=== PATIENT | female | born 1960 | race Caucasian/White ===

== ENCOUNTER 2024-01-18 21:06 | Inpatient (IN) | payer OTHER, SELFPAY ==
[2024-01-18 21:10] VITALS: BP 135/70; O2SAT 98
--- NOTE | 2024-01-18 21:10 | ECG_ITS ---
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
[2024-01-18 21:13] VITALS: BP 135/70; PULSE 75; TEMP 37; O2SAT 96; BMI 32.0
[2024-01-18 21:18] VITALS: PULSE 77
[2024-01-18 22:01] LABS: Bilirubin Urine NEGATIVE (NEGATIVE); Blood Urine MODERATE (NEGATIVE); Clarity Urine CLEAR (CLEAR); Color Urine YELLOW (YELLOW); Glucose Urine UA NEGATIVE (NEGATIVE); Ketones Urine NEGATIVE (NEGATIVE); Leukocyte Esterase Urine NEGATIVE (NEGATIVE); Nitrite Urine NEGATIVE (NEGATIVE); Protein Urine TRACE mg/dL (NEG/TRACE); Specific Gravity Urine 1.025 (1.005-1.025); Urobilinogen Urine 0.2 EU/dL (0.2-1.0); pH Urine 5.5 (5.0-9.0)
[2024-01-18 22:06] LABS: Urine Microscopic Indicated YES
[2024-01-18 22:14] VITALS: BP 116/63; PULSE 74; O2SAT 94
--- NOTE | 2024-01-18 22:15 | CT_ITS ---
[address] [address] Patient Name: AMANDA NORRIS MRN: [id number] date: 1960 Sex: F Assigned Patient Location: ER Current Patient Location: Accession/Order Number: [id number] Exam Date: 01/18/2024 23:09 Report Date: 01/18/2024 23:32 At the request of: MARK AG Procedure: CT abdomen pelvis w con EXAM: CT abdomen pelvis w con REASON FOR EXAM: Female, 63 years, diverticulitis. TECHNIQUE: Computed tomography of the abdomen and pelvis is performed in the axial projection from the lung bases to the pubic symphysis. Sagittal and coronal reconstructed images are performed. Dose reduction techniques were achieved by using automated exposure control and/or adjustment of mA and/or KVP according to patient size and/or use of iterative reconstruction technique. A total of 100 mL Omnipaque 300 IV contrast was given. Study was performed without oral contrast. COMPARISON: None. FINDINGS: Lung bases: The lung bases are clear. There is no pleural effusion. The visualized portions of the heart are unremarkable. Liver: The liver is normal. Gallbladder: The gallbladder is normal. Spleen: The spleen is normal. Pancreas: The pancreas is normal. Adrenal glands: The adrenal glands are normal bilaterally. Right kidney: The kidney is normal in size. Small renal cysts are present. There is no renal calculus or hydronephrosis. Left kidney: The kidney is normal in size. There is no renal calculus or hydronephrosis. Stomach: The stomach is normal. Small bowel: The small bowel is normal. Large bowel: There is extensive diverticulosis. There is focal thickening of the colon wall in the rectosigmoid region, with adjacent inflammatory changes consistent with acute diverticulitis. No abscess or free air. Appendix: The appendix is visualized, and is normal. Aorta: There are mild atherosclerotic calcifications of the abdominal aorta. IVC: The IVC is normal. Retroperitoneum: Normal retroperitoneum. Bladder: The bladder is normal. Pelvic organs: Normal uterus for patient age. Abdominal wall: Normal abdominal wall. Osseous structures: Normal bony structures. CT/CT abdomen pelvis w con IMPRESSION: Acute diverticulitis of the rectosigmoid region. No abscess or free air. No small bowel obstruction or acute renal pathology. Additional nonacute findings, as described above. Electronically authenticated by: EDGARDO ALCALA Date: 01/18/2024 23:32
--- NOTE | 2024-01-18 22:16 | ED.ABDPAIN1 ---
HPI - Abdominal Pain General Chief Complaint: Abdominal Pain Stated Complaint: low bp Time Seen by Provider: 01/18/24 22:04 Source: patient Mode of arrival: Wheelchair Limitations: no limitations History of Present Illness HPI narrative: past history of diverticulitis. Has pain LLQ and flank for 2 days. Seen today by her PCP and states antibiotics were prescribed . 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 Has vomited. States BP at home was low. States fever earlier today while in her doctor's office. no diarrhea Related Data Allergies Allergy/AdvReac Type Severity Reaction Status Date / Time amoxicillin AdvReac Mild Hives Verified 01/18/24 21:12 cefuroxime [From Ceftin] AdvReac Mild Hives Verified 01/18/24 21:12 morphine AdvReac Mild Redness of Verified 01/18/24 21:12 Skin Review of Systems ROS Status of ROS 10 or more systems reviewed and unremarkable except as noted in history and below PFSH PFSH Social History Little interest or pleasure in doing things: not at all Feeling down, depressed, or hopeless: not at all Exam Constitutional Vital Signs, click to edit/add: Last Vital Signs Temp 98.6 F 01/18/24 21:13 Pulse 74 01/18/24 22:14 Resp 18 01/18/24 22:14 BP 116/63 01/18/24 22:14 Pulse Ox 94 L 01/18/24 22:14 O2 Del Method Room Air 01/18/24 22:14 Common normals: no apparent distress, average body habitus, oriented x3, no limitations, healthy appearing, alert and well nourished [facility] Common normals: normocephalic and head/scalp atraumatic Eye Common normals: PERRL, EOMs intact bilaterally and conjunctivae normal Respiratory Common normals: normal respiratory effort, no retractions, no use of accessory muscles and clear to auscultation bilaterally Cardio Common normals: regular rate, regular rhythm, S1 normal heart sound and S2 normal heart sound GI Other: mod LLQ tenderness. no guarding Extremity Common normals: normal to inspection and full ROM Neuro Common normals: oriented x3 and moves all extremities Psych Appearance: grossly normal Course Vital Signs Vital signs: Vital Signs Temperature 98.6 F 01/18/24 21:13 Pulse Rate 75 01/18/24 21:13 Respiratory Rate 18 01/18/24 21:13 Blood Pressure 135/70 01/18/24 21:13 Pulse Oximetry 96 01/18/24 21:13 Oxygen Delivery Method Room Air 01/18/24 21:13 Temperature 98.6 F 01/18/24 21:13 Pulse Rate 74 01/18/24 22:14 Respiratory Rate 18 01/18/24 22:14 Blood Pressure 116/63 01/18/24 22:14 Pulse Oximetry 94 L 01/18/24 22:14 Oxygen Delivery Method Room Air 01/18/24 22:14 MDM - Abdominal Pain MDM Narrative Medical decision making narrative: patient presents with left lower quad pain and tenderness for 2 days. fever earlier today and hypotensive at home. BP normal here. CT with findings of acute diverticulitis. pain controlled with fentanyl. WBC elevated >15,000. Patient still in pain but better. Discussed with the hospitalist and accepted for obs admission Lab Data Labs: Lab Results 01/18/24 01/18/24 Range/Units 21:25 22:25 WBC 15.8 H (4.0-11.0) 10^3/uL RBC 4.15 L (4.20-5.40) 10^6/uL Hgb 12.6 (12.0-16.0) g/dL Hct 37.9 (36.0-48.0) % MCV 91.3 (81.0-99.0) fL MCH 30.4 (26.7-34.0) pg MCHC 33.2 (29.9-35.2) g/dL RDW 12.5 (11.0-15.0) % Plt Count 269 (150-450) 10^3/uL MPV 8.9 L (9.5-13.5) fL Neut % (Auto) 74.6 (43.0-75.0) % Lymph % (Auto) 16.0 L (20.5-60.0) % [place] % (Auto) 7.3 (1.7-12.0) % Eos % (Auto) 0.8 L (0.9-7.0) % Baso % (Auto) 0.6 (0.2-2.0) % Neut # (Auto) 11.8 H (1.4-6.5) 10^3/uL Lymph # (Auto) 2.5 (1.2-3.8) 10^3/uL [place] # (Auto) 1.2 H (0.3-0.8) 10^3/uL Eos # (Auto) 0.1 (0.0-0.7) 10^3/uL Baso # (Auto) 0.1 (0.0-0.1) 10^3/uL Abs Immat Gran (auto) 0.11 H (0.00-0.03) 10^3/uL Imm/Tot Granulo (auto) 0.7 H (0.0-0.5) % Sodium 141 (136-145) mmol/L Potassium 3.0 L (3.5-5.1) mmol/L Chloride 102 (98-107) mmol/L Carbon Dioxide 28.8 (21.0-32.0) mmol/L Anion Gap 13.2 BUN 36.0 H (7.0-18.0) mg/dL Creatinine 1.33 H (0.55-1.02) mg/dL Est GFR ( Amer) 49 L (>=60) Est GFR (Non-Af Amer) 41 L (>=60) BUN/Creatinine Ratio 27.1 Glucose 103 (74-106) mg/dL Lactate 0.5 (0.4-2.0) mmol/L Calcium 9.2 (8.5-10.1) mg/dL Total Bilirubin 0.6 (0.2-1.0) mg/dL AST 9 L (15-37) U/L ALT 20 (14-59) U/L Alkaline Phosphatase 71 (46-116) U/L Troponin I High Sens <4.0 L (4.0-51.3) pg/mL Total Protein 7.3 (6.4-8.2) g/dL Albumin 3.0 L (3.4-5.0) g/dL Globulin 4.3 g/dL Albumin/Globulin Ratio 0.7 Lipase 51.0 (16.0-77.0) U/L Urine Color Yellow (YELLOW) Urine Clarity Clear (CLEAR) Urine pH 5.5 (5.0-9.0) Ur Specific [place] 1.025 (1.005-1.025) Urine Protein Trace (NEG/TRACE) mg/dL Urine Glucose (UA) Negative (NEGATIVE) mg/dL Urine Ketones Negative (NEGATIVE) mg/dL Urine Occult Blood Moderate A (NEGATIVE) Urine Nitrite Negative (NEGATIVE) Urine Bilirubin Negative (NEGATIVE) Urine Urobilinogen 0.2 (0.2-1.0) EU/dL Ur Leukocyte Esterase Negative (NEGATIVE) Urine RBC 0-2 (0-2) #/HPF Urine WBC 0-2 A (NONE SEEN) #/HPF Ur Squamous Epith Cells Few A (NONE/RARE) #/LPF Urine Crystals None seen (None Seen) #/HPF Urine Bacteria Trace A (NONE SEEN) #/HPF Urine Casts Seen A (NONE SEEN) #/LPF Hyaline Casts Few Urine Mucus Trace A (NONE SEEN) Ur Culture Indicated? No Imaging Data Abdominal x-ray: Radiologist's impression: ITS Impressions Abdomen/Pelvis CT 01/18/24 22:15 IMPRESSION: Acute diverticulitis of the rectosigmoid region. No abscess or free air. No small bowel obstruction or acute renal pathology. Additional nonacute findings, as described above. Electronically authenticated by: EDGARDO ALCALA Date: 01/18/2024 23:32 Discharge Plan Discharge Chief Complaint: Abdominal Pain Clinical Impression: Diverticulitis Patient Disposition: Admitted as Observation
[2024-01-18 22:17] LABS: RBC Urine 0-2 #/HPF (0-2); WBC Urine 0-2 #/HPF (NONE SEEN)
[2024-01-18 22:18] LABS: Bacteria Urine TRACE #/HPF (NONE SEEN); Mucus Urine TRACE (NONE SEEN); Squamous Epithelial Cell Urine FEW #/LPF (NONE/RARE)
[2024-01-18 22:19] LABS: Cast Seen? SEEN #/LPF (NONE SEEN); Crystals Seen? None Seen #/HPF (None Seen); Hyaline Casts Urine FEW
[2024-01-18 22:20] LABS: Urine Culture Indicated NO
[2024-01-18 22:36] LABS: Basophils Absolute Auto 0.1 10^3/uL (0.0-0.1); Basophils Percent Auto 0.6 % (0.2-2.0); Eosinophils Absolute Auto 0.1 10^3/uL (0.0-0.7); Eosinophils Percent Auto 0.8 % (0.9-7.0); Hematocrit 37.9 % (36.0-48.0); Hemoglobin 12.6 g/dL (12.0-16.0); Immature Granulocytes Abs Auto 0.11 10^3/uL (0.00-0.03); Immature Granulocytes Pct Auto 0.7 % (0.0-0.5); Lymphocytes Absolute Auto 2.5 10^3/uL (1.2-3.8); Mean Corpuscular HGB Conc 33.2 g/dL (29.9-35.2); Mean Corpuscular Hemoglobin 30.4 pg (26.7-34.0); Mean Corpuscular Volume 91.3 fL (81.0-99.0); Mean Platelet Volume 8.9 fL (9.5-13.5); Monocytes Absolute Auto 1.2 10^3/uL (0.3-0.8); Monocytes Percent Auto 7.3 % (1.7-12.0); Neutrophils Absolute Auto 11.8 10^3/uL (1.4-6.5); Neutrophils Percent Auto 74.6 % (43.0-75.0); Platelet Count 269 10^3/uL (150-450); Red Blood Count 4.15 10^6/uL (4.20-5.40); Red Cell Distribution Width 12.5 % (11.0-15.0); White Blood Count 15.8 10^3/uL (4.0-11.0)
[2024-01-18] MEDS: 0.9 % SODIUM CHLORIDE 1,000 ML 999 ML IV (22:42)
[2024-01-18] MEDS: METRONIDAZOLE/SODIUM CHLORIDE 500 MG/100 ML PREMIX 100 MG IV (22:47)
[2024-01-18 22:51] LABS: Alanine Aminotransferase 20 U/L (14-59); Albumin Globulin Ratio 0.7; Alkaline Phosphatase 71 U/L (46-116); Anion Gap 13.2; Aspartate Amino Transferase 9 U/L (15-37); BUN Creatinine Ratio 27.1; Bilirubin Total 0.6 mg/dL (0.2-1.0); Calcium 9.2 mg/dL (8.5-10.1); Carbon Dioxide 28.8 mmol/L (21.0-32.0); Chloride 102 mmol/L (98-107); Estimated GFR (African America 49 (>=60); Estimated GFR (Non-African Ame 41 (>=60); Globulin 4.3 g/dL; Glucose 103 mg/dL (74-106); Lactate/Lactic Acid 0.5 mmol/L (0.4-2.0); Sodium 141 mmol/L (136-145); Total Protein 7.3 g/dL (6.4-8.2); Troponin I High Sensitivity <4.0 pg/mL (4.0-51.3)
[2024-01-18] MEDS: METOCLOPRAMIDE HCL 10 MG/2 ML VIAL IVP (23:29)
[2024-01-18] MEDS: FENTANYL CITRATE/PF 100 MCG/2 ML VIAL 50 MCG IV (23:30)
[2024-01-19] VITALS (11 sets, daily range): BP systolic 104–132; BP diastolic 55–80; PULSE 69–81; TEMP 36.6–37.1; O2SAT 93–98; BMI 32.6
[2024-01-19] MEDS: CIPROFLOXACIN IN 5 % DEXTROSE 400 MG/200 ML PREMIX 200 MG IV ×3 (00:16→21:37)
[2024-01-19] MEDS: POTASSIUM CHLORIDE IN 0.9%NACL 1,000 ML 125 ML IV (01:33)
[2024-01-19] MEDS: FENTANYL CITRATE/PF 100 MCG/2 ML VIAL 50 MCG IV ×4 (02:58→20:16)
[2024-01-19] MEDS: POTASSIUM CHLORIDE IN WATER 10 MEQ/100 ML PREMIX 100 MEQ IV ×4 (02:59→06:22)
[2024-01-19 05:59] LABS: Basophils Absolute Auto 0.1 10^3/uL (0.0-0.1); Basophils Percent Auto 0.4 % (0.2-2.0); Eosinophils Absolute Auto 0.1 10^3/uL (0.0-0.7); Eosinophils Percent Auto 0.5 % (0.9-7.0); Hematocrit 39.8 % (36.0-48.0); Hemoglobin 12.4 g/dL (12.0-16.0); Immature Granulocytes Abs Auto 0.05 10^3/uL (0.00-0.03); Immature Granulocytes Pct Auto 0.3 % (0.0-0.5); Lymphocytes Absolute Auto 1.8 10^3/uL (1.2-3.8); Lymphocytes Percent Auto 11.5 % (20.5-60.0); Mean Corpuscular HGB Conc 31.2 g/dL (29.9-35.2); Mean Corpuscular Hemoglobin 30.1 pg (26.7-34.0); Mean Corpuscular Volume 96.6 fL (81.0-99.0); Mean Platelet Volume 8.9 fL (9.5-13.5); Monocytes Percent Auto 6.5 % (1.7-12.0); Neutrophils Absolute Auto 12.7 10^3/uL (1.4-6.5); Neutrophils Percent Auto 80.8 % (43.0-75.0); Platelet Count 245 10^3/uL (150-450); Red Blood Count 4.12 10^6/uL (4.20-5.40); Red Cell Distribution Width 12.5 % (11.0-15.0); White Blood Count 15.7 10^3/uL (4.0-11.0)
[2024-01-19] MEDS: OMEPRAZOLE 40 MG CAPSULE.DR PO (05:59)
[2024-01-19 06:12] LABS: Alanine Aminotransferase 18 U/L (14-59); Albumin Globulin Ratio 0.7; Albumin Level 2.8 g/dL (3.4-5.0); Alkaline Phosphatase 67 U/L (46-116); Anion Gap 12.3; Aspartate Amino Transferase 10 U/L (15-37); BUN Creatinine Ratio 33.3; Bilirubin Total 0.6 mg/dL (0.2-1.0); Calcium 8.9 mg/dL (8.5-10.1); Carbon Dioxide 27.5 mmol/L (21.0-32.0); Chloride 106 mmol/L (98-107); Estimated GFR (African America >60 (>=60); Estimated GFR (Non-African Ame >60 (>=60); Glucose 105 mg/dL (74-106); Magnesium 1.6 mg/dL (1.8-2.4); Potassium 3.8 mmol/L (3.5-5.1); Sodium 142 mmol/L (136-145); Total Protein 6.8 g/dL (6.4-8.2)
--- NOTE | 2024-01-19 08:19 | CM.NOTE ---
Rounds made with Dr. Dumont, pt having increased abdominal tenderness and requiring IV pain medications.
--- NOTE | 2024-01-19 09:22 | P.HP_ITS ---
HPI H&P: HPI History of Present Illness Chief complaint: low bp DIVERTICULITIS Narrative: Patient was seen and evaluated in my office yesterday for increasing abdominal pain. She does have a history of diverticulitis. Also had some constipation issues recently. Exam at that time showed no rebound tenderness and no pain in left lower quadrant with palpation of right lower quadrant. Prescriptions were sent to pharmacy. Pain became worse so she presented to the emergency room. CT scan does document the diverticulitis but no rupture. When I saw patient up on the medical surgical floor she had recently been medicated, seems comfortable with her pain after the pain medication was given. Opioid HPI Opioid Management Most Recent Pain and Opioid Data: Last Pain Scale 6 01/19/24 09:43 Last Pain Assessment 01/19/24 09:43 Last ED Pain Assessment 01/19/24 00:07 Last MAR Pain Assessment 01/19/24 08:04 Last ORT Total Score 0 01/19/24 01:44 Last ORT Risk Category Low Risk 01/19/24 01:44 Review of Systems ROS Status of ROS 10 or more systems reviewed and unremark able except as noted in history and below PFSH PFSH Medical History (Updated 01/19/24 @ 01:59 by Debora Robledo RN) HTN (hypertension) ?I10 - Essential (primary) hypertension (ICD-10) Sebaceous cyst ?L72.3 - Sebaceous cyst (ICD-10) Mitral valve prolapse ?I34.1 - Nonrheumatic mitral (valve) prolapse (ICD-10) Migraine ?G43.909 - Migraine, unspecified, not intractable, without status migrainosus (ICD-10) TIA (transient ischemic attack) ?G45.9 - Transient cerebral ischemic attack, unspecified (ICD-10) Surgical History (Updated 01/19/24 @ 01:59 by Debora Robledo RN) Hx of breast reduction, elective ?Z98.890 - Other specified postprocedural states (ICD-10) H/O knee surgery ?Z98.890 - Other specified postprocedural states (ICD-10) Family History (Updated 01/19/24 @ 01:38 by Debora Robledo RN) Brother Family history of CHF (congestive heart failure) Family history of myocardial infarction Mother Family history of COPD (chronic obstructive pulmonary disease) Family history of hypertension Father Family history of cancer Family history of stroke Social History (Updated 01/19/24 @ 01:40 by Debora Robledo RN) Within the past year, how often did you have a drink containing alcohol: monthly or less Within the past year, how many standard drinks containing alcohol did you have on a typical day: 1 or 2 Within the past year, how often did you have six or more drinks on one occasion: less than monthly Total score: 1 Score interpretation: A score less than 3 is consistent with normal alcohol consumption. 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 [employer] Highest level of school completed/degree received: Bachelor's degree Are you now , , , , never or living with a partner: In a typical week, how many times do you talk on the telephone with family, friends, or neighbors: 3 or more times per week How often do you get together with friends or relatives: 3 or more times per week How often do you attend cheondoism or church services: 1-3 times per year Little interest or pleasure in doing things: not at all Feeling down, depressed, or hopeless: not at all Feel stressed/tense/nervous/anxious/difficulty sleeping: to some extent Do you think of yourself as: straight/heterosexual Gender Identity: female Meds Home Medications and Allergies Home Medications ?Medication ?Instructions ?Recorded ?Confirmed ?Type aspirin 81 mg capsule 81 mg PO DAILY 01/19/24 01/19/24 History carvedilol 12.5 mg tablet 12.5 mg PO Q12H 01/19/24 01/19/24 History hydrochlorothiazide 12.5 mg tablet 12.5 mg PO DAILY 01/19/24 01/19/24 History ibuprofen 800 mg tablet 800 mg PO Q8H PRN fever or pain 01/19/24 01/19/24 History lisinopril 40 mg tablet 40 mg PO DAILY 01/19/24 01/19/24 History pantoprazole 40 mg tablet,delayed 40 mg PO DAILY 01/19/24 01/19/24 History release semaglutide 1 mg/dose (4 mg/3 mL) 1 mg subcut .weekly 01/19/24 01/19/24 History subcutaneous pen injector (Ozempic) Allergies Allergy/AdvReac Type Severity Reaction Status Date / Time amoxicillin AdvReac Mild Hives Verified 01/18/24 21:12 cefuroxime [From Ceftin] AdvReac Mild Hives Verified 01/18/24 21:12 morphine AdvReac Mild Redness of Verified 01/18/24 21:12 Skin Exam Constitutional Vital Signs, click to edit/add: Last Vital Signs Temp 98.4 F 01/19/24 08:02 Pulse 74 01/19/24 08:02 Resp 18 01/19/24 08:02 BP 107/61 01/19/24 08:02 Pulse Ox 94 L 01/19/24 08:02 O2 Del Method Room Air 01/19/24 08:02 Documenting provider has reviewed patient's vital signs: yes Common normals: no apparent distress Chest Common normals: inspection of chest normal Respiratory Common normals: normal respiratory effort Cardio Common normals: regular rate and regular rhythm GI Common normals: Normal to inspection, nondistended, normoactive bowel sounds present and soft to palpation; tender Palpation: tender (Pain in left lower quadrant with palpation of right lower quadrant) Details: LLQ Other: Rebound tenderness now present, was not present on exam in office yesterday Neuro Common normals: oriented x3 and CN's II-XII intact bilaterally Results Labs Labs: Short CBC 01/18/24 01/19/24 Range/Units 22:25 05:44 WBC 15.8 H 15.7 H (4.0-11.0) 10^3/uL Hgb 12.6 12.4 (12.0-16.0) g/dL Hct 37.9 39.8 (36.0-48.0) % Plt Count 269 245 (150-450) 10^3/uL BMP 01/18/24 01/19/24 22:25 05:44 Sodium 141 142 Potassium 3.0 L 3.8 Chloride 102 106 Carbon Dioxide 28.8 27.5 BUN 36.0 H 26.0 H Creatinine 1.33 H 0.78 Glucose 103 105 Calcium 9.2 8.9 Liver Function 01/18/24 01/19/24 Range/Units 22:25 05:44 Total Bilirubin 0.6 0.6 (0.2-1.0) mg/dL AST 9 L 10 L (15-37) U/L ALT 20 18 (14-59) U/L Alkaline Phosphatase 71 67 (46-116) U/L Albumin 3.0 L 2.8 L (3.4-5.0) g/dL Urine 01/18/24 Range/Units 21:25 Urine Color Yellow (YELLOW) Urine Clarity Clear (CLEAR) Urine pH 5.5 (5.0-9.0) Ur Specific [place] 1.025 (1.005-1.025) Urine Protein Trace (NEG/TRACE) mg/dL Urine Glucose (UA) Negative (NEGATIVE) mg/dL Assessment and Plan Assessment and Plan (1) Diverticulitis: Plan Admission findings: Mild respiratory distress, leukocytosis, hypokalemia, acute kidney injury with creatinine 170% above baseline secondary to acute diverticulitis with acute abdomen progressed since yesterday's exam in the office with sepsis (respiratory distress, leukocytosis, source of infection diverticulitis) Acute diverticulitis-progressed from yesterday's exam in the office now with acute abdomen which she did not have yesterday. IV antibiotics today. Consider repeat CT scan tomorrow if symptoms become worse. Leukocytosis secondary to the above-monitor daily Hypokalemia-supplemented and improved Acute renal failure with creatinine 170% above baseline-creatinine 0.78 is her baseline, was 1.33 on admission. Hypertension-continue with home medications Morbid obesity-diet management GERD-continue with home medications Admission status: Patient evaluated in office yesterday with abdominal findings consistent with diverticulitis without rupture, she did not have acute abdominal findings yesterday, no rebound tenderness yesterday, no pain in the left lower quadrant with palpation of right lower quadrant, with now present today, acute diverticulitis, she has been n.p.o. overnight, requiring narcotic pain medication for pain control, medically necessary treatment will span 2 midnights. Inpatient status.
[2024-01-19] MEDS: ASPIRIN 81 MG TAB.CHEW PO (09:34)
[2024-01-19] MEDS: LACTATED RINGER'S SOLUTION 1,000 ML 100 ML IV ×2 (09:34→20:16)
[2024-01-19] MEDS: METRONIDAZOLE/SODIUM CHLORIDE 500 MG/100 ML PREMIX 100 MG IV ×2 (09:35→16:09)
[2024-01-19 10:04] LABS: Creatine Kinase 30 U/L (26-192); Creatine Kinase MB <0.50 ng/mL (<=3.60); Troponin I High Sensitivity 5.9 pg/mL (4.0-51.3)
[2024-01-19] MEDS: CARVEDILOL 12.5 MG TABLET PO (20:16)
[2024-01-20] MEDS: METRONIDAZOLE/SODIUM CHLORIDE 500 MG/100 ML PREMIX 100 MG IV ×2 (00:13→08:39)
[2024-01-20 03:42] VITALS: BP 112/68; PULSE 67; TEMP 36.6; O2SAT 96
[2024-01-20] MEDS: OMEPRAZOLE 40 MG CAPSULE.DR PO (06:06)
[2024-01-20 06:29] LABS: Basophils Absolute Auto 0.1 10^3/uL (0.0-0.1); Basophils Percent Auto 1.1 % (0.2-2.0); Eosinophils Absolute Auto 0.1 10^3/uL (0.0-0.7); Eosinophils Percent Auto 1.6 % (0.9-7.0); Hematocrit 36.8 % (36.0-48.0); Hemoglobin 11.9 g/dL (12.0-16.0); Immature Granulocytes Abs Auto 0.04 10^3/uL (0.00-0.03); Immature Granulocytes Pct Auto 0.5 % (0.0-0.5); Lymphocytes Absolute Auto 1.9 10^3/uL (1.2-3.8); Lymphocytes Percent Auto 23.7 % (20.5-60.0); Mean Corpuscular HGB Conc 32.3 g/dL (29.9-35.2); Mean Corpuscular Hemoglobin 29.7 pg (26.7-34.0); Mean Corpuscular Volume 91.8 fL (81.0-99.0); Mean Platelet Volume 8.9 fL (9.5-13.5); Monocytes Absolute Auto 0.6 10^3/uL (0.3-0.8); Monocytes Percent Auto 7.7 % (1.7-12.0); Neutrophils Absolute Auto 5.3 10^3/uL (1.4-6.5); Neutrophils Percent Auto 65.4 % (43.0-75.0); Platelet Count 266 10^3/uL (150-450); Red Blood Count 4.01 10^6/uL (4.20-5.40); Red Cell Distribution Width 12.1 % (11.0-15.0); White Blood Count 8.1 10^3/uL (4.0-11.0)
[2024-01-20 06:38] LABS: Calcium 9.2 mg/dL (8.5-10.1); Carbon Dioxide 26.7 mmol/L (21.0-32.0); Chloride 104 mmol/L (98-107); Estimated GFR (African America >60 (>=60); Estimated GFR (Non-African Ame >60 (>=60); Glucose 101 mg/dL (74-106); Potassium 3.7 mmol/L (3.5-5.1); Sodium 142 mmol/L (136-145)
[2024-01-20 08:00] VITALS: BP 146/89; PULSE 66; TEMP 36.7; O2SAT 94
--- NOTE | 2024-01-20 08:00 | P.DS_ITS ---
DS: Providers Provider Date of admission: 01/19/24 09:57 Primary care physician: Rafael Dumont MD DS: Diagnosis Discharge Diagnosis (1) Diverticulitis: Plan Admission findings: Mild respiratory distress, leukocytosis, hypokalemia, acute kidney injury with creatinine 170% above baseline secondary to acute diverticulitis with acute abdomen progressed since yesterday's exam in the office with sepsis (respiratory distress, leukocytosis, source of infection diverticulitis) Acute diverticulitis-improving but not resolved with time of discharge Leukocytosis secondary to the above-resolved at the time of discharge Hypokalemia-resolved Ears: Acute renal failure with creatinine 170% above baseline-creatinine 0.78 is her baseline, was 1.33 on admission.-Resolved with time of discharge Hypertension-stable at the time of discharge Morbid obesity-diet management GERD-continue with home medications Admission status: Patient evaluated in office yesterday with abdominal findings consistent with diverticulitis without rupture, she did not have acute abdominal findings yesterday, no rebound tenderness yesterday, no pain in the left lower quadrant with palpation of right lower quadrant, with now present today, acute diverticulitis, she has been n.p.o. overnight, requiring narcotic pain medication for pain control, medically necessary treatment will span 2 midnights. Inpatient status. ? DS: Summary Hospital Course Hospital Course: Patient was seen and evaluated in my office the day prior to admission. Placed on Cipro and Flagyl. At that visit she did not have any rebound tenderness and she did not have any pain in the left lower quadrant with palpation of the right lower quadrant. Her pain progressed and presented to the emergency room. In the emergency room found have significant leukocytosis with white blood cell count over 15,000, acute renal failure with creatinine 170% above baseline, significant change in her physical examination with rebound tenderness, pain in left lower quadrant palpation of right lower quadrant. CT scan did not confirm ruptured diverticulitis. With the new findings and deteriorate condition, she was admitted to the hospital for IV antibiotics. Placed inpatient status. Suspected patient would last 3 to 4 days for IV antibiotics. On the day of discharge over she is much improved. She has minimal rebound tenderness, much improved from previous day, and she no longer has pain in the left lower quadrant with palpation of the right lower quadrant. At this point we will give her IV doses in this morning. And discharged to home on oral antibiotics. Medications to this. Follow-up with me in the office in 2 days. Patient made improvement happened more rapidly than expected based on progression of symptoms for 1 day for the next on first day of admission. Status at Discharge Overall status at discharge: patient is not back to baseline Time Spent with Patient Time attestation: Total time spent providing and/or coordinating discharge services: Time spent: greater than 30 minutes Exam Constitutional Vital Signs, click to edit/add: Last Vital Signs Temp 97.8 F 01/20/24 03:42 Pulse 67 01/20/24 03:42 Resp 18 01/20/24 03:42 BP 112/68 01/20/24 03:42 Pulse Ox 96 01/20/24 03:42 O2 Del Method Room Air 01/20/24 03:42 Documenting provider has reviewed patient's vital signs: yes Common normals: no apparent distress Chest Common normals: inspection of chest normal Respiratory Common normals: normal respiratory effort Cardio Common normals: regular rate and regular rhythm GI Common normals: Normal to inspection, nondistended, normoactive bowel sounds present and soft to palpation; tender Palpation: tender (Mini rebound tenderness, no pain in left lower quadrant with palpation of R) Details: LLQ Other: Rebound tenderness now present, was not present on exam in office yesterday Neuro Common normals: oriented x3 and CN's II-XII intact bilaterally DS: Data Data Completed and Pending Labs on day of discharge: Labs from last 24 hours 01/20/24 01/19/24 05:45 05:44 WBC 8.1 RBC 4.01 L Hgb 11.9 L Hct 36.8 MCV 91.8 MCH 29.7 MCHC 32.3 RDW 12.1 Plt Count 266 MPV 8.9 L Neut % (Auto) 65.4 Lymph % (Auto) 23.7 [place] % (Auto) 7.7 Eos % (Auto) 1.6 Baso % (Auto) 1.1 Neut # (Auto) 5.3 Lymph # (Auto) 1.9 [place] # (Auto) 0.6 Eos # (Auto) 0.1 Baso # (Auto) 0.1 Abs Immat Gran (auto) 0.04 H Imm/Tot Granulo (auto) 0.5 Sodium 142 Potassium 3.7 Chloride 104 Carbon Dioxide 26.7 Anion Gap 15.0 BUN 18.0 Creatinine 0.62 Est GFR ( Amer) >60 Est GFR (Non-Af Amer) >60 BUN/Creatinine Ratio 29.0 Glucose 101 Calcium 9.2 Total Creatine Kinase 30 CK-MB (CK-2) <0.50 Troponin I High Sens 5.9 Discharge Plan Discharge Disposition: Home, Self-Care Discharge Medications: New ciprofloxacin HCl [Cipro] 500 mg tablet 500 mg PO Q12H Qty: 20 0RF metronidazole 500 mg tablet 500 mg PO Q8H Qty: 30 0RF Continued carvedilol 12.5 mg tablet 12.5 mg PO Q12H ibuprofen 800 mg tablet 800 mg PO Q8H PRN (Reason: fever or pain) pantoprazole 40 mg tablet,delayed release (DR/EC) 40 mg PO DAILY lisinopril 40 mg tablet 40 mg PO DAILY hydrochlorothiazide 12.5 mg tablet 12.5 mg PO DAILY Ozempic 1 mg/dose (4 mg/3 mL) pen injector 1 mg SUBCUT .weekly aspirin 81 mg capsule 81 mg PO DAILY Print Language: Portuguese Forms: Portal Instructions
[2024-01-20] MEDS: ASPIRIN 81 MG TAB.CHEW PO (08:38)
[2024-01-20] MEDS: CARVEDILOL 12.5 MG TABLET PO (08:38)
[2024-01-20] MEDS: FENTANYL CITRATE/PF 100 MCG/2 ML VIAL 50 MCG IV (08:38)
[2024-01-20] MEDS: LISINOPRIL 20 MG TABLET 40 MG PO (08:38)
[2024-01-20] MEDS: CIPROFLOXACIN IN 5 % DEXTROSE 400 MG/200 ML PREMIX 200 MG IV (10:02)
[2024-01-20 10:43] VITALS: O2SAT 94
--- NOTE | 2024-01-22 13:55 | CM.DCFOLLOWU ---
Person spoke with:patient How are you feeling? well How is your pain?none Did you understand your discharge instructions?yes Do you have any questions about your discharge instructions?no Were you given any prescriptions at discharge?yes Were you able to get your prescriptions filled?yes Do you understand how to take your medications as ordered?yes Do you have any questions about your follow up appointment and do you plan to keep your follow up appointment?no questions, had follow up with Dr. Dumont today Is there anything else that you would like to discuss? no Questions/Comments/Concerns/Other:none
== END 2024-01-20 12:22 | disposition home or self-care (01) | DRG 872 ==
LOC: ER 01-19 00:45 → MS 01-19 01:21
PROVIDERS: Registered Nurse; Admitting Provider Family Medicine; Emergency Provider Internal Medicine; PCP Family Medicine; Visit Provider Family Medicine
DX: A41.9 Sepsis, unspecified organism (principal); K57.32 Diverticulitis of large intestine without perforation or abscess without bleeding; N17.9 Acute kidney failure, unspecified; E87.6 Hypokalemia; I10 Essential (primary) hypertension; E66.01 Morbid (severe) obesity due to excess calories; K21.9 Gastro-esophageal reflux disease without esophagitis; R06.03 Acute respiratory distress; Z68.32 Body mass index [BMI] 32.0-32.9, adult; Z86.73 Personal history of transient ischemic attack (TIA), and cerebral infarction without residual deficits; Z98.890 Other specified postprocedural states; Z79.899 Other long term (current) drug therapy; Z79.82 Long term (current) use of aspirin
CPT/HCPCS: 36415; 74177; 80048; 80053; 81001; 82550; 82553; 83605; 83690; 83735; 84484; 85025; 93005; 94667; 94668; 94761; 96365; 96366; 96367; 96368; 96375; 96376; 99285; J0744; J1836; J2765; J3010; J3480; Q9967

== ENCOUNTER 2024-12-25 07:07 | Outpatient (OUT) | payer OTHER, SELFPAY ==
--- OUTSIDE RECORDS SUMMARY | 2024-12-05 06:13 | XMS_ITS ---
Author Organization [facility] in [place] Address [address] [place] [address] Care Team Providers Care Jewelry Polisher Name Role Phone Les Dumont Primary Care Provider REASON FOR VISIT urine cx Encounters Encounter Location Date Provider Diagnosis [facility] [address] [place] [address] 12/05/2024 Les Dumont UTI (urinary tract infection) N39.0 Assessments Encounter Date Diagnosis (ICD Code) Assessment Notes Treatment Notes Treatment Clinical Notes Section Notes 12/05/2024 UTI (urinary tract infection) (ICD-10 - N39.0) Plan Of Treatment Pending Test Test Name Order Date UA (URINALYSIS, COMPLETE) 12/05/2024 CULTURE URINE 12/05/2024 Progress Notes * JRDidier CAMILOsohail ADOB: 3 (64 yo F)Acc No.[id number]:12/05/2024 Patient: Nancy LYN :1960 A ge:64 Y S ex:Female Address:[address] [place] [address], [phone] Subjective: * Chief Complaints: * U rine cx * Medical History: * Surgical History: * Hospitalization/Major Diagno stic Procedure: * Medications: Objective: * Vitals: * Physical Examination: Assessment: * Assessment: 1. U TI (urinary tract infection) - N39.0 (Primary) Plan: * Treatment: * Procedure Codes: * true * Date: Generated for Printi ng/Renard/Saad on: 0 12/25/2024 07:11 AM EDT
--- OUTSIDE RECORDS SUMMARY | 2024-12-25 07:11 | XMS_ITS | Clinical Summary ---
Author Organization [facility] Address [address] [place] [address] Care Team Providers Care Web Marketing Intern Name Role Phone Rafael Dumont MD Primary Care Provider [phone] Allergies No known active allergies Medications methylPREDNISol one (Medrol Dospak) 4 MG tabletsIndicati ons:DJD (degenerative joint disease), ankle and foot, left Follow schedule on MEDROL PACK package instructions to be used as directed 21 tablet Active Active Problems No known active problems Encounters Date Type Department Care Team Description 11/20/2024 4:10 PM EDT Office Visit [facility] [address] [place] [address] Joseph Cobian, CHRISTO Capsulitis of metatarsophalangeal (MTP) joint of left foot (Primary Dx); Bone spur of left foot; DJD (degenerative joint disease), ankle and foot, left 11/20/2024 Bamboo flowsheet [facility] [address] [place] [address] Joseph Cobian DPM 11/20/2024 Travel 11/13/2024 Abstract [facility] [address] [place] [address] Joseph Cobian DPM 11/06/2024 3:50 PM EDT Office Visit [facility] [address] [place] [phone] Joseph Cobian DPM DJD (degenerative joint disease), ankle and foot, left (Primary Dx); Bone spur of left foot; Capsulitis of metatarsophalangeal (MTP) joint of left foot 11/06/2024 Telephone [facility] [address] [place] [address] Joseph Cobian DPM Casting For Braces Or Orthotics 11/06/2024 Bamboo flowsheet [facility] [address] [place] [address] Joseph Cobian DPM 11/05/2024 Travel from Last 3 Months Family History Relation Name Status Comments Father Mother Alive Social History Tobacco Use Types Packs/Day Years Used Date Smoking Tobacco: Never Smokeless Tobacco: Never Tobacco Cessation:Counseling Given: Yes Alcohol Use Standard Drinks/Week Comments Yes 0 (1 standard drink = 0.6 oz pur e alcohol) Comments Unknown Sex and Gender Information Value Date Recorded Sex Assigned at Not on file Legal Sex Female 7:21 PM EDT Gender Identity Not on file Sexual Orientation Not on file Last Filed Vital Signs Vital Sign [place] Time Taken Comments Blood Pressure 120/74 06/29/2021 12:00 PM EST Pulse - - Temperature - - Respiratory Rate 18 11/20/2024 4:21 PM EDT Oxygen Saturation - - Inhaled Oxygen Concentration - - Weight 97.5 kg (215 lb) 11/20/2024 4:21 PM EDT Height 170.2 cm (5' 7 ) 11/20/2024 4:21 PM EDT Body Mass Index 33.67 11/20/2024 4:21 PM EDT Plan of Treatment Health Maintenance Due Date Last Done Comments CT Colonography 1962 Colonoscopy 1962 Colorectal Cancer Screening 1962 FIT-DNA 1962 FIT 1962 FOBT 1962 Sigmoidoscopy 1962 Pap Smear 1983 Cervical Cancer Screening 1992 HPV/Cotest 1992 Mammogram 12/01/2021 12/01/2020, 11/19/2020 Influenza Vaccine (#1) 2025 02/26/2024, 2022, 01/14/2020 Procedures Procedure Name Priority Date/Time Associated Diagnosis Comments BI MAMMOGRAM DIAGNOSTIC RIGHT Routine 12/01/2020 from Last 3 Months or Most Recently Relevant to Health Maintenance Results * Right diagnostic mammogram (12/01/2020) Anatomical Region Laterality Modality Breast Right Mammography Impressions 12/01/2020 12:00 AM EDT NO MAMMOGRAPHIC EVIDENCE OF MALIGNANCY. ROUTINE FOLLOW-UP IS RECOMMENDED IN ONE YEAR. RESULT CODE: 2 Benign Findings(s) DENSITY CODE: 2 (approximately 25-50% glandular) FOLLOW UP: 1YR The false-negative rate of mammography is approximately 10-percent. Management of a palpable abnormality must be based on clinical grounds. Patient was entered into a reminder system with a target due date for the next mammogram. Impression dictated by: Danette Granger M.D.12/01/2020 7:55 AM Dictation Location: [facility] Transcribed By: [facility] 12/01/20 0755 Dictated By: Danette Granger MD 12/01/20 0749 Signed By: <Electronically signed by MD Danette Granger in [place]> 12/01/20 0755 Narrative 12/01/2020 12:00 AM EDT PERFORMED AT [facility] LOCATION:[address] [place] [address] [place] [address] Mammography Report Signed Patient: Nancy Hooper MR#: [id number] 68 : 1960 Acct:[id number] Age/Sex: 60 / F ADM Date: 12/01/20 Loc: [place] Room: Type: [facility] Attending Dr: Brannon Winter DO Ordering Provider: Brannon Winter DO Date of Service: 12/01/20 MM/MM special view RT w/CAD: ABN EDOUARD Copies to: MD Brannon Zelaya DO CLINICAL DATA: Follow-up nodular asymmetry. Previous breast reduction.. RIGHT DIAGNOSTIC MAMMOGRAMS - FULL FIELD DIGITAL WITH TOMOSYNTHESIS AND CAD Tomosynthesis true lateral and spot compression craniocaudal and mediolateral oblique views of the right breast were obtained using low-dose digital technique. Comparison is made to a prior study from November 19, 2020. This examination was reviewed with the aid of CAD. There are scattered fibroglandular densities. The nodular asymmetry at the superior central breast on the previous exam is not reproduced. Mild postoperative scarring as well as some benign calcifications are present. There are no suspicious masses, typically malignant calcifications or architectural distortion. MM/MM special view RT w/CAD Procedure Note CONVERSION, GENERIC - 11/18/2022 PERFORMED AT [facility] LOCATION:[address] [place] [address] [place] [address] Mammography Report Signed Patient: Nancy Hooper AMR#: [id number] 68 : 1960Acct:[id number] Age/Sex: 60 / FADM Date: 12/01/20 Loc: [place] Room:Type: [facility] Attending Dr: Brannon Winter DO Ordering Provider: Brannon Winter DO Date of Service: 12/01/20 MM/MM special view RT w/CAD: ABN EDOUARD Copies to: MD Brannon Zelaya DO CLINICAL DATA: Follow-up nodular asymmetry. Previous breast reduction.. RIGHT DIAGNOSTIC MAMMOGRAMS - FULL FIELD DIGITAL WITH TOMOSYNTHESIS ANDCAD Tomosynthesis true lateral and spot compression craniocaudal andmediolateral oblique views of the right breast were obtained using low-dose digital technique. Comparisonis made to a prior study from November 19, 2020. This examination was reviewed with the aid of CAD. There are scattered fibroglandular densities. The nodular asymmetry atthe superior central breast on the previous exam is not reproduced. Mild postoperative scarring aswell as some benign calcifications are present. There are no suspicious masses, typicallymalignant calcifications or architectural distortion. MM/MM special view RT w/CAD IMPRESSION: NO MAMMOGRAPHIC EVIDENCE OF MALIGNANCY. ROUTINE FOLLOW-UP IS RECOMMENDED IN ONE YEAR. RESULT CODE: 2 Benign Findings(s) DENSITY CODE: 2 (approximately 25-50% glandular) FOLLOW UP: 1YR The false-negative rate of mammography is approximately 10-percent. Management of a palpable abnormality must be based on clinical grounds. Patient was entered into a reminder system with a target due date for thenext mammogram. Impression dictated by: Danette Granger M.D.12/01/2020 7:55 AM Dictation Location: [facility] Transcribed By: [facility] 12/01/20 0755 Dictated By: Danette Granger MD 12/01/20 0749 Signed By: <Electronically signed by MD Danette Granger in [place]> 12/01/20 0755 Brannon Winter DO IMG BI PROCEDURES Final Resu lt from Last 3 Months or Most Recently Relevant to Health Maintenance Insurance [employer] Care Teams Web Marketing Intern Relationship Specialty Start Date End Date Rafael Dumont MD [address] [place] [address] PCP - General Family Medicine 11/06/24
--- OUTSIDE RECORDS SUMMARY | 2024-12-25 07:11 | XMS_ITS | Encounter Summary ---
Author Organization [facility] Address [address] [place] [address] Phone Care Team Providers Care Glove Wrapper Name Role Phone Rafael Dumont MD Primary Care Provider [phone] Encounter Details Date Type Department Care Team (Late st Contact Info) Description 03/14/2023 Scanned Document [facility] [address] [facility] [address] [place] [phone] Luan Garcia MD [address] [facility] [address] [place] [address] [place] [address] Social History Tobacco Use Types Packs/Day Years Used Date Smoking Tobacco: Never Assessed Comments Unknown Sex and Gender Information Value Date Recorded Sex Assigned at Not on file Legal Sex Female 9:36 AM EST Gender Identity Not on file Sexual Orientation Not on file COVID-19 Exposure Response Date Recorded In the last 10 days, have yo u been in contact with someone who was confirmed or suspected to have Coronavirus/COVID-19? No / Unsure 03/14/2023 11:48 AM EDT documented as of this encounter Plan of Treatment Not on file documented as of this encounter Visit Diagnoses Not on filedocumented in this encounter Care Teams Glove Wrapper Relationship Specialty Start Date End Date Rafael Dumont MD [address] [facility] [place] [address] PCP - General 05/15/99 documented as of this encounter
--- OUTSIDE RECORDS SUMMARY | 2024-12-25 07:11 | XMS_ITS | Clinical Summary ---
Author Organization [facility] Address [address] [place] [address] Care Team Providers Care Warehouse Shipping Associate Name Role Phone Rafael Dumont MD Primary Care Provider [phone] Allergies Active Allergy Reactions Criticality Noted Date Comments Amoxicillin 06/17/2008 Cefuroxime Axetil 06/17/2008 Erythromycin 06/17/2008 Levofloxacin 06/17/2008 Social History Tobacco Use Types Packs/Day Years Used Date Smoking Tobacco: Never Alcohol Use Standard Drinks/Week Comments Not Asked 0 (1 standard drink = 0.6 oz pur e alcohol) Comments No Sex and Gender Information Value Date Recorded Sex Assigned at Not on file Legal Sex Female 8:18 AM EST Gender Identity Not on file Sexual Orientation Not on file Last Filed Vital Signs Vital Sign Reading Time Taken Comments Blood Pressure - - Pulse - - Temperature - - Respiratory Rate - - Oxygen Saturation - - Inhaled Oxygen Concentration - - Weight 99.8 kg (220 lb) 06/17/2008 2:47 PM EST Height 172.7 cm (5' 8 ) 06/17/2008 2:47 PM EST Body Mass Index 33.45 06/17/2008 2:47 PM EST Plan of Treatment Health Maintenance Due Date Last Done Comments Anxiety Screening 1980 Depression Screening 1980 HIV Screening 1980 Hepatitis C Screening 1980 DTaP,Tdap,Td Vaccine (1 - Tdap) 1981 Cervical Cancer Screening [address] Colonography 2007 Cologuard (FIT-DNA) 2007 Colonoscopy 2007 Colorectal Cancer Screening 2007 Diabetes Screening 2007 Fecal Occult Blood 2007 Lipid Screening 2007 Sigmoidoscopy 2007 Pneumococcal Vaccine: 50+ (1 of 1 - PCV) 2012 Shingrix Vaccine (1 of 2) 2012 Influenza Vaccine (#1) 2025 RSV Vaccine (1 - 1-dose 75+ series) 2037 Insurance [facility] PPO Member Subscriber Plan / Payer (Ef fective 2014-Present) Name:Amanda Hooper Relation to Subscriber:Self Name:Amanda Hooper Payer ID:Not on file Type:PPO Address: [place] [phone] Care Teams Warehouse Shipping Associate Relationship Specialty Start Date End Date Rafael Dumont MD PCP - General 06/12/08
--- OUTSIDE RECORDS SUMMARY | 2024-12-25 07:11 | XMS_ITS | Encounter Summary ---
Author Organization [facility] Address [address] [place] [phone] Phone Care Team Providers Care Processing Manager Name Role Phone Rafael Dumont MD Primary Care Provider [phone] Encounter Details Date Type Department Care Team (Late st Contact Info) Description 02/14/2023 Scanned Document [facility] [address] [place] [phone] Scanning, Generic Provider Social History Tobacco Use Types Packs/Day Years [...] suspected to have Coronavirus/COVID-19? No / Unsure 02/14/2023 8:27 AM EDT documented as of this encounter Plan of Treatment Not on file documented as of this encounter Procedures Procedure Name Priority Date/Time Associated Diagnosis Comments OUTSIDE CARDIOLOGY SCAN 02/14/2023 documented in this encounter Results * OUTSIDE CARDIOLOGY SCAN (02/14/2023) Narrative 02/14/2023 Ordered by an unspecified provider. us Generic Provider Scanning OUTSIDE SCAN Final Result documented in this encounter Visit Diagnoses Not on filedocumented in this encounter Care Teams Processing Manager Relationship Specialty Start Date End Date Rafael Dumont MD [address] [place] [address] PCP - General 05/15/99 documented as of this encounter
--- OUTSIDE RECORDS SUMMARY | 2024-12-25 07:12 | XMS_ITS | Patient Health Record ---
Author Organization [facility] [place] Address [address] [place] [address] Care Team Providers Care Pull Over Name Role Phone Les Salamanca Primary Care Provider Allergies Allergen (clinical drug ingredient) Drug/Non Drug Allergy documented on EMR Reaction Allergy Type Onset Date Status sulfamethoxazole / trimethoprim Bactrim rash Drug Allergy Active Ceftin hives Drug Allergy Active topiramate Topamax Multiple Side Effects Drug Allergy Active Vibramycin hives Drug Allergy Active Flu Virus Vaccine hives Drug Allergy Active erythromycin Erythromycin hives Drug Allergy A ctive morphine Morphine swelling Drug Allergy Active Penicillin hives Drug Allergy Active Results Component Value Reference Range Notes CBC AUTO DIFF Reviewed date:01/21/2024 07:52:54 PM Interpretation: Performing Lab: Notes/Report: [facility] , White Blood Count 15.7 4.0-11.0 10 3/uL Red Blood Count 4.12 4.20-5.40 10 6/uL Hemoglobin 12.4 12.0-16.0 g/dL Hematocrit 39.8 36.0-48.0 % Mean Corpuscular Volume 96.6 81.0-99.0 fL Mean Corpuscular Hemoglobin 30.1 26.7-34.0 pg Mean Corpuscular HGB Conc 31.2 29.9-35.2 g/dL Red Cell Distribution Width 12.5 11.0-15.0 % Platelet Count 245 150-450 10 3/uL Mean Platelet Volume 8.9 9.5-13.5 fL Neutrophils Percent Auto 80.8 43.0-75.0 % Lymphocytes Percent Auto 11.5 20.5-60.0 % Monocytes Percent Auto 6.5 1.7-12.0 % Eosinophils Percent Auto 0.5 0.9-7.0 % Basophils Percent Auto 0.4 0.2-2.0 % Immature Granulocytes Pct Auto 0.3 0.0-0.5 % Neutrophils Absolute Auto 12.7 1.4-6.5 10 3/uL Lymphocytes Absolute Auto 1.8 1.2-3.8 10 3/uL Monocytes Absolute Auto 1.0 0.3-0.8 10 3/uL Eosinophils Absolute Auto 0.1 0.0-0.7 10 3/uL Basophils Absolute Auto 0.1 0.0-0.1 10 3/uL Immature Granulocytes Abs Auto 0.05 0.00-0.03 10 3/uL Performing Lab: see note - [facility] CARDIAC ILSA 3-6 Reviewed date:01/21/2024 07:52:54 PM Interpretation: Performing Lab: Notes/Report: [facility] , Creatine Kinase 30 26-192 U/L Creatine Kinase MB <0.50 <=3.60 ng/mL Troponin I High Sensitivity 5.9 4.0-51.3 pg/mL PERCENTILE OF cTnI DISTRIBUTION IN A REFERENCE POPULATION, REFERENCE LIMIT (URL) OF TROPONIN, DEFINED THE 99TH 99TH PERCENTILE = 51.4 PG/ML NOTE: HIGH-SENSITIVITY TROPONIN ASSAY IS NOT INTENDED TO BE CUT-OFF POINTS HAVE BEEN ESTABLISHED BASED ON THE FOURTH UNIVERSAL DEFINITION OF MYOCARDIAL INFARCTION. THE UPPER DIAGNOSIS. WITH OTHER DIAGNOSTIC AND CLINICAL INFORMATION. HAS BEEN CONFIRMED THE DECISION THRESHOLD FOR IA USED IN ISOLATION BUT SHOULD BE INTERPRETED IN CONJUNCTION Performing Lab: see note - [facility] LB CT abdomen pelvis w con Reviewed date:01/21/2024 07:52:55 PM Interpretation: Performing Lab: Notes/Report: Source Facility: [facility] [place] [address] [place] [address] CT Scan Report Signed Patient: NANCY NORRIS MR#: [id number] : 1960 Acct:[id number] Age/Sex: 63 / F ADM Date: 01/18/24 Loc: ER Attending Dr: Ordering Physician: Bryce Ag Date of Service: 01/18/24 Procedure(s): CT abdomen pelvis w con Accession Number(s): [id number] cc: Cecilio Salamanca M.D. [place] [id number] Patient Name: NANCY NORRIS MRN: [id number] date: 1960 Sex: F Assigned Patient Location: ER Current Patient Location: ER Accession/Order Number: [id number] Exam Date: 01/18/2024 23:09 Report Date: 01/18/2024 23:32 At the request of: BRYCE AG Procedure: CT abdomen pelvis w con EXAM: CT abdomen pelvis w con REASON FOR EXAM: Female, 63 years, diverticulitis. TECHNIQUE: Computed tomography of the abdomen and pelvis is performed in the axial projection from the lung bases to the pubic symphysis. Sagittal and coronal reconstructed images are performed. Dose reduction techniques were achieved by using automated exposure control and/or adjustment of mA and/or KVP according to patient size and/or use of iterative reconstruction technique. A total of 100 mL Omnipaque 300 IV contrast was given. Study was performed without oral contrast. COMPARISON: None. FINDINGS: Lung bases: The lung bases are clear. There is no pleural effusion. The visualized portions of the heart are unremarkable. Liver: The liver is normal. Gallbladder: The gallbladder is normal. Spleen: The spleen is normal. Pancreas: The pancreas is normal. Adrenal glands: The adrenal glands are normal bilaterally. Right kidney: The kidney is normal in size. Small renal cysts are present. There is no renal calculus or hydronephrosis. Left kidney: The kidney is normal in size. There is no renal calculus or hydronephrosis. Stomach: The stomach is normal. Small bowel: The small bowel is normal. Large bowel: There is extensive diverticulosis. There is focal thickening of the colon wall in the rectosigmoid region, with adjacent inflammatory changes consistent with acute diverticulitis. No abscess or free air. Appendix: The appendix is visualized, and is normal. Aorta: There are mild atherosclerotic calcifications of the abdominal aorta. IVC: The IVC is normal. Retroperitoneum: Normal retroperitoneum. Bladder: The bladder is normal. Pelvic organs: Normal uterus for patient age. Abdominal wall: Normal abdominal wall. Osseous structures: Normal bony structures. CT/CT abdomen pelvis w con IMPRESSION: Acute diverticulitis of the rectosigmoid region. No abscess or free air. No small bowel obstruction or acute renal pathology. Additional nonacute findings, as described above. Electronically authenticated by: GLENN ALCALA Date: 01/18/2024 23:32 Dictated By: Glenn Alcala M.D. Signed By: 01/18/245 DD/ 31 TD/TT: [employer] President Of Software Development: [place] [address] CT Scan Report Signed Patient: MELISSA NORRIS MR#: [id number] : 1960 Acct:[id number] Age/Sex: 63 / F ADM Date: 01/18/24 Loc: ER Attending Dr: Ordering Physician: Bryce Ag Date of Service: 01/18/24 Procedure(s): CT abd omen pelvis w con Accession Number(s): [id number] cc: Cecilio Salamanca M.D. [place] [id number] Patient Name: NANCY NORRIS MRN: [id number] date: 1960 Sex: F Assigned Patient Loc ation: ER Current Patient Loca tion: ER Accession/Order Numb er: [id number] Exam Date: 01/18/2024 23:09 Report Date: 01/18/2024 23:32 At the request of: BRYCE AG Procedure: CT abdome n pelvis w con EXAM: CT abdomen pel vis w con REASON FOR EXAM: Fem wild, 63 years, diverticulitis. TECHNIQUE: Computed tomography of the abdomen and pelvis is performed in the axial projection fro m the lung bases to the pubic symphysis. Sagittal and coronal reconstructe d images are performed. Dose reduction techniques were achieved by using automated exposure control and/or adjustment of mA and/or KVP according to patient size and/or use of iterative reconstruction technique. A total of 100 mL Omni paque 300 IV contrast was given. Study was performed without oral contrast. COMPARISON: None. FINDINGS: Lung bases: The lung bases are clear. There is no pleural effusion. The visualized portions of the heart are unremarkable. Liver: The liver is normal. Gallbladder: The gallbladder is normal. Spleen: The spleen i s normal. Pancreas: The pancre as is normal. Adrenal glands: The adrenal glands are normal bilaterally. Right kidney: The raysa murguia is normal in size. Small renal cysts are present. There is no renal ca lculus or hydronephrosis. Left kidney: The kati gamez is normal in size. There is no renal calculus or hydronephrosis. Stomach: The stomach is normal. Small bowel: The sma ll bowel is normal. Large bowel: There i s extensive diverticulosis. There is focal thickening of the colon wall in th e rectosigmoid region, with adjacent inflammatory changes consistent with acut e diverticulitis. No abscess or free air. Appendix: The append ix is visualized, and is normal. Aorta: There are mil d atherosclerotic calcifications of the abdominal aorta. IVC: The IVC is normal. Retroperitoneum: Nor mal retroperitoneum. Bladder: The bladder is normal. Pelvic organs: Meme l uterus for patient age. Abdominal wall: Norm al abdominal wall. Osseous structures: Normal bony structures. C T/CT abdomen pelvis w con IMPRESSION: Acute diverticulitis of the rectosigmoid region. No abscess or free air. No small bowel obstr uction or acute renal pathology. Additional nonacute findings, as described above. Electronically authenticated by: GLENN ALCALA Date: 01/18/2024 23:32 Dictated By: Glenn Alcala M.D. Signed By: 01/18/24 2335 DD/ 233 TD/TT: [employer] President Of Software Development: ECG 12 lead Reviewed date:01/21/2024 07:52:55 PM Interpretation: Performing Lab: Notes/Report: Source Facility: [facility]-[address] [place] [address] [place] [address] Electrocardiograph Report Signed Patient: NANCY NORRIS MR#: [id number] : 1960 Acct:[id number] Age/Sex: 63 / F ADM Date: 01/18/24 Loc: [place] 219-[address]: Cecilio Salamanca M.D. 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 Signed By: 01/19/241845 DD/ 17 TD/TT: Vice President Of Software Development: [place] [address] Electrocardiograph Report Signed Patient: MELISSA NORRIS MR#: [id number] : 1960 Acct:[id number] Age/Sex: 63 / F ADM Date: 01/18/24 Loc: [place] 219-[address]: Ladan Salamanca M.D. 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1960 Requ ested By: CECILIO SALAMANCA Order Number: [id number] Reading MD: PIOTR HOPKINS Measurements Intervals Lincoln Rate: 73 P: 40 NC: 182 QRS: 34 QRSD: 84 T: 34 QT: 392 QTc: 417 Interpretive Statements 1100 Sinus rhythm 3314 Cannot rule out anterolateral myocardial infarction, age undetermined 27916 Possible infer ior myocardial infarction with posterior extension, age undetermined 8102 Low QRS voltage in chest leads 9150 abnormal ECG Electronically Alem d On 01-19-2024 18:45:59 EDT by PIOTR HOPKINS Dictated By: Wood Hopkins D.Pedro Signed By: 01/19/241845 DD/ 17 TD/TT: Vice President Of Software Development: LACTATE or LACTIC ACID Reviewed date:01/21/2024 07:52:55 PM Interpretation: Performing Lab: Notes/Report: [facility] , Lactate/Lactic Acid 0.5 0.4-2.0 mmol/L Performing Lab: see note ML - [facility] LB PROF CHEM 8 (BAS METB) Reviewed date:01/21/2024 07:52:54 PM Interpretation: Performing Lab: Notes/Report: [facility] , Sodium 142 136-145 mmol/L Potassium 3.7 3.5-5.1 mmol/L Chloride 104 98-107 mmol/L Carbon Dioxide 26.7 21.0-32.0 mmol/L Anion Gap 15.0 Glucose 101 74-106 mg/dL Blood Urea Nitrogen 18.0 7.0-18.0 mg/dL Creatinine 0.62 0.55-1.02 mg/dL Estimated GFR ( Moon >60 >=60 Estimated GFR (Non- Shantelle >60 >=60 BUN Creatinine Ratio 29.0 Calcium 9.2 8.5-10.1 mg/dL Performing Lab: see note ML - [facility] LB PROF 14(COMP METB) Reviewed date:01/21/2024 07:52:55 PM Interpretation: Performing Lab: Notes/Report: [facility] , Sodium 142 136-145 mmol/L Potassium 3.8 3.5-5.1 mmol/L Chloride 106 98-107 mmol/L Carbon Dioxide 27.5 21.0-32.0 mmol/L Anion Gap 12.3 Glucose 105 74-106 mg/dL Blood Urea Nitrogen 26.0 7.0-18.0 mg/dL Creatinine 0.78 0.55-1.02 mg/dL Estimated GFR ( Moon >60 >=60 Estimated GFR (Non- Shantelle >60 >=60 BUN Creatinine Ratio 33.3 Calcium 8.9 8.5-10.1 mg/dL Bilirubin Total 0.6 0.2-1.0 mg/dL Aspartate Amino Transferase 10 15-37 U/L Alanine Aminotransferase 18 14-59 U/L Alkaline Phosphatase 67 46-116 U/L Total Protein 6.8 6.4-8.2 g/dL Albumin Level 2.8 3.4-5.0 g/dL Globulin 4.0 Albumin Globulin Ratio 0.7 Performing Lab: see note ML - [facility] LB MAGNESIUM Reviewed date:01/21/2024 07:52:55 PM Interpretation: Performing Lab: Notes/Report: [facility] , Magnesium 1.6 1.8-2.4 mg/dL Performing Lab: see note ML - [facility] LB CBC AUTO DIFF Reviewed date:01/21/2024 07:52:54 PM Interpretation: Performing Lab: Notes/Report: [facility] , White Blood Count 8.1 4.0-11.0 10 3/uL Red Blood Count 4.01 4.20-5.40 10 6/uL Hemoglobin 11.9 12.0-16.0 g/dL Hematocrit 36.8 36.0-48.0 % Mean Corpuscular Volume 91.8 81.0-99.0 fL Mean Corpuscular Hemoglobin 29.7 26.7-34.0 pg Mean Corpuscular HGB Conc 32.3 29.9-35.2 g/dL Red Cell Distribution Width 12.1 11.0-15.0 % Platelet Count 266 150-450 10 3/uL Mean Platelet Volume 8.9 9.5-13.5 fL Neutrophils Percent Auto 65.4 43.0-75.0 % Lymphocytes Percent Auto 23.7 20.5-60.0 % Monocytes Percent Auto 7.7 1.7-12.0 % Eosinophils Percent Auto 1.6 0.9-7.0 % Basophils Percent Auto 1.1 0.2-2.0 % Immature Granulocytes Pct Auto 0.5 0.0-0.5 % Neutrophils Absolute Auto 5.3 1.4-6.5 10 3/uL Lymphocytes Absolute Auto 1.9 1.2-3.8 10 3/uL Monocytes Absolute Auto 0.6 0.3-0.8 10 3/uL Eosinophils Absolute Auto 0.1 0.0-0.7 10 3/uL Basophils Absolute Auto 0.1 0.0-0.1 10 3/uL Immature Granulocytes Abs Auto 0.04 0.00-0.03 10 3/uL Performing Lab: see note ML - [facility] LB Troponin I High Sensitivity Reviewed date:01/21/2024 07:52:55 PM Interpretation: Performing Lab: Notes/Report: [facility] , Troponin I High Sensitivity <4.0 4.0-51.3 pg/mL CUT-OFF POINTS HAVE BEEN ESTABLISHED BASED ON THE FOURTH WITH OTHER DIAGNOSTIC AND CLINICAL INFORMATION. NOTE: HIGH-SENSITIVITY TROPONIN ASSAY IS NOT INTENDED TO BE UNIVERSAL DEFINITION OF MYOCARDIAL INFARCTION. THE UPPER PERCENTILE OF cTnI DISTRIBUTION IN A REFERENCE POPULATION, 99TH PERCENTILE = 51.4 PG/ML HAS BEEN CONFIRMED THE DECISION THRESHOLD FOR IA USED IN ISOLATION BUT SHOULD BE INTERPRETED IN CONJUNCTION DIAGNOSIS. REFERENCE LIMIT (URL) OF TROPONIN, DEFINED THE 99TH Performing Lab: see note ML - [facility] LB URINE MICROSCOPIC ONLY Reviewed date:01/21/2024 07:52:55 PM Interpretation: Performing Lab: Notes/Report: [facility] , WBC Urine 0-2 NONE SEEN #/HPF RBC Urine 0-2 0-2 #/HPF Bacteria Urine TRACE NONE SEEN #/HPF Mucus Urine TRACE NONE SEEN Squamous Epithelial Cell Urine FEW NONE/RARE #/LPF Crystals Seen? None Seen None Seen #/HPF Cast Seen? SEEN NONE SEEN #/LPF Hyaline Casts Urine FEW Urine Culture Indicated NO Performing Lab: see note ML - [facility] LB UA (CLEAN or CATCH) BRUSH HAND or M ICRO IF IND. Reviewed date:01/21/2024 07:52:55 PM Interpretation: Performing Lab: Notes/Report: [facility] , Color Urine YELLOW YELLOW Clarity Urine CLEAR CLEAR Specific [place]idan Urine 1.025 1.005-1.025 pH Urine 5.5 5.0-9.0 Protein Urine TRACE NEG/TRACE mg/dL Glucose Urine UA NEGATIVE NEGATIVE mg/dL Bilirubin Urine NEGATIVE NEGATIVE Ketones Urine NEGATIVE NEGATIVE mg/dL Blood Urine MODERATE NEGATIVE Nitrite Urine NEGATIVE NEGATIVE Urobilinogen Urine 0.2 0.2-1.0 EU/dL Leukocyte Esterase Urine NEGATIVE NEGATIVE Urine Microscopic Indicated YES Performing Lab: see note ML - [facility] LB PROF 14(COMP METB) Reviewed date:01/21/2024 07:52:55 PM Interpretation: Performing Lab: Notes/Report: [facility] , Sodium 141 136-145 mmol/L Potassium 3.0 3.5-5.1 mmol/L Chloride 102 98-107 mmol/L Carbon Dioxide 28.8 21.0-32.0 mmol/L Anion Gap 13.2 Glucose 103 74-106 mg/dL Blood Urea Nitrogen 36.0 7.0-18.0 mg/dL Creatinine 1.33 0.55-1.02 mg/dL Estimated GFR ( Moon 49 >=60 Estimated GFR (Non- Shantelle 41 >=60 BUN Creatinine Ratio 27.1 Calcium 9.2 8.5-10.1 mg/dL Bilirubin Total 0.6 0.2-1.0 mg/dL Aspartate Amino Transferase 9 15-37 U/L Alanine Aminotransferase 20 14-59 U/L Alkaline Phosphatase 71 46-116 U/L Total Protein 7.3 6.4-8.2 g/dL Albumin Level 3.0 3.4-5.0 g/dL Globulin 4.3 Albumin Globulin Ratio 0.7 Performing Lab: see note ML - [facility] LB LIPASE Reviewed date:01/21/2024 07:52:55 PM Interpretation: Performing Lab: Notes/Report: [facility] , Lipase 51.0 16.0-77.0 U/L Performing Lab: see note ML - [facility] LB CBC AUTO DIFF Reviewed date:01/21/2024 07:52:55 PM Interpretation: Performing Lab: Notes/Report: [facility] , White Blood Count 15.8 4.0-11.0 10 3/uL Red Blood Count 4.15 4.20-5.40 10 6/uL Hemoglobin 12.6 12.0-16.0 g/dL Hematocrit 37.9 36.0-48.0 % Mean Corpuscular Volume 91.3 81.0-99.0 fL Mean Corpuscular Hemoglobin 30.4 26.7-34.0 pg Mean Corpuscular HGB Conc 33.2 29.9-35.2 g/dL Red Cell Distribution Width 12.5 11.0-15.0 % Platelet Count 269 150-450 10 3/uL Mean Platelet Volume 8.9 9.5-13.5 fL Neutrophils Percent Auto 74.6 43.0-75.0 % Lymphocytes Percent Auto 16.0 20.5-60.0 % Monocytes Percent Auto 7.3 1.7-12.0 % Eosinophils Percent Auto 0.8 0.9-7.0 % Basophils Percent Auto 0.6 0.2-2.0 % Immature Granulocytes Pct Auto 0.7 0.0-0.5 % Neutrophils Absolute Auto 11.8 1.4-6.5 10 3/uL Lymphocytes Absolute Auto 2.5 1.2-3.8 10 3/uL Monocytes Absolute Auto 1.2 0.3-0.8 10 3/uL Eosinophils Absolute Auto 0.1 0.0-0.7 10 3/uL Basophils Absolute Auto 0.1 0.0-0.1 10 3/uL Immature Granulocytes Abs Auto 0.11 0.00-0.03 10 3/uL Performing Lab: see note ML - [facility] LB Reason For Referral Diagnosis 1 Left foot pain (M79. 672) Referral Organization [facility] Referring Provider First Name Les Referring Provider Last Name Julia [facility] Aman Cobian Referred Provider Specialty Orthopedic S urgery Referral Priority Routine Diagnosis 1 Left foot pain (M79. 672) Referral Organization [facility] Referring Provider First Name Les Referring Provider Last Name Julia Referring Provider [facility] madhuri Referred Provider Joseph Cobian Referred Provider Specialty Podiatry Referral Priority Routine Diagnosis 1 Gallstones (K80.20) Referral Organization [facility] Referring Provider First Name Les Referring Provider Last Name Julia Referring Provider [facility] Referred Provider Anthony Breaux Referred Provider Specialty General Surg chelsea Referral Priority Routine Medications Medication SIG (Take, Route, Frequency, Duration) Notes Start Date End Date Status Nurtec 75 MG 1 tablet on the tong ue and allow to dissolve Orally PRN Active Lisinopril 40 MG 1 tablet Orally Once a day for 90 days Active Ondansetron 4 MG 1 tablet on the tong ue and allow to dissolve Orally qid 09/13/2024 Active hydroCHLOROthiazide 12.5 MG 1 tablet in the morning Orally Once a day for 90 days Active Levsin/SL 0.125 MG 1 tablet under the tongue and allow to dissolve as needed Sublingual every 6 hrs 01/20/2023 Active Ibuprofen 800 MG 1 tablet with food o r milk as needed Orally every 8 hrs for 30 days PRN Active levoFLOXacin 500 MG 1 tablet Orally Once a day for 10 day(s) 12/03/2024 Active Pantoprazole Sodium 40 MG 1 tablet Orall y Once a day for 30 days Active Coreg 12.5 MG 1 tablet with food Orally Twice a day for 30 days Active Aspirin 81 81 MG 1 tablet Orally Once a day Active Social History Tobacco Use: Social History Observation Description Date Details (start date - stop date) Never Smoker NA - NA Tobacco Use/Smoking Question Answer Notes Patient is a nonsmoker Alcohol Screen (Audit-C) Question Answer Notes Did you have a drink contain ing alcohol in the past year? Yes How often did you have 6 or more drinks on one occasion in the past year? Never (0 point) How often did you have a dri nk containing alcohol in the past year? Less than monthly (1 point) Points 1 Interpretation Negative AUDIT-C (Standard) Question Answer Notes Did you have a drink containing alcohol in the p ast year? No Points 0 Interpretation Negative Problems Problem Type SNOMED Code ICD Code Onset Dates Problem Status W/U Status Risk Notes Problem Cerebrovascular disease (48187602) Other cerebrovascular disease (I67.89) Active confirmed Problem Cyst of pancreas (34267738) Cyst of pancreas (K86.2) Active confirmed Problem Pilar cyst (623371505) Pilar cyst (L72.11) Active confirmed Problem Sebaceous cyst (534155693) Sebaceous cyst (L72.3) Active confirmed Problem Morbid obesity (278058996) Morbid obesity (E66.01) Active confirmed Problem Hypertension (46772246) Hypertension (I10) Active confirmed Problem Osteoarthritis (347138289) Osteoarthritis (M19.90) Active confirmed Problem Arthritis (3088142) Arthritis (M19.90) Active confirmed Problem Prediabetes (614423218) Prediabetes (R73.09) Active confirmed Problem Migraine (64972509) Migraine (G43.909) Active confirmed Problem Well adult (162752543) Well adult (Z00.00) Active confirmed Problem Leg pain (31779477) Leg pain (M79.606) Active confirmed Problem Tricuspid valve disorder (04456003) Moderate tricuspid regurgitation (I07.1) Active confirmed Problem Diverticulitis (03072784) Diverticulitis (K57.92) Active confirmed Problem Gallstones (824683099) Gallstones (K80.20) Active confirmed Problem Degeneration of cervical intervertebral disc (80791942) Degenerative cervical disc (M50.30) Active confirmed Problem Seasonal allergic rhinitis (834742878) Allergic rhinitis, seasonal (J30.2) Active confirmed Problem Gastro-esophageal reflux (375583367) Gastro-esophageal reflux (K21.9) Active confirmed Problem Hemiplegic migraine (88420331) Hemiplegic migraine (G43.409) Active confirmed Problem Calcaneal spur (58210766) Heel spur, unspecified laterality (M77.30) Active confirmed Problem Leukocytosis (222523820) Elevated WBCs (D72.829) Active confirmed Problem Essential hypertension (27202040) BP (high blood pressure) (I10) Active confirmed Problem Disease caused by Severe acute respiratory syndrome coronavirus 2 (disorder) (703655493) COVID-19 virus infection (U07.1) Active confirmed Vital Signs Temperature 99.7 degrees Fahrenheit 09/13/2024 Blood pressure diastolic 80 mm Hg 11/20/2024 Height 68 in 11/20/2024 Blood pressure systolic 132 mm Hg 11/20/2024 Weight 221.4 lbs 11/20/2024 BMI 33.66 kg/m2 11/20/2024 Encounters Encounter Location Date Provider Diagnosis [place] [address] [place] [address] 12/23/2024 Les Hoy UTI (urinary tract infection) N39.0 [place] [address] [place] [address] 10/21/2024 Les Hoy Left foot pain M79.6 [address] [place] [address] [place] [address] 11/21/2024 Les Hoy [facility] [address] [place] [address] 11/25/2024 Les Hoy Gallstones K80.20 [place] [address] [place] [address] 11/27/2024 Les Hoy [facility] [address] [place] [address] 12/03/2024 Les Hoy UTI (urinary tract infection) N39.0 [facility] [address] [place] [address] 12/05/2024 Les Hoy UTI (urinary tract infection) N39.0 [facility] [address] [facility] [place] [place] [address] 01/04/2024 Les Hoy [facility] [address] [facility] [place] [address] 01/09/2024 Les Hoy [facility] [address] [facility] [place] [address] 01/31/[address] [facility] [address] [facility] [place] [place] [address] 09/27/2024 Les Hoy Left foot pain M79.6 72 [facility] [address] [facility] [place] [address] 10/02/2024 Les Hoy Left foot pain M79.6 72 [facility] [address] [facility] [place] [address] 10/19/2024 Les Hoy Left foot pain M79.6 72 [facility] [address], [place] [address] 09/13/2024 [place] Diverticulitis K57.9 2 [facility] [address] [facility], [place] [address] 11/20/2024 [place] Epigastric abdominal pain R10.13 and Left upper quadrant abdominal pain R10.12 [facility] [address] [facility], [place] [address] 12/28/2023 [place] Sebaceous cyst L72.3 [facility] [address] [facility], [place] [address] 01/18/2024 [place] Diverticulitis K57.9 2 [facility] [address] [facility], [place] [address] 01/22/2024 [place] Gastroenteritis K52. 9 and Diverticulitis K57.92 [facility] [address] [facility], [place] [address] 01/31/2024 [place] Hypertension I10 and Diverticulitis K57.92 Assessments Encounter Date Diagnosis (ICD Code) Assessment Notes Treatment Notes Treatment Clinical Notes Section Notes 12/28/2023 Sebaceous cyst (ICD-10 - L72.3) 01/18/2024 Diverticulitis (ICD-10 - K57.92) 01/31/2024 Hypertension (ICD-10 - I10) 01/31/2024 Diverticulitis (ICD-10 - K57.92) 01/22/2024 Gastroenteritis (ICD-10 - K52.9) Get plenty of rest. Stay hydrated by sucking on ice chips or taking small sips of water. You can also try drinking clear soda, clear broths or noncaffeinated sports drinks. Stop eating solid foods for a few hours to let your stomach settle. East back into eating by eating bland, cuwh-kv-rbwkkx foods like crackers, toast, gelatin, bananas, rice and chicken. Try to avoid foods/substances including dairy products, caffeine, alcohol, nicotine and fatty or highly seasoned foods. Medications such as ibuprofen or tylenol can make your stomach more upset, so use sparingly if at all. Also avoid xfhi-gyf-urowldd anti-diarrheal medications because it can make it harder for your body to eliminate the virus. 01/22/2024 Diverticulitis (ICD-10 - K57.92) 09/13/2024 Diverticulitis (ICD-10 - K57.92) 11/20/2024 Epigastric abdominal pain (ICD-10 - R10.13) 11/20/2024 Left upper quadrant abdominal pain (ICD-10 - R10.12) 09/27/2024 Left foot pain (ICD-10 - M79.672) 10/02/2024 Left foot pain (ICD-10 - M79.672) 10/19/2024 Left foot pain (ICD-10 - M79.672) 10/21/2024 Left foot pain (ICD-10 - M79.672) 11/25/2024 Gallstones (ICD-10 - K80.20) 12/03/2024 UTI (urinary tract infection) (ICD-10 - N39.0) 12/05/2024 UTI (urinary tract infection) (ICD-10 - N39.0) 12/23/2024 UTI (urinary tract infection) (ICD-10 - N39.0) 09/13/2024 Other Get plenty of rest. Stay hydrated by sucking on ice chips or taking small sips of water. You can also try drinking clear soda, clear broths or noncaffeinated sports drinks. Stop eating solid foods for a few hours to let your stomach settle. East back into eating by eating bland, oqpl-gu-lrapvm foods like crackers, toast, gelatin, bananas, rice and chicken. Try to avoid foods/substances including dairy products, caffeine, alcohol, nicotine and fatty or highly seasoned foods. Medications such as ibuprofen or tylenol can make your stomach more upset, so use sparingly if at all. Also avoid pjzv-dfh-cluhxgp anti-diarrheal medications because it can make it harder for your body to eliminate the virus. Plan Of Treatment Pending Test Test Name Order Date UA (URINALYSIS, COMPLETE) 12/03/2024 UA (URINALYSIS, COMPLETE) 12/05/2024 UA (URINALYSIS, COMPLETE) 12/23/2024 Urine Culture 12/03/2024 XR Foot 2 Views Left 09/27/2024 AMYLASE 11/20/2024 CBC AUTO DIFF 11/20/2024 CULTURE URINE 12/23/2024 CULTURE URINE 12/05/2024 LIPASE 11/20/2024 PROF 14(COMP METB) 11/20/2024 URINE MICROSCOPIC ONLY 12/03/2024 URINE MICROSCOPIC ONLY 12/23/2024 US ABD 11/20/2024 CT ANKLE LEFT WO CONTRAST 10/02/2024 CT FOOT LEFT WO CONTRAST 10/02/2024 Insurance Providers Payer Name Payer Address Payer Phone Subscriber Number Group Number Insured Name Patient Relationship to Insured Coverage Start Date Coverage End Date MMO [employer] [address] [place] [address] [id number] Nancy Norris Self - patient is the insured 4 Medications Administered Medication Instructions Date of Administration Dosage Notes Promethazine 25mg 09/13/2024 25 mg Medical (General) History Medical History History ICD Code Drop attack R55 Over weight E66.3 COVID-19 virus infection U07.1 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 of 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 Edema of right lower leg R60.0 Diverticulitis K57.92 Pyelonephritis N12 Well adult Z00.00 Adverse effect of other viral vaccines, initial encounter T50.B95A Leg pain M79.606 Influenza due to unidentified influenza virus with other manifestations J11.89 Hemiplegic migraine G43.409 Acute bronchitis J20.9 Pleuritis R09.1 Gastro-esophageal reflux K21.9 Other cerebrovascular disease I67.89 Osteoarthritis M19.90 Degenerative cervical disc M50.30 Allergic rhinitis, seasonal J30.2 Migraine G43.909 Moderate tricuspid regurgitation I07.1 Hypertension I10 Surgical History Surgery Date(Month/Year) breast reduction Bilat knee surgery 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
--- OUTSIDE RECORDS SUMMARY | 2024-12-25 07:12 | XMS_ITS | CCD ---
Author Organization [facility] Care Team Providers Care Environmental Journalist Name Role Phone Cecilio Dumont Unavailable Unavailable Unavailable Julia Ayon Unavailable MD Cecilio Dumont Primary Care Provider [phone] MD Anneliese Garcia Attending Provider MD Anneliese Garcia Referring Provider DO Renny Walton Attending Provider [phone] Sharla Strange Unavailable MD Cecilio Dumont Primary Care Provider [phone] MARIA T Strange Attending Provider MD Cecilio Dumont Attending Provider CHEIKH ., DR HERNANDES Consulting Unavailable HOY ., DR HERNANDES Attending Unavailable HOY ., DR HERNANDES Admitting Unavailable HOY ., DR HERNANDES Primary Care Unavailable HOY ., DR HERNANDES Primary Care Unavailable HOY ., DR HERNANDES Consulting Unavailable HOY ., DR HERNANDES Attending Unavailable HOY ., DR HERNANDES Admitting Unavailable MD Cecilio Dumont Primary Care Provider [phone] DO Renny Walton Attending Provider Isabel Kent Unavailable Dr. Cecilio Dumont Primary Care Unavail able MD Cecilio Dumont Primary Care Provider [phone] YVROSE Kent Attending Provider MD Erika Escobedo Emergency Provider MD Nabil Baker Admit Provider MD Nabil Baker Attending Provider MD Anneliese Garcia Other Provider [phone] ANNELIESE GARCIA Referring Unavailable CECILIO DUMONT Primary Care Unavailable ANNELIESE GARCIA Referring Unavailable CECILIO DUMONT Primary Care Unavailable Cecilio Dumont MD Primary Care Provider MD Cecilio Dumont Primary Care Provider [facility], DO Renny Finch Attending Provider ANNELIESE GARCIA Attending Unavailable ANNELIESE GARCIA Referring Unavailable CECILIO DUMNOT Primary Care Unavailable Cecilio Dumont MD Primary Care Provider [phone] Cecilio Dumont MD Attending Provider [phone] Unavailable [facility] Dumont MD Primary Care Provider [phone] Cecilio Dumont MD Primary Care Provider [phone] Isabel Kent APRN Attending Provider JOSEPH COBIAN Attending Unavailable HOY, CECILIO M Referring Unavailable JOSEPH COBIAN Attending Unavailable Hoy, Cecilio Primary Care Physician Anthony IVERSON Attending Unavailable [facility] DORenny Attending Provider Hoy Cecilio M Attending Unavailable Hoy, Cecilio M Admitting Unavailable Hoy, Cecilio M Primary Care Unavailable Hoy, Cecilio M Attending Unavailable Hoy, Cecilio M Admitting Unavailable Hoy, Cecilio M Primary Care Unavailable Hoy, Cecilio M Attending Unavailable Hoy, Cecilio M Admitting Unavailable Hoy, Cecilio M [facility] Admitting Unavailable Hoy, Cecilio M Primary Care Unavailable Hoy, Cecilio M Attending Unavailable Hoy, Cecilio M Admitting Unavailable Hoy, Cecilio M Primary Care Unavailable Hoy, Cecilio M Attending Unavailable Hoy, Cecilio M Admitting Unavailable Hoy, Cecilio M Primary Care Unavailable Hoy, Cecilio M Attending Unavailable Cecilio Dumont Admitting Unavailable Cecilio Dumont Primary Care Unavailable Allergies Allergy Classification Reported Allergen(s) Allergy Type Date of Onset Reaction(s) Facility Anti-Epileptic Agents (1 source) topiramate Drug Allergy 09-06-19 Diarrhea, Vomiting [facility] Cephalosporins (antibiotic) (1 source) Cefuroxime Drug Allergy 09-06-19 [facility] Dihydrofolate Reductase Inhibitors (antibiotic) (1 source) Trimethoprim Drug Allergy 09-06-19 [facility] Doxycycline (1 source) Doxycycline Drug Allergy 09-06-19 [facility] Macrolides (antibiotic) (1 source) Azithromycin Drug Allergy 09-06-19 [facility] Opioid Agonists (1 source) Morphine Drug Allergy 09-06-19 [facility] Penicillins (antibiotic) (2 sources) Amoxicillin Drug Allergy 09-06-19 [facility] Quinolones (antibiotic) (1 source) levoFLOXacin Drug Allergy 09-06-19 [facility] Sulfonamides (antibiotic) (1 source) Sulfamethoxazole Drug Allergy 09-06-19 [facility] (15 sources) Cefuroxime; Translations: [Ceftin] Drug Allergy Weal (disorder) [facility] [place] (20 sources) Penicillins; Translations: [Penicillins] Allergy to drug (finding) 06-17-19 09 Rash, Unknown Reaction, [facility] (3 sources) Morphine Derivatives; Translations: [Morphine Derivatives] Allergy to drug (finding) [address] Work Phone: (20 sources) Amoxicillin Drug Allergy 07-15-19 22 Unknown, [facility] (20 sources) Doxycycline; Translations: [doxycycline] Drug Allergy 07-15-19 22 Weal (disorder) [facility] (16 sources) Erythromycin; Translations: [ERYTHROMYCIN] Drug Allergy 06-17-19 09 Unknown, Weal (disorder) [facility] (10 sources) levoFLOXacin Drug Allergy Unknown [facility] Other (20 sources) Morphine; Translations: [MORPHINE] Drug Allergy 07-15-19 22 Hives, Itching, Rash [facility] (11 sources) Sulfamethoxazole / Trimethoprim; Translations: [sulfamethoxazole-t rimethoprim] Drug Allergy Eruption of skin (disorder) [facility] [place] (20 sources) FLU Vacine Propensity to adverse reactions 05-31-19 24 dizzy,[facility] (20 sources) Azithromycin Drug Allergy 07-15-19 22 [facility] (20 sources) Cefuroxime Drug Allergy 07-15-19 22 [facility] (20 sources) Sulfamethoxazole Drug Allergy 07-15-19 [facility] (20 sources) Trimethoprim Drug Allergy 07-15-19 22 [facility] (1 source) Amoxicillin Drug Allergy [facility] (1 source) Cefuroxime Drug Allergy 11-24-19 13 [facility] (2 sources) Codeine; Translations: [codeine] Drug Allergy 04-17-20 13 [facility] (2 sources) Doxycycline; Translations: [Vibramycin] Drug Allergy 11-24-19 13 [facility] (16 sources) Erythromycin Drug Allergy 11-24-19 13 Rash [facility] (1 source) Morphine Drug Allergy 11-24-19 13 [facility] (2 sources) traMADol; Translations: [Ultram] Drug Allergy 04-17-20 13 [facility] (1 source) Morphine Drug Allergy Unknown [facility] Other (20 sources) topiramate; Translations: [TOPIRAMATE] Drug Allergy 03-14-20 Diarrhea, Multiple symptoms (finding) [facility] (4 sources) Cefuroxime; Translations: [CEFUROXIME AXETIL] Drug Allergy 06-17-19 09 Rash [facility] (16 sources) levoFLOXacin; Translations: [LEVOFLOXACIN] Drug Allergy 06-17-19 09 Unknown [facility] Comment on above: Pt indicates she can take this as of 12/20/2023. (4 sources) OTHER; Translations: [OTHER] Propensity to adverse reactions (disorder) 03-13-20 23 Hives, Itching, Fever [facility] (1 source) ALLERGIES NOT ON FILE; Translations: [ALLERGIES NOT ON FILE] Propensity to adverse reactions (disorder) [facility] (2 sources) Penicillins Drug Allergy 06-17-19 09 [facility] Work Phone: (1 source) Codeine; Translations: [codeine] Drug Allergy Vomiting (disorder) [facility] [place] (2 sources) influenza A virus A//[id number] (H1N1) antigen / influenza A virus A//[id number] (H3N2) antigen / influenza B virus B/ antigen / influenza B virus B/ antigen; Translations: [influenza virus vaccine] Drug Allergy Weal (disorder) [facility] (2 sources) Penicillin; Translations: [penicillin] Drug Allergy Weal (disorder) [facility] (1 source) traMADol; Translations: [tramadol] Drug Allergy [facility] (1 source) Sulfamethoxazole / Trimethoprim; Translations: [Bactrim] Drug Allergy [facility] (1 source) topiramate; Translations: [Topamax] Drug Allergy [facility] Medications Current Medications Medication Drug Class(es) Dates Sig (Normalized) Sig (Original) aspirin 81 mg delayed release oral tablet (20 sources) Platelet Aggregation Inhibitor, Nonsteroidal Anti-inflammatory Drug Start: 12-03-2024 take 1 tablet by mouth once daily aspirin 81 mg Oral EC Tab 81 mg = 1 tab(s), Oral, Daily, Refills(s) 0 Start Date: 12/03/24 Status: Ordered Repeat number: 1 Start: 02-14-2017 take 1 tablet by mouth once da jonatan take 1 tablet by mouth once shawna y aspirin 81 mg EC tablet Take 1 tablet (81 mg) by mouth once daily. Active Aspirin 81 mg On ce a day Active carvedilol 12.5 mg oral tablet (20 sources) alpha-Adrenergic Faisal, beta-Adrenergic Faisal Start: 01-03-2023 take 1 tablet by mouth twice daily take 1 tablet by hugo th every twelve hours Carvedilol 25 MG 1 tablet with food Oral ly Twice a day Active doxycycline monohydrate 100 mg oral capsule (2 sources) Tetracycline-class Drug Start: 04-13-2022 End: 03-22-2024 take 1 capsule by mouth twice daily doxycycline (Monodox) 100 mg capsule Take 1 capsule (100 mg) by mouth 2 times a day. 04/13/2022 03/22/2024 Discontinued (Therapy completed) hydroCHLOROthiazide 12.5 mg oral tablet (20 sources) Thiazide Diuretic Start: 09-06-2023 take 1 tablet by mouth once daily Start: 01-03-2023 End: 07-07-2023 take 1 tablet by mouth once daily Hydrochlorothiazide 12.5 mg tablet Discontinued 12.5 MG PO Daily January 03, 2023 12:00am July 07, 2023 2:57pm Start: 10-22-2021 take 1 capsule by mo [facility] once daily hydroCHLOROthiazide 12.5 MG Oral Capsule TAKE 1 CAPSULE ONCE DAILY. Quantity: 90 Refills: 3 Ordered: 22-Oct-2021 Anneliese Garcia MD Start : 22-Oct-2021 Active new start hyoscyamine sulfate 0.125 mg oral tablet (20 sources) Start: 11-27-2024 take 1 tablet by mouth every six hours as needed for pain Levsin 0.125 mg SL Tab 0.125 mg = 1 tab(s), Oral, q6hr, PRN pain, Refills(s) 0 Start Date: 11/27/24 Status: Ordered Repeat number: 1 Start: 07-07-2023 End: 09-06-2023 take 1 tablet by mouth every six hours as needed Hyoscyamine Sulfate 0.125 mg tablet,disintegrating Discontinued 0.125 MG PO Every 6 hours as needed July 07, 2023 1:00am September 06, 2023 7:35am take 1 tablet by hugo every six hours as needed Hyoscyamine Sulfate 0.[address] 1 TABLET UNDER THE TONGUE AND allow TO DISSOLVE EVERY 6 HOURS NEEDED Oral for 7 Days PRN Active ibuprofen 800 mg oral tablet (20 sources) Nonsteroidal Anti-inflammatory Drug Start: 09-12-2022 take 1 tablet by mouth every eight hours as needed Start: 07-06-2021 End: 07-07-2023 Ibuprofen 600 mg tablet Disc ontinued 800 MG PO Q8H as needed for pain July 06, 2021 9:31am July 07, 2023 2:57pm Start: 07-06-2021 End: 07-07-2023 take 800 mg by mouth every eight hours Ibuprofen Discontinued 800 MG PO Q8H July 06, 2021 9:31am July 07, 2023 2:57pm Start: 10-23-2020 End: 07-06-2021 take 1 tablet by mouth every eight hours as needed for pain Ibuprofen 600 mg tablet Discontinued 600 MG PO Q8H as needed for pain October 23, 2020 12:00am July 06, 2021 9:31am Start: 05-09-2018 End: 05-10-2018 Ibuprofen (Motrin Ib) 200 mg Tablet Discontinued 800 MG PO Q8H as needed for Migraine Headache May 09, 2018 1:00am May 10, 2018 1:14pm Start: 05-01-2013 take 1 tablet by hugo th every six hours as needed for pain Motrin 800 mg Tab Oral, q6hr, PRN Pain Start Date: 05/01/13 Status: Ordered Repeat number: 1 Motrin As needed Active methylPREDNISolone (5 sources) Corticosteroid Start: 11-06-2024 methylPREDNISolone (Medrol Dospak) 4 MG tablets Indications: DJD (degenerative joint disease), ankle and foot, left Follow schedule on MEDROL PACK package instructions to be used as directed 21 tablet 11/06/2024 Active ondansetron 4 mg disintegrating oral tablet (20 sources) Serotonin-3 Receptor Antagonist Start: 11-27-2024 take 1 tablet by mouth four times daily ondansetron 4 mg Dis Tab 4 mg = 1 tab(s), Oral, QID, Refills(s) 0 Start Date: 11/27/24 Status: Ordered Repeat number: 1 Start: 02-14-2024 take 1 tablet by hugo th once daily as needed Start: 09-27-2021 End: 01-03-2023 take 1 tablet by mouth every eight hours as needed for nausea and vomiting Ondansetron 4 mg tablet,disintegrating Discontinued 4 MG PO Q8H as needed for nausea and vomiting 10 September 27, 2021 12:00am January 03, 2023 10:55am Start: 04-04-2020 End: 06-04-2020 take 1 tablet by mouth every eight hours as needed for nausea and vomiting Ondansetron 4 mg tablet,disintegrating Discontinued 4 MG PO Q8H as needed for nausea and vomiting 12 4 April 04, 2020 1:00am June 04, 2020 2:29pm Ozempic 1 mg/dose (4 mg/3 mL) pen injector (1 source) Ozempic 1 mg/dos e (4 mg/3 mL) pen injector every 7 days. Active pantoprazole 40 mg delayed release oral tablet (20 sources) Proton Pump Inhibitor Start: 12-15-2022 take 1 tablet by mouth once daily Start: 05-10-2018 End: 12-20-2023 take 1 tablet by mouth twice daily Pantoprazole (Protonix) 40 mg tablet,delayed release (DR/EC) Discontinued 40 MG PO Twice daily July 06, 2021 9:31am December 20, 2023 12:29pm Start: 02-14-2017 End: 05-10-2018 take 1 tablet by mouth once daily in the morning Pantoprazole (Protonix) 40 mg Tablet,Delayed Release (Dr/Ec) Discontinued 40 MG PO Every morning February 14, 2017 12:00am May 10, 2018 1:15pm End: 03-22-2024 take 1 tablet by mouth once daily pantoprazole (ProtoNix) 20 mg EC tablet Take 1 tablet (20 mg) by mouth once daily. 03/22/2024 Discontinued (Therapy completed) phentermine hydrochloride 37.5 mg oral tablet (2 sources) Sympathomimetic Amine Anorectic Start: 10-12-2022 End: 03-22-2024 take 1 tablet by mouth once daily before mealtime phentermine (Adipex-P) 37.5 mg tablet Take 1 tablet (37.5 mg) by mouth once daily in the morning. Take before meals. 10/12/2022 03/22/2024 Discontinued (Therapy completed) 24 hr phentermine 7.5 mg / topiramate 46 mg extended release oral capsule (1 source) Sympathomimetic Amine Anorectic Start: 07-28-2020 take 1 capsule by mouth every twenty-four hours Qsymia 7.5-46 MG 1 capsule Orally Once a day for 30 days Jul, Active rimegepant 75 mg disintegrating oral tablet (20 sources) Start: 11-27-2024 take 1 tablet under the tongue once Nurtec ODT 75 mg oral tablet, disintegrating 75 mg = 1 tab(s), SubLingual, Once, Refills(s) 0 Start Date: 11/27/24 Status: Ordered Repeat number: 1 Start: 07-06-2021 take 1 tablet by mouth once da jonatan as needed for headache Semaglutide (7 sources) Start: 09-13-2024 Start: 09-13-2024 Semaglutide (O zempic) 0.25 mg or 0.5 mg (2 mg/3 mL) pen injector Active 0.5 MG SUBCUT every week September 13, 2024 12:00am 0.25mg once weekly for weeks 1-4 Completed/Discontinued Medications Medication Drug Class(es) Dates Sig (Normalized) Sig (Original) acetaminophen 500 mg oral capsule (20 sources) Start: 07-07-2023 End: 09-06-2023 take 1 capsule by mouth every six hours as needed Acetaminophen 500 mg capsule Discontinued 500 MG PO Every 6 hours as needed July 07, 2023 1:00am September 06, 2023 7:35am take 1 capsule by mouth every si x hours Acetaminophen 500 MG 1 capsule as needed Orally every 6 hrs Active acetaminophen 325 mg / HYDROcodone bitartrate 10 mg oral tablet (20 sources) Opioid Agonist Start: 09-27-2021 End: 01-03-2023 take 1 tablet by mouth three times daily as needed for pain Hydrocodone-Acetaminophen 10-325 mg tablet Discontinued 1 TAB PO Three times daily as needed for pain 02 16September 27, 2021 January 03, 2023 10:55am Start: 07-14-2021 End: 01-03-2023 take 1 tablet by mouth every six hours as needed for pain Hydrocodone-Acetaminophen 5-325 mg table t Discontinued 1 TAB PO Q6H as needed for pain 20 July 14, 2021 January 03, 2023 10:55am acetaminophen 325 mg / oxyCODONE hydrochloride 5 mg oral tablet (20 sources) Opioid Agonist Start: 10-23-2020 End: 07-06-2021 take 1 tablet by mouth every six hours as needed for pain Oxycodone-Acetaminophen (Percocet) 5-325 mg tablet Discontinued 1 - 2 TAB PO Every 6 hours as needed for pain 20 3 October 23 2021 February 22nd, 2022 9:31am amoxicillin 875 mg / clavulanate 125 mg oral tablet (20 sources) Penicillin-class Antibacterial Start: 10-23-2020 End: 07-06-2021 take 1 tablet by mouth twice daily Amoxicillin-Pot Clavulanate (Augmentin) 875-125 mg tablet Discontinued 1 TAB PO Twice daily 03 03October 23, 2020 12:00am July 06, 2021 9:30am Start: 10-28-2017 End: 05-09-2018 take 1 tablet by mouth twice daily Amoxicillin-Pot Clavulanate (Augmentin) 875-125 mg tablet Discontinued 1 TAB PO Twice daily October 28, 2017 12:00am May 09, 2018 2:22pm azithromycin 250 mg oral tablet (20 sources) Macrolide Antimicrobial Start: 02-14-2017 End: 10-25-2017 take 1 tablet by mouth once daily Azithromycin (Zithromax Z-Hesham) 250 mg Tablet Discontinued 250 MG PO Daily February 14, 2017 12:00am October 25, 2017 11:39am ciprofloxacin 500 mg oral tablet (20 sources) Quinolone Antimicrobial Start: 09-27-2021 End: 07-07-2023 take 1 tablet by mouth every two hours Ciprofloxacin Hcl (Cipro) 500 mg tablet Discontinued 500 MG PO Twice daily September 27, 2021 12:00am July 07, 2023 2:57pm administer dose at least 2 hrs before/6 hrs after dairy products, calcium, zinc, and/or iron-containing products Start: 09-25-2020 take 1 tablet by hugo th every twelve hours Cipro 500 MG 1 tablet Orally every 12 hrs for 10 day(s) PRN September, Active cyclobenzaprine hydrochloride 10 mg oral tablet (20 sources) Muscle Relaxant Start: 06-04-2020 End: 09-18-2020 take 1 tablet by mouth three times daily as needed for muscle spasms Cyclobenzaprine 10 mg tablet Discontinued 10 MG PO Three times daily as needed for muscle spasm June 04, 2020 1:00am September 18, 2020 7:08am 24 hr desvenlafaxine succinate 50 mg extended release oral tablet (20 sources) Serotonin and Norepinephrine Reuptake Inhibitor Start: 02-14-2017 End: 10-25-2017 take 1 tablet by mouth once daily, then take 1 tablet by mouth every twenty-four hours Desvenlafaxine Succinate (Pristiq) 50 mg Tablet Extended Release 24 Hr Discontinued 50 MG PO Daily February 14, 2017 12:00am October 25, 2017 11:40am docusate sodium 50 mg / sennosides, shelter 8.6 mg oral tablet (20 sources) Start: 10-23-2020 End: 07-06-2021 take 2 tablets by mouth once daily at bedtime as needed for constipation Sennosides-Docusat e Sodium (Senna Plus) 8.6-50 mg tablet Discontinued 2 TAB PO Daily at bedtime as needed for constipation October 23, 2020 12:00am July 06, 2021 9:31am 12 hr guaiFENesin 600 mg extended release oral tablet (20 sources) Start: 02-15-2017 End: 10-25-2017 take 2 tablets by mouth twice daily, then take 1 tablet by mouth every twelve hours Guaifenesin (Mucinex) 600 mg Tablet Extended Release 12hr Discontinued 1200 MG PO Twice daily February 15, 2017 12:00am October 25, 2017 11:40am levoFLOXacin 500 mg oral tablet (13 sources) Quinolone Antimicrobial Start: 10-27-2023 End: 12-20-2023 take 1 tablet by mouth once daily Levofloxacin 500 mg tablet Discontinued 500 MG PO Daily October 27, 2023 12:00am December 20, 2023 12:28pm 3 ml liraglutide 6 mg/ml pen injector (20 sources) GLP-1 Receptor Agonist Start: 07-12-2023 End: 10-27-2023 Liraglutide (Victoza 3-Hesham) 0.6 mg/0.1 mL (18 mg/3 mL) pen injector Discontinued 3 MG SUBCUT Daily September 06, 2023 8:00am October 27, 2023 11:28am Inject 1.2mg +1.8mg daily to equal 3mg total Start: 07-07-2023 End: 07-12-2023 Liraglutide (Victoza 3-Hesham) 0.6 mg/0.1 mL (18 mg/3 mL) pen injector Discontinued 3 MG SUBCUT Daily July 07, 2023 1:00am July 12, 2023 9:43am Start: 01-18-2023 End: 03-22-2024 Victoza 3-Hesham 0.6 mg/0.1 mL (18 mg/3 mL) injection Inject 0.1 mL (0.6 mg) under the skin. 01/18/2023 03/22/2024 Discontinued (Therapy completed) Start: 01-18-2023 Victoza 18 MG/ 3ML 3mg Subcutaneous Daily for 30 days 2.4mg (1.8 + 0.6mg) once daily for 1 week, then 3mg (1.8 +1.2mg) thereafter Jan, Active Start: 01-18-2023 inject 1.8 mg by sub cutaneous injection once daily Victoza 18 MG/3ML 1.8mg Subcutaneous Daily for 30 days Jan, Active inject 3 mg by subcu taneous injection once daily Victoza 18 MG/3ML 3mg (1.2 + 1.8) Subcutaneous Daily for 30 days BMI 34.8 Prediabetes R73.09 Active lisinopril 20 mg oral tablet (20 sources) Angiotensin Converting Enzyme Inhibitor Start: 10-23-2020 End: 07-07-2023 take 2 tablets by mouth once daily Lisinopril 20 mg tablet Discontinued 40 MG PO Daily October 23, 2020 3:30am July 07, 2023 2:56pm Start: 10-23-2020 End: 07-07-2023 take 40 mg by mouth once daily Lisinopril Discontinued 40 MG PO Daily October 23, 2020 3:30am July 07, 2023 2:56pm Start: 10-28-2017 End: 10-23-2020 take 1 tablet by mouth once daily Lisinopril 20 mg Tablet Discontinued 20 MG PO Daily 0 October 28, 2017 2:34pm October 23, 2020 3:30am Start: 02-14-2017 End: 10-28-2017 take 2 tablets by mouth once daily Lisinopril 20 mg Tablet Discontinued 40 MG PO Daily 0 February 15, 2017 12:00am October 28, 2017 2:34pm Start: 02-14-2017 End: 10-28-2017 take 40 mg by mouth once daily Lisinopril Discontinued 40 MG PO Daily 0 February 15, 2017 12:00am October 28, 2017 2:34pm Start: 05-01-2013 take 1 tablet by hugo th once daily loratadine 10 mg oral tablet (20 sources) Start: 02-15-2017 End: 10-25-2017 take 1 tablet by mouth once daily in the morning Loratadine 10 mg Tablet Discontinued 10 MG PO Every morning February 15, 2017 12:00am October 25, 2017 11:40am metroNIDAZOLE 500 mg oral tablet (20 sources) Nitroimidazole Antimicrobial Start: 09-25-2020 End: 07-07-2023 take 1 tablet by mouth twice daily Metronidazole 500 mg tablet Discontinued 500 MG PO Twice daily September 27, 2021 12:00am July 07, 2023 2:55pm phenazopyridine hydrochloride 200 mg oral tablet (13 sources) Start: 10-27-2023 End: 12-20-2023 take 1 tablet by mouth once daily Phenazopyridine 200 mg tablet Discontinued 200 MG PO Daily October 27, 2023 12:00am December 20, 2023 12:28pm Semaglutide (20 sources) Start: 02-14-2024 End: 06-12-2024 inject 1 mg by subcutaneous injection every week Semaglutide (Ozempic) 1 mg/dose (4 mg/3 mL) pen injector Discontinued 1 MG SUBCUT every week February 14, 2024 8:33am June 12, 2024 10:02am Start: 02-14-2024 inject 1 mg by subcu taneous injection every week Semaglutide (Ozempic) 1 mg/dose (4 mg/3 mL) pen injector Active 1 MG SUBCUT every week February 14, 2024 7:33am Start: 12-20-2023 End: 02-14-2024 inject 1 mg by subcutaneous injection every week Semaglutide (Ozempic) 1 mg/dose (4 mg/3 mL) pen injector Discontinued 1 MG SUBCUT every week December 20, 2023 4:56pm February 14, 2024 8:33am Start: 12-20-2023 End: 02-14-2024 inject 1 mg by subcutaneous injection every week Semaglutide (Ozempic) 1 mg/dose (4 mg/3 mL) pen injector Discontinued 1 MG SUBCUT every week December 20, 2023 3:56pm February 14, 2024 7:33am Start: 12-20-2023 inject 1 mg by subcu taneous injection every week Semaglutide (Ozempic) 1 mg/dose (4 mg/3 mL) pen injector Active 1 MG SUBCUT every week December 20, 2023 4:56pm Start: 10-27-2023 End: 12-20-2023 inject 0.5 mg by subcutaneous injection every week, then inject 1 mg by subcutaneous injection every week Semaglutide (Ozempic) 1 mg/dose (4 mg/3 mL) pen injector Discontinued 1 MG SUBCUT every week October 26, 2023 11:00pm December 20, 2023 3:57pm 0.5mg (36 clicks) weekly for 4 weeks then 1mg weekly thereafter Start: 10-27-2023 End: 12-20-2023 inject 0.5 mg by subcutaneous injection every week, then inject 1 mg by subcutaneous injection every week Semaglutide (Ozempic) 1 mg/dose (4 mg/3 mL) pen injector Discontinued 1 MG SUBCUT every week October 27, 2023 12:00am December 20, 2023 4:57pm 0.5mg (36 clicks) weekly for 4 weeks then 1mg weekly thereafter Start: 10-27-2023 inject 0.5 mg by sub cutaneous injection every week, then inject 1 mg by subcutaneous injection every week Semaglutide (Ozempic) 1 mg/dose (4 mg/3 mL) pen injector Active 1 MG SUBCUT every week October 27, 2023 12:00am 0.5mg (36 clicks) weekly for 4 weeks then 1mg weekly thereafter Semaglutide (12 sources) Start: 09-11-2024 End: 09-13-2024 inject 2 mg by subcutaneous injection every week Semaglutide 2 mg/dose (8 mg/3 mL) pen injector Discontinued 2 MG SUBCUT every week September 11, 2024 9:05am September 13, 2024 8:51am Start: 06-12-2024 End: 09-11-2024 Semaglutide 2 mg/dose (8 mg/ 3 mL) pen injector Discontinued 2 MG SUBCUT every week June 12, 2024 10:00am September 11, 2024 9:05am 1mg (37clicks) for at least 4 weeks, titrate to 2mg as discussed Semaglutide 2 mg/dose (8 mg/3 mL) pen injector (3 sources) Start: 09-11-2024 End: 09-13-2024 inject 2 mg by subcutaneous injection every week Semaglutide 2 mg/dose (8 mg/3 mL) pen injector Discontinued 2 MG SUBCUT every week September 11, 2024 9:05am September 13, 2024 8:51am Start: 06-12-2024 End: 09-11-2024 Semaglutide 2 mg/dose (8 mg/ 3 mL) pen injector Discontinued 2 MG SUBCUT every week June 12, 2024 10:00am September 11, 2024 9:05am 1mg (37clicks) for at least 4 weeks, titrate to 2mg as discussed Start: 06-12-2024 Semaglutide 2 mg/dose (8 mg/3 mL) pen injector Active 2 MG SUBCUT every week June 12, 2024 10:00am 1mg (37clicks) for at least 4 weeks, titrate to 2mg as discussed topiramate 50 mg oral tablet (20 sources) Start: 12-16-2022 End: 03-22-2024 take 1 tablet by mouth once daily Topiramate 50 mg tablet Discontinued 50 MG PO Daily January 03, 2023 12:00am July 07, 2023 2:55pm Start: 12-16-2022 Topiramate 50 MG Half tablet once daily for 7 days then increase to one tablet daily Orally Once a day for 30 days Dec, Not-Taking/PRN Start: 02-14-2017 End: 02-14-2019 take 1 tablet by mouth once daily Topiramate (Topamax) 200 mg Tablet Discontinued 200 MG PO Daily February 14, 2017 12:00am February 14, 2019 11:13am triamcinolone acetonide 40 mg/ml injectable suspension (9 sources) Corticosteroid Start: 08-08-2022 Kenalog-40 Jul, 40 mg Problems Active Problems Problem Classification Problem Date Documented Date Episodic/Chronic Abdominal pain (14 sources) Left sided abdominal pain; Translations: [Unspecified abdominal pain] Onset: Episodic Acute cerebrovascular disease (20 sources) Cerebrovascular accident; Translations: [Cerebral infarction, unspecified] Chronic Administrative/social admission (20 sources) Persons encountering health services in other specified circumstances; Translations: [Follow-up status] Onset: 3 Resolved: 4 Episodic Anxiety disorders (20 sources) Anxiety; Translations: [Anxiety disorder, unspecified] 02-15-2017 Chronic Calculus of urinary tract (20 sources) Kidney stone; Translations: [Calculus of kidney] Episodic Diabetes mellitus without complication (20 sources) Impaired fasting glycemia; Translations: [Impaired fasting glucose] Episodic Diverticulosis and diverticulitis (20 sources) Diverticular disease; Translations: [Diverticulosis of colon (without mention of hemorrhage)] Onset: 3 09-27-2021 Chronic E Codes: Adverse effects of medical drugs (20 sources) Adverse reaction to drug; Translations: [Adverse effect of unspecified drugs, medicaments and biological substances, initial encounter] 02-14-2019 Episodic E Codes: Fall (20 sources) Fall; Translations: [Unspecified fall, initial encounter] 06-04-2020 Episodic Esophageal disorders (20 sources) Gastroesophageal reflux disease; Translations: [Gastro-esophageal reflux disease without esophagitis] Onset: 5 10-25-2017 Chronic Essential hypertension (20 sources) Benign essential hypertension; Translations: [Benign essential hypertension] Onset: 3 02-15-2017 Chronic Gastritis and duodenitis (20 sources) Gastritis; Translations: [Gastritis, unspecified, without bleeding] 09-18-2020 Episodic Headache; including migraine (20 sources) Migraine; Translations: [Migraine, unspecified, not intractable, without status migrainosus] 02-15-2017 Chronic Heart valve disorders (1 source) Tricuspid valve regurgitation 11-27-2024 Chronic Mood disorders (20 sources) Major depression, single episode; Translations: [Major depressive disorder, single episode, unspecified] 09-04-2023 Chronic Nausea and vomiting (2 sources) Nausea; Translations: [Nausea] Onset: 5 Episodic Nonspecific chest pain (20 sources) Chest pain; Translations: [Chest pain, unspecified] Onset: 3 09-30-2021 Episodic Osteoarthritis (20 sources) Osteoarthritis of right knee joint; Translations: [Unilateral primary osteoarthritis, right knee] Chronic Other and ill-defined cerebrovascular disease (1 source) Cerebrovascular disease 11-27-2024 Chronic Other and unspecified benign neoplasm (20 sources) History of polyp of colon; Translations: [Personal history of colonic polyps] 09-18-2020 Episodic Other and unspecified benign neoplasm (1 source) Personal history of colonic polyps; Translations: [History of colon polyps] Episodic Other circulatory disease (1 source) History of transient ischemic attack 11-27-2024 Episodic Other connective tissue disease (4 sources) Bone spur of left foot; Translations: [Other enthesopathy of left foot and ankle] 11-06-2024 Episodic Other connective tissue disease (4 sources) Capsulitis of metatarsophalangeal joint of left foot; Translations: [Other enthesopathy of left foot and ankle] 11-06-2024 Episodic Other gastrointestinal disorders (1 source) Swollen abdomen; Translations: [Abdominal distension (gaseous)] Onset: 5 Episodic Other gastrointestinal disorders (2 sources) Diarrhea; Translations: [Diarrhea, unspecified] Onset: 5 Episodic Other gastrointestinal disorders (1 source) Abdominal bloating 12-03-2024 Episodic Other infections; including parasitic (20 sources) Personal history of other infectious and parasitic diseases; Translations: [History of 2019 novel coronavirus disease (COVID-19)] 04-04-2020 Episodic Other injuries and conditions due to external causes (2 sources) Unspecified injury of right wrist, hand and finger(s), initial encounter Episodic Other injuries and conditions due to external causes (2 sources) Unspecified injury of right lower leg, initial encounter Episodic Other liver diseases (1 source) Steatosis of liver 11-27-2024 Chronic Other nervous system disorders (20 sources) Disturbance in speech; Translations: [Unspecified speech disturbances] 02-14-2017 Episodic Other nervous system disorders (20 sources) Numbness; Translations: [Anesthesia of skin] 02-14-2017 Episodic Other non-traumatic joint disorders (2 sources) Pain in right knee Episodic Other non-traumatic joint disorders (2 sources) Pain in right wrist Episodic Other nutritional; endocrine; and metabolic disorders (20 sources) Obesity; Translations: [Obesity, unspecified] Chronic Other nutritional; endocrine; and metabolic disorders (20 sources) Body mass index 30+ - obesity; Translations: [Body mass index (BMI) 33.0-33.9, adult] Onset: 11-03-24-2023 Chronic Other nutritional; endocrine; and metabolic disorders (9 sources) Lipoprotein deficiency disorder; 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 Other nutritional; endocrine; and metabolic disorders (20 sources) Metabolic syndrome X; Translations: [Metabolic syndrome] 09-04-2023 Chronic Other nutritional; endocrine; and metabolic disorders (16 sources) Obesity, unspecified; Translations: [Obesity, unspecified] Chronic Other nutritional; endocrine; and metabolic disorders (1 source) Lipoprotein deficiency; 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 Other nutritional; endocrine; and metabolic disorders (1 source) Metabolic syndrome; Translations: [Metabolic syndrome] Chronic Other nutritional; endocrine; and metabolic disorders (1 source) Body mass index (BMI) 34.0-34.9, adult Chronic Other nutritional; endocrine; and metabolic disorders (16 sources) High density lipoprotein deficiency ; Translations: [Lipoprotein deficiency] 09-04-2023 Chronic Other nutritional; endocrine; and metabolic disorders (20 sources) Obese class I; Translations: [Obesity, unspecified] 07-07-2023 Chronic Other nutritional; endocrine; and metabolic disorders (2 sources) Body mass index (BMI) 32.0-32.9, adult; Translations: [Body mass index (BMI) 32.0-32.9, adult] Onset: 4 Chronic Other nutritional; endocrine; and metabolic disorders (1 source) Obesity caused by energy imbalance 11-27-2024 Chronic Other screening for suspected conditions (not mental disorders or infectious disease) (2 sources) Imaging of abdomen abnormal; Translations: [Abnormal findings on diagnostic imaging of other abdominal regions, including retroperitoneum] Onset: 5 Episodic Other skin disorders (20 sources) Cyst of scalp; Translations: [Follicular cyst of the skin and subcutaneous tissue, unspecified] 07-14-2021 Episodic Other upper respiratory disease (1 source) Seasonal allergic rhinitis 11-27-2024 Chronic Other upper respiratory infections (10 sources) Sinusitis; Translations: [Chronic sinusitis, unspecified] Chronic Other upper respiratory infections (20 sources) Upper respiratory infection; Translations: [Acute upper respiratory infection, unspecified] 02-15-2017 Episodic Pancreatic disorders (not diabetes) (1 source) Cyst of pancreas 11-27-2024 Episodic Residual codes; unclassified (2 sources) Never smoked tobacco; Translations: [Other specified health status] Onset: 4 03-22-2024 Episodic Residual codes; unclassified (2 sources) Other specified health status; Translations: [Other specified health status] Onset: 4 Episodic Sprains and strains (20 sources) Sprain of knee; Translations: [Sprain of unspecified site of left knee, initial encounter] 06-04-2020 Episodic Syncope (4 sources) Syncope and collapse; Translations: [SYNCOPE AND COLLAPSE] Onset: 3 Episodic Thyroid disorders (17 sources) Thyroid nodule; Translations: [Nontoxic single thyroid nodule] 01-04-2023 Chronic Unclassified (2 sources) CONTACT W/AND (SUSP) EXPOS COVID-19; Translations: [CONTACT W/AND (SUSP) EXPOS COVID-19] Onset: 2 Viral infection (1 source) COVID-19; Translations: [COVID-19] Onset: 2 Past or Other Problems Problem Classification Problem Date Documented Da te Episodic/Chronic Immunizations and screening for infectious disease (1 source) Encounter for immunization Onset: 05-04-2021 Resolved: 05-04-2021 Episodic Unclassified (3 sources) Never smoked tobacco; Translations: [Never a smoker] Unclassified (1 source) CONTACT W/AND (SUSP) EXPOS COVID-19; Translations: [CONTACT W/AND (SUSP) EXPOS COVID-19] Onset: 04-13-2022 Results Test Name Value Interpretation Reference Range Facility Appearance of UrineOrdered B y: Cecilio Dumont on 12-24-2024 Appearance (U) Clear Clear [facility] Bacteria [Presence] in Urine by AutomatedOrdered By: Cecilio Dumont on 12-24-2024 Bacteria Auto Ql (U) None seen [HPF] None Seen [facility] Bilirubin Test strip Ql (U)O rdered By: Cecilio Dumont on 12-24-2024 Bilirubin Ql (U) Negative Negative [facility] Calcium oxalate crystals [Pr esence] in Urine by Computer assisted methodOrdered By: Cecilio Dumont on 12-24-2024 Calcium oxalate crystals Computer assisted Ql (U) 3+ [HPF] [facility] Color Auto (U)Ordered By: Do demetria Dumont on 12-24-2024 Color (U) Light-yellow Yellow [facility] Epithelial cells.squamous [# /area] in Urine sediment by Automated countOrdered By: Cecilio Dumont on 12-24-2024 Epithelial cells.squamous Auto (Urine sed) [#/Area] 1-2 [HPF] 0-2 [facility] Erythrocytes [#/area] in Uri ne sediment by Automated countOrdered By: Cecilio Dumont on 12-24-2024 RBC Auto (Urine sed) [#/Area] 1-2 [HPF] 0-4 [facility] Glucose [Mass/volume] in Uri ne by Test stripOrdered By: Cecilio Dumont on 12-24-2024 Glucose Test strip (U) [Mass/Vol] Normal mg/dL Normal [facility] Hemoglobin Test strip Ql (U) Ordered By: Cecilio Dumont on 12-24-2024 Hemoglobin Ql (U) Trace High Negative [facility] Hyaline casts [#/area] in Ur ine sediment by Automated countOrdered By: Cecilio Dumont on 12-24-2024 Hyaline casts Auto (Urine sed) [#/Area] None [LPF] 0-8 [facility] Ketones Test strip Ql (U)Ord ered By: Cecilio Dumont on 12-24-2024 Ketones Ql (U) Negative Negative [facility] Leukocyte esterase [Presence ] in Urine by Test stripOrdered By: Cecilio Dumont on 12-24-2024 Leukocyte esterase Test strip Ql (U) Negative Negative [facility] Leukocytes [#/area] in Urine sediment by Automated countOrdered By: Cecilio Dumont on 12-24-2024 WBC Auto (Urine sed) [#/Area] 3-4 [HPF] 0-4 [facility] Mucus [Presence] in Urine by AutomatedOrdered By: Cecilio Dumont on 12-24-2024 Mucus Auto Ql (U) Rare [LPF] [facility] Nitrite Test strip Ql (U)Ord ered By: Cecilio Dumont on 12-24-2024 Nitrite Ql (U) Negative Negative [facility] Protein Test strip (U) [Mass /Vol]Ordered By: Cecilio Dumont on 12-24-2024 Protein (U) [Mass/Vol] Negative Negative [facility] Specific gravity Test strip (U) [Rel density]Ordered By: Cecilio Dumont on 12-24-2024 Specific gravity (U) [Rel density] 1.033 High 1.001-1.03 0 [facility] Urobilinogen Test strip (U) [Mass/Vol]Ordered By: Cecilio Dumont on 12-24-2024 Urobilinogen (U) [Mass/Vol] Normal mg/dL Normal [facility] pH Test strip (U)Ordered By: Cecilio Dumont on 12-24-2024 pH (U) 5.5 [pH] 5.0-9.0 [facility] Alanine aminotransferase [En zymatic activity/volume] in Serum or PlasmaOrdered By: Renny Walton on 12-20-2024 ALT [Catalytic activity/Vol] 16 U/L 7-52 [facility] Comment on above: Performed By: #### E BS A1C, PILLAR LIPID, PILLAR CMP, PILLAR CBC #### [facility] [address] [place] [address] [place] Albumin [Mass/volume] in Ser um or Plasma by Bromocresol green (BCG) dye binding methoOrdered By: eRnny Walton on 12-20-2024 Albumin BCG dye [Mass/Vol] 4.2 g/dL 3.5-5.7 [facility] Alkaline phosphatase [Enzyma tic activity/volume] in Serum or PlasmaOrdered By: Renny Walton on 12-20-2024 ALP [Catalytic activity/Vol] 59 U/L 34-104 [facility] Comment on above: Performed By: #### E BS A1C, PILLAR LIPID, PILLAR CMP, PILLAR CBC #### [facility] [address] [place] [id number] [place] Appearance of UrineOrdered B y: Cecilio Dumont on 12-20-2024 Appearance (U) Clear Clear [facility] Comment on above: Order Comment: Name Collection Type:: Clean-Voided Midstream Performed By: #### C UU, ADDONUAPLUS #### [facility] [address] [place] [id number] [place] Aspartate aminotransferase [ Enzymatic activity/volume] in Serum or PlasmaOrdered By: Renny Walton on 12-20-2024 AST [Catalytic activity/Vol] 13 U/L 13-39 [facility] Comment on above: Performed By: #### E BS A1C, PILLAR LIPID, PILLAR CMP, PILLAR CBC #### [facility] [address] Bacteria [Presence] in Urine by AutomatedOrdered By: Cecilio Dumont on 12-20-2024 Bacteria Auto Ql (U) None seen [HPF] None Seen [facility] Basophils [#/volume] in Bloo d by Automated countOrdered By: Renny Walton on 12-20-2024 Basophils (Bld) [#/Vol] 0.1 10*3/uL 0.0-0.2 [facility] Comment on above: Result Comment: PERF ORMED BY: [place] [address] PATHOLOGIST [employer] CONSULTANT BASSAM BRDAFORD M.D. Performed By: #### E BS A1C, PILLAR LIPID, PILLAR CMP, PILLAR CBC #### [facility] [address] [place] [address] Basophils/100 leukocytes in Blood by Automated countOrdered By: Renny Walton on 12-20-2024 Basophils/100 WBC (Bld) 1.1 % . [facility] Comment on above: Performed By: #### E BS A1C, PILLAR LIPID, PILLAR CMP, PILLAR CBC #### [facility] [address] [place] [address] Bilirubin Test strip Ql (U)O rdered By: Cecilio Dumont on 12-20-2024 Bilirubin Ql (U) Negative Negative [facility] Bilirubin.total [Mass/volume ] in Serum or PlasmaOrdered By: Renny Walton on 12-20-2024 Bilirubin [Mass/Vol] 0.5 mg/dL 0.3-1.0 [facility] Comment on above: Performed By: #### E BS A1C, PILLAR LIPID, PILLAR CMP, PILLAR CBC #### [facility] [address] [place] [address] Blood estimated average gluc ose determination by estimation from glycated hemoglobinOrdered By: Renny Walton on 12-20-2024 Average glucose Estimated from glycated hemoglobin (Bld) [Mass/Vol] 117 mg/dL [facility] Calcium [Mass/volume] in Ser um or PlasmaOrdered By: Renny Walton on 12-20-2024 Calcium [Mass/Vol] 9.6 mg/dL 8.6-10.3 [facility] Comment on above: Performed By: #### E BS A1C, PILLAR LIPID, PILLAR CMP, PILLAR CBC #### [facility] [address] Carbon dioxide, total [Moles /volume] in Serum or PlasmaOrdered By: Renny Walton on 12-20-2024 CO2 [Moles/Vol] 28.9 mmol/L 21.0-31.0 [facility] Comment on above: Performed By: #### E BS A1C, PILLAR LIPID, PILLAR CMP, PILLAR CBC #### [facility] [address] [place] [address] [place] Chloride [Moles/volume] in S genaro or PlasmaOrdered By: Renny Walton on 12-20-2024 Chloride [Moles/Vol] 106 mmol/L 98-107 [facility] Comment on above: Performed By: #### E BS A1C, PILLAR LIPID, PILLAR CMP, PILLAR CBC #### [facility] [address] [place] [address] [place] Cholesterol [Mass/volume] in Serum or PlasmaOrdered By: Renny Walton on 12-20-2024 Cholesterol [Mass/Vol] 178 mg/dL 140-200 [facility] Comment on above: Chol less than 200 m g/dl low riskChol 201-239 mg/dl borderline riskChol 240 mg/dl and greater high risk Result Comment: Chol less than 200 mg/dl low risk Chol 201-239 mg/dl borderline risk Chol 240 mg/dl and greater high risk Performed By: #### E BS A1C, PILLAR LIPID, PILLAR CMP, PILLAR CBC #### [facility] [address] [place] [id number] [place] Cholesterol in HDL [Mass/vol ume] in Serum or PlasmaOrdered By: Renny Walton on 12-20-2024 Cholesterol in HDL [Mass/Vol] 52 mg/dL 23-92 [facility] Comment on above: HDL CHOL ATP-III CLA SSIFICATION Cardiovascular RiskHDL > or equal to 60 mg/dL LOWHDL < 40 mg/dL HIGH Result Comment: HDL CHOL ATP-III CLASSIFICATION Cardiovascular Risk HDL > or equal to 60 mg/dL LOW HDL < 40 mg/dL HIGH Performed By: #### E BS A1C, PILLAR LIPID, PILLAR CMP, PILLAR CBC #### [facility] [address] [place] [address] [place] Cholesterol in LDL Calc [Mas s/Vol]Ordered By: Renny Walton on 12-20-2024 Cholesterol in LDL [Mass/Vol] 90 mg/dL 0-100 [facility] Comment on above: LDL ATP III CLASSIFI CATIONLDL less than 100 mg/dL OptimalLDL 100-129 mg/dL Near or above optimalLDL 130-159 mg/dL Borderline highLDL 160-189 mg/dL HighLDL greater than 189 mg/dL Very high Cholesterol in VLDL Calc [Ma ss/Vol]Ordered By: Renny Walton on 12-20-2024 Cholesterol in VLDL [Mass/Vol] 35 mg/dL [facility] Color of Urine by AutoOrdere d By: Cecilio Dumont on 12-20-2024 Color (U) Light-yellow Yellow [facility] Comment on above: Order Comment: Name Collection Type:: Clean-Voided Midstream Performed By: #### C UU, ADDONUAPLUS #### [facility] [address] [place] [address] [place] Creatinine [Mass/volume] in Serum or PlasmaOrdered By: Renny Walton on 12-20-2024 Creatinine [Mass/Vol] 0.61 mg/dL 0.60-1.20 [facility] Comment on above: Performed By: #### E BS A1C, PILLAR LIPID, PILLAR CMP, PILLAR CBC #### [facility] [address] [place] [address] [place] Dipstick and Microscopicon 0 12-20-2024 Bacteria,Urine None Seen Normal None Seen [facility] Comment on above: Order Comment: Name Collection Type:: Clean-Voided Midstream Performed By: #### C UU, ADDONUAPLUS #### [place] [address] [place] Bilirubin,Urine Negative Normal Negative [facility] Comment on above: Order Comment: Name Collection Type:: Clean-Voided Midstream Performed By: #### C UU, ADDONUAPLUS #### [address] Glucose Ql (U) Normal Normal Normal [facility] Comment on above: Order Comment: Name Collection Type:: Clean-Voided Midstream Performed By: #### C UU, ADDONUAPLUS #### [address] Hyaline Casts,Urine None Normal 0-8 [facility] Comment on above: Order Comment: Name Collection Type:: Clean-Voided Midstream Performed By: #### C UU, ADDONUAPLUS #### [place] [address] [place] Mucus,Urine Rare Normal [facility] Comment on above: Order Comment: Name Collection Type:: Clean-Voided Midstream Result Comment: PERF ORMED BY: [place] [address] PATHOLOGIST [employer] CONSULTANT BASSAM BRADFORD M.D. Performed By: #### C UU, ADDONUAPLUS #### [place] [address] [place] Nitrite,Urine Negative Normal Negative [facility] Comment on above: Order Comment: Name Collection Type:: Clean-Voided Midstream Performed By: #### C UU, ADDONUAPLUS #### [place] [address] [place] Occult Blood,Urine 1+ Normal Negative [facility] Comment on above: Order Comment: Name Collection Type:: Clean-Voided Midstream Result Comment: PERF ORMED BY: [place] [address] PATHOLOGIST [employer] CONSULTANT BASSAM BRADFORD M.D. Performed By: #### C UU, ADDONUAPLUS #### [place] [address] [place] Protein,Urine Negative Normal Negative [facility] Comment on above: Order Comment: Name Collection Type:: Clean-Voided Midstream Performed By: #### C UU, ADDONUAPLUS #### [place] [address] [place] RBC,Urine 1-2 Normal 0-4 [facility] Comment on above: Order Comment: Name Collection Type:: Clean-Voided Midstream Performed By: #### C UU, ADDONUAPLUS #### [address] Specificy [place],Urine 1.020 Normal 1.001-1.03 0 [facility] Comment on above: Order Comment: Name Collection Type:: Clean-Voided Midstream Performed By: #### C UU, ADDONUAPLUS #### [address] Squamous Epithelial Cell,Urine 1-2 Normal 0-2 [facility] Comment on above: Order Comment: Name Collection Type:: Clean-Voided Midstream Performed By: #### C UU, ADDONUAPLUS #### [place] [address] [place] Urobilinogen,Urine Normal Normal Normal [facility] Comment on above: Order Comment: Name Collection Type:: Clean-Voided Midstream Performed By: #### C UU, ADDONUAPLUS #### [place] [address] [place] WBC,Urine 1-2 Normal 0-4 [facility] Comment on above: Order Comment: Name Collection Type:: Clean-Voided Midstream Performed By: #### C UU, ADDONUAPLUS #### [address] EBS A1C with Estimated Ave Chano martinez 12-20-2024 Glucose [Mass/Vol] 117 mg/dL Normal [facility] Comment on above: Result Comment: PERF ORMED BY: [place] [address] PATHOLOGIST [employer] CONSULTANT BASSAM BRADFORD M.D. Performed By: #### E BS A1C, PILLAR LIPID, PILLAR CMP, PILLAR CBC #### [address] Employee Comp Metabolic Pane eliezer 12-20-2024 Albumin [Mass/Vol] 4.2 g/dL Normal 3.5-5.7 [facility] Comment on above: Performed By: #### E BS A1C, PILLAR LIPID, PILLAR CMP, PILLAR CBC #### [address] GFR/1.73 sq M.predicted MDRD (S/P/Bld) [Vol rate/Area] mL/min/{1.73_m2} Normal [facility] Comment on above: Performed By: #### E BS A1C, PILLAR LIPID, PILLAR CMP, PILLAR CBC #### [address] Employee Complete Blood Coun ton 12-20-2024 Mean Corpuscular HGB Conc 33.6 g/dL Normal 32.0-35.0 [facility] Comment on above: Performed By: #### E BS A1C, PILLAR LIPID, PILLAR CMP, PILLAR CBC #### [address] NRBC% 0.0 /100{WBC} Normal 0-0.5 [facility] Comment on above: Performed By: #### E BS A1C, PILLAR LIPID, PILLAR CMP, PILLAR CBC #### [address] White Blood Count 7.4 [CFU]/mL Normal 3.8-11.[address] [facility] Comment on above: Performed By: #### E BS A1C, PILLAR LIPID, PILLAR CMP, PILLAR CBC #### [address] Employee Lipid Profileon LDL Cholesterol,Calculated 90 mg/dL Normal 0-100 [facility] Comment on above: Result Comment: LDL ATP III CLASSIFICATION LDL less than 100 mg/dL Optimal LDL 100-129 mg/dL Near or above optimal LDL 130-159 mg/dL Borderline high LDL 160-189 mg/dL High LDL greater than 189 mg/dL Very high Performed By: #### E BS A1C, PILLAR LIPID, PILLAR CMP, PILLAR CBC #### [facility] [address] Triglyceride w/Reflex 178 mg/dL High 0-149 [facility] Comment on above: Result Comment: TRIG ATP III CLASSIFICATION TRIG less than 150 mg/dL Normal TRIG 150-199 mg/dL Borderline high TRIG 200-500 mg/dL High TRIG greater than 500 mg/dL Very high Standard traceable to the Center for Disease Conrtrol and Prevention (CDC) test method. Performed By: #### E BS A1C, PILLAR LIPID, PILLAR CMP, PILLAR CBC #### [facility] [address] [place] [address] VLDL CHOLESTEROL 35 mg/dL Normal [facility] Comment on above: Performed By: #### E BS A1C, PILLAR LIPID, PILLAR CMP, PILLAR CBC #### [facility] [address] [place] [address] Eosinophils [#/volume] in Bl ood by Automated countOrdered By: Renny Walton on 12-20-2024 Eosinophils (Bld) [#/Vol] 0.1 10*3/uL 0.0-0.45 [facility] Comment on above: Performed By: #### E BS A1C, PILLAR LIPID, PILLAR CMP, PILLAR CBC #### [facility] [address] [place] [address] [place] Eosinophils/100 leukocytes i n Blood by Automated countOrdered By: Renny Walton on 12-20-2024 Eosinophils/100 WBC (Bld) 1.6 % . [facility] Comment on above: Performed By: #### E BS A1C, PILLAR LIPID, PILLAR CMP, PILLAR CBC #### [facility] [address] Epithelial cells.squamous [# /area] in Urine sediment by Automated countOrdered By: Cecilio Dumont on 12-20-2024 Epithelial cells.squamous Auto (Urine sed) [#/Area] 1-2 [HPF] 0-2 [facility] Erythrocyte distribution wid th [Ratio] by Automated countOrdered By: Renny Walton on 12-20-2024 Erythrocyte distribution width (RBC) [Ratio] 13.3 % 11.9-15.3 [facility] Comment on above: Performed By: #### E BS A1C, PILLAR LIPID, PILLAR CMP, PILLAR CBC #### [facility] [address] Erythrocytes [#/area] in Uri ne sediment by Automated countOrdered By: Cecilio Dumont on 12-20-2024 RBC Auto (Urine sed) [#/Area] 1-2 [HPF] 0-4 [facility] Erythrocytes [#/volume] in B lood by Automated countOrdered By: Renny Walton on 12-20-2024 RBC (Bld) [#/Vol] 4.84 10*6/uL 3.60-5.00 [facility] Comment on above: Performed By: #### E BS A1C, PILLAR LIPID, PILLAR CMP, PILLAR CBC #### [facility] [address] [place] [address] [place] Glucose [Mass/volume] in Ser um or PlasmaOrdered By: Renny Walton on 12-20-2024 Glucose [Mass/Vol] 111 mg/dL High 70-100 [facility] Comment on above: ADA recommended refe rence range Result Comment: ADA recommended reference range Performed By: #### E BS A1C, PILLAR LIPID, PILLAR CMP, PILLAR CBC #### [facility] [address] [place] [address] [place] Glucose [Mass/volume] in Uri ne by Test stripOrdered By: Cecilio Dumont on 12-20-2024 Glucose Test strip (U) [Mass/Vol] Normal mg/dL Normal [facility] Hematocrit [Volume Fraction] of Blood by Automated countOrdered By: Renny Walton on 12-20-2024 Hematocrit (Bld) [Volume fraction] 43.0 % 34.0-46.4 [facility] Comment on above: Performed By: #### E BS A1C, PILLAR LIPID, PILLAR CMP, PILLAR CBC #### [facility] [address] [place] [address] Hemoglobin A1c measurementOr dered By: Renny Walton on 12-20-2024 HbA1c (Bld) [Mass fraction] 5.7 % High 4.3-5.6 [facility] Comment on above: Increased risk for d iabetes: 5.7 - 6.4diabetes: >6.4glycemic control for adults with diabetes: <7.0 Result Comment: Incr eased risk for diabetes: 5.7 - 6.4 diabetes: >6.4 glycemic control for adults with diabetes: <7.0 Performed By: #### E BS A1C, PILLAR LIPID, PILLAR CMP, PILLAR CBC #### [facility] [address] [place] [address] Hemoglobin Test strip Ql (U) Ordered By: Cecilio Dumont on 12-20-2024 Hemoglobin Ql (U) 1+ High Negative [facility] Hemoglobin [Mass/volume] in BloodOrdered By: Renny Walton on 12-20-2024 Hemoglobin (Bld) [Mass/Vol] 14.5 g/dL 11.8-15.4 [facility] Comment on above: Performed By: #### E BS A1C, PILLAR LIPID, PILLAR CMP, PILLAR CBC #### [facility] [address] [place] [address] Hyaline casts [#/area] in Ur ine sediment by Automated countOrdered By: Cecilio Dumont on 12-20-2024 Hyaline casts Auto (Urine sed) [#/Area] None [LPF] 0-8 [facility] Ketones [Presence] in Urine by Test stripOrdered By: Cecilio Dumont on 12-20-2024 Ketones Ql (U) Negative Negative [facility] Comment on above: Order Comment: Name Collection Type:: Clean-Voided Midstream Performed By: #### C UU, ADDONUAPLUS #### [facility] [address] [place] [address] [place] Leukocyte esterase [Presence ] in Urine by Test stripOrdered By: Cecilio Dumont on 12-20-2024 Leukocyte esterase Test strip Ql (U) Negative Negative [facility] Comment on above: Order Comment: Name Collection Type:: Clean-Voided Midstream Performed By: #### C UU, ADDONUAPLUS #### [facility] [address] [place] [address] [place] Leukocytes [#/area] in Urine sediment by Automated countOrdered By: Cecilio Dumont on 12-20-2024 WBC Auto (Urine sed) [#/Area] 1-2 [HPF] 0-4 [facility] Leukocytes [#/volume] correc rani for nucleated erythrocytes in Blood by Automated counOrdered By: Renny Walton on 12-20-2024 WBC corrected for nucl RBC Auto (Bld) [#/Vol] 7.4 10*3/uL 3.8-11.6 [facility] Leukocytes [#/volume] in Blo od by Automated countOrdered By: Renny Walton on 12-20-2024 WBC (Bld) [#/Vol] 7.4 10*3/uL 3.8-11.6 [facility] Comment on above: Performed By: #### E BS A1C, PILLAR LIPID, PILLAR CMP, PILLAR CBC #### [facility] [address] [place] [address] [place] Lymphocytes [#/volume] in Bl ood by Automated countOrdered By: Renny Walton on 12-20-2024 Lymphocytes (Bld) [#/Vol] 2.4 10*3/uL 1.00-4.8 [facility] Comment on above: Performed By: #### E BS A1C, PILLAR LIPID, PILLAR CMP, PILLAR CBC #### [place] [address] [place] Lymphocytes/100 leukocytes i n Blood by Automated countOrdered By: Renny Walton on 12-20-2024 Lymphocytes/100 WBC (Bld) 32.1 % . [facility] Comment on above: Performed By: #### E BS A1C, PILLAR LIPID, PILLAR CMP, PILLAR CBC #### [facility] [address] MCH [Entitic mass] by Automa rani countOrdered By: Renny Walton on 12-20-2024 MCH (RBC) [Entitic mass] 29.9 pg 24.7-34.3 [facility] Comment on above: Performed By: #### E BS A1C, PILLAR LIPID, PILLAR CMP, PILLAR CBC #### [facility] [address] MCHC Auto (RBC) [Mass/Vol]Or dered By: Renny Walton on 12-20-2024 MCHC (RBC) [Mass/Vol] 33.6 g/dL 32.0-35.0 [facility] MCV [Entitic volume] by Auto mated countOrdered By: Renny Walton on 12-20-2024 MCV (RBC) [Entitic vol] 88.8 fL 80-100 [facility] Comment on above: Performed By: #### E BS A1C, PILLAR LIPID, PILLAR CMP, PILLAR CBC #### [address] Monocytes [#/volume] in Bloo d by Automated countOrdered By: Rneny Walton on 12-20-2024 Monocytes (Bld) [#/Vol] 0.6 10*3/uL 0.0-0.8 [facility] Comment on above: Performed By: #### E BS A1C, PILLAR LIPID, PILLAR CMP, PILLAR CBC #### [facility] [address] Monocytes/100 leukocytes in Blood by Automated countOrdered By: Renny Walton on 12-20-2024 Monocytes/100 WBC (Bld) 8.6 % . [facility] Comment on above: Performed By: #### E BS A1C, PILLAR LIPID, PILLAR CMP, PILLAR CBC #### [address] Mucus [Presence] in Urine by AutomatedOrdered By: Cecilio Dumont on 08-08-2025 Mucus Auto Ql (U) Rare [LPF] [facility] Neutrophils [#/volume] in Bl ood by Automated countOrdered By: Renny Walton on 12-20-2024 Neutrophils (Bld) [#/Vol] 4.2 10*3/uL 1.8-7.7 [facility] Comment on above: Performed By: #### E BS A1C, PILLAR LIPID, PILLAR CMP, PILLAR CBC #### [facility] [address] [place] [address] [place] Neutrophils/100 leukocytes i n Blood by Automated countOrdered By: Renny Walton on 12-20-2024 Neutrophils/100 WBC (Bld) 56.6 % . [facility] Comment on above: Performed By: #### E BS A1C, PILLAR LIPID, PILLAR CMP, PILLAR CBC #### [facility] [address] Nitrite Test strip Ql (U)Ord ered By: Cecilio Dumont on 12-20-2024 Nitrite Ql (U) Negative Negative [facility] No Panel InformationOrdered By: Renny Walton on 12-20-2024 Estimated GFR (CKD-EPI) > 60.0 mL/Min [facility] Creatinine Clearance (Chem N/A [facility] Nucleated erythrocytes [Pres ence] in Blood by Automated countOrdered By: Renny Walton on 12-20-2024 Nucleated RBC Auto Ql (Bld) 0.0 /100{WBC} 0-0.5 [facility] Platelet mean volume [Entiti c volume] in Blood by Automated countOrdered By: Renny Walton on 12-20-2024 Platelet mean volume (Bld) [Entitic vol] 6.7 fL 6.3-10.7 [facility] Comment on above: Performed By: #### E BS A1C, PILLAR LIPID, PILLAR CMP, PILLAR CBC #### [facility] [address] [place] [address] [place] Platelets [#/volume] in Bloo d by Automated countOrdered By: Renny Walton on 12-20-2024 Platelets (Bld) [#/Vol] 332 10*3/uL 150-450 [facility] Comment on above: Performed By: #### E BS A1C, PILLAR LIPID, PILLAR CMP, PILLAR CBC #### [facility] [address] Potassium [Moles/volume] in Serum or PlasmaOrdered By: Renny Walton on 12-20-2024 Potassium [Moles/Vol] 4.0 mmol/L 3.5-5.1 [facility] Comment on above: Performed By: #### E BS A1C, PILLAR LIPID, PILLAR CMP, PILLAR CBC #### [facility] [address] Protein Test strip (U) [Mass /Vol]Ordered By: Cecilio Dumont on 12-20-2024 Protein (U) [Mass/Vol] Negative Negative [facility] Protein [Mass/volume] in Ser um or PlasmaOrdered By: Renny Walton on 12-20-2024 Protein [Mass/Vol] 7.0 g/dL 6.4-8.9 [facility] Comment on above: Performed By: #### E BS A1C, PILLAR LIPID, PILLAR CMP, PILLAR CBC #### [facility] [address] Serum globulin measurement b y calculation (mass/volume)Ordered By: Renny Walton on 12-20-2024 Globulin (S) [Mass/Vol] 2.8 g/dL [facility] Comment on above: Performed By: #### E BS A1C, PILLAR LIPID, PILLAR CMP, PILLAR CBC #### [facility] [address] Serum or plasma albumin/glob ulin mass ratioOrdered By: Renny Walton on 12-20-2024 Albumin/Globulin [Mass ratio] 1.5 {ratio} [facility] Comment on above: Performed By: #### E BS A1C, PILLAR LIPID, PILLAR CMP, PILLAR CBC #### [facility] [address] Serum or plasma anion gap de terminationOrdered By: Renny Walton on 12-20-2024 Anion gap [Moles/Vol] 9.1 mmol/L 6.0-15.0 [facility] Comment on above: Performed By: #### E BS A1C, PILLAR LIPID, PILLAR CMP, PILLAR CBC #### [facility] [address] Serum or plasma total choles terol/high density lipoprotein (HDL) cholesterol mass ratOrdered By: Renny Walton on 12-20-2024 Cholesterol.total/Chol esterol in HDL [Mass ratio] 3.4 {ratio} <5.0 [facility] Comment on above: Result Comment: PERF ORMED BY: [facility] [address] [place] [address] PATHOLOGIST COLOR CONSULTANT BASSAM BRADFORD M.D. Performed By: #### E BS A1C, PILLAR LIPID, PILLAR CMP, PILLAR CBC #### [facility] [address] [place] [address] [place] Sodium [Moles/volume] in Ser um or PlasmaOrdered By: Renny Walton on 12-20-2024 Sodium [Moles/Vol] 140 mmol/L 136-145 [facility] Comment on above: Performed By: #### E BS A1C, PILLAR LIPID, PILLAR CMP, PILLAR CBC #### [facility] [address] Specific gravity Test strip (U) [Rel density]Ordered By: Cecilio Dumont on 12-20-2024 Specific gravity (U) [Rel density] 1.020 1.001-1.03 0 [facility] Triglyceride [Mass/volume] i n Serum or PlasmaOrdered By: Renny Walton on 12-20-2024 Triglyceride [Mass/Vol] 178 mg/dL High 0-149 [facility] Comment on above: TRIG ATP III CLASSIF ICATIONTRIG less than 150 mg/dL NormalTRIG 150-199 mg/dL Borderline highTRIG 200-500 mg/dL High TRIG greater than 500 mg/dL Very highStandard traceable to the Center for Disease Conrtrol and Prevention (CDC) test method. Urea nitrogen [Mass/volume] in Serum or PlasmaOrdered By: Renny Walton on 12-20-2024 Urea nitrogen [Mass/Vol] 20 mg/dL 12-06 [facility] Comment on above: Performed By: #### E BS A1C, PILLAR LIPID, PILLAR CMP, PILLAR CBC #### [facility] [address] [place] [address] Urine Cultureon 12-20-2024 Bacteria identified Cx Nom (U) Urine Culture Results >100,000 col/ml Mixed Bacterial Skin Contaminants 2 Days PERFORMED BY: [place] [address] PATHOLOGIST COLOR CONSULTANT BASSAM Wolff [facility] Comment on above: Performed By: #### C UU, ADDONUAPLUS #### [facility] [address] [place] [address] Urine cultureOrdered By: Yg Dumont on 12-20-2024 Bacteria identified Cx Nom (U) [facility] Urobilinogen Test strip (U) [Mass/Vol]Ordered By: Cecilio Dumont on 12-20-2024 Urobilinogen (U) [Mass/Vol] Normal mg/dL Normal [facility] pH of Urine by Test stripOrd ered By: Cecilio Dumont on 12-20-2024 pH (U) 5.0 [pH] 5.0-9.0 [facility] Comment on above: Order Comment: Name Collection Type:: Clean-Voided Midstream Performed By: #### C UU, ADDONUAPLUS #### [facility] [address] [place] [address] Ambulatory Visit Summaryon 0 12-03-2024 Ambulatory Visit Summary Ambulatory Visit Summary JR NANCY Estrada :1960 Visit Date:12/03/2024 Ambulatory Visit Instructions Your Care Team Attending Physician - ZAYRA PACHECO, Anthony Serna Primary Care Physician - Cheikh PACHECO, Cecilio This Is Your Medications List Contact prescribing physician if questions or concerns aspirin (aspirin 81 mg Oral EC Tab) carvedilol (Coreg 12.5 mg Tab) hydrochlorothiazide (hydrochlorothiazide 12.5 mg Tab) hyoscyamine (Levsin 0.125 mg SL Tab) ibuprofen (Motrin 800 mg Tab) lisinopril (lisinopril 40 mg Tab) ondansetron (ondansetron 4 mg Dis Tab) pantoprazole (Protonix 40 mg Tab-DR) rimegepant (Nurtec ODT 75 mg oral tablet, disintegrating) Procedures Performed left knee arthroscopy (05/20/2013), Arthroscopy of knee, Breast reduction, 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 Discharge Vitals Heart Rate (Peripheral) 71 Respiratory Rate 16 Blood Pressure 129/63 Height 172.72 cm Height 68 in Weight 100.0 kg Weight 220.462 lb BMI 33.52 Medications What How Much When Instructions Unchanged aspirin (aspirin 81 mg Oral EC Tab) 1 Tablets By Mouth Every day Contact prescribing physician if questions or concerns Unchanged carvedilol (Coreg 12.5 mg Tab) 1 Tablets By Mouth 2 times a day Contact prescribing physician if questions or concerns Unchanged hydrochlorothiazide (hydrochlorothiazide 12.5 mg Tab) 1 Tablets By Mouth Every day Contact prescribing physician if questions or concerns Unchanged hyoscyamine (Levsin 0.125 mg SL Tab) 1 Tablets By Mouth Every 6 hours as needed for pain Contact prescribing physician if questions or concerns Unchanged ibuprofen (Motrin 800 mg Tab) By Mouth Every 6 hours as needed for Pain Contact prescribing physician if questions or concerns Unchanged lisinopril (lisinopril 40 mg Tab) 1 Tablets By Mouth Every day Contact prescribing physician if questions or concerns Unchanged ondansetron (ondansetron 4 mg Dis Tab) 1 Tablets By Mouth 4 times a day Contact prescribing physician if questions or concerns Unchanged pantoprazole (Protonix 40 mg Tab-DR) 1 Tablets By Mouth Every day Contact prescribing physician if questions or concerns Unchanged rimegepant (Nurtec ODT 75 mg oral tablet, disintegrating) 1 Tablets Sublingual Once Contact prescribing physician if questions or concerns Allergies Bactrim (Rash) Ceftin (Hives) Influenza Virus Vaccine (Hives) Topamax (Multiple symptoms) Ultram (Hives) Vibramycin (Hives) codeine (Vomiting) erythromycin (Hives) morphine (Hives, Swelling) penicillin (Hives) Problems Ongoing - Any problem that you are currently receiving treatment for. Anxiety Benign essential hypertension BMI 33.0-33.9,adult Cerebrovascular accident Cerebrovascular disease Cyst of pancreas Depressive disorder Diverticular disease Gastroesophageal reflux disease Hepatic steatosis High density lipoprotein deficiency History of nephrolithiasis History of TIA (transient ischemic attack) HTN (hypertension) Metabolic syndrome X Migraine Obesity due to excess calories Seasonal allergic rhinitis Thyroid nodule Tricuspid regurgitation Patient Survey You may receive a survey via text or e-mail asking about your office visit. Please share your experience with us by completing your survey. We appreciate your feedback and thank you for choosing us for your care. Patient Portal You may access all of your results and other medical record information on our secure patient portal. If you are not signed up for this yet, please contact [employer] at [phone] to get signed up today. Language Information Language assistance services are available as needed. Normal [facility] Appearance of UrineOrdered B y: Cecilio Dumont on 12-03-2024 Appearance (U) Clear Clear [facility] Comment on above: Order Comment: Name Collection Type:: Clean-Voided Midstream Performed By: #### A DDONUAPLUS, CUU #### [facility] [address] [place], [place] [id number] [place] Bacteria [Presence] in Urine by AutomatedOrdered By: Cecilio Dumont on 12-03-2024 Bacteria Auto Ql (U) None seen [HPF] None Seen [facility] Bilirubin Test strip Ql (U)O rdered By: Ceciloi Dumont on 12-03-2024 Bilirubin Ql (U) Negative Negative [facility] Color of Urine by AutoOrdere d By: Cecilio Dumont on 12-03-2024 Color (U) Light-yellow Yellow [facility] Comment on above: Order Comment: Name Collection Type:: Clean-Voided Midstream Performed By: #### A DDONUAPLUS, CUU #### [facility] [address] [place] [address] [place] Dipstick and Microscopicon 0 12-03-2024 Bacteria,Urine None Seen Normal None Seen [facility] Comment on above: Order Comment: Name Collection Type:: Clean-Voided Midstream Performed By: #### A DDONUAPLUS, CUU #### [facility] [address] [place] [address] [place] Bilirubin,Urine Negative Normal Negative [facility] Comment on above: Order Comment: Name Collection Type:: Clean-Voided Midstream Performed By: #### A DDONUAPLUS, CUU #### [facility] [address] Glucose Ql (U) Normal Normal Normal [facility] Comment on above: Order Comment: Name Collection Type:: Clean-Voided Midstream Performed By: #### A DDONUAPLUS, CUU #### [place] [address] [place] Hyaline Casts,Urine None Normal 0-8 [facility] Comment on above: Order Comment: Name Collection Type:: Clean-Voided Midstream Result Comment: PERF ORMED BY: [place] [address] PATHOLOGIST COLOR CONSULTANT BASSAM BRADFORD M.D. Performed By: #### A DDONUAPLUS, CUU #### [place] [address] [place] Nitrite,Urine Negative Normal Negative [facility] Comment on above: Order Comment: Name Collection Type:: Clean-Voided Midstream Performed By: #### A DDONUAPLUS, CUU #### [place] [address] [place] Occult Blood,Urine Negative Normal Negative [facility] Comment on above: Order Comment: Name Collection Type:: Clean-Voided Midstream Performed By: #### A DDONUAPLUS, CUU #### [place] [address] [place] Protein,Urine Negative Normal Negative [facility] Comment on above: Order Comment: Name Collection Type:: Clean-Voided Midstream Performed By: #### A DDONUAPLUS, CUU #### [place] [address] [place] RBC,Urine None Seen Normal 0-4 [facility] Comment on above: Order Comment: Name Collection Type:: Clean-Voided Midstream Performed By: #### A DDONUAPLUS, CUU #### [place] [address] [place] Specificy [place],Urine 1.011 Normal 1.001-1.03 0 [facility] Comment on above: Order Comment: Name Collection Type:: Clean-Voided Midstream Performed By: #### A DDONUAPLUS, CUU #### [facility] [address] Squamous Epithelial Cell,Urine 1-2 Normal 0-2 [facility] Comment on above: Order Comment: Name Collection Type:: Clean-Voided Midstream Performed By: #### A DDONUAPLUS, CUU #### [facility] [address] [place] [address] [place] Urobilinogen,Urine Normal Normal Normal [facility] Comment on above: Order Comment: Name Collection Type:: Clean-Voided Midstream Performed By: #### A DDONUAPLUS, CUU #### [facility] [address] [place] [address] WBC,Urine 1-2 Normal 0-4 [facility] Comment on above: Order Comment: Name Collection Type:: Clean-Voided Midstream Performed By: #### A DDONUAPLUS, CUU #### [facility] [address] [place] [address] Epithelial cells.squamous [# /area] in Urine sediment by Automated countOrdered By: Cecilio Dumont on 12-03-2024 Epithelial cells.squamous Auto (Urine sed) [#/Area] 1-2 [HPF] 0-2 [facility] Erythrocytes [#/area] in Uri ne sediment by Automated countOrdered By: Cecilio Dumont on 12-03-2024 RBC Auto (Urine sed) [#/Area] None seen [HPF] 0-4 [facility] Glucose [Mass/volume] in Uri ne by Test stripOrdered By: Cecilio Dumont on 12-03-2024 Glucose Test strip (U) [Mass/Vol] Normal mg/dL Normal [facility] Hemoglobin Test strip Ql (U) Ordered By: Cecilio Dumont on 12-03-2024 Hemoglobin Ql (U) Negative Negative [facility] Hyaline casts [#/area] in Ur ine sediment by Automated countOrdered By: Cecilio Dumont on 12-03-2024 Hyaline casts Auto (Urine sed) [#/Area] None [LPF] 0-8 [facility] [facility] Ketones [Presence] in Urine by Test stripOrdered By: Cecilio Cheikh on 12-03-2024 Ketones Ql (U) Negative Negative [facility] Comment on above: Order Comment: Name Collection Type:: Clean-Voided Midstream Performed By: #### A DDONUAPLUS, CUU #### [facility] [address] Leukocyte esterase [Presence ] in Urine by Test stripOrdered By: Cecilio Cheikh on 12-03-2024 Leukocyte esterase Test strip Ql (U) Negative Negative [facility] Comment on above: Order Comment: Name Collection Type:: Clean-Voided Midstream Performed By: #### A DDONUAPLUS, CUU #### [facility] [address] [place] [address] [place] Leukocytes [#/area] in Urine sediment by Automated countOrdered By: Cecilio Hoy on 12-03-2024 WBC Auto (Urine sed) [#/Area] 1-2 [HPF] 0-4 [facility] Nitrite Test strip Ql (U)Ord ered By: Cecilio Cheikh on 12-03-2024 Nitrite Ql (U) Negative Negative [facility] Protein Test strip (U) [Mass /Vol]Ordered By: Cecilio Dumont on 12-03-2024 Protein (U) [Mass/Vol] Negative Negative [facility] Specific gravity Test strip (U) [Rel density]Ordered By: Cecilio Cheikh on 12-03-2024 Specific gravity (U) [Rel density] 1.011 1.001-1.03 0 [facility] Urine Cultureon 12-03-2024 Bacteria identified Cx Nom (U) >100,000 colonies/ml mixed bacterial skin contaminants 2 Days PERFORMED BY: [place] [address] PATHOLOGIST COLOR CONSULTANT BASSAM BRADFORD M.D. Normal [facility] Comment on above: Performed By: #### A DDONUAPLUS, CUU ####[facility] [id number] [place] [id number] [facility] Urine cultureOrdered By: Yg Dumont on 12-03-2024 Bacteria identified Cx Nom (U) 2 Days [facility] Urobilinogen Test strip (U) [Mass/Vol]Ordered By: Cecilio Dumont on 12-03-2024 Urobilinogen (U) [Mass/Vol] Normal mg/dL Normal [facility] pH of Urine by Test stripOrd ered By: Cecilio Dumont on 12-03-2024 pH (U) 5.5 [pH] 5.0-9.0 [facility] Comment on above: Order Comment: Name Collection Type:: Clean-Voided Midstream Performed By: #### A EAGLE AL #### [facility] [address] [place], [place] [id number] [facility] US abdomen limitedon 025 US abdomen limited [facility] Main [place] [address] [place] [address] Ultrasound Report Signed Patient: Nancy Hooper MR#: [id number] 68 : 1960 Acct:[id number] Age/Sex: 64 / F ADM Date: 11/23/24 Loc: Room: Type: [facility] Attending Dr: Cecilio Dumont MD Ordering Provider: Cecilio Dumont MD Date of Service: 11/23/24 US/US abdomen limited: R10.13,R10.12 Copies to: Cecilio Dumont MD EXAMINATION TYPE: US abdomen limited DATE OF EXAM ORDERED: 11/23/2024 9:27 AM HISTORY: Epigastric pain radiating to back, occasional right upper quadrant pain, fatty liver on prior CT COMPARISON: NONE TECHNIQUE: Realtime imaging limited to the right upper quadrant was performed. FINDINGS: Stones are noted in the gallbladder lumen. The gallbladder wall measures 2 mm in thickness. The common bile duct measures 6 mm in diameter.. No intrahepatic or extrahepatic biliary dilatation is seen. The liver is echogenic in respect to the right renal cortex suggesting hepatic steatosis. Hepatopedal flow is noted in the main portal vein. Partial visualization of the right kidney reveals no gross hydronephrosis. Partial visualization of the pancreas reveals no abnormality. ? US/US abdomen limited IMPRESSION: Findings are consistent with hepatic steatosis. Gallstones are noted in the gallbladder lumen. No sonographic evidence of acute cholecystitis. Impression dictated by: Shai Degroot M.D. 11/23/2024 5:13 PM Dictation Location: [place] [address] Tech: Ramila Su Transcribed By: ADAM 11/23/241712 Dictated By: Shai Degroot II, MD 11/23/241711 Signed By: 11/23/241712 Normal [facility] Alanine aminotransferase [En zymatic activity/volume] in Serum or PlasmaOrdered By: Cecilio Dumont on 11-21-2024 ALT [Catalytic activity/Vol] 15 U/L 7-52 [facility] Comment on above: Performed By: #### A MY, CMP, CBC, LIPASE ####[place] [id number] [place] [id number] [facility] Albumin [Mass/volume] in Ser um or Plasma by Bromocresol green (BCG) dye binding methoOrdered By: Cecilio Dumont on 11-21-2024 Albumin BCG dye [Mass/Vol] 4.1 g/dL 3.5-5.7 [facility] Alkaline phosphatase [Enzyma tic activity/volume] in Serum or PlasmaOrdered By: Cecilio Dumont on 11-21-2024 ALP [Catalytic activity/Vol] 57 U/L 34-104 [facility] Comment on above: Performed By: #### A MY, CMP, CBC, LIPASE ####[place] [id number] [place] [id number] [facility] Amylase [Enzymatic activity/ volume] in Serum or PlasmaOrdered By: Cecilio Dumont on 11-21-2024 Amylase [Catalytic activity/Vol] 34 U/L 29-103 [facility] Comment on above: Performed By: #### A MY, CMP, CBC, LIPASE ####[place] [address] [place] [address] [facility] Aspartate aminotransferase [ Enzymatic activity/volume] in Serum or PlasmaOrdered By: Cecilio Dumont on 11-21-2024 AST [Catalytic activity/Vol] 12 U/L Low 13-39 [facility] Comment on above: Performed By: #### A MY, CMP, CBC, LIPASE ####[address] Basophils [#/volume] in Bloo d by Automated countOrdered By: Cecilio Dumont on 11-21-2024 Basophils (Bld) [#/Vol] 0.1 10*3/uL 0.0-0.2 [facility] Comment on above: Result Comment: PERF ORMED BY: [facility] [address] [place] [address] PATHOLOGIST COLOR CONSULTANT BASSAM BRADFORD M.D. Performed By: #### A MY, CMP, CBC, LIPASE ####[address] Basophils/100 leukocytes in Blood by Automated countOrdered By: Cecilio Dumont on 11-21-2024 Basophils/100 WBC (Bld) 1.0 % . [facility] Comment on above: Performed By: #### A MY, CMP, CBC, LIPASE ####[address] Bilirubin.total [Mass/volume ] in Serum or PlasmaOrdered By: Cecilio Dumont on 11-21-2024 Bilirubin [Mass/Vol] 0.3 mg/dL 0.3-1.0 [facility] Comment on above: Performed By: #### A MY, CMP, CBC, LIPASE ####[address] Calcium [Mass/volume] in Ser um or PlasmaOrdered By: Cecilio Dumont on 11-21-2024 Calcium [Mass/Vol] 9.2 mg/dL 8.6-10.3 [facility] Comment on above: Performed By: #### A MY, CMP, CBC, LIPASE ####[address] Carbon dioxide, total [Moles /volume] in Serum or PlasmaOrdered By: Cecilio Dumont on 11-21-2024 CO2 [Moles/Vol] 29.6 mmol/L 21.0-31.0 [facility] Comment on above: Performed By: #### A MY, CMP, CBC, LIPASE ####[address] Chloride [Moles/volume] in S genaro or PlasmaOrdered By: Cecilio Dumont on 11-21-2024 Chloride [Moles/Vol] 107 mmol/L 98-107 [facility] Comment on above: Performed By: #### A MY, CMP, CBC, LIPASE ####[address] Complete Blood Count Auto Di ffon 11-21-2024 Mean Corpuscular HGB Conc 33.4 g/dL Normal 32.0-35.0 [facility] Comment on above: Performed By: #### A MY, CMP, CBC, LIPASE ####[address] NRBC% 0.1 /100{WBC} Normal 0-0.5 [facility] Comment on above: Performed By: #### A MY, CMP, CBC, LIPASE ####[address] White Blood Count 7.7 [CFU]/mL Normal 3.8-11.[address] [facility] Comment on above: Performed By: #### A MY, CMP, CBC, LIPASE ####[address] Comprehensive Metabolic Pane eliezer 11-21-2024 Albumin [Mass/Vol] 4.1 g/dL Normal 3.5-5.7 [facility] Comment on above: Performed By: #### A MY, CMP, CBC, LIPASE ####[address] GFR/1.73 sq M.predicted MDRD (S/P/Bld) [Vol rate/Area] mL/min/{1.73_m2} Normal [facility] Comment on above: Performed By: #### A MY, CMP, CBC, LIPASE ####[address] Creatinine [Mass/volume] in Serum or PlasmaOrdered By: Cecilio Dumont on 11-21-2024 Creatinine [Mass/Vol] 0.58 mg/dL Low 0.60-1.20 [facility] Comment on above: Performed By: #### A MY, CMP, CBC, LIPASE ####[address] Eosinophils [#/volume] in Bl ood by Automated countOrdered By: Cecilio Dumont on 11-21-2024 Eosinophils (Bld) [#/Vol] 0.1 10*3/uL 0.0-0.45 [facility] Comment on above: Performed By: #### A MY, CMP, CBC, LIPASE ####[address] Eosinophils/100 leukocytes i n Blood by Automated countOrdered By: Cecilio Dumont on 11-21-2024 Eosinophils/100 WBC (Bld) 1.2 % . [facility] Comment on above: Performed By: #### A MY, CMP, CBC, LIPASE ####[address] Erythrocyte distribution wid th [Ratio] by Automated countOrdered By: Cecilio Dumont on 11-21-2024 Erythrocyte distribution width (RBC) [Ratio] 13.5 % 11.9-15.3 [facility] Comment on above: Performed By: #### A MY, CMP, CBC, LIPASE ####[address] Erythrocytes [#/volume] in B lood by Automated countOrdered By: Cecilio Dumont on 11-21-2024 RBC (Bld) [#/Vol] 4.72 10*6/uL 3.60-5.00 [facility] Comment on above: Performed By: #### A MY, CMP, CBC, LIPASE ####[address] Glucose [Mass/volume] in Ser um or PlasmaOrdered By: Cecilio Dumont on 11-21-2024 Glucose [Mass/Vol] 118 mg/dL High 70-100 [facility] Comment on above: ADA recommended refe rence rangeRandom Glucose Reference Range is dependent on time and content of last meal. Glucose of more than 200 mg/dL in a nonstressed, ambulatory subject supports the diagnosis of Diabetes Mellitus. Result Comment: [place] Glucose Reference Range is dependent on time and content of last meal. Glucose of more than 200 mg/dL in a nonstressed, ambulatory subject supports the diagnosis of Diabetes Mellitus. ADA recommended reference range Performed By: #### A MY, CMP, CBC, LIPASE ####[place] [id number] Hematocrit [Volume Fraction] of Blood by Automated countOrdered By: Cecilio Dumont on 11-21-2024 Hematocrit (Bld) [Volume fraction] 42.8 % 34.0-46.4 [facility] Comment on above: Performed By: #### A MY, CMP, CBC, LIPASE ####[place] [id number] Hemoglobin [Mass/volume] in BloodOrdered By: Cecilio Dumont on 11-21-2024 Hemoglobin (Bld) [Mass/Vol] 14.3 g/dL 11.8-15.4 [facility] Comment on above: Performed By: #### A MY, CMP, CBC, LIPASE ####[address] Leukocytes [#/volume] correc rani for nucleated erythrocytes in Blood by Automated counOrdered By: Cecilio Dumont on 11-21-2024 WBC corrected for nucl RBC Auto (Bld) [#/Vol] 7.7 10*3/uL 3.8-11.6 [facility] Leukocytes [#/volume] in Blo od by Automated countOrdered By: Cecilio Dumont on 11-21-2024 WBC (Bld) [#/Vol] 7.7 10*3/uL 3.8-11.6 [facility] Comment on above: Performed By: #### A MY, CMP, CBC, LIPASE ####[facility] [place] [id number] [facility] Lipase [Enzymatic activity/v olume] in Serum or PlasmaOrdered By: Cecilio Dumont on 11-21-2024 Lipase [Catalytic activity/Vol] 43.0 U/L 11.0-82.0 [facility] Comment on above: Result Comment: PERF ORMED BY: [facility] [address] [place] [address] PATHOLOGIST COLOR CONSULTANT BASSAM BRADFORD M.D. Performed By: #### A MY, CMP, CBC, LIPASE ####[address] Lymphocytes [#/volume] in Bl ood by Automated countOrdered By: Cecilio Dumont on 11-21-2024 Lymphocytes (Bld) [#/Vol] 2.1 10*3/uL 1.00-4.8 [facility] Comment on above: Performed By: #### A MY, CMP, CBC, LIPASE ####[address] Lymphocytes/100 leukocytes i n Blood by Automated countOrdered By: Cecilio Dumont on 11-21-2024 Lymphocytes/100 WBC (Bld) 27.0 % . [facility] Comment on above: Performed By: #### A MY, CMP, CBC, LIPASE ####[address] MCH [Entitic mass] by Automa rani countOrdered By: Cecilio Dumont on 11-21-2024 MCH (RBC) [Entitic mass] 30.2 pg 24.7-34.3 [facility] Comment on above: Performed By: #### A MY, CMP, CBC, LIPASE ####[address] MCHC Auto (RBC) [Mass/Vol]Or dered By: Cecilio Dumont on 11-21-2024 MCHC (RBC) [Mass/Vol] 33.4 g/dL 32.0-35.0 [facility] MCV [Entitic volume] by Auto mated countOrdered By: Cecilio Dumont on 11-21-2024 MCV (RBC) [Entitic vol] 90.7 fL 80-100 [facility] Comment on above: Performed By: #### A MY, CMP, CBC, LIPASE ####[address] Monocytes [#/volume] in Bloo d by Automated countOrdered By: Cecilio Dumont on 11-21-2024 Monocytes (Bld) [#/Vol] 0.7 10*3/uL 0.0-0.8 [facility] Comment on above: Performed By: #### A MY, CMP, CBC, LIPASE ####[address] Monocytes/100 leukocytes in Blood by Automated countOrdered By: Cecilio Dumont on 11-21-2024 Monocytes/100 WBC (Bld) 9.0 % . [facility] Comment on above: Performed By: #### A MY, CMP, CBC, LIPASE ####[address] Neutrophils [#/volume] in Bl ood by Automated countOrdered By: Cecilio Dumont on 11-21-2024 Neutrophils (Bld) [#/Vol] 4.8 10*3/uL 1.8-7.7 [facility] Comment on above: Performed By: #### A MY, CMP, CBC, LIPASE ####[address] Neutrophils/100 leukocytes i n Blood by Automated countOrdered By: Cecilio Dumont on 11-21-2024 Neutrophils/100 WBC (Bld) 61.8 % . [facility] Comment on above: Performed By: #### A MY, CMP, CBC, LIPASE ####[address] No Panel InformationOrdered By: Cecilio Dumont on 11-21-2024 Estimated GFR (CKD-EPI) > 60.0 mL/Min [facility] Creatinine Clearance (Chem N/A [facility] Nucleated erythrocytes [Pres ence] in Blood by Automated countOrdered By: Cecilio Dumont on 11-21-2024 Nucleated RBC Auto Ql (Bld) 0.1 /100{WBC} 0-0.5 [facility] Platelet mean volume [Entiti c volume] in Blood by Automated countOrdered By: Cecilio Dumont on 11-21-2024 Platelet mean volume (Bld) [Entitic vol] 7.1 fL 6.3-10.7 [facility] Comment on above: Performed By: #### A MY, CMP, CBC, LIPASE ####[address] Platelets [#/volume] in Bloo d by Automated countOrdered By: Cecilio Dumont on 11-21-2024 Platelets (Bld) [#/Vol] 334 10*3/uL 150-450 [facility] Comment on above: Performed By: #### A MY, CMP, CBC, LIPASE ####[address] Potassium [Moles/volume] in Serum or PlasmaOrdered By: Cecilio Dumont on 11-21-2024 Potassium [Moles/Vol] 4.2 mmol/L 3.5-5.1 [facility] Comment on above: Performed By: #### A MY, CMP, CBC, LIPASE ####[address] Protein [Mass/volume] in Ser um or PlasmaOrdered By: Cecilio Dumont on 11-21-2024 Protein [Mass/Vol] 7.0 g/dL 6.4-8.9 [facility] Comment on above: Performed By: #### A MY, CMP, CBC, LIPASE ####[address] Serum globulin measurement b y calculation (mass/volume)Ordered By: Cecilio Dumont on 11-21-2024 Globulin (S) [Mass/Vol] 2.9 g/dL [facility] Comment on above: Performed By: #### A MY, CMP, CBC, LIPASE ####[address] Serum or plasma albumin/glob ulin mass ratioOrdered By: Cecilio Dumont on 11-21-2024 Albumin/Globulin [Mass ratio] 1.4 {ratio} [facility] Comment on above: Performed By: #### A MY, CMP, CBC, LIPASE ####[place] [id number] Serum or plasma anion gap de terminationOrdered By: Cecilio Dumont on 11-21-2024 Anion gap [Moles/Vol] 10.6 mmol/L 6.0-15.0 [facility] Comment on above: Performed By: #### A MY, CMP, CBC, LIPASE ####[place] [id number] Sodium [Moles/volume] in Ser um or PlasmaOrdered By: Cecilio Dumont on 11-21-2024 Sodium [Moles/Vol] 143 mmol/L 136-145 [facility] Comment on above: Performed By: #### A MY, CMP, CBC, LIPASE ####[place] [id number] Urea nitrogen [Mass/volume] in Serum or PlasmaOrdered By: Cecilio Dumont on 11-21-2024 Urea nitrogen [Mass/Vol] 25 mg/dL 12-06 [facility] Comment on above: Performed By: #### A MY, CMP, CBC, LIPASE ####[address] foot LT wo conon 10-17-19 CT foot LT wo con [facility] Main [place] [address] [place] [address] CT Scan Report Signed Patient: Nancy Hooper MR#: [id number] 68 : 1960 Acct:[id number] Age/Sex: 64 / F ADM Date: 10/16/24 Loc: CT Room: Type: [facility] Attending Dr: Cecilio Dumont MD Copies to: Cecilio Dumont MD Ordering Provider: Cecilio Dumont MD Date of Service: 10/16/24 CT/CT foot LT wo con: M79.672 ([id number]) CT/CT ankle LT wo con: M79.672 CT ankle LT wo con, CT foot LT wo con 10/16/2024 8:10 AM SIGNS AND SYMPTOMS: Injury to left foot and ankle with bruising and swelling TECHNIQUE: Multidetector CT axial slices of the left foot and left ankle without IV contrast. Multiplanar and 3-D reformats were performed and viewed on a separate workstation and reviewed to further define anatomy and possible pathology. CT was performed with one or more of the following dose reduction techniques: Automated exposure control, adjustment of the mA and/or kV according to patient size, or use of iterative reconstruction technique. COMPARISON: 09/27/2024 FINDINGS: Left ankle: The talus, medial malleolus, and lateral malleolus are preserved. The subtalar joints and tibiotalar joints are preserved. There is no acute displaced fracture. No evidence of joint effusion. The soft tissues are within normal limits. Tiny ossific fragments are noted separate from the medial and lateral malleolus suggesting remote well-corticated avulsion type injuries. Left foot: Degenerative changes are noted at the talonavicular joint and throughout the tarsometatarsal junctions. There is an os perineum which is a normal variant. There is mild narrowing of the first metatarsophalangeal joint. There is no evidence of acute displaced fracture. There is plantar and Achilles surface calcaneal spurring. There is nonspecific diffuse soft tissue swelling. CT/CT ankle LT wo con IMPRESSION: Left ankle: No fracture or dislocation. The soft tissues are within normal limits. Left foot: No fracture. Degenerative changes are noted at the talonavicular junction and at the tarsometatarsal junctions. There is plantar and Achilles surface calcaneal spurring. Nonspecific diffuse soft tissue swelling is present. Impression dictated by: Shai Degroot M.D. 10/16/2024 4:27 PM Dictation Location: [place] [address] Transcribed By: ADAM 10/16/24 1997 Dictated By: Shai Degroot II, MD 10/16/24 1601 Signed By: 10/16/24 1622 Normal [facility] XR foot LT 2Von 09-27-2024 XR foot LT 2V [facility] [place] [address] XRay Report Signed Patient: Nancy Hooper MR#: [id number] 68 : 1960 Acct:[id number] Age/Sex: 64 / F ADM Date: 09/27/24 Loc: XD Room: Type: [facility] Attending Dr: Cecilio Dumont MD Copies to: Cecilio Dumont MD Ordering Provider: Cecilio Dumont MD Date of Service: 09/27/24 XR/XR foot LT 2V: M79.672 2 views left foot plain film COMPARISON:None HISTORY: Left foot injury. Lateral pain ACUTE FINDINGS: None DEGENERATIVE CHANGE: Moderate. Posterior and inferior calcaneal spurring SOFT TISSUE FINDINGS: Unremarkable JOINT EFFUSION: None POSTOP CHANGES: None BONE MINERALIZATION: Adequate XR/XR foot LT 2V IMPRESSION: No acute displaced fracture Impression dictated by: Juwan Sanchez M.D. 09/27/2024 4:09 PM Dictation Location: [place] [address] Transcribed By: [facility] 09/27/24 1609 Dictated By: Juwan Sanchez DO 09/27/24 1608 Signed By: 09/27/24 1609 Normal [facility] Basophils Auto (Bld) [#/Vol] Ordered By: Renny Walton on 11-13-2023 Basophils (Bld) [#/Vol] 0.1 10*3/uL 0.0-0.2 [facility] Basophils/100 WBC Auto (Bld) Ordered By: Renny Walton on 11-13-2023 Basophils/100 WBC (Bld) 1.1 % . [facility] Calcium [Mass/volume] in Ser um or PlasmaOrdered By: Renny Walton on 11-13-2023 Calcium [Mass/Vol] 9.1 mg/dL 8.6-10.3 [facility] Carbon dioxide, total [Moles /volume] in Serum or PlasmaOrdered By: Renny Walton on 11-13-2023 CO2 [Moles/Vol] 28.1 mmol/L 21.0-31.0 [facility] Chloride [Moles/volume] in S genaro or PlasmaOrdered By: Renny Walton on 11-13-2023 Chloride [Moles/Vol] 107 mmol/L 98-107 [facility] Cholesterol [Mass/volume] in Serum or PlasmaOrdered By: Renny Walton on 11-13-2023 Cholesterol [Mass/Vol] 174 mg/dL 140-200 [facility] Comment on above: Chol less than 200 m g/dl low riskChol 201-239 mg/dl borderline riskChol 240 mg/dl and greater high risk Cholesterol in LDL Calc [Mas s/Vol]Ordered By: Renny Walton on 11-13-2023 Cholesterol in LDL [Mass/Vol] 98 mg/dL 0-100 [facility] Comment on above: LDL ATP III CLASSIFI CATIONLDL less than 100 mg/dL OptimalLDL 100-129 mg/dL Near or above optimalLDL 130-159 mg/dL Borderline highLDL 160-189 mg/dL HighLDL greater than 189 mg/dL Very high Cholesterol in VLDL Calc [Ma ss/Vol]Ordered By: Renny Walton on 11-13-2023 Cholesterol in VLDL [Mass/Vol] 24 mg/dL [facility] Creatinine [Mass/volume] in Serum or PlasmaOrdered By: Renny Walton on 11-13-2023 Creatinine [Mass/Vol] 0.62 mg/dL 0.60-1.20 [facility] Eosinophils Auto (Bld) [#/Vo l]Ordered By: Renny Walton on 11-13-2023 Eosinophils (Bld) [#/Vol] 0.1 10*3/uL 0.0-0.45 [facility] Eosinophils/100 WBC Auto (Bl d)Ordered By: Renny Walton on 11-13-2023 Eosinophils/100 WBC (Bld) 2.3 % . [facility] Erythrocyte distribution wid th Auto (RBC) [Ratio]Ordered By: Renny Walton on 11-13-2023 Erythrocyte distribution width (RBC) [Ratio] 13.6 % 11.9-15.3 [facility] Glucose [Mass/volume] in Ser um or PlasmaOrdered By: Renny Walton on 11-13-2023 Glucose [Mass/Vol] 103 mg/dL High 70-100 [facility] Comment on above: ADA recommended refe rence range Glucose mean value [Mass/vol ume] in Blood Estimated from glycated hemoglobinOrdered By: Renny Walton on 11-13-2023 Average glucose Estimated from glycated hemoglobin (Bld) [Mass/Vol] 111 mg/dL [facility] Hematocrit Auto (Bld) [Volum e fraction]Ordered By: Renny Walton on 11-13-2023 Hematocrit (Bld) [Volume fraction] 42.1 % 34.0-46.4 [facility] Hemoglobin [Mass/volume] in BloodOrdered By: Renny Walton on 11-13-2023 Hemoglobin (Bld) [Mass/Vol] 13.9 g/dL 11.8-15.4 [facility] Laboratory - Hematology and Cell countsOrdered By: Renny Walton on 11-13-2023 HbA1c (Bld) [Mass fraction] 5.5 % 4.3-5.6 [facility] Comment on above: Increased risk for d iabetes: 5.7 - 6.4diabetes: >6.4glycemic control for adults with diabetes: <7.0 Leukocytes [#/volume] correc rani for nucleated erythrocytes in Blood by Automated counOrdered By: Renny Walton on 11-13-2023 WBC corrected for nucl RBC Auto (Bld) [#/Vol] 5.8 10*3/uL 3.8-11.6 [facility] Lymphocytes Auto (Bld) [#/Vo l]Ordered By: Renny Walton on 11-13-2023 Lymphocytes (Bld) [#/Vol] 2.0 10*3/uL 1.00-4.8 [facility] Lymphocytes/100 WBC Auto (Bl d)Ordered By: Renny Walton on 11-13-2023 Lymphocytes/100 WBC (Bld) 34.5 % . [facility] MCH Auto (RBC) [Entitic mass ]Ordered By: Renny Walton on 11-13-2023 MCH (RBC) [Entitic mass] 29.7 pg 24.7-34.3 [facility] MCHC Auto (RBC) [Mass/Vol]Or dered By: Renny Walton on 11-13-2023 MCHC (RBC) [Mass/Vol] 32.9 g/dL 32.0-35.0 [facility] MCV Auto (RBC) [Entitic vol] Ordered By: Renny Walton on 11-13-2023 MCV (RBC) [Entitic vol] 90.2 fL 80-100 [facility] [facility] Mon[facility] Auto (Bld) [#/Vol] Ordered By: Renny Walton on 11-13-2023 Monocytes (Bld) [#/Vol] 0.5 10*3/uL 0.0-0.8 [facility] Monocytes/100 WBC Auto (Bld) Ordered By: Renny Walton on 11-13-2023 Monocytes/100 WBC (Bld) 8.0 % . [facility] Neutrophils Auto (Bld) [#/Vo l]Ordered By: Renny Walton on 11-13-2023 Neutrophils (Bld) [#/Vol] 3.1 10*3/uL 1.8-7.7 [facility] Neutrophils/100 WBC Auto (Bl d)Ordered By: Renny Walton on 11-13-2023 Neutrophils/100 WBC (Bld) 54.1 % . [facility] No Panel InformationOrdered By: Renny Walton on 11-13-2023 Estimated GFR (CKD-EPI) > 60.0 mL/Min [facility] Creatinine Clearance (Chem N/A [facility] Nucleated erythrocytes [Pres ence] in Blood by Automated countOrdered By: Renny Walton on 11-13-2023 Nucleated RBC Auto Ql (Bld) 0.1 /100{WBC} 0-0.5 [facility] Platelet mean volume Auto (B ld) [Entitic vol]Ordered By: Renny Walton on 11-13-2023 Platelet mean volume (Bld) [Entitic vol] 7.0 fL 6.3-10.7 [facility] Platelets Auto (Bld) [#/Vol] Ordered By: Renny Walton on 11-13-2023 Platelets (Bld) [#/Vol] 276 10*3/uL 150-450 [facility] Potassium [Moles/volume] in Serum or PlasmaOrdered By: Renny Walton on 11-13-2023 Potassium [Moles/Vol] 4.1 mmol/L 3.5-5.1 [facility] RBC Auto (Bld) [#/Vol]Ordere d By: Renny Walton on 11-13-2023 RBC (Bld) [#/Vol] 4.67 10*6/uL 3.60-5.00 [facility] Serum or plasma anion gap de terminationOrdered By: Renny Walton on 11-13-2023 Anion gap [Moles/Vol] 10.0 mmol/L 6.0-15.0 [facility] Serum or plasma high density lipoprotein (HDL) cholesterol measurementOrdered By: Renny Walton on 11-13-2023 Cholesterol in HDL [Mass/Vol] 51 mg/dL 23-92 [facility] Comment on above: HDL CHOL ATP-III CLA SSIFICATION Cardiovascular RiskHDL > or equal to 60 mg/dL LOWHDL < 40 mg/dL HIGH Serum or plasma total choles terol/high density lipoprotein (HDL) cholesterol mass ratOrdered By: Renny Walton on 11-13-2023 Cholesterol.total/Chol esterol in HDL [Mass ratio] 3.4 {ratio} <5.0 [facility] Sodium [Moles/volume] in Ser um or PlasmaOrdered By: Renny Walton on 11-13-2023 Sodium [Moles/Vol] 141 mmol/L 136-145 [facility] Thyrotropin [Units/volume] i n Serum or PlasmaOrdered By: Renny Walton on 11-13-2023 TSH Qn 1.75 m[IU]/L 0.45-5.33 [facility] Triglyceride [Mass/volume] i n Serum or PlasmaOrdered By: Renny Walton on 11-13-2023 Triglyceride [Mass/Vol] 123 mg/dL 0-149 [facility] Comment on above: TRIG ATP III CLASSIF ICATIONTRIG less than 150 mg/dL NormalTRIG 150-199 mg/dL Borderline highTRIG 200-500 mg/dL High TRIG greater than 500 mg/dL Very highStandard traceable to the Center for Disease Conrtrol and Prevention (CDC) test method. Urea nitrogen [Mass/volume] in Serum or PlasmaOrdered By: Renny Walton on 11-13-2023 Urea nitrogen [Mass/Vol] 24 mg/dL 7-25 [facility] WBC Auto (Bld) [#/Vol]Ordere d By: Renny Walton on 11-13-2023 WBC (Bld) [#/Vol] 5.8 10*3/uL 3.8-11.6 [facility] A1C HEMOGLOBINon 05-31-2023 HbA1c (Bld) [Mass fraction] 5.6 % [facility] Other HbA1c (Bld) [Mass fraction]o n 05-31-2023 A1C HEMOGLOBIN [facility] [employer] Other CT ANGIO CORONARY ART WITH H EARTFLOW IF SCORE >30%on 03-14-2023 CT ANGIO CORONARY ART WITH HEARTFLOW IF SCORE >30% Interpreted By: Shai Tolentino, ADDENDUM: NON-CARDIOVASCULAR FINDINGS INCLUDED LUNGS, AIRWAYS AND PLEURA Endotracheal / endobronchial lesion: Negative Nodule: Negative Airspace disease: Negative Pleural effusion: Negative Pneumothorax: Negative Other: No acute or contributory unanticipated findings INCLUDED NON-CARDIOVASCULAR CECILY AND MEDIASTINUM Adenopathy: Negative Included esophagus: Unremarkable Other: No acute or contributory unanticipated findings INCLUDED BONES: No acute skeletal findings, noting less sensitivity and specificity without dedicated sagittal and coronal reformatted series. INCLUDED CHEST WALL No acute or contributory unanticipated findings INCLUDED UPPER ABDOMEN No acute or contributory unanticipated findings ------- NON-CARDIOVASCULAR IMPRESSION NO ACUTE OR CONTRIBUTORY UNEXPECTED FINDINGS OF THE INCLUDED NON-CARDIOVASCULAR STRUCTURES NOTE THIS ADDENDUM IS SOLELY FOR INTERPRETATION OF ANATOMY OUTSIDE THE CARDIOVASCULAR SYSTEM. INTERPRETATION OF AND REPORTING OF THE CARDIOVASCULAR STRUCTURES ARE THE SOLE RESPONSIBILITY OF THE PROFESSOR OF JOURNALISM SUBMITTING THE ORIGINAL REPORT (NOT THIS ADDENDUM) Signed by: Shai Tolentino 03/14/2023 1:47 PM -------- ORIGINAL REPORT -------- Dictation workstation: [id number] Interpreted By: Anthony Yo, STUDY: CT ANGIO CORONARY ART WITH HEARTFLOW IF SCORE >30%; 03/14/2023 12:00 pm INDICATION: Signs/Symptoms:r07.9. COMPARISON: None. ACCESSION NUMBER(S): [id number] ORDERING CLINICIAN: KAJAL MCCAULEY TECHNIQUE: Using multi-detector CT technology, Karishma 64-slice scanner, axial, sequential imaging with retrospective gating was performed of the chest following the intravenous administration of contrast material. A low-osmolar contrast agent was used 75 ml of Omnipaque 350. Using prospective ECG gating, CT scan of the coronary arteries was performed without intravenous contrast. Coronary calcium scoring was performed according to the method of Agatston. The patient was premedicated with atenolol and 0.4 mg sublingual nitroglycerin per protocol for heart rate control and coronary dilation, respectively. For optimization of anatomic evaluation, multiplanar reconstruction, maximum intensity projections, and advanced 3-D off-line postprocessing were performed on a dedicated stand-alone workstation under the direct supervision of the interpreting physician. CT Dose-Length Product (DLP): 768.6 mGy/cm CT Dose Reduction Employed: Yes iterative reconstruction FINDINGS: The left main is normal sized vessel that bifurcates into the LAD and circumflex. There is no significant atherosclerotic change or stenotic disease. LEFT ANTERIOR DESCENDING ARTERY: The LAD is a normal size vessel that wraps around the apex. Proximal/mid/distal noncalcified plaque without significant stenosis. LAD gives rise to 2 acute diagonal branches. D1: Proximal noncalcified plaque without significant stenosis. D2: Proximal noncalcified plaque without significant stenosis. LEFT CIRCUMFLEX ARTERY: The LCfx is a normal size vessel, which is non-dominant. Proximal noncalcified plaque without significant stenosis. Motion artifact present. LCfx gives rise to 2 obtuse marginal branches. OM1 proximal noncalcified plaque without significant stenosis. OM2 proximal noncalcified plaque without significant stenosis. RIGHT CORONARY ARTERY: The RCA is a normal size vessel, which is dominant . It gives rise to a conus branch, marley branch, and 2 acute marginal branches. In its distal segment it bifurcates into the PDA and PV branch. Proximal/mid/distal noncalcified plaque without significant stenosis. Right PDA proximal noncalcified plaque without significant stenosis. Right PLV proximal/mid noncalcified plaque without significant stenosis. Coronary artery calcium score 0. CARDIAC CHAMBERS: The cardiac chambers demonstrate normal atrioventricular and ventriculoarterial concordance, and systemic and pulmonary venous return. LEFT VENTRICLE: Normal size End diastolic volume 93 ml, 41 ml/m2 LEFT VENTRICLE MASS: 100 gm, 44 gm/m2 RIGHT VENTRICLE: Normal size End diastolic volume 112 ml, 50 ml/m2 LEFT ATRIUM: Normal size End systolic volume 81 ml, 36 ml/m2 RIGHT ATRIUM: Normal size End systolic volume 75 ml, 34 ml/m2 INTERATRIAL SEPTUM: Intact. AORTIC VALVE: The aortic valve is trileaflet in morphology. No calcifications. MITRAL VALVE: No thickening/calcification. THORACIC AORTA: The visualized thoracic aorta is normal in course, caliber, and contour. There is no acute aortic pathology, such as dissection, intramural hematoma, or contained rupture. The aortic arch is not included on this examination. PERICARDIUM: There is no pericardial effusion of thickening. IMPRESSION: 1. Mild diffuse coronary artery dise (more content not included)... [facility] Comment on above: Order Comment: Order in aemr prep given pt to obtain lab order CT CARDIAC SCORING WO IV CON TRASTon 02-14-2023 CT CARDIAC SCORING WO IV CONTRAST Interpreted By: Shai Tolentino, ADDENDUM: NON-CARDIOVASCULAR FINDINGS INCLUDED LUNGS, AIRWAYS AND PLEURA Endotracheal / endobronchial lesion: Negative Nodule: Negative Airspace disease: Negative Pleural effusion: Negative Pneumothorax: Negative Other: No acute or contributory unanticipated findings INCLUDED NON-CARDIOVASCULAR CECILY AND MEDIASTINUM Adenopathy: Negative Included esophagus: Unremarkable Other: No acute or contributory unanticipated findings INCLUDED BONES: No acute skeletal findings, noting less sensitivity and specificity without dedicated sagittal and coronal reformatted series. INCLUDED CHEST WALL No acute or contributory unanticipated findings INCLUDED UPPER ABDOMEN No acute or contributory unanticipated findings ------- NON-CARDIOVASCULAR IMPRESSION NO ACUTE OR CONTRIBUTORY UNEXPECTED FINDINGS OF THE INCLUDED NON-CARDIOVASCULAR STRUCTURES NOTE THIS ADDENDUM IS SOLELY FOR INTERPRETATION OF ANATOMY OUTSIDE THE CARDIOVASCULAR SYSTEM. INTERPRETATION OF AND REPORTING OF THE CARDIOVASCULAR STRUCTURES ARE THE SOLE RESPONSIBILITY OF THE PROFESSOR OF JOURNALISM SUBMITTING THE ORIGINAL REPORT (NOT THIS ADDENDUM) Signed by: Shai Tolentino 02/17/2023 2:28 PM -------- ORIGINAL REPORT -------- Dictation workstation: [id number] Interpreted By: Anthony Yo, STUDY: CT CARDIAC SCORING WO IV CONTRAST; 02/14/2023 9:00 am INDICATION: Signs/Symptoms:chest pain. COMPARISON: None. ACCESSION NUMBER(S): [id number] ORDERING CLINICIAN: ANNELIESE GARCIA TECHNIQUE: Using prospective ECG gating, CT scan of the coronary arteries was performed without intravenous contrast. Coronary calcium scoring was performed according to the method of Agatston. CT Dose-Length Product (DLP): 60.7 mGy*cm CT Dose Reduction Employed: Yes, prospective gating, iterative reconstruction. FINDINGS: The score and distribution of calcium in the coronary arteries is as follows: LM 0 LAD 0 LCx 0 RCA 0 Total 0 The visualized mid/lower ascending thoracic aorta measures 3.6 cm in diameter. The heart is normal in size. No pericardial effusion is present. IMPRESSION: 1. Coronary artery calcium score of 0*. *Coronary artery calcium scoring may be helpful in predicting the risk for future coronary heart disease events. According to the [employer] Clinical Expert Consensus Task Force, such testing provides important prognostic information in patients with more than one coronary heart disease risk factor. The coronary artery calcium score correlates with the annual risk of a non-fatal myocardial infarction or coronary heart disease . Coronary artery score Annual Risk 0-99 0.4% 100-399 1.3% >400 2.4% These three breakpoints correspond to lower, intermediate and high risk states for future coronary events. Such information should be used, along with appropriate clinical judgment, to make decisions regarding the intensity of risk factor management strategies to treat blood lipids and to modify other non-lipid coronary risk factors. Reference: [place] P et al. Circulation. 2007; 115:402-426 [employer] Machine Operator: Dr. Anthony Yo, Date: 02/14/2023 10:23 am Signed by: Anthony Yo 02/14/2023 10:23 AM Dictation workstation: [id number] [facility] Calcium [Mass/volume] in Ser um or PlasmaOrdered By: Nabil Baker on 01-04-2023 Calcium [Mass/Vol] 9.1 mg/dL 8.6-10.3 [facility] Carbon dioxide, total [Moles /volume] in Serum or PlasmaOrdered By: Nabil Baker on 01-04-2023 CO2 [Moles/Vol] 25.7 mmol/L 21.0-31.0 [facility] Chloride [Moles/volume] in S genaro or PlasmaOrdered By: Nabil Baker on 01-04-2023 Chloride [Moles/Vol] 108 mmol/L 98-107 [facility] Cholesterol [Mass/volume] in Serum or PlasmaOrdered By: Nabil Baker on 01-04-2023 Cholesterol [Mass/Vol] 122 mg/dL 140-200 [facility] Comment on above: Chol less than 200 m g/dl low riskChol 201-239 mg/dl borderline riskChol 240 mg/dl and greater high risk Cholesterol in LDL Calc [Mas s/Vol]Ordered By: Nabil Baker on 01-04-2023 Cholesterol in LDL [Mass/Vol] 67 mg/dL 0-100 [facility] Comment on above: LDL ATP III CLASSIFI CATIONLDL less than 100 mg/dL OptimalLDL 100-129 mg/dL Near or above optimalLDL 130-159 mg/dL Borderline highLDL 160-189 mg/dL HighLDL greater than 189 mg/dL Very high Cholesterol in VLDL Calc [Ma ss/Vol]Ordered By: Nabil Baker on 01-04-2023 Cholesterol in VLDL [Mass/Vol] 15 mg/dL [facility] Creatinine [Mass/volume] in Serum or PlasmaOrdered By: Nabil Baker on 01-04-2023 Creatinine [Mass/Vol] 0.83 mg/dL 0.60-1.20 [facility] Glucose [Mass/volume] in Ser um or PlasmaOrdered By: Nabil Baker on 01-04-2023 Glucose [Mass/Vol] 101 mg/dL 70-100 [facility] Comment on above: ADA recommended refe rence rangeRandom Glucose Reference Range is dependent on time and content of last meal. Glucose of more than 200 mg/dL in a nonstressed, ambulatory subject supports the diagnosis of Diabetes Mellitus. Magnesium [Mass/volume] in S genaro or PlasmaOrdered By: Nabil Baker on 01-04-2023 Magnesium [Mass/Vol] 2.2 mg/dL 1.9-2.7 [facility] No Panel InformationOrdered By: Nabil Baker on 01-04-2023 Estimated GFR (CKD-EPI) > 60.0 mL/Min [facility] Creatinine Clearance (Chem 87.71 [facility] Potassium [Moles/volume] in Serum or PlasmaOrdered By: Nabil Baker on 01-04-2023 Potassium [Moles/Vol] 3.6 mmol/L 3.5-5.1 [facility] Serum or plasma anion gap de terminationOrdered By: Nabil Baker on 01-04-2023 Anion gap [Moles/Vol] 10.9 mmol/L 6.0-15.0 [facility] Serum or plasma high density lipoprotein (HDL) cholesterol measurementOrdered By: Nabil Baker on 01-04-2023 Cholesterol in HDL [Mass/Vol] 39 mg/dL [facility] Comment on above: HDL CHOL ATP-III CLA SSIFICATION Cardiovascular RiskHDL > or equal to 60 mg/dL LOWHDL < 40 mg/dL HIGH Serum or plasma total choles terol/high density lipoprotein (HDL) cholesterol mass ratOrdered By: Nabil Baker on 01-04-2023 Cholesterol.total/Chol esterol in HDL [Mass ratio] 3.1 {ratio} <5.0 [facility] Sodium [Moles/volume] in Ser um or PlasmaOrdered By: Nabil Baker on 01-04-2023 Sodium [Moles/Vol] 141 mmol/L 136-145 [facility] Triglyceride [Mass/volume] i n Serum or PlasmaOrdered By: Nabil Baker on 01-04-2023 Triglyceride [Mass/Vol] 78 mg/dL 0-149 [facility] Comment on above: TRIG ATP III CLASSIF ICATIONTRIG less than 150 mg/dL NormalTRIG 150-199 mg/dL Borderline highTRIG 200-500 mg/dL High TRIG greater than 500 mg/dL Very highStandard traceable to the Center for Disease Conrtrol and Prevention (CDC) test method. Troponin I.cardiac [Mass/vol ume] in Serum or Plasma by Detection limit <= 0.01 ng/Ordered By: Nabil Baker on 01-04-2023 Troponin I.cardiac DL <= 0.01 ng/mL [Mass/Vol] 8.5 pg/mL 0.0-15.0 [facility] Urea nitrogen [Mass/volume] in Serum or PlasmaOrdered By: Nabil Baker on 01-04-2023 Urea nitrogen [Mass/Vol] 25 mg/dL 12-06 [facility] Activated partial thrombopla stin time (aPTT) in platelet poor plasma by coagulation aOrdered By: Erika Escobedo on 01-03-2023 aPTT Coag (PPP) [Time] 20.6 s 25.1-36.5 [facility] Alanine aminotransferase [En zymatic activity/volume] in Serum or PlasmaOrdered By: Erika Escobedo on 01-03-2023 ALT [Catalytic activity/Vol] 25 U/L 7 [facility] Albumin [Mass/volume] in Ser um or Plasma by Bromocresol green (BCG) dye binding methoOrdered By: Erika Escobedo on 01-03-2023 Albumin BCG dye [Mass/Vol] 4.1 g/dL 3.5-5.7 [facility] Alkaline phosphatase [Enzyma tic activity/volume] in Serum or PlasmaOrdered By: Erika Escobedo on 01-03-2023 ALP [Catalytic activity/Vol] 55 U/L 34-104 [facility] Aspartate aminotransferase [ Enzymatic activity/volume] in Serum or PlasmaOrdered By: Erika Escobedo on 01-03-2023 AST [Catalytic activity/Vol] 20 U/L 13-39 [facility] Basophils Auto (Bld) [#/Vol] Ordered By: Erika Escobedo on 01-03-2023 Basophils (Bld) [#/Vol] 0.1 10*3/uL 0.0-0.2 [facility] Basophils/100 WBC Auto (Bld) Ordered By: Erika Escobedo on 01-03-2023 Basophils/100 WBC (Bld) 1.0 % . [facility] Bilirubin Test strip Ql (U)O rdered By: Erika Escobedo on 01-03-2023 Bilirubin Ql (U) Negative Negative [facility] Bilirubin.total [Mass/volume ] in Serum or PlasmaOrdered By: Erika Escobedo on 01-03-2023 Bilirubin [Mass/Vol] 0.4 mg/dL 0.3-1.0 [facility] Calcium [Mass/volume] in Ser um or PlasmaOrdered By: Erika Escobedo on 01-03-2023 Calcium [Mass/Vol] 9.3 mg/dL 8.6-10.3 [facility] Carbon dioxide, total [Moles /volume] in Serum or PlasmaOrdered By: Erika Escobedo on 01-03-2023 CO2 [Moles/Vol] 24.5 mmol/L 21.0-31.0 [facility] Chloride [Moles/volume] in S genaro or PlasmaOrdered By: Erika Escobedo on 01-03-2023 Chloride [Moles/Vol] 106 mmol/L 98-107 [facility] Color Auto (U)Ordered By: Cari Escobedo on 01-03-2023 Color (U) Yellow Yellow [facility] Creatine kinase [Enzymatic a ctivity/volume] in Serum or PlasmaOrdered By: Erika Escobedo on 01-03-2023 CK [Catalytic activity/Vol] 31 U/L 30-223 [facility] Creatinine [Mass/volume] in Serum or PlasmaOrdered By: Erika Escobedo on 01-03-2023 Creatinine [Mass/Vol] 0.82 mg/dL 0.60-1.20 [facility] Eosinophils Auto (Bld) [#/Vo l]Ordered By: Erika Escobedo on 01-03-2023 Eosinophils (Bld) [#/Vol] 0.1 10*3/uL 0.0-0.45 [facility] Eosinophils/100 WBC Auto (Bl d)Ordered By: Erika Escobedo on 01-03-2023 Eosinophils/100 WBC (Bld) 0.7 % . [facility] Erythrocyte distribution wid th Auto (RBC) [Ratio]Ordered By: Erika Escobedo on 01-03-2023 Erythrocyte distribution width (RBC) [Ratio] 12.8 % 11.9-15.3 [facility] Globulin Calc (S) [Mass/Vol] Ordered By: Erika Escobedo on 01-03-2023 Globulin (S) [Mass/Vol] 3.3 g/dL [facility] Glucose [Mass/volume] in Ser um or PlasmaOrdered By: Erika Escobedo on 01-03-2023 Glucose [Mass/Vol] 107 mg/dL 70-100 [facility] Comment on above: ADA recommended refe rence rangeRandom Glucose Reference Range is dependent on time and content of last meal. Glucose of more than 200 mg/dL in a nonstressed, ambulatory subject supports the diagnosis of Diabetes Mellitus. Hematocrit Auto (Bld) [Volum e fraction]Ordered By: Erika Escobedo on 01-03-2023 Hematocrit (Bld) [Volume fraction] 43.7 % 34.0-46.4 [facility] Hemoglobin [Mass/volume] in BloodOrdered By: Erika Escobedo on 01-03-2023 Hemoglobin (Bld) [Mass/Vol] 14.7 g/dL 11.8-15.4 [facility] INR in Platelet poor plasma by Coagulation assayOrdered By: Erika Escobedo on 01-03-2023 INR Coag (PPP) [Relative time] 1.1 {INR} [facility] Comment on above: INR Therapeutic Rang e A) Pre- and Peroperative OAT started two weeks before surgery. NOT HIP SURGERY: 1.5 - 2.5 HIP SURGERY: 2 - 3B) Primary and secondary prevention of venous THROMBOSIS: 2 - 3C) Active venous thrombosis, pulmonary embolismand prevention of recurrent venous thrombosis: 2 - 3D) Prevention of arterial thromboembolismincluding patients with mechanical heart valves: 3 - 4.5 Ketones Auto test strip (U) [Mass/Vol]Ordered By: Erika Escobedo on 01-03-2023 Ketones (U) [Mass/Vol] Negative Negative [facility] - CoagulationOrde red By: Erika Escobedo on 01-03-2023 PT Coag (PPP) [Time] 12.7 s 9.0-12.9 [facility] Leukocytes [#/volume] correc rani for nucleated erythrocytes in Blood by Automated counOrdered By: Erika Escobedo on 01-03-2023 WBC corrected for nucl RBC Auto (Bld) [#/Vol] 8.2 10*3/uL 3.8-11.6 [facility] Lymphocytes Auto (Bld) [#/Vo l]Ordered By: Erika Escobedo on 01-03-2023 Lymphocytes (Bld) [#/Vol] 1.2 10*3/uL 1.00-4.8 [facility] Lymphocytes/100 WBC Auto (Bl d)Ordered By: Erika Escobedo on 01-03-2023 Lymphocytes/100 WBC (Bld) 15.0 % . [facility] MCH Auto (RBC) [Entitic mass ]Ordered By: Erika Escobedo on 01-03-2023 MCH (RBC) [Entitic mass] 30.3 pg 24.7-34.3 [facility] MCHC Auto (RBC) [Mass/Vol]Or dered By: Erika Escobedo on 01-03-2023 MCHC (RBC) [Mass/Vol] 33.6 g/dL 32.0-35.0 [facility] MCV Auto (RBC) [Entitic vol] Ordered By: Erika Escobedo on 01-03-2023 MCV (RBC) [Entitic vol] 90.2 fL 80-100 [facility] Monocyte distribution width [Entitic volume] in Blood by AutomatedOrdered By: Erika Escobedo on 01-03-2023 Monocyte distribution width Auto (Bld) [Entitic vol] 22.07 % 0.00-20.00 [facility] Comment on above: For adults in ED, MD W > 20.0 may be associated with a higher risk of sepsis during the first 12 hrs of hospital admission Monocytes Auto (Bld) [#/Vol] Ordered By: Erika Escobedo on 01-03-2023 Monocytes (Bld) [#/Vol] 0.7 10*3/uL 0.0-0.8 [facility] Monocytes/100 WBC Auto (Bld) Ordered By: Erika Escobedo on 01-03-2023 Monocytes/100 WBC (Bld) 8.4 % . [facility] Natriuretic peptide B [Mass/ Vol]Ordered By: Erika Escobedo on 01-03-2023 Natriuretic peptide B (Bld) [Mass/Vol] 19.0 pg/mL 5-100 [facility] Neutrophils Auto (Bld) [#/Vo l]Ordered By: Erika Escobedo on 01-03-2023 Neutrophils (Bld) [#/Vol] 6.2 10*3/uL 1.8-7.7 [facility] Neutrophils/100 WBC Auto (Bl d)Ordered By: Erika Escobedo on 01-03-2023 Neutrophils/100 WBC (Bld) 74.9 % . [facility] Nitrite Test strip Ql (U)Ord ered By: Erika Escobedo on 01-03-2023 Nitrite Ql (U) Negative Negative [facility] No Panel InformationOrdered By: Erika Escobedo on 01-03-2023 Estimated GFR (CKD-EPI) > 60.0 mL/Min [facility] Creatinine Clearance (Chem 89.05 [facility] Nucleated erythrocytes [Pres ence] in Blood by Automated countOrdered By: Erika Escobedo on 01-03-2023 Nucleated RBC Auto Ql (Bld) 0.1 /100{WBC} 0-0.5 [facility] Platelet mean volume Auto (B ld) [Entitic vol]Ordered By: Erika Escobedo on 01-03-2023 Platelet mean volume (Bld) [Entitic vol] 7.2 fL 6.3-10.7 [facility] Platelets Auto (Bld) [#/Vol] Ordered By: Erika Escobedo on 01-03-2023 Platelets (Bld) [#/Vol] 270 10*3/uL 150-450 [facility] Potassium [Moles/volume] in Serum or PlasmaOrdered By: Erika Escobedo on 01-03-2023 Potassium [Moles/Vol] 3.5 mmol/L 3.5-5.1 [facility] Protein Auto test strip (U) [Mass/Vol]Ordered By: Erika Escobedo on 01-03-2023 Protein (U) [Mass/Vol] Negative Negative [facility] Protein [Mass/volume] in Ser um or PlasmaOrdered By: Erika Escobedo on 01-03-2023 Protein [Mass/Vol] 7.4 g/dL 6.4-8.9 [facility] RBC Auto (Bld) [#/Vol]Ordere d By: Erika Escobedo on 01-03-2023 RBC (Bld) [#/Vol] 4.84 10*6/uL 3.60-5.00 [facility] Serum or plasma albumin/glob ulin mass ratioOrdered By: Erika Escobedo on 01-03-2023 Albumin/Globulin [Mass ratio] 1.2 {ratio} [facility] Serum or plasma anion gap de terminationOrdered By: Erika Escobedo on 01-03-2023 Anion gap [Moles/Vol] 11.0 mmol/L 6.0-15.0 [facility] Sodium [Moles/volume] in Ser um or PlasmaOrdered By: Erika Escobedo on 01-03-2023 Sodium [Moles/Vol] 138 mmol/L 136-145 [facility] Specific gravity Auto test s trip (U) [Rel density]Ordered By: Erika Escobedo on 01-03-2023 Specific gravity (U) [Rel density] 1.024 1.001-1.03 0 [facility] Troponin I.cardiac [Mass/vol ume] in Serum or Plasma by Detection limit <= 0.01 ng/Ordered By: Erika Escobedo on 01-03-2023 Troponin I.cardiac DL <= 0.01 ng/mL [Mass/Vol] 13.3 pg/mL 0.0-15.0 [facility] Urea nitrogen [Mass/volume] in Serum or PlasmaOrdered By: Erika Escobedo on 01-03-2023 Urea nitrogen [Mass/Vol] 29 mg/dL 7-25 [facility] Urine clarity by refractomet ry automatedOrdered By: Erika Escobedo on 01-03-2023 Clarity Refractometry automated (U) Clear Clear [facility] Urine glucose measurement by automated test strip (mass/volume)Ordered By: Erika Escobedo on 01-03-2023 Glucose Auto test strip (U) [Mass/Vol] Normal mg/dL Normal [facility] Urine hemoglobin detection b y automated test stripOrdered By: Erika Escobedo on 01-03-2023 Hemoglobin Auto test strip Ql (U) Negative Negative [facility] Urine leukocyte esterase det ection by automated test stripOrdered By: Erika Escobedo on 01-03-2023 Leukocyte esterase Auto test strip Ql (U) Negative Negative [facility] Urobilinogen Auto test strip (U) [Mass/Vol]Ordered By: Erika Escobedo on 01-03-2023 Urobilinogen (U) [Mass/Vol] Normal mg/dL Normal [facility] WBC Auto (Bld) [#/Vol]Ordere d By: Erika Escobedo on 01-03-2023 WBC (Bld) [#/Vol] 8.2 10*3/uL 3.8-11.6 [facility] pH Auto test strip (U)Ordere d By: Erika Escobedo on 01-03-2023 pH (U) 6.5 [pH] 5.0-9.0 [facility] Alanine aminotransferase [En zymatic activity/volume] in Serum or PlasmaOrdered By: Renny Walton on 11-08-2022 ALT [Catalytic activity/Vol] 30 U/L 7-52 [facility] Albumin [Mass/volume] in Ser um or Plasma by Bromocresol green (BCG) dye binding methoOrdered By: Renny Walton on 11-08-2022 Albumin BCG dye [Mass/Vol] 4.3 g/dL 3.5-5.7 [facility] Alkaline phosphatase [Enzyma tic activity/volume] in Serum or PlasmaOrdered By: Renny Walton on 11-08-2022 ALP [Catalytic activity/Vol] 53 U/L 34-104 [facility] Aspartate aminotransferase [ Enzymatic activity/volume] in Serum or PlasmaOrdered By: Renny Walton on 11-08-2022 AST [Catalytic activity/Vol] 19 U/L 13-39 [facility] Basophils Auto (Bld) [#/Vol] Ordered By: Renny Walton on 11-08-2022 Basophils (Bld) [#/Vol] 0.1 10*3/uL 0.0-0.2 [facility] Basophils/100 WBC Auto (Bld) Ordered By: Renny Walton on 11-08-2022 Basophils/100 WBC (Bld) 1.0 % . [facility] Bilirubin.total [Mass/volume ] in Serum or PlasmaOrdered By: Renny Walton on 11-08-2022 Bilirubin [Mass/Vol] 0.7 mg/dL 0.3-1.0 [facility] Calcium [Mass/volume] in Ser um or PlasmaOrdered By: Renny Walton on 11-08-2022 Calcium [Mass/Vol] 9.1 mg/dL 8.6-10.3 [facility] Carbon dioxide, total [Moles /volume] in Serum or PlasmaOrdered By: Renny Walton on 11-08-2022 CO2 [Moles/Vol] 28.2 mmol/L 21.0-31.0 [facility] Chloride [Moles/volume] in S genaro or PlasmaOrdered By: Renny Walton on 11-08-2022 Chloride [Moles/Vol] 106 mmol/L 98-107 [facility] Cholesterol [Mass/volume] in Serum or PlasmaOrdered By: Renny Walton on 11-08-2022 Cholesterol [Mass/Vol] 167 mg/dL 140-200 [facility] Comment on above: Chol less than 200 m g/dl low riskChol 201-239 mg/dl borderline riskChol 240 mg/dl and greater high risk Cholesterol in LDL Calc [Mas s/Vol]Ordered By: Renny Walton on 11-08-2022 Cholesterol in LDL [Mass/Vol] 91 mg/dL 0-100 [facility] Comment on above: LDL ATP III CLASSIFI CATIONLDL less than 100 mg/dL OptimalLDL 100-129 mg/dL Near or above optimalLDL 130-159 mg/dL Borderline highLDL 160-189 mg/dL HighLDL greater than 189 mg/dL Very high Cholesterol in VLDL Calc [Ma ss/Vol]Ordered By: Renny Walton on 11-08-2022 Cholesterol in VLDL [Mass/Vol] 20 mg/dL [facility] Creatinine [Mass/volume] in Serum or PlasmaOrdered By: Renny Walton on 11-08-2022 Creatinine [Mass/Vol] 0.63 mg/dL 0.60-1.20 [facility] Eosinophils Auto (Bld) [#/Vo l]Ordered By: Renny Walton on 11-08-2022 Eosinophils (Bld) [#/Vol] 0.1 10*3/uL 0.0-0.45 [facility] Eosinophils/100 WBC Auto (Bl d)Ordered By: Renny Walton on 11-08-2022 Eosinophils/100 WBC (Bld) 1.0 % . [facility] Erythrocyte distribution wid th Auto (RBC) [Ratio]Ordered By: Renny Walton on 11-08-2022 Erythrocyte distribution width (RBC) [Ratio] 13.1 % 11.9-15.3 [facility] Globulin Calc (S) [Mass/Vol] Ordered By: Renny Walton on 11-08-2022 Globulin (S) [Mass/Vol] 2.9 g/dL [facility] Glucose [Mass/volume] in Ser um or PlasmaOrdered By: Renny Walton on 11-08-2022 Glucose [Mass/Vol] 110 mg/dL 70-100 [facility] Comment on above: ADA recommended refe rence range Glucose mean value [Mass/vol ume] in Blood Estimated from glycated hemoglobinOrdered By: Renny Walton on 11-08-2022 Average glucose Estimated from glycated hemoglobin (Bld) [Mass/Vol] 114 mg/dL [facility] Hematocrit Auto (Bld) [Volum e fraction]Ordered By: Renny Walton on 11-08-2022 Hematocrit (Bld) [Volume fraction] 42.2 % 34.0-46.4 [facility] Hemoglobin [Mass/volume] in BloodOrdered By: Renny Walton on 11-08-2022 Hemoglobin (Bld) [Mass/Vol] 14.2 g/dL 11.8-15.4 [facility] Laboratory - Hematology and Cell countsOrdered By: Renny Walton on 11-08-2022 HbA1c (Bld) [Mass fraction] 5.6 % 4.3-5.6 [facility] Comment on above: Increased risk for d iabetes: 5.7 - 6.4diabetes: >6.4glycemic control for adults with diabetes: <7.0 Leukocytes [#/volume] correc rani for nucleated erythrocytes in Blood by Automated counOrdered By: Renny Walton on 11-08-2022 WBC corrected for nucl RBC Auto (Bld) [#/Vol] 7.0 10*3/uL 3.8-11.6 [facility] Lymphocytes Auto (Bld) [#/Vo l]Ordered By: Renny Walton on 11-08-2022 Lymphocytes (Bld) [#/Vol] 1.9 10*3/uL 1.00-4.8 [facility] Lymphocytes/100 WBC Auto (Bl d)Ordered By: Renny Walton on 11-08-2022 Lymphocytes/100 WBC (Bld) 26.9 % . [facility] MCH Auto (RBC) [Entitic mass ]Ordered By: Renny Walton on 11-08-2022 MCH (RBC) [Entitic mass] 30.8 pg 24.7-34.3 [facility] MCHC Auto (RBC) [Mass/Vol]Or dered By: Renny Walton on 11-08-2022 MCHC (RBC) [Mass/Vol] 33.5 g/dL 32.0-35.0 [facility] MCV Auto (RBC) [Entitic vol] Ordered By: Renny Walton on 11-08-2022 MCV (RBC) [Entitic vol] 91.7 fL 80-100 [facility] Monocytes Auto (Bld) [#/Vol] Ordered By: Renny Walton on 11-08-2022 Monocytes (Bld) [#/Vol] 0.5 10*3/uL 0.0-0.8 [facility] Monocytes/100 WBC Auto (Bld) Ordered By: Renny Walton on 11-08-2022 Monocytes/100 WBC (Bld) 7.0 % . [facility] Neutrophils Auto (Bld) [#/Vo l]Ordered By: Renny Walton on 11-08-2022 Neutrophils (Bld) [#/Vol] 4.5 10*3/uL 1.8-7.7 [facility] Neutrophils/100 WBC Auto (Bl d)Ordered By: Renny Walton on 11-08-2022 Neutrophils/100 WBC (Bld) 64.1 % . [facility] No Panel InformationOrdered By: Renny Walton on 11-08-2022 Estimated GFR (CKD-EPI) > 60.0 mL/Min [facility] Nicotine Metabolite Negative Cutoff=25 [facility] Comment on above: Performed at: BN - [address] [id number] Director: Merary Mccartney MD, Phone: [phone] Pharmacy Creatinine Clearance (Chem N/A [facility] Nucleated erythrocytes [Pres ence] in Blood by Automated countOrdered By: Renny Walton on 11-08-2022 Nucleated RBC Auto Ql (Bld) 0.1 /100{WBC} 0-0.5 [facility] Platelet mean volume Auto (B ld) [Entitic vol]Ordered By: Renny Walton on 11-08-2022 Platelet mean volume (Bld) [Entitic vol] 7.0 fL 6.3-10.7 [facility] Platelets Auto (Bld) [#/Vol] Ordered By: Renny Walton on 11-08-2022 Platelets (Bld) [#/Vol] 304 10*3/uL 150-450 [facility] Potassium [Moles/volume] in Serum or PlasmaOrdered By: Renny Walton on 11-08-2022 Potassium [Moles/Vol] 3.9 mmol/L 3.5-5.1 [facility] Protein [Mass/volume] in Ser um or PlasmaOrdered By: Renny Walton on 11-08-2022 Protein [Mass/Vol] 7.2 g/dL 6.4-8.9 [facility] RBC Auto (Bld) [#/Vol]Ordere d By: Renny Walton on 11-08-2022 RBC (Bld) [#/Vol] 4.60 10*6/uL 3.60-5.00 [facility] Serum or plasma albumin/glob ulin mass ratioOrdered By: Renny Walton on 11-08-2022 Albumin/Globulin [Mass ratio] 1.5 {ratio} [facility] Serum or plasma anion gap de terminationOrdered By: Renny Walton on 11-08-2022 Anion gap [Moles/Vol] 11.7 mmol/L 6.0-15.0 [facility] Serum or plasma high density lipoprotein (HDL) cholesterol measurementOrdered By: Renny Walton on 11-08-2022 Cholesterol in HDL [Mass/Vol] 55 mg/dL 23-92 [facility] Comment on above: HDL CHOL ATP-III CLA SSIFICATION Cardiovascular RiskHDL > or equal to 60 mg/dL LOWHDL < 40 mg/dL HIGH Serum or plasma total choles terol/high density lipoprotein (HDL) cholesterol mass ratOrdered By: Renny Walton on 11-08-2022 Cholesterol.total/Chol esterol in HDL [Mass ratio] 3.0 {ratio} <5.0 [facility] Sodium [Moles/volume] in Ser um or PlasmaOrdered By: Renny Walotn on 11-08-2022 Sodium [Moles/Vol] 142 mmol/L 136-145 [facility] Thyrotropin [Units/volume] i n Serum or PlasmaOrdered By: Renny Walton on 11-08-2022 TSH Qn 2.88 m[IU]/L 0.45-5.33 [facility] Triglyceride [Mass/volume] i n Serum or PlasmaOrdered By: Renny Walton on 11-08-2022 Triglyceride [Mass/Vol] 103 mg/dL 0-149 [facility] Comment on above: TRIG ATP III CLASSIF ICATIONTRIG less than 150 mg/dL NormalTRIG 150-199 mg/dL Borderline highTRIG 200-500 mg/dL High TRIG greater than 500 mg/dL Very highStandard traceable to the Center for Disease Conrtrol and Prevention (CDC) test method. Urea nitrogen [Mass/volume] in Serum or PlasmaOrdered By: Renny Walton on 11-08-2022 Urea nitrogen [Mass/Vol] 17 mg/dL 7-25 [facility] WBC Auto (Bld) [#/Vol]Ordere d By: Renny Walton on 11-08-2022 WBC (Bld) [#/Vol] 7.0 10*3/uL 3.8-11.6 [facility] Alanine aminotransferase [En zymatic activity/volume] in Serum or PlasmaOrdered By: Cecilio Dumont on 08-16-2022 ALT [Catalytic activity/Vol] 37 U/L 7-52 [facility] Albumin [Mass/volume] in Ser um or Plasma by Bromocresol green (BCG) dye binding methoOrdered By: Cecilio Dumont on 08-16-2022 Albumin BCG dye [Mass/Vol] 4.3 g/dL 3.5-5.7 [facility] Alkaline phosphatase [Enzyma tic activity/volume] in Serum or PlasmaOrdered By: Cecilio Dumont on 08-16-2022 ALP [Catalytic activity/Vol] 56 U/L 34-104 [facility] Aspartate aminotransferase [ Enzymatic activity/volume] in Serum or PlasmaOrdered By: Cecilio Dumont on 08-16-2022 AST [Catalytic activity/Vol] 22 U/L 13-39 [facility] Basophils Auto (Bld) [#/Vol] Ordered By: Cecilio Dumont on 08-16-2022 Basophils (Bld) [#/Vol] 0.1 10*3/uL 0.0-0.2 [facility] Basophils/100 WBC Auto (Bld) Ordered By: Cecilio Dumont on 08-16-2022 Basophils/100 WBC (Bld) 0.9 % . [facility] Bilirubin.total [Mass/volume ] in Serum or PlasmaOrdered By: Cecilio Dumont on 08-16-2022 Bilirubin [Mass/Vol] 0.6 mg/dL 0.3-1.0 [facility] Calcium [Mass/volume] in Ser um or PlasmaOrdered By: Cecilio Dumont on 08-16-2022 Calcium [Mass/Vol] 9.4 mg/dL 8.6-10.3 [facility] Carbon dioxide, total [Moles /volume] in Serum or PlasmaOrdered By: Cecilio Dumont on 08-16-2022 CO2 [Moles/Vol] 30.5 mmol/L 21.0-31.0 [facility] Chloride [Moles/volume] in S genaro or PlasmaOrdered By: Cecilio Dumont on 08-16-2022 Chloride [Moles/Vol] 104 mmol/L 98-107 [facility] Creatinine [Mass/volume] in Serum or PlasmaOrdered By: Cecilio Dumont on 08-16-2022 Creatinine [Mass/Vol] 0.65 mg/dL 0.60-1.20 [facility] Eosinophils Auto (Bld) [#/Vo l]Ordered By: Cecilio Dumont on 08-16-2022 Eosinophils (Bld) [#/Vol] 0.1 10*3/uL 0.0-0.45 [facility] Eosinophils/100 WBC Auto (Bl d)Ordered By: Cecilio Dumont on 08-16-2022 Eosinophils/100 WBC (Bld) 1.1 % . [facility] Erythrocyte distribution wid th Auto (RBC) [Ratio]Ordered By: Cecilio Dumont on 08-16-2022 Erythrocyte distribution width (RBC) [Ratio] 13.0 % 11.9-15.3 [facility] Free thyroxine indexOrdered By: Cecilio Dumont on 08-16-2022 Free T4 index Calc [Mass/Vol] 2.5 1.2-4.9 [facility] Globulin Calc (S) [Mass/Vol] Ordered By: Cecilio Dumont on 08-16-2022 Globulin (S) [Mass/Vol] 3.0 g/dL [facility] Glucose [Mass/volume] in Ser um or PlasmaOrdered By: Cecilio Dumont on 08-16-2022 Glucose [Mass/Vol] 105 mg/dL 70-100 [facility] Comment on above: ADA recommended refe rence rangeRandom Glucose Reference Range is dependent on time and content of last meal. Glucose of more than 200 mg/dL in a nonstressed, ambulatory subject supports the diagnosis of Diabetes Mellitus. Hematocrit Auto (Bld) [Volum e fraction]Ordered By: Cecilio Dumont on 08-16-2022 Hematocrit (Bld) [Volume fraction] 42.3 % 34.0-46.4 [facility] Hemoglobin [Mass/volume] in BloodOrdered By: Cecilio Dmuont on 08-16-2022 Hemoglobin (Bld) [Mass/Vol] 14.2 g/dL 11.8-15.4 [facility] Iron [Mass/volume] in Serum or PlasmaOrdered By: Cecilio Dumont on 08-16-2022 Iron [Mass/Vol] 87 ug/dL 50-212 [facility] Leukocytes [#/volume] correc rani for nucleated erythrocytes in Blood by Automated counOrdered By: Cecilio Dumont on 08-16-2022 WBC corrected for nucl RBC Auto (Bld) [#/Vol] 7.0 10*3/uL 3.8-11.6 [facility] Lymphocytes Auto (Bld) [#/Vo l]Ordered By: Cecilio Dumont on 08-16-2022 Lymphocytes (Bld) [#/Vol] 1.8 10*3/uL 1.00-4.8 [facility] Lymphocytes/100 WBC Auto (Bl d)Ordered By: Cecilio Dumont on 08-16-2022 Lymphocytes/100 WBC (Bld) 26.0 % . [facility] MCH Auto (RBC) [Entitic mass ]Ordered By: Cecilio Dumont on 08-16-2022 MCH (RBC) [Entitic mass] 30.4 pg 24.7-34.3 [facility] MCHC Auto (RBC) [Mass/Vol]Or dered By: Cecilio Dumont on 08-16-2022 MCHC (RBC) [Mass/Vol] 33.7 g/dL 32.0-35.0 [facility] MCV Auto (RBC) [Entitic vol] Ordered By: Cecilio Dumont on 08-16-2022 MCV (RBC) [Entitic vol] 90.2 fL 80-100 [facility] Magnesium [Mass/volume] in S genaro or PlasmaOrdered By: Cecilio Dumont on 08-16-2022 Magnesium [Mass/Vol] 2.0 mg/dL 1.9-2.7 [facility] Monocytes Auto (Bld) [#/Vol] Ordered By: Cecilio Dumont on 08-16-2022 Monocytes (Bld) [#/Vol] 0.5 10*3/uL 0.0-0.8 [facility] Monocytes/100 WBC Auto (Bld) Ordered By: Cecilio Dumont on 08-16-2022 Monocytes/100 WBC (Bld) 7.1 % . [facility] Neutrophils Auto (Bld) [#/Vo l]Ordered By: Cecilio Dumont on 08-16-2022 Neutrophils (Bld) [#/Vol] 4.5 10*3/uL 1.8-7.7 [facility] Neutrophils/100 WBC Auto (Bl d)Ordered By: Cecilio Dumont on 08-16-2022 Neutrophils/100 WBC (Bld) 64.9 % . [facility] No Panel InformationOrdered By: Cecilio Dumont on 08-16-2022 Estimated GFR (CKD-EPI) > 60.0 mL/Min [facility] Free Thyroxine (T4) Direct 8.8 ug/dL 4.5-12.0 [facility] Pharmacy Creatinine Clearance (Chem N/A [facility] Nucleated erythrocytes [Pres ence] in Blood by Automated countOrdered By: Cecilio Dumont on 08-16-2022 Nucleated RBC Auto Ql (Bld) 0.0 /100{WBC} 0-0.5 [facility] Platelet mean volume Auto (B ld) [Entitic vol]Ordered By: Cecilio Dumont on 08-16-2022 Platelet mean volume (Bld) [Entitic vol] 7.3 fL 6.3-10.7 [facility] Platelets Auto (Bld) [#/Vol] Ordered By: Cecilio Dumont on 08-16-2022 Platelets (Bld) [#/Vol] 280 10*3/uL 150-450 [facility] Potassium [Moles/volume] in Serum or PlasmaOrdered By: Cecilio Dumont on 08-16-2022 Potassium [Moles/Vol] 3.6 mmol/L 3.5-5.1 [facility] Protein [Mass/volume] in Ser um or PlasmaOrdered By: Cecilio Dumont on 08-16-2022 Protein [Mass/Vol] 7.3 g/dL 6.4-8.9 [facility] RBC Auto (Bld) [#/Vol]Ordere d By: Cecilio Dumont on 08-16-2022 RBC (Bld) [#/Vol] 4.69 10*6/uL 3.60-5.00 [facility] Serum or plasma albumin/glob ulin mass ratioOrdered By: Cecilio Dumont on 08-16-2022 Albumin/Globulin [Mass ratio] 1.4 {ratio} [facility] Serum or plasma anion gap de terminationOrdered By: Cecilio Dumont on 08-16-2022 Anion gap [Moles/Vol] 10.1 mmol/L 6.0-15.0 [facility] Sodium [Moles/volume] in Ser um or PlasmaOrdered By: Cecilio Dumont on 08-16-2022 Sodium [Moles/Vol] 141 mmol/L 136-145 [facility] TSH DL <= 0.005 mIU/L QnOrde red By: Cecilio Dumont on 08-16-2022 TSH Qn 1.920 m[IU]/L 0.450-4.50 0 [facility] Triiodothyronine (T3) [Mass/ volume] in Serum or PlasmaOrdered By: Cecilio Dumont on 08-16-2022 T3 [Mass/Vol] 81 ng/dL 71-180 [facility] Comment on above: Performed at: - [address] [id number] Director: Tomas Nick PhD, Phone: [phone] Triiodothyronine (T3) resin uptake testOrdered By: Cecilio Dumont on 08-16-2022 T3RU 28 % 24-39 [facility] Urea nitrogen [Mass/volume] in Serum or PlasmaOrdered By: Cecilio Dumont on 08-16-2022 Urea nitrogen [Mass/Vol] 24 mg/dL 7-25 [facility] WBC Auto (Bld) [#/Vol]Ordere d By: Cecilio Dumont on 08-16-2022 WBC (Bld) [#/Vol] 7.0 10*3/uL 3.8-11.6 [facility] XR knee RT 2Von 08-08-2022 XR knee RT 2V [facility] [place] Other XR knee RT 2V [facility] [place] Other XR knee RT 2V [address] [place] [address] [place] Other XR knee RT 2V [address] [place] Other XR knee RT 2V [facility] Other XR knee RT 2V Signed [facility] [place] Other XR knee RT 2V Patient: Benny Hooper i MR#: [id number] [facility] [place] Other XR knee RT 2V 68 [facility] Other XR knee RT 2V : 1960 Acct:[id number] [facility] Other XR knee RT 2V Age/Sex: 62 / F ADM Date: 08/08/22 [facility] Other XR knee RT 2V Loc: [facility] Room: Type : REG CLI [facility] Other XR knee RT 2V Attending Dr: Dutch Strange [employer] [facility] Other XR knee RT 2V Copies to: CHRISTIANO FrankShree [facility] Other XR knee RT 2V [facility]ing [facility] Other XR knee RT 2V Date of Service: 08/08/22 [facility] Other XR knee RT 2V XR/XR wrist RT 2V: Injury of right wrist, initial encounter [facility] Other XR knee RT 2V ([id number]) XR/XR knee RT 2V: Injury of right knee, initial encounter [facility] Other XR knee RT 2V CLINICAL DATA: Wallace nt tripped and fell landing on right side yesterday. Injury at the right wrist [facility] Other XR knee RT 2V and knee. [facility] Other XR knee RT 2V RIGHT WRIST - 2 views [facility] Other XR knee RT 2V COMPARISON: None [facility] Other XR knee RT 2V AP and lateral views were obtained. No fracture or dislocation is noted. No definite acute fracture [facility] Other XR knee RT 2V or dislocation is identified. There is minimal dorsal soft tissue swelling. [facility] Other XR knee RT 2V X R/XR wrist RT 2V [facility] Other XR knee RT 2V IMPRESSION[facility] Other XR knee RT 2V NO ACUTE BONY INJURY WITHIN LIMITS OF THE AVAILABLE VIEWS. [facility] Other XR knee RT 2V RIGHT KNEE - 2 views N [facility] [place] Other XR knee RT 2V Weightbearing AP and lateral views were obtained. No acute fracture or dislocation is identified. [facility] Other XR knee RT 2V There is moderate narrowing of the medial tibiofemoral joint compartment. There is tricompartment [facility] Other XR knee RT 2V marginal spurring. T here is an enthesophyte at the insertion of the quadriceps tendon. A small knee [facility] Other XR knee RT 2V effusion is seen. Th ere is no focal soft tissue swelling. [facility] Other XR knee RT 2V DEGENERATIVE CHANGES. [facility] Other XR knee RT 2V NO ACUTE BONY INJURY. [facility] Other XR knee RT 2V Impression dictated by: Danette Granger M.D.08/08/2022 8:28 AM [facility] Other XR knee RT 2V Dictation Location: [place] [address] [facility] Other XR knee RT 2V Transcribed By: ADAM 08/08/22 08 [facility] Other XR knee RT 2V Dictated By: Danette Granger MD 08/08/22 18 [facility] Other XR knee RT 2V Signed By: [facility] Other XR knee RT 2V 08/08/22 0889 [place] Other Covid-19 PCR ([facility])on 03-17 SARS-CoV-2 (COVID-19) RNA TIFFANY+probe Ql ([facility]) Detected Critically abnormal NOT DETECTED [facility] Comment on above: Result Comment: This test is not yet approved or cleared by the [place] FDA. When there are no FDA-approved or cleared tests available, and other criteria are met, FDA can make tests available under an emergency access mechanism called an Emergency Use Authorization (EUA). The EUA for this test is supported by the [employer] of Health and Human Service's declaration that circumstances exist to justify the emergency use of in vitro diagnostics for the detection and/or diagnosis of the virus that causes COVID-19. This EUA will remain in effect for the duration of the COVID-19 declaration justifying emergency of IVDs, unless it is terminated or revoked by the FDA (after which the test may no longer be used). Performed By: #### [facility] #### [facility] [address] [place] [address] Dr. Rodney Barakat Albumin [Mass/volume] in Ser um or PlasmaOrdered By: Renny Walton on 12-16-2021 Albumin [Mass/Vol] 4.0 g/dL 3.2-5.5 [facility] Basophils Auto (Bld) [#/Vol] Ordered By: Renny Walton on 12-16-2021 Basophils (Bld) [#/Vol] 0.1 10*3/uL 0.0-0.2 [facility] Basophils/100 WBC Auto (Bld) Ordered By: Renny Walton on 12-16-2021 Basophils/100 WBC (Bld) 1.0 % . [facility] Blood hemoglobin measurement (mass/volume)Ordered By: Renny Walton on 12-16-2021 Hemoglobin (Bld) [Mass/Vol] 14.8 g/dL 11.8-15.4 [facility] Blood leukocytes automated c ount (number/volume)Ordered By: Renny Walton on 12-16-2021 WBC (Bld) [#/Vol] 6.5 10*3/uL 4.5-11.0 [facility] Cholesterol [Mass/volume] in Serum or PlasmaOrdered By: Renny Walton on 12-16-2021 Cholesterol [Mass/Vol] 189 mg/dL 140-200 [facility] Comment on above: Chol less than 200 m g/dl low risk Chol 201-239 mg/dl borderline risk Chol 240 mg/dl and greater high risk Cholesterol in LDL Calc [Mas s/Vol]Ordered By: Renny Walton on 12-16-2021 Cholesterol in LDL [Mass/Vol] 113 mg/dL 0-100 [facility] Comment on above: LDL ATP III CLASSIFI CATION LDL less than 100 mg/dL Optimal LDL 100-129 mg/dL Near or above optimal LDL 130-159 mg/dL Borderline high LDL 160-189 mg/dL High LDL greater than 189 mg/dL Very high Cholesterol in VLDL Calc [Ma ss/Vol]Ordered By: Renny Walton on 12-16-2021 Cholesterol in VLDL [Mass/Vol] 27 mg/dL [facility] Creatinine and Glomerular fi ltration rate.predicted panel (S/P/Bld)Ordered By: Renny Walton on 12-16-2021 Creatinine [Mass/Vol] 0.63 mg/dL 0.44-1.03 [facility] Eosinophils Auto (Bld) [#/Vo l]Ordered By: Renny Walton on 12-16-2021 Eosinophils (Bld) [#/Vol] 0.1 10*3/uL 0.0-0.45 [facility] Eosinophils/100 WBC Auto (Bl d)Ordered By: Renny Walton on 12-16-2021 Eosinophils/100 WBC (Bld) 1.2 % . [facility] Erythrocyte distribution wid th Auto (RBC) [Ratio]Ordered By: Renny Walton on 12-16-2021 Erythrocyte distribution width (RBC) [Ratio] 13.9 % 11.9-15.3 [facility] Estimated glomerular filtrat ion rate (GFR) non- AmericanOrdered By: Renny Walton on 12-16-2021 GFR/1.73 sq M.predicted among non-blacks MDRD (S/P/Bld) [Vol rate/Area] > 60 mL/Min [facility] Globulin Calc (S) [Mass/Vol] Ordered By: Renny Walton on 12-16-2021 Globulin (S) [Mass/Vol] 3.3 g/dL [facility] Glucose mean value [Mass/vol ume] in Blood Estimated from glycated hemoglobinOrdered By: Renny Walton on 12-16-2021 Average glucose Estimated from glycated hemoglobin (Bld) [Mass/Vol] 120 mg/dL [facility] Hematocrit Auto (Bld) [Volum e fraction]Ordered By: Renny Walton on 12-16-2021 Hematocrit (Bld) [Volume fraction] 44.9 % 34.0-46.4 [facility] Laboratory - Chemistry and C hemistry - challengeOrdered By: Renny Walton on 12-16-2021 Glucose [Mass/Vol] 111 mg/dL 70-100 [facility] Comment on above: ADA recommended refe rence range Laboratory - Hematology and Cell countsOrdered By: Renny Walton on 12-16-2021 HbA1c (Bld) [Mass fraction] 5.8 % 4.3-5.6 [facility] Comment on above: Increased risk for d iabetes: 5.7 - 6.4 diabetes: >6.4 glycemic control for adults with diabetes: <7.0 Nucleated RBC/100 WBC (Bld) [Ratio] 0.0 % 0-0.5 [facility] Lymphocytes Auto (Bld) [#/Vo l]Ordered By: Renny Walton on 12-16-2021 Lymphocytes (Bld) [#/Vol] 1.9 10*3/uL 1.00-4.8 [facility] Lymphocytes/100 WBC Auto (Bl d)Ordered By: Renny Walton on 12-16-2021 Lymphocytes/100 WBC (Bld) 29.2 % . [facility] MCH Auto (RBC) [Entitic mass ]Ordered By: Renny Walton on 12-16-2021 MCH (RBC) [Entitic mass] 30.0 pg 24.7-34.3 [facility] MCHC Auto (RBC) [Mass/Vol]Or dered By: Renny Walton on 12-16-2021 MCHC (RBC) [Mass/Vol] 33.0 g/dL 32.0-35.0 [facility] MCV Auto (RBC) [Entitic vol] Ordered By: Renny Walton on 12-16-2021 MCV (RBC) [Entitic vol] 90.8 fL 80-100 [facility] Monocyte %Ordered By: Renny Walton on 12-16-2021 Monocyte % 139 mg/dL 35-149 [facility] Comment on above: TRIG ATP III CLASSIF ICATION TRIG less than 150 mg/dL Normal TRIG 150-199 mg/dL Borderline high TRIG 200-500 mg/dL High TRIG greater than 500 mg/dL Very high Standard traceable to the Center for Disease Conrtrol and Prevention (CDC) test method. Monocytes Auto (Bld) [#/Vol] Ordered By: Renny Walton on 12-16-2021 Monocytes (Bld) [#/Vol] 0.5 10*3/uL 0.0-0.8 [facility] Monocytes/100 WBC Auto (Bld) Ordered By: Renny Walton on 12-16-2021 Monocytes/100 WBC (Bld) 7.4 % . [facility] Neutrophils Auto (Bld) [#/Vo l]Ordered By: Renny Walton on 12-16-2021 Neutrophils (Bld) [#/Vol] 4.0 10*3/uL 1.8-7.7 [facility] Neutrophils/100 WBC Auto (Bl d)Ordered By: Renny Walton on 12-16-2021 Neutrophils/100 WBC (Bld) 61.2 % . [facility] No Panel InformationOrdered By: Renny Walton on 12-16-2021 Estimated GFR () > 60 mL/Min [facility] Comment on above: GFR estimated refere nce range: According to KDOQI guidelines, <60 ml/min/1.73m2 is sufficient to diagnose a patient with chronic kidney disease. Nicotine Metabolite Negative Cutoff=25 [facility] Comment on above: Performed at: [address] [id number] [employer] Technician: Merary Mccartney MD, Phone: [phone] Pharmacy Creatinine Clearance (Chem N/A [facility] Platelet mean volume Auto (B ld) [Entitic vol]Ordered By: Renny Walton on 12-16-2021 Platelet mean volume (Bld) [Entitic vol] 7.3 fL 6.3-10.7 [facility] Platelets Auto (Bld) [#/Vol] Ordered By: Renny Walton on 12-16-2021 Platelets (Bld) [#/Vol] 286 10*3/uL 150-450 [facility] Protein [Mass/volume] in Ser um or PlasmaOrdered By: Renny Walton on 12-16-2021 Protein [Mass/Vol] 7.3 g/dL 6.1-7.9 [facility] RBC Auto (Bld) [#/Vol]Ordere d By: Renny Walton on 12-16-2021 RBC (Bld) [#/Vol] 4.94 10*6/uL 3.60-5.00 [facility] Serum or plasma alanine carter otransferase measurement without P-5'-P (enzymatic activiOrdered By: Renny Walton on 12-16-2021 ALT No additional P-5'-P [Catalytic activity/Vol] 45 U/L 10-60 [facility] Serum or plasma albumin/glob ulin mass ratioOrdered By: Renny Walton on 12-16-2021 Albumin/Globulin [Mass ratio] 1.2 {ratio} [facility] Serum or plasma alkaline dawood sphatase measurement (enzymatic activity/volume)Ordered By: Renny Walton on 12-16-2021 ALP [Catalytic activity/Vol] 64 U/L 32-92 [facility] Serum or plasma aspartate am inotransferase measurement (enzymatic activity/volume)Ordered By: Renny Walton on 12-16-2021 AST [Catalytic activity/Vol] 25 U/L 10-42 [facility] Serum or plasma calcium hernandez urement (mass/volume)Ordered By: Renny Walton on 12-16-2021 Calcium [Mass/Vol] 9.5 mg/dL 8.2-10.2 [facility] Serum or plasma chloride patrick surement (moles/volume)Ordered By: Renny Walton on 12-16-2021 Chloride [Moles/Vol] 101 mmol/L 95-114 [facility] Serum or plasma high density lipoprotein (HDL) cholesterol measurementOrdered By: Renny Walton on 12-16-2021 Cholesterol in HDL [Mass/Vol] 48 mg/dL 35-85 [facility] Comment on above: HDL CHOL ATP-III CLA SSIFICATION Cardiovascular Risk HDL > or equal to 60 mg/dL LOW HDL < 40 mg/dL HIGH Serum or plasma potassium me asurement (moles/volume)Ordered By: Renny Walton on 12-16-2021 Potassium [Moles/Vol] 4.1 mmol/L 3.5-5.1 [facility] Serum or plasma sodium measu rement (moles/volume)Ordered By: Renny Walton on 12-16-2021 Sodium [Moles/Vol] 138 mmol/L 136-146 [facility] Serum or plasma total biliru bin measurement (mass/volume)Ordered By: Renny Walton on 12-16-2021 Bilirubin [Mass/Vol] 0.6 mg/dL 0.3-1.2 [facility] Serum or plasma total carbon dioxide measurement (moles/volume)Ordered By: Renny Walton on 12-16-2021 CO2 [Moles/Vol] 28.3 mmol/L 22.0-30.0 [facility] Serum or plasma total choles terol/high density lipoprotein (HDL) cholesterol mass ratOrdered By: Renny Walton on 12-16-2021 Cholesterol.total/Chol esterol in HDL [Mass ratio] 3.9 {ratio} <5.0 [facility] Serum or plasma urea nitroge n measurement (mass/volume)Ordered By: Renny Walton on 12-16-2021 Urea nitrogen [Mass/Vol] 22 mg/dL 9-23 [facility] TSH DL <= 0.005 mIU/L QnOrde red By: Renny Walton on 12-16-2021 TSH Qn 2.52 m[IU]/L 0.45-5.33 [facility] COVID-19 SOFIAOrdered By: Wilfrido Walton on 12-09-2021 SARS-CoV+SARS-CoV-2 (COVID-19) Ag IA.rapid Ql (Resp) Negative Negative [facility] Comment on above: This is a duplicate [place] SARS Antigen (FERN) result to be used for statistical tracking purpose only. No Panel InformationOrdered By: Renny Walton on 12-09-2021 SARS Antigen (LFIA) [facility] No Panel Informationon 10-28 Normal [facility] [address] [place] Work Phone: No Panel Informationon 10-27 -[facility] [address] [place] Work Phone: Office Visit (Cardiology)on 10-22-2021 Follow-up visit Diagnoses/Problems Assessed Chest pain (786.50) (R07.9) Essential hypertension, benign (401.1) (I10) Class 2 obesity with body mass index (BMI) of 36.0 to 36.9 in adult (278.00,V85.36) (E66.9,Z68.36) Never a smoker Orders Chest pain IO EKG Electrocardiogram- 12 Lead; Status:Complete; Done: 22Oct2021 Chest pain, Essential hypertension, benign NM Cardiac Stress/Rest Nuclear Med Order; Status:Hold For - Scheduling,Retrospective Authorization; Requested for:22Oct2021; Radiologist to Determine Optimal Study : Y What are the patient's signs and symptoms? : chest pain Class 2 obesity with body mass index (BMI) of 36.0 to 36.9 in adult Healthy Weight Tips; Status:Complete - Retrospective Authorization; Done: 22Oct2021 Essential hypertension, benign Start: hydroCHLOROthiazide 12.5 MG Oral Capsule; TAKE 1 CAPSULE ONCE DAILY Continue with our present treatment plan.; Status:Complete - Retrospective Authorization; Done: 22Oct2021 Basic Metabolic Panel; Status:Active - Retrospective Authorization; Requested for:[id number]; SocHx: Never a smoker Tobacco Use Screening; Status:Complete; Done: 22Oct2021 Patient Instructions By signing my name below, Regina Ferreira Lpn, Scribe, attest that this documentation has been prepared under the direction and in the presence of Dr. Anneliese Garcia MD. All medical record entries made by the Scribe were at my direction and personally dictated by me. I have reviewed the chart and agree that the record accurately reflects my personal performance of the history, physical exam, discussion and plan. Please bring all medicines, vitamins, and herbal supplements with you when you come to the office. Prescriptions will not be filled unless you are compliant with your follow up appointments or have a follow up appointment scheduled as per instruction of your physician. Refills should be requested at the time of your visit. Hold Coreg morning of stress Cardiolite Stress HCTZ 12.5 mg daily Blood Pressure Follow Up In 4-6 weeks Follow up in 3 months The provider reviewed the following test(s) and result(s) with the patient: ECG and echocardiogram History of Present Illness Patient is here for cardiovascular evaluation for chest pain. 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 Both evaluation was benign. I was able to retrieve and review her record. Patient reports he has history of hypertension that has been suboptimally controlled. She has been treated for diverticulitis recently. The patient report intermittent episodes of chest pain. She report radiation to the left arm was associated shortness of breath. There is no other precipitating, alleviated or associated symptoms. The episode typically is not exertional. Patient reports functional class I. She denies orthopnea or lower extremity edema. Recent echocardiogram, hospitalization record lab work and EKG all noted and reviewed with her. Assessment 1. Episode of chest pain in patient with moderate risk for ischemic heart disease requiring evaluation in the emergency room x2 2. Hypertension suboptimally controlled 3. Obesity 4. Diverticular disease and diverticulitis recently Plan 1. I educated the patient in regards to anginal symptomatology 2. I advised her to proceed with Cardiolite exercise stress test in view of her risk factor, repeated presentation with chest pain and history of hypertension which likely result in falsely positive ECG response to exercise 3. I counseled the patient at great length and regarding to nonpharmacologic approach for management of hypertension including salt restriction, exercise, increase her fluid intake and DASH diet 4. I advised the patient to add hydrochlorothiazide 12.5 mg once daily to optimize blood pressure control and I advised her to have a blood pressure check and a BMP in 6 weeks 5. Follow-up in 3 to 4 months Active Problems Problems Chest pain (786.50) (R07.9) Diverticulosis (562.10) (K57.90) Essential hypertension, benign (401.1) (I10) Surgical History Problems History of Breast reduction History of Colonoscopy History of Knee surgery History of Tumor excision off collar bone Current Meds Medication NameInstruction Aspirin EC 81 MG Oral Tablet Delayed ReleaseTAKE 1 TABLET DAILY. Carvedilol 12.5 MG Oral TabletTAKE 1 TABLET TWICE DAILY. Lisinopril 40 MG Oral TabletTAKE 1 TABLET DAILY DIRECTED. Pantoprazole Sodium 20 MG Oral Tablet Delayed ReleaseTAKE 1 TABLET DAILY. Allergies Medication Morphine Derivatives Allergy; Hives;; Recorded By: Al Lopez; 10/22/2021 8:35:06 AM Ceftin Allergy; Rash; Recorded By: Al Lopez; 10/22/2021 8:35:06 AM Penicillins Allergy; Rash; Recorded By: Al Lopez; 10/22/2021 8:35:06 AM Family History Brother Family history of myocardial infarction (V17.3) (Z8 (more content not included)... Normal [employer] Tobacco Screening.on 022 Adult depression screening assessment No [facility] [address] [place] Work Phone: Tobacco use status [facility] b) No [facility] [facility] [address] [place] Work Phone: Vital Signs Date Time Vital Sign Value Performing Clinician Facility 11-20-2024 16:21-0400 Body height 170.2 cm Joseph Cobian DPM Work Phone: [facility] 11-20-2024 16:21-0400 Body mass index (BMI) [Ratio] 33.67 kg/m2 Joseph oCbian DPM Work Phone: [facility] 11-20-2024 16:21-0400 Body weight 97.52 kg Joseph Cobian DPM Work Phone: [facility] 11-20-2024 16:21-0400 Respiratory rate 18 /min Joseph Cobian DPM Work Phone: [facility] 09-11-2024 [id number] Body height 170.18 cm [facility] 09-11-2024 08:11-0400 Body mass index (BMI) [Ratio] 33.7 kg/m2 [facility] 09-11-2024 [id number] Body weight 97.9 kg [facility] 09-11-2024 08:11-0400 Diastolic blood pressure 75 mm[Hg] [facility] 09-11-2024 08:11-0400 Heart rate 65 /min [facility] 09-11-2024 08:11-0400 Respiratory rate 18 /min [facility] 09-11-2024 08:11-0400 SaO2% (BldA) [Mass fraction] 97 % [facility] 09-11-2024 08:11-0400 Systolic blood pressure 117 mm[Hg] [facility] 06-12-2024 08:16-0500 Body height 170.18 cm [facility] 06-12-2024 08:16-0500 Body mass index (BMI) [Ratio] 32.5 kg/m2 [facility] 06-12-2024 08:16-0500 Body weight 94.46 kg [facility] 06-12-2024 08:16-0500 Diastolic blood pressure 64 mm[Hg] [facility] 06-12-2024 08:16-0500 Heart rate 76 /min [facility] 06-12-2024 08:16-0500 Respiratory rate 16 /min [facility] 06-12-2024 08:16-0500 SaO2% (BldA) [Mass fraction] 96 % [facility] 06-12-2024 08:16-0500 Systolic blood pressure 106 mm[Hg] [facility] 03-22-2024 08:52-0500 Body height 170.2 cm Anneliese Garcia MD Work Phone: [facility] 03-22-2024 08:52-0500 Body mass index (BMI) [Ratio] 32.26 kg/m2 Anneliese Garcia MD Work Phone: [facility] 03-22-2024 08:52-0500 Body weight 93.44 kg Anneliese Garcia MD Work Phone: [facility] 03-22-2024 08:52-0500 Diastolic blood pressure 84 mm[Hg] Anneliese Garcia MD Work Phone: [facility] 03-22-2024 08:52-0500 Heart rate 68 /min Anneliese Garcia MD Work Phone: [facility] 03-22-2024 08:52-0500 Systolic blood pressure 120 mm[Hg] Anneliese Garcia MD Work Phone: [facility] 02-14-2024 08:01-0400 Body height 170.18 cm [facility] 02-14-2024 08:01-0400 Body mass index (BMI) [Ratio] 32 kg/m2 [facility] 02-14-2024 08:01-0400 Body weight 92.73 kg [facility] 02-14-2024 08:01-0400 Diastolic blood pressure 70 mm[Hg] [facility] 02-14-2024 08:01-0400 Heart rate 78 /min [facility] 02-14-2024 08:01-0400 Respiratory rate 18 /min [facility] 02-14-2024 08:01-0400 SaO2% (BldA) [Mass fraction] 98 % [facility] 02-14-2024 08:01-0400 Systolic blood pressure 129 mm[Hg] [facility] 12-20-2023 12:22-0400 Body height 170.18 cm MD Cecilio Dumont Work Phone: [facility] 12-20-2023 12:22-0400 Body mass index (BMI) [Ratio] 32.3 kg/m2 MD Cecilio Dumont Work Phone: [facility] 12-20-2023 12:22-0400 Body weight 93.55 kg MD Cecilio Dumont Work Phone: [facility] 12-20-2023 12:22-0400 Diastolic blood pressure 79 mm[Hg] MD Cecilio Dumont Work Phone: [facility] 12-20-2023 12:22-0400 Heart rate 69 /min MD Cecilio Dumont Work Phone: [facility] 12-20-2023 12:22-0400 Respiratory rate 16 /min MD Cecilio Dumont Work Phone: [facility] 12-20-2023 12:22-0400 SaO2% (BldA) [Mass fraction] 95 % MD Cecilio Dumont Work Phone: [facility] 12-20-2023 12:22-0400 Systolic blood pressure 131 mm[Hg] MD Cecilio Dumont Work Phone: [facility] 10-27-2023 10:38-0400 Body height 170.18 cm [facility] 10-27-2023 10:38-0400 Body mass index (BMI) [Ratio] 33.5 kg/m2 [facility] 10-27-2023 10:38-0400 Body weight 97.29 kg [facility] 10-27-2023 10:38-0400 Diastolic blood pressure 69 mm[Hg] [facility] 10-27-2023 10:38-0400 Heart rate 76 /min [facility] 10-27-2023 10:38-0400 Respiratory rate 20 /min [facility] 10-27-2023 10:38-0400 SaO2% (BldA) [Mass fraction] 96 % [facility] 10-27-2023 10:38-0400 Systolic blood pressure 108 mm[Hg] [facility] 09-06-2023 07:22-0400 Body height 170.18 cm [facility] 09-06-2023 07:22-0400 Body mass index (BMI) [Ratio] 34.1 kg/m2 [facility] 09-06-2023 07:22-0400 Body weight 98.93 kg [facility] 09-06-2023 07:22-0400 Diastolic blood pressure 74 mm[Hg] [facility] 09-06-2023 07:22-0400 Heart rate 72 /min [facility] 09-06-2023 07:22-0400 Respiratory rate 16 /min [facility] 09-06-2023 07:22-0400 SaO2% (BldA) [Mass fraction] 98 % [facility] 09-06-2023 07:22-0400 Systolic blood pressure 130 mm[Hg] [facility] 07-12-2023 07:41-0500 Body height 170.18 cm [facility] 07-12-2023 07:41-0500 Body mass index (BMI) [Ratio] 33 kg/m2 [facility] 07-12-2023 07:41-0500 Body weight 95.82 kg [facility] 07-12-2023 07:41-0500 Diastolic blood pressure 71 mm[Hg] [facility] 07-12-2023 07:41-0500 Heart rate 76 /min [facility] 07-12-2023 07:41-0500 Respiratory rate 16 /min [facility] 07-12-2023 07:41-0500 SaO2% (BldA) [Mass fraction] 97 % [facility] 07-12-2023 07:41-0500 Systolic blood pressure 107 mm[Hg] [facility] 05-31-2023 07:45-0500 Body height 170.18 cm Isabel Missler Other [facility] [employer] Other 05-31-2023 07:45-0500 Body mass index (BMI) [Ratio] 34.81 kg/m2 Isabel Missler Other [facility] [employer] Other 05-31-2023 07:45-0500 Body weight 100.84 kg Isabel Missler Other [facility] [employer] Other 05-31-2023 07:45-0500 Diastolic blood pressure 82 mm[Hg] Isabel Missler Other [facility] Other 05-31-2023 07:45-0500 Respiratory rate 18 /min Isabel Missler Other [facility] Other 05-31-2023 07:45-0500 SaO2% (BldA) [Mass fraction] 97 % Isabel Missler Other [facility] Other 05-31-2023 07:45-0500 Systolic blood pressure 127 mm[Hg] Isabel Missler Other [facility] Other 04-21-2023 07:15-0500 Body height 170.18 cm Isabel Missler Other [facility] Other 04-21-2023 07:15-0500 Body mass index (BMI) [Ratio] 35.24 kg/m2 Isabel Missler Other [facility] Other 04-21-2023 07:15-0500 Body weight 102.06 kg Isabel Missler Other [facility] Other 04-21-2023 07:15-0500 Diastolic blood pressure 70 mm[Hg] Isabel Missler Other [facility] Other 04-21-2023 07:15-0500 Respiratory rate 18 /min Isabel Missler Other [facility] Other 04-21-2023 07:15-0500 SaO2% (BldA) [Mass fraction] 95 % Isabel Missler Other [facility] Other 04-21-2023 07:15-0500 Systolic blood pressure 110 mm[Hg] Isabel Missler Other [facility] Other 03-24-2023 08:37-0500 Body height 170.2 cm Anneliese Garcia MD Work Phone: [facility] 03-24-2023 08:37-0500 Body mass index (BMI) [Ratio] 34.93 kg/m2 Anneliese Garcia MD Work Phone: [facility] 03-24-2023 08:37-0500 Body weight 101.15 kg Anneliese Garcia MD Work Phone: [facility] 03-24-2023 08:37-0500 Diastolic blood pressure 84 mm[Hg] Anneliese Garcia MD Work Phone: [facility] 03-24-2023 08:37-0500 Heart rate 64 /min Anneliese Garcia MD Work Phone: [facility] 03-24-2023 08:37-0500 Systolic blood pressure 138 mm[Hg] Anneliese Garcia MD Work Phone: [facility] 03-16-2023 08:00-0400 Body height 170.18 cm Julia Fitt Other [facility] Other 03-16-2023 08:00-0400 Body mass index (BMI) [Ratio] 34.83 kg/m2 Julia Fitt Other [facility] Other 03-16-2023 08:00-0400 Body weight 100.88 kg Julia Fitt Other [facility] Other 03-10-2023 07:45-0400 Body height 170.18 cm Isabel Missler Other [facility] Other 03-10-2023 07:45-0400 Body mass index (BMI) [Ratio] 35.13 kg/m2 Isabel Missler Other [facility] Other 03-10-2023 07:45-0400 Body weight 101.74 kg Isabel Missler Other [facility] Other 03-10-2023 07:45-0400 Diastolic blood pressure 72 mm[Hg] Isabel Missler Other [facility] Other 03-10-2023 07:45-0400 Respiratory rate 18 /min Isabel Missler Other [facility] Other 03-10-2023 07:45-0400 SaO2% (BldA) [Mass fraction] 97 % Isabel Missler Other [facility] Other 03-10-2023 07:45-0400 Systolic blood pressure 112 mm[Hg] Isabel Missler Other [facility] Other 01-27-2023 08:15-0400 Body height 170.18 cm Isabel Missler Other [facility] Other 01-27-2023 08:15-0400 Body mass index (BMI) [Ratio] 34.8 kg/m2 Isabel Missler Other [facility] Other 01-27-2023 08:15-0400 Body weight 100.79 kg Isabel Missler Other [facility] Other 01-27-2023 08:15-0400 Diastolic blood pressure 81 mm[Hg] Isabel Missler Other [facility] Other 01-27-2023 08:15-0400 Respiratory rate 18 /min Isabel Missler Other [facility] Other 01-27-2023 08:15-0400 SaO2% (BldA) [Mass fraction] 99 % Isabel Missler Other [facility] Other 01-27-2023 08:15-0400 Systolic blood pressure 119 mm[Hg] Isabel Kent Other [facility] [employer] Other 01-04-2023 16:55-0400 Body temperature 98.3 [degF] MD Cecilio Dumont Work Phone: [facility] 01-04-2023 16:55-0400 Diastolic blood pressure 82 mm[Hg] MD Cecilio Dumont Work Phone: [facility] 01-04-2023 16:55-0400 Heart rate 61 /min MD Cecilio Dumont Work Phone: [facility] 01-04-2023 16:55-0400 Respiratory rate 18 /min MD Cecilio Dumont Work Phone: [facility] 01-04-2023 16:55-0400 SaO2% (BldA) [Mass fraction] 97 % MD Cecilio Dumont Work Phone: [facility] 01-04-2023 16:55-0400 Systolic blood pressure 124 mm[Hg] MD Cecilio Dumont Work Phone: [facility] 01-04-2023 05:53-0400 Body weight 100.3 kg MD Cecilio Dumont Work Phone: [facility] 01-03-2023 17:09-0400 Body height 170.18 cm MD Cecilio Dumont Work Phone: [facility] 01-03-2023 16:05-0400 Body temperature 97.8 [degF] MD Cecilio Dumont Work Phone: [facility] 01-03-2023 16:05-0400 Diastolic blood pressure 64 mm[Hg] MD Cecilio Dumont Work Phone: [facility] 01-03-2023 16:05-0400 Heart rate 76 /min MD Cecilio Dumont Work Phone: [facility] 01-03-2023 16:05-0400 Respiratory rate 20 /min MD Cecilio Dumont Work Phone: [facility] 01-03-2023 16:05-0400 SaO2% (BldA) [Mass fraction] 98 % MD Cecilio Dumont Work Phone: [facility] 01-03-2023 16:05-0400 Systolic blood pressure 125 mm[Hg] MD Cecilio Dumont Work Phone: [facility] 01-03-2023 10:17-0400 Body height 170.18 cm MD Cecilio Dumont Work Phone: [facility] 01-03-2023 10:17-0400 Body weight 100.9 kg MD Cecilio Dumont Work Phone: [facility] 12-16-2022 09:15-0400 Body height 170.18 cm Isabel Missler Other [facility] Other 12-16-2022 09:15-0400 Body mass index (BMI) [Ratio] 36.38 kg/m2 Isabel Missler Other [facility] Other 12-16-2022 09:15-0400 Body weight 105.37 kg Isabel Missler Other [facility] Other 12-16-2022 09:15-0400 Diastolic blood pressure 81 mm[Hg] Isabel Missler Other [facility] Other 12-16-2022 09:15-0400 Respiratory rate 18 /min Isabel Missler Other [facility] Other 12-16-2022 09:15-0400 SaO2% (BldA) [Mass fraction] 98 % Isabel Missler Other [facility] Other 12-16-2022 09:15-0400 Systolic blood pressure 145 mm[Hg] Isabel Kent Other [facility] Other 10-22-2021 08:38-0400 Body height 170.18 cm Cecilio Tonya Hoy Work Phone: [facility] [address] [place] Work Phone: 10-22-2021 08:38-0400 Body mass index (BMI) [Ratio] 36.81 kg/m2 Cecilio M Hoy Work Phone: [facility] [address] [place] Work Phone: 10-22-2021 08:38-0400 Body surface area Derived from formula 2.17 m2 Cecilio Tonya Hoy Work Phone: [facility] [address] [place] Work Phone: 10-22-2021 08:38-0400 Body weight 106.6 kg Cecilio Tonya Hoy Work Phone: [facility] [address] [place] Work Phone: 10-22-2021 08:38-0400 Diastolic blood pressure 92 mm[Hg] Cecilio M Hoy Work Phone: [facility] [address] [place] Work Phone: 10-22-2021 08:38-0400 Diastolic blood pressure 98 mm[Hg] Cecilio M Hoy Work Phone: [facility] [address] [place] Work Phone: 10-22-2021 08:38-0400 Heart rate 63 /min Cecilio M Hoy Work Phone: [facility] [address] [place] Work Phone: 10-22-2021 08:38-0400 Systolic blood pressure 156 mm[Hg] Cecilio M Hoy Work Phone: [facility] [address] [place] Work Phone: 10-22-2021 08:38-0400 Systolic blood pressure 160 mm[Hg] Cecilio Dumont Work Phone: [facility] [address] [place] Work Phone: 10-06-2021 00:00-0400 60 1 Cecilio Dumont Work Phone: [facility] [address] [place] Work Phone: Comment on above: [id number] Encounters Encounter Date Encounter Type Care Provider Facility Start: 12-24-2024 End: 12-24-2024 ambulatory Cecilio Dumont MD Work Phone: [facility] Work Phone: Start: 12-24-2024 End: 12-24-2024 Patient encounter procedure Cecilio Castaneda MD -Lab [facility] Work Phone: Start: 12-20-2024 End: 12-20-2024 Patient encounter procedure Cecilio Castaneda MD -[facility] Work Phone: Start: 12-20-2024 End: 12-20-2024 Departed Referred Renny Finch [facility] Start: 12-20-2024 End: 12-20-2024 ambulatory Cecilio Dumont MD Work Phone: [facility] Work Phone: Start: 12-03-2024 End: 12-03-2024 Patient encounter procedure Cecilio Castaneda MD -Lab [facility] Work Phone: Start: 12-03-2024 End: 12-03-2024 ambulatory Cecilio Dumont MD Work Phone: [facility] Work Phone: Start: 12-03-2024 End: 12-03-2024 ambulatory Anthony IVERSON Facility:[facility] Start: 12-03-2024 End: 12-03-2024 Patient encounter procedure Anthony IVERSON [facility] [place] Start: 11-28-2024 ambulatory Anthony IVERSON Facility:[facility] Start: 11-25-2024 ambulatory Anthony IVERSON Facility:[facility] Start: 11-23-2024 End: 11-23-2024 Patient encounter procedure Cecilio Castaneda MD -Ultrasound [facility] [place] Work Phone: Start: 11-23-2024 End: 11-23-2024 ambulatory Cecilio Dumont MD Work Phone: [facility] Work Phone: Start: 11-21-2024 End: 11-21-2024 Patient encounter procedure Cecilio Castaneda MD -Lab [facility] Start: 11-21-2024 End: 11-21-2024 ambulatory Cecilio Dumont MD Work Phone: [facility] Work Phone: Start: 11-20-2024 End: 11-20-2024 Office outpatient visit 15 minutes Joseph Cboian DPM Work Phone: [facility] Comment on above: Capsulitis of metata rsophalangeal (MTP) joint of left foot (Primary Dx); Bone spur of left foot; DJD (degenerative joint disease), ankle and foot, left Start: 11-20-2024 End: 11-20-2024 ambulatory JOSEPH COBIAN Not Available Start: 11-20-2024 End: 11-20-2024 Bamboo flowsheet Joseph Cobian DPM Work Phone: [facility] Start: 11-20-2024 End: 11-20-2024 Bamboo flowsheet Joseph Cobian DPM Work Phone: [facility] Start: 11-06-2024 End: 11-06-2024 Office outpatient new 30 minutes Joseph Cobian DPM Work Phone: [facility] Comment on above: DJD (degenerative antoni int disease), ankle and foot, left (Primary Dx); Bone spur of left foot; Capsulitis of metatarsophalangeal (MTP) joint of left foot Start: 11-06-2024 End: 11-06-2024 ambulatory JOSEPH COBIAN Not Available Start: 11-06-2024 End: 11-06-2024 Bamboo flowsheet Joseph Cobian DPM Work Phone: [facility] Start: 11-06-2024 End: 11-06-2024 Bamboo flowsheet Joseph Cobian DPM Work Phone: [facility] Start: 10-16-2024 End: 10-16-2024 Patient encounter procedure Cecilio Dumont MD Work Phone: [facility]-CT Scan [facility] [place] Work Phone: Start: 10-16-2024 End: 10-16-2024 ambulatory Cecilio Dumont MD Work Phone: [facility] Work Phone: Start: 09-27-2024 End: 09-27-2024 Patient encounter procedure Cecilio Dumont MD Work Phone: [facility]-XRay [facility] [place] Work Phone: Start: 09-27-2024 End: 09-27-2024 ambulatory Cecilio Dumont Facility:[facility] Start: 09-11-2024 End: 09-11-2024 ambulatory [facility] Work Phone: Start: 09-11-2024 End: 09-11-2024 Patient encounter procedure [facility]3] Work Phone: Start: 06-12-2024 End: 06-12-2024 ambulatory [facility] Work Phone: Start: 06-12-2024 End: 06-12-2024 Patient encounter procedure [facility]3] Work Phone: Start: 03-22-2024 End: 03-22-2024 Office outpatient visit 15 minutes Mourhaf Traboulssi MD Work Phone: [facility] Comment on above: Precordial pain (Elayne celestine Dx); Essential hypertension, benign; Diverticulosis; BMI 32.0-32.9,adult; Never smoked tobacco Start: 03-22-2024 End: 03-22-[address] [facility] Start: 02-14-2024 End: 02-14-2024 ambulatory [facility] Work Phone: Start: 02-14-2024 End: 02-14-2024 Patient encounter procedure [facility]3] Work Phone: Start: 01-19-2024 End: 01-20-2024 Non-patient / Non-visit [facility] Work Phone: Start: 12-20-2023 End: 12-20-2023 ambulatory MD Cecilio Dumont Work Phone: [facility] Work Phone: Start: 12-20-2023 End: 12-20-2023 Patient encounter procedure MD Cecilio Dumont Work Phone: [facility]3] Work Phone: Start: 11-13-2023 End: 11-13-2023 ambulatory MD Cecilio Dumont Work Phone: [facility] Work Phone: Start: 11-13-2023 End: 11-13-2023 Departed Referred MD Cecilio Dumont Work Phone: [facility] Start: 10-27-2023 End: 10-27-2023 ambulatory [facility] Work Phone: Start: 10-27-2023 End: 10-27-2023 Patient encounter procedure [facility]3] Work Phone: Start: 09-06-2023 End: 09-06-2023 ambulatory [facility] Work Phone: Start: 09-06-2023 End: 09-06-2023 Patient encounter procedure [facility]3] Work Phone: Start: 07-12-2023 End: 07-12-2023 Patient encounter procedure [facility]3] Work Phone: Start: 05-31-2023 (wmnempf/u) [employer] Employee F/U [facility] Start: 05-31-2023 End: 05-31-2023 ambulatory [facility] Other [facility] Other Start: 04-21-2023 (wmnempf/u) [employer] Employee F/U [facility] Start: 04-21-2023 End: 04-21-2023 [facility] Other Start: 03-24-2023 End: 03-24-2023 Office outpatient visit 15 minutes Anneliese Garcia MD Work Phone: [facility] Comment on above: Precordial pain (Elayne celestine Dx); Essential hypertension, benign; BMI 34.0-34.9,adult; Encounter to discuss test results Start: 03-16-2023 ([facility]3] [facility]) KIMBERLEY Incherie ial Provider Julia Ayon [facility] Start: 03-16-2023 End: 03-16-2023 ambulatory Julia Ayon Other [facility] Other Start: 03-14-2023 End: 03-15-2023 ambulatory ANNELIESE GARCIA [facility] Start: 03-10-2023 (wmnempf/u) [employer] Employee F/U [facility] Start: 03-10-2023 End: 03-10-2023 ambulatory [facility] Other Romeo Bluespec Other Start: 02-14-2023 End: 02-15-2023 ambulatory [facility] Start: 01-27-2023 (wmnempf/u) [employer] Employee F/U Isabel [facility] Start: 01-27-2023 End: 01-27-2023 ambulatory Isabel Missler Other [facility] Other Start: 01-24-2023 Telephone encounter Cecilio Dumont Work Phone: [facility] [address] [place] Work Phone: Start: 01-09-2023 End: 01-09-2023 ambulatory Isabelher Calller Other [facility] [employer] Other Start: 01-09-2023 Telephone encounter [facility] Start: 01-04-[address] Cecilio Dumont Facility:[id number] Start: 01-03-2023 End: 01-04-2023 Evaluation and management of inpatient MD Cecilio Dumont Work Phone: [facility] [place] [facility] Work Phone: Start: 01-03-2023 End: 01-04-2023 observation encounter MD Cecilio Dumont Work Phone: [facility] Work Phone: Start: 12-16-2022 (WMNEMPNEW) [employer] Employee [facility] Start: 12-16-2022 End: 12-16-2022 ambulatory Isabelher Calller Other [facility] [employer] Other Start: 12-16-2022 Registered Recurring MD Ladan Dumont Work Phone: [facility]-Weight Management Work Phone: Start: 11-08-2022 End: 11-08-2022 ambulatory MD Cecilio Dumont Work Phone: [facility] Work Phone: Start: 11-08-2022 End: 11-08-2022 Departed Referred MD Cecilio Dumont Work Phone: [facility]-Employee Benefit Screening Start: 08-23-2022 End: 08-23-2022 ambulatory Sharla Strange Other [facility] [employer] Other Start: 08-23-2022 Office outpatient vi sit 15 minutes Sharla Strange [facility] Start: 08-16-2022 End: 08-16-2022 ambulatory MD Cecilio Dumont Work Phone: [facility] Work Phone: Start: 08-16-2022 End: 08-16-2022 Patient encounter procedure MD Cecilio Dumont Work Phone: [facility]-Lab [facility] [place] Work Phone: Start: 08-15-2022 End: 08-16-[address] CECILIO DUMONT . Facility:[facility] Start: 08-08-2022 Office outpatient ne w 30 minutes Sharla Strange [facility] Start: 08-08-2022 End: 08-08-2022 ambulatory MD Cecilio Dumont Work Phone: [facility] Work Phone: Start: 08-08-2022 End: 08-08-2022 Patient encounter procedure MD Cecilio Dumont Work Phone: [facility]-XRay [facility] Start: 06-20-2022 Chart Update Cecilio Dumont Work Phone: [facility] [address] DO Work Phone: Start: 04-13-2022 End: 04-13-[address] CECILIO DUMONT . Facility:[facility]1 Start: 12-16-2021 End: 12-16-2021 Departed Referred MD Cecilio Dumont Work Phone: [facility]-Employee Benefit Screening Start: 12-09-2021 End: 12-09-2021 Patient encounter procedure MD Cecilio Dumont Work Phone: [facility]-[place] Swab Start: 10-29-2021 Chart Update Cecilio Dumont Work Phone: -[facility] [address] [place] Work Phone: Start: 10-27-2021 End: 10-27-2021 Patient encounter procedure MD Cecilio Dumont Work Phone: [facility]-Electrodiagnosti cs Start: 05-04-2021 ([facility]3] C Vac) [facility]3] Co vid Vaccine Julia Fitt [facility] Start: 05-04-2021 End: 05-04-2021 ambulatory Julia Maguiret Other [facility] [employer] Other Procedures Date Procedure Procedure Detail Performing Clinician Start: 12-20-2024 Urine culture Cecilio Dumont MD Work Phone: Start: 12-03-2024 Urine culture Cecilio Dumont MD Work Phone: Start: 11-23-2024 Ultrasonography of abdomen Cecilio Teixeira Work Phone: Start: 10-16-2024 CT ankle without contrast Cecilio Dumont MD Work Phone: Start: 10-16-2024 CT of left foot Cecilio Dumont MD Work Phone: Start: 09-27-2024 X-ray of left foot Cecilio Dumont MD Work Phone: Start: 03-14-2023 CT ANGIO CORONARY ART WITH HEARTFLOW IF SCORE >30% ANNELIESE GARCIA Start: 02-14-2023 CT CARDIAC SCORING WO IV CONTRAST MARCELLA GARCIA Start: 01-03-2023 Computed tomography angiography of abdominal and/or pelvic blood vessel MD Cecilio Dumont Work Phone: Start: 01-03-2023 CT of chest MD Cecilio Dumont Work Phone: Start: 08-08-2022 Plain X-ray of right wrist MD Cecilio eaton Work Phone: Start: 08-08-2022 X-ray of right knee MD Cecilio Dumont Work Phone: Start: 10-27-2021 Radionuclide myocardial perfusion stress study MD Cecilio Dumont Work Phone: Start: 12-01-2020 Mammography Anneliese Garcia MD Work Phone: Start: 05-15-2020 Colonoscopy Anthony ZAYRA Start: 05-15-2020 Esophagogastroduodenoscopy Anthony IVERSON Start: 05-20-2013 left knee arthroscopy Anthony IVERSON Arthroscopy of knee Anthony IVERSON Comment on above: right x 2 Colonoscopy Cecilioporfirio Dumont Work Phone: 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; Operative procedure on knee Cecilio Dumont Work Phone: Reduction mammoplasty Ladan s Tonya Dumont Work Phone: Reduction mammoplasty Michae gerry IVERSON SARS Antigen (LFIA) MD Cindy wang Derekangelito Work Phone: 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 Anthony MASTERSGerry Plan of Treatment Date Care Activity Detail Author Start: 2037 RSV High Risk: (Elde rly (60+) or Population) (1 - 1-dose 75+ series) RSV High Risk: (Elderly (60+) or Population) (1 - 1-dose 75+ series) [facility] Start: 01-13-2025 Influenza vaccination Influenz a Vaccine (#1) [facility] Start: 12-24-2024 Urine culture [facility] Start: 12-24-2024 Bacteria identified in Urine by Culture Urine Culture [facility] Start: 12-20-2024 Bacteria identified in Urine by Culture Urine Culture [facility] Start: 12-20-2024 Urine culture [facility] Start: 12-03-2024 Bacteria identified in Urine by Culture Urine Culture [facility] Start: 12-03-2024 Urine culture [facility] Start: 11-20-2024 End: 11-20-2024 Patient encounter procedure [facility] Comment on above: Capsulitis of metata rsophalangeal (MTP) joint of left foot (Primary Dx); Bone spur of left foot; DJD (degenerative joint disease), ankle and foot, left Start: 11-06-2024 End: 11-06-2024 Patient encounter procedure 11/06/2024 3:50 PM EDT Office Visit [facility] [address] [place] [address] Joseph Cobian DPM [address] [address] Arrived [facility] Comment on above: Arrived Start: 01-14-2024 COVID-19 Vaccine ( season) COVID-19 Vaccine ( season) [facility] Start: 03-06-2023 FUV, Provider: Anneliese Garcia, Status: Pen, Time: 1:20 PM FUV, Provider: Anneliese Garcia, Status: Pen, Time: 1:20 PM [place] [address] DO Work Phone: Start: 01-04-2023 [facility] Start: 01-03-2023 Referral to energy advisor [facility] Start: 01-03-2023 Hospital admission [facility] Start: 11-08-2022 [facility] Start: 08-16-2022 [facility] Start: 01-28-2022 FUV, Provider: Anneliese Garcia, Status: Pen, Time: 9:20 AM FUV, Provider: Anneliese Garcia, Status: Pen, Time: 9:20 AM [facility] [address] [place] Work Phone: Start: 12-16-2021 End: 12-16-2021 Departed Referred Departed Referred [facility]-Employee Benefit Screening Start: 12-01-2021 Screening for malign ant neoplasm of breast Mammogram [facility] Start: 11-29-2021 NURSEVST, Provider: KATHIA BEARDEN MAINSPRING FABRICATION SUPERVISOR 1,[id number], Status: Pen, Time: 1:00 PM NURSEVST, Provider: KATHIA BEARDEN MAINSPRING FABRICATION SUPERVISOR 1,[id number], Status: Pen, Time: 1:00 PM [facility] [address] [place] Work Phone: Start: 06-29-2021 COVID-19 Vaccine (4 - Moderna series) COVID-19 Vaccine (4 - Moderna series) [facility] Start: 2012 Zoster Vaccines (1 of 2) Zoste r Vaccines (1 of 2) [facility] Start: 05-20-2009 MMR Vaccines (1 of 1 - Standard series) MMR Vaccines (1 of 1 - Standard series) [facility] Start: 1992 Screening for malign ant neoplasm of cervix [facility] Start: 1984 DTaP/Tdap/Td Vaccine s (1 - Tdap) DTaP/Tdap/Td Vaccines (1 - Tdap) [facility] Start: 1983 Screening for malign ant neoplasm of cervix [facility] Start: 1980 Hepatitis C screening Hepatiti s C Screening [facility] Start: 1962 HIV screening HIV Screening [facility] Start: 1962 Lipid panel Lipid Panel [facility] Start: 1962 Screening for malign ant neoplasm of colon [facility] Start: 1962 Yearly Adult Physical Yearly A dult Physical [facility] Glucose measurement estimated from glycated hemoglobin [facility] Hemoglobin A1c measurement F [facility] Patient referral [facility] Work Phone: Thyrotropin [Units/v olume] in Serum or Plasma [facility] Thyroxine (T4) free index in Serum or Plasma by calculation [facility] Thyroxine measurement [facility] Triiodothyronine (T3 ) [Mass/volume] in Serum or Plasma [facility] Triiodothyronine res in uptake (T3RU) in Serum or Plasma [facility] Immunizations Immunization Date Immunization Notes Care Provider Fa jenna 02-26-2024 influenza virus vaccine, unspecified formulation Joseph GOMEZM Work Phone: [facility] [place] 02-27-2023 influenza, injectabl e, quadrivalent, preservative free Anneliese Garcia MD Work Phone: [facility] Work Phone: 05-04-2021 COVID-19 Moderna Julia Ayon Other [facility] 06-16-2020 Moderna COVID-19 Vaccine 100 MCG/0.5ML Intramuscular Suspension Cecilio Tonya Dumont Work Phone: [facility] 05-19-2020 Moderna COVID-19 Vaccine 100 MCG/0.5ML Intramuscular Suspension Cecilio M Hoy Work Phone: [facility] 01-14-2020 influenza, injectabl e, quadrivalent, preservative free Cecilio M Hoy Work Phone: [facility] [address] [place] Work Phone: 04-22-2009 novel [id number], preservative-free, injectable Cecilio M Hoy Work Phone: [facility] [address] [place] Work Phone: Payers Date Payer Category Payer Private Health Insurance [id number] 2022 Managed Care (Private) [facility] [id number] 2022 Unknown 1962 Unknown [id number] 1962 Unknown [id number] 1962 Unknown [id number] 1962 Unknown [id number] 1962 Unknown [id number] 1962 Unknown [id number] 1962 Unknown [id number] 1962 Unknown [id number] 1959 Unknown [id number] Self-pay Self Pay [id number] Worker's Compensation [facility] C t Ind [id number] Social History Date Type Detail Facility Start: 03-24-2023 End: 11-06-2024 Consumes alcohol occasionally Consumes alcohol occasionally [facility] Other Start: 03-24-2023 End: 11-06-2024 [facility] Start: 09-30-2021 End: 07-12-2023 Tobacco smoking status NHIS Never smoked tobacco (finding) [facility] Start: 1960 Sex Assigned At Female [facility] Start: 03-24-2023 End: 11-06-2024 Tobacco use and exposure Smokeless tobacco non-user [facility] Work Phone: Start: 03-24-2023 End: 03-22-2024 Alcohol intake Lifetime non-drinker (finding) [facility] Work Phone: Start: 1960 Sex Assigned At Not on file [facility] Work Phone: Start: 03-14-2023 End: 03-24-2023 Exposure to SARS-CoV-2 (event) Not sure [facility] Start: 08-26-2009 End: 06-12-2024 Sex Female (finding) [facility] Tobacco smoking stat us NHIS Tobacco smoking consumption unknown [facility] Start: 11-06-2024 End: 11-20-2024 Alcoholic beverage intake Current drinker of alcohol (finding) [facility] Tobacco smoking status Never [facility] General [place] Sexual Orientation [place] [facility] [place] Medical Equipment Procedure Code Equipment Code Equipment Origin al Text Equipment Identifier Dates [id number] Start: 02-24-2020 End: 03-22-2024 Pen Needle, Diab etic (Ulticare Pen Needle) 31 gauge x 3/16 needle Start: 07-07-2023 Pen Needle, Diab etic (Ulticare Pen Needle) 31 gauge x 3/16 needle Start: 07-07-2023 Pen Needle, Diab etic (Ulticare Pen Needle) 31 gauge x 3/16 needle Start: 07-07-2023 Pen Needle, Diab etic (Ulticare Pen Needle) 31 gauge x 3/16 needle Start: 07-07-2023 Pen Needle, Diab etic (Ulticare Pen Needle) 31 gauge x 3/16 needle Start: 07-07-2023 End: 12-20-2023 Pen Needle, Diab etic (Ulticare Pen Needle) 31 gauge x 3/16 needle Start: 07-07-2023 End: 12-20-2023 Pen Needle, Diab etic (Ulticare Pen Needle) 31 gauge x 3/16 needle Start: 07-07-2023 End: 12-20-2023 Pen Needle, Diab etic (Ulticare Pen Needle) 31 gauge x 3/16 needle Start: 07-07-2023 End: 12-20-2023 Pen Needle, Diab etic (Ulticare Pen Needle) 31 gauge x 3/16 needle Start: 07-07-2023 End: 12-20-2023 Pen Needle, Diab etic (Ulticare Pen Needle) 31 gauge x 3/16 needle Start: 07-07-2023 End: 12-20-2023 Pen Needle, Diab etic (Ulticare Pen Needle) 31 gauge x 3/16 needle Start: 07-07-2023 End: 12-20-2023 Pen Needle, Diab etic (Ulticare Pen Needle) 31 gauge x 3/16 needle Start: 07-07-2023 End: 12-20-2023 Pen Needle, Diab etic (Ulticare Pen Needle) 31 gauge x 3/16 needle Start: 07-07-2023 End: 12-20-2023 Pen Needle, Diab etic (Ulticare Pen Needle) 31 gauge x 3/16 needle Start: 07-07-2023 End: 12-20-2023 Pen Needle, Diab etic (Ulticare Pen Needle) 31 gauge x 3/16 needle Start: 07-07-2023 End: 12-20-2023 Goals Date Patient Goal Desired Activity /State Functional Status Date Assessment Result Facility 01-04-2023 Functional status Patient at Baseline [facility] Work Phone: 01-03-2023 Functional status Patient at Baseline [facility] Work Phone: Mental Status Date Assessment Result Facility 01-04-2023 Cognitive function Cognitive Sta tus Patient at Baseline [facility] Work Phone: 01-03-2023 Cognitive function Cognitive Sta tus Patient at Baseline [facility] Work Phone: Clinical Notes 05-04-2021 to 12-03-2024 Joseph Cobian, CHRISTO - 11/20/2024 4:10 PM EDTJoseph Cobian, CHRISTO - 11/06/2024 3:50 PM EDT Note Date & Type Note Facility 12-03-2024 Note General Surgery Offi ce/Clinic Note Chief Complaint consultation for cholelithiasis HPI Staff 64 year old female presents on consultation from Dr. Dumont for cholelithiasis. Patient reports 3 month history of intermittent LUQ abdominal pain, nausea, heartburn and bloating. Reports pain is present more often than not and radiates to back and shoulder. Symptoms are worsened post prandial without any known food triggers. Discontinued use of Ozempic in September which has not changed symptoms. Has been on Protonix for many years. Abdominal US completed 12/06 with cholelithiasis and hepatic steatosis. History of Present Illness 64 yo female with h/o htn, CVA, TIA, metabolic X syndrome, migraines, GERD, anxiety/depression, diverticular disease, hepatic steatosis, nephrolithiasis, referred for abd pain, cholelithiasis; patient reports 1 month h/o left upper quadrant and left flank/back pain; initially intermittent, now constant; improved with lying on left side; worse after eating anything, also loose stools shortly after eating, no blood or mucous; occasional nausea, no emesis; recent RUQ US with hepatic steatosis and small gallstones, no wall thickening or ductal dilation, no distension of gallbladder; did have diffuse abd pain/bloating for months, but discontinued Ozempic in September with some improvement; still with diffuse abd bloating all the time; intermittent GERD despite PPI, no early satiety, no dysphagia; patient reports EGD/colonoscopy done at [facility] [place] ago, reportedly with just diverticulosis; no abd operations; on baby asa daily and ibuprofen prn; no tobacco use; no fmhx of GI malignancy or IBD. Review of Systems PHQ Score Initial Depression Screen Score: 0 SCORE ROS - Provider Constitutional: no fever, no sweats, no weight loss. Eyes: no glasses, no blurred vision, no visual loss. ENMT: no dentures, no hoarseness, no swallowing difficulties, no hearing loss, no ear infection(s), no nose bleeds. Cardiovascular: normal blood pressure, no chest pain, regular heartbeat, no heart murmur. Respiratory: no shortness of breath, no cough, no asthma, no wheezing. Gastrointestinal: no nausea, no vomiting, no diarrhea, no constipation, no blood in stool, no change in bowel habits, no abdominal pain, no hepatitis. Genitourinary: no kidney stones, no urine infection, no dysuria. Musculoskeletal: no pain, no weakness. Skin: no changing moles, no rash, no skin lumps. Neurologic: no seizures, no epilepsy, no headache. Psychiatric: no emotional or psychiatric problem. Heme/Lymph: no bleeding problems, no anemia, no blood clots, no transfusions. Allergy/Immunologic: no swollen lymph nodes/glands, no IV drug abuse. Other: Additional ROS info: Except as noted in the above Review of Systems and in the History of Present Illness, all other systems have been reviewed and are negative or noncontributory. Physical Exam Vitals & Measurements HR: 71(Peripheral) RR: 16 BP: 129/63 HT: 68 in HT: 172.72 cm WT: 100.0 kg WT: 220.462 lb BMI: 33.52 HEENT: normal conjunctiva, sclera clear, no scleral icterus, EOM intact, PERRLA, oral mucosa moist without lesions. Neck: trachea midline, no mass, symmetric, no thyromegaly or nodules, no adenopathy Respiratory: lungs CTA, respirations non labored. Cardiovascular: regular rate and rhythm, no murmur, no pedal edema or varicosities. Gastrointestinal: obese, soft, non distended, mild tenderness, left upper quadrant; left CVA tenderness no masses, no palpable hernias, diastasis recti no, no hepatosplenomegaly; normal bs Musculoskeletal: normal gait, digits and nails without infection, nodes, cyanosis, clubbing. Skin: no rashes, no lesions, no ulcers, no subcutaneous nodules, induration. Psychiatric/Neuro: oriented to time, place, person, judgement normal, affect appropriate for age, insight intact, no focal deficits. Tests: , x-rays reviewed, review of old records completed , Assessment/Plan 1. Left upper quadrant abdominal pain (R10.12: Left upper quadrant pain) symptoms not consistent with biliary colic; will obtain abd/pelvic ct scan for further evaluation; will also obtain previous EGD/colonoscopy reports; may require repeat endoscopy if CT scan negative; recommend low fat diet for now; will call patient with CT scan results; she is to call sooner if problems/qeustions. Ordered: CT Abdomen/Pelvis w/ Contrast E&M of New Patient Moderate 45-59 Min 26893 2. Left flank pain (R10.9: Unspecified abdominal pain) see # 1 Ordered: CT Abdomen/Pelvis w/ Contrast E&M of New Patient Moderate 45-59 Min 23622 3. Nausea (R11.0: Nausea) see # 1 Ordered: CT Abdomen/Pelvis w/ Contrast E&M of New Patient Moderate 45-59 Min 67362 4. Abdominal bloating (R14.0: Abdominal distension (gaseous)) see # 1 Ordered: CT Abdomen/Pelvis w/ Contrast E&M of New Patient Moderate 45-59 Min 24561 5. Frequent loose stools (R19.7: Diarrhea, unspecified) see # 1 Ordered: CT Abdomen/Pelvis w/ Contrast E&M of (more content not included)... [facility] Comment on above: Result Comment: Elec tronically Signed By: ZAYRA PACHECO, Anthony Barrera\Date and Time Signed: 12/03/24 09:16 EDT 11-23-2024 Radiology Diagnostic study note [facility] Main [place] [address] [place] [address] Ultrasound Report Signed Patient: Nancy Hooper MR#: [id number] : 1960 Acct:[id number] Age/Sex: 64 / F ADM Date: 5 Loc: Room: Type: [facility] Attending Dr: Cecilio Dumont MD Ordering Provider: Cecilio Dumont MD Date of Service: 11/23/24 US/US abdomen limited: R10.13,R10.12 Copies to: Cecilio Dumont MD~ EXAMINATION TYPE: US abdomen limited DATE OF EXAM ORDERED: 11/23/2024 9:27 AM HISTORY: Epigastric pain radiating to back, occasional right upper quadrant pain, fatty liver on prior CT COMPARISON: NONE TECHNIQUE: Realtime imaging limited to the right upper quadrant was performed. FINDINGS: Stones are noted in the gallbladder lumen. The gallbladder wall measures 2 mm in thickness. The common bile duct measures 6 mm in diameter.. No intrahepatic or extrahepatic biliary dilatation is seen. The liver is echogenic in respect tothe right renal cortex suggesting hepatic steatosis. Hepatopedal flow is noted in the main portal vein. Partial visualization of the right kidney reveals no gross hydronephrosis. Partial visualization of the pancreas reveals no abnormality. ? US/US abdomen limited IMPRESSION: Findings are consistent with hepatic steatosis. Gallstones are noted in the gallbladder lumen. No sonographic evidence of acute cholecystitis. Impression dictated by: Shai Degroot M.D. 11/23/2024 5:13 PM Dictation Location: [employer] Tech: Ramila Su Transcribed By: ADAM 11/23/241712 Dictated By: Shai Degroot II, MD 11/23/241711 Signed By: 11/23/241712 [facility] Work Phone: 11-20-2024 History of Present illness Narrative Patient: Nancy Hooper : 1960 PCP: Cecilio Dumont MD SUBJECTIVE This is a 64 y.o. female that presents today for a chief complaint of pain to dorsum left foot and area of bony prominence. She states been present for many years and painful with ambulation particularly in shoe gear. She has tried different shoes with some improvement Patient also complaints of pain particularly 1st steps and points to the dorsum of her left foot near the EDL tendon with EDL tendonitis to the 4th and 5th digits rates pain up to 3/10 particularly 1st steps in the morning has taken recent steroid pack with improvement. Recent CT was negative She is currently not covered for orthotics. Allergies: No Known Allergies Past Medical History: Past Medical History: Diagnosis Date Difficulty walking Hypertension Stress fracture Medications: Current Outpatient Medications: methylPREDNISolone (Medrol Dospak) 4 MG tablets, Follow schedule on MEDROL PACK package instructions to be used as directed, Disp: 21 tablet, Rfl: 0 Social History: Social History Socioeconomic History Marital status: Spouse name: Not on file Number of children: Not on file Years of education: Not on file Highest education level: Not on file Occupational History Not on file Tobacco Use Smoking status: Never Smokeless tobacco: Never Substance and Sexual Activity Alcohol use: Yes Drug use: Never Sexual activity: Not Currently Partners: Male control/protection: None Other Topics Concern Not on file Social History Narrative Not on file Social Drivers of Health Financial Resource Strain: Not on file Food Insecurity: Not on file Transportation Needs: Not on file Physical Activity: Not on file Stress: Not on file Social Connections: Not on file Intimate Partner Violence: Not on file Housing Stability: Not on file ROS: Gastrointestinal: denies abdominal pain, ulcers, or changes in appetite or bowel habits Musculoskeletal: Positive generalized arthritis to joints and denies loss of strength. Cardiovascular: denies CP, palpitations, irregular rhythms OBJECTIVE LE EXAM: DERM: Positive hair growth to b/l feet with good skin turgor noted. Negative openings in skin VASC: Palpable pedal pulsed b/l with warm to cool tibia to toes b/l NEURO: Gross sensation intact digits 1-10 and b/l feet ORTHO: +5/5 DF/PF/IN/EV right, +5/5 DF/PF/IN/EV left. 20 degrees inversion and 10 degrees eversion STJ b/l. Ankle ROM less than 10 degrees b/l. Positive pain on palpation to left midfoot bony prominence Positive pain on palpation left EDL tendon near slips of 4th and 5th metatarsal regions CT scan Ordering Provider: Cecilio Dumont MD Date of Service: 10/16/24 CT/CT foot LT wo con: M79.672 ([id number]) CT/CT ankle LT wo con: M79.672 CT ankle LT wo con, CT foot LT wo con 10/16/2024 8:10 AM SIGNS AND SYMPTOMS: Injury to left foot and ankle with bruising and swelling TECHNIQUE: Multidetector CT axial slices of the left foot and left ankle without IV contrast. Multiplanar and 3-D reformats were performed and viewed on a separate workstation and reviewed to further define anatomy and possible pathology. CT was performed with one or more of the following dose reduction techniques: Automated exposure control, adjustment of the mA and/or kV according to patient size, or use of iterative reconstruction technique. COMPARISON: 09/27/2024 FINDINGS: Left ankle: The talus, medial malleolus, and lateral malleolus are preserved. The subtalar joints and tibiotalar joints are preserved. There is no acute displaced fracture. No evidence of joint effusion. The soft tissues are within normal limits. Tiny ossific fragments are noted separate from the medial and lateral malleolus suggesting remote well-corticated avulsion type injuries. Left foot: Degenerative changes are noted at the talonavicular joint and throughout the tarsometatarsal junctions. There is an os perineum which is a normal variant. There is mild narrowing of the first metatarsophalangeal joint. There is no evidence of acute displaced fracture. There is plantar and Achilles surface calcaneal spurring. There is nonspecific diffuse soft tissue swelling. CT/CT ankle LT wo con IMPRESSION: Left ankle: No fracture or dislocation. The soft tissues are within normal limits. Left foot: No fracture. Degenerative changes are noted at the talonavicular junction and at the tarsometatarsal junctions. There is plantar and Achilles surface calcaneal spurring. Nonspecific diffuse soft tissue swelling is present. Impression dictated by: Shai Degroot M.D. 10/16/2024 4:27 PM ASSESSMENT 1. Capsulitis of metatarsophalangeal (MTP) joint of left foot 2. Bone spur of left foot 3. DJD (degenerative joint disease), ankle and foot, left PLAN Patient to continue with oral anti - inflammatories as needed for pain and recommended OTC medications such as tylenol or Ibuprofen Recommended to apply ice to affected areas for 20 minutes, twice daily. Ice should not be applied directly to skin. Discussed possibly left midfoot exostectomy in the future Discussed possible [id number] arch supports and patient may consider and continues ibuprofen and ice p.r.n. and may consider walking boot if not improved in the next few weeks Joseph Cobian DPM documented in this encounter [facility] 11-06-2024 History of Present illness Narrative Patient: Nancy Hooper : 1960 PCP: No primary care provider on file. SUBJECTIVE This is a 64 y.o. female that presents today for a chief complaint of pain to dorsum left foot and area of bony prominence. She states been present for many years and painful with ambulation particularly in shoe gear. She has tried different shoes with some improvement Patient also complaints of pain particularly 1st steps and points to the dorsum of her left foot near the EDL tendon complex to the 4th and 5th digits rates pain up to 5/10 particularly 1st steps in the morning has tried ibuprofen with some improvement Allergies: Not on File Past Medical History: No past medical history on file. Medications: No current outpatient medications on file. Social History: Social History Socioeconomic History Marital status: Spouse name: Not on file Number of children: Not on file Years of education: Not on file Highest education level: Not on file Occupational History Not on file Tobacco Use Smoking status: Not on file Smokeless tobacco: Not on file Substance and Sexual Activity Alcohol use: Not on file Drug use: Not on file Sexual activity: Not on file Other Topics Concern Not on file Social History Narrative Not on file Social Drivers of Health Financial Resource Strain: Not on file Food Insecurity: Not on file Transportation Needs: Not on file Physical Activity: Not on file Stress: Not on file Social Connections: Not on file Intimate Partner Violence: Not on file Housing Stability: Not on file ROS: Gastrointestinal: denies abdominal pain, ulcers, or changes in appetite or bowel habits Musculoskeletal: Positive generalized arthritis to joints and denies loss of strength. Cardiovascular: denies CP, palpitations, irregular rhythms OBJECTIVE LE EXAM: DERM: Positive hair growth to b/l feet with good skin turgor noted. Negative openings in skin VASC: Palpable pedal pulsed b/l with warm to cool tibia to toes b/l NEURO: Gross sensation intact digits 1-10 and b/l feet ORTHO: +5/5 DF/PF/IN/EV right, +5/5 DF/PF/IN/EV left. 20 degrees inversion and 10 degrees eversion STJ b/l. Ankle ROM less than 10 degrees b/l. Positive pain on palpation to left midfoot bony prominence Positive pain on palpation left EDL tendon near slips of 4th and 5th metat[address]al regions CT scan Ordering Provider: Cecilio Dumont MD Date of Service: 10/16/24 CT/CT foot LT wo con: M79.672 ([id number]) CT/CT ankle LT wo con: M79.672 CT ankle LT wo con, CT foot LT wo con 10/16/2024 8:10 AM SIGNS AND SYMPTOMS: Injury to left foot and ankle with bruising and swelling TECHNIQUE: Multidetector CT axial slices of the left foot and left ankle without IV contrast. Multiplanar and 3-D reformats were performed and viewed on a separate workstation and reviewed to further define anatomy and possible pathology. CT was performed with one or more of the following dose reduction techniques: Automated exposure control, adjustment of the mA and/or kV according to patient size, or use of iterative reconstruction technique. COMPARISON: 09/27/2024 FINDINGS: Left ankle: The talus, medial malleolus, and lateral malleolus are preserved. The subtalar joints and tibiotalar joints are preserved. There is no acute displaced fracture. No evidence of joint effusion. The soft tissues are within normal limits. Tiny ossific fragments are noted separate from the medial and lateral malleolus suggesting remote well-corticated avulsion type injuries. Left foot: Degenerative changes are noted at the talonavicular joint and throughout the tarsometatarsal junctions. There is an os perineum which is a normal variant. There is mild narrowing of the first metatarsophalangeal joint. There is no evidence of acute displaced fracture. There is plantar and Achilles surface calcaneal spurring. There is nonspecific diffuse soft tissue swelling. CT/CT ankle LT wo con IMPRESSION: Left ankle: No fracture or dislocation. The soft tissues are within normal limits. Left foot: No fracture. Degenerative changes are noted at the talonavicular junction and at the tarsometatarsal junctions. There is plantar and Achilles surface calcaneal spurring. Nonspecific diffuse soft tissue swelling is present. Impression dictated by: Shai Degroot M.D. 10/16/2024 4:27 PM ASSESSMENT 1. DJD (degenerative joint disease), ankle and foot, left 2. Bone spur of left foot 3. Capsulitis of metatarsophalangeal (MTP) joint of left foot PLAN Prescription today for Medrol Recommended to apply ice to affected areas for 20 minutes, twice daily. Ice should not be applied directly to skin. Results today with patient of CT scan Pre-certify for inserts Discussed conservative and surgical treatment options for patient today including postoperative time frame and surgical procedure in detail. Patient may continue with conservative treatments including [id number] anti-inflammatories and other treatments suggested today. Patient may want to be scheduled for surgical intervention in the near future. Discussed possibly left midfoot exostectomy in the future Joseph Cobian DPM documented in this encounter [facility] 10-16-2024 Radiology Diagnostic study note [facility] Main [place] [address] [place] [address] CT Scan Report Signed Patient: Nancy Hooper MR#: [id number] : 1960 Acct:[id number] Age/Sex: 64 / F ADM Date: 5 Loc: CT Room: Type: [facility] Attending Dr: Cecilio Dumont MD Copies to: Cecilio Dumont MD~ Ordering Provider: Cecilio Dumont MD Date of Service: 10/16/24 CT/CT foot LT wo con: M79.672 ([id number]) CT/CT ankle LT wo con: M79.672 CT ankle LT wo con, CT foot LT wo con 10/16/2024 8:10 AM SIGNS AND SYMPTOMS: Injury to left foot and ankle with bruising and swelling TECHNIQUE: Multidetector CT axial slices of the left foot and left ankle withoutIV contrast. Multiplanar and 3-D reformats were performed and viewed on a separate workstation and reviewed to further define anatomy and possible pathology. CT was performed with one or more of the following dose reduction techniques: Automated exposure control, adjustment of the mA and/or kV accordingto patient size, or use of iterative reconstruction technique. COMPARISON: 09/27/2024 FINDINGS: Left ankle: The talus, medial malleolus, and lateral malleolus are preserved. The subtalar joints and tibiotalar joints are preserved. There is no acute displaced fracture. No evidence of joint effusion. The soft tissues are within normal limits. Tiny ossific fragments are noted separate from the medial and lateral malleolus suggesting remote well-corticated avulsion type injuries. Left foot: Degenerative changes are noted at the talonavicular joint and throughout the tarsometatarsal junctions. There is an os perineum which is a normal variant. There is mild narrowing of the first metatarsophalangeal joint. There is no evidence of acute displaced fracture. There is plantar and Achilles surface calcaneal spurring. There is nonspecific diffuse soft tissue swelling. CT/CT ankle LT wo con IMPRESSION: Left ankle: No fracture or dislocation. The soft tissues are within normal limits. Left foot: No fracture. Degenerative changes are noted at the talonavicular junction and at the tarsometatarsal junctions. There is plantar and Achilles surface calcaneal spurring. Nonspecific diffuse soft tissue swelling is present. Impression dictated by: Shai Degroot M.D. 10/16/2024 4:27 PM Dictation Location: [employer] Transcribed By: ADAM 10/16/24 162 Dictated By: Shai Degroot II, MD 10/16/24 1601 Signed By: 10/16/24 1623 [facility] Work Phone: 09-11-2024 Evaluation note Diagnosis Onset Date Resolution Arthritis acute September 11 8:10am GERD (gastroesophageal reflux disease) acute September 11, 2024 8:10am Obesity, Class I, BMI 30-34.9 acute September 11, 2024 8:10am Prediabetes acute September 11, 025 8:10am Stroke acute September 11 8:10am Encounter for weight management noneactive September 11, 2024 8:10am [facility] Work Phone: [phone]) 818-448111-08-2024 History of Present illness Narrative* Anneliese Garcia MD - 03/22/2024 8:50 AM EST Subjective Nancy Hooper is a 63 y.o. female Chief Complaint Annual Exam HPI Patient is here for follow-up and management for previous evaluation for chest pain. Cardiac workupwas completely negative. She has been doing well. She denies complaint of chest pain, palpitation, lightheadedness, dizziness or syncope. She described functional class I. She has been on Ozempic andlost close to 20 pounds. Assessment 1. Previous evaluation for chest pain. Cardiac work-up was completely benign including stress test and calcium scoring. Patient report improvement of all her symptoms since she stopped Topamax. No recurrence 2. Hypertension controlled 3. Obesity with recent 20 pound weight loss on Ozempic 4. Diverticular disease appears quiescent Plan 1. I educated the patient in regards to anginal symptomatology 2. I reviewed the results of her previous cardiac workup with her 3. I counseled the patient at great length and regarding to nonpharmacologic approach for management of hypertension including salt restriction, exercise, increase her fluid intake and DASH diet 4. I we will see her in the future on as-needed basis. Patient advised to call if she develop any cardiac symptomatology Review of Systems All other systems reviewed and are negative. Vitals: 03/22/24 0852 BP: 120/84 BP Location: Right arm Patient Position: Sitting Pulse: 68 Weight: 93.4 kg (206 lb) Height: 1.702 m (5' 7 ) Objective Physical Exam Constitutional: Appearance: Normal appearance. HENT: Nose: Nose normal. Neck: Vascular: No carotid bruit. Cardiovascular: Rate and Rhythm: Normal rate. Pulses: Normal pulses. Heart sounds: Normal heart sounds. Pulmonary: Effort: Pulmonary effort is normal. Abdominal: General: Bowel sounds are normal. Palpations: Abdomen is soft. Musculoskeletal: General: Normal range of motion. Cervical back: Normal range of motion. Right lower leg: No edema. Left lower leg: No edema. Skin: General: Skin is warm and dry. Neurological: General: No focal deficit present. Mental Status: She is alert. Psychiatric: Mood and Affect: Mood normal. Behavior: Behavior normal. Thought Content: Thought content normal. Judgment: Judgment normal. Allergies Erythromycin, Other, Topamax [topiramate], Cefuroxime axetil, Morphine, and Penicillins Current Medications Current Outpatient Medications: aspirin 81 mg EC tablet, Take 1 tablet (81 mg) by mouth once daily., Disp: , Rfl: carvedilol (Coreg) 12.5 mg tablet, Take 1 tablet (12.5 mg) by mouth 2 times daily (morning and lateafternoon)., Disp: , Rfl: hydroCHLOROthiazide (Microzide) 12.5 mg capsule, Take 1 capsule (12.5 mg) by mouth once daily., Disp: , Rfl: ibuprofen 800 mg tablet, Take 1 tablet (800 mg) by mouth every 8 hours if needed., Disp: , Rfl: lisinopril 40 mg tablet, Take 1 tablet (40 mg) by mouth once daily., Disp: , Rfl: Ozempic 1 mg/dose (4 mg/3 mL) pen injector, every 7 days., Disp: , Rfl: pantoprazole (ProtoNix) 40 mg EC tablet, Take 1 tablet (40 mg) by mouth once daily., Disp: , Rfl: Assessment/Plan 1. Precordial pain Follow Up In Cardiology 2. Essential hypertension, benign Follow Up In Cardiology 3. Diverticulosis 4. BMI 32.0-32.9,adult 5. Never smoked tobacco Scribe Attestation By signing my name below, I, Regina Capone LPN, Scribe attest that this documentation has been prepared under the direction and in the presence of MD Toya. Provider Attestation - Scribe documentation All medical record entries made by the Scribe were at my direction and personally dictated by me. Ihave reviewed the chart and agree that the record accurately reflects my personal performance of the history, physical exam, discussion and plan. documented in this [facility] Work Phone: 1(676) 173-604211-08-2024 Instructions* Patient Instructions* Regina Nieto LPN - 03/22/2024 8:50 AM EST Please bring all medicines, vitamins, and herbal supplements with you when you come to the office. Prescriptions will not be filled unless you are compliant with your follow up appointments or have a follow up appointment scheduled as per instruction of your physician. Refills should be requested at the time of your visit. BMI was above normal measurement. Current weight: 93.4 kg (206 lb) Weight change since last visit (-) denotes wt loss -17 lbs Weight loss needed to achieve BMI 25: 46.7 Lbs Weight loss needed to achieve BMI 30: 14.9 Lbs Provided instructions on dietary changes Provided instructions on exercise. PRN Same medications [facility] Work Phone: [phone]) 445-867901-17-2024 Evaluation note* Encounter Date Diagnosis Assessment Notes Treatment Notes Treatment Clinical Notes May, Obesity (ICD-10 - E66.9) Patient has made additional progress with 2.7 pounds of weight loss since her previous visit, down a total of 10 pounds of 4% body weight since starting with us in December. We did increase her to the 3 mg dose at the end of April which she has responded positively to and noticed a better therapeutic effect especially with not as hungry at night. She has also engaged a little more fully with improving quality of her diet and incorporating small amounts of exercise throughout her work week. Praised her in the small sustainable changes. We discussed how the quality of the food is of utmost importance in how her body uses that fuel to support overall health. Continue Victoza 3 mg, low threshold for transitioning to Ozempic if superior tool as needed Continue weight watchers as a additional tool to help guide better decisions when it comes to food First of the year comprehensive review we did discuss making sure that she is rotating sites between arms legs and abdomen, she was previously only rotating sites in the abdomen. She is reminded of the black box warning for thyroid cancer. Recommended to hold for any scheduled surgery for at least a week. And she is to inform provider of any epigastric pain especially radiating to the right side so we may order additional labs to rule out issues with pancreatitis or gallbladder disease. Continue to work on increasing fiber, fluids and okay with stool softener or MiraLAX couple days a week to keep constipation under control. With goal of bowel movement every other day. Exercise will also assist in this We discussed stress management and deep breathing exercises even if she can do this on the way to work May, Prediabetes (ICD-10 - R73.09) Prediabetes has improved from 5.8 to 5.6% in office today. She is receiving dual benefit from liraglutide for both some weight loss and prediabetes May, Arthritis (ICD-10 - M19.90) May, GERD (gastroesophageal reflux disease) (ICD-10 - K21.9) May, Migraine (ICD-10 - G43.909) May, Kidney stone (ICD-10 - N20.0) May, Stroke (ICD-10 - I63.9) May, Diverticulitis (ICD-10 - K57.92) May, Impaired fasting glucose (ICD-10 - R73.01) May, Encounter for weight management (ICD-10 - Z76.89) [facility] Other 12-08-2023 Evaluation note* Encounter Date Diagnosis Assessment Notes Treatment Notes Treatment Clinical Notes Apr, Obesity (ICD-10 - E66.9) Patient is holding steady/up 0.7 pounds since our previous visit, is still down a total of 7.3 pounds or 3% body weight loss and starting with this first week of December. She continues to tolerate Victoza at 1.8 mg without adverse side effect with exception of some minimal constipation. Not currently using any type of [id number] stool softener or fiber supplement. She continues to feel positive benefit of feeling monet faster and smaller portion sizes but I feel that she is not making good quality dietary choices and does not have any consistent physical activity in her routine. Long discussion had regarding medication as a tool for weight loss and helping her decrease portion sizes and helping her to make better decisions when it comes to food which is why I am open to optimizing medication at this time, she is also open to this after discussion. She still needs to engage with better quality food items incorporating quality protein and a better balanced diet. She mentioned that she enjoys Premier protein shakes as she is willing to try to get in a little more often on the days she does not want to eat breakfast Continue Victoza, increase to the 3 mg dose for our insurance policy We reviewed general goals of 5% weight loss at around 3-month timeframe which we are following short of with a 3% weight loss in 4 months. Patient is also disappointed in weight loss Reinforced all of the other aspects affecting weight including the brain defending the certain body weight, sleep, stress, quality food choices and physical activity which we need to find balance in order to reach goals. Plan for A1c check at follow-up visit due to machine being down today Apr, Prediabetes (ICD-10 - R73.09) Anticipate A1c at follow-up. Most recent A1c revealed an improvement in her prediabetes 5.8-5.6, she is receiving dual benefit from the Victoza Apr, Arthritis (ICD-10 - M19.90) Apr, GERD (gastroesophageal reflux disease) (ICD-10 - K21.9) Apr, Migraine (ICD-10 - G43.909) Apr, Kidney stone (ICD-10 - N20.0) Apr, Stroke (ICD-10 - I63.9) Apr, Diverticulitis (ICD-10 - K57.92) Apr, Impaired fasting glucose (ICD-10 - R73.01) Apr, Encounter for weight management (ICD-10 - Z76.89) [facility] Other 11-10-2023 History of Present illness Narrative* Anneliese Garcia MD - 03/24/2023 8:30 AM EST Subjective Nancy Hooper is a 62 y.o. female Chief Complaint Hospital Follow-up HPI Patient is here for follow-up continue management for previous evaluation for chest pain, hypertension and obesity. Since last time I saw her she feels well. She denies any cardiac complaint of chestpain, palpitation, lightheadedness, dizziness or syncope. She feels that her symptoms were related to using Topamax. She underwent stress test which was negative also calcium scoring showed 0 score consistent with low risk. Assessment 1. Previous evaluation for chest pain. Cardiac work-up was completely benign including stress test and calcium scoring. Patient report improvement of all her symptoms since she stopped Topamax. No recurrence 2. Hypertension controlled 3. Obesity with no significant weight changes 4. Diverticular disease appears quiescent Plan 1. I educated the patient in regards to anginal symptomatology 2. I reviewed the results of her stress test and calcium scoring 3. I counseled the patient at great length and regarding to nonpharmacologic approach for management of hypertension including salt restriction, exercise, increase her fluid intake and DASH diet 4. I we will see her back in the office in 1 year and we will try to retrieve her recent lab work ROS Visit Vitals BP 138/84 (BP Location: Left arm, Patient Position: Sitting) Pulse 64 Ht 1.702 m (5' 7 ) Wt 101 kg (223 lb) BMI 34.93 kg/m Smoking Status Never BSA 2.19 m Objective Physical Exam Constitutional: Appearance: Normal appearance. She is normal weight. HENT: Nose: Nose normal. Neck: Vascular: No carotid bruit. Cardiovascular: Rate and Rhythm: Normal rate. Pulses: Normal pulses. Heart sounds: Normal heart sounds. Pulmonary: Effort: Pulmonary effort is normal. Abdominal: General: Bowel sounds are normal. Palpations: Abdomen is soft. Genitourinary: Rectum: Normal. Musculoskeletal: General: Normal range of motion. Cervical back: Normal range of motion. Right lower leg: No edema. Left lower leg: No edema. Skin: General: Skin is warm and dry. Neurological: General: No focal deficit present. Mental Status: She is alert. Psychiatric: Mood and Affect: Mood normal. Behavior: Behavior normal. Thought Content: Thought content normal. Judgment: Judgment normal. Current Medications Current Outpatient Medications: aspirin 81 mg EC tablet, Take 1 tablet (81 mg) by mouth once daily., Disp: , Rfl: carvedilol (Coreg) 12.5 mg tablet, Take 1 tablet (12.5 mg) by mouth 2 times a day with meals., Disp: , Rfl: hydroCHLOROthiazide (Microzide) 12.5 mg capsule, Take 1 capsule (12.5 mg) by mouth once daily., Disp: , Rfl: ibuprofen 800 mg tablet, Take 1 tablet (800 mg) by mouth every 8 hours if needed., Disp: , Rfl: lisinopril 40 mg tablet, Take 1 tablet (40 mg) by mouth once daily., Disp: , Rfl: pantoprazole (ProtoNix) 40 mg EC tablet, Take 1 tablet (40 mg) by mouth once daily., Disp: , Rfl: UltiCare Pen Needle 31 gauge x 3/16 needle, USE subcutaneously DAILY DIRECTED, Disp: , Rfl: Victoza 3-Hesham 0.6 mg/0.1 mL (18 mg/3 mL) injection, Inject 0.1 mL (0.6 mg) under the skin., Disp: ,Rfl: doxycycline (Monodox) 100 mg capsule, Take 1 capsule (100 mg) by mouth 2 times a day., Disp: , Rfl: pantoprazole (ProtoNix) 20 mg EC tablet, Take 1 tablet (20 mg) by mouth once daily., Disp: , Rfl: phentermine (Adipex-P) 37.5 mg tablet, Take 1 tablet (37.5 mg) by mouth once daily in the morning. Take before meals., Disp: , Rfl: topiramate (Topamax) 50 mg tablet, Take 1 tablet (50 mg) by mouth once daily., Disp: , Rfl: Assessment/Plan 1. Precordial pain Follow Up In Cardiology 2. Essential hypertension, benign Follow Up In Cardiology 3. BMI 34.0-34.9,adult 4. Encounter to discuss test results [facility] Work Phone: [phone]) 623-493811-10-2023 Instructions* Patient Instructions* Ino Torres MA - 03/24/2023 8:30 AM EST Please bring all medicines, vitamins, and herbal supplements with you when you come to the office. Prescriptions will not be filled unless you are compliant with your follow up appointments or have a follow up appointment scheduled as per instruction of your physician. Refills should be requested at the time of your visit. documented in [facility] Work Phone: [phone]) 788-483511-02-2023 Evaluation note* Encounter Date Diagnosis Assessment Notes Treatment Notes Treatment Clinical Notes Mar, Obesity (ICD-10 - E66.9) Mar, BMI 34.0-34.9,adult (ICD-10 - Z68.34) Mar, Other Summary of Visi t: (A) reviewed plate method (B) discussed wayst o increase fiber and benefits for overall health (C) briefly discussed exercise during winter Patient set the following goals: - NEw pt feels it best to start small to build motivation and momentum [facility] Other 10-27-2023 Evaluation note* Encounter Date Diagnosis Assessment Notes Treatment Notes Treatment Clinical Notes Feb, Obesity (ICD-10 - E66.9) Patient is up 2.1 pounds, still down a total of 8 pounds since starting with us first week of December. Equates to a 3% body weight loss in almost 3 months. Her initial weight loss goal be 5% (11.6 pounds). Our second weight loss goal be 10% (23.2 pounds). Strongly encouraged her to connect and engage with the dietitian for guidance on incorporating more protein with her dietary restrictions on milk and nuts. Focus of protein especially with first meal of the day and an afternoon snack to help curb some of the increased hunger in the evenings. Continue Victoza at the 1.8 mg dose. Consider increasing at future visit if needed Change timing of Victoza injection from first thing in the morning to afternoon or evening We will follow any headache work-up and CTA scheduled next week of the heart Increase water intake Focus on protein with first meal of the day and afternoon snack to help curb evening hunger Feb, Prediabetes (ICD-10 - R73.09) She continues to receive dual benefit of Victoza for both weight loss and improvement in her prediabetes. We will continue to monitor with A1c's throughout patient's clinical course. She denies signs or symptoms of hypoglycemia. Headaches seem to be chronic in nature and were occurring prior to the addition of Victoza. Not high suspicion of Victoza causing headaches at this time. Feb, Arthritis (ICD-10 - M19.90) Feb, GERD (gastroesophageal reflux disease) (ICD-10 - K21.9) Feb, Migraine (ICD-10 - G43.909) Feb, Kidney stone (ICD-10 - N20.0) Feb, Stroke (ICD-10 - I63.9) Feb, Diverticulitis (ICD-10 - K57.92) Feb, Impaired fasting glucose (ICD-10 - R73.01) Feb, Encounter for weight management (ICD-10 - Z76.89) [facility] Other 09-15-2023 Evaluation note* Encounter Date Diagnosis Assessment Notes Treatment Notes Treatment Clinical Notes Jan, Obesity (ICD-10 - E66.9) Patient has made very good progress with a total weight loss of 10.1 pounds since her previous visit 6 weeks ago. She is nearing her initial weight loss goal of 5% (11.6 pounds). Her second weight loss goal be 5% (23.2 pounds) from her initial weight. While I am still not thoroughly convinced that Topamax was the sole cause of her ER visit it is appropriate to stop this medication it has been listed as an allergy. She was able to start Victoza and she is tolerating 1.2 mg dose for the last several days. She feels positive benefit of feeling monet faster and denies any adverse side effects. Praised her for strengthening breakfast habits and reinforced that it does not have to be first thing in the morning but preferably 2 to 3 hours after awakening so that she is not over hungry for lunch from hour. Continue Victoza 1.8 mg dose after titrating up for 1 week at the 1.2 mg dose Reinforced that she must have her daughter request records regarding the pathology report for her thyroid cancer she had her surgery performed at [facility]. Reinforced that it is is responsible for both of us to continue medication if there are known contraindications or risks. She needs to make initial dietitian appointment for individualized meal prep and planning guidance Strongly encouraged her to keep her follow-ups with both cardiology and her outpatient cardiac work-up including her CTA angio important to rule out cardiac causes and/or underlying issues is a primary concern. Jan, Prediabetes (ICD-10 - R73.09) Patient will benefit twofold from Victoza for her both weight loss and improved insulin sensitivity which we will continue to monitor throughout patient's clinical course Jan, Arthritis (ICD-10 - M19.90) Jan, GERD (gastroesophageal reflux disease) (ICD-10 - K21.9) Jan, Migraine (ICD-10 - G43.909) Jan, Kidney stone (ICD-10 - N20.0) Jan, Stroke (ICD-10 - I63.9) Jan, Diverticulitis (ICD-10 - K57.92) Jan, Impaired fasting glucose (ICD-10 - R73.01) Jan, Encounter for weight management (ICD-10 - Z76.89) [facility] Other 08-23-2023 History and physical note Author Nabil Baker [facility] January 04, 2023 2:58am Note Date/Time January 03, 2023 6: 25pm [facility] [address] [place] [address] Hospitalist H&P Signed Patient: Nancy Hooper MR#: [id number] : 1960 Acct:[id number] Age/Sex: 62 / F Adm Date: 3 Loc: Room: [address] [place] [address] Type: ADM INOo Attending Dr: Nabil Baker MD Copies to: MD Nabil Zelaya MD~ HPI DATE OF EXAMINATION: 01/03/23 HISTORY OF PRESENT ILLNESS: This is a pleasant 62F with PMH of HTN, GERD, TIA, Migraine (on Topamax)who p/w chest pain This morning, she started having intermittent substernal sharp/burning pain thatradiates to the back and the neck. She reported having nausea and poor appetite since she started treatment for acute diverticulitis one week ago. She was started on ciprofloxacin and metronidazole with two days left in the course. 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 Shedenies any vomiting, diaphoresis, cough, fever or chills. She stated that shehad an abnormal stress test around one year and half but she didn?t require LHC at that time. No history of any cardiac diseases. ROS: Ten Systems reviewed with the patient, all negative except what stated above and mild LLQ pain Assessment And Plan Chest Pain - rule out ACS The patient presents with chest pain. The characteristic of the pain could be related to GI etiology given her GERD history; however, ACS can't be ruled out. Therefore, the patient was admitted for observation First Troponin is not elevated CTA chest shows No acute chest, Mild basilar atelectasis. Small left thyroid nodules. EKG ED (i personally reviewed it) shows NSR@75 bpm no significant acute changes Nitroglycerin prn Telemetry Antiplatelet: Aspirin Carvedilol EKG am Troponin x3 Lipid panel in am Cardiology consult Recent acute diverticulitis Abd CT shows no acute abdominal pelvic findings. Diffuse colonic diverticulosis without diverticulitis. c/w home Abx Chronic diseases:?Unless mentioned Above, Essential home medications have been continued.? DVT Px:?SCD Plan of care Discussed with:?the medical team, the patient [facility] Medical History Benign tumor removed rt neck area COVID-19 03-29-2020 POS COVID-19 vaccine administered Diverticulitis GERD (gastroesophageal reflux disease) Hypertension Migraine Mitral valve prolapse TIA (transient ischemic attack) Surgical History History of bilateral breast reduction surgery History of knee surgery bilateral -torn meniscus History of tonsillectomy Hx of colonoscopy Family History Brother Myocardial infarction Father Hx of blood clots Leukemia Social History Smoking Status: Never smoker Substance Use Type: None Substance Abuse Comment: OCCASION Meds Medications and Allergies Allergies amoxicillin Allergy (Verified 01/03/23 10:12) Hives azithromycin Allergy (Verified 01/03/23 10:12) Hives cefuroxime Allergy (Verified 01/03/23 10:12) Hives doxycycline Allergy (Verified 01/03/23 10:12) Hives morphine Allergy (Verified 01/03/23 10:12) Hives Penicillins Allergy (Verified 01/03/23 10:12) Unknown Reaction sulfamethoxazole [From Bactrim] Allergy (Verified 01/03/23 10:12) Hives trimethoprim [From Bactrim] Allergy (Verified 01/03/23 10:12) Hives Home Medications aspirin 81 mg chewable tablet 81 mg PO DAILY stroke prevention 02/14/17 [History Confirmed 01/03/23] lisinopril 20 mg tablet 40 mg PO DAILY htn 10/23/20 [History Confirmed 01/03/23] ibuprofen 600 mg tablet 800 mg PO Q8H PRN pain 07/06/21 [History Confirmed 07/14/21] pantoprazole 40 mg tablet,delayed release (Protonix) 40 mg PO BID gerd 07/06/21 [History Confirmed 01/03/23] rimegepant 75 mg disintegrating tablet (Nurtec ODT) 75 mg PO DAILY PRN Migraine Headache 07/06/21 [History Confirmed 01/03/23] ciprofloxacin HCl 500 mg tablet (Cipro) 500 mg PO BID #28 tabs 09/27/21 [Rx Confirmed 01/03/23] metronidazole 500 mg tablet 500 mg PO BID 14 days #28 tabs 09/27/21 [Rx Confirmed 01/03/23] carvedilol 12.5 mg tablet 12.5 mg PO BID 01/03/23 [History Confirmed 01/03/23] hydrochlorothiazide 12.5 mg tablet 12.5 mg PO DAILY 01/03/23 [History Confirmed 01/03/23] topiramate 50 mg tablet 50 mg PO DAILY 01/03/23 [History Confirmed 01/03/23] Exam Physical Exam Vital Signs: Temp Pulse Resp BP Pulse Ox O2 Del Method 36.6 C 67 18 125/75 96 Room Air 01/03/23 17:09 01/03/23 17:09 01/03/23 17:09 01/03/23 17:09 01/03/23 17:09 01/03/23 17:09 Narrative: GEN: Pleasant, Cooperative, Not in acute distress. NECK: Supple, ? JVD LUNGS: CTA CHEST: no chest wall tenderness. CV: S1S2 nl, ? M/R/G ABD: Soft, ND, mild LLQ tenderness , + BS, ? rebound/guarding, ?CVA tenderness, ? HSM EXT: No edema in LE bilaterally, no calf muscle tenderness. NEURO: ? FND PSYCH: nl affect, AOx3. Results Lab Results Labs: Laboratory Last Values Corrected WBC 8.2 X10E3/uL (3.8-11.6) 01/03/23 10:20 Uncorrected WBC Count 8.2 x10E3/uL (3.8-11.6) 01/03/23 10:20 RBC 4.84 X10E6/uL (3.60-5.00) 01/03/23 10:20 Hgb 14.7 g/dL (11.8-15.4) 01/03/23 10:20 Hct 43.7 % (34.0-46.4) 01/03/23 10:20 MCV 90.2 fl (80-100) 01/03/23 10:20 MCH 30.3 pg (24.7-34.3) 01/03/23 10:20 MCHC 33.6 g/dL (32.0-35.0) 01/03/23 10:20 RDW 12.8 % (11.9-15.3) 01/03/23 10:20 Plt Count 270 x10E3/uL (150-450) 01/03/23 10:20 MPV 7.2 fl (6.3-10.7) 01/03/23 10:20 Neut % (Auto) 74.9 % (.) 01/03/23 10:20 Lymph % (Auto) 15.0 % (.) 01/03/23 10:20 Kershaw % (Auto) 8.4 % (.) 01/03/23 10:20 Eos % (Auto) 0.7 % (.) 01/03/23 10:20 Baso % (Auto) 1.0 % (.) 01/03/23 10:20 Nucleat RBC Rel Count 0.1 /100 WBC (0-0.5) 01/03/23 10:20 Neut # (Auto) 6.2 x10E3/uL (1.8-7.7) 01/03/23 10:20 Lymph # (Auto) 1.2 x10E3/uL (1.00-4.8) 01/03/23 10:20 Kershaw # (Auto) 0.7 x10E3/uL (0.0-0.8) 01/03/23 10:20 Eos # (Auto) 0.1 x10E3/uL (0.0-0.45) 01/03/23 10:20 Baso # (Auto) 0.1 x10E3/uL (0.0-0.2) 01/03/23 10:20 Monocyte Dist Width 22.07 % (0.00-20.00) H 01/03/23 10:20 PT 12.7 Seconds (9.0-12.9) 01/03/23 10:20 INR 1.1 01/03/23 10:20 APTT 20.6 Seconds (25.1-36.5) L 01/03/23 10:20 PHA Creatinine Clear 89.05 01/03/23 10:52 Sodium 138 mmol/L (136-145) 01/03/23 10:52 Potassium 3.5 mmol/L (3.5-5.1) 01/03/23 10:52 Chloride 106 mmol/L (98-107) 01/03/23 10:52 Carbon Dioxide 24.5 mmol/L (21.0-31.0) 01/03/23 10:52 Anion Gap 11.0 mEq/L (6.0-15.0) 01/03/23 10:52 BUN 29 mg/dL (7-25) H 01/03/23 10:52 Creatinine 0.82 mg/dL (0.60-1.20) 01/03/23 10:52 Est GFR (CKD-EPI) > 60.0 mL/Min 01/03/23 10:52 Glucose 107 mg/dL (70-100) H 01/03/23 10:52 Calcium 9.3 mg/dL (8.6-10.3) 01/03/23 10:52 Total Bilirubin 0.4 mg/dl (0.3-1.0) 01/03/23 10:52 AST 20 U/L (13-39) 01/03/23 10:52 ALT 25 U/L (7-52) 01/03/23 10:52 Alkaline Phosphatase 55 U/L (34-104) 01/03/23 10:52 Total Creatine Kinase 31 U/L (30-223) 01/03/23 10:52 Troponin I High Sens 13.3 pg/mL (0.0-15.0) 01/03/23 15:09 B-Natriuretic Peptide 19.0 pg/mL (5-100) 01/03/23 10:20 Total Protein 7.4 gm/dL (6.4-8.9) 01/03/23 10:52 Albumin 4.1 gm/dL (3.5-5.7) 01/03/23 10:52 Globulin 3.3 gm/dL 01/03/23 10:52 Albumin/Globulin Ratio 1.2 01/03/23 10:52 Urine Color Yellow (Yellow) 01/03/23 15:03 Urine Appearance Clear (Clear) 01/03/23 15:03 Urine pH 6.5 (5.0-9.0) 01/03/23 15:03 Ur Specific [place] 1.024 (1.001-1.030) 01/03/23 15:03 Urine Protein Negative mg/dL (Negative) 01/03/23 15:03 Urine Glucose (UA) Normal mg/dL (Normal) 01/03/23 15:03 Urine Ketones Negative (Negative) 01/03/23 15:03 Urine Occult Blood Negative (Negative) 01/03/23 15:03 Urine Nitrite Negative (Negative) 01/03/23 15:03 Urine Bilirubin Negative (Negative) 01/03/23 15:03 Urine Urobilinogen Normal mg/dL (Normal) 01/03/23 15:03 Ur Leukocyte Esterase Negative (Negative) 01/03/23 15:03 Assessment & Plan IP vs OBS Justification Based on differential dx, clinical care plan, and risk of adverse events, if untreated, in my clinical judgement this patient requires an acute care setting as: OBSERVATION because of an expectation of an under 2 midnight stay. Estimated length of stay (# of days): 1 Documented By: Nabil Baker MD 01/03/23 2681 Signed By: <Electronically signed by Nabil Baker MD> 01/04/23 0258 [facility] Work Phone: [phone]) 500-655508-04-2023 Evaluation note* Encounter Date Diagnosis Assessment Notes Treatment Notes Treatment Clinical Notes Dec, Obesity (ICD-10 - E66.9) Findings consistent with obesity. Patient understands that this increases risk of multiple comorbidities associated with weight gain especially if there is a genetic predisposition. Discussed the complexity behind obesity and its multifactorial causes including genetics, the biological changes that occur with processed foods as well as lack of physical activity. We will assess for underlying causes of abnormal weight gain including thyroid dysfunction, poor sleep, medications, diet, etc. Discussed importance of adopting a healthier lifestyle in order to decrease or eliminate risk of impending diseases associated with excessive weight. Initial goal of modest weight loss approximately 3 to 5% can help to improve risk factors and some comorbidities. Our second goal of 10 to 15% weight loss can result in even more potentially disease modifying, remission, or improved mortality benefits. Initial goals include consistent mealtimes throughout the day with a goal of protein forward meal or snack within 2 to 3 hours upon awakening and every 3-4 hours throughout the day. Prioritize meal prep and planning especially for lunches connect and engage with dietitian Encouraged to get back on her hydrochlorothiazide soon as possible she has been out for 3 weeks and her blood pressure reflects this. Work on small goals of exercise 1 to 2 days a week for 15 to 20 minutes and build upon that Be aware of empty calorie intake with alcoholic beverages 3-4 beers per week is no less than 400 to 500 david additional per week We discussed medication options including a GLP-1 agonist. She had been on and tolerated Saxenda in the past. She does have a family history of thyroid cancer in her daughter, she had to have a nodule removed she states it was positive for cancer but did not have to undergo any radiation or chemotherapy. He is unsure if it is medullary or papillary in nature but she will investigate this After patient provider discussion we are both comfortable starting a medication such as topiramate that she has done well with in the past and may give her the additional edge for her evening snacking and decreased appetite. Could consider Ozempic or Victoza after thorough investigation of history of thyroid cancer in the family Could also consider Wellbutrin naltrexone or metformin especially with prediabetes diagnosis. Would avoid phentermine containing products at this time due to uncontrolled hypertension. Dec, Prediabetes (ICD-10 - R73.09) Patient meets criteria for prediabetes with A1c of 5.6 and elevated fasting glucose. First-line treatment with long-term healthy lifestyle change, decrease simple sweets and refined starches, increased exercise and activity and continue with long-term weight loss goals. Will need close long-term follow-up for this condition to prevent diabetes. Consider metformin or GLP-1 agonist. Dec, Arthritis (ICD-10 - M19.90) Patient admits to pain which is likely exacerbated/second leidy to increased weight. Treat with exercise incorporating low impact exercises or modifications as needed. Advised that there are multiple different exercise programs available, many of which can be done within the home that required little to no impact. Encouraged swimming as feasible. Slowly increase activity over time to reach goal of 30 minutes most days of the week. Strongly encouraged to take advantage of our teamcenter consultant available at [facility] that can help work around limitations. Each pound of weight loss is exponentially beneficial for weight bearing joints. Dec, GERD (gastroesophageal reflux disease) (ICD-10 - K21.9) Patient does suffer from GERD likely related to/ exacerbated by increased weight. Her GERD seems to be triggered most by acidic foods. Treat with weight loss and dietary changes. With moderate weight loss patient could achieve complete relief from GERD symptoms due to increased intraabdominal pressure. Could consider goal of being weaned off of medication after consideration to any other underlying etiologies/treatme nt. Patient to work closely with dietitian to help make healthy dietary choices and avoid reflux- inducing foods. Briefly discussed these including avoiding citrus, high fat dairy, high fat meats and carbonated beverages, alcohol and coffee. Dec, Migraine (ICD-10 - G43.909) Patient does have a history of migraines not currently on any daily treatment has Nurtec as needed for flareups. She has had migraines to the point that they have caused paralysis mimicking a stroke. She has previously been on topiramate and tolerated at higher doses without any adverse effect. She has had benefit of weight loss with this as well. Dec, Kidney stone (ICD-10 - N20.0) Dec, Stroke (ICD-10 - I63.9) Formal diagnosis of stroke is questionable as she states it may have been either a TIA versus migraine as all of her symptoms had resolved. This is all subjective information from the patient. Dec, Diverticulitis (ICD-10 - K57.92) Dec, Impaired fasting glucose (ICD-10 - R73.01) [facility] Other 04-11-2023 Evaluation note* Encounter Date Diagnosis Assessment Notes Treatment Notes Treatment Clinical Notes Aug, Injury of right wrist, initial encounter (ICD-10 - S69.91XA) Aug, Injury of right knee , initial encounter (ICD-10 - S89.91XA) Patient is progressing well from this injury. Progress activity as tolerated. Call with any concerns or questions Aug, Sprain of right wrist, initial encounter (ICD-10 - S63.501A) Aug, Primary osteoarthritis of right knee (ICD-10 - M17.11) Aug, Acute pain of right knee (ICD-10 - M25.561) Aug, Right wrist pain (ICD-10 - M25.531) [facility] Other 03-27-2023 Evaluation note* Encounter Date Diagnosis Assessment Notes Treatment Notes Treatment Clinical Notes Jul, Injury of right wrist, initial encounter (ICD-10 - S69.91XA) Jul, Injury of right knee , initial encounter (ICD-10 - S89.91XA) Jul, Sprain of right wrist, initial encounter (ICD-10 - S63.501A) Extensive discussion about current condition and treatment options available. The patient appears to have suffered a wrist sprain. We will allow progressive gentle wrist motion as pain allows. We discussed the importance of icing and elevation of the arm above the heart to prevent swelling. We discussed that this injury will most likely cause pain for many weeks. Instructed on appropriate use of splinting during healing period. Patient placed in cock up wrist splint Off work note given for three days Jul, Primary osteoarthritis of right knee (ICD-10 - M17.11) Extensive discussion about current condition and treatment options available. The patient is suffering from degenerative arthritis involving the knee. We discussed the conservative treatment options which can be beneficial in relieving pain, including gentle non-impact motion exercise and non-steroidal anti-inflammatory medication. We discussed the use of occasional cortisone injections that can provide pain relief as well as hyaluronan lubricant injection. We performed a 2/1cc marcaine / kenalog cortisone injection into the knee joint under sterile technique. Patient tolerated the injection well without adverse reaction. Jul, Acute pain of right knee (ICD-10 - M25.561) Jul, Right wrist pain (ICD-10 - M25.531) [facility] Other 12-21-2021 Evaluation note* Encounter Date Diagnosis Assessment Notes Treatment Notes Treatment Clinical Notes Apr, Encounter for immunization (ICD-10 - Z23) Patient presents for COVID-19 vaccination BOOSTER. Pre-screening form answers evaluated with patient. Patient denies current illness or allergic reaction to component of COVID-19 vaccine. Patient provided with current copy of EUA. [facility] Other Consult note Author Kajal Mccauley [facility] January 04, 2023 4:27pm Note Date/Time January 04, 2023 4: 24pm [facility] [address] [place] [address] Cardiology Consult Note Signed Patient: Nancy Hooper MR#: [id number] : 1960 Acct:[id number] Age/Sex: 62 / F Adm Date: 3 Loc: Room: [address] [place] [address] Type: ADM INOo Attending Dr: Nabil Baker MD Copies to: MD Kajal Zelaya MD, [facility] Nabil Baker MD~ Cardiology HPI History of Present Illness Consult Date: 01/04/23 Reason for Consult: Chest pain HPI: Ms. Hooper is a 62 year old female who works in [employer] [facility] [employer] and who is being seen at the request of the hospitalist for evaluation of chest pain. Patient was evaluated last year for similar presentation with nuclear stress test and echocardiogram which came back normal. She has recently been experiencing symptoms of diverticulitis but presented with symptoms of chest pain. The pain is atypical in nature and not necessarily exertional in nature, there is no associated diaphoresis nausea or vomiting no palpitations and no lightheadedness or jaw pain. In the ER her EKG was unremarkable and her enzymes were normal. Chest x-ray was unremarkable. Vital signs were stable her biochemistry was unremarkable as well. She was admitted for further evaluation with no recurrence of symptoms. At the present time she is back to her baseline feeling normal. I did discuss with the patient the findings of her noninvasive vesication last year and since she has family history of CAD with her brother had to have bypass surgery at young age she was advised to pursue further more definitive answers as far as coronary artery disease and I suggested doing outpatient coronary CT angiography with coronary calcium score. Her present medical therapy will be left unchanged and the patient can be discharged home safely and she can return to work with no restrictions Review of Systems Review of Systems Review of systems: All other review of system essentially unremarkable [facility] Medical History Benign tumor removed rt neck area COVID-19 03-29-2020 POS COVID-19 vaccine administered Diverticulitis GERD (gastroesophageal reflux disease) Hypertension Migraine Mitral valve prolapse TIA (transient ischemic attack) Surgical History History of bilateral breast reduction surgery History of knee surgery bilateral -torn meniscus History of tonsillectomy Hx of colonoscopy Family History Brother Myocardial infarction Father Hx of blood clots Leukemia Social History Smoking Status: Never smoker Substance Use Type: None Substance Abuse Comment: OCCASION Meds Medications and Allergies Allergies amoxicillin Allergy (Verified 01/03/23 10:12) Hives azithromycin Allergy (Verified 01/03/23 10:12) Hives cefuroxime Allergy (Verified 01/03/23 10:12) Hives doxycycline Allergy (Verified 01/03/23 10:12) Hives morphine Allergy (Verified 01/03/23 10:12) Hives Penicillins Allergy (Verified 01/03/23 10:12) Unknown Reaction sulfamethoxazole [From Bactrim] Allergy (Verified 01/03/23 10:12) Hives trimethoprim [From Bactrim] Allergy (Verified 01/03/23 10:12) Hives Home Medications aspirin 81 mg chewable tablet 81 mg PO DAILY stroke prevention 02/14/17 [History Confirmed 01/03/23] lisinopril 20 mg tablet 40 mg PO DAILY htn 10/23/20 [History Confirmed 01/03/23] ibuprofen 600 mg tablet 800 mg PO Q8H PRN pain 07/06/21 [History Confirmed 07/14/21] pantoprazole 40 mg tablet,delayed release (Protonix) 40 mg PO BID gerd 07/06/21 [History Confirmed 01/03/23] rimegepant 75 mg disintegrating tablet (Nurtec ODT) 75 mg PO DAILY PRN Migraine Headache 07/06/21 [History Confirmed 01/03/23] ciprofloxacin HCl 500 mg tablet (Cipro) 500 mg PO BID #28 tabs 09/27/21 [Rx Confirmed 01/03/23] metronidazole 500 mg tablet 500 mg PO BID 14 days #28 tabs 09/27/21 [Rx Confirmed 01/03/23] carvedilol 12.5 mg tablet 12.5 mg PO BID 01/03/23 [History Confirmed 01/03/23] hydrochlorothiazide 12.5 mg tablet 12.5 mg PO DAILY 01/03/23 [History Confirmed 01/03/23] topiramate 50 mg tablet 50 mg PO DAILY 01/03/23 [History Confirmed 01/03/23] Exam Physical Exam Vital Signs: Temp Pulse Resp BP Pulse Ox O2 Del Method 98.3 F 61 18 124/82 97 Room Air 01/04/23 15:52 01/04/23 15:52 01/04/23 15:52 01/04/23 15:52 01/04/23 15:52 01/04/23 15:52 Const General: cooperative, comfortable and no acute distress Nutritional Appearance: obese Orientation: alert, awake and oriented x3 HEENT Head: normal to inspection, normocephalic and atraumatic Ears: hearing grossly normal bilaterally Nose: external nose normal Face and sinus: normal facial exam Eyes Conjunctivae: conjunctivae normal Pupils: PERRL Neck Neck: normal visual inspection, no lymphadenopathy, trachea midline and supple Neck mass: No Thyroid: thyroid normal Carotids: normal carotid upstroke Resp Effort & Inspection: normal respiratory effort Auscultation: clear to auscultation bilaterally Cardio Jugular venous pressure: no JVD Palpation: normal PMI Rate: regular rate Rhythm: regular rhythm Heart Sounds: S1 normal and S2 normal GI Inspection: normal to inspection Palpation: soft and no hepatosplenomegaly Auscultation: normal bowel sounds Extrem General: no clubbing, cyanosis or edema Results Labs 01/03/23 10:20 01/04/23 06:29 Lab results: Lipids 01/04/23 Range/Units 06:29 Triglycerides 78 (0-149) mg/dL Cholesterol 122 L (140-200) mg/dL HDL Cholesterol 39 (23-92) mg/dL Cholesterol/HDL Ratio 3.1 (<5.0) Comprehensive Metabolic Panel 01/04/23 Range/Units 06:29 Sodium 141 (136-145) mmol/L Potassium 3.6 (3.5-5.1) mmol/L Chloride 108 H (98-107) mmol/L Carbon Dioxide 25.7 (21.0-31.0) mmol/L BUN 25 (7-25) mg/dL Creatinine 0.83 (0.60-1.20) mg/dL Glucose 101 H (70-100) mg/dL Calcium 9.1 (8.6-10.3) mg/dL Intake and Output 01/04/23 01/04/23 01/04/23 07:59 15:59 23:59 Intake Total 200 / 500 300 / 500 Balance 200 / 500 300 / 500 Intake: Oral 200 / 500 300 / 500 Other: # Unmeasured Voids 2 2 Weight 100.3 kg Date of Last Bowel Movement 01/03/23 Patient Weight 01/04/23 23:59 Weight 100.3 kg Lab 01/03/23 10:20 PT 12.7 INR 1.1 APTT 20.6 L A&P - Cardiology (1) Chest pain: Assessment/Problem Details: Atypical in nature with normal stress test last year. She does have risk factorfor CAD including family history of premature CAD. Plan: Continue home medication including aspirin and obtain outpatient coronary CT angiography with coronary calcium score, if no significant abnormalities there should be no further cardiac work-up, my office will arrange for the test Code(s): R07.9 - Chest pain, unspecified (2) Hypertension: Assessment/Problem Details: Currently controlled on medical therapy Plan: Continue home medications Qualifiers: Hypertension type: essential hypertension Qualified Code(s): I10 - Essential (primary) hypertension Code(s): I10 - Essential (primary) hypertension Documented By: Kajal Mccauley MD, [facility] [id number] Signed By: <Electronically signed by MD PETTY Mccauley> 01/04/231626 [facility] Work Phone: Discharge summary Author Nabil Baker [facility] January 05, 2023 1:20am Note Date/Time January 04, 2023 3: 34pm [facility] [address] [place] [address] Discharge Summary Signed Patient: Nancy Hooper MR#: [id number] : 1960 Acct:[id number] Age/Sex: 62 / F Adm Date: 3 Loc: Room: [address] [place] [address]: Nabil Baker MD Copies to: MD Nabil Zelaya MD~ Providers Date of Discharge: 01/04/23 Discharging Provider: Nabil Baker Primary Care Provider: Cecilio Dumont Consults: * Kajal Mccauley MD; Cardiology Discharge Diagnosis (1) Chest pain: (2) Acute diverticulitis: (3) GERD (gastroesophageal reflux disease): (4) Left thyroid nodule: Final Diagnosis Final Discharge Diagnosis: As Above Summary Hospital Course Hospital course: Mrs. Hooper is a pleasant 62F with PMH of HTN, GERD, TIA, Migraine (on Topamax)who p/w chest pain Chest Pain - ACS ruled out The patient presents with chest pain. ACS can't be ruled out. Therefore, the patient was admitted for observation * Troponin x3 is not elevated * CTA chest shows No acute chest, Mild basilar atelectasis. Small left thyroid nodules. * EKG shows NSR no significant acute changes * Lipid panel(LDL 67, HDL 39) She was evaluated by Cardiology and cleared for discharge and outpatient follow up. She is to continue Aspirin and Carvedilol . Cardiology office to arrange foroutpatient CT Coronary Artery Calcium Score appointment Recent acute diverticulitis Abd CT shows no acute abdominal pelvic findings. Diffuse colonic diverticulosis without diverticulitis. The patient was advised to continue with her home antibiotic regimen and to complete the prescribed course as directed. * All other chronic conditions were stable during the patient's stay unless mentioned above. I have seen and examined the patient on the date of this note. The patient is stable and improved. Therefore, the patient will be discharged tocontinue treatment as an outpatient. verbal and written discharge instructions will be provided. Time Spent with Patient Time spent providing/coordinating discharge services (# min): 25 Diagnostic Studies Completed and Pending Studies Labs on day of discharge: 01/04/23 06:29: Troponin I High Sens 8.5 01/04/23 06:29: PHA Creatinine Clear 87.71, Sodium 141, Potassium 3.6, Chloride 108 H, Carbon Dioxide 25.7, Anion Gap 10.9, BUN 25, Creatinine 0.83, Est GFR (CKD- EPI) > 60.0, Glucose 101 H, Calcium 9.1, Magnesium 2.2, Triglycerides 78, Cholesterol 122 L, LDL Cholesterol, Calc 67, VLDL Cholesterol 15, HDL Cholesterol 39, Cholesterol/HDL Ratio 3.1 01/03/23 15:09: Troponin I High Sens 13.3 01/03/23 15:03: Urine Color Yellow, Urine Appearance Clear, Urine pH 6.5, Ur Specific [place] 1.024, Urine Protein Negative, Urine Glucose (UA) Normal, UrineKetones Negative, Urine Occult Blood Negative, Urine Nitrite Negative, Urine Bilirubin Negative, Urine Urobilinogen Normal, Ur Leukocyte Esterase Negative Exam Physical Exam Narrative: BP: 103/69; Pulse: 68; Temp: 36.6C; RR: 20; SpO2: 97% [On RA] GEN: Pleasant, Cooperative, Not in acute distress. Chest CTA CV: S1S2 nl, ? M/R/G EXT: No edema in LE bilaterally. Discharge Plan Discharge Plan Patient Disposition: Home Activity: No Activity Restriction Diet: Low-Sodium Stand Alone Forms: Work/School Release Form Prescriptions: Continued aspirin 81 mg Tablet,Chewable 81 mg PO DAILY lisinopril 20 mg tablet 40 mg PO DAILY pantoprazole [Protonix] 40 mg tablet,delayed release (DR/EC) 40 mg PO BID ibuprofen 600 mg tablet 800 mg PO Q8H PRN (Reason: pain) Nurtec ODT 75 mg tablet,disintegrating 75 mg PO DAILY PRN (Reason: Migraine Headache) Patient Comments: 1 tablet by mouth once a day ciprofloxacin HCl [Cipro] 500 mg tablet 500 mg PO BID Qty: 28 0RF Rx Instructions: administer dose at least 2 hrs before/6 hrs after dairy products, calcium, zinc, and/or iron-containing products metronidazole 500 mg tablet 500 mg PO BID 14 Days Qty: 28 0RF carvedilol 12.5 mg tablet 12.5 mg PO BID Patient Comments: TAKE 1 TABLET BY MOUTH TWICE DAILY WITH FOOD topiramate 50 mg tablet 50 mg PO DAILY Patient Comments: take TABLET BY MOUTH ONCE DAILY FOR 7 DAYS THEN increase TO 1 TABLET DAILY hydrochlorothiazide 12.5 mg tablet 12.5 mg PO DAILY Patient Comments: TAKE 1 TABLET BY MOUTH EVERY MORNING Follow Up: Anneliese Garcia MD [Active Staff] - (we will call you with follow up and outpatient CT Angiogram and calcium scoring appointment. ) Cecilio Dumont MD [Primary Care Provider] - 01/11/23 10:45 am (You have been scheduled for a follow up appointment for the following date and time, please call to reschedule if needed.) Documented By: Nabil Baker MD 01/04/23 1530 Signed By: <Electronically signed by Nabil Baker MD> 01/05/23 0120 [facility] Work Phone: Evaluation + Plan note No data available for this section [facility] [place] Evaluation noteNo assessment information available [facility] Work Phone: Evaluation note* Diagnosis Onset Date Resolution Status Chest pain acute Hypertension chronic [facility] Work Phone: Evaluation noteNo [facility] [place] Other Evaluation note* Diagnosis Precordial pain- Primary Essential hypertension, benign BMI 34.0-34.9,adult Encounter to discuss test results Other specified counseling documented in this encounter [facility] Work Phone: Evaluation note* Diagnosis Onset Date Resolution Status Arthritis acute GERD (gastroesophageal reflux disease) acute Obesity, Class I, BMI 30-34.9 acute Prediabetes acute Stroke acute Encounter for weight management noneactive Arthritis acute GERD (gastroesophageal reflux disease) acute Obesity, Class I, BMI 30-34.9 acute Prediabetes acute Stroke acute Encounter for weight management noneactive [facility] Work Phone: Evaluation note* Diagnosis Onset Date Resolution Status Arthritis acute GERD (gastroesophageal reflux disease) acute Obesity, Class I, BMI 30-34.9 acute Prediabetes acute Stroke acute Encounter for weight management noneactive [facility] Work Phone: Evaluation note* Diagnosis Precordial pain- Primary Essential hypertension, benign Diverticulosis Diverticulosis of colon (without mention of hemorrhage) BMI 32.0-32.9,adult Never smoked tobacco documented in this encounter [facility] Work Phone: Evaluation note* Diagnosis Onset Date Resolution Status Admit Date Arthritis acute June 12, 2024 8:06am GERD (gastroesophageal reflux disease) acute June 12 8:06am Obesity, Class I, BMI 30-34.9 acute June 12 8:06am Prediabetes acute June 12, 2024 8:06am Stroke acute June 12, 2024 8:06am Encounter for weight management noneactive June 12 8:06am [facility] Work Phone: Evaluation note* Diagnosis Onset Date Resolution Status Admit Date Arthritis acute September 11 8:10am GERD (gastroesophageal reflu x disease) acute September 11, 2024 8:10am Obesity, Class I, BMI 30-34.9 acute September 11, 2024 8:10am Prediabetes acute September 11, 025 8:10am Stroke acute September 11 8:10am Encounter for weight management noneactive September 11, 2024 8:10am [facility] Work Phone: Evaluation note* Diagnosis DJD (degenerative joint disease), ankle and foot, left- Primary Bone spur of left foot Capsulitis of metatarsophalangeal (MTP) joint of left foot [facility] Diagnosis Capsulitis of metatarsophalangeal (MTP) joint of left foot- Primary Bone spur of left foot DJD (degenerative joint disease), ankle and foot, left [facility] Author Nabil Baker [facility] January 04, 2023 2:58am Note Date/Time January 03, 2023 6: 25pm [facility] [address] [place] [address] Hospitalist H&P Signed Patient: Nancy Hooper MR#: [id number] : 1960 Acct:[id number] Age/Sex: 62 / F Adm Date: 3 Loc: 3T Room: [address] [place] [address] Type: ADM INOo Attending Dr: Nabil Baker MD Copies to: MD Nabil Zelaya MD~ HPI DATE OF EXAMINATION: 01/03/23 HISTORY OF PRESENT ILLNESS: This is a pleasant 62F with PMH of HTN, GERD, TIA, Migraine (on Topamax)who p/w chest pain This morning, she started having intermittent substernal sharp/burning pain thatradiates to the back and the neck. She reported having nausea and poor appetite since she started treatment for acute diverticulitis one week ago. She was started on ciprofloxacin and metronidazole with two days left in the course. 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 Shedenies any vomiting, diaphoresis, cough, fever or chills. She stated that shehad an abnormal stress test around one year and half but she didn?t require LHC at that time. No history of any cardiac diseases. ROS: Ten Systems reviewed with the patient, all negative except what stated above and mild LLQ pain Assessment And Plan Chest Pain - rule out ACS The patient presents with chest pain. The characteristic of the pain could be related to GI etiology given her GERD history; however, ACS can't be ruled out. Therefore, the patient was admitted for observation First Troponin is not elevated CTA chest shows No acute chest, Mild basilar atelectasis. Small left thyroid nodules. EKG ED (i personally reviewed it) shows NSR@75 bpm no significant acute changes Nitroglycerin prn Telemetry Antiplatelet: Aspirin Carvedilol EKG am Troponin x3 Lipid panel in am Cardiology consult Recent acute diverticulitis Abd CT shows no acute abdominal pelvic findings. Diffuse colonic diverticulosis without diverticulitis. c/w home Abx Chronic diseases:?Unless mentioned Above, Essential home medications have been continued.? DVT Px:?SCD Plan of care Discussed with:?the medical team, the patient [facility] Medical History Benign tumor removed rt neck area COVID-19 03-29-2020 POS COVID-19 vaccine administered Diverticulitis GERD (gastroesophageal reflux disease) Hypertension Migraine Mitral valve prolapse TIA (transient ischemic attack) Surgical History History of bilateral breast reduction surgery History of knee surgery bilateral -torn meniscus History of tonsillectomy Hx of colonoscopy Family History Brother Myocardial infarction Father Hx of blood clots Leukemia Social History Smoking Status: Never smoker Substance Use Type: None Substance Abuse Comment: OCCASION Meds Medications and Allergies Allergies amoxicillin Allergy (Verified 01/03/23 10:12) Hives azithromycin Allergy (Verified 01/03/23 10:12) Hives cefuroxime Allergy (Verified 01/03/23 10:12) Hives doxycycline Allergy (Verified 01/03/23 10:12) Hives morphine Allergy (Verified 01/03/23 10:12) Hives Penicillins Allergy (Verified 01/03/23 10:12) Unknown Reaction sulfamethoxazole [From Bactrim] Allergy (Verified 01/03/23 10:12) Hives trimethoprim [From Bactrim] Allergy (Verified 01/03/23 10:12) Hives Home Medications aspirin 81 mg chewable tablet 81 mg PO DAILY stroke prevention 02/14/17 [History Confirmed 01/03/23] lisinopril 20 mg tablet 40 mg PO DAILY htn 10/23/20 [History Confirmed 01/03/23] ibuprofen 600 mg tablet 800 mg PO Q8H PRN pain 07/06/21 [History Confirmed 07/14/21] pantoprazole 40 mg tablet,delayed release (Protonix) 40 mg PO BID gerd 07/06/21 [History Confirmed 01/03/23] rimegepant 75 mg disintegrating tablet (Nurtec ODT) 75 mg PO DAILY PRN Migraine Headache 07/06/21 [History Confirmed 01/03/23] ciprofloxacin HCl 500 mg tablet (Cipro) 500 mg PO BID #28 tabs 09/27/21 [Rx Confirmed 01/03/23] metronidazole 500 mg tablet 500 mg PO BID 14 days #28 tabs 09/27/21 [Rx Confirmed 01/03/23] carvedilol 12.5 mg tablet 12.5 mg PO BID 01/03/23 [History Confirmed 01/03/23] hydrochlorothiazide 12.5 mg tablet 12.5 mg PO DAILY 01/03/23 [History Confirmed 01/03/23] topiramate 50 mg tablet 50 mg PO DAILY 01/03/23 [History Confirmed 01/03/23] Exam Physical Exam Vital Signs: Temp Pulse Resp BP Pulse Ox O2 Del Method 36.6 C 67 18 125/75 96 Room Air 01/03/23 17:09 01/03/23 17:09 01/03/23 17:09 01/03/23 17:09 01/03/23 17:09 01/03/23 17:09 Narrative: GEN: Pleasant, Cooperative, Not in acute distress. NECK: Supple, ? JVD LUNGS: CTA CHEST: no chest wall tenderness. CV: S1S2 nl, ? M/R/G ABD: Soft, ND, mild LLQ tenderness , + BS, ? rebound/guarding, ?CVA tenderness, ? HSM EXT: No edema in LE bilaterally, no calf muscle tenderness. NEURO: ? FND PSYCH: nl affect, AOx3. Results Lab Results Labs: Laboratory Last Values Corrected WBC 8.2 X10E3/uL (3.8-11.6) 01/03/23 10:20 Uncorrected WBC Count 8.2 x10E3/uL (3.8-11.6) 01/03/23 10:20 RBC 4.84 X10E6/uL (3.60-5.00) 01/03/23 10:20 Hgb 14.7 g/dL (11.8-15.4) 01/03/23 10:20 Hct 43.7 % (34.0-46.4) 01/03/23 10:20 MCV 90.2 fl (80-100) 01/03/23 10:20 MCH 30.3 pg (24.7-34.3) 01/03/23 10:20 MCHC 33.6 g/dL (32.0-35.0) 01/03/23 10:20 RDW 12.8 % (11.9-15.3) 01/03/23 10:20 Plt Count 270 x10E3/uL (150-450) 01/03/23 10:20 MPV 7.2 fl (6.3-10.7) 01/03/23 10:20 Neut % (Auto) 74.9 % (.) 01/03/23 10:20 Lymph % (Auto) 15.0 % (.) 01/03/23 10:20 [place] % (Auto) 8.4 % (.) 01/03/23 10:20 Eos % (Auto) 0.7 % (.) 01/03/23 10:20 Baso % (Auto) 1.0 % (.) 01/03/23 10:20 Nucleat RBC Rel Count 0.1 /100 WBC (0-0.5) 01/03/23 10:20 Neut # (Auto) 6.2 x10E3/uL (1.8-7.7) 01/03/23 10:20 Lymph # (Auto) 1.2 x10E3/uL (1.00-4.8) 01/03/23 10:20 [place] # (Auto) 0.7 x10E3/uL (0.0-0.8) 01/03/23 10:20 Eos # (Auto) 0.1 x10E3/uL (0.0-0.45) 01/03/23 10:20 Baso # (Auto) 0.1 x10E3/uL (0.0-0.2) 01/03/23 10:20 Monocyte Dist Width 22.07 % (0.00-20.00) H 01/03/23 10:20 PT 12.7 Seconds (9.0-12.9) 01/03/23 10:20 INR 1.1 01/03/23 10:20 APTT 20.6 Seconds (25.1-36.5) L 01/03/23 10:20 PHA Creatinine Clear 89.05 01/03/23 10:52 Sodium 138 mmol/L (136-145) 01/03/23 10:52 Potassium 3.5 mmol/L (3.5-5.1) 01/03/23 10:52 Chloride 106 mmol/L (98-107) 01/03/23 10:52 Carbon Dioxide 24.5 mmol/L (21.0-31.0) 01/03/23 10:52 Anion Gap 11.0 mEq/L (6.0-15.0) 01/03/23 10:52 BUN 29 mg/dL (7-25) H 01/03/23 10:52 Creatinine 0.82 mg/dL (0.60-1.20) 01/03/23 10:52 Est GFR (CKD-EPI) > 60.0 mL/Min 01/03/23 10:52 Glucose 107 mg/dL (70-100) H 01/03/23 10:52 Calcium 9.3 mg/dL (8.6-10.3) 01/03/23 10:52 Total Bilirubin 0.4 mg/dl (0.3-1.0) 01/03/23 10:52 AST 20 U/L (13-39) 01/03/23 10:52 ALT 25 U/L (7-52) 01/03/23 10:52 Alkaline Phosphatase 55 U/L (34-104) 01/03/23 10:52 Total Creatine Kinase 31 U/L (30-223) 01/03/23 10:52 Troponin I High Sens 13.3 pg/mL (0.0-15.0) 01/03/23 15:09 B-Natriuretic Peptide 19.0 pg/mL (5-100) 01/03/23 10:20 Total Protein 7.4 gm/dL (6.4-8.9) 01/03/23 10:52 Albumin 4.1 gm/dL (3.5-5.7) 01/03/23 10:52 Globulin 3.3 gm/dL 01/03/23 10:52 Albumin/Globulin Ratio 1.2 01/03/23 10:52 Urine Color Yellow (Yellow) 01/03/23 15:03 Urine Appearance Clear (Clear) 01/03/23 15:03 Urine pH 6.5 (5.0-9.0) 01/03/23 15:03 Ur Specific [place] 1.024 (1.001-1.030) 01/03/23 15:03 Urine Protein Negative mg/dL (Negative) 01/03/23 15:03 Urine Glucose (UA) Normal mg/dL (Normal) 01/03/23 15:03 Urine Ketones Negative (Negative) 01/03/23 15:03 Urine Occult Blood Negative (Negative) 01/03/23 15:03 Urine Nitrite Negative (Negative) 01/03/23 15:03 Urine Bilirubin Negative (Negative) 01/03/23 15:03 Urine Urobilinogen Normal mg/dL (Normal) 01/03/23 15:03 Ur Leukocyte Esterase Negative (Negative) 01/03/23 15:03 Assessment & Plan IP vs OBS Justification Based on differential dx, clinical care plan, and risk of adverse events, if untreated, in my clinical judgement this patient requires an acute care setting as: OBSERVATION because of an expectation of an under 2 midnight stay. Estimated length of stay (# of days): 1 Documented By: Nabil Baker MD 01/03/23 1824 Signed By: <Electronically signed by Nabil Baker MD> 01/04/23 0258 [facility] Work Phone: Histseo general Narrative - Reported* Type Description Date Medical History HTN Medical History diverticulitis Medical History Anxiety Surgical History Collarbone tumor removed Surgical History Knee surgery X2 Surgical History Breast Reduction Hospitalization History See Above Hospitalization History Pneumonia Hospitalization History Diverticulitis Hospitalization History Paralegic Migraines [facility] Other Hisvsvv general Narrative - Reported* Type Description Date Medical History HTN Medical History diverticulitis Medical History Anxiety Medical History GERD Medical History Kidney stones Medical History Migraine headache Medical History Stroke 2010 Surgical History Collarbone tumor removed Surgical History Knee surgery X2 Surgical History Breast Reduction Hospitalization History See Above Hospitalization History Pneumonia Hospitalization History Diverticulitis Hospitalization History Paralegic Migraines [facility] [employer] Other History general Narrative - Reported* Type Description Date Medical History HTN Medical History diverticulitis Medical History Anxiety Medical History GERD Medical History Kidney stones Medical History Migraine headache Medical History Stroke 2009 Surgical History Collarbone tumor removed Surgical History Knee surgery X2 Surgical History Breast Reduction Hospitalization History See Above Hospitalization History Pneumonia Hospitalization History Diverticulitis Hospitalization History Paralegic Migraines Hospitalization History [facility] Chest pain 3 [facility] Other Hospital Discharge instructions No data available for this section [facility] [place] Progress note No data available for this section [facility] [place] Reason for referral (narrative)* Consultation (Routine) - Authorized Specialty Diagnoses / Procedures Referred By Frederick murillo Referred To Contact Cardiology Diagnoses Precordial pain Essential hypertension, benign Procedures Follow Up In Cardiology Anneliese Garcia MD [address] [place] [address], [address] [address] Anneliese Garcia MD [address] [place] [address], [address] [address] Referral ID Status Reason Start Date Expiration Date V isits Requested Visits Authorized [id number] Authorized 03/24/2023 03/23/2024 1 1 [facility] Work Phone: Reason for referral (narrative)No reason for referral [facility]: Reason for visit Narrative* Consultation (Routine) - Closed Specialty Diagnoses / Procedures Referred By Frederick murillo Referred To Contact Podiatry Diagnoses Pain in left foot Procedures [place] OFFICE/OUTPATIENT NEW LOW MDM 30 MINUTES Cecilio Dumont MD [address] [place] [address] Phone: tel: fax: Joseph Cobian DPM [address] [address] Phone: tel: fax: Referral ID Status Reason Start Date Expiration Date Visits Re quested Visits Authorized [id number] Closed 10/22/2024 01/20/2025 1 1 [facility] Summary Purpose Family History Unknown Family Member Name Dates Details Family history of myocardial infarction: Brother(V17.3, Z82.49) Status:Active Relationship Condition Age at Onset Recorded Date/T nazanin brother Myocardial infarction Unknown father History of blood clots Unknown Leukemia Unknown Unknown Family Member Name Dates Details Family history of myocardial infarction: Brother(V17.3, Z82.49) Status:Active Unknown Family Member Name Dates Details Family history of myocardial infarction: Brother(V17.3, Z82.49) Status:Active Advance Directives Advance Directive Response Recorded Date/ Time Advance Directives No February 14, 2017 2:16pm Advance Directive Response Recorded Date/ Time Advance Directives No February 14, 2017 1:16pm Chief Complaint and Reason for Visit Chief Complaint Admit Date 3 month September 11, 2024 8:1 0am [id number] September 27, 2024 2:47p m M79.672 October 16, 2024 8:05a m Reason for Visit Admit Date Arthritis September 11, 2024 8:1 0am GERD (gastroesophageal reflux disease) A pril 2024 8:10am Obesity, Class I, BMI 30-34.9 August 8:10am Prediabetes September 11, 2024 8:1 0am Stroke September 11, 2024 8:1 0am Encounter for weight management September 112024 8:10am Chief Complaint Chest Pain eposure antigen Pillars Chief Complaint [id number] r55 Chief Complaint r55 Pillars Chief Complaint Pillars obesity chest pain Chief Complaint Pillars obesity chest pain Reason for Visit Chest pain Hypertension Chief Complaint [employer] follow up Reason for Visit Arthritis GERD (gastroesophageal reflux disease) Obesity, Class I, BMI 30-34.9 Prediabetes Stroke Encounter for weight management Arthritis GERD (gastroesophageal reflux disease) Obesity, Class I, BMI 30-34.9 Prediabetes Stroke Encounter for weight management Reason for Visit Arthritis GERD (gastroesophageal reflux disease) Obesity, Class I, BMI 30-34.9 Prediabetes Stroke Encounter for weight management Reason for Visit Arthritis GERD (gastroesophageal reflux disease) Obesity, Class I, BMI 30-34.9 Prediabetes Stroke Encounter for weight management Arthritis GERD (gastroesophageal reflux disease) Obesity, Class I, BMI 30-34.9 Prediabetes Stroke Encounter for weight management Chief Complaint pillars Reason for Visit Arthritis GERD (gastroesophageal reflux disease) Obesity, Class I, BMI 30-34.9 Prediabetes Stroke Encounter for weight management Arthritis GERD (gastroesophageal reflux disease) Obesity, Class I, BMI 30-34.9 Prediabetes Stroke Encounter for weight management Reason for Visit Admit Date Arthritis June 12, 2024 8 :06am GERD (gastroesophageal reflux disease) J anuary 2024 8:06am Obesity, Class I, BMI 30-34.9 June 122024 8:06am Prediabetes June 12, 2024 8 :06am Stroke June 12, 2024 8 :06am Encounter for weight management June 12, 2024 8:06am Chief Complaint Admit Date 3 month September 11, 2024 8:1 0am Chief Complaint Admit Date 3 month September 11, 2024 8:1 0am M79.672 September 27, 2024 2:47p m M79.672 October 16, 2024 8:05a m R10.13 November 21, 2024 7:44 am Chief Complaint Admit Date 3 month September 11, 2024 8:1 0am M79.672 September 27, 2024 2:47p m M79.672 October 16, 2024 8:05a m R10.13 November 21, 2024 7:44 am R10.13 R10.12 November 23, 2024 8:50 am Chief Complaint Admit Date 3 month September 11, 2024 8:1 0am M79.672 September 27, 2024 2:47p m M79.672 October 16, 2024 8:05a m R10.13 November 21, 2024 7:44 am R10.13 R10.12 November 23, 2024 8:50 am N39.0 December 03, 2024 12:0 6pm Chief Complaint Admit Date M79.672 September 27, 2024 2:47p m M79.672 October 16, 2024 8:05a m R10.13 November 21, 2024 7:44 am R10.13 R10.12 November 23, 2024 8:50 am N39.0 December 03, 2024 12:0 6pm pillars December 20, 2024 7:0 6am N39.0 December 20, 2024 7:0 7am Chief Complaint Admit Date M79.67September 27, 2024 2:47p m M79.672 October 16, 2024 8:05a m R10.13 November 21, 2024 7:44 am R10.13 R10.12 November 23, 2024 8:50 am N39.0 December 03, 2024 12:0 6pm pillars December 20, 2024 7:0 6am N39.0 December 20, 2024 7:0 7am N39.0 December 24, 2024 2: 38pm Additional Source Comments INFORMATION SOURCE (unrecogn ized section and content) DATE CREATED AUTHOR 10/23/2021 [employer] DATE CREATED AUTHOR AUTHOR'S ORGANIZ ATION 08/20/2022 [facility] DATE CREATED AUTHOR AUTHOR'S ORGANIZ ATION 01/07/2023 [facility] DATE CREATED AUTHOR AUTHOR'S ORGANIZ ATION 03/19/[address] [facility] DATE CREATED AUTHOR AUTHOR'S ORGANIZ ATION 03/24/2024 [facility] DATE CREATED AUTHOR AUTHOR'S ORGANIZ ATION 11/24/2024 [facility] EPIC DATE CREATED AUTHOR AUTHOR'S ORGANIZ ATION 12/05/2024 [facility] Center DATE CREATED AUTHOR AUTHOR'S ORGANIZ ATION 12/22/2024 [facility] REASON FOR VISIT (unrecogniz ed section and content) Reason Comments Hospital Follow-up Reason Comments Annual Exam Specialty Diagnoses / Procedures Referred By Contac t Referred To Contact Cardiology Diagnoses Precordial pain Essential hypertension, benign Procedures Follow Up In Cardiology Anneliese Garcia MD [address] [facility] [address], [address] [address] Phone: tel: fax: Anneliese Garcia MD [facility] [facility], [address] [address] Phone: tel: fax: Referral ID Status Reason Start Date Expiration Date V isits Requested Visits Authorized [id number] Authorized 03/24/2023 03/23/2024 1 1 Reason Comments Follow-up LT EDL Care Teams (unrecognized sec tion and content) Team Status: Active Member Role Status Sy Dumont MD Primary Care Provider Active Team Status: Inactive Member Role Status Sy Dumont MD Primary Care Provider Active Erika Escobedo MD Emergency Provider Active Jacki Harper MD RES Active Nabil Baker MD Admit Provider, Attending Provider Active Anneliese Garcia MD Other Provider Active Team Status: Inactive Member Role Status Sy Dumont MD Primary Care Provider Active Renny Walton DO [facility] Attending Provider Active Team Status: Active Member Role Status Sy Dumont MD Primary Care Provider Active Isabel Kent APRN Attending Provider Active Team Status: Active Member Role Status Sy Dumont MD Primary Care Provider Active Erika Escobedo MD Emergency Provider Active Jacki Harper MD RES Active Nabil Baker MD Admit Provider, Attending Provider Active Team Status: Inactive Member Role Status Sy Dumont MD Primary Care Provider Active Anneliese Garcia MD Attending Provider, Referring Provider Active Team Status: Inactive Member Role Status Sy Dumont MD Primary Care Provider Active MARIA T Frank Attending Provider Active Team Status: Inactive Member Role Status Sy Dumont MD Primary Care Provider, Attending Pr ovider Active Environmental Journalist Relationship Specialty Start Date End Date Cecilio Dumont MD [address] [facility] [place] [address] PCP - General 05/15/99 Team Status: Inactive Member Role Status Sy Dumont MD Primary Care Provider Active Start: July 12, 2023 End: July 12, 2023 Isabel Kent APRN Attending Provider Active Start: July 12, 2023 End: July 12, 2023 Team Status: Inactive Member Role Status Dates Cecilio Dumont MD Primary Care Provider Active Start: September 06, 2023 End: September 06, 2023 Isabel Kent APRN Attending Provider Active Start: September 06, 2023 End: September 06, 2023 Team Status: Inactive Member Role Status Dates Cecilio Dumont MD Primary Care Provider Active Start: October 27, 2023 End: October 27, 2023 Isabel Kent APRN Attending Provider Active Start: October 27, 2023 End: October 27, 2023 Team Status: Inactive Member Role Status Dates Cecilio Dumont MD Primary Care Provider Active Start: November 13, 2023 End: November 13, 2023 Renny ALVARADO DO [facility] Attending Provider Active Start: November 13, 2023 End: November 13, 2023 Team Status: Inactive Member Role Status Dates Cecilio Dumont MD Primary Care Provider Active Start: December 20, 2023 End: December 20, 2023 Isabel Kent APRN Attending Provider Active Start: December 20, 2023 End: December 20, 2023 Team Status: Active Member Role Status Dates Cecilio Dumont MD Primary Care Provider Active Start: January 19, 2024 End: January 20, 2024 Piotr Emanuel DO Attending Provider Active Sta rt: January 19, 2024 End: January 20, 2024 Team Status: Inactive Member Role Status Dates Cecilio Dumont MD Primary Care Provider Active Start: February 14, 2024 End: February 14, 2024 Isabel Kent APRN Attending Provider Active Start: February 14, 2024 End: February 14, 2024 Environmental Journalist Relationship Specialty Start Date End Date Cecilio Dumont MD [address] [facility] [place] [address] PCP - General 05/15/99 Team Status: Inactive Member Role Status Sy Dumont MD Primary Care Provider Active Start: June 12, 2024 End: June 12, 2024 Isabel Kent APRN Attending Provider Active Start: June 12, 2024 End: June 12, 2024 Team Status: Inactive Member Role Status Dates Cecilio Dumont MD Primary Care Provider Active Start: September 11, 2024 End: September 11, 2024 Isabel Kent APRN Attending Provider Active Start: September 11, 2024 End: September 11, 2024 Team Status: Inactive Member Role Status Dates Cecilio Dumont MD Primary Care Provide r, Attending Provider Active Start: September 27, 2024 End: September 27, 2024 Team Status: Inactive Member Role Status Dates Cecilio Dumont MD Primary Care Provide r, Attending Provider Active Start: October 16, 2024 End: October 16, 2024 Environmental Journalist Relationship Specialty Start Date End Date Cecilio Dumont MD [address] [place] [address] PCP - General Family Medicine 11/06/24 Environmental Journalist Relationship Specialty Start Date End Date Cecilio Dumont MD [address] [place] [address] PCP - General Family Medicine 11/06/24 Environmental Journalist Relationship Specialty Start Date End Date Cecilio Dumont MD [address] [place] [address] PCP - General Family Medicine 11/06/24 Team Status: Inactive Member Role Status Sy Dumont MD Primary Care Provider Active Start: September 27, 2024 End: September 27, 2024 Cecilio Dumont MD Attending Provider Active Sta rt: September 27, 2024 End: September 27, 2024 Team Status: Inactive Member Role Status Sy Dumont MD Primary Care Provider Active Start: October 16, 2024 End: October 16, 2024 Cecilio Dumont MD Attending Provider Active Sta rt: October 16, 2024 End: October 16, 2024 Team Status: Inactive Member Role Status Sy Dumont MD Primary Care Provider Active Start: November 21, 2024 End: November 21, 2024 Cecilio Dumont MD Attending Provider Active Sta rt: November 21, 2024 End: November 21, 2024 Team Status: Inactive Member Role Status Sy Dumont MD Primary Care Provider Active Start: November 23, 2024 End: November 23, 2024 Cecilio Dumont MD Attending Provider Active Sta rt: November 23, 2024 End: November 23, 2024 Team Status: Inactive Member Role Status Sy Dumont MD Primary Care Provider Active Start: December 03, 2024 End: December 03, 2024 Cecilio Dumont MD Attending Provider Active Sta rt: December 03, 2024 End: December 03, 2024 Team Status: Inactive Member Role Status Sy Dumont MD Primary Care Provider Active Start: December 20, 2024 End: December 20, 2024 Renny Cuello [facility] DO [facility] Attending Provider Active Start: December 20, 2024 End: December 20, 2024 Team Status: Inactive Member Role Status Sy Dumont MD Primary Care Provider Active Start: December 20, 2024 End: December 20, 2024 Cecilio Dumont MD Attending Provider Active Sta rt: December 20, 2024 End: December 20, 2024 Team Status: Inactive Member Role Status Sy Dumont MD Primary Care Provider Active Start: December 24, 2024 End: December 24, 2024 Cecilio Dumont MD Attending Provider Active Sta rt: December 24, 2024 End: December 24, 2024 Goals (unrecognized section and content) Goals may be documented in a n alternate section FOR RECORDS PERTAINING TO PATIENTS WHO ARE OR HAVE BEEN ENROLLED IN A CHEMICAL DEPENDENCY/SUBSTANCEABUSE PROGRAM, SOME INFORMATION MAY BE OMITTED. This clinical summary was aggregated from multiple sources. Caution should be exercised in using it in the provision of clinical care. This summary normalizes information from multiple sources, and as a consequence, information in this document may materially change the coding, format and clinical context of patient data. In addition, data may be omitted in some cases. CLINICAL DECISIONS SHOULD BE BASED ON THE PRIMARY CLINICAL RECORDS. [facility] [employer] [facility]. provides no warranty or guarantee of the accuracy or completeness of information in this document.
--- NOTE | 2024-12-25 07:17 | CT_ITS ---
The [address] [address] Patient Name: AMANDA NORRIS MRN: [id number] date: 1960 Sex: F Assigned Patient Location: CT Current Patient Location: CT Accession/Order Number: [id number] Exam Date: 12/25/2024 12:39 Report Date: 12/25/2024 12:42 At the request of: ANNA IVERSON MD Procedure: CT abdomen pelvis w con CT ABDOMEN AND PELVIS WITH INTRAVENOUS CONTRAST: CLINICAL HISTORY: Left Upper Quadrant Pain, Nausea, Abdominal Distention COMPARISON: CT abdomen and pelvis 01/18/2024 TECHNIQUE: Spiral images were obtained through the abdomen and pelvis following the administration of intravenous contrast. This CT exam was performed using one or more following dose reduction techniques: Automated exposure control, adjustment of the mA and/or kV according to patient size, or use of iterative reconstruction technique. FINDINGS: Lung Bases: [No acute findings.] Organs:Liver gallbladder portal vein pancreas spleen and adrenal glands all appear unremarkable. Small cyst right kidney. Left kidney appears unremarkable. Aorta appears normal in caliber.[ GI: Tiny hiatal hernia. Distal stomach is grossly unremarkable. Small bowel appears nondilated. Colonic diverticulosis. Appendix is normal.[ Pelvis:[Urinary bladder and uterus appear unremarkable. No adnexal mass.] Peritoneum/Retroperitoneum:No free air or free fluid or lymphadenopathy.[ Abd wall/Bones:Abdominal wall demonstrate no acute findings. Osseous structures demonstrate degenerative change.[ CT/CT abdomen pelvis w con IMPRESSION: No acute findings. Tiny hiatal hernia. Colonic diverticulosis. Impression dictated by: Will Voss Jr., D.O. 12/25/2024 12:42 PM Dictation Location: [employer] Electronically authenticated by: [id number] Y Date: 12/25/2024 12:42
== END 2024-12-25 07:08 | disposition home or self-care (01) ==
LOC: CT 07:09
PROVIDERS: PCP Family Medicine; Visit Provider Surgery
DX: R10.12 Left upper quadrant pain (principal); R10.9 Unspecified abdominal pain; R11.0 Nausea; R14.0 Abdominal distension (gaseous); R19.7 Diarrhea, unspecified; R93.5 Abnormal findings on diagnostic imaging of other abdominal regions, including retroperitoneum; K57.90 Diverticulosis of intestine, part unspecified, without perforation or abscess without bleeding
CPT/HCPCS: 74177; Q9967

== ENCOUNTER 2024-12-29 20:54 | Inpatient (IN) | payer OTHER, SELFPAY ==
--- OUTSIDE RECORDS SUMMARY | 2024-12-05 06:13 | XMS_ITS ---
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 Name Role Phone Les Dumont Primary Care Provider REASON FOR VISIT urine cx Encounters Encounter Location Date Provider Diagnosis [facility] [address] [place] [address] 12/05/2024 Les Dumont UTI (urinary tract infection) N39.0 Assessments Encounter Date Diagnosis (ICD Code) Assessment Notes Treatment Notes Treatment Clinical Notes Section Notes 12/05/2024 UTI (urinary tract infection) (ICD-10 - N39.0) Plan Of Treatment Pending Test Test Name Order Date UA (URINALYSIS, COMPLETE) 12/05/2024 CULTURE URINE 12/05/2024 Progress Notes * JRDidier CAMILOsohail ADOB: 3 (64 yo F)Acc No.[id number]:12/05/2024 Patient: Nancy LYN :1960 A ge:64 Y S ex:Female Address:[address] [place] [address], [id number] Subjective: * Chief Complaints: * U rine cx * Medical History: * Surgical History: * Hospitalization/Major Diagno stic Procedure: * Medications: Objective: * Vitals: * Physical Examination: Assessment: * Assessment: 1. U TI (urinary tract infection) - N39.0 (Primary) Plan: * Treatment: * Procedure Codes: * true * Date: Generated for Printi ng/Renard/Saad on: 0 12/29/2024 08:59 PM EDT
--- OUTSIDE RECORDS SUMMARY | 2024-12-23 16:15 | XMS_ITS ---
Author Organization [facility] in [place] Address [address] [place] [address] Care Team Providers Care Electrophysiology Scientist Name Role Phone Les Dumont Primary Care Provider [phone] REASON FOR VISIT urine results- Encounters Encounter Location Date Provider Diagnosis [facility] [address] [place] [address] 12/23/2024 Les Dumont UTI (urinary tract infection) N39.0 Assessments Encounter Date Diagnosis (ICD Code) Assessment Notes Treatment Notes Treatment Clinical Notes Section Notes 12/23/2024 UTI (urinary tract infection) (ICD-10 - N39.0) Plan Of Treatment Pending Test Test Name Order Date UA (URINALYSIS, COMPLETE) 12/23/2024 CULTURE URINE 12/23/2024 URINE MICROSCOPIC ONLY 12/23/2024 Progress Notes * Nancy NORRIS ADOB: 3 (64 yo F)Acc No.[id number]:12/23/2024 Patient: Nancy LYN :1960 A ge:64 Y S ex:Female Address:[address] [place] [address], [phone] Subjective: * Chief Complaints: * U rine results- * Medical History: * Surgical History: * Hospitalization/Major Diagno stic Procedure: * Medications: Objective: * Vitals: * Physical Examination: Assessment: * Assessment: 1. U TI (urinary tract infection) - N39.0 (Primary) Plan: * Treatment: * Procedure Codes: * true * Date: Generated for Antionette gutierrez/Renard/Saad on: 0 12/29/2024 08:59 PM EDT
--- OUTSIDE RECORDS SUMMARY | 2024-12-27 07:23 | XMS_ITS ---
Author Organization [facility] in [place] Address [address] [place] [address] Care Team Providers Care Organ Teacher Name Role Phone Les Dumont Primary Care Provider [phone] REASON FOR VISIT Urine- Medications Medication SIG (Take, Route, Frequency, Duration) Notes Start Date End Date Status Pantoprazole Sodium 40 MG 1 tablet Orall y Once a day for 30 days Active Encounters Encounter Location Date Provider Diagnosis [facility] [address] [place] [address] 12/27/2024 Les Dumont Hypertension I10 and Dysuria R30.0 Assessments Encounter Date Diagnosis (ICD Code) Assessment Notes Treatment Notes Treatment Clinical Notes Section Notes 12/27/2024 Hypertension (ICD-10 - I10) 12/27/2024 Dysuria (ICD-10 - R30.0) Plan Of Treatment Medication Medication Name Sig Start Date Stop Date Notes Pantoprazole Sodium 40 MG 1 tablet Orall y Once a day for 30 days Pending Test Test Name Order Date UA (URINALYSIS, COMPLETE) 12/27/2024 UA (URINALYSIS, MICRO ONLY) 12/27/2024 CULTURE URINE 12/27/2024 US KIDNEYS BLADDER 12/27/2024 Progress Notes * Nancy NORRIS ADOB: 3 (64 yo F)Acc No.[id number]:12/27/2024 Patient: Bob LYNvelma Natalie :1960 A ge:64 Y S ex:Female Address:[address] [place] [address], [place] [address] * Refills Refill Pantoprazole Sodium Tablet Delayed Release, 40 MG, Orally, 30 Tablet, 1 tablet, Once a day, 30 days, Refills=11 Subjective: * Chief Complaints: * U rine- * Medical History: * Surgical History: * Hospitalization/Major Diagno stic Procedure: * Medications: Objective: * Vitals: * Physical Examination: Assessment: * Assessment: 1. H ypertension - I10 2 . D ysuria - R30.0 Plan: * Treatment: 2. D ysuria L AB: UA (URINALYSIS, COMPLETE) L AB: UA (URINALYSIS, MICRO ONLY) L AB: CULTURE URINE I maging: US KIDNEYS BLADDER * Procedure Codes: * true * Date: Generated for Antionette gutierrez/Renard/Sarahitting on: 0 12/29/2024 08:59 PM EDT
[2024-12-29] VITALS (20 sets, daily range): BP systolic 139–173; BP diastolic 54–85; PULSE 67–85; TEMP 37.4; O2SAT 92–98; BMI 33.7
--- OUTSIDE RECORDS SUMMARY | 2024-12-29 20:59 | XMS_ITS | Encounter Summary ---
Author Organization [facility] Address [address] [place] [address] Phone Care Team Providers Care Livestock Handler Name Role Phone Rafael Dumont MD Primary Care Provider [phone] Encounter Details Date Type Department Care Team (Late st Contact Info) Description 12/16/2021 Orders Only [email or web address] LEGACY [address] [place] [address] Conversion, Onbase Social History Tobacco Use Types Packs/Day Years Used Date Smoking Tobacco: Never Assessed Comments Unknown Sex and Gender Information Value Date Recorded Sex Assigned at Not on file Legal Sex Female 9:36 AM EST Gender Identity Not on file Sexual Orientation Not on file documented as of this encounter Plan of Treatment Scheduled Orders Name Type Priority Associated Diagnoses Orde r Schedule OUTSIDE LAB SCAN Lab Ordered: 12/16/2021 documented as of this encounter Visit Diagnoses Not on filedocumented in this encounter Care Teams Livestock Handler Relationship Specialty Start Date End Date Rafael Dumont MD [address] [place] [id number] PCP - General 05/15/99 documented as of this encounter
--- OUTSIDE RECORDS SUMMARY | 2024-12-29 20:59 | XMS_ITS | Encounter Summary ---
Author Organization [facility] Address [address] [place] [phone] Phone Care Team Providers Care Conditioner Tumbler Operator Name Role Phone Rafael Dumont MD Primary Care Provider [phone] Encounter Details Date Type Department Care Team (Late st Contact Info) Description 01/03/2023 Scanned Document [facility] [address] [place] [id number] Scanning, Generic Provider Social History Tobacco Use [...] on filedocumented in this encounter Care Teams Conditioner Tumbler Operator Relationship Specialty Start Date End Date Rafael Dumont MD [address] [place] [phone] PCP - General 05/15/99 documented as of this encounter
--- OUTSIDE RECORDS SUMMARY | 2024-12-29 20:59 | XMS_ITS | Encounter Summary ---
Author Organization [facility] Address [address] [place] [address] Phone Care Team Providers Care Fur Cutter Name Role Phone Rafael Dumont MD Primary Care Provider [phone] Encounter Details Date Type Department Care Team (Late st Contact Info) Description 09/27/2021 Orders Only [facility] LEGACY [address] [place] [address] Conversion, Onbase Social History Tobacco Use Types [...] r Schedule OUTSIDE LAB SCAN Lab Ordered: 09/27/2021 documented as of this encounter Visit Diagnoses Not on filedocumented in this encounter Care Teams Fur Cutter Relationship Specialty Start Date End Date Rafael Dumont MD [address] [place] [phone] PCP - General 05/15/99 documented as of this encounter
--- OUTSIDE RECORDS SUMMARY | 2024-12-29 20:59 | XMS_ITS | Encounter Summary ---
Author Organization [facility] Address [address] [place] [phone] Phone Care Team Providers Care Paint Spray Tender Name Role Phone Rafael Dumont MD Primary Care Provider [phone] Encounter Details Date Type Department Care Team (Late st Contact Info) Description 02/13/2023 Scanned Document [facility] [address] [place] [phone] Scanning, Generic Provider Social History Tobacco Use [...] Date/Time Associated Diagnosis Comments OUTSIDE CARDIOLOGY SCAN 02/13/2023 documented in this encounter Results * OUTSIDE CARDIOLOGY SCAN (02/13/2023) Narrative 02/13/2023 Ordered by an unspecified provider. us Generic Provider Scanning OUTSIDE SCAN Final Result documented in this encounter Visit Diagnoses Not on filedocumented in this encounter Care Teams Paint Spray Tender Relationship Specialty Start Date End Date Rafael Dumont MD [address] [place] [address] PCP - General 05/15/99 documented as of this encounter
--- OUTSIDE RECORDS SUMMARY | 2024-12-29 20:59 | XMS_ITS | Encounter Summary ---
Author Organization [facility] Address [address] [place] [address] Phone Care Team Providers Care Fuel Tank Sealer And Tester Name Role Phone Rafael Dumont MD Primary Care Provider [phone] Encounter Details Date Type Department Care Team (Late st Contact Info) Description 09/30/2021 Orders Only [facility] LEGACY [address] [place] [address] Conversion, Onbase Social History Tobacco Use Types [...] r Schedule OUTSIDE LAB SCAN Lab Ordered: 09/30/2021 OUTSIDE LAB SCAN Lab Ordered: 09/30/2021 OUTSIDE LAB SCAN Lab Ordered: 09/30/2021 documented as of this encounter Visit Diagnoses Not on filedocumented in this encounter Care Teams Fuel Tank Sealer And Tester Relationship Specialty Start Date End Date Rafael Dumont MD [address] [facility] [address] [place] [phone] PCP - General 05/15/99 documented as of this encounter
--- OUTSIDE RECORDS SUMMARY | 2024-12-29 20:59 | XMS_ITS | Encounter Summary ---
Author Organization [facility] Address [address] [place] [phone] Phone Care Team Providers Care Machine Hose Cutter Name Role Phone Rafael Dumont MD Primary Care Provider + [phone] Encounter Details Date Type Department Care Team (Late st Contact Info) Description 01/04/2023 Scanned Document [facility] [address] [place] [phone] Scanning, Generic Provider Social History Tobacco Use [...] on filedocumented in this encounter Care Teams Machine Hose Cutter Relationship Specialty Start Date End Date Rafael Dumont MD [address] [place] [id number] PCP - General 05/15/99 documented as of this encounter
--- OUTSIDE RECORDS SUMMARY | 2024-12-29 20:59 | XMS_ITS | Clinical Summary ---
Author Organization [facility] Address [address] [place] [address] Phone Care Team Providers Care Silk Screen Etcher Name Role Phone Rafael Dumont MD Primary Care Provider [phone] Allergies Active Allergy Reactions Criticality Noted Date Comments Cefuroxime Axetil Rash Low 06/17/2008 Erythromycin Unknown 06/17/2008 Morphine Hives,Itching,Rash Low 03/13/2023 Other Hives,Itching,Fever 03/13/2023 Penicillins Rash Low 06/17/2008 Topiramate Diarrhea 03/14/2023 Medications aspirin 81 mg EC tablet Take 1 tablet (81 mg) by mouth once daily. Active carvedilol (Coreg) 12.5 mg tablet Take 1 tablet (12.5 mg) by mouth 2 times daily (morning and late afternoon). Active hydroCHLOROthia zide (Microzide) 12.5 mg capsule Take 1 capsule (12.5 mg) by mouth once daily. Active ibuprofen 800 mg tablet Take 1 tablet (800 mg) by mouth every 8 hours if needed. 09/12/2022 Active lisinopril 40 mg tablet Take 1 tablet (40 mg) by mouth once daily. Active pantoprazole (ProtoNix) 40 mg EC tablet Take 1 tablet (40 mg) by mouth once daily. 12/15/2022 Active Ozempic 1 mg/dose (4 mg/3 mL) pen injector every 7 days. Active Active Problems Problem Noted Date Diagnosed Date Never smoked tobacco 03/22/2024 Precordial pain 03/24/2023 BMI 32.0-32.9,adult 03/24/2023 Diverticulosis 03/13/2023 Essential hypertension, benign 03/13/2023 Resolved Problems Problem Noted Date Diagnosed Date Resolved Date Encounter to discuss test results 03/24/2023 03/22/2024 Immunizations Immunization Administration Dates Next Due Flu vaccine (IIV4), preservative free *Check age /dose* 02/27/2023,01/14/2020 Novel [id number], preservative-free 04/22 Family History Medical History Relation Name Comments Heart attack Brother Relation Name Status Comments Brother Social History Tobacco Use Types Packs/Day Years Used Date Smoking Tobacco: Never Smokeless Tobacco: Never Alcohol Use Standard Drinks/Week Comments Never 0 (1 standard drink = 0.6 oz pur e alcohol) Comments Unknown Sex and Gender Information Value Date Recorded Sex Assigned at Not on file Legal Sex Female 9:36 AM EST Gender Identity Not on file Sexual Orientation Not on file Last Filed Vital Signs Vital Sign Reading Time Taken Comments Blood Pressure 120/84 03/22/2024 8:52 AM EST Pulse 68 03/22/2024 8:52 AM EST Temperature - - Respiratory Rate 16 03/14/2023 12:10 PM EDT Oxygen Saturation 98% 03/14/2023 12:10 PM EDT Inhaled Oxygen Concentration - - Weight 93.4 kg (206 lb) 03/22/2024 8:52 AM EST Height 170.2 cm (5' 7 ) 03/22/2024 8:52 AM EST Body Mass Index 32.26 03/22/2024 8:52 AM EST Plan of Treatment Health Maintenance Due Date Last Done Comments CT Colonography 1960 Colonoscopy 1960 Colorectal Cancer Screening 1960 FIT-DNA (Cologuard) 1960 FIT 1960 HIV Screening 1960 Lipid Panel 1960 Sigmoidoscopy 1960 Yearly Adult Physical 1960 Diabetes Screening 1980 Hepatitis C Screening 1980 Cervical Cancer Screening 1983 HPV/Cotest 1983 Pap Smear 1983 DTaP/Tdap/Td Vaccines (1 - Tdap) 1984 MMR Vaccines (1 of 1 - Standard series) 05/20/2009 Pneumococcal Vaccine (1 of 1 - PCV) 2012 Zoster Vaccines (1 of 2) 2012 Mammogram 12/01/2021 12/01/2020, 11/13, 11/19/2020 RSV High Risk: (Elderly (60+) or Population) (1 - Risk 60-74 years 1-dose series) 2022 COVID-19 Vaccine ( season) 2024 05/04/2021, 06/16/2020, 05/19/2020 Influenza Vaccine (#1) 2025 , 02/27/2023, 01/14/2020, Additional history exists HIB Vaccines Aged Out No longer eligi ble based on patient's age to complete this topic HPV Vaccines Aged Out No longer eligi ble based on patient's age to complete this topic Hepatitis A Vaccines Aged Out No long er eligible based on patient's age to complete this topic Hepatitis B Vaccines Aged Out No long er eligible based on patient's age to complete this topic IPV Vaccines Aged Out No longer eligi ble based on patient's age to complete this topic Meningococcal Vaccine Aged Out No eliezer kathrine eligible based on patient's age to complete this topic Rotavirus Vaccines Aged Out No longer eligible based on patient's age to complete this topic Insurance MED Care Teams Silk Screen Etcher Relationship Specialty Start Date End Date Rafael Dumont MD [address] [place] [facility] [place] [address] PCP - General 05/15/99
--- OUTSIDE RECORDS SUMMARY | 2024-12-29 20:59 | XMS_ITS | Encounter Summary ---
Author Organization [facility] Address [address] [place] [address] Phone Care Team Providers Care Composer Teaching Artist Name Role Phone Rafael Dumont MD Primary Care Provider [phone] Encounter Details Date Type Department Care Team (Late st Contact Info) Description 01/09/2023 Scanned Document [facility] LEGACY [address] [place] [address] Conversion, Onbase Social History Tobacco Use Types [...] Name Priority Date/Time Associated Diagnosis Comments OUTSIDE GENERIC TESTING 01/09/2023 documented in this encounter Results * OUTSIDE GENERIC TESTING (01/09/2023) Anatomical Region Laterality Modality Other Narrative 01/09/2023 Ordered by an unspecified provider. us Onbase Conversion OUTSIDE SCAN Final Result documented in this encounter Visit Diagnoses Not on filedocumented in this encounter Care Teams Composer Teaching Artist Relationship Specialty Start Date End Date Rafael Dumont MD [address] [facility] [place] [phone] PCP - General 05/15/99 documented as of this encounter
--- OUTSIDE RECORDS SUMMARY | 2024-12-29 20:59 | XMS_ITS | Encounter Summary ---
Author Organization [facility] Address [address] [place] [phone] Phone Care Team Providers Care Transportation Job Titles Name Role Phone Rafael Dumont MD Primary Care Provider [phone] Encounter Details Date Type Department Care Team (Late st Contact Info) Description 11/13/2023 Scanned Document [facility] [address] [place] [phone] Scanning, Generic Provider Social History Tobacco Use [...] on filedocumented in this encounter Care Teams Transportation Job Titles Relationship Specialty Start Date End Date Rafael Dumont MD [address] [place] [phone] PCP - General 05/15/99 documented as of this encounter
--- OUTSIDE RECORDS SUMMARY | 2024-12-29 21:00 | XMS_ITS | Encounter Summary ---
Author Organization [facility] Address [address] [place] [address] Phone Care Team Providers Care Glaze Carrier Name Role Phone Rafael Dumont MD Primary Care Provider [phone] Encounter Details Date Type Department Care Team (Late st Contact Info) Description 03/14/2023 Scanned Document [facility] [address] [facility] [address] [place] [phone] Luan Garcia MD [address] [facility] [address] [place] [address] Social History Tobacco Use Types [...] on filedocumented in this encounter Care Teams Glaze Carrier Relationship Specialty Start Date End Date Rafael Dumont MD [address] [facility] [place] [address] PCP - General 05/15/99 documented as of this encounter
--- OUTSIDE RECORDS SUMMARY | 2024-12-29 21:00 | XMS_ITS | Clinical Summary ---
Author Organization [facility] Address [address] [place] [address] Care Team Providers Care Image Scientist Name Role Phone Rafael Dumont MD Primary Care Provider [phone] Active Allergy Reactions Criticality Noted Date [...] (1 - 1-dose 75+ series) 2037 Insurance [facility] PPO Member Subscriber Plan / Payer (Ef fective 2014-Present) Name:Amanda Hooper Relation to Subscriber:Self Name:Amanda Hooper Payer ID:Not on file Type:PPO Address: [place] [phone] Care Teams Image Scientist Relationship Specialty Start Date End Date Rafael Dumont MD PCP - General 06/12/08
--- OUTSIDE RECORDS SUMMARY | 2024-12-29 21:00 | XMS_ITS | Patient Health Record ---
Author Organization [facility] in [place] Address [address] [place] [address] Care Team Providers Care Outside Sales Consultant Name Role Phone Les Salamanca Primary Care [...] Range Notes CBC AUTO DIFF Reviewed date:01/21/2024 07:52:55 PM Interpretation: Performing Lab: Notes/Report: [facility] , White Blood Count 15.8 4.0-11.0 [...] 3/uL Performing Lab: see note ML - [facility] LB LACTATE or LACTIC ACID Reviewed date:01/21/2024 07:52:55 PM Interpretation: Performing Lab: Notes/Report: [facility] , Lactate/Lactic Acid 0.5 0.4-2.0 mmol/L Performing Lab: see note ML - [facility] LB LIPASE Reviewed date:01/21/2024 07:52:55 PM Interpretation: Performing Lab: Notes/Report: [facility] , Lipase 51.0 16.0-77.0 U/L Performing Lab: see note - [facility] LB PROF 14(COMP METB) Reviewed date:01/21/2024 07:52:55 PM Interpretation: Performing Lab: Notes/Report: [facility] , Sodium 141 136-145 mmol/L Potassium [...] 0.7 Performing Lab: see note ML - [facility] LB UA (CLEAN or CATCH) TENNIS DESK TEAM MEMBER or M ICRO IF IND. Reviewed date:01/21/2024 07:52:55 PM Interpretation: Performing Lab: Notes/Report: [facility] , Color Urine YELLOW YELLOW Clarity Urine CLEAR CLEAR Specific Johnston Urine 1.025 1.005-1.025 pH Urine 5.5 5.0-9.0 Protein Urine TRACE NEG/TRACE mg/dL Glucose Urine UA NEGATIVE NEGATIVE mg/dL Bilirubin Urine NEGATIVE NEGATIVE Ketones Urine NEGATIVE NEGATIVE mg/dL Blood Urine MODERATE NEGATIVE Nitrite Urine NEGATIVE NEGATIVE Urobilinogen Urine 0.2 0.2-1.0 EU/dL Leukocyte Esterase Urine NEGATIVE NEGATIVE Urine Microscopic Indicated YES Performing Lab: see note ML - [facility] LB URINE MICROSCOPIC ONLY Reviewed date:01/21/2024 07:52:55 PM Interpretation: Performing Lab: Notes/Report: [facility] , WBC Urine 0-2 NONE SEEN #/HPF RBC Urine 0-2 0-2 #/HPF Bacteria Urine TRACE NONE SEEN #/HPF Mucus Urine TRACE NONE SEEN Squamous Epithelial Cell Urine FEW NONE/RARE #/LPF Crystals Seen? None Seen None Seen #/HPF Cast Seen? SEEN NONE SEEN #/LPF Hyaline Casts Urine FEW Urine Culture Indicated NO Performing Lab: see note ML - [facility] LB Troponin I High Sensitivity Reviewed date:01/21/2024 07:52:55 PM Interpretation: Performing Lab: Notes/Report: [facility] , Troponin I High Sensitivity <4.0 4.0-51.3 pg/mL CUT-OFF POINTS HAVE BEEN ESTABLISHED BASED ON THE FOURTH WITH OTHER DIAGNOSTIC AND CLINICAL INFORMATION. NOTE: HIGH-SENSITIVITY TROPONIN ASSAY IS NOT INTENDED TO BE UNIVERSAL DEFINITION OF MYOCARDIAL INFARCTION. THE UPPER PERCENTILE OF cTnI DISTRIBUTION IN A REFERENCE POPULATION, 99TH PERCENTILE = 51.4 PG/ML HAS BEEN CONFIRMED THE DECISION THRESHOLD FOR DE USED IN ISOLATION BUT SHOULD BE INTERPRETED IN CONJUNCTION DIAGNOSIS. REFERENCE LIMIT (URL) OF TROPONIN, DEFINED THE 99TH Performing Lab: see note ML - [facility] LB ECG 12 lead Reviewed date:01/21/2024 07:52:55 PM Interpretation: Performing Lab: Notes/Report: Source Facility: [place] [address] [place] [address] Electrocardiograph Report Signed Patient: NANCY NORRIS MR#: [id number] : 1960 Acct:[id number] Age/Sex: 63 / F ADM Date: 01/18/24 Loc: [place] 219-[address]: Cecilio Salamanca M.D. Ordering Physician: Bryce Ag Date of Service: 01/18/24 Procedure(s): ECG 12 lead Accession Number(s): [id number] cc: [facility] Test Date: 2024-01-18 Pat Name: NANCY NORRIS Department: Room: - Gender: Female Interpretive Naturalist: : 1960 Requested By: CECILIO SALAMANCA Order Number: [id number] Reading MD: PIOTR HOPKINS Measurements Intervals [place] Rate: 73 P: 40 ME: 182 QRS: 34 QRSD: 84 T: 34 QT: 392 QTc: 417 Interpretive Statements 1100 Sinus rhythm 3314 Cannot rule out anterolateral myocardial infarction, age undetermined 38342 Possible inferior myocardial infarction with posterior extension, age undetermined 8102 Low QRS voltage in chest leads 9150 abnormal ECG Electronically Signed On 01-19-2024 18:45:59 EDT by PIOTR HOPKINS Dictated By: Piotr Hopkins D.O. Signed By: 01/19/24 1846 DD/ 17 TD/TT: Lace Machine Operator: [place] [address] Electrocardiograph Report Signed Patient: MELISSA NORRIS MR#: [id number] : 1960 Acct:[id number] Age/Sex: 63 / F ADM Date: 01/18/24 Loc: MS 219-[address]: Ladan Salamanca M.D. Ordering Physician: Bryce Ag Date of Service: 01/18/24 Procedure(s): ECG 12 lead Accession Number(s): [id number] cc: [facility] Test Date: 2024-01-18 Pat Name: NANCY CAMILO Department: 19 Room: - Gender: Female Interpretive Naturalist: : 1960 Requ ested By: CECILIO SALAMANCA Order Number: [id number] Reading MD: PIOTR HOPKINS Measurements Intervals [place] Rate: 73 P: 40 ME: 182 QRS: 34 QRSD: 84 T: 34 QT: 392 QTc: 417 Interpretive Statements 1100 Sinus rhythm 3314 Cannot rule out anterolateral myocardial infarction, age undetermined 69185 Possible infer ior myocardial infarction with posterior extension, age undetermined 8102 Low QRS voltage in chest leads 9150 abnormal ECG Electronically Alem d On 01-19-2024 18:45:59 EDT by PIOTR HOPKINS Dictated By: Wood Hopkins D.OBelem Signed By: 01/19/241845 DD/ 17 TD/TT: Lace Machine Operator: CT abdomen pelvis w con Reviewed date:01/21/2024 07:52:55 PM Interpretation: Performing Lab: Notes/Report: Source Facility: [place] [address] CT Scan Report Signed Patient: NANCY NORRIS MR#: [id number] : 1960 Acct:[id number] Age/Sex: 63 / F ADM Date: 01/18/24 Loc: ER Attending Dr: Ordering Physician: Bryce Ag Date of Service: 01/18/24 Procedure(s): CT abdomen pelvis w con Accession Number(s): [id number] cc: Cecilio Salamanca M.D. [place] [address] Patient Name: NANCY NORRIS MRN: [id number] date: 1960 Sex: F Assigned Patient Location: ER Current Patient Location: ER Accession/Order Number: [id number] Exam Date: 01/18/2024 23:09 Report Date: 01/18/2024 [...] Alcala M.D. Signed By: 01/18/24 2335 DD/ 2332 TD/TT: Lace Machine Operator: [place] [address] CT Scan Report Signed Patient: MELISSA NORRIS MR#: [id number] : 1960 Acct:[id number] Age/Sex: 63 / F ADM Date: 01/18/24 Loc: ER Attending Dr: Ordering Physician: Bryce Ag Date of Service: 01/18/24 Procedure(s): CT abd omen pelvis w con Accession Number(s): [id number] cc: Cecilio Salamanca M.D. [address] [address] Patient Name: NANCY NORRIS MRN: [facility]:[id number] date: 1960 Sex: F Assigned Patient Loc ation: ER Current Patient Loca tion: ER Accession/Order Numb er: [id number] Exam Date: 01/18/2024 23:09 Report Date: 01/18/2024 [...] glands are normal bilaterally. Right kidney: The ki dney is normal in size. Small renal cysts are present. There is no renal ca lculus or hydronephrosis. Left kidney: The kid vera is normal in size. There is no [...] Dictated By: Glenn Alcala M.D. Signed By: 01/18/242334 DD/ 31 TD/TT: Lace Machine Operator: CBC AUTO DIFF Reviewed date:01/21/2024 07:52:54 PM Interpretation: Performing Lab: Notes/Report: [facility] , White Blood Count 8.1 4.0-11.0 [...] 10 3/uL Performing Lab: see note - [facility] PROF CHEM 8 (BAS METB) Reviewed date:01/21/2024 07:52:54 PM Interpretation: Performing Lab: Notes/Report: [facility] , Sodium 142 136-145 mmol/L Potassium 3.7 3.5-5.1 mmol/L Chloride 104 98-107 mmol/L Carbon Dioxide 26.7 21.0-32.0 mmol/L Anion Gap 15.0 Glucose 101 74-106 mg/dL Blood Urea Nitrogen 18.0 7.0-18.0 mg/dL Creatinine 0.62 0.55-1.02 mg/dL Estimated GFR ( Moon >60 >=60 Estimated GFR (Non- Shantelle >60 >=60 BUN Creatinine Ratio 29.0 Calcium 9.2 8.5-10.1 mg/dL Performing Lab: see note ML - [facility] CT abdomen pelvis w con Reviewed date:12/25/2024 12:49:47 PM Interpretation: Performing Lab: Notes/Report: Source Facility: [place] [address] CT Scan Report Signed Patient: NANCY NORRIS MR#: [id number] : 1960 Acct:[id number] Age/Sex: 64 / F ADM Date: 12/25/24 Loc: CT Attending Dr: Anna Breaux M.D. Ordering Physician: Anna Breaux M.D. Date of Service: 12/25/24 Procedure(s): CT abdomen pelvis w con Accession Number(s): [id number] cc: Cecilio Salamanca M.D. [place] [address] Patient Name: NANCY NORRIS MRN: [id number] date: 1960 Sex: F Assigned Patient Location: CT Current Patient Location: CT Accession/Order Number: [id number] Exam Date: 12/25/2024 12:39 Report Date: 12/25/2024 12:42 At the request of: ANNA BREAUX MD Procedure: CT abdomen pelvis w con CT ABDOMEN AND PELVIS WITH INTRAVENOUS CONTRAST: CLINICAL HISTORY: Left Upper Quadrant Pain, Nausea, Abdominal Distention COMPARISON: CT abdomen and pelvis 01/18/2024 TECHNIQUE: Spiral images were obtained through the abdomen and pelvis following the administration of intravenous contrast. This CT exam was performed using one or more following dose reduction techniques: Automated exposure control, adjustment of the mA and/or kV according to patient size, or use of iterative reconstruction technique. FINDINGS: Lung Bases: [No acute findings.] Organs:Liver gallbladder portal vein pancreas spleen and adrenal glands all appear unremarkable. Small cyst right kidney. Left kidney appears unremarkable. Aorta appears normal in caliber.[ GI: Tiny hiatal hernia. Distal stomach is grossly unremarkable. Small bowel appears nondilated. Colonic diverticulosis. Appendix is normal.[ Pelvis:[Urinary bladder and uterus appear unremarkable. No adnexal mass.] Peritoneum/Retroperitoneum:No free air or free fluid or lymphadenopathy.[ Abd wall/Bones:Abdominal wall demonstrate no acute findings. Osseous structures demonstrate degenerative change.[ CT/CT abdomen pelvis w con IMPRESSION: No acute findings. Tiny hiatal hernia. Colonic diverticulosis. Impression dictated by: Will Voss Jr., RaymondOBelem 12/25/2024 12:42 PM Dictation Location: [place] [address] Electronically authenticated by: [id number] Y Date: 12/25/2024 12:42 Dictated By: Will Voss M.D. Signed By: 12/25/24 1244 DD/ 1242 TD/TT: Lace Machine Operator: [place] [address] CT Scan Report Signed Patient: MELISSA NRORIS MR#: [id number] : 1960 Acct:[id number] Age/Sex: 64 / F ADM Date: 12/25/24 Loc: CT Attending Dr: Rubi Breaux M.D. Ordering Physician: Anna Breaux M.D. Date of Service: 12/25/24 Procedure(s): CT abd omen pelvis w con Accession Number(s): [id number] cc: Cecilio Salamanca M.D. [place] [address] Patient Name: NANCY NORRIS MRN: [facility]:[id number] date: 1960 Sex: F Assigned Patient Loc ation: CT Current Patient Loca tion: CT Accession/Order Numb er: [id number] Exam Date: 12/25/2024 12:39 Report Date: 12/25/2024 12:42 At the request of: ANNA BREAUX MD Procedure: CT abdome n pelvis w con CT ABDOMEN AND PELVI S WITH INTRAVENOUS CONTRAST: CLINICAL HISTORY: Le ft Upper Quadrant Pain, Nausea, Abdominal Distention COMPARISON: CT abdom en and pelvis 01/18/2024 TECHNIQUE: Spiral im ages were obtained through the abdomen and pelvis following the administration of intravenous contrast. This CT exam was performed using one or more following dose reduction techniques: Automated exposure control, adjustment of the mA and/or kV according to patient size, or use of iterative reconstruction technique. FINDINGS: Lung Bases: [No acut e findings.] Organs:Liver gallbla dder portal vein pancreas spleen and adrenal glands all appear unremarkable. Small cyst right kidney. Left kidney appears unremarkable. Aorta appears normal in caliber.[ GI: Tiny hiatal diony ia. Distal stomach is grossly unremarkable. Small bowel appears nondilated. Colonic diverticulosis. Appendix is normal.[ Pelvis:[Urinary blad molly and uterus appear unremarkable. No adnexal mass.] Peritoneum/Retroperi toneum :No free air or free fluid or lymphadenopathy.[ Abd wall/Bones:Abdom inal wall demonstrate no acute findings. Osseous structures demonstra te degenerative change.[ C T/CT abdomen pelvis w con IMPRESSION: No acute findings. Tiny hiatal hernia. Colonic diverticulosis. Impression dictated by: Will Voss Jr., D.OBelem 12/25/2024 12:42 PM Dictation Location: [facility] Electronically authenticated by: [id number] Y Date: 12/25/2024 12:42 Dictated By: Will Voss M.D. Signed By: 12/25/24 1244 DD/ 1242 TD/TT: Lace Machine Operator: PROF 14(COMP METB) Reviewed date:01/21/2024 07:52:55 PM Interpretation: Performing Lab: Notes/Report: [facility] , Sodium 142 136-145 mmol/L Potassium [...] 0.7 Performing Lab: see note ML - [facility] LB MAGNESIUM Reviewed date:01/21/2024 07:52:55 PM Interpretation: Performing Lab: Notes/Report: [facility] , Magnesium 1.6 1.8-2.4 mg/dL Performing Lab: see note ML - [facility] LB CBC AUTO DIFF Reviewed date:01/21/2024 07:52:54 PM Interpretation: Performing Lab: Notes/Report: [facility] , White Blood Count 15.7 4.0-11.0 [...] 3/uL Performing Lab: see note ML - [facility] CARDIAC ILSA 3-6 Reviewed date:01/21/2024 07:52:54 PM Interpretation: Performing Lab: Notes/Report: [facility] , Creatine Kinase 30 26-192 U/L [...] HAS BEEN CONFIRMED THE DECISION THRESHOLD FOR DE USED IN ISOLATION BUT SHOULD BE INTERPRETED IN CONJUNCTION Performing Lab: see note ML - [facility] Reason For Referral Diagnosis 1 Left foot pain (M79. 672) Referral Organization [facility] [place] Referring Provider First Name Les Referring Provider Last Name angelito [facility] Provider Aman Cobian Referred Provider Specialty Orthopedic S urgery Referral Priority Routine Diagnosis 1 Left foot pain (M79. 672) Referral Organization [facility] [place] Referring Provider First Name Les Referring Provider Last Name Julia Referring Provider [facility] madhuri Referred Provider Joseph Cobian Referred Provider Specialty Podiatry Referral Priority Routine Diagnosis 1 Gallstones (K80.20) Referral Organization [facility] Referring Provider First Name Les Referring Provider Last Name Julia Referring Provider Speciality Family Med madhuri Referred Provider Anna Breaux Referred Provider Specialty General Surg chelsea [...] allow to dissolve Orally qid 09/13/2024 Active Pantoprazole Sodium 40 MG 1 tablet Orall y Once a day for 30 days Active hydroCHLOROthiazide 12.5 MG 1 tablet in [...] a day for 10 day(s) 12/03/2024 Active Coreg 12.5 MG 1 tablet with [...] W/U Status Risk Notes Problem Cerebrovascular disease (58716199) Other cerebrovascular disease (I67.89) Active confirmed Problem Cyst of pancreas (36033617) Cyst of pancreas (K86.2) Active confirmed Problem Pilar cyst (196131107) Pilar cyst (L72.11) Active confirmed Problem Sebaceous cyst (874475213) Sebaceous cyst (L72.3) Active confirmed Problem Morbid obesity (086602021) Morbid obesity (E66.01) Active confirmed Problem Hypertension (03837756) Hypertension (I10) Active confirmed Problem Osteoarthritis (419541110) Osteoarthritis (M19.90) Active confirmed Problem Arthritis (8161835) Arthritis (M19.90) Active confirmed Problem Prediabetes (775771716) Prediabetes (R73.09) Active confirmed Problem Migraine (53429244) Migraine (G43.909) Active confirmed Problem Well adult (756033451) Well adult (Z00.00) Active confirmed Problem Leg pain (85967154) Leg pain (M79.606) Active confirmed Problem Tricuspid valve disorder (49401294) Moderate tricuspid regurgitation (I07.1) Active confirmed Problem Diverticulitis (60571672) Diverticulitis (K57.92) Active confirmed Problem Gallstones (183720872) Gallstones (K80.20) Active confirmed Problem Degeneration of cervical intervertebral disc (87207646) Degenerative cervical disc (M50.30) Active confirmed Problem Seasonal allergic rhinitis (850753750) Allergic rhinitis, seasonal (J30.2) Active confirmed Problem Gastro-esophageal reflux (571506583) Gastro-esophageal reflux (K21.9) Active confirmed Problem Hemiplegic migraine (60735506) Hemiplegic migraine (G43.409) Active confirmed Problem Calcaneal spur (28403550) Heel spur, unspecified laterality (M77.30) Active confirmed Problem Leukocytosis (065976694) Elevated WBCs (D72.829) Active confirmed Problem Essential hypertension (88877838) BP (high blood pressure) (I10) Active confirmed Problem Disease caused by Severe acute respiratory syndrome coronavirus 2 (disorder) (471429895) COVID-19 virus infection (U07.1) Active confirmed Vital Signs Temperature 99.7 degrees Fahrenheit 09/13/2024 Blood pressure diastolic 80 mm Hg 11/20/2024 Height 68 in 11/20/2024 Blood pressure systolic 132 mm Hg 11/20/2024 Weight 221.4 lbs 11/20/2024 BMI 33.66 kg/m2 11/20/2024 Encounters Encounter Location Date Provider Diagnosis [facility] [address] [place] [id number] 01/18/2024 Les Hoy Diverticulitis K57.9 2 [facility] [address] [facility] [place] [address] 01/31/2024 Les Hoy Hypertension I10 and Diverticulitis K57.92 [facility] [address] [facility] [place] [address] 01/22/2024 Les Hoy Gastroenteritis K52. 9 and Diverticulitis K57.92 [facility] [address] [facility] [place] [address] 09/13/2024 Les Hoy Diverticulitis K57.9 2 [facility] [address] [facility] [place] [address] 11/20/2024 Les Hoy Epigastric abdominal pain R10.13 and Left upper quadrant abdominal pain R10.12 [facility] [address] [facility] [place] [address] 01/04/2024 Les Hoy [facility] [address] [facility] [place] [address] 01/09/2024 Les Hoy [facility] [address] [facility] [place] [address] 01/31/[address] [facility] [address] [facility] [place] [address] 09/27/2024 Les Hoy Left foot pain M79.6 72 [facility] [address] [facility] [place] [address] 10/02/2024 Les Hoy Left foot pain M79.6 72 [facility] [address] [facility] [place] [address] 10/19/2024 Les Hoy Left foot pain M79.6 72 [facility] [address] [facility] [place] [address] 10/21/2024 Les Hoy Left foot pain M79.6 72 [facility] [address] [facility] [place] [address] 11/21/2024 Les Hoy [facility] [address] [facility] [place] [address] 11/25/2024 Les Hoy Gallstones K80.20 [facility] [address] [place] [address] 11/27/2024 Les Hoy [facility] [address] [facility] [place] [address] 12/03/2024 Les Hoy UTI (urinary tract infection) N39.0 [facility] [address] [facility] [place] [address] 12/05/2024 Les Hoy UTI (urinary tract infection) N39.0 [facility] [address] [facility] [place] [address] 12/23/2024 Les Hoy UTI (urinary tract infection) N39.0 [facility] [address] [place] [address] 12/27/2024 Les Hoy Hypertension I10 and Dysuria R30.0 Assessments Encounter Date Diagnosis (ICD Code) Assessment Notes Treatment Notes Treatment Clinical Notes Section Notes 01/18/2024 Diverticulitis (ICD-10 - K57.92) 01/31/2024 Hypertension [...] East back into eating by eating bland, ygnp-zt-tlrodo foods like crackers, toast, gelatin, bananas, rice and chicken. Try to avoid foods/substances including dairy products, caffeine, alcohol, nicotine and fatty or highly seasoned foods. Medications such as ibuprofen or tylenol can make your stomach more upset, so use sparingly if at all. Also avoid dbzm-hhv-tbzboqc anti-diarrheal medications because it can make it [...] UTI (urinary tract infection) (ICD-10 - N39.0) 12/27/2024 Hypertension (ICD-10 - I10) 12/27/2024 Dysuria (ICD-10 - R30.0) 09/13/2024 Other Get plenty of rest. Stay hydrated by sucking on ice chips or taking small sips of water. You can also try drinking clear soda, clear broths or noncaffeinated sports drinks. Stop eating solid foods for a few hours to let your stomach settle. East back into eating by eating bland, peia-uh-ybqbpz foods like crackers, toast, gelatin, bananas, rice and chicken. Try to avoid foods/substances including dairy products, caffeine, alcohol, nicotine and fatty or highly seasoned foods. Medications such as ibuprofen or tylenol can make your stomach more upset, so use sparingly if at all. Also avoid vjnn-ipo-dfchwks anti-diarrheal medications because it can make it harder for your body to eliminate the virus. Plan Of Treatment Pending Test Test Name Order Date UA (URINALYSIS, COMPLETE) 12/03/2024 UA (URINALYSIS, COMPLETE) 12/05/2024 UA (URINALYSIS, COMPLETE) 12/23/2024 UA (URINALYSIS, COMPLETE) 12/27/2024 UA (URINALYSIS, MICRO ONLY) 12/27/2024 Urine Culture 12/03/2024 XR Foot 2 Views Left 09/27/2024 AMYLASE 11/20/2024 CBC AUTO DIFF 11/20/2024 CULTURE URINE 12/23/2024 CULTURE URINE 12/05/2024 CULTURE URINE 12/27/2024 LIPASE 11/20/2024 PROF 14(COMP METB) 11/20/2024 URINE MICROSCOPIC ONLY 12/03/2024 URINE MICROSCOPIC ONLY 12/23/2024 US ABD 11/20/2024 US KIDNEYS BLADDER 12/27/2024 CT ANKLE LEFT WO CONTRAST 10/02/2024 CT FOOT LEFT WO CONTRAST 10/02/2024 Insurance Providers Payer Name Payer Address Payer Phone Subscriber Number Group Number Insured Name Patient Relationship to Insured Coverage Start Date Coverage End Date MMO [employer] [address] [place] [phone] [id number] Nancy Norris Self - patient is the [...] I07.1 Hypertension I10 Surgical History Surgery Date(Month/Year) 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
--- OUTSIDE RECORDS SUMMARY | 2024-12-29 21:00 | XMS_ITS | CCD ---
Author Organization [facility] Care Team Providers Care Public Health Physician Name Role Phone Cecilio Dumont Unavailable Unavailable Unavailable Julia Ayon Unavailable MD Cecilio Dumont Primary Care Provider [phone] MD Anneliese Garcia Attending Provider MD Anneliese Garcia Referring Provider DO Renny Walton Attending Provider Sharla Strange Unavailable MD Cecilio Dumont Primary Care Provider [phone] MARIA T Strange Attending Provider [phone] MD Cecilio Dumont Attending Provider [phone] CHE[address] ., DR HERNANDES Consulting Unavailable HOY ., DR HERNANDES Attending Unavailable HOY ., DR HERNANDES Admitting Unavailable HOY ., DR HERNANDES Primary Care Unavailable HOY ., DR HERNANDES Primary Care Unavailable HOY ., DR HERNANDES Consulting Unavailable HOY ., DR HERNANDES Attending Unavailable HOY ., DR HERNANDES Admitting Unavailable MD Cecilio Dumont Primary Care Provider [phone] DO Renny Walton Attending Provider Isabel Kent Unavailable Dr. Cecilio Dumont Primary Care Unavail able MD Cecilio Dumont Primary Care Provider [phone] YVROSE Kent Attending Provider [phone] MD Erika Escobedo Emergency Provider [phone] MD Nabil Baker Admit Provider MD Nabil Baker Attending Provider MD Anneliese Garcia Other Provider ANNELIESE GARCIA Referring Unavailable CECILIO DUMONT Primary Care Unavailable ANNELIESE GARCIA Referring Unavailable CECILIO DUMONT Primary Care Unavailable Cecilio Dumont MD Primary Care Provider [phone] MD Cecilio Dumont Primary Care Provider [facility], DO Renny Finch Attending Provider ANNELIESE GARCIA Attending Unavailable ANNELIESE GARCIA Referring Unavailable CECILIO DUMONT Primary Care Unavailable Cecilio Dumnot MD Primary Care Provider [phone] Cecilio Dumont MD Attending Provider [phone] Unavailable Primary Care Provider UnavailCecilio Mcarthur MD Primary Care Provider [phone] Cecilio Dumotn MD Primary Care Provider [phone] Isabel Kent APRN Attending Provider [phone] JOSEPH COBIAN Attending Unavailable CECILIO DUMONT Referring Unavailable JOSEPH COBIAN Attending Unavailable Cecilio Dumont Primary Care Physician Anthony IVERSON Attending Unavailable [facility] Renny JOHNSON Attending Provider John Benson MD Attending Provider [phone] Cecilio Dumont MD Primary Care Provider [phone] Cecilio Dumont MD Attending Provider Cecilio Dumont Admitting Unavailable Cecilio Dumont Primary Care Unavailable Cecilio Dumont Attending Unavailable Cecilio Dumont Admitting Unavailable Cecilio Dumont Primary Care Unavailable Cecilio Dumont [facility] Attending Unavailable Cecilio Dumont Primary Care Unavailable John Benson II Admitting Unavailjacob e John Benson II Attending Unavailabl e Hoy, Cecilio M Primary Care Unavailable Hoy, Cecilio M Attending Unavailable Hoy, Cecilio M Primary Care Unavailable Hoy, Cecilio M Admitting Unavailable Hoy, Cecilio M Attending Unavailable Hoy, Cecilio M Admitting Unavailable Hoy, Cecilio M Primary Care Unavailable Hoy, Cecilio M Admitting Unavailable Hoy, Cecilio M Primary Care Unavailable Hoy, Cecilio M Attending Unavailable Hoy, Cecilio M Admitting Unavailable Hoy, Cecilio M Primary Care Unavailable Hoy, Cecilio M Attending Unavailable Hoy, Cecilio M Admitting Unavailable Hoy, Cecilio M Primary Care Unavailable Hoy, Cecilio M Attending Unavailable Allergies Allergy Classification Reported Allergen(s) Allergy Type Date of Onset Reaction(s) Facility Anti-Epileptic Agents (1 source) topiramate Drug Allergy 09-06-19 Diarrhea, Vomiting [facility] Cephalosporins (antibiotic) (1 source) Cefuroxime Drug Allergy 09-06-19 [facility] Dihydrofolate Reductase Inhibitors (antibiotic) (1 source) Trimethoprim Drug Allergy 09-06-19 [facility] Doxycycline (1 source) Doxycycline Drug Allergy 09-06-19 [facility] Macrolides (antibiotic) (1 source) Azithromycin Drug Allergy 09-06-19 [facility] Opioid Agonists (1 source) Morphine Drug Allergy 09-06-19 [facility] Penicillins (antibiotic) (2 sources) Amoxicillin Drug Allergy 09-06-19 [facility] Quinolones (antibiotic) (1 source) levoFLOXacin Drug Allergy 09-06-19 [facility] Sulfonamides (antibiotic) (1 source) Sulfamethoxazole Drug Allergy 09-06-19 [facility] (15 sources) Cefuroxime; Translations: [Ceftin] Drug Allergy Weal (disorder) [facility] [place] (20 sources) Penicillins; Translations: [Penicillins] Allergy to drug (finding) 06-17-19 09 Rash, Unknown Reaction, [facility] (3 sources) Morphine Derivatives; Translations: [Morphine Derivatives] Allergy to drug (finding) [address] Work Phone: (20 sources) Amoxicillin Drug Allergy 07-15-19 22 Unknown, [facility] (20 sources) Doxycycline; Translations: [doxycycline] Drug Allergy 07-15-19 22 Weal (disorder) [facility] (16 sources) Erythromycin; Translations: [ERYTHROMYCIN] Drug Allergy 06-17-19 09 Unknown, Weal (disorder) [facility] (10 sources) levoFLOXacin Drug Allergy Unknown [facility]. [facility] [place] Other (20 sources) Morphine; Translations: [MORPHINE] Drug Allergy 07-15-19 22 Hives, Itching, Rash [facility] (11 sources) Sulfamethoxazole / Trimethoprim; Translations: [sulfamethoxazole-t rimethoprim] Drug Allergy Eruption of skin (disorder) [facility] [place] (20 sources) FLU Vacine Propensity to adverse reactions 05-31-19 24 dizzy,[facility] (20 sources) Azithromycin Drug Allergy 07-15-19 22 [facility] (20 sources) Cefuroxime Drug Allergy 07-15-19 22 [facility] (20 sources) Sulfamethoxazole Drug Allergy 07-15-19 22 [facility] (20 sources) Trimethoprim Drug Allergy 07-15-19 22 [facility] (1 source) Amoxicillin Drug Allergy [facility] (1 source) Cefuroxime Drug Allergy 11-24-19 13 [facility] Rep[facility] (2 sources) Codeine; Translations: [codeine] Drug Allergy 04-17-20 13 [facility] (2 sources) Doxycycline; Translations: [Vibramycin] Drug Allergy 11-24-19 13 [facility] (18 sources) Erythromycin Drug Allergy 11-24-19 13 Rash [facility] (1 source) Morphine Drug Allergy 11-24-19 13 [facility] (2 sources) traMADol; Translations: [Ultram] Drug Allergy 04-17-20 13 [facility] (1 source) Morphine Drug Allergy Unknown [facility] [place] Other (20 sources) topiramate; Translations: [TOPIRAMATE] Drug Allergy 03-14-20 23 Diarrhea, Multiple symptoms (finding) [facility] Rep[facility] (4 sources) Cefuroxime; Translations: [CEFUROXIME AXETIL] Drug Allergy 06-17-19 09 Rash [facility] (18 sources) levoFLOXacin; Translations: [LEVOFLOXACIN] Drug Allergy 06-17-19 09 Unknown [facility] Comment on above: Pt indicates she can take this as of 12/20/2023. (4 sources) OTHER; Translations: [OTHER] Propensity to adverse reactions (disorder) 03-13-20 23 Hives, Itching, Fever [facility] Rep[facility] (1 source) ALLERGIES NOT ON FILE; Translations: [ALLERGIES NOT ON FILE] Propensity to adverse reactions (disorder) [facility] (2 sources) Penicillins Drug Allergy 06-17-19 09 [facility] Work Phone: (1 source) Codeine; Translations: [codeine] Drug Allergy Vomiting (disorder) [facility] [place] (2 sources) influenza A virus [id number] (H1N1) antigen / influenza A virus A//2014 (H3N2) antigen / influenza B virus B/Duvall antigen / influenza B virus B/ antigen; Translations: [influenza virus vaccine] Drug Allergy Weal (disorder) [facility] (2 sources) Penicillin; Translations: [penicillin] Drug Allergy Weal (disorder) [facility] (1 source) traMADol; Translations: [tramadol] Drug Allergy Hives [facility] (1 source) Sulfamethoxazole / Trimethoprim; Translations: [Bactrim] Drug Allergy [facility] Repository (1 source) topiramate; Translations: [Topamax] Drug Allergy [facility] Repository Medications Current Medications Medication Drug Class(es) [...] twice daily take 1 tablet by hugo every twelve hours Carvedilol 25 MG 1 [...] Start: 10-22-2021 take 1 capsule by mo [facility] once daily hydroCHLOROthiazide 12.5 MG Oral Capsule [...] 2023 7:35am take 1 tablet by hugo th every six hours as needed Hyoscyamine Sulfate [...] as needed for nausea and vomiting 12 April 04, 2020 1:00am June 04, 2020 [...] da jonatan as needed for headache Semaglutide (9 sources) Start: 09-13-2024 Start: 09-13-2024 Semaglutide (O zempic) 0.25 mg or 0.5 mg (2 mg/3 mL) pen injector Active 0.5 MG SUBCUT every week 3 September 13, 2024 12:00am 0.25mg once weekly [...] Three times daily as needed for pain 10 5 September 27, 2021 January 03, 2023 10:55am Start: 07-14-2021 End: 01-03-2023 take 1 tablet by mouth every six hours as needed for pain Hydrocodone-Acetaminophen 5-325 mg table t Discontinued 1 TAB PO Q6H as needed for pain 01 12July 14, 2021 January 03, 2023 10:55am acetaminophen 325 mg / oxyCODONE hydrochloride 5 mg oral tablet (20 sources) Opioid Agonist Start: 10-23-2020 End: 07-06-2021 take 1 tablet by mouth every six hours as needed for pain Oxycodone-Acetaminophen (Percocet) 5-325 mg tablet Discontinued 1 - 2 TAB PO Every 6 hours as needed for pain 01 08October 23, 2020 July 06, 2021 9:31am amoxicillin 875 mg / clavulanate 125 [...] 11:40am docusate sodium 50 mg / sennosides, senior care 8.6 mg oral tablet (20 sources) Start: [...] 2017 11:40am levoFLOXacin 500 mg oral tablet (15 sources) Quinolone Antimicrobial Start: 10-27-2023 End: 12-20-2023 [...] Tablet Discontinued 10 MG PO Every morning 0 February 15, 2017 12:00am October 25, 2017 11:40am metroNIDAZOLE 500 mg oral tablet (20 sources) Nitroimidazole Antimicrobial Start: 09-25-2020 End: 07-07-2023 take 1 tablet by mouth twice daily Metronidazole 500 mg tablet Discontinued 500 MG PO Twice daily September 27, 2021 12:00am July 07, 2023 2:55pm phenazopyridine hydrochloride 200 mg oral tablet (15 sources) Start: 10-27-2023 End: 12-20-2023 take 1 [...] 4 weeks then 1mg weekly thereafter Semaglutide (16 sources) Start: 09-11-2024 End: 09-13-2024 inject 2 [...] abdominal pain; Translations: [Unspecified abdominal pain] Onset: 5 Episodic Acute cerebrovascular disease (20 sources) Cerebrovascular [...] Swollen abdomen; Translations: [Abdominal distension (gaseous)] Onset: Episodic Other gastrointestinal disorders (2 sources) Diarrhea; [...] skin] 02-14-2017 Episodic Other non-traumatic joint disorders (3 sources) Pain in right knee; Translations: [Pain in right knee] Onset: 5 Episodic Other non-traumatic joint disorders (2 sources) Pain in right wrist Episodic Other nutritional; endocrine; and metabolic disorders (20 sources) Obesity; Translations: [Obesity, unspecified] Chronic Other nutritional; endocrine; and metabolic disorders (20 sources) Body mass index 30+ - obesity; Translations: [Body mass index (BMI) 33.0-33.9, adult] Onset: 3 03-24-2023 Chronic Other nutritional; endocrine; and metabolic disorders [...] Chronic Other nutritional; endocrine; and metabolic disorders (18 sources) High density lipoprotein deficiency ; Translations: [...] AND COLLAPSE] Onset: 3 Episodic Thyroid disorders (19 sources) Thyroid nodule; Translations: [Nontoxic single thyroid [...] Test Name Value Interpretation Reference Range Facility X-ray reportOrdered By: Evaristo Sanchez on 12-26-2024 Study report [facility] [address] [place] [address] XRay Report Signed Patient: Nancy Hooper MR#: [id number] : 1960 Acct:[id number] Age/Sex: 64 / F ADM Date: 5 Loc: [facility] Room: Type: [facility] Attending Dr: John Benson II, MD Copies to: John Benson MD~ Ordering Provider: John Benson MD Date of Service: 12/26/24 XR/XR knee RT 4V*: M25.561 - Pain in right knee 4 views right knee plain film COMPARISON: 08/08/2022 HISTORY: Right knee pain for months ACUTE FINDINGS: No acute findings DEGENERATIVE CHANGE: Progress of the medial degeneration with [id number] contact patellofemoral and lateral degeneration superior patellar enthesophyte SOFT TISSUE FINDINGS: Unremarkable JOINT EFFUSION: Small POSTOP CHANGES: None BONE MINERALIZATION: Adequate XR/XR knee RT 4V* IMPRESSION: Progression of extensive medial degeneration Impression dictated by: Juwan Sanchez M.D. 12/26/2024 11:45 AM Dictation Location: [place] [address] Transcribed By: [facility] 12/26/24 1145 Dictated By: Juwan Sanchez DO 12/26/24 1144 Signed By: 12/26/24 1145 [facility] Study report [facility] [address] [place] [address] XRay Report Signed Patient: Nancy Hooper MR#: [id number] : 1960 Acct:[id number] Age/Sex: 64 / F ADM Date: 5 [place] [facility] [place] Room: Type: [facility] Attending Dr: John Benson II, MD Copies to: John Benson MD~ Ordering Provider: John Benson MD Date of Service: 12/26/24 XR/XR pelvis 1-2V: M25.561 - Pain in right knee Single view of the pelvis plain film HISTORY: Right knee pain for months COMPARISON: None ACUTE FINDINGS: None BONY ALIGNMENT: Adequate SOFT TISSUES: Unremarkable DEGENERATIVE CHANGE:Adequate hip joint spaces. No bony articular collapse. No AVN. Greater trochanter spurring. Calcific changes of the soft tissues of the left hip. Benign finding INTRAPELVIC STRUCTURES: Unremarkable POSTSURGICAL CHANGES:None suspected colonic diverticulosis with suspected contrast XR/XR pelvis 1-2V IMPRESSION:Bilateral greater trochanter spurring. Adequate hip joints. Impression dictated by: Juwan Sanchez M.D. 12/26/2024 11:44 AM Dictation Location: [facility] Transcribed By: ADAM 12/26/24 1144 Dictated By: Juwan Sanchez DO 12/26/24 1142 Signed By: 12/26/24 1144 [facility] XR knee RT 4V*on 12-26-2024 XR knee RT 4V* [facility] [address] [place] [address] XRay Report Signed Patient: Nancy Hooper MR#: [id number] 68 : 1960 Acct:[id number] Age/Sex: 64 / F ADM Date: 12/26/24 Loc: [facility] [place] Room: Type: [facility] Attending Dr: John Benson II, MD Copies to: John Benson MD Ordering Provider: John Benson MD Date of Service: 12/26/24 XR/XR knee RT 4V*: M25.561 - Pain in right knee 4 views right knee plain film COMPARISON: 08/08/2022 HISTORY: Right knee pain for months ACUTE FINDINGS: No acute findings DEGENERATIVE CHANGE: Progress of the medial degeneration with [id number] contact patellofemoral and lateral degeneration superior patellar enthesophyte SOFT TISSUE FINDINGS: Unremarkable JOINT EFFUSION: Small POSTOP CHANGES: None BONE MINERALIZATION: Adequate XR/XR knee RT 4V* IMPRESSION: Progression of extensive medial degeneration Impression dictated by: Juwan Sanchez M.D. 12/26/2024 11:45 AM Dictation Location: [facility] Transcribed By: ADAM 12/26/24 1145 Dictated By: Juwan Sanchez DO 12/26/24 1144 Signed By: 12/26/24 1145 Normal [facility] XR pelvis 1-2Von 12-26-2024 XR pelvis 1-2V [facility] [address] [place] [address] XRay Report Signed Patient: Nancy Hooper MR#: [id number] 68 : 1960 Acct:[id number] Age/Sex: 64 / F ADM Date: 12/26/24 Loc: [facility] [place] Room: Type: [facility] Attending Dr: John Benson II, MD Copies to: John Benson MD Ordering Provider: John Benson MD Date of Service: 12/26/24 XR/XR pelvis 1-2V: M25.561 - Pain in right knee Single view of the pelvis plain film HISTORY: Right knee pain for months COMPARISON: None ACUTE FINDINGS: None BONY ALIGNMENT: Adequate SOFT TISSUES: Unremarkable DEGENERATIVE CHANGE:Adequate hip joint spaces. No bony articular collapse. No AVN. Greater trochanter spurring. Calcific changes of the soft tissues of the left hip. Benign finding INTRAPELVIC STRUCTURES: Unremarkable POSTSURGICAL CHANGES:None suspected colonic diverticulosis with suspected contrast XR/XR pelvis 1-2V IMPRESSION:Bilateral greater trochanter spurring. Adequate hip joints. Impression dictated by: Juwan Sanchez M.D. 12/26/2024 11:44 AM Dictation Location: [place] [address] Transcribed By: [facility] 12/26/24 1144 Dictated By: Juwan Sanchez DO 12/26/24 1142 Signed By: 12/26/24 1144 Normal [facility] Appearance of UrineOrdered B y: Cecilio Dumont on 12-24-2024 Appearance (U) Clear Normal Clear [facility] Comment on above: Order Comment: Name Collection Type:: Clean-Voided Midstream Performed By: #### C UU, ADDONUAPLUS ####[facility] [address] [place] [address] [facility] Bacteria [Presence] in Urine by AutomatedOrdered By: Cecilio Dumont on 12-24-2024 Bacteria Auto Ql (U) None seen [HPF] None Seen [facility] Bilirubin Test strip Ql (U)O rdered By: Cecilio Dumont on 12-24-2024 Bilirubin Ql (U) Negative Negative [facility] Calcium oxalate crystals [Pr esence] in Urine by Computer assisted methodOrdered By: Cecilio Dumont on 12-24-2024 Calcium oxalate crystals Computer assisted Ql (U) 3+ [HPF] [facility] Color of Urine by AutoOrdere d By: Cecilio Derekangelito on 12-24-2024 Color (U) Light-yellow Normal Yellow [facility] Comment on above: Order Comment: Name Collection Type:: Clean-Voided Midstream Performed By: #### C UU, ADDONUAPLUS ####[address] [address] [facility] Dipstick and Microscopicon 0 12-24-2024 Bacteria,Urine None Seen Normal None Seen [facility] Comment on above: Order Comment: Name Collection Type:: Clean-Voided Midstream Performed By: #### C UU, ADDONUAPLUS ####[address] [address] [facility] Bilirubin,Urine Negative Normal Negative [facility] Comment on above: Order Comment: Name Collection Type:: Clean-Voided Midstream Performed By: #### C UU, ADDONUAPLUS ####[address] [address] [facility] Calcium Oxalate Crystals,Urine 3+ [HPF] Normal [facility] Comment on above: Order Comment: Name Collection Type:: Clean-Voided Midstream Performed By: #### C UU, ADDONUAPLUS ####[address] [address] [facility] Glucose Ql (U) Normal Normal Normal [facility] Comment on above: Order Comment: Name Collection Type:: Clean-Voided Midstream Performed By: #### C UU, ADDONUAPLUS ####[address] [address] [facility] Hyaline Casts,Urine None Normal 0-8 [facility] Comment on above: Order Comment: Name Collection Type:: Clean-Voided Midstream Performed By: #### C UU, ADDONUAPLUS ####[address] [place] [address] [facility] Mucus,Urine Rare Normal [facility] Comment on above: Order Comment: Name Collection Type:: Clean-Voided Midstream Result Comment: PERF ORMED BY: [facility] [address] [place] [address] PATHOLOGIST CONTROL CLERK SUBASSEMBLY BASSAM BRADFORD M.D. Performed By: #### C UU, ADDONUAPLUS ####[place] [id number] [facility] Nitrite,Urine Negative Normal Negative [facility] Comment on above: Order Comment: Name Collection Type:: Clean-Voided Midstream Performed By: #### C UU, ADDONUAPLUS ####[address] Occult Blood,Urine Trace Normal Negative [facility] Comment on above: Order Comment: Name Collection Type:: Clean-Voided Midstream Performed By: #### C UU, ADDONUAPLUS ####[address] Protein,Urine Negative Normal Negative [facility] Comment on above: Order Comment: Name Collection Type:: Clean-Voided Midstream Performed By: #### C UU, ADDONUAPLUS ####[place] [id number] [facility] RBC,Urine 1-2 Normal 0-4 [facility] Comment on above: Order Comment: Name Collection Type:: Clean-Voided Midstream Performed By: #### C UU, ADDONUAPLUS ####[place] [id number] [facility] Specificy Pryor,Urine 1.033 High 1.001-1.03 0 [facility] Comment on above: Order Comment: Name Collection Type:: Clean-Voided Midstream Performed By: #### C UU, ADDONUAPLUS ####[place] [id number] [facility] Squamous Epithelial Cell,Urine 1-2 Normal 0-2 [facility] Comment on above: Order Comment: Name Collection Type:: Clean-Voided Midstream Performed By: #### C UU, ADDONUAPLUS ####[place] [id number] [address] Urobilinogen,Urine Normal Normal Normal [facility] Comment on above: Order Comment: Name Collection Type:: Clean-Voided Midstream Performed By: #### C UU, ADDONUAPLUS ####[address] WBC,Urine 3-4 Normal 0-4 [facility] Comment on above: Order Comment: Name Collection Type:: Clean-Voided Midstream Performed By: #### C UU, ADDONUAPLUS ####[address] Epithelial cells.squamous [# /area] in Urine sediment by Automated countOrdered By: Cecilio Dumont on 12-24-2024 Epithelial cells.squamous Auto (Urine sed) [#/Area] 1-2 [HPF] 0-2 [facility] Erythrocytes [#/area] in Uri ne sediment by Automated countOrdered By: Cecilio Dumont on 12-24-2024 RBC Auto (Urine sed) [#/Area] 1-2 [HPF] 0-4 [facility] Glucose [Mass/volume] in Uri ne by Test stripOrdered By: Cecilio Dumont on 12-24-2024 Glucose Test strip (U) [Mass/Vol] Normal mg/dL Normal [facility] Hemoglobin Test strip Ql (U) Ordered By: Cecilio Dumont on 12-24-2024 Hemoglobin Ql (U) Trace High Negative [facility] Hyaline casts [#/area] in Ur ine sediment by Automated countOrdered By: Cecilio Dumont on 12-24-2024 Hyaline casts Auto (Urine sed) [#/Area] None [LPF] 0-8 [facility] Ketones [Presence] in Urine by Test stripOrdered By: Cecilio Dumont on 12-24-2024 Ketones Ql (U) Negative Normal Negative [facility] Comment on above: Order Comment: Name Collection Type:: Clean-Voided Midstream Performed By: #### C UU, ADDONUAPLUS ####[place] [id number] [place] [id number] [facility] Leukocyte esterase [Presence ] in Urine by Test stripOrdered By: Cecilio Dumont on 12-24-2024 Leukocyte esterase Test strip Ql (U) Negative Normal Negative [facility] Comment on above: Order Comment: Name Collection Type:: Clean-Voided Midstream Performed By: #### C UU, ADDONUAPLUS ####[place] [id number] [place] [id number] [facility] Leukocytes [#/area] in Urine sediment by Automated countOrdered By: Cecilio Dumont on 12-24-2024 WBC Auto (Urine sed) [#/Area] 3-4 [HPF] 0-4 [facility] Mucus [Presence] in Urine by AutomatedOrdered By: Cecilio Dumont on 12-24-2024 Mucus Auto Ql (U) Rare [LPF] [facility] Nitrite Test strip Ql (U)Ord ered By: Cecilio Dumont on 12-24-2024 Nitrite Ql (U) Negative Negative [facility] Protein Test strip (U) [Mass /Vol]Ordered By: Cecilio Dumont on 12-24-2024 Protein (U) [Mass/Vol] Negative Negative [facility] Specific gravity Test strip (U) [Rel density]Ordered By: Cecilio Dumont on 12-24-2024 Specific gravity (U) [Rel density] 1.033 High 1.001-1.03 0 [facility] Urine Cultureon 12-24-2024 Bacteria identified Cx Nom (U) <9,000 colonies/ml mixed bacterial skin contaminants 2 Days PERFORMED BY: [facility] [address] [place] [id number] PATHOLOGIST CONTROL CLERK SUBASSEMBLY BASSAM BRADFORD M.D. Normal [facility] Comment on above: Performed By: #### C UU, ADDONUAPLUS ####[place] [id number] [place] [id number] [facility] Urine cultureOrdered By: Yg Dumont on 12-24-2024 Bacteria identified Cx Nom (U) 2 Days [facility] Urobilinogen Test strip (U) [Mass/Vol]Ordered By: Cecilio Dumont on 12-24-2024 Urobilinogen (U) [Mass/Vol] Normal mg/dL Normal [facility] pH of Urine by Test stripOrd ered By: Cecilio Dumont on 12-24-2024 pH (U) 5.5 [pH] Normal 5.0-9.0 [facility] Comment on above: Order Comment: Name Collection Type:: Clean-Voided Midstream Performed By: #### C UU, ADDONUAPLUS ####[facility] [address] [place] [address] [place] Alanine aminotransferase [En zymatic activity/volume] in Serum or PlasmaOrdered By: Renny Walton on 12-20-2024 ALT [Catalytic activity/Vol] 16 U/L Normal 7-52 [facility] Comment on above: Performed By: #### P ILLAR CBC, EBS A1C, PILLAR LIPID, PILLAR CMP #### [facility] [address] [place] [address] [place] Albumin [Mass/volume] in Ser um or Plasma by Bromocresol green (BCG) dye binding methoOrdered By: Renny Walton on 12-20-2024 Albumin BCG dye [Mass/Vol] 4.2 g/dL 3.5-5.7 [facility] Alkaline phosphatase [Enzyma tic activity/volume] in Serum or PlasmaOrdered By: Renny Walton on 12-20-2024 ALP [Catalytic activity/Vol] 59 U/L Normal 34-104 [facility] Comment on above: Performed By: #### P ILLAR CBC, EBS A1C, PILLAR LIPID, PILLAR CMP #### [facility] [address] [place] [address] [place] Appearance of UrineOrdered B y: Cecilio Dumont on 12-20-2024 Appearance (U) Clear Normal Clear [facility] Comment on above: Order Comment: Name Collection Type:: Clean-Voided Midstream Performed By: #### C UU, ADDONUAPLUS #### [facility] [address] [place] [address] [place] Aspartate aminotransferase [ Enzymatic activity/volume] in Serum or PlasmaOrdered By: Renny Walton on 12-20-2024 AST [Catalytic activity/Vol] 13 U/L Normal 13-39 [facility] Comment on above: Performed By: #### P ILLAR CBC, EBS A1C, PILLAR LIPID, PILLAR CMP #### [facility] [address] Bacteria [Presence] in Urine by AutomatedOrdered By: Cecilio Dumont on 12-20-2024 Bacteria Auto Ql (U) None seen [HPF] None Seen [facility] Basophils [#/volume] in Bloo d by Automated countOrdered By: Renny Walton on 12-20-2024 Basophils (Bld) [#/Vol] 0.1 10*3/uL Normal 0.0-0.2 [facility] Comment on above: Result Comment: PERF ORMED BY: [address] [place] [address] PATHOLOGIST CONTROL CLERK SUBASSEMBLY BASSAM BRADFORD M.D. Performed By: #### P ILLAR CBC, EBS A1C, PILLAR LIPID, PILLAR CMP #### [facility] [address] [place] [address] Basophils/100 leukocytes in Blood by Automated countOrdered By: Renny Walton on 12-20-2024 Basophils/100 WBC (Bld) 1.1 % Normal . [facility] Comment on above: Performed By: #### P ILLAR CBC, EBS A1C, PILLAR LIPID, PILLAR CMP #### [facility] [address] [place] [address] Bilirubin Test strip Ql (U)O rdered By: Cecilio Dumont on 12-20-2024 Bilirubin Ql (U) Negative Negative [facility] Bilirubin.total [Mass/volume ] in Serum or PlasmaOrdered By: Renny Walton on 12-20-2024 Bilirubin [Mass/Vol] 0.5 mg/dL Normal 0.3-1.0 [facility] Comment on above: Performed By: #### P ILLAR CBC, EBS A1C, PILLAR LIPID, PILLAR CMP #### [facility] [address] [place] [address] Blood estimated average gluc ose determination by estimation from glycated hemoglobinOrdered By: Renny Walton on 12-20-2024 Average glucose Estimated from glycated hemoglobin (Bld) [Mass/Vol] 117 mg/dL [facility] Calcium [Mass/volume] in Ser um or PlasmaOrdered By: Renny Walton on 12-20-2024 Calcium [Mass/Vol] 9.6 mg/dL Normal 8.6-10.3 [facility] Comment on above: Performed By: #### P ILLAR CBC, EBS A1C, PILLAR LIPID, PILLAR CMP #### [facility] [address] [place] [address] [place] Carbon dioxide, total [Moles /volume] in Serum or PlasmaOrdered By: Renny Walton on 12-20-2024 CO2 [Moles/Vol] 28.9 mmol/L Normal 21.0-31.0 [facility] Comment on above: Performed By: #### P ILLAR CBC, EBS A1C, PILLAR LIPID, PILLAR CMP #### [facility] [address] [place] [address] [place] Chloride [Moles/volume] in S genaro or PlasmaOrdered By: Renny Walton on 12-20-2024 Chloride [Moles/Vol] 106 mmol/L Normal 98-107 [facility] Comment on above: Performed By: #### P ILLAR CBC, EBS A1C, PILLAR LIPID, PILLAR CMP #### [facility] [address] [place] [address] [place] Cholesterol [Mass/volume] in Serum or PlasmaOrdered By: Renny Walton on 12-20-2024 Cholesterol [Mass/Vol] 178 mg/dL Normal 140-200 [facility] Comment on above: Chol less than 200 m g/dl low riskChol 201-239 mg/dl borderline riskChol 240 mg/dl and greater high risk Result Comment: Chol less than 200 mg/dl low risk Chol 201-239 mg/dl borderline risk Chol 240 mg/dl and greater high risk Performed By: #### P ILLAR CBC, EBS A1C, PILLAR LIPID, PILLAR CMP #### [facility] [address] [place] [id number] [place] Cholesterol in HDL [Mass/vol ume] in Serum or PlasmaOrdered By: Renny Walton on 12-20-2024 Cholesterol in HDL [Mass/Vol] 52 mg/dL Normal 23-92 [facility] Comment on above: HDL CHOL ATP-III CLA SSIFICATION Cardiovascular RiskHDL > or equal to 60 mg/dL LOWHDL < 40 mg/dL HIGH Result Comment: HDL CHOL ATP-III CLASSIFICATION Cardiovascular Risk HDL > or equal to 60 mg/dL LOW HDL < 40 mg/dL HIGH Performed By: #### P ILLAR CBC, EBS A1C, PILLAR LIPID, PILLAR CMP #### [facility] [address] [place] [address] [place] Cholesterol in LDL Calc [Mas s/Vol]Ordered By: Renny Walton on 12-20-2024 Cholesterol in LDL [Mass/Vol] 90 mg/dL 0-100 [facility] Comment on above: LDL ATP III CLASSIFI CATIONLDL less than 100 mg/dL OptimalLDL 100-129 mg/dL Near or above optimalLDL 130-159 mg/dL Borderline highLDL 160-189 mg/dL HighLDL greater than 189 mg/dL Very high Cholesterol in VLDL Calc [Ma ss/Vol]Ordered By: Renny Walton on 12-20-2024 Cholesterol in VLDL [Mass/Vol] 35 mg/dL [facility] Color of Urine by AutoOrdere d By: Cecilio Dumont on 12-20-2024 Color (U) Light-yellow Normal Yellow [facility] Comment on above: Order Comment: Name Collection Type:: Clean-Voided Midstream Performed By: #### C UU, ADDONUAPLUS #### [facility] [address] [place] [address] [place] Creatinine [Mass/volume] in Serum or PlasmaOrdered By: Renny Walton on 12-20-2024 Creatinine [Mass/Vol] 0.61 mg/dL Normal 0.60-1.20 [facility] Comment on above: Performed By: #### P ILLAR CBC, EBS A1C, PILLAR LIPID, PILLAR CMP #### [facility] [address] [place] [id number] [place] Dipstick and Microscopicon 0 12-20-2024 Bacteria,Urine None Seen Normal None Seen [facility] Comment on above: Order Comment: Name Collection Type:: Clean-Voided Midstream Performed By: #### C UU, ADDONUAPLUS #### [place] [id number] [place] Bilirubin,Urine Negative Normal Negative [facility] Comment on above: Order Comment: Name Collection Type:: Clean-Voided Midstream Performed By: #### C UU, ADDONUAPLUS #### [address] Glucose Ql (U) Normal Normal Normal [facility] Comment on above: Order Comment: Name Collection Type:: Clean-Voided Midstream Performed By: #### C UU, ADDONUAPLUS #### [place] [address] [place] Hyaline Casts,Urine None Normal 0-8 [facility] Comment on above: Order Comment: Name Collection Type:: Clean-Voided Midstream Performed By: #### C UU, ADDONUAPLUS #### [place] [address] [place] Mucus,Urine Rare Normal [facility] Comment on above: Order Comment: Name Collection Type:: Clean-Voided Midstream Result Comment: PERF ORMED BY: [place] [address] PATHOLOGIST CONTROL CLERK SUBASSEMBLY BASSAM BRADFORD M.D. Performed By: #### C UU, ADDONUAPLUS #### [place] [id number] [place] Nitrite,Urine Negative Normal Negative [facility] Comment on above: Order Comment: Name Collection Type:: Clean-Voided Midstream Performed By: #### C UU, ADDONUAPLUS #### [place] [id number] [place] Occult Blood,Urine 1+ Normal Negative [facility] Comment on above: Order Comment: Name Collection Type:: Clean-Voided Midstream Result Comment: PERF ORMED BY: [place] [address] PATHOLOGIST CONTROL CLERK SUBASSEMBLY BASSAM BRADFORD M.D. Performed By: #### C UU, ADDONUAPLUS #### [address] Protein,Urine Negative Normal Negative [facility] Comment on above: Order Comment: Name Collection Type:: Clean-Voided Midstream Performed By: #### C UU, ADDONUAPLUS #### [address] RBC,Urine 1-2 Normal 0-4 [facility] Comment on above: Order Comment: Name Collection Type:: Clean-Voided Midstream Performed By: #### C UU, ADDONUAPLUS #### [address] Specificy [place],Urine 1.020 Normal 1.001-1.03 0 [facility] Comment on above: Order Comment: Name Collection Type:: Clean-Voided Midstream Performed By: #### C UU, ADDONUAPLUS #### [address] Squamous Epithelial Cell,Urine 1-2 Normal 0-2 [facility] Comment on above: Order Comment: Name Collection Type:: Clean-Voided Midstream Performed By: #### C UU, ADDONUAPLUS #### [address] Urobilinogen,Urine Normal Normal Normal [facility] Comment on above: Order Comment: Name Collection Type:: Clean-Voided Midstream Performed By: #### C UU, ADDONUAPLUS #### [place] [address] [place] WBC,Urine 1-2 Normal 0-4 [facility] Comment on above: Order Comment: Name Collection Type:: Clean-Voided Midstream Performed By: #### C UU, ADDONUAPLUS #### [address] EBS A1C with Estimated [address] [place] martinez 12-20-2024 Glucose [Mass/Vol] 117 mg/dL Normal [facility] Comment on above: Result Comment: PERF ORMED BY: [place] [address] PATHOLOGIST CONTROL CLERK SUBASSEMBLY BASSAM BRADFORD M.D. Performed By: #### P ILLAR CBC, EBS A1C, PILLAR LIPID, PILLAR CMP #### [address] Employee Comp Metabolic Pane eliezer 12-20-2024 Albumin [Mass/Vol] 4.2 g/dL Normal 3.5-5.7 [facility] Comment on above: Performed By: #### P ILLAR CBC, EBS A1C, PILLAR LIPID, PILLAR CMP #### [address] GFR/1.73 sq M.predicted MDRD (S/P/Bld) [Vol rate/Area] mL/min/{1.73_m2} Normal [facility] Comment on above: Performed By: #### P ILLAR CBC, EBS A1C, PILLAR LIPID, PILLAR CMP #### [address] Employee Complete Blood Coun ton 12-20-2024 Mean Corpuscular HGB Conc 33.6 g/dL Normal 32.0-35.0 [facility] Comment on above: Performed By: #### P ILLAR CBC, EBS A1C, PILLAR LIPID, PILLAR CMP #### [address] NRBC% 0.0 /100{WBC} Normal 0-0.5 [facility] Comment on above: Performed By: #### P ILLAR CBC, EBS A1C, PILLAR LIPID, PILLAR CMP #### [address] White Blood Count 7.4 [CFU]/mL Normal 3.8-11.6 [facility] Comment on above: Performed By: #### P ILLAR CBC, EBS A1C, PILLAR LIPID, PILLAR CMP #### [address] Employee Lipid Profileon LDL Cholesterol,Calculated 90 mg/dL Normal 0-100 [facility] Comment on above: Result Comment: LDL ATP III CLASSIFICATION LDL less than 100 mg/dL Optimal LDL 100-129 mg/dL Near or above optimal LDL 130-159 mg/dL Borderline high LDL 160-189 mg/dL High LDL greater than 189 mg/dL Very high Performed By: #### P ILLAR CBC, EBS A1C, PILLAR LIPID, PILLAR CMP #### [facility] [address] Triglyceride w/Reflex 178 mg/dL High 0-149 [facility] Comment on above: Result Comment: TRIG ATP III CLASSIFICATION TRIG less than 150 mg/dL Normal TRIG 150-199 mg/dL Borderline high TRIG 200-500 mg/dL High TRIG greater than 500 mg/dL Very high Standard traceable to the Center for Disease Conrtrol and Prevention (CDC) test method. Performed By: #### P ILLAR CBC, EBS A1C, PILLAR LIPID, PILLAR CMP #### [facility] [address] [place] [address] VLDL CHOLESTEROL 35 mg/dL Normal [facility] Comment on above: Performed By: #### P ILLAR CBC, EBS A1C, PILLAR LIPID, PILLAR CMP #### [facility] [address] [place] [address] Eosinophils [#/volume] in Bl ood by Automated countOrdered By: Renny Walton on 12-20-2024 Eosinophils (Bld) [#/Vol] 0.1 10*3/uL Normal 0.0-0.45 [facility] Comment on above: Performed By: #### P ILLAR CBC, EBS A1C, PILLAR LIPID, PILLAR CMP #### [facility] [address] [place] [address] [place] Eosinophils/100 leukocytes i n Blood by Automated countOrdered By: Renny Walton on 12-20-2024 Eosinophils/100 WBC (Bld) 1.6 % Normal . [facility] Comment on above: Performed By: #### P ILLAR CBC, EBS A1C, PILLAR LIPID, PILLAR CMP #### [facility] [address] [place] [address] Epithelial cells.squamous [# /area] in Urine sediment by Automated countOrdered By: Ceiclio Dumont on 12-20-2024 Epithelial cells.squamous Auto (Urine sed) [#/Area] 1-2 [HPF] 0-2 [facility] Erythrocyte distribution wid th [Ratio] by Automated countOrdered By: Renny Walton on 12-20-2024 Erythrocyte distribution width (RBC) [Ratio] 13.3 % Normal 11.9-15.3 [facility] Comment on above: Performed By: #### P ILLAR CBC, EBS A1C, PILLAR LIPID, PILLAR CMP #### [facility] [address] [place] [address] Erythrocytes [#/area] in Uri ne sediment by Automated countOrdered By: Cecilio Dumont on 12-20-2024 RBC Auto (Urine sed) [#/Area] 1-2 [HPF] 0-4 [facility] Erythrocytes [#/volume] in B lood by Automated countOrdered By: Renny Walton on 12-20-2024 RBC (Bld) [#/Vol] 4.84 10*6/uL Normal 3.60-5.00 [facility] Comment on above: Performed By: #### P ILLAR CBC, EBS A1C, PILLAR LIPID, PILLAR CMP #### [facility] [address] [place] [address] Glucose [Mass/volume] in Ser um or PlasmaOrdered By: Renny Walton on 12-20-2024 Glucose [Mass/Vol] 111 mg/dL High 70-100 [facility] Comment on above: ADA recommended refe rence range Result Comment: ADA recommended reference range Performed By: #### P ILLAR CBC, EBS A1C, PILLAR LIPID, PILLAR CMP #### [facility] [address] [place] [address] [place] Glucose [Mass/volume] in Uri ne by Test stripOrdered By: Cecilio Dumont on 12-20-2024 Glucose Test strip (U) [Mass/Vol] Normal mg/dL Normal [facility] Hematocrit [Volume Fraction] of Blood by Automated countOrdered By: Renny Walton on 12-20-2024 Hematocrit (Bld) [Volume fraction] 43.0 % Normal 34.0-46.4 [facility] Comment on above: Performed By: #### P ILLAR CBC, EBS A1C, PILLAR LIPID, PILLAR CMP #### [facility] [address] [place] [address] Hemoglobin A1c measurementOr dered By: Renny Walton on 12-20-2024 HbA1c (Bld) [Mass fraction] 5.7 % High 4.3-5.6 [facility] Comment on above: Increased risk for d iabetes: 5.7 - 6.4diabetes: >6.4glycemic control for adults with diabetes: <7.0 Result Comment: Incr eased risk for diabetes: 5.7 - 6.4 diabetes: >6.4 glycemic control for adults with diabetes: <7.0 Performed By: #### P ILLAR CBC, EBS A1C, PILLAR LIPID, PILLAR CMP #### [facility] [address] [place] [address] Hemoglobin Test strip Ql (U) Ordered By: Cecilio Dumont on 12-20-2024 Hemoglobin Ql (U) 1+ High Negative [facility] Hemoglobin [Mass/volume] in BloodOrdered By: Renny Walton on 12-20-2024 Hemoglobin (Bld) [Mass/Vol] 14.5 g/dL Normal 11.8-15.4 [facility] Comment on above: Performed By: #### P ILLAR CBC, EBS A1C, PILLAR LIPID, PILLAR CMP #### [facility] [address] [place] [address] Hyaline casts [#/area] in Ur ine sediment by Automated countOrdered By: Cecilio Dumont on 12-20-2024 Hyaline casts Auto (Urine sed) [#/Area] None [LPF] 0-8 [facility] Ketones [Presence] in Urine by Test stripOrdered By: Cecilio Dumont on 12-20-2024 Ketones Ql (U) Negative Normal Negative [facility] Comment on above: Order Comment: Name Collection Type:: Clean-Voided Midstream Performed By: #### C UU, ADDMARIA FERNANDAUAPLUS #### [facility] [address] [place] [address] [place] Leukocyte esterase [Presence ] in Urine by Test stripOrdered By: Cecilio Dumont on 12-20-2024 Leukocyte esterase Test strip Ql (U) Negative Normal Negative [facility] Comment on above: Order Comment: Name Collection Type:: Clean-Voided Midstream Performed By: #### C UU, ADDONUAPLUS #### [facility] [address] [place] [address] [place] Leukocytes [#/area] in Urine sediment by Automated countOrdered By: Cecilio Dumont on 12-20-2024 WBC Auto (Urine sed) [#/Area] 1-2 [HPF] 0-4 [facility] Leukocytes [#/volume] correc rani for nucleated erythrocytes in Blood by Automated counOrdered By: Renny Walton on 12-20-2024 WBC corrected for nucl RBC Auto (Bld) [#/Vol] 7.4 10*3/uL 3.8-11.6 [facility] Leukocytes [#/volume] in Blo od by Automated countOrdered By: Renny Walton on 12-20-2024 WBC (Bld) [#/Vol] 7.4 10*3/uL Normal 3.8-11.6 [facility] Comment on above: Performed By: #### P ILLAR CBC, EBS A1C, PILLAR LIPID, PILLAR CMP #### [facility] [address] [place] [address] [place] Lymphocytes [#/volume] in Bl ood by Automated countOrdered By: Renny Walton on 12-20-2024 Lymphocytes (Bld) [#/Vol] 2.4 10*3/uL Normal 1.00-4.8 [facility] Comment on above: Performed By: #### P ILLAR CBC, EBS A1C, PILLAR LIPID, PILLAR CMP #### [facility] [address] [place] [address] [place] Lymphocytes/100 leukocytes i n Blood by Automated countOrdered By: Renny Walton on 12-20-2024 Lymphocytes/100 WBC (Bld) 32.1 % Normal . [facility] Comment on above: Performed By: #### P ILLAR CBC, EBS A1C, PILLAR LIPID, PILLAR CMP #### [facility] [address] [place] [address] [place] MCH [Entitic mass] by Automa rani countOrdered By: Renny Walton on 12-20-2024 MCH (RBC) [Entitic mass] 29.9 pg Normal 24.7-34.3 [facility] Comment on above: Performed By: #### P ILLAR CBC, EBS A1C, PILLAR LIPID, PILLAR CMP #### [facility] [address] MCHC Auto (RBC) [Mass/Vol]Or dered By: Renny Walton on 12-20-2024 MCHC (RBC) [Mass/Vol] 33.6 g/dL 32.0-35.0 [facility] MCV [Entitic volume] by Auto mated countOrdered By: Renny Walton on 12-20-2024 MCV (RBC) [Entitic vol] 88.8 fL Normal 80-100 [facility] Comment on above: Performed By: #### P ILLAR CBC, EBS A1C, PILLAR LIPID, PILLAR CMP #### [facility] [address] [place] [address] [place] Monocytes [#/volume] in Bloo d by Automated countOrdered By: Renny Walton on 12-20-2024 Monocytes (Bld) [#/Vol] 0.6 10*3/uL Normal 0.0-0.8 [facility] Comment on above: Performed By: #### P ILLAR CBC, EBS A1C, PILLAR LIPID, PILLAR CMP #### [facility] [address] [place] [address] [place] Monocytes/100 leukocytes in Blood by Automated countOrdered By: Renny Walton on 12-20-2024 Monocytes/100 WBC (Bld) 8.6 % Normal . [facility] Comment on above: Performed By: #### P ILLAR CBC, EBS A1C, PILLAR LIPID, PILLAR CMP #### [facility] [address] [place] [address] [place] Mucus [Presence] in Urine by AutomatedOrdered By: Cecilio Dumont on 12-20-2024 Mucus Auto Ql (U) Rare [LPF] [facility] Neutrophils [#/volume] in Bl ood by Automated countOrdered By: Renny Walton on 12-20-2024 Neutrophils (Bld) [#/Vol] 4.2 10*3/uL Normal 1.8-7.7 [facility] Comment on above: Performed By: #### P ILLAR CBC, EBS A1C, PILLAR LIPID, PILLAR CMP #### [facility] [address] [place] [address] [place] Neutrophils/100 leukocytes i n Blood by Automated countOrdered By: Renny Walton on 12-20-2024 Neutrophils/100 WBC (Bld) 56.6 % Normal . [facility] Comment on above: Performed By: #### P ILLAR CBC, EBS A1C, PILLAR LIPID, PILLAR CMP #### [facility] [address] Nitrite Test strip Ql (U)Ord ered By: Cecilio Dumont on 12-20-2024 Nitrite Ql (U) Negative Negative [facility] No Panel InformationOrdered By: Renny Walton on 12-20-2024 Estimated GFR (CKD-EPI) > 60.0 mL/Min [facility] Creatinine Clearance (Chem N/A [facility] Nucleated erythrocytes [Pres ence] in Blood by Automated countOrdered By: Renny Walton on 12-20-2024 Nucleated RBC Auto Ql (Bld) 0.0 /100{WBC} 0-0.5 [facility] Platelet mean volume [Entiti c volume] in Blood by Automated countOrdered By: Rneny Walton on 12-20-2024 Platelet mean volume (Bld) [Entitic vol] 6.7 fL Normal 6.3-10.7 [facility] Comment on above: Performed By: #### P ILLAR CBC, EBS A1C, PILLAR LIPID, PILLAR CMP #### [facility] [address] [place] [address] [place] Platelets [#/volume] in Bloo d by Automated countOrdered By: Renny Walton on 12-20-2024 Platelets (Bld) [#/Vol] 332 10*3/uL Normal 150-450 [facility] Comment on above: Performed By: #### P ILLAR CBC, EBS A1C, PILLAR LIPID, PILLAR CMP #### [facility] [address] Potassium [Moles/volume] in Serum or PlasmaOrdered By: Renny Walton on 12-20-2024 Potassium [Moles/Vol] 4.0 mmol/L Normal 3.5-5.1 [facility] Comment on above: Performed By: #### P ILLAR CBC, EBS A1C, PILLAR LIPID, PILLAR CMP #### [facility] [address] Protein Test strip (U) [Mass /Vol]Ordered By: Cecilio Dumont on 12-20-2024 Protein (U) [Mass/Vol] Negative Negative [facility] Protein [Mass/volume] in Ser um or PlasmaOrdered By: Renny Walton on 12-20-2024 Protein [Mass/Vol] 7.0 g/dL Normal 6.4-8.9 [facility] Comment on above: Performed By: #### P ILLAR CBC, EBS A1C, PILLAR LIPID, PILLAR CMP #### [facility] [address] Serum globulin measurement b y calculation (mass/volume)Ordered By: Renny Walton on 12-20-2024 Globulin (S) [Mass/Vol] 2.8 g/dL [facility] Comment on above: Performed By: #### P ILLAR CBC, EBS A1C, PILLAR LIPID, PILLAR CMP #### [facility] [address] Serum or plasma albumin/glob ulin mass ratioOrdered By: Renny Walton on 12-20-2024 Albumin/Globulin [Mass ratio] 1.5 {ratio} [facility] Comment on above: Performed By: #### P ILLAR CBC, EBS A1C, PILLAR LIPID, PILLAR CMP #### [facility] [address] Serum or plasma anion gap de terminationOrdered By: Renny Walton on 12-20-2024 Anion gap [Moles/Vol] 9.1 mmol/L Normal 6.0-15.0 [facility] Comment on above: Performed By: #### P ILLAR CBC, EBS A1C, PILLAR LIPID, PILLAR CMP #### [facility] [address] Serum or plasma total choles terol/high density lipoprotein (HDL) cholesterol mass ratOrdered By: Renny Walton on 12-20-2024 Cholesterol.total/Chol esterol in HDL [Mass ratio] 3.4 {ratio} Normal <5.0 [facility] Comment on above: Result Comment: PERF ORMED BY: [place] [address] PATHOLOGIST CONTROL CLERK SUBASSEMBLY BASSAM BRADFORD M.D. Performed By: #### P ILLAR CBC, EBS A1C, PILLAR LIPID, PILLAR CMP #### [facility] [address] Sodium [Moles/volume] in Ser um or PlasmaOrdered By: Renny Walton on 12-20-2024 Sodium [Moles/Vol] 140 mmol/L Normal 136-145 [facility] Comment on above: Performed By: #### P ILLAR CBC, EBS A1C, PILLAR LIPID, PILLAR CMP #### [facility] [address] Specific gravity Test strip (U) [Rel density]Ordered By: Cecilio Dumont on 12-20-2024 Specific gravity (U) [Rel density] 1.020 1.001-1.03 0 [facility] Triglyceride [Mass/volume] i n Serum or PlasmaOrdered By: Renny Walton on 12-20-2024 Triglyceride [Mass/Vol] 178 mg/dL High 0-149 [facility] Comment on above: TRIG ATP III CLASSIF ICATIONTRIG less than 150 mg/dL NormalTRIG 150-199 mg/dL Borderline highTRIG 200-500 mg/dL High TRIG greater than 500 mg/dL Very highStandard traceable to the Center for Disease Conrtrol and Prevention (CDC) test method. Urea nitrogen [Mass/volume] in Serum or PlasmaOrdered By: Renny Walton on 12-20-2024 Urea nitrogen [Mass/Vol] 20 mg/dL Normal 7-25 [facility] Comment on above: Performed By: #### P ILLAR CBC, EBS A1C, PILLAR LIPID, PILLAR CMP #### [facility] [address] Urine Cultureon 12-20-2024 Bacteria identified Cx Nom (U) Urine Culture Results >100,000 col/ml Mixed Bacterial Skin Contaminants 2 Days PERFORMED BY: [place] [address] PATHOLOGIST CONTROL CLERK SUBASSEMBLY BASSAM BRADFORD M.D. Normal [facility] Comment on above: Performed By: #### C UU, ADDONUAPLUS ####[facility] [id number] Urine cultureOrdered By: Yg Dumont on 12-20-2024 Bacteria identified Cx Nom (U) [facility] Urobilinogen Test strip (U) [Mass/Vol]Ordered By: Cecilio Dumont on 12-20-2024 Urobilinogen (U) [Mass/Vol] Normal mg/dL Normal [facility] pH of Urine by Test stripOrd ered By: Cecilio Dumont on 12-20-2024 pH (U) 5.0 [pH] Normal 5.0-9.0 [facility] Comment on above: Order Comment: Name Collection Type:: Clean-Voided Midstream Performed By: #### C UU, ADDONUAPLUS #### [facility] [address] Ambulatory Visit Summaryon 0 12-03-2024 Ambulatory Visit Summary Ambulatory Visit Summary RUFUS NANCY Estrada :1960 Visit Date:12/03/2024 Ambulatory Visit [...] signed up for this yet, please contact neo[employer]ae[employer] at [phone] to get signed up today. Language Information Language assistance services are available as needed. Normal [facility] Appearance of UrineOrdered B y: Cecilio Dumont on 12-03-2024 Appearance (U) Clear Normal Clear [facility] Comment on above: Order Comment: Name Collection Type:: Clean-Voided Midstream Performed By: #### A DDONUAPLUS, CUU #### [place] [address] [place] Bacteria [Presence] in Urine by AutomatedOrdered By: Cecilio Dumont on 12-03-2024 Bacteria Auto Ql (U) None seen [HPF] None Seen [facility] Bilirubin Test strip Ql (U)O rdered By: Cecilio Dumont on 12-03-2024 Bilirubin Ql (U) Negative Negative [facility] Color of Urine by AutoOrdere d By: Cecilio Dumont on 12-03-2024 Color (U) Light-yellow Normal Yellow [facility] Comment on above: Order Comment: Name Collection Type:: Clean-Voided Midstream Performed By: #### A DDONUAPLUS, CUU #### [facility] [address] [place], [place] [id number] [place] Dipstick and Microscopicon 0 12-03-2024 Bacteria,Urine None Seen Normal None Seen [facility] Comment on above: Order Comment: Name Collection Type:: Clean-Voided Midstream Performed By: #### A DDONUAPLUS, CUU #### [facility] 1[address] [place] [address] [place] Bilirubin,Urine Negative Normal Negative [facility] Comment on above: Order Comment: Name Collection Type:: Clean-Voided Midstream Performed By: #### A DDONUAPLUS, CUU #### [facility] [address] [place] [id number] [place] Glucose Ql (U) Normal Normal Normal [facility] Comment on above: Order Comment: Name Collection Type:: Clean-Voided Midstream Performed By: #### A DDONUAPLUS, CUU #### [facility] [address] [place] [id number] [place] Hyaline Casts,Urine None Normal 0-8 [facility] Comment on above: Order Comment: Name Collection Type:: Clean-Voided Midstream Result Comment: PERF ORMED BY: [place] [address] PATHOLOGIST CONTROL CLERK SUBASSEMBLY BASSAM BRADFORD M.D. Performed By: #### A DDONUAPLUS, CUU #### [place] [id number] [place] Nitrite,Urine Negative Normal Negative [facility] Comment on above: Order Comment: Name Collection Type:: Clean-Voided Midstream Performed By: #### A DDONUAPLUS, CUU #### [place] [id number] [place] Occult Blood,Urine Negative Normal Negative [facility] Comment on above: Order Comment: Name Collection Type:: Clean-Voided Midstream Performed By: #### A DDONUAPLUS, CUU #### [place] [address] [place] Protein,Urine Negative Normal Negative [facility] Comment on above: Order Comment: Name Collection Type:: Clean-Voided Midstream Performed By: #### A DDONUAPLUS, CUU #### [facility] [address] [place] [id number] [place] RBC,Urine None Seen Normal 0-4 [facility] Comment on above: Order Comment: Name Collection Type:: Clean-Voided Midstream Performed By: #### A DDONUAPLUS, CUU #### [facility] [address] Specificy [place]ry[place],Urine 1.011 Normal 1.001-1.03 0 [facility] Comment on above: Order Comment: Name Collection Type:: Clean-Voided Midstream Performed By: #### A DDONUAPLUS, CUU #### [address] Squamous Epithelial Cell,Urine 1-2 Normal 0-2 [facility] Comment on above: Order Comment: Name Collection Type:: Clean-Voided Midstream Performed By: #### A DDONUAPLUS, CUU #### [address] Urobilinogen,Urine Normal Normal Normal [facility] Comment on above: Order Comment: Name Collection Type:: Clean-Voided Midstream Performed By: #### A DDONUAPLUS, CUU #### [address] WBC,Urine 1-2 Normal 0-4 [facility] Comment on above: Order Comment: Name Collection Type:: Clean-Voided Midstream Performed By: #### A DDONUAPLUS, CUU #### [address] Epithelial cells.squamous [# /area] in Urine sediment by Automated countOrdered By: Cecilio Dumont on 12-03-2024 Epithelial cells.squamous Auto (Urine sed) [#/Area] 1-2 [HPF] 0-2 [facility] Erythrocytes [#/area] in Uri ne sediment by Automated countOrdered By: Cecilio Dumont on 12-03-2024 RBC Auto (Urine sed) [#/Area] None seen [HPF] 0-4 [facility] Glucose [Mass/volume] in Uri ne by Test stripOrdered By: Cecilio Dumont on 12-03-2024 Glucose Test strip (U) [Mass/Vol] Normal mg/dL Normal [facility] Hemoglobin Test strip Ql (U) Ordered By: Cecilio Dumont on 12-03-2024 Hemoglobin Ql (U) Negative Negative [facility] Hyaline casts [#/area] in Ur ine sediment by Automated countOrdered By: Cecilio Dumont on 12-03-2024 Hyaline casts Auto (Urine sed) [#/Area] None [LPF] 0-8 [facility] Ketones [Presence] in Urine by Test stripOrdered By: Cecilio Dumont on 12-03-2024 Ketones Ql (U) Negative Normal Negative [facility] Comment on above: Order Comment: Name Collection Type:: Clean-Voided Midstream Performed By: #### A DDONUAPLUS, CUU #### [place] [address] [place] Leukocyte esterase [Presence ] in Urine by Test stripOrdered By: Cecilio Dumont on 12-03-2024 Leukocyte esterase Test strip Ql (U) Negative Normal Negative [facility] Comment on above: Order Comment: Name Collection Type:: Clean-Voided Midstream Performed By: #### A DDONUAPLUS, CUU #### [facility] [address] [place] [address] [place] Leukocytes [#/area] in Urine sediment by Automated countOrdered By: Cecilio Dumont on 12-03-2024 WBC Auto (Urine sed) [#/Area] 1-2 [HPF] 0-4 [facility] Nitrite Test strip Ql (U)Ord ered By: Cecilio Dumont on 12-03-2024 Nitrite Ql (U) Negative Negative [facility] Protein Test strip (U) [Mass /Vol]Ordered By: Cecilio Dumont on 12-03-2024 Protein (U) [Mass/Vol] Negative Negative [facility] Specific gravity Test strip (U) [Rel density]Ordered By: Cecilio Dumont on 12-03-2024 Specific gravity (U) [Rel density] 1.011 1.001-1.03 0 [facility] Urine Cultureon 12-03-2024 Bacteria identified Cx Nom (U) >100,000 colonies/ml mixed bacterial skin contaminants 2 Days PERFORMED BY: [place] [address] PATHOLOGIST CONTROL CLERK SUBASSEMBLY BASSAM BRADFORD M.D. Normal [facility] Comment on above: Performed By: #### A DDONUAPLUS, CUU #### [facility] [address] [place] [address] Urine cultureOrdered By: Yg Dumont on 12-03-2024 Bacteria identified Cx Nom (U) 2 Days [facility] Urobilinogen Test strip (U) [Mass/Vol]Ordered By: Cecilio Dumont on 12-03-2024 Urobilinogen (U) [Mass/Vol] Normal mg/dL Normal [facility] pH of Urine by Test stripOrd ered By: Cecilio Dumont on 12-03-2024 pH (U) 5.5 [pH] Normal 5.0-9.0 [facility] Comment on above: Order Comment: Name Collection Type:: Clean-Voided Midstream Performed By: #### A DDONUAPLUS, CUU #### [facility] [address] [place] [address] US abdomen limitedon 025 US abdomen limited [facility] [place] [address] [place] [address] Ultrasound Report Signed Patient: Nancy Hooper MR#: [id number] 68 : 1960 Acct:[id number] Age/Sex: 64 / F ADM Date: 11/23/24 Loc: Room: Type: [facility] Attending Dr: Cecilio Dumont MD Ordering [...] Degroot M.D. 11/23/2024 5:13 PM Dictation Location: [place] [address] Tech: Ramila Su Transcribed By: ADAM 11/23/241712 Dictated By: Shai Degroot II, MD 11/23/241711 Signed By: 11/23/241712 Normal [facility] Alanine aminotransferase [En zymatic activity/volume] in Serum or PlasmaOrdered By: Cecilio Dumont on 11-21-2024 ALT [Catalytic activity/Vol] 15 U/L Normal 7-52 [facility] Comment on above: Performed By: #### A MY, CMP, CBC, LIPASE ####[facility] [address] [place] [address] [place] Albumin [Mass/volume] in Ser um or Plasma by Bromocresol green (BCG) dye binding methoOrdered By: Cecilio Dumont on 11-21-2024 Albumin BCG dye [Mass/Vol] 4.1 g/dL 3.5-5.7 [facility] Alkaline phosphatase [Enzyma tic activity/volume] in Serum or PlasmaOrdered By: Cecilio Dumont on 11-21-2024 ALP [Catalytic activity/Vol] 57 U/L Normal 34-104 [facility] Comment on above: Performed By: #### A MY, CMP, CBC, LIPASE ####[facility] [place] [address] [place] Amylase [Enzymatic activity/ volume] in Serum or PlasmaOrdered By: Cecilio Dumont on 11-21-2024 Amylase [Catalytic activity/Vol] 34 U/L Normal 29-103 [facility] Comment on above: Performed By: #### A MY, CMP, CBC, LIPASE ####[facility] [address] [place] [address] [place] Aspartate aminotransferase [ Enzymatic activity/volume] in Serum or PlasmaOrdered By: Cecilio Dumont on 11-21-2024 AST [Catalytic activity/Vol] 12 U/L Low 13-39 [facility] Comment on above: Performed By: #### A MY, CMP, CBC, LIPASE ####[address] Basophils [#/volume] in Bloo d by Automated countOrdered By: Cecilio Dumont on 11-21-2024 Basophils (Bld) [#/Vol] 0.1 10*3/uL Normal 0.0-0.2 [facility] Comment on above: Result Comment: PERF ORMED BY: [facility] [address] [place] [id number] PATHOLOGIST CONTROL CLERK SUBASSEMBLY BASSAM BRADFORD M.D. Performed By: #### A MY, CMP, CBC, LIPASE ####[address] Basophils/100 leukocytes in Blood by Automated countOrdered By: Cecilio Dumont on 11-21-2024 Basophils/100 WBC (Bld) 1.0 % Normal . [facility] Comment on above: Performed By: #### A MY, CMP, CBC, LIPASE ####[address] Bilirubin.total [Mass/volume ] in Serum or PlasmaOrdered By: Cecilio Dumont on 11-21-2024 Bilirubin [Mass/Vol] 0.3 mg/dL Normal 0.3-1.0 [facility] Comment on above: Performed By: #### A MY, CMP, CBC, LIPASE ####[place] [id number] [facility] Calcium [Mass/volume] in Ser um or PlasmaOrdered By: Cecilio Dumont on 11-21-2024 Calcium [Mass/Vol] 9.2 mg/dL Normal 8.6-10.3 [facility] Comment on above: Performed By: #### A MY, CMP, CBC, LIPASE ####[address] Carbon dioxide, total [Moles /volume] in Serum or PlasmaOrdered By: Cecilio Cheikh on 11-21-2024 CO2 [Moles/Vol] 29.6 mmol/L Normal 21.0-31.0 [facility] Comment on above: Performed By: #### A MY, CMP, CBC, LIPASE ####[address] Chloride [Moles/volume] in S genaro or PlasmaOrdered By: Cecilio Dumont on 11-21-2024 Chloride [Moles/Vol] 107 mmol/L Normal 98-107 [facility] Comment on above: Performed By: #### A MY, CMP, CBC, LIPASE ####[address] Complete Blood Count Auto Di ffon 11-21-2024 Mean Corpuscular HGB Conc 33.4 g/dL Normal 32.0-35.0 [facility] Comment on above: Performed By: #### A MY, CMP, CBC, LIPASE ####[address] NRBC% 0.1 /100{WBC} Normal 0-0.5 [facility] Comment on above: Performed By: #### A MY, CMP, CBC, LIPASE ####[address] White Blood Count 7.7 [CFU]/mL Normal 3.8-11.6 [facility] Comment on above: Performed By: #### A MY, CMP, CBC, LIPASE ####[place] [id number] [facility] Comprehensive Metabolic Pane eliezer 11-21-2024 Albumin [Mass/Vol] 4.1 g/dL Normal 3.5-5.7 [facility] Comment on above: Performed By: #### A MY, CMP, CBC, LIPASE ####[place] [id number] [facility] GFR/1.73 sq M.predicted MDRD (S/P/Bld) [Vol rate/Area] mL/min/{1.73_m2} Normal [facility] Comment on above: Performed By: #### A MY, CMP, CBC, LIPASE ####[address] Creatinine [Mass/volume] in Serum or PlasmaOrdered By: Cecilio Dumont on 11-21-2024 Creatinine [Mass/Vol] 0.58 mg/dL Low 0.60-1.20 [facility] Comment on above: Performed By: #### A MY, CMP, CBC, LIPASE ####[address] Eosinophils [#/volume] in Bl ood by Automated countOrdered By: Cecilio Dumont on 11-21-2024 Eosinophils (Bld) [#/Vol] 0.1 10*3/uL Normal 0.0-0.45 [facility] Comment on above: Performed By: #### A MY, CMP, CBC, LIPASE ####[address] Eosinophils/100 leukocytes i n Blood by Automated countOrdered By: Cecilio Dumont on 11-21-2024 Eosinophils/100 WBC (Bld) 1.2 % Normal . [facility] Comment on above: Performed By: #### A MY, CMP, CBC, LIPASE ####[address] Erythrocyte distribution wid th [Ratio] by Automated countOrdered By: Cecilio Dumont on 11-21-2024 Erythrocyte distribution width (RBC) [Ratio] 13.5 % Normal 11.9-15.3 [facility] Comment on above: Performed By: #### A MY, CMP, CBC, LIPASE ####[address] Erythrocytes [#/volume] in B lood by Automated countOrdered By: Cecilio Dumont on 11-21-2024 RBC (Bld) [#/Vol] 4.72 10*6/uL Normal 3.60-5.00 [facility] Comment on above: Performed By: #### A MY, CMP, CBC, LIPASE ####[place] [id number] [facility] Glucose [Mass/volume] in Ser um or PlasmaOrdered By: Cecilio Dumont on 11-21-2024 Glucose [Mass/Vol] 118 mg/dL High 70-100 [facility] Comment on above: ADA recommended refe rence rangeRandom Glucose Reference Range is dependent on time and content of last meal. Glucose of more than 200 mg/dL in a nonstressed, ambulatory subject supports the diagnosis of Diabetes Mellitus. Result Comment: Anthony om Glucose Reference Range is dependent on time and content of last meal. Glucose of more than 200 mg/dL in a nonstressed, ambulatory subject supports the diagnosis of Diabetes Mellitus. ADA recommended reference range Performed By: #### A MY, CMP, CBC, LIPASE ####[address] Hematocrit [Volume Fraction] of Blood by Automated countOrdered By: Cecilio Dumont on 11-21-2024 Hematocrit (Bld) [Volume fraction] 42.8 % Normal 34.0-46.4 [facility] Comment on above: Performed By: #### A MY, CMP, CBC, LIPASE ####[address] Hemoglobin [Mass/volume] in BloodOrdered By: Cecilio Dumont on 11-21-2024 Hemoglobin (Bld) [Mass/Vol] 14.3 g/dL Normal 11.8-15.4 [facility] Comment on above: Performed By: #### A MY, CMP, CBC, LIPASE ####[place] [id number] [facility] Leukocytes [#/volume] correc rani for nucleated erythrocytes in Blood by Automated counOrdered By: Cecilio Dumont on 11-21-2024 WBC corrected for nucl RBC Auto (Bld) [#/Vol] 7.7 10*3/uL 3.8-11.6 [facility] Leukocytes [#/volume] in Blo od by Automated countOrdered By: Cecilio Dumont on 11-21-2024 WBC (Bld) [#/Vol] 7.7 10*3/uL Normal 3.8-11.6 [facility] Comment on above: Performed By: #### A MY, CMP, CBC, LIPASE ####[address] Lipase [Enzymatic activity/v olume] in Serum or PlasmaOrdered By: Cecilio Dumont on 11-21-2024 Lipase [Catalytic activity/Vol] 43.0 U/L Normal 11.0-82.0 [facility] Comment on above: Result Comment: PERF ORMED BY: [facility] [address] [place] [address] PATHOLOGIST CONTROL CLERK SUBASSEMBLY BASSAM BRADFORD M.D. Performed By: #### A MY, CMP, CBC, LIPASE ####[address] Lymphocytes [#/volume] in Bl ood by Automated countOrdered By: Cecilio Dumont on 11-21-2024 Lymphocytes (Bld) [#/Vol] 2.1 10*3/uL Normal 1.00-4.8 [facility] Comment on above: Performed By: #### A MY, CMP, CBC, LIPASE ####[address] Lymphocytes/100 leukocytes i n Blood by Automated countOrdered By: Cecilio Dumont on 11-21-2024 Lymphocytes/100 WBC (Bld) 27.0 % Normal . [facility] Comment on above: Performed By: #### A MY, CMP, CBC, LIPASE ####[address] MCH [Entitic mass] by Automa rani countOrdered By: Cecilio Dumont on 11-21-2024 MCH (RBC) [Entitic mass] 30.2 pg Normal 24.7-34.3 [facility] Comment on above: Performed By: #### A MY, CMP, CBC, LIPASE ####[address] MCHC Auto (RBC) [Mass/Vol]Or dered By: Cecilio Dumont on 11-21-2024 MCHC (RBC) [Mass/Vol] 33.4 g/dL 32.0-35.0 [facility] MCV [Entitic volume] by Auto mated countOrdered By: Cecilio Reedangelito on 11-21-2024 MCV (RBC) [Entitic vol] 90.7 fL Normal 80-100 [facility] Comment on above: Performed By: #### A MY, CMP, CBC, LIPASE ####[address] Monocytes [#/volume] in Bloo d by Automated countOrdered By: Cecilio Dumont on 11-21-2024 Monocytes (Bld) [#/Vol] 0.7 10*3/uL Normal 0.0-0.8 [facility] Comment on above: Performed By: #### A MY, CMP, CBC, LIPASE ####[address] Monocytes/100 leukocytes in Blood by Automated countOrdered By: Cecilio Dumont on 11-21-2024 Monocytes/100 WBC (Bld) 9.0 % Normal . [facility] Comment on above: Performed By: #### A MY, CMP, CBC, LIPASE ####[address] Neutrophils [#/volume] in Bl ood by Automated countOrdered By: Cecilio Dumont on 11-21-2024 Neutrophils (Bld) [#/Vol] 4.8 10*3/uL Normal 1.8-7.7 [facility] Comment on above: Performed By: #### A MY, CMP, CBC, LIPASE ####[address] Neutrophils/100 leukocytes i n Blood by Automated countOrdered By: Cecilio Dumont on 11-21-2024 Neutrophils/100 WBC (Bld) 61.8 % Normal . [facility] Comment on above: Performed By: #### A MY, CMP, CBC, LIPASE ####[address] No Panel InformationOrdered By: Cecilio Dumont on 11-21-2024 Estimated GFR (CKD-EPI) > 60.0 mL/Min [facility] Creatinine Clearance (Chem N/A [facility] Nucleated erythrocytes [Pres ence] in Blood by Automated countOrdered By: Cecilio Dumont on 11-21-2024 Nucleated RBC Auto Ql (Bld) 0.1 /100{WBC} 0-0.5 [facility] Platelet mean volume [Entiti c volume] in Blood by Automated countOrdered By: Cecilio Dumont on 11-21-2024 Platelet mean volume (Bld) [Entitic vol] 7.1 fL Normal 6.3-10.7 [facility] Comment on above: Performed By: #### A MY, CMP, CBC, LIPASE ####[place] [id number] [address] Platelets [#/volume] in Bloo d by Automated countOrdered By: Cecilio Dumont on 11-21-2024 Platelets (Bld) [#/Vol] 334 10*3/uL Normal 150-450 [facility] Comment on above: Performed By: #### A MY, CMP, CBC, LIPASE ####[address] Potassium [Moles/volume] in Serum or PlasmaOrdered By: Cecilio Dumont on 11-21-2024 Potassium [Moles/Vol] 4.2 mmol/L Normal 3.5-5.1 [facility] Comment on above: Performed By: #### A MY, CMP, CBC, LIPASE ####[address] Protein [Mass/volume] in Ser um or PlasmaOrdered By: Cecilio Dumont on 11-21-2024 Protein [Mass/Vol] 7.0 g/dL Normal 6.4-8.9 [facility] Comment on above: Performed By: #### A MY, CMP, CBC, LIPASE ####[place] [id number] [facility] Serum globulin measurement b y calculation (mass/volume)Ordered By: Cecilio Dumont on 11-21-2024 Globulin (S) [Mass/Vol] 2.9 g/dL [facility] Comment on above: Performed By: #### A MY, CMP, CBC, LIPASE ####[address] Serum or plasma albumin/glob ulin mass ratioOrdered By: Cecilio Dumont on 11-21-2024 Albumin/Globulin [Mass ratio] 1.4 {ratio} [facility] Comment on above: Performed By: #### A MY, CMP, CBC, LIPASE ####[address] Serum or plasma anion gap de terminationOrdered By: Cecilio Dumont on 11-21-2024 Anion gap [Moles/Vol] 10.6 mmol/L Normal 6.0-15.0 [facility] Comment on above: Performed By: #### A MY, CMP, CBC, LIPASE ####[address] Sodium [Moles/volume] in Ser um or PlasmaOrdered By: Cecilio Dumont on 11-21-2024 Sodium [Moles/Vol] 143 mmol/L Normal 136-145 [facility] Comment on above: Performed By: #### A MY, CMP, CBC, LIPASE ####[address] Urea nitrogen [Mass/volume] in Serum or PlasmaOrdered By: Cecilio Dumont on 11-21-2024 Urea nitrogen [Mass/Vol] 25 mg/dL Normal 7-25 [facility] Comment on above: Performed By: #### A MY, CMP, CBC, LIPASE ####[address] foot LT wo conon 10-17-19 CT foot LT wo con [facility] [address] [place] [address] [place] [address] CT Scan Report Signed Patient: Nancy Hooper MR#: [id number] 68 : 1960 Acct:[id number] Age/Sex: 64 / F ADM Date: 10/16/24 Loc: CT Room: Type: [facility] Attending Dr: Cecilio Dumont MD Copies to: Cecilio Dumont MD Ordering Provider: Cecilio Dumont MD Date of Service: 10/16/24 CT/CT foot LT wo con: M79.672 ([id number]) CT/CT ankle LT wo con: M79.672 CT [...] Degroot M.D. 10/16/2024 4:27 PM Dictation Location: [place] [address] Transcribed By: ADAM 10/16/24 1627 Dictated By: Shai Degroot II, MD 10/16/24 1601 Signed By: 10/16/24 1627 Normal [facility] XR foot LT 2Von 09-27-2024 XR foot LT 2V [facility] Main [place] [id number] XRay Report Signed Patient: Nancy Hooper MR#: [id number] 68 : 1960 Acct:[id number] Age/Sex: 64 / F ADM Date: 09/27/24 Loc: XD Room: Type: [facility] Attending Dr: Cecilio Dumont MD Copies [...] Sanchez M.D. 09/27/2024 4:09 PM Dictation Location: [place] [address] Transcribed By: [facility] 09/27/24 1609 Dictated By: Juwan Sanchez DO 09/27/24 1608 Signed By: 09/27/24 1609 Normal [facility] Basophils Auto (Bld) [#/Vol] Ordered By: Renny Walton on 11-13-2023 Basophils (Bld) [#/Vol] 0.1 10*3/uL 0.0-0.2 [facility] Basophils/100 WBC Auto (Bld) Ordered By: Renny Walton on 11-13-2023 Basophils/100 WBC (Bld) 1.1 % . [facility] Calcium [Mass/volume] in Ser um or PlasmaOrdered By: Renny Walton on 11-13-2023 Calcium [Mass/Vol] 9.1 mg/dL 8.6-10.3 [facility] Carbon dioxide, total [Moles /volume] in Serum or PlasmaOrdered By: Renny Walton on 11-13-2023 CO2 [Moles/Vol] 28.1 mmol/L 21.0-31.0 [facility] Chloride [Moles/volume] in S genaro or PlasmaOrdered By: Renny Walton on 11-13-2023 Chloride [Moles/Vol] 107 mmol/L 98-107 [facility] Cholesterol [Mass/volume] in Serum or PlasmaOrdered By: Renny Walton on 11-13-2023 Cholesterol [Mass/Vol] 174 mg/dL 140-200 [facility] Comment on above: Chol less than 200 m g/dl low riskChol 201-239 mg/dl borderline riskChol 240 mg/dl and greater high risk Cholesterol in LDL Calc [Mas s/Vol]Ordered By: Renny Walton on 11-13-2023 Cholesterol in LDL [Mass/Vol] 98 mg/dL 0-100 [facility] Comment on above: LDL ATP III CLASSIFI CATIONLDL less than 100 mg/dL OptimalLDL 100-129 mg/dL Near or above optimalLDL 130-159 mg/dL Borderline highLDL 160-189 mg/dL HighLDL greater than 189 mg/dL Very high Cholesterol in VLDL Calc [Ma ss/Vol]Ordered By: Renny Walton on 11-13-2023 Cholesterol in VLDL [Mass/Vol] 24 mg/dL [facility] Creatinine [Mass/volume] in Serum or PlasmaOrdered By: Renny Walton on 11-13-2023 Creatinine [Mass/Vol] 0.62 mg/dL 0.60-1.20 [facility] Eosinophils Auto (Bld) [#/Vo l]Ordered By: Renny Walton on 11-13-2023 Eosinophils (Bld) [#/Vol] 0.1 10*3/uL 0.0-0.45 [facility] Eosinophils/100 WBC Auto (Bl d)Ordered By: Renny Walton on 11-13-2023 Eosinophils/100 WBC (Bld) 2.3 % . [facility] Erythrocyte distribution wid th Auto (RBC) [Ratio]Ordered By: Renny Walton on 11-13-2023 Erythrocyte distribution width (RBC) [Ratio] 13.6 % 11.9-15.3 [facility] Glucose [Mass/volume] in Ser um or PlasmaOrdered By: Renny Walton on 11-13-2023 Glucose [Mass/Vol] 103 mg/dL High 70-100 [facility] Comment on above: ADA recommended refe rence range Glucose mean value [Mass/vol ume] in Blood Estimated from glycated hemoglobinOrdered By: Renny Walton on 11-13-2023 Average glucose Estimated from glycated hemoglobin (Bld) [Mass/Vol] 111 mg/dL [facility] Hematocrit Auto (Bld) [Volum e fraction]Ordered By: Renny Walton on 11-13-2023 Hematocrit (Bld) [Volume fraction] 42.1 % 34.0-46.4 [facility] Hemoglobin [Mass/volume] in BloodOrdered By: Renny Walton on 11-13-2023 Hemoglobin (Bld) [Mass/Vol] 13.9 g/dL 11.8-15.4 [facility] Laboratory - Hematology and Cell countsOrdered By: Renny Wlaton on 11-13-2023 HbA1c (Bld) [Mass fraction] 5.5 % 4.3-5.6 [facility] Comment on above: Increased risk for d iabetes: 5.7 - 6.4diabetes: >6.4glycemic control for adults with diabetes: <7.0 Leukocytes [#/volume] correc rani for nucleated erythrocytes in Blood by Automated counOrdered By: Renny Walton on 11-13-2023 WBC corrected for nucl RBC Auto (Bld) [#/Vol] 5.8 10*3/uL 3.8-11.6 [facility] Lymphocytes Auto (Bld) [#/Vo l]Ordered By: Renny Walton on 11-13-2023 Lymphocytes (Bld) [#/Vol] 2.0 10*3/uL 1.00-4.8 [facility] Lymphocytes/100 WBC Auto (Bl d)Ordered By: Renny Walton on 11-13-2023 Lymphocytes/100 WBC (Bld) 34.5 % . [facility] MCH Auto (RBC) [Entitic mass ]Ordered By: Renny Walton on 11-13-2023 MCH (RBC) [Entitic mass] 29.7 pg 24.7-34.3 [facility] MCHC Auto (RBC) [Mass/Vol]Or dered By: Renny Walton on 11-13-2023 MCHC (RBC) [Mass/Vol] 32.9 g/dL 32.0-35.0 [facility] MCV Auto (RBC) [Entitic vol] Ordered By: Renny Walton on 11-13-2023 MCV (RBC) [Entitic vol] 90.2 fL 80-100 [facility] Monocytes Auto (Bld) [#/Vol] Ordered By: Renny Walton on 11-13-2023 Monocytes (Bld) [#/Vol] 0.5 10*3/uL 0.0-0.8 [facility] Monocytes/100 WBC Auto (Bld) Ordered By: Renny Walton on 11-13-2023 Monocytes/100 WBC (Bld) 8.0 % . [facility] Neutrophils Auto (Bld) [#/Vo l]Ordered By: Renny Walton on 11-13-2023 Neutrophils (Bld) [#/Vol] 3.1 10*3/uL 1.8-7.7 [facility] Neutrophils/100 WBC Auto (Bl d)Ordered By: Renny Walton on 11-13-2023 Neutrophils/100 WBC (Bld) 54.1 % . [facility] No Panel InformationOrdered By: Renny Walton on 11-13-2023 Estimated GFR (CKD-EPI) > 60.0 mL/Min [facility] Creatinine Clearance (Chem N/A [facility] Nucleated erythrocytes [Pres ence] in Blood by Automated countOrdered By: Renny Walton on 11-13-2023 Nucleated RBC Auto Ql (Bld) 0.1 /100{WBC} 0-0.5 [facility] Platelet mean volume Auto (B ld) [Entitic vol]Ordered By: Renny Walton on 11-13-2023 Platelet mean volume (Bld) [Entitic vol] 7.0 fL 6.3-10.7 [facility] Platelets Auto (Bld) [#/Vol] Ordered By: Renny Walton on 11-13-2023 Platelets (Bld) [#/Vol] 276 10*3/uL 150-450 [facility] Potassium [Moles/volume] in Serum or PlasmaOrdered By: Renny Walton on 11-13-2023 Potassium [Moles/Vol] 4.1 mmol/L 3.5-5.1 [facility] RBC Auto (Bld) [#/Vol]Ordere d By: Renny Walton on 11-13-2023 RBC (Bld) [#/Vol] 4.67 10*6/uL 3.60-5.00 [facility] Serum or plasma anion gap de terminationOrdered By: Renny Walton on 11-13-2023 Anion gap [Moles/Vol] 10.0 mmol/L 6.0-15.0 [facility] Serum or plasma high density lipoprotein (HDL) cholesterol measurementOrdered By: Renny Walton on 11-13-2023 Cholesterol in HDL [Mass/Vol] 51 mg/dL 23-92 [facility] Comment on above: HDL CHOL ATP-III CLA SSIFICATION Cardiovascular RiskHDL > or equal to 60 mg/dL LOWHDL < 40 mg/dL HIGH Serum or plasma total choles terol/high density lipoprotein (HDL) cholesterol mass ratOrdered By: Renny Walton on 11-13-2023 Cholesterol.total/Chol esterol in HDL [Mass ratio] 3.4 {ratio} <5.0 [facility] Sodium [Moles/volume] in Ser um or PlasmaOrdered By: Renny Walton on 11-13-2023 Sodium [Moles/Vol] 141 mmol/L 136-145 [facility] Thyrotropin [Units/volume] i n Serum or PlasmaOrdered By: Renny Walton on 11-13-2023 TSH Qn 1.75 m[IU]/L 0.45-5.33 [facility] Triglyceride [Mass/volume] i n Serum or PlasmaOrdered By: Renny Walton on 11-13-2023 Triglyceride [Mass/Vol] 123 mg/dL 0-149 [facility] Comment on above: TRIG ATP III CLASSIF ICATIONTRIG less than 150 mg/dL NormalTRIG 150-199 mg/dL Borderline highTRIG 200-500 mg/dL High TRIG greater than 500 mg/dL Very highStandard traceable to the Center for Disease Conrtrol and Prevention (CDC) test method. Urea nitrogen [Mass/volume] in Serum or PlasmaOrdered By: Renny Walton on 11-13-2023 Urea nitrogen [Mass/Vol] 24 mg/dL 12-06 [facility] WBC Auto (Bld) [#/Vol]Ordere d By: Renny Walton on 11-13-2023 WBC (Bld) [#/Vol] 5.8 10*3/uL 3.8-11.6 [facility] A1C HEMOGLOBINon 05-31-2023 HbA1c (Bld) [Mass fraction] 5.6 % [employer] Other HbA1c (Bld) [Mass fraction]o n 05-31-20[address] A1C H[address]OGLOB[address] [employer] Other CT ANGIO CORONARY ART WITH H [...] STRUCTURES ARE THE SOLE RESPONSIBILITY OF THE PAINTING WORKER SUBMITTING THE ORIGINAL REPORT (NOT THIS ADDENDUM) Signed by: Shai Tolentino 03/14/2023 1:47 PM -------- ORIGINAL REPORT -------- Dictation workstation: [id number] Interpreted By: Anthony Yo, STUDY: CT ANGIO CORONARY ART WITH HEARTFLOW IF SCORE >30%; 03/14/2023 12:00 pm INDICATION: Signs/Symptoms:r07.9. COMPARISON: None. ACCESSION NUMBER(S): [id number] ORDERING CLINICIAN: KAJAL MCCAULEY TECHNIQUE: Using multi-detector [...] coronary artery dise (more content not included)... Normal [facility] Comment on above: Order Comment: Order in [...] STRUCTURES ARE THE SOLE RESPONSIBILITY OF THE PAINTING WORKER SUBMITTING THE ORIGINAL REPORT (NOT THIS ADDENDUM) Signed by: Shai Tolentino 02/17/2023 2:28 PM -------- ORIGINAL REPORT -------- Dictation workstation: [id number] Interpreted By: Anthony Yo, STUDY: CT CARDIAC SCORING WO IV CONTRAST; 02/14/2023 9:00 am INDICATION: Signs/Symptoms:chest pain. COMPARISON: None. ACCESSION NUMBER(S): [id number] ORDERING CLINICIAN: ANNELIESE GARCIA TECHNIQUE: Using prospective [...] coronary heart disease events. According to the [place] [employer] Clinical Expert Consensus [...] modify other non-lipid coronary risk factors. Reference: [place] P et al. Circulation. 2007; 115:402-426 [employer] Operator: Dr. Anthony Yo, Date: 02/14/2023 10:23 am Signed by: Anthony Yo 02/14/2023 10:23 AM Dictation workstation: [id number] [facility] Calcium [Mass/volume] in Ser um or PlasmaOrdered By: Nabil Baker on 01-04-2023 Calcium [Mass/Vol] 9.1 mg/dL 8.6-10.3 [facility] Carbon dioxide, total [Moles /volume] in Serum or PlasmaOrdered By: Nabil Baker on 01-04-2023 CO2 [Moles/Vol] 25.7 mmol/L 21.0-31.0 [facility] Chloride [Moles/volume] in S genaro or PlasmaOrdered By: Nabil Baker on 01-04-2023 Chloride [Moles/Vol] 108 mmol/L 98-107 [facility] Cholesterol [Mass/volume] in Serum or PlasmaOrdered By: Nabil Baker on 01-04-2023 Cholesterol [Mass/Vol] 122 mg/dL 140-200 [facility] Comment on above: Chol less than 200 m g/dl low riskChol 201-239 mg/dl borderline riskChol 240 mg/dl and greater high risk Cholesterol in LDL Calc [Mas s/Vol]Ordered By: Nabil Bakre on 01-04-2023 Cholesterol in LDL [Mass/Vol] 67 mg/dL 0-100 [facility] Comment on above: LDL ATP III CLASSIFI CATIONLDL less than 100 mg/dL OptimalLDL 100-129 mg/dL Near or above optimalLDL 130-159 mg/dL Borderline highLDL 160-189 mg/dL HighLDL greater than 189 mg/dL Very high Cholesterol in VLDL Calc [Ma ss/Vol]Ordered By: Nabil Baker on 01-04-2023 Cholesterol in VLDL [Mass/Vol] 15 mg/dL [facility] Creatinine [Mass/volume] in Serum or PlasmaOrdered By: Nabil Baker on 01-04-2023 Creatinine [Mass/Vol] 0.83 mg/dL 0.60-1.20 [facility] Glucose [Mass/volume] in Ser um or PlasmaOrdered By: Nabil Baker on 01-04-2023 Glucose [Mass/Vol] 101 mg/dL 70-100 [facility] Comment on above: ADA recommended refe rence rangeRandom Glucose Reference Range is dependent on time and content of last meal. Glucose of more than 200 mg/dL in a nonstressed, ambulatory subject supports the diagnosis of Diabetes Mellitus. Magnesium [Mass/volume] in S genaro or PlasmaOrdered By: Nabil Baker on 01-04-2023 Magnesium [Mass/Vol] 2.2 mg/dL 1.9-2.7 [facility] No Panel InformationOrdered By: Nabil Baker on 01-04-2023 Estimated GFR (CKD-EPI) > 60.0 mL/Min [facility] Creatinine Clearance (Chem 87.71 [facility] Potassium [Moles/volume] in Serum or PlasmaOrdered By: Nabil Baker on 01-04-2023 Potassium [Moles/Vol] 3.6 mmol/L 3.5-5.1 [facility] Serum or plasma anion gap de terminationOrdered By: Nabil Baker on 01-04-2023 Anion gap [Moles/Vol] 10.9 mmol/L 6.0-15.0 [facility] Serum or plasma high density lipoprotein (HDL) cholesterol measurementOrdered By: Nabil Baker on 01-04-2023 Cholesterol in HDL [Mass/Vol] 39 mg/dL [facility] Comment on above: HDL CHOL ATP-III CLA SSIFICATION Cardiovascular RiskHDL > or equal to 60 mg/dL LOWHDL < 40 mg/dL HIGH Serum or plasma total choles terol/high density lipoprotein (HDL) cholesterol mass ratOrdered By: Nabil Baker on 01-04-2023 Cholesterol.total/Chol esterol in HDL [Mass ratio] 3.1 {ratio} <5.0 [facility] Sodium [Moles/volume] in Ser um or PlasmaOrdered By: Nabil Baker on 01-04-2023 Sodium [Moles/Vol] 141 mmol/L 136-145 [facility] Triglyceride [Mass/volume] i n Serum or PlasmaOrdered By: Nabil Baker on 01-04-2023 Triglyceride [Mass/Vol] 78 mg/dL 0-149 [facility] Comment on above: TRIG ATP III CLASSIF [...] <= 0.01 ng/mL [Mass/Vol] 8.5 pg/mL 0.0-15.0 [facility] Urea nitrogen [Mass/volume] in Serum or PlasmaOrdered By: Nabil Baker on 01-04-2023 Urea nitrogen [Mass/Vol] 25 mg/dL 12-06 [facility] Activated partial thrombopla stin time (aPTT) in platelet poor plasma by coagulation aOrdered By: Erika Escobedo on 01-03-2023 aPTT Coag (PPP) [Time] 20.6 s 25.1-36.5 [facility] Alanine aminotransferase [En zymatic activity/volume] in Serum or PlasmaOrdered By: Erika Escobedo on 01-03-2023 ALT [Catalytic activity/Vol] 25 U/L [facility] Albumin [Mass/volume] in Ser um or Plasma by Bromocresol green (BCG) dye binding methoOrdered By: Erika Escobedo on 01-03-2023 Albumin BCG dye [Mass/Vol] 4.1 g/dL 3.5-5.7 [facility] Alkaline phosphatase [Enzyma tic activity/volume] in Serum or PlasmaOrdered By: Erika Escobedo on 01-03-2023 ALP [Catalytic activity/Vol] 55 U/L 34-104 [facility] Aspartate aminotransferase [ Enzymatic activity/volume] in Serum or PlasmaOrdered By: Erika Escobedo on 01-03-2023 AST [Catalytic activity/Vol] 20 U/L 13-39 [facility] Basophils Auto (Bld) [#/Vol] Ordered By: Erika Escobedo on 01-03-2023 Basophils (Bld) [#/Vol] 0.1 10*3/uL 0.0-0.2 [facility] Basophils/100 WBC Auto (Bld) Ordered By: Erika Escobedo on 01-03-2023 Basophils/100 WBC (Bld) 1.0 % . [facility] Bilirubin Test strip Ql (U)O rdered By: Erika Escobedo on 01-03-2023 Bilirubin Ql (U) Negative Negative [facility] Bilirubin.total [Mass/volume ] in Serum or PlasmaOrdered By: Erika Escobedo on 01-03-2023 Bilirubin [Mass/Vol] 0.4 mg/dL 0.3-1.0 [facility] Calcium [Mass/volume] in Ser um or PlasmaOrdered By: Erika Escobedo on 01-03-2023 Calcium [Mass/Vol] 9.3 mg/dL 8.6-10.3 [facility] Carbon dioxide, total [Moles /volume] in Serum or PlasmaOrdered By: Erika Escobedo on 01-03-2023 CO2 [Moles/Vol] 24.5 mmol/L 21.0-31.0 [facility] Chloride [Moles/volume] in S genaro or PlasmaOrdered By: Erika Escobedo on 01-03-2023 Chloride [Moles/Vol] 106 mmol/L 98-107 [facility] Color Auto (U)Ordered By: Cari Escobedo on 01-03-2023 Color (U) Yellow Yellow [facility] Creatine kinase [Enzymatic a ctivity/volume] in Serum or PlasmaOrdered By: Erika Escobedo on 01-03-2023 CK [Catalytic activity/Vol] 31 U/L 30-223 [facility] Creatinine [Mass/volume] in Serum or PlasmaOrdered By: Erika Escobedo on 01-03-2023 Creatinine [Mass/Vol] 0.82 mg/dL 0.60-1.20 [facility] Eosinophils Auto (Bld) [#/Vo l]Ordered By: Erika Escobedo on 01-03-2023 Eosinophils (Bld) [#/Vol] 0.1 10*3/uL 0.0-0.45 [facility] Eosinophils/100 WBC Auto (Bl d)Ordered By: Erika Escobedo on 01-03-2023 Eosinophils/100 WBC (Bld) 0.7 % . [facility] Erythrocyte distribution wid th Auto (RBC) [Ratio]Ordered By: Erika Escobedo on 01-03-2023 Erythrocyte distribution width (RBC) [Ratio] 12.8 % 11.9-15.3 [facility] Globulin Calc (S) [Mass/Vol] Ordered By: Erika Escobedo on 01-03-2023 Globulin (S) [Mass/Vol] 3.3 g/dL [facility] Glucose [Mass/volume] in Ser um or PlasmaOrdered By: Erika Escobedo on 01-03-2023 Glucose [Mass/Vol] 107 mg/dL 70-100 [facility] Comment on above: ADA recommended refe rence rangeRandom Glucose Reference Range is dependent on time and content of last meal. Glucose of more than 200 mg/dL in a nonstressed, ambulatory subject supports the diagnosis of Diabetes Mellitus. Hematocrit Auto (Bld) [Volum e fraction]Ordered By: Erika Escobedo on 01-03-2023 Hematocrit (Bld) [Volume fraction] 43.7 % 34.0-46.4 [facility] Hemoglobin [Mass/volume] in BloodOrdered By: Erika Escobedo on 01-03-2023 Hemoglobin (Bld) [Mass/Vol] 14.7 g/dL 11.8-15.4 [facility] INR in Platelet poor plasma by Coagulation assayOrdered By: Erika Escobedo on 01-03-2023 INR Coag (PPP) [Relative time] 1.1 {INR} [facility] Comment on above: INR Therapeutic Rang e [...] Auto test strip (U) [Mass/Vol]Ordered By: Erika Esocbedo on 01-03-2023 Ketones (U) [Mass/Vol] Negative Negative [facility] - CoagulationOrde red By: Erika Escobedo on 01-03-2023 PT Coag (PPP) [Time] 12.7 s 9.0-12.9 [facility] Leukocytes [#/volume] correc rani for nucleated erythrocytes in Blood by Automated counOrdered By: Erika Escobedo on 01-03-2023 WBC corrected for nucl RBC Auto (Bld) [#/Vol] 8.2 10*3/uL 3.8-11.6 [facility] Lymphocytes Auto (Bld) [#/Vo l]Ordered By: Erika Escobedo on 01-03-2023 Lymphocytes (Bld) [#/Vol] 1.2 10*3/uL 1.00-4.8 [facility] Lymphocytes/100 WBC Auto (Bl d)Ordered By: Erika Escobedo on 01-03-2023 Lymphocytes/100 WBC (Bld) 15.0 % . [facility] MCH Auto (RBC) [Entitic mass ]Ordered By: Erika Escobedo on 01-03-2023 MCH (RBC) [Entitic mass] 30.3 pg 24.7-34.3 [facility] MCHC Auto (RBC) [Mass/Vol]Or dered By: Erika Escobedo on 01-03-2023 MCHC (RBC) [Mass/Vol] 33.6 g/dL 32.0-35.0 [facility] MCV Auto (RBC) [Entitic vol] Ordered By: Erika Escobedo on 01-03-2023 MCV (RBC) [Entitic vol] 90.2 fL 80-100 [facility] Monocyte distribution width [Entitic volume] in Blood by AutomatedOrdered By: Erika Escobedo on 01-03-2023 Monocyte distribution width Auto (Bld) [Entitic vol] 22.07 % 0.00-20.00 [facility] Comment on above: For adults in ED, MD W > 20.0 may be associated with a higher risk of sepsis during the first 12 hrs of hospital admission Monocytes Auto (Bld) [#/Vol] Ordered By: Erika Escobedo on 01-03-2023 Monocytes (Bld) [#/Vol] 0.7 10*3/uL 0.0-0.8 [facility] Monocytes/100 WBC Auto (Bld) Ordered By: Erika Escobedo on 01-03-2023 Monocytes/100 WBC (Bld) 8.4 % . [facility] Natriuretic peptide B [Mass/ Vol]Ordered By: Erika Escobedo on 01-03-2023 Natriuretic peptide B (Bld) [Mass/Vol] 19.0 pg/mL 5-100 [facility] Neutrophils Auto (Bld) [#/Vo l]Ordered By: Erika Escobedo on 01-03-2023 Neutrophils (Bld) [#/Vol] 6.2 10*3/uL 1.8-7.7 [facility] Neutrophils/100 WBC Auto (Bl d)Ordered By: Erika Escobedo on 01-03-2023 Neutrophils/100 WBC (Bld) 74.9 % . [facility] Nitrite Test strip Ql (U)Ord ered By: Erika Escobedo on 01-03-2023 Nitrite Ql (U) Negative Negative [facility] No Panel InformationOrdered By: Erika Escobedo on 01-03-2023 Estimated GFR (CKD-EPI) > 60.0 mL/Min [facility] Creatinine Clearance (Chem 89.05 [facility] Nucleated erythrocytes [Pres ence] in Blood by Automated countOrdered By: Erika Escobedo on 01-03-2023 Nucleated RBC Auto Ql (Bld) 0.1 /100{WBC} 0-0.5 [facility] Platelet mean volume Auto (B ld) [Entitic vol]Ordered By: Erika Escobedo on 01-03-2023 Platelet mean volume (Bld) [Entitic vol] 7.2 fL 6.3-10.7 [facility] Platelets Auto (Bld) [#/Vol] Ordered By: Erika Escobedo on 01-03-2023 Platelets (Bld) [#/Vol] 270 10*3/uL 150-450 [facility] Potassium [Moles/volume] in Serum or PlasmaOrdered By: Erika Escobedo on 01-03-2023 Potassium [Moles/Vol] 3.5 mmol/L 3.5-5.1 [facility] Protein Auto test strip (U) [Mass/Vol]Ordered By: Erika Escobedo on 01-03-2023 Protein (U) [Mass/Vol] Negative Negative [facility] Protein [Mass/volume] in Ser um or PlasmaOrdered By: Erika Escobedo on 01-03-2023 Protein [Mass/Vol] 7.4 g/dL 6.4-8.9 [facility] RBC Auto (Bld) [#/Vol]Ordere d By: Erika Escobedo on 01-03-2023 RBC (Bld) [#/Vol] 4.84 10*6/uL 3.60-5.00 [facility] Serum or plasma albumin/glob ulin mass ratioOrdered By: Erika Escobedo on 01-03-2023 Albumin/Globulin [Mass ratio] 1.2 {ratio} [facility] Serum or plasma anion gap de terminationOrdered By: Erika Escobedo on 01-03-2023 Anion gap [Moles/Vol] 11.0 mmol/L 6.0-15.0 [facility] Sodium [Moles/volume] in Ser um or PlasmaOrdered By: Erika Escobedo on 01-03-2023 Sodium [Moles/Vol] 138 mmol/L 136-145 [facility] Specific gravity Auto test s trip (U) [Rel density]Ordered By: Erika Escobedo on 01-03-2023 Specific gravity (U) [Rel density] 1.024 1.001-1.03 0 [facility] Troponin I.cardiac [Mass/vol ume] in Serum or Plasma by Detection limit <= 0.01 ng/Ordered By: Erika Escobedo on 01-03-2023 Troponin I.cardiac DL <= 0.01 ng/mL [Mass/Vol] 13.3 pg/mL 0.0-15.0 [facility] Urea nitrogen [Mass/volume] in Serum or PlasmaOrdered By: Erika Escobedo on 01-03-2023 Urea nitrogen [Mass/Vol] 29 mg/dL 7-25 [facility] Urine clarity by refractomet ry automatedOrdered By: Erika Escobedo on 01-03-2023 Clarity Refractometry automated (U) Clear Clear [facility] Urine glucose measurement by automated test strip (mass/volume)Ordered By: Erika Escobedo on 01-03-2023 Glucose Auto test strip (U) [Mass/Vol] Normal mg/dL Normal [facility] Urine hemoglobin detection b y automated test stripOrdered By: Erika Escobedo on 01-03-2023 Hemoglobin Auto test strip Ql (U) Negative Negative [facility] Urine leukocyte esterase det ection by automated test stripOrdered By: Erika Escobedo on 01-03-2023 Leukocyte esterase Auto test strip Ql (U) Negative Negative [facility] Urobilinogen Auto test strip (U) [Mass/Vol]Ordered By: Erika Escobedo on 01-03-2023 Urobilinogen (U) [Mass/Vol] Normal mg/dL Normal [facility] WBC Auto (Bld) [#/Vol]Ordere d By: Erika Escobedo on 01-03-2023 WBC (Bld) [#/Vol] 8.2 10*3/uL 3.8-11.6 [facility] pH Auto test strip (U)Ordere d By: Erika Escobedo on 01-03-2023 pH (U) 6.5 [pH] 5.0-9.0 [facility] Alanine aminotransferase [En zymatic activity/volume] in Serum or PlasmaOrdered By: Renny Walton on 11-08-2022 ALT [Catalytic activity/Vol] 30 U/L 7-52 [facility] Albumin [Mass/volume] in Ser um or Plasma by Bromocresol green (BCG) dye binding methoOrdered By: Renny Walton on 11-08-2022 Albumin BCG dye [Mass/Vol] 4.3 g/dL 3.5-5.7 [facility] Alkaline phosphatase [Enzyma tic activity/volume] in Serum or PlasmaOrdered By: Renny Walton on 11-08-2022 ALP [Catalytic activity/Vol] 53 U/L 34-104 [facility] Aspartate aminotransferase [ Enzymatic activity/volume] in Serum or PlasmaOrdered By: Renny Walton on 11-08-2022 AST [Catalytic activity/Vol] 19 U/L 13-39 [facility] Basophils Auto (Bld) [#/Vol] Ordered By: Renny Walton on 11-08-2022 Basophils (Bld) [#/Vol] 0.1 10*3/uL 0.0-0.2 [facility] Basophils/100 WBC Auto (Bld) Ordered By: Renny Walton on 11-08-2022 Basophils/100 WBC (Bld) 1.0 % . [facility] Bilirubin.total [Mass/volume ] in Serum or PlasmaOrdered By: Renny Walton on 11-08-2022 Bilirubin [Mass/Vol] 0.7 mg/dL 0.3-1.0 [facility] Calcium [Mass/volume] in Ser um or PlasmaOrdered By: Renny Walton on 11-08-2022 Calcium [Mass/Vol] 9.1 mg/dL 8.6-10.3 [facility] Carbon dioxide, total [Moles /volume] in Serum or PlasmaOrdered By: Renny Walton on 11-08-2022 CO2 [Moles/Vol] 28.2 mmol/L 21.0-31.0 [facility] Chloride [Moles/volume] in S genaro or PlasmaOrdered By: Renny Walton on 11-08-2022 Chloride [Moles/Vol] 106 mmol/L 98-107 [facility] Cholesterol [Mass/volume] in Serum or PlasmaOrdered By: Renny Walton on 11-08-2022 Cholesterol [Mass/Vol] 167 mg/dL 140-200 [facility] Comment on above: Chol less than 200 m g/dl low riskChol 201-239 mg/dl borderline riskChol 240 mg/dl and greater high risk Cholesterol in LDL Calc [Mas s/Vol]Ordered By: Renny Walton on 11-08-2022 Cholesterol in LDL [Mass/Vol] 91 mg/dL 0-100 [facility] Comment on above: LDL ATP III CLASSIFI CATIONLDL less than 100 mg/dL OptimalLDL 100-129 mg/dL Near or above optimalLDL 130-159 mg/dL Borderline highLDL 160-189 mg/dL HighLDL greater than 189 mg/dL Very high Cholesterol in VLDL Calc [Ma ss/Vol]Ordered By: Renny Walton on 11-08-2022 Cholesterol in VLDL [Mass/Vol] 20 mg/dL [facility] Creatinine [Mass/volume] in Serum or PlasmaOrdered By: Renny Walton on 11-08-2022 Creatinine [Mass/Vol] 0.63 mg/dL 0.60-1.20 [facility] Eosinophils Auto (Bld) [#/Vo l]Ordered By: Renny Walton on 11-08-2022 Eosinophils (Bld) [#/Vol] 0.1 10*3/uL 0.0-0.45 [facility] Eosinophils/100 WBC Auto (Bl d)Ordered By: Renny Walton on 11-08-2022 Eosinophils/100 WBC (Bld) 1.0 % . [facility] Erythrocyte distribution wid th Auto (RBC) [Ratio]Ordered By: Renny Walton on 11-08-2022 Erythrocyte distribution width (RBC) [Ratio] 13.1 % 11.9-15.3 [facility] Globulin Calc (S) [Mass/Vol] Ordered By: Renny Walton on 11-08-2022 Globulin (S) [Mass/Vol] 2.9 g/dL [facility] Glucose [Mass/volume] in Ser um or PlasmaOrdered By: Renny Walton on 11-08-2022 Glucose [Mass/Vol] 110 mg/dL 70-100 [facility] Comment on above: ADA recommended refe rence range Glucose mean value [Mass/vol ume] in Blood Estimated from glycated hemoglobinOrdered By: Renny Walton on 11-08-2022 Average glucose Estimated from glycated hemoglobin (Bld) [Mass/Vol] 114 mg/dL [facility] Hematocrit Auto (Bld) [Volum e fraction]Ordered By: Renny Walton on 11-08-2022 Hematocrit (Bld) [Volume fraction] 42.2 % 34.0-46.4 [facility] Hemoglobin [Mass/volume] in BloodOrdered By: Renny Walton on 11-08-2022 Hemoglobin (Bld) [Mass/Vol] 14.2 g/dL 11.8-15.4 [facility] Laboratory - Hematology and Cell countsOrdered By: Renny Walton on 11-08-2022 HbA1c (Bld) [Mass fraction] 5.6 % 4.3-5.6 [facility] Comment on above: Increased risk for d iabetes: 5.7 - 6.4diabetes: >6.4glycemic control for adults with diabetes: <7.0 Leukocytes [#/volume] correc rani for nucleated erythrocytes in Blood by Automated counOrdered By: Renny Walton on 11-08-2022 WBC corrected for nucl RBC Auto (Bld) [#/Vol] 7.0 10*3/uL 3.8-11.6 [facility] Lymphocytes Auto (Bld) [#/Vo l]Ordered By: Renny Walton on 11-08-2022 Lymphocytes (Bld) [#/Vol] 1.9 10*3/uL 1.00-4.8 [facility] Lymphocytes/100 WBC Auto (Bl d)Ordered By: Renny Walton on 11-08-2022 Lymphocytes/100 WBC (Bld) 26.9 % . [facility] MCH Auto (RBC) [Entitic mass ]Ordered By: Renny Walton on 11-08-2022 MCH (RBC) [Entitic mass] 30.8 pg 24.7-34.3 [facility] MCHC Auto (RBC) [Mass/Vol]Or dered By: Renny Walton on 11-08-2022 MCHC (RBC) [Mass/Vol] 33.5 g/dL 32.0-35.0 [facility] MCV Auto (RBC) [Entitic vol] Ordered By: Renny Walton on 11-08-2022 MCV (RBC) [Entitic vol] 91.7 fL 80-100 [facility] Monocytes Auto (Bld) [#/Vol] Ordered By: Renny Walton on 11-08-2022 Monocytes (Bld) [#/Vol] 0.5 10*3/uL 0.0-0.8 [facility] Monocytes/100 WBC Auto (Bld) Ordered By: Renny Walton on 11-08-2022 Monocytes/100 WBC (Bld) 7.0 % . [facility] Neutrophils Auto (Bld) [#/Vo l]Ordered By: Renny Walton on 11-08-2022 Neutrophils (Bld) [#/Vol] 4.5 10*3/uL 1.8-7.7 [facility] Neutrophils/100 WBC Auto (Bl d)Ordered By: Renny Walton on 11-08-2022 Neutrophils/100 WBC (Bld) 64.1 % . [facility] No Panel InformationOrdered By: Renny Walton on 11-08-2022 Estimated GFR (CKD-EPI) > 60.0 mL/Min [facility] Nicotine Metabolite Negative Cutoff=25 [facility] Comment on above: Performed at: - [address] [id number] Director: Merary Mccartney MD, Phone: [phone] Pharmacy Creatinine Clearance (Chem N/A [facility] Nucleated erythrocytes [Pres ence] in Blood by Automated countOrdered By: Renny Walton on 11-08-2022 Nucleated RBC Auto Ql (Bld) 0.1 /100{WBC} 0-0.5 [facility] Platelet mean volume Auto (B ld) [Entitic vol]Ordered By: Renny Walton on 11-08-2022 Platelet mean volume (Bld) [Entitic vol] 7.0 fL 6.3-10.7 [facility] Platelets Auto (Bld) [#/Vol] Ordered By: Renny Walton on 11-08-2022 Platelets (Bld) [#/Vol] 304 10*3/uL 150-450 [facility] Potassium [Moles/volume] in Serum or PlasmaOrdered By: Renny Walton on 11-08-2022 Potassium [Moles/Vol] 3.9 mmol/L 3.5-5.1 [facility] Protein [Mass/volume] in Ser um or PlasmaOrdered By: Renny Walton on 11-08-2022 Protein [Mass/Vol] 7.2 g/dL 6.4-8.9 [facility] RBC Auto (Bld) [#/Vol]Ordere d By: Renny Walton on 11-08-2022 RBC (Bld) [#/Vol] 4.60 10*6/uL 3.60-5.00 [facility] Serum or plasma albumin/glob ulin mass ratioOrdered By: Renny Walton on 11-08-2022 Albumin/Globulin [Mass ratio] 1.5 {ratio} [facility] Serum or plasma anion gap de terminationOrdered By: Renny Walton on 11-08-2022 Anion gap [Moles/Vol] 11.7 mmol/L 6.0-15.0 [facility] Serum or plasma high density lipoprotein (HDL) cholesterol measurementOrdered By: Renny Walton on 11-08-2022 Cholesterol in HDL [Mass/Vol] 55 mg/dL 23-92 [facility] Comment on above: HDL CHOL ATP-III CLA SSIFICATION Cardiovascular RiskHDL > or equal to 60 mg/dL LOWHDL < 40 mg/dL HIGH Serum or plasma total choles terol/high density lipoprotein (HDL) cholesterol mass ratOrdered By: Renny Walton on 11-08-2022 Cholesterol.total/Chol esterol in HDL [Mass ratio] 3.0 {ratio} <5.0 [facility] Sodium [Moles/volume] in Ser um or PlasmaOrdered By: Renny Walton on 11-08-2022 Sodium [Moles/Vol] 142 mmol/L 136-145 [facility] Thyrotropin [Units/volume] i n Serum or PlasmaOrdered By: Renny Walton on 11-08-2022 TSH Qn 2.88 m[IU]/L 0.45-5.33 [facility] Triglyceride [Mass/volume] i n Serum or PlasmaOrdered By: Renny Walton on 11-08-2022 Triglyceride [Mass/Vol] 103 mg/dL 0-149 [facility] Comment on above: TRIG ATP III CLASSIF ICATIONTRIG less than 150 mg/dL NormalTRIG 150-199 mg/dL Borderline highTRIG 200-500 mg/dL High TRIG greater than 500 mg/dL Very highStandard traceable to the Center for Disease Conrtrol and Prevention (CDC) test method. Urea nitrogen [Mass/volume] in Serum or PlasmaOrdered By: Renny Walton on 11-08-2022 Urea nitrogen [Mass/Vol] 17 mg/dL 7- [facility] WBC Auto (Bld) [#/Vol]Ordere d By: Renny Walton on 11-08-2022 WBC (Bld) [#/Vol] 7.0 10*3/uL 3.8-11.6 [facility] Alanine aminotransferase [En zymatic activity/volume] in Serum or PlasmaOrdered By: Cecilio Dumont on 08-16-2022 ALT [Catalytic activity/Vol] 37 U/L 7-52 [facility] Albumin [Mass/volume] in Ser um or Plasma by Bromocresol green (BCG) dye binding methoOrdered By: Cecilio Dumont on 08-16-2022 Albumin BCG dye [Mass/Vol] 4.3 g/dL 3.5-5.7 [facility] Alkaline phosphatase [Enzyma tic activity/volume] in Serum or PlasmaOrdered By: Cecilio Dumont on 08-16-2022 ALP [Catalytic activity/Vol] 56 U/L 34-104 [facility] Aspartate aminotransferase [ Enzymatic activity/volume] in Serum or PlasmaOrdered By: Cecilio Dumont on 08-16-2022 AST [Catalytic activity/Vol] 22 U/L 13-39 [facility] Basophils Auto (Bld) [#/Vol] Ordered By: Cecilio Dumont on 08-16-2022 Basophils (Bld) [#/Vol] 0.1 10*3/uL 0.0-0.2 [facility] Basophils/100 WBC Auto (Bld) Ordered By: Cecilio Dumont on 08-16-2022 Basophils/100 WBC (Bld) 0.9 % . [facility] Bilirubin.total [Mass/volume ] in Serum or PlasmaOrdered By: Cecilio Dumont on 08-16-2022 Bilirubin [Mass/Vol] 0.6 mg/dL 0.3-1.0 [facility] Calcium [Mass/volume] in Ser um or PlasmaOrdered By: Cecilio Dumont 08-16-2022 Calcium [Mass/Vol] 9.4 mg/dL 8.6-10.3 [facility] Carbon dioxide, total [Moles /volume] in Serum or PlasmaOrdered By: Cecilio Dumont 08-16-2022 CO2 [Moles/Vol] 30.5 mmol/L 21.0-31.0 [facility] Chloride [Moles/volume] in S genaro or PlasmaOrdered By: Cecilio Dumont 08-16-2022 Chloride [Moles/Vol] 104 mmol/L 98-107 [facility] Creatinine [Mass/volume] in Serum or PlasmaOrdered By: Cecilio Dumont on 08-16-2022 Creatinine [Mass/Vol] 0.65 mg/dL 0.60-1.20 [facility] Eosinophils Auto (Bld) [#/Vo l]Ordered By: Cecilio Dumont on 08-16-2022 Eosinophils (Bld) [#/Vol] 0.1 10*3/uL 0.0-0.45 [facility] Eosinophils/100 WBC Auto (Bl d)Ordered By: Cecilio Dumont on 08-16-2022 Eosinophils/100 WBC (Bld) 1.1 % . [facility] Erythrocyte distribution wid th Auto (RBC) [Ratio]Ordered By: Cecilio Dumont on 08-16-2022 Erythrocyte distribution width (RBC) [Ratio] 13.0 % 11.9-15.3 [facility] Free thyroxine indexOrdered By: Cecilio Dumont on 08-16-2022 Free T4 index Calc [Mass/Vol] 2.5 1.2-4.9 [facility] Globulin Calc (S) [Mass/Vol] Ordered By: Cecilio Dumont on 08-16-2022 Globulin (S) [Mass/Vol] 3.0 g/dL [facility] Glucose [Mass/volume] in Ser um or PlasmaOrdered By: Cecilio Dumont on 08-16-2022 Glucose [Mass/Vol] 105 mg/dL 70-100 [facility] Comment on above: ADA recommended refe rence rangeRandom Glucose Reference Range is dependent on time and content of last meal. Glucose of more than 200 mg/dL in a nonstressed, ambulatory subject supports the diagnosis of Diabetes Mellitus. Hematocrit Auto (Bld) [Volum e fraction]Ordered By: Cecilio Dumont on 08-16-2022 Hematocrit (Bld) [Volume fraction] 42.3 % 34.0-46.4 [facility] Hemoglobin [Mass/volume] in BloodOrdered By: Cecilio Dumont 08-16-2022 Hemoglobin (Bld) [Mass/Vol] 14.2 g/dL 11.8-15.4 [facility] Iron [Mass/volume] in Serum or PlasmaOrdered By: Cecilio Dumont 08-16-2022 Iron [Mass/Vol] 87 ug/dL 50-212 [facility] Leukocytes [#/volume] correc rani for nucleated erythrocytes in Blood by Automated counOrdered By: Cecilio Dumont on 08-16-2022 WBC corrected for nucl RBC Auto (Bld) [#/Vol] 7.0 10*3/uL 3.8-11.6 [facility] Lymphocytes Auto (Bld) [#/Vo l]Ordered By: Cecilio Dumont 08-16-2022 Lymphocytes (Bld) [#/Vol] 1.8 10*3/uL 1.00-4.8 [facility] Lymphocytes/100 WBC Auto (Bl d)Ordered By: Cecilio Dumont on 08-16-2022 Lymphocytes/100 WBC (Bld) 26.0 % . [facility] MCH Auto (RBC) [Entitic mass ]Ordered By: Cecilio Dumont on 08-16-2022 MCH (RBC) [Entitic mass] 30.4 pg 24.7-34.3 [facility] MCHC Auto (RBC) [Mass/Vol]Or dered By: Cecilio Dumont on 08-16-2022 MCHC (RBC) [Mass/Vol] 33.7 g/dL 32.0-35.0 [facility] MCV Auto (RBC) [Entitic vol] Ordered By: Cecilio Duomnt on 08-16-2022 MCV (RBC) [Entitic vol] 90.2 fL 80-100 [facility] Magnesium [Mass/volume] in S genaro or PlasmaOrdered By: Cecilio Dumont on 08-16-2022 Magnesium [Mass/Vol] 2.0 mg/dL 1.9-2.7 [facility] Monocytes Auto (Bld) [#/Vol] Ordered By: Cecilio Dumont on 08-16-2022 Monocytes (Bld) [#/Vol] 0.5 10*3/uL 0.0-0.8 [facility] Monocytes/100 WBC Auto (Bld) Ordered By: Cecilio Dumont on 08-16-2022 Monocytes/100 WBC (Bld) 7.1 % . [facility] Neutrophils Auto (Bld) [#/Vo l]Ordered By: Cecilio Dumont on 08-16-2022 Neutrophils (Bld) [#/Vol] 4.5 10*3/uL 1.8-7.7 [facility] Neutrophils/100 WBC Auto (Bl d)Ordered By: Cecilio Dumont on 08-16-2022 Neutrophils/100 WBC (Bld) 64.9 % . [facility] No Panel InformationOrdered By: Cecilio Dumont on 08-16-2022 Estimated GFR (CKD-EPI) > 60.0 mL/Min [facility] Free Thyroxine (T4) Direct 8.8 ug/dL 4.5-12.0 [facility] Pharmacy Creatinine Clearance (Chem N/A [facility] Nucleated erythrocytes [Pres ence] in Blood by Automated countOrdered By: Cecilio Dumont on 08-16-2022 Nucleated RBC Auto Ql (Bld) 0.0 /100{WBC} 0-0.5 [facility] Platelet mean volume Auto (B ld) [Entitic vol]Ordered By: Cecilio Dumont on 08-16-2022 Platelet mean volume (Bld) [Entitic vol] 7.3 fL 6.3-10.7 [facility] Platelets Auto (Bld) [#/Vol] Ordered By: Cecilio Dumont on 08-16-2022 Platelets (Bld) [#/Vol] 280 10*3/uL 150-450 [facility] Potassium [Moles/volume] in Serum or PlasmaOrdered By: Cecilio Dumont on 08-16-2022 Potassium [Moles/Vol] 3.6 mmol/L 3.5-5.1 [facility] Protein [Mass/volume] in Ser um or PlasmaOrdered By: Cecilio Dumont on 08-16-2022 Protein [Mass/Vol] 7.3 g/dL 6.4-8.9 [facility] RBC Auto (Bld) [#/Vol]Ordere d By: Cecilio Dumont on 08-16-2022 RBC (Bld) [#/Vol] 4.69 10*6/uL 3.60-5.00 [facility] Serum or plasma albumin/glob ulin mass ratioOrdered By: Cecilio Dumont on 08-16-2022 Albumin/Globulin [Mass ratio] 1.4 {ratio} [facility] Serum or plasma anion gap de terminationOrdered By: Cecilio Dumont on 08-16-2022 Anion gap [Moles/Vol] 10.1 mmol/L 6.0-15.0 [facility] Sodium [Moles/volume] in Ser um or PlasmaOrdered By: Cecilio Dumont on 08-16-2022 Sodium [Moles/Vol] 141 mmol/L 136-145 [facility] TSH DL <= 0.005 mIU/L QnOrde red By: Cecilio Dumont on 08-16-2022 TSH Qn 1.920 m[IU]/L 0.450-4.50 0 [facility] Triiodothyronine (T3) [Mass/ volume] in Serum or PlasmaOrdered By: Cecilio Dumont on 08-16-2022 T3 [Mass/Vol] 81 ng/dL 71-180 [facility] Comment on above: Performed at: [place] [id number] Director: Tomas Nick PhD, Phone: [phone] Triiodothyronine (T3) resin uptake testOrdered By: Cecilio Dumont on 08-16-2022 T3RU 28 % 24-39 [facility] Urea nitrogen [Mass/volume] in Serum or PlasmaOrdered By: Cecilio Dumont on 08-16-2022 Urea nitrogen [Mass/Vol] 24 mg/dL 7-25 [facility] WBC Auto (Bld) [#/Vol]Ordere d By: Cecilio Dumont on 08-16-2022 WBC (Bld) [#/Vol] 7.0 10*3/uL 3.8-11.6 [facility] XR knee RT 2Von 08-08-2022 XR knee RT 2V [facility] [employer] Other XR knee RT 2V [facility] [employer] Other XR knee RT 2V [address] [place] [address] [employer] Other XR knee RT 2V [address] [employer] Other XR knee RT 2V XRay Report [place] [employer] Other XR knee RT 2V Signed [place] [employer] Other XR knee RT 2V Patient: Benny Hooper i MR#: [id number] [facility] [employer] Other XR knee RT 2V [facility] [employer] Other XR knee RT 2V : 1960 Acct:[id number] [employer] Other XR knee RT 2V Age/Sex: 62 / F ADM Date: 08/08/22 [employer] Other XR knee RT 2V Loc[place] [facility] [place]: Type : [facility] [employer] Other XR knee RT 2V Attending Dr: Dutch Strange CYTOGENETIC TECHNOLOGISTKhushbooC [employer] Other XR knee RT 2V Copies to: Sharla Strange [facility] [employer] Other XR knee RT 2V Ordering Provider: Sharla Strange PERSONNEL TRAINING OFFICERShree [employer] Other XR knee RT 2V Date of Service: 08/08/22 [employer] Other XR knee RT 2V XR/XR wrist RT 2V: Injury of right wrist, initial encounter [employer] Other XR knee RT 2V ([id number]) XR/XR knee RT 2V: Injury of right knee, initial encounter [employer] Other XR knee RT 2V CLINICAL DATA: Wallace nt tripped and fell landing on right side yesterday. Injury at the right wrist [employer] Other XR knee RT 2V and knee. [employer] Other XR knee RT 2V RIGHT WRIST - 2 views [employer] Other XR knee RT 2V COMPARISON: None [employer] Other XR knee RT 2V AP and lateral views were obtained. No fracture or dislocation is noted. No definite acute fracture [employer] Other XR knee RT 2V or dislocation is identified. There is minimal dorsal soft tissue swelling. [employer] Other XR knee RT 2V X R/XR wrist RT 2V [employer] Other XR knee RT 2V IMPRESSION: [employer] Other XR knee RT 2V NO ACUTE BONY INJURY WITHIN LIMITS OF THE AVAILABLE VIEWS. [employer] Other XR knee RT 2V RIGHT KNEE - 2 views [place] [employer] Other XR knee RT 2V Weightbearing AP and lateral views were obtained. No acute fracture or dislocation is identified. [employer] Other XR knee RT 2V There is moderate narrowing of the medial tibiofemoral joint compartment. There is tricompartment [employer] Other XR knee RT 2V marginal spurring. T here is an enthesophyte at the insertion of the quadriceps tendon. A small knee [employer] Other XR knee RT 2V effusion is seen. Th ere is no focal soft tissue swelling. [employer] Other XR knee RT 2V DEGENERATIVE CHANGES. [employer] Other XR knee RT 2V NO ACUTE BONY INJURY. [employer] Other XR knee RT 2V Impression dictated by: Danette Granger M.D.08/08/2022 8:28 AM [employer] Other XR knee RT 2V Dictation Location: [place] [address] [employer] Other XR knee RT 2V Transcribed By: ADAM 08/08/22 08 [employer] Other XR knee RT 2V Dictated By: Danette Granger MD 08/08/22 08 [employer] Other XR knee RT 2V Signed By: [employer] Other XR knee RT 2V 08/08/22 1544 [employer] Other Covid-19 PCR (CVDTB)on 03-17 SARS-CoV-2 (COVID-19) RNA TIFFANY+probe Ql (Unsp spec) Detected Critically abnormal NOT DETECTED [facility] Comment on above: Result Comment: This test is not yet approved or cleared by the [place] FDA. When there are no FDA-approved or cleared tests available, and other criteria are met, FDA can make tests available under an emergency access mechanism called an Emergency Use Authorization (EUA). The EUA for this test is supported by the [place] of Health and Human Service's declaration that [...] longer be used). Performed By: #### [facility] #### [facility] [address] [place] [address] Dr. Rodney Barakat Albumin [Mass/volume] in Ser um or PlasmaOrdered By: Renny Walton on 12-16-2021 Albumin [Mass/Vol] 4.0 g/dL 3.2-5.5 [facility] Basophils Auto (Bld) [#/Vol] Ordered By: Renny Walton on 12-16-2021 Basophils (Bld) [#/Vol] 0.1 10*3/uL 0.0-0.2 [facility] Basophils/100 WBC Auto (Bld) Ordered By: Renny Walton on 12-16-2021 Basophils/100 WBC (Bld) 1.0 % . [facility] Blood hemoglobin measurement (mass/volume)Ordered By: Renny Walton on 12-16-2021 Hemoglobin (Bld) [Mass/Vol] 14.8 g/dL 11.8-15.4 [facility] Blood leukocytes automated c ount (number/volume)Ordered By: Renny Walton on 12-16-2021 WBC (Bld) [#/Vol] 6.5 10*3/uL 4.5-11.0 [facility] Cholesterol [Mass/volume] in Serum or PlasmaOrdered By: Renny Walton on 12-16-2021 Cholesterol [Mass/Vol] 189 mg/dL 140-200 [facility] Comment on above: Chol less than 200 m g/dl low risk Chol 201-239 mg/dl borderline risk Chol 240 mg/dl and greater high risk Cholesterol in LDL Calc [Mas s/Vol]Ordered By: Renny Walton on 12-16-2021 Cholesterol in LDL [Mass/Vol] 113 mg/dL 0-100 [facility] Comment on above: LDL ATP III CLASSIFI CATION LDL less than 100 mg/dL Optimal LDL 100-129 mg/dL Near or above optimal LDL 130-159 mg/dL Borderline high LDL 160-189 mg/dL High LDL greater than 189 mg/dL Very high Cholesterol in VLDL Calc [Ma ss/Vol]Ordered By: Renny Walton on 12-16-2021 Cholesterol in VLDL [Mass/Vol] 27 mg/dL [facility] Creatinine and Glomerular fi ltration rate.predicted panel (S/P/Bld)Ordered By: Renny Walton on 12-16-2021 Creatinine [Mass/Vol] 0.63 mg/dL 0.44-1.03 [facility] Eosinophils Auto (Bld) [#/Vo l]Ordered By: Renny Walton on 12-16-2021 Eosinophils (Bld) [#/Vol] 0.1 10*3/uL 0.0-0.45 [facility] Eosinophils/100 WBC Auto (Bl d)Ordered By: Renny Walton on 12-16-2021 Eosinophils/100 WBC (Bld) 1.2 % . [facility] Erythrocyte distribution wid th Auto (RBC) [Ratio]Ordered By: Renny Walton on 12-16-2021 Erythrocyte distribution width (RBC) [Ratio] 13.9 % 11.9-15.3 [facility] Estimated glomerular filtrat ion rate (GFR) non- AmericanOrdered By: Renny Walton on 12-16-2021 GFR/1.73 sq M.predicted among non-blacks MDRD (S/P/Bld) [Vol rate/Area] > 60 mL/Min [facility] Globulin Calc (S) [Mass/Vol] Ordered By: Renny Walton on 12-16-2021 Globulin (S) [Mass/Vol] 3.3 g/dL [facility] Glucose mean value [Mass/vol ume] in Blood Estimated from glycated hemoglobinOrdered By: Renny Walton on 12-16-2021 Average glucose Estimated from glycated hemoglobin (Bld) [Mass/Vol] 120 mg/dL [facility] Hematocrit Auto (Bld) [Volum e fraction]Ordered By: Renny Walton on 12-16-2021 Hematocrit (Bld) [Volume fraction] 44.9 % 34.0-46.4 [facility] Laboratory - Chemistry and C hemistry - challengeOrdered By: Renny Walton on 12-16-2021 Glucose [Mass/Vol] 111 mg/dL 70-100 [facility] Comment on above: ADA recommended refe rence range Laboratory - Hematology and Cell countsOrdered By: Renny Walton on 12-16-2021 HbA1c (Bld) [Mass fraction] 5.8 % 4.3-5.6 [facility] Comment on above: Increased risk for d iabetes: 5.7 - 6.4 diabetes: >6.4 glycemic control for adults with diabetes: <7.0 Nucleated RBC/100 WBC (Bld) [Ratio] 0.0 % 0-0.5 [facility] Lymphocytes Auto (Bld) [#/Vo l]Ordered By: Renny Walton on 12-16-2021 Lymphocytes (Bld) [#/Vol] 1.9 10*3/uL 1.00-4.8 [facility] Lymphocytes/100 WBC Auto (Bl d)Ordered By: Renny Walton on 12-16-2021 Lymphocytes/100 WBC (Bld) 29.2 % . [facility] MCH Auto (RBC) [Entitic mass ]Ordered By: Renny Walton on 12-16-2021 MCH (RBC) [Entitic mass] 30.0 pg 24.7-34.3 [facility] MCHC Auto (RBC) [Mass/Vol]Or dered By: Renny Walton on 12-16-2021 MCHC (RBC) [Mass/Vol] 33.0 g/dL 32.0-35.0 [facility] MCV Auto (RBC) [Entitic vol] Ordered By: Renny Walton on 12-16-2021 MCV (RBC) [Entitic vol] 90.8 fL 80-100 [facility] Monocyte %Ordered By: Renny Walton on 12-16-2021 Monocyte % 139 mg/dL 35-149 [facility] Comment on above: TRIG ATP III CLASSIF ICATION TRIG less than 150 mg/dL Normal TRIG 150-199 mg/dL Borderline high TRIG 200-500 mg/dL High TRIG greater than 500 mg/dL Very high Standard traceable to the Center for Disease Conrtrol and Prevention (CDC) test method. Monocytes Auto (Bld) [#/Vol] Ordered By: Renny Walton on 12-16-2021 Monocytes (Bld) [#/Vol] 0.5 10*3/uL 0.0-0.8 [facility] Monocytes/100 WBC Auto (Bld) Ordered By: Renny Walton on 12-16-2021 Monocytes/100 WBC (Bld) 7.4 % . [facility] Neutrophils Auto (Bld) [#/Vo l]Ordered By: Renny Walton on 12-16-2021 Neutrophils (Bld) [#/Vol] 4.0 10*3/uL 1.8-7.7 [facility] Neutrophils/100 WBC Auto (Bl d)Ordered By: Renny Walton on 12-16-2021 Neutrophils/100 WBC (Bld) 61.2 % . [facility] No Panel InformationOrdered By: Renny Walton on 12-16-2021 Estimated GFR () > 60 mL/Min [facility] Comment on above: GFR estimated refere nce range: According to KDOQI guidelines, <60 ml/min/1.73m2 is sufficient to diagnose a patient with chronic kidney disease. Nicotine Metabolite Negative Cutoff=25 [facility] Comment on above: Performed at: [address] [id number] Compound Filler: Merary Mccartney MD, Phone: [phone] Pharmacy Creatinine Clearance (Chem N/A [facility] Platelet mean volume Auto (B ld) [Entitic vol]Ordered By: Renny Walton on 12-16-2021 Platelet mean volume (Bld) [Entitic vol] 7.3 fL 6.3-10.7 [facility] Platelets Auto (Bld) [#/Vol] Ordered By: Renny Walton on 12-16-2021 Platelets (Bld) [#/Vol] 286 10*3/uL 150-450 [facility] Protein [Mass/volume] in Ser um or PlasmaOrdered By: Renny Walton on 12-16-2021 Protein [Mass/Vol] 7.3 g/dL 6.1-7.9 [facility] RBC Auto (Bld) [#/Vol]Ordere d By: Renny Walton on 12-16-2021 RBC (Bld) [#/Vol] 4.94 10*6/uL 3.60-5.00 [facility] Serum or plasma alanine carter otransferase measurement without P-5'-P (enzymatic activiOrdered By: Renny Walton on 12-16-2021 ALT No additional P-5'-P [Catalytic activity/Vol] 45 U/L 10-60 [facility] Serum or plasma albumin/glob ulin mass ratioOrdered By: Renny Walton on 12-16-2021 Albumin/Globulin [Mass ratio] 1.2 {ratio} [facility] Serum or plasma alkaline dawood sphatase measurement (enzymatic activity/volume)Ordered By: Renny Walton on 12-16-2021 ALP [Catalytic activity/Vol] 64 U/L 32-92 [facility] Serum or plasma aspartate am inotransferase measurement (enzymatic activity/volume)Ordered By: Renny Walton on 12-16-2021 AST [Catalytic activity/Vol] 25 U/L 10-42 [facility] Serum or plasma calcium hernandez urement (mass/volume)Ordered By: Renny Walton on 12-16-2021 Calcium [Mass/Vol] 9.5 mg/dL 8.2-10.2 [facility] Serum or plasma chloride patrick surement (moles/volume)Ordered By: Renny Walton on 12-16-2021 Chloride [Moles/Vol] 101 mmol/L 95-114 [facility] Serum or plasma high density lipoprotein (HDL) cholesterol measurementOrdered By: Renny Walton on 12-16-2021 Cholesterol in HDL [Mass/Vol] 48 mg/dL 35-85 [facility] Comment on above: HDL CHOL ATP-III CLA SSIFICATION Cardiovascular Risk HDL > or equal to 60 mg/dL LOW HDL < 40 mg/dL HIGH Serum or plasma potassium me asurement (moles/volume)Ordered By: Renny Walton on 12-16-2021 Potassium [Moles/Vol] 4.1 mmol/L 3.5-5.1 [facility] Serum or plasma sodium measu rement (moles/volume)Ordered By: Renny Walton on 12-16-2021 Sodium [Moles/Vol] 138 mmol/L 136-146 [facility] Serum or plasma total biliru bin measurement (mass/volume)Ordered By: Renny Walton on 12-16-2021 Bilirubin [Mass/Vol] 0.6 mg/dL 0.3-1.2 [facility] Serum or plasma total carbon dioxide measurement (moles/volume)Ordered By: Renny Walton on 12-16-2021 CO2 [Moles/Vol] 28.3 mmol/L 22.0-30.0 [facility] Serum or plasma total choles terol/high density lipoprotein (HDL) cholesterol mass ratOrdered By: Renny Walton on 12-16-2021 Cholesterol.total/Chol esterol in HDL [Mass ratio] 3.9 {ratio} <5.0 [facility] Serum or plasma urea nitroge n measurement (mass/volume)Ordered By: Renny Walton on 12-16-2021 Urea nitrogen [Mass/Vol] 22 mg/dL 9-23 [facility] TSH DL <= 0.005 mIU/L QnOrde red By: Renny Walton on 12-16-2021 TSH Qn 2.52 m[IU]/L 0.45-5.33 [facility] COVID-19 SOFIAOrdered By: Wilfrido Walton on 12-09-2021 SARS-CoV+SARS-CoV-2 (COVID-19) Ag IA.rapid Ql (Resp) Negative Negative [facility] Comment on above: This is a duplicate [place] SARS Antigen (FERN) result to be used for statistical tracking purpose only. No Panel InformationOrdered By: Renny Walton on 12-09-2021 SARS Antigen (LFIA) [facility] No Panel Informationon 10-28 Normal -[facility] [address] [place] Work Phone: No Panel Informationon 10-27 -[facility] [facility] [address] [place] Work Phone: Office Visit (Cardiology)on [...] Metabolic Panel; Status:Active - Retrospective Authorization; Requested for:[id number]; SocHx: Never a smoker Tobacco Use Screening; [...] chest pain. 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 Normal [facility] Tobacco Screening.on 022 Adult depression screening assessment No [facility] [address] [place] Work Phone: Tobacco use status [facility] b) No [facility] [address] [place] Work Phone: Vital Signs Date Time Vital Sign Value Performing Clinician Facility 12-26-2024 08:16-0400 Body height 170.18 cm Cecilio Dumont MD Work Phone: [facility] 12-26-2024 08:16-0400 Body mass index (BMI) [Ratio] 33.6 kg/m2 Cecilio Dumont MD Work Phone: [facility] 12-26-2024 08:16-0400 Body weight 97.52 kg Cecilio Dumont MD Work Phone: [facility] 11-20-2024 16:21-0400 Body height 170.2 cm Joseph Cobian DPM Work Phone[facility] 11-20-2024 16:21-0400 Body mass index (BMI) [Ratio] 33.67 kg/m2 Joseph Cobian DPM Work Phone: [facility] 11-20-2024 16:21-0400 Body weight 97.52 kg Joseph Cobian DPM Work Phone: [facility] 11-20-2024 16:21-0400 Respiratory rate 18 /min Joseph Cobian DPM Work Phone: [facility] 09-11-2024 08:11-0400 Body height 170.18 cm [facility] 09-11-2024 08:11-0400 Body mass index (BMI) [Ratio] 33.7 kg/m2 [facility] 09-11-2024 08:11-0400 Body weight 97.9 kg [facility] 09-11-2024 08:11-0400 Diastolic blood pressure 75 mm[Hg] [facility] 09-11-2024 08:11-0400 Heart rate 65 /min [facility] 09-11-2024 08:11-0400 Respiratory rate 18 /min [facility] 09-11-2024 08:11-0400 SaO2% (BldA) [Mass fraction] 97 % [facility] 09-11-2024 08:11-0400 Systolic blood pressure 117 mm[Hg] [facility] 06-12-2024 08:16-0500 Body height 170.18 cm [facility] 06-12-2024 08:16-0500 Body mass index (BMI) [Ratio] 32.5 kg/m2 [facility] 06-12-2024 08:16-0500 Body weight 94.46 kg [facility] 06-12-2024 08:16-0500 Diastolic blood pressure 64 mm[Hg] [facility] 06-12-2024 08:16-0500 Heart rate 76 /min [facility] 06-12-2024 08:16-0500 Respiratory rate 16 /min [facility] 06-12-2024 08:16-0500 SaO2% (BldA) [Mass fraction] 96 % [facility] 06-12-2024 08:16-0500 Systolic blood pressure 106 mm[Hg] [facility] 03-22-2024 08:52-0500 Body height 170.2 cm Anneliese Garcia MD Work Phone: [facility] 03-22-2024 08:52-0500 Body mass index (BMI) [Ratio] 32.26 kg/m2 Anneliese Garcia MD Work Phone: [facility] 03-22-2024 08:52-0500 Body weight 93.44 kg Anneliese Garcia MD Work Phone: [facility] 03-22-2024 08:52-0500 Diastolic blood pressure 84 mm[Hg] Anneliese Garcia MD Work Phone: [facility] 03-22-2024 08:52-0500 Heart rate 68 /min Anneliese Garcia MD Work Phone: [facility] 03-22-2024 08:52-0500 Systolic blood pressure 120 mm[Hg] Anneliese Garcia MD Work Phone: [facility] 02-14-2024 08:01-0400 Body height 170.18 cm [facility] 02-14-2024 08:01-0400 Body mass index (BMI) [Ratio] 32 kg/m2 [facility] 02-14-2024 08:01-0400 Body weight 92.73 kg [facility] 02-14-2024 08:01-0400 Diastolic blood pressure 70 mm[Hg] [facility] 02-14-2024 08:01-0400 Heart rate 78 /min [facility] 02-14-2024 08:01-0400 Respiratory rate 18 /min [facility] 02-14-2024 08:01-0400 SaO2% (BldA) [Mass fraction] 98 % [facility] 02-14-2024 08:01-0400 Systolic blood pressure 129 mm[Hg] [facility] 12-20-2023 12:22-0400 Body height 170.18 cm MD Cecilio Dumont Work Phone: [facility] 12-20-2023 12:22-0400 Body mass index (BMI) [Ratio] 32.3 kg/m2 MD Cecilio Dumont Work Phone: [facility] 12-20-2023 12:22-0400 Body weight 93.55 kg MD Cecilio Dumont Work Phone: [facility] 12-20-2023 12:22-0400 Diastolic blood pressure 79 mm[Hg] MD Cecilio Dumont Work Phone: [facility] 12-20-2023 12:22-0400 Heart rate 69 /min MD Cecilio Dumont Work Phone: [facility] 12-20-2023 12:22-0400 Respiratory rate 16 /min MD Cecilio Dumont Work Phone: [facility] 12-20-2023 12:22-0400 SaO2% (BldA) [Mass fraction] 95 % MD Cecilio Dumont Work Phone: [facility] 12-20-2023 12:22-0400 Systolic blood pressure 131 mm[Hg] MD Cecilio Dumont Work Phone: [facility] 10-27-2023 10:38-0400 Body height 170.18 cm [facility] 10-27-2023 10:38-0400 Body mass index (BMI) [Ratio] 33.5 kg/m2 [facility] 10-27-2023 10:38-0400 Body weight 97.29 kg [facility] 10-27-2023 10:38-0400 Diastolic blood pressure 69 mm[Hg] [facility] 10-27-2023 10:38-0400 Heart rate 76 /min [facility] 10-27-2023 10:38-0400 Respiratory rate 20 /min [facility] 10-27-2023 10:38-0400 SaO2% (BldA) [Mass fraction] 96 % [facility] 10-27-2023 10:38-0400 Systolic blood pressure 108 mm[Hg] [facility] 09-06-2023 07:22-0400 Body height 170.18 cm [facility] 09-06-2023 07:22-0400 Body mass index (BMI) [Ratio] 34.1 kg/m2 [facility] 09-06-2023 07:22-0400 Body weight 98.93 kg [facility] 09-06-2023 07:22-0400 Diastolic blood pressure 74 mm[Hg] [facility] 09-06-2023 07:22-0400 Heart rate 72 /min [facility] 09-06-2023 07:22-0400 Respiratory rate 16 /min [facility] 09-06-2023 07:22-0400 SaO2% (BldA) [Mass fraction] 98 % [facility] 09-06-2023 07:22-0400 Systolic blood pressure 130 mm[Hg] [facility] 07-12-2023 07:41-0500 Body height 170.18 cm [facility] 07-12-2023 07:41-0500 Body mass index (BMI) [Ratio] 33 kg/m2 [facility] 07-12-2023 07:41-0500 Body weight 95.82 kg [facility] 07-12-2023 07:41-0500 Diastolic blood pressure 71 mm[Hg] [facility] 07-12-2023 07:41-0500 Heart rate 76 /min [facility] 07-12-2023 07:41-0500 Respiratory rate 16 /min [facility] 07-12-2023 07:41-0500 SaO2% (BldA) [Mass fraction] 97 % [facility] 07-12-2023 07:41-0500 Systolic blood pressure 107 mm[Hg] [facility] 05-31-2023 07:45-0500 Body height 170.18 cm Isabel Kent Other [employer] Other 05-31-2023 07:45-0500 Body mass index (BMI) [Ratio] 34.81 kg/m2 Isabelher Calller Other [employer] Other 05-31-2023 07:45-0500 Body weight 100.84 kg Isabel Missler Other [employer] Other 05-31-2023 07:45-0500 Diastolic blood pressure 82 mm[Hg] Isabel Missler Other [employer] Other 05-31-2023 07:45-0500 Respiratory rate 18 /min Isabel Missler Other [employer] Other 05-31-2023 07:45-0500 SaO2% (BldA) [Mass fraction] 97 % Isabel Missler Other [employer] Other 05-31-2023 07:45-0500 Systolic blood pressure 127 mm[Hg] Isabel Missler Other [employer] Other 04-21-2023 07:15-0500 Body height 170.18 cm Isabel Missler Other [employer] Other 04-21-2023 07:15-0500 Body mass index (BMI) [Ratio] 35.24 kg/m2 Isabel Missler Other [employer] Other 04-21-2023 07:15-0500 Body weight 102.06 kg Isabel Missler Other [employer] Other 04-21-2023 07:15-0500 Diastolic blood pressure 70 mm[Hg] Isabel Missler Other [employer] Other 04-21-2023 07:15-0500 Respiratory rate 18 /min Isabel Missler Other [employer] Other 04-21-2023 07:15-0500 SaO2% (BldA) [Mass fraction] 95 % Isabel Kent Other [employer] Other 04-21-2023 07:15-0500 Systolic blood pressure 110 mm[Hg] Isabel Kent Other [employer] Other 03-24-2023 08:37-0500 Body height 170.2 cm Anneliese Garcia MD Work Phone: [facility] 03-24-2023 08:37-0500 Body mass index (BMI) [Ratio] 34.93 kg/m2 Anneliese Garcia MD Work Phone: [facility] 03-24-2023 08:37-0500 Body weight 101.15 kg Anneliese Garcia MD Work Phone: [facility] 03-24-2023 08:37-0500 Diastolic blood pressure 84 mm[Hg] Anneliese Garcia MD Work Phone: [facility] 03-24-2023 08:37-0500 Heart rate 64 /min Anneliese Garcia MD Work Phone: [facility] 03-24-2023 08:37-0500 Systolic blood pressure 138 mm[Hg] Anneliese Garcia MD Work Phone: [facility] 03-16-2023 08:00-0400 Body height 170.18 cm Julia Ayon Other [employer] Other 03-16-2023 08:00-0400 Body mass index (BMI) [Ratio] 34.83 kg/m2 Julia Fitt Other [employer] Other 03-16-2023 08:00-0400 Body weight 100.88 kg Julia Ayon Other [employer] Other 03-10-2023 07:45-0400 Body height 170.18 cm Isabel Missler Other [employer] Other 03-10-2023 07:45-0400 Body mass index (BMI) [Ratio] 35.13 kg/m2 Isabel Missler Other [employer] Other 03-10-2023 07:45-0400 Body weight 101.74 kg Isabel Missler Other [employer] Other 03-10-2023 07:45-0400 Diastolic blood pressure 72 mm[Hg] Isabel Missler Other [employer] Other 03-10-2023 07:45-0400 Respiratory rate 18 /min Isabel Missler Other [employer] Other 03-10-2023 07:45-0400 SaO2% (BldA) [Mass fraction] 97 % Isabel Missler Other [employer] Other 03-10-2023 07:45-0400 Systolic blood pressure 112 mm[Hg] Isabel Missler Other [employer] Other 01-27-2023 08:15-0400 Body height 170.18 cm Isabel Missler Other [employer] Other 01-27-2023 08:15-0400 Body mass index (BMI) [Ratio] 34.8 kg/m2 Isabel Missler Other [employer] Other 01-27-2023 08:15-0400 Body weight 100.79 kg Isabel Missler Other [employer] Other 01-27-2023 08:15-0400 Diastolic blood pressure 81 mm[Hg] Isabel Missler Other [employer] Other 01-27-2023 08:15-0400 Respiratory rate 18 /min Isabel Missler Other [employer] Other 01-27-2023 08:15-0400 SaO2% (BldA) [Mass fraction] 99 % Isabel Missler Other [employer] Other 01-27-2023 08:15-0400 Systolic blood pressure 119 mm[Hg] Isabel Missler Other [employer] Other 01-04-2023 16:55-0400 Body temperature 98.3 [degF] MD Cecilio Dumont Work Phone: [facility] 01-04-2023 16:55-0400 Diastolic blood pressure 82 mm[Hg] MD Cecilio Dumont Work Phone: [facility] 01-04-2023 16:55-0400 Heart rate 61 /min MD Cecilio Dumont Work Phone: [facility] 01-04-2023 16:55-0400 Respiratory rate 18 /min MD Cecilio Dumont Work Phone: [facility] 01-04-2023 16:55-0400 SaO2% (BldA) [Mass fraction] 97 % MD Cecilio Dumont Work Phone: [facility] 01-04-2023 16:55-0400 Systolic blood pressure 124 mm[Hg] MD Cecilio Dumont Work Phone: [facility] 01-04-2023 05:53-0400 Body weight 100.3 kg MD Cecilio Dumont Work Phone: [facility] 01-03-2023 17:09-0400 Body height 170.18 cm MD Cecilio Dumont Work Phone: [facility] 01-03-2023 16:05-0400 Body temperature 97.8 [degF] MD Cecilio Dumont Work Phone: [facility] 01-03-2023 16:05-0400 Diastolic blood pressure 64 mm[Hg] MD Cecilio Dumont Work Phone: [facility] 01-03-2023 16:05-0400 Heart rate 76 /min MD Cecilio Dumont Work Phone: [facility] 01-03-2023 16:05-0400 Respiratory rate 20 /min MD Cecilio Dumont Work Phone: [facility] 01-03-2023 16:05-0400 SaO2% (BldA) [Mass fraction] 98 % MD Cecilio Dumont Work Phone: [facility] 01-03-2023 16:05-0400 Systolic blood pressure 125 mm[Hg] MD Cecilio Dumont Work Phone: [facility] 01-03-2023 10:17-0400 Body height 170.18 cm MD Cecilio Dumont Work Phone: [facility] 01-03-2023 10:17-0400 Body weight 100.9 kg MD Cecilio Dumont Work Phone: [facility] 12-16-2022 09:15-0400 Body height 170.18 cm Isabel Kent Other [facility] Other 12-16-2022 09:15-0400 Body mass index (BMI) [Ratio] 36.38 kg/m2 Isabel Calller Other [facility] Other 12-16-2022 09:15-0400 Body weight 105.37 kg Isabel Missler Other [employer] Other 12-16-2022 09:15-0400 Diastolic blood pressure 81 mm[Hg] Isabel Missler Other [employer] Other 12-16-2022 09:15-0400 Respiratory rate 18 /min Isabel Missler Other [employer] Other 12-16-2022 09:15-0400 SaO2% (BldA) [Mass fraction] 98 % Isabel Missler Other [employer] Other 12-16-2022 09:15-0400 Systolic blood pressure 145 mm[Hg] Isabel Missler Other [facility] Other 10-22-2021 08:38-0400 Body height 170.18 cm Cecilio [facility] Work Phone: [facility] [address] [place] Work Phone: 10-22-2021 08:38-0400 Body mass index (BMI) [Ratio] 36.81 kg/m2 Cecilio M Hoy Work Phone: [facility] [address] [place] Work Phone: 10-22-2021 08:38-0400 Body surface area Derived from formula 2.17 m2 Cecilio M Hoy Work Phone: [facility] [address] [place] Work Phone: 10-22-2021 08:38-0400 Body weight 106.6 kg Cecilio M Hoy Work Phone: [facility] [address] [place] Work Phone: 10-22-2021 08:38-0400 Diastolic blood pressure 92 mm[Hg] Cecilio M Hoy Work Phone: [facility] [address] [place] Work Phone: 10-22-2021 08:38-0400 Diastolic blood pressure 98 mm[Hg] Cecilio Castaneda [place] Work Phone: [facility] [address] [place] Work Phone: 10-22-2021 08:38-0400 Heart rate 63 /min Cecilio Reedy Work Phone: [facility] [address] [place] Work Phone: 10-22-2021 08:38-0400 Systolic blood pressure 156 mm[Hg] Cecilio Reedy Work Phone: [facility] [address] [place] Work Phone: 10-22-2021 08:38-0400 Systolic blood pressure 160 mm[Hg] Cecilio Castaneda [place] Work Phone: [facility] [address] [place] Work Phone: 10-06-2021 00:00-0400 60 1 Cecilio Reedangelito Work Phone: [facility] [address] [place] Work Phone: Comment on above: [id number] Encounters Encounter Date Encounter Type Care Provider Facility Start: 12-26-2024 End: 12-26-2024 ambulatory Cecilio Dumont MD Work Phone: [facility] Work Phone: Start: 12-26-2024 End: 12-26-2024 Patient encounter procedure John Castaneda MD -[facility] Work Phone: Start: 12-24-2024 End: 12-24-2024 Patient encounter procedure Cecilio Castaneda MD -[facility] Work Phone: Start: 12-24-2024 End: 12-24-2024 ambulatory Cecilio Dumont MD Work Phone: [facility] Work Phone: Start: 12-20-2024 End: 12-20-2024 Patient encounter procedure Cecilio Castaneda MD -[facility] Work Phone: Start: 12-20-2024 End: 12-20-2024 Departed Referred Renny Finch DO [facility] Start: 12-20-2024 End: 12-20-2024 ambulatory Cecilio Dumont MD Work Phone: [facility] Work Phone: Start: 12-03-2024 End: 12-03-2024 Patient encounter procedure Cecilio Castaneda MD -[facility] Work Phone: Start: 12-03-2024 End: 12-03-2024 ambulatory Cecilio Dumont MD Work Phone: [facility] Work Phone: Start: 12-03-2024 End: 12-03-2024 ambulatory Anthony R NILL Facility:[facility] Start: 12-03-2024 End: 12-03-2024 Patient encounter procedure Anthony R NILL [facility] Start: 11-28-2024 ambulatory Anthony NILL Facility:[facility] Start: 11-25-2024 ambulatory Anthony NILL Facility:[facility] Start: 11-23-2024 End: 11-23-2024 Patient encounter procedure Cecilio Castaneda MD -Ultrasound [facility] Work Phone: Start: 11-23-2024 End: 11-23-2024 ambulatory Cecilio Dumont MD Work Phone: [facility] Work Phone: Start: 11-21-2024 End: 11-21-2024 Patient encounter procedure Cecilio Castaneda MD -Lab [facility] Start: 11-21-2024 End: 11-21-2024 ambulatory Cecilio Dumont MD Work Phone: [facility] Work Phone: Start: 11-20-2024 End: 11-20-2024 Office outpatient visit 15 minutes Joseph Cobian DPM Work Phone: [facility] Comment on above: Capsulitis of metata rsophalangeal (MTP) joint of left foot (Primary Dx); Bone spur of left foot; DJD (degenerative joint disease), ankle and foot, left Start: 11-20-2024 End: 11-20-2024 ambulatory JOSEPH Natalie COBIAN Not Available Start: 11-20-2024 End: 11-20-2024 Bamboo flowsheet Joseph A Brown DPM Work Phone: [facility] Start: 11-20-2024 End: 11-20-2024 Bamboo flowsheet Joseph A Brown DPM Work Phone: [facility] Start: 11-06-2024 End: 11-06-2024 Office outpatient new 30 minutes Joseph Natalie Cobian DPM Work Phone: [facility] Comment on above: DJD (degenerative antoni int disease), ankle and foot, left (Primary Dx); Bone spur of left foot; Capsulitis of metatarsophalangeal (MTP) joint of left foot Start: 11-06-2024 End: 11-06-2024 ambulatory JOSEPH Natalie COBIAN Not Available Start: 11-06-2024 End: 11-06-2024 Bamboo flowsheet Joseph A Brown DPM Work Phone: [facility] Start: 11-06-2024 End: 11-06-2024 Bamboo flowsheet Joseph A Brown DPM Work Phone: [facility] Start: 10-16-2024 End: 10-16-2024 Patient encounter procedure Cecilio Dumont MD Work Phone: [facility]-CT Scan [facility] [place] Work Phone: Start: 10-16-2024 End: 10-16-2024 ambulatory Cecilio Dumont MD Work Phone: [facility] Work Phone: Start: 09-27-2024 End: 09-27-2024 Patient encounter procedure Cecilio Dumont MD Work Phone: [facility]-XRay [facility] [place] Work Phone: Start: 09-27-2024 End: 09-27-2024 ambulatory Cecilio Dumont Facility:[facility] Start: 09-11-2024 End: 09-11-2024 ambulatory [facility] Work Phone: Start: 09-11-2024 End: 09-11-2024 Patient encounter procedure [facility] Work Phone: Start: 06-12-2024 End: 06-12-2024 ambulatory [facility] Work Phone: Start: 06-12-2024 End: 06-12-2024 Patient encounter procedure [facility] ysician [facility] Work Phone: Start: 03-22-2024 End: 03-22-2024 Office outpatient visit 15 minutes Anneliese Garcia MD Work Phone: [facility] Comment on above: Precordial pain (Elayne celestine Dx); Essential hypertension, benign; Diverticulosis; BMI 32.0-32.9,adult; Never smoked tobacco Start: 03-22-2024 End: 03-22-2024 ambulatory [facility] Start: 02-14-2024 End: 02-14-2024 ambulatory [facility] Work Phone: Start: 02-14-2024 End: 02-14-2024 Patient encounter procedure [facility] ysician [facility] Work Phone: Start: 01-19-2024 End: 01-20-2024 Non-patient [facility] Work Phone: Start: 12-20-2023 End: 12-20-2023 ambulatory MD Cecilio Dumont Work Phone: [facility] Work Phone: Start: 12-20-2023 End: 12-20-2023 Patient encounter procedure MD Cecilio Dumont Work Phone: [facility] Work Phone: Start: 11-13-2023 End: 11-13-2023 ambulatory MD Cecilio Dumont Work Phone: [facility] Work Phone: Start: 11-13-2023 End: 11-13-2023 Departed Referred MD [facility]ilio Dumont [facility] Start: 10-27-2023 End: 10-27-2023 ambulatory [facility] Work Phone: Start: 10-27-2023 End: 10-27-2023 Patient encounter procedure [facility] Work Phone: Start: 09-06-2023 End: 09-06-2023 ambulatory [facility] Work Phone: Start: 09-06-2023 End: 09-06-2023 Patient encounter procedure [facility] Work Phone: Start: 07-12-2023 End: 07-12-2023 Patient encounter procedure [facility] Work Phone: Start: 05-31-2023 (wmnempf/u) [employer] F/U [facility] Start: 05-31-2023 End: 05-31-2023 ambulatory [facility] Other [employer] Other Start: 04-21-2023 (wmnempf/u) [employer] Employee F/U [facility] Start: 04-21-2023 End: 04-21-2023 ambulatory Isabel Missler Other [employer] Other Start: 03-24-2023 End: 03-24-2023 Office outpatient visit 15 minutes Anneliese Garcia MD Work Phone: [facility] Comment on above: Precordial pain (Elayne celestine Dx); Essential hypertension, benign; BMI 34.0-34.9,adult; Encounter to discuss test results Start: 03-16-2023 ([facility]) [employer] Init ial Provider Julia Ayon [facility] Start: 03-16-2023 End: 03-16-2023 ambulatory Julia Ayon Other [facility] Other Start: 03-14-2023 End: 03-15-2023 ambulatory [facility] Start: 03-10-2023 (wmnempf/u) [employer] Employee F/U [facility] Start: 03-10-2023 End: 03-10-2023 ambulatory Isabel Missler Other [facility] Other Start: 02-14-2023 End: 02-15-2023 ambulatory [facility] Start: 01-27-2023 (wmnempf/u) [employer] F/U [facility] Start: 01-27-2023 End: 01-27-2023 ambulatory Isabel Missler Other [place] [employer] Other Start: 01-24-2023 Telephone encounter Cecilio Dumont Work Phone: [facility] [address] Work Phone: Start: 01-09-2023 End: 01-09-2023 ambulatory Isabel Missler Other [place] [employer] Other Start: 01-09-2023 Telephone encounter [facility] Start: 01-04-[address] Cecilio Dumont Facility:[id number] Start: 01-03-2023 End: 01-04-2023 Evaluation and management of inpatient MD Cecilio Dumont Work Phone: [facility] [place] [facility] Work Phone: Start: 01-03-2023 End: 01-04-2023 observation encounter MD Cecilio Dumont Work Phone: [facility] Work Phone: Start: 12-16-2022 (WMNEMPNEW) [employer] Employee [facility] Start: 12-16-2022 End: 12-16-2022 ambulatory [facility] Other [employer] Other Start: 12-16-2022 Registered Recurring MD Ladan Dumont Work Phone: [facility]-Weight Management Work Phone: Start: 11-08-2022 End: 11-08-2022 ambulatory MD Cecilio Dumont Work Phone: [facility] Work Phone: Start: 11-08-2022 End: 11-08-2022 Departed Referred MD Cecilio Dumont Work Phone: [facility]-Employee Benefit Screening Start: 08-23-2022 End: 08-23-2022 ambulatory Sharla Strange Other [employer] Other Start: 08-23-2022 Office outpatient vi sit 15 minutes Sharla Strange [facility] Start: 08-16-2022 End: 08-16-2022 ambulatory MD Cecilio Dumont Work Phone: [facility] Work Phone: Start: 08-16-2022 End: 08-16-2022 Patient encounter procedure MD Cecilio Dumont Work Phone: [facility] [place] Work Phone: Start: 08-15-2022 End: 08-16-[address] CECILIO DUMONT . Facility:[facility]1 Start: 08-08-2022 Office outpatient ne w 30 minutes Sharla Strange [facility] Start: 08-08-2022 End: 08-08-2022 ambulatory MD Cecilio Dumont Work Phone: [facility] Work Phone: Start: 08-08-2022 End: 08-08-2022 Patient encounter procedure MD Cecilio Dumont Work Phone: [facility] Start: 06-20-2022 Chart Update Cecilio Dumont Work Phone: [facility] DO Work Phone: Start: 04-13-2022 End: 04-13-[address] CECILIO DUMONT . Facility: Start: 12-16-2021 End: 12-16-2021 Departed Referred MD Cecilio Dumont Work Phone: [facility]-Employee Benefit Screening Start: 12-09-2021 End: 12-09-2021 Patient encounter procedure MD Cecilio Dumont Work Phone: [facility]-[place] Swab Start: 10-29-2021 Chart Update Cecilio Dumont Work Phone: [facility] [address] [place] Work Phone: Start: 10-27-2021 End: 10-27-2021 Patient encounter procedure MD Cecilio Dumont Work Phone: [facility]-Electrodiagnosti cs Start: 05-04-2021 ([facility] C Vac) [facility] Co vid Vaccine Julia Ayon [facility] Start: 05-04-2021 End: 05-04-2021 ambulatory Julia Ayon Other [facility] Other Procedures Date Procedure Procedure Detail Performing Clinician Start: 12-26-2024 Plain radiography of pelvis Cecilio Dumont MD Work Phone: Start: 12-26-2024 X-ray of right knee, four views Cecilio Dumont MD Work Phone: Start: 12-24-2024 Urine culture Cecilio Dumont MD Work Phone: Start: 12-20-2024 Urine culture Cecilio Dumont MD [...] MD Work Phone: Start: 05-15-2020 Colonoscopy Anthony IVERSON Start: 05-15-2020 Esophagogastroduodenoscopy Anthony MASTERSLeila Start: 05-20-2013 left knee arthroscopy Anthony IVERSON Arthroscopy of knee Anthony IVERSON Comment on above: right x 2 Colonoscopy Cecilio Dumont Work Phone: 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; Operative procedure on knee Cecilio Dumont Work Phone: Reduction mammoplasty Ladan s Tonya Dumont Work Phone: Reduction mammoplasty Rubi IVERSON SARS Antigen (LFIA) MD Cindy wang [employer] Work Phone: 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 Anthony IVERSON Plan of Treatment Date Care Activity Detail Author Start: 2037 RSV High Risk: (Elde rly (60+) or Population) (1 - 1-dose 75+ series) RSV High Risk: (Elderly (60+) or Population) (1 - 1-dose 75+ series) [facility] Start: 01-13-2025 Influenza vaccination Influenz a Vaccine (#1) [facility] Start: 12-26-2024 Plain radiography of pelvis XR pelvi s 1-2V [facility] Start: 12-26-2024 X-ray of right knee, four views XR knee RT 4V* [facility] Start: 12-26-2024 XR Knee - right 4 Views [facility] Start: 12-26-2024 XR Pelvis 1 or 2 Views [facility] Start: 12-24-2024 End: 12-24-2024 Urine culture [facility] Start: 12-24-2024 Bacteria identified in Urine by Culture Urine Culture [facility] Start: 12-20-2024 Bacteria identified in Urine by Culture Urine Culture [facility] Start: 12-20-2024 Urine culture [facility] Start: 12-03-2024 Bacteria identified in Urine by Culture Urine Culture [facility] Start: 12-03-2024 Urine culture [facility] Start: 11-20-2024 End: 11-20-2024 Patient encounter procedure [facility] Comment on above: Capsulitis of metata rsophalangeal (MTP) joint of left foot (Primary Dx); Bone spur of left foot; DJD (degenerative joint disease), ankle and foot, left Start: 11-06-2024 End: 11-06-2024 Patient encounter procedure 11/06/2024 3:50 PM EDT Office Visit [facility] [address] [place] [address] Joseph Cobian DPM [address] [address] Arrived [facility] Comment on above: Arrived Start: 01-14-2024 COVID-19 Vaccine ( season) COVID-19 Vaccine ( season) [facility] Start: 03-06-2023 FUV, Provider: Anneliese Garcia, Status: Pen, Time: 1:20 PM FUV, Provider: Anneliese Garcia, Status: Pen, Time: 1:20 PM [facility] 250 DO Work Phone: Start: 01-04-2023 [facility] Start: 01-03-2023 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 Start: 11-08-2022 [facility] Start: 08-16-2022 [facility] Start: 01-28-2022 FUV, Provider: Anneliese Garcia, Status: Pen, Time: 9:20 AM FUV, Provider: Anneliese Garcia, Status: Pen, Time: 9:20 AM [facility] [address] [place] Work Phone: Start: 12-16-2021 End: 12-16-2021 Departed Referred Departed Referred [facility]-Employee Benefit Screening Start: 12-01-2021 Screening for malign ant neoplasm of breast Mammogram [facility] Start: 11-29-2021 NURSEVST, Provider: KATHIA BEARDEN ACCOUNTS ADMINISTRATOR 1,[id number], Status: Pen, Time: 1:00 PM NURSEVST, Provider: KATHIA BEARDEN ACCOUNTS ADMINISTRATOR 1,[id number], Status: Pen, Time: 1:00 PM -[facility] [address] [place] Work Phone: Start: 06-29-2021 COVID-19 Vaccine (4 - Moderna series) COVID-19 Vaccine (4 - Moderna series) [facility] Start: 2012 Zoster Vaccines (1 of 2) Zoste r Vaccines (1 of 2) [facility] Start: 05-20-2009 MMR Vaccines (1 of 1 - Standard series) MMR Vaccines (1 of 1 - Standard series) [facility] Start: 1992 Screening for malign ant neoplasm of cervix [facility] Start: 1984 DTaP/Tdap/Td Vaccine s (1 - Tdap) DTaP/Tdap/Td Vaccines (1 - Tdap) [facility] Start: 1983 Screening for malign ant neoplasm of cervix [facility] Start: 1980 Hepatitis C screening Hepatiti s C Screening [facility] Start: 1962 HIV screening HIV Screening [facility] Start: 1962 Lipid panel Lipid Panel [facility] Start: 1962 Screening for malign ant neoplasm of colon [facility] Start: 1962 Yearly Adult Physical Yearly A dult Physical [facility] Glucose measurement estimated from glycated hemoglobin [facility] Hemoglobin A1c measurement [facility] Patient referral [facility] Work Phone: Thyrotropin [Units/v olume] in Serum or Plasma [facility] Thyroxine (T4) free index in Serum or Plasma by calculation [facility] Thyroxine measurement [facility] Triiodothyronine (T3 ) [Mass/volume] in Serum or Plasma [facility] Triiodothyronine res in uptake (T3RU) in Serum or Plasma [facility] Immunizations Immunization Date Immunization Notes Care Provider Subhash west 02-26-2024 influenza virus vaccine, unspecified formulation Joseph Cobian DPM Work Phone: [facility] [place] 02-27-2023 influenza, injectabl e, quadrivalent, preservative free Anneliese Garcia MD Work Phone: [facility] Work Phone: 05-04-2021 COVID-19 Moderna Julia Ayon Other [facility] 06-16-2020 Moderna COVID-19 Vaccine 100 MCG/0.5ML Intramuscular Suspension Cecilio M Hoy Work Phone: [facility] 05-19-2020 Moderna COVID-19 Vaccine 100 MCG/0.5ML Intramuscular Suspension Cecilio M Hoy Work Phone: [facility] 01-14-2020 influenza, injectabl e, quadrivalent, preservative free Cecilio M Hoy Work Phone: [facility] [address] [place] Work Phone: 04-22-2009 novel [id number], preservative-free, injectable Cecilio M Hoy Work Phone: [facility] [address] [place] Work Phone: Payers Date Payer Category Payer Private Health Insurance [id number] 2022 Managed Care (Private) [facility] [id number] 2022 Unknown 1960 Unknown [id number] 1960 Unknown [id number] 1960 Unknown [id number] 1960 Unknown [id number] 1962 Unknown [id number] 1960 Unknown [id number] 1960 Unknown [id number] 1960 Unknown [id number] 1959 Unknown [id number] Self-pay Self Pay [id number] Worker's Compensation [facility] [id number] Social History Date Type Detail Facility Start: 03-24-2023 End: 11-06-2024 Consumes alcohol occasionally Consumes alcohol occasionally [employer] Other Start: 03-24-2023 End: 11-06-2024 Sex Assigned At [facility] Start: 09-30-2021 End: 07-12-2023 Tobacco smoking status NHIS Never smoked tobacco (finding) [facility] Start: 1960 Sex Assigned At Female [facility] Start: 03-24-2023 End: 11-06-2024 Tobacco use and exposure Smokeless tobacco non-user [facility] Work Phone: Start: 03-24-2023 End: 03-22-2024 Alcohol intake Lifetime non-drinker (finding) [facility] Work Phone: Start: 1960 Sex Assigned At Not on file [facility] Work Phone: Start: 03-14-2023 End: 03-24-2023 Exposure to SARS-CoV-2 (event) Not sure [facility] Start: 08-26-2009 End: 06-12-2024 Sex Female (finding) [facility] Tobacco smoking stat us NHIS Tobacco smoking consumption unknown [facility] Start: 11-06-2024 End: 11-20-2024 Alcoholic beverage intake Current drinker of alcohol (finding) [facility] Tobacco smoking status Never [facility] [place] Sexual Orientation [facility] [place] Medical Equipment Procedure Code Equipment Code Equipment Origin al Text Equipment Identifier Dates [id number] Start: 02-24-2020 End: 03-22-2024 Pen Needle, Diab [...] Baseline [facility] Work Phone: 01-03-2023 Functional status Patient at Baseline [facility] Work Phone: Mental Status Date Assessment Result Facility 01-04-2023 Cognitive function Cognitive Sta tus Patient at Baseline [facility] Work Phone: 01-03-2023 Cognitive function Cognitive Sta tus Patient at Baseline [facility] Work Phone: Clinical Notes 05-04-2021 to 12-26-2024 Note Date & Type Note Facility 12-26-2024 Evaluation note Diagnosis Onset Date Resolution Primary osteoarthritis of right knee acute December 26 7:28am [facility] Work Phone: 1(454) 664-487607-22-2025 NoteGeneral Surgery Office/Clinic Note Chief Complaint consultation for cholelithiasis HPI Staff 64 year old female presents on consultation from Dr. Dumont for cholelithiasis. Patient reports 3 month history of intermittent LUQ abdominal pain, nausea, heartburn and bloating. Reports pain is present more often than not and radiates to back and shoulder. Symptoms are worsened post prandial withoutany known food triggers. Discontinued use of Ozempic [...] after eating anything, also loose stools shortly aftereating, no blood or mucous; occasional nausea, no emesis; recent RUQ US with hepatic steatosis and small gallstones, no wall thickening or ductal dilation, no distension of gallbladder; did have diffuse abd pain/bloating for months, but discontinued Ozempic in September with some improvement; still with d iffuse abd bloating all the time; intermittent GERD despite PPI, no early satiety, no dysphagia; patient reports EGD/colonoscopy done at [facility] 5 years ago, reportedly with just diverticulosis; [...] swallowing difficulties, no hearing loss, no ear infection(s),no nose bleeds. Cardiovascular: normal blood pressure, no [...] may require repeat endoscopy if CT scan negative;recommend low fat diet for now; will call patient with CT scan results; she is to call sooner if pro blems/qeustions. Ordered: CT Abdomen/Pelvis w/ Contrast E&M of New Patient Moderate 45-59 Min 09349 2. Left flank pain (R10.9: Unspecified abdominal pain) see # 1 Ordered: CT Abdomen/Pelvis w/ Contrast E&M of New Patient Moderate 45-59 Min 15776 3. Nausea (R11.0: Nausea) see # 1 Ordered: CT Abdomen/Pelvis w/ Contrast E&M of New Patient Moderate 45-59 Min 80246 4. Abdominal bloating (R14.0: Abdominal distension (gaseous)) see # 1 Ordered: CT Abdomen/Pelvis w/ Contrast E&M of New Patient Moderate 45-59 Min 71502 5. Frequent loose stools (R19.7: Diarrhea, unspecified) see # 1 Ordered: CT Abdomen/Pelvis w/ Contrast E&M of (more content not included)...[facility]:Result Comment: Electronically Signed By: ZAYRA PACHECO, Anthony Barrera\Date and Time Signed: 12/03/24 09:16 [id number] Radiology Diagnostic study note [facility] [place] [address] [place] [address] Ultrasound Report Signed Patient: Nancy Hooper MR#: [id number] : 1960 Acct:[id number] Age/Sex: 64 / F ADM Date: 5 Loc: Room: Type: [facility] Attending Dr: Cecilio Dumont MD Ordering [...] Degroot M.D. 11/23/2024 5:13 PM Dictation Location: [place] [address] Tech: Ramila Su Transcribed By: ADAM 11/23/241712 Dictated By: Shai Degroot II, MD 11/23/241711 Signed By: 11/23/241712 [facility] Work Phone: 1(532) 288-346507-09-2025 History of Present illness Narrative* Joseph Cobian DPM - 11/20/2024 4:10 PM EDT Patient: Nancy Estrada Rufus : 1960 PCP: Cecilio Dumont MD SUBJECTIVE [...] 10/16/24 CT/CT foot LT wo con: M79.672 ([id number]) CT/CT ankle LT wo con: M79.672 CT ankle LT wo con, CT foot LT wo con 10/16/2024 8:10 AM SIGNS AND SYMPTOMS: Injury to left foot and ankle with bruising and swelling TECHNIQUE: Multidetector CT axial slices of the left foot and left ankle without IV contrast. Multiplanar and 3-D reformats were performed and viewed on a separate workstation and reviewed to furtherdefine anatomy and possible pathology. CT was performed [...] midfoot exostectomy in the future Discussed possible dhgc-omi-scozpby arch supports and patient may consider and continues ibuprofen and ice p.r.n. and may consider walking boot if not improved in the next few weeks Joseph Cobian DPM documented in this encounterUniversity [id number] History of Present illness Narrative* Joseph Cobian, DPM - 11/06/2024 3:50 PM EDT Patient: Nancy Hooper : 1960 PCP: No [...] 10/16/24 CT/CT foot LT wo con: M79.672 ([id number]) CT/CT ankle LT wo con: M79.672 CT ankle LT wo con, CT foot LT wo con 10/16/2024 8:10 AM SIGNS AND SYMPTOMS: Injury to left foot and ankle with bruising and swelling TECHNIQUE: Multidetector CT axial slices of the left foot and left ankle without IV contrast. Multiplanar and 3-D reformats were performed and viewed on a separate workstation and reviewed to furtherdefine anatomy and possible pathology. CT was performed [...] Patient may continue with conservative treatments including wsim-uwm-mhtpdaz anti- inflammatories and other treatments suggested today. Patient may want to be s cheduled for surgical intervention in the near future. Discussed possibly left midfoot exostectomy in the future Joseph Cobian DPM documented in this encounterUniversity HospitalKpinpvpyve23-08-1667 Radiology Diagnostic study [place] [address] CT Scan Report Signed Patient: Nancy Hooper MR#: [id number] : 1960 Acct:[id number] Age/Sex: 64 / F ADM Date: 5 Loc: CT Room: Type: [facility] Attending Dr: Cecilio Dumont MD Copies to: Cecilio Dumont MD~ Ordering Provider: Cecilio Dumont MD Date of Service: 10/16/24 CT/CT foot LT wo con: M79.672 ([id number]) CT/CT ankle LT wo con: M79.672 CT [...] 4:27 PM Dictation Location: [id number] Transcribed By: [facility] 10/16/24 1627 Dictated By: Shai Degroot II, MD 10/16/24 1601 Signed By: 10/16/24 1627 [facility] Work Phone: 1(295) 435-943604-30-2025 Evaluation note* Diagnosis Onset Date Resolution Status Admit Date Arthritis acute September 11 8:10am GERD (gastroesophageal reflu x disease) acute September 11, 2024 8:10am Obesity, Class I, BMI 30-34.9 acute September 11, 2024 8:10am Prediabetes acute September 11, 025 8:10am Stroke acute September 11 8:10am Encounter for weight management noneactive September 11, 2024 8:10am [facility] Work Phone: 1(259) 631-718511-08-2024 History of Present illness Narrative* Anneliese Garcia [...] Scribe Attestation By signing my name below, IRegina LPN, Scribe attest that this documentation has [...] exam, discussion and plan. documented in this [facility] Work Phone: 1(197) 731-320611-08-2024 Instructions* Patient Instructions* Regina Nieto LPN - [...] exercise. PRN Same medications [facility] Work Phone: 1(684) 632-339601-17-2024 Evaluation note* Encounter Date Diagnosis Assessment Notes [...] Encounter for weight management (ICD-10 - Z76.89) [employer] Other 12-08-2023 Evaluation note* Encounter Date Diagnosis [...] constipation. Not currently using any type of xnkg-yrx-lgnluxv stool softener or fiber supplement. She continues [...] Encounter for weight management (ICD-10 - Z76.89) [employer] Other 11-10-2023 History of Present illness Narrative* [...] to discuss test results [facility] Work Phone: 1(502) 447-523011-10-2023 Instructions* Patient Instructions* Ino Torres MA - [...] time of your visit. documented [facility] Work Phone: 1(810) 445-484111-02-2023 Evaluation note* Encounter Date Diagnosis Assessment Notes [...] start small to build motivation and momentum [employer] Other 10-27-2023 Evaluation note* Encounter Date Diagnosis [...] Encounter for weight management (ICD-10 - Z76.89) [employer] Other 09-15-2023 Evaluation note* Encounter Date Diagnosis [...] cancer she had her surgery performed at [facility]. Reinforced that it is is responsible for [...] Encounter for weight management (ICD-10 - Z76.89) [employer] Other 08-23-2023 History and physical note Author Nabil Baker [facility] January 04, 2023 2:58am Note Date/Time January 03, 2023 6: 25pm [facility] [address] [place] [address] Hospitalist H&P Signed Patient: Nancy Hooper MR#: [id number] : 1960 Acct:[id number] Age/Sex: 62 / F Adm Date: 3 Loc: Room: [address] [place] [address] Type: ADM INOo Attending Dr: Nabil Bkaer MD Copies to: MD Nabil Zelaya MD~ [...] care Discussed with:?the medical team, the patient [facility] Medical History Benign tumor removed rt neck [...] % (Auto) 15.0 % (.) 01/03/23 10:20 [place] % (Auto) 8.4 % (.) 01/03/23 10:20 Eos % (Auto) 0.7 % (.) 01/03/23 10:20 Baso % (Auto) 1.0 % (.) 01/03/23 10:20 Nucleat RBC Rel Count 0.1 /100 WBC (0-0.5) 01/03/23 10:20 Neut # (Auto) 6.2 x10E3/uL (1.8-7.7) 01/03/23 10:20 Lymph # (Auto) 1.2 x10E3/uL (1.00-4.8) 01/03/23 10:20 [place] # (Auto) 0.7 x10E3/uL (0.0-0.8) 01/03/23 10:20 [...] pH 6.5 (5.0-9.0) 01/03/23 15:03 Ur Specific Pryor 1.024 (1.001-1.030) 01/03/23 15:03 Urine Protein Negative [...] signed by Nabil Baker MD> 01/04/23 0258 [facility] Work Phone: 1(375) 148-178008-04-2023 Evaluation note* Encounter Date Diagnosis Assessment Notes [...] Strongly encouraged to take advantage of our engine room helper available at [facility] that can help work around limitations. Each [...] Dec, Impaired fasting glucose (ICD-10 - R73.01) [facility] Other 04-11-2023 Evaluation note* Encounter Date Diagnosis [...] Aug, Right wrist pain (ICD-10 - M25.531) [facility] Other 03-27-2023 Evaluation note* Encounter Date Diagnosis [...] Jul, Right wrist pain (ICD-10 - M25.531) [facility] Other 12-21-2021 Evaluation note* Encounter Date Diagnosis Assessment Notes Treatment Notes Treatment Clinical Notes Apr, Encounter for immunization (ICD-10 - Z23) Patient presents for COVID-19 vaccination BOOSTER. Pre-screening form answers evaluated with patient. Patient denies current illness or allergic reaction to component of COVID-19 vaccine. Patient provided with current copy of EUA. [facility] Other Consult note Author Kajal Mccauley [facility] January 04, 2023 4:27pm Note Date/Time January 04, 2023 4: 24pm [facility] [address] [place] [address] Cardiology Consult Note Signed Patient: Nancy Hooper MR#: [id number] : 1960 Acct:[id number] Age/Sex: 62 / F Adm Date: 3 Loc: Room: [address] [place] [address] Type: ADM INOo Attending Dr: Nabil Baker MD Copies to: MD Kajal Zelaya MD, [facility] Nabil Baker MD~ Cardiology HPI History of Present Illness Consult Date: 01/04/23 Reason for Consult: Chest pain HPI: Ms. Hooper is a 62 year old female who works in central [employer] at [employer] and who is being seen at the [...] All other review of system essentially unremarkable [facility] Medical History Benign tumor removed rt neck [...] (primary) hypertension Documented By: Kajal Mccauley MD, [facility] 3 1620 Signed By: <Electronically signed by MD PETTY Mccauley> 01/04/23 1627 [facility] Work Phone: Discharge summary Author Nabil Baker [facility] January 05, 2023 1:20am Note Date/Time January 04, 2023 3: 34pm [facility] [address] [place] [address] Discharge Summary Signed Patient: Nancy Hooper MR#: [id number] : 1960 Acct:[id number] Age/Sex: 62 / F Adm Date: 3 Loc: Room: [address] [place] [address]: Nabil Baker MD Copies to: [...] Appearance Clear, Urine pH 6.5, Ur Specific Pry[place] 1.024, Urine Protein Negative, Urine Glucose (UA) [...] signed by Nabil Baker MD> 01/05/23 0120 [facility] Work Phone: Evaluation + Plan note No data available for this section [facility] [place] Evaluation noteNo assessment information available [facility] Work Phone: Evaluation note* Diagnosis Onset Date Resolution Status Chest pain acute Hypertension chronic [facility] Work Phone: Evaluation noteNo InformationNort DocVue Other Evaluation note* Diagnosis Precordial pain- Primary Essential hypertension, benign BMI 34.0-34.9,adult Encounter to discuss test results Other specified counseling documented in this encounter [facility] Work Phone: Evaluation note* Diagnosis Onset Date Resolution Status Arthritis acute GERD (gastroesophageal reflux disease) acute Obesity, Class I, BMI 30-34.9 acute Prediabetes acute Stroke acute Encounter for weight management noneactive Arthritis acute GERD (gastroesophageal reflux disease) acute Obesity, Class I, BMI 30-34.9 acute Prediabetes acute Stroke acute Encounter for weight management noneactive [facility] Work Phone: Evaluation note* Diagnosis Onset Date Resolution Status Arthritis acute GERD (gastroesophageal reflux disease) acute Obesity, Class I, BMI 30-34.9 acute Prediabetes acute Stroke acute Encounter for weight management noneactive [facility] Work Phone: Evaluation note* Diagnosis Precordial pain- Primary Essential hypertension, benign Diverticulosis Diverticulosis of colon (without mention of hemorrhage) BMI 32.0-32.9,adult Never smoked tobacco documented in this encounter [facility] Work Phone: Evaluation note* Diagnosis Onset Date Resolution Status Admit Date Arthritis acute June 12, 2024 8:06am GERD (gastroesophageal reflux disease) acute June 12 8:06am Obesity, Class I, BMI 30-34.9 acute June 12 8:06am Prediabetes acute June 12, 2024 8:06am Stroke acute June 12, 2024 8:06am Encounter for weight management noneactive June 12 8:06am [facility] Work Phone: Evaluation note* Diagnosis Onset Date Resolution Status Admit Date Arthritis acute September 11 8:10am GERD (gastroesophageal reflu x disease) acute September 11, 2024 8:10am Obesity, Class I, BMI 30-34.9 acute September 11, 2024 8:10am Prediabetes acute September 11, 025 8:10am Stroke acute September 11 8:10am Encounter for weight management noneactive September 11, 2024 8:10am [facility] Work Phone: Evaluation note* Diagnosis DJD (degenerative joint disease), ankle and foot, left- Primary Bone spur of left foot Capsulitis of metatarsophalangeal (MTP) joint of left foot documented in this encounter [facility] HealthcareEvaluation note* Diagnosis Capsulitis of metatarsophalangeal (MTP) joint of left foot- Primary Bone spur of left foot DJD (degenerative joint disease), ankle and foot, left [facility] Diagnosis Onset Date Resolution Status Admit Date Primary osteoarthritis of ri ght knee acute December 26 7:28am [facility] Work Phone: History and physical note Author Nabil Baker [facility] January 04, 2023 2:58am Note Date/Time January 03, 2023 6: 25pm [facility] [address] [place] [address] Hospitalist H&P Signed Patient: Nancy Hooper MR#: [id number] : 1960 Acct:[id number] Age/Sex: 62 / F Adm Date: 3 Loc: Room: [address] [place] [address] Type: ADM INOo Attending Dr: Nabil Baker [...] care Discussed with:?the medical team, the patient [facility] Medical History Benign tumor removed rt neck [...] % (Auto) 15.0 % (.) 01/03/23 10:20 [place] % (Auto) 8.4 % (.) 01/03/23 10:20 Eos % (Auto) 0.7 % (.) 01/03/23 10:20 Baso % (Auto) 1.0 % (.) 01/03/23 10:20 Nucleat RBC Rel Count 0.1 /100 WBC (0-0.5) 01/03/23 10:20 Neut # (Auto) 6.2 x10E3/uL (1.8-7.7) 01/03/23 10:20 Lymph # (Auto) 1.2 x10E3/uL (1.00-4.8) 01/03/23 10:20 [place] # (Auto) 0.7 x10E3/uL (0.0-0.8) 01/03/23 10:20 [...] pH 6.5 (5.0-9.0) 01/03/23 15:03 Ur Specific [place] 1.024 (1.001-1.030) 01/03/23 15:03 Urine Protein Negative [...] 1 Documented By: Nabil Baker MD 01/03/23 2960 Signed By: <Electronically signed by Nabil Baker MD> 01/04/23 3546 [facility] Work Phone: Hiscvsv general Narrative - Reported* Type Description Date Medical History HTN Medical History diverticulitis Medical History Anxiety Surgical History Collarbone tumor removed Surgical History Knee surgery X2 Surgical History Breast Reduction Hospitalization History See Above Hospitalization History Pneumonia Hospitalization History Diverticulitis Hospitalization History Paralegic Migraines besomebody. [facility] Other [facility] general Narrative - Reported* Type Description Date Medical History HTN Medical History diverticulitis Medical History Anxiety Medical History GERD Medical History Kidney stones Medical History Migraine headache Medical History Stroke 2009 Surgical History Collarbone tumor removed Surgical History Knee surgery X2 Surgical History Breast Reduction Hospitalization History See Above Hospitalization History Pneumonia Hospitalization History Diverticulitis Hospitalization History Paralegic Migraines besomebody. [facility] Other Hisumhg general Narrative - Reported* Type Description Date Medical History HTN Medical History diverticulitis Medical History Anxiety Medical History GERD Medical History Kidney stones Medical History Migraine headache Medical History Stroke 2009 Surgical History Collarbone tumor removed Surgical History Knee surgery X2 Surgical History Breast Reduction Hospitalization History See Above Hospitalization History Pneumonia Hospitalization History Diverticulitis Hospitalization History Paralegic Migraines Hospitalization History [facility] Chest pain [facility] Other Hospital Discharge instructions No data available for this section [facility] [place] Progress note No data available for this section [facility] [place] Reason for referral (narrative)* Consultation (Routine) - Authorized Specialty Diagnoses / Procedures Referred By Frederick murillo Referred To Contact Cardiology Diagnoses Precordial pain Essential hypertension, benign Procedures Follow Up In Cardiology Anneliese Garcia MD [address] [facility] [address], [address] [address] Anneliese Garcia MD 703 [facility] 2, [address] [address] Referral ID Status Reason Start Date Expiration Date V isits Requested Visits Authorized [id number] Authorized 03/24/2023 03/23/2024 1 1 [facility] Work Phone: Reason for referral (narrative)No reason for referral [facility] Work Phone: Reason for visit Narrative* Consultation (Routine) - Closed Specialty Diagnoses / Procedures Referred By Contac t Referred To Contact Podiatry Diagnoses Pain in left foot Procedures CA OFFICE/OUTPATIENT NEW LOW MDM 30 MINUTES Cecilio Dumont MD [address] [place] [address] Phone: tel: fax: Joseph Cobian DPM [address] [address] Phone: tel: fax: Referral ID Status Reason Start Date Expiration Date Visits Re quested Visits Authorized [id number] Closed 10/22/2024 01/20/2025 1 1 [facility] Healthcare Summary Purpose Family History No Family History Records FoundUnknown Family Member Name Dates Details Family history of myocardial infarction: Brother(V17.3, Z82.49) Status:Active Relationship Condition Age at Onset Recorded Date/T nazanin brother Myocardial infarction Unknown father History of blood clots Unknown Leukemia Unknown Unknown Family Member Name Dates Details Family history of myocardial infarction: Brother(V17.3, Z82.49) Status:Active Unknown Family Member Name Dates Details Family history of myocardial infarction: Brother(V17.3, Z82.49) Status:Active Advance Directives No Advanced Directives Records Found Advance Directive Response Recorded Date/ Time Advance [...] Visit Chest pain Hypertension Chief Complaint [employer]IST follow up Reason for Visit Arthritis GERD [...] R10.13 November 21, 2024 7:44 am R10.13 R10.November 23, 2024 8:50 am N39.0 December 03, 2024 12:0 6pm pillars December 20, 2024 7:0 6am N39.0 December 20, 2024 7:0 7am Chief Complaint Admit Date M79.672 September 27, 2024 2:47p m M79.672 October 16, 2024 8:05a m R10.13 November 21, 2024 7:44 am R10.13 R10.12 November 23, 2024 8:50 am N39.0 December 03, 2024 12:0 6pm pillars December 20, 2024 7:0 6am N39.0 December 20, 2024 7:0 7am N39.0 December 24, 2024 2: 38pm Chief Complaint Admit Date M79.672 September 27, 2024 2:47p m M79.672 October 16, 2024 8:05a m R10.13 November 21, 2024 7:44 am R10.13 R10.12 November 23, 2024 8:50 am N39.0 December 03, 2024 12:0 6pm pillars December 20, 2024 7:0 6am N39.0 December 20, 2024 7:0 7am N39.0 December 24, 2024 2: 38pm NEW RT KNEE PAIN/SWELLING NX December 7:28am M25.561 - Pain in right knee December 8:05am Reason for Visit Admit Date Primary osteoarthritis of right knee Aug ust 2024 7:28am Chief Complaint Admit Date M79.672 October 16, 2024 8:05a m R10.13 November 21, 2024 7:44 am R10.13 R10.12 November 23, 2024 8:50 am N39.0 December 03, 2024 12:0 6pm pillars December 20, 2024 7:0 6am N39.0 December 20, 2024 7:0 7am N39.0 December 24, 2024 2: 38pm NEW RT KNEE PAIN/SWELLING NX December 7:28am M25.561 - Pain in right knee December 8:05am Additional Source Comments INFORMATION SOURCE (unrecogn ized section and content) DATE CREATED AUTHOR 10/23/2021 [employer] DATE CREATED AUTHOR AUTHOR'S ORGANIZ ATION 08/20/2022 [facility] DATE CREATED AUTHOR AUTHOR'S ORGANIZ ATION 01/07/2023 [facility] DATE CREATED AUTHOR AUTHOR'S ORGANIZ ATION 03/19/2023 [facility] DATE CREATED AUTHOR AUTHOR'S ORGANIZ ATION 03/24/2024 [facility] DATE CREATED AUTHOR AUTHOR'S ORGANIZ ATION 11/24/2024 [facility] EPIC DATE CREATED AUTHOR AUTHOR'S ORGANIZ ATION 12/05/2024 [facility] DATE CREATED AUTHOR AUTHOR'S ORGANIZ ATION 12/28/2024 [facility] REASON FOR VISIT (unrecogniz ed section and content) Reason Comments Hospital Follow-up Reason Comments Annual Exam Specialty Diagnoses / Procedures Referred By Frederick murillo Referred To Contact Cardiology Diagnoses Precordial pain Essential hypertension, benign Procedures Follow Up In Cardiology Anneliese Garcia MD [address] [place] [address], [address] [address] Phone: tel: fax: Anneliese Garcia MD 703 [facility] 2, [address] [place] [address] Phone: tel: fax: Referral ID Status Reason Start Date Expiration Date V isits Requested Visits Authorized [id number] Authorized 03/24/2023 03/23/2024 1 1 Reason Comments [...] Primary Care Provider Active Renny Walton DO [facility] Attending Provider Active Team Status: Active [...] Sy Dumont MD Primary Care Provider Active Sharla Strange NP-C Attending Provider Active Team Status: Inactive Member Role Status Sy Dumont MD Primary Care Provider, Attending Pr ovider Active Public Health Physician Relationship Specialty Start Date End Date Cecilio Dumont MD [address] [facility] [place] [address] PCP - General 05/15/99 Team Status: Inactive [...] End: November 13, 2023 Renny ALVARADO DO [facility] Attending Provider Active Start: November 13, [...] February 14, 2024 End: February 14, 2024 Public Health Physician Relationship Specialty Start Date End Date Cecilio Dumont MD [address] [place] [address] PCP - General 05/15/99 Team Status: Inactive [...] Role Status Sy Dumont MD Primary Care Provide r, Attending Provider Active Start: September 27, 2024 End: September 27, 2024 Team Status: Inactive Member Role Status Dates Cecilio Dumont MD Primary Care Provide r, Attending Provider Active Start: October 16, 2024 End: October 16, 2024 Public Health Physician Relationship Specialty Start Date End Date Cecilio Dumont MD [address] [place] [address] PCP - General Family Medicine 11/06/24 Public Health Physician Relationship Specialty Start Date End Date Cecilio Dumont MD [address] [place] [address] PCP - General Family Medicine 11/06/24 Public Health Physician Relationship Specialty Start Date End Date Cecilio Dumont MD [address] [place] [address] PCP - General Family Medicine 11/06/24 Team [...] 2024 Team Status: Inactive Member Role Status yS Dumont MD Primary Care Provider Active Start: [...] 20, 2024 End: December 20, 2024 Renny ALVARADO DO [facility] Attending Provider Active Start: December 20, [...] December 24, 2024 End: December 24, 2024 Team Status: Inactive Member Role Status Sy Dumont MD Primary Care Provider Active Start: December 26, 2024 End: December 26, 2024 John Benson II, MD Attending Provider Active Start: December 26, 2024 End: December 26, 2024 Team Status: Active Member Role Status Sy Dumont MD Primary Care Provider Active Start: December 26, 2024 John Benson II, MD Attending Provider Active Start: December 26, 2024 Goals (unrecognized section and content) Goals [...] BE BASED ON THE PRIMARY CLINICAL RECORDS. [facility]. provides no warranty or guarantee of the accuracy or completeness of information in this document.
--- OUTSIDE RECORDS SUMMARY | 2024-12-29 21:00 | XMS_ITS | Clinical Summary ---
Author Organization [facility] Address [address] [place] [address] Care Team Providers Care Jewelry Technician Name Role Phone Rafael Dumont MD Primary Care Provider [phone] Allergies No known active allergies Medications methylPREDNISol one (Medrol Dospak) 4 MG tabletsIndicati ons:DJD (degenerative joint disease), ankle and foot, left Follow schedule on MEDROL PACK package instructions to be used as directed 21 tablet Active Active Problems No known active problems Encounters Date Type Department Care Team Description 11/20/2024 4:10 PM EDT Office Visit [facility] [address] [place] [address] Joseph Cobian, CHRISTO Capsulitis of metatarsophalangeal (MTP) joint of left foot (Primary Dx); Bone spur of left foot; DJD (degenerative joint disease), ankle and foot, left 11/20/2024 Bamboo flowsheet [facility] [address] [place] [address] Joseph Cobian DPM 11/20/2024 Travel 11/13/2024 Abstract [facility] [address] [place] [address] Joseph Cobian DPM 11/06/2024 3:50 PM EDT Office Visit [facility] [address] [place] [address] Joseph Cobian DPM DJD (degenerative joint disease), ankle and foot, left (Primary Dx); Bone spur of left foot; Capsulitis of metatarsophalangeal (MTP) joint of left foot 11/06/2024 Telephone [facility] [address] [place] [address] Joseph Cobian DPM Casting For Braces Or Orthotics 11/06/2024 Bamboo flowsheet [facility] [address] [place] [address] Joseph Cobian DPM 11/05/2024 Travel [...] Danette Granger M.D.12/01/2020 7:55 AM Dictation Location: [facility] Transcribed By: [facility] 12/01/20 0755 Dictated By: Danette Granger MD 12/01/20 0749 Signed By: <Electronically signed by MD Danette Granger in OV> 12/01/20 0755 Narrative 12/01/2020 12:00 AM EDT PERFORMED AT [facility] LOCATION:[address] [place] [address] [place] [address] Mammography Report Signed Patient: Nancy Hooper MR#: [id number] : 1960 Acct:[id number] Age/Sex: 60 / F ADM Date: 12/01/20 Loc: [place] Room: Type: [facility] Attending Dr: Brannon Winter DO Ordering Provider: [...] Note CONVERSION, GENERIC - 11/18/2022 PERFORMED AT [facility] LOCATION:[address] [place] [address] [place] [address] Mammography Report Signed Patient: Nancy Hooper AMR#: [id number] : 1960Acct:[id number] Age/Sex: 60 / FADM Date: 12/01/20 Loc: [place] Room:Type: [facility] Attending Dr: Brannon Winter DO Ordering Provider: [...] Danette Granger M.D.12/01/2020 7:55 AM Dictation Location: [facility] Transcribed By: [facility] 12/01/20 0755 Dictated By: Danette Granger MD 12/01/20 0749 Signed By: <Electronically signed by MD Danette Granger in OV> 12/01/20 0755 Brannon Winter DO IMG BI PROCEDURES Final Resu lt from Last 3 Months or Most Recently Relevant to Health Maintenance Insurance [employer] Care Teams Jewelry Technician Relationship Specialty Start Date End Date Rafael Dumont MD [address] [place] [phone] PCP - General Family Medicine 11/06/24
--- OUTSIDE RECORDS SUMMARY | 2024-12-29 21:00 | XMS_ITS | Encounter Summary ---
Author Organization [facility] Address [address] [place] [id number] Phone Care Team Providers Care Technical Aide Name Role Phone Rafael Dumont MD Primary Care Provider [phone] Encounter Details Date Type Department Care Team (Late st Contact Info) Description 02/14/2023 Scanned Document [facility] [address] [place] [id number] Scanning, Generic Provider Social History Tobacco Use [...] on filedocumented in this encounter Care Teams Technical Aide Relationship Specialty Start Date End Date Rafael Dumont MD [address] [place] [address] PCP - General 05/15/99 documented as of this encounter
--- OUTSIDE RECORDS SUMMARY | 2024-12-29 21:00 | XMS_ITS | Encounter Summary ---
Author Organization [facility] Address [address] [place] [address] Care Team Providers Care Underwriting Operations Manager Name Role Phone Rafael Dumont MD Primary Care Provider [phone] Encounter Details Date Type Department Care Team (Late st Contact Info) Description 11/13/2024 Abstract [facility] [address] [place] [address] Joseph Cobian, DPM [address] [address] Social History Tobacco Use Types Packs/Day Years Used Date Smoking Tobacco: Never Smokeless Tobacco: Never Alcohol Use Standard Drinks/Week Comments Yes 0 [...] on filedocumented in this encounter Care Teams Underwriting Operations Manager Relationship Specialty Start Date End Date Rafael Dumont MD [address] [place] [address] PCP - General Family Medicine 11/06/24 documented as of this encounter
--- NOTE | 2024-12-29 21:20 | ECG_ITS ---
[facility] Test Date: 2024-12-29 Pat Name: AMANDA NORRIS Department: Room: - Gender: Female Operations Coordinator: : 1960 Requested By: [id number] Order Number: [id number] Reading MD: BRANT PATEL M.D. Measurements Intervals [place] Rate: 80 P: 33 DE: 160 QRS: 51 QRSD: 84 T: 46 QT: 364 QTc: 401 Interpretive Statements 1100 Sinus rhythm 19371 Cannot rule out inferior myocardial infarction with posterior extension, age undetermined 9150 abnormal ECG Compared to ECG 01/18/2024 21:18:55 No significant changes Electronically Signed On 12-30-2024 17:46:47 EDT by BRANT PATEL M.D.
--- NOTE | 2024-12-29 21:20 | ED.GENADUL1 ---
HPI HPI - General Adult General Chief complaint: Abdominal Pain Stated complaint: BACK PAIN, CHEST TIGHTNESS Time Seen by Provider: 12/29/24 21:02 Source: patient Mode of arrival: walk-in Limitations: no limitations History of Present Illness HPI narrative: This 64-year-old female with a history of hematuria, gallstones and diverticulitis presents for evaluation of multiple complaints. She states she has been having pain in her left flank and left lower quadrant of her abdomen as well as pain in her upper abdomen that radiates into her chest. She is nauseated but has not vomited. She has a bloody taste in her mouth. She states the symptoms started several days ago but have been worsening and she can no longer tolerate the pain. She states she had a CT scan on December [address] scan was basically normal with a small cyst in the right kidney with a normal-appearing left kidney. She states she is scheduled to have ultrasounds of her kidneys and bladder in the near future. She denies any dysuria or hematuria. She states she has tightness in her chest. She has not been coughing. She states her temperature has been around 99.8 at home. She took ibuprofen earlier in the day. She states she was told that she has small stones in her gallbladder but Dr. Breaux told her that they should not cause her any problems. Related Data Home Medications ?Medication ?Instructions ?Recorded ?Confirmed aspirin 81 mg capsule 81 mg PO DAILY 01/19/24 12/29/24 carvedilol 12.5 mg tablet 12.5 mg PO Q12H 01/19/24 12/29/24 hydrochlorothiazide 12.5 mg tablet 12.5 mg PO DAILY 01/19/24 12/29/24 ibuprofen 800 mg tablet 800 mg PO Q8H PRN fever or pain 01/19/24 12/29/24 lisinopril 40 mg tablet 40 mg PO DAILY 01/19/24 12/29/24 pantoprazole 40 mg tablet,delayed 40 mg PO DAILY 01/19/24 12/29/24 release Allergies Allergy/AdvReac Type Severity Reaction Status Date / Time topiramate (From Topamax) Allergy Severe Vomiting Verified 12/29/24 21:11 Penicillins Allergy Mild Hives Verified 12/29/24 21:11 sulfamethoxazole (From Allergy Mild Hives Verified 12/29/24 21:11 Bactrim) trimethoprim (From Bactrim) Allergy Mild Hives Verified 12/29/24 21:11 azithromycin Allergy Unknown Unknown Verified 12/29/24 21:11 doxycycline Allergy Unknown Unknown Verified 12/29/24 21:11 erythromycin base Allergy Unknown Unknown Verified 12/29/24 21:11 amoxicillin AdvReac Mild Hives Verified 12/29/24 21:11 cefuroxime (From Ceftin) AdvReac Mild Hives Verified 12/29/24 21:11 morphine AdvReac Mild Redness of Verified 12/29/24 21:11 Skin Opioid HPI Opioid Management Most Recent Opioid Data: Last Pain Scale 8 12/29/24, 23:45 Last ORT Total Score 0 01/19/24, 01:44 Last ORT Risk Category Low Risk 01/19/24, 01:44 Review of Systems ROS Status of ROS 10 or more systems reviewed and unremarkable except as noted in history and below [facility] Medical History (Updated 12/30/24 @ 00:33 by Louann Amor MD) Diverticulitis ?K57.92 - Diverticulitis of intestine, part unspecified, without perforation or abscess without bleeding (ICD-10) HTN (hypertension) ?I10 - Essential (primary) hypertension (ICD-10) Sebaceous cyst ?L72.3 - Sebaceous cyst (ICD-10) Mitral valve prolapse ?I34.1 - Nonrheumatic mitral (valve) prolapse (ICD-10) Migraine ?G43.909 - Migraine, unspecified, not intractable, without status migrainosus (ICD-10) TIA (transient ischemic attack) ?G45.9 - Transient cerebral ischemic attack, unspecified (ICD-10) Surgical History Hx of breast reduction, elective ?Z98.890 - Other specified postprocedural states (ICD-10) H/O knee surgery ?Z98.890 - Other specified postprocedural states (ICD-10) Family History Brother Family history of CHF (congestive heart failure) Family history of myocardial infarction Mother Family history of COPD (chronic obstructive pulmonary disease) Family history of hypertension Father Family history of cancer Family history of stroke Social History Within the past year, how often did you have a drink containing alcohol: monthly or less Within the past year, how many standard drinks containing alcohol did you have on a typical day: 1 or 2 Within the past year, how often did you have six or more drinks on one occasion: less than monthly Total score: 1 Score interpretation: A score less than 3 is consistent with normal alcohol consumption. 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 [employer] Highest level of school completed/degree received: Bachelor's degree Are you now , , , , never or living with a partner: In a typical week, how many times do you talk on the telephone with family, friends, or neighbors: 3 or more times per week How often do you get together with friends or relatives: 3 or more times per week How often do you attend taoism or protestant services: 1-3 times per year Little interest or pleasure in doing things: not at all Feeling down, depressed, or hopeless: not at all Feel stressed/tense/nervous/anxious/difficulty sleeping: to some extent Do you think of yourself as: straight/heterosexual Gender Identity: female Exam Narrative Exam Narrative: Vital signs and Nursing Notes reviewed: Patient temperature is minimally elevated at 99.3. She has normal pulse, blood pressure is elevated at 173/85, she is not hypoxic with pulse ox of 96% on room air General: Awake, alert, oriented, no acute distress, lying comfortably on the stretcher-no respiratory distress, no active vomiting HEENT: Normocephalic atraumatic, mucous membranes are moist and pink, eyes are clear, normal conjunctiva, vision is grossly intact, posterior pharynx is normal in appearance. Neck: Supple, no meningeal signs, no anterior or posterior cervical lymphadenopathy Chest: Lungs are clear to auscultation with good air entry, there is no wheezing rhonchi or rales appreciated no accessory muscle use, patient is speaking in complete sentences-no chest wall tenderness to palpation CVS: Regular rate and rhythm S1-S2, no murmurs rubs or gallops, pulses are brisk and equal bilaterally ABD: Soft, generalized tenderness localizes to the left lower quadrant and suprapubic region nondistended, nontender, no rebound guarding or rigidity, bowel sounds are normal, no pulsatile masses appreciated Extremities: Moving all extremities, no lower extremity tenderness or swelling noted, negative Homans' sign, pulses are brisk and equal bilaterally Skin: Normal in appearance without rash,pallor, petechiae or purpura Neuro: No focal deficits Constitutional Vital Signs, click to edit/add: Last Vital Signs Temp 99.3 F 12/29/24 20:58 Pulse 67 12/29/24 22:50 Resp 13 12/29/24 22:50 BP 141/54 12/29/24 23:48 Pulse Ox 92 L 12/29/24 23:50 O2 Del Method Room Air 12/29/24 20:58 Course Vital Signs Vital signs: Vital Signs Temperature 99.3 F 12/29/24 20:58 Pulse Rate 85 12/29/24 20:58 Respiratory Rate 18 12/29/24 20:58 Blood Pressure 173/85 H 12/29/24 20:58 Pulse Oximetry 96 12/29/24 20:58 Oxygen Delivery Method Room Air 12/29/24 20:58 Temperature 99.3 F 12/29/24 20:58 Pulse Rate 67 12/29/24 22:50 Respiratory Rate 13 12/29/24 22:50 Blood Pressure 141/54 12/29/24 23:48 Pulse Oximetry 92 L 12/29/24 23:50 Oxygen Delivery Method Room Air 12/29/24 20:58 Medical Decision Making MDM Narrative Medical decision making narrative: This 64-year-old female with a history of diverticulitis who was admitted here several months ago presents for evaluation of several days of low-grade fever with nausea, left lower quadrant abdominal pain and left flank pain. The patient states this pain radiates into her right upper quadrant and into her chest. She denies any shortness of breath dizziness or syncope. She has not been vomiting or having any diarrhea. Due to her complaint of chest pain an EKG was performed at triage which was a sinus rhythm at 80 bpm with a Q wave in lead III but otherwise normal EKG. An IV was placed and routine labs including lactic acid and 2 sets of blood cultures were ordered due to her complaints of recent fever with a low-grade temperature upon arrival at 99.3. She was medicated with IV fluids, Zofran and Toradol. On reevaluation she is still having some pain and was given a dose of Dilaudid. Cardiac workup was ordered. She has a normal troponin. Her white count is elevated at 19.1. She has a stable hemoglobin at 14.5. She has not have any GI bleeding. D-dimer was elevated at 0.85. Troponin is normal. Comprehensive metabolic profile was normal with a mildly elevated glucose at 149. Lactic acid was normal. 2 sets of blood cultures are pending at this time. Due to the elevated D-dimer with complaint of chest pain and abdominal pain a CT angio of the chest and CT of the abdomen pelvis with IV contrast was ordered. CT scan of the chest is normal with some pulmonary parenchymal scarring or atelectasis of the left lung base in the right lung base. There was no PE, no thoracic aortic aneurysm or dissection. CT scan of the abdomen pelvis shows acute diverticulitis at the splenic flexure and proximal descending colon segments with no bowel or renal obstruction, no pyelonephritis, no pneumatosis, no free air or abscess. She was given IV Flagyl and IV Cipro for the acute diverticulitis. In light of her fever, ongoing pain with elevated white count and acute diverticulitis she will be admitted for IV antibiotics and further management. The case was discussed with the hospitalist and she is excepted for admission to [facility]. Lab Data Lab results reviewed: Yes I reviewed the patient's lab results Labs: Lab Results 12/29/24 12/29/24 Range/Units 21:08 21:29 WBC 19.1 H (4.0-11.0) 10^3/uL RBC 4.82 (4.20-5.40) 10^6/uL Hgb 14.5 (12.0-16.0) g/dL Hct 43.2 (36.0-48.0) % MCV 89.6 (81.0-99.0) fL MCH 30.1 (26.7-34.0) pg MCHC 33.6 (29.9-35.2) g/dL RDW 13.0 (11.0-15.0) % Plt Count 310 (150-450) 10^3/uL MPV 9.0 L (9.5-13.5) fL Seg Neuts % (Manual) 72.0 (43.0-75.0) Lymphocytes % (Manual) 9.0 L (20.5-60.0) % Atypical Lymphs % (Man) 14.0 % Monocytes % (Manual) 4.0 (1.7-12.0) % Eosinophils % (Manual) 0.0 L (0.9-7.0) % Basophils % (Manual) 1.0 (0.2-2.0) % Promyelocytes % 1.0 Neutrophils # (Manual) 13.75 H (1.4-6.5) 10^3/uL Lymphocytes # (Manual) 1.71 (1.20-3.80) 10^3/uL Abs Atypical Lymphs Man 2.67 Monocytes # (Manual) 0.76 (0.30-0.80) 10^3/uL Eosinophils # (Manual) 0.00 (0.00-0.70) 10^3/uL Basophils # (Manual) 0.19 H (0.00-0.10) 10^3/uL Promyelocytes # 0.19 D-Dimer 0.85 H* (<=0.59) mg/L FEU Sodium 138 (136-145) mmol/L Potassium 3.5 (3.5-5.1) mmol/L Chloride 107 (98-107) mmol/L Carbon Dioxide 25.7 (21.0-32.0) mmol/L Anion Gap 8.8 BUN 26.0 H (7.0-18.0) mg/dL Creatinine 0.79 (0.55-1.02) mg/dL Est GFR ( Amer) >60 (>=60 mL/min/1.73m^2) Est GFR (Non-Af Amer) >60 (>=60 mL/min/1.73m^2) BUN/Creatinine Ratio 32.9 Glucose 149 H (74-106) mg/dL Lactate 1.3 (0.4-2.0) mmol/L Calcium 9.3 (8.5-10.1) mg/dL Total Bilirubin 0.3 (0.2-1.0) mg/dL AST 9 L (15-37) U/L ALT 20 (14-59) U/L Alkaline Phosphatase 79 (46-116) U/L Troponin I High Sens 4.8 (4.0-51.3) pg/mL Total Protein 7.7 (6.4-8.2) g/dL Albumin 3.5 (3.4-5.0) g/dL Globulin 4.2 g/dL Albumin/Globulin Ratio 0.8 Urine Color Lt. yellow (YELLOW) Urine Clarity Clear (CLEAR) Urine pH 5.5 (5.0-9.0) Ur Specific [place] 1.025 (1.005-1.025) Urine Protein Negative (NEG/TRACE) mg/dL Urine Glucose (UA) Negative (NEGATIVE) mg/dL Urine Ketones Negative (NEGATIVE) mg/dL Urine Occult Blood Small A (NEGATIVE) Urine Nitrite Negative (NEGATIVE) Urine Bilirubin Negative (NEGATIVE) Urine Urobilinogen 0.2 (0.2-1.0) EU/dL Ur Leukocyte Esterase Negative (NEGATIVE) Urine RBC 0-2 (0-2) #/HPF Urine WBC 0-2 A (NONE SEEN) #/HPF Ur Squamous Epith Cells Rare (NONE/RARE) #/LPF Urine Crystals Seen A (None Seen) #/HPF Amorphous Sediment Rare Urine Bacteria None seen (NONE SEEN) #/HPF Urine Casts None seen (NONE SEEN) #/LPF Urine Mucus None seen (NONE SEEN) Ur Culture Indicated? No ECG Data Attestation: I personally reviewed and interpreted this ECG as follows: (Sinus rhythm 80 bpm, normal axis, normal intervals, Q-wave noted in lead III, no acute ST segment elevation or T wave inversion) Discharge Plan Discharge Chief Complaint: Abdominal Pain Clinical Impression: Acute diverticulitis of intestine Patient Disposition: Admitted As Inpatient Time of Disposition Decision: 00:33 Condition: Good
[2024-12-29 21:27] LABS: Hematocrit 43.2 % (36.0-48.0); Hemoglobin 14.5 g/dL (12.0-16.0); Mean Corpuscular HGB Conc 33.6 g/dL (29.9-35.2); Mean Corpuscular Hemoglobin 30.1 pg (26.7-34.0); Mean Corpuscular Volume 89.6 fL (81.0-99.0); Platelet Count 310 10^3/uL (150-450); Red Blood Count 4.82 10^6/uL (4.20-5.40); White Blood Count 19.1 10^3/uL (4.0-11.0)
[2024-12-29] MEDS: 0.9 % SODIUM CHLORIDE 1,000 ML 1000 ML IV (21:35)
[2024-12-29] MEDS: KETOROLAC TROMETHAMINE 30 MG/ML VIAL IVP (21:35)
[2024-12-29 21:37] LABS: Glucose Urine UA NEGATIVE (NEGATIVE)
[2024-12-29 21:39] LABS: Lactate/Lactic Acid 1.3 mmol/L (0.4-2.0)
[2024-12-29 21:43] LABS: Atypical Lymphocytes % Manual 14.0 %; Atypical Lymphocytes Abs Man 2.67; Basophils Abs Manual 0.19 10^3/uL (0.00-0.10); Basophils Percent Manual 1.0 % (0.2-2.0); Eosinophils Absolute Manual 0.00 10^3/uL (0.00-0.70); Eosinophils Percent Manual 0.0 % (0.9-7.0); Lymphocytes Absolute Manual 1.71 10^3/uL (1.20-3.80); Lymphocytes Percent Manual 9.0 % (20.5-60.0); Monocytes Absolute Manual 0.76 10^3/uL (0.30-0.80); Monocytes Percent Manual 4.0 % (1.7-12.0); Promyelocytes % Manual 1.0; Promyelocytes Absolute Manual 0.19; Segmented Neut Absolute Manual 13.75 10^3/uL (1.4-6.5); Segmented Neutrophils % Manual 72.0 (43.0-75.0)
[2024-12-29 21:47] LABS: Alanine Aminotransferase 20 U/L (14-59); Albumin Globulin Ratio 0.8; Albumin Level 3.5 g/dL (3.4-5.0); Alkaline Phosphatase 79 U/L (46-116); Anion Gap 8.8; Aspartate Amino Transferase 9 U/L (15-37); Blood Urea Nitrogen 26.0 mg/dL (7.0-18.0); Calcium 9.3 mg/dL (8.5-10.1); Carbon Dioxide 25.7 mmol/L (21.0-32.0); Chloride 107 mmol/L (98-107); Estimated GFR (African America >60 (>=60 mL/min/1.73m^2); Estimated GFR (Non-African Ame >60 (>=60 mL/min/1.73m^2); Globulin 4.2 g/dL; Glucose 149 mg/dL (74-106); Potassium 3.5 mmol/L (3.5-5.1); Sodium 138 mmol/L (136-145); Total Protein 7.7 g/dL (6.4-8.2)
[2024-12-29 21:47] LABS: Cast Seen? NONE SEEN #/LPF (NONE SEEN); Crystals Seen? Seen #/HPF (None Seen); Urine Culture Indicated NO
[2024-12-29] MEDS: HYDROMORPHONE HCL 1 MG/ML CARTRIDGE IV (23:45)
[2024-12-30] VITALS (11 sets, daily range): BP systolic 112–144; BP diastolic 39–75; PULSE 60–77; TEMP 36.7–36.9; O2SAT 91–98; BMI 33.7
[2024-12-30] MEDS: 0.9 % SODIUM CHLORIDE 1,000 ML 125 ML IV (00:30)
[2024-12-30] MEDS: CIPROFLOXACIN IN 5 % DEXTROSE 400 MG/200 ML PREMIX 200 MG IV ×3 (00:30→23:25)
[2024-12-30] MEDS: METRONIDAZOLE/SODIUM CHLORIDE 500 MG/100 ML PREMIX 100 MG IV ×3 (01:36→15:34)
--- OUTSIDE RECORDS SUMMARY | 2024-12-30 02:41 | XMS_ITS | CCD ---
Author Organization [facility] [employer] Care Team Providers Care Marketing Assistant Manager Name Role Phone Cecilio Dumont Unavailable Unavailable Unavailable Julia Ayon Unavailable MD Cecilio Dumont Primary Care Provider [phone] MD Anneliese Garcia Attending Provider MD Anneliese Garcia Referring Provider DO Renny Walton Attending Provider Sharla Strange Unavailable MD Cecilio Dumont Primary Care Provider [phone] MARIA T Strange Attending Provider [phone] MD Cecilio Dumont Attending Provider CHEIKH ., DR HERNANDES Consulting Unavailable HOY ., DR HERNANDES Attending Unavailable HOY ., DR HERNANDES Admitting Unavailable HOY ., DR HERNANDES Primary Care Unavailable HOY ., DR HERNANDES Primary Care Unavailable HOY ., DR HERNANDES Consulting Unavailable HOY ., DR HERNANDES Attending Unavailable HOY ., DR HERNANDES Admitting Unavailable MD Cecilio Dumont Primary Care Provider [phone] DO Renny Walton Attending Provider Isabel Kent Unavailable Dr. Cecilio Dumont Primary Care Unavail able MD Cecilio Dumont Primary Care Provider [phone] YVROSE Kent Attending Provider MD Erika Escobedo Emergency Provider MD Nabil Baker Admit Provider [phone] MD Nabil Baker Attending Provider MD Anneliese Garcia Other Provider ANNELIESE GARCIA Referring Unavailable CECILIO DUMONT Primary Care Unavailable ANNELIESE GARCIA Referring Unavailable CECILIO DUMONT Primary Care Unavailable Cecilio Dumont MD Primary Care Provider [phone] MD Cecilio Dumont Primary Care Provider [facility], DO Renny Finch Attending Provider ANNELIESE GARCIA Attending Unavailable ANNELIESE GARCIA Referring Unavailable CECILIO DUMONT Primary Care Unavailable Cecilio Dumont MD Primary Care Provider [phone] Cecilio Dumont MD Attending Provider Unavailable Primary Care Provider UnavailCecilio Mcarthur MD Primary Care Provider [phone] Cecilio Dumont MD Primary Care Provider [phone] Isabel Kent APRN Attending Provider [phone] JOSEPH COBIAN Attending Unavailable CECILIO DUMONT Referring Unavailable JOSEPH COBIAN Attending Unavailable Cecilio Dumont Primary Care Physician Anthony IVERSON Attending Unavailable [facility] Renny JOHNSON Attending Provider John Benson MD Attending Provider [phone] Cecilio Dumont MD Primary Care Provider [phone] Cecilio Dumont MD Attending Provider [phone] Cecilio Dumont Admitting Unavailable Cecilio Dumont Primary Care Unavailable Cecilio Dumont Attending Unavailable Cecilio Dumont Admitting Unavailable Cecilio Dumont Primary Care Unavailable Cecilio Dumont [facility] Attending Unavailable Cecilio Dumont Primary Care [...] source) topiramate Drug Allergy 09-06-19 Diarrhea, Vomiting [facility] Cephalosporins (antibiotic) (1 source) Cefuroxime Drug Allergy 09-06-19 [facility] Dihydrofolate Reductase Inhibitors (antibiotic) (1 source) Trimethoprim Drug Allergy 09-06-19 [facility] Doxycycline (1 source) Doxycycline Drug Allergy 09-06-19 [facility] Macrolides (antibiotic) (1 source) Azithromycin Drug Allergy 09-06-19 [facility] Opioid Agonists (1 source) Morphine Drug Allergy 09-06-19 [facility] Penicillins (antibiotic) (2 sources) Amoxicillin Drug Allergy 09-06-19 [facility] Quinolones (antibiotic) (1 source) levoFLOXacin Drug Allergy 09-06-19 [facility] Sulfonamides (antibiotic) (1 source) Sulfamethoxazole Drug Allergy 09-06-19 [facility] (15 sources) Cefuroxime; Translations: [Ceftin] Drug Allergy Weal (disorder) [facility] [place] (20 sources) Penicillins; Translations: [Penicillins] Allergy to drug (finding) 06-17-19 09 Rash, Unknown Reaction, [facility] (3 sources) Morphine Derivatives; Translations: [Morphine Derivatives] Allergy to drug (finding) [address] Work Phone: (20 sources) Amoxicillin Drug Allergy 07-15-19 22 Unknown, [facility] (20 sources) Doxycycline; Translations: [doxycycline] Drug Allergy 07-15-19 22 Weal (disorder) [facility] (16 sources) Erythromycin; Translations: [ERYTHROMYCIN] Drug Allergy 06-17-19 09 Unknown, Weal (disorder) [facility] [place] Rep[facility] (10 sources) levoFLOXacin Drug Allergy Unknown [facility] [place] Other (20 sources) Morphine; Translations: [MORPHINE] Drug Allergy 07-15-19 22 Hives, Itching, Rash [facility] (11 sources) Sulfamethoxazole / Trimethoprim; Translations: [sulfamethoxazole-t rimethoprim] Drug Allergy Eruption of skin (disorder) [facility] [place] (20 sources) FLU Vacine Propensity to adverse reactions 05-31-19 24 dizzy[facility] (20 sources) Azithromycin Drug Allergy 07-15-19 22 [facility] (20 sources) Cefuroxime Drug Allergy 07-15-19 22 [facility] (20 sources) Sulfamethoxazole Drug Allergy 07-15-19 22 [facility] (20 sources) Trimethoprim Drug Allergy 07-15-19 22 [facility] (1 source) Amoxicillin Drug Allergy [facility] (1 source) Cefuroxime Drug Allergy 11-24-19 13 [facility] (2 sources) Codeine; Translations: [codeine] Drug Allergy 04-17-20 13 [facility] (2 sources) Doxycycline; Translations: [Vibramycin] Drug Allergy 11-24-19 13 [facility] (18 sources) Erythromycin Drug Allergy 11-24-19 13 Rash [facility] (1 source) Morphine Drug Allergy 11-24-19 13 [facility] (2 sources) traMADol; Translations: [Ultram] Drug Allergy 04-17-20 13 [facility] (1 source) Morphine Drug Allergy Unknown [facility] [place] Other (20 sources) topiramate; Translations: [TOPIRAMATE] Drug Allergy 03-14-20 23 Diarrhea, Multiple symptoms (finding) [facility] Repository (4 sources) Cefuroxime; Translations: [CEFUROXIME AXETIL] Drug Allergy 06-17-19 09 Rash [facility] Rep[facility] (18 sources) levoFLOXacin; Translations: [LEVOFLOXACIN] Drug Allergy 06-17-19 09 Unknown [facility] Comment on above: Pt indicates she can take this as of 12/20/2023. (4 sources) OTHER; Translations: [OTHER] Propensity to adverse reactions (disorder) 03-13-20 23 Hives, Itching, Fever [facility] Rep[facility] (1 source) ALLERGIES NOT ON FILE; Translations: [ALLERGIES NOT ON FILE] Propensity to adverse reactions (disorder) [facility] (2 sources) Penicillins Drug Allergy 06-17-19 09 [facility] Work Phone: (1 source) Codeine; Translations: [codeine] Drug Allergy Vomiting (disorder) [facility] [place] (2 sources) influenza A virus A//[id number] (H1N1) antigen / influenza A virus A//2014 (H3N2) antigen / influenza B virus B/Duvall antigen / influenza B virus B/ antigen; Translations: [influenza virus vaccine] Drug Allergy Weal (disorder) [facility] (2 sources) Penicillin; Translations: [penicillin] Drug Allergy Weal (disorder) [facility] (1 source) traMADol; Translations: [tramadol] Drug Allergy Hives [facility] (1 source) Sulfamethoxazole / Trimethoprim; Translations: [Bactrim] Drug Allergy [facility] Repository (1 source) topiramate; Translations: [Topamax] Drug Allergy [facility] Repository Medications Current Medications Medication Drug Class(es) [...] Start: 10-22-2021 take 1 capsule by mo [facility] once daily hydroCHLOROthiazide 12.5 MG Oral Capsule [...] 11:40am docusate sodium 50 mg / sennosides, mcfp 8.6 mg oral tablet (20 sources) Start: [...] By: Evaristo Sanchez on 12-26-2024 Study report [facility] [address] [place] [address] XRay Report Signed Patient: Nancy Hooper MR#: [id number] : 1960 Acct:[id number] Age/Sex: 64 / F ADM Date: 5 Loc: [facility] [place] Room: Type: [facility] Attending Dr: John Benson II, MD Copies to: John Benson MD~ Ordering Provider: John Benson MD Date of Service: 12/26/24 XR/XR knee RT 4V*: M25.561 - Pain in right knee 4 views right knee plain film COMPARISON: 08/08/2022 HISTORY: Right knee pain for months ACUTE FINDINGS: No acute findings DEGENERATIVE CHANGE: Progress of the medial degeneration with [id number] contact patellofemoral and lateral degeneration superior patellar enthesophyte SOFT TISSUE FINDINGS: Unremarkable JOINT EFFUSION: Small POSTOP CHANGES: None BONE MINERALIZATION: Adequate XR/XR knee RT 4V* IMPRESSION: Progression of extensive medial degeneration Impression dictated by: Juwan Sanchez M.D. 12/26/2024 11:45 AM Dictation Location: [place] [address] Transcribed By: [facility] 12/26/24 1145 Dictated By: Juwan Sanchez DO 12/26/24 1144 Signed By: 12/26/24 1145 [facility] Study report [facility] [address] [place] [address] XRay Report Signed Patient: Nancy Hooper MR#: [id number] : 1960 Acct:[id number] Age/Sex: 64 / F ADM Date: 5 Loc: [facility] [place] Room: Type: [facility] Attending Dr: John Benson II, MD [...] DO 12/26/24 1142 Signed By: 12/26/24 1144 [facility] XR knee RT 4V*on 12-26-2024 XR knee RT 4V* [facility] [address] [place] [address] XRay Report Signed Patient: Nancy Hooper MR#: [id number] 68 : 1960 Acct:[id number] Age/Sex: 64 / F ADM Date: 12/26/24 Loc: [facility] [place] Room: Type: [facility] Attending Dr: John Benson II, MD Copies to: John Benson MD Ordering Provider: John Benson MD Date of Service: 12/26/24 XR/XR knee RT 4V*: M25.561 - Pain in right knee 4 views right knee plain film COMPARISON: 08/08/2022 HISTORY: Right knee pain for months ACUTE FINDINGS: No acute findings DEGENERATIVE CHANGE: Progress of the medial degeneration with [id number] contact patellofemoral and lateral degeneration superior patellar enthesophyte SOFT TISSUE FINDINGS: Unremarkable JOINT EFFUSION: Small POSTOP CHANGES: None BONE MINERALIZATION: Adequate XR/XR knee RT 4V* IMPRESSION: Progression of extensive medial degeneration Impression dictated by: Juwan Sanchez M.D. 12/26/2024 11:45 AM Dictation Location: [facility]-20 Transcribed By: ADAM 12/26/24 1145 Dictated By: Juwan Sanchez DO 12/26/24 1144 Signed By: 12/26/24 1145 Normal [facility] XR pelvis 1-2Von 12-26-2024 XR pelvis 1-2V [facility] [address] [place] [address] XRay Report Signed Patient: Nancy Hooper MR#: [id number] 68 : 1960 Acct:[id number] Age/Sex: 64 / F ADM Date: 12/26/24 Loc: [facility] [place] Room: Type: [facility] Attending Dr: John Benson II, MD [...] Sanchez M.D. 12/26/2024 11:44 AM Dictation Location: [place] [address] Transcribed By: [facility] 12/26/24 1144 Dictated By: Juwan Sanchez DO 12/26/24 1142 Signed By: 12/26/24 1144 Normal [facility] Appearance of UrineOrdered B y: Cecilio Dumont on 12-24-2024 Appearance (U) Clear Normal Clear [facility] Comment on above: Order Comment: Name Collection Type:: Clean-Voided Midstream Performed By: #### C UU, ADDONUAPLUS ####[facility] [address] [place] [address] [facility] Bacteria [Presence] in Urine by AutomatedOrdered By: Cecilio Dumont on 12-24-2024 Bacteria Auto Ql (U) None seen [HPF] None Seen [facility] Bilirubin Test strip Ql (U)O rdered By: Cecilio Dumont on 12-24-2024 Bilirubin Ql (U) Negative Negative [facility] Calcium oxalate crystals [Pr esence] in Urine by Computer assisted methodOrdered By: Cecilio Dumont on 12-24-2024 Calcium oxalate crystals Computer assisted Ql (U) 3+ [HPF] [facility] Color of Urine by AutoOrdere d By: Cecilio Derekangelito on 12-24-2024 Color (U) Light-yellow Normal Yellow [facility] Comment on above: Order Comment: Name Collection Type:: Clean-Voided Midstream Performed By: #### C UU, ADDONUAPLUS ####[address] [address] [facility] Dipstick and Microscopicon 0 12-24-2024 Bacteria,Urine None Seen Normal None Seen [facility] Comment on above: Order Comment: Name Collection Type:: Clean-Voided Midstream Performed By: #### C UU, ADDONUAPLUS ####[address] [address] [facility] Bilirubin,Urine Negative Normal Negative [facility] Comment on above: Order Comment: Name Collection Type:: Clean-Voided Midstream Performed By: #### C UU, ADDONUAPLUS ####[address] [address] [facility] Calcium Oxalate Crystals,Urine 3+ [HPF] Normal [facility] Comment on above: Order Comment: Name Collection Type:: Clean-Voided Midstream Performed By: #### C UU, ADDONUAPLUS ####[address] [address] [facility] Glucose Ql (U) Normal Normal Normal [facility] Comment on above: Order Comment: Name Collection Type:: Clean-Voided Midstream Performed By: #### C UU, ADDONUAPLUS ####[address] [address] [facility] Hyaline Casts,Urine None Normal 0-8 [facility] Comment on above: Order Comment: Name Collection Type:: Clean-Voided Midstream Performed By: #### C UU, ADDONUAPLUS ####[address] [place] [address] [facility] Mucus,Urine Rare Normal [facility] Comment on above: Order Comment: Name Collection Type:: Clean-Voided Midstream Result Comment: PERF ORMED BY: [facility] [address] [place] [address] PATHOLOGIST ALODIZE MACHINE HELPER BASSAM BRADFORD M.D. Performed By: #### C UU, ADDONUAPLUS ####[place] [id number] [facility] Nitrite,Urine Negative Normal Negative [facility] Comment on above: Order Comment: Name Collection Type:: Clean-Voided Midstream Performed By: #### C UU, ADDONUAPLUS ####[address] Occult Blood,Urine Trace Normal Negative [facility] Comment on above: Order Comment: Name Collection Type:: Clean-Voided Midstream Performed By: #### C UU, ADDONUAPLUS ####[address] Protein,Urine Negative Normal Negative [facility] Comment on above: Order Comment: Name Collection Type:: Clean-Voided Midstream Performed By: #### C UU, ADDONUAPLUS ####[place] [id number] [facility] RBC,Urine 1-2 Normal 0-4 [facility] Comment on above: Order Comment: Name Collection Type:: Clean-Voided Midstream Performed By: #### C UU, ADDONUAPLUS ####[place] [id number] [facility] Specificy [place]ta,Urine 1.033 High 1.001-1.03 0 [facility] Comment on above: Order Comment: Name Collection Type:: Clean-Voided Midstream Performed By: #### C UU, ADDONUAPLUS ####[place] [id number] [facility] Squamous Epithelial Cell,Urine 1-2 Normal 0-2 [facility] Comment on above: Order Comment: Name Collection Type:: Clean-Voided Midstream Performed By: #### C UU, ADDONUAPLUS ####[place] [id number] [address] Urobilinogen,Urine Normal Normal Normal [facility] Comment on above: Order Comment: Name Collection Type:: Clean-Voided Midstream Performed By: #### C UU, ADDONUAPLUS ####[address] WBC,Urine 3-4 Normal 0-4 [facility] Comment on above: Order Comment: Name Collection Type:: Clean-Voided Midstream Performed By: #### C UU, ADDONUAPLUS ####[address] Epithelial cells.squamous [# /area] in Urine sediment by Automated countOrdered By: Cecilio Dumont on 12-24-2024 Epithelial cells.squamous Auto (Urine sed) [#/Area] 1-2 [HPF] 0-2 [facility] Erythrocytes [#/area] in Uri ne sediment by Automated countOrdered By: Cecilio Dumont on 12-24-2024 RBC Auto (Urine sed) [#/Area] 1-2 [HPF] 0-4 [facility] Glucose [Mass/volume] in Uri ne by Test stripOrdered By: Cecilio Dumont on 12-24-2024 Glucose Test strip (U) [Mass/Vol] Normal mg/dL Normal [facility] Hemoglobin Test strip Ql (U) Ordered By: Cecilio Dumont on 12-24-2024 Hemoglobin Ql (U) Trace High Negative [facility] Hyaline casts [#/area] in Ur ine sediment by Automated countOrdered By: Cecilio Dumont on 12-24-2024 Hyaline casts Auto (Urine sed) [#/Area] None [LPF] 0-8 [facility] Ketones [Presence] in Urine by Test stripOrdered By: Cecilio Dumont on 12-24-2024 Ketones Ql (U) Negative Normal Negative [facility] Comment on above: Order Comment: Name Collection Type:: Clean-Voided Midstream Performed By: #### C UU, ADDONUAPLUS ####[place] [address] [place] [id number] [facility] Leukocyte esterase [Presence ] in Urine by Test stripOrdered By: Cecilio Dumont on 12-24-2024 Leukocyte esterase Test strip Ql (U) Negative Normal Negative [facility] Comment on above: Order Comment: Name Collection Type:: Clean-Voided Midstream Performed By: #### C UU, ADDONUAPLUS ####[place] [address] [place] [id number] [facility] Leukocytes [#/area] in Urine sediment by Automated countOrdered By: Cecilio Dumont on 12-24-2024 WBC Auto (Urine sed) [#/Area] 3-4 [HPF] 0-4 [facility] Mucus [Presence] in Urine by AutomatedOrdered By: Cecilio Dumont on 12-24-2024 Mucus Auto Ql (U) Rare [LPF] [facility] Nitrite Test strip Ql (U)Ord ered By: Cecilio Dumont on 12-24-2024 Nitrite Ql (U) Negative Negative [facility] Protein Test strip (U) [Mass /Vol]Ordered By: Cecilio Dumont on 12-24-2024 Protein (U) [Mass/Vol] Negative Negative [facility] Specific gravity Test strip (U) [Rel density]Ordered By: Cecilio Dumont on 12-24-2024 Specific gravity (U) [Rel density] 1.033 High 1.001-1.03 0 [facility] Urine Cultureon 12-24-2024 Bacteria identified Cx Nom (U) <9,000 colonies/ml mixed bacterial skin contaminants 2 Days PERFORMED BY: [facility] [address] [place] [id number] PATHOLOGIST ALODIZE MACHINE HELPER BASSAM BRADFORD M.D. Normal [facility] Comment on above: Performed By: #### C UU, ADDONUAPLUS ####[place] [address] [place] [id number] [facility] Urine cultureOrdered By: Yg Dumont on 12-24-2024 Bacteria identified Cx Nom (U) 2 Days [facility] Urobilinogen Test strip (U) [Mass/Vol]Ordered By: Cecilio Dumont on 12-24-2024 Urobilinogen (U) [Mass/Vol] Normal mg/dL Normal [facility] pH of Urine by Test stripOrd ered By: Cecilio Dumont on 12-24-2024 pH (U) 5.5 [pH] Normal 5.0-9.0 [facility] Comment on above: Order Comment: Name Collection Type:: Clean-Voided Midstream Performed By: #### C UU, ADDONUAPLUS ####[facility] [id number] [place] [address] [place] Alanine aminotransferase [En zymatic activity/volume] in Serum or PlasmaOrdered By: Renny Walton on 12-20-2024 ALT [Catalytic activity/Vol] 16 U/L Normal 7-52 [facility] Comment on above: Performed By: #### P ILLAR CBC, EBS A1C, PILLAR LIPID, PILLAR CMP #### [facility] [address] [place] [address] [place] Albumin [Mass/volume] in Ser um or Plasma by Bromocresol green (BCG) dye binding methoOrdered By: Renny Walton on 12-20-2024 Albumin BCG dye [Mass/Vol] 4.2 g/dL 3.5-5.7 [facility] Alkaline phosphatase [Enzyma tic activity/volume] in Serum or PlasmaOrdered By: Renny Walton on 12-20-2024 ALP [Catalytic activity/Vol] 59 U/L Normal 34-104 [facility] Comment on above: Performed By: #### P ILLAR CBC, EBS A1C, PILLAR LIPID, PILLAR CMP #### [facility] [address] [place] [address] [place] Appearance of UrineOrdered B y: Cecilio Dumont on 12-20-2024 Appearance (U) Clear Normal Clear [facility] Comment on above: Order Comment: Name Collection Type:: Clean-Voided Midstream Performed By: #### C UU, ADDONUAPLUS #### [facility] [address] [place] [address] [place] Aspartate aminotransferase [ Enzymatic activity/volume] in Serum or PlasmaOrdered By: Renny Walton on 12-20-2024 AST [Catalytic activity/Vol] 13 U/L Normal 13-39 [facility] Comment on above: Performed By: #### P ILLAR CBC, EBS A1C, PILLAR LIPID, PILLAR CMP #### [facility] [address] Bacteria [Presence] in Urine by AutomatedOrdered By: Cecilio Dumont on 12-20-2024 Bacteria Auto Ql (U) None seen [HPF] None Seen [facility] Basophils [#/volume] in Bloo d by Automated countOrdered By: Renny Walton on 12-20-2024 Basophils (Bld) [#/Vol] 0.1 10*3/uL Normal 0.0-0.2 [facility] Comment on above: Result Comment: PERF ORMED BY: [address] [place] [address] PATHOLOGIST ALODIZE MACHINE HELPER BASSAM BRADFORD M.D. Performed By: #### P ILLAR CBC, EBS A1C, PILLAR LIPID, PILLAR CMP #### [facility] [address] [place] [address] Basophils/100 leukocytes in Blood by Automated countOrdered By: Renny Walton on 12-20-2024 Basophils/100 WBC (Bld) 1.1 % Normal . [facility] Comment on above: Performed By: #### P ILLAR CBC, EBS A1C, PILLAR LIPID, PILLAR CMP #### [facility] [address] [place] [address] Bilirubin Test strip Ql (U)O rdered By: Cecilio Dumont on 12-20-2024 Bilirubin Ql (U) Negative Negative [facility] Bilirubin.total [Mass/volume ] in Serum or PlasmaOrdered By: Renny Walton on 12-20-2024 Bilirubin [Mass/Vol] 0.5 mg/dL Normal 0.3-1.0 [facility] Comment on above: Performed By: #### P ILLAR CBC, EBS A1C, PILLAR LIPID, PILLAR CMP #### [facility] [address] [place] [address] Blood estimated average gluc ose determination by estimation from glycated hemoglobinOrdered By: Renny Walton on 12-20-2024 Average glucose Estimated from glycated hemoglobin (Bld) [Mass/Vol] 117 mg/dL [facility] Calcium [Mass/volume] in Ser um or PlasmaOrdered By: Renny Walton on 12-20-2024 Calcium [Mass/Vol] 9.6 mg/dL Normal 8.6-10.3 [facility] Comment on above: Performed By: #### P ILLAR CBC, EBS A1C, PILLAR LIPID, PILLAR CMP #### [facility] [address] [place] [address] [place] Carbon dioxide, total [Moles /volume] in Serum or PlasmaOrdered By: Renny Walton on 12-20-2024 CO2 [Moles/Vol] 28.9 mmol/L Normal 21.0-31.0 [facility] Comment on above: Performed By: #### P ILLAR CBC, EBS A1C, PILLAR LIPID, PILLAR CMP #### [facility] [address] [place] [address] [place] Chloride [Moles/volume] in S genaro or PlasmaOrdered By: Renny Walton on 12-20-2024 Chloride [Moles/Vol] 106 mmol/L Normal 98-107 [facility] Comment on above: Performed By: #### P ILLAR CBC, EBS A1C, PILLAR LIPID, PILLAR CMP #### [facility] [address] [place] [address] [place] Cholesterol [Mass/volume] in Serum or PlasmaOrdered By: Renny Walton on 12-20-2024 Cholesterol [Mass/Vol] 178 mg/dL Normal 140-200 [facility] Comment on above: Chol less than 200 m g/dl low riskChol 201-239 mg/dl borderline riskChol 240 mg/dl and greater high risk Result Comment: Chol less than 200 mg/dl low risk Chol 201-239 mg/dl borderline risk Chol 240 mg/dl and greater high risk Performed By: #### P ILLAR CBC, EBS A1C, PILLAR LIPID, PILLAR CMP #### [facility] [address] [place] [id number] [place] Cholesterol in HDL [Mass/vol ume] in Serum or PlasmaOrdered By: Renny Walton on 12-20-2024 Cholesterol in HDL [Mass/Vol] 52 mg/dL Normal 23-92 [facility] Comment on above: HDL CHOL ATP-III CLA SSIFICATION Cardiovascular RiskHDL > or equal to 60 mg/dL LOWHDL < 40 mg/dL HIGH Result Comment: HDL CHOL ATP-III CLASSIFICATION Cardiovascular Risk HDL > or equal to 60 mg/dL LOW HDL < 40 mg/dL HIGH Performed By: #### P ILLAR CBC, EBS A1C, PILLAR LIPID, PILLAR CMP #### [facility] [address] [place] [address] [place] Cholesterol in LDL Calc [Mas s/Vol]Ordered By: Renny Walton on 12-20-2024 Cholesterol in LDL [Mass/Vol] 90 mg/dL 0-100 [facility] Comment on above: LDL ATP III CLASSIFI CATIONLDL less than 100 mg/dL OptimalLDL 100-129 mg/dL Near or above optimalLDL 130-159 mg/dL Borderline highLDL 160-189 mg/dL HighLDL greater than 189 mg/dL Very high Cholesterol in VLDL Calc [Ma ss/Vol]Ordered By: Renny Walton on 12-20-2024 Cholesterol in VLDL [Mass/Vol] 35 mg/dL [facility] Color of Urine by AutoOrdere d By: Cecilio Dumont on 12-20-2024 Color (U) Light-yellow Normal Yellow [facility] Comment on above: Order Comment: Name Collection Type:: Clean-Voided Midstream Performed By: #### C UU, ADDONUAPLUS #### [facility] [address] [place] [address] [place] Creatinine [Mass/volume] in Serum or PlasmaOrdered By: Renny Walton on 12-20-2024 Creatinine [Mass/Vol] 0.61 mg/dL Normal 0.60-1.20 [facility] Comment on above: Performed By: #### P ILLAR CBC, EBS A1C, PILLAR LIPID, PILLAR CMP #### [facility] [address] [place] [id number] [place] Dipstick and Microscopicon 0 12-20-2024 Bacteria,Urine None Seen Normal None Seen [facility] Comment on above: Order Comment: Name Collection Type:: Clean-Voided Midstream Performed By: #### C UU, ADDONUAPLUS #### [place] [id number] [place] Bilirubin,Urine Negative Normal Negative [facility] Comment on above: Order Comment: Name Collection Type:: Clean-Voided Midstream Performed By: #### C UU, ADDONUAPLUS #### [address] Glucose Ql (U) Normal Normal Normal [facility] Comment on above: Order Comment: Name Collection Type:: Clean-Voided Midstream Performed By: #### C UU, ADDONUAPLUS #### [place] [address] [place] Hyaline Casts,Urine None Normal 0-8 [facility] Comment on above: Order Comment: Name Collection Type:: Clean-Voided Midstream Performed By: #### C UU, ADDONUAPLUS #### [place] [address] [place] Mucus,Urine Rare Normal [facility] Comment on above: Order Comment: Name Collection Type:: Clean-Voided Midstream Result Comment: PERF ORMED BY: [place] [address] PATHOLOGIST [employer] MACHINE HELPER BASSAM BRADFORD M.D. Performed By: #### C UU, ADDONUAPLUS #### [place] [id number] [place] Nitrite,Urine Negative Normal Negative [facility] Comment on above: Order Comment: Name Collection Type:: Clean-Voided Midstream Performed By: #### C UU, ADDONUAPLUS #### [place] [id number] [place] Occult Blood,Urine 1+ Normal Negative [facility] Comment on above: Order Comment: Name Collection Type:: Clean-Voided Midstream Result Comment: PERF ORMED BY: [place] [address] PATHOLOGIST [employer] MACHINE HELPER BASSAM BRADFORD M.D. Performed By: #### C UU, ADDONUAPLUS #### [address] Protein,Urine Negative Normal Negative [facility] Comment on above: Order Comment: Name Collection Type:: Clean-Voided Midstream Performed By: #### C UU, ADDONUAPLUS #### [address] RBC,Urine 1-2 Normal 0-4 [facility] Comment on above: Order Comment: Name Collection Type:: Clean-Voided Midstream Performed By: #### C UU, ADDONUAPLUS #### [address] Specificy [place],Urine 1.020 Normal 1.001-1.03 0 [facility] Comment on above: Order Comment: Name Collection Type:: Clean-Voided Midstream Performed By: #### C UU, ADDONUAPLUS #### [address] Squamous Epithelial Cell,Urine 1-2 Normal 0-2 [facility] Comment on above: Order Comment: Name Collection Type:: Clean-Voided Midstream Performed By: #### C UU, ADDONUAPLUS #### [address] Urobilinogen,Urine Normal Normal Normal [facility] Comment on above: Order Comment: Name Collection Type:: Clean-Voided Midstream Performed By: #### C UU, ADDONUAPLUS #### [place] [address] [place] WBC,Urine 1-2 Normal 0-4 [facility] Comment on above: Order Comment: Name Collection Type:: Clean-Voided Midstream Performed By: #### C UU, ADDONUAPLUS #### [address] EBS A1C with Estimated Ave Chano martinez 12-20-2024 Glucose [Mass/Vol] 117 mg/dL Normal [facility] Comment on above: Result Comment: PERF ORMED BY: [place] [address] PATHOLOGIST [employer] MACHINE HELPER BASSAM BRADFORD M.D. Performed By: #### P ILLAR CBC, EBS A1C, PILLAR LIPID, PILLAR CMP #### [address] Employee Comp Metabolic Pane eliezer 12-20-2024 Albumin [Mass/Vol] 4.2 g/dL Normal 3.5-5.7 [facility] Comment on above: Performed By: #### P ILLAR CBC, EBS A1C, PILLAR LIPID, PILLAR CMP #### [address] GFR/1.73 sq M.predicted MDRD (S/P/Bld) [Vol rate/Area] mL/min/{1.73_m2} Normal [facility] Comment on above: Performed By: #### P ILLAR CBC, EBS A1C, PILLAR LIPID, PILLAR CMP #### [address] Employee Complete Blood Coun ton 12-20-2024 Mean Corpuscular HGB Conc 33.6 g/dL Normal 32.0-35.0 [facility] Comment on above: Performed By: #### P ILLAR CBC, EBS A1C, PILLAR LIPID, PILLAR CMP #### [address] NRBC% 0.0 /100{WBC} Normal 0-0.5 [facility] Comment on above: Performed By: #### P ILLAR CBC, EBS A1C, PILLAR LIPID, PILLAR CMP #### [address] White Blood Count 7.4 [CFU]/mL Normal 3.8-11.6 [facility] Comment on above: Performed By: #### P ILLAR CBC, EBS A1C, PILLAR LIPID, PILLAR CMP #### [address] Employee Lipid Profileon LDL Cholesterol,Calculated 90 mg/dL Normal 0-100 [facility] Comment on above: Result Comment: LDL ATP III CLASSIFICATION LDL less than 100 mg/dL Optimal LDL 100-129 mg/dL Near or above optimal LDL 130-159 mg/dL Borderline high LDL 160-189 mg/dL High LDL greater than 189 mg/dL Very high Performed By: #### P ILLAR CBC, EBS A1C, PILLAR LIPID, PILLAR CMP #### [facility] [address] Triglyceride w/Reflex 178 mg/dL High 0-149 [facility] Comment on above: Result Comment: TRIG ATP III CLASSIFICATION TRIG less than 150 mg/dL Normal TRIG 150-199 mg/dL Borderline high TRIG 200-500 mg/dL High TRIG greater than 500 mg/dL Very high Standard traceable to the Center for Disease Conrtrol and Prevention (CDC) test method. Performed By: #### P ILLAR CBC, EBS A1C, PILLAR LIPID, PILLAR CMP #### [facility] [address] [place] [address] VLDL CHOLESTEROL 35 mg/dL Normal [facility] Comment on above: Performed By: #### P ILLAR CBC, EBS A1C, PILLAR LIPID, PILLAR CMP #### [facility] [address] [place] [address] Eosinophils [#/volume] in Bl ood by Automated countOrdered By: Renny Walton on 12-20-2024 Eosinophils (Bld) [#/Vol] 0.1 10*3/uL Normal 0.0-0.45 [facility] Comment on above: Performed By: #### P ILLAR CBC, EBS A1C, PILLAR LIPID, PILLAR CMP #### [facility] [address] [place] [address] [place] Eosinophils/100 leukocytes i n Blood by Automated countOrdered By: Renny Walton on 12-20-2024 Eosinophils/100 WBC (Bld) 1.6 % Normal . [facility] Comment on above: Performed By: #### P ILLAR CBC, EBS A1C, PILLAR LIPID, PILLAR CMP #### [facility] [address] [place] [address] Epithelial cells.squamous [# /area] in Urine sediment by Automated countOrdered By: Cecilio Dumont on 12-20-2024 Epithelial cells.squamous Auto (Urine sed) [#/Area] 1-2 [HPF] 0-2 [facility] Erythrocyte distribution wid th [Ratio] by Automated countOrdered By: Renny Walton on 12-20-2024 Erythrocyte distribution width (RBC) [Ratio] 13.3 % Normal 11.9-15.3 [facility] Comment on above: Performed By: #### P ILLAR CBC, EBS A1C, PILLAR LIPID, PILLAR CMP #### [facility] [address] [place] [address] Erythrocytes [#/area] in Uri ne sediment by Automated countOrdered By: Cecilio Dumont on 12-20-2024 RBC Auto (Urine sed) [#/Area] 1-2 [HPF] 0-4 [facility] Erythrocytes [#/volume] in B lood by Automated countOrdered By: Renny Walton on 12-20-2024 RBC (Bld) [#/Vol] 4.84 10*6/uL Normal 3.60-5.00 [facility] Comment on above: Performed By: #### P ILLAR CBC, EBS A1C, PILLAR LIPID, PILLAR CMP #### [facility] [address] [place] [address] Glucose [Mass/volume] in Ser um or PlasmaOrdered By: Renny Walton on 12-20-2024 Glucose [Mass/Vol] 111 mg/dL High 70-100 [facility] Comment on above: ADA recommended refe rence range Result Comment: ADA recommended reference range Performed By: #### P ILLAR CBC, EBS A1C, PILLAR LIPID, PILLAR CMP #### [facility] [address] [place] [address] [place] Glucose [Mass/volume] in Uri ne by Test stripOrdered By: Cecilio Dumont on 12-20-2024 Glucose Test strip (U) [Mass/Vol] Normal mg/dL Normal [facility] Hematocrit [Volume Fraction] of Blood by Automated countOrdered By: Renny Walton on 12-20-2024 Hematocrit (Bld) [Volume fraction] 43.0 % Normal 34.0-46.4 [facility] Comment on above: Performed By: #### P ILLAR CBC, EBS A1C, PILLAR LIPID, PILLAR CMP #### [facility] [address] [place] [address] Hemoglobin A1c measurementOr dered By: Renny Walton on 12-20-2024 HbA1c (Bld) [Mass fraction] 5.7 % High 4.3-5.6 [facility] Comment on above: Increased risk for d iabetes: 5.7 - 6.4diabetes: >6.4glycemic control for adults with diabetes: <7.0 Result Comment: Incr eased risk for diabetes: 5.7 - 6.4 diabetes: >6.4 glycemic control for adults with diabetes: <7.0 Performed By: #### P ILLAR CBC, EBS A1C, PILLAR LIPID, PILLAR CMP #### [facility] [address] [place] [address] Hemoglobin Test strip Ql (U) Ordered By: Cecilio Dumont on 12-20-2024 Hemoglobin Ql (U) 1+ High Negative [facility] Hemoglobin [Mass/volume] in BloodOrdered By: Renny Walton on 12-20-2024 Hemoglobin (Bld) [Mass/Vol] 14.5 g/dL Normal 11.8-15.4 [facility] Comment on above: Performed By: #### P ILLAR CBC, EBS A1C, PILLAR LIPID, PILLAR CMP #### [facility] [address] [place] [address] Hyaline casts [#/area] in Ur ine sediment by Automated countOrdered By: Cecilio Dumont on 12-20-2024 Hyaline casts Auto (Urine sed) [#/Area] None [LPF] 0-8 [facility] Ketones [Presence] in Urine by Test stripOrdered By: Cecilio Dumont on 12-20-2024 Ketones Ql (U) Negative Normal Negative [facility] Comment on above: Order Comment: Name Collection Type:: Clean-Voided Midstream Performed By: #### C UU, ADDMARIA FERNANDAUAPLUS #### [facility] [address] [place] [address] [place] Leukocyte esterase [Presence ] in Urine by Test stripOrdered By: Cecilio Dumont on 12-20-2024 Leukocyte esterase Test strip Ql (U) Negative Normal Negative [facility] Comment on above: Order Comment: Name Collection Type:: Clean-Voided Midstream Performed By: #### C UU, ADDONUAPLUS #### [facility] [address] [place] [address] [place] Leukocytes [#/area] in Urine sediment by Automated countOrdered By: Cecilio Dumont on 12-20-2024 WBC Auto (Urine sed) [#/Area] 1-2 [HPF] 0-4 [facility] Leukocytes [#/volume] correc arni for nucleated erythrocytes in Blood by Automated counOrdered By: Renny Walton on 12-20-2024 WBC corrected for nucl RBC Auto (Bld) [#/Vol] 7.4 10*3/uL 3.8-11.6 [facility] Leukocytes [#/volume] in Blo od by Automated countOrdered By: Renny Walton on 12-20-2024 WBC (Bld) [#/Vol] 7.4 10*3/uL Normal 3.8-11.6 [facility] Comment on above: Performed By: #### P ILLAR CBC, EBS A1C, PILLAR LIPID, PILLAR CMP #### [facility] [address] [place] [address] [place] Lymphocytes [#/volume] in Bl ood by Automated countOrdered By: Renny Walton on 12-20-2024 Lymphocytes (Bld) [#/Vol] 2.4 10*3/uL Normal 1.00-4.8 [facility] Comment on above: Performed By: #### P ILLAR CBC, EBS A1C, PILLAR LIPID, PILLAR CMP #### [facility] [address] [place] [address] [place] Lymphocytes/100 leukocytes i n Blood by Automated countOrdered By: Renny Walton on 12-20-2024 Lymphocytes/100 WBC (Bld) 32.1 % Normal . [facility] Comment on above: Performed By: #### P ILLAR CBC, EBS A1C, PILLAR LIPID, PILLAR CMP #### [facility] [address] [place] [address] [place] MCH [Entitic mass] by Automa rani countOrdered By: Renny Walton on 12-20-2024 MCH (RBC) [Entitic mass] 29.9 pg Normal 24.7-34.3 [facility] Comment on above: Performed By: #### P ILLAR CBC, EBS A1C, PILLAR LIPID, PILLAR CMP #### [facility] [address] MCHC Auto (RBC) [Mass/Vol]Or dered By: Renny Walton on 12-20-2024 MCHC (RBC) [Mass/Vol] 33.6 g/dL 32.0-35.0 [facility] MCV [Entitic volume] by Auto mated countOrdered By: Renny Walton on 12-20-2024 MCV (RBC) [Entitic vol] 88.8 fL Normal 80-100 [facility] Comment on above: Performed By: #### P ILLAR CBC, EBS A1C, PILLAR LIPID, PILLAR CMP #### [facility] [address] [place] [address] [place] Monocytes [#/volume] in Bloo d by Automated countOrdered By: Renny Walton on 12-20-2024 Monocytes (Bld) [#/Vol] 0.6 10*3/uL Normal 0.0-0.8 [facility] Comment on above: Performed By: #### P ILLAR CBC, EBS A1C, PILLAR LIPID, PILLAR CMP #### [facility] [address] [place] [address] [place] Monocytes/100 leukocytes in Blood by Automated countOrdered By: Renny Walton on 12-20-2024 Monocytes/100 WBC (Bld) 8.6 % Normal . [facility] Comment on above: Performed By: #### P ILLAR CBC, EBS A1C, PILLAR LIPID, PILLAR CMP #### [facility] [address] [place] [address] [place] Mucus [Presence] in Urine by AutomatedOrdered By: Cecilio Dumont on 12-20-2024 Mucus Auto Ql (U) Rare [LPF] [facility] Neutrophils [#/volume] in Bl ood by Automated countOrdered By: Renny Walton on 12-20-2024 Neutrophils (Bld) [#/Vol] 4.2 10*3/uL Normal 1.8-7.7 [facility] Comment on above: Performed By: #### P ILLAR CBC, EBS A1C, PILLAR LIPID, PILLAR CMP #### [facility] [address] [place] [address] [place] Neutrophils/100 leukocytes i n Blood by Automated countOrdered By: Renny Walton on 12-20-2024 Neutrophils/100 WBC (Bld) 56.6 % Normal . [facility] Comment on above: Performed By: #### P ILLAR CBC, EBS A1C, PILLAR LIPID, PILLAR CMP #### [facility] [address] Nitrite Test strip Ql (U)Ord ered By: Cecilio Dumont on 12-20-2024 Nitrite Ql (U) Negative Negative [facility] No Panel InformationOrdered By: Renny Walton on 12-20-2024 Estimated GFR (CKD-EPI) > 60.0 mL/Min [facility] Creatinine Clearance (Chem N/A [facility] Nucleated erythrocytes [Pres ence] in Blood by Automated countOrdered By: Renny Walton on 12-20-2024 Nucleated RBC Auto Ql (Bld) 0.0 /100{WBC} 0-0.5 [facility] Platelet mean volume [Entiti c volume] in Blood by Automated countOrdered By: Renny Walton on 12-20-2024 Platelet mean volume (Bld) [Entitic vol] 6.7 fL Normal 6.3-10.7 [facility] Comment on above: Performed By: #### P ILLAR CBC, EBS A1C, PILLAR LIPID, PILLAR CMP #### [facility] [address] [place] [address] [place] Platelets [#/volume] in Bloo d by Automated countOrdered By: Renny Walton on 12-20-2024 Platelets (Bld) [#/Vol] 332 10*3/uL Normal 150-450 [facility] Comment on above: Performed By: #### P ILLAR CBC, EBS A1C, PILLAR LIPID, PILLAR CMP #### [facility] [address] Potassium [Moles/volume] in Serum or PlasmaOrdered By: Renny Walton on 12-20-2024 Potassium [Moles/Vol] 4.0 mmol/L Normal 3.5-5.1 [facility] Comment on above: Performed By: #### P ILLAR CBC, EBS A1C, PILLAR LIPID, PILLAR CMP #### [facility] [address] Protein Test strip (U) [Mass /Vol]Ordered By: Cecilio Dumont on 12-20-2024 Protein (U) [Mass/Vol] Negative Negative [facility] Protein [Mass/volume] in Ser um or PlasmaOrdered By: Renny Walton on 12-20-2024 Protein [Mass/Vol] 7.0 g/dL Normal 6.4-8.9 [facility] Comment on above: Performed By: #### P ILLAR CBC, EBS A1C, PILLAR LIPID, PILLAR CMP #### [facility] [address] Serum globulin measurement b y calculation (mass/volume)Ordered By: Renny Walton on 12-20-2024 Globulin (S) [Mass/Vol] 2.8 g/dL [facility] Comment on above: Performed By: #### P ILLAR CBC, EBS A1C, PILLAR LIPID, PILLAR CMP #### [facility] [address] Serum or plasma albumin/glob ulin mass ratioOrdered By: Renny Walton on 12-20-2024 Albumin/Globulin [Mass ratio] 1.5 {ratio} [facility] Comment on above: Performed By: #### P ILLAR CBC, EBS A1C, PILLAR LIPID, PILLAR CMP #### [facility] [address] Serum or plasma anion gap de terminationOrdered By: Renny Walton on 12-20-2024 Anion gap [Moles/Vol] 9.1 mmol/L Normal 6.0-15.0 [facility] Comment on above: Performed By: #### P ILLAR CBC, EBS A1C, PILLAR LIPID, PILLAR CMP #### [facility] [address] Serum or plasma total choles terol/high density lipoprotein (HDL) cholesterol mass ratOrdered By: Renny Walton on 12-20-2024 Cholesterol.total/Chol esterol in HDL [Mass ratio] 3.4 {ratio} Normal <5.0 [facility] Comment on above: Result Comment: PERF ORMED BY: [place] [address] PATHOLOGIST [employer] MACHINE HELPER BASSAM BRADFORD M.D. Performed By: #### P ILLAR CBC, EBS A1C, PILLAR LIPID, PILLAR CMP #### [facility] [address] Sodium [Moles/volume] in Ser um or PlasmaOrdered By: Renny Walton on 12-20-2024 Sodium [Moles/Vol] 140 mmol/L Normal 136-145 [facility] Comment on above: Performed By: #### P ILLAR CBC, EBS A1C, PILLAR LIPID, PILLAR CMP #### [facility] [address] Specific gravity Test strip (U) [Rel density]Ordered By: Cecilio Dumont on 12-20-2024 Specific gravity (U) [Rel density] 1.020 1.001-1.03 0 [facility] Triglyceride [Mass/volume] i n Serum or PlasmaOrdered By: Renny Walton on 12-20-2024 Triglyceride [Mass/Vol] 178 mg/dL High 0-149 [facility] Comment on above: TRIG ATP III CLASSIF ICATIONTRIG less than 150 mg/dL NormalTRIG 150-199 mg/dL Borderline highTRIG 200-500 mg/dL High TRIG greater than 500 mg/dL Very highStandard traceable to the Center for Disease Conrtrol and Prevention (CDC) test method. Urea nitrogen [Mass/volume] in Serum or PlasmaOrdered By: Renny Walton on 12-20-2024 Urea nitrogen [Mass/Vol] 20 mg/dL Normal 7-25 [facility] Comment on above: Performed By: #### P ILLAR CBC, EBS A1C, PILLAR LIPID, PILLAR CMP #### [facility] [address] Urine Cultureon 12-20-2024 Bacteria identified Cx Nom (U) Urine Culture Results >100,000 col/ml Mixed Bacterial Skin Contaminants 2 Days PERFORMED BY: [place] [address] PATHOLOGIST [employer] MACHINE HELPER BASSAM BRADFORD M.D. Normal [facility] Comment on above: Performed By: #### C UU, ADDONUAPLUS ####[facility] [id number] Urine cultureOrdered By: Yg Dumont on 12-20-2024 Bacteria identified Cx Nom (U) [facility] Urobilinogen Test strip (U) [Mass/Vol]Ordered By: Cecilio Dumont on 12-20-2024 Urobilinogen (U) [Mass/Vol] Normal mg/dL Normal [facility] pH of Urine by Test stripOrd ered By: Cecilio Dumont on 12-20-2024 pH (U) 5.0 [pH] Normal 5.0-9.0 [facility] Comment on above: Order Comment: Name Collection Type:: Clean-Voided Midstream Performed By: #### C UU, ADDONUAPLUS #### [facility] [address] Ambulatory Visit Summaryon 0 12-03-2024 Ambulatory [...] signed up for this yet, please contact [employer] at [phone] to get signed up today. Language Information Language assistance services are available as needed. Normal [facility] Appearance of UrineOrdered B y: Cecilio Dumont on 12-03-2024 Appearance (U) Clear Normal Clear [facility] Comment on above: Order Comment: Name Collection Type:: Clean-Voided Midstream Performed By: #### A DDONUAPLUS, CUU #### [place] [address] [place] Bacteria [Presence] in Urine by AutomatedOrdered By: Cecilio Dumont on 12-03-2024 Bacteria Auto Ql (U) None seen [HPF] None Seen [facility] Bilirubin Test strip Ql (U)O rdered By: Cecilio Dumont on 12-03-2024 Bilirubin Ql (U) Negative Negative [facility] Color of Urine by AutoOrdere d By: Cecilio Dumont on 12-03-2024 Color (U) Light-yellow Normal Yellow [facility] Comment on above: Order Comment: Name Collection Type:: Clean-Voided Midstream Performed By: #### A DDONUAPLUS, CUU #### [facility] [address] [place], [place] [id number] [place] Dipstick and Microscopicon 0 12-03-2024 Bacteria,Urine None Seen Normal None Seen [facility] Comment on above: Order Comment: Name Collection Type:: Clean-Voided Midstream Performed By: #### A DDONUAPLUS, CUU #### [facility] [address] [place] [address] [place] Bilirubin,Urine Negative Normal Negative [facility] Comment on above: Order Comment: Name Collection Type:: Clean-Voided Midstream Performed By: #### A DDONUAPLUS, CUU #### [facility] [address] [place] [id number] [place] Glucose Ql (U) Normal Normal Normal [facility] Comment on above: Order Comment: Name Collection Type:: Clean-Voided Midstream Performed By: #### A DDONUAPLUS, CUU #### [facility] [address] [place] [id number] [place] Hyaline Casts,Urine None Normal 0-8 [facility] Comment on above: Order Comment: Name Collection Type:: Clean-Voided Midstream Result Comment: PERF ORMED BY: [place] [address] PATHOLOGIST [employer] MACHINE HELPER BASSAM BRADFORD M.D. Performed By: #### A DDONUAPLUS, CUU #### [place] [id number] [place] Nitrite,Urine Negative Normal Negative [facility] Comment on above: Order Comment: Name Collection Type:: Clean-Voided Midstream Performed By: #### A DDONUAPLUS, CUU #### [place] [id number] [place] Occult Blood,Urine Negative Normal Negative [facility] Comment on above: Order Comment: Name Collection Type:: Clean-Voided Midstream Performed By: #### A DDONUAPLUS, CUU #### [place] [address] [place] Protein,Urine Negative Normal Negative [facility] Comment on above: Order Comment: Name Collection Type:: Clean-Voided Midstream Performed By: #### A DDONUAPLUS, CUU #### [facility] [address] [place] [id number] [place] RBC,Urine None Seen Normal 0-4 [facility] Comment on above: Order Comment: Name Collection Type:: Clean-Voided Midstream Performed By: #### A DDONUAPLUS, CUU #### [facility] [address] [address] Specificy [place],Urine 1.011 Normal 1.001-1.03 0 [facility] Comment on above: Order Comment: Name Collection Type:: Clean-Voided Midstream Performed By: #### A DDONUAPLUS, CUU #### [address] Squamous Epithelial Cell,Urine 1-2 Normal 0-2 [facility] Comment on above: Order Comment: Name Collection Type:: Clean-Voided Midstream Performed By: #### A DDONUAPLUS, CUU #### [address] Urobilinogen,Urine Normal Normal Normal [facility] Comment on above: Order Comment: Name Collection Type:: Clean-Voided Midstream Performed By: #### A DDONUAPLUS, CUU #### [address] WBC,Urine 1-2 Normal 0-4 [facility] Comment on above: Order Comment: Name Collection Type:: Clean-Voided Midstream Performed By: #### A DDONUAPLUS, CUU #### [address] Epithelial cells.squamous [# /area] in Urine sediment by Automated countOrdered By: Cecilio Dumont on 12-03-2024 Epithelial cells.squamous Auto (Urine sed) [#/Area] 1-2 [HPF] 0-2 [facility] Erythrocytes [#/area] in Uri ne sediment by Automated countOrdered By: Cecilio Dumont on 12-03-2024 RBC Auto (Urine sed) [#/Area] None seen [HPF] 0-4 [facility] Glucose [Mass/volume] in Uri ne by Test stripOrdered By: Cecilio Dumont on 12-03-2024 Glucose Test strip (U) [Mass/Vol] Normal mg/dL Normal [facility] Hemoglobin Test strip Ql (U) Ordered By: Cecilio Dumont on 12-03-2024 Hemoglobin Ql (U) Negative Negative [facility] Hyaline casts [#/area] in Ur ine sediment by Automated countOrdered By: Cecilio Dumont on 12-03-2024 Hyaline casts Auto (Urine sed) [#/Area] None [LPF] 0-8 [facility] Ketones [Presence] in Urine by Test stripOrdered By: Cecilio Dumont on 12-03-2024 Ketones Ql (U) Negative Normal Negative [facility] Comment on above: Order Comment: Name Collection Type:: Clean-Voided Midstream Performed By: #### A DDONUAPLUS, CUU #### [place] [address] [place] Leukocyte esterase [Presence ] in Urine by Test stripOrdered By: Cecilio Dumont on 12-03-2024 Leukocyte esterase Test strip Ql (U) Negative Normal Negative [facility] Comment on above: Order Comment: Name Collection Type:: Clean-Voided Midstream Performed By: #### A DDONUAPLUS, CUU #### [facility] [address] [place] [address] [place] Leukocytes [#/area] in Urine sediment by Automated countOrdered By: Cecilio Dumont on 12-03-2024 WBC Auto (Urine sed) [#/Area] 1-2 [HPF] 0-4 [facility] Nitrite Test strip Ql (U)Ord ered By: Cecilio Dumont on 12-03-2024 Nitrite Ql (U) Negative Negative [facility] Protein Test strip (U) [Mass /Vol]Ordered By: Cecilio Dumont on 12-03-2024 Protein (U) [Mass/Vol] Negative Negative [facility] Specific gravity Test strip (U) [Rel density]Ordered By: Cecilio Dumont on 12-03-2024 Specific gravity (U) [Rel density] 1.011 1.001-1.03 0 [facility] Urine Cultureon 12-03-2024 Bacteria identified Cx Nom (U) >100,000 colonies/ml mixed bacterial skin contaminants 2 Days PERFORMED BY: [place] [address] PATHOLOGIST [employer]OD[employer] MACHINE HELPER BASSAM BRADFORD M.D. Normal [facility] Comment on above: Performed By: #### A DDONUAPLUS, CUU #### [facility] [address] [place] [address] Urine cultureOrdered By: Yg Dumont on 12-03-2024 Bacteria identified Cx Nom (U) 2 Days [facility] Urobilinogen Test strip (U) [Mass/Vol]Ordered By: Cecilio Dumont on 12-03-2024 Urobilinogen (U) [Mass/Vol] Normal mg/dL Normal [facility] pH of Urine by Test stripOrd ered By: Cecilio Dumont on 12-03-2024 pH (U) 5.5 [pH] Normal 5.0-9.0 [facility] Comment on above: Order Comment: Name Collection Type:: Clean-Voided Midstream Performed By: #### A DDONUAPLUS, CUU #### [facility] [address] [place] [address] US abdomen limitedon 025 US abdomen limited [facility] [address] [place] [address] Ultrasound Report Signed Patient: Nancy Hooper MR#: [id number] 68 : 1960 Acct:[id number] Age/Sex: 64 / F ADM Date: 11/23/24 Loc: Room: Type: [facility] Attending Dr: Cecilio Dumont MD Ordering [...] Degroot M.D. 11/23/2024 5:13 PM Dictation Location: [place] [address] Tech: Ramila Su Transcribed By: ADAM 11/23/241712 Dictated By: Shai Degroot II, MD 11/23/241711 Signed By: 11/23/241712 Normal [facility] Alanine aminotransferase [En zymatic activity/volume] in Serum or PlasmaOrdered By: Cecilio Dumont on 11-21-2024 ALT [Catalytic activity/Vol] 15 U/L Normal 7-52 [facility] Comment on above: Performed By: #### A MY, CMP, CBC, LIPASE ####[facility] [address] [place] [address] [place] Albumin [Mass/volume] in Ser um or Plasma by Bromocresol green (BCG) dye binding methoOrdered By: Cecilio Dumont on 11-21-2024 Albumin BCG dye [Mass/Vol] 4.1 g/dL 3.5-5.7 [facility] Alkaline phosphatase [Enzyma tic activity/volume] in Serum or PlasmaOrdered By: Cecilio Dumont on 11-21-2024 ALP [Catalytic activity/Vol] 57 U/L Normal 34-104 [facility] Comment on above: Performed By: #### A MY, CMP, CBC, LIPASE ####[facility] [place] [address] [place] Amylase [Enzymatic activity/ volume] in Serum or PlasmaOrdered By: Cecilio Dumont on 11-21-2024 Amylase [Catalytic activity/Vol] 34 U/L Normal 29-103 [facility] Comment on above: Performed By: #### A MY, CMP, CBC, LIPASE ####[facility] [address] [place] [address] [place] Aspartate aminotransferase [ Enzymatic activity/volume] in Serum or PlasmaOrdered By: Cecilio Dumont on 11-21-2024 AST [Catalytic activity/Vol] 12 U/L Low 13-39 [facility] Comment on above: Performed By: #### A MY, CMP, CBC, LIPASE ####[address] Basophils [#/volume] in Bloo d by Automated countOrdered By: Cecilio Dumont on 11-21-2024 Basophils (Bld) [#/Vol] 0.1 10*3/uL Normal 0.0-0.2 [facility] Comment on above: Result Comment: PERF ORMED BY: [facility] [address] [place] [id number] PATHOLOGIST [employer]OD[employer] MACHINE HELPER BASSAM BRADFORD M.D. Performed By: #### A MY, CMP, CBC, LIPASE ####[address] Basophils/100 leukocytes in Blood by Automated countOrdered By: Cecilio Dumont on 11-21-2024 Basophils/100 WBC (Bld) 1.0 % Normal . [facility] Comment on above: Performed By: #### A MY, CMP, CBC, LIPASE ####[address] Bilirubin.total [Mass/volume ] in Serum or PlasmaOrdered By: Cecilio Dumont on 11-21-2024 Bilirubin [Mass/Vol] 0.3 mg/dL Normal 0.3-1.0 [facility] Comment on above: Performed By: #### A MY, CMP, CBC, LIPASE ####[place] [id number] [facility] Calcium [Mass/volume] in Ser um or PlasmaOrdered By: Cecilio Dumont on 11-21-2024 Calcium [Mass/Vol] 9.2 mg/dL Normal 8.6-10.3 [facility] Comment on above: Performed By: #### A MY, CMP, CBC, LIPASE ####[address] Carbon dioxide, total [Moles /volume] in Serum or PlasmaOrdered By: Cecilio Cheikh on 11-21-2024 CO2 [Moles/Vol] 29.6 mmol/L Normal 21.0-31.0 [facility] Comment on above: Performed By: #### A MY, CMP, CBC, LIPASE ####[address] Chloride [Moles/volume] in S genaro or PlasmaOrdered By: Cecilio Dumont on 11-21-2024 Chloride [Moles/Vol] 107 mmol/L Normal 98-107 [facility] Comment on above: Performed By: #### A MY, CMP, CBC, LIPASE ####[address] Complete Blood Count Auto Di ffon 11-21-2024 Mean Corpuscular HGB Conc 33.4 g/dL Normal 32.0-35.0 [facility] Comment on above: Performed By: #### A MY, CMP, CBC, LIPASE ####[address] NRBC% 0.1 /100{WBC} Normal 0-0.5 [facility] Comment on above: Performed By: #### A MY, CMP, CBC, LIPASE ####[address] White Blood Count 7.7 [CFU]/mL Normal 3.8-11.6 [facility] Comment on above: Performed By: #### A MY, CMP, CBC, LIPASE ####[place] [id number] [facility] Comprehensive Metabolic Pane eliezer 11-21-2024 Albumin [Mass/Vol] 4.1 g/dL Normal 3.5-5.7 [facility] Comment on above: Performed By: #### A MY, CMP, CBC, LIPASE ####[place] [id number] [facility] GFR/1.73 sq M.predicted MDRD (S/P/Bld) [Vol rate/Area] mL/min/{1.73_m2} Normal [facility] Comment on above: Performed By: #### A MY, CMP, CBC, LIPASE ####[address] Creatinine [Mass/volume] in Serum or PlasmaOrdered By: Cecilio Dumont on 11-21-2024 Creatinine [Mass/Vol] 0.58 mg/dL Low 0.60-1.20 [facility] Comment on above: Performed By: #### A MY, CMP, CBC, LIPASE ####[address] Eosinophils [#/volume] in Bl ood by Automated countOrdered By: Cecilio Dumont on 11-21-2024 Eosinophils (Bld) [#/Vol] 0.1 10*3/uL Normal 0.0-0.45 [facility] Comment on above: Performed By: #### A MY, CMP, CBC, LIPASE ####[address] Eosinophils/100 leukocytes i n Blood by Automated countOrdered By: Cecilio Dumont on 11-21-2024 Eosinophils/100 WBC (Bld) 1.2 % Normal . [facility] Comment on above: Performed By: #### A MY, CMP, CBC, LIPASE ####[address] Erythrocyte distribution wid th [Ratio] by Automated countOrdered By: eCcilio Dumont on 11-21-2024 Erythrocyte distribution width (RBC) [Ratio] 13.5 % Normal 11.9-15.3 [facility] Comment on above: Performed By: #### A MY, CMP, CBC, LIPASE ####[address] Erythrocytes [#/volume] in B lood by Automated countOrdered By: Cecilio Dumont on 11-21-2024 RBC (Bld) [#/Vol] 4.72 10*6/uL Normal 3.60-5.00 [facility] Comment on above: Performed By: #### A MY, CMP, CBC, LIPASE ####[place] [id number] [facility] Glucose [Mass/volume] in Ser um or PlasmaOrdered By: Cecilio Dumont on 11-21-2024 Glucose [Mass/Vol] 118 mg/dL High 70-100 [facility] Comment on above: ADA recommended refe rence rangeRandom Glucose Reference Range is dependent on time and content of last meal. Glucose of more than 200 mg/dL in a nonstressed, ambulatory subject supports the diagnosis of Diabetes Mellitus. Result Comment: [place] Glucose Reference Range is dependent on time and content of last meal. Glucose of more than 200 mg/dL in a nonstressed, ambulatory subject supports the diagnosis of Diabetes Mellitus. ADA recommended reference range Performed By: #### A MY, CMP, CBC, LIPASE ####[address] Hematocrit [Volume Fraction] of Blood by Automated countOrdered By: Cecilio Dumont on 11-21-2024 Hematocrit (Bld) [Volume fraction] 42.8 % Normal 34.0-46.4 [facility] Comment on above: Performed By: #### A MY, CMP, CBC, LIPASE ####[address] Hemoglobin [Mass/volume] in BloodOrdered By: Cecilio Dumont on 11-21-2024 Hemoglobin (Bld) [Mass/Vol] 14.3 g/dL Normal 11.8-15.4 [facility] Comment on above: Performed By: #### A MY, CMP, CBC, LIPASE ####[place] [id number] [facility] Leukocytes [#/volume] correc rani for nucleated erythrocytes in Blood by Automated counOrdered By: Cecilio Dumont on 11-21-2024 WBC corrected for nucl RBC Auto (Bld) [#/Vol] 7.7 10*3/uL 3.8-11.6 [facility] Leukocytes [#/volume] in Blo od by Automated countOrdered By: Ceciloi Dumont on 11-21-2024 WBC (Bld) [#/Vol] 7.7 10*3/uL Normal 3.8-11.6 [facility] Comment on above: Performed By: #### A MY, CMP, CBC, LIPASE ####[address] Lipase [Enzymatic activity/v olume] in Serum or PlasmaOrdered By: Cecilio Dumont on 11-21-2024 Lipase [Catalytic activity/Vol] 43.0 U/L Normal 11.0-82.0 [facility] Comment on above: Result Comment: PERF ORMED BY: [facility] [address] [place] [address] PATHOLOGIST [employer]OD[employer] MACHINE HELPER BASSAM BRADFORD M.D. Performed By: #### A MY, CMP, CBC, LIPASE ####[address] Lymphocytes [#/volume] in Bl ood by Automated countOrdered By: Cecilio Dumont on 11-21-2024 Lymphocytes (Bld) [#/Vol] 2.1 10*3/uL Normal 1.00-4.8 [facility] Comment on above: Performed By: #### A MY, CMP, CBC, LIPASE ####[address] Lymphocytes/100 leukocytes i n Blood by Automated countOrdered By: Cecilio Dumont on 11-21-2024 Lymphocytes/100 WBC (Bld) 27.0 % Normal . [facility] Comment on above: Performed By: #### A MY, CMP, CBC, LIPASE ####[address] MCH [Entitic mass] by Automa rani countOrdered By: Cecilio Dumont on 11-21-2024 MCH (RBC) [Entitic mass] 30.2 pg Normal 24.7-34.3 [facility] Comment on above: Performed By: #### A MY, CMP, CBC, LIPASE ####[address] MCHC Auto (RBC) [Mass/Vol]Or dered By: Cecilio Dumont on 11-21-2024 MCHC (RBC) [Mass/Vol] 33.4 g/dL 32.0-35.0 [facility] MCV [Entitic volume] by Auto mated countOrdered By: Cecilio Reedangelito on 11-21-2024 MCV (RBC) [Entitic vol] 90.7 fL Normal 80-100 [facility] Comment on above: Performed By: #### A MY, CMP, CBC, LIPASE ####[address] Monocytes [#/volume] in Bloo d by Automated countOrdered By: Cecilio Dumont on 11-21-2024 Monocytes (Bld) [#/Vol] 0.7 10*3/uL Normal 0.0-0.8 [facility] Comment on above: Performed By: #### A MY, CMP, CBC, LIPASE ####[address] Monocytes/100 leukocytes in Blood by Automated countOrdered By: Cecilio Dumont on 11-21-2024 Monocytes/100 WBC (Bld) 9.0 % Normal . [facility] Comment on above: Performed By: #### A MY, CMP, CBC, LIPASE ####[address] Neutrophils [#/volume] in Bl ood by Automated countOrdered By: Cecilio Dumont on 11-21-2024 Neutrophils (Bld) [#/Vol] 4.8 10*3/uL Normal 1.8-7.7 [facility] Comment on above: Performed By: #### A MY, CMP, CBC, LIPASE ####[address] Neutrophils/100 leukocytes i n Blood by Automated countOrdered By: Cecilio Dumont on 11-21-2024 Neutrophils/100 WBC (Bld) 61.8 % Normal . [facility] Comment on above: Performed By: #### A MY, CMP, CBC, LIPASE ####[address] No Panel InformationOrdered By: Cecilio Dumont on 11-21-2024 Estimated GFR (CKD-EPI) > 60.0 mL/Min [facility] Creatinine Clearance (Chem N/A [facility] Nucleated erythrocytes [Pres ence] in Blood by Automated countOrdered By: Cecilio Dumont on 11-21-2024 Nucleated RBC Auto Ql (Bld) 0.1 /100{WBC} 0-0.5 [facility] Platelet mean volume [Entiti c volume] in Blood by Automated countOrdered By: Cecilio Dumont on 11-21-2024 Platelet mean volume (Bld) [Entitic vol] 7.1 fL Normal 6.3-10.7 [facility] Comment on above: Performed By: #### A MY, CMP, CBC, LIPASE ####[place] [id number] [address] Platelets [#/volume] in Bloo d by Automated countOrdered By: Cecilio Dumont on 11-21-2024 Platelets (Bld) [#/Vol] 334 10*3/uL Normal 150-450 [facility] Comment on above: Performed By: #### A MY, CMP, CBC, LIPASE ####[address] Potassium [Moles/volume] in Serum or PlasmaOrdered By: Cecilio Dumont on 11-21-2024 Potassium [Moles/Vol] 4.2 mmol/L Normal 3.5-5.1 [facility] Comment on above: Performed By: #### A MY, CMP, CBC, LIPASE ####[address] Protein [Mass/volume] in Ser um or PlasmaOrdered By: Cecilio Dumont on 11-21-2024 Protein [Mass/Vol] 7.0 g/dL Normal 6.4-8.9 [facility] Comment on above: Performed By: #### A MY, CMP, CBC, LIPASE ####[place] [id number] [facility] Serum globulin measurement b y calculation (mass/volume)Ordered By: Cecilio Dumont on 11-21-2024 Globulin (S) [Mass/Vol] 2.9 g/dL [facility] Comment on above: Performed By: #### A MY, CMP, CBC, LIPASE ####[address] Serum or plasma albumin/glob ulin mass ratioOrdered By: Cecilio Dumont on 11-21-2024 Albumin/Globulin [Mass ratio] 1.4 {ratio} [facility] Comment on above: Performed By: #### A MY, CMP, CBC, LIPASE ####[address] Serum or plasma anion gap de terminationOrdered By: Cecilio Dumont on 11-21-2024 Anion gap [Moles/Vol] 10.6 mmol/L Normal 6.0-15.0 [facility] Comment on above: Performed By: #### A MY, CMP, CBC, LIPASE ####[address] Sodium [Moles/volume] in Ser um or PlasmaOrdered By: Cecilio Dumont on 11-21-2024 Sodium [Moles/Vol] 143 mmol/L Normal 136-145 [facility] Comment on above: Performed By: #### A MY, CMP, CBC, LIPASE ####[address] Urea nitrogen [Mass/volume] in Serum or PlasmaOrdered By: Cecilio Dumont on 11-21-2024 Urea nitrogen [Mass/Vol] 25 mg/dL Normal 7-25 [facility] Comment on above: Performed By: #### A MY, CMP, CBC, LIPASE ####[address] foot LT wo conon 10-17-19 CT foot LT wo con [facility] [address] [place] [address] CT Scan Report Signed Patient: Nancy Hooper MR#: [id number] 68 : 1960 Acct:[id number] Age/Sex: 64 / F ADM Date: 10/16/24 Loc: CT Room: Type: [facility] Attending Dr: Cecilio Dumont MD Copies to: Cecilio Dumont MD Ordering Provider: Cecilio Dumont MD Date of Service: 10/16/24 CT/CT foot LT wo con: M79.672 ([id number]) CT/CT ankle LT wo con: M79.672 CT [...] Degroot M.D. 10/16/2024 4:27 PM Dictation Location: [place] [address] Transcribed By: ADAM 10/16/24 1627 Dictated By: Shai Degroot II, MD 10/16/24 1601 Signed By: 10/16/24 1627 Normal [facility] XR foot LT 2Von 09-27-2024 XR foot LT 2V [facility] [place] [id number] XRay Report Signed Patient: Nancy Hooper MR#: [id number] 68 : 1960 Acct:[id number] Age/Sex: 64 / F ADM Date: 09/27/24 Loc: XD Room: Type: [facility] Attending Dr: Cecilio Dumont MD Copies [...] Sanchez M.D. 09/27/2024 4:09 PM Dictation Location: [place] [address] Transcribed By: [facility] 09/27/24 1609 Dictated By: Juwan Sanchez DO 09/27/24 1608 Signed By: 09/27/24 1609 Normal [facility] Basophils Auto (Bld) [#/Vol] Ordered By: Renny Walton on 11-13-2023 Basophils (Bld) [#/Vol] 0.1 10*3/uL 0.0-0.2 [facility] Basophils/100 WBC Auto (Bld) Ordered By: Renny Walton on 11-13-2023 Basophils/100 WBC (Bld) 1.1 % . [facility] Calcium [Mass/volume] in Ser um or PlasmaOrdered By: Renny Walton on 11-13-2023 Calcium [Mass/Vol] 9.1 mg/dL 8.6-10.3 [facility] Carbon dioxide, total [Moles /volume] in Serum or PlasmaOrdered By: Renny Walton on 11-13-2023 CO2 [Moles/Vol] 28.1 mmol/L 21.0-31.0 [facility] Chloride [Moles/volume] in S genaro or PlasmaOrdered By: Renny Walton on 11-13-2023 Chloride [Moles/Vol] 107 mmol/L 98-107 [facility] Cholesterol [Mass/volume] in Serum or PlasmaOrdered By: Renny Walton on 11-13-2023 Cholesterol [Mass/Vol] 174 mg/dL 140-200 [facility] Comment on above: Chol less than 200 m g/dl low riskChol 201-239 mg/dl borderline riskChol 240 mg/dl and greater high risk Cholesterol in LDL Calc [Mas s/Vol]Ordered By: Renny Walton on 11-13-2023 Cholesterol in LDL [Mass/Vol] 98 mg/dL 0-100 [facility] Comment on above: LDL ATP III CLASSIFI CATIONLDL less than 100 mg/dL OptimalLDL 100-129 mg/dL Near or above optimalLDL 130-159 mg/dL Borderline highLDL 160-189 mg/dL HighLDL greater than 189 mg/dL Very high Cholesterol in VLDL Calc [Ma ss/Vol]Ordered By: Renny Walton on 11-13-2023 Cholesterol in VLDL [Mass/Vol] 24 mg/dL [facility] Creatinine [Mass/volume] in Serum or PlasmaOrdered By: Renny Walton on 11-13-2023 Creatinine [Mass/Vol] 0.62 mg/dL 0.60-1.20 [facility] Eosinophils Auto (Bld) [#/Vo l]Ordered By: Renny Walton on 11-13-2023 Eosinophils (Bld) [#/Vol] 0.1 10*3/uL 0.0-0.45 [facility] Eosinophils/100 WBC Auto (Bl d)Ordered By: Renny Walton on 11-13-2023 Eosinophils/100 WBC (Bld) 2.3 % . [facility] Erythrocyte distribution wid th Auto (RBC) [Ratio]Ordered By: Renny Walton on 11-13-2023 Erythrocyte distribution width (RBC) [Ratio] 13.6 % 11.9-15.3 [facility] Glucose [Mass/volume] in Ser um or PlasmaOrdered By: Renny Walton on 11-13-2023 Glucose [Mass/Vol] 103 mg/dL High 70-100 [facility] Comment on above: ADA recommended refe rence range Glucose mean value [Mass/vol ume] in Blood Estimated from glycated hemoglobinOrdered By: Renny Walton on 11-13-2023 Average glucose Estimated from glycated hemoglobin (Bld) [Mass/Vol] 111 mg/dL [facility] Hematocrit Auto (Bld) [Volum e fraction]Ordered By: Renny Walton on 11-13-2023 Hematocrit (Bld) [Volume fraction] 42.1 % 34.0-46.4 [facility] Hemoglobin [Mass/volume] in BloodOrdered By: Renny Walton on 11-13-2023 Hemoglobin (Bld) [Mass/Vol] 13.9 g/dL 11.8-15.4 [facility] - Hematology and Cell countsOrdered By: Renny Walton on 11-13-2023 HbA1c (Bld) [Mass fraction] 5.5 % 4.3-5.6 [facility] Comment on above: Increased risk for d iabetes: 5.7 - 6.4diabetes: >6.4glycemic control for adults with diabetes: <7.0 Leukocytes [#/volume] correc rani for nucleated erythrocytes in Blood by Automated counOrdered By: Renny Walton on 11-13-2023 WBC corrected for nucl RBC Auto (Bld) [#/Vol] 5.8 10*3/uL 3.8-11.6 [facility] Lymphocytes Auto (Bld) [#/Vo l]Ordered By: Renny Walton on 11-13-2023 Lymphocytes (Bld) [#/Vol] 2.0 10*3/uL 1.00-4.8 [facility] Lymphocytes/100 WBC Auto (Bl d)Ordered By: Renny Walton on 11-13-2023 Lymphocytes/100 WBC (Bld) 34.5 % . [facility] MCH Auto (RBC) [Entitic mass ]Ordered By: Renny Wlaton on 11-13-2023 MCH (RBC) [Entitic mass] 29.7 pg 24.7-34.3 [facility] MCHC Auto (RBC) [Mass/Vol]Or dered By: Renny Walton on 11-13-2023 MCHC (RBC) [Mass/Vol] 32.9 g/dL 32.0-35.0 [facility] MCV Auto (RBC) [Entitic vol] Ordered By: Renny Walton on 11-13-2023 MCV (RBC) [Entitic vol] 90.2 fL 80-100 [facility] Monocytes Auto (Bld) [#/Vol] Ordered By: Renny Walton on 11-13-2023 Monocytes (Bld) [#/Vol] 0.5 10*3/uL 0.0-0.8 [facility] Monocytes/100 WBC Auto (Bld) Ordered By: Renny Walton on 11-13-2023 Monocytes/100 WBC (Bld) 8.0 % . [facility] Neutrophils Auto (Bld) [#/Vo l]Ordered By: Renny Walton on 11-13-2023 Neutrophils (Bld) [#/Vol] 3.1 10*3/uL 1.8-7.7 [facility] Neutrophils/100 WBC Auto (Bl d)Ordered By: Renny Walton on 11-13-2023 Neutrophils/100 WBC (Bld) 54.1 % . [facility] No Panel InformationOrdered By: Renny Walton on 11-13-2023 Estimated GFR (CKD-EPI) > 60.0 mL/Min [facility] Creatinine Clearance (Chem N/A [facility] Nucleated erythrocytes [Pres ence] in Blood by Automated countOrdered By: Renny Walton on 11-13-2023 Nucleated RBC Auto Ql (Bld) 0.1 /100{WBC} 0-0.5 [facility] Platelet mean volume Auto (B ld) [Entitic vol]Ordered By: Renny Walton on 11-13-2023 Platelet mean volume (Bld) [Entitic vol] 7.0 fL 6.3-10.7 [facility] Platelets Auto (Bld) [#/Vol] Ordered By: Renny Walton on 11-13-2023 Platelets (Bld) [#/Vol] 276 10*3/uL 150-450 [facility] Potassium [Moles/volume] in Serum or PlasmaOrdered By: Renny Walton on 11-13-2023 Potassium [Moles/Vol] 4.1 mmol/L 3.5-5.1 [facility] RBC Auto (Bld) [#/Vol]Ordere d By: Renny Walton on 11-13-2023 RBC (Bld) [#/Vol] 4.67 10*6/uL 3.60-5.00 [facility] Serum or plasma anion gap de terminationOrdered By: Renny Walton on 11-13-2023 Anion gap [Moles/Vol] 10.0 mmol/L 6.0-15.0 [facility] Serum or plasma high density lipoprotein (HDL) cholesterol measurementOrdered By: Renny Walton on 11-13-2023 Cholesterol in HDL [Mass/Vol] 51 mg/dL 23-92 [facility] Comment on above: HDL CHOL ATP-III CLA SSIFICATION Cardiovascular RiskHDL > or equal to 60 mg/dL LOWHDL < 40 mg/dL HIGH Serum or plasma total choles terol/high density lipoprotein (HDL) cholesterol mass ratOrdered By: Renny Walton on 11-13-2023 Cholesterol.total/Chol esterol in HDL [Mass ratio] 3.4 {ratio} <5.0 [facility] Sodium [Moles/volume] in Ser um or PlasmaOrdered By: Renny Walton on 11-13-2023 Sodium [Moles/Vol] 141 mmol/L 136-145 [facility] Thyrotropin [Units/volume] i n Serum or PlasmaOrdered By: Renny Walton on 11-13-2023 TSH Qn 1.75 m[IU]/L 0.45-5.33 [facility] Triglyceride [Mass/volume] i n Serum or PlasmaOrdered By: Renny Walton on 11-13-2023 Triglyceride [Mass/Vol] 123 mg/dL 0-149 [facility] Comment on above: TRIG ATP III CLASSIF ICATIONTRIG less than 150 mg/dL NormalTRIG 150-199 mg/dL Borderline highTRIG 200-500 mg/dL High TRIG greater than 500 mg/dL Very highStandard traceable to the Center for Disease Conrtrol and Prevention (CDC) test method. Urea nitrogen [Mass/volume] in Serum or PlasmaOrdered By: Renny Walton on 11-13-2023 Urea nitrogen [Mass/Vol] 24 mg/dL 12-06 [facility] WBC Auto (Bld) [#/Vol]Ordere d By: Renny Walton on 11-13-2023 WBC (Bld) [#/Vol] 5.8 10*3/uL 3.8-11.6 [facility] A1C HEMOGLOBINon 05-31-2023 HbA1c (Bld) [Mass fraction] 5.6 % [employer] Other HbA1c (Bld) [Mass fraction]o n 05-31-[address] [employer] Other CT ANGIO CORONARY ART WITH H [...] STRUCTURES ARE THE SOLE RESPONSIBILITY OF THE SPECIALIST FIELD ENGINEER SUBMITTING THE ORIGINAL REPORT (NOT THIS ADDENDUM) Signed by: Shai Tolentino 03/14/2023 1:47 PM -------- ORIGINAL REPORT -------- Dictation workstation: [id number] Interpreted By: Anthony Yo, STUDY: CT ANGIO CORONARY ART WITH HEARTFLOW IF SCORE >30%; 03/14/2023 12:00 pm INDICATION: Signs/Symptoms:r07.9. COMPARISON: None. ACCESSION NUMBER(S): [id number] ORDERING CLINICIAN: KAJAL MCCAULEY TECHNIQUE: Using multi-detector [...] artery dise (more content not included)... Normal [facility] Comment on above: Order Comment: Order [...] STRUCTURES ARE THE SOLE RESPONSIBILITY OF THE SPECIALIST FIELD ENGINEER SUBMITTING THE ORIGINAL REPORT (NOT THIS ADDENDUM) Signed by: Shai Tolentino 02/17/2023 2:28 PM -------- ORIGINAL REPORT -------- Dictation workstation: [id number] Interpreted By: Anthony Yo, STUDY: CT CARDIAC SCORING WO IV CONTRAST; 02/14/2023 9:00 am INDICATION: Signs/Symptoms:chest pain. COMPARISON: None. ACCESSION NUMBER(S): [id number] ORDERING CLINICIAN: ANNELIESE GARCIA TECHNIQUE: Using prospective [...] coronary heart disease events. According to the [place] [employer] Clinical Expert Consensus [...] modify other non-lipid coronary risk factors. Reference: Willard P et al. Circulation. 2007; 115:402-426 [employer] Helper: Dr. Anthony Yo, Date: 02/14/2023 10:23 am Signed by: Anthony Yo 02/14/2023 10:23 AM Dictation workstation: [id number] [facility] Calcium [Mass/volume] in Ser um or PlasmaOrdered By: Nabil Baker on 01-04-2023 Calcium [Mass/Vol] 9.1 mg/dL 8.6-10.3 [facility] Carbon dioxide, total [Moles /volume] in Serum or PlasmaOrdered By: Nabil Baker on 01-04-2023 CO2 [Moles/Vol] 25.7 mmol/L 21.0-31.0 [facility] Chloride [Moles/volume] in S genaro or PlasmaOrdered By: Nabil Baker on 01-04-2023 Chloride [Moles/Vol] 108 mmol/L 98-107 [facility] Cholesterol [Mass/volume] in Serum or PlasmaOrdered By: Nabil Baker on 01-04-2023 Cholesterol [Mass/Vol] 122 mg/dL 140-200 [facility] Comment on above: Chol less than 200 m g/dl low riskChol 201-239 mg/dl borderline riskChol 240 mg/dl and greater high risk Cholesterol in LDL Calc [Mas s/Vol]Ordered By: Nabil Baker on 01-04-2023 Cholesterol in LDL [Mass/Vol] 67 mg/dL 0-100 [facility] Comment on above: LDL ATP III CLASSIFI CATIONLDL less than 100 mg/dL OptimalLDL 100-129 mg/dL Near or above optimalLDL 130-159 mg/dL Borderline highLDL 160-189 mg/dL HighLDL greater than 189 mg/dL Very high Cholesterol in VLDL Calc [Ma ss/Vol]Ordered By: Nabil Baker on 01-04-2023 Cholesterol in VLDL [Mass/Vol] 15 mg/dL [facility] Creatinine [Mass/volume] in Serum or PlasmaOrdered By: Nabil Baker on 01-04-2023 Creatinine [Mass/Vol] 0.83 mg/dL 0.60-1.20 [facility] Glucose [Mass/volume] in Ser um or PlasmaOrdered By: Nabil Baker on 01-04-2023 Glucose [Mass/Vol] 101 mg/dL 70-100 [facility] Comment on above: ADA recommended refe rence rangeRandom Glucose Reference Range is dependent on time and content of last meal. Glucose of more than 200 mg/dL in a nonstressed, ambulatory subject supports the diagnosis of Diabetes Mellitus. Magnesium [Mass/volume] in S genaro or PlasmaOrdered By: Nabil Baker on 01-04-2023 Magnesium [Mass/Vol] 2.2 mg/dL 1.9-2.7 [facility] No Panel InformationOrdered By: Nabil Baker on 01-04-2023 Estimated GFR (CKD-EPI) > 60.0 mL/Min [facility] Creatinine Clearance (Chem 87.71 [facility] Potassium [Moles/volume] in Serum or PlasmaOrdered By: Nabil Baker on 01-04-2023 Potassium [Moles/Vol] 3.6 mmol/L 3.5-5.1 [facility] Serum or plasma anion gap de terminationOrdered By: Nabil Baker on 01-04-2023 Anion gap [Moles/Vol] 10.9 mmol/L 6.0-15.0 [facility] Serum or plasma high density lipoprotein (HDL) cholesterol measurementOrdered By: Nabil Baker on 01-04-2023 Cholesterol in HDL [Mass/Vol] 39 mg/dL [facility] Comment on above: HDL CHOL ATP-III CLA SSIFICATION Cardiovascular RiskHDL > or equal to 60 mg/dL LOWHDL < 40 mg/dL HIGH Serum or plasma total choles terol/high density lipoprotein (HDL) cholesterol mass ratOrdered By: Nabil Baker on 01-04-2023 Cholesterol.total/Chol esterol in HDL [Mass ratio] 3.1 {ratio} <5.0 [facility] Sodium [Moles/volume] in Ser um or PlasmaOrdered By: Nabil Baker on 01-04-2023 Sodium [Moles/Vol] 141 mmol/L 136-145 [facility] Triglyceride [Mass/volume] i n Serum or PlasmaOrdered By: Nabil Baker on 01-04-2023 Triglyceride [Mass/Vol] 78 mg/dL 0-149 [facility] Comment on above: TRIG ATP III CLASSIF [...] <= 0.01 ng/mL [Mass/Vol] 8.5 pg/mL 0.0-15.0 [facility] Urea nitrogen [Mass/volume] in Serum or PlasmaOrdered By: Nabil Baker on 01-04-2023 Urea nitrogen [Mass/Vol] 25 mg/dL 12-06 [facility] Activated partial thrombopla stin time (aPTT) in platelet poor plasma by coagulation aOrdered By: Erika Escobedo on 01-03-2023 aPTT Coag (PPP) [Time] 20.6 s 25.1-36.5 [facility] Alanine aminotransferase [En zymatic activity/volume] in Serum or PlasmaOrdered By: Erika Escobedo on 01-03-2023 ALT [Catalytic activity/Vol] 25 U/L [facility] Albumin [Mass/volume] in Ser um or Plasma by Bromocresol green (BCG) dye binding methoOrdered By: Erika Escobedo on 01-03-2023 Albumin BCG dye [Mass/Vol] 4.1 g/dL 3.5-5.7 [facility] Alkaline phosphatase [Enzyma tic activity/volume] in Serum or PlasmaOrdered By: Erika Escobedo on 01-03-2023 ALP [Catalytic activity/Vol] 55 U/L 34-104 [facility] Aspartate aminotransferase [ Enzymatic activity/volume] in Serum or PlasmaOrdered By: Erika Escobedo on 01-03-2023 AST [Catalytic activity/Vol] 20 U/L 13-39 [facility] Basophils Auto (Bld) [#/Vol] Ordered By: Erika Escobedo on 01-03-2023 Basophils (Bld) [#/Vol] 0.1 10*3/uL 0.0-0.2 [facility] Basophils/100 WBC Auto (Bld) Ordered By: Erika Escobedo on 01-03-2023 Basophils/100 WBC (Bld) 1.0 % . [facility] Bilirubin Test strip Ql (U)O rdered By: Erika Escobedo on 01-03-2023 Bilirubin Ql (U) Negative Negative [facility] Bilirubin.total [Mass/volume ] in Serum or PlasmaOrdered By: Erika Escobedo on 01-03-2023 Bilirubin [Mass/Vol] 0.4 mg/dL 0.3-1.0 [facility] Calcium [Mass/volume] in Ser um or PlasmaOrdered By: Erika Escobedo on 01-03-2023 Calcium [Mass/Vol] 9.3 mg/dL 8.6-10.3 [facility] Carbon dioxide, total [Moles /volume] in Serum or PlasmaOrdered By: Erika Escobedo on 01-03-2023 CO2 [Moles/Vol] 24.5 mmol/L 21.0-31.0 [facility] Chloride [Moles/volume] in S genaro or PlasmaOrdered By: Erika Escobedo on 01-03-2023 Chloride [Moles/Vol] 106 mmol/L 98-107 [facility] Color Auto (U)Ordered By: Cari Escobedo on 01-03-2023 Color (U) Yellow Yellow [facility] Creatine kinase [Enzymatic a ctivity/volume] in Serum or PlasmaOrdered By: Erika Escobedo on 01-03-2023 CK [Catalytic activity/Vol] 31 U/L 30-223 [facility] Creatinine [Mass/volume] in Serum or PlasmaOrdered By: Erika Escobedo on 01-03-2023 Creatinine [Mass/Vol] 0.82 mg/dL 0.60-1.20 [facility] Eosinophils Auto (Bld) [#/Vo l]Ordered By: Erika Escobedo on 01-03-2023 Eosinophils (Bld) [#/Vol] 0.1 10*3/uL 0.0-0.45 [facility] Eosinophils/100 WBC Auto (Bl d)Ordered By: Erika Escobedo on 01-03-2023 Eosinophils/100 WBC (Bld) 0.7 % . [facility] Erythrocyte distribution wid th Auto (RBC) [Ratio]Ordered By: Erika Escobedo on 01-03-2023 Erythrocyte distribution width (RBC) [Ratio] 12.8 % 11.9-15.3 [facility] Globulin Calc (S) [Mass/Vol] Ordered By: Erika Escobedo on 01-03-2023 Globulin (S) [Mass/Vol] 3.3 g/dL [facility] Glucose [Mass/volume] in Ser um or PlasmaOrdered By: Erika Escobedo on 01-03-2023 Glucose [Mass/Vol] 107 mg/dL 70-100 [facility] Comment on above: ADA recommended refe rence rangeRandom Glucose Reference Range is dependent on time and content of last meal. Glucose of more than 200 mg/dL in a nonstressed, ambulatory subject supports the diagnosis of Diabetes Mellitus. Hematocrit Auto (Bld) [Volum e fraction]Ordered By: Erika Escobedo on 01-03-2023 Hematocrit (Bld) [Volume fraction] 43.7 % 34.0-46.4 [facility] Hemoglobin [Mass/volume] in BloodOrdered By: Erika Escobedo on 01-03-2023 Hemoglobin (Bld) [Mass/Vol] 14.7 g/dL 11.8-15.4 [facility] INR in Platelet poor plasma by Coagulation assayOrdered By: Erika Escobedo on 01-03-2023 INR Coag (PPP) [Relative time] 1.1 {INR} [facility] Comment on above: INR Therapeutic Rang e [...] on 01-03-2023 Ketones (U) [Mass/Vol] Negative Negative [facility] Laboratory - CoagulationOrde red By: Erika Escobedo on 01-03-2023 PT Coag (PPP) [Time] 12.7 s 9.0-12.9 [facility] Leukocytes [#/volume] correc rani for nucleated erythrocytes in Blood by Automated counOrdered By: Erika Escobedo on 01-03-2023 WBC corrected for nucl RBC Auto (Bld) [#/Vol] 8.2 10*3/uL 3.8-11.6 [facility] Lymphocytes Auto (Bld) [#/Vo l]Ordered By: Erika Escobedo on 01-03-2023 Lymphocytes (Bld) [#/Vol] 1.2 10*3/uL 1.00-4.8 [facility] Lymphocytes/100 WBC Auto (Bl d)Ordered By: Erika Escobedo on 01-03-2023 Lymphocytes/100 WBC (Bld) 15.0 % . [facility] MCH Auto (RBC) [Entitic mass ]Ordered By: Erika Escobedo on 01-03-2023 MCH (RBC) [Entitic mass] 30.3 pg 24.7-34.3 [facility] MCHC Auto (RBC) [Mass/Vol]Or dered By: Erika Escobedo on 01-03-2023 MCHC (RBC) [Mass/Vol] 33.6 g/dL 32.0-35.0 [facility] MCV Auto (RBC) [Entitic vol] Ordered By: Erika Escobedo on 01-03-2023 MCV (RBC) [Entitic vol] 90.2 fL 80-100 [facility] Monocyte distribution width [Entitic volume] in Blood by AutomatedOrdered By: Erika Escobedo on 01-03-2023 Monocyte distribution width Auto (Bld) [Entitic vol] 22.07 % 0.00-20.00 [facility] Comment on above: For adults in ED, MD W > 20.0 may be associated with a higher risk of sepsis during the first 12 hrs of hospital admission Monocytes Auto (Bld) [#/Vol] Ordered By: Erika Escobedo on 01-03-2023 Monocytes (Bld) [#/Vol] 0.7 10*3/uL 0.0-0.8 [facility] Monocytes/100 WBC Auto (Bld) Ordered By: Erika Escobedo on 01-03-2023 Monocytes/100 WBC (Bld) 8.4 % . [facility] Natriuretic peptide B [Mass/ Vol]Ordered By: Erika Escobedo on 01-03-2023 Natriuretic peptide B (Bld) [Mass/Vol] 19.0 pg/mL 5-100 [facility] Neutrophils Auto (Bld) [#/Vo l]Ordered By: Erika Escobedo on 01-03-2023 Neutrophils (Bld) [#/Vol] 6.2 10*3/uL 1.8-7.7 [facility] Neutrophils/100 WBC Auto (Bl d)Ordered By: Erika Escobdeo on 01-03-2023 Neutrophils/100 WBC (Bld) 74.9 % . [facility] Nitrite Test strip Ql (U)Ord ered By: Erika Escobedo on 01-03-2023 Nitrite Ql (U) Negative Negative [facility] No Panel InformationOrdered By: Erika Escobedo on 01-03-2023 Estimated GFR (CKD-EPI) > 60.0 mL/Min [facility] Creatinine Clearance (Chem 89.05 [facility] Nucleated erythrocytes [Pres ence] in Blood by Automated countOrdered By: Erika Escobedo on 01-03-2023 Nucleated RBC Auto Ql (Bld) 0.1 /100{WBC} 0-0.5 [facility] Platelet mean volume Auto (B ld) [Entitic vol]Ordered By: Erika Escobedo on 01-03-2023 Platelet mean volume (Bld) [Entitic vol] 7.2 fL 6.3-10.7 [facility] Platelets Auto (Bld) [#/Vol] Ordered By: Erika Escobedo on 01-03-2023 Platelets (Bld) [#/Vol] 270 10*3/uL 150-450 [facility] Potassium [Moles/volume] in Serum or PlasmaOrdered By: Erika Escobedo on 01-03-2023 Potassium [Moles/Vol] 3.5 mmol/L 3.5-5.1 [facility] Protein Auto test strip (U) [Mass/Vol]Ordered By: Erika Escobedo on 01-03-2023 Protein (U) [Mass/Vol] Negative Negative [facility] Protein [Mass/volume] in Ser um or PlasmaOrdered By: Erika Escobedo on 01-03-2023 Protein [Mass/Vol] 7.4 g/dL 6.4-8.9 [facility] RBC Auto (Bld) [#/Vol]Ordere d By: Erika Escobedo on 01-03-2023 RBC (Bld) [#/Vol] 4.84 10*6/uL 3.60-5.00 [facility] Serum or plasma albumin/glob ulin mass ratioOrdered By: Erika Escobedo on 01-03-2023 Albumin/Globulin [Mass ratio] 1.2 {ratio} [facility] Serum or plasma anion gap de terminationOrdered By: Erika Escobedo on 01-03-2023 Anion gap [Moles/Vol] 11.0 mmol/L 6.0-15.0 [facility] Sodium [Moles/volume] in Ser um or PlasmaOrdered By: Erika Escobedo on 01-03-2023 Sodium [Moles/Vol] 138 mmol/L 136-145 [facility] Specific gravity Auto test s trip (U) [Rel density]Ordered By: Erika Escobedo on 01-03-2023 Specific gravity (U) [Rel density] 1.024 1.001-1.03 0 [facility] Troponin I.cardiac [Mass/vol ume] in Serum or Plasma by Detection limit <= 0.01 ng/Ordered By: Erika Escobedo on 01-03-2023 Troponin I.cardiac DL <= 0.01 ng/mL [Mass/Vol] 13.3 pg/mL 0.0-15.0 [facility] Urea nitrogen [Mass/volume] in Serum or PlasmaOrdered By: Erika Escobedo on 01-03-2023 Urea nitrogen [Mass/Vol] 29 mg/dL 7-25 [facility] Urine clarity by refractomet ry automatedOrdered By: Erika Escobedo on 01-03-2023 Clarity Refractometry automated (U) Clear Clear [facility] Urine glucose measurement by automated test strip (mass/volume)Ordered By: Erika Escobedo on 01-03-2023 Glucose Auto test strip (U) [Mass/Vol] Normal mg/dL Normal [facility] Urine hemoglobin detection b y automated test stripOrdered By: Erika Escobedo on 01-03-2023 Hemoglobin Auto test strip Ql (U) Negative Negative [facility] Urine leukocyte esterase det ection by automated test stripOrdered By: Erika Escobedo on 01-03-2023 Leukocyte esterase Auto test strip Ql (U) Negative Negative [facility] Urobilinogen Auto test strip (U) [Mass/Vol]Ordered By: Erika Escobedo on 01-03-2023 Urobilinogen (U) [Mass/Vol] Normal mg/dL Normal [facility] WBC Auto (Bld) [#/Vol]Ordere d By: Erika Escobedo on 01-03-2023 WBC (Bld) [#/Vol] 8.2 10*3/uL 3.8-11.6 [facility] pH Auto test strip (U)Ordere d By: Erika Escobedo on 01-03-2023 pH (U) 6.5 [pH] 5.0-9.0 [facility] Alanine aminotransferase [En zymatic activity/volume] in Serum or PlasmaOrdered By: Renny Walton on 11-08-2022 ALT [Catalytic activity/Vol] 30 U/L 7-52 [facility] Albumin [Mass/volume] in Ser um or Plasma by Bromocresol green (BCG) dye binding methoOrdered By: Renny Walton on 11-08-2022 Albumin BCG dye [Mass/Vol] 4.3 g/dL 3.5-5.7 [facility] Alkaline phosphatase [Enzyma tic activity/volume] in Serum or PlasmaOrdered By: Renny Walton on 11-08-2022 ALP [Catalytic activity/Vol] 53 U/L 34-104 [facility] Aspartate aminotransferase [ Enzymatic activity/volume] in Serum or PlasmaOrdered By: Renny Walton on 11-08-2022 AST [Catalytic activity/Vol] 19 U/L 13-39 [facility] Basophils Auto (Bld) [#/Vol] Ordered By: Renny Walton on 11-08-2022 Basophils (Bld) [#/Vol] 0.1 10*3/uL 0.0-0.2 [facility] Basophils/100 WBC Auto (Bld) Ordered By: Renny Walton on 11-08-2022 Basophils/100 WBC (Bld) 1.0 % . [facility] Bilirubin.total [Mass/volume ] in Serum or PlasmaOrdered By: Renny Walton on 11-08-2022 Bilirubin [Mass/Vol] 0.7 mg/dL 0.3-1.0 [facility] Calcium [Mass/volume] in Ser um or PlasmaOrdered By: Renny Walton on 11-08-2022 Calcium [Mass/Vol] 9.1 mg/dL 8.6-10.3 [facility] Carbon dioxide, total [Moles /volume] in Serum or PlasmaOrdered By: Renny Walton on 11-08-2022 CO2 [Moles/Vol] 28.2 mmol/L 21.0-31.0 [facility] Chloride [Moles/volume] in S genaro or PlasmaOrdered By: Renny Walton on 11-08-2022 Chloride [Moles/Vol] 106 mmol/L 98-107 [facility] Cholesterol [Mass/volume] in Serum or PlasmaOrdered By: Renny Walton on 11-08-2022 Cholesterol [Mass/Vol] 167 mg/dL 140-200 [facility] Comment on above: Chol less than 200 m g/dl low riskChol 201-239 mg/dl borderline riskChol 240 mg/dl and greater high risk Cholesterol in LDL Calc [Mas s/Vol]Ordered By: Renny Walton on 11-08-2022 Cholesterol in LDL [Mass/Vol] 91 mg/dL 0-100 [facility] Comment on above: LDL ATP III CLASSIFI CATIONLDL less than 100 mg/dL OptimalLDL 100-129 mg/dL Near or above optimalLDL 130-159 mg/dL Borderline highLDL 160-189 mg/dL HighLDL greater than 189 mg/dL Very high Cholesterol in VLDL Calc [Ma ss/Vol]Ordered By: Renny Walton on 11-08-2022 Cholesterol in VLDL [Mass/Vol] 20 mg/dL [facility] Creatinine [Mass/volume] in Serum or PlasmaOrdered By: Renny Walton on 11-08-2022 Creatinine [Mass/Vol] 0.63 mg/dL 0.60-1.20 [facility] Eosinophils Auto (Bld) [#/Vo l]Ordered By: Renny Walton on 11-08-2022 Eosinophils (Bld) [#/Vol] 0.1 10*3/uL 0.0-0.45 [facility] Eosinophils/100 WBC Auto (Bl d)Ordered By: Renny Walton on 11-08-2022 Eosinophils/100 WBC (Bld) 1.0 % . [facility] Erythrocyte distribution wid th Auto (RBC) [Ratio]Ordered By: Renny Walton on 11-08-2022 Erythrocyte distribution width (RBC) [Ratio] 13.1 % 11.9-15.3 [facility] Globulin Calc (S) [Mass/Vol] Ordered By: Renny Walton on 11-08-2022 Globulin (S) [Mass/Vol] 2.9 g/dL [facility] Glucose [Mass/volume] in Ser um or PlasmaOrdered By: Renny Walton on 11-08-2022 Glucose [Mass/Vol] 110 mg/dL 70-100 [facility] Comment on above: ADA recommended refe rence range Glucose mean value [Mass/vol ume] in Blood Estimated from glycated hemoglobinOrdered By: Renny Walton on 11-08-2022 Average glucose Estimated from glycated hemoglobin (Bld) [Mass/Vol] 114 mg/dL [facility] Hematocrit Auto (Bld) [Volum e fraction]Ordered By: Renny Walton on 11-08-2022 Hematocrit (Bld) [Volume fraction] 42.2 % 34.0-46.4 [facility] Hemoglobin [Mass/volume] in BloodOrdered By: Renny Walton on 11-08-2022 Hemoglobin (Bld) [Mass/Vol] 14.2 g/dL 11.8-15.4 [facility] - Hematology and Cell countsOrdered By: Renny Walton on 11-08-2022 HbA1c (Bld) [Mass fraction] 5.6 % 4.3-5.6 [facility] Comment on above: Increased risk for d iabetes: 5.7 - 6.4diabetes: >6.4glycemic control for adults with diabetes: <7.0 Leukocytes [#/volume] correc rani for nucleated erythrocytes in Blood by Automated counOrdered By: Renny Walton on 11-08-2022 WBC corrected for nucl RBC Auto (Bld) [#/Vol] 7.0 10*3/uL 3.8-11.6 [facility] Lymphocytes Auto (Bld) [#/Vo l]Ordered By: Renny Walton on 11-08-2022 Lymphocytes (Bld) [#/Vol] 1.9 10*3/uL 1.00-4.8 [facility] Lymphocytes/100 WBC Auto (Bl d)Ordered By: Renny Walton on 11-08-2022 Lymphocytes/100 WBC (Bld) 26.9 % . [facility] MCH Auto (RBC) [Entitic mass ]Ordered By: Renny Walton on 11-08-2022 MCH (RBC) [Entitic mass] 30.8 pg 24.7-34.3 [facility] MCHC Auto (RBC) [Mass/Vol]Or dered By: Renny Walton on 11-08-2022 MCHC (RBC) [Mass/Vol] 33.5 g/dL 32.0-35.0 [facility] MCV Auto (RBC) [Entitic vol] Ordered By: Renny Walton on 11-08-2022 MCV (RBC) [Entitic vol] 91.7 fL 80-100 [facility] Monocytes Auto (Bld) [#/Vol] Ordered By: Renny Walton on 11-08-2022 Monocytes (Bld) [#/Vol] 0.5 10*3/uL 0.0-0.8 [facility] Monocytes/100 WBC Auto (Bld) Ordered By: Renny Walton on 11-08-2022 Monocytes/100 WBC (Bld) 7.0 % . [facility] Neutrophils Auto (Bld) [#/Vo l]Ordered By: Renny Walton on 11-08-2022 Neutrophils (Bld) [#/Vol] 4.5 10*3/uL 1.8-7.7 [facility] Neutrophils/100 WBC Auto (Bl d)Ordered By: Renny Walton on 11-08-2022 Neutrophils/100 WBC (Bld) 64.1 % . [facility] No Panel InformationOrdered By: Renny Walton on 11-08-2022 Estimated GFR (CKD-EPI) > 60.0 mL/Min [facility] Nicotine Metabolite Negative Cutoff=25 [facility] Comment on above: Performed at: - [address] [id number] Director: Merary Mccartney MD, Phone: [phone] Pharmacy Creatinine Clearance (Chem N/A [facility] Nucleated erythrocytes [Pres ence] in Blood by Automated countOrdered By: Renny Walton on 11-08-2022 Nucleated RBC Auto Ql (Bld) 0.1 /100{WBC} 0-0.5 [facility] Platelet mean volume Auto (B ld) [Entitic vol]Ordered By: Renny Walton on 11-08-2022 Platelet mean volume (Bld) [Entitic vol] 7.0 fL 6.3-10.7 [facility] Platelets Auto (Bld) [#/Vol] Ordered By: Renny Walton on 11-08-2022 Platelets (Bld) [#/Vol] 304 10*3/uL 150-450 [facility] Potassium [Moles/volume] in Serum or PlasmaOrdered By: Renny Walton on 11-08-2022 Potassium [Moles/Vol] 3.9 mmol/L 3.5-5.1 [facility] Protein [Mass/volume] in Ser um or PlasmaOrdered By: Renny Walton on 11-08-2022 Protein [Mass/Vol] 7.2 g/dL 6.4-8.9 [facility] RBC Auto (Bld) [#/Vol]Ordere d By: Renny Walton on 11-08-2022 RBC (Bld) [#/Vol] 4.60 10*6/uL 3.60-5.00 [facility] Serum or plasma albumin/glob ulin mass ratioOrdered By: Renny Walton on 11-08-2022 Albumin/Globulin [Mass ratio] 1.5 {ratio} [facility] Serum or plasma anion gap de terminationOrdered By: Renny Walton on 11-08-2022 Anion gap [Moles/Vol] 11.7 mmol/L 6.0-15.0 [facility] Serum or plasma high density lipoprotein (HDL) cholesterol measurementOrdered By: Renny Walton on 11-08-2022 Cholesterol in HDL [Mass/Vol] 55 mg/dL 23-92 [facility] Comment on above: HDL CHOL ATP-III CLA SSIFICATION Cardiovascular RiskHDL > or equal to 60 mg/dL LOWHDL < 40 mg/dL HIGH Serum or plasma total choles terol/high density lipoprotein (HDL) cholesterol mass ratOrdered By: Renny Walton on 11-08-2022 Cholesterol.total/Chol esterol in HDL [Mass ratio] 3.0 {ratio} <5.0 [facility] Sodium [Moles/volume] in Ser um or PlasmaOrdered By: Renny Walton on 11-08-2022 Sodium [Moles/Vol] 142 mmol/L 136-145 [facility] Thyrotropin [Units/volume] i n Serum or PlasmaOrdered By: Renny Walton on 11-08-2022 TSH Qn 2.88 m[IU]/L 0.45-5.33 [facility] Triglyceride [Mass/volume] i n Serum or PlasmaOrdered By: Renny Walton on 11-08-2022 Triglyceride [Mass/Vol] 103 mg/dL 0-149 [facility] Comment on above: TRIG ATP III CLASSIF ICATIONTRIG less than 150 mg/dL NormalTRIG 150-199 mg/dL Borderline highTRIG 200-500 mg/dL High TRIG greater than 500 mg/dL Very highStandard traceable to the Center for Disease Conrtrol and Prevention (CDC) test method. Urea nitrogen [Mass/volume] in Serum or PlasmaOrdered By: Renny Walton on 11-08-2022 Urea nitrogen [Mass/Vol] 17 mg/dL 7- [facility] WBC Auto (Bld) [#/Vol]Ordere d By: Renny Walton on 11-08-2022 WBC (Bld) [#/Vol] 7.0 10*3/uL 3.8-11.6 [facility] Alanine aminotransferase [En zymatic activity/volume] in Serum or PlasmaOrdered By: Cecilio Dumont on 08-16-2022 ALT [Catalytic activity/Vol] 37 U/L 7-52 [facility] Albumin [Mass/volume] in Ser um or Plasma by Bromocresol green (BCG) dye binding methoOrdered By: Cecilio Dumont on 08-16-2022 Albumin BCG dye [Mass/Vol] 4.3 g/dL 3.5-5.7 [facility] Alkaline phosphatase [Enzyma tic activity/volume] in Serum or PlasmaOrdered By: Cecilio Dumont on 08-16-2022 ALP [Catalytic activity/Vol] 56 U/L 34-104 [facility] Aspartate aminotransferase [ Enzymatic activity/volume] in Serum or PlasmaOrdered By: Cecilio Dumont on 08-16-2022 AST [Catalytic activity/Vol] 22 U/L 13-39 [facility] Basophils Auto (Bld) [#/Vol] Ordered By: Cecilio Dumont on 08-16-2022 Basophils (Bld) [#/Vol] 0.1 10*3/uL 0.0-0.2 [facility] Basophils/100 WBC Auto (Bld) Ordered By: Cecilio Dumont on 08-16-2022 Basophils/100 WBC (Bld) 0.9 % . [facility] Bilirubin.total [Mass/volume ] in Serum or PlasmaOrdered By: Cecilio Dumont on 08-16-2022 Bilirubin [Mass/Vol] 0.6 mg/dL 0.3-1.0 [facility] Calcium [Mass/volume] in Ser um or PlasmaOrdered By: Cecilio Dumont 08-16-2022 Calcium [Mass/Vol] 9.4 mg/dL 8.6-10.3 [facility] Carbon dioxide, total [Moles /volume] in Serum or PlasmaOrdered By: Cecilio Dumont 08-16-2022 CO2 [Moles/Vol] 30.5 mmol/L 21.0-31.0 [facility] Chloride [Moles/volume] in S genaro or PlasmaOrdered By: Cecilio Dumont 08-16-2022 Chloride [Moles/Vol] 104 mmol/L 98-107 [facility] Creatinine [Mass/volume] in Serum or PlasmaOrdered By: Cecilio Dumont on 08-16-2022 Creatinine [Mass/Vol] 0.65 mg/dL 0.60-1.20 [facility] Eosinophils Auto (Bld) [#/Vo l]Ordered By: Cecilio Dumont on 08-16-2022 Eosinophils (Bld) [#/Vol] 0.1 10*3/uL 0.0-0.45 [facility] Eosinophils/100 WBC Auto (Bl d)Ordered By: Cecilio Dumont on 08-16-2022 Eosinophils/100 WBC (Bld) 1.1 % . [facility] Erythrocyte distribution wid th Auto (RBC) [Ratio]Ordered By: Cecilio Dumont on 08-16-2022 Erythrocyte distribution width (RBC) [Ratio] 13.0 % 11.9-15.3 [facility] Free thyroxine indexOrdered By: Cecilio Dumont on 08-16-2022 Free T4 index Calc [Mass/Vol] 2.5 1.2-4.9 [facility] Globulin Calc (S) [Mass/Vol] Ordered By: Cecilio Dumont on 08-16-2022 Globulin (S) [Mass/Vol] 3.0 g/dL [facility] Glucose [Mass/volume] in Ser um or PlasmaOrdered By: Cecilio Dumont on 08-16-2022 Glucose [Mass/Vol] 105 mg/dL 70-100 [facility] Comment on above: ADA recommended refe rence rangeRandom Glucose Reference Range is dependent on time and content of last meal. Glucose of more than 200 mg/dL in a nonstressed, ambulatory subject supports the diagnosis of Diabetes Mellitus. Hematocrit Auto (Bld) [Volum e fraction]Ordered By: Cecilio Dumont on 08-16-2022 Hematocrit (Bld) [Volume fraction] 42.3 % 34.0-46.4 [facility] Hemoglobin [Mass/volume] in BloodOrdered By: Cecilio Dumont 08-16-2022 Hemoglobin (Bld) [Mass/Vol] 14.2 g/dL 11.8-15.4 [facility] Iron [Mass/volume] in Serum or PlasmaOrdered By: Cecilio Dumont 08-16-2022 Iron [Mass/Vol] 87 ug/dL 50-212 [facility] Leukocytes [#/volume] correc rani for nucleated erythrocytes in Blood by Automated counOrdered By: Cecilio Dumont on 08-16-2022 WBC corrected for nucl RBC Auto (Bld) [#/Vol] 7.0 10*3/uL 3.8-11.6 [facility] Lymphocytes Auto (Bld) [#/Vo l]Ordered By: Cecilio Dumont 08-16-2022 Lymphocytes (Bld) [#/Vol] 1.8 10*3/uL 1.00-4.8 [facility] Lymphocytes/100 WBC Auto (Bl d)Ordered By: Cecilio Dumont on 08-16-2022 Lymphocytes/100 WBC (Bld) 26.0 % . [facility] MCH Auto (RBC) [Entitic mass ]Ordered By: Cecilio Dumont on 08-16-2022 MCH (RBC) [Entitic mass] 30.4 pg 24.7-34.3 [facility] MCHC Auto (RBC) [Mass/Vol]Or dered By: Cecilio Dumont on 08-16-2022 MCHC (RBC) [Mass/Vol] 33.7 g/dL 32.0-35.0 [facility] MCV Auto (RBC) [Entitic vol] Ordered By: Cecilio Dumont on 08-16-2022 MCV (RBC) [Entitic vol] 90.2 fL 80-100 [facility] Magnesium [Mass/volume] in S genaro or PlasmaOrdered By: Cecilio Dumont on 08-16-2022 Magnesium [Mass/Vol] 2.0 mg/dL 1.9-2.7 [facility] Monocytes Auto (Bld) [#/Vol] Ordered By: Cecilio Dumont on 08-16-2022 Monocytes (Bld) [#/Vol] 0.5 10*3/uL 0.0-0.8 [facility] Monocytes/100 WBC Auto (Bld) Ordered By: Cecilio Dumont on 08-16-2022 Monocytes/100 WBC (Bld) 7.1 % . [facility] Neutrophils Auto (Bld) [#/Vo l]Ordered By: Cecilio Dumont on 08-16-2022 Neutrophils (Bld) [#/Vol] 4.5 10*3/uL 1.8-7.7 [facility] Neutrophils/100 WBC Auto (Bl d)Ordered By: Cecilio Dumont on 08-16-2022 Neutrophils/100 WBC (Bld) 64.9 % . [facility] No Panel InformationOrdered By: Cecilio Dumont on 08-16-2022 Estimated GFR (CKD-EPI) > 60.0 mL/Min [facility] Free Thyroxine (T4) Direct 8.8 ug/dL 4.5-12.0 [facility] Creatinine Clearance (Chem N/A [facility] Nucleated erythrocytes [Pres ence] in Blood by Automated countOrdered By: Cecilio Dumont on 08-16-2022 Nucleated RBC Auto Ql (Bld) 0.0 /100{WBC} 0-0.5 [facility] Platelet mean volume Auto (B ld) [Entitic vol]Ordered By: Cecilio Dumont on 08-16-2022 Platelet mean volume (Bld) [Entitic vol] 7.3 fL 6.3-10.7 [facility] Platelets Auto (Bld) [#/Vol] Ordered By: Cecilio Dumont on 08-16-2022 Platelets (Bld) [#/Vol] 280 10*3/uL 150-450 [facility] Potassium [Moles/volume] in Serum or PlasmaOrdered By: Cecilio Dumont on 08-16-2022 Potassium [Moles/Vol] 3.6 mmol/L 3.5-5.1 [facility] Protein [Mass/volume] in Ser um or PlasmaOrdered By: Cecilio Dumont on 08-16-2022 Protein [Mass/Vol] 7.3 g/dL 6.4-8.9 [facility] RBC Auto (Bld) [#/Vol]Ordere d By: Cecilio Dumont on 08-16-2022 RBC (Bld) [#/Vol] 4.69 10*6/uL 3.60-5.00 [facility] Serum or plasma albumin/glob ulin mass ratioOrdered By: Cecilio Dumont on 08-16-2022 Albumin/Globulin [Mass ratio] 1.4 {ratio} [facility] Serum or plasma anion gap de terminationOrdered By: Cecilio Dumont on 08-16-2022 Anion gap [Moles/Vol] 10.1 mmol/L 6.0-15.0 [facility] Sodium [Moles/volume] in Ser um or PlasmaOrdered By: Cecilio Dumont on 08-16-2022 Sodium [Moles/Vol] 141 mmol/L 136-145 [facility] TSH DL <= 0.005 mIU/L QnOrde red By: Cecilio Dumont on 08-16-2022 TSH Qn 1.920 m[IU]/L 0.450-4.50 0 [facility] Triiodothyronine (T3) [Mass/ volume] in Serum or PlasmaOrdered By: Ceciloi Dumont on 08-16-2022 T3 [Mass/Vol] 81 ng/dL 71-180 [facility] Comment on above: Performed at: [place] [id number] Director: Tomas Nick PhD, Phone: [phone] Triiodothyronine (T3) resin uptake testOrdered By: Cecilio Dumont on 08-16-2022 T3RU 28 % 24-39 [facility] Urea nitrogen [Mass/volume] in Serum or PlasmaOrdered By: Cecilio Dumont on 08-16-2022 Urea nitrogen [Mass/Vol] 24 mg/dL 7-25 [facility] WBC Auto (Bld) [#/Vol]Ordere d By: Cecilio Dumont on 08-16-2022 WBC (Bld) [#/Vol] 7.0 10*3/uL 3.8-11.6 [facility] XR knee RT 2Von 08-08-2022 XR knee RT 2V [facility] [employer] Other XR knee RT 2V [facility] [employer] Other XR knee RT 2V [address] [place] [address] [facility] Other XR knee RT 2V [address] [facility] Other XR knee RT 2V XRay Report [place] [employer] Other XR knee RT 2V Signed [place] [facility] Other XR knee RT 2V Patient: Benny Hooper i MR#: [id number] [facility] [employer] Other XR knee RT 2V [facility] [employer] Other XR knee RT 2V : 1960 Acct:[id number] [employer] Other XR knee RT 2V Age/Sex: 62 / F ADM Date: 08/08/22 [employer] Other XR knee RT 2V Loc: [facility] [place]: Type : [facility] [employer] Other XR knee RT 2V Attending Dr: Dutch Strange [employer]ush[employer] Other XR knee RT 2V Copies to: Sharla Strange [facility] [employer] Other XR knee RT 2V Ordering Provider: Sharla Strange MANAGER [employer] Other XR knee RT 2V Date of Service: 08/08/22 [employer] Other XR knee RT 2V XR/XR wrist RT 2V: Injury of right wrist, initial encounter [employer] Other XR knee RT 2V ([id number]) XR/XR knee RT 2V: Injury of right knee, initial encounter [employer] Other XR knee RT 2V CLINICAL DATA: Wallace nt tripped and fell landing on right side yesterday. Injury at the right wrist [employer] Other XR knee RT 2V and knee. [employer] Other XR knee RT 2V RIGHT WRIST - 2 views [employer] Other XR knee RT 2V COMPARISON: None [employer] Other XR knee RT 2V AP and lateral views were obtained. No fracture or dislocation is noted. No definite acute fracture [employer] Other XR knee RT 2V or dislocation is identified. There is minimal dorsal soft tissue swelling. [employer] Other XR knee RT 2V X R/XR wrist RT 2V [employer] Other XR knee RT 2V IMPRESSION: [employer] Other XR knee RT 2V NO ACUTE BONY INJURY WITHIN LIMITS OF THE AVAILABLE VIEWS. [employer] Other XR knee RT 2V RIGHT KNEE - 2 views N [facility] Other XR knee RT 2V Weightbearing AP and lateral views were obtained. No acute fracture or dislocation is identified. [employer] Other XR knee RT 2V There is moderate narrowing of the medial tibiofemoral joint compartment. There is tricompartment [employer] Other XR knee RT 2V marginal spurring. T here is an enthesophyte at the insertion of the quadriceps tendon. A small knee [employer] Other XR knee RT 2V effusion is seen. Th ere is no focal soft tissue swelling. [employer] Other XR knee RT 2V DEGENERATIVE CHANGES. [employer] Other XR knee RT 2V NO ACUTE BONY INJURY. [employer] Other XR knee RT 2V Impression dictated by: Danette Granger M.D.08/08/2022 8:28 AM [employer] Other XR knee RT 2V Dictation Location: [place] [address] [employer] Other XR knee RT 2V Transcribed By: ADAM 08/08/22 08 [employer] Other XR knee RT 2V Dictated By: Danette Granger MD 08/08/22 08 [employer] Other XR knee RT 2V Signed By: [employer] Other XR knee RT 2V 08/08/22 [id number] [employer] Other Covid-19 PCR (CVDTB)on 03-17 SARS-CoV-2 (COVID-19) RNA TIFFANY+probe Ql (Unsp spec) Detected Critically abnormal NOT DETECTED [facility] Comment on above: Result Comment: This test is not yet approved or cleared by the [place] FDA. When there are no FDA-approved or cleared tests available, and other criteria are met, FDA can make tests available under an emergency access mechanism called an Emergency Use Authorization (EUA). The EUA for this test is supported by the [place] of Health and Human Service's declaration that [...] longer be used). Performed By: #### [facility] #### [facility] [address] [place] [address] Dr. Rodney Barakat Albumin [Mass/volume] in Ser um or PlasmaOrdered By: Renny Walton on 12-16-2021 Albumin [Mass/Vol] 4.0 g/dL 3.2-5.5 [facility] Basophils Auto (Bld) [#/Vol] Ordered By: Renny Walton on 12-16-2021 Basophils (Bld) [#/Vol] 0.1 10*3/uL 0.0-0.2 [facility] Basophils/100 WBC Auto (Bld) Ordered By: Renny Walton on 12-16-2021 Basophils/100 WBC (Bld) 1.0 % . [facility] Blood hemoglobin measurement (mass/volume)Ordered By: Renny Walton on 12-16-2021 Hemoglobin (Bld) [Mass/Vol] 14.8 g/dL 11.8-15.4 [facility] Blood leukocytes automated c ount (number/volume)Ordered By: Renny Walton on 12-16-2021 WBC (Bld) [#/Vol] 6.5 10*3/uL 4.5-11.0 [facility] Cholesterol [Mass/volume] in Serum or PlasmaOrdered By: Renny Walton on 12-16-2021 Cholesterol [Mass/Vol] 189 mg/dL 140-200 [facility] Comment on above: Chol less than 200 m g/dl low risk Chol 201-239 mg/dl borderline risk Chol 240 mg/dl and greater high risk Cholesterol in LDL Calc [Mas s/Vol]Ordered By: Renny Walton on 12-16-2021 Cholesterol in LDL [Mass/Vol] 113 mg/dL 0-100 [facility] Comment on above: LDL ATP III CLASSIFI CATION LDL less than 100 mg/dL Optimal LDL 100-129 mg/dL Near or above optimal LDL 130-159 mg/dL Borderline high LDL 160-189 mg/dL High LDL greater than 189 mg/dL Very high Cholesterol in VLDL Calc [Ma ss/Vol]Ordered By: Renny Walton on 12-16-2021 Cholesterol in VLDL [Mass/Vol] 27 mg/dL [facility] Creatinine and Glomerular fi ltration rate.predicted panel (S/P/Bld)Ordered By: Renny Walton on 12-16-2021 Creatinine [Mass/Vol] 0.63 mg/dL 0.44-1.03 [facility] Eosinophils Auto (Bld) [#/Vo l]Ordered By: Renny Walton on 12-16-2021 Eosinophils (Bld) [#/Vol] 0.1 10*3/uL 0.0-0.45 [facility] Eosinophils/100 WBC Auto (Bl d)Ordered By: Renny Walton on 12-16-2021 Eosinophils/100 WBC (Bld) 1.2 % . [facility] Erythrocyte distribution wid th Auto (RBC) [Ratio]Ordered By: Renny Walton on 12-16-2021 Erythrocyte distribution width (RBC) [Ratio] 13.9 % 11.9-15.3 [facility] Estimated glomerular filtrat ion rate (GFR) non- AmericanOrdered By: Renny Walton on 12-16-2021 GFR/1.73 sq M.predicted among non-blacks MDRD (S/P/Bld) [Vol rate/Area] > 60 mL/Min [facility] Globulin Calc (S) [Mass/Vol] Ordered By: Renny Walton on 12-16-2021 Globulin (S) [Mass/Vol] 3.3 g/dL [facility] Glucose mean value [Mass/vol ume] in Blood Estimated from glycated hemoglobinOrdered By: Renny Walton on 12-16-2021 Average glucose Estimated from glycated hemoglobin (Bld) [Mass/Vol] 120 mg/dL [facility] Hematocrit Auto (Bld) [Volum e fraction]Ordered By: Renny Walton on 12-16-2021 Hematocrit (Bld) [Volume fraction] 44.9 % 34.0-46.4 [facility] - Chemistry and C hemistry - challengeOrdered By: Renny Walton on 12-16-2021 Glucose [Mass/Vol] 111 mg/dL 70-100 [facility] Comment on above: ADA recommended refe rence range Laboratory - Hematology and Cell countsOrdered By: Renny Walton on 12-16-2021 HbA1c (Bld) [Mass fraction] 5.8 % 4.3-5.6 [facility] Comment on above: Increased risk for d iabetes: 5.7 - 6.4 diabetes: >6.4 glycemic control for adults with diabetes: <7.0 Nucleated RBC/100 WBC (Bld) [Ratio] 0.0 % 0-0.5 [facility] Lymphocytes Auto (Bld) [#/Vo l]Ordered By: Renny Walton on 12-16-2021 Lymphocytes (Bld) [#/Vol] 1.9 10*3/uL 1.00-4.8 [facility] Lymphocytes/100 WBC Auto (Bl d)Ordered By: Renny Walton on 12-16-2021 Lymphocytes/100 WBC (Bld) 29.2 % . [facility] MCH Auto (RBC) [Entitic mass ]Ordered By: Renny Walton on 12-16-2021 MCH (RBC) [Entitic mass] 30.0 pg 24.7-34.3 [facility] MCHC Auto (RBC) [Mass/Vol]Or dered By: Renny Walton on 12-16-2021 MCHC (RBC) [Mass/Vol] 33.0 g/dL 32.0-35.0 [facility] MCV Auto (RBC) [Entitic vol] Ordered By: Renny Walton on 12-16-2021 MCV (RBC) [Entitic vol] 90.8 fL 80-100 [facility] Monocyte %Ordered By: Renny Walton on 12-16-2021 Monocyte % 139 mg/dL 35-149 [facility] Comment on above: TRIG ATP III CLASSIF ICATION TRIG less than 150 mg/dL Normal TRIG 150-199 mg/dL Borderline high TRIG 200-500 mg/dL High TRIG greater than 500 mg/dL Very high Standard traceable to the Center for Disease Conrtrol and Prevention (CDC) test method. Monocytes Auto (Bld) [#/Vol] Ordered By: Renny Walton on 12-16-2021 Monocytes (Bld) [#/Vol] 0.5 10*3/uL 0.0-0.8 [facility] Monocytes/100 WBC Auto (Bld) Ordered By: Renny Walton on 12-16-2021 Monocytes/100 WBC (Bld) 7.4 % . [facility] Neutrophils Auto (Bld) [#/Vo l]Ordered By: Renny Walton on 12-16-2021 Neutrophils (Bld) [#/Vol] 4.0 10*3/uL 1.8-7.7 [facility] Neutrophils/100 WBC Auto (Bl d)Ordered By: Renny Walton on 12-16-2021 Neutrophils/100 WBC (Bld) 61.2 % . [facility] No Panel InformationOrdered By: Renny Walton on 12-16-2021 Estimated GFR () > 60 mL/Min [facility] Comment on above: GFR estimated refere nce range: According to KDOQI guidelines, <60 ml/min/1.73m2 is sufficient to diagnose a patient with chronic kidney disease. Nicotine Metabolite Negative Cutoff=25 [facility] Comment on above: Performed at: [address] [id number] Manager Agriculture: Merary Mccartney MD, Phone: [phone] Pharmacy Creatinine Clearance (Chem N/A [facility] Platelet mean volume Auto (B ld) [Entitic vol]Ordered By: Renny Walton on 12-16-2021 Platelet mean volume (Bld) [Entitic vol] 7.3 fL 6.3-10.7 [facility] Platelets Auto (Bld) [#/Vol] Ordered By: Renny Walton on 12-16-2021 Platelets (Bld) [#/Vol] 286 10*3/uL 150-450 [facility] Protein [Mass/volume] in Ser um or PlasmaOrdered By: Renny Walton on 12-16-2021 Protein [Mass/Vol] 7.3 g/dL 6.1-7.9 [facility] RBC Auto (Bld) [#/Vol]Ordere d By: Renny Walton on 12-16-2021 RBC (Bld) [#/Vol] 4.94 10*6/uL 3.60-5.00 [facility] Serum or plasma alanine carter otransferase measurement without P-5'-P (enzymatic activiOrdered By: Renny Walton on 12-16-2021 ALT No additional P-5'-P [Catalytic activity/Vol] 45 U/L 10-60 [facility] Serum or plasma albumin/glob ulin mass ratioOrdered By: Renny Walton on 12-16-2021 Albumin/Globulin [Mass ratio] 1.2 {ratio} [facility] Serum or plasma alkaline dawood sphatase measurement (enzymatic activity/volume)Ordered By: Renny Walton on 12-16-2021 ALP [Catalytic activity/Vol] 64 U/L 32-92 [facility] Serum or plasma aspartate am inotransferase measurement (enzymatic activity/volume)Ordered By: Renny Walton on 12-16-2021 AST [Catalytic activity/Vol] 25 U/L 10-42 [facility] Serum or plasma calcium hernandez urement (mass/volume)Ordered By: Renny Walton on 12-16-2021 Calcium [Mass/Vol] 9.5 mg/dL 8.2-10.2 [facility] Serum or plasma chloride patrick surement (moles/volume)Ordered By: Renny Walton on 12-16-2021 Chloride [Moles/Vol] 101 mmol/L 95-114 [facility] Serum or plasma high density lipoprotein (HDL) cholesterol measurementOrdered By: Renny Walton on 12-16-2021 Cholesterol in HDL [Mass/Vol] 48 mg/dL 35-85 [facility] Comment on above: HDL CHOL ATP-III CLA SSIFICATION Cardiovascular Risk HDL > or equal to 60 mg/dL LOW HDL < 40 mg/dL HIGH Serum or plasma potassium me asurement (moles/volume)Ordered By: Renny Walton on 12-16-2021 Potassium [Moles/Vol] 4.1 mmol/L 3.5-5.1 [facility] Serum or plasma sodium measu rement (moles/volume)Ordered By: Renny Walton on 12-16-2021 Sodium [Moles/Vol] 138 mmol/L 136-146 [facility] Serum or plasma total biliru bin measurement (mass/volume)Ordered By: Renny Walton on 12-16-2021 Bilirubin [Mass/Vol] 0.6 mg/dL 0.3-1.2 [facility] Serum or plasma total carbon dioxide measurement (moles/volume)Ordered By: Renny Walton on 12-16-2021 CO2 [Moles/Vol] 28.3 mmol/L 22.0-30.0 [facility] Serum or plasma total choles terol/high density lipoprotein (HDL) cholesterol mass ratOrdered By: Renny Walton on 12-16-2021 Cholesterol.total/Chol esterol in HDL [Mass ratio] 3.9 {ratio} <5.0 [facility] Serum or plasma urea nitroge n measurement (mass/volume)Ordered By: Renny Walton on 12-16-2021 Urea nitrogen [Mass/Vol] 22 mg/dL 9-23 [facility] TSH DL <= 0.005 mIU/L QnOrde red By: Renny Walton on 12-16-2021 TSH Qn 2.52 m[IU]/L 0.45-5.33 [facility] COVID-19 SOFIAOrdered By: Wilfrido Walton on 12-09-2021 SARS-CoV+SARS-CoV-2 (COVID-19) Ag IA.rapid Ql (Resp) Negative Negative [facility] Comment on above: This is a duplicate [place] SARS Antigen (FERN) result to be used for statistical tracking purpose only. No Panel InformationOrdered By: Renny Walton on 12-09-2021 SARS Antigen (LFIA) [facility] No Panel Informationon 10-28 Normal -[facility] [address] [place] Work Phone: No Panel Informationon 10-27 -[facility] [facility] [address] [place] Work Phone: Office Visit [...] Metabolic Panel; Status:Active - Retrospective Authorization; Requested for:[id number]; SocHx: Never a smoker Tobacco Use Screening; [...] chest pain. 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 [facility] Tobacco Screening.on 022 Adult depression screening assessment No [facility] [address] [place] Work Phone: Tobacco use status [facility] b) No [facility] [address] [place] Work Phone: Vital Signs Date Time Vital Sign Value Performing Clinician Facility 12-26-2024 08:16-0400 Body height 170.18 cm Cecilio Dumont MD Work Phone: [facility] 12-26-2024 08:16-0400 Body mass index (BMI) [Ratio] 33.6 kg/m2 Cecilio Dumont MD Work Phone: [facility] 12-26-2024 08:16-0400 Body weight 97.52 kg Cecilio Dumont MD Work Phone: [facility] 11-20-2024 16:21-0400 Body height 170.2 cm Joseph Cobian DPM Work Phone: [facility] 11-20-2024 16:21-0400 Body mass index (BMI) [Ratio] 33.67 kg/m2 Joseph Cobian DPM Work Phone: [facility] 11-20-2024 16:21-0400 Body weight 97.52 kg Joseph Cobian DPM Work Phone: [facility] 11-20-2024 16:21-0400 Respiratory rate 18 /min Joseph Cobian DPM Work Phone: [facility] 09-11-2024 08:11-0400 Body height 170.18 cm [facility] 09-11-2024 08:11-0400 Body mass index (BMI) [Ratio] 33.7 kg/m2 [facility] 09-11-2024 08:11-0400 Body weight 97.9 kg [facility] 09-11-2024 08:11-0400 Diastolic blood pressure 75 mm[Hg] [facility] 09-11-2024 08:11-0400 Heart rate 65 /min [facility] 09-11-2024 08:11-0400 Respiratory rate 18 /min [facility] 09-11-2024 08:11-0400 SaO2% (BldA) [Mass fraction] 97 % [facility] 09-11-2024 08:11-0400 Systolic blood pressure 117 mm[Hg] [facility] 06-12-2024 08:16-0500 Body height 170.18 cm [facility] 06-12-2024 08:16-0500 Body mass index (BMI) [Ratio] 32.5 kg/m2 [facility] 06-12-2024 08:16-0500 Body weight 94.46 kg [facility] 06-12-2024 08:16-0500 Diastolic blood pressure 64 mm[Hg] [facility] 06-12-2024 08:16-0500 Heart rate 76 /min [facility] 06-12-2024 08:16-0500 Respiratory rate 16 /min [facility] 06-12-2024 08:16-0500 SaO2% (BldA) [Mass fraction] 96 % [facility] 06-12-2024 08:16-0500 Systolic blood pressure 106 mm[Hg] [facility] 03-22-2024 08:52-0500 Body height 170.2 cm Anneliese Garcia MD Work Phone: [facility] 03-22-2024 08:52-0500 Body mass index (BMI) [Ratio] 32.26 kg/m2 Anneliese Garcia MD Work Phone: [facility] 03-22-2024 08:52-0500 Body weight 93.44 kg Anneliese Garcia MD Work Phone: [facility] 03-22-2024 08:52-0500 Diastolic blood pressure 84 mm[Hg] Anneliese Garcia MD Work Phone: [facility] 03-22-2024 08:52-0500 Heart rate 68 /min Anneliese Garcia MD Work Phone: [facility] 03-22-2024 08:52-0500 Systolic blood pressure 120 mm[Hg] Anneliese Garcia MD Work Phone: [facility] 02-14-2024 08:01-0400 Body height 170.18 cm [facility] 02-14-2024 08:01-0400 Body mass index (BMI) [Ratio] 32 kg/m2 [facility] 02-14-2024 08:01-0400 Body weight 92.73 kg [facility] 02-14-2024 08:01-0400 Diastolic blood pressure 70 mm[Hg] [facility] 02-14-2024 08:01-0400 Heart rate 78 /min [facility] 02-14-2024 08:01-0400 Respiratory rate 18 /min [facility] 02-14-2024 08:01-0400 SaO2% (BldA) [Mass fraction] 98 % [facility] 02-14-2024 08:01-0400 Systolic blood pressure 129 mm[Hg] [facility] 12-20-2023 12:22-0400 Body height 170.18 cm MD Cecilio Dumont Work Phone: [facility] 12-20-2023 12:22-0400 Body mass index (BMI) [Ratio] 32.3 kg/m2 MD Cecilio Dumont Work Phone: [facility] 12-20-2023 12:22-0400 Body weight 93.55 kg MD Ceciilo Dumont Work Phone: [facility] 12-20-2023 12:22-0400 Diastolic blood pressure 79 mm[Hg] MD Cecilio Dumont Work Phone: [facility] 12-20-2023 12:22-0400 Heart rate 69 /min MD Cecilio Dumont Work Phone: [facility] 12-20-2023 12:22-0400 Respiratory rate 16 /min MD Cecilio Dumont Work Phone: [facility] 12-20-2023 12:22-0400 SaO2% (BldA) [Mass fraction] 95 % MD Cecilio Dumont Work Phone: [facility] 12-20-2023 12:22-0400 Systolic blood pressure 131 mm[Hg] MD Cecilio Dumont Work Phone: [facility] 10-27-2023 10:38-0400 Body height 170.18 cm [facility] 10-27-2023 10:38-0400 Body mass index (BMI) [Ratio] 33.5 kg/m2 [facility] 10-27-2023 10:38-0400 Body weight 97.29 kg [facility] 10-27-2023 10:38-0400 Diastolic blood pressure 69 mm[Hg] [facility] 10-27-2023 10:38-0400 Heart rate 76 /min [facility] 10-27-2023 10:38-0400 Respiratory rate 20 /min [facility] 10-27-2023 10:38-0400 SaO2% (BldA) [Mass fraction] 96 % [facility] 10-27-2023 10:38-0400 Systolic blood pressure 108 mm[Hg] [facility] 09-06-2023 07:22-0400 Body height 170.18 cm [facility] 09-06-2023 07:22-0400 Body mass index (BMI) [Ratio] 34.1 kg/m2 [facility] 09-06-2023 07:22-0400 Body weight 98.93 kg [facility] 09-06-2023 07:22-0400 Diastolic blood pressure 74 mm[Hg] [facility] 09-06-2023 07:22-0400 Heart rate 72 /min [facility] 09-06-2023 07:22-0400 Respiratory rate 16 /min [facility] 09-06-2023 07:22-0400 SaO2% (BldA) [Mass fraction] 98 % [facility] 09-06-2023 07:22-0400 Systolic blood pressure 130 mm[Hg] [facility] 07-12-2023 07:41-0500 Body height 170.18 cm [facility] 07-12-2023 07:41-0500 Body mass index (BMI) [Ratio] 33 kg/m2 [facility] 07-12-2023 07:41-0500 Body weight 95.82 kg [facility] 07-12-2023 07:41-0500 Diastolic blood pressure 71 mm[Hg] [facility] 07-12-2023 07:41-0500 Heart rate 76 /min [facility] 07-12-2023 07:41-0500 Respiratory rate 16 /min [facility] 07-12-2023 07:41-0500 SaO2% (BldA) [Mass fraction] 97 % [facility] 07-12-2023 07:41-0500 Systolic blood pressure 107 mm[Hg] [facility] 05-31-2023 07:45-0500 Body height 170.18 cm Isabel Kent Other [employer] Other 05-31-2023 07:45-0500 Body mass index (BMI) [Ratio] 34.81 kg/m2 Isabelher Calller Other [employer] Other 05-31-2023 07:45-0500 Body weight 100.84 kg Isabel Missler Other [employer] Other 05-31-2023 07:45-0500 Diastolic blood pressure 82 mm[Hg] Isabel Missler Other [employer] Other 05-31-2023 07:45-0500 Respiratory rate 18 /min Isabel Missler Other [employer] Other 05-31-2023 07:45-0500 SaO2% (BldA) [Mass fraction] 97 % Isabel Missler Other [employer] Other 05-31-2023 07:45-0500 Systolic blood pressure 127 mm[Hg] Isabel Missler Other [employer] Other 04-21-2023 07:15-0500 Body height 170.18 cm Isabel Missler Other [employer] Other 04-21-2023 07:15-0500 Body mass index (BMI) [Ratio] 35.24 kg/m2 Isabel Missler Other [employer] Other 04-21-2023 07:15-0500 Body weight 102.06 kg Isabel Missler Other [employer] Other 04-21-2023 07:15-0500 Diastolic blood pressure 70 mm[Hg] Isabel Missler Other [employer] Other 04-21-2023 07:15-0500 Respiratory rate 18 /min Isabel Missler Other [employer] Other 04-21-2023 07:15-0500 SaO2% (BldA) [Mass fraction] 95 % Isabel Kent Other [employer] Other 04-21-2023 07:15-0500 Systolic blood pressure 110 mm[Hg] Isabel Kent Other [employer] Other 03-24-2023 08:37-0500 Body height 170.2 cm Anneliese Garcia MD Work Phone: [facility] 03-24-2023 08:37-0500 Body mass index (BMI) [Ratio] 34.93 kg/m2 Anneliese Garcia MD Work Phone: [facility] 03-24-2023 08:37-0500 Body weight 101.15 kg Anneliese Garcia MD Work Phone: [facility] 03-24-2023 08:37-0500 Diastolic blood pressure 84 mm[Hg] Anneliese Garcia MD Work Phone: [facility] 03-24-2023 08:37-0500 Heart rate 64 /min Anneliese Garcia MD Work Phone: [facility] 03-24-2023 08:37-0500 Systolic blood pressure 138 mm[Hg] Anneliese Garcia MD Work Phone: [facility] 03-16-2023 08:00-0400 Body height 170.18 cm Julia Ayon Other [employer] Other 03-16-2023 08:00-0400 Body mass index (BMI) [Ratio] 34.83 kg/m2 Julia Fitt Other [employer] Other 03-16-2023 08:00-0400 Body weight 100.88 kg Julia Ayon Other [employer] Other 03-10-2023 07:45-0400 Body height 170.18 cm Isabel Missler Other [employer] Other 03-10-2023 07:45-0400 Body mass index (BMI) [Ratio] 35.13 kg/m2 Isabel Missler Other [employer] Other 03-10-2023 07:45-0400 Body weight 101.74 kg Isabel Missler Other [employer] Other 03-10-2023 07:45-0400 Diastolic blood pressure 72 mm[Hg] Isabel Missler Other [employer] Other 03-10-2023 07:45-0400 Respiratory rate 18 /min Isabel Missler Other [employer] Other 03-10-2023 07:45-0400 SaO2% (BldA) [Mass fraction] 97 % Isabel Missler Other [employer] Other 03-10-2023 07:45-0400 Systolic blood pressure 112 mm[Hg] Isabel Missler Other [employer] Other 01-27-2023 08:15-0400 Body height 170.18 cm Isabel Missler Other [employer] Other 01-27-2023 08:15-0400 Body mass index (BMI) [Ratio] 34.8 kg/m2 Isabel Missler Other [employer] Other 01-27-2023 08:15-0400 Body weight 100.79 kg Isabel Missler Other [employer] Other 01-27-2023 08:15-0400 Diastolic blood pressure 81 mm[Hg] Isabel Missler Other [employer] Other 01-27-2023 08:15-0400 Respiratory rate 18 /min Isabel Missler Other [employer] Other 01-27-2023 08:15-0400 SaO2% (BldA) [Mass fraction] 99 % Isabel Missler Other [employer] Other 01-27-2023 08:15-0400 Systolic blood pressure 119 mm[Hg] Isabel Missler Other [employer] Other 01-04-2023 16:55-0400 Body temperature 98.3 [degF] MD Cecilio Dumont Work Phone: [facility] 01-04-2023 16:55-0400 Diastolic blood pressure 82 mm[Hg] MD Cecilio Dumont Work Phone: [facility] 01-04-2023 16:55-0400 Heart rate 61 /min MD Cecilio Dumont Work Phone: [facility] 01-04-2023 16:55-0400 Respiratory rate 18 /min MD Cecilio Dumont Work Phone: [facility] 01-04-2023 16:55-0400 SaO2% (BldA) [Mass fraction] 97 % MD Cecilio Dumont Work Phone: [facility] 01-04-2023 16:55-0400 Systolic blood pressure 124 mm[Hg] MD Cecilio Dumont Work Phone: [facility] 01-04-2023 05:53-0400 Body weight 100.3 kg MD Cecilio Dumont Work Phone: [facility] 01-03-2023 17:09-0400 Body height 170.18 cm MD Cecilio Dumont Work Phone: [facility] 01-03-2023 16:05-0400 Body temperature 97.8 [degF] MD Cecilio Dumont Work Phone: [facility] 01-03-2023 16:05-0400 Diastolic blood pressure 64 mm[Hg] MD Cecilio Dumont Work Phone: [facility] 01-03-2023 16:05-0400 Heart rate 76 /min MD Cecilio Dumont Work Phone: [facility] 01-03-2023 16:05-0400 Respiratory rate 20 /min MD Cecilio Dumont Work Phone: [facility] 01-03-2023 16:05-0400 SaO2% (BldA) [Mass fraction] 98 % MD Cecilio Dumont Work Phone: [facility] 01-03-2023 16:05-0400 Systolic blood pressure 125 mm[Hg] MD Cecilio Dumont Work Phone: [facility] 01-03-2023 10:17-0400 Body height 170.18 cm MD Cecilio Dumont Work Phone: [facility] 01-03-2023 10:17-0400 Body weight 100.9 kg MD Cecilio Dumont Work Phone: [facility] 12-16-2022 09:15-0400 Body height 170.18 cm Isabel Kent Other [employer] Other 12-16-2022 09:15-0400 Body mass index (BMI) [Ratio] 36.38 kg/m2 Isabel Calller Other [employer] Other 12-16-2022 09:15-0400 Body weight 105.37 kg Isabel Missler Other [employer] Other 12-16-2022 09:15-0400 Diastolic blood pressure 81 mm[Hg] Isabel Missler Other [employer] Other 12-16-2022 09:15-0400 Respiratory rate 18 /min Isabel Missler Other [employer] Other 12-16-2022 09:15-0400 SaO2% (BldA) [Mass fraction] 98 % Isabel Missler Other [employer] Other 12-16-2022 09:15-0400 Systolic blood pressure 145 mm[Hg] Isabel Missler Other [employer] Other 10-22-2021 08:38-0400 Body height 170.18 cm Cecilio [employer] Hoy Work Phone: [facility] [address] [place] Work Phone: 10-22-2021 08:38-0400 Body mass index (BMI) [Ratio] 36.81 kg/m2 Cecilio M Hoy Work Phone: [facility] [address] [place] Work Phone: 10-22-2021 08:38-0400 Body surface area Derived from formula 2.17 m2 Cecilio M Hoy Work Phone: [facility] [address] [place] Work Phone: 10-22-2021 08:38-0400 Body weight 106.6 kg Cecilio M Hoy Work Phone: [facility] [address] [place] Work Phone: 10-22-2021 08:38-0400 Diastolic blood pressure 92 mm[Hg] Cecilio M Hoy Work Phone: [facility] [address] [place] Work Phone: 10-22-2021 08:38-0400 Diastolic blood pressure 98 mm[Hg] Cecilio Castaneda Hoy Work Phone: [facility] [address] [place] Work Phone: 10-22-2021 08:38-0400 Heart rate 63 /min Cecilio Reedy Work Phone: [facility] [address] [place] Work Phone: 10-22-2021 08:38-0400 Systolic blood pressure 156 mm[Hg] Cecilio Reedy Work Phone: [facility] [address] [place] Work Phone: 10-22-2021 08:38-0400 Systolic blood pressure 160 mm[Hg] Cecilio Castaneda Hoy Work Phone: [facility] [address] [place] Work Phone: 10-06-2021 00:00-0400 60 1 Cecilio Reedangelito Work Phone: [facility] [address] [place] Work Phone: Comment on above: [id number] Encounters Encounter Date Encounter Type Care Provider Facility Start: 12-26-2024 End: 12-26-2024 ambulatory Cecilio Dumont MD Work Phone: [facility] Work Phone: Start: 12-26-2024 End: 12-26-2024 Patient encounter procedure John Castaneda MD -[facility] Work Phone: Start: 12-24-2024 End: 12-24-2024 Patient encounter procedure Cecilio Castaneda MD -[facility] Work Phone: Start: 12-24-2024 End: 12-24-2024 ambulatory Cecilio Dumont MD Work Phone: [facility] Work Phone: Start: 12-20-2024 End: 12-20-2024 Patient encounter procedure Cecilio Castaneda MD -Lab [facility] Work Phone: Start: 12-20-2024 End: 12-20-2024 Departed Referred Renny Finch DO [facility] Start: 12-20-2024 End: 12-20-2024 ambulatory Cecilio Dumont MD Work Phone: [facility] Work Phone: Start: 12-03-2024 End: 12-03-2024 Patient encounter procedure Cecilio Castaneda MD -Lab [facility] Work Phone: Start: 12-03-2024 End: 12-03-2024 ambulatory Cecilio Dumont MD Work Phone: [facility] Work Phone: Start: 12-03-2024 End: 12-03-2024 ambulatory Anthony R NILL Facility:[facility] Start: 12-03-2024 End: 12-03-2024 Patient encounter procedure Anthony R NILL [facility] Start: 11-28-2024 ambulatory Anthony NILL Facility:[facility] Start: 11-25-2024 ambulatory Anthony NILL Facility:[facility] Start: 11-23-2024 End: 11-23-2024 Patient encounter procedure Cecilio Castaneda MD -Ultrasound [facility] Work Phone: Start: 11-23-2024 End: 11-23-2024 ambulatory Cecilio Dumont MD Work Phone: [facility] Work Phone: Start: 11-21-2024 End: 11-21-2024 Patient encounter procedure Cecilio Castaneda MD -Lab [facility] Start: 11-21-2024 End: 11-21-2024 ambulatory Cecilio Dumont MD Work Phone: [facility] Work Phone: Start: 11-20-2024 End: 11-20-2024 [...] encounter procedure Cecilio Dumont MD Work Phone: [facility]-CT Scan [facility] [place] Work Phone: Start: 10-16-2024 End: 10-16-2024 ambulatory Cecilio Dumont MD Work Phone: [facility] Work Phone: Start: 09-27-2024 End: 09-27-2024 Patient encounter procedure Cecilio Dumont MD Work Phone: [facility]-XRay [facility] [place] Work Phone: Start: 09-27-2024 End: 09-27-2024 ambulatory Cecilio Dumont Facility:[facility] Start: 09-11-2024 End: 09-11-2024 ambulatory [facility] Work Phone: Start: 09-11-2024 End: 09-11-2024 Patient encounter procedure [facility] Work Phone: Start: 06-12-2024 End: 06-12-2024 ambulatory [facility] Work Phone: Start: 06-12-2024 End: 06-12-2024 Patient encounter procedure [facility] Work Phone: Start: 03-22-2024 End: 03-22-2024 Office outpatient visit 15 minutes Anneliese Garcia MD Work Phone: [facility] Comment on above: Precordial pain (Elayne celestine Dx); Essential hypertension, benign; Diverticulosis; BMI 32.0-32.9,adult; Never smoked tobacco Start: 03-22-2024 End: 03-22-2024 ambulatory [facility] Start: 02-14-2024 End: 02-14-2024 ambulatory [facility] Work Phone: Start: 02-14-2024 End: 02-14-2024 Patient encounter procedure [facility] Work Phone: Start: 01-19-2024 End: 01-20-2024 Non-patient / Non-visit [facility] Work Phone: Start: 12-20-2023 End: 12-20-2023 ambulatory MD Cecilio Dumont Work Phone: [facility] Work Phone: Start: 12-20-2023 End: 12-20-2023 Patient encounter procedure MD Cecilio Dumont Work Phone: [facility] Work Phone: Start: 11-13-2023 End: 11-13-2023 ambulatory MD Cecilio Dumont Work Phone: [facility] Work Phone: Start: 11-13-2023 End: 11-13-2023 Departed Referred MD Cecilio Dumont [facility] Start: 10-27-2023 End: 10-27-2023 ambulatory [facility] Work Phone: Start: 10-27-2023 End: 10-27-2023 Patient encounter procedure [facility] Work Phone: Start: 09-06-2023 End: 09-06-2023 ambulatory [facility] Work Phone: Start: 09-06-2023 End: 09-06-2023 Patient encounter procedure [facility] Work Phone: Start: 07-12-2023 End: 07-12-2023 Patient encounter procedure [facility] Work Phone: Start: 05-31-2023 (wmnempf/u) [employer] Employee F/U [facility] Start: 05-31-2023 End: 05-31-2023 ambulatory [facility] Other [employer] Other Start: 04-21-2023 (wmnempf/u) [employer] Employee F/U [facility] Start: 04-21-2023 End: 04-21-2023 ambulatory Isabel Missler Other [employer] Other Start: 03-24-2023 End: 03-24-2023 Office outpatient visit 15 minutes Anneliese Garcia MD Work Phone: [facility] Comment on above: Precordial pain (Elayne celestine Dx); Essential hypertension, benign; BMI 34.0-34.9,adult; Encounter to discuss test results Start: 03-16-2023 ([facility]) [employer] Init ial Provider Julia Ayon [facility] Start: 03-16-2023 End: 03-16-2023 ambulatory Julia Ayon Other [facility] Other Start: 03-14-2023 End: 03-15-2023 ambulatory [facility] Start: 03-10-2023 (wmnempf/u) [employer] Employee F/U [facility] Start: 03-10-2023 End: 03-10-2023 ambulatory Isabel Missler Other [facility] Other Start: 02-14-2023 End: 02-15-2023 ambulatory [facility] Start: 01-27-2023 (wmnempf/u) [employer] Employee F/U [facility] Start: 01-27-2023 End: 01-27-2023 ambulatory Isabel Missler Other [facility] Other Start: 01-24-2023 Telephone encounter Cecilio Dumont Work Phone: [facility] [address] [place] Work Phone: Start: 01-09-2023 End: 01-09-2023 ambulatory Isabel Missler Other [facility] Other Start: 01-09-2023 Telephone encounter [facility] Start: 01-04-[address] Cecilio Dumont Facility:[id number] Start: 01-03-2023 End: 01-04-2023 Evaluation and management of inpatient MD Cecilio Dumont Work Phone: [facility] Work Phone: Start: 01-03-2023 End: 01-04-2023 observation encounter MD Cecilio Dumont Work Phone: [facility] Work Phone: Start: 12-16-2022 (WMNEMPNEW) [employer] Employee [facility] Start: 12-16-2022 End: 12-16-2022 ambulatory [facility] Other [employer] Other Start: 12-16-2022 Registered Recurring MD Ladan Dumont Work Phone: [facility]-Weight Management Work Phone: Start: 11-08-2022 End: 11-08-2022 ambulatory MD Cecilio Dumont Work Phone: [facility] Work Phone: Start: 11-08-2022 End: 11-08-2022 Departed Referred MD Cecilio Dumont Work Phone: [facility]-Employee Benefit Screening Start: 08-23-2022 End: 08-23-2022 ambulatory Sharla Strange Other [employer] Other Start: 08-23-2022 Office outpatient vi sit 15 minutes Sharla Strange [facility] Start: 08-16-2022 End: 08-16-2022 ambulatory MD Cecilio Dumont Work Phone: [facility] Work Phone: Start: 08-16-2022 End: 08-16-2022 Patient encounter procedure MD Cecilio Dumont Work Phone: [facility]-Lab [facility] [place] Work Phone: Start: 08-15-2022 End: 08-16-[address] CECILIO DUMONT . Facility:[facility]1 Start: 08-08-2022 Office outpatient ne w 30 minutes Sharla Strange [facility] Start: 08-08-2022 End: 08-08-2022 ambulatory MD Cecliio Dumont Work Phone: [facility] Work Phone: Start: 08-08-2022 End: 08-08-2022 Patient encounter procedure MD Cecilio Dumont Work Phone: [facility] Start: 06-20-2022 Chart Update Cecilio Dumont Work Phone: [facility] [address] DO Work Phone: Start: 04-13-2022 End: 04-13-[address] CECILIO DUMONT . Facility: Start: 12-16-2021 End: 12-16-2021 Departed Referred MD Cecilio Dumont Work Phone: [facility]-Employee Benefit Screening Start: 12-09-2021 End: 12-09-2021 Patient encounter procedure MD Cecilio Dumont Work Phone: [facility] [facility] Start: 10-29-2021 Chart Update Cecilio Dumont Work Phone: [facility] [address] [place] Work Phone: Start: 10-27-2021 End: 10-27-2021 Patient encounter procedure MD Ceciilo Dumont Work Phone: [facility]-Electrodiagnosti cs Start: 05-04-2021 ([facility] C Vac) [facility] Co vid Vaccine Julia Ayon [facility] Start: 05-04-2021 End: 05-04-2021 ambulatory Julia Ayon Other [facility] Other Procedures Date Procedure Procedure Detail Performing [...] IVERSON SARS Antigen (LFIA) MD Cindy wang [employer] Work Phone: 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 Anthony IVERSON Plan of Treatment Date Care Activity Detail Author Start: 2037 RSV High Risk: (Elde rly (60+) or Population) (1 - 1-dose 75+ series) RSV High Risk: (Elderly (60+) or Population) (1 - 1-dose 75+ series) [facility] Start: 01-13-2025 Influenza vaccination Influenz a Vaccine (#1) [facility] Start: 12-26-2024 Plain radiography of pelvis XR pelvi s 1-2V [facility] Start: 12-26-2024 X-ray of right knee, four views XR knee RT 4V* [facility] Start: 12-26-2024 XR Knee - right 4 Views [facility] Start: 12-26-2024 XR Pelvis 1 or 2 Views [facility] Start: 12-24-2024 End: 12-24-2024 Urine culture [facility] Start: 12-24-2024 Bacteria identified in Urine by Culture Urine Culture [facility] Start: 12-20-2024 Bacteria identified in Urine by Culture Urine Culture [facility] Start: 12-20-2024 Urine culture [facility] Start: 12-03-2024 Bacteria identified in Urine by Culture Urine Culture [facility] Start: 12-03-2024 Urine culture [facility] Start: 11-20-2024 End: 11-20-2024 Patient encounter procedure [facility] Comment on above: Capsulitis of metata rsophalangeal (MTP) joint of left foot (Primary Dx); Bone spur of left foot; DJD (degenerative joint disease), ankle and foot, left Start: 11-06-2024 End: 11-06-2024 Patient encounter procedure 11/06/2024 3:50 PM EDT Office Visit [facility] [address] [place] [address] Joseph Cobian DPM [address] [address] Arrived [facility] Comment on above: Arrived Start: 01-14-2024 COVID-19 Vaccine ( season) COVID-19 Vaccine ( season) [facility] Start: 03-06-2023 FUV, Provider: Anneliese Garcia, Status: Pen, Time: 1:20 PM FUV, Provider: Anneliese Garcia, Status: Pen, Time: 1:[address] 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 [address] [place] Work Phone: Start: 12-16-2021 End: 12-16-2021 Departed Referred Departed Referred [facility]-Employee Benefit Screening Start: 12-01-2021 Screening for malign ant neoplasm of breast Mammogram [facility] Start: 11-29-2021 NURSEVST, Provider: KATHIA BEARDEN MECHANIC INSULATOR 1,[id number], Status: Pen, Time: 1:00 PM NURSEVST, Provider: KATHIA BEARDEN MECHANIC INSULATOR 1,[id number], Status: Pen, Time: 1:00 PM -[facility] [address] [place] Work Phone: Start: 06-29-2021 COVID-19 Vaccine (4 - Moderna series) COVID-19 Vaccine (4 - Moderna series) [facility] Start: 2012 Zoster Vaccines (1 of 2) Zoste r Vaccines (1 of 2) [facility] Start: 05-20-2009 MMR Vaccines (1 of 1 - Standard series) MMR Vaccines (1 of 1 - Standard series) [facility] Start: 1992 Screening for malign ant neoplasm of cervix [facility] Start: 1984 DTaP/Tdap/Td Vaccine s (1 - Tdap) DTaP/Tdap/Td Vaccines (1 - Tdap) [facility] Start: 1983 Screening for malign ant neoplasm of cervix [facility] Start: 1980 Hepatitis C screening Hepatiti s C Screening [facility] Start: 1962 HIV screening HIV Screening [facility] Start: 1962 Lipid panel Lipid Panel [facility] Start: 1962 Screening for malign ant neoplasm of colon [facility] Start: 1962 Yearly Adult Physical Yearly A dult Physical [facility] Glucose measurement estimated from glycated hemoglobin [facility] Hemoglobin A1c measurement [facility] Patient referral [facility] Work Phone: Thyrotropin [Units/v olume] in Serum or Plasma [facility] Thyroxine (T4) free index in Serum or Plasma by calculation [facility] Thyroxine measurement [facility] Triiodothyronine (T3 ) [Mass/volume] in Serum or Plasma [facility] Triiodothyronine res in uptake (T3RU) in Serum or Plasma [facility] Immunizations Immunization Date Immunization Notes Care Provider Subhash west 02-26-2024 influenza virus vaccine, unspecified formulation Joseph Cobian DPM Work Phone: [facility] [place] 02-27-2023 influenza, injectabl e, quadrivalent, preservative free Anneliese Garcia MD Work Phone: [facility] Work Phone: 05-04-2021 COVID-19 Moderna Julia Ayon Other [facility] 06-16-2020 Moderna COVID-19 Vaccine 100 MCG/0.5ML Intramuscular Suspension Cecilio M Hoy Work Phone: [facility] 05-19-2020 Moderna COVID-19 Vaccine 100 MCG/0.5ML Intramuscular Suspension Cecilio M Hoy Work Phone: [facility] 01-14-2020 influenza, injectabl e, quadrivalent, preservative free [facility] [place] Work Phone: 04-22-2009 novel [id number], preservative-free, injectable Cecilio M [place] Work Phone: [facility] [address] [place] Work Phone: Payers Date Payer Category Payer Private Health Insurance [id number] 2022 Managed Care (Private) [facility] [id number] 2022 Unknown 1960 Unknown [id number] [id number] .593 1960 Unknown [id number] [id number] .593 1960 Unknown [id number] 2.16.840.1.311652.3.579.2 .356 1960 Unknown [id number] [id number] .1246 1960 Unknown [id number] 2.16.840.1.474586.3.579.2 .1244 1960 Unknown [id number] 2.16.840.1.607456.3.579.2 .1259 1960 Unknown [id number] 2.16.840.1.037474.3.579.2 .1259 1960 Unknown [id number] [id number] .727 1959 Unknown [id number] Self-pay Self Pay [id number] Worker's Compensation [facility] [id number] Social History Date Type Detail Facility Start: 03-24-2023 End: 11-06-2024 Consumes alcohol occasionally Consumes alcohol occasionally [facility] Other Start: 03-24-2023 End: 11-06-2024 Sex Assigned At [facility] Start: 09-30-2021 End: 07-12-2023 Tobacco smoking status NHIS Never smoked tobacco (finding) [facility] Start: 1960 Sex Assigned At Female [facility] Start: 03-24-2023 End: 11-06-2024 Tobacco use and exposure Smokeless tobacco non-user [facility] Work Phone: Start: 03-24-2023 End: 03-22-2024 Alcohol intake Lifetime non-drinker (finding) [facility] Work Phone: Start: 1960 Sex Assigned At Not on file [facility] Work Phone: Start: 03-14-2023 End: 03-24-2023 Exposure to SARS-CoV-2 (event) Not sure [facility] Start: 08-26-2009 End: 06-12-2024 Sex Female (finding) [facility] Tobacco smoking stat us NHIS Tobacco smoking consumption unknown [facility] Start: 11-06-2024 End: 11-20-2024 Alcoholic beverage intake Current drinker of alcohol (finding) [facility] Tobacco smoking status Never [facility] Sexual Orientation [facility] Medical Equipment Procedure Code Equipment Code Equipment Origin al Text Equipment Identifier Dates [id number] Start: 02-24-2020 End: 03-22-2024 Pen Needle, Diab [...] Facility 01-04-2023 Functional status Patient at Baseline [facility] Work Phone: 01-03-2023 Functional status Patient at Baseline [facility] Work Phone: Mental Status Date Assessment Result Facility 01-04-2023 Cognitive function Cognitive Sta tus Patient at Baseline [facility] Work Phone: 01-03-2023 Cognitive function Cognitive Sta tus Patient at Baseline [facility] Work Phone: Clinical Notes 05-04-2021 to 12-26-2024 Note Date & Type Note Facility 12-26-2024 Evaluation note Diagnosis Onset Date Resolution Primary osteoarthritis of right knee acute December 26 7:28am [facility] Work Phone: 1(788) 147-819407-22-2025 NoteGeneral Surgery Office/Clinic Note Chief Complaint consultation [...] E&M of New Patient Moderate 45-59 Min 26535 2. Left flank pain (R10.9: Unspecified abdominal pain) see # 1 Ordered: CT Abdomen/Pelvis w/ Contrast E&M of New Patient Moderate 45-59 Min 46351 3. Nausea (R11.0: Nausea) see # 1 Ordered: CT Abdomen/Pelvis w/ Contrast E&M of New Patient Moderate 45-59 Min 54566 4. Abdominal bloating (R14.0: Abdominal distension (gaseous)) see # 1 Ordered: CT Abdomen/Pelvis w/ Contrast E&M of New Patient Moderate 45-59 Min 73394 5. Frequent loose stools (R19.7: Diarrhea, unspecified) see # 1 Ordered: CT Abdomen/Pelvis w/ Contrast E&M of (more content not included)...[facility]:Result Comment: Electronically Signed By: ZAYRA PACHECO, Anthony Barrera\Date and Time Signed: 12/03/24 09:16 [id number] Radiology Diagnostic study note [facility] [place] [address] [place] [address] Ultrasound Report Signed Patient: Nancy Hooper MR#: [id number] : 1960 Acct:[id number] Age/Sex: 64 / F ADM Date: 5 Loc: Room: Type: [facility] Attending Dr: Cecilio Dumont MD Ordering [...] Degroot M.D. 11/23/2024 5:13 PM Dictation Location: [place] [address] Tech: Ramila Su Transcribed By: ADAM 11/23/241712 Dictated By: Shai Degroot II, MD 11/23/241711 Signed By: 11/23/241712 [facility] Work Phone: 1(410) 610-360307-09-2025 History of Present illness Narrative* Joseph Cobian [...] 10/16/24 CT/CT foot LT wo con: M79.672 ([id number]) CT/CT ankle LT wo con: M79.672 CT [...] midfoot exostectomy in the future Discussed possible viap-tfk-bbhjsyz arch supports and patient may consider and continues ibuprofen and ice p.r.n. and may consider walking boot if not improved in the next few weeks Joseph Cobian DPM documented in this encounterMineral Area [facility] Medical [id number] History of Present illness Narrative* Joseph Cobian, [...] 10/16/24 CT/CT foot LT wo con: M79.672 ([id number]) CT/CT ankle LT wo con: M79.672 CT [...] Patient may continue with conservative treatments including wqpk-jhv-dhlxwge anti- inflammatories and other treatments suggested today. Patient may want to be s cheduled for surgical intervention in the near future. Discussed possibly left midfoot exostectomy in the future Joseph Cobian DPM documented in this encounterMineral Area Regional Medical [id number] Radiology Diagnostic study [facility] [place] [address] CT Scan Report Signed Patient: Nancy Hooper MR#: [id number] : 1960 Acct:[id number] Age/Sex: 64 / F ADM Date: 5 Loc: CT Room: Type: [facility] Attending Dr: Cecilio Dumont MD Copies to: Cecilio Dumont MD~ Ordering Provider: Cecilio Dumont MD Date of Service: 10/16/24 CT/CT foot LT wo con: M79.672 ([id number]) CT/CT ankle LT wo con: M79.672 CT [...] 4:27 PM Dictation Location: [id number] Transcribed By: [facility] 10/16/24 1627 Dictated By: Shai Degroot II, MD 10/16/24 1601 Signed By: 10/16/24 1627 [facility] Work Phone: 1(992) 379-564304-30-2025 Evaluation note* Diagnosis Onset Date Resolution Status Admit Date Arthritis acute September 11 8:10am GERD (gastroesophageal reflu x disease) acute September 11, 2024 8:10am Obesity, Class I, BMI 30-34.9 acute September 11, 2024 8:10am Prediabetes acute September 11, 025 8:10am Stroke acute September 11 8:10am Encounter for weight management noneactive September 11, 2024 8:10am [facility] Work Phone: 1([phone]) 585-438411-08-2024 History of Present illness Narrative* Anneliese Garcia [...] exam, discussion and plan. documented in this [facility] Work Phone: 1(278) 803-965311-08-2024 Instructions* Patient Instructions* Regina Nieto LPN - [...] exercise. PRN Same medications [facility]: 1(317) 785-230801-17-2024 Evaluation note* Encounter Date Diagnosis Assessment Notes [...] Encounter for weight management (ICD-10 - Z76.89) [facility] Other 12-08-2023 Evaluation note* Encounter Date Diagnosis [...] constipation. Not currently using any type of fmsu-dcv-nwsswcj stool softener or fiber supplement. She continues [...] Encounter for weight management (ICD-10 - Z76.89) [facility] Other 11-10-2023 History of Present illness Narrative* [...] to discuss test results [facility] Work Phone: 1(267) 324-495311-10-2023 Instructions* Patient Instructions* Ino Torres MA - [...] time of your visit. [facility] Work Phone: 1(413) 238-461711-02-2023 Evaluation note* Encounter Date Diagnosis Assessment Notes [...] start small to build motivation and momentum [facility] Other 10-27-2023 Evaluation note* Encounter Date Diagnosis [...] Encounter for weight management (ICD-10 - Z76.89) [facility] Other 09-15-2023 Evaluation note* Encounter Date Diagnosis [...] cancer she had her surgery performed at [facility]. Reinforced that it is is responsible for [...] Encounter for weight management (ICD-10 - Z76.89) [facility] Other 08-23-2023 History and physical note Author Nabil Baker [facility] January 04, 2023 2:58am Note Date/Time January 03, 2023 6: 25pm [facility] [address] [place] [address] Hospitalist H&P Signed Patient: Nancy Hooper MR#: [id number] : 1960 Acct:[id number] Age/Sex: 62 / F Adm Date: 3 Loc: Room: [address] [place] [address] Type: ADM INOo Attending Dr: Nabil Baker [...] care Discussed with:?the medical team, the patient [facility] Medical History Benign tumor removed rt neck [...] % (Auto) 15.0 % (.) 01/03/23 10:20 Vilas % (Auto) 8.4 % (.) 01/03/23 10:20 Eos % (Auto) 0.7 % (.) 01/03/23 10:20 Baso % (Auto) 1.0 % (.) 01/03/23 10:20 Nucleat RBC Rel Count 0.1 /100 WBC (0-0.5) 01/03/23 10:20 Neut # (Auto) 6.2 x10E3/uL (1.8-7.7) 01/03/23 10:20 Lymph # (Auto) 1.2 x10E3/uL (1.00-4.8) 01/03/23 10:20 Vilas # (Auto) 0.7 x10E3/uL (0.0-0.8) 01/03/23 10:20 [...] pH 6.5 (5.0-9.0) 01/03/23 15:03 Ur Specific Alta 1.024 (1.001-1.030) 01/03/23 15:03 Urine Protein Negative [...] signed by Nabil Baker MD> 01/04/23 0258 [facility] Work Phone: 1([phone]) 356-103208-04-2023 Evaluation note* Encounter Date Diagnosis Assessment Notes [...] Strongly encouraged to take advantage of our mobile disc jockey available at [facility] that can help work around limitations. Each [...] Dec, Impaired fasting glucose (ICD-10 - R73.01) [facility] Other 04-11-2023 Evaluation note* Encounter Date Diagnosis [...] Aug, Right wrist pain (ICD-10 - M25.531) [facility] Other 03-27-2023 Evaluation note* Encounter Date Diagnosis [...] Jul, Right wrist pain (ICD-10 - M25.531) [facility] Other 12-21-2021 Evaluation note* Encounter Date Diagnosis Assessment Notes Treatment Notes Treatment Clinical Notes Apr, Encounter for immunization (ICD-10 - Z23) Patient presents for COVID-19 vaccination BOOSTER. Pre-screening form answers evaluated with patient. Patient denies current illness or allergic reaction to component of COVID-19 vaccine. Patient provided with current copy of EUA. [facility] Other Consult note Author Kajal Mccauley [facility] January 04, 2023 4:27pm Note Date/Time January 04, 2023 4: 24pm [facility] [address] [place] [address] Cardiology Consult Note Signed Patient: Nancy Hooper MR#: [id number] : 1960 Acct:[id number] Age/Sex: 62 / F Adm Date: 3 Loc: Room: [address] [place] [address] Type: ADM INOo Attending Dr: Nabil Baker MD Copies to: MD Kajal Zelaya MD, [facility] Nabil Baker MD~ Cardiology HPI History of Present Illness Consult Date: 01/04/23 Reason for Consult: Chest pain HPI: Ms. Hooper is a 62 year old female who works in central [employer] at [employer] and who is being seen at the [...] All other review of system essentially unremarkable [facility] Medical History Benign tumor removed rt neck [...] (primary) hypertension Documented By: Kajal Mccauley MD, [facility] 3 1620 Signed By: <Electronically signed by MD PETTY Mccauley> 01/04/23 1627 [facility] Work Phone: Discharge summary Author Nabil Baker [facility] January 05, 2023 1:20am Note Date/Time January 04, 2023 3: 34pm [facility] [address] [place] [address] Discharge Summary Signed Patient: Nancy Hooper MR#: [id number] : 1960 Acct:[id number] Age/Sex: 62 / F Adm Date: 3 Loc: Room: [address] [place] [address]: Nabil Baker MD Copies to: [...] Appearance Clear, Urine pH 6.5, Ur Specific Alta 1.024, Urine Protein Negative, Urine Glucose (UA) [...] signed by Nabil Baker MD> 01/05/23 0120 [facility] Work Phone: Evaluation + Plan note No data available for this section [facility] Evaluation noteNo assessment information available [facility] Work Phone: Evaluation note* Diagnosis Onset Date Resolution Status Chest pain acute Hypertension chronic [facility] Work Phone: Evaluation noteNo InformationNort [facility] Other Evaluation note* Diagnosis Precordial pain- Primary Essential hypertension, benign BMI 34.0-34.9,adult Encounter to discuss test results Other specified counseling documented in this encounter [facility] Work Phone: Evaluation note* Diagnosis Onset Date Resolution Status Arthritis acute GERD (gastroesophageal reflux disease) acute Obesity, Class I, BMI 30-34.9 acute Prediabetes acute Stroke acute Encounter for weight management noneactive Arthritis acute GERD (gastroesophageal reflux disease) acute Obesity, Class I, BMI 30-34.9 acute Prediabetes acute Stroke acute Encounter for weight management noneactive [facility] Work Phone: Evaluation note* Diagnosis Onset Date Resolution Status Arthritis acute GERD (gastroesophageal reflux disease) acute Obesity, Class I, BMI 30-34.9 acute Prediabetes acute Stroke acute Encounter for weight management noneactive [facility] Work Phone: Evaluation note* Diagnosis Precordial pain- Primary Essential hypertension, benign Diverticulosis Diverticulosis of colon (without mention of hemorrhage) BMI 32.0-32.9,adult Never smoked tobacco documented in this encounter [facility] Work Phone: Evaluation note* Diagnosis Onset Date Resolution Status Admit Date Arthritis acute June 12, 2024 8:06am GERD (gastroesophageal reflux disease) acute June 12 8:06am Obesity, Class I, BMI 30-34.9 acute June 12 8:06am Prediabetes acute June 12, 2024 8:06am Stroke acute June 12, 2024 8:06am Encounter for weight management noneactive June 12 8:06am [facility] Work Phone: Evaluation note* Diagnosis Onset Date Resolution Status Admit Date Arthritis acute September 11 8:10am GERD (gastroesophageal reflu x disease) acute September 11, 2024 8:10am Obesity, Class I, BMI 30-34.9 acute September 11, 2024 8:10am Prediabetes acute September 11, 025 8:10am Stroke acute September 11 8:10am Encounter for weight management noneactive September 11, 2024 8:10am [facility] Work Phone: Evaluation note* Diagnosis DJD (degenerative joint disease), ankle and foot, left- Primary Bone spur of left foot Capsulitis of metatarsophalangeal (MTP) joint of left foot documented in this encounter [facility] HealthcareEvaluation note* Diagnosis Capsulitis of metatarsophalangeal (MTP) joint of left foot- Primary Bone spur of left foot DJD (degenerative joint disease), ankle and foot, left [facility] Diagnosis Onset Date Resolution Status Admit Date Primary osteoarthritis of ri ght knee acute December 26 7:28am [facility] Work Phone: History and physical note Author Nabil Baker [facility] January 04, 2023 2:58am Note Date/Time January 03, 2023 6: 25pm [facility] [address] [place] [address] Hospitalist H&P Signed Patient: Nancy Hooper MR#: [id number] : 1960 Acct:[id number] Age/Sex: 62 / F Adm Date: 3 Loc: Room: [address] [place] [address] Type: ADM INOo Attending Dr: Nabil Baker [...] care Discussed with:?the medical team, the patient [facility] Medical History Benign tumor removed rt neck [...] % (Auto) 15.0 % (.) 01/03/23 10:20 Vilas % (Auto) 8.4 % (.) 01/03/23 10:20 Eos % (Auto) 0.7 % (.) 01/03/23 10:20 Baso % (Auto) 1.0 % (.) 01/03/23 10:20 Nucleat RBC Rel Count 0.1 /100 WBC (0-0.5) 01/03/23 10:20 Neut # (Auto) 6.2 x10E3/uL (1.8-7.7) 01/03/23 10:20 Lymph # (Auto) 1.2 x10E3/uL (1.00-4.8) 01/03/23 10:20 Vilas # (Auto) 0.7 x10E3/uL (0.0-0.8) 01/03/23 10:20 [...] pH 6.5 (5.0-9.0) 01/03/23 15:03 Ur Specific Alta 1.024 (1.001-1.030) 01/03/23 15:03 Urine Protein Negative [...] 1 Documented By: Nabil Baker MD 01/03/23 4860 Signed By: <Electronically signed by Nabil Baker MD> 01/04/23 4085 [facility] Work Phone: Hisdjzq general Narrative - Reported* Type Description Date Medical History HTN Medical History diverticulitis Medical History Anxiety Surgical History Collarbone tumor removed Surgical History Knee surgery X2 Surgical History Breast Reduction Hospitalization History See Above Hospitalization History Pneumonia Hospitalization History Diverticulitis Hospitalization History Paralegic Migraines [facility] Other [facility] general Narrative - Reported* Type Description Date Medical History HTN Medical History diverticulitis Medical History Anxiety Medical History GERD Medical History Kidney stones Medical History Migraine headache Medical History Stroke 2009 Surgical History Collarbone tumor removed Surgical History Knee surgery X2 Surgical History Breast Reduction Hospitalization History See Above Hospitalization History Pneumonia Hospitalization History Diverticulitis Hospitalization History Paralegic Migraines [employer] [facility] Other [facility] general Narrative - Reported* Type Description Date [...] [facility] Chest pain [facility] Other Hospital Discharge instructions No data available for this section [facility] Progress note No data available for this section [facility] Reason for referral (narrative)* Consultation (Routine) - Authorized Specialty Diagnoses / Procedures Referred By Frederick murillo Referred To Contact Cardiology Diagnoses Precordial pain Essential hypertension, benign Procedures Follow Up In Cardiology Anneliese Garcia MD [address] [facility] [address], [address] [address] Anneliese Garcia MD [address] [facility] 2, [address] [address] Referral ID Status Reason Start Date Expiration Date V isits Requested Visits Authorized [id number] Authorized 03/24/2023 03/23/2024 1 1 [facility] Work Phone: Reason for referral (narrative)No reason for referral information [facility] Work Phone: Reason for visit Narrative* Consultation (Routine) - Closed Specialty Diagnoses / Procedures Referred By Contac t Referred To Contact Podiatry Diagnoses Pain in left foot Procedures [place] OFFICE/OUTPATIENT NEW LOW MDM 30 MINUTES Cecilio Dumont MD [address] [place] [address] Phone: tel: fax: Joseph Cobian DPM [address] [address] Phone: tel: fax: Referral ID Status Reason Start Date Expiration Date Visits Re quested Visits Authorized [id number] Closed 10/22/2024 01/20/2025 1 1 [facility] Healthcare Summary Purpose Family History No Family [...] Visit Chest pain Hypertension Chief Complaint [employer] follow up Reason for Visit Arthritis GERD [...] DATE CREATED AUTHOR AUTHOR'S ORGANIZ ATION 01/07/2023 [facility] DATE CREATED AUTHOR AUTHOR'S ORGANIZ ATION 03/19/2023 [facility] DATE CREATED AUTHOR AUTHOR'S ORGANIZ ATION 03/24/2024 [facility] DATE CREATED AUTHOR AUTHOR'S ORGANIZ ATION 11/24/2024 [facility] EPIC DATE CREATED AUTHOR AUTHOR'S ORGANIZ ATION 12/05/2024 [facility] DATE CREATED AUTHOR AUTHOR'S ORGANIZ ATION 12/28/2024 [facility] REASON FOR VISIT (unrecogniz ed section and content) Reason Comments Hospital Follow-up Reason Comments Annual Exam Specialty Diagnoses / Procedures Referred By Frederick murillo Referred To Contact Cardiology Diagnoses Precordial pain Essential hypertension, benign Procedures Follow Up In Cardiology Anneliese Garcia MD [address] [place] [address], [address] [address] Phone: tel: fax: Anneliese Garcia MD [address] [facility] 2[address] [place] [address] Phone: tel: fax: Referral ID Status Reason Start Date Expiration Date V isits Requested Visits Authorized [id number] Authorized 03/24/2023 03/23/2024 1 1 Reason Comments [...] Primary Care Provider Active Renny Walton DO [facility] Attending Provider Active Team Status: Active Member [...] Primary Care Provider, Attending Pr ovider Active Marketing Assistant Manager Relationship Specialty Start Date End Date Cecilio Dumont MD [address] [facility] [place] [address] PCP - General 05/15/99 Team Status: Inactive [...] End: November 13, 2023 Renny ALVARADO DO [facility] Attending Provider Active Start: November 13, 2023 [...] February 14, 2024 End: February 14, 2024 Marketing Assistant Manager Relationship Specialty Start Date End Date Cecilio Dumont MD [address] [place] [address] PCP - General 05/15/99 Team Status: Inactive [...] October 16, 2024 End: October 16, 2024 Marketing Assistant Manager Relationship Specialty Start Date End Date Cecilio Dumont MD [address] [place] [address] PCP - General Family Medicine 11/06/24 Marketing Assistant Manager Relationship Specialty Start Date End Date Cecilio Dumont MD [address] [place] [address] PCP - General Family Medicine 11/06/24 Marketing Assistant Manager Relationship Specialty Start Date End Date Cecilio Dumont MD [address] [place] [address] PCP - General Family Medicine 11/06/24 Team [...] End: December 20, 2024 Renny ALVARADO DO [facility] Attending Provider Active Start: December 20, 2024 [...] BE BASED ON THE PRIMARY CLINICAL RECORDS. [facility] [employer] [facility]. provides no warranty or guarantee of the accuracy or completeness of information in this document.
[2024-12-30] MEDS: KETOROLAC TROMETHAMINE 30 MG/ML VIAL 15 MG IVP (02:56)
[2024-12-30 05:25] LABS: Hematocrit 38.1 % (36.0-48.0); Hemoglobin 12.6 g/dL (12.0-16.0); Immature Granulocytes Abs Auto 0.16 10^3/uL (0.00-0.03); Immature Granulocytes Pct Auto 1.0 % (0.0-0.5); Lymphocytes Absolute Auto 2.7 10^3/uL (1.2-3.8); Mean Corpuscular HGB Conc 33.1 g/dL (29.9-35.2); Mean Corpuscular Hemoglobin 30.1 pg (26.7-34.0); Mean Corpuscular Volume 91.1 fL (81.0-99.0); Platelet Count 241 10^3/uL (150-450); Red Blood Count 4.18 10^6/uL (4.20-5.40); White Blood Count 16.5 10^3/uL (4.0-11.0)
[2024-12-30 05:45] LABS: Alanine Aminotransferase 17 U/L (14-59); Albumin Globulin Ratio 0.8; Albumin Level 2.7 g/dL (3.4-5.0); Alkaline Phosphatase 61 U/L (46-116); Anion Gap 8.0; Aspartate Amino Transferase 6 U/L (15-37); Blood Urea Nitrogen 25.0 mg/dL (7.0-18.0); Calcium 8.1 mg/dL (8.5-10.1); Carbon Dioxide 24.9 mmol/L (21.0-32.0); Chloride 111 mmol/L (98-107); Estimated GFR (African America >60 (>=60 mL/min/1.73m^2); Estimated GFR (Non-African Ame >60 (>=60 mL/min/1.73m^2); Globulin 3.4 g/dL; Glucose 104 mg/dL (74-106); Magnesium 1.8 mg/dL (1.8-2.4); Potassium 3.9 mmol/L (3.5-5.1); Sodium 140 mmol/L (136-145); Total Protein 6.1 g/dL (6.4-8.2)
[2024-12-30] MEDS: HYDROMORPHONE HCL 0.5 MG/0.5 ML SYRINGE IVP ×3 (07:19→18:27)
--- OUTSIDE RECORDS SUMMARY | 2024-12-30 08:49 | XMS_ITS | Encounter Summary ---
Author Organization [facility] Address [address] [place] [address] Phone Care Team Providers Care Cooperative Extension Agent Name Role Phone Rafael Dumont MD Primary Care Provider [phone] Encounter Details Date Type Department Care Team (Late st Contact Info) Description 12/16/2021 Orders Only [facility] [address] [place] [address] Conversion, Onbase Social History Tobacco Use Types [...] on filedocumented in this encounter Care Teams Cooperative Extension Agent Relationship Specialty Start Date End Date Rafael Dumont MD [address] [place] [id number] PCP - General 05/15/99 documented as of this encounter
--- OUTSIDE RECORDS SUMMARY | 2024-12-30 08:49 | XMS_ITS | Clinical Summary ---
Author Organization [facility] Address [address] [place] [address] Care Team Providers Care Electronic Gluing Machine Operator Name Role Phone Rafael Dumont MD Primary Care Provider [phone] Allergies Active Allergy Reactions Criticality Noted Date [...] (1 - 1-dose 75+ series) 2037 Insurance [facility] PPO Member Subscriber Plan / Payer (Ef fective 2014-Present) Name:Amanda Hooper Relation to Subscriber:Self Name:Amanda Hooper Payer ID:Not on file Type:PPO Address: [place] [id number] Care Teams Electronic Gluing Machine Operator Relationship Specialty Start Date End Date Rafael Dumont MD PCP - General 06/12/08
--- OUTSIDE RECORDS SUMMARY | 2024-12-30 08:49 | XMS_ITS | Clinical Summary ---
Author Organization [facility] Address [address] [place] [address] Phone Care Team Providers Care Wardrobe Technician Name Role Phone Rafael Dumont MD Primary Care Provider [phone] Allergies Active Allergy Reactions Criticality Noted Date [...] preservative free *Check age /dose* 02/27/2023,01/14/2020 Novel [id number], preservative-free 04/22 Family History Medical History Relation [...] complete this topic Insurance MED Care Teams Wardrobe Technician Relationship Specialty Start Date End Date Rafael Dumont MD [address] [facility] [place] [address] PCP - General 05/15/99
--- OUTSIDE RECORDS SUMMARY | 2024-12-30 08:49 | XMS_ITS | Encounter Summary ---
Author Organization [facility] Address [address] [place] [phone] Phone Care Team Providers Care Button Cutter Name Role Phone Rafael Dumont MD Primary Care Provider + [phone] Encounter Details Date Type Department Care Team (Late st Contact Info) Description 01/04/2023 Scanned Document [facility] [address] [place] [phone] Scanning, Generic Provider Social History Tobacco Use [...] on filedocumented in this encounter Care Teams Button Cutter Relationship Specialty Start Date End Date Rafael Dumont MD [address] [place] [id number] PCP - General 05/15/99 documented as of this encounter
--- OUTSIDE RECORDS SUMMARY | 2024-12-30 08:49 | XMS_ITS | Encounter Summary ---
Author Organization [facility] Address [address] [place] [address] Phone Care Team Providers Care Sports Medicine Physician Name Role Phone Rafael Dumont MD Primary Care Provider [phone] Encounter Details Date Type Department Care Team (Late st Contact Info) Description 03/14/2023 Scanned Document [facility] [address] [facility] [address] [place] [address] Luan Garcia MD [address] [facility] [address] [place] [address] Social History Tobacco Use Types [...] on filedocumented in this encounter Care Teams Sports Medicine Physician Relationship Specialty Start Date End Date Rafael Dumont MD [address] [facility] [place] [address] PCP - General 05/15/99 documented as of this encounter
--- OUTSIDE RECORDS SUMMARY | 2024-12-30 08:49 | XMS_ITS | Encounter Summary ---
Author Organization [facility] Address [address] [place] [phone] Phone Care Team Providers Care Wind Turbine Sheet Metal Worker Name Role Phone Rafael Dumont MD Primary Care Provider [phone] Encounter Details Date Type Department Care Team (Late st Contact Info) Description 11/13/2023 Scanned Document [facility] [address] [place] [phone] Scanning, Generic Provider Social History Tobacco Use [...] on filedocumented in this encounter Care Teams Wind Turbine Sheet Metal Worker Relationship Specialty Start Date End Date Rafael Dumont MD [address] [place] [phone] PCP - General 05/15/99 documented as of this encounter
--- OUTSIDE RECORDS SUMMARY | 2024-12-30 08:49 | XMS_ITS | Encounter Summary ---
Author Organization [facility] Address [address] [place] [address] Phone Care Team Providers Care Automotive Buyer Name Role Phone Rafael Dumont MD Primary Care Provider [phone] Encounter Details Date Type Department Care Team (Late st Contact Info) Description 01/09/2023 Scanned Document [facility] [address] [place] [address] Conversion, Onbase Social History Tobacco Use Types [...] on filedocumented in this encounter Care Teams Automotive Buyer Relationship Specialty Start Date End Date Rafael Dumont MD [address] [facility] [place] [phone] PCP - General 05/15/99 documented as of this encounter
--- OUTSIDE RECORDS SUMMARY | 2024-12-30 08:49 | XMS_ITS | Encounter Summary ---
Author Organization [facility] Address [address] [place] [phone] Phone Care Team Providers Care Healthcare Market Consultant Name Role Phone Rafael Dumont MD Primary Care Provider + [phone] Encounter Details Date Type Department Care Team (Late st Contact Info) Description 01/03/2023 Scanned Document [facility] [address] [place] [phone] Scanning, Generic Provider Social History Tobacco Use [...] on filedocumented in this encounter Care Teams Healthcare Market Consultant Relationship Specialty Start Date End Date Rafael Dumont MD [address] [place] [phone] PCP - General 05/15/99 documented as of this encounter
--- OUTSIDE RECORDS SUMMARY | 2024-12-30 08:49 | XMS_ITS | Encounter Summary ---
Author Organization [facility] Address [address] [place] [address] Phone Care Team Providers Care Entry Writer Name Role Phone Rafael Dumont MD Primary Care Provider [phone] Encounter Details Date Type Department Care Team (Late st Contact Info) Description 09/30/2021 Orders Only [facility] [address] [place] [address] Conversion, Onbase Social History Tobacco Use Types [...] on filedocumented in this encounter Care Teams Entry Writer Relationship Specialty Start Date End Date Rafael Dumont MD [address] [facility] [address] [place] [phone] PCP - General 05/15/99 documented as of this encounter
--- OUTSIDE RECORDS SUMMARY | 2024-12-30 08:49 | XMS_ITS | Encounter Summary ---
Author Organization [facility] Address [address] [place] [phone] Phone Care Team Providers Care Payer Specialist Name Role Phone Rafael Dumont MD Primary Care Provider [phone] Encounter Details Date Type Department Care Team (Late st Contact Info) Description 02/13/2023 Scanned Document [facility] [address] [place] [phone] Scanning, Generic Provider Social History Tobacco Use [...] on filedocumented in this encounter Care Teams Payer Specialist Relationship Specialty Start Date End Date Rafael Dumont MD [address] [place] [address] PCP - General 05/15/99 documented as of this encounter
--- OUTSIDE RECORDS SUMMARY | 2024-12-30 08:49 | XMS_ITS | Encounter Summary ---
Author Organization [facility] Address [address] [place] [address] Care Team Providers Care Inspector Rough Castings Name Role Phone Rafael Dumont MD Primary Care Provider [phone] Encounter Details Date Type Department Care Team (Late st Contact Info) Description 11/13/2024 Abstract [facility] [address] [place] [address] Joseph Cobian, DPM [address] [address] Social History Tobacco Use Types Packs/Day Years [...] on filedocumented in this encounter Care Teams Inspector Rough Castings Relationship Specialty Start Date End Date Rafael Dumont MD [address] [place] [address] PCP - General Family Medicine 11/06/24 documented as of this encounter
--- OUTSIDE RECORDS SUMMARY | 2024-12-30 08:49 | XMS_ITS | Encounter Summary ---
Author Organization [facility] Address [address] [place] [phone] Phone Care Team Providers Care Bucket Operator Name Role Phone Rafael Dumont MD Primary Care Provider [phone] Encounter Details Date Type Department Care Team (Late st Contact Info) Description 02/14/2023 Scanned Document [facility] [address] [place] [phone] Scanning, Generic Provider Social History Tobacco Use [...] on filedocumented in this encounter Care Teams Bucket Operator Relationship Specialty Start Date End Date Rafael Dumont MD [address] [place] [address] PCP - General 05/15/99 documented as of this encounter
--- OUTSIDE RECORDS SUMMARY | 2024-12-30 08:49 | XMS_ITS | Encounter Summary ---
Author Organization [facility] Address [address] [place] [address] Phone Care Team Providers Care Respiratory Care Program Director Name Role Phone Rafael Dumont MD Primary Care Provider [phone] Encounter Details Date Type Department Care Team (Late st Contact Info) Description 09/27/2021 Orders Only [facility] [address] [place] [address] Conversion, Onbase Social History Tobacco Use Types [...] on filedocumented in this encounter Care Teams Respiratory Care Program Director Relationship Specialty Start Date End Date Rafael Dumont MD [address] [place] [phone] PCP - General 05/15/99 documented as of this encounter
--- OUTSIDE RECORDS SUMMARY | 2024-12-30 08:49 | XMS_ITS | Clinical Summary ---
Author Organization [facility] Address [address] [place] [address] Care Team Providers Care Contract Administration Coordinator Name Role Phone Rafael Dumont MD Primary Care Provider [phone] No known active allergies Medications methylPREDNISol one (Medrol Dospak) 4 MG tabletsIndicati ons:DJD (degenerative joint disease), ankle and foot, left Follow schedule on MEDROL PACK package instructions to be used as directed 21 tablet Active Active Problems No known active problems Encounters Date Type Department Care Team Description 11/20/2024 4:10 PM EDT Office Visit [facility] [address] [place] [address] Joseph Cobian, CHRISTO Capsulitis of metatarsophalangeal (MTP) joint of left foot (Primary Dx); Bone spur of left foot; DJD (degenerative joint disease), ankle and foot, left 11/20/2024 Bamboo flowsheet [facility] [address] [place] [address] Joseph Cobian DPM 11/20/2024 Travel 11/13/2024 Abstract [facility] [address] [place] [address] Joseph Cobian DPM 11/06/2024 3:50 PM EDT Office Visit [facility] [address] [place] [address] Joseph Cobian DPM DJD (degenerative joint disease), ankle and foot, left (Primary Dx); Bone spur of left foot; Capsulitis of metatarsophalangeal (MTP) joint of left foot 11/06/2024 Telephone [facility] [address] [place] [address] Joseph Cobian DPM Casting For Braces Or Orthotics 11/06/2024 Bamboo flowsheet [facility] [address] [place] [address] Joseph Cobian DPM 11/05/2024 Travel [...] Danette Granger M.D.12/01/2020 7:55 AM Dictation Location: [facility] Transcribed By: [facility] 12/01/20 0755 Dictated By: Danette Granger MD 12/01/20 0749 Signed By: <Electronically signed by MD Danette Granger in [place]> 12/01/20 0755 Narrative 12/01/2020 12:00 AM EDT PERFORMED AT [facility] LOCATION:[address] [place] [address] [place] [address] Mammography Report Signed Patient: Nancy Hooper MR#: [id number] 68 : 1960 Acct:[id number] Age/Sex: 60 / F ADM Date: 12/01/20 Loc: [place] Room: Type: [facility] Attending Dr: Brannon Winter DO Ordering [...] Note CONVERSION, GENERIC - 11/18/2022 PERFORMED AT [facility] LOCATION:[address] [place] [address] [place] [address] Mammography Report Signed Patient: Nancy Hooper AMR#: [id number] 68 : 1960Acct:[id number] Age/Sex: 60 / FADM Date: 12/01/20 Loc: [place] Room:Type: [facility] Attending Dr: Brannon Winter DO Ordering Provider: Brannon Winter DO Date of Service: 12/01/20 MM/MM special view RT w/CAD: ABN EDOUARD Copies to: MD Barnnon Zelaya DO CLINICAL DATA: Follow-up nodular asymmetry. [...] Danette Granger M.D.12/01/2020 7:55 AM Dictation Location: [facility] Transcribed By: [facility] 12/01/20 0755 Dictated By: Danette Granger MD 12/01/20 0749 Signed By: <Electronically signed by MD Danette Granger in [place]> 12/01/20 0755 Brannon Winter DO IMG BI PROCEDURES Final Resu lt from Last 3 Months or Most Recently Relevant to Health Maintenance Insurance [employer] Care Teams Contract Administration Coordinator Relationship Specialty Start Date End Date Rafael Dumont MD [address] [place] [phone] PCP - General Family Medicine 11/06/24
[2024-12-30] MEDS: CARVEDILOL 12.5 MG TABLET PO ×2 (08:51→21:28)
[2024-12-30] MEDS: LISINOPRIL 20 MG TABLET 40 MG PO (08:51)
[2024-12-30] MEDS: ASPIRIN 81 MG TAB.CHEW PO (08:51)
[2024-12-30] MEDS: PANTOPRAZOLE SODIUM 40 MG TABLET.DR PO (08:51)
--- OUTSIDE RECORDS SUMMARY | 2024-12-30 08:55 | XMS_ITS | CCD ---
Author Organization [facility] Care Team Providers Care Boatswain Mate Name Role Phone Cecilio Dumont Unavailable Unavailable Unavailable Julia Ayon Unavailable MD Cecilio Dumont Primary Care Provider [phone] MD Anneliese Garcia Attending Provider MD Anneliese Garcia Referring Provider DO Renny Walton Attending Provider [phone] Sharla Strange Unavailable MD Cecilio Dumont Primary Care Provider [phone] MARIA T Strange Attending Provider MD [...] Unavailable MD Cecilio Dumont Primary Care Provider [phone] DO Renny Walton Attending Provider [phone] Cecilio Dumont Primary Care Unavail able MD Cecilio Dumont Primary Care Provider [phone] YVROSE Kent Attending Provider MD Erika Escobedo Emergency Provider [phone] MD Nabil Baker Admit Provider MD Nabil Baker Attending Provider [phone] MD Anneliese Garcia Other Provider ANNELIESE GARCIA Referring Unavailable CECILIO DUMONT Primary Care Unavailable ANNELIESE GARCIA Referring Unavailable CECILIO DUMONT Primary Care Unavailable Cecilio Dumont MD Primary Care Provider MD Cecilio Dumont Primary Care Provider [facility], DO Renny Finch Attending Provider ANNELIESE GARCIA Attending Unavailable ANNELIESE GARCIA Referring Unavailable CECILIO DUMONT Primary Care Unavailable Cecilio Dumont MD Primary Care Provider [phone] Cecilio Dumont MD Attending Provider Unavailable Primary Care Provider UnavailCecilio Mcarthur MD Primary Care Provider [phone] Cecilio Dumont MD Primary Care Provider [phone] Isabel Kent APRN Attending Provider [phone] JOSEPH COBIAN Attending Unavailable CECILIO DUMONT Referring Unavailable JOSEPH COBIAN Attending Unavailable Cecilio Dumont Primary Care Physician Anthony IVERSON Attending Unavailable [facility] Renny JOHNSON Attending Provider John Benson MD Attending Provider Cecilio Dumont MD Primary Care Provider [phone] Cecilio Dumont MD Attending Provider Cecilio Dumont Admitting Unavailable Cecilio Dumont Primary Care Unavailable Cecilio Dumont Attending Unavailable Cecilio Dumont Admitting Unavailable Cecilio Dumont Primary Care Unavailable Cecilio Dumont [facility] Attending Unavailable Cecilio Dumont Primary Care Unavailable [...] source) topiramate Drug Allergy 09-06-19 Diarrhea, Vomiting [facility] Cephalosporins (antibiotic) (1 source) Cefuroxime Drug Allergy 09-06-19 [facility] Dihydrofolate Reductase Inhibitors (antibiotic) (1 source) Trimethoprim Drug Allergy 09-06-19 [facility] Doxycycline (1 source) Doxycycline Drug Allergy 09-06-19 [facility] Macrolides (antibiotic) (1 source) Azithromycin Drug Allergy 09-06-19 [facility] Opioid Agonists (1 source) Morphine Drug Allergy 09-06-19 [facility] Penicillins (antibiotic) (2 sources) Amoxicillin Drug Allergy 09-06-19 [facility] Quinolones (antibiotic) (1 source) levoFLOXacin Drug Allergy 09-06-19 [facility] Sulfonamides (antibiotic) (1 source) Sulfamethoxazole Drug Allergy 09-06-19 [facility] (15 sources) Cefuroxime; Translations: [Ceftin] Drug Allergy Weal (disorder) [facility] [place] (20 sources) Penicillins; Translations: [Penicillins] Allergy to drug (finding) 06-17-19 09 Rash, Unknown Reaction, [facility] (3 sources) Morphine Derivatives; Translations: [Morphine Derivatives] Allergy to drug (finding) [address] Work Phone: (20 sources) Amoxicillin Drug Allergy 07-15-19 22 Unknown, [facility] (20 sources) Doxycycline; Translations: [doxycycline] Drug Allergy 07-15-19 22 Weal (disorder) [facility] (16 sources) Erythromycin; Translations: [ERYTHROMYCIN] Drug Allergy 06-17-19 09 Unknown, Weal (disorder) [facility] Rep[facility] (10 sources) levoFLOXacin Drug Allergy Unknown [facility] Other (20 sources) Morphine; Translations: [MORPHINE] Drug Allergy 07-15-19 22 Hives, Itching, Rash [facility] (11 sources) Sulfamethoxazole / Trimethoprim; Translations: [sulfamethoxazole-t rimethoprim] Drug Allergy Eruption of skin (disorder) [facility] [place] (20 sources) FLU Vacine Propensity to adverse reactions 05-31-19 24 dizzy,[facility] (20 sources) Azithromycin Drug Allergy 07-15-19 22 [facility] (20 sources) Cefuroxime Drug Allergy 07-15-19 22 [facility] (20 sources) Sulfamethoxazole Drug Allergy 07-15-19 22 [facility] (20 sources) Trimethoprim Drug Allergy 07-15-19 22 [facility] (1 source) Amoxicillin Drug Allergy [facility] Repository (1 source) Cefuroxime Drug Allergy 11-24-19 13 [facility] Repository (2 sources) Codeine; Translations: [codeine] Drug Allergy 04-17-20 13 [facility] Repository (2 sources) Doxycycline; Translations: [Vibramycin] Drug Allergy 11-24-19 13 [facility] Repository (18 sources) Erythromycin Drug Allergy 11-24-19 13 Rash [facility] Repository (1 source) Morphine Drug Allergy 11-24-19 13 [facility] Repository (2 sources) traMADol; Translations: [Ultram] Drug Allergy 04-17-20 13 [facility] Repository (1 source) Morphine Drug Allergy Unknown [facility] Other (20 sources) topiramate; Translations: [TOPIRAMATE] Drug Allergy 03-14-20 23 Diarrhea, Multiple symptoms (finding) [facility] Repository (4 sources) Cefuroxime; Translations: [CEFUROXIME AXETIL] Drug Allergy 06-17-19 09 Rash [facility] Repository (18 sources) levoFLOXacin; Translations: [LEVOFLOXACIN] Drug Allergy 06-17-19 09 Unknown [facility] Comment on above: Pt indicates she can take this as of 12/20/2023. (4 sources) OTHER; Translations: [OTHER] Propensity to adverse reactions (disorder) 03-13-20 23 Hives, Itching, Fever [facility] Repository (1 source) ALLERGIES NOT ON FILE; Translations: [ALLERGIES NOT ON FILE] Propensity to adverse reactions (disorder) [facility] Repository (2 sources) Penicillins Drug Allergy 06-17-19 09 [facility] Work Phone: (1 source) Codeine; Translations: [codeine] Drug Allergy Vomiting (disorder) [facility] [place] (2 sources) influenza A virus A//[id number] (H1N1) antigen / influenza A virus A//2014 (H3N2) antigen / influenza B virus B/Duvall antigen / influenza B virus B/ antigen; Translations: [influenza virus vaccine] Drug Allergy Weal (disorder) [facility] (2 sources) Penicillin; Translations: [penicillin] Drug Allergy Weal (disorder) [facility] (1 source) traMADol; Translations: [tramadol] Drug Allergy Hives [facility] (1 source) Sulfamethoxazole / Trimethoprim; Translations: [Bactrim] Drug Allergy [facility] Repository (1 source) topiramate; Translations: [Topamax] Drug Allergy [facility] Repository Medications Current Medications Medication [...] Start: 10-22-2021 take 1 capsule by mo [facility] once daily hydroCHLOROthiazide 12.5 MG Oral [...] 11:40am docusate sodium 50 mg / sennosides, prison 8.6 mg oral tablet (20 sources) Start: [...] By: Evaristo Sanchez on 12-26-2024 Study report [facility] [address] [place] [address] XRay Report Signed Patient: Nancy Hooper MR#: [id number] : 1960 Acct:[id number] Age/Sex: 64 / F ADM Date: 5 Loc: [facility] Room: Type: [facility] Attending Dr: John Benson II, MD Copies to: John Benson MD~ Ordering Provider: John Benson MD Date of Service: 12/26/24 XR/XR knee RT 4V*: M25.561 - Pain in right knee 4 views right knee plain film COMPARISON: 08/08/2022 HISTORY: Right knee pain for months ACUTE FINDINGS: No acute findings DEGENERATIVE CHANGE: Progress of the medial degeneration with uxqw-po-[id number] contact patellofemoral and lateral degeneration superior patellar enthesophyte SOFT TISSUE FINDINGS: Unremarkable JOINT EFFUSION: Small POSTOP CHANGES: None BONE MINERALIZATION: Adequate XR/XR knee RT 4V* IMPRESSION: Progression of extensive medial degeneration Impression dictated by: Juwan Sanchez M.D. 12/26/2024 11:45 AM Dictation Location: [place] [address] Transcribed By: [facility] 12/26/24 1145 Dictated By: Juwan Sanchez DO 12/26/24 1144 Signed By: 12/26/24 1145 [facility] Study report [facility] [place] [address] [place] [address] XRay Report Signed Patient: Nancy Hooper MR#: [id number] : 1960 Acct:[id number] Age/Sex: 64 / F ADM Date: 5 Loc: [facility] Room: Type: [facility] Attending Dr: John Benson II, MD Copies [...] DO 12/26/24 1142 Signed By: 12/26/24 1144 [facility] XR knee RT 4V*on 12-26-2024 XR knee RT 4V* [facility] [address] [place] [address] XRay Report Signed Patient: Nancy Hooper MR#: [id number] 68 : 1960 Acct:[id number] Age/Sex: 64 / F ADM Date: 12/26/24 Loc: [facility] Room: Type: [facility] Attending Dr: John Benson II, MD Copies to: John Benson MD Ordering Provider: John Benson MD Date of Service: 12/26/24 XR/XR knee RT 4V*: M25.561 - Pain in right knee 4 views right knee plain film COMPARISON: 08/08/2022 HISTORY: Right knee pain for months ACUTE FINDINGS: No acute findings DEGENERATIVE CHANGE: Progress of the medial degeneration with igrb-wp-[id number] contact patellofemoral and lateral degeneration superior patellar enthesophyte SOFT TISSUE FINDINGS: Unremarkable JOINT EFFUSION: Small POSTOP CHANGES: None BONE MINERALIZATION: Adequate XR/XR knee RT 4V* IMPRESSION: Progression of extensive medial degeneration Impression dictated by: Juwan Sanchez M.D. 12/26/2024 11:45 AM Dictation Location: [facility]20 Transcribed By: ADAM 12/26/24 1145 Dictated By: Juwan Sanchez DO 12/26/24 1144 Signed By: 12/26/24 1145 Normal [facility] XR pelvis 1-2Von 12-26-2024 XR pelvis 1-2V [facility] [place] [facility] [address] [place] [address] XRay Report Signed Patient: Nancy Hooper MR#: [id number] 68 : 1960 Acct:[id number] Age/Sex: 64 / F ADM Date: 12/26/24 Loc: [facility] Room: Type: [facility] Attending Dr: John Benson II, MD Copies [...] Sanchez M.D. 12/26/2024 11:44 AM Dictation Location: [place] [address] Transcribed By: [facility] 12/26/24 1144 Dictated By: Juwan Sanchez DO 12/26/24 1142 Signed By: 12/26/24 1144 Normal [facility] Appearance of UrineOrdered B y: Cecilio Dumont on 12-24-2024 Appearance (U) Clear Normal Clear [facility] Comment on above: Order Comment: Name Collection Type:: Clean-Voided Midstream Performed By: #### C UU, ADDONUAPLUS ####[facility] [id number] [place] [address] [facility] Bacteria [Presence] in Urine by AutomatedOrdered By: Cecilio Dumont on 12-24-2024 Bacteria Auto Ql (U) None seen [HPF] None Seen [facility] Bilirubin Test strip Ql (U)O rdered By: Cecilio Dumont on 12-24-2024 Bilirubin Ql (U) Negative Negative [facility] Calcium oxalate crystals [Pr esence] in Urine by Computer assisted methodOrdered By: Cecilio Dumont on 12-24-2024 Calcium oxalate crystals Computer assisted Ql (U) 3+ [HPF] [facility] Color of Urine by AutoOrdere d By: Cecilio Derekangelito on 12-24-2024 Color (U) Light-yellow Normal Yellow [facility] Comment on above: Order Comment: Name Collection Type:: Clean-Voided Midstream Performed By: #### C UU, ADDONUAPLUS ####[address] [address] [facility] Dipstick and Microscopicon 0 12-24-2024 Bacteria,Urine None Seen Normal None Seen [facility] Comment on above: Order Comment: Name Collection Type:: Clean-Voided Midstream Performed By: #### C UU, ADDONUAPLUS ####[address] [address] [facility] Bilirubin,Urine Negative Normal Negative [facility] Comment on above: Order Comment: Name Collection Type:: Clean-Voided Midstream Performed By: #### C UU, ADDONUAPLUS ####[address] [address] [facility] Calcium Oxalate Crystals,Urine 3+ [HPF] Normal [facility] Comment on above: Order Comment: Name Collection Type:: Clean-Voided Midstream Performed By: #### C UU, ADDONUAPLUS ####[address] [address] [facility] Glucose Ql (U) Normal Normal Normal [facility] Comment on above: Order Comment: Name Collection Type:: Clean-Voided Midstream Performed By: #### C UU, ADDONUAPLUS ####[address] [address] [facility] Hyaline Casts,Urine None Normal 0-8 [facility] Comment on above: Order Comment: Name Collection Type:: Clean-Voided Midstream Performed By: #### C UU, ADDONUAPLUS ####[address] [place] [address] [facility] Mucus,Urine Rare Normal [facility] Comment on above: Order Comment: Name Collection Type:: Clean-Voided Midstream Result Comment: PERF ORMED BY: [facility] [address] [place] [address] PATHOLOGIST DIRECTOR OF KIDS BASSAM BRADFORD M.D. Performed By: #### C UU, ADDONUAPLUS ####[place] [id number] [facility] Nitrite,Urine Negative Normal Negative [facility] Comment on above: Order Comment: Name Collection Type:: Clean-Voided Midstream Performed By: #### C UU, ADDONUAPLUS ####[address] Occult Blood,Urine Trace Normal Negative [facility] Comment on above: Order Comment: Name Collection Type:: Clean-Voided Midstream Performed By: #### C UU, ADDONUAPLUS ####[address] Protein,Urine Negative Normal Negative [facility] Comment on above: Order Comment: Name Collection Type:: Clean-Voided Midstream Performed By: #### C UU, ADDONUAPLUS ####[place] [id number] [facility] RBC,Urine 1-2 Normal 0-4 [facility] Comment on above: Order Comment: Name Collection Type:: Clean-Voided Midstream Performed By: #### C UU, ADDONUAPLUS ####[place] [id number] [facility] Specificy Billings,Urine 1.033 High 1.001-1.03 0 [facility] Comment on above: Order Comment: Name Collection Type:: Clean-Voided Midstream Performed By: #### C UU, ADDONUAPLUS ####[place] [id number] [facility] Squamous Epithelial Cell,Urine 1-2 Normal 0-2 [facility] Comment on above: Order Comment: Name Collection Type:: Clean-Voided Midstream Performed By: #### C UU, ADDONUAPLUS ####[place] [id number] [address] Urobilinogen,Urine Normal Normal Normal [facility] Comment on above: Order Comment: Name Collection Type:: Clean-Voided Midstream Performed By: #### C UU, ADDONUAPLUS ####[address] WBC,Urine 3-4 Normal 0-4 [facility] Comment on above: Order Comment: Name Collection Type:: Clean-Voided Midstream Performed By: #### C UU, ADDONUAPLUS ####[address] Epithelial cells.squamous [# /area] in Urine sediment by Automated countOrdered By: Cecilio Dumont on 12-24-2024 Epithelial cells.squamous Auto (Urine sed) [#/Area] 1-2 [HPF] 0-2 [facility] Erythrocytes [#/area] in Uri ne sediment by Automated countOrdered By: Cecilio Dumont on 12-24-2024 RBC Auto (Urine sed) [#/Area] 1-2 [HPF] 0-4 [facility] Glucose [Mass/volume] in Uri ne by Test stripOrdered By: Cecilio Dumont on 12-24-2024 Glucose Test strip (U) [Mass/Vol] Normal mg/dL Normal [facility] Hemoglobin Test strip Ql (U) Ordered By: Cecilio Dumont on 12-24-2024 Hemoglobin Ql (U) Trace High Negative [facility] Hyaline casts [#/area] in Ur ine sediment by Automated countOrdered By: Cecilio Dumont on 12-24-2024 Hyaline casts Auto (Urine sed) [#/Area] None [LPF] 0-8 [facility] Ketones [Presence] in Urine by Test stripOrdered By: Cecilio Dumont on 12-24-2024 Ketones Ql (U) Negative Normal Negative [facility] Comment on above: Order Comment: Name Collection Type:: Clean-Voided Midstream Performed By: #### C UU, ADDONUAPLUS ####[place] [id number] [place] [id number] [facility] Leukocyte esterase [Presence ] in Urine by Test stripOrdered By: Cecilio Dumont on 12-24-2024 Leukocyte esterase Test strip Ql (U) Negative Normal Negative [facility] Comment on above: Order Comment: Name Collection Type:: Clean-Voided Midstream Performed By: #### C UU, ADDONUAPLUS ####[place] [id number] [place] [id number] [facility] Leukocytes [#/area] in Urine sediment by Automated countOrdered By: Cecilio Dumont on 12-24-2024 WBC Auto (Urine sed) [#/Area] 3-4 [HPF] 0-4 [facility] Mucus [Presence] in Urine by AutomatedOrdered By: Cecilio Dumont on 12-24-2024 Mucus Auto Ql (U) Rare [LPF] [facility] Nitrite Test strip Ql (U)Ord ered By: Cecilio Dumont on 12-24-2024 Nitrite Ql (U) Negative Negative [facility] Protein Test strip (U) [Mass /Vol]Ordered By: Cecilio Dumont on 12-24-2024 Protein (U) [Mass/Vol] Negative Negative [facility] Specific gravity Test strip (U) [Rel density]Ordered By: Cecilio Dumont on 12-24-2024 Specific gravity (U) [Rel density] 1.033 High 1.001-1.03 0 [facility] Urine Cultureon 12-24-2024 Bacteria identified Cx Nom (U) <9,000 colonies/ml mixed bacterial skin contaminants 2 Days PERFORMED BY: [facility] [address] [place] [id number] PATHOLOGIST DIRECTOR OF KIDS BASSAM BRADFORD M.D. Normal [facility] Comment on above: Performed By: #### C UU, ADDONUAPLUS ####[place] [id number] [place] [id number] [facility] Urine cultureOrdered By: Yg Dumont on 12-24-2024 Bacteria identified Cx Nom (U) 2 Days [facility] Urobilinogen Test strip (U) [Mass/Vol]Ordered By: Cecilio Dumont on 12-24-2024 Urobilinogen (U) [Mass/Vol] Normal mg/dL Normal [facility] pH of Urine by Test stripOrd ered By: Cecilio Dumont on 12-24-2024 pH (U) 5.5 [pH] Normal 5.0-9.0 [facility] Comment on above: Order Comment: Name Collection Type:: Clean-Voided Midstream Performed By: #### C UU, ADDONUAPLUS ####[facility] [id number] [place] [address] [place] Alanine aminotransferase [En zymatic activity/volume] in Serum or PlasmaOrdered By: Renny Walton on 12-20-2024 ALT [Catalytic activity/Vol] 16 U/L Normal 7-52 [facility] Comment on above: Performed By: #### P ILLAR CBC, EBS A1C, PILLAR LIPID, PILLAR CMP #### [facility] [address] [place] [address] [place] Albumin [Mass/volume] in Ser um or Plasma by Bromocresol green (BCG) dye binding methoOrdered By: Renny Walton on 12-20-2024 Albumin BCG dye [Mass/Vol] 4.2 g/dL 3.5-5.7 [facility] Alkaline phosphatase [Enzyma tic activity/volume] in Serum or PlasmaOrdered By: Renny Walton on 12-20-2024 ALP [Catalytic activity/Vol] 59 U/L Normal 34-104 [facility] Comment on above: Performed By: #### P ILLAR CBC, EBS A1C, PILLAR LIPID, PILLAR CMP #### [facility] [address] [place] [address] [place] Appearance of UrineOrdered B y: Cecilio Dumont on 12-20-2024 Appearance (U) Clear Normal Clear [facility] Comment on above: Order Comment: Name Collection Type:: Clean-Voided Midstream Performed By: #### C UU, ADDONUAPLUS #### [facility] [address] [place] [address] [place] Aspartate aminotransferase [ Enzymatic activity/volume] in Serum or PlasmaOrdered By: Renny Walton on 12-20-2024 AST [Catalytic activity/Vol] 13 U/L Normal 13-39 [facility] Comment on above: Performed By: #### P ILLAR CBC, EBS A1C, PILLAR LIPID, PILLAR CMP #### [facility] [address] Bacteria [Presence] in Urine by AutomatedOrdered By: Cecilio Dumont on 12-20-2024 Bacteria Auto Ql (U) None seen [HPF] None Seen [facility] Basophils [#/volume] in Bloo d by Automated countOrdered By: Renny Walton on 12-20-2024 Basophils (Bld) [#/Vol] 0.1 10*3/uL Normal 0.0-0.2 [facility] Comment on above: Result Comment: PERF ORMED BY: [address] [place] [address] PATHOLOGIST DIRECTOR OF KIDS BASSAM BRADFORD M.D. Performed By: #### P ILLAR CBC, EBS A1C, PILLAR LIPID, PILLAR CMP #### [facility] [address] [place] [address] Basophils/100 leukocytes in Blood by Automated countOrdered By: Renny Walton on 12-20-2024 Basophils/100 WBC (Bld) 1.1 % Normal . [facility] Comment on above: Performed By: #### P ILLAR CBC, EBS A1C, PILLAR LIPID, PILLAR CMP #### [facility] [address] [place] [address] Bilirubin Test strip Ql (U)O rdered By: Cecilio Dumont on 12-20-2024 Bilirubin Ql (U) Negative Negative [facility] Bilirubin.total [Mass/volume ] in Serum or PlasmaOrdered By: Renny Walton on 12-20-2024 Bilirubin [Mass/Vol] 0.5 mg/dL Normal 0.3-1.0 [facility] Comment on above: Performed By: #### P ILLAR CBC, EBS A1C, PILLAR LIPID, PILLAR CMP #### [facility] [address] [place] [address] Blood estimated average gluc ose determination by estimation from glycated hemoglobinOrdered By: Renny Walton on 12-20-2024 Average glucose Estimated from glycated hemoglobin (Bld) [Mass/Vol] 117 mg/dL [facility] Calcium [Mass/volume] in Ser um or PlasmaOrdered By: Renny Walton on 12-20-2024 Calcium [Mass/Vol] 9.6 mg/dL Normal 8.6-10.3 [facility] Comment on above: Performed By: #### P ILLAR CBC, EBS A1C, PILLAR LIPID, PILLAR CMP #### [facility] [address] [place] [address] [place] Carbon dioxide, total [Moles /volume] in Serum or PlasmaOrdered By: Renny Walton on 12-20-2024 CO2 [Moles/Vol] 28.9 mmol/L Normal 21.0-31.0 [facility] Comment on above: Performed By: #### P ILLAR CBC, EBS A1C, PILLAR LIPID, PILLAR CMP #### [facility] [address] [place] [address] [place] Chloride [Moles/volume] in S genaro or PlasmaOrdered By: Renny Walton on 12-20-2024 Chloride [Moles/Vol] 106 mmol/L Normal 98-107 [facility] Comment on above: Performed By: #### P ILLAR CBC, EBS A1C, PILLAR LIPID, PILLAR CMP #### [facility] [address] [place] [address] [place] Cholesterol [Mass/volume] in Serum or PlasmaOrdered By: Renny Walton on 12-20-2024 Cholesterol [Mass/Vol] 178 mg/dL Normal 140-200 [facility] Comment on above: Chol less than 200 m g/dl low riskChol 201-239 mg/dl borderline riskChol 240 mg/dl and greater high risk Result Comment: Chol less than 200 mg/dl low risk Chol 201-239 mg/dl borderline risk Chol 240 mg/dl and greater high risk Performed By: #### P ILLAR CBC, EBS A1C, PILLAR LIPID, PILLAR CMP #### [facility] [address] [place] [id number] [place] Cholesterol in HDL [Mass/vol ume] in Serum or PlasmaOrdered By: Renny Walton on 12-20-2024 Cholesterol in HDL [Mass/Vol] 52 mg/dL Normal 23-92 [facility] Comment on above: HDL CHOL ATP-III CLA SSIFICATION Cardiovascular RiskHDL > or equal to 60 mg/dL LOWHDL < 40 mg/dL HIGH Result Comment: HDL CHOL ATP-III CLASSIFICATION Cardiovascular Risk HDL > or equal to 60 mg/dL LOW HDL < 40 mg/dL HIGH Performed By: #### P ILLAR CBC, EBS A1C, PILLAR LIPID, PILLAR CMP #### [facility] [address] [place] [address] [place] Cholesterol in LDL Calc [Mas s/Vol]Ordered By: Renny Walton on 12-20-2024 Cholesterol in LDL [Mass/Vol] 90 mg/dL 0-100 [facility] Comment on above: LDL ATP III CLASSIFI CATIONLDL less than 100 mg/dL OptimalLDL 100-129 mg/dL Near or above optimalLDL 130-159 mg/dL Borderline highLDL 160-189 mg/dL HighLDL greater than 189 mg/dL Very high Cholesterol in VLDL Calc [Ma ss/Vol]Ordered By: Renny Walton on 12-20-2024 Cholesterol in VLDL [Mass/Vol] 35 mg/dL [facility] Color of Urine by AutoOrdere d By: Cecilio Dumont on 12-20-2024 Color (U) Light-yellow Normal Yellow [facility] Comment on above: Order Comment: Name Collection Type:: Clean-Voided Midstream Performed By: #### C UU, ADDONUAPLUS #### [facility] [address] [place] [address] [place] Creatinine [Mass/volume] in Serum or PlasmaOrdered By: Renny Walton on 12-20-2024 Creatinine [Mass/Vol] 0.61 mg/dL Normal 0.60-1.20 [facility] Comment on above: Performed By: #### P ILLAR CBC, EBS A1C, PILLAR LIPID, PILLAR CMP #### [facility] [address] [place] [id number] [place] Dipstick and Microscopicon 0 12-20-2024 Bacteria,Urine None Seen Normal None Seen [facility] Comment on above: Order Comment: Name Collection Type:: Clean-Voided Midstream Performed By: #### C UU, ADDONUAPLUS #### [place] [id number] [place] Bilirubin,Urine Negative Normal Negative [facility] Comment on above: Order Comment: Name Collection Type:: Clean-Voided Midstream Performed By: #### C UU, ADDONUAPLUS #### [address] Glucose Ql (U) Normal Normal Normal [facility] Comment on above: Order Comment: Name Collection Type:: Clean-Voided Midstream Performed By: #### C UU, ADDONUAPLUS #### [place] [address] [place] Hyaline Casts,Urine None Normal 0-8 [facility] Comment on above: Order Comment: Name Collection Type:: Clean-Voided Midstream Performed By: #### C UU, ADDONUAPLUS #### [place] [address] [place] Mucus,Urine Rare Normal [facility] Comment on above: Order Comment: Name Collection Type:: Clean-Voided Midstream Result Comment: PERF ORMED BY: [place] [address] PATHOLOGIST DIRECTOR OF KIDS BASSAM BRADFORD M.D. Performed By: #### C UU, ADDONUAPLUS #### [place] [id number] [place] Nitrite,Urine Negative Normal Negative [facility] Comment on above: Order Comment: Name Collection Type:: Clean-Voided Midstream Performed By: #### C UU, ADDONUAPLUS #### [place] [id number] [place] Occult Blood,Urine 1+ Normal Negative [facility] Comment on above: Order Comment: Name Collection Type:: Clean-Voided Midstream Result Comment: PERF ORMED BY: [place] [address] PATHOLOGIST DIRECTOR OF KIDS BASSAM BRADFORD M.D. Performed By: #### C UU, ADDONUAPLUS #### [address] Protein,Urine Negative Normal Negative [facility] Comment on above: Order Comment: Name Collection Type:: Clean-Voided Midstream Performed By: #### C UU, ADDONUAPLUS #### [address] RBC,Urine 1-2 Normal 0-4 [facility] Comment on above: Order Comment: Name Collection Type:: Clean-Voided Midstream Performed By: #### C UU, ADDONUAPLUS #### [address] Specificy [place],Urine 1.020 Normal 1.001-1.03 0 [facility] Comment on above: Order Comment: Name Collection Type:: Clean-Voided Midstream Performed By: #### C UU, ADDONUAPLUS #### [address] Squamous Epithelial Cell,Urine 1-2 Normal 0-2 [facility] Comment on above: Order Comment: Name Collection Type:: Clean-Voided Midstream Performed By: #### C UU, ADDONUAPLUS #### [address] Urobilinogen,Urine Normal Normal Normal [facility] Comment on above: Order Comment: Name Collection Type:: Clean-Voided Midstream Performed By: #### C UU, ADDONUAPLUS #### [place] [address] [place] WBC,Urine 1-2 Normal 0-4 [facility] Comment on above: Order Comment: Name Collection Type:: Clean-Voided Midstream Performed By: #### C UU, ADDONUAPLUS #### [address] EBS A1C with Estimated Ave Chano martinez 12-20-2024 Glucose [Mass/Vol] 117 mg/dL Normal [facility] Comment on above: Result Comment: PERF ORMED BY: [place] [address] PATHOLOGIST DIRECTOR OF KIDS BASSAM BRADFORD M.D. Performed By: #### P ILLAR CBC, EBS A1C, PILLAR LIPID, PILLAR CMP #### [address] Employee Comp Metabolic Pane eliezer 12-20-2024 Albumin [Mass/Vol] 4.2 g/dL Normal 3.5-5.7 [facility] Comment on above: Performed By: #### P ILLAR CBC, EBS A1C, PILLAR LIPID, PILLAR CMP #### [address] GFR/1.73 sq M.predicted MDRD (S/P/Bld) [Vol rate/Area] mL/min/{1.73_m2} Normal [facility] Comment on above: Performed By: #### P ILLAR CBC, EBS A1C, PILLAR LIPID, PILLAR CMP #### [address] Employee Complete Blood Coun ton 12-20-2024 Mean Corpuscular HGB Conc 33.6 g/dL Normal 32.0-35.0 [facility] Comment on above: Performed By: #### P ILLAR CBC, EBS A1C, PILLAR LIPID, PILLAR CMP #### [address] NRBC% 0.0 /100{WBC} Normal 0-0.5 [facility] Comment on above: Performed By: #### P ILLAR CBC, EBS A1C, PILLAR LIPID, PILLAR CMP #### [address] White Blood Count 7.4 [CFU]/mL Normal 3.8-11.6 [facility] Comment on above: Performed By: #### P ILLAR CBC, EBS A1C, PILLAR LIPID, PILLAR CMP #### [address] Employee Lipid Profileon LDL Cholesterol,Calculated 90 mg/dL Normal 0-100 [facility] Comment on above: Result Comment: LDL ATP III CLASSIFICATION LDL less than 100 mg/dL Optimal LDL 100-129 mg/dL Near or above optimal LDL 130-159 mg/dL Borderline high LDL 160-189 mg/dL High LDL greater than 189 mg/dL Very high Performed By: #### P ILLAR CBC, EBS A1C, PILLAR LIPID, PILLAR CMP #### [facility] [address] Triglyceride w/Reflex 178 mg/dL High 0-149 [facility] Comment on above: Result Comment: TRIG ATP III CLASSIFICATION TRIG less than 150 mg/dL Normal TRIG 150-199 mg/dL Borderline high TRIG 200-500 mg/dL High TRIG greater than 500 mg/dL Very high Standard traceable to the Center for Disease Conrtrol and Prevention (CDC) test method. Performed By: #### P ILLAR CBC, EBS A1C, PILLAR LIPID, PILLAR CMP #### [facility] [address] [place] [address] VLDL CHOLESTEROL 35 mg/dL Normal [facility] Comment on above: Performed By: #### P ILLAR CBC, EBS A1C, PILLAR LIPID, PILLAR CMP #### [facility] [address] [place] [address] Eosinophils [#/volume] in Bl ood by Automated countOrdered By: Renny Walton on 12-20-2024 Eosinophils (Bld) [#/Vol] 0.1 10*3/uL Normal 0.0-0.45 [facility] Comment on above: Performed By: #### P ILLAR CBC, EBS A1C, PILLAR LIPID, PILLAR CMP #### [facility] [address] [place] [address] [place] Eosinophils/100 leukocytes i n Blood by Automated countOrdered By: Renny Walton on 12-20-2024 Eosinophils/100 WBC (Bld) 1.6 % Normal . [facility] Comment on above: Performed By: #### P ILLAR CBC, EBS A1C, PILLAR LIPID, PILLAR CMP #### [facility] [address] [place] [address] Epithelial cells.squamous [# /area] in Urine sediment by Automated countOrdered By: Cecilio Dumont on 12-20-2024 Epithelial cells.squamous Auto (Urine sed) [#/Area] 1-2 [HPF] 0-2 [facility] Erythrocyte distribution wid th [Ratio] by Automated countOrdered By: Renny Walton on 12-20-2024 Erythrocyte distribution width (RBC) [Ratio] 13.3 % Normal 11.9-15.3 [facility] Comment on above: Performed By: #### P ILLAR CBC, EBS A1C, PILLAR LIPID, PILLAR CMP #### [facility] [address] [place] [address] Erythrocytes [#/area] in Uri ne sediment by Automated countOrdered By: Cecilio Dumont on 12-20-2024 RBC Auto (Urine sed) [#/Area] 1-2 [HPF] 0-4 [facility] Erythrocytes [#/volume] in B lood by Automated countOrdered By: Renny Walton on 12-20-2024 RBC (Bld) [#/Vol] 4.84 10*6/uL Normal 3.60-5.00 [facility] Comment on above: Performed By: #### P ILLAR CBC, EBS A1C, PILLAR LIPID, PILLAR CMP #### [facility] [address] [place] [address] Glucose [Mass/volume] in Ser um or PlasmaOrdered By: Renny Walton on 12-20-2024 Glucose [Mass/Vol] 111 mg/dL High 70-100 [facility] Comment on above: ADA recommended refe rence range Result Comment: ADA recommended reference range Performed By: #### P ILLAR CBC, EBS A1C, PILLAR LIPID, PILLAR CMP #### [facility] [address] [place] [address] [place] Glucose [Mass/volume] in Uri ne by Test stripOrdered By: Cecilio Dumont on 12-20-2024 Glucose Test strip (U) [Mass/Vol] Normal mg/dL Normal [facility] Hematocrit [Volume Fraction] of Blood by Automated countOrdered By: Renny Walton on 12-20-2024 Hematocrit (Bld) [Volume fraction] 43.0 % Normal 34.0-46.4 [facility] Comment on above: Performed By: #### P ILLAR CBC, EBS A1C, PILLAR LIPID, PILLAR CMP #### [facility] [address] [place] [address] Hemoglobin A1c measurementOr dered By: Renny Walton on 12-20-2024 HbA1c (Bld) [Mass fraction] 5.7 % High 4.3-5.6 [facility] Comment on above: Increased risk for d iabetes: 5.7 - 6.4diabetes: >6.4glycemic control for adults with diabetes: <7.0 Result Comment: Incr eased risk for diabetes: 5.7 - 6.4 diabetes: >6.4 glycemic control for adults with diabetes: <7.0 Performed By: #### P ILLAR CBC, EBS A1C, PILLAR LIPID, PILLAR CMP #### [facility] [address] [place] [address] Hemoglobin Test strip Ql (U) Ordered By: Cecilio Dumont on 12-20-2024 Hemoglobin Ql (U) 1+ High Negative [facility] Hemoglobin [Mass/volume] in BloodOrdered By: Renny Walton on 12-20-2024 Hemoglobin (Bld) [Mass/Vol] 14.5 g/dL Normal 11.8-15.4 [facility] Comment on above: Performed By: #### P ILLAR CBC, EBS A1C, PILLAR LIPID, PILLAR CMP #### [facility] [address] [place] [address] Hyaline casts [#/area] in Ur ine sediment by Automated countOrdered By: Cecilio Dumont on 12-20-2024 Hyaline casts Auto (Urine sed) [#/Area] None [LPF] 0-8 [facility] Ketones [Presence] in Urine by Test stripOrdered By: Cecilio Dumont on 12-20-2024 Ketones Ql (U) Negative Normal Negative [facility] Comment on above: Order Comment: Name Collection Type:: Clean-Voided Midstream Performed By: #### C UU, ADDMARIA FERNANDAUAPLUS #### [facility] [address] [place] [address] [place] Leukocyte esterase [Presence ] in Urine by Test stripOrdered By: Cecilio Dumont on 12-20-2024 Leukocyte esterase Test strip Ql (U) Negative Normal Negative [facility] Comment on above: Order Comment: Name Collection Type:: Clean-Voided Midstream Performed By: #### C UU, ADDONUAPLUS #### [facility] [address] [place] [address] [place] Leukocytes [#/area] in Urine sediment by Automated countOrdered By: Cecilio Dumont on 12-20-2024 WBC Auto (Urine sed) [#/Area] 1-2 [HPF] 0-4 [facility] Leukocytes [#/volume] correc rani for nucleated erythrocytes in Blood by Automated counOrdered By: Renny Walton on 12-20-2024 WBC corrected for nucl RBC Auto (Bld) [#/Vol] 7.4 10*3/uL 3.8-11.6 [facility] Leukocytes [#/volume] in Blo od by Automated countOrdered By: Renny Walton on 12-20-2024 WBC (Bld) [#/Vol] 7.4 10*3/uL Normal 3.8-11.6 [facility] Comment on above: Performed By: #### P ILLAR CBC, EBS A1C, PILLAR LIPID, PILLAR CMP #### [facility] [address] [place] [address] [place] Lymphocytes [#/volume] in Bl ood by Automated countOrdered By: Renny Walton on 12-20-2024 Lymphocytes (Bld) [#/Vol] 2.4 10*3/uL Normal 1.00-4.8 [facility] Comment on above: Performed By: #### P ILLAR CBC, EBS A1C, PILLAR LIPID, PILLAR CMP #### [facility] [address] [place] [address] [place] Lymphocytes/100 leukocytes i n Blood by Automated countOrdered By: Renny Walton on 12-20-2024 Lymphocytes/100 WBC (Bld) 32.1 % Normal . [facility] Comment on above: Performed By: #### P ILLAR CBC, EBS A1C, PILLAR LIPID, PILLAR CMP #### [facility] [address] [place] [address] [place] MCH [Entitic mass] by Automa rani countOrdered By: Renny Walton on 12-20-2024 MCH (RBC) [Entitic mass] 29.9 pg Normal 24.7-34.3 [facility] Comment on above: Performed By: #### P ILLAR CBC, EBS A1C, PILLAR LIPID, PILLAR CMP #### [facility] [address] MCHC Auto (RBC) [Mass/Vol]Or dered By: Renny Walton on 12-20-2024 MCHC (RBC) [Mass/Vol] 33.6 g/dL 32.0-35.0 [facility] MCV [Entitic volume] by Auto mated countOrdered By: Renny Walton on 12-20-2024 MCV (RBC) [Entitic vol] 88.8 fL Normal 80-100 [facility] Comment on above: Performed By: #### P ILLAR CBC, EBS A1C, PILLAR LIPID, PILLAR CMP #### [facility] [address] [place] [address] [place] Monocytes [#/volume] in Bloo d by Automated countOrdered By: Renny Walton on 12-20-2024 Monocytes (Bld) [#/Vol] 0.6 10*3/uL Normal 0.0-0.8 [facility] Comment on above: Performed By: #### P ILLAR CBC, EBS A1C, PILLAR LIPID, PILLAR CMP #### [facility] [address] [place] [address] [place] Monocytes/100 leukocytes in Blood by Automated countOrdered By: Renny Walton on 12-20-2024 Monocytes/100 WBC (Bld) 8.6 % Normal . [facility] Comment on above: Performed By: #### P ILLAR CBC, EBS A1C, PILLAR LIPID, PILLAR CMP #### [facility] [address] [place] [address] [place] Mucus [Presence] in Urine by AutomatedOrdered By: Cecilio Dumont on 12-20-2024 Mucus Auto Ql (U) Rare [LPF] [facility] Neutrophils [#/volume] in Bl ood by Automated countOrdered By: Renny Walton on 12-20-2024 Neutrophils (Bld) [#/Vol] 4.2 10*3/uL Normal 1.8-7.7 [facility] Comment on above: Performed By: #### P ILLAR CBC, EBS A1C, PILLAR LIPID, PILLAR CMP #### [facility] [address] [place] [address] [place] Neutrophils/100 leukocytes i n Blood by Automated countOrdered By: Renny Walton on 12-20-2024 Neutrophils/100 WBC (Bld) 56.6 % Normal . [facility] Comment on above: Performed By: #### P ILLAR CBC, EBS A1C, PILLAR LIPID, PILLAR CMP #### [facility] [address] Nitrite Test strip Ql (U)Ord ered By: Cecilio Dumont on 12-20-2024 Nitrite Ql (U) Negative Negative [facility] No Panel InformationOrdered By: Renny Walton on 12-20-2024 Estimated GFR (CKD-EPI) > 60.0 mL/Min [facility] Creatinine Clearance (Chem N/A [facility] Nucleated erythrocytes [Pres ence] in Blood by Automated countOrdered By: Renny Walton on 12-20-2024 Nucleated RBC Auto Ql (Bld) 0.0 /100{WBC} 0-0.5 [facility] Platelet mean volume [Entiti c volume] in Blood by Automated countOrdered By: Renny Walton on 12-20-2024 Platelet mean volume (Bld) [Entitic vol] 6.7 fL Normal 6.3-10.7 [facility] Comment on above: Performed By: #### P ILLAR CBC, EBS A1C, PILLAR LIPID, PILLAR CMP #### [facility] [address] [place] [address] [place] Platelets [#/volume] in Bloo d by Automated countOrdered By: Renny Walton on 12-20-2024 Platelets (Bld) [#/Vol] 332 10*3/uL Normal 150-450 [facility] Comment on above: Performed By: #### P ILLAR CBC, EBS A1C, PILLAR LIPID, PILLAR CMP #### [facility] [address] Potassium [Moles/volume] in Serum or PlasmaOrdered By: Renny Walton on 12-20-2024 Potassium [Moles/Vol] 4.0 mmol/L Normal 3.5-5.1 [facility] Comment on above: Performed By: #### P ILLAR CBC, EBS A1C, PILLAR LIPID, PILLAR CMP #### [facility] [address] Protein Test strip (U) [Mass /Vol]Ordered By: Cecilio Dumont on 12-20-2024 Protein (U) [Mass/Vol] Negative Negative [facility] Protein [Mass/volume] in Ser um or PlasmaOrdered By: Renny Walton on 12-20-2024 Protein [Mass/Vol] 7.0 g/dL Normal 6.4-8.9 [facility] Comment on above: Performed By: #### P ILLAR CBC, EBS A1C, PILLAR LIPID, PILLAR CMP #### [facility] [address] Serum globulin measurement b y calculation (mass/volume)Ordered By: Renny Walton on 12-20-2024 Globulin (S) [Mass/Vol] 2.8 g/dL [facility] Comment on above: Performed By: #### P ILLAR CBC, EBS A1C, PILLAR LIPID, PILLAR CMP #### [facility] [address] Serum or plasma albumin/glob ulin mass ratioOrdered By: Renny Walton on 12-20-2024 Albumin/Globulin [Mass ratio] 1.5 {ratio} [facility] Comment on above: Performed By: #### P ILLAR CBC, EBS A1C, PILLAR LIPID, PILLAR CMP #### [facility] [address] Serum or plasma anion gap de terminationOrdered By: Renny Walton on 12-20-2024 Anion gap [Moles/Vol] 9.1 mmol/L Normal 6.0-15.0 [facility] Comment on above: Performed By: #### P ILLAR CBC, EBS A1C, PILLAR LIPID, PILLAR CMP #### [facility] [address] Serum or plasma total choles terol/high density lipoprotein (HDL) cholesterol mass ratOrdered By: Renny Walton on 12-20-2024 Cholesterol.total/Chol esterol in HDL [Mass ratio] 3.4 {ratio} Normal <5.0 [facility] Comment on above: Result Comment: PERF ORMED BY: [place] [address] PATHOLOGIST DIRECTOR OF KIDS BASSAM BRADFORD M.D. Performed By: #### P ILLAR CBC, EBS A1C, PILLAR LIPID, PILLAR CMP #### [facility] [address] Sodium [Moles/volume] in Ser um or PlasmaOrdered By: Renny Walton on 12-20-2024 Sodium [Moles/Vol] 140 mmol/L Normal 136-145 [facility] Comment on above: Performed By: #### P ILLAR CBC, EBS A1C, PILLAR LIPID, PILLAR CMP #### [facility] [address] Specific gravity Test strip (U) [Rel density]Ordered By: Cecilio Dumont on 12-20-2024 Specific gravity (U) [Rel density] 1.020 1.001-1.03 0 [facility] Triglyceride [Mass/volume] i n Serum or PlasmaOrdered By: Renny Walton on 12-20-2024 Triglyceride [Mass/Vol] 178 mg/dL High 0-149 [facility] Comment on above: TRIG ATP III CLASSIF ICATIONTRIG less than 150 mg/dL NormalTRIG 150-199 mg/dL Borderline highTRIG 200-500 mg/dL High TRIG greater than 500 mg/dL Very highStandard traceable to the Center for Disease Conrtrol and Prevention (CDC) test method. Urea nitrogen [Mass/volume] in Serum or PlasmaOrdered By: Renny Walton on 12-20-2024 Urea nitrogen [Mass/Vol] 20 mg/dL Normal 7-25 [facility] Comment on above: Performed By: #### P ILLAR CBC, EBS A1C, PILLAR LIPID, PILLAR CMP #### [facility] [address] Urine Cultureon 12-20-2024 Bacteria identified Cx Nom (U) Urine Culture Results >100,000 col/ml Mixed Bacterial Skin Contaminants 2 Days PERFORMED BY: [place] [address] PATHOLOGIST DIRECTOR OF KIDS BASSAM BRADFORD M.D. Normal [facility] Comment on above: Performed By: #### C UU, ADDONUAPLUS ####[facility] [id number] Urine cultureOrdered By: Yg Dumont on 12-20-2024 Bacteria identified Cx Nom (U) [facility] Urobilinogen Test strip (U) [Mass/Vol]Ordered By: Cecilio Dumont on 12-20-2024 Urobilinogen (U) [Mass/Vol] Normal mg/dL Normal [facility] pH of Urine by Test stripOrd ered By: Cecilio Dumont on 12-20-2024 pH (U) 5.0 [pH] Normal 5.0-9.0 [facility] Comment on above: Order Comment: Name Collection Type:: Clean-Voided Midstream Performed By: #### C UU, ADDONUAPLUS #### [facility] [address] Ambulatory Visit Summaryon 0 12-03-2024 Ambulatory [...] signed up for this yet, please contact [employer] at [phone] to get signed up today. Language Information Language assistance services are available as needed. Normal [facility] Appearance of UrineOrdered B y: Cecilio Dumont on 12-03-2024 Appearance (U) Clear Normal Clear [facility] Comment on above: Order Comment: Name Collection Type:: Clean-Voided Midstream Performed By: #### A DDONUAPLUS, CUU #### [place] [address] [place] Bacteria [Presence] in Urine by AutomatedOrdered By: Cecilio Dumont on 12-03-2024 Bacteria Auto Ql (U) None seen [HPF] None Seen [facility] Bilirubin Test strip Ql (U)O rdered By: Cecilio Dumont on 12-03-2024 Bilirubin Ql (U) Negative Negative [facility] Color of Urine by AutoOrdere d By: Cecilio Dumont on 12-03-2024 Color (U) Light-yellow Normal Yellow [facility] Comment on above: Order Comment: Name Collection Type:: Clean-Voided Midstream Performed By: #### A DDONUAPLUS, CUU #### [facility] [address] [place], [place] [id number] [place] Dipstick and Microscopicon 0 12-03-2024 Bacteria,Urine None Seen Normal None Seen [facility] Comment on above: Order Comment: Name Collection Type:: Clean-Voided Midstream Performed By: #### A DDONUAPLUS, CUU #### [facility] [address] [place] [address] [place] Bilirubin,Urine Negative Normal Negative [facility] Comment on above: Order Comment: Name Collection Type:: Clean-Voided Midstream Performed By: #### A DDONUAPLUS, CUU #### [facility] [address] [place] [id number] [place] Glucose Ql (U) Normal Normal Normal [facility] Comment on above: Order Comment: Name Collection Type:: Clean-Voided Midstream Performed By: #### A DDONUAPLUS, CUU #### [facility] [address] [place] [id number] [place] Hyaline Casts,Urine None Normal 0-8 [facility] Comment on above: Order Comment: Name Collection Type:: Clean-Voided Midstream Result Comment: PERF ORMED BY: [place] [address] PATHOLOGIST DIRECTOR OF KIDS BASSAM BRADFORD M.D. Performed By: #### A DDONUAPLUS, CUU #### [place] [id number] [place] Nitrite,Urine Negative Normal Negative [facility] Comment on above: Order Comment: Name Collection Type:: Clean-Voided Midstream Performed By: #### A DDONUAPLUS, CUU #### [place] [id number] [place] Occult Blood,Urine Negative Normal Negative [facility] Comment on above: Order Comment: Name Collection Type:: Clean-Voided Midstream Performed By: #### A DDONUAPLUS, CUU #### [place] [address] [place] Protein,Urine Negative Normal Negative [facility] Comment on above: Order Comment: Name Collection Type:: Clean-Voided Midstream Performed By: #### A DDONUAPLUS, CUU #### [facility] [address] [place] [id number] [place] RBC,Urine None Seen Normal 0-4 [facility] Comment on above: Order Comment: Name Collection Type:: Clean-Voided Midstream Performed By: #### A DDONUAPLUS, CUU #### [facility] [address] Specificy [place],Urine 1.011 Normal 1.001-1.03 0 [facility] Comment on above: Order Comment: Name Collection Type:: Clean-Voided Midstream Performed By: #### A DDONUAPLUS, CUU #### [address] Squamous Epithelial Cell,Urine 1-2 Normal 0-2 [facility] Comment on above: Order Comment: Name Collection Type:: Clean-Voided Midstream Performed By: #### A DDONUAPLUS, CUU #### [address] Urobilinogen,Urine Normal Normal Normal [facility] Comment on above: Order Comment: Name Collection Type:: Clean-Voided Midstream Performed By: #### A DDONUAPLUS, CUU #### [address] WBC,Urine 1-2 Normal 0-4 [facility] Comment on above: Order Comment: Name Collection Type:: Clean-Voided Midstream Performed By: #### A DDONUAPLUS, CUU #### [address] Epithelial cells.squamous [# /area] in Urine sediment by Automated countOrdered By: Cecilio Dumont on 12-03-2024 Epithelial cells.squamous Auto (Urine sed) [#/Area] 1-2 [HPF] 0-2 [facility] Erythrocytes [#/area] in Uri ne sediment by Automated countOrdered By: Cecilio Dumont on 12-03-2024 RBC Auto (Urine sed) [#/Area] None seen [HPF] 0-4 [facility] Glucose [Mass/volume] in Uri ne by Test stripOrdered By: Cecilio Dumont on 12-03-2024 Glucose Test strip (U) [Mass/Vol] Normal mg/dL Normal [facility] Hemoglobin Test strip Ql (U) Ordered By: Cecilio Dumont on 12-03-2024 Hemoglobin Ql (U) Negative Negative [facility] Hyaline casts [#/area] in Ur ine sediment by Automated countOrdered By: Cecilio Dumont on 12-03-2024 Hyaline casts Auto (Urine sed) [#/Area] None [LPF] 0-8 [facility] Ketones [Presence] in Urine by Test stripOrdered By: Cecilio Dumont on 12-03-2024 Ketones Ql (U) Negative Normal Negative [facility] Comment on above: Order Comment: Name Collection Type:: Clean-Voided Midstream Performed By: #### A DDONUAPLUS, CUU #### [place] [address] [place] Leukocyte esterase [Presence ] in Urine by Test stripOrdered By: Cecilio Dumont on 12-03-2024 Leukocyte esterase Test strip Ql (U) Negative Normal Negative [facility] Comment on above: Order Comment: Name Collection Type:: Clean-Voided Midstream Performed By: #### A DDONUAPLUS, CUU #### [facility] [address] [place] [address] [place] Leukocytes [#/area] in Urine sediment by Automated countOrdered By: Cecilio Dumont on 12-03-2024 WBC Auto (Urine sed) [#/Area] 1-2 [HPF] 0-4 [facility] Nitrite Test strip Ql (U)Ord ered By: Cecilio Dumont on 12-03-2024 Nitrite Ql (U) Negative Negative [facility] Protein Test strip (U) [Mass /Vol]Ordered By: Cecilio Dumont on 12-03-2024 Protein (U) [Mass/Vol] Negative Negative [facility] Specific gravity Test strip (U) [Rel density]Ordered By: Cecilio Dumont on 12-03-2024 Specific gravity (U) [Rel density] 1.011 1.001-1.03 0 [facility] Urine Cultureon 12-03-2024 Bacteria identified Cx Nom (U) >100,000 colonies/ml mixed bacterial skin contaminants 2 Days PERFORMED BY: [place] [address] PATHOLOGIST DIRECTOR OF KIDS BASSAM BRADFORD M.D. Normal [facility] Comment on above: Performed By: #### A DDONUAPLUS, CUU #### [facility] [address] [place] [address] Urine cultureOrdered By: Yg Dumont on 12-03-2024 Bacteria identified Cx Nom (U) 2 Days [facility] Urobilinogen Test strip (U) [Mass/Vol]Ordered By: Cecilio Dumont on 12-03-2024 Urobilinogen (U) [Mass/Vol] Normal mg/dL Normal [facility] pH of Urine by Test stripOrd ered By: Cecilio Dumont on 12-03-2024 pH (U) 5.5 [pH] Normal 5.0-9.0 [facility] Comment on above: Order Comment: Name Collection Type:: Clean-Voided Midstream Performed By: #### A DDONUAPLUS, CUU #### [facility] [address] [place] [address] US abdomen limitedon 025 US abdomen limited [facility] [address] [place] [address] [place] [address] Ultrasound Report Signed Patient: Nancy Hooper MR#: [id number] 68 : 1960 Acct:[id number] Age/Sex: 64 / F ADM Date: 11/23/24 Loc: Room: Type: [facility] Attending Dr: Cecilio Dumont MD Ordering Provider: [...] Degroot M.D. 11/23/2024 5:13 PM Dictation Location: [place] [address] Tech: Ramila Su Transcribed By: ADAM 11/23/241712 Dictated By: Shai Degroot II, MD 11/23/241711 Signed By: 11/23/241712 Normal [facility] Alanine aminotransferase [En zymatic activity/volume] in Serum or PlasmaOrdered By: Cecilio Dumont on 11-21-2024 ALT [Catalytic activity/Vol] 15 U/L Normal 7-52 [facility] Comment on above: Performed By: #### A MY, CMP, CBC, LIPASE ####[facility] [id number] [place] [address] [place] Albumin [Mass/volume] in Ser um or Plasma by Bromocresol green (BCG) dye binding methoOrdered By: Cecilio Dumont on 11-21-2024 Albumin BCG dye [Mass/Vol] 4.1 g/dL 3.5-5.7 [facility] Alkaline phosphatase [Enzyma tic activity/volume] in Serum or PlasmaOrdered By: Cecilio Dumont on 11-21-2024 ALP [Catalytic activity/Vol] 57 U/L Normal 34-104 [facility] Comment on above: Performed By: #### A MY, CMP, CBC, LIPASE ####[facility] [place] [address] [place] Amylase [Enzymatic activity/ volume] in Serum or PlasmaOrdered By: Cecilio Dumont on 11-21-2024 Amylase [Catalytic activity/Vol] 34 U/L Normal 29-103 [facility] Comment on above: Performed By: #### A MY, CMP, CBC, LIPASE ####[facility] [address] [place] [address] [place] Aspartate aminotransferase [ Enzymatic activity/volume] in Serum or PlasmaOrdered By: Cecilio Dumont on 11-21-2024 AST [Catalytic activity/Vol] 12 U/L Low 13-39 [facility] Comment on above: Performed By: #### A MY, CMP, CBC, LIPASE ####[address] Basophils [#/volume] in Bloo d by Automated countOrdered By: Cecilio Dumont on 11-21-2024 Basophils (Bld) [#/Vol] 0.1 10*3/uL Normal 0.0-0.2 [facility] Comment on above: Result Comment: PERF ORMED BY: [facility] [address] [place] [id number] PATHOLOGIST DIRECTOR OF KIDS BASSAM BRADFORD M.D. Performed By: #### A MY, CMP, CBC, LIPASE ####[address] Basophils/100 leukocytes in Blood by Automated countOrdered By: Cecilio Dumont on 11-21-2024 Basophils/100 WBC (Bld) 1.0 % Normal . [facility] Comment on above: Performed By: #### A MY, CMP, CBC, LIPASE ####[address] Bilirubin.total [Mass/volume ] in Serum or PlasmaOrdered By: Cecilio Dumont on 11-21-2024 Bilirubin [Mass/Vol] 0.3 mg/dL Normal 0.3-1.0 [facility] Comment on above: Performed By: #### A MY, CMP, CBC, LIPASE ####[place] [id number] [facility] Calcium [Mass/volume] in Ser um or PlasmaOrdered By: Cecilio Dumont on 11-21-2024 Calcium [Mass/Vol] 9.2 mg/dL Normal 8.6-10.3 [facility] Comment on above: Performed By: #### A MY, CMP, CBC, LIPASE ####[address] Carbon dioxide, total [Moles /volume] in Serum or PlasmaOrdered By: Cecilio Cheikh on 11-21-2024 CO2 [Moles/Vol] 29.6 mmol/L Normal 21.0-31.0 [facility] Comment on above: Performed By: #### A MY, CMP, CBC, LIPASE ####[address] Chloride [Moles/volume] in S genaro or PlasmaOrdered By: Cecilio Dumont on 11-21-2024 Chloride [Moles/Vol] 107 mmol/L Normal 98-107 [facility] Comment on above: Performed By: #### A MY, CMP, CBC, LIPASE ####[address] Complete Blood Count Auto Di ffon 11-21-2024 Mean Corpuscular HGB Conc 33.4 g/dL Normal 32.0-35.0 [facility] Comment on above: Performed By: #### A MY, CMP, CBC, LIPASE ####[address] NRBC% 0.1 /100{WBC} Normal 0-0.5 [facility] Comment on above: Performed By: #### A MY, CMP, CBC, LIPASE ####[address] White Blood Count 7.7 [CFU]/mL Normal 3.8-11.6 [facility] Comment on above: Performed By: #### A MY, CMP, CBC, LIPASE ####[place] [id number] [facility] Comprehensive Metabolic Pane eliezer 11-21-2024 Albumin [Mass/Vol] 4.1 g/dL Normal 3.5-5.7 [facility] Comment on above: Performed By: #### A MY, CMP, CBC, LIPASE ####[place] [id number] [facility] GFR/1.73 sq M.predicted MDRD (S/P/Bld) [Vol rate/Area] mL/min/{1.73_m2} Normal [facility] Comment on above: Performed By: #### A MY, CMP, CBC, LIPASE ####[address] Creatinine [Mass/volume] in Serum or PlasmaOrdered By: Cecilio Dumont on 11-21-2024 Creatinine [Mass/Vol] 0.58 mg/dL Low 0.60-1.20 [facility] Comment on above: Performed By: #### A MY, CMP, CBC, LIPASE ####[address] Eosinophils [#/volume] in Bl ood by Automated countOrdered By: Cecilio Dumont on 11-21-2024 Eosinophils (Bld) [#/Vol] 0.1 10*3/uL Normal 0.0-0.45 [facility] Comment on above: Performed By: #### A MY, CMP, CBC, LIPASE ####[address] Eosinophils/100 leukocytes i n Blood by Automated countOrdered By: Cecilio Dumont on 11-21-2024 Eosinophils/100 WBC (Bld) 1.2 % Normal . [facility] Comment on above: Performed By: #### A MY, CMP, CBC, LIPASE ####[address] Erythrocyte distribution wid th [Ratio] by Automated countOrdered By: Cecilio Dumont on 11-21-2024 Erythrocyte distribution width (RBC) [Ratio] 13.5 % Normal 11.9-15.3 [facility] Comment on above: Performed By: #### A MY, CMP, CBC, LIPASE ####[address] Erythrocytes [#/volume] in B lood by Automated countOrdered By: Cecilio Dumont on 11-21-2024 RBC (Bld) [#/Vol] 4.72 10*6/uL Normal 3.60-5.00 [facility] Comment on above: Performed By: #### A MY, CMP, CBC, LIPASE ####[place] [id number] [facility] Glucose [Mass/volume] in Ser um or PlasmaOrdered By: Cecilio Dumont on 11-21-2024 Glucose [Mass/Vol] 118 mg/dL High 70-100 [facility] Comment on above: ADA recommended refe rence rangeRandom Glucose Reference Range is dependent on time and content of last meal. Glucose of more than 200 mg/dL in a nonstressed, ambulatory subject supports the diagnosis of Diabetes Mellitus. Result Comment: [place] om Glucose Reference Range is dependent on time and content of last meal. Glucose of more than 200 mg/dL in a nonstressed, ambulatory subject supports the diagnosis of Diabetes Mellitus. ADA recommended reference range Performed By: #### A MY, CMP, CBC, LIPASE ####[address] Hematocrit [Volume Fraction] of Blood by Automated countOrdered By: Cecilio Dumont on 11-21-2024 Hematocrit (Bld) [Volume fraction] 42.8 % Normal 34.0-46.4 [facility] Comment on above: Performed By: #### A MY, CMP, CBC, LIPASE ####[address] Hemoglobin [Mass/volume] in BloodOrdered By: Cecilio Dumont on 11-21-2024 Hemoglobin (Bld) [Mass/Vol] 14.3 g/dL Normal 11.8-15.4 [facility] Comment on above: Performed By: #### A MY, CMP, CBC, LIPASE ####[place] [id number] [facility] Leukocytes [#/volume] correc rani for nucleated erythrocytes in Blood by Automated counOrdered By: Cecilio Dumont on 11-21-2024 WBC corrected for nucl RBC Auto (Bld) [#/Vol] 7.7 10*3/uL 3.8-11.6 [facility] Leukocytes [#/volume] in Blo od by Automated countOrdered By: Cecilio Dumont on 11-21-2024 WBC (Bld) [#/Vol] 7.7 10*3/uL Normal 3.8-11.6 [facility] Comment on above: Performed By: #### A MY, CMP, CBC, LIPASE ####[address] Lipase [Enzymatic activity/v olume] in Serum or PlasmaOrdered By: Cecilio Dumont on 11-21-2024 Lipase [Catalytic activity/Vol] 43.0 U/L Normal 11.0-82.0 [facility] Comment on above: Result Comment: PERF ORMED BY: [facility] [address] [place] [address] PATHOLOGIST DIRECTOR OF KIDS BASSAM BRADFORD M.D. Performed By: #### A MY, CMP, CBC, LIPASE ####[address] Lymphocytes [#/volume] in Bl ood by Automated countOrdered By: Cecilio Dumont on 11-21-2024 Lymphocytes (Bld) [#/Vol] 2.1 10*3/uL Normal 1.00-4.8 [facility] Comment on above: Performed By: #### A MY, CMP, CBC, LIPASE ####[address] Lymphocytes/100 leukocytes i n Blood by Automated countOrdered By: Cecilio Dumont on 11-21-2024 Lymphocytes/100 WBC (Bld) 27.0 % Normal . [facility] Comment on above: Performed By: #### A MY, CMP, CBC, LIPASE ####[address] MCH [Entitic mass] by Automa rani countOrdered By: Cecilio Dumont on 11-21-2024 MCH (RBC) [Entitic mass] 30.2 pg Normal 24.7-34.3 [facility] Comment on above: Performed By: #### A MY, CMP, CBC, LIPASE ####[address] MCHC Auto (RBC) [Mass/Vol]Or dered By: Cecilio Dumont on 11-21-2024 MCHC (RBC) [Mass/Vol] 33.4 g/dL 32.0-35.0 [facility] MCV [Entitic volume] by Auto mated countOrdered By: Cecilio Reedangelito on 11-21-2024 MCV (RBC) [Entitic vol] 90.7 fL Normal 80-100 [facility] Comment on above: Performed By: #### A MY, CMP, CBC, LIPASE ####[address] Monocytes [#/volume] in Bloo d by Automated countOrdered By: Cecilio Dumont on 11-21-2024 Monocytes (Bld) [#/Vol] 0.7 10*3/uL Normal 0.0-0.8 [facility] Comment on above: Performed By: #### A MY, CMP, CBC, LIPASE ####[address] Monocytes/100 leukocytes in Blood by Automated countOrdered By: Cecilio Dumont on 11-21-2024 Monocytes/100 WBC (Bld) 9.0 % Normal . [facility] Comment on above: Performed By: #### A MY, CMP, CBC, LIPASE ####[address] Neutrophils [#/volume] in Bl ood by Automated countOrdered By: Cecilio Dumont on 11-21-2024 Neutrophils (Bld) [#/Vol] 4.8 10*3/uL Normal 1.8-7.7 [facility] Comment on above: Performed By: #### A MY, CMP, CBC, LIPASE ####[address] Neutrophils/100 leukocytes i n Blood by Automated countOrdered By: Cecilio Dumont on 11-21-2024 Neutrophils/100 WBC (Bld) 61.8 % Normal . [facility] Comment on above: Performed By: #### A MY, CMP, CBC, LIPASE ####[address] No Panel InformationOrdered By: Cecilio Dumont on 11-21-2024 Estimated GFR (CKD-EPI) > 60.0 mL/Min [facility] Creatinine Clearance (Chem N/A [facility] Nucleated erythrocytes [Pres ence] in Blood by Automated countOrdered By: Cecilio Dumont on 11-21-2024 Nucleated RBC Auto Ql (Bld) 0.1 /100{WBC} 0-0.5 [facility] Platelet mean volume [Entiti c volume] in Blood by Automated countOrdered By: Cecilio Dumont on 11-21-2024 Platelet mean volume (Bld) [Entitic vol] 7.1 fL Normal 6.3-10.7 [facility] Comment on above: Performed By: #### A MY, CMP, CBC, LIPASE ####[place] [id number] [address] Platelets [#/volume] in Bloo d by Automated countOrdered By: Cecilio Dumont on 11-21-2024 Platelets (Bld) [#/Vol] 334 10*3/uL Normal 150-450 [facility] Comment on above: Performed By: #### A MY, CMP, CBC, LIPASE ####[address] Potassium [Moles/volume] in Serum or PlasmaOrdered By: Cecilio Dumont on 11-21-2024 Potassium [Moles/Vol] 4.2 mmol/L Normal 3.5-5.1 [facility] Comment on above: Performed By: #### A MY, CMP, CBC, LIPASE ####[address] Protein [Mass/volume] in Ser um or PlasmaOrdered By: Cecilio Dumont on 11-21-2024 Protein [Mass/Vol] 7.0 g/dL Normal 6.4-8.9 [facility] Comment on above: Performed By: #### A MY, CMP, CBC, LIPASE ####[place] [id number] [facility] Serum globulin measurement b y calculation (mass/volume)Ordered By: Cecilio Dumont on 11-21-2024 Globulin (S) [Mass/Vol] 2.9 g/dL [facility] Comment on above: Performed By: #### A MY, CMP, CBC, LIPASE ####[address] Serum or plasma albumin/glob ulin mass ratioOrdered By: Cecilio Dumont on 11-21-2024 Albumin/Globulin [Mass ratio] 1.4 {ratio} [facility] Comment on above: Performed By: #### A MY, CMP, CBC, LIPASE ####[address] Serum or plasma anion gap de terminationOrdered By: Cecilio Dumont on 11-21-2024 Anion gap [Moles/Vol] 10.6 mmol/L Normal 6.0-15.0 [facility] Comment on above: Performed By: #### A MY, CMP, CBC, LIPASE ####[address] Sodium [Moles/volume] in Ser um or PlasmaOrdered By: Cecilio Dumont on 11-21-2024 Sodium [Moles/Vol] 143 mmol/L Normal 136-145 [facility] Comment on above: Performed By: #### A MY, CMP, CBC, LIPASE ####[address] Urea nitrogen [Mass/volume] in Serum or PlasmaOrdered By: Cecilio Dumont on 11-21-2024 Urea nitrogen [Mass/Vol] 25 mg/dL Normal 7-25 [facility] Comment on above: Performed By: #### A MY, CMP, CBC, LIPASE ####[address] foot LT wo conon 10-17-19 CT foot LT wo con [facility] [address] [place] [address] CT Scan Report Signed Patient: Nancy Hooper MR#: [id number] 68 : 1960 Acct:[id number] Age/Sex: 64 / F ADM Date: 10/16/24 Loc: CT Room: Type: [facility] Attending Dr: Cecilio Dumont MD Copies to: Cecilio Dumont MD Ordering Provider: Cecilio Dumont MD Date of Service: 10/16/24 CT/CT foot LT wo con: M79.672 ([id number]) CT/CT ankle LT wo con: M79.672 CT [...] Degroot M.D. 10/16/2024 4:27 PM Dictation Location: [place] [address] Transcribed By: ADAM 10/16/24 1627 Dictated By: Shai Degroot II, MD 10/16/24 1601 Signed By: 10/16/24 1627 Normal [facility] XR foot LT 2Von 09-27-2024 XR foot LT 2V [facility] Main [place] [id number] XRay Report Signed Patient: Nancy Hooper MR#: [id number] 68 : 1960 Acct:[id number] Age/Sex: 64 / F ADM Date: 09/27/24 Loc: XD Room: Type: [facility] Attending Dr: Cecilio Dumont MD Copies to: [...] 09/27/2024 4:09 PM Dictation Location: [place] [address] Transcribed By: [facility] 09/27/24 1609 Dictated By: Juwan Sanchez DO 09/27/24 1608 Signed By: 09/27/24 1609 Normal [facility] Basophils Auto (Bld) [#/Vol] Ordered By: Renny [place] on 11-13-2023 Basophils (Bld) [#/Vol] 0.1 10*3/uL 0.0-0.2 [facility] Basophils/100 WBC Auto (Bld) Ordered By: Renny [place] on 11-13-2023 Basophils/100 WBC (Bld) 1.1 % . [facility] Calcium [Mass/volume] in Ser um or PlasmaOrdered By: Renny [place] on 11-13-2023 Calcium [Mass/Vol] 9.1 mg/dL 8.6-10.3 [facility] Carbon dioxide, total [Moles /volume] in Serum or PlasmaOrdered By: Renny [place] on 11-13-2023 CO2 [Moles/Vol] 28.1 mmol/L 21.0-31.0 [facility] Chloride [Moles/volume] in S genaro or PlasmaOrdered By: Renny [place] on 11-13-2023 Chloride [Moles/Vol] 107 mmol/L 98-107 [facility] Cholesterol [Mass/volume] in Serum or PlasmaOrdered By: Renny Walton on 11-13-2023 Cholesterol [Mass/Vol] 174 mg/dL 140-200 [facility] Comment on above: Chol less than 200 m g/dl low riskChol 201-239 mg/dl borderline riskChol 240 mg/dl and greater high risk Cholesterol in LDL Calc [Mas s/Vol]Ordered By: Renny Walton on 11-13-2023 Cholesterol in LDL [Mass/Vol] 98 mg/dL 0-100 [facility] Comment on above: LDL ATP III CLASSIFI CATIONLDL less than 100 mg/dL OptimalLDL 100-129 mg/dL Near or above optimalLDL 130-159 mg/dL Borderline highLDL 160-189 mg/dL HighLDL greater than 189 mg/dL Very high Cholesterol in VLDL Calc [Ma ss/Vol]Ordered By: Renny Walton on 11-13-2023 Cholesterol in VLDL [Mass/Vol] 24 mg/dL [facility] Creatinine [Mass/volume] in Serum or PlasmaOrdered By: Renny Walton on 11-13-2023 Creatinine [Mass/Vol] 0.62 mg/dL 0.60-1.20 [facility] Eosinophils Auto (Bld) [#/Vo l]Ordered By: Renny Walton on 11-13-2023 Eosinophils (Bld) [#/Vol] 0.1 10*3/uL 0.0-0.45 [facility] Eosinophils/100 WBC Auto (Bl d)Ordered By: Renny Walton on 11-13-2023 Eosinophils/100 WBC (Bld) 2.3 % . [facility] Erythrocyte distribution wid th Auto (RBC) [Ratio]Ordered By: Renny Walton on 11-13-2023 Erythrocyte distribution width (RBC) [Ratio] 13.6 % 11.9-15.3 [facility] Glucose [Mass/volume] in Ser um or PlasmaOrdered By: Renny Walton on 11-13-2023 Glucose [Mass/Vol] 103 mg/dL High 70-100 [facility] Comment on above: ADA recommended refe rence range Glucose mean value [Mass/vol ume] in Blood Estimated from glycated hemoglobinOrdered By: Renny Walton on 11-13-2023 Average glucose Estimated from glycated hemoglobin (Bld) [Mass/Vol] 111 mg/dL [facility] Hematocrit Auto (Bld) [Volum e fraction]Ordered By: Renny Walton on 11-13-2023 Hematocrit (Bld) [Volume fraction] 42.1 % 34.0-46.4 [facility] Hemoglobin [Mass/volume] in BloodOrdered By: Renny Walton on 11-13-2023 Hemoglobin (Bld) [Mass/Vol] 13.9 g/dL 11.8-15.4 [facility] Laboratory - Hematology and Cell countsOrdered By: Renny Walton on 11-13-2023 HbA1c (Bld) [Mass fraction] 5.5 % 4.3-5.6 [facility] Comment on above: Increased risk for d iabetes: 5.7 - 6.4diabetes: >6.4glycemic control for adults with diabetes: <7.0 Leukocytes [#/volume] correc rani for nucleated erythrocytes in Blood by Automated counOrdered By: Renny Walton on 11-13-2023 WBC corrected for nucl RBC Auto (Bld) [#/Vol] 5.8 10*3/uL 3.8-11.6 [facility] Lymphocytes Auto (Bld) [#/Vo l]Ordered By: Renny Walton on 11-13-2023 Lymphocytes (Bld) [#/Vol] 2.0 10*3/uL 1.00-4.8 [facility] Lymphocytes/100 WBC Auto (Bl d)Ordered By: Renny Walton on 11-13-2023 Lymphocytes/100 WBC (Bld) 34.5 % . [facility] MCH Auto (RBC) [Entitic mass ]Ordered By: Renny Walton on 11-13-2023 MCH (RBC) [Entitic mass] 29.7 pg 24.7-34.3 [facility] MCHC Auto (RBC) [Mass/Vol]Or dered By: Renny Walton on 11-13-2023 MCHC (RBC) [Mass/Vol] 32.9 g/dL 32.0-35.0 [facility] MCV Auto (RBC) [Entitic vol] Ordered By: Renny Walton on 11-13-2023 MCV (RBC) [Entitic vol] 90.2 fL 80-100 [facility] Monocytes Auto (Bld) [#/Vol] Ordered By: Renny Walton on 11-13-2023 Monocytes (Bld) [#/Vol] 0.5 10*3/uL 0.0-0.8 [facility] Monocytes/100 WBC Auto (Bld) Ordered By: Renny Walton on 11-13-2023 Monocytes/100 WBC (Bld) 8.0 % . [facility] Neutrophils Auto (Bld) [#/Vo l]Ordered By: Renny Walton on 11-13-2023 Neutrophils (Bld) [#/Vol] 3.1 10*3/uL 1.8-7.7 [facility] [facility] Neutrophils/100 WBC Auto (Bl d)Ordered By: Renny Walton on 11-13-2023 Neutrophils/100 WBC (Bld) 54.1 % . [facility] No Panel InformationOrdered By: Renny Walton on 11-13-2023 Estimated GFR (CKD-EPI) > 60.0 mL/Min [facility] Creatinine Clearance (Chem N/A [facility] Nucleated erythrocytes [Pres ence] in Blood by Automated countOrdered By: Renny Walton on 11-13-2023 Nucleated RBC Auto Ql (Bld) 0.1 /100{WBC} 0-0.5 [facility] Platelet mean volume Auto (B ld) [Entitic vol]Ordered By: Renny Walton on 11-13-2023 Platelet mean volume (Bld) [Entitic vol] 7.0 fL 6.3-10.7 [facility] Platelets Auto (Bld) [#/Vol] Ordered By: Renny Walton on 11-13-2023 Platelets (Bld) [#/Vol] 276 10*3/uL 150-450 [facility] Potassium [Moles/volume] in Serum or PlasmaOrdered By: Renny Walton on 11-13-2023 Potassium [Moles/Vol] 4.1 mmol/L 3.5-5.1 [facility] RBC Auto (Bld) [#/Vol]Ordere d By: Renny Walton on 11-13-2023 RBC (Bld) [#/Vol] 4.67 10*6/uL 3.60-5.00 [facility] Serum or plasma anion gap de terminationOrdered By: Renny Walton on 11-13-2023 Anion gap [Moles/Vol] 10.0 mmol/L 6.0-15.0 [facility] Serum or plasma high density lipoprotein (HDL) cholesterol measurementOrdered By: Renny Walton on 11-13-2023 Cholesterol in HDL [Mass/Vol] 51 mg/dL 23-92 [facility] Comment on above: HDL CHOL ATP-III CLA SSIFICATION Cardiovascular RiskHDL > or equal to 60 mg/dL LOWHDL < 40 mg/dL HIGH Serum or plasma total choles terol/high density lipoprotein (HDL) cholesterol mass ratOrdered By: Renny Walton on 11-13-2023 Cholesterol.total/Chol esterol in HDL [Mass ratio] 3.4 {ratio} <5.0 [facility] Sodium [Moles/volume] in Ser um or PlasmaOrdered By: Renny Walton on 11-13-2023 Sodium [Moles/Vol] 141 mmol/L 136-145 [facility] Thyrotropin [Units/volume] i n Serum or PlasmaOrdered By: Renny Walton on 11-13-2023 TSH Qn 1.75 m[IU]/L 0.45-5.33 [facility] Triglyceride [Mass/volume] i n Serum or PlasmaOrdered By: Renny Walton on 11-13-2023 Triglyceride [Mass/Vol] 123 mg/dL 0-149 [facility] Comment on above: TRIG ATP III CLASSIF ICATIONTRIG less than 150 mg/dL NormalTRIG 150-199 mg/dL Borderline highTRIG 200-500 mg/dL High TRIG greater than 500 mg/dL Very highStandard traceable to the Center for Disease Conrtrol and Prevention (CDC) test method. Urea nitrogen [Mass/volume] in Serum or PlasmaOrdered By: Renny Walton on 11-13-2023 Urea nitrogen [Mass/Vol] 24 mg/dL 12-06 [facility] WBC Auto (Bld) [#/Vol]Ordere d By: Renny Walton on 11-13-2023 WBC (Bld) [#/Vol] 5.8 10*3/uL 3.8-11.6 [facility] A1C HEMOGLOBINon 05-31-2023 HbA1c (Bld) [Mass fraction] 5.6 % [employer] Other HbA1c (Bld) [Mass fraction]o n 05-31-2023 A1C HEMOGLOBIN [employer] Other CT ANGIO CORONARY ART WITH H [...] STRUCTURES ARE THE SOLE RESPONSIBILITY OF THE WHITE METAL CASTER SUBMITTING THE ORIGINAL REPORT (NOT THIS ADDENDUM) Signed by: Shai Tolentino 03/14/2023 1:47 PM -------- ORIGINAL REPORT -------- Dictation workstation: [id number] Interpreted By: Anthony Yo, STUDY: CT ANGIO CORONARY ART WITH HEARTFLOW IF SCORE >30%; 03/14/2023 12:00 pm INDICATION: Signs/Symptoms:r07.9. COMPARISON: None. ACCESSION NUMBER(S): [id number] ORDERING CLINICIAN: KAJAL MCCAULEY TECHNIQUE: Using multi-detector [...] (more content not included)... Normal [facility] Comment on above: Order Comment: Order in [...] STRUCTURES ARE THE SOLE RESPONSIBILITY OF THE WHITE METAL CASTER SUBMITTING THE ORIGINAL REPORT (NOT THIS ADDENDUM) Signed by: Shai Tolentino 02/17/2023 2:28 PM -------- ORIGINAL REPORT -------- Dictation workstation: [id number] Interpreted By: Anthony Yo, STUDY: CT CARDIAC SCORING WO IV CONTRAST; 02/14/2023 9:00 am INDICATION: Signs/Symptoms:chest pain. COMPARISON: None. ACCESSION NUMBER(S): [id number] ORDERING CLINICIAN: ANNELIESE GARCIA TECHNIQUE: Using prospective [...] coronary heart disease events. According to the [employer] Clinical Expert Consensus [...] modify other non-lipid coronary risk factors. Reference: [place] P et al. Circulation. 2007; 115:402-426 Reading Manager Latin: Dr. Anthony Yo, Date: 02/14/2023 10:23 am Signed by: Anthony Yo 02/14/2023 10:23 AM Dictation workstation: [id number] [facility] Calcium [Mass/volume] in Ser um or PlasmaOrdered By: Nabil Baker on 01-04-2023 Calcium [Mass/Vol] 9.1 mg/dL 8.6-10.3 [facility] Carbon dioxide, total [Moles /volume] in Serum or PlasmaOrdered By: Nabil Baker on 01-04-2023 CO2 [Moles/Vol] 25.7 mmol/L 21.0-31.0 [facility] Chloride [Moles/volume] in S genaro or PlasmaOrdered By: Nabil Baker on 01-04-2023 Chloride [Moles/Vol] 108 mmol/L 98-107 [facility] Cholesterol [Mass/volume] in Serum or PlasmaOrdered By: Nabil Baker on 01-04-2023 Cholesterol [Mass/Vol] 122 mg/dL 140-200 [facility] Comment on above: Chol less than 200 m g/dl low riskChol 201-239 mg/dl borderline riskChol 240 mg/dl and greater high risk Cholesterol in LDL Calc [Mas s/Vol]Ordered By: Nabil Baker on 01-04-2023 Cholesterol in LDL [Mass/Vol] 67 mg/dL 0-100 [facility] Comment on above: LDL ATP III CLASSIFI CATIONLDL less than 100 mg/dL OptimalLDL 100-129 mg/dL Near or above optimalLDL 130-159 mg/dL Borderline highLDL 160-189 mg/dL HighLDL greater than 189 mg/dL Very high Cholesterol in VLDL Calc [Ma ss/Vol]Ordered By: Nabil Baker on 01-04-2023 Cholesterol in VLDL [Mass/Vol] 15 mg/dL [facility] Creatinine [Mass/volume] in Serum or PlasmaOrdered By: Nabil Baker on 01-04-2023 Creatinine [Mass/Vol] 0.83 mg/dL 0.60-1.20 [facility] Glucose [Mass/volume] in Ser um or PlasmaOrdered By: Nabil Baker on 01-04-2023 Glucose [Mass/Vol] 101 mg/dL 70-100 [facility] Comment on above: ADA recommended refe rence rangeRandom Glucose Reference Range is dependent on time and content of last meal. Glucose of more than 200 mg/dL in a nonstressed, ambulatory subject supports the diagnosis of Diabetes Mellitus. Magnesium [Mass/volume] in S genaro or PlasmaOrdered By: Nabil Baker on 01-04-2023 Magnesium [Mass/Vol] 2.2 mg/dL 1.9-2.7 [facility] No Panel InformationOrdered By: Nabil Baker on 01-04-2023 Estimated GFR (CKD-EPI) > 60.0 mL/Min [facility] Creatinine Clearance (Chem 87.71 [facility] Potassium [Moles/volume] in Serum or PlasmaOrdered By: Nabil Baker on 01-04-2023 Potassium [Moles/Vol] 3.6 mmol/L 3.5-5.1 [facility] Serum or plasma anion gap de terminationOrdered By: Nabil Baker on 01-04-2023 Anion gap [Moles/Vol] 10.9 mmol/L 6.0-15.0 [facility] Serum or plasma high density lipoprotein (HDL) cholesterol measurementOrdered By: Nabil Baker on 01-04-2023 Cholesterol in HDL [Mass/Vol] 39 mg/dL [facility] Comment on above: HDL CHOL ATP-III CLA SSIFICATION Cardiovascular RiskHDL > or equal to 60 mg/dL LOWHDL < 40 mg/dL HIGH Serum or plasma total choles terol/high density lipoprotein (HDL) cholesterol mass ratOrdered By: Nabil Baker on 01-04-2023 Cholesterol.total/Chol esterol in HDL [Mass ratio] 3.1 {ratio} <5.0 [facility] Sodium [Moles/volume] in Ser um or PlasmaOrdered By: Nabil Baker on 01-04-2023 Sodium [Moles/Vol] 141 mmol/L 136-145 [facility] Triglyceride [Mass/volume] i n Serum or PlasmaOrdered By: Nabil Baker on 01-04-2023 Triglyceride [Mass/Vol] 78 mg/dL 0-149 [facility] Comment on above: TRIG ATP III CLASSIF [...] <= 0.01 ng/mL [Mass/Vol] 8.5 pg/mL 0.0-15.0 [facility] Urea nitrogen [Mass/volume] in Serum or PlasmaOrdered By: Nabil Baker on 01-04-2023 Urea nitrogen [Mass/Vol] 25 mg/dL 12-06 [facility] Activated partial thrombopla stin time (aPTT) in platelet poor plasma by coagulation aOrdered By: Erika Escobedo on 01-03-2023 aPTT Coag (PPP) [Time] 20.6 s 25.1-36.5 [facility] Alanine aminotransferase [En zymatic activity/volume] in Serum or PlasmaOrdered By: Erika Escobedo on 01-03-2023 ALT [Catalytic activity/Vol] 25 U/L [facility] Albumin [Mass/volume] in Ser um or Plasma by Bromocresol green (BCG) dye binding methoOrdered By: Erika Escobedo on 01-03-2023 Albumin BCG dye [Mass/Vol] 4.1 g/dL 3.5-5.7 [facility] Alkaline phosphatase [Enzyma tic activity/volume] in Serum or PlasmaOrdered By: Erika Escobedo on 01-03-2023 ALP [Catalytic activity/Vol] 55 U/L 34-104 [facility] Aspartate aminotransferase [ Enzymatic activity/volume] in Serum or PlasmaOrdered By: Erika Escobedo on 01-03-2023 AST [Catalytic activity/Vol] 20 U/L 13-39 [facility] Basophils Auto (Bld) [#/Vol] Ordered By: Erika Escobedo on 01-03-2023 Basophils (Bld) [#/Vol] 0.1 10*3/uL 0.0-0.2 [facility] Basophils/100 WBC Auto (Bld) Ordered By: Erika Escobedo on 01-03-2023 Basophils/100 WBC (Bld) 1.0 % . [facility] Bilirubin Test strip Ql (U)O rdered By: Erika Escobedo on 01-03-2023 Bilirubin Ql (U) Negative Negative [facility] Bilirubin.total [Mass/volume ] in Serum or PlasmaOrdered By: Erika Escobedo on 01-03-2023 Bilirubin [Mass/Vol] 0.4 mg/dL 0.3-1.0 [facility] Calcium [Mass/volume] in Ser um or PlasmaOrdered By: Erika Escobedo on 01-03-2023 Calcium [Mass/Vol] 9.3 mg/dL 8.6-10.3 [facility] Carbon dioxide, total [Moles /volume] in Serum or PlasmaOrdered By: Erika Escobedo on 01-03-2023 CO2 [Moles/Vol] 24.5 mmol/L 21.0-31.0 [facility] Chloride [Moles/volume] in S genaro or PlasmaOrdered By: Erika Escobedo on 01-03-2023 Chloride [Moles/Vol] 106 mmol/L 98-107 [facility] Color Auto (U)Ordered By: Cari Escoebdo on 01-03-2023 Color (U) Yellow Yellow [facility] Creatine kinase [Enzymatic a ctivity/volume] in Serum or PlasmaOrdered By: Erika Escobedo on 01-03-2023 CK [Catalytic activity/Vol] 31 U/L 30-223 [facility] Creatinine [Mass/volume] in Serum or PlasmaOrdered By: Erika Escobedo on 01-03-2023 Creatinine [Mass/Vol] 0.82 mg/dL 0.60-1.20 [facility] Eosinophils Auto (Bld) [#/Vo l]Ordered By: Erika Escobedo on 01-03-2023 Eosinophils (Bld) [#/Vol] 0.1 10*3/uL 0.0-0.45 [facility] Eosinophils/100 WBC Auto (Bl d)Ordered By: Erika Escobedo on 01-03-2023 Eosinophils/100 WBC (Bld) 0.7 % . [facility] Erythrocyte distribution wid th Auto (RBC) [Ratio]Ordered By: Erika Escobedo on 01-03-2023 Erythrocyte distribution width (RBC) [Ratio] 12.8 % 11.9-15.3 [facility] Globulin Calc (S) [Mass/Vol] Ordered By: Erika Escobedo on 01-03-2023 Globulin (S) [Mass/Vol] 3.3 g/dL [facility] Glucose [Mass/volume] in Ser um or PlasmaOrdered By: Erika Escobedo on 01-03-2023 Glucose [Mass/Vol] 107 mg/dL 70-100 [facility] Comment on above: ADA recommended refe rence rangeRandom Glucose Reference Range is dependent on time and content of last meal. Glucose of more than 200 mg/dL in a nonstressed, ambulatory subject supports the diagnosis of Diabetes Mellitus. Hematocrit Auto (Bld) [Volum e fraction]Ordered By: Erika Escobedo on 01-03-2023 Hematocrit (Bld) [Volume fraction] 43.7 % 34.0-46.4 [facility] Hemoglobin [Mass/volume] in BloodOrdered By: Erika Escobedo on 01-03-2023 Hemoglobin (Bld) [Mass/Vol] 14.7 g/dL 11.8-15.4 [facility] INR in Platelet poor plasma by Coagulation assayOrdered By: Erika Escobedo on 01-03-2023 INR Coag (PPP) [Relative time] 1.1 {INR} [facility] Comment on above: INR Therapeutic Rang e [...] on 01-03-2023 Ketones (U) [Mass/Vol] Negative Negative [facility] - CoagulationOrde red By: Erika Escobedo on 01-03-2023 PT Coag (PPP) [Time] 12.7 s 9.0-12.9 [facility] Leukocytes [#/volume] correc rani for nucleated erythrocytes in Blood by Automated counOrdered By: Erika Escobedo on 01-03-2023 WBC corrected for nucl RBC Auto (Bld) [#/Vol] 8.2 10*3/uL 3.8-11.6 [facility] Lymphocytes Auto (Bld) [#/Vo l]Ordered By: Erika Escobedo on 01-03-2023 Lymphocytes (Bld) [#/Vol] 1.2 10*3/uL 1.00-4.8 [facility] Lymphocytes/100 WBC Auto (Bl d)Ordered By: Erika Escobedo on 01-03-2023 Lymphocytes/100 WBC (Bld) 15.0 % . [facility] MCH Auto (RBC) [Entitic mass ]Ordered By: Erika Escobedo on 01-03-2023 MCH (RBC) [Entitic mass] 30.3 pg 24.7-34.3 [facility] MCHC Auto (RBC) [Mass/Vol]Or dered By: Erika Escobedo on 01-03-2023 MCHC (RBC) [Mass/Vol] 33.6 g/dL 32.0-35.0 [facility] MCV Auto (RBC) [Entitic vol] Ordered By: Erkia Escobedo on 01-03-2023 MCV (RBC) [Entitic vol] 90.2 fL 80-100 [facility] Monocyte distribution width [Entitic volume] in Blood by AutomatedOrdered By: Erika Escobedo on 01-03-2023 Monocyte distribution width Auto (Bld) [Entitic vol] 22.07 % 0.00-20.00 [facility] Comment on above: For adults in ED, MD W > 20.0 may be associated with a higher risk of sepsis during the first 12 hrs of hospital admission Monocytes Auto (Bld) [#/Vol] Ordered By: Erika Escobedo on 01-03-2023 Monocytes (Bld) [#/Vol] 0.7 10*3/uL 0.0-0.8 [facility] Monocytes/100 WBC Auto (Bld) Ordered By: Erika Escobedo on 01-03-2023 Monocytes/100 WBC (Bld) 8.4 % . [facility] Natriuretic peptide B [Mass/ Vol]Ordered By: Erika Escobedo on 01-03-2023 Natriuretic peptide B (Bld) [Mass/Vol] 19.0 pg/mL 5-100 [facility] Neutrophils Auto (Bld) [#/Vo l]Ordered By: Erika Escobedo on 01-03-2023 Neutrophils (Bld) [#/Vol] 6.2 10*3/uL 1.8-7.7 [facility] Neutrophils/100 WBC Auto (Bl d)Ordered By: Erika Escobedo on 01-03-2023 Neutrophils/100 WBC (Bld) 74.9 % . [facility] Nitrite Test strip Ql (U)Ord ered By: Erika Escobedo on 01-03-2023 Nitrite Ql (U) Negative Negative [facility] No Panel InformationOrdered By: Erika Escobedo on 01-03-2023 Estimated GFR (CKD-EPI) > 60.0 mL/Min [facility] Creatinine Clearance (Chem 89.05 [facility] Nucleated erythrocytes [Pres ence] in Blood by Automated countOrdered By: Erika Escobedo on 01-03-2023 Nucleated RBC Auto Ql (Bld) 0.1 /100{WBC} 0-0.5 [facility] Platelet mean volume Auto (B ld) [Entitic vol]Ordered By: Erika Escobedo on 01-03-2023 Platelet mean volume (Bld) [Entitic vol] 7.2 fL 6.3-10.7 [facility] Platelets Auto (Bld) [#/Vol] Ordered By: Erika Escobedo on 01-03-2023 Platelets (Bld) [#/Vol] 270 10*3/uL 150-450 [facility] Potassium [Moles/volume] in Serum or PlasmaOrdered By: Erika Escobedo on 01-03-2023 Potassium [Moles/Vol] 3.5 mmol/L 3.5-5.1 [facility] Protein Auto test strip (U) [Mass/Vol]Ordered By: Erika Escobedo on 01-03-2023 Protein (U) [Mass/Vol] Negative Negative [facility] Protein [Mass/volume] in Ser um or PlasmaOrdered By: Erika Escobedo on 01-03-2023 Protein [Mass/Vol] 7.4 g/dL 6.4-8.9 [facility] RBC Auto (Bld) [#/Vol]Ordere d By: Erika Escobedo on 01-03-2023 RBC (Bld) [#/Vol] 4.84 10*6/uL 3.60-5.00 [facility] Serum or plasma albumin/glob ulin mass ratioOrdered By: Erika Escobedo on 01-03-2023 Albumin/Globulin [Mass ratio] 1.2 {ratio} [facility] Serum or plasma anion gap de terminationOrdered By: Erika Escobedo on 01-03-2023 Anion gap [Moles/Vol] 11.0 mmol/L 6.0-15.0 [facility] Sodium [Moles/volume] in Ser um or PlasmaOrdered By: Erika Escobedo on 01-03-2023 Sodium [Moles/Vol] 138 mmol/L 136-145 [facility] Specific gravity Auto test s trip (U) [Rel density]Ordered By: Erika Escobedo on 01-03-2023 Specific gravity (U) [Rel density] 1.024 1.001-1.03 0 [facility] Troponin I.cardiac [Mass/vol ume] in Serum or Plasma by Detection limit <= 0.01 ng/Ordered By: Erika Escobedo on 01-03-2023 Troponin I.cardiac DL <= 0.01 ng/mL [Mass/Vol] 13.3 pg/mL 0.0-15.0 [facility] Urea nitrogen [Mass/volume] in Serum or PlasmaOrdered By: Erika Escobedo on 01-03-2023 Urea nitrogen [Mass/Vol] 29 mg/dL 7-25 [facility] Urine clarity by refractomet ry automatedOrdered By: Erika Escobedo on 01-03-2023 Clarity Refractometry automated (U) Clear Clear [facility] Urine glucose measurement by automated test strip (mass/volume)Ordered By: Erika Escobedo on 01-03-2023 Glucose Auto test strip (U) [Mass/Vol] Normal mg/dL Normal [facility] Urine hemoglobin detection b y automated test stripOrdered By: Erika Escobedo on 01-03-2023 Hemoglobin Auto test strip Ql (U) Negative Negative [facility] Urine leukocyte esterase det ection by automated test stripOrdered By: Erika Escobedo on 01-03-2023 Leukocyte esterase Auto test strip Ql (U) Negative Negative [facility] Urobilinogen Auto test strip (U) [Mass/Vol]Ordered By: Erika Escobedo on 01-03-2023 Urobilinogen (U) [Mass/Vol] Normal mg/dL Normal [facility] WBC Auto (Bld) [#/Vol]Ordere d By: Erika Escobedo on 01-03-2023 WBC (Bld) [#/Vol] 8.2 10*3/uL 3.8-11.6 [facility] pH Auto test strip (U)Ordere d By: Erika Escobedo on 01-03-2023 pH (U) 6.5 [pH] 5.0-9.0 [facility] Alanine aminotransferase [En zymatic activity/volume] in Serum or PlasmaOrdered By: Renny Walton on 11-08-2022 ALT [Catalytic activity/Vol] 30 U/L 7-52 [facility] Albumin [Mass/volume] in Ser um or Plasma by Bromocresol green (BCG) dye binding methoOrdered By: Renny Walton on 11-08-2022 Albumin BCG dye [Mass/Vol] 4.3 g/dL 3.5-5.7 [facility] Alkaline phosphatase [Enzyma tic activity/volume] in Serum or PlasmaOrdered By: Renny Walton on 11-08-2022 ALP [Catalytic activity/Vol] 53 U/L 34-104 [facility] Aspartate aminotransferase [ Enzymatic activity/volume] in Serum or PlasmaOrdered By: Renny Walton on 11-08-2022 AST [Catalytic activity/Vol] 19 U/L 13-39 [facility] Basophils Auto (Bld) [#/Vol] Ordered By: Renny Walton on 11-08-2022 Basophils (Bld) [#/Vol] 0.1 10*3/uL 0.0-0.2 [facility] Basophils/100 WBC Auto (Bld) Ordered By: Renny Walton on 11-08-2022 Basophils/100 WBC (Bld) 1.0 % . [facility] Bilirubin.total [Mass/volume ] in Serum or PlasmaOrdered By: Renny Walton on 11-08-2022 Bilirubin [Mass/Vol] 0.7 mg/dL 0.3-1.0 [facility] Calcium [Mass/volume] in Ser um or PlasmaOrdered By: Renny Walton on 11-08-2022 Calcium [Mass/Vol] 9.1 mg/dL 8.6-10.3 [facility] Carbon dioxide, total [Moles /volume] in Serum or PlasmaOrdered By: Renny Walton on 11-08-2022 CO2 [Moles/Vol] 28.2 mmol/L 21.0-31.0 [facility] Chloride [Moles/volume] in S genaro or PlasmaOrdered By: Renny Walton on 11-08-2022 Chloride [Moles/Vol] 106 mmol/L 98-107 [facility] Cholesterol [Mass/volume] in Serum or PlasmaOrdered By: Renny Walton on 11-08-2022 Cholesterol [Mass/Vol] 167 mg/dL 140-200 [facility] Comment on above: Chol less than 200 m g/dl low riskChol 201-239 mg/dl borderline riskChol 240 mg/dl and greater high risk Cholesterol in LDL Calc [Mas s/Vol]Ordered By: Renny Walton on 11-08-2022 Cholesterol in LDL [Mass/Vol] 91 mg/dL 0-100 [facility] Comment on above: LDL ATP III CLASSIFI CATIONLDL less than 100 mg/dL OptimalLDL 100-129 mg/dL Near or above optimalLDL 130-159 mg/dL Borderline highLDL 160-189 mg/dL HighLDL greater than 189 mg/dL Very high Cholesterol in VLDL Calc [Ma ss/Vol]Ordered By: Renny Walton on 11-08-2022 Cholesterol in VLDL [Mass/Vol] 20 mg/dL [facility] Creatinine [Mass/volume] in Serum or PlasmaOrdered By: Renny Walton on 11-08-2022 Creatinine [Mass/Vol] 0.63 mg/dL 0.60-1.20 [facility] Eosinophils Auto (Bld) [#/Vo l]Ordered By: Renny Walton on 11-08-2022 Eosinophils (Bld) [#/Vol] 0.1 10*3/uL 0.0-0.45 [facility] Eosinophils/100 WBC Auto (Bl d)Ordered By: Renny Walton on 11-08-2022 Eosinophils/100 WBC (Bld) 1.0 % . [facility] Erythrocyte distribution wid th Auto (RBC) [Ratio]Ordered By: Renny Walton on 11-08-2022 Erythrocyte distribution width (RBC) [Ratio] 13.1 % 11.9-15.3 [facility] Globulin Calc (S) [Mass/Vol] Ordered By: Renny Walton on 11-08-2022 Globulin (S) [Mass/Vol] 2.9 g/dL [facility] Glucose [Mass/volume] in Ser um or PlasmaOrdered By: Renny Walton on 11-08-2022 Glucose [Mass/Vol] 110 mg/dL 70-100 [facility] Comment on above: ADA recommended refe rence range Glucose mean value [Mass/vol ume] in Blood Estimated from glycated hemoglobinOrdered By: Renny Walton on 11-08-2022 Average glucose Estimated from glycated hemoglobin (Bld) [Mass/Vol] 114 mg/dL [facility] Hematocrit Auto (Bld) [Volum e fraction]Ordered By: Renny Walton on 11-08-2022 Hematocrit (Bld) [Volume fraction] 42.2 % 34.0-46.4 [facility] Hemoglobin [Mass/volume] in BloodOrdered By: Renny Walton on 11-08-2022 Hemoglobin (Bld) [Mass/Vol] 14.2 g/dL 11.8-15.4 [facility] Laboratory - Hematology and Cell countsOrdered By: Renny Walton on 11-08-2022 HbA1c (Bld) [Mass fraction] 5.6 % 4.3-5.6 [facility] Comment on above: Increased risk for d iabetes: 5.7 - 6.4diabetes: >6.4glycemic control for adults with diabetes: <7.0 Leukocytes [#/volume] correc rani for nucleated erythrocytes in Blood by Automated counOrdered By: Renny Walton on 11-08-2022 WBC corrected for nucl RBC Auto (Bld) [#/Vol] 7.0 10*3/uL 3.8-11.6 [facility] Lymphocytes Auto (Bld) [#/Vo l]Ordered By: Renny Walton on 11-08-2022 Lymphocytes (Bld) [#/Vol] 1.9 10*3/uL 1.00-4.8 [facility] Lymphocytes/100 WBC Auto (Bl d)Ordered By: Renny Walton on 11-08-2022 Lymphocytes/100 WBC (Bld) 26.9 % . [facility] MCH Auto (RBC) [Entitic mass ]Ordered By: Renny Walton on 11-08-2022 MCH (RBC) [Entitic mass] 30.8 pg 24.7-34.3 [facility] MCHC Auto (RBC) [Mass/Vol]Or dered By: Renny Walton on 11-08-2022 MCHC (RBC) [Mass/Vol] 33.5 g/dL 32.0-35.0 [facility] MCV Auto (RBC) [Entitic vol] Ordered By: Renny Walton on 11-08-2022 MCV (RBC) [Entitic vol] 91.7 fL 80-100 [facility] Monocytes Auto (Bld) [#/Vol] Ordered By: Renny Walton on 11-08-2022 Monocytes (Bld) [#/Vol] 0.5 10*3/uL 0.0-0.8 [facility] Monocytes/100 WBC Auto (Bld) Ordered By: Renny Walton on 11-08-2022 Monocytes/100 WBC (Bld) 7.0 % . [facility] Neutrophils Auto (Bld) [#/Vo l]Ordered By: Renny Walton on 11-08-2022 Neutrophils (Bld) [#/Vol] 4.5 10*3/uL 1.8-7.7 [facility] Neutrophils/100 WBC Auto (Bl d)Ordered By: Renny Walton on 11-08-2022 Neutrophils/100 WBC (Bld) 64.1 % . [facility] No Panel InformationOrdered By: Renny Walton on 11-08-2022 Estimated GFR (CKD-EPI) > 60.0 mL/Min [facility] Nicotine Metabolite Negative Cutoff=25 [facility] Comment on above: Performed at: - [address] [id number] Director: Merary Mccartney MD, Phone: [phone] Pharmacy Creatinine Clearance (Chem N/A [facility] Nucleated erythrocytes [Pres ence] in Blood by Automated countOrdered By: Renny Walton on 11-08-2022 Nucleated RBC Auto Ql (Bld) 0.1 /100{WBC} 0-0.5 [facility] Platelet mean volume Auto (B ld) [Entitic vol]Ordered By: Renny Walton on 11-08-2022 Platelet mean volume (Bld) [Entitic vol] 7.0 fL 6.3-10.7 [facility] Platelets Auto (Bld) [#/Vol] Ordered By: Renny Walton on 11-08-2022 Platelets (Bld) [#/Vol] 304 10*3/uL 150-450 [facility] Potassium [Moles/volume] in Serum or PlasmaOrdered By: Renny Walton on 11-08-2022 Potassium [Moles/Vol] 3.9 mmol/L 3.5-5.1 [facility] Protein [Mass/volume] in Ser um or PlasmaOrdered By: Renny Walton on 11-08-2022 Protein [Mass/Vol] 7.2 g/dL 6.4-8.9 [facility] RBC Auto (Bld) [#/Vol]Ordere d By: Renny Walton on 11-08-2022 RBC (Bld) [#/Vol] 4.60 10*6/uL 3.60-5.00 [facility] Serum or plasma albumin/glob ulin mass ratioOrdered By: Renny Walton on 11-08-2022 Albumin/Globulin [Mass ratio] 1.5 {ratio} [facility] Serum or plasma anion gap de terminationOrdered By: Renny Walton on 11-08-2022 Anion gap [Moles/Vol] 11.7 mmol/L 6.0-15.0 [facility] Serum or plasma high density lipoprotein (HDL) cholesterol measurementOrdered By: Renny Walton on 11-08-2022 Cholesterol in HDL [Mass/Vol] 55 mg/dL 23-92 [facility] Comment on above: HDL CHOL ATP-III CLA SSIFICATION Cardiovascular RiskHDL > or equal to 60 mg/dL LOWHDL < 40 mg/dL HIGH Serum or plasma total choles terol/high density lipoprotein (HDL) cholesterol mass ratOrdered By: Renny Walton on 11-08-2022 Cholesterol.total/Chol esterol in HDL [Mass ratio] 3.0 {ratio} <5.0 [facility] Sodium [Moles/volume] in Ser um or PlasmaOrdered By: Renny Walton on 11-08-2022 Sodium [Moles/Vol] 142 mmol/L 136-145 [facility] Thyrotropin [Units/volume] i n Serum or PlasmaOrdered By: Renny Walton on 11-08-2022 TSH Qn 2.88 m[IU]/L 0.45-5.33 [facility] Triglyceride [Mass/volume] i n Serum or PlasmaOrdered By: Renny Walton on 11-08-2022 Triglyceride [Mass/Vol] 103 mg/dL 0-149 [facility] Comment on above: TRIG ATP III CLASSIF ICATIONTRIG less than 150 mg/dL NormalTRIG 150-199 mg/dL Borderline highTRIG 200-500 mg/dL High TRIG greater than 500 mg/dL Very highStandard traceable to the Center for Disease Conrtrol and Prevention (CDC) test method. Urea nitrogen [Mass/volume] in Serum or PlasmaOrdered By: Renny Walton on 11-08-2022 Urea nitrogen [Mass/Vol] 17 mg/dL 7- [facility] WBC Auto (Bld) [#/Vol]Ordere d By: Renny Walton on 11-08-2022 WBC (Bld) [#/Vol] 7.0 10*3/uL 3.8-11.6 [facility] Alanine aminotransferase [En zymatic activity/volume] in Serum or PlasmaOrdered By: Cecilio Dumont on 08-16-2022 ALT [Catalytic activity/Vol] 37 U/L 7-52 [facility] Albumin [Mass/volume] in Ser um or Plasma by Bromocresol green (BCG) dye binding methoOrdered By: Cecilio Dumont on 08-16-2022 Albumin BCG dye [Mass/Vol] 4.3 g/dL 3.5-5.7 [facility] Alkaline phosphatase [Enzyma tic activity/volume] in Serum or PlasmaOrdered By: Cecilio Dumont on 08-16-2022 ALP [Catalytic activity/Vol] 56 U/L 34-104 [facility] Aspartate aminotransferase [ Enzymatic activity/volume] in Serum or PlasmaOrdered By: Cecilio Dumont on 08-16-2022 AST [Catalytic activity/Vol] 22 U/L 13-39 [facility] Basophils Auto (Bld) [#/Vol] Ordered By: Cecilio Dumont on 08-16-2022 Basophils (Bld) [#/Vol] 0.1 10*3/uL 0.0-0.2 [facility] Basophils/100 WBC Auto (Bld) Ordered By: Cecilio Dumont on 08-16-2022 Basophils/100 WBC (Bld) 0.9 % . [facility] Bilirubin.total [Mass/volume ] in Serum or PlasmaOrdered By: Cecilio Dumont on 08-16-2022 Bilirubin [Mass/Vol] 0.6 mg/dL 0.3-1.0 [facility] Calcium [Mass/volume] in Ser um or PlasmaOrdered By: Cecilio Dumont 08-16-2022 Calcium [Mass/Vol] 9.4 mg/dL 8.6-10.3 [facility] Carbon dioxide, total [Moles /volume] in Serum or PlasmaOrdered By: Cecilio Dumont 08-16-2022 CO2 [Moles/Vol] 30.5 mmol/L 21.0-31.0 [facility] Chloride [Moles/volume] in S genaro or PlasmaOrdered By: Cecilio Dumont 08-16-2022 Chloride [Moles/Vol] 104 mmol/L 98-107 [facility] Creatinine [Mass/volume] in Serum or PlasmaOrdered By: Cecilio Dumont on 08-16-2022 Creatinine [Mass/Vol] 0.65 mg/dL 0.60-1.20 [facility] Eosinophils Auto (Bld) [#/Vo l]Ordered By: Cecilio Dumont on 08-16-2022 Eosinophils (Bld) [#/Vol] 0.1 10*3/uL 0.0-0.45 [facility] Eosinophils/100 WBC Auto (Bl d)Ordered By: Cecilio Dumont on 08-16-2022 Eosinophils/100 WBC (Bld) 1.1 % . [facility] Erythrocyte distribution wid th Auto (RBC) [Ratio]Ordered By: Cecilio Dumont on 08-16-2022 Erythrocyte distribution width (RBC) [Ratio] 13.0 % 11.9-15.3 [facility] Free thyroxine indexOrdered By: Cecilio Dumont on 08-16-2022 Free T4 index Calc [Mass/Vol] 2.5 1.2-4.9 [facility] Globulin Calc (S) [Mass/Vol] Ordered By: Cecilio Dumont on 08-16-2022 Globulin (S) [Mass/Vol] 3.0 g/dL [facility] Glucose [Mass/volume] in Ser um or PlasmaOrdered By: Cecilio Dumont on 08-16-2022 Glucose [Mass/Vol] 105 mg/dL 70-100 [facility] Comment on above: ADA recommended refe rence rangeRandom Glucose Reference Range is dependent on time and content of last meal. Glucose of more than 200 mg/dL in a nonstressed, ambulatory subject supports the diagnosis of Diabetes Mellitus. Hematocrit Auto (Bld) [Volum e fraction]Ordered By: Cecilio Dumont on 08-16-2022 Hematocrit (Bld) [Volume fraction] 42.3 % 34.0-46.4 [facility] Hemoglobin [Mass/volume] in BloodOrdered By: Cecilio Dumont 08-16-2022 Hemoglobin (Bld) [Mass/Vol] 14.2 g/dL 11.8-15.4 [facility] Iron [Mass/volume] in Serum or PlasmaOrdered By: Cecilio Dumont 08-16-2022 Iron [Mass/Vol] 87 ug/dL 50-212 [facility] Leukocytes [#/volume] correc rani for nucleated erythrocytes in Blood by Automated counOrdered By: Cecilio Dumont on 08-16-2022 WBC corrected for nucl RBC Auto (Bld) [#/Vol] 7.0 10*3/uL 3.8-11.6 [facility] Lymphocytes Auto (Bld) [#/Vo l]Ordered By: Cecilio Dumont 08-16-2022 Lymphocytes (Bld) [#/Vol] 1.8 10*3/uL 1.00-4.8 [facility] Lymphocytes/100 WBC Auto (Bl d)Ordered By: Cecilio Dumont on 08-16-2022 Lymphocytes/100 WBC (Bld) 26.0 % . [facility] MCH Auto (RBC) [Entitic mass ]Ordered By: Cecilio Dumont on 08-16-2022 MCH (RBC) [Entitic mass] 30.4 pg 24.7-34.3 [facility] MCHC Auto (RBC) [Mass/Vol]Or dered By: Cecilio Dumont on 08-16-2022 MCHC (RBC) [Mass/Vol] 33.7 g/dL 32.0-35.0 [facility] MCV Auto (RBC) [Entitic vol] Ordered By: Cecilio Dumont on 08-16-2022 MCV (RBC) [Entitic vol] 90.2 fL 80-100 [facility] Magnesium [Mass/volume] in S genaro or PlasmaOrdered By: Cecilio Dumont on 08-16-2022 Magnesium [Mass/Vol] 2.0 mg/dL 1.9-2.7 [facility] Monocytes Auto (Bld) [#/Vol] Ordered By: Cecilio Dumont on 08-16-2022 Monocytes (Bld) [#/Vol] 0.5 10*3/uL 0.0-0.8 [facility] Monocytes/100 WBC Auto (Bld) Ordered By: Cecilio Dumont on 08-16-2022 Monocytes/100 WBC (Bld) 7.1 % . [facility] Neutrophils Auto (Bld) [#/Vo l]Ordered By: Cecilio Dumont on 08-16-2022 Neutrophils (Bld) [#/Vol] 4.5 10*3/uL 1.8-7.7 [facility] Neutrophils/100 WBC Auto (Bl d)Ordered By: Cecilio Dumont on 08-16-2022 Neutrophils/100 WBC (Bld) 64.9 % . [facility] No Panel InformationOrdered By: Cecilio Dumont on 08-16-2022 Estimated GFR (CKD-EPI) > 60.0 mL/Min [facility] Free Thyroxine (T4) Direct 8.8 ug/dL 4.5-12.0 [facility] Pharmacy Creatinine Clearance (Chem N/A [facility] Nucleated erythrocytes [Pres ence] in Blood by Automated countOrdered By: Cecilio Dumont on 08-16-2022 Nucleated RBC Auto Ql (Bld) 0.0 /100{WBC} 0-0.5 [facility] Platelet mean volume Auto (B ld) [Entitic vol]Ordered By: Cecilio Dumont on 08-16-2022 Platelet mean volume (Bld) [Entitic vol] 7.3 fL 6.3-10.7 [facility] Platelets Auto (Bld) [#/Vol] Ordered By: Cecilio Dumont on 08-16-2022 Platelets (Bld) [#/Vol] 280 10*3/uL 150-450 [facility] Potassium [Moles/volume] in Serum or PlasmaOrdered By: Ceiclio Dumont on 08-16-2022 Potassium [Moles/Vol] 3.6 mmol/L 3.5-5.1 [facility] Protein [Mass/volume] in Ser um or PlasmaOrdered By: Ceciilo Dumont on 08-16-2022 Protein [Mass/Vol] 7.3 g/dL 6.4-8.9 [facility] RBC Auto (Bld) [#/Vol]Ordere d By: Cecilio Dumont on 08-16-2022 RBC (Bld) [#/Vol] 4.69 10*6/uL 3.60-5.00 [facility] Serum or plasma albumin/glob ulin mass ratioOrdered By: Cecilio Dumont on 08-16-2022 Albumin/Globulin [Mass ratio] 1.4 {ratio} [facility] Serum or plasma anion gap de terminationOrdered By: Cecilio Dumont on 08-16-2022 Anion gap [Moles/Vol] 10.1 mmol/L 6.0-15.0 [facility] Sodium [Moles/volume] in Ser um or PlasmaOrdered By: Cecilio Dumont on 08-16-2022 Sodium [Moles/Vol] 141 mmol/L 136-145 [facility] TSH DL <= 0.005 mIU/L QnOrde red By: Cecilio Dumont on 08-16-2022 TSH Qn 1.920 m[IU]/L 0.450-4.50 0 [facility] Triiodothyronine (T3) [Mass/ volume] in Serum or PlasmaOrdered By: Cecilio Dumont on 08-16-2022 T3 [Mass/Vol] 81 ng/dL 71-180 [facility] Comment on above: Performed at: [place] [id number] Director: Tomas Nick PhD, Phone: [phone] Triiodothyronine (T3) resin uptake testOrdered By: Cecilio Dumont on 08-16-2022 T3RU 28 % 24-39 [facility] Urea nitrogen [Mass/volume] in Serum or PlasmaOrdered By: Cecilio Dumont on 08-16-2022 Urea nitrogen [Mass/Vol] 24 mg/dL 7-25 [facility] WBC Auto (Bld) [#/Vol]Ordere d By: Cecilio Dumont on 08-16-2022 WBC (Bld) [#/Vol] 7.0 10*3/uL 3.8-11.6 [facility] XR knee RT 2Von 08-08-2022 XR knee RT 2V [facility] [employer] Other XR knee RT 2V [facility] [employer] Other XR knee RT 2V [address] [place] [address] [employer] Other XR knee RT 2V [address] [employer] Other XR knee RT 2V XRay Report [place] [employer] Other XR knee RT 2V Signed [place] [employer] Other XR knee RT 2V Patient: Benny Hooper i MR#: [id number] [facility] [employer] Other XR knee RT 2V 66 [facility] [employer] Other XR knee RT 2V : 1960 Acct:[id number] [employer] Other XR knee RT 2V Age/Sex: 62 / F ADM Date: 08/08/22 [employer] Other XR knee RT 2V Loc: [facility] Room: Type : [facility] [employer] Other XR knee RT 2V Attending Dr: Dutch Strange [employer] Other XR knee RT 2V Copies to: Sharla Strange [facility] [employer] Other XR knee RT 2V Ordering Provider: Sharla Strange LEATHERSMITHShree [employer] Other XR knee RT 2V Date of Service: 08/08/22 [employer] Other XR knee RT 2V XR/XR wrist RT 2V: Injury of right wrist, initial encounter [employer] Other XR knee RT 2V ([id number]) XR/XR knee RT 2V: Injury of right knee, initial encounter [employer] Other XR knee RT 2V CLINICAL DATA: Wallace nt tripped and fell landing on right side yesterday. Injury at the right wrist [employer] Other XR knee RT 2V and knee. [employer] Other XR knee RT 2V RIGHT WRIST - 2 views [employer] Other XR knee RT 2V COMPARISON: None [employer] Other XR knee RT 2V AP and lateral views were obtained. No fracture or dislocation is noted. No definite acute fracture [employer] Other XR knee RT 2V or dislocation is identified. There is minimal dorsal soft tissue swelling. [employer] Other XR knee RT 2V X R/XR wrist RT 2V [employer] Other XR knee RT 2V IMPRESSION: [employer] Other XR knee RT 2V NO ACUTE BONY INJURY WITHIN LIMITS OF THE AVAILABLE VIEWS. [employer] Other XR knee RT 2V RIGHT KNEE - 2 views N [facility] [employer] Other XR knee RT 2V Weightbearing AP and lateral views were obtained. No acute fracture or dislocation is identified. [employer] Other XR knee RT 2V There is moderate narrowing of the medial tibiofemoral joint compartment. There is tricompartment [employer] Other XR knee RT 2V marginal spurring. T here is an enthesophyte at the insertion of the quadriceps tendon. A small knee [employer] Other XR knee RT 2V effusion is seen. Th ere is no focal soft tissue swelling. [employer] Other XR knee RT 2V DEGENERATIVE CHANGES. [employer] Other XR knee RT 2V NO ACUTE BONY INJURY. [employer] Other XR knee RT 2V Impression dictated by: Danette Granger M.D.08/08/2022 8:28 AM [employer] Other XR knee RT 2V Dictation Location: [place] [address] [employer] Other XR knee RT 2V Transcribed By: ADAM 08/08/22 08 [employer] Other XR knee RT 2V Dictated By: Danette Granger MD 08/08/22 08 [employer] Other XR knee RT 2V Signed By: [employer] Other XR knee RT 2V 08/08/22 [id number] [employer] Other Covid-19 PCR (CVDTB)on 03-17 SARS-CoV-2 (COVID-19) RNA TIFFANY+probe Ql (Unsp spec) Detected Critically abnormal NOT DETECTED [facility] Comment on above: Result Comment: This test is not yet approved or cleared by the [place] FDA. When there are no FDA-approved or cleared tests available, and other criteria are met, FDA can make tests available under an emergency access mechanism called an Emergency Use Authorization (EUA). The EUA for this test is supported by the [place] of Health and Human Service's declaration that [...] longer be used). Performed By: #### [facility] #### [facility] [address] [place] [address] Dr. Rodney Barakat Albumin [Mass/volume] in Ser um or PlasmaOrdered By: Renny Walton on 12-16-2021 Albumin [Mass/Vol] 4.0 g/dL 3.2-5.5 [facility] Basophils Auto (Bld) [#/Vol] Ordered By: Renny Walton on 12-16-2021 Basophils (Bld) [#/Vol] 0.1 10*3/uL 0.0-0.2 [facility] Basophils/100 WBC Auto (Bld) Ordered By: Renny Walton on 12-16-2021 Basophils/100 WBC (Bld) 1.0 % . [facility] Blood hemoglobin measurement (mass/volume)Ordered By: Renny Walton on 12-16-2021 Hemoglobin (Bld) [Mass/Vol] 14.8 g/dL 11.8-15.4 [facility] Blood leukocytes automated c ount (number/volume)Ordered By: Renny Walton on 12-16-2021 WBC (Bld) [#/Vol] 6.5 10*3/uL 4.5-11.0 [facility] Cholesterol [Mass/volume] in Serum or PlasmaOrdered By: Renny Walton on 12-16-2021 Cholesterol [Mass/Vol] 189 mg/dL 140-200 [facility] Comment on above: Chol less than 200 m g/dl low risk Chol 201-239 mg/dl borderline risk Chol 240 mg/dl and greater high risk Cholesterol in LDL Calc [Mas s/Vol]Ordered By: Renny Walton on 12-16-2021 Cholesterol in LDL [Mass/Vol] 113 mg/dL 0-100 [facility] Comment on above: LDL ATP III CLASSIFI CATION LDL less than 100 mg/dL Optimal LDL 100-129 mg/dL Near or above optimal LDL 130-159 mg/dL Borderline high LDL 160-189 mg/dL High LDL greater than 189 mg/dL Very high Cholesterol in VLDL Calc [Ma ss/Vol]Ordered By: Renny Walton on 12-16-2021 Cholesterol in VLDL [Mass/Vol] 27 mg/dL [facility] Creatinine and Glomerular fi ltration rate.predicted panel (S/P/Bld)Ordered By: Renny Walton on 12-16-2021 Creatinine [Mass/Vol] 0.63 mg/dL 0.44-1.03 [facility] Eosinophils Auto (Bld) [#/Vo l]Ordered By: Renny Walton on 12-16-2021 Eosinophils (Bld) [#/Vol] 0.1 10*3/uL 0.0-0.45 [facility] Eosinophils/100 WBC Auto (Bl d)Ordered By: Renny Walton on 12-16-2021 Eosinophils/100 WBC (Bld) 1.2 % . [facility] Erythrocyte distribution wid th Auto (RBC) [Ratio]Ordered By: Renny Walton on 12-16-2021 Erythrocyte distribution width (RBC) [Ratio] 13.9 % 11.9-15.3 [facility] Estimated glomerular filtrat ion rate (GFR) non- AmericanOrdered By: Renny Walton on 12-16-2021 GFR/1.73 sq M.predicted among non-blacks MDRD (S/P/Bld) [Vol rate/Area] > 60 mL/Min [facility] Globulin Calc (S) [Mass/Vol] Ordered By: Renny Walton on 12-16-2021 Globulin (S) [Mass/Vol] 3.3 g/dL [facility] Glucose mean value [Mass/vol ume] in Blood Estimated from glycated hemoglobinOrdered By: Renny Walton on 12-16-2021 Average glucose Estimated from glycated hemoglobin (Bld) [Mass/Vol] 120 mg/dL [facility] Hematocrit Auto (Bld) [Volum e fraction]Ordered By: Renny Walton on 12-16-2021 Hematocrit (Bld) [Volume fraction] 44.9 % 34.0-46.4 [facility] Laboratory - Chemistry and C hemistry - challengeOrdered By: Renny Walton on 12-16-2021 Glucose [Mass/Vol] 111 mg/dL 70-100 [facility] Comment on above: ADA recommended refe rence range Laboratory - Hematology and Cell countsOrdered By: Renny Walton on 12-16-2021 HbA1c (Bld) [Mass fraction] 5.8 % 4.3-5.6 [facility] Comment on above: Increased risk for d iabetes: 5.7 - 6.4 diabetes: >6.4 glycemic control for adults with diabetes: <7.0 Nucleated RBC/100 WBC (Bld) [Ratio] 0.0 % 0-0.5 [facility] Lymphocytes Auto (Bld) [#/Vo l]Ordered By: Renny Walton on 12-16-2021 Lymphocytes (Bld) [#/Vol] 1.9 10*3/uL 1.00-4.8 [facility] Lymphocytes/100 WBC Auto (Bl d)Ordered By: Renny Walton on 12-16-2021 Lymphocytes/100 WBC (Bld) 29.2 % . [facility] MCH Auto (RBC) [Entitic mass ]Ordered By: Renny Walton on 12-16-2021 MCH (RBC) [Entitic mass] 30.0 pg 24.7-34.3 [facility] MCHC Auto (RBC) [Mass/Vol]Or dered By: Renny Walton on 12-16-2021 MCHC (RBC) [Mass/Vol] 33.0 g/dL 32.0-35.0 [facility] MCV Auto (RBC) [Entitic vol] Ordered By: Renny Walton on 12-16-2021 MCV (RBC) [Entitic vol] 90.8 fL 80-100 [facility] Monocyte %Ordered By: Renny Walton on 12-16-2021 Monocyte % 139 mg/dL 35-149 [facility] Comment on above: TRIG ATP III CLASSIF ICATION TRIG less than 150 mg/dL Normal TRIG 150-199 mg/dL Borderline high TRIG 200-500 mg/dL High TRIG greater than 500 mg/dL Very high Standard traceable to the Center for Disease Conrtrol and Prevention (CDC) test method. Monocytes Auto (Bld) [#/Vol] Ordered By: Renny Walton on 12-16-2021 Monocytes (Bld) [#/Vol] 0.5 10*3/uL 0.0-0.8 [facility] Monocytes/100 WBC Auto (Bld) Ordered By: Renny Walton on 12-16-2021 Monocytes/100 WBC (Bld) 7.4 % . [facility] Neutrophils Auto (Bld) [#/Vo l]Ordered By: Renny Walton on 12-16-2021 Neutrophils (Bld) [#/Vol] 4.0 10*3/uL 1.8-7.7 [facility] Neutrophils/100 WBC Auto (Bl d)Ordered By: Renny Walton on 12-16-2021 Neutrophils/100 WBC (Bld) 61.2 % . [facility] No Panel InformationOrdered By: Renny Walton on 12-16-2021 Estimated GFR () > 60 mL/Min [facility] Comment on above: GFR estimated refere nce range: According to KDOQI guidelines, <60 ml/min/1.73m2 is sufficient to diagnose a patient with chronic kidney disease. Nicotine Metabolite Negative Cutoff=25 [facility] Comment on above: Performed at: [address] [id number] [employer] Estimator: Merary Mccartney MD, Phone: [phone] Pharmacy Creatinine Clearance (Chem N/A [facility] Platelet mean volume Auto (B ld) [Entitic vol]Ordered By: Renny Walton on 12-16-2021 Platelet mean volume (Bld) [Entitic vol] 7.3 fL 6.3-10.7 [facility] Platelets Auto (Bld) [#/Vol] Ordered By: Renny Walton on 12-16-2021 Platelets (Bld) [#/Vol] 286 10*3/uL 150-450 [facility] Protein [Mass/volume] in Ser um or PlasmaOrdered By: Renny Walton on 12-16-2021 Protein [Mass/Vol] 7.3 g/dL 6.1-7.9 [facility] RBC Auto (Bld) [#/Vol]Ordere d By: Renny Walton on 12-16-2021 RBC (Bld) [#/Vol] 4.94 10*6/uL 3.60-5.00 [facility] Serum or plasma alanine carter otransferase measurement without P-5'-P (enzymatic activiOrdered By: Renny Walton on 12-16-2021 ALT No additional P-5'-P [Catalytic activity/Vol] 45 U/L 10-60 [facility] Serum or plasma albumin/glob ulin mass ratioOrdered By: Renny Walton on 12-16-2021 Albumin/Globulin [Mass ratio] 1.2 {ratio} [facility] Serum or plasma alkaline dawood sphatase measurement (enzymatic activity/volume)Ordered By: Renny Walton on 12-16-2021 ALP [Catalytic activity/Vol] 64 U/L 32-92 [facility] Serum or plasma aspartate am inotransferase measurement (enzymatic activity/volume)Ordered By: Renny Walton on 12-16-2021 AST [Catalytic activity/Vol] 25 U/L 10-42 [facility] Serum or plasma calcium hernandez urement (mass/volume)Ordered By: Renny Walton on 12-16-2021 Calcium [Mass/Vol] 9.5 mg/dL 8.2-10.2 [facility] Serum or plasma chloride patrick surement (moles/volume)Ordered By: Renny Walton on 12-16-2021 Chloride [Moles/Vol] 101 mmol/L 95-114 [facility] Serum or plasma high density lipoprotein (HDL) cholesterol measurementOrdered By: Renny Walton on 12-16-2021 Cholesterol in HDL [Mass/Vol] 48 mg/dL 35-85 [facility] Comment on above: HDL CHOL ATP-III CLA SSIFICATION Cardiovascular Risk HDL > or equal to 60 mg/dL LOW HDL < 40 mg/dL HIGH Serum or plasma potassium me asurement (moles/volume)Ordered By: Renny Walton on 12-16-2021 Potassium [Moles/Vol] 4.1 mmol/L 3.5-5.1 [facility] Serum or plasma sodium measu rement (moles/volume)Ordered By: Renny Walton on 12-16-2021 Sodium [Moles/Vol] 138 mmol/L 136-146 [facility] Serum or plasma total biliru bin measurement (mass/volume)Ordered By: Renny Walton on 12-16-2021 Bilirubin [Mass/Vol] 0.6 mg/dL 0.3-1.2 [facility] Serum or plasma total carbon dioxide measurement (moles/volume)Ordered By: Renny Walton on 12-16-2021 CO2 [Moles/Vol] 28.3 mmol/L 22.0-30.0 [facility] Serum or plasma total choles terol/high density lipoprotein (HDL) cholesterol mass ratOrdered By: Renny Walton on 12-16-2021 Cholesterol.total/Chol esterol in HDL [Mass ratio] 3.9 {ratio} <5.0 [facility] Serum or plasma urea nitroge n measurement (mass/volume)Ordered By: Renny Walton on 12-16-2021 Urea nitrogen [Mass/Vol] 22 mg/dL 9-23 [facility] TSH DL <= 0.005 mIU/L QnOrde red By: Renny Walton on 12-16-2021 TSH Qn 2.52 m[IU]/L 0.45-5.33 [facility] COVID-19 SOFIAOrdered By: Wilfrido Walton on 12-09-2021 SARS-CoV+SARS-CoV-2 (COVID-19) Ag IA.rapid Ql (Resp) Negative Negative [facility] Comment on above: This is a duplicate [place] SARS Antigen (FERN) result to be used for statistical tracking purpose only. No Panel InformationOrdered By: Renny Walton on 12-09-2021 SARS Antigen (LFIA) [facility] No Panel Informationon 10-28 Normal -[facility] [facility] [address] [place] Work Phone: No Panel Informationon 10-27 -[facility] [address] [place] Work Phone: Office Visit [...] Metabolic Panel; Status:Active - Retrospective Authorization; Requested for:[id number]; SocHx: Never a smoker Tobacco Use Screening; [...] chest pain. 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 [facility] Tobacco Screening.on 022 Adult depression screening assessment No [facility] [facility] [address] [place] Work Phone: Tobacco use status [facility] b) No [facility] [facility] [address] [place] Work Phone: Vital Signs Date Time Vital Sign Value Performing Clinician Facility 12-26-2024 08:16-0400 Body height 170.18 cm Cecilio Dumont MD Work Phone: [facility] 12-26-2024 08:16-0400 Body mass index (BMI) [Ratio] 33.6 kg/m2 Cecilio Dumont MD Work Phone: [facility] 12-26-2024 08:16-0400 Body weight 97.52 kg Cecilio Dumont MD Work Phone: [facility] 11-20-2024 16:21-0400 Body height 170.2 cm Joseph Cobian DPM Work Phone: [facility] 11-20-2024 16:21-0400 Body mass index (BMI) [Ratio] 33.67 kg/m2 Joseph Cobian DPM Work Phone: [facility] 11-20-2024 16:21-0400 Body weight 97.52 kg Joseph Cobian DPM Work Phone: [facility] 11-20-2024 16:21-0400 Respiratory rate 18 /min Joseph Cobian DPM Work Phone: [facility] 09-11-2024 08:11-0400 Body height 170.18 cm [facility] 09-11-2024 08:11-0400 Body mass index (BMI) [Ratio] 33.7 kg/m2 [facility] 09-11-2024 08:11-0400 Body weight 97.9 kg [facility] 09-11-2024 08:11-0400 Diastolic blood pressure 75 mm[Hg] [facility] 09-11-2024 08:11-0400 Heart rate 65 /min [facility] 09-11-2024 08:11-0400 Respiratory rate 18 /min [facility] 09-11-2024 08:11-0400 SaO2% (BldA) [Mass fraction] 97 % [facility] 09-11-2024 08:11-0400 Systolic blood pressure 117 mm[Hg] [facility] 06-12-2024 08:16-0500 Body height 170.18 cm [facility] 06-12-2024 08:16-0500 Body mass index (BMI) [Ratio] 32.5 kg/m2 [facility] 06-12-2024 08:16-0500 Body weight 94.46 kg [facility] 06-12-2024 08:16-0500 Diastolic blood pressure 64 mm[Hg] [facility] 06-12-2024 08:16-0500 Heart rate 76 /min [facility] 06-12-2024 08:16-0500 Respiratory rate 16 /min [facility] 06-12-2024 08:16-0500 SaO2% (BldA) [Mass fraction] 96 % [facility] 06-12-2024 08:16-0500 Systolic blood pressure 106 mm[Hg] [facility] 03-22-2024 08:52-0500 Body height 170.2 cm Anneliese Garcia MD Work Phone: [facility] 03-22-2024 08:52-0500 Body mass index (BMI) [Ratio] 32.26 kg/m2 Anneliese Garica MD Work Phone: [facility] 03-22-2024 08:52-0500 Body weight 93.44 kg Anneliese Garcia MD Work Phone: [facility] 03-22-2024 08:52-0500 Diastolic blood pressure 84 mm[Hg] Anneliese Garcia MD Work Phone: [facility] 03-22-2024 08:52-0500 Heart rate 68 /min Anneliese Garcia MD Work Phone: [facility] 03-22-2024 08:52-0500 Systolic blood pressure 120 mm[Hg] Anneliese Garcia MD Work Phone: [facility] 02-14-2024 08:01-0400 Body height 170.18 cm [facility] 02-14-2024 08:01-0400 Body mass index (BMI) [Ratio] 32 kg/m2 [facility] 02-14-2024 08:01-0400 Body weight 92.73 kg [facility] 02-14-2024 08:01-0400 Diastolic blood pressure 70 mm[Hg] [facility] 02-14-2024 08:01-0400 Heart rate 78 /min [facility] 02-14-2024 08:01-0400 Respiratory rate 18 /min [facility] 02-14-2024 08:01-0400 SaO2% (BldA) [Mass fraction] 98 % [facility] 02-14-2024 08:01-0400 Systolic blood pressure 129 mm[Hg] [facility] 12-20-2023 12:22-0400 Body height 170.18 cm MD Cecilio Dumont Work Phone: [facility] 12-20-2023 12:22-0400 Body mass index (BMI) [Ratio] 32.3 kg/m2 MD Cecilio Dumont Work Phone: [facility] 12-20-2023 12:22-0400 Body weight 93.55 kg MD Cecilio Dumont Work Phone: [facility] 12-20-2023 12:22-0400 Diastolic blood pressure 79 mm[Hg] MD Cecilio Dumont Work Phone: [facility] 12-20-2023 12:22-0400 Heart rate 69 /min MD Cecilio Dumont Work Phone: [facility] 12-20-2023 12:22-0400 Respiratory rate 16 /min MD Cecilio Dumont Work Phone: [facility] 12-20-2023 12:22-0400 SaO2% (BldA) [Mass fraction] 95 % MD Cecilio Dumont Work Phone: [facility] 12-20-2023 12:22-0400 Systolic blood pressure 131 mm[Hg] MD Cecilio Dumont Work Phone: [facility] 10-27-2023 10:38-0400 Body height 170.18 cm [facility] 10-27-2023 10:38-0400 Body mass index (BMI) [Ratio] 33.5 kg/m2 [facility] 10-27-2023 10:38-0400 Body weight 97.29 kg [facility] 10-27-2023 10:38-0400 Diastolic blood pressure 69 mm[Hg] [facility] 10-27-2023 10:38-0400 Heart rate 76 /min [facility] 10-27-2023 10:38-0400 Respiratory rate 20 /min [facility] 10-27-2023 10:38-0400 SaO2% (BldA) [Mass fraction] 96 % [facility] 10-27-2023 10:38-0400 Systolic blood pressure 108 mm[Hg] [facility] 09-06-2023 07:22-0400 Body height 170.18 cm [facility] 09-06-2023 07:22-0400 Body mass index (BMI) [Ratio] 34.1 kg/m2 [facility] 09-06-2023 07:22-0400 Body weight 98.93 kg [facility] 09-06-2023 07:22-0400 Diastolic blood pressure 74 mm[Hg] [facility] 09-06-2023 07:22-0400 Heart rate 72 /min [facility] 09-06-2023 07:22-0400 Respiratory rate 16 /min [facility] 09-06-2023 07:22-0400 SaO2% (BldA) [Mass fraction] 98 % [facility] 09-06-2023 07:22-0400 Systolic blood pressure 130 mm[Hg] [facility] 07-12-2023 07:41-0500 Body height 170.18 cm [facility] 07-12-2023 07:41-0500 Body mass index (BMI) [Ratio] 33 kg/m2 [facility] 07-12-2023 07:41-0500 Body weight 95.82 kg [facility] 07-12-2023 07:41-0500 Diastolic blood pressure 71 mm[Hg] [facility] 07-12-2023 07:41-0500 Heart rate 76 /min [facility] 07-12-2023 07:41-0500 Respiratory rate 16 /min [facility] 07-12-2023 07:41-0500 SaO2% (BldA) [Mass fraction] 97 % [facility] 07-12-2023 07:41-0500 Systolic blood pressure 107 mm[Hg] [facility] 05-31-2023 07:45-0500 Body height 170.18 cm Isabel Kent Other [employer] Other 05-31-2023 07:45-0500 Body mass index (BMI) [Ratio] 34.81 kg/m2 Isabelher Calller Other [employer] Other 05-31-2023 07:45-0500 Body weight 100.84 kg Isabel Missler Other [employer] Other 05-31-2023 07:45-0500 Diastolic blood pressure 82 mm[Hg] Isabel Missler Other [employer] Other 05-31-2023 07:45-0500 Respiratory rate 18 /min Isabel Missler Other [employer] Other 05-31-2023 07:45-0500 SaO2% (BldA) [Mass fraction] 97 % Isabel Missler Other [employer] Other 05-31-2023 07:45-0500 Systolic blood pressure 127 mm[Hg] Isabel Missler Other [employer] Other 04-21-2023 07:15-0500 Body height 170.18 cm Isabel Missler Other [employer] Other 04-21-2023 07:15-0500 Body mass index (BMI) [Ratio] 35.24 kg/m2 Isabel Missler Other [employer] Other 04-21-2023 07:15-0500 Body weight 102.06 kg Isabel Missler Other [employer] Other 04-21-2023 07:15-0500 Diastolic blood pressure 70 mm[Hg] Isabel Missler Other [employer] Other 04-21-2023 07:15-0500 Respiratory rate 18 /min Isabel Missler Other [employer] Other 04-21-2023 07:15-0500 SaO2% (BldA) [Mass fraction] 95 % Isabel Kent Other [employer] Other 04-21-2023 07:15-0500 Systolic blood pressure 110 mm[Hg] Isabel Kent Other [employer] Other 03-24-2023 08:37-0500 Body height 170.2 cm Anneliese Garcia MD Work Phone: [facility] 03-24-2023 08:37-0500 Body mass index (BMI) [Ratio] 34.93 kg/m2 Anneliese Garcia MD Work Phone: [facility] 03-24-2023 08:37-0500 Body weight 101.15 kg Anneliese Garcia MD Work Phone: [facility] 03-24-2023 08:37-0500 Diastolic blood pressure 84 mm[Hg] Anneliese Garcia MD Work Phone: [facility] 03-24-2023 08:37-0500 Heart rate 64 /min Anneliese Garcia MD Work Phone: [facility] 03-24-2023 08:37-0500 Systolic blood pressure 138 mm[Hg] Anneleise Garcia MD Work Phone: [facility] 03-16-2023 08:00-0400 Body height 170.18 cm Julia Ayon Other [employer] Other 03-16-2023 08:00-0400 Body mass index (BMI) [Ratio] 34.83 kg/m2 Julia Fitt Other [employer] Other 03-16-2023 08:00-0400 Body weight 100.88 kg Julia Ayon Other [employer] Other 03-10-2023 07:45-0400 Body height 170.18 cm Isabel Missler Other [employer] Other 03-10-2023 07:45-0400 Body mass index (BMI) [Ratio] 35.13 kg/m2 Isabel Missler Other [employer] Other 03-10-2023 07:45-0400 Body weight 101.74 kg Isabel Missler Other [employer] Other 03-10-2023 07:45-0400 Diastolic blood pressure 72 mm[Hg] Isabel Missler Other [employer] Other 03-10-2023 07:45-0400 Respiratory rate 18 /min Isabel Missler Other [employer] Other 03-10-2023 07:45-0400 SaO2% (BldA) [Mass fraction] 97 % Isabel Missler Other [employer] Other 03-10-2023 07:45-0400 Systolic blood pressure 112 mm[Hg] Isabel Missler Other [employer] Other 01-27-2023 08:15-0400 Body height 170.18 cm Isabel Missler Other [employer] Other 01-27-2023 08:15-0400 Body mass index (BMI) [Ratio] 34.8 kg/m2 Isabel Missler Other [employer] Other 01-27-2023 08:15-0400 Body weight 100.79 kg Isabel Missler Other [employer] Other 01-27-2023 08:15-0400 Diastolic blood pressure 81 mm[Hg] Isabel Missler Other [employer] Other 01-27-2023 08:15-0400 Respiratory rate 18 /min Isabel Missler Other [employer] Other 01-27-2023 08:15-0400 SaO2% (BldA) [Mass fraction] 99 % Isabel Missler Other [employer] Other 01-27-2023 08:15-0400 Systolic blood pressure 119 mm[Hg] Isabel Missler Other [employer] Other 01-04-2023 16:55-0400 Body temperature 98.3 [degF] MD Cecilio Dumont Work Phone: [facility] 01-04-2023 16:55-0400 Diastolic blood pressure 82 mm[Hg] MD Cecilio Dumont Work Phone: [facility] 01-04-2023 16:55-0400 Heart rate 61 /min MD Cecilio Dumont Work Phone: [facility] 01-04-2023 16:55-0400 Respiratory rate 18 /min MD Cecilio Dumont Work Phone: [facility] 01-04-2023 16:55-0400 SaO2% (BldA) [Mass fraction] 97 % MD Cecilio Dumont Work Phone: [facility] 01-04-2023 16:55-0400 Systolic blood pressure 124 mm[Hg] MD Cecilio Dumont Work Phone: [facility] 01-04-2023 05:53-0400 Body weight 100.3 kg MD Cecilio Dumont Work Phone: [facility] 01-03-2023 17:09-0400 Body height 170.18 cm MD Cecilio Dumont Work Phone: [facility] 01-03-2023 16:05-0400 Body temperature 97.8 [degF] MD Cecilio Dumont Work Phone: [facility] 01-03-2023 16:05-0400 Diastolic blood pressure 64 mm[Hg] MD Cecilio Dumont Work Phone: [facility] 01-03-2023 16:05-0400 Heart rate 76 /min MD Cecilio Dumont Work Phone: [facility] 01-03-2023 16:05-0400 Respiratory rate 20 /min MD Cecilio Dumont Work Phone: [facility] 01-03-2023 16:05-0400 SaO2% (BldA) [Mass fraction] 98 % MD Cecilio Dumont Work Phone: [facility] 01-03-2023 16:05-0400 Systolic blood pressure 125 mm[Hg] MD Cecilio Dumont Work Phone: [facility] 01-03-2023 10:17-0400 Body height 170.18 cm MD Cecilio Dumont Work Phone: [facility] 01-03-2023 10:17-0400 Body weight 100.9 kg MD Cecilio Dumont Work Phone: [facility] 12-16-2022 09:15-0400 Body height 170.18 cm Isabel Kent Other [employer] Other 12-16-2022 09:15-0400 Body mass index (BMI) [Ratio] 36.38 kg/m2 Isabel Calller Other [employer] Other 12-16-2022 09:15-0400 Body weight 105.37 kg Isabel Missler Other [employer] Other 12-16-2022 09:15-0400 Diastolic blood pressure 81 mm[Hg] Isabel Missler Other [employer] Other 12-16-2022 09:15-0400 Respiratory rate 18 /min Isabel Missler Other [employer] Other 12-16-2022 09:15-0400 SaO2% (BldA) [Mass fraction] 98 % Isabel Missler Other [employer] Other 12-16-2022 09:15-0400 Systolic blood pressure 145 mm[Hg] Isabel Missler Other [employer] Other 10-22-2021 08:38-0400 Body height 170.18 cm Cecilio [employer] Hoy Work Phone: [facility] [address] [place] Work Phone: 10-22-2021 08:38-0400 Body mass index (BMI) [Ratio] 36.81 kg/m2 Cecilio M Hoy Work Phone: [facility] [address] [place] Work Phone: 10-22-2021 08:38-0400 Body surface area Derived from formula 2.17 m2 Cecilio M Hoy Work Phone: [facility] [address] [place] Work Phone: 10-22-2021 08:38-0400 Body weight 106.6 kg Cecliio M Hoy Work Phone: [facility] [address] [place] Work Phone: 10-22-2021 08:38-0400 Diastolic blood pressure 92 mm[Hg] Cecilio M Hoy Work Phone: [facility] [address] [place] Work Phone: 10-22-2021 08:38-0400 Diastolic blood pressure 98 mm[Hg] Cecilio Castaneda Hoy Work Phone: [facility] [address] [place] Work Phone: 10-22-2021 08:38-0400 Heart rate 63 /min Cecilio Reedy Work Phone: [facility] [address] [place] Work Phone: 10-22-2021 08:38-0400 Systolic blood pressure 156 mm[Hg] Cecilio Reedy Work Phone: [facility] [address] [place] Work Phone: 10-22-2021 08:38-0400 Systolic blood pressure 160 mm[Hg] Cecilio Castaneda Hoy Work Phone: [facility] [address] [place] Work Phone: 10-06-2021 00:00-0400 60 1 Cecilio Reedangelito Work Phone: [facility] [address] [place] Work Phone: Comment on above: [id number] Encounters Encounter Date Encounter Type Care Provider Facility Start: 12-26-2024 End: 12-26-2024 ambulatory Cecilio Dumont MD Work Phone: [facility] Work Phone: Start: 12-26-2024 End: 12-26-2024 Patient encounter procedure John Castaneda MD -[facility] Work Phone: Start: 12-24-2024 End: 12-24-2024 Patient encounter procedure Cecilio Castaneda MD -[facility] Work Phone: Start: 12-24-2024 End: 12-24-2024 ambulatory Cecilio Dumont MD Work Phone: [facility] Work Phone: Start: 12-20-2024 End: 12-20-2024 Patient encounter procedure Cecilio Castaneda MD -[facility] Work Phone: Start: 12-20-2024 End: 12-20-2024 Departed Referred Renny Finch DO [facility] Start: 12-20-2024 End: 12-20-2024 ambulatory Cecilio Dumont MD Work Phone: [facility] Work Phone: Start: 12-03-2024 End: 12-03-2024 Patient encounter procedure Cecilio Castaneda MD -[facility] Work Phone: Start: 12-03-2024 End: 12-03-2024 ambulatory Cecilio Dumont MD Work Phone: [facility] Work Phone: Start: 12-03-2024 End: 12-03-2024 ambulatory Anthony R NILL Facility:[facility] Start: 12-03-2024 End: 12-03-2024 Patient encounter procedure Anthony R NILL [facility] [place] Start: 11-28-2024 ambulatory Anthony NILL Facility:[facility] Start: 11-25-2024 ambulatory Anthony NILL Facility:[facility] Start: 11-23-2024 End: 11-23-2024 Patient encounter procedure Cecilio Castaneda MD -Ultrasound [facility] Work Phone: Start: 11-23-2024 End: 11-23-2024 ambulatory Cecilio Dumont MD Work Phone: [facility] Work Phone: Start: 11-21-2024 End: 11-21-2024 Patient encounter procedure Cecilio Castaneda MD -Lab [facility] Start: 11-21-2024 End: 11-21-2024 ambulatory Cecilio Dumont MD Work Phone: [facility] Work Phone: Start: 11-20-2024 End: [...] encounter procedure Cecilio Dumont MD Work Phone: [facility]-CT Scan [facility] [place] Work Phone: Start: 10-16-2024 End: 10-16-2024 ambulatory Cecilio Dumont MD Work Phone: [facility] Work Phone: Start: 09-27-2024 End: 09-27-2024 Patient encounter procedure Cecilio Dumont MD Work Phone: [facility]-XRay [facility] [place] Work Phone: Start: 09-27-2024 End: 09-27-2024 ambulatory Cecilio Dumont Facility:[facility] Start: 09-11-2024 End: 09-11-2024 ambulatory [facility] Work Phone: Start: 09-11-2024 End: 09-11-2024 Patient encounter procedure [facility] Work Phone: Start: 06-12-2024 End: 06-12-2024 ambulatory [facility] Work Phone: Start: 06-12-2024 End: 06-12-2024 Patient encounter procedure [facility] Work Phone: Start: 03-22-2024 End: 03-22-2024 Office outpatient visit 15 minutes Anneliese Garcia MD Work Phone: [facility] Comment on above: Precordial pain (Elayne celestine Dx); Essential hypertension, benign; Diverticulosis; BMI 32.0-32.9,adult; Never smoked tobacco Start: 03-22-2024 End: 03-22-2024 ambulatory [facility] Start: 02-14-2024 End: 02-14-2024 ambulatory [facility] Work Phone: Start: 02-14-2024 End: 02-14-2024 Patient encounter procedure [facility] Work Phone: Start: 01-19-2024 End: 01-20-2024 Non-patient / Non-visit [facility] Work Phone: Start: 12-20-2023 End: 12-20-2023 ambulatory MD Cecilio Dumont Work Phone: [facility] Work Phone: Start: 12-20-2023 End: 12-20-2023 Patient encounter procedure MD Cecilio Dumont Work Phone: [facility] Work Phone: Start: 11-13-2023 End: 11-13-2023 ambulatory MD Cecilio Dumont Work Phone: [facility] Work Phone: Start: 11-13-2023 End: 11-13-2023 Departed Referred MD [facility] Dum[facility] Start: 10-27-2023 End: 10-27-2023 ambulatory [facility] Work Phone: Start: 10-27-2023 End: 10-27-2023 Patient encounter procedure [facility] Work Phone: Start: 09-06-2023 End: 09-06-2023 ambulatory [facility] Work Phone: Start: 09-06-2023 End: 09-06-2023 Patient encounter procedure [facility] Work Phone: Start: 07-12-2023 End: 07-12-2023 Patient encounter procedure [facility] Work Phone: Start: 05-31-2023 (wmnempf/u) [employer] F/U [facility] Start: 05-31-2023 End: 05-31-2023 ambulatory [facility] Other [employer] Other Start: 04-21-2023 (wmnempf/u) [employer] F/U [facility] Start: 04-21-2023 End: 04-21-2023 ambulatory Isabel Missler Other [employer] Other Start: 03-24-2023 End: 03-24-2023 Office outpatient visit 15 minutes Anneliese Garcia MD Work Phone: [facility] Comment on above: Precordial pain (Elayne celestine Dx); Essential hypertension, benign; BMI 34.0-34.9,adult; Encounter to discuss test results Start: 03-16-2023 ([facility]) [employer] Init ial Provider Julia Ayon [facility] Start: 03-16-2023 End: 03-16-2023 ambulatory Julia Ayon Other [facility] [employer] Other Start: 03-14-2023 End: 03-15-2023 ambulatory [facility] Start: 03-10-2023 (wmnempf/u) [employer] [facility] F[facility]U [facility] Start: 03-10-2023 End: 03-10-2023 ambulatory Isabel Missler Other [facility] [employer] Other Start: 02-14-2023 End: 02-15-2023 ambulatory [facility] Start: 01-27-2023 (wmnempf/u) [employer] [facility] F[facility] Start: 01-27-2023 End: 01-27-2023 ambulatory Isabel Missler Other [place] [employer] Other Start: 01-24-2023 Telephone encounter Cecilio Dumont Work Phone: [facility] [address] [place] Work Phone: Start: 01-09-2023 End: 01-09-2023 ambulatory Isabel Missler Other [place] [employer] Other Start: 01-09-2023 Telephone encounter [facility] Start: 01-04-[address] Cecilio Dumont Facility:[id number] Start: 01-03-2023 End: 01-04-2023 Evaluation and management of inpatient MD Cecilio Dumont Work Phone: [facility] [place] [facility] Work Phone: Start: 01-03-2023 End: 01-04-2023 observation encounter MD Cecilio Dumont Work Phone: [facility] Work Phone: Start: 12-16-2022 (WMNEMPNEW) [employer] [facility] Start: 12-16-2022 End: 12-16-2022 ambulatory [facility] Other [employer] Other Start: 12-16-2022 Registered Recurring MD Ladan Dumont Work Phone: [facility] Work Phone: Start: 11-08-2022 End: 11-08-2022 ambulatory MD Cecilio Dumont Work Phone: [facility] Work Phone: Start: 11-08-2022 End: 11-08-2022 Departed Referred MD Cecilio Dumont Work Phone: [facility]-Employee Benefit Screening Start: 08-23-2022 End: 08-23-2022 ambulatory Sharla Strange Other [employer] Other Start: 08-23-2022 Office outpatient vi sit 15 minutes Sharla Strange [facility] Start: 08-16-2022 End: 08-16-2022 ambulatory MD Cecilio Dumont Work Phone: [facility] Work Phone: Start: 08-16-2022 End: 08-16-2022 Patient encounter procedure MD Cecilio Dumont Work Phone: [facility] [place] Work Phone: Start: 08-15-2022 End: 08-16-[address] CECILIO DUMONT . Facility:[facility] Start: 08-08-2022 Office outpatient ne w 30 minutes Sharla Strange [facility] Start: 08-08-2022 End: 08-08-2022 ambulatory MD Cecilio Dumont Work Phone: [facility] Work Phone: Start: 08-08-2022 End: 08-08-2022 Patient encounter procedure MD Cecilio Dumont Work Phone: [facility] Start: 06-20-2022 Chart Update Cecilio Dumont Work Phone: [facility] 250 DO Work Phone: Start: 04-13-2022 End: 04-13-[address] CECILIO DUMONT . Facility: Start: 12-16-2021 End: 12-16-2021 Departed Referred MD Cecilio Dumont Work Phone: [facility]-Employee Benefit Screening Start: 12-09-2021 End: 12-09-2021 Patient encounter procedure MD Cecilio Dumont Work Phone: [facility] Sw[facility] Start: 10-29-2021 Chart Update Cecilio Dumont Work Phone: [facility] [address] [place] Work Phone: Start: 10-27-2021 End: 10-27-2021 Patient encounter procedure MD Cecilio Dumont Work Phone: [facility]-Electrodiagnosti cs Start: 05-04-2021 ([facility] C Vac) [facility] Co vid Vaccine Julia Ayon [facility] Start: 05-04-2021 End: 05-04-2021 amb[address] Other 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 Start: 01-13-2025 Influenza vaccination Influenz a Vaccine (#1) [facility] Start: 12-26-2024 Plain radiography of pelvis XR pelvi s 1-2V [facility] Start: 12-26-2024 X-ray of right knee, four views XR knee RT 4V* [facility] Start: 12-26-2024 XR Knee - right 4 Views [facility] Start: 12-26-2024 XR Pelvis 1 or 2 Views [facility] Start: 12-24-2024 End: 12-24-2024 Urine culture [facility] Start: 12-24-2024 Bacteria identified in Urine by Culture Urine Culture [facility] Start: 12-20-2024 Bacteria identified in Urine by Culture Urine Culture [facility] Start: 12-20-2024 Urine culture [facility] Start: 12-03-2024 Bacteria identified in Urine by Culture Urine Culture [facility] Start: 12-03-2024 Urine culture [facility] Start: 11-20-2024 End: 11-20-2024 Patient encounter procedure [facility] Comment on above: Capsulitis of metata rsophalangeal (MTP) joint of left foot (Primary Dx); Bone spur of left foot; DJD (degenerative joint disease), ankle and foot, left Start: 11-06-2024 End: 11-06-2024 Patient encounter procedure 11/06/2024 3:50 PM EDT Office Visit [facility] [address] [place] [address] Joseph Cobian DPM [address] [address] Arrived [facility] Comment on above: Arrived Start: 01-14-2024 COVID-19 Vaccine ( season) COVID-19 Vaccine ( season) [facility] Start: 03-06-2023 FUV, Provider: Anneliese Garcia, Status: Pen, Time: 1:20 PM FUV, Provider: Anneliese Garcia, Status: Pen, Time: 1:20 PM [facility] 250 DO Work Phone: Start: 01-04-2023 [facility] Start: 01-03-2023 Referral to yarder puncher [facility] Start: 01-03-2023 Hospital admission [facility] Start: 11-08-2022 [facility] Start: 08-16-2022 [facility] Start: 01-28-2022 FUV, Provider: Anneliese Garcia, Status: Pen, Time: 9:20 AM FUV, Provider: Anneliese Garcia, Status: Pen, Time: 9:20 AM [facility] [address] [place] Work Phone: Start: 12-16-2021 End: 12-16-2021 Departed Referred Departed Referred [facility]-Employee Benefit Screening Start: 12-01-2021 Screening for malign ant neoplasm of breast Mammogram [facility] Start: 11-29-2021 NURSEVST, Provider: KATHIA BEARDEN NETTING INSPECTOR 1,[id number], Status: Pen, Time: 1:00 PM NURSEVST, Provider: KATHIA BEARDEN NETTING INSPECTOR 1,[id number], Status: Pen, Time: 1:00 PM -[facility] [address] [place] Work Phone: Start: 06-29-2021 COVID-19 Vaccine (4 - Moderna series) COVID-19 Vaccine (4 - Moderna series) [facility] Start: 2012 Zoster Vaccines (1 of 2) Zoste r Vaccines (1 of 2) [facility] Start: 05-20-2009 MMR Vaccines (1 of 1 - Standard series) MMR Vaccines (1 of 1 - Standard series) [facility] Start: 1992 Screening for malign ant neoplasm of cervix [facility] Start: 1984 DTaP/Tdap/Td Vaccine s (1 - Tdap) DTaP/Tdap/Td Vaccines (1 - Tdap) [facility] Start: 1983 Screening for malign ant neoplasm of cervix [facility] Start: 1980 Hepatitis C screening Hepatiti s C Screening [facility] Start: 1962 HIV screening HIV Screening [facility] Start: 1962 Lipid panel Lipid Panel [facility] Start: 1962 Screening for malign ant neoplasm of colon [facility] Start: 1962 Yearly Adult Physical Yearly A dult Physical [facility] Glucose measurement estimated from glycated hemoglobin [facility] Hemoglobin A1c measurement [facility] Patient referral [facility] Work Phone: Thyrotropin [Units/v olume] in Serum or Plasma [facility] Thyroxine (T4) free index in Serum or Plasma by calculation [facility] Thyroxine measurement [facility] Triiodothyronine (T3 ) [Mass/volume] in Serum or Plasma [facility] Triiodothyronine res in uptake (T3RU) in Serum or Plasma [facility] Immunizations Immunization Date Immunization Notes Care Provider Subhash west 02-26-2024 influenza virus vaccine, unspecified formulation Joseph Cobian DPM Work Phone: [facility] [place] 02-27-2023 influenza, injectabl e, quadrivalent, preservative free Anneliese Garcia MD Work Phone: [facility] Work Phone: 05-04-2021 COVID-19 Moderna Julia Ayon Other [facility] 06-16-2020 Moderna COVID-19 Vaccine 100 MCG/0.5ML Intramuscular Suspension Cecilio M Hoy Work Phone: [facility] 05-19-2020 Moderna COVID-19 Vaccine 100 MCG/0.5ML Intramuscular Suspension Cecilio M Hoy Work Phone: [facility] 01-14-2020 influenza, injectabl e, quadrivalent, preservative free [facility] [place] Work Phone: 04-22-2009 novel [id number], preservative-free, injectable Cecilio M Hoy Work Phone: [facility] [address] [place] Work Phone: Payers Date Payer Category Payer Private Health Insurance [id number] 2022 Managed Care (Private) [facility] [id number] 2022 Unknown 1960 Unknown [id number] 1960 Unknown [id number] 1962 Unknown [id number] 1962 Unknown [id number] 1962 Unknown [id number] 1962 Unknown [id number] .1259 1960 Unknown [id number] [id number] .1259 1960 Unknown [id number] [id number] 1959 Unknown [id number] Self-pay Self Pay [id number] Worker's Compensation [facility] [place] [id number] Social History Date Type Detail Facility Start: 03-24-2023 End: 11-06-2024 Consumes alcohol occasionally Consumes alcohol occasionally [employer] Other Start: 03-24-2023 End: 11-06-2024 Sex Assigned At [facility] Start: 09-30-2021 End: 07-12-2023 Tobacco smoking status NHIS Never smoked tobacco (finding) [facility] Start: 1960 Sex Assigned At Female [facility] Start: 03-24-2023 End: 11-06-2024 Tobacco use and exposure Smokeless tobacco non-user [facility] Work Phone: Start: 03-24-2023 End: 03-22-2024 Alcohol intake Lifetime non-drinker (finding) [facility] Work Phone: Start: 1960 Sex Assigned At Not on file [facility] Work Phone: Start: 03-14-2023 End: 03-24-2023 Exposure to SARS-CoV-2 (event) Not sure [facility] Start: 08-26-2009 End: 06-12-2024 Sex Female (finding) [facility] Tobacco smoking stat us NHIS Tobacco smoking consumption unknown [facility] Start: 11-06-2024 End: 11-20-2024 Alcoholic beverage intake Current drinker of alcohol (finding) [facility] Tobacco smoking status Never [facility] [place] Sexual Orientation [facility] [place] Medical Equipment Procedure Code Equipment Code Equipment Origin al Text Equipment Identifier Dates [id number] Start: 02-24-2020 End: 03-22-2024 Pen Needle, Diab [...] Facility 01-04-2023 Functional status [facility] at [facility] Work Phone: 01-03-2023 Functional status Patient at [facility] Work Phone: Mental Status Date Assessment Result Facility 01-04-2023 Cognitive function Cognitive Sta tus Patient at [facility] Work Phone: 01-03-2023 Cognitive function Cognitive Sta tus Patient at [facility] Work Phone: Clinical Notes 05-04-2021 to 12-26-2024 Note Date & Type Note Facility 12-26-2024 Evaluation note Diagnosis Onset Date Resolution Primary osteoarthritis of right knee acute December 26 7:28am [facility] Work Phone: 1(601) 700-887707-22-2025 NoteGeneral Surgery Office/Clinic Note Chief Complaint consultation [...] no dysphagia; patient reports EGD/colonoscopy done at [facility] 5 years ago, reportedly with just diverticulosis; [...] E&M of New Patient Moderate 45-59 Min 84792 2. Left flank pain (R10.9: Unspecified abdominal pain) see # 1 Ordered: CT Abdomen/Pelvis w/ Contrast E&M of New Patient Moderate 45-59 Min 13740 3. Nausea (R11.0: Nausea) see # 1 Ordered: CT Abdomen/Pelvis w/ Contrast E&M of New Patient Moderate 45-59 Min 63259 4. Abdominal bloating (R14.0: Abdominal distension (gaseous)) see # 1 Ordered: CT Abdomen/Pelvis w/ Contrast E&M of New Patient Moderate 45-59 Min 37149 5. Frequent loose stools (R19.7: Diarrhea, unspecified) see # 1 Ordered: CT Abdomen/Pelvis w/ Contrast E&M of (more content not included)...[facility]:Result Comment: Electronically Signed By: ZAYRA PACHECO, Anthony Barrera\Date and Time Signed: 12/03/24 09:16 [id number] Radiology Diagnostic study note [facility] Main [place] [address] [place] [address] Ultrasound Report Signed Patient: Nancy Hooper MR#: [id number] : 1960 Acct:[id number] Age/Sex: 64 / F ADM Date: 5 Loc: Room: Type: [facility] Attending Dr: Cecilio Dumont MD Ordering Provider: [...] Degroot M.D. 11/23/2024 5:13 PM Dictation Location: [place] [address] Tech: Ramila Su Transcribed By: ADAM 11/23/241712 Dictated By: Shai Degroot II, MD 11/23/241711 Signed By: 11/23/241712 [facility] Work Phone: 1(672) 292-347807-09-2025 History of Present illness Narrative* Joseph Cobian [...] 10/16/24 CT/CT foot LT wo con: M79.672 ([id number]) CT/CT ankle LT wo con: M79.672 CT [...] midfoot exostectomy in the future Discussed possible ihrl-nqb-prkmybg arch supports and patient may consider and continues ibuprofen and ice p.r.n. and may consider walking boot if not improved in the next few weeks Joseph Cobian DPM documented in this encounter[facility] [id number] History of Present illness Narrative* Joseph Cobian, [...] 10/16/24 CT/CT foot LT wo con: M79.672 ([id number]) CT/CT ankle LT wo con: M79.672 CT [...] Patient may continue with conservative treatments including zuep-cll-ilpbrvd anti- inflammatories and other treatments suggested today. Patient may want to be s cheduled for surgical intervention in the near future. Discussed possibly left midfoot exostectomy in the future Joseph Cobian DPM documented in this encounterFitzgibbon [id number] Radiology Diagnostic study [facility] [place] [address] CT Scan Report Signed Patient: Nancy Hooper MR#: [id number] : 1960 Acct:[id number] Age/Sex: 64 / F ADM Date: 5 Loc: CT Room: Type: [facility] Attending Dr: Cecilio Dumont MD Copies to: Cecilio Dumont MD~ Ordering Provider: Cecilio Dumont MD Date of Service: 10/16/24 CT/CT foot LT wo con: M79.672 ([id number]) CT/CT ankle LT wo con: M79.672 CT [...] 4:27 PM Dictation Location: [id number] Transcribed By: [facility] 10/16/24 1627 Dictated By: Shai Degroot II, MD 10/16/24 1601 Signed By: 10/16/24 1627 [facility] Work Phone: 1(939) 265-568904-30-2025 Evaluation note* Diagnosis Onset Date Resolution Status Admit Date Arthritis acute September 11 8:10am GERD (gastroesophageal reflu x disease) acute September 11, 2024 8:10am Obesity, Class I, BMI 30-34.9 acute September 11, 2024 8:10am Prediabetes acute September 11, 025 8:10am Stroke acute September 11 8:10am Encounter for weight management noneactive September 11, 2024 8:10am [facility] Work Phone: 1(211) 421-269811-08-2024 History of Present illness Narrative* Anneliese Garcia [...] exam, discussion and plan. documented in this [facility] Work Phone: 1(815) 181-388611-08-2024 Instructions* Patient Instructions* Regina Nieto LPN - [...] exercise. PRN Same medications [facility]: 1(448) 361-939701-17-2024 Evaluation note* Encounter Date Diagnosis Assessment Notes [...] Encounter for weight management (ICD-10 - Z76.89) [employer] Other 12-08-2023 Evaluation note* Encounter Date Diagnosis [...] constipation. Not currently using any type of xhgf-gnz-sctnqrg stool softener or fiber supplement. She continues [...] Encounter for weight management (ICD-10 - Z76.89) [employer] Other 11-10-2023 History of Present illness Narrative* [...] to discuss test results [facility] Work Phone: 1(493) 141-331511-10-2023 Instructions* Patient Instructions* Ino Torres MA - [...] time of your visit. [facility] Work Phone: 1([phone]) 480-201011-02-2023 Evaluation note* Encounter Date Diagnosis Assessment Notes [...] start small to build motivation and momentum [employer] Other 10-27-2023 Evaluation note* Encounter Date Diagnosis [...] Encounter for weight management (ICD-10 - Z76.89) [employer] Other 09-15-2023 Evaluation note* Encounter Date Diagnosis [...] cancer she had her surgery performed at [facility]. Reinforced that it is is responsible for [...] Encounter for weight management (ICD-10 - Z76.89) [employer] Other 08-23-2023 History and physical note Author Nabil Baker [facility] January 04, 2023 2:58am Note Date/Time January 03, 2023 6: 25pm [facility] [address] [place] [address] Hospitalist H&P Signed Patient: Nancy Hooper MR#: [id number] : 1960 Acct:[id number] Age/Sex: 62 / F Adm Date: 3 Loc: Room: [address] [place] [address] Type: ADM INOo Attending Dr: Nabil Baker [...] care Discussed with:?the medical team, the patient [facility] Medical History Benign tumor removed rt neck [...] % (Auto) 15.0 % (.) 01/03/23 10:20 [place] % (Auto) 8.4 % (.) 01/03/23 10:20 Eos % (Auto) 0.7 % (.) 01/03/23 10:20 Baso % (Auto) 1.0 % (.) 01/03/23 10:20 Nucleat RBC Rel Count 0.1 /100 WBC (0-0.5) 01/03/23 10:20 Neut # (Auto) 6.2 x10E3/uL (1.8-7.7) 01/03/23 10:20 Lymph # (Auto) 1.2 x10E3/uL (1.00-4.8) 01/03/23 10:20 [place] # (Auto) 0.7 x10E3/uL (0.0-0.8) 01/03/23 10:20 [...] pH 6.5 (5.0-9.0) 01/03/23 15:03 Ur Specific [place] 1.024 (1.001-1.030) 01/03/23 15:03 Urine Protein Negative [...] signed by Nabil Baker MD> 01/04/[address] [facility] Work Phone: 1([phone]) 676-640308-04-2023 Evaluation note* Encounter Date Diagnosis Assessment Notes [...] Strongly encouraged to take advantage of our teaching specialists available at [facility] that can help work around limitations. Each [...] Dec, Impaired fasting glucose (ICD-10 - R73.01) [employer] Other 04-11-2023 Evaluation note* Encounter Date Diagnosis [...] Aug, Right wrist pain (ICD-10 - M25.531) [employer] Other 03-27-2023 Evaluation note* Encounter Date Diagnosis [...] Jul, Right wrist pain (ICD-10 - M25.531) [employer] Other 12-21-2021 Evaluation note* Encounter Date Diagnosis Assessment Notes Treatment Notes Treatment Clinical Notes Apr, Encounter for immunization (ICD-10 - Z23) Patient presents for COVID-19 vaccination BOOSTER. Pre-screening form answers evaluated with patient. Patient denies current illness or allergic reaction to component of COVID-19 vaccine. Patient provided with current copy of EUA. [employer] Other Consult note Author Kajal Mccauley [facility] January 04, 2023 4:27pm Note Date/Time January 04, 2023 4: 24pm [facility] [address] [place] [address] Cardiology Consult Note Signed Patient: Nancy Hooper MR#: [id number] : 1960 Acct:[id number] Age/Sex: 62 / F Adm Date: 3 Loc: Room: [address] [place] [address] Type: ADM INOo Attending Dr: Nabil Baker MD Copies to: MD Kajal Zelaya MD, [facility] Nabil Baker MD~ Cardiology HPI History of Present Illness Consult Date: 01/04/23 Reason for Consult: Chest pain HPI: Ms. Hooper is a 62 year old female who works in [place] at [employer] and who is being seen at the [...] All other review of system essentially unremarkable [facility] Medical History Benign tumor removed rt neck [...] (primary) hypertension Documented By: Kajal Mccauley MD, [facility] 3 1620 Signed By: <Electronically signed by MD PETTY Mccauley> 01/04/[address] [facility] Work Phone: Discharge summary Author Nabil Baker [facility] January 05, 2023 1:20am Note Date/Time January 04, 2023 3: 34pm [facility] [address] [place] [address] Discharge Summary Signed Patient: Nancy Hooper MR#: [id number] : 1960 Acct:[id number] Age/Sex: 62 / F Adm Date: 3 Loc: Room: [address] [place] [address]: Nabil Baker MD Copies to: [...] Appearance Clear, Urine pH 6.5, Ur Specific [place] 1.024, Urine Protein Negative, Urine Glucose (UA) [...] signed by Nabil Baker MD> 01/05/23 0120 [facility] Work Phone: Evaluation + Plan note No data available for this section [facility] [place] Evaluation noteNo assessment information available [facility] Work Phone: Evaluation note* Diagnosis Onset Date Resolution Status Chest pain acute Hypertension chronic [facility] Work Phone: Evaluation noteNo InformationNort Sk[employer] Other Evaluation note* Diagnosis Precordial pain- Primary Essential hypertension, benign BMI 34.0-34.9,adult Encounter to discuss test results Other specified counseling documented in this encounter [facility] Work Phone: Evaluation note* Diagnosis Onset Date Resolution Status Arthritis acute GERD (gastroesophageal reflux disease) acute Obesity, Class I, BMI 30-34.9 acute Prediabetes acute Stroke acute Encounter for weight management noneactive Arthritis acute GERD (gastroesophageal reflux disease) acute Obesity, Class I, BMI 30-34.9 acute Prediabetes acute Stroke acute Encounter for weight management noneactive [facility] Work Phone: Evaluation note* Diagnosis Onset Date Resolution Status Arthritis acute GERD (gastroesophageal reflux disease) acute Obesity, Class I, BMI 30-34.9 acute Prediabetes acute Stroke acute Encounter for weight management noneactive [facility] Work Phone: Evaluation note* Diagnosis Precordial pain- Primary Essential hypertension, benign Diverticulosis Diverticulosis of colon (without mention of hemorrhage) BMI 32.0-32.9,adult Never smoked tobacco documented in this encounter [facility] Work Phone: Evaluation note* Diagnosis Onset Date Resolution Status Admit Date Arthritis acute June 12, 2024 8:06am GERD (gastroesophageal reflux disease) acute June 12 8:06am Obesity, Class I, BMI 30-34.9 acute June 12 8:06am Prediabetes acute June 12, 2024 8:06am Stroke acute June 12, 2024 8:06am Encounter for weight management noneactive June 12 8:06am [facility] Work Phone: Evaluation note* Diagnosis Onset Date Resolution Status Admit Date Arthritis acute September 11 8:10am GERD (gastroesophageal reflu x disease) acute September 11, 2024 8:10am Obesity, Class I, BMI 30-34.9 acute September 11, 2024 8:10am Prediabetes acute September 11, 025 8:10am Stroke acute September 11 8:10am Encounter for weight management noneactive September 11, 2024 8:10am [facility] Work Phone: Evaluation note* Diagnosis DJD (degenerative joint disease), ankle and foot, left- Primary Bone spur of left foot Capsulitis of metatarsophalangeal (MTP) joint of left foot documented in this encounter [facility] Healthcare[facility] note* Diagnosis Capsulitis of metatarsophalangeal (MTP) joint of left foot- Primary Bone spur of left foot DJD (degenerative joint disease), ankle and foot, left [facility] Diagnosis Onset Date Resolution Status Admit Date Primary osteoarthritis of ri ght knee acute December 26 7:28am [facility] Work Phone: History and physical note Author Nabil Baker [facility] January 04, 2023 2:58am Note Date/Time January 03, 2023 6: 25pm [facility] [address] [place] [address] Hospitalist H&P Signed Patient: Nancy Hooper MR#: [id number] : 1960 Acct:[id number] Age/Sex: 62 / F Adm Date: 3 Loc: Room: [address] [place] [address] Type: ADM INOo Attending Dr: Nabil Baker [...] care Discussed with:?the medical team, the patient [facility] Medical History Benign tumor removed rt neck [...] % (Auto) 15.0 % (.) 01/03/23 10:20 [place] % (Auto) 8.4 % (.) 01/03/23 10:20 Eos % (Auto) 0.7 % (.) 01/03/23 10:20 Baso % (Auto) 1.0 % (.) 01/03/23 10:20 Nucleat RBC Rel Count 0.1 /100 WBC (0-0.5) 01/03/23 10:20 Neut # (Auto) 6.2 x10E3/uL (1.8-7.7) 01/03/23 10:20 Lymph # (Auto) 1.2 x10E3/uL (1.00-4.8) 01/03/23 10:20 [place] # (Auto) 0.7 x10E3/uL (0.0-0.8) 01/03/23 10:20 [...] pH 6.5 (5.0-9.0) 01/03/23 15:03 Ur Specific Bill[place] 1.024 (1.001-1.030) 01/03/23 15:03 Urine Protein Negative [...] 1 Documented By: Nabil Baker MD 01/03/23 3741 Signed By: <Electronically signed by Nabil Baker MD> 01/04/[address] [facility] Work Phone: Hisqngj general Narrative - Reported* Type Description Date Medical History HTN Medical History diverticulitis Medical History Anxiety Surgical History Collarbone tumor removed Surgical History Knee surgery X2 Surgical History Breast Reduction Hospitalization History See Above Hospitalization History Pneumonia Hospitalization History Diverticulitis Hospitalization History Paralegic Migraines [facility] [employer] Other Histrzj general Narrative - Reported* Type Description Date Medical History HTN Medical History diverticulitis Medical History Anxiety Medical History GERD Medical History Kidney stones Medical History Migraine headache Medical History Stroke 2009 Surgical History Collarbone tumor removed Surgical History Knee surgery X2 Surgical History Breast Reduction Hospitalization History See Above Hospitalization History Pneumonia Hospitalization History Diverticulitis Hospitalization History Paralegic Migraines [facility] Other Hisjgld general Narrative - Reported* Type Description Date Medical History HTN Medical History diverticulitis Medical History Anxiety Medical History GERD Medical History Kidney stones Medical History Migraine headache Medical History Stroke 2009 Surgical History Collarbone tumor removed Surgical History Knee surgery X2 Surgical History Breast Reduction Hospitalization History See Above Hospitalization History Pneumonia Hospitalization History Diverticulitis Hospitalization History Paralegic Migraines Hospitalization History [facility] Chest pain [facility] Other Hospital Discharge instructions No data available for this section [facility] [place] Progress note No data available for this section [facility] [place] Reason for referral (narrative)* Consultation (Routine) - Authorized Specialty Diagnoses / Procedures Referred By Frederick murillo Referred To Contact Cardiology Diagnoses Precordial pain Essential hypertension, benign Procedures Follow Up In Cardiology Anneliese Garcia MD [address] [facility] 2, [address] [address] Anneliese Garcia MD 703 [facility] 2, [address] [address] Referral ID Status Reason Start Date Expiration Date V isits Requested Visits Authorized [id number] Authorized 03/24/2023 03/23/[address] [facility] Work Phone: Reason for referral (narrative)No [facility] for [facility] Reason for visit Narrative* Consultation (Routine) - Closed Specialty Diagnoses / Procedures Referred By Contac t Referred To Contact Podiatry Diagnoses Pain in left foot Procedures [place] OFFICE/OUTPATIENT NEW LOW MDM 30 MINUTES Cecilio Dumont MD [address] [place] [address] Phone: tel: fax: Joseph Cobian DPM [address] [address] Phone: tel: fax: Referral ID Status Reason Start Date Expiration Date Visits Re quested Visits Authorized [id number] Closed 10/22/2024 01/20/2025 1 1 [facility] Healthcare Summary Purpose Family History No [...] Visit Chest pain Hypertension Chief Complaint [employer] follow up Reason for Visit Arthritis GERD [...] DATE CREATED AUTHOR AUTHOR'S ORGANIZ ATION 01/07/2023 [facility] DATE CREATED AUTHOR AUTHOR'S ORGANIZ ATION 03/19/2023 [facility] DATE CREATED AUTHOR AUTHOR'S ORGANIZ ATION 03/24/2024 [facility] DATE CREATED AUTHOR AUTHOR'S ORGANIZ ATION 11/24/2024 [facility] EPIC DATE CREATED AUTHOR AUTHOR'S ORGANIZ ATION 12/05/2024 [facility] DATE CREATED AUTHOR AUTHOR'S ORGANIZ ATION 12/28/2024 [facility] REASON FOR VISIT (unrecogniz ed section and content) Reason Comments Hospital Follow-up Reason Comments Annual Exam Specialty Diagnoses / Procedures Referred By Frederick murillo Referred To Contact Cardiology Diagnoses Precordial pain Essential hypertension, benign Procedures Follow Up In Cardiology Anneliese Garcia MD [address] [address], [address] [address] Phone: tel: fax: Anneliese Garcia MD 703 [facility] 2, [address] [place] [address] Phone: tel: fax: Referral ID Status Reason Start Date Expiration Date V isits Requested Visits Authorized [id number] Authorized 03/24/2023 03/23/2024 1 1 Reason Comments [...] Primary Care Provider Active Renny Walton DO [facility] Attending Provider Active Team Status: [...] Primary Care Provider, Attending Pr ovider Active Boatswain Mate Relationship Specialty Start Date End Date Cecilio Dumont MD [address] [facility] [place] [address] PCP - General 05/15/99 Team Status: Inactive [...] End: November 13, 2023 Renny ALVARADO DO [facility] Attending Provider Active Start: November [...] February 14, 2024 End: February 14, 2024 Boatswain Mate Relationship Specialty Start Date End Date Cecilio Dumont MD [address] [place] [address] PCP - General 05/15/99 Team Status: Inactive [...] October 16, 2024 End: October 16, 2024 Boatswain Mate Relationship Specialty Start Date End Date Cecilio Dumont MD [address] [place] [address] PCP - General Family Medicine 11/06/24 Boatswain Mate Relationship Specialty Start Date End Date Cecilio Dumont MD [address] [place] [address] PCP - General Family Medicine 11/06/24 Boatswain Mate Relationship Specialty Start Date End Date Cecilio Dumont MD [address] [place] [address] PCP - General Family Medicine 11/06/24 Team [...] End: December 20, 2024 Renny ALVARADO DO [facility] Attending Provider Active Start: December [...] Provider Active Start: December 26, 2024 John Bensno II, MD Attending Provider Active Start: December [...] BE BASED ON THE PRIMARY CLINICAL RECORDS. [facility] [employer] [facility]. provides no warranty or guarantee of the accuracy or completeness of information in this document.
--- NOTE | 2024-12-30 09:00 | CM.NOTE ---
Rounds made with Dr. Ross, pt status clarified (inpatient status). Pt continues with abdominal pain. Pt will continue with Full liquid diet as tolerated. No discharge today. Dr. Ross also discussed with pt need for outpatient colonoscopy Feb/Mar. Pt does see Dr. Breaux for General surgery.
--- NOTE | 2024-12-30 09:28 | PM.HP ---
HPI H&P: HPI History of Present Illness Chief complaint: ACUTE DIVERTICULITIS Narrative: Mrs. Hooper is a 64-year-old female who came in with 3 days history of worsening pain and discomfort in the left mid and lower abdomen associated with nausea, no vomiting, low-grade fever. No hematemesis or melena. No prior recent colonoscopy. CAT scan showed evidence of acute descending colitis. White count was elevated. Patient also reported having chest pain, chest discomfort, no shortness of breath, no cough Opioid HPI Opioid Management Most Recent Pain and Opioid Data: Last Pain Scale 6 Today, 08:40 Last Pain Assessment Today, 04:00 Last ORT Total Score 0 Today, 03:08 Last ORT Risk Category Low Risk Today, 03:08 PFSH PFS Medical History (Updated 12/30/24 @ 09:29 by Magdaleno Ross MD) Diverticulitis ?K57.92 - Diverticulitis of intestine, part unspecified, without perforation or abscess without bleeding (ICD-10) Sebaceous cyst ?L72.3 - Sebaceous cyst (ICD-10) Mitral valve prolapse ?I34.1 - Nonrheumatic mitral (valve) prolapse (ICD-10) Migraine ?G43.909 - Migraine, unspecified, not intractable, without status migrainosus (ICD-10) TIA (transient ischemic attack) ?G45.9 - Transient cerebral ischemic attack, unspecified (ICD-10) Surgical History Hx of breast reduction, elective ?Z98.890 - Other specified postprocedural states (ICD-10) H/O knee surgery ?Z98.890 - Other specified postprocedural states (ICD-10) Family History Brother Family history of CHF (congestive heart failure) Family history of myocardial infarction Mother Family history of COPD (chronic obstructive pulmonary disease) Family history of hypertension Father Family history of cancer Family history of stroke Social History Within the past year, how often did you have a drink containing alcohol: monthly or less Within the past year, how many standard drinks containing alcohol did you have on a typical day: 1 or 2 Within the past year, how often did you have six or more drinks on one occasion: less than monthly Total score: 1 Score interpretation: A score less than 3 is consistent with normal alcohol consumption. 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[facility] Highest level of school completed/degree received: Bachelor's degree Are you now , , , , never or living with a partner: In a typical week, how many times do you talk on the telephone with family, friends, or neighbors: 3 or more times per week How often do you get together with friends or relatives: 3 or more times per week How often do you attend congregational or jew services: 1-3 times per year Little interest or pleasure in doing things: not at all Feeling down, depressed, or hopeless: not at all Feel stressed/tense/nervous/anxious/difficulty sleeping: to some extent Do you think of yourself as: straight/heterosexual Gender Identity: female Meds Home Medications and Allergies Home Medications ?Medication ?Instructions ?Recorded ?Confirmed ?Type aspirin 81 mg capsule 81 mg PO DAILY 01/19/24 12/29/24 History carvedilol 12.5 mg tablet 12.5 mg PO Q12H 01/19/24 01/19/24 History hydrochlorothiazide 12.5 mg tablet 12.5 mg PO DAILY 01/19/24 12/29/24 History ibuprofen 800 mg tablet 800 mg PO Q8H PRN fever or pain 01/19/24 12/29/24 History lisinopril 40 mg tablet 40 mg PO DAILY 01/19/24 12/29/24 History pantoprazole 40 mg tablet,delayed 40 mg PO DAILY 01/19/24 01/19/24 History release Allergies Allergy/AdvReac Type Severity Reaction Status Date / Time topiramate (From Topamax) Allergy Severe Vomiting Verified 12/29/24 21:11 Penicillins Allergy Mild Hives Verified 12/29/24 21:11 sulfamethoxazole (From Allergy Mild Hives Verified 12/29/24 21:11 Bactrim) trimethoprim (From Bactrim) Allergy Mild Hives Verified 12/29/24 21:11 azithromycin Allergy Unknown Unknown Verified 12/29/24 21:11 doxycycline Allergy Unknown Unknown Verified 12/29/24 21:11 erythromycin base Allergy Unknown Unknown Verified 12/29/24 21:11 amoxicillin AdvReac Mild Hives Verified 12/29/24 21:11 cefuroxime (From Ceftin) AdvReac Mild Hives Verified 12/29/24 21:11 morphine AdvReac Mild Redness of Verified 12/29/24 21:11 Skin Exam Narrative Exam Narrative: [pt is awake and alert. oriented to place, time and person, central obesity HEENT: [place] conjunctiva and NL buccal mucosa Neck: Supple, no tenderness Endocrine: No Thyromegaly. Vascular: No JVD or carotid bruit. Lymphatic: No cervical lymphadenopathy. Chest: CTA no DTP. Heart RRR, no extra sound or murmur. Abd: Soft, moderate tenderness in the left mid and lower abdomen. No guarding, no rebound. LE: No cyanosis or clubbing, no varices or edema. Neuro: A A O. Nl speech, comprehension and attention. Nl and symetrical motor and tone examination through out. []] Constitutional Vital Signs, click to edit/add: Last Vital Signs Temp 98.2 F 12/30/24 07:22 Pulse 68 12/30/24 07:22 Resp 18 12/30/24 07:27 BP 138/75 12/30/24 07:22 Pulse Ox 96 12/30/24 07:22 O2 Del Method Room Air 12/30/24 07:22 Results Labs Labs: Short CBC 12/29/24 12/30/24 Range/Units 21:08 05:09 WBC 19.1 H 16.5 H (4.0-11.0) 10^3/uL Hgb 14.5 12.6 (12.0-16.0) g/dL Hct 43.2 38.1 (36.0-48.0) % Plt Count 310 241 (150-450) 10^3/uL BMP 12/29/24 12/30/24 21:08 05:09 Sodium 138 140 Potassium 3.5 3.9 Chloride 107 111 H Carbon Dioxide 25.7 24.9 BUN 26.0 H 25.0 H Creatinine 0.79 0.54 L Glucose 149 H 104 Calcium 9.3 8.1 L Liver Function 12/29/24 12/30/24 Range/Units 21:08 05:09 Total Bilirubin 0.3 0.7 (0.2-1.0) mg/dL AST 9 L 6 L (15-37) U/L ALT 20 17 (14-59) U/L Alkaline Phosphatase 79 61 (46-116) U/L Albumin 3.5 2.7 L (3.4-5.0) g/dL Urine 12/29/24 Range/Units 21:29 Urine Color Lt. yellow (YELLOW) Urine Clarity Clear (CLEAR) Urine pH 5.5 (5.0-9.0) Ur Specific [place] 1.025 (1.005-1.025) Urine Protein Negative (NEG/TRACE) mg/dL Urine Glucose (UA) Negative (NEGATIVE) mg/dL Assessment and Plan Assessment and Plan (1) Sepsis: Plan Sepsis present on admission. Acute diverticulitis. I had accepted to admit patient to the medical floor. Sepsis protocol was followed including blood work, blood culture, lactic acid, IV fluid infusion and initiation of antibiotic. Monitor white count. Monitor abdominal pain and tenderness Recommend colonoscopy in 6 weeks Chest pain and discomfort EKG is nondiagnostic. CT of the chest is negative for any acute intrathoracic abnormalities Could be related to sepsis Elevated D-dimer CTA is negative for PE. Likely secondary to sepsis and active infection No clinical evidence to suggest DVT in lower extremities. Hypertension Resume preadmission home medication DVT prophylax Lovenox SQ Chronic medical conditions not listed above, incidental findings seen on labs and imaging. These would need to be addressed. Could be addressed when time and condition are appropriate. Could be addressed in the outpatient setting by PCP collaboration with other needed outpatient providers.
[2024-12-30] MEDS: ENOXAPARIN SODIUM 40 MG/0.4 ML SYRINGE SUBQ (10:19)
[2024-12-30] MEDS: ACETAMINOPHEN 325 MG TABLET 650 MG PO (11:14)
[2024-12-31] MEDS: HYDROMORPHONE HCL 0.5 MG/0.5 ML SYRINGE IVP (00:36)
[2024-12-31] MEDS: METRONIDAZOLE/SODIUM CHLORIDE 500 MG/100 ML PREMIX 100 MG IV ×3 (00:36→16:19)
[2024-12-31 03:33] VITALS: BP 108/67; PULSE 65; TEMP 36.8; O2SAT 94
[2024-12-31] MEDS: ASPIRIN 81 MG TAB.CHEW PO (08:38)
[2024-12-31] MEDS: CARVEDILOL 12.5 MG TABLET PO ×2 (08:38→21:14)
[2024-12-31] MEDS: KETOROLAC TROMETHAMINE 30 MG/ML VIAL 15 MG IVP ×3 (08:38→23:16)
[2024-12-31] MEDS: PANTOPRAZOLE SODIUM 40 MG TABLET.DR PO (08:38)
[2024-12-31] MEDS: LISINOPRIL 10 MG TABLET PO ×2 (08:38→21:14)
[2024-12-31] MEDS: ENOXAPARIN SODIUM 40 MG/0.4 ML SYRINGE SUBQ (08:39)
[2024-12-31] MEDS: 0.9 % SODIUM CHLORIDE 250 ML 10 ML IV (08:39)
--- NOTE | 2024-12-31 08:40 | CM.NOTE ---
Rounds made with Dr. Love, pt continues to have abdominal pain. Pt does state it is better now around 5 on scale 1-10. Dr. Ross will advance pt to regular diet. No discharge today.
[2024-12-31 08:49] VITALS: BP 129/67; PULSE 73; TEMP 36.9; O2SAT 92
--- NOTE | 2024-12-31 10:49 | PM.PN ---
Progress Note: Subjective Subjective Interval history: Patient is feeling better. Less pain and discomfort in the left mid to lower abdomen. No bowel movement. No diarrhea. No hematemesis or melena Exam Narrative Exam Narrative: [pt is awake and alert. oriented to place, time and person, central obesity HEENT: [place] conjunctiva and NL buccal mucosa Neck: Supple, no tenderness Endocrine: No Thyromegaly. Vascular: No JVD or carotid bruit. Lymphatic: No cervical lymphadenopathy. Chest: CTA no DTP. Heart RRR, no extra sound or murmur. Abd: Soft, mild tenderness in the left mid and lower abdomen. No guarding, no rebound. LE: No cyanosis or clubbing, no varices or edema. Neuro: A A O. Nl speech, comprehension and attention. Nl and symetrical motor and tone examination through out. []] Constitutional Vital Signs, click to edit/add: Last Vital Signs Temp 98.4 F 12/31/24 08:49 Pulse 73 12/31/24 08:49 Resp 18 12/31/24 08:49 BP 129/67 12/31/24 08:49 Pulse Ox 92 L 12/31/24 08:49 O2 Del Method Room Air 12/31/24 08:49 Progress Note: A&P Assessment and Plan (1) Sepsis: (2) Acute diverticulitis of intestine: (3) HTN (hypertension): Plan Sepsis present on admission. Acute diverticulitis. I had accepted to admit patient to the medical floor. Sepsis protocol was followed including blood work, blood culture, lactic acid, IV fluid infusion and initiation of antibiotic. Patient is currently on a combination of Cipro and metronidazole Monitor white count. Monitor abdominal pain and tenderness Recommend colonoscopy in 6 weeks Chest pain and discomfort EKG is nondiagnostic. CT of the chest is negative for any acute intrathoracic abnormalities Could be related to sepsis Elevated D-dimer CTA is negative for PE. Likely secondary to sepsis and active infection No clinical evidence to suggest DVT in lower extremities. Hypertension Resume preadmission home medication DVT prophylax Lovenox SQ Chronic medical conditions not listed above, incidental findings seen on labs and imaging. These would need to be addressed. Could be addressed when time and condition are appropriate. Could be addressed in the outpatient setting by PCP collaboration with other needed outpatient providers.
[2024-12-31] MEDS: CIPROFLOXACIN IN 5 % DEXTROSE 400 MG/200 ML PREMIX 200 MG IV ×2 (11:28→23:14)
[2024-12-31 16:18] VITALS: BP 143/80; PULSE 65; TEMP 36.8; O2SAT 96
[2024-12-31 20:00] VITALS: BP 132/67; PULSE 69; TEMP 36.7; O2SAT 96
[2025-01-01] VITALS (7 sets, daily range): BP systolic 104–165; BP diastolic 64–78; PULSE 60–69; TEMP 36.6–36.9; O2SAT 92–97
[2025-01-01] MEDS: METRONIDAZOLE/SODIUM CHLORIDE 500 MG/100 ML PREMIX 100 MG IV ×4 (00:25→23:48)
[2025-01-01 05:36] LABS: Hematocrit 38.1 % (36.0-48.0); Hemoglobin 12.8 g/dL (12.0-16.0); Mean Corpuscular HGB Conc 33.6 g/dL (29.9-35.2); Mean Corpuscular Hemoglobin 30.2 pg (26.7-34.0); Mean Corpuscular Volume 89.9 fL (81.0-99.0); Platelet Count 236 10^3/uL (150-450); Red Blood Count 4.24 10^6/uL (4.20-5.40); White Blood Count 13.6 10^3/uL (4.0-11.0)
[2025-01-01 05:52] LABS: Alanine Aminotransferase 15 U/L (14-59); Albumin Globulin Ratio 0.6; Albumin Level 2.6 g/dL (3.4-5.0); Alkaline Phosphatase 65 U/L (46-116); Anion Gap 11.1; Aspartate Amino Transferase 7 U/L (15-37); Blood Urea Nitrogen 17.0 mg/dL (7.0-18.0); Calcium 8.7 mg/dL (8.5-10.1); Carbon Dioxide 27.7 mmol/L (21.0-32.0); Chloride 106 mmol/L (98-107); Estimated GFR (African America >60 (>=60 mL/min/1.73m^2); Estimated GFR (Non-African Ame >60 (>=60 mL/min/1.73m^2); Globulin 4.2 g/dL; Glucose 110 mg/dL (74-106); Potassium 3.8 mmol/L (3.5-5.1); Sodium 141 mmol/L (136-145); Total Protein 6.8 g/dL (6.4-8.2)
--- NOTE | 2025-01-01 08:05 | CM.NOTE ---
Rounds made with Dr. Ross, discussed with pt plan of care. One more day of IV antibiotics with possible discharge to home tomorrow. Pt's pain is better today and has increased appetite.
[2025-01-01] MEDS: PANTOPRAZOLE SODIUM 40 MG TABLET.DR PO (08:09)
[2025-01-01] MEDS: ASPIRIN 81 MG TAB.CHEW PO (08:09)
[2025-01-01] MEDS: CARVEDILOL 12.5 MG TABLET PO ×2 (08:10→20:55)
[2025-01-01] MEDS: LISINOPRIL 10 MG TABLET PO ×2 (08:10→20:55)
[2025-01-01] MEDS: ENOXAPARIN SODIUM 40 MG/0.4 ML SYRINGE SUBQ (08:10)
--- NOTE | 2025-01-01 09:31 | PM.PN ---
Progress Note: Subjective Subjective Interval history: Patient is feeling better. Less pain and discomfort in the left mid to lower abdomen. No bowel movement. No diarrhea. No hematemesis or melena When she came in, patient rated her pain as 9-10 on a scale of 10. Today she is rating her pain as 4 on a scale of 10. Exam Narrative Exam Narrative: [pt is awake and alert. oriented to place, time and person, central obesity HEENT: [place] conjunctiva and NL buccal mucosa Neck: Supple, no tenderness Endocrine: No Thyromegaly. Vascular: No JVD or carotid bruit. Lymphatic: No cervical lymphadenopathy. Chest: CTA no DTP. Heart RRR, no extra sound or murmur. Abd: Soft, mild tenderness in the left mid and lower abdomen. No guarding, no rebound. LE: No cyanosis or clubbing, no varices or edema. Neuro: A A O. Nl speech, comprehension and attention. Nl and symetrical motor and tone examination through out. []] Constitutional Vital Signs, click to edit/add: Last Vital Signs Temp 98.1 F 01/01/25 07:05 Pulse 68 01/01/25 07:05 Resp 18 01/01/25 07:05 BP 165/78 H 01/01/25 07:05 Pulse Ox 95 01/01/25 07:05 O2 Del Method Room Air 01/01/25 07:05 Progress Note: Objective Labs Labs: Short CBC 01/01/25 Range/Units 05:13 WBC 13.6 H (4.0-11.0) 10^3/uL Hgb 12.8 (12.0-16.0) g/dL Hct 38.1 (36.0-48.0) % Plt Count 236 (150-450) 10^3/uL BMP 01/01/25 05:13 Sodium 141 Potassium 3.8 Chloride 106 Carbon Dioxide 27.7 BUN 17.0 Creatinine 0.60 Glucose 110 H Calcium 8.7 Liver Function 01/01/25 Range/Units 05:13 Total Bilirubin 0.8 (0.2-1.0) mg/dL AST 7 L (15-37) U/L ALT 15 (14-59) U/L Alkaline Phosphatase 65 (46-116) U/L Albumin 2.6 L (3.4-5.0) g/dL Progress Note: A&P Assessment and Plan (1) Sepsis: (2) Acute diverticulitis of intestine: (3) HTN (hypertension): Plan Sepsis present on admission. Acute diverticulitis. White count is coming down. Her pain intensity has significantly improved. Sepsis protocol was followed including blood work, blood culture, lactic acid, IV fluid infusion and initiation of antibiotic. Patient is currently on a combination of Cipro and metronidazole Monitor white count. Monitor abdominal pain and tenderness Recommend colonoscopy in 6 weeks Continue IV antibiotic and switch to oral antibiotic tomorrow and discharge home hopefully Chest pain and discomfort EKG is nondiagnostic. CT of the chest is negative for any acute intrathoracic abnormalities Could be related to sepsis Elevated D-dimer CTA is negative for PE. Likely secondary to sepsis and active infection No clinical evidence to suggest DVT in lower extremities. Hypertension Resume preadmission home medication DVT prophylax Lovenox SQ Chronic medical conditions not listed above, incidental findings seen on labs and imaging. These would need to be addressed. Could be addressed when time and condition are appropriate. Could be addressed in the outpatient setting by PCP collaboration with other needed outpatient providers.
[2025-01-01] MEDS: KETOROLAC TROMETHAMINE 30 MG/ML VIAL 15 MG IVP ×2 (09:43→20:57)
[2025-01-01] MEDS: CALCIUM CARBONATE 500 MG (200MG ELEMENTAL) TAB CHEW PO ×2 (10:31→17:46)
[2025-01-01] MEDS: CIPROFLOXACIN IN 5 % DEXTROSE 400 MG/200 ML PREMIX 200 MG IV (11:17)
[2025-01-01] MEDS: METOCLOPRAMIDE HCL 10 MG/2 ML VIAL 5 MG IVP (20:58)
[2025-01-02] MEDS: CIPROFLOXACIN IN 5 % DEXTROSE 400 MG/200 ML PREMIX 200 MG IV (00:51)
[2025-01-02 03:45] VITALS: BP 147/79; PULSE 64; TEMP 36.8; O2SAT 95
[2025-01-02 07:25] VITALS: BP 146/78; PULSE 67; TEMP 37.2; O2SAT 94
--- NOTE | 2025-01-02 08:15 | CM.NOTE ---
Rounds made with Dr. Ross, pt will discharge to home today. No discharge needs identified at this time. Pt will f/u with PCP and Stella Palmer, Dr. Ross recommends colonoscopy in 6-8 weeks.
[2025-01-02] MEDS: LISINOPRIL 10 MG TABLET PO (09:11)
[2025-01-02] MEDS: PANTOPRAZOLE SODIUM 40 MG TABLET.DR PO (09:11)
[2025-01-02] MEDS: CARVEDILOL 12.5 MG TABLET PO (09:11)
[2025-01-02] MEDS: ASPIRIN 81 MG TAB.CHEW PO (09:11)
--- NOTE | 2025-01-02 09:26 | PM.DS1 ---
DS: Providers Provider Date of admission: 12/30/24 08:17 Primary care physician: Rafael Dumont MD DS: Diagnosis Discharge Diagnosis (1) Sepsis: (2) Acute diverticulitis of intestine: (3) HTN (hypertension): Plan As listed above and others that are not listed DS: Summary Hospital Course Hospital Course: Mrs. Cruz is a 64-year-old female who came in with left mid and lower abdomen pain. She was diagnosed having acute diverticulitis associated with sepsis Sepsis present on admission. Acute diverticulitis. White count is coming down. Her pain intensity has significantly improved. Today, patient rates her pain as 2 on a scale of 10. On admission her pain was 9 on a scale of 10. Sepsis protocol was followed including blood work, blood culture, lactic acid, IV fluid infusion and initiation of antibiotic. Patient is currently on a combination of Cipro and metronidazole Monitor white count. Monitor abdominal pain and tenderness Recommend colonoscopy in 6 weeks. This will be arranged to be done in the outpatient setting Patient will be discharged home on oral antibiotic. Chest pain and discomfort EKG is nondiagnostic. CT of the chest is negative for any acute intrathoracic abnormalities Could be related to sepsis Elevated D-dimer CTA is negative for PE. Likely secondary to sepsis and active infection No clinical evidence to suggest DVT in lower extremities. Hypertension Blood pressure is on the soft side therefore her lisinopril dose had been reduced down to 20 mg daily. Dose might need to increase back to 40 mg daily which is the original home dose if her systolic blood pressure started to climb up over the next days and weeks DVT prophylax Lovenox SQ Chronic medical conditions not listed above, incidental findings seen on labs and imaging. These would need to be addressed. Could be addressed when time and condition are appropriate. Could be addressed in the outpatient setting by PCP collaboration with other needed outpatient providers. Patient has multiple complex medical issues as listed above and others that are not listed. All appear to be stable. Patient is feeling much better compared to admission state. At this time, I do not have any clear or strong clinical justification to extend inpatient hospitalization. Patient however will require close and frequent monitoring as well as additional work-up, investigation and therapeutic intervention that could take place from this point on post discharge. That is to prevent relapse, decompensation, rehospitalization and other medical implications. I instructed patient to ask her primary care doctor to obtain [facility] record entirely to address abnormalities seen on labs and imaging that I have and have not addressed during this hospitalization, follow-up on pending blood work, imaging and pathology is if available and to follow-up on needed medical care in the outpatient setting. Time Spent with Patient Time attestation: Total time spent providing and/or coordinating discharge services: Time spent: greater than 30 minutes Exam Narrative Exam Narrative: [pt is awake and alert. oriented to place, time and person, central obesity HEENT: [place] conjunctiva and NL buccal mucosa Neck: Supple, no tenderness Endocrine: No Thyromegaly. Vascular: No JVD or carotid bruit. Lymphatic: No cervical lymphadenopathy. Chest: CTA no DTP. Heart RRR, no extra sound or murmur. Abd: Soft, resolution of the tenderness in the left mid and lower abdomen. No guarding, no rebound. LE: No cyanosis or clubbing, no varices or edema. Neuro: A A O. Nl speech, comprehension and attention. Nl and symetrical motor and tone examination through out. []] Constitutional Vital Signs, click to edit/add: Last Vital Signs Temp 99 F 01/02/25 07:25 Pulse 67 01/02/25 07:25 Resp 18 01/02/25 07:25 BP 146/78 H 01/02/25 07:25 Pulse Ox 94 L 01/02/25 07:25 O2 Del Method Room Air 01/02/25 07:25 DS: Data Data Completed and Pending Labs on day of discharge: Preliminary micro results at discharge 12/29/24 22:35 Blood Culture Result 2 - Preliminary Blood - Right Hand NO GROWTH AT 36-48 HOURS. FINAL TO FOLLOW. 12/29/24 22:30 Blood Culture Result 1 - Preliminary Blood - Left Antecubital NO GROWTH AT 36-48 HOURS. FINAL TO FOLLOW. Discharge Plan Discharge Disposition: Home, Self-Care Condition: Good Discharge Medications: New ciprofloxacin HCl [Cipro] 500 mg tablet 500 mg PO BID Qty: 20 0RF metronidazole 500 mg tablet 500 mg PO TID Qty: 30 0RF tramadol 100 mg tablet 100 mg PO Q8H PRN (Reason: pain) Qty: 30 0RF Continued carvedilol 12.5 mg tablet 12.5 mg PO Q12H pantoprazole 40 mg tablet,delayed release (DR/EC) 40 mg PO DAILY hydrochlorothiazide 12.5 mg tablet 12.5 mg PO DAILY aspirin 81 mg capsule 81 mg PO DAILY Changed ibuprofen 800 mg tablet 400 mg PO Q8H PRN (Reason: fever or pain) Qty: 0 0RF lisinopril 40 mg tablet 20 mg PO DAILY Qty: 0 0RF Print Language: Azeri Patient Instructions: Diverticulosis (DC) Activity Restrictions/Additional Instructions: I may not have addressed or treated all of your medical illnesses or the abnormal blood work or imaging studies during this hospitalization. Please ask your primary care provider to obtain [facility] records entirely to follow up on all of the abnormal physical, laboratory, and imaging findings that I have not addressed. Your blood pressure is on the low side. Please take half of the lisinopril 40 mg daily ( 20 mg ) Over the next days and weeks, your blood pressure might start climb up. Resume taking 40 mg 1 tablet daily if systolic blood pressure goes above 155. I would recommend that you have colonoscopy in 6 to 8 weeks to make sure that there is nothing inside your colon causing you to have infection Please return back to the emergency room or seek medical attention if your symptoms worsen or return. Discharging you from [facility] does not mean that your medical care ends here and now. You may still need additional monitoring, work up, investigation, and treatment plan to be handled from this point on by out patient providers including your primary care provider and specialists. For any medication question, please contact your retail pharmacist or your primary care provider. Thank you. Forms: Portal Instructions
== END 2025-01-02 11:03 | disposition home or self-care (01) | DRG 872 ==
LOC: ER 12-30 00:33 → MS 12-30 08:47
PROVIDERS: Admitting Provider Internal Medicine; Emergency Provider Emergency Medicine; PCP Family Medicine; Visit Provider Internal Medicine
DX: A41.9 Sepsis, unspecified organism (principal); K57.32 Diverticulitis of large intestine without perforation or abscess without bleeding; K80.20 Calculus of gallbladder without cholecystitis without obstruction; I10 Essential (primary) hypertension; R73.9 Hyperglycemia, unspecified; Z79.82 Long term (current) use of aspirin; Z88.0 Allergy status to penicillin; Z88.1 Allergy status to other antibiotic agents; Z88.2 Allergy status to sulfonamides; Z86.73 Personal history of transient ischemic attack (TIA), and cerebral infarction without residual deficits; Z82.3 Family history of stroke; Z82.49 Family history of ischemic heart disease and other diseases of the circulatory system
CPT/HCPCS: 36415; 71275; 74177; 80053; 81001; 83605; 83735; 84484; 85007; 85025; 85027; 85378; 87040; 93005; 96365; 96367; 96375; 99285; J0744; J1171; J1650; J1836; J1885; J2405; J2765; Q9967

== ENCOUNTER 2025-03-29 22:52 | Observation (INO) | payer BC, SELFPAY ==
[2025-03-29] VITALS (12 sets, daily range): BP systolic 85–147; BP diastolic 61–93; PULSE 120–156; TEMP 37.1; O2SAT 93–97; BMI 28.2
--- NOTE | 2025-03-29 23:11 | ECG_ITS ---
[facility] Test Date: 2025-03-29 Pat Name: AMANDA NORRIS Department: Room: - Gender: Female Dive Superintendent: : 1960 Requested By: 1030 Order Number: [id number] Reading MD: BRANT PATEL M.D. Measurements Intervals [place] Rate: 154 P: -[id number] MA: QRS: 70 QRSD: 118 T: -9 QT: 368 QTc: 455 Interpretive Statements ATRIAL FLUTTER WITH 2:1 AV BLOCK 2450 Right bundle branch block 55190 Twave abnormality, possible anterolateral ischemia or digitalis effect 28850 Twave abnormality, possible inferior ischemia or digitalis effect 8102 Low QRS voltage in chest leads 9150 abnormal ECG Compared to ECG 12/29/2024 21:04:40 Atrial flutter has replaced sinus rhythm Right bundle-branch block now present Possible ischemia now present Low QRS voltage now present Electronically Signed On 03-30-2025 6:45:34 EST by BRANT PATEL M.D.
--- NOTE | 2025-03-29 23:11 | ED.GENADUL1 ---
HPI HPI - General Adult General Chief complaint: Chest Pain Stated complaint: CHEST PAIN Time Seen by Provider: 03/29/25 22:56 History of Present Illness HPI narrative: 64-year-old female presented to the emergency department for chest pain. This started at 6 PM, about 5 hours ago. She was at a birthday [employer]. There was no trauma or fever. She feels a little bit short of breath and she feels like her heart is racing. She has never had this before and has never had atrial fibrillation. Related Data Home Medications ?Medication ?Instructions ?Recorded ?Confirmed aspirin 81 mg capsule 81 mg PO DAILY 01/19/24 03/30/25 carvedilol 12.5 mg tablet 12.5 mg PO Q12H 01/19/24 03/30/25 hydrochlorothiazide 12.5 mg tablet 12.5 mg PO DAILY 01/19/24 03/30/25 pantoprazole 40 mg tablet,delayed 40 mg PO DAILY 01/19/24 03/30/25 release Previous Rx's ?Medication ?Instructions ?Recorded lisinopril 40 mg tablet 20 mg (1/2 x 40 mg) PO DAILY #0 01/02/25 tabs Allergies Allergy/AdvReac Type Severity Reaction Status Date / Time topiramate (From Topamax) Allergy Severe Vomiting Verified 03/30/25 00:55 Penicillins Allergy Mild Hives Verified 03/30/25 00:55 sulfamethoxazole (From Allergy Mild Hives Verified 03/30/25 00:55 Bactrim) trimethoprim (From Bactrim) Allergy Mild Hives Verified 03/30/25 00:55 azithromycin Allergy Unknown Unknown Verified 03/30/25 00:55 doxycycline Allergy Unknown Unknown Verified 03/30/25 00:55 erythromycin base Allergy Unknown Unknown Verified 03/30/25 00:55 amoxicillin AdvReac Mild Hives Verified 03/30/25 00:55 cefuroxime (From Ceftin) AdvReac Mild Hives Verified 03/30/25 00:55 morphine AdvReac Mild Redness of Verified 03/30/25 00:55 Skin Opioid HPI Opioid Management Most Recent Opioid Data: Last Pain Scale 2 01/02/25, 07:26 Last ORT Total Score 0 12/30/24, 03:08 Last ORT Risk Category Low Risk 12/30/24, 03:08 Review of Systems ROS Narrative A ten point review of systems is negative except as noted above. [facility] Medical History (Updated 03/30/25 @ 00:53 by Jean-Pierre Edward MD) Diverticulitis ?K57.92 - Diverticulitis of intestine, part unspecified, without perforation or abscess without bleeding (ICD-10) Sebaceous cyst ?L72.3 - Sebaceous cyst (ICD-10) Mitral valve prolapse ?I34.1 - Nonrheumatic mitral (valve) prolapse (ICD-10) Migraine ?G43.909 - Migraine, unspecified, not intractable, without status migrainosus (ICD-10) TIA (transient ischemic attack) ?G45.9 - Transient cerebral ischemic attack, unspecified (ICD-10) Surgical History Hx of breast reduction, elective ?Z98.890 - Other specified postprocedural states (ICD-10) H/O knee surgery ?Z98.890 - Other specified postprocedural states (ICD-10) Family History Brother Family history of CHF (congestive heart failure) Family history of myocardial infarction Mother Family history of COPD (chronic obstructive pulmonary disease) Family history of hypertension Father Family history of cancer Family history of stroke Social History Within the past year, how often did you have a drink containing alcohol: monthly or less Within the past year, how many standard drinks containing alcohol did you have on a typical day: 1 or 2 Within the past year, how often did you have six or more drinks on one occasion: less than monthly Total score: 1 Score interpretation: A score less than 3 is consistent with normal alcohol consumption. 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 [employer] Highest level of school completed/degree received: Bachelor's degree Are you now , , , , never or living with a partner: In a typical week, how many times do you talk on the telephone with family, friends, or neighbors: 3 or more times per week How often do you get together with friends or relatives: 3 or more times per week How often do you attend adventist or sikhism services: 1-3 times per year Little interest or pleasure in doing things: not at all Feeling down, depressed, or hopeless: not at all Feel stressed/tense/nervous/anxious/difficulty sleeping: to some extent Do you think of yourself as: straight/heterosexual Gender Identity: female Exam Narrative Exam Narrative: Nurses note and vital signs reviewed General:The patient appears in no apparent distress.Patient is resting comfortably on cart. Skin:Warm, dry, no pallor noted.There is no rash noted. Head:Normocephalic, atraumatic Eye: Normal conjunctiva, no drainage Ears, Nose, Mouth, and Throat: oral mucosa is moist. Nares patent. Cardiovascular: Irregularly irregular and tachycardic Respiratory:Patient is in no distress, no accessory muscle use, lungs are clear to auscultation, no wheezing, rales or rhonchi Back:non-tender GI: Soft and nontender Musculoskeletal: The patient has no evidence of calf tenderness, no pitting edema, symmetrical pulses noted bilaterally Neurological:A&O, normal speech Psychiatric:Cooperative Constitutional Vital Signs, click to edit/add: Last Vital Signs Pulse 137 H 03/30/25 00:20 Resp 27 H 03/30/25 00:20 BP 98/65 03/30/25 00:11 Pulse Ox 96 03/30/25 00:20 O2 Del Method Room Air 03/29/25 23:20 Course Vital Signs Vital signs: Vital Signs Blood Pressure 147/93 H 03/29/25 22:58 Pulse Oximetry 96 03/29/25 22:58 Pulse Rate 137 H 03/30/25 00:20 Respiratory Rate 27 H 03/30/25 00:20 Blood Pressure 98/65 03/30/25 00:11 Pulse Oximetry 96 03/30/25 00:20 Oxygen Delivery Method Room Air 03/29/25 23:20 Medical Decision Making MDM Narrative Medical decision making narrative: The patient presented with new onset atrial fibrillation with RVR. She was given IV Cardizem bolus and placed on a drip. Heart rate has come down to the 120s and she is on a Cardizem drip. I have been cautious about titrating too quickly because her systolic blood pressure has been in the 90s. She does not seem to be symptomatic with that blood pressure. Initial troponin was 60 with a repeat of 55. The rest of her blood work is essentially normal. She is being admitted. Treatment diagnosis and disposition were discussed with the patient. Differential Diagnosis Differential Diagnosis: Atrial fibrillation, MS Lab Data Lab results reviewed: Yes I reviewed the patient's lab results Labs: Lab Results 03/29/25 03/30/25 Range/Units 23:15 00:13 WBC 10.1 (4.0-11.0) 10^3/uL RBC 5.11 (4.20-5.40) 10^6/uL Hgb 15.5 (12.0-16.0) g/dL Hct 45.8 (36.0-48.0) % MCV 89.6 (81.0-99.0) fL MCH 30.3 (26.7-34.0) pg MCHC 33.8 (29.9-35.2) g/dL RDW 12.8 (11.0-15.0) % Plt Count 290 (150-450) 10^3/uL MPV 9.1 L (9.5-13.5) fL Neut % (Auto) 55.6 (43.0-75.0) % Lymph % (Auto) 33.6 (20.5-60.0) % [place] % (Auto) 8.4 (1.7-12.0) % Eos % (Auto) 1.2 (0.9-7.0) % Baso % (Auto) 0.9 (0.2-2.0) % Neut # (Auto) 5.6 (1.4-6.5) 10^3/uL Lymph # (Auto) 3.4 (1.2-3.8) 10^3/uL [place] # (Auto) 0.9 H (0.3-0.8) 10^3/uL Eos # (Auto) 0.1 (0.0-0.7) 10^3/uL Baso # (Auto) 0.1 (0.0-0.1) 10^3/uL Abs Immat Gran (auto) 0.03 (0.00-0.03) 10^3/uL Imm/Tot Granulo (auto) 0.3 (0.0-0.5) % Sodium 146 H (136-145) mmol/L Potassium 3.6 (3.5-5.1) mmol/L Chloride 110 H (98-107) mmol/L Carbon Dioxide 24.9 (21.0-32.0) mmol/L Anion Gap 14.7 BUN 30.0 H (7.0-18.0) mg/dL Creatinine 0.92 (0.55-1.02) mg/dL Est GFR ( Amer) >60 (>=60 mL/min/1.73m^2) Est GFR (Non-Af Amer) >60 (>=60 mL/min/1.73m^2) BUN/Creatinine Ratio 32.6 Glucose 122 H (74-106) mg/dL Calcium 9.4 (8.5-10.1) mg/dL Magnesium 2.0 (1.8-2.4) mg/dL Troponin I High Sens 60.6 H* 55.3 H* (4.0-51.3) pg/mL Imaging Data Chest x-ray: My impression: No acute findings ECG Data Attestation: I personally reviewed and interpreted this ECG as follows: (Initial EKG on my interpretation shows atrial fibrillation with a rate of 154.) Critical Care Time Critical Care Time Critical Care Time: Yes Total Critical Care Time: 35 Attestation: Due to the high probability of sudden and clinically significant deterioration in the patient's condition he/she required the highest level of my preparedness to intervene urgently I provided critical care time including documentation time, medication orders and management, reevaluation, vital sign assessment, ordering and reviewing of lab tests, ordering and reviewing of x-ray studies, and admission orders. Aggregate critical care time is 35 minutes including only time during which I was engaged in work directly related to his/her care and did not include time spent treating other patients simultaneously. Discharge Plan Discharge Chief Complaint: Chest Pain Clinical Impression: Atrial fibrillation with rapid ventricular response Patient Disposition: Admitted as Observation Time of Disposition Decision: 00:53 Condition: Fair
[2025-03-29 23:24] LABS: Hematocrit 45.8 % (36.0-48.0); Hemoglobin 15.5 g/dL (12.0-16.0); Immature Granulocytes Abs Auto 0.03 10^3/uL (0.00-0.03); Immature Granulocytes Pct Auto 0.3 % (0.0-0.5); Lymphocytes Absolute Auto 3.4 10^3/uL (1.2-3.8); Mean Corpuscular HGB Conc 33.8 g/dL (29.9-35.2); Mean Corpuscular Hemoglobin 30.3 pg (26.7-34.0); Mean Corpuscular Volume 89.6 fL (81.0-99.0); Platelet Count 290 10^3/uL (150-450); Red Blood Count 5.11 10^6/uL (4.20-5.40); White Blood Count 10.1 10^3/uL (4.0-11.0)
[2025-03-29] MEDS: DILTIAZEM HCL 25 MG/5 ML VIAL 20 MG IV (23:29)
[2025-03-29 23:40] LABS: Anion Gap 14.7; Blood Urea Nitrogen 30.0 mg/dL (7.0-18.0); Calcium 9.4 mg/dL (8.5-10.1); Carbon Dioxide 24.9 mmol/L (21.0-32.0); Chloride 110 mmol/L (98-107); Estimated GFR (African America >60 (>=60 mL/min/1.73m^2); Estimated GFR (Non-African Ame >60 (>=60 mL/min/1.73m^2); Glucose 122 mg/dL (74-106); Magnesium 2.0 mg/dL (1.8-2.4); Potassium 3.6 mmol/L (3.5-5.1); Sodium 146 mmol/L (136-145)
--- OUTSIDE RECORDS SUMMARY | 2025-03-29 23:46 | XMS_ITS | Clinical Summary ---
Author Organization [facility] Address [address] [place] [address] Care Team Providers Care Office Clerk Routine Name Role Phone Rafael Dumont MD Primary Care Provider [phone] Allergies No known active allergies Medications MedicationSigDispense QuantityRefillsLast FilledStart DateEnd DateStatus methylPREDNISolone (Medrol Dospak) 4 MG tablets Indications:DJD (degenerative joint disease), ankle and foot, leftFollow schedule on MEDROL PACK package instructions to be used as directed 21 tablet 5Active Active Problems No known active problems Family History RelationNameStatusCommentsFatherDeceasedMotherAlive Social History Tobacco UseTypesPacks/DayYears UsedDateSmoking Tobacco: NeverSmokeless Tobacco: Never Tobacco Cessation:Counseling Given: Yes Alcohol UseStandard Drinks/WeekCommentsYes0 (1 standard drink = 0.6 oz pure alcohol)CommentsUnknownSex and Gender InformationValueDate RecordedSex Assigned at BirthNot on fileLegal LmrRuidke28/15/2023 7:21 PM EDTGender Identity Not on fileSexual OrientationNot on file Last Filed Vital Signs Vital SignReadingTime TakenCommentsBlood Hjmtzjge670/7402 12:00 PM EST Pulse--Temperature--Respiratory Sfyk894911/20/2024 4:21 PM EDTOxygen Saturation-- Inhaled Oxygen Concentration--Fgxysw37.5 kg (215 lb)11/20/2024 4:21 PM EDTHeight 170.2 cm (5' 7 )11/20/2024 4:21 PM EDTBody Mass Index33.67011/20/2024 4:21 PM EDT Plan of Treatment Health MaintenanceDue DateLast DoneCommentsCT Qejhyjflqimm40/19/1963Colonoscopy 1960Colorectal Cancer Qidzxhenx56/19/1963FIT-DNA1962FIT1960 FOBT1960 3826Yuvnvmvhnpqfq92/19/1963Pap Smear1983Cervical Cancer Vxokgtzoo04/19/1993HPV/Dlvbre8606/02/19924933Qszyistsy24/20/202207/, 11/19/2020 COVID-19 Vaccine ( season), 06/16/2020, 05/19/2020Influenza Vaccine (#1), 02/27/2023, 01/14/2020 Pneumococcal Vaccine: Pediatrics (0 to 5 Years) and At-Risk Patients (6 to 64 Years)Aged OutNo longer eligible based on patient's age to complete this topic Procedures Procedure NamePriorityDate/TimeAssociated DiagnosisCommentsBI MAMMOGRAM DIAGNOSTIC CHROTUcnwjoc03/20/2021 from Last 3 Months or Most Recently Relevant to Health Maintenance Results * Right diagnostic mammogram (12/01/2020)Anatomical RegionLateralityModality BreastRightMammographySpecimen (Source)Anatomical Location / Laterality Collection Method / VolumeCollection TimeReceived Time Impressions 12/01/2020 12:00 AM EDT NO MAMMOGRAPHIC EVIDENCE OF MALIGNANCY. ROUTINE FOLLOW-UP IS RECOMMENDED IN ONE YEAR. RESULT CODE: 2 ?? Benign Findings(s) DENSITY CODE: 2 (approximately 25-50% glandular) FOLLOW UP: 1YR The false-negative rate of mammography is approximately 10-percent. Management of a palpable abnormality must be based on clinical grounds. Patient was entered into a reminder system with a target due date for the next mammogram. Impression dictated by: Danette Granger M.D.12/01/2020 7:55 AM Dictation Location: [facility] Transcribed By: ? PWS ?07/20/21 0755 Dictated By: ?Danette Granger MD ?12/01/20 0749 Signed By: <Electronically signed by MD Danette Granger in [place]> ? 12/01/20 0755 Narrative 12/01/2020 12:00 AM EDT PERFORMED AT [facility] LOCATION:[place] [address] ?[facility] ?[facility] [address] [place] ?[address] ? [place] [address] ? Mammography Report ? Signed Patient: Rufus,Gurli A ?MR#: [id number] 68 : 1960 ?Acct:[id number] Age/Sex: 60 / F ?ADM Date: 12/01/20 Loc: [place] ?Room: ?Type: REG CLI Attending Dr: Brannon Winter DO Ordering Provider: Brannon Winter DO Date of Service: 12/01/20 MM/MM special view RT w/CAD: ABN [facility] Copies to: MD Brannon Zelaya,DO CLINICAL DATA: Follow-up nodular asymmetry. ??Previous breast reduction.. RIGHT DIAGNOSTIC MAMMOGRAMS - FULL FIELD DIGITAL WITH TOMOSYNTHESIS AND CAD Tomosynthesis true lateral and spot compression craniocaudal and mediolateral oblique views of the right breast were obtained using low-dose digital technique. ??Comparison is made to a prior study from November 19, 2020. ??This examination was reviewed with the aid of CAD. There are scattered fibroglandular densities. ??The nodular asymmetry at the superior central breast on the previous exam is not reproduced. ??Mild postoperative scarring as well as some benign calcifications are present. ??There are no suspicious masses, typically malignant calcifications or architectural distortion. MM/MM special view RT w/CAD Procedure Note CONVERSION, GENERIC - 11/18/2022 PERFORMED AT [facility] LOCATION:[address] [place] [address] Mammography Report Signed Patient: Nancy Hooper AMR#: [id number] 68 : 1960Acct:[id number] Age/Sex: 60 / FADM Date: 12/01/20 Loc: [place] Room:Type: [facility] Attending Dr: Brannon Winter DO Ordering [...] Danette Granger M.D.12/01/2020 7:55 AM Dictation Location: [facility] Transcribed By: [facility] 12/01/20 0755 Dictated By: Danette Granger MD 12/01/20 0749 Signed By: <Electronically signed by MD Danette Granger in [place]> 12/01/20 0755 Authorizing ProviderResult TypeResult StatusWilliam Lluvia Winter DOIMG BI PROCEDURES Final Result from Last 3 Months or Most Recently Relevant to Health Maintenance Insurance Care Teams Team MemberRelationshipSpecialtyStart Date Rafael Dumont MD [address] [place] [address] PCP - GeneralFamily Medicine11/06/24
--- OUTSIDE RECORDS SUMMARY | 2025-03-29 23:46 | XMS_ITS | Clinical Summary ---
Author Organization [facility] Address [address] [place] [address] Phone Care Team Providers Care Communications Technologist Name Role Phone Rafael Dumont MD Primary Care Provider [phone] Allergies Active AllergyReactionsCriticalityNoted DateCommentsCefuroxime AxetilRashLow 06/17/20083108MctllstqgillEoqlngu80/03/2009MorphineHives,Itching,KjzhStp7103/13/2023 OtherHives,Itching,Fever03/13/20237942PpbvplcqkjuYhqbEmb79/03/2009TopiramateDiarrhea 03/14/2023 Medications MedicationSigDispense QuantityRefillsLast FilledStart DateEnd DateStatus aspirin 81 mg EC tablet Take 1 tablet (81 mg) by mouth once daily.Active carvedilol (Coreg) 12.5 mg tablet Take 1 tablet (12.5 mg) by mouth 2 times daily (morning and late afternoon). Active hydroCHLOROthiazide (Microzide) 12.5 mg capsule Take 1 capsule (12.5 mg) by mouth once daily.Active ibuprofen 800 mg tablet Take 1 tablet (800 mg) by mouth every 8 hours if needed.09/12/2022ctive lisinopril 40 mg tablet Take 1 tablet (40 mg) by mouth once daily.Active pantoprazole (ProtoNix) 40 mg EC tablet Take 1 tablet (40 mg) by mouth once daily.12/15/2022ctive Ozempic 1 mg/dose (4 mg/3 mL) pen injector every 7 days.Active Active Problems ProblemNoted DateDiagnosed DateNever smoked qdamdpb37/08/2024Precordial pain 3BMI 32.0-32.9,adult03/24/20233327Yeldrclopsequw72/30/2023Essential hypertension, ovxzmm7303/13/2023 Resolved Problems ProblemNoted DateDiagnosed DateResolved DateEncounter to discuss test results Immunizations ImmunizationAdministration DatesNext DueFlu vaccine (IIV4), preservative free *Check age/dose*02/27/2023,01/14/2020Novel lpbfjoosi-F4E9-50, preservative-free 04/22/2009 Family History Medical HistoryRelationNameCommentsHeart attackBrotherRelationNameStatusComments Brother Social History Tobacco UseTypesPacks/DayYears UsedDateSmoking Tobacco: NeverSmokeless Tobacco: NeverAlcohol UseStandard Drinks/WeekCommentsNever0 (1 standard drink = 0.6 oz pure alcohol)CommentsUnknownSex and Gender InformationValueDate Recorded Sex Assigned at BirthNot on fileLegal OxzSvwmcy63/25/2022 9:36 AM ESTGender IdentityNot on fileSexual OrientationNot on file Last Filed Vital Signs Vital SignReadingTime TakenCommentsBlood Wigusvcs924/8403/22/2024 8:52 AM EST Hvlzz520003/22/2024 8:52 AM ESTTemperature--Respiratory Tnsj3893 12:10 PM EDTOxygen Lzlzkazrdv27%03/14/2023 12:10 PM EDTInhaled Oxygen Concentration-- Gcwsos24.4 kg (206 lb)03/22/2024 8:52 AM KZDAjhjwp022.2 cm (5' 7 )03/22/2024 8:52 AM ESTBody Mass Index32.26105/22/2023 8:52 AM EST Plan of Treatment Health MaintenanceDue DateLast DoneCommentsCT Axhmrmkzingm12/19/1963Colonoscopy 1962Colorectal Cancer Afoohyxvs24/19/1963FIT-DNA (Cologuard)1962FIT 1962HIV Iqlkwzyzh79/19/1963Lipid Panel1962 6725Nlsrhiexbgxtw42/19/1963 Yearly Adult Jrzdxkpw48/19/1963Diabetes Dsunjzsod49/19/1981Hepatitis C Screening 1980Cervical Cancer Spsfatarf45/19/1984HPV/Ksmbzx7506/02/1983Pap Smear 1983DTaP/Tdap/Td Vaccines (1 - Tdap)1984MMR Vaccines (1 of 1 - Standard series)05/20/2009Pneumococcal Vaccine (1 of 1 - PCV)2012RSV High Risk: (Elderly (60+) or Population) (1 - Risk 50-74 years 1-dose series)2012Zoster Vaccines (1 of 2)06/02/20128831Ozeeyrvlf87/20/2022 12/01/2020, 12/01/2020, 11/19/2020Influenza Vaccine (#1)/, 02/27/2023, 01/14/2020, Additional history existsCOVID-19 Vaccine ( season), 06/16/2020, 05/19/2020HIB VaccinesAged OutNo longer eligible based on patient's age to complete this topicHPV VaccinesAged OutNo longer eligible based on patient's age to complete this topicHepatitis A VaccinesAged OutNo longer eligible based on patient's age to complete this topic Hepatitis B VaccinesAged OutNo longer eligible based on patient's age to complete this topicIPV VaccinesAged OutNo longer eligible based on patient's age to complete this topicMeningococcal VaccineAged OutNo longer eligible based on patient's age to complete this topicRotavirus VaccinesAged OutNo longer eligible based on patient's age to complete this topic Insurance Care Teams Team MemberRelationshipSpecialtyStart DateEnd Rafael Dumont MD [address] [place] [address] [facility] - General05/15/99
--- OUTSIDE RECORDS SUMMARY | 2025-03-29 23:47 | XMS_ITS | Clinical Summary ---
Author Organization [facility] Address [address] [place] [address] Care Team Providers Care Quality Control Lab Tech Name Role Phone Rafael Dumont MD Primary Care Provider [phone] Allergies Active AllergyReactionsCriticalityNoted YlzfYegfsghzZfehaqpdmfi19/03/2009 Cefuroxime Ckhiix5606/17/20088605Lxfvnayjicon99/03/3518Yfgwydnsbftv44/03/2009 Social History Tobacco UseTypesPacks/DayYears UsedDateSmoking Tobacco: NeverAlcohol UseStandard Drinks/WeekCommentsNot Asked0 (1 standard drink = 0.6 oz pure alcohol) CommentsNoSex and Gender InformationValueDate RecordedSex Assigned at BirthNot on fileLegal EwlKlecqy39/02/2012 8:18 AM ESTGender IdentityNot on fileSexual OrientationNot on file Last Filed Vital Signs Vital SignReadingTime TakenCommentsBlood Pressure--Pulse--Temperature-- Respiratory Rate--Oxygen Saturation--Inhaled Oxygen Concentration--Rzpjcb80.8 kg (220 lb)06/17/2008 2:47 PM OLDGdzvgu454.7 cm (5' 8 )06/17/2008 2:47 PM ESTBody Mass Index33.45006/17/2008 2:47 PM EST Plan of Treatment Health MaintenanceDue DateLast DoneCommentsAnxiety Zahcejsno17/19/1981Depression Dmpkwwlvb28/19/1981HIV Vejhkgxjk87/19/1981Hepatitis C Kyvrrmrzv05/19/1981 DTaP,Tdap,Td Vaccine (1 - Tdap)1981Cervical Cancer Kawjeafwd89/19/1984 Mammogram Komjbkqfz65/19/2003CT Ddnfvftusvty22/19/2008Cologuard (FIT-DNA) 06/02/20078090Rhhpbzgmcdp05/19/2008Colorectal Cancer Vrszdskdh49/19/2008Diabetes Crqwhavrb03/19/2008Fecal Occult Blood2007Lipid Ypbwzjeog33/19/2008 Luaoxehhvvuiu28/19/2008Pneumococcal Vaccine: 50+ (1 of 1 - PCV)2012 Shingrix Vaccine (1 of 2)2012Covid-19 Vaccine (1 - 2024- season) 2025Influenza Vaccine (#1)2025RSV Vaccine (1 - 1-dose 75+ series) 2037 Insurance Care Teams Team MemberRelationshipSpecialtyStart DateEnd Rafael Dumont MD PCP - General06/12/08
[2025-03-29] MEDS: DILTIAZEM HCL 25 MG/5 ML VIAL 10 MG IV (23:57)
[2025-03-30] VITALS (44 sets, daily range): BP systolic 69–147; BP diastolic 46–81; PULSE 61–145; TEMP 36.4–36.6; O2SAT 94–98; BMI 36.0
[2025-03-30] MEDS: 0.9 % SODIUM CHLORIDE 1,000 ML 1000 ML IV (00:50)
--- OUTSIDE RECORDS SUMMARY | 2025-03-30 02:06 | XMS_ITS | CCD ---
Author Organization [facility] Care Team Providers Care Regional Business Manager Name Role Phone Rafael Salamanca Unavailable Unavailable Unavailable Julia Ayon Unavailable MD Rafael Salamanca Primary Care Provider [phone] MD Anneliese Hoyt Attending Provider MD Anneliese Hoyt Referring Provider DO Renny Walton Attending Provider [phone] Sharla Strange Unavailable MD Rafale Salamanca Primary Care Provider [phone] MARIA T Strange Attending Provider MD Rafael Salamanca Attending Provider [phone] CHEIKH ., DR HALL Consulting Unavailable HOY ., DR HALL Attending Unavailable HOY ., DR HALL Admitting Unavailable HOY ., DR HALL Primary Care Unavailable HOY ., DR HALL Primary Care Unavailable HOY ., DR HALL Consulting Unavailable HOY ., DR HALL Attending Unavailable CHEIKH ., DR HALL Admitting Unavailable MD Rafael Salamanca Primary Care Provider [phone] DO Renny Walton Attending Provider [phone] Rafael Salamanca Primary Care Unavail able MD Rafael Salamanca Primary Care Provider [phone] YVROSE Kent Attending Provider [phone] MD Erika Escobedo Emergency Provider MD Nabil Baker Admit Provider [phone] MD Nabil Baker Attending Provider MD Anneliese Hoyt Other Provider ANNELIESE HOYT Referring Unavailable RAFAEL SALAMANCA Primary Care Unavailable ANNELIESE HOYT Referring Unavailable RAFAEL SALAMANCA Primary Care Unavailable Rafael Salamanca MD Primary Care Provider MD Rafael Salamanca Primary Care Provider [facility], DO Renny Finch Attending Provider ANNELIESE HOYT Attending Unavailable ANNELIESE HOYT Referring Unavailable RAFAEL SALAMANCA Primary Care Unavailable Rafael Salamanca MD Primary Care Provider Rafael Salamanca MD Attending Provider Unavailable [facility] Salamanca MD Primary Care Provider Rafael Salamanca MD Primary Care Provider Isabel Kent APRN Attending Provider JOSEPH MONTAGUE Attending Unavailable RAFAEL SALAMANCA Referring Unavailable JOSEPH MONTAGUE Attending Unavailable Rafael Salamanca Primary Care Physician Anthony IVERSON Attending Unavailable [facility] Renny JOHNSON Attending Provider John Benson MD Attending Provider Rafael Salamanca MD Primary Care Provider Rafael Salamanca MD Attending Provider Stella Palmer DO Attending Provider Rafael Salamanca MD Primary Care Provider Rafael Salamanca MD Attending Provider [phone] Joseph [facility] Attending Provider Stella Laguna DO Other Provider [phone] John Benson II Attending Unavailabl e John Benson II Admitting Unavailabl e Hoy, Rafael M Primary Care Unavailable Hoy, Rafael M Attending Unavailable Hoy, Rafael M Admitting Unavailable Hoy, Rafael M Primary Care Unavailable Hoy, Rafael M Attending Unavailable Hoy, Rafeal M Admitting Unavailable Hoy, Rafael M Primary Care Unavailable Hoy, Rafael M Attending Unavailable Hoy, Rafael M Admitting Unavailable Hoy, Rafael M Primary Care Unavailable Hoy, Rafael M Attending Unavailable Hoy, Rafael M Admitting Unavailable Hoy, Rafael M Primary Care Unavailable Hoy, Rafael M Attending Unavailable Hoy, Rafael M Admitting Unavailable Hoy, Rafael M Primary Care Unavailable Hoy, Rafael M Attending Unavailable Hoy, Rafael M Admitting Unavailable Hoy, Rafael M Primary Care Unavailable Hoy, Rafael M Attending Unavailable Hoy, Rafael M Admitting Unavailable Hoy, Rafael M Primary Care Unavailable Ly, Stella L Admitting Unavailable Ly, Stella L Attending Unavailable Hoy, Rafael M Primary Care Unavailable Kun [facility], Renny P Attending [facility] Admitting Unavailable Hoy, Rafael M Primary Care Unavailable Allergies Allergy ClassificationReported Allergen(s)Allergy TypeDate of OnsetReaction(s) FacilityAnti-Epileptic Agents (1 source)topiramateDrug Igbkqfw52-75-3409FkhrfnooSelect Medical TriHealth Rehabilitation HospitalCephalosporins (antibiotic) (1 source)CefuroximeDrug Kgjgfza64-91-8205HbpdsEkhfxojqoMansfield Hospital Dihydrofolate Reductase Inhibitors (antibiotic) (1 source)TrimethoprimDrug Dcgzmas02-67-0036RqoyfXcuiqhgnpMansfield HospitalDoxycycline (1 source)DoxycyclineDrug Mciscxp04-27-5025CaxvgWnkptjtlsMansfield HospitalMacrolides (antibiotic) (1 source)AzithromycinDrug Yhknhvy28-79-3511WnovpHyqhkgmkkMansfield HospitalOpioid Agonists (1 source)MorphineDrug Huognoi12-73-2094ChwhsIbwgedlhmMansfield Hospital Penicillins (antibiotic) (2 sources)AmoxicillinDrug Gnwzgkm50-03-1379OaywaWnufqliuwMansfield HospitalQuinolones (antibiotic) (1 source)levoFLOXacinDrug Kngnwlg65-05-7527MugopQawocydvgCincinnati Children's Hospital Medical Centerulfonamides (antibiotic) (1 source)SulfamethoxazoleDrug Xqbhlpb73-65-6111ZgchfIjsfpoadsMansfield Hospital (15 sources)Cefuroxime; Translations: [Ceftin]Drug AllergyWeal (disorder)[facility] [place] (20 sources)Penicillins; Translations: [Penicillins]Allergy to drug (finding) 79-20-8080Dmst, Unknown Reaction, [facility] (3 sources)Morphine Derivatives; Translations: [Morphine Derivatives]Allergy to drug (finding)[place] [address] Work Phone: (20 sources)AmoxicillinDrug Npsydbz52-73-7108PwixwdfParkview Health [facility] (20 sources)Doxycycline; Translations: [doxycycline]Drug Psbvuam04-21-4631Kcnh (disorder)[facility] (16 sources)Erythromycin; Translations: [ERYTHROMYCIN]Drug Gkczqde13-73-9712 Unknown, Weal (disorder)[facility] (10 sources)levoFLOXacinDrug AllergyUnknowHannibal Regional Hospital [facility] Other (20 sources)Morphine; Translations: [MORPHINE]Drug Acaznze06-33-2032Pddsh, Itching, RashGalion Hospital (11 sources)Sulfamethoxazole / Trimethoprim; Translations: [sulfamethoxazole-trimethoprim]Drug AllergyEruption of skin (disorder)[facility] [place] (20 sources)FLU VacinePropensity to adverse xvmwzvgna37-87-6451evufjMorrow County Hospital (20 sources)AzithromycinDrug Rlugifa79-98-0682CljchXnlerbatkMansfield Hospital (20 sources)CefuroximeDrug Fkvlviq21-29-8275LifguBmfnennvmMansfield Hospital (20 sources)SulfamethoxazoleDrug Gxkagip73-74-7140MoxyuTplavnizwMansfield Hospital (20 sources)TrimethoprimDrug Jbikoky68-92-3517EaenmImhiljpiqMansfield Hospital (1 source)AmoxicillinDrug AllergyThe [facility] (1 source)CefuroximeDrug Aoypvcp17-82-3661Xea [facility] (2 sources)Codeine; Translations: [codeine]Drug Nclcmqh41-69-9929VyqAdena [facility] (2 sources)Doxycycline; Translations: [Vibramycin]Drug Xkekxfu87-68-4469XdqAdena Regional Medical Center [facility] (20 sources)ErythromycinDrug Ffossxd48-68-9446ZlqoCmw [facility] (1 source)MorphineDrug Rnctitq18-22-5156LcoAdena Regional Medical Center Rep[facility] (2 sources)traMADol; Translations: [Ultram]Drug Yswcbna16-74-6012GlmAdena Regional Medical Center [facility] (1 source)MorphineDrug AllergyUnknowHannibal Regional Hospital [facility] Other (20 sources)topiramate; Translations: [TOPIRAMATE]Drug Pchqimt23-86-7006 Diarrhea, Multiple symptoms (finding)[facility] (4 sources)Cefuroxime; Translations: [CEFUROXIME AXETIL]Drug Eawgtcv80-12-3627 [facility] (19 sources)levoFLOXacin; Translations: [LEVOFLOXACIN]Drug Ezykrby94-79-9351 [facility] RepositoryComment on above:Pt indicates she can take this as of 12/20/2023. (4 sources)OTHER; Translations: [OTHER]Propensity to adverse reactions (disorder)11-39-6147Uboaa, Itching, FeverMadison Health [facility] (1 source)ALLERGIES NOT ON FILE; Translations: [ALLERGIES NOT ON FILE]Propensity to adverse reactions (disorder)[facility] (2 sources)PenicillinsDrug Egbxhcf81-91-3824BytpEexqqzhtpwOhioHealth [facility] Work Phone: (1 source)Codeine; Translations: [codeine]Drug AllergyVomiting (disorder)[facility] (2 sources)influenza A virus A/[place]/AZ7769/2015 (H1N1) antigen / influenza A virus A/[place]/OH0856 (H3N2) antigen / influenza B virus B/[place] [employer] antigen / influenza B virus B/ antigen; Translations: [influenza virus vaccine]Drug AllergyWeal (disorder)[facility] (2 sources)Penicillin; Translations: [penicillin]Drug AllergyWeal (disorder) [facility] Ifeanyi (1 source)traMADol; Translations: [tramadol]Drug AllergyHivesLancaster Municipal Hospital (1 source)Sulfamethoxazole / Trimethoprim; Translations: [Bactrim]Drug Allergy [facility] (1 source)topiramate; Translations: [Topamax]Drug AllergyOhiohealth Grady Memorial Hospital Repository Medications Current Medications MedicationDrug Class(es)DatesSig (Normalized)Sig (Original)aspirin 81 mg delayed release oral tablet (20 sources)Platelet Aggregation Inhibitor, Nonsteroidal Anti-inflammatory Drug Start: 28-04-3093suxe 1 tablet by mouth once dailyaspirin 81 mg Oral EC Tab 81 mg = 1 tab(s), Oral, Daily, Refills(s) 0 Start Date: 12/03/24 Status: Ordered Repeat number: 1Start: 13-41-3288inwc 1 tablet by mouth once dailyAspirin 81 mg Tablet,Chewable Active 81 MG PO Daily February 14, 2017 12:00am Complies with drug therapytake 1 tablet by mouth once dailyaspirin 81 mg EC tablet Take 1 tablet (81 mg) by mouth once daily. ActiveAspirin 81 mg Once a day Active carvedilol 12.5 mg oral tablet (20 sources)alpha-Adrenergic Faisal, beta-Adrenergic BlockerStart: 01-03-2023 take 1 tablet by mouth twice dailyCarvedilol 12.5 mg tablet Active 12.5 MG PO Twice daily January 03, 2023 12:00am Complies with drug therapytake 1 tablet by mouth every twelve hoursCarvedilol 25 MG 1 tablet with food Orally Twice a day Activedoxycycline monohydrate 100 mg oral capsule (2 sources)Tetracycline-class DrugStart: 04-13-2022 End: 56-69-2096nnov 1 capsule by mouth twice dailydoxycycline (Monodox) 100 mg capsule Take 1 capsule (100 mg) by mouth 2 times a day. 04/13/2022 03/22/2024 Discontinued (Therapy completed)hydroCHLOROthiazide 12.5 mg oral tablet (20 sources)Thiazide DiureticStart: 69-01-6109rjvh 1 tablet by mouth once daily Hydrochlorothiazide 12.5 mg tablet Active 12.5 MG PO Daily September 06, 2023 12:00am Complies with drug therapyStart: 01-03-2023 End: 52-54-8027xnjb 1 tablet by mouth once dailyHydrochlorothiazide 12.5 mg tablet Discontinued 12.5 MG PO Daily January 03, 2023 12:00am 2023 2:57pmStart: 89-63-1975xrmc 1 capsule by mouth once daily hydroCHLOROthiazide 12.5 MG Oral Capsule TAKE 1 CAPSULE ONCE DAILY. Quantity: 90 Refills: 3 Ordered: 22-Oct-2021 Anneliese Hoyt MD Start : 22-Oct-2021 Active new starthyoscyamine sulfate 0.125 mg oral tablet (20 sources)Start: 53-10-1780otcp 1 tablet by mouth every six hours as needed for painLevsin 0.125 mg SL Tab 0.125 mg = 1 tab(s), Oral, q6hr, PRN pain, Refills(s) 0 Start Date: 11/27/24 Status: Ordered Repeat number: 1Start: 07-07-2023 End: 08-62-0473dnaq 1 tablet by mouth every six hours as neededHyoscyamine Sulfate 0.125 mg tablet,disintegrating Discontinued 0.125 MG PO Every 6 hours as neededFebruary 2023 1:00am September 06, 2023 7:35amtake 1 tablet by mouth every six hours as neededHyoscyamine Sulfate 0.[address] 1 TABLET UNDER THE TONGUE AND allow TO DISSOLVE EVERY 6 HOURS ASNEEDED Oral for 7 Days PRN Active ibuprofen 800 mg oral tablet (20 sources)Nonsteroidal Anti-inflammatory DrugStart: 26-53-1163hnjf 1 tablet by mouth every eight hours as needed for painIbuprofen 800 mg tablet Active 800 MG PO Every 8 hours as needed for fever or pain July 07, 2023 1:00am Complies with drug therapyStart: 07-06-2021 End: 61-06-8678Zekrbfptu 600 mg tablet Discontinued 800 MG PO Q8H as needed for pain July 06, 2021 9:31am July 07, 2023 2:57pmStart: 07-06-2021 End: 63-44-7028xjdb 800 mg by mouth every eight hoursIbuprofen Discontinued 800 MG PO Q8H July 06, 2021 9:31am July 07, 2023 2:57pmStart: 10-23-2020 End: 75-33-2217iyme 1 tablet by mouth every eight hours as needed for pain Ibuprofen 600 mg tablet Discontinued 600 MG PO Q8H as needed for pain October 23, 2020 12:00am July 06, 2021 9:31amStart: 05-09-2018 End: 70-20-5152Utavjexue (Motrin Ib) 200 mg Tablet Discontinued 800 MG PO Q8H as needed for Migraine Headache May 09, 2018 1:00am May 10, 2018 1:14pmStart: 58-20-0304ylxi 1 tablet by mouth every six hours as needed for pain Motrin 800 mg Tab Oral, q6hr, PRN Pain Start Date: 05/01/13 Status: Ordered Repeat number: 1Motrin As needed ActivemethylPREDNISolone (5 sources)CorticosteroidStart: 41-73-8568ibucthJOTHYEAxhcjk (Medrol Dospak) 4 MG tablets Indications: DJD (degenerative joint disease), ankle and foot, left Follow schedule on MEDROL PACK package instructions to be used as directed 21 tablet 11/06/2024 Activeondansetron 4 mg disintegrating oral tablet (20 sources)Serotonin-3 Receptor AntagonistStart: 89-26-4884dtxg 1 tablet by mouth four times dailyondansetron 4 mg Dis Tab 4 mg = 1 tab(s), Oral, QID, Refills(s) 0 Start Date: 11/27/24 Status: Ordered Repeat number: 1Start: 80-44-3688ipei 1 tablet by mouth once daily as needed for nausea and vomiting Ondansetron 4 mg tablet,disintegrating Active 4 MG PO Daily as needed for nausea and vomiting February 14, 2024 12:00am Complies with drug therapyStart: 09-27-2021 End: 61-47-6110qzfj 1 tablet by mouth every eight hours as needed for nausea and vomitingOndansetron 4 mg tablet,disintegrating Discontinued 4 MG PO Q8H as needed for nausea and vomiting 02 13September 27, 2021 12:00am January 03, 2023 10:55amStart: 04-04-2020 End: 27-47-3935gblo 1 tablet by mouth every eight hours as needed for nausea and vomitingOndansetron 4 mg tablet,disintegrating Discontinued 4 MG PO Q8H as needed for nausea and vomiting 12 4 April 04, 2020 1:00am June 04, 2020 2:29pmOzempic 1 mg/dose (4 mg/3 mL) pen injector (1 source)Ozempic 1 mg/dose (4 mg/3 mL) pen injector every 7 days. Active pantoprazole 40 mg delayed release oral tablet (20 sources)Proton Pump InhibitorStart: 81-12-4083ynrh 1 tablet by mouth once dailyPantoprazole (Protonix) 40 mg tablet,delayed release (DR/EC) Active 40 MG PO Daily December 192:27pm Complies with drug therapyStart: 05-10-2018 End: 71-86-2346vlqe 1 tablet by mouth twice dailyPantoprazole (Protonix) 40 mg tablet,delayed release (DR/EC) Discontinued 40 MG PO Twice daily July 06, 2021 9:31am December 20, 2023 12:29pmStart: 02-14-2017 End: 45-24-9410wtuc 1 tablet by mouth once daily in the morningPantoprazole (Protonix) 40 mg Tablet,Delayed Release (Dr/Ec) Discontinued 40 MG PO Every morning February 14, 2017 12:00am May 10, 2018 1:15pm End: 22-60-8956mkip 1 tablet by mouth once dailypantoprazole (ProtoNix) 20 mg EC tablet Take 1 tablet (20 mg) by mouth once daily. 03/22/2024 Discontinued (Therapy completed)phentermine hydrochloride 37.5 mg oral tablet (2 sources)Sympathomimetic Amine AnorecticStart: 10-12-2022 End: 73-58-3327dzgb 1 tablet by mouth once daily before mealtimephentermine (Adipex-P) 37.5 mg tablet Take 1 tablet (37.5 mg) by mouth once daily in the morning. Take before meals. 10/12/2022 03/22/2024 Discontinued (Therapy completed)24 hr phentermine 7.5 mg / topiramate 46 mg extended release oral capsule (1 source)Sympathomimetic Amine AnorecticStart: 32-02-2403bboz 1 capsule by mouth every twenty-four hoursQsymia 7.5-46 MG 1 capsule Orally Once a day for 30 days Jul, Activerimegepant 75 mg disintegrating oral tablet (20 sources)Start: 24-63-7906igod 1 tablet under the tongue onceNurtec ODT 75 mg oral tablet, disintegrating 75 mg = 1 tab(s), SubLingual, Once, Refills(s) 0 StartDate: 11/27/24 Status: Ordered Repeat number: 1Start: 58-05-3675hqij 1 tablet by mouth once daily as needed for headacheRimegepant (Nurtec Odt) 75 mg tablet,disintegrating Active 75 MG PO Daily as needed for Migraine Headache July 06, 2021 1:00am Complies with drug therapy Completed/Discontinued Medications MedicationDrug Class(es)DatesSig (Normalized)Sig (Original)acetaminophen 500 mg oral capsule (20 sources)Start: 07-07-2023 End: 06-62-5976xmnr 1 capsule by mouth every six hours as neededAcetaminophen 500 mg capsule Discontinued 500 MG PO Every 6 hours as needed July 07, 2023 1:00am September 06, 2023 7:35amtake 1 capsule by mouth every six hours Acetaminophen 500 MG 1 capsule as needed Orally every 6 hrs Activeacetaminophen 325 mg / HYDROcodone bitartrate 10 mg oral tablet (20 sources)Opioid AgonistStart: 09-27-2021 End: 67-06-9617gngi 1 tablet by mouth three times daily as needed for pain Hydrocodone-Acetaminophen 10-325 mg tablet Discontinued 1 TAB PO Three times daily as needed for pain 10 5 September 27, 2021 January 03, 2023 10:55amStart: 07-14-2021 End: 74-24-6969mvws 1 tablet by mouth every six hours as needed for pain Hydrocodone-Acetaminophen 5-325 mg tablet Discontinued 1 TAB PO Q6H as needed for pain 20 July 14, 2021 January 03, 2023 10:55amacetaminophen 325 mg / oxyCODONE hydrochloride 5 mg oral tablet (20 sources)Opioid AgonistStart: 10-23-2020 End: 81-44-6720lkwx 1 tablet by mouth every six hours as needed for pain Oxycodone-Acetaminophen (Percocet) 5-325 mg tablet Discontinued 1 - 2 TAB PO Every 6 hours as needed for pain 20 3 October 23, 2020 July 06, 2021 9:31am amoxicillin 875 mg / clavulanate 125 mg oral tablet (20 sources)Penicillin-class AntibacterialStart: 10-23-2020 End: 73-74-6200tnol 1 tablet by mouth twice dailyAmoxicillin-Pot Clavulanate (Augmentin) 875-125 mg tablet Discontinued 1 TAB PO Twice daily 03 03October 23, 2020 12:00am July 06, 2021 9:30amStart: 10-28-2017 End: 68-83-1588uine 1 tablet by mouth twice dailyAmoxicillin-Pot Clavulanate (Augmentin) 875-125 mg tablet Discontinued 1 TAB PO Twice daily 2017 12:00am May 09, 2018 2:22pmazithromycin 250 mg oral tablet (20 sources)Macrolide AntimicrobialStart: 02-14-2017 End: 62-78-1297lufg 1 tablet by mouth once dailyAzithromycin (Zithromax Z-Hesham) 250 mg Tablet Discontinued 250 MG PO Daily February 14, 2017 12:00amOctober 25, 2017 11:39amciprofloxacin 500 mg oral tablet (20 sources)Quinolone AntimicrobialStart: 01-06-2025 End: 65-48-1497ivgp 1 tablet by mouth once dailyCiprofloxacin Hcl 500 mg tablet Discontinued 500 MG PO Daily January 06, 2025 12:00am January 15, 2025 9:08amStart: 09-27-2021 End: 94-58-9317wznz 1 tablet by mouth every two hoursCiprofloxacin Hcl (Cipro) 500 mg tablet Discontinued 500 MG PO Twice daily September 27, 2021 12:00am July 07, 2023 2:57pm administer dose at least 2 hrs before/6 hrs after dairy products, calcium, zinc, and/or iron-containing productsStart: 09-25-2020 take 1 tablet by mouth every twelve hoursCipro 500 MG 1 tablet Orally every 12 hrs for 10 day(s) PRN September, Activecyclobenzaprine hydrochloride 10 mg oral tablet (20 sources)Muscle RelaxantStart: 06-04-2020 End: 65-53-5301saum 1 tablet by mouth three times daily as needed for muscle spasmsCyclobenzaprine 10 mg tablet Discontinued 10 MG PO Three times daily as needed for muscle spasm June 04, 2020 1:00am September 18, 2020 7:08am24 hr desvenlafaxine succinate 50 mg extended release oral tablet (20 sources)Serotonin and Norepinephrine Reuptake InhibitorStart: 02-14-2017 End: 04-50-7787smdz 1 tablet by mouth once daily, then take 1 tablet by mouth every twenty-four hoursDesvenlafaxine Succinate (Pristiq) 50 mg Tablet Extended Release 24 Hr Discontinued 50 MG PO Daily February 14, 2017 12:00am October 25, 2017 11:40amdocusate sodium 50 mg / sennosides, intermediate 8.6 mg oral tablet (20 sources)Start: 10-23-2020 End: 67-94-9436rgff 2 tablets by mouth once daily at bedtime as needed for constipationSennosides-Docusate Sodium (Senna Plus) 8.6-50 mg tablet Discontinued 2 TAB PO Daily at bedtime as needed for constipation October 23, 2020 12:00am July 06, 2021 9:31am12 hr guaiFENesin 600 mg extended release oral tablet (20 sources)Start: 02-15-2017 End: 09-51-1029ijru 2 tablets by mouth twice daily, then take 1 tablet by mouth every twelve hoursGuaifenesin (Mucinex) 600 mg Tablet Extended Release 12hr Discontinued 1200 MG PO Twice daily February 15, 2017 12:00am October 25, 2017 11:40amlevoFLOXacin 500 mg oral tablet (18 sources)Quinolone AntimicrobialStart: 10-27-2023 End: 93-60-6739rcoe 1 tablet by mouth once dailyLevofloxacin 500 mg tablet Discontinued 500 MG PO Daily October 27, 2023 12:00am December 20, 2023 12:28pm3 ml liraglutide 6 mg/ml pen injector (20 sources)GLP-1 Receptor AgonistStart: 07-12-2023 End: 98-04-4067Kwwhnsdajvl (Victoza 3-Hesham) 0.6 mg/0.1 mL (18 mg/3 mL) pen injector Discontinued 3 MG SUBCUT Daily September 06, 2023 8:00am October 27, 2023 11:28am Inject 1.2mg +1.8mg daily to equal 3mg totalStart: 07-07-2023 End: 48-21-3818Ftcboykkkgv (Victoza 3-Hesham) 0.6 mg/0.1 mL (18 mg/3 mL) pen injector Discontinued 3 MG SUBCUT Daily July 07, 2023 1:00am July 12, 2023 9:43amStart: 01-18-2023 End: 10-74-0456Fdtdkqk 3-Hesham 0.6 mg/0.1 mL (18 mg/3 mL) injection Inject 0.1 mL (0.6 mg) under the skin. 01/18/2023 03/22/2024 Discontinued (Therapy completed) Start: 27-24-3582Mdcpkss 18 MG/3ML 3mg Subcutaneous Daily for 30 days 2.4mg (1.8 + 0.6mg) once daily for 1 week, then 3mg (1.8 +1.2mg) thereafter Jan, ActiveStart: 46-23-0717lbzgxr 1.8 mg by subcutaneous injection once dailyVictoza 18 MG/3ML 1.8mg Subcutaneous Daily for 30 days Jan, Activeinject 3 mg by subcutaneous injection once dailyVictoza 18 MG/3ML 3mg (1.2 + 1.8) Subcutaneous Daily for 30 days BMI 34.8 Prediabetes R73.09 Activelisinopril 20 mg oral tablet (20 sources)Angiotensin Converting Enzyme InhibitorStart: 10-23-2020 End: 25-19-8644ofaj 2 tablets by mouth once dailyLisinopril 20 mg tablet Discontinued 40 MG PO Daily October 23, 2020 3:30am July 07, 2023 2:56pm Start: 10-23-2020 End: 85-13-7187qwop 40 mg by mouth once dailyLisinopril Discontinued 40 MG PO Daily October 23, 2020 3:30am July 07, 2023 2:56pmStart: 10-28-2017 End: 24-27-1217sjkf 1 tablet by mouth once dailyLisinopril 20 mg Tablet Discontinued 20 MG PO Daily 0 October 28, 2017 2:34pm October 23, 2020 3:30am Start: 02-14-2017 End: 64-39-4817ekez 2 tablets by mouth once dailyLisinopril 20 mg Tablet Discontinued 40 MG PO Daily 0 February 15, 2017 12:00am October 28, 2017 2:34pm Start: 02-14-2017 End: 71-20-1119qxvj 40 mg by mouth once dailyLisinopril Discontinued 40 MG PO Daily 0 February 15, 2017 12:00am October 28, 2017 2:34pmStart: 18-79-2810avti 1 tablet by mouth once dailyLisinopril 40 mg tablet Active 40 MG PO Daily July 07, 2023 1:00am Complies with drug therapyloratadine 10 mg oral tablet (20 sources)Start: 02-15-2017 End: 54-18-2812hrxg 1 tablet by mouth once daily in the morningLoratadine 10 mg Tablet Discontinued 10 MG PO Every morning 0 February 15, 2017 12:00am October 25, 2017 11:40ammetroNIDAZOLE 500 mg oral tablet (20 sources)Nitroimidazole AntimicrobialStart: 01-06-2025 End: 21-22-7119jtqk 1 tablet by mouth three times dailyMetronidazole 500 mg tablet Discontinued 500 MG PO Three times daily January 06, 2025 12:00am Zeenat [facility] 2024 9:08amStart: 09-25-2020 End: 70-66-6275mtbi 1 tablet by mouth twice dailyMetronidazole 500 mg tablet Discontinued 500 MG PO Twice daily September 27, 2021 12:00am July 07, 2023 2:55pmphenazopyridine hydrochloride 200 mg oral tablet (18 sources)Start: 10-27-2023 End: 20-59-9975txtr 1 tablet by mouth once dailyPhenazopyridine 200 mg tablet Discontinued 200 MG PO Daily October 27, 2023 12:00am December 192:28pm Semaglutide (20 sources)Start: 02-14-2024 End: 99-49-4752nguuph 1 mg by subcutaneous injection every weekSemaglutide (Ozempic) 1 mg/dose (4 mg/3 mL) pen injector Discontinued 1 MG SUBCUT every week February 14, 2024 8:33am June 12, 2024 10:02amStart: 58-75-2095dizcqj 1 mg by subcutaneous injection every weekSemaglutide (Ozempic) 1 mg/dose (4 mg/3 mL) pen injector Active 1 MG SUBCUT every week February 14, 2024 7:33amStart: 12-20-2023 End: 81-46-6685uhrpnf 1 mg by subcutaneous injection every weekSemaglutide (Ozempic) 1 mg/dose (4 mg/3 mL) pen injector Discontinued 1 MG SUBCUT every week December 20, 2023 4:56pm February 14, 2024 8:33amStart: 12-20-2023 End: 20-91-6278jnfcfi 1 mg by subcutaneous injection every weekSemaglutide (Ozempic) 1 mg/dose (4 mg/3 mL) pen injector Discontinued 1 MG SUBCUT every week December 20, 2023 3:56pm February 14, 2024 7:33amStart: 25-82-8550lzefgv 1 mg by subcutaneous injection every weekSemaglutide (Ozempic) 1 mg/dose (4 mg/3 mL) pen injector Active 1 MG SUBCUT every week December 20, 2023 4:56pmStart: 10-27-2023 End: 67-34-0346bmxumc 0.5 mg by subcutaneous injection every week, then inject 1 mg by subcutaneous injection every weekSemaglutide (Ozempic) 1 mg/dose (4 mg/3 mL) pen injector Discontinued 1 MG SUBCUT every week 2023 11:00pm December 20, 2023 3:57pm 0.5mg (36 clicks) weekly for 4 weeks then 1mg weekly thereafterStart: 10-27-2023 End: 18-40-1573zrcgun 0.5 mg by subcutaneous injection every week, then inject 1 mg by subcutaneous injection every weekSemaglutide (Ozempic) 1 mg/dose (4 mg/3 mL) pen injector Discontinued 1 MG SUBCUT every week 2023 12:00am December 20, 2023 4:57pm 0.5mg (36 clicks) weekly for 4 weeks then 1mg weekly thereafterStart: 00-19-9607rhiznp 0.5 mg by subcutaneous injection every week, then inject 1 mg by subcutaneous injection every weekSemaglutide (Ozempic) 1 mg/dose (4 mg/3 mL) pen injector Active 1 MG SUBCUT every week 9 October 12:00am 0.5mg (36 clicks) weekly for 4 weeks then 1mg weekly thereafter Semaglutide (12 sources)Start: 09-13-2024 End: 76-54-9508Qbmovahfgun (Ozempic) 0.25 mg or 0.5 mg (2 mg/3 mL) pen injector Discontinued 0.5 MG SUBCUT every week 3 September 13, 2024 12:00am January 06, 2025 2:11pm 0.25mg once weekly for weeks 1-4Start: 52-27-5604Lqcvd: 09-13-2024 Semaglutide (Ozempic) 0.25 mg or 0.5 mg (2 mg/3 mL) pen injector Active 0.5 MG SUBCUT every week 3 September 13, 2024 12:00am 0.25mg once weekly for weeks 1-4 Semaglutide (20 sources)Start: 09-11-2024 End: 12-29-2717fhfupw 2 mg by subcutaneous injection every weekSemaglutide 2 mg/dose (8 mg/3 mL) pen injector Discontinued 2 MG SUBCUT every week 9 September 11, 2024 9:05am September 13, 2024 8:51amStart: 06-12-2024 End: 82-55-7864Oxxbeldutdz 2 mg/dose (8 mg/3 mL) pen injector Discontinued 2 MG SUBCUT every week 9 June 12, 2024 10:00am September 11, 2024 9:05am 1mg (37clicks) for at least 4 weeks, titrate to 2mg as discussedSemaglutide 2 mg/dose (8 mg/3 mL) pen injector (3 sources)Start: 09-11-2024 End: 43-46-4099kbdmgr 2 mg by subcutaneous injection every weekSemaglutide 2 mg/dose (8 mg/3 mL) pen injector Discontinued 2 MG SUBCUT every week September 11, 2024 9:05am September 13, 2024 8:51amStart: 06-12-2024 End: 50-92-3232Xzussvnkcnc 2 mg/dose (8 mg/3 mL) pen injector Discontinued 2 MG SUBCUT every week June 12, 2024 10:00am September 11, 2024 9:05am 1mg (37clicks) for at least 4 weeks, titrate to 2mg as discussedStart: 06-12-2024 Semaglutide 2 mg/dose (8 mg/3 mL) pen injector Active 2 MG SUBCUT every week June 12, 2024 10:00am 1mg (37clicks) for at least 4 weeks, titrate to 2mg as discussedtopiramate 50 mg oral tablet (20 sources)Start: 12-16-2022 End: 46-46-5296tvoy 1 tablet by mouth once dailyTopiramate 50 mg tablet Discontinued 50 MG PO Daily January 03, 2023 12:00am July 07, 2023 2:55pm Start: 46-58-8089Fzcnyafkly 50 MG Half tablet once daily for 7 days then increase to one tablet daily Orally Once a day for 30 days Dec, Not-Taking/PRNStart: 02-14-2017 End: 71-63-3611jmek 1 tablet by mouth once dailyTopiramate (Topamax) 200 mg Tablet Discontinued 200 MG PO Daily February 14, 2017 12:00am February 14, 2019 11:13amtraMADol hydrochloride 100 mg oral tablet (3 sources)Opioid AgonistStart: 01-06-2025 End: 99-91-3966Byrmoljf 100 mg tablet Discontinued 100 MG PO January 06, 2025 12:00am January 15, 2025 9:08amtriamcinolone acetonide 40 mg/ml injectable suspension (9 sources)CorticosteroidStart: 21-38-0891Yyfblun-40 Jul, 40 mg Problems Active Problems Problem ClassificationProblemDateDocumented DateEpisodic/ChronicAbdominal pain (14 sources)Left sided abdominal pain; Translations: [Unspecified abdominal pain]Onset: 30-38-0995ZbkvqruuNxzby cerebrovascular disease (20 sources)Cerebrovascular accident; Translations: [Cerebral infarction, unspecified]ChronicAdministrative/social admission (20 sources)Persons encountering health services in other specified circumstances; Translations: [Follow-up status]Onset: 03-24-2023 Resolved: 30-17-4233DudcplpfSdrymyl disorders (20 sources)Anxiety; Translations: [Anxiety disorder, unspecified]02-15-2017 ChronicCalculus of urinary tract (20 sources)Kidney stone; Translations: [Calculus of kidney]EpisodicDiabetes mellitus without complication (20 sources)Impaired fasting glycemia; Translations: [Impaired fasting glucose] EpisodicDiverticulosis and diverticulitis (20 sources)Diverticular disease; Translations: [Diverticulosis of colon (without mention of hemorrhage)]Onset: 967169-26-2830MpnjwjdP Codes: Adverse effects of medical drugs (20 sources)Adverse reaction to drug; Translations: [Adverse effect of unspecified drugs, medicaments and biological substances, initial encounter] 62-90-9943VrnhgdsjH Codes: Fall (20 sources)Fall; Translations: [Unspecified fall, initial encounter]06-04-2020 EpisodicEsophageal disorders (20 sources)Gastroesophageal reflux disease; Translations: [Gastro-esophageal reflux disease without esophagitis]Onset: 905238-02-4887GayqzocZoqxuwjyl hypertension (20 sources)Benign essential hypertension; Translations: [Benign essential hypertension]Onset: 736482-98-8070TwxhzvyZqpehbtgq and duodenitis (20 sources)Gastritis; Translations: [Gastritis, unspecified, without bleeding] 18-43-8678UudxegvoVinkmvfx; including migraine (20 sources)Migraine; Translations: [Migraine, unspecified, not intractable, without status migrainosus]72-44-3145MszbbpkKbilw valve disorders (1 source)Tricuspid valve oiqxdgifgnuza22-53-7817LknriesYwsnzjwfukgiy and screening for infectious disease (5 sources)Encounter for immunization; Translations: [Patient encounter status] Onset: 05-04-2021 Resolved: 94-76-9432FdozwfnyUswu disorders (20 sources)Major depression, single episode; Translations: [Major depressive disorder, single episode, unspecified]59-57-7407OejnaknUuhmio and vomiting (2 sources)Nausea; Translations: [Nausea]Onset: 76-86-4494EavpwskxHpskjyuvrry chest pain (20 sources)Chest pain; Translations: [Chest pain, unspecified]Onset: 03-14-2023 41-30-1733TcoibgjvFmgztzzpjppcbo (20 sources)Osteoarthritis of right knee joint; Translations: [Unilateral primary osteoarthritis, right knee]ChronicOther and ill-defined cerebrovascular disease (1 source)Cerebrovascular pqviuux32-17-6636TydvvjkPtszp and unspecified benign neoplasm (20 sources)History of polyp of colon; Translations: [Personal history of colonic polyps]82-57-2757LisqzytiVesad and unspecified benign neoplasm (1 source)Personal history of colonic polyps; Translations: [History of colon polyps]EpisodicOther circulatory disease (1 source)History of transient ischemic -15-0393MjfzicxyAsmvs connective tissue disease (4 sources)Bone spur of left foot; Translations: [Other enthesopathy of left foot and ankle]99-91-6853ZcmguxuqPexif connective tissue disease (4 sources)Capsulitis of metatarsophalangeal joint of left foot; Translations: [Other enthesopathy of left foot and ankle]04-72-8297CuuahbklSlekk gastrointestinal disorders (1 source)Swollen abdomen; Translations: [Abdominal distension (gaseous)]Onset: 33-39-2597OvasyupeRsqqp gastrointestinal disorders (2 sources)Diarrhea; Translations: [Diarrhea, unspecified]Onset: 12-03-2024 EpisodicOther gastrointestinal disorders (1 source)Abdominal rhvpytck07-74-3314YvznsyqzKmuku infections; including parasitic (20 sources)Personal history of other infectious and parasitic diseases; Translations: [History of 2019 novel coronavirus disease (COVID-19)]04-04-2020 EpisodicOther injuries and conditions due to external causes (2 sources)Unspecified injury of right wrist, hand and finger(s), initial encounterEpisodicOther injuries and conditions due to external causes (2 sources)Unspecified injury of right lower leg, initial encounterEpisodicOther liver diseases (1 source)Steatosis of xkjma36-31-4418PqyzuzoTtrgb nervous system disorders (20 sources)Disturbance in speech; Translations: [Unspecified speech disturbances]72-07-7778MxrmvggbSsakk nervous system disorders (20 sources)Numbness; Translations: [Anesthesia of skin]41-29-6301LyzvzvkmShnkj non-traumatic joint disorders (3 sources)Pain in right knee; Translations: [Pain in right knee]Onset: 98-10-4455WtfxvzfvAgyof non-traumatic joint disorders (2 sources)Pain in right wristEpisodicOther nutritional; endocrine; and metabolic disorders (20 sources)Obesity; Translations: [Obesity, unspecified]ChronicOther nutritional; endocrine; and metabolic disorders (20 sources)Body mass index 30+ - obesity; Translations: [Body mass index (BMI) 33.0-33.9, adult]Onset: 012671-70-6708KhsxozeLgyse nutritional; endocrine; and metabolic disorders (9 sources)Lipoprotein deficiency disorder; Translations: [Lipoprotein deficiency]ChronicOther nutritional; endocrine; and metabolic disorders (20 sources)Metabolic syndrome X; Translations: [Metabolic syndrome]09-04-2023 ChronicOther nutritional; endocrine; and metabolic disorders (16 sources)Obesity, unspecified; Translations: [Obesity, unspecified]Chronic Other nutritional; endocrine; and metabolic disorders (1 source)Lipoprotein deficiency; 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]ChronicOther nutritional; endocrine; and metabolic disorders (1 source)Metabolic syndrome; Translations: [Metabolic syndrome]ChronicOther nutritional; endocrine; and metabolic disorders (1 source)Body mass index (BMI) 34.0-34.9, adultChronicOther nutritional; endocrine; and metabolic disorders (20 sources)High density lipoprotein deficiency ; Translations: [Lipoprotein deficiency]80-14-4113PvuhfvtUgosb nutritional; endocrine; and metabolic disorders (20 sources)Obese class I; Translations: [Obesity, unspecified]55-86-2661Hblgfkl Other nutritional; endocrine; and metabolic disorders (2 sources)Body mass index (BMI) 32.0-32.9, adult; Translations: [Body mass index (BMI) 32.0-32.9, adult]Onset: 55-85-5427TeshgoeEcipa nutritional; endocrine; and metabolic disorders (1 source)Obesity caused by energy nejmorpgq07-40-1942MimvpmnKyznf screening for suspected conditions (not mental disorders or infectious disease) (2 sources)Imaging of abdomen abnormal; Translations: [Abnormal findings on diagnostic imaging of other abdominal regions, including retroperitoneum]Onset: 63-99-2830QmrayjlbKvluk skin disorders (20 sources)Cyst of scalp; Translations: [Follicular cyst of the skin and subcutaneous tissue, unspecified]75-64-0365HboxlqeoHyute upper respiratory disease (1 source)Seasonal allergic htualcme90-13-8269DmchdskNukyf upper respiratory infections (10 sources)Sinusitis; Translations: [Chronic sinusitis, unspecified]Chronic Other upper respiratory infections (20 sources)Upper respiratory infection; Translations: [Acute upper respiratory infection, unspecified]73-48-3558DonnrvbtNwouvnbtts disorders (not diabetes) (1 source)Cyst of shwrazcz20-93-2991MmldazwtUzcrguut codes; unclassified (2 sources)Never smoked tobacco; Translations: [Other specified health status] Onset: 984122-51-1717TzywuubxHtqejiny codes; unclassified (2 sources)Other specified health status; Translations: [Other specified health status]Onset: 43-68-0846NgtizpdhFoxhxdb and strains (20 sources)Sprain of knee; Translations: [Sprain of unspecified site of left knee, initial encounter]24-85-5971OkwnjgqvMokaand (4 sources)Syncope and collapse; Translations: [SYNCOPE AND COLLAPSE]Onset: 22-64-8510BkwqzektWvzozly disorders (20 sources)Thyroid nodule; Translations: [Nontoxic single thyroid nodule] 40-72-2070TciewuqMxpjfzblqbhm (2 sources)CONTACT W/AND (SUSP) EXPOS COVID-19; Translations: [CONTACT W/AND (SUSP) EXPOS COVID-19]Onset: 85-55-4495Wbqzm infection (1 source)COVID-19; Translations: [COVID-19]Onset: 04-16-2022 Past or Other Problems Problem ClassificationProblemDateDocumented DateEpisodic/ChronicUnclassified (3 sources)Never smoked tobacco; Translations: [Never a smoker]Unclassified (1 source)CONTACT W/AND (SUSP) EXPOS COVID-19; Translations: [CONTACT W/AND (SUSP) EXPOS COVID-19]Onset: 04-13-2022 Results Test NameValueInterpretationReference RangeFaciljesseLon 02-11-2025L Specimen: [id number] Received: 02/11/25 Status: MARYURI Winstonzach Num: [id number] Spec Type: Surgical Subm Dr: Stella Palmer DO Tissues: A Colon Biopsy (SM BOWEL BX) B Gastric Biopsy (GASTRIC BX) C Gastric Biopsy (GASTRIC POLYP) Procedures: HE/9, Gross/Micro L4/3, H PYLORI, IHC First AB Age/ Patient Sex Location Account Attending Physician Nancy Hooper 64/F [id number] Stella Palmer DO SPEC NUM: [id number] RECD: 02/11/25 STATUS: MARYURI ANGELICA NUM: [id number] SERG: 02/11/[address] [facility] [address]: Stella Palmer DO ENTERED: 02/11/25 CAM KHAN: SPEC TYPE: Surgical DEPT: S ENTERED BY: [id number] RECV BY: [id number] ORDERED: HE/9, Gross/Micro L4/3, H PYLORI, IHC First AB ORDERED: HE/9, Gross/Micro L4/3, H PYLORI, IHC First AB Pathological Diagnosis A. Small bowel, biopsy: Duodenal mucosa without significant histologic alteration B. Stomach, biopsy: Oxyntic mucosa with intestinal metaplasia No evidence of dysplasia or invasive malignancy An immunostain for H. pylori is negative C. Stomach, polypectomy: Fundic gland polyp No evidence of dysplasia or malignancy Multiple levels examined Clinical Information History of diverticulosis, GERD, Part A rule out celiac, Part B rule out H. pylori Gross Description Part A is received in formalin labeled with the patients date of , and Rufus, small bowel BX are 2 wisdom-gudino, focally erythematous, friable, 0.3 and 0.4 cm in greatest dimension tissue bits. The specimen is entirely submitted in a single cassette. (1, ns, F28-9919 A) ALPHONSO Specimen: [id number] Received: 02/11/25 Status: MARYURI Ludwig Num: [id number] Spec Type: Surgical Subm Dr: Stella Palmer DO Tissues: A Colon Biopsy (SM BOWEL BX) B Gastric Biopsy (GASTRIC BX) C Gastric Biopsy (GASTRIC POLYP) Procedures: HE/9, Gross/Micro L4/3, H PYLORI, IHC First AB Patient: Nancy Hooper [id number] (Continued) Specimen: [id number] Received: 02/11/25 (Continued) Gross Description (Continued) Signed (signature on file) Michelle Hendrix DO 02/12/25 1501 Specimen: [id number] Received: 02/11/25 Status: MARYURI Ludwig Num: [id number] Spec Type: Surgical Subm Dr: Stella Palmer DO Tissues: A Colon Biopsy (SM BOWEL BX) B Gastric Biopsy (GASTRIC BX) C Gastric Biopsy (GASTRIC POLYP) Procedures: HE/9, Gross/Micro L4/3, H PYLORI, IHC First AB Patient: Nancy Hooper [id number] (Continued) Specimen: [id number] Received: 02/11/25 (Continued) Gross Description (Continued) Part B is received in formalin labeled with the patients date of , and Rufus, gastric BX is a wisdom-gudino, focally erythematous, friable, 0.3 cm in greatest dimension tissue bit. The specimen is entirely submitted in a single cassette. (1, ns, C56-2831 B) Part C is received in formalin labeled with the patients date of , and Rufus, gastric polyp is a wisdom-gudino, focally erythematous, friable, 0.2 cm in greatest dimension tissue bit. The specimen is entirely submitted in a single cassette. (1, ns, C10-2082 C) Microscopic Description A-C: Microscopic examination performed CPT Codes 22985 x 3, 51321 Specimen: [id number] Received: 02/11/25 Status: MARYURI Ludwig Num: [id number] Spec Type: Surgical Subm Dr: Stella Palmer DO Tissues: A Colon Biopsy (SM BOWEL BX) B Gastric Biopsy (GASTRIC BX) C Gastric Biopsy (GASTRIC POLYP) Procedures: HE/9, Gross/Micro L4/3, H PYLORI, IHC First AB Patient: Nancy Hooper [id number] (Continued) Signed (signature on file) Michelle Almanza (more content not included)...[facility] Physician GroupX-ray reportOrdered By: Juwan Sanchez on 40-33-5256Iyskw reportKETTERING HEALTH [facility] [address] [place] [address] XRay Report Signed Patient: Nancy Hooper MR#: [id number] : 1960 Acct:[id number] Age/Sex: 64 / F ADM Date: 5 [place] [facility] [place]: Type[facility] Attending Dr: John Benson II, MD Copies to: John Benson MD~ Ordering Provider: John Benson MD Date of Service: 12/26/24 XR/XR knee RT 4V*: M25.561 - Pain in right knee 4 views right knee plain film COMPARISON: 08/08/2022 HISTORY: Right knee pain for months ACUTE FINDINGS: No acute findings DEGENERATIVE CHANGE: Progress of the medial degeneration with ftjg-qp-mvgp contact patellofemoral and lateral degeneration superior patellar enthesophyte SOFT TISSUE FINDINGS: Unremarkable JOINT EFFUSION: Small POSTOP CHANGES: None BONE MINERALIZATION: Adequate XR/XR knee RT 4V* IMPRESSION: Progression of extensive medial degeneration Impression dictated by: Juwan Sanchez M.D. 12/26/2024 11:45 AM Dictation Location: [place] [address] Transcribed By: [facility] 12/26/24 1144 Dictated By: Juwan Sanchez DO 12/26/24 1144 Signed By: 12/26/24 1145 [facility] Centertudy reportKETTERING [facility] [address] [place] [address] XRay Report Signed Patient: Nancy Hooper MR#: [id number] : 1960 Acct:[id number] Age/Sex: 64 / F ADM Date: 5 Loc: [facility] Room: Type: REG CLI Attending Dr: John Benson II, MD Copies [...] Sanchez M.D. 12/26/2024 11:44 AM Dictation Location: [place] [address] Transcribed By: [facility] 12/26/24 1144 Dictated By: Juwan Sanchez DO 12/26/24 1142 Signed By: 12/26/24 1144 [facility] HospitalXR [facility] RT 4V*on 96-46-7202AN knee RT 4V* [facility] [place] [address] XRay Report Signed Patient: Nancy Hooper MR#: [id number] 68 : 1960 Acct:[id number] Age/Sex: 64 / F ADM Date: 12/26/24 Loc: [facility] Room: Type: REG CLI Attending Dr: John Benson II, MD Copies to: John Benson MD Ordering Provider: John Benson MD Date of Service: 12/26/24 XR/XR knee RT 4V*: M25.561 - Pain in right knee 4 views right knee plain film COMPARISON: 08/08/2022 HISTORY: Right knee pain for months ACUTE FINDINGS: No acute findings DEGENERATIVE CHANGE: Progress of the medial degeneration with rudf-jf-xlcv contact patellofemoral and lateral degeneration superior patellar enthesophyte SOFT TISSUE FINDINGS: Unremarkable JOINT EFFUSION: Small POSTOP CHANGES: None BONE MINERALIZATION: Adequate XR/XR knee RT 4V* IMPRESSION: Progression of extensive medial degeneration Impression dictated by: Juwan Sanchez M.D. 12/26/2024 11:45 AM Dictation Location: [place] [address] Transcribed By: [facility] 12/26/24 1145 Dictated By: Juwan Sanchez DO 12/26/24 1144 Signed By: 12/26/24 1145[facility] Physician GroupXR pelvis 1-2Von 47-98-6127US pelvis 1-2VKETTERING HEALTH WASHINGTON [facility] [address] [place] [address] XRay Report Signed Patient: Nancy Hooper MR#: [id number] 68 : 1960 Acct:[id number] Age/Sex: 64 / F ADM Date: 12/26/24 [place] [facility] [place]: Type: [facility] Attending Dr: John Benson II, MD Copies [...] Sanchez M.D. 12/26/2024 11:44 AM Dictation Location: [place] [address] Transcribed By: [facility] 12/26/24 1144 Dictated By: Juwan Sanchez DO 12/26/24 1142 Signed By: 12/26/24 1144[facility] Physician GroupAppearance of UrineOrdered By: Rafael Salamanca on 79-23-6304Qjjbmhzhqo (U)ClearNormalClearGalion HospitalComment on above:Order Comment: Name Collection Type:: Clean- Voided MidstreamPerformed By: #### CUU, ADDONUAPLUS ####[facility] [id number] USABacteria [Presence] in Urine by AutomatedOrdered By: Rafael Salamanca on 60-02-8455Vcihzryh Auto Ql (U)None seen [HPF]None SeenGalion HospitalBilirubin Test strip Ql (U) Ordered By: Rafael Salamanca on 01-63-9488Gjilxayet Ql (U)NegativeNegativeGalion HospitalCalcium oxalate crystals [Presence] in Urine by Computer assisted methodOrdered By: Rafael Salamanca on 60-88-2696Qmysyiy oxalate crystals Computer assisted Ql (U)3+ [HPF]Galion HospitalColor of Urine by AutoOrdered By: Rafael Salamanca on 40-95-4761Lajwv (U)Light-yellowNormalYellow Galion HospitalComment on above:Order Comment: Name Collection Type:: Clean-Voided MidstreamPerformed By: #### CUU, ADDONUAPLUS ####[facility] [address] [id number] USADipstick and Microscopicon 63-18-8019Vvtczsvm,UrineNone SeenNormalNone SeenThe [facility] Physician GroupComment on above:Order Comment: Name Collection Type:: Clean- Voided MidstreamPerformed By: #### CUU, ADDONUAPLUS ####[facility] [address] [id number] USABilirubin,UrineNegativeNormal NegativeThe [facility] Physician GroupComment on above:Order Comment: Name Collection Type:: Clean-Voided MidstreamPerformed By: #### CUU, ADDONUAPLUS ####[address] USACalcium Oxalate Crystals,Urine3+ [HPF]NormalHealthmark Regional Medical Center Physician GroupComment on above:Order Comment: Name Collection Type:: Clean-Voided MidstreamPerformed By: #### CUU, ADDONUAPLUS ####[address] USAGlucose Ql (U)NormalNormalNormalThSt. Luke[facility] Physician GroupComment on above:Order Comment: Name Collection Type:: Clean- Voided MidstreamPerformed By: #### CUU, ADDONUAPLUS ####[address] USAHyaline Casts,UrineNoneNormal 0-8The [facility] Physician GroupComment on above:Order Comment: Name Collection Type:: Clean-Voided MidstreamPerformed By: #### CUU, ADDONUAPLUS ####[address] USAMucus,UrineRareNormal The [facility] Physician GroupComment on above:Order Comment: Name Collection Type:: Clean-Voided MidstreamResult Comment: PERFORMED BY: [facility] [address] [place] [address] PATHOLOGIST PLODDER OPERATOR BASSAM BRADFORD M.D.Performed By: #### CUU, ADDONUAPLUS ####[address] [id number] USANitrite,UrineNegativeNormal NegativeHealthmark Regional Medical Center Physician GroupComment on above:Order Comment: Name Collection Type:: Clean-Voided MidstreamPerformed By: #### CUU, ADDONUAPLUS ####[address] [id number] USAOccult Blood,UrineTraceNormalNegativeThe [facility] Physician GroupComment on above: Order Comment: Name Collection Type:: Clean-Voided MidstreamPerformed By: #### CUU, ADDONUAPLUS ####[address] [address] USAProtein,UrineNegativeNormalNegativeThe [facility] Physician GroupComment on above:Order Comment: Name Collection Type:: Clean-Voided MidstreamPerformed By: #### CUU, ADDONUAPLUS ####[address] USARBC,Usgyh9-4Xmdlcd1-5Vsi [facility]ician Group Comment on above:Order Comment: Name Collection Type:: Clean-Voided Midstream Performed By: #### CUU, ADDONUAPLUS ####[address] USASpecificy [place],Urine1.273Aowk1.001-1.030The [facility] Physician GroupComment on above:Order Comment: Name Collection Type:: Clean-Voided MidstreamPerformed By: #### CUU, ADDONUAPLUS ####[address] USASquamous Epithelial Cell,Urine 4-1Rehysp3-4Glt [facility] Physician GroupComment on above:Order Comment: Name Collection Type:: Clean-Voided MidstreamPerformed By: #### CUU, ADDONUAPLUS ####[address] [place] Urobilinogen,UrineNormalNormalNormalThe [facility] Physician GroupComment on above:Order Comment: Name Collection Type:: Clean-Voided MidstreamPerformed By: #### CUU, ADDONUAPLUS ####[address] USAWBC,Zbaeu6-1Vkussx8-0Muy [facility]ician Group Comment on above:Order Comment: Name Collection Type:: Clean-Voided Midstream Performed By: #### CUU, ADDONUAPLUS ####[address] USAEpithelial cells.squamous [#/area] in Urine sediment by Automated countOrdered By: Rafael Salamanca on 45-15-4222Wsybylpsxa cells.squamous Auto (Urine sed) [#/Area]1-2 [HPF]0-2FWexner Medical CenterErythrocytes [#/area] in Urine sediment by Automated countOrdered By: Rafael Salamanca on 92-74-2390PXC Auto (Urine sed) [#/Area]1-2 [HPF]0-4FWexner Medical CenterGlucose [Mass/volume] in Urine by Test stripOrdered By: Rafael Salamanca on 92-08-7770Zqzlvrb Test strip (U) [Mass/Vol]Normal mg/dLNormal [facility] HospitalHemoglobin Test strip Ql (U)Ordered By: Rafael Salamanca on 61-30-8002Zuuburahgz Ql (U)TraceHighNegMercy Health St. Joseph Warren HospitalHyaline casts [#/area] in Urine sediment by Automated countOrdered By: Rafael Salamanca on 74-10-0699Oortcwc casts Auto (Urine sed) [#/Area]None [LPF]0-8 [facility] HospitalKetones [Presence] in Urine by Test strip Ordered By: Rafael Salamanca on 02-08-5350Sjtkkio Ql (U)NegativeNormalNegative [facility] HospitalComment on above:Order Comment: Name Collection Type:: Clean-Voided MidstreamPerformed By: #### CUU, ADDONUAPLUS ####[facility] [address] [facility], [place] USALeukocyte esterase [Presence] in Urine by Test stripOrdered By: Rafael Salamanca on 33-73-9205Qyslikoqy esterase Test strip Ql (U)NegativeNormalNegMercy Health St. Joseph Warren HospitalComment on above:Order Comment: Name Collection Type:: Clean-Voided MidstreamPerformed By: #### CUU, ADDONUAPLUS ####[facility] [address] [facility], [place] USALeukocytes [#/area] in Urine sediment by Automated countOrdered By: Rafael Salamanca on 49-53-9095WUJ Auto (Urine sed) [#/Area]3-4 [HPF]0-4FWexner Medical CenterMucus [Presence] in Urine by AutomatedOrdered By: Rafael Salamanca on 23-55-3430Evdco Auto Ql (U)Rare [LPF] [facility] HospitalNitrite Test strip Ql (U)Ordered By: Rafael Salamanca on 95-83-6150Qucelpd Ql (U)NegativeNegativeGalion Hospital Protein Test strip (U) [Mass/Vol]Ordered By: Rafael Salamanca on 45-32-2038Emqmgyh (U) [Mass/Vol]NegativeNegativeSumma Health Wadsworth - Rittman Medical Centerpecific gravity Test strip (U) [Rel density]Ordered By: Rafael Salamanca on 59-43-6886Bwiakxej gravity (U) [Rel density]1.951Mspy1.001-1.030[facility] Urine Cultureon 30-16-8544Cvjcjzio identified Cx Nom (U)<9,000 colonies/ml mixed bacterial skin contaminants 2 Days PERFORMED BY: [facility] [address] [place] [address] PATHOLOGIST PLODDER OPERATOR BASSAM BRADFORD M.D.NormalHealthmark Regional Medical Center Physician GroupComment on above: Performed By: #### CUU, ADDONUAPLUS ####[address] [place], [place] USAUrine cultureOrdered By: Rafael Salamanca on 12-24-2024 Bacteria identified Cx Nom (U)2 DaysGalion Hospital Urobilinogen Test strip (U) [Mass/Vol]Ordered By: Rafael Salamanca on 12-24-2024 Urobilinogen (U) [Mass/Vol]Normal mg/dLNormalGalion HospitalpH of Urine by Test stripOrdered By: Rafael Salamanca on 70-95-3350jI (U)5.5 [pH]Normal 5.0-9.0[facility] HospitalComment on above:Order Comment: Name Collection Type:: Clean-Voided MidstreamPerformed By: #### CUU, ADDONUAPLUS ####[address] [place], [place] USAAlanine aminotransferase [Enzymatic activity/volume] in Serum or PlasmaOrdered By: Renny Walton on 33-63-0441JTO [Catalytic activity/Vol]16 U/LNormal7-52[facility] HospitalComment on above:Performed By: #### KARLOSAR CBC, EBS A1C, PILLAR LIPID, PILLAR CMP #### [facility] [id number] USAAlbumin [Mass/volume] in Serum or Plasma by Bromocresol green (BCG) dye binding methoOrdered By: Renny Walton on 29-68-6479Ddsotjf BCG dye [Mass/Vol]4.2 g/dL3.5-5.7FWexner Medical CenterAlkaline phosphatase [Enzymatic activity/volume] in Serum or PlasmaOrdered By: Renny Walton on 00-86-6696NEM [Catalytic activity/Vol]59 U/BVqjzrh20-112PpqizixjbGalion HospitalComment on above:Performed By: #### MARYANN CBC, EBS A1C, PILLAR LIPID, PILLAR CMP #### [facility] [address] USAAppearance of UrineOrdered By: Rafael Salamanca on 12-20-2024 Appearance (U)ClearNormalClearGalion HospitalComment on above: Order Comment: Name Collection Type:: Clean-Voided MidstreamPerformed By: #### CUU, ADDONUAPLUS #### [facility] [id number] USAAspartate aminotransferase [Enzymatic activity/volume] in Serum or PlasmaOrdered By: Renny Walton on 13-51-2602OKX [Catalytic activity/Vol] 13 U/VPknzfc49-29FlltkthrkGalion HospitalComment on above:Performed By: #### PILLAR CBC, EBS A1C, PILLAR LIPID, PILLAR CMP #### [facility] [id number] USABacteria [Presence] in Urine by AutomatedOrdered By: Rafael Salamanca on 94-75-1607Iedkwtmk Auto Ql (U)None seen [HPF]None SeenGalion HospitalBasophils [#/volume] in Blood by Automated countOrdered By: Renny Walton on 39-74-8730Cmqjaofsw (Bld) [#/Vol]0.1 10*3/uLNormal0.0-0.2 [facility] HospitalComment on above:Result Comment: PERFORMED BY: [place] [address] PATHOLOGIST PLODDER OPERATOR BASSAM BRADFORD M.D.Performed By: #### PILLAR CBC, EBS A1C, PILLAR LIPID, PILLAR CMP #### [place] [address] USABasophils/100 leukocytes in Blood by Automated count Ordered By: Renny Walton on 20-04-1993Boyknrdrb/100 WBC (Bld)1.1 %Normal.[facility] HospitalComment on above:Performed By: #### PILLAR CBC, EBS A1C, PILLAR LIPID, PILLAR CMP #### [place] [address] USABilirubin Test strip Ql (U)Ordered By: Rafael Salamanca on 25-85-4678Odlirzaxl Ql (U)NegativeNegativeGalion Hospital Bilirubin.total [Mass/volume] in Serum or PlasmaOrdered By: Renny Walton on 62-51-2541Nypqilxzi [Mass/Vol]0.5 mg/dLNormal0.3-1.0[facility] HospitalComment on above:Performed By: #### PILLAR CBC, EBS A1C, PILLAR LIPID, PILLAR CMP #### [place] [address] USABlood estimated average glucose determination by estimation from glycated hemoglobinOrdered By: Renny Walton on 02-12-9627Kffjsif glucose Estimated from glycated hemoglobin (Bld) [Mass/Vol]117 mg/dLGalion HospitalCalcium [Mass/volume] in Serum or PlasmaOrdered By: Renny Walton on 83-10-0552Sfzycyy [Mass/Vol]9.6 mg/dLNormal8.6-10.3FWexner Medical CenterComment on above:Performed By: #### PILLAR CBC, EBS A1C, PILLAR LIPID, PILLAR CMP #### [address] [place] [address] USACarbon dioxide, total [Moles/volume] in Serum or Plasma Ordered By: Renny Walton on 07-96-8715LZ2 [Moles/Vol]28.9 mmol/NBkivde55.0-31.0 [facility] HospitalComment on above:Performed By: #### PILLAR CBC, EBS A1C, PILLAR LIPID, PILLAR CMP #### [facility] [id number] USAChloride [Moles/volume] in Serum or PlasmaOrdered By: Renny Walton on 68-44-4529Qftcgyts [Moles/Vol]106 mmol/KTypedd76-451HrzeebdayGalion HospitalComment on above:Performed By: #### PILLAR CBC, EBS A1C, PILLAR LIPID, PILLAR CMP #### [facility] [id number] USACholesterol [Mass/volume] in Serum or PlasmaOrdered By: Renny Walton on 82-17-3153Xseezzmjmdv [Mass/Vol]178 mg/oIAfzzzi293-539YqpiinagcGalion HospitalComment on above:Chol less than 200 mg/dl low riskChol 201-239 mg/dl borderline riskChol 240 mg/dl and greater high riskResult Comment: Chol less than 200 mg/dl low risk Chol 201-239 mg/dl borderline risk Chol 240 mg/dl and greater high riskPerformed By: #### PILLAR CBC, EBS A1C, PILLAR LIPID, PILLAR CMP #### [facility] [id number] USACholesterol in HDL [Mass/volume] in Serum or PlasmaOrdered By: Renny Walton on 94-97-8977Vhwnwegfosr in HDL [Mass/Vol]52 mg/rUGyxido92-03 [facility] HospitalComment on above:HDL CHOL ATP-III CLASSIFICATION Cardiovascular RiskHDL > or equal to 60 mg/dL LOWHDL < 40 mg/dL HIGHResult Comment: HDL CHOL ATP-III CLASSIFICATION Cardiovascular Risk HDL > or equal to 60 mg/dL LOW HDL < 40 mg/dL HIGHPerformed By: #### PILLAR CBC, EBS A1C, PILLAR LIPID, PILLAR CMP #### [facility] [address] [place] [address] USACholesterol in LDL Calc [Mass/Vol]Ordered By: Renny Walton on 46-28-1460Arclgcklfaz in LDL [Mass/Vol]90 mg/dL0-100[facility] HospitalComment on above:LDL ATP III CLASSIFICATIONLDL less than 100 mg/dL OptimalLDL 100-129 mg/dL Near or above qdqvnblYRC492-360 mg/dL Borderline highLDL 160-189 mg/dL HighLDL greater than 189 mg/dL Very highCholesterol in VLDL Calc [Mass/Vol]Ordered By: Renny Walton on 59-50-3601Yrfxgxpxlqy in VLDL [Mass/Vol]35 mg/dLGalion HospitalColor of Urine by AutoOrdered By: Rafael Salamanca on 10-75-7337Cwhhv (U)Light-yellowNormalYellowGalion HospitalComment on above:Order Comment: Name Collection Type:: Clean-Voided MidstreamPerformed By: #### CUU, ADDONUAPLUS #### [facility] [address] [place] [address] USACreatinine [Mass/volume] in Serum or PlasmaOrdered By: Renny Walton on 75-45-1097Drgkuqjjzx [Mass/Vol]0.61 mg/dLNormal0.60-1.20[facility] HospitalComment on above:Performed By: #### PILLAR CBC, EBS A1C, PILLAR LIPID, PILLAR CMP #### [facility] [address] [place] [address] USADipstick and Microscopicon 28-54-4516Tdsqfepm,UrineNone SeenNormalNone SeenThe [facility] Physician GroupComment on above:Order Comment: Name Collection Type:: Clean-Voided MidstreamPerformed By: #### CUU, ADDONUAPLUS #### [facility] [address] [place] [address] USABilirubin,UrineNegativeNormalNegativeThe [facility] Physician GroupComment on above:Order Comment: Name Collection Type:: Clean- Voided MidstreamPerformed By: #### CUU, ADDONUAPLUS #### [place] [address] USAGlucose Ql (U)NormalNormalNormalThe [facility] Physician GroupComment on above:Order Comment: Name Collection Type:: Clean-Voided MidstreamPerformed By: #### CUU, ADDONUAPLUS #### [place] [address] USAHyaline Casts,UrineNoneNormal0-8The [facility] Physician GroupComment on above:Order Comment: Name Collection Type:: Clean-Voided MidstreamPerformed By: #### CUU, ADDONUAPLUS #### [place] [address] USAMucus,UrineRareNormalThe [facility] Physician GroupComment on above:Order Comment: Name Collection Type:: Clean-Voided MidstreamResult Comment: PERFORMED BY: [place] [address] PATHOLOGIST PLODDER OPERATOR BASSAM BRADFORD M.D.Performed By: #### CUU, ADDONUAPLUS #### [place] [address] USANitrite,UrineNegativeNormalNegativeHealthmark Regional Medical Center Physician GroupComment on above:Order Comment: Name Collection Type:: Clean-Voided MidstreamPerformed By: #### CUU, ADDONUAPLUS #### [place] [address] USAOccult Blood,Urine1+NormalNegativeThe [facility] Physician GroupComment on above:Order Comment: Name Collection Type:: Clean-Voided MidstreamResult Comment: PERFORMED BY: [place] [address] PATHOLOGIST PLODDER OPERATOR BASSAM BRADFORD M.D.Performed By: #### CUU, ADDONUAPLUS #### [place] [address] USAProtein,UrineNegativeNormalNegativeThe [facility] Physician GroupComment on above:Order Comment: Name Collection Type:: Clean-Voided MidstreamPerformed By: #### CUU, ADDONUAPLUS #### [place] [address] USARBC,Zfsre8-5Nriaxi7-1Eii [facility] Physician GroupComment on above:Order Comment: Name Collection Type:: Clean-Voided MidstreamPerformed By: #### CUU, ADDONUAPLUS #### [place] [address] USASpecificy Chacon,Urine1.912Equkcm2.001-1.030The [facility] Physician GroupComment on above:Order Comment: Name Collection Type:: Clean- Voided MidstreamPerformed By: #### CUU, ADDONUAPLUS #### [place] [address] USASquamous Epithelial Cell,Yjwld6-9Aeoaur9-1[facility] Physician GroupComment on above:Order Comment: Name Collection Type:: Clean- Voided MidstreamPerformed By: #### CUU, ADDONUAPLUS #### [place] [address] USAUrobilinogen,UrineNormalNormalNormHCA Florida [facility] Physician GroupComment on above:Order Comment: Name Collection Type:: Clean- Voided MidstreamPerformed By: #### CUU, ADDONUAPLUS #### [place] [address] USAWBC,Kngny4-4Cafhaw4-9Wey [facility] Physician GroupComment on above:Order Comment: Name Collection Type:: Clean-Voided MidstreamPerformed By: #### CUU, ADDONUAPLUS #### [place] [address] USAEBS [address]C with [address]imated [address] Gluon 09-09-5069Gridxvl [Mass/Vol]117 mg/dLNoCape Fear Valley Medical Center Physician GroupComment on above:Result Comment: PERFORMED BY: [place] [address] PATHOLOGIST PLODDER OPERATOR BASSAM BRADFORD M.D.Performed By: #### PILLAR CBC, EBS A1C, PILLAR LIPID, PILLAR CMP ####[facility] [address] [place] [address] USAEmployee Comp Metabolic Panelon 39-55-9625Odbugeq [Mass/Vol]4.2 g/dLNormal 3.5-5.7The [facility] Physician GroupComment on above:Performed By: #### PILLAR CBC, EBS A1C, PILLAR LIPID, PILLAR CMP #### [facility] [address] [place] [address] USAGFR/1.73 sq M.predicted MDRD (S/P/Bld) [Vol rate/Area] mL/min/{1.73_m2}NormalThe [facility] Physician GroupComment on above:Performed By: #### PILLAR CBC, EBS A1C, PILLAR LIPID, PILLAR CMP #### [facility] [address] [place] [address] USAEmployee Complete Blood Counton 53-16-5910Aefl Corpuscular HGB Conc33.6 g/fGXgrrjc34.0-35.0The [facility] Physician GroupComment on above: Performed By: #### PILLAR CBC, EBS A1C, PILLAR LIPID, PILLAR CMP #### [facility] [address] [place] [address] USANRBC%0.0 /100{WBC}Normal0-0.5The [facility] Physician Group Comment on above:Performed By: #### PILLAR CBC, EBS A1C, PILLAR LIPID, PILLAR CMP #### [facility] [address] [place] [address] USAWhite Blood Count7.4 [CFU]/mLNormal3.8-11.6The [facility] Physician GroupComment on above:Performed By: #### PILLAR CBC, EBS A1C, PILLAR LIPID, PILLAR CMP #### [facility] [address] [place] [address] USAEmployee Lipid Profileon 72-26-2333MAC Cholesterol,Bkuiqqqtdb69 mg/dLNormal0-100The [facility] Physician GroupComment on above:Result Comment: LDL ATP III CLASSIFICATION LDL less than 100 mg/dL Optimal LDL 100-129 mg/dL Near or above optimal LDL 130-159 mg/dL Borderline high LDL 160-189 mg/dL High LDL greater than 189 mg/dL Very highPerformed By: #### PILLAR CBC, EBS A1C, PILLAR LIPID, PILLAR CMP #### [facility] [id number] USATriglyceride w/Qjxxxs267 mg/dLHigh0-149The [facility] Physician GroupComment on above:Result Comment: TRIG ATP III CLASSIFICATION TRIG less than 150 mg/dL Normal TRIG 150-199 mg/dL Borderline high TRIG 200-500 mg/dL High TRIG greater than 500 mg/dL Very high Standard traceable to the Center for Disease Conrtrol and Prevention (CDC) test method.Performed By: #### PILLAR CBC, EBS A1C, PILLAR LIPID, PILLAR CMP #### [facility] [address] [place] [address] USAVLDL MBEUTANTNVA12 mg/dLNormalThe [facility] Physician GroupComment on above:Performed By: #### PILLAR CBC, EBS A1C, PILLAR LIPID, PILLAR CMP #### [facility] [address] [place] [address] USAEosinophils [#/volume] in Blood by Automated countOrdered By: Renny Walton on 73-32-8244Dkdyzasbkom (Bld) [#/Vol]0.1 10*3/uLNormal0.0-0.45 [facility] HospitalComment on above:Performed By: #### PILLAR CBC, EBS A1C, PILLAR LIPID, PILLAR CMP #### [facility] [id number] USAEosinophils/100 leukocytes in Blood by Automated count Ordered By: Renny Walton on 09-87-4346Ygpjdkucpwu/100 WBC (Bld)1.6 %Normal. [facility] HospitalComment on above:Performed By: #### PILLAR CBC, EBS A1C, PILLAR LIPID, PILLAR CMP #### [facility] [address] [place] [address] USAEpithelial cells.squamous [#/area] in Urine sediment by Automated countOrdered By: Rafael Salamanca on 29-87-3997Toratsicii cells.squamous Auto (Urine sed) [#/Area]1-2 [HPF]0-2FWexner Medical Center Erythrocyte distribution width [Ratio] by Automated countOrdered By: Renny Walton on 54-95-7645Yjwfoiolwqt distribution width (RBC) [Ratio]13.3 %Jxhaad43.9-15.3 [facility] HospitalComment on above:Performed By: #### KARLOSAR CBC, EBS A1C, PILLAR LIPID, PILLAR CMP #### [facility] [id number] USAErythrocytes [#/area] in Urine sediment by Automated count Ordered By: Rafael Salamanca on 78-38-1070JFF Auto (Urine sed) [#/Area]1-2 [HPF]0-4 [facility] HospitalErythrocytes [#/volume] in Blood by Automated countOrdered By: Renny Walton on 64-47-7535YLU (Bld) [#/Vol]4.84 10*6/uLNormal 3.60-5.00[facility] HospitalComment on above:Performed By: #### PILLAR CBC, EBS A1C, PILLAR LIPID, PILLAR CMP #### [facility] [id number] USAGlucose [Mass/volume] in Serum or PlasmaOrdered By: Renny Walton on 57-84-8575Xjunfef [Mass/Vol]111 mg/aMJxxb12-501WqqufpdxbGalion HospitalComment on above:ADA recommended reference rangeResult Comment: ADA recommended reference rangePerformed By: #### PILLAR CBC, EBS A1C, PILLAR LIPID, PILLAR CMP #### [facility] [id number] USAGlucose [Mass/volume] in Urine by Test stripOrdered By: Rafael Salamanca on 40-74-9836Bzgijrr Test strip (U) [Mass/Vol]Normal mg/dLNormal [facility] HospitalHematocrit [Volume Fraction] of Blood by Automated countOrdered By: Renny Walton on 01-90-3927Etguqvigse (Bld) [Volume fraction]43.0 %Uksnib33.0-46.4FWexner Medical CenterComment on above: Performed By: #### PILLAR CBC, EBS A1C, PILLAR LIPID, PILLAR CMP #### [facility] [address] [place] [address] USAHemoglobin A1c measurementOrdered By: Renny Walton on 92-35-7858JeX8l (Bld) [Mass fraction]5.7 %High4.3-5.6FWexner Medical CenterComment on above:Increased risk for diabetes: 5.7 - 6.4diabetes: >6.4glycemic control for adults with diabetes: <7.0Result Comment: Increased risk for diabetes: 5.7 - 6.4 diabetes: >6.4 glycemic control for adults with diabetes: <7.0Performed By: #### PILLAR CBC, EBS A1C, PILLAR LIPID, PILLAR CMP ####[facility] [address] [place] [address] USAHemoglobin Test strip Ql (U)Ordered By: Rafael Salamanca on 80-74-0988Ohwtbeqgeb Ql (U)1+HighNegMercy Health St. [facility] Hospital Hemoglobin [Mass/volume] in BloodOrdered By: Renny Walton on 50-30-2281Gyyeixfvip (Bld) [Mass/Vol]14.5 g/oSEjchqj78.8-15.4FWexner Medical CenterComment on above:Performed By: #### PILLAR CBC, EBS A1C, PILLAR LIPID, PILLAR CMP #### [facility] [address] [place] [address] USAHyaline casts [#/area] in Urine sediment by Automated countOrdered By: Rafael Salamanca on 76-22-0700Nzfwzbg casts Auto (Urine sed) [#/Area]None [LPF]0-8[facility] HospitalKetones [Presence] in Urine by Test stripOrdered By: Rafael Salamanca on 06-33-9257Lqsmavr Ql (U)Negative NormalNegMercy Health St. Joseph Warren HospitalComment on above:Order Comment: Name Collection Type:: Clean-Voided MidstreamPerformed By: #### CUU, ADDONUAPLUS #### [facility] [id number] USALeukocyte esterase [Presence] in Urine by Test strip Ordered By: Rafael Cheikh on 24-00-9932Ebfprwwuc esterase Test strip Ql (U) NegativeNormalNegativeGalion HospitalComment on above:Order Comment: Name Collection Type:: Clean-Voided MidstreamPerformed By: #### CUU, ADDONUAPLUS #### [facility] [address] [place] [address] USALeukocytes [#/area] in Urine sediment by Automated count Ordered By: Rafael Salamanca on 61-97-5725FMX Auto (Urine sed) [#/Area]1-2 [HPF]0-4 [facility] HospitalLeukocytes [#/volume] corrected for nucleated erythrocytes in Blood by Automated counOrdered By: Renny Walton on 10-52-3573VGE corrected for nucl RBC Auto (Bld) [#/Vol]7.4 10*3/uL3.8-11.6FWexner Medical CenterLeukocytes [#/volume] in Blood by Automated countOrdered By: Renny Walton on 14-18-4921QZI (Bld) [#/Vol]7.4 10*3/uLNormal3.8-11.6FWexner Medical CenterComment on above:Performed By: #### PILLAR CBC, EBS A1C, PILLAR LIPID, PILLAR CMP #### [facility] [address] [place], [place] [address] USALymphocytes [#/volume] in Blood by Automated countOrdered By: Renny Walton on 20-89-5253Cyfsmfrdbwr (Bld) [#/Vol]2.4 10*3/uLNormal1.00-4.8 [facility] HospitalComment on above:Performed By: #### PILLAR CBC, EBS A1C, PILLAR LIPID, PILLAR CMP #### [facility] [address] [place] [id number] USALymphocytes/100 leukocytes in Blood by Automated count Ordered By: Renny Walton on 07-42-6212Ibvgrrauqnz/100 WBC (Bld)32.1 %Normal. [facility] HospitalComment on above:Performed By: #### PILLAR CBC, EBS A1C, PILLAR LIPID, PILLAR CMP #### [facility] [address] [Entitic mass] by Automated countOrdered By: Renny Walton on 75-06-9178CMW (RBC) [Entitic mass]29.9 irHbhzyb88.7-34.3FWexner Medical CenterComment on above:Performed By: #### PILLAR CBC, EBS A1C, PILLAR LIPID, PILLAR CMP #### [facility] [address] Auto (RBC) [Mass/Vol]Ordered By: Renny Walton on 29-71-7978DZRO (RBC) [Mass/Vol]33.6 g/dL32.0-35.0[facility]V [Entitic volume] by Automated countOrdered By: Renny Walton on 68-14-9197OOX (RBC) [Entitic vol]88.8 jOJgharp57-647XppufbdrhGalion HospitalComment on above:Performed By: #### PILLAR CBC, EBS A1C, PILLAR LIPID, PILLAR CMP #### [facility] [address] [place] [address] USAMonocytes [#/volume] in Blood by Automated countOrdered By: Renny Walton on 07-83-4230Psmmfimcj (Bld) [#/Vol]0.6 10*3/uLNormal0.0-0.8 [facility] HospitalComment on above:Performed By: #### PILLAR CBC, EBS A1C, PILLAR LIPID, PILLAR CMP #### [facility] [address] [place] [id number] USAMonocytes/100 leukocytes in Blood by Automated count Ordered By: Renny Walton on 58-22-6493Vemohqxnr/100 WBC (Bld)8.6 %Normal.[facility] HospitalComment on above:Performed By: #### PILLAR CBC, EBS A1C, PILLAR LIPID, PILLAR CMP #### [facility] [address] [place] [address] USAMucus [Presence] in Urine by AutomatedOrdered By: Rafael Salamanca on 88-60-2806Umoxu Auto Ql (U)Rare [LPF][facility] Neutrophils [#/volume] in Blood by Automated countOrdered By: Renny Walton on 23-62-3509Clsvfdkvnba (Bld) [#/Vol]4.2 10*3/uLNormal1.8-7.7FWexner Medical CenterComment on above:Performed By: #### PILLAR CBC, EBS A1C, PILLAR LIPID, PILLAR CMP #### [facility] [address] [place] [address] USANeutrophils/100 leukocytes in Blood by Automated count Ordered By: Renny Walton on 66-37-8987Fqoegyawluz/100 WBC (Bld)56.6 %Normal. [facility] HospitalComment on above:Performed By: #### PILLAR CBC, EBS A1C, PILLAR LIPID, PILLAR CMP #### [facility] [address] [place], [place] [address] USANitrite Test strip Ql (U)Ordered By: Rafael Salamanca on 53-80-7209Lrrdahq Ql (U)NegativeNegativeGalion HospitalNo Panel InformationOrdered By: Renny Walton on 10-74-9116Fdzpnypzc GFR (CKD-EPI)> 60.0 mL/MinGalion HospitalPharmacy Creatinine Clearance (Chem N/AFWexner Medical CenterNucleated erythrocytes [Presence] in Blood by Automated countOrdered By: Renny Walton on 41-53-9175Drikjmdrt RBC Auto Ql (Bld)0.0 /100{WBC}0-0.5FWexner Medical CenterPlatelet mean volume [Entitic volume] in Blood by Automated countOrdered By: Renny Walton on 12-20-2024 Platelet mean volume (Bld) [Entitic vol]6.7 fLNormal6.3-10.7FWexner Medical CenterComment on above:Performed By: #### PILLAR CBC, EBS A1C, PILLAR LIPID, PILLAR CMP #### [facility] [address] [place], [place] [address] USAPlatelets [#/volume] in Blood by Automated countOrdered By: Renny Walton on 30-61-3998Seecqelqt (Bld) [#/Vol]332 10*3/aADldubd129-516 [facility] HospitalComment on above:Performed By: #### PILLAR CBC, EBS A1C, PILLAR LIPID, PILLAR CMP #### [facility] [address] [place] [address] USAPotassium [Moles/volume] in Serum or PlasmaOrdered By: Renny Walton on 10-66-7616Mnehemtpv [Moles/Vol]4.0 mmol/LNormal3.5-5.1FWexner Medical CenterComment on above:Performed By: #### PILLAR CBC, EBS A1C, PILLAR LIPID, PILLAR CMP #### [facility] [address] [place] [address] USAProtein Test strip (U) [Mass/Vol]Ordered By: Rafael Salamanca on 36-07-9674Orpkmwp (U) [Mass/Vol]NegativeNegativeGalion HospitalProtein [Mass/volume] in Serum or PlasmaOrdered By: Renny Walton on 98-67-2109Yhgbsut [Mass/Vol]7.0 g/dLNormal6.4-8.9Galion HospitalComment on above:Performed By: #### PILLAR CBC, EBS A1C, PILLAR LIPID, PILLAR CMP #### [facility] [address] [place] [address] USASerum globulin measurement by calculation (mass/volume) Ordered By: Renny Walton on 75-81-1049Zjkneuzv (S) [Mass/Vol]2.8 g/dLNormal Galion HospitalComment on above:Performed By: #### PILLAR CBC, EBS A1C, PILLAR LIPID, PILLAR CMP #### [facility] [address] [place] [address] USASerum or plasma albumin/globulin mass ratioOrdered By: Renny Walton on 58-43-5179Gdyjdgh/Globulin [Mass ratio]1.5 {ratio}NormalGalion HospitalComment on above:Performed By: #### PILLAR CBC, EBS A1C, PILLAR LIPID, PILLAR CMP #### [facility] [address] [place] [id number] USASerum or plasma anion gap determinationOrdered By: Renny Walton on 12-80-9941Lqqnk gap [Moles/Vol]9.1 mmol/LNormal6.0-15.0Galion HospitalComment on above:Performed By: #### PILLAR CBC, EBS A1C, PILLAR LIPID, PILLAR CMP #### [facility] [address] [place] [address] USASerum or plasma total cholesterol/high density lipoprotein (HDL) cholesterol mass ratOrdered By: Renny Walton on 12-20-2024 Cholesterol.total/Cholesterol in HDL [Mass ratio]3.4 {ratio}Normal<5.0Galion HospitalComment on above:Result Comment: PERFORMED BY: [place] [address] PATHOLOGIST PLODDER OPERATOR BASSAM BRADFORD M.D.Performed By: #### PILLAR CBC, EBS A1C, PILLAR LIPID, PILLAR CMP #### [facility] [address] [place] [id number] USASodium [Moles/volume] in Serum or PlasmaOrdered By: Renny Walton on 44-11-9768Xrhnzu [Moles/Vol]140 mmol/AZidhan366-881EhfevnljoGalion HospitalComment on above:Performed By: #### PILLAR CBC, EBS A1C, PILLAR LIPID, PILLAR CMP #### [facility] [address] [place] [id number] USASpecific gravity Test strip (U) [Rel density]Ordered By: Rafael Salamanca on 13-55-1855Tvascfct gravity (U) [Rel density]1.0201.001-1.030 Galion HospitalTriglyceride [Mass/volume] in Serum or Plasma Ordered By: Renny Walton on 85-31-9320Qepqhgqxlkpd [Mass/Vol]178 mg/dLHigh0-149 Galion HospitalComment on above:TRIG ATP III CLASSIFICATIONTRIG less than 150 mg/dL NormalTRIG 150-199 mg/dL Borderline highTRIG 200-500 mg/dL High TRIG greater than 500 mg/dL Very highStandard traceable to the Center for Disease Conrtrol and Prevention (CDC) test method. Urea nitrogen [Mass/volume] in Serum or PlasmaOrdered By: Renny Walton on 58-69-6836Bbhl nitrogen [Mass/Vol]20 mg/dLNormal7-25Galion HospitalComment on above:Performed By: #### PILLAR CBC, EBS A1C, PILLAR LIPID, PILLAR CMP #### [facility] [address] [place] [id number] USAUrine Cultureon 61-98-8817Jinxjjrt identified Cx Nom (U) Urine Culture Results >100,000 col/ml Mixed Bacterial Skin Contaminants 2 Days PERFORMED BY: [place] [address] PATHOLOGIST PLODDER OPERATOR BASSAM BRADFORD M.D.NormalThe [facility] Physician GroupComment on above: Performed By: #### CUJonn, FEIONUAPLUS #### [place] [address] USAUrine cultureOrdered By: Rafael Salamanca on 94-24-5626Dxrsngob identified Cx Nom (U)Galion HospitalUrobilinogen Test strip (U) [Mass/Vol]Ordered By: Rafael Salamanca on 29-23-6053Ljididqjswdo (U) [Mass/Vol] Normal mg/dLNormalGalion HospitalpH of Urine by Test strip Ordered By: Rafael Salamanca on 76-55-8118eR (U)5.0 [pH]Normal5.0-9.0Galion HospitalComment on above:Order Comment: Name Collection Type:: Clean-Voided MidstreamPerformed By: #### CUU, ADDONUAPLUS #### [facility] [address] [place] [id number] USAAmbulatory Visit Summaryon 49-11-6119Xzkvwfqeyy Visit SummaryAmbulatory Visit Summary NANCY HOOPER :1960 Visit Date:12/03/2024 Ambulatory Visit Instructions Your Care Team Attending Physician - ZAYRA PACHECO, Anthony R Primary Care Physician - Rafael Salamanca MD This Is Your Medications List Contact prescribing [...] of knee, Breast reduction, 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 Discharge Vitals Heart Rate (Peripheral) 71 [...] signed up for this yet, please contact amcure at [phone] to get signed up today. Language Information Language assistance services are available as needed. [facility] OhioAppearance of UrineOrdered By: Rafael Salamanca on 92-95-7561Spqwdjztjs (U)ClearNormalClearGalion HospitalComment on above:Order Comment: Name Collection Type:: Clean- Voided MidstreamPerformed By: #### ADDONUAPLUS, CUU #### [facility] [address] [place] [address] USABacteria [Presence] in Urine by AutomatedOrdered By: Rafael Salamanca on 53-81-0815Roupweor Auto Ql (U)None seen [HPF]None [facility] Medical CenterBilirubin Test strip Ql (U)Ordered By: Rafael Salamanca on 60-74-6823Lypwdnwqc Ql (U)NegativeNegativeGalion HospitalColor of Urine by AutoOrdered By: Rafael Salamanca on 77-55-5621Xxnnj (U)Light-yellow NormalYellowGalion HospitalComment on above:Order Comment: Name Collection Type:: Clean-Voided MidstreamPerformed By: #### ADDONUAPLUS, CUU #### [facility] [address] [place] [address] USADipstick and Microscopicon 38-42-9303Chalzsew,UrineNone SeenNormalNone SeenThe [facility] Physician GroupComment on above:Order Comment: Name Collection Type:: Clean-Voided MidstreamPerformed By: #### ADDONUAPLUS, CUU #### [place] [address] USABilirubin,UrineNegativeNormalNegativeThe [facility] Physician GroupComment on above:Order Comment: Name Collection Type:: Clean- Voided MidstreamPerformed By: #### ADDONUAPLUS, CUU #### [place] [id number] USAGlucose Ql (U)NormalNormalNormalThe [facility] Physician GroupComment on above:Order Comment: Name Collection Type:: Clean-Voided MidstreamPerformed By: #### ADDONUAPLUS, CUU #### [place] [address] USAHyaline Casts,UrineNoneNormal0-8The [facility] Physician GroupComment on above:Order Comment: Name Collection Type:: Clean-Voided MidstreamResult Comment: PERFORMED BY: [place] [address] PATHOLOGIST PLODDER OPERATOR BASSAM BRADFORD M.D.Performed By: #### ADDONUAPLUS, CUU #### [place] [address] USANitrite,UrineNegativeNormalNegativeThe [facility] Physician GroupComment on above:Order Comment: Name Collection Type:: Clean-Voided MidstreamPerformed By: #### ADDONUAPLUS, CUU #### [address] [address] USAOccult Blood,UrineNegativeNormalNegativeThe [facility] Physician GroupComment on above:Order Comment: Name Collection Type:: Clean- Voided MidstreamPerformed By: #### ADDONUAPLUS, CUU #### [place] [address] USAProtein,UrineNegativeNormalNegativeThe [facility] Physician GroupComment on above:Order Comment: Name Collection Type:: Clean-Voided MidstreamPerformed By: #### ADDONUAPLUS, CUU #### [place] [address] USARBC,UrineNone SeenNormal0-4The [facility] Physician Group Comment on above:Order Comment: Name Collection Type:: Clean-Voided Midstream Performed By: #### ADDONUAPLUS, CUU #### [place] [address] USASpecificy Chacon,Urine1.233Eevttn0.001-1.030The [facility] Physician GroupComment on above:Order Comment: Name Collection Type:: Clean- Voided MidstreamPerformed By: #### ADDONUAPLUS, CUU #### [place] [address] USASquamous Epithelial Cell,Stetp5-8Kobyee0-6Qay [facility] Physician GroupComment on above:Order Comment: Name Collection Type:: Clean- Voided MidstreamPerformed By: #### ADDONUAPLUS, CUU #### [place] [address] USAUrobilinogen,UrineNormalNormalNormalThe [facility] Physician GroupComment on above:Order Comment: Name Collection Type:: Clean- Voided MidstreamPerformed By: #### ADDONUAPLUS, CUU #### [place] [address] USAWBC,Fstwy8-8Eqetqy7-6Unx [facility] Physician GroupComment on above:Order Comment: Name Collection Type:: Clean-Voided MidstreamPerformed By: #### ADDONUAPLUS, CUU #### [place] [address] USAEpithelial cells.squamous [#/area] in Urine sediment by Automated countOrdered By: Rafael Salamanca on 36-72-2178Rswvefysgt cells.squamous Auto (Urine sed) [#/Area]1-2 [HPF]0-2FWexner Medical Center Erythrocytes [#/area] in Urine sediment by Automated countOrdered By: Rafael Salamanca on 17-94-5687TKM Auto (Urine sed) [#/Area]None seen [HPF]0-4FWexner Medical CenterGlucose [Mass/volume] in Urine by Test stripOrdered By: Rafael Salamanca on 45-67-8692Kxmpvea Test strip (U) [Mass/Vol]Normal mg/dLNormal Galion HospitalHemoglobin Test strip Ql (U)Ordered By: Rafael Salamanca on 71-77-7525Nnsxbmkggq Ql (U)NegativeNegMercy Health St. Joseph Warren HospitalHyaline casts [#/area] in Urine sediment by Automated countOrdered By: Rafael Salamanca on 47-11-6900Laxsvms casts Auto (Urine sed) [#/Area]None [LPF]0-8 Galion HospitalKetones [Presence] in Urine by Test strip Ordered By: Rafael Salamanca on 98-19-7003Jyafwfe Ql (U)NegativeNormalNegative Galion HospitalComment on above:Order Comment: Name Collection Type:: Clean-Voided MidstreamPerformed By: #### ADDONUAPLUS, CUU #### [facility] [address] [place] [id number] USALeukocyte esterase [Presence] in Urine by Test strip Ordered By: Rafael Salamanca on 04-72-4893Zeyzyjuiq esterase Test strip Ql (U) NegativeNormalNegMercy Health St. Joseph Warren HospitalComment on above:Order Comment: Name Collection Type:: Clean-Voided MidstreamPerformed By: #### ADDONUAPLUS, CUU #### [facility] [address] [place] [id number] USALeukocytes [#/area] in Urine sediment by Automated count Ordered By: Rafael Salamanca on 38-08-1886DUB Auto (Urine sed) [#/Area]1-2 [HPF]0-4 Galion HospitalNitrite Test strip Ql (U)Ordered By: Rafael Salamanca on 25-17-4994Rrcebko Ql (U)NegativeNegMercy Health St. Joseph Warren Hospital Protein Test strip (U) [Mass/Vol]Ordered By: Rafael Salamanca on 66-33-2259Frcopcq (U) [Mass/Vol]NegativeNegMercy Health Urbana Hospitalpecific gravity Test strip (U) [Rel density]Ordered By: Rafael Salamanca on 88-22-2244Bgifhpjo gravity (U) [Rel density]1.0111.001-1.030Galion HospitalUrine Cultureon 46-22-4660Taporiib identified Cx Nom (U)>100,000 colonies/ml mixed bacterial skin contaminants 2 Days PERFORMED BY: [place] [address] PATHOLOGIST PLODDER OPERATOR BASSAM BRADFORD M.D.NormalThe [facility] Physician GroupComment on above: Performed By: #### JOSE, CUU #### [facility] [address] [place], [place] [address] USAUrine cultureOrdered By: Rafael Salamanca on 84-19-7227Sbjtttqm identified Cx Nom (U)2 DaysGalion HospitalUrobilinogen Test strip (U) [Mass/Vol]Ordered By: Rafael Salamanca on 94-58-4675Vqwsoeaxrrhb (U) [Mass/Vol]Normal mg/dLNormalGalion HospitalpH of Urine by Test stripOrdered By: Rafael Salamanca on 64-02-3649iY (U)5.5 [pH]Normal5.0-9.0Galion HospitalComment on above:Order Comment: Name Collection Type:: Clean-Voided MidstreamPerformed By: #### JOSE, CUU #### [facility] [address] [place], [place] [address] USAUS abdomen limitedon 49-32-0511PZ abdomen limitedKETTERING [facility] [address] [place] [id number] Ultrasound Report Signed Patient: Nancy Hooper MR#: [id number] 68 : 1960 Acct:[id number] Age/Sex: 64 / F ADM Date: 11/23/24 Loc: UL Room: Type: [facility] Attending Dr: Rafael Salamanca MD Ordering Provider: Rafael Salamanca MD Date of Service: 11/23/24 US/US abdomen limited: R10.13,R10.12 Copies to: Rafael Salamanca MD EXAMINATION TYPE: US abdomen limited DATE [...] Degroot M.D. 11/23/2024 5:13 PM Dictation Location: [place] [address] Tech: Ramila Su Transcribed By: ADAM 11/23/241712 Dictated By: Shai Degroot II, MD 11/23/241711 Signed By: 11/23/241712[facility] Physician GroupAlanine aminotransferase [Enzymatic activity/volume] in Serum or PlasmaOrdered By: Rafael Salamanca on 38-36-4820ALO [Catalytic activity/Vol]15 U/LNormal7-52Galion HospitalComment on above:Performed By: #### HOMER, CMP, CBC, LIPASE ####[facility] [address] [place] [address] USAAlbumin [Mass/volume] in Serum or Plasma by Bromocresol green (BCG) dye binding methoOrdered By: Rafael Salamanca on 24-43-3733Qvdgeac BCG dye [Mass/Vol]4.1 g/dL3.5-5.7FWexner Medical CenterAlkaline phosphatase [Enzymatic activity/volume] in Serum or PlasmaOrdered By: Rafael Salamanca on 26-46-3523ZRI [Catalytic activity/Vol]57 U/L Rxbsrm09-587QedmkfhymGalion HospitalComment on above:Performed By: #### HOMER, CMP, CBC, LIPASE ####[address] [address] USAAmylase [Enzymatic activity/volume] in Serum or PlasmaOrdered By: Rafael Salamanca on 07-53-9336Zsjpmgh [Catalytic activity/Vol]34 U/YOfcttf85-227OxavsbvhfGalion HospitalComment on above:Performed By: #### HOMER, CMP, CBC, LIPASE ####[place] [id number] USAAspartate aminotransferase [Enzymatic activity/volume] in Serum or PlasmaOrdered By: Rafael Salamanca on 34-43-4208KSQ [Catalytic activity/Vol]12 U/VXmk80-26NaegrijeoGalion HospitalComment on above:Performed By: #### HOMER, CMP, CBC, LIPASE ####[place] [address] USABasophils [#/volume] in Blood by Automated countOrdered By: Rafael Salamanca on 36-38-7589Ihjcmvajm (Bld) [#/Vol]0.1 10*3/uLNormal0.0-0.2FWexner Medical CenterComment on above:Result Comment: PERFORMED BY: [facility] [address] [place] [address] PATHOLOGIST PLODDER OPERATOR BASSAM BRADFORD M.D.Performed By: #### HOMER, CMP, CBC, LIPASE ####[place] [address] USABasophils/100 leukocytes in Blood by Automated countOrdered By: Rafael Salamanca on 11-21-2024 Basophils/100 WBC (Bld)1.0 %Normal.Galion HospitalComment on above:Performed By: #### HOMER, CMP, CBC, LIPASE ####[place] [id number] USABilirubin.total [Mass/volume] in Serum or PlasmaOrdered By: Rafael Salamanca on 42-45-4386Fkmkgfeyr [Mass/Vol]0.3 mg/dL Normal0.3-1.0Galion HospitalComment on above:Performed By: #### HOMER, CMP, CBC, LIPASE ####[place] [address] USACalcium [Mass/volume] in Serum or PlasmaOrdered By: Rafael Salamanca on 24-40-0054Socyocr [Mass/Vol]9.2 mg/dLNormal8.6-10.3FWexner Medical CenterComment on above:Performed By: #### HOMER, CMP, CBC, LIPASE ####[place] [address] USACarbon dioxide, total [Moles/volume] in Serum or PlasmaOrdered By: Rafael Reedangelito on 98-96-7147SO6 [Moles/Vol]29.6 mmol/YNlwtwx67.0-31.0Galion HospitalComment on above:Performed By: #### HOMER, CMP, CBC, LIPASE ####[place] [address] USAChloride [Moles/volume] in Serum or PlasmaOrdered By: Rafael Reedangelito on 84-65-8141Phryhpvm [Moles/Vol]107 mmol/LSgruak99-145PhhjtdunwGalion HospitalComment on above:Performed By: #### HOMER, CMP, CBC, LIPASE ####[place] [address] USAComplete Blood Count Auto Diffon 28-03-6863Qfuf Corpuscular HGB Conc33.4 g/zUGqcbxl04.0-35.0The [facility] Physician GroupComment on above:Performed By: #### HOMER, CMP, CBC, LIPASE ####[place] [address] USANRBC% 0.1 /100{WBC}Normal0-0.5The [facility] Physician GroupComment on above:Performed By: #### HOMER, CMP, CBC, LIPASE ####[place] [address] USAWhite Blood Count7.7 [CFU]/mLNormal3.8-11.6The [facility] Physician GroupComment on above:Performed By: #### HOMER, CMP, CBC, LIPASE ####[place] [address] [facility] Comprehensive Metabolic Panelon 84-41-8572Yvpedns [Mass/Vol]4.1 g/dLNormal 3.5-5.7The [facility] Physician GroupComment on above:Performed By: #### HOMER, CMP, CBC, LIPASE ####[place] [address] USAGFR/1.73 sq M.predicted MDRD (S/P/Bld) [Vol rate/Area]mL/min/{1.73_m2} NormalThe [facility] Physician [facility] HospitalComment on above:Performed By: #### HOMER, CMP, CBC, LIPASE ####[place] [address] USACreatinine [Mass/volume] in Serum or PlasmaOrdered By: Rafael Salamanca on 98-46-1946Mjqstohlrg [Mass/Vol]0.58 mg/dLLow0.60-1.20Galion HospitalComment on above:Performed By: #### HOMER, CMP, CBC, LIPASE ####[place] [id number] USAEosinophils [#/volume] in Blood by Automated countOrdered By: Rafael Salamanca on 11-21-2024 Eosinophils (Bld) [#/Vol]0.1 10*3/uLNormal0.0-0.45Galion HospitalComment on above:Performed By: #### HOMER, CMP, CBC, LIPASE ####[place] [address] USAEosinophils/100 leukocytes in Blood by Automated countOrdered By: Rafael Salamanca on 11-21-2024 Eosinophils/100 WBC (Bld)1.2 %Normal.Galion HospitalComment on above:Performed By: #### HOMER, CMP, CBC, LIPASE ####[place] [address] USAErythrocyte distribution width [Ratio] by Automated countOrdered By: Rafael Salamanca on 77-56-2488Pplgoitzcfy distribution width (RBC) [Ratio]13.5 %Xfhhhp40.9-15.3FWexner Medical Center Comment on above:Performed By: #### HOMER, CMP, CBC, LIPASE ####[place] [address] USAErythrocytes [#/volume] in Blood by Automated countOrdered By: Rafael Salamanca on 44-76-5486PJR (Bld) [#/Vol] 4.72 10*6/uLNormal3.60-5.00Galion HospitalComment on above: Performed By: #### HOMER, CMP, CBC, LIPASE ####[place] [address] USAGlucose [Mass/volume] in Serum or Plasma Ordered By: Rafael Salamanca on 14-97-6802Ihvjghy [Mass/Vol]118 mg/xYUdbi32-550 Galion HospitalComment on above:ADA recommended reference rangeRandom Glucose Reference Range is dependent on time and content of last meal. Glucose of more than 200 mg/dL in a nonstressed, ambulatory subject supports the diagnosisof Diabetes Mellitus.Result Comment: Random Glucose Reference Range is dependent on time and content of last meal. Glucose of more than 200 mg/dL in a nonstressed, ambulatory subject supports the diagnosis of Diabetes Mellitus. ADA recommended reference rangePerformed By: #### HOMER, CMP, CBC, LIPASE ####[place] [address] [facility] Hematocrit [Volume Fraction] of Blood by Automated countOrdered By: Rafael Salamanca on 42-98-9001Dqqqlogpjk (Bld) [Volume fraction]42.8 %Bfabbk27.0-46.4FWexner Medical CenterComment on above:Performed By: #### HOMER, CMP, CBC, LIPASE ####[place] [address] [facility] Hemoglobin [Mass/volume] in BloodOrdered By: Rafael Salamanca on 24-99-3458Lyqtizcjgl (Bld) [Mass/Vol]14.3 g/wSFvmrqq32.8-15.4FWexner Medical Center Comment on above:Performed By: #### HOMER, CMP, CBC, LIPASE ####[address] [address] USALeukocytes [#/volume] corrected for nucleated erythrocytes in Blood by Automated counOrdered By: Rafael Salamanca on 66-75-5704QVK corrected for nucl RBC Auto (Bld) [#/Vol]7.7 10*3/uL3.8-11.6FWexner Medical CenterLeukocytes [#/volume] in Blood by Automated countOrdered By: Rafael Salamanca on 00-64-0598ZNF (Bld) [#/Vol]7.7 10*3/uLNormal3.8-11.6FWexner Medical CenterComment on above:Performed By: #### HOMER, CMP, CBC, LIPASE ####[address] [address] USALipase [Enzymatic activity/volume] in Serum or PlasmaOrdered By: Rafael Salamanca on 58-81-8543Yvzfnc [Catalytic activity/Vol]43.0 U/OBvlksm70.0-82.0Galion HospitalComment on above:Result Comment: PERFORMED BY: [facility] [address] [place] [address] PATHOLOGIST PLODDER OPERATOR BASSAM BRADFORD M.D.Performed By: #### HOMER, CMP, CBC, LIPASE ####[address] [address] USALymphocytes [#/volume] in Blood by Automated countOrdered By: Rafael Salamanca on 11-21-2024 Lymphocytes (Bld) [#/Vol]2.1 10*3/uLNormal1.00-4.8Galion HospitalComment on above:Performed By: #### HOMER, CMP, CBC, LIPASE ####[address] [address] USALymphocytes/100 leukocytes in Blood by Automated countOrdered By: Rafael Salamanca on 11-21-2024 Lymphocytes/100 WBC (Bld)27.0 %Normal.Galion HospitalComment on above:Performed By: #### HOMER, CMP, CBC, LIPASE ####[address] [address] [facility] [Entitic mass] by Automated count Ordered By: Rafael Salamanca on 18-88-9349JEV (RBC) [Entitic mass]30.2 pgNormal 24.7-34.3FWexner Medical CenterComment on above:Performed By: #### HOMER, CMP, CBC, LIPASE ####[place] [address] [facility] Auto (RBC) [Mass/Vol]Ordered By: Rafael Salamanca on 26-70-2765NDCZ (RBC) [Mass/Vol]33.4 g/dL32.0-35.0[facility] HospitalV [Entitic volume] by Automated countOrdered By: Rafael Salamanca on 65-75-9507IWX (RBC) [Entitic vol]90.7 rBDorkll76-243HaasdonsmGalion HospitalComment on above:Performed By: #### HOMER, CMP, CBC, LIPASE ####[place] [address] USAMonocytes [#/volume] in Blood by Automated countOrdered By: Rafael Salamanca on 62-86-1708Mbiolhsxh (Bld) [#/Vol]0.7 10*3/uLNormal0.0-0.8Galion HospitalComment on above:Performed By: #### HOMER, CMP, CBC, LIPASE ####[place] [id number] USAMonocytes/100 leukocytes in Blood by Automated countOrdered By: Rafael Salamanca on 74-38-5572Suznylbkz/100 WBC (Bld)9.0 % Normal.Galion HospitalComment on above:Performed By: #### HOMER, CMP, CBC, LIPASE ####[place] [address] USANeutrophils [#/volume] in Blood by Automated countOrdered By: Rafael Salamanca on 80-54-6197Yjtfkoysunf (Bld) [#/Vol]4.8 10*3/uLNormal1.8-7.7 Gal[facility] HospitalComment on above:Performed By: #### HOMER, CMP, CBC, LIPASE ####[place] [address] [place] [address] USANeutrophils/100 leukocytes in Blood by Automated countOrdered By: Rafael Salamanca on 59-82-5883Rolhxjyqzdr/100 WBC (Bld)61.8 %Normal.Galion HospitalComment on above:Performed By: #### HOMER, CMP, CBC, LIPASE ####[place] [address] [place] [id number] USANo Panel InformationOrdered By: Rafael Salamanca on 24-91-2953Qphpttjbh GFR (CKD-EPI)> 60.0 mL/MinGalion HospitalPharmacy Creatinine Clearance (Chem N/AFWexner Medical CenterNucleated erythrocytes [Presence] in Blood by Automated countOrdered By: Rafael Salamanca on 54-09-2393Tralmoxmb RBC Auto Ql (Bld)0.1 /100{WBC}0-0.5FWexner Medical CenterPlatelet mean volume [Entitic volume] in Blood by Automated countOrdered By: Rafael Salamanca on 88-85-5017Wqzvpdnw mean volume (Bld) [Entitic vol]7.1 fLNormal6.3-10.7FWexner Medical CenterComment on above:Performed By: #### HOMER, CMP, CBC, LIPASE ####[place] [address] [place] [address] [place] Platelets [#/volume] in Blood by Automated countOrdered By: Rafael Salamanca on 03-02-1122Qjqeqobnv (Bld) [#/Vol]334 10*3/rLKcwunn781-018UlgmnxaleGalion HospitalComment on above:Performed By: #### HOMER, CMP, CBC, LIPASE ####[address] [address] [place] Potassium [Moles/volume] in Serum or PlasmaOrdered By: Rafael Salamanca on 11-21-2024 Potassium [Moles/Vol]4.2 mmol/LNormal3.5-5.1FWexner Medical Center Comment on above:Performed By: #### HOMER, CMP, CBC, LIPASE ####[place] [address] USAProtein [Mass/volume] in Serum or PlasmaOrdered By: Rafael Salamanca on 60-13-7817Pnufaml [Mass/Vol]7.0 g/dL Normal6.4-8.9Galion HospitalComment on above:Performed By: #### HOMER, CMP, CBC, LIPASE ####[place] [address] USASerum globulin measurement by calculation (mass/volume)Ordered By: Rafael Salamanca on 45-96-0449Fovkbend (S) [Mass/Vol]2.9 g/dLNormalGalion HospitalComment on above:Performed By: #### HOMER, CMP, CBC, LIPASE ####[place] [address] USASerum or plasma albumin/globulin mass ratioOrdered By: Rafael Salamanca on 37-26-0677Pwnrgfm/Globulin [Mass ratio]1.4 {ratio}Normal Galion HospitalComment on above:Performed By: #### HOMER, CMP, CBC, LIPASE ####[place] [address] USASerum or plasma anion gap determinationOrdered By: Rafael Salamanca on 76-58-6684Xwlbn gap [Moles/Vol]10.6 mmol/LNormal6.0-15.0Galion HospitalComment on above:Performed By: #### HOMER, CMP, CBC, LIPASE ####[place] [address] USASodium [Moles/volume] in Serum or PlasmaOrdered By: Rafael Salamanca on 12-63-5264Iauwxf [Moles/Vol]143 mmol/EVkyqkz432-733QvebvxpzkGalion HospitalComment on above:Performed By: #### HOMER, CMP, CBC, LIPASE ####[facility] [address] [place] [address] USAUrea nitrogen [Mass/volume] in Serum or PlasmaOrdered By: Rafael Salamanca on 16-90-4053Thex nitrogen [Mass/Vol]25 mg/dL Normal-Galion HospitalComment on above:Performed By: #### HOMER, CMP, CBC, LIPASE ####[facility] [id number] [place] [address] USACT foot LT wo conon 91-44-6541YN foot LT wo con [facility] [address] [place] [address] [place] [address] CT Scan Report Signed Patient: Nancy Hooper MR#: [id number] 68 : 1960 Acct:[id number] Age/Sex: 64 / F ADM Date: 10/16/24 Loc: CT Room: Type: [facility] Attending Dr: Rafael Salamanca MD Copies to: Rafael Salamanca MD Ordering Provider: Rafael Salamanca MD Date of Service: 10/16/24 CT/CT foot LT wo con: M79.672 ([id number]) CT/CT ankle LT wo con: M79.672 CT [...] Degroot M.D. 10/16/2024 4:27 PM Dictation Location: [place] [address] Transcribed By: ADAM 10/16/24 1627 Dictated By: Shai Degroot II, MD 10/16/24 1601 Signed By: 10/16/24 1627[facility] Physician GroupXR foot LT 2Von 78-92-9525JE foot LT [facility] [place] [place] [address] XRay Report Signed Patient: Nancy Hooper MR#: [id number] 68 : 1960 Acct:[id number] Age/Sex: 64 / F ADM Date: 09/27/24 Loc: XD Room: Type: [facility] Attending Dr: Rafael Salamanca MD Copies to: Rafael Salamanca MD Ordering Provider: Rafael Salamanca MD Date of Service: 09/27/24 XR/XR foot [...] Sanchez M.D. 09/27/2024 4:09 PM Dictation Location: RADIO-PC-20 Transcribed By: ADAM 09/27/24 1609 Dictated By: Juwan Sanchez DO 09/27/24 1608 Signed By: 09/27/24 160[facility] Physician GroupBasophils Auto (Bld) [#/Vol] Ordered By: Renny Walton on 74-35-9337Ulcqeicfc (Bld) [#/Vol]0.1 10*3/uL0.0-0.2 [facility] HospitalBasophils/100 WBC Auto (Bld)Ordered By: Renny Walton on 99-74-1794Vbhpugaou/100 WBC (Bld)1.1 %.[facility] Calcium [Mass/volume] in Serum or PlasmaOrdered By: Renny Walton on 11-13-2023 Calcium [Mass/Vol]9.1 mg/dL8.6-10.3FWexner Medical CenterCarbon dioxide, total [Moles/volume] in Serum or PlasmaOrdered By: Renny Walton on 25-44-0865JZ6 [Moles/Vol]28.1 mmol/L21.0-31.0[facility] Chloride [Moles/volume] in Serum or PlasmaOrdered By: Renny Walton on 11-13-2023 Chloride [Moles/Vol]107 mmol/K23-493GhomjpqowGalion HospitalCholesterol [Mass/volume] in Serum or PlasmaOrdered By: Renny Walton on 42-66-4359Saozfsgrauo [Mass/Vol]174 mg/sD951-738DgnnnsosfGalion HospitalComment on above: Chol less than 200 mg/dl low riskChol 201-239 mg/dl borderline riskChol 240 mg/dl and greater high riskCholesterol in LDL Calc [Mass/Vol]Ordered By: Renny Walton on 73-33-5208Dvntzvhrvgd in LDL [Mass/Vol]98 mg/dL0-100[facility] HospitalComment on above:LDL ATP III CLASSIFICATIONLDL less than 100 mg/dL OptimalLDL 100-129 mg/dL Near or above scotnrnOKO735-116 mg/dL Borderline highLDL 160-189 mg/dL HighLDL greater than 189 mg/dL Very highCholesterol in VLDL Calc [Mass/Vol]Ordered By: Renny Walton on 05-06-2947Cllyblfdqab in VLDL [Mass/Vol]24 mg/dLGalion HospitalCreatinine [Mass/volume] in Serum or PlasmaOrdered By: Renny Walton on 52-31-8817Behzakvejg [Mass/Vol]0.62 mg/dL0.60-1.20[facility] HospitalEosinophils Auto (Bld) [#/Vol] Ordered By: Renny Walton on 19-90-2473Qmqdccnqvbq (Bld) [#/Vol]0.1 10*3/uL0.0-0.45 [facility] HospitalEosinophils/100 WBC Auto (Bld)Ordered By: Renny Walton on 27-50-8628Ihxyqapgcjl/100 WBC (Bld)2.3 %.[facility] HospitalErythrocyte distribution width Auto (RBC) [Ratio]Ordered By: Renny Walton on 19-94-0540Srsluozejax distribution width (RBC) [Ratio]13.6 %11.9-15.3FWexner Medical CenterGlucose [Mass/volume] in Serum or PlasmaOrdered By: Renny Walton on 38-28-2575Amjwyai [Mass/Vol]103 mg/zPRjre74-454RnydxekhbGalion HospitalComment on above:ADA recommended reference rangeGlucose mean value [Mass/volume] in Blood Estimated from glycated hemoglobinOrdered By: Renny Walton on 79-63-6936Udumxvh glucose Estimated from glycated hemoglobin (Bld) [Mass/Vol]111 mg/dLGalion HospitalHematocrit Auto (Bld) [Volume fraction]Ordered By: Renny Walton on 38-27-3127Zcnarobkzr (Bld) [Volume fraction]42.1 %34.0-46.4FWexner Medical CenterHemoglobin [Mass/volume] in BloodOrdered By: Renny Walton on 11-08-3152Frlycbaetl (Bld) [Mass/Vol]13.9 g/dL11.8-15.4FWexner Medical CenterLaboratory - Hematology and Cell countsOrdered By: Renny Walton on 79-27-2732BbA9r (Bld) [Mass fraction]5.5 %4.3-5.6FWexner Medical CenterComment on above:Increased risk for diabetes: 5.7 - 6.4diabetes: >6.4glycemic control for adults with diabetes: <7.0Leukocytes [#/volume] corrected for nucleated erythrocytes in Blood by Automated counOrdered By: Renny Walton on 46-41-8522CKU corrected for nucl RBC Auto (Bld) [#/Vol]5.8 10*3/uL3.8-11.6FWexner Medical Center Lymphocytes Auto (Bld) [#/Vol]Ordered By: Renny Walton on 26-45-6429Qooljijimxe (Bld) [#/Vol]2.0 10*3/uL1.00-4.8[facility] HospitalLymphocytes/100 WBC Auto (Bld)Ordered By: Renny Walton on 38-31-8782Uqzgiuwxetx/100 WBC (Bld)34.5 %.[facility] HospitalMCH Auto (RBC) [Entitic mass]Ordered By: Renny Walton on 97-45-2776NNG (RBC) [Entitic mass]29.7 pg24.7-34.3FWexner Medical CenterMCHC Auto (RBC) [Mass/Vol]Ordered By: Renny Walton on 07-50-4992OYPQ (RBC) [Mass/Vol]32.9 g/dL32.0-35.0[facility] HospitalMCV Auto (RBC) [Entitic vol]Ordered By: Renny Walton on 69-97-6813ONV (RBC) [Entitic vol]90.2 oJ43-588CyufvkhilGalion HospitalMonocytes Auto (Bld) [#/Vol]Ordered By: Renny Walton on 01-67-0841Cdxlwkria (Bld) [#/Vol]0.5 10*3/uL 0.0-0.8[facility] HospitalMonocytes/100 WBC Auto (Bld)Ordered By: Renny Walton on 27-86-0761Fquqziuux/100 WBC (Bld)8.0 %.[facility] HospitalNeutrophils Auto (Bld) [#/Vol]Ordered By: Renny Walton on 11-13-2023 Neutrophils (Bld) [#/Vol]3.1 10*3/uL1.8-7.7FWexner Medical Center Neutrophils/100 WBC Auto (Bld)Ordered By: Renny Walton on 11-13-2023 Neutrophils/100 WBC (Bld)54.1 %.[facility] HospitalNo Panel InformationOrdered By: Renny Walton on 86-04-1728Mryehmglm GFR (CKD-EPI)> 60.0 mL/MinGalion HospitalPharmacy Creatinine Clearance (ChemN/A [facility] HospitalNucleated erythrocytes [Presence] in Blood by Automated countOrdered By: Renny Walton on 90-54-6871Dtuupcdxh RBC Auto Ql (Bld) 0.1 /100{WBC}0-0.5FWexner Medical CenterPlatelet mean volume Auto (Bld) [Entitic vol]Ordered By: Renny Walton on 62-17-2827Kvzxohrp mean volume (Bld) [Entitic vol]7.0 fL6.3-10.7FWexner Medical CenterPlatelets Auto (Bld) [#/Vol]Ordered By: Renny Walton on 50-72-8115Bydintudw (Bld) [#/Vol]276 10*3/zD858-320JwqwhbmgxGalion HospitalPotassium [Moles/volume] in Serum or PlasmaOrdered By: Renny Walton on 24-05-8907Xugwseetu [Moles/Vol]4.1 mmol/L 3.5-5.1FWexner Medical CenterRBC Auto (Bld) [#/Vol]Ordered By: Renny Walton on 19-51-4006AZI (Bld) [#/Vol]4.67 10*6/uL3.60-5.00[facility] Medical Centererum or plasma anion gap determinationOrdered By: Renny Walton on 90-15-6963Wasxw gap [Moles/Vol]10.0 mmol/L6.0-15.0[facility]itt[facility] Medical Centererum or plasma high density lipoprotein (HDL) cholesterol measurement Ordered By: Renny Walton on 89-30-5634Uwlsbvvikjx in HDL [Mass/Vol]51 mg/dL23-92 [facility] HospitalComment on above:HDL CHOL ATP-III CLASSIFICATION Cardiovascular RiskHDL > or equal to 60 mg/dL LOWHDL < 40 mg/dL HIGHSerum or plasma total cholesterol/high density lipoprotein (HDL) cholesterol mass ratOrdered By: Renny Walton on 66-49-0007Ejtravosvsu.total/Cholesterol in HDL [Mass ratio]3.4 {ratio}<5.0[facility]itt[facility] Medical Centerodium [Moles/volume] in Serum or PlasmaOrdered By: Renny Walton on 35-19-6139Wjkhtc [Moles/Vol]141 mmol/C775-370ZpqooflboGalion HospitalThyrotropin [Units/volume] in Serum or PlasmaOrdered By: Renny Walton on 64-29-6681AQM Qn1.75 m[IU]/L0.45-5.33[facility] HospitalTriglyceride [Mass/volume] in Serum or PlasmaOrdered By: Renny Walton on 21-98-6201Jtlrbjmkespy [Mass/Vol]123 mg/dL0-149[facility] HospitalComment on above:TRIG ATP III CLASSIFICATIONTRIG less than 150 mg/dL NormalTRIG 150-199 mg/dL Borderline highTRIG 200-500 mg/dL High TRIG greater than 500 mg/dL Very highStandard traceable to the Center for Disease Conrtrol and Prevention (CDC) test method. Urea nitrogen [Mass/volume] in Serum or PlasmaOrdered By: Renny Walton on 39-25-2966Uqlt nitrogen [Mass/Vol]24 mg/dL7-25[facility] WBC Auto (Bld) [#/Vol]Ordered By: Renny Walton on 65-38-9953PVG (Bld) [#/Vol]5.8 10*3/uL3.8-11.6FWexner Medical CenterA1C HEMOGLOBINon 67-81-8687XkN3j (Bld) [Mass fraction]5.6 %[employer] Other HbA1c (Bld) [Mass fraction]on 30-55-5464N0S HEMOGLOBIN [employer] Other CT ANGIO CORONARY ART WITH HEARTFLOW IF SCORE >30%on 78-61-9227IL ANGIO CORONARY ART WITH HEARTFLOW IF SCORE >30%Interpreted By: Shai Tolentino, ADDENDUM: NON-CARDIOVASCULAR FINDINGS INCLUDED [...] STRUCTURES ARE THE SOLE RESPONSIBILITY OF THE BALANCE AND HAIRSPRING ASSEMBLER SUBMITTING THE ORIGINAL REPORT (NOT THIS ADDENDUM) Signed by: Shai Tolentino 03/14/2023 1:47 PM -------- ORIGINAL REPORT -------- Dictation workstation: [id number] Interpreted By: Anthony Yo, STUDY: CT ANGIO CORONARY ART WITH HEARTFLOW IF SCORE >30%; 03/14/2023 12:00 pm INDICATION: Signs/Symptoms:r07.9. COMPARISON: None. ACCESSION NUMBER(S): [id number] ORDERING CLINICIAN: KAJAL LOERA TECHNIQUE: Using multi-detector CT technology, Karishma 64-slice [...] diffuse coronary artery dise (more content not included)...Normal [facility] HospitalComment on above:Order Comment: Order in aemr prep given pt to obtain lab orderCT CARDIAC SCORING WO IV CONTRASTon 66-96-1463LY CARDIAC SCORING WO IV CONTRASTInterpreted By: Shai Tolentino, ADDENDUM: NON-CARDIOVASCULAR FINDINGS INCLUDED [...] STRUCTURES ARE THE SOLE RESPONSIBILITY OF THE BALANCE AND HAIRSPRING ASSEMBLER SUBMITTING THE ORIGINAL REPORT (NOT THIS ADDENDUM) Signed by: Shai Tolentino 02/17/2023 2:28 PM -------- ORIGINAL REPORT -------- Dictation workstation: [id number] Interpreted By: Anthony Yo, STUDY: CT CARDIAC SCORING WO IV CONTRAST; 02/14/2023 9:00 am INDICATION: Signs/Symptoms:chest pain. COMPARISON: None. ACCESSION NUMBER(S): [id number] ORDERING CLINICIAN: ANNELIESE HOYT TECHNIQUE: Using prospective ECG gating, CT scan [...] coronary heart disease events. According to the [employer] Clinical Expert Consensus [...] modify other non-lipid coronary risk factors. Reference: Michael P et al. Circulation. 2007; 115:402-426 Reading Coil Placer: Dr. Anthony Yo, Date: 02/14/2023 10:23 am Signed by: Anthony Yo 02/14/2023 10:23 AM Dictation workstation: [id number]ng Arms HospitalCalcium [Mass/volume] in Serum or PlasmaOrdered By: Nabil Saxenasojohn on 84-39-5123Rwmogrr [Mass/Vol]9.1 mg/dL8.6-10.3FWexner Medical Center Carbon dioxide, total [Moles/volume] in Serum or PlasmaOrdered By: Nabil Wassojohn on 00-28-2063VN5 [Moles/Vol]25.7 mmol/L21.0-31.0[facility] HospitalChloride [Moles/volume] in Serum or PlasmaOrdered By: Nabil Wassouf on 42-05-3830Pfigmsxn [Moles/Vol]108 mmol/W77-349TxgbadiubGalion HospitalCholesterol [Mass/volume] in Serum or PlasmaOrdered By: Nabil Wassouf on 72-06-3974Nyyqtatnbox [Mass/Vol]122 mg/mW870-564XcniwoiitGalion HospitalComment on above:Chol less than 200 mg/dl low riskChol 201-239 mg/dl borderline riskChol 240 mg/dl and greater high riskCholesterol in LDL Calc [Mass/Vol]Ordered By: Nabil Wassouf on 77-37-6029Woqvwgopagp in LDL [Mass/Vol] 67 mg/dL0-100[facility] HospitalComment on above:LDL ATP III CLASSIFICATIONLDL less than 100 mg/dL OptimalLDL 100-129 mg/dL Near or above rnwghmiNCS900-130 mg/dL Borderline highLDL 160-189 mg/dL HighLDL greater than 189 mg/dL Very highCholesterol in VLDL Calc [Mass/Vol]Ordered By: Nabil Baker on 21-72-0725Qwigygowmqr in VLDL [Mass/Vol]15 mg/dLGalion HospitalCreatinine [Mass/volume] in Serum or PlasmaOrdered By: Nabil Baker on 78-43-7175Bycvdsmcld [Mass/Vol]0.83 mg/dL0.60-1.20[facility] HospitalGlucose [Mass/volume] in Serum or PlasmaOrdered By: Nabil Baker on 82-12-5359Zbfdmmi [Mass/Vol]101 mg/hJ15-757VpwbdusljGalion Hospital Comment on above:ADA recommended reference rangeRandom Glucose Reference Range is dependent on time and content of last meal. Glucose of more than 200 mg/dL in a nonstressed, ambulatory subject supports the diagnosisof Diabetes Mellitus. Magnesium [Mass/volume] in Serum or PlasmaOrdered By: Nabil Baker on 28-93-2916Jqvbtilgr [Mass/Vol]2.2 mg/dL1.9-2.7FWexner Medical Center No Panel InformationOrdered By: Nabil Baker on 91-53-9386Bpasfpakl GFR (CKD-EPI)> 60.0 mL/MinGalion HospitalPharmacy Creatinine Clearance (Chem87.71[facility] HospitalPotassium [Moles/volume] in Serum or PlasmaOrdered By: Nabil Baker on 01-11-5089Hiumvlstv [Moles/Vol]3.6 mmol/L3.5-5.1FProMedica Defiance Regional Hospitalerum or plasma anion gap determinationOrdered By: Nabil Baker on 36-57-8300Caacb gap [Moles/Vol]10.9 mmol/L6.0-15.0[facility] Medical Centererum or plasma high density lipoprotein (HDL) cholesterol measurementOrdered By: Nabil Baker on 27-94-2535Uoqyeoxnouc in HDL [Mass/Vol]39 mg/vO69-36IzbthjrazGalion HospitalComment on above:HDL CHOL ATP-III CLASSIFICATION Cardiovascular RiskHDL > or equal to 60 mg/dL LOWHDL < 40 mg/dL HIGHSerum or plasma total cholesterol/high density lipoprotein (HDL) cholesterol mass ratOrdered By: Nabil Baker on 65-47-6006Mpdcylddlud.total/Cholesterol in HDL [Mass ratio]3.1 {ratio}<5.0[facility] Medical Centerodium [Moles/volume] in Serum or PlasmaOrdered By: Nabil Baker on 10-26-3575Kzsknl [Moles/Vol]141 mmol/L 136-145[facility] HospitalTriglyceride [Mass/volume] in Serum or PlasmaOrdered By: Nabil Baker on 44-73-1668Strvfzjlppca [Mass/Vol]78 mg/dL 0-149[facility] HospitalComment on above:TRIG ATP III CLASSIFICATIONTRIG less than 150 mg/dL NormalTRIG 150-199 mg/dL Borderline highTRIG 200-500 mg/dL High TRIG greater than 500 mg/dL Very highStandard traceable to the Center for Disease Conrtrol and Prevention (CDC) test method. Troponin I.cardiac [Mass/volume] in Serum or Plasma by Detection limit <= 0.01 ng/Ordered By: Nabil Baker on 77-06-4113Zjpaivnv I.cardiac DL <= 0.01 ng/mL [Mass/Vol]8.5 pg/mL0.0-15.0[facility] HospitalUrea nitrogen [Mass/volume] in Serum or PlasmaOrdered By: Nabil Baker on 31-88-0551Tjnr nitrogen [Mass/Vol]25 mg/dL7-[facility] HospitalActivated partial thromboplastin time (aPTT) in platelet poor plasma by coagulation a Ordered By: Erika Escobedo on 08-48-1153uPBX Coag (PPP) [Time]20.6 s25.1-36.5 [facility] HospitalAlanine aminotransferase [Enzymatic activity/volume] in Serum or PlasmaOrdered By: Erika Escobedo on 96-02-7800TCD [Catalytic activity/Vol]25 U/L7-52Gal[facility] HospitalAlbumin [Mass/volume] in Serum or Plasma by Bromocresol green (BCG) dye binding metho Ordered By: Erika Escobedo on 42-78-1170Nladlow BCG dye [Mass/Vol]4.1 g/dL 3.5-5.7FWexner Medical CenterAlkaline phosphatase [Enzymatic activity/volume] in Serum or PlasmaOrdered By: Erika Escobedo on 85-41-7442YFW [Catalytic activity/Vol]55 U/L73-244WmdtaemrvGalion HospitalAspartate aminotransferase [Enzymatic activity/volume] in Serum or PlasmaOrdered By: Erika Escobedo on 99-17-6039MGU [Catalytic activity/Vol]20 U/Z33-90ZothehzidGalion HospitalBasophils Auto (Bld) [#/Vol]Ordered By: Erika Escobedo on 97-48-2884Ghlhbhhzm (Bld) [#/Vol]0.1 10*3/uL0.0-0.2FWexner Medical CenterBasophils/100 WBC Auto (Bld)Ordered By: Erika Escobedo on 01-03-2023 Basophils/100 WBC (Bld)1.0 %.[facility]ion HospitalBilirubin Test strip Ql (U)Ordered By: Erika Escobeod on 06-22-6200Taeyykbiy Ql (U)Negative NegativeGalion HospitalBilirubin.total [Mass/volume] in Serum or PlasmaOrdered By: Erika Escobedo on 72-74-2487Yvtfpsrne [Mass/Vol]0.4 mg/dL 0.3-1.0[facility] HospitalCalcium [Mass/volume] in Serum or Plasma Ordered By: Erika Escobedo on 62-75-5314Nrutaos [Mass/Vol]9.3 mg/dL8.6-10.3 [facility] HospitalCarbon dioxide, total [Moles/volume] in Serum or PlasmaOrdered By: Erika Escobedo on 08-45-9899ZD2 [Moles/Vol]24.5 mmol/L 21.0-31.0[facility] HospitalChloride [Moles/volume] in Serum or PlasmaOrdered By: Erika Escobedo on 17-36-5338Qqdvtrsn [Moles/Vol]106 mmol/L 98-107Galion HospitalColor Auto (U)Ordered By: Erika Escobedo on 68-57-5814Mjyzx (U)YellowYellowGalion HospitalCreatine kinase [Enzymatic activity/volume] in Serum or PlasmaOrdered By: Erika Escobedo on 98-73-5329WD [Catalytic activity/Vol]31 U/J49-952FlmcnrorbGalion HospitalCreatinine [Mass/volume] in Serum or PlasmaOrdered By: Erika Escobedo on 51-12-5840Rapretvkgg [Mass/Vol]0.82 mg/dL0.60-1.20[facility] HospitalEosinophils Auto (Bld) [#/Vol]Ordered By: Erika Escobedo on 01-03-2023 Eosinophils (Bld) [#/Vol]0.1 10*3/uL0.0-0.45[facility] Eosinophils/100 WBC Auto (Bld)Ordered By: Erika Escobedo on 01-03-2023 Eosinophils/100 WBC (Bld)0.7 %.[facility] HospitalErythrocyte distribution width Auto (RBC) [Ratio]Ordered By: Erika Escobedo on 01-03-2023 Erythrocyte distribution width (RBC) [Ratio]12.8 %11.9-15.3FWexner Medical CenterGlobulin Calc (S) [Mass/Vol]Ordered By: Erika Escobedo on 11-11-6024Ouqeekiu (S) [Mass/Vol]3.3 g/dLGalion Hospital Glucose [Mass/volume] in Serum or PlasmaOrdered By: Erika Escobedo on 01-03-2023 Glucose [Mass/Vol]107 mg/dD25-716EnxxvqorrGalion HospitalComment on above:ADA recommended reference rangeRandom Glucose Reference Range is dependent on time and content of last meal. Glucose of more than 200 mg/dL in a nonstressed, ambulatory subject supports the diagnosisof Diabetes Mellitus. Hematocrit Auto (Bld) [Volume fraction]Ordered By: Erika Escobedo on 01-03-2023 Hematocrit (Bld) [Volume fraction]43.7 %34.0-46.4FWexner Medical CenterHemoglobin [Mass/volume] in BloodOrdered By: Erika Escobedo on 01-03-2023 Hemoglobin (Bld) [Mass/Vol]14.7 g/dL11.8-15.4FWexner Medical Center INR in Platelet poor plasma by Coagulation assayOrdered By: Erika Escobedo on 69-56-9409RJA Coag (PPP) [Relative time]1.1 {INR}[facility] HospitalComment on above:INR Therapeutic Range A) Pre- and Peroperative OAT started two weeks before surgery. NOT HIP SURGERY: 1.5 - 2.5 HIP SURGERY: 2 - 3B) Primary and secondary prevention of venous THROMBOSIS: 2 - 3C) Active venous thrombosis, pulmonary embolismand prevention of recurrent venous thrombosis: 2 - 3D) Prevention of arterial thromboembolismincluding patients with mechanical heart valves: 3 - 4.5Ketones Auto test strip (U) [Mass/Vol]Ordered By: Erika Escobedo on 43-92-8473Xmtoqtw (U) [Mass/Vol]NegativeNegativeGalion HospitalLaboratory - CoagulationOrdered By: Eriak Escobedo on 39-15-1627IV Coag (PPP) [Time]12.7 s9.0-12.9Gal[facility] HospitalLeukocytes [#/volume] corrected for nucleated erythrocytes in Blood by Automated coun Ordered By: Erika Escobedo on 60-98-0124IVN corrected for nucl RBC Auto (Bld) [#/Vol]8.2 10*3/uL3.8-11.6FWexner Medical CenterLymphocytes Auto (Bld) [#/Vol]Ordered By: Erika Escobedo on 90-13-8706Oizoswfhwah (Bld) [#/Vol] 1.2 10*3/uL1.00-4.8[facility] HospitalLymphocytes/100 WBC Auto (Bld)Ordered By: Erika Escobedo on 55-09-6971Edukkecctcd/100 WBC (Bld)15.0 %. [facility] Auto (RBC) [Entitic mass]Ordered By: Erika Escobedo on 16-41-8746JPJ (RBC) [Entitic mass]30.3 pg24.7-34.3FWexner Medical CenterMCHC Auto (RBC) [Mass/Vol]Ordered By: Erika Escobedo on 01-03-2023 MCHC (RBC) [Mass/Vol]33.6 g/dL32.0-35.0[facility] HospitalMCV Auto (RBC) [Entitic vol]Ordered By: Erika Escobedo on 04-01-0549RJX (RBC) [Entitic vol]90.2 yU65-184EluwlrxttGalion HospitalMonocyte distribution width [Entitic volume] in Blood by AutomatedOrdered By: Erika Escobedo on 01-03-2023 Monocyte distribution width Auto (Bld) [Entitic vol]22.07 %0.00-20.00Gal[facility] HospitalComment on above:For adults in ED, MDW > 20.0 may be associated with a higher risk of sepsis during the first 12 hrs of hospital admissionMonocytes Auto (Bld) [#/Vol]Ordered By: Erika Escobedo on 01-03-2023 Monocytes (Bld) [#/Vol]0.7 10*3/uL0.0-0.8[facility] Monocytes/100 WBC Auto (Bld)Ordered By: Erika Escobedo on 01-03-2023 Monocytes/100 WBC (Bld)8.4 %.[facility] HospitalNatriuretic peptide B [Mass/Vol]Ordered By: Erika Escobedo on 28-30-3399Juitfjjqyqf peptide B (Bld) [Mass/Vol]19.0 pg/mL5-100Gal[facility] HospitalNeutrophils Auto (Bld) [#/Vol]Ordered By: Erika Escobedo on 63-26-7269Yjobaykwvcw (Bld) [#/Vol]6.2 10*3/uL1.8-7.7FWexner Medical CenterNeutrophils/100 WBC Auto (Bld)Ordered By: Erika Escobedo on 80-39-0462Gxfumtzvrob/100 WBC (Bld)74.9 %.[facility] HospitalNitrite Test strip Ql (U)Ordered By: Erika Escobedo on 85-17-9655Ctrkvas Ql (U)NegativeNegativeGalion HospitalNo Panel InformationOrdered By: Erika Escobedo on 84-75-7829Ogegqrxyd GFR (CKD-EPI)> 60.0 mL/MinGalion HospitalPharmacy Creatinine Clearance (Chem89.05Gal[facility] HospitalNucleated erythrocytes [Presence] in Blood by Automated countOrdered By: Erika Escobedo on 01-03-2023 Nucleated RBC Auto Ql (Bld)0.1 /100{WBC}0-0.5FWexner Medical Center Platelet mean volume Auto (Bld) [Entitic vol]Ordered By: Erika Escobedo on 90-79-7477Uybrcsss mean volume (Bld) [Entitic vol]7.2 fL6.3-10.7FWexner Medical CenterPlatelets Auto (Bld) [#/Vol]Ordered By: Erika Escobedo on 25-41-1698Ynclhkewz (Bld) [#/Vol]270 10*3/tM856-579OmpxylhilGalion HospitalPotassium [Moles/volume] in Serum or PlasmaOrdered By: Erika Escobedo on 20-15-2574Oykshpwuq [Moles/Vol]3.5 mmol/L3.5-5.1FWexner Medical CenterProtein Auto test strip (U) [Mass/Vol]Ordered By: Erika Escobedo on 65-66-4724Eabhnzp (U) [Mass/Vol]NegativeNegativeGalion HospitalProtein [Mass/volume] in Serum or PlasmaOrdered By: Erika Escobedo on 19-68-9775Afmoduv [Mass/Vol]7.4 g/dL6.4-8.9Gal[facility] HospitalRBC Auto (Bld) [#/Vol]Ordered By: Erika Escobedo on 62-42-4925JBR (Bld) [#/Vol]4.84 10*6/uL3.60-5.00[facility] Medical Centererum or plasma albumin/globulin mass ratioOrdered By: Erika Escobedo on 01-03-2023 Albumin/Globulin [Mass ratio]1.2 {ratio}[facility] Medical Centererum or plasma anion gap determinationOrdered By: Erika Escobedo on 15-54-3244Mwysh gap [Moles/Vol]11.0 mmol/L6.0-15.0[facility] Medical Centerodium [Moles/volume] in Serum or PlasmaOrdered By: Erika Escobedo on 31-00-8815Mhxzum [Moles/Vol]138 mmol/G276-581BsyydukreSumma Health Wadsworth - Rittman Medical Centerpecific gravity Auto test strip (U) [Rel density]Ordered By: Erika Escobedo on 01-03-2023 Specific gravity (U) [Rel density]1.0241.001-1.030Gal[facility] HospitalTroponin I.cardiac [Mass/volume] in Serum or Plasma by Detection limit <= 0.01 ng/Ordered By: Erika Escobedo on 73-82-2885Bbezkoyq I.cardiac DL <= 0.01 ng/mL [Mass/Vol]13.3 pg/mL0.0-15.0[facility] HospitalUrea nitrogen [Mass/volume] in Serum or PlasmaOrdered By: Erika Escobedo on 09-15-5331Uzjf nitrogen [Mass/Vol]29 mg/dL7-25Gal[facility] HospitalUrine clarity by refractometry automatedOrdered By: Erika Escobedo on 65-29-0149Fqyyrph Refractometry automated (U)ClearCleThe Bellevue HospitalUrine glucose measurement by automated test strip (mass/volume)Ordered By: Erika Escobedo on 50-06-8668Whutdqi Auto test strip (U) [Mass/Vol]Normal mg/dLNoCleveland Clinic Union HospitalUrine hemoglobin detection by automated test stripOrdered By: Erika Escobedo on 02-27-6045Gfmnwdcvky Auto test strip Ql (U) NegativeNegMercy Health St. Joseph Warren HospitalUrine leukocyte esterase detection by automated test stripOrdered By: Erika Escobedo on 01-03-2023 Leukocyte esterase Auto test strip Ql (U)NegativeNegMercy Health St. Joseph Warren HospitalUrobilinogen Auto test strip (U) [Mass/Vol]Ordered By: Erika Escobedo on 25-83-6993Ernzlfhdofkm (U) [Mass/Vol]Normal mg/dLNormGalion Community HospitalWBC Auto (Bld) [#/Vol]Ordered By: Erika Escobedo on 17-93-2933IOV (Bld) [#/Vol]8.2 10*3/uL3.8-11.6FWexner [facility] Center pH Auto test strip (U)Ordered By: Erika Escobedo on 57-01-5783dR (U)6.5 [pH] 5.0-9.0[facility] HospitalAlanine aminotransferase [Enzymatic activity/volume] in Serum or PlasmaOrdered By: Renny Walton on 33-17-0522OPN [Catalytic activity/Vol]30 U/L7-52[facility] HospitalAlbumin [Mass/volume] in Serum or Plasma by Bromocresol green (BCG) dye binding metho Ordered By: Renny Walton on 17-70-0259Kwwhjsd BCG dye [Mass/Vol]4.3 g/dL3.5-5.7 [facility] HospitalAlkaline phosphatase [Enzymatic activity/volume] in Serum or PlasmaOrdered By: Renny Walton on 59-79-6202BVR [Catalytic activity/Vol]53 U/T57-870WchpzwkjbGalion HospitalAspartate aminotransferase [Enzymatic activity/volume] in Serum or PlasmaOrdered By: Renny Walton on 86-95-5002KYI [Catalytic activity/Vol]19 U/X78-23CpdbuserkGalion HospitalBasophils Auto (Bld) [#/Vol]Ordered By: Renny Walton on 11-08-2022 Basophils (Bld) [#/Vol]0.1 10*3/uL0.0-0.2FWexner [facility] Center Basophils/100 WBC Auto (Bld)Ordered By: Renny Walton on 11-17-6473Wltxrvjta/100 WBC (Bld)1.0 %.[facility] HospitalBilirubin.total [Mass/volume] in Serum or PlasmaOrdered By: Renny Walton on 11-44-5276Cqshbswow [Mass/Vol]0.7 mg/dL0.3-1.0[facility] HospitalCalcium [Mass/volume] in Serum or PlasmaOrdered By: Renny Walton on 44-49-6686Bsikorg [Mass/Vol]9.1 mg/dL8.6-10.3 [facility] HospitalCarbon dioxide, total [Moles/volume] in Serum or PlasmaOrdered By: Renny Walton on 22-34-8904PY1 [Moles/Vol]28.2 mmol/L21.0-31.0 [facility] HospitalChloride [Moles/volume] in Serum or Plasma Ordered By: Renny Walton on 43-02-5655Qqykrgpn [Moles/Vol]106 mmol/L98-107 [facility] HospitalCholesterol [Mass/volume] in Serum or Plasma Ordered By: Renny Walton on 80-26-5289Mhvhspdfrfh [Mass/Vol]167 mg/uD314-355 [facility] HospitalComment on above:Chol less than 200 mg/dl low riskChol 201-239 mg/dl borderline riskChol 240 mg/dl and greater high risk Cholesterol in LDL Calc [Mass/Vol]Ordered By: Renny Walton on 11-08-2022 Cholesterol in LDL [Mass/Vol]91 mg/dL0-100[facility] Comment on above:LDL ATP III CLASSIFICATIONLDL less than 100 mg/dL OptimalLDL 100-129 mg/dL Near or above zsmgtbfKOJ110-507 mg/dL Borderline highLDL 160-189 mg/dL HighLDL greater than 189 mg/dL Very highCholesterol in VLDL Calc [Mass/Vol]Ordered By: Renny Walton on 73-26-4674Zvzxytmoeqf in VLDL [Mass/Vol]20 mg/dLGalion HospitalCreatinine [Mass/volume] in Serum or PlasmaOrdered By: Renny Walton on 97-02-0892Jwnmkawnbo [Mass/Vol]0.63 mg/dL 0.60-1.20[facility] HospitalEosinophils Auto (Bld) [#/Vol]Ordered By: Renny Walton on 10-12-8319Vtbmspzzedv (Bld) [#/Vol]0.1 10*3/uL0.0-0.45 [facility] HospitalEosinophils/100 WBC Auto (Bld)Ordered By: Renny Walton on 18-99-0995Hxhdcpxwffx/100 WBC (Bld)1.0 %.[facility] HospitalErythrocyte distribution width Auto (RBC) [Ratio]Ordered By: Renny Walton on 44-42-3393Brdfmrmdjdy distribution width (RBC) [Ratio]13.1 %11.9-15.3FWexner Medical CenterGlobulin Calc (S) [Mass/Vol]Ordered By: Renny Walton on 00-78-3871Exzdmsib (S) [Mass/Vol]2.9 g/dLGalion Hospital Glucose [Mass/volume] in Serum or PlasmaOrdered By: Renny Walton on 11-08-2022 Glucose [Mass/Vol]110 mg/fG25-574RqeadbjrlGalion HospitalComment on above:ADA recommended reference rangeGlucose mean value [Mass/volume] in Blood Estimated from glycated hemoglobinOrdered By: Renny Walton on 69-67-5214Pjpjjgh glucose Estimated from glycated hemoglobin (Bld) [Mass/Vol]114 mg/dLGalion HospitalHematocrit Auto (Bld) [Volume fraction]Ordered By: Renny Walton on 57-11-9550Cxjgetqwbx (Bld) [Volume fraction]42.2 %34.0-46.4FWexner Medical CenterHemoglobin [Mass/volume] in BloodOrdered By: Renny Walton on 37-20-5151Iukalznfad (Bld) [Mass/Vol]14.2 g/dL11.8-15.4FWexner Medical CenterLaboratory - Hematology and Cell countsOrdered By: Renny Walton on 54-15-6658MsN9r (Bld) [Mass fraction]5.6 %4.3-5.6FWexner Medical CenterComment on above:Increased risk for diabetes: 5.7 - 6.4diabetes: >6.4glycemic control for adults with diabetes: <7.0Leukocytes [#/volume] corrected for nucleated erythrocytes in Blood by Automated counOrdered By: Renny Walton on 24-50-4246VMN corrected for nucl RBC Auto (Bld) [#/Vol]7.0 10*3/uL 3.8-11.6FWexner Medical CenterLymphocytes Auto (Bld) [#/Vol]Ordered By: Renny Walton on 53-70-6670Ktjspbvqfvf (Bld) [#/Vol]1.9 10*3/uL1.00-4.8 [facility] HospitalLymphocytes/100 WBC Auto (Bld)Ordered By: Renny Walton on 76-63-9833Ypwvqbhgpkh/100 WBC (Bld)26.9 %.[facility] Auto (RBC) [Entitic mass]Ordered By: Renny Walton on 22-31-1744EGL (RBC) [Entitic mass]30.8 pg24.7-34.3FWexner Medical CenterMCHC Auto (RBC) [Mass/Vol]Ordered By: Renny Walton on 75-17-0650FKYC (RBC) [Mass/Vol]33.5 g/dL 32.0-35.0[facility] HospitalMCV Auto (RBC) [Entitic vol]Ordered By: Renny Walton on 78-89-9072MZT (RBC) [Entitic vol]91.7 kL68-894HkssxluxmGalion HospitalMonocytes Auto (Bld) [#/Vol]Ordered By: Renny Walton on 46-06-8290Muqgodnfp (Bld) [#/Vol]0.5 10*3/uL0.0-0.8[facility] HospitalMonocytes/100 WBC Auto (Bld)Ordered By: Renny Walton on 11-08-2022 Monocytes/100 WBC (Bld)7.0 %.[facility] HospitalNeutrophils Auto (Bld) [#/Vol]Ordered By: Renny Walton on 80-11-9672Bonqhamyepa (Bld) [#/Vol]4.5 10*3/uL1.8-7.7FWexner Medical CenterNeutrophils/100 WBC Auto (Bld) Ordered By: Renny Walton on 52-84-5080Iryxvdheozx/100 WBC (Bld)64.1 %.[facility] HospitalNo Panel InformationOrdered By: Renny Walton on 11-08-2022 Estimated GFR (CKD-EPI)> 60.0 mL/MinGalion HospitalNicotine MetaboliteNegativeCutoff=25Gal[facility] HospitalComment on above: Performed at: BN - [facility] [address] [id number] Director: Merary Mccartney MD, Phone: [phone] Creatinine Clearance (ChemN/Premier HealthNucleated erythrocytes [Presence] in Blood by Automated countOrdered By: Renny Walton on 11-08-2022 Nucleated RBC Auto Ql (Bld)0.1 /100{WBC}0-0.5FW[facility] Center Platelet mean volume Auto (Bld) [Entitic vol]Ordered By: Renny Walton on 70-87-7613Qjszaznk mean volume (Bld) [Entitic vol]7.0 fL6.3-10.7FWexner Medical CenterPlatelets Auto (Bld) [#/Vol]Ordered By: Renny Walton on 75-76-0174Myndxywpt (Bld) [#/Vol]304 10*3/mQ016-247TpiqcrgweGalion HospitalPotassium [Moles/volume] in Serum or PlasmaOrdered By: Renny Walton on 78-33-2488Pfyazsyzo [Moles/Vol]3.9 mmol/L3.5-5.1FWexner Medical CenterProtein [Mass/volume] in Serum or PlasmaOrdered By: Renny Walton on 79-01-8703Jykqyee [Mass/Vol]7.2 g/dL6.4-8.9[facility] HospitalRBC Auto (Bld) [#/Vol]Ordered By: Renny Walton on 44-78-0542BKK (Bld) [#/Vol]4.60 10*6/uL3.60-5.00[facility] Medical Centererum or plasma albumin/globulin mass ratioOrdered By: Renny Walton on 75-67-1483Ngyysdb/Globulin [Mass ratio]1.5 {ratio}[facility] Medical Centererum or plasma anion gap determinationOrdered By: Renny Walton on 58-24-6335Rirpj gap [Moles/Vol]11.7 mmol/L6.0-15.0[facility] Medical Centererum or plasma high density lipoprotein (HDL) cholesterol measurementOrdered By: Renny Walton on 11-08-2022 Cholesterol in HDL [Mass/Vol]55 mg/cZ94-26PzszzwgncGalion Hospital Comment on above:HDL CHOL ATP-III CLASSIFICATION Cardiovascular RiskHDL > or equal to 60 mg/dL LOWHDL < 40 mg/dL HIGHSerum or plasma total cholesterol/high density lipoprotein (HDL) cholesterol mass ratOrdered By: Renny Walton on 84-67-8128Wuinefnnkye.total/Cholesterol in HDL [Mass ratio]3.0 {ratio}<5.0 [facility] Medical Centerodium [Moles/volume] in Serum or PlasmaOrdered By: Renny Walton on 59-57-0956Ecuqks [Moles/Vol]142 mmol/X562-823XylfhlefdGalion HospitalThyrotropin [Units/volume] in Serum or PlasmaOrdered By: Renny Walton on 80-40-9283DPZ Qn2.88 m[IU]/L0.45-5.33[facility] HospitalTriglyceride [Mass/volume] in Serum or PlasmaOrdered By: Renny Walton on 46-71-2432Ppnrwcmnpuef [Mass/Vol]103 mg/dL0-149[facility] Comment on above:TRIG ATP III CLASSIFICATIONTRIG less than 150 mg/dL NormalTRIG 150-199 mg/dL Borderline highTRIG 200-500 mg/dL High TRIG greater than 500 mg/dL Very highStandard traceable to the Center for Disease Conrtrol and Prevention (CDC) test method.Urea nitrogen [Mass/volume] in Serum or PlasmaOrdered By: Renny Walton on 44-63-6080Omov nitrogen [Mass/Vol]17 mg/dL7-25[facility] HospitalWBC Auto (Bld) [#/Vol]Ordered By: Renny Walton on 39-35-2185FOG (Bld) [#/Vol]7.0 10*3/uL3.8-11.6FWexner Medical CenterAlanine aminotransferase [Enzymatic activity/volume] in Serum or PlasmaOrdered By: Rafael Salamanca on 80-65-2251ACC [Catalytic activity/Vol]37 U/L7-52[facility] HospitalAlbumin [Mass/volume] in Serum or Plasma by Bromocresol green (BCG) dye binding methoOrdered By: Rafael Salamanca on 51-43-5182Xgznlds BCG dye [Mass/Vol]4.3 g/dL3.5-5.7FWexner Medical CenterAlkaline phosphatase [Enzymatic activity/volume] in Serum or PlasmaOrdered By: Rafael Salamanca on 63-99-4193KAD [Catalytic activity/Vol]56 U/A79-518NzujmlubnGalion HospitalAspartate aminotransferase [Enzymatic activity/volume] in Serum or PlasmaOrdered By: Rafael Salamanca on 48-55-1718KEU [Catalytic activity/Vol]22 U/L 13-39[facility] HospitalBasophils Auto (Bld) [#/Vol]Ordered By: Rafael Salamanca on 87-53-5844Nxmhsnsvh (Bld) [#/Vol]0.1 10*3/uL0.0-0.2FWexner Medical CenterBasophils/100 WBC Auto (Bld)Ordered By: Rafael Reedangelito on 67-73-6728Hgpaxgwrq/100 WBC (Bld)0.9 %.[facility] Bilirubin.total [Mass/volume] in Serum or PlasmaOrdered By: Rafael Reedangelito on 14-13-4531Fpbsjwrey [Mass/Vol]0.6 mg/dL0.3-1.0[facility] Calcium [Mass/volume] in Serum or PlasmaOrdered By: Rafael Reedangelito on 08-16-2022 Calcium [Mass/Vol]9.4 mg/dL8.6-10.3FWexner Medical CenterCarbon dioxide, total [Moles/volume] in Serum or PlasmaOrdered By: Rafael Reedangelito on 08-80-4399PY2 [Moles/Vol]30.5 mmol/L21.0-31.0[facility] Chloride [Moles/volume] in Serum or PlasmaOrdered By: Rafael Reedangelito on 08-16-2022 Chloride [Moles/Vol]104 mmol/U93-749FzrmsussyGalion HospitalCreatinine [Mass/volume] in Serum or PlasmaOrdered By: Rafael Reedangelito on 40-64-5403Kgfeljsakk [Mass/Vol]0.65 mg/dL0.60-1.20[facility] HospitalEosinophils Auto (Bld) [#/Vol]Ordered By: Rafael Reedangelito on 71-92-4683Eqgkwbbemwk (Bld) [#/Vol]0.1 10*3/uL0.0-0.45[facility] HospitalEosinophils/100 WBC Auto (Bld) Ordered By: Rafael Cheikh on 49-08-2758Wgcjrwmeyvy/100 WBC (Bld)1.1 %.[facility] HospitalErythrocyte distribution width Auto (RBC) [Ratio]Ordered By: Rafael Salamanca on 07-30-2267Xsvvegzoxpk distribution width (RBC) [Ratio]13.0 % 11.9-15.3FWexner Medical CenterFree thyroxine indexOrdered By: Rafael Salamanca on 14-91-9521Yhao T4 index Calc [Mass/Vol]2.51.2-4.9[facility] HospitalGlobulin Calc (S) [Mass/Vol]Ordered By: Rafael Salamanca 90-15-1594Tajsyuqq (S) [Mass/Vol]3.0 g/dLGalion Hospital Glucose [Mass/volume] in Serum or PlasmaOrdered By: Rafael Salamanca on 08-16-2022 Glucose [Mass/Vol]105 mg/zE27-391LugqwwdfwGalion HospitalComment on above:ADA recommended reference rangeRandom Glucose Reference Range is dependent on time and content of last meal. Glucose of more than 200 mg/dL in a nonstressed, ambulatory subject supports the diagnosisof Diabetes Mellitus. Hematocrit Auto (Bld) [Volume fraction]Ordered By: Rafael Salamanca on 08-16-2022 Hematocrit (Bld) [Volume fraction]42.3 %34.0-46.4FWexner Medical CenterHemoglobin [Mass/volume] in BloodOrdered By: Rafael Salamanca 08-16-2022 Hemoglobin (Bld) [Mass/Vol]14.2 g/dL11.8-15.4FW[facility] Center Iron [Mass/volume] in Serum or PlasmaOrdered By: Rafael Salamanca 19-98-5664Mzkt [Mass/Vol]87 ug/kM08-119LgvneimpkGalion HospitalLeukocytes [#/volume] corrected for nucleated erythrocytes in Blood by Automated counOrdered By: Rafael Salamanca 32-83-7623HVV corrected for nucl RBC Auto (Bld) [#/Vol]7.0 10*3/uL3.8-11.6FWexner Medical CenterLymphocytes Auto (Bld) [#/Vol] Ordered By: Rafael Salamanca 94-84-4337Jtablqzleuz (Bld) [#/Vol]1.8 10*3/uL 1.00-4.8[facility] HospitalLymphocytes/100 WBC Auto (Bld)Ordered By: Rafael Salamanca on 73-45-6807Qdggejampyt/100 WBC (Bld)26.0 %.[facility] HospitalH Auto (RBC) [Entitic mass]Ordered By: Rafael Salamanca on 08-16-2022 MCH (RBC) [Entitic mass]30.4 pg24.7-34.3FSouthwest General Health CenterHC Auto (RBC) [Mass/Vol]Ordered By: Rafael Salamanca on 39-34-4261JWFV (RBC) [Mass/Vol] 33.7 g/dL32.0-35.0[facility] HospitalV Auto (RBC) [Entitic vol] Ordered By: Rafael Salamanca on 63-67-7315XXT (RBC) [Entitic vol]90.2 yE37-569 [facility] HospitalMagnesium [Mass/volume] in Serum or Plasma Ordered By: Rafael Salamanca on 86-89-9354Nqlqfwclt [Mass/Vol]2.0 mg/dL1.9-2.7 [facility] HospitalMonocytes Auto (Bld) [#/Vol]Ordered By: Rafael Salamanca on 82-99-5537Dlhbtrwhn (Bld) [#/Vol]0.5 10*3/uL0.0-0.8[facility] HospitalMonocytes/100 WBC Auto (Bld)Ordered By: Rafael Salamanca on 08-16-2022 Monocytes/100 WBC (Bld)7.1 %.[facility] HospitalNeutrophils Auto (Bld) [#/Vol]Ordered By: Rafael Salamanca on 74-73-3664Ryxalztmqzx (Bld) [#/Vol]4.5 10*3/uL1.8-7.7FWexner Medical CenterNeutrophils/100 WBC Auto (Bld) Ordered By: Rafael Salamanca on 71-29-6569Divcmesqvxl/100 WBC (Bld)64.9 %.[facility] HospitalNo Panel InformationOrdered By: Rafael Salamanca on 08-16-2022 Estimated GFR (CKD-EPI)> 60.0 mL/MinGalion HospitalFree Thyroxine (T4) Direct8.8 ug/dL4.5-12.0[facility] HospitalPharmacy Creatinine Clearance (ChemN/AFWexner Medical CenterNucleated erythrocytes [Presence] in Blood by Automated countOrdered By: Rafael Salamanca on 75-87-7105Ugidtbzol RBC Auto Ql (Bld)0.0 /100{WBC}0-0.5FWexner Medical CenterPlatelet mean volume Auto (Bld) [Entitic vol]Ordered By: Rafael Salamanca on 30-38-1746Pxbkqfzw mean volume (Bld) [Entitic vol]7.3 fL6.3-10.7FWexner Medical CenterPlatelets Auto (Bld) [#/Vol]Ordered By: Raafel Salamanca on 31-49-8918Vxbitmiab (Bld) [#/Vol]280 10*3/jN213-855YwfrlhmbgGalion HospitalPotassium [Moles/volume] in Serum or PlasmaOrdered By: Rafael Salamanca on 72-36-6312Gsrbtrnlf [Moles/Vol]3.6 mmol/L3.5-5.1FWexner Medical CenterProtein [Mass/volume] in Serum or PlasmaOrdered By: Rafael Salamanca on 07-79-2494Eghgsbz [Mass/Vol]7.3 g/dL6.4-8.9[facility] HospitalRBC Auto (Bld) [#/Vol]Ordered By: Rafael Salamanca on 87-71-3406XYK (Bld) [#/Vol]4.69 10*6/uL3.60-5.00[facility] Medical Centererum or plasma albumin/globulin mass ratioOrdered By: Rafael Salamanca on 70-23-6613Idxukot/Globulin [Mass ratio]1.4 {ratio}[facility] Medical Centererum or plasma anion gap determinationOrdered By: Rafael Salamanca on 43-05-6063Fgesd gap [Moles/Vol]10.1 mmol/L6.0-15.0[facility] Medical Centerodium [Moles/volume] in Serum or PlasmaOrdered By: Rafael Salamanca on 40-44-5298Gszcbd [Moles/Vol]141 mmol/N242-484 [facility] HospitalTSH DL <= 0.005 mIU/L QnOrdered By: Rafael Hoy on 57-47-9173JOS Qn1.920 m[IU]/L0.450-4.500[facility] Triiodothyronine (T3) [Mass/volume] in Serum or PlasmaOrdered By: Rafael Salamanca on 79-45-3155X1 [Mass/Vol]81 ng/jT87-858SkhnidhkmGalion HospitalComment on above:Performed at: - [facility] [id number] Director: Tomas Nick PhD, Phone: [phone] (T3) resin uptake testOrdered By: Rafael Salamanca on 49-66-9976U3WB77 %24-39 [facility] HospitalUrea nitrogen [Mass/volume] in Serum or Plasma Ordered By: Rafael Salamanca on 42-16-4817Fjox nitrogen [Mass/Vol]24 mg/dL7-25 [facility] HospitalWBC Auto (Bld) [#/Vol]Ordered By: Rafael Salamanca on 96-21-2381PNQ (Bld) [#/Vol]7.0 10*3/uL3.8-11.6FWexner Medical CenterXR knee RT 2Von 23-87-8724IP [facility] 2V[facility] Other [facility] 2[facility] Other XR knee RT [id number] [place] [address] DDN Other XR knee RT 2VSJeffrey V[place] [id number] [facility] Other [facility] 2[facility] Other [facility] Other XR knee RT 2VPatient: Nancy Hooper MR#: [id number] [facility] DDN Other XR knee RT 1T89Bsoih [facility] Other XR knee RT 2VDOB: 1960 Acct:[id number] [facility] Other XR knee RT 2VAge/Sex: 62 / F ADM Date: 08/08/22[facility] Other XR knee RT 2VLoc: SOXD Room: Type: [facility] Other XR knee RT 2VAttending Dr: Sharla Strange [employer] Other XR knee RT 2VCopies to: Sharla Strange, [facility]PITALInternet [employer], [employer] Other XR knee RT 2VOrdering Provider: Sharla Strange [facility]PITALCatchFree Other XR knee RT 2VDate of Service: 08/08/22[facility] Other XR knee RT 2VAccession #: ([id number]) XR/XR wrist RT 2V: Injury of right wrist, initial encounterRico [facility] Other XR knee RT 2V([id number]) XR/XR knee RT 2V: Injury of right knee, initial encounterRico [facility] Other XR knee RT 2VCLINICAL DATA: Patient tripped and fell landing on right side yesterday. Injury at the right wristRico [facility] Other XR knee RT 2Vand knee.[employer] Other XR knee RT 2VRIGHT WRIST - 2 viewsRico [facility] Other XR knee RT 2VCOMPARISON: NoneRico [facility] Other XR knee RT 2VAP and lateral views were obtained. No fracture or dislocation is noted. No definite acute fractureNorth [facility] Other xr knee RT 2Vor dislocation is identified. There is minimal dorsal soft tissue swelling.[employer] Other xr knee RT 2VORDER #: [id number] XR/XR wrist RT 2VNort [facility] Other xr knee RT 2VIMPRESSION:[employer] Other XR knee RT 2VNO ACUTE BONY INJURY WITHIN LIMITS OF THE AVAILABLE VIEWS.[employer] Other XR knee RT 2VRIGHT KNEE - 2 viewsNosaint john's hospital [facility] Other xr knee RT 2VWeightbearing AP and lateral views were obtained. No acute fracture or dislocation is identified.[employer] Other XR knee RT 2VThere is moderate narrowing of the medial tibiofemoral joint compartment. There is tricompartmentNort [facility] Other xr knee RT 2Vmarginal spurring. There is an enthesophyte at the insertion of the quadriceps tendon. A small kneeNort [facility] Other xr knee RT 2Veffusion is seen. There is no focal soft tissue swelling.[employer] Other xr knee RT 2VDEGENERATIVE CHANGES.[employer] Other xr knee RT 2VNO ACUTE BONY INJURY.[employer] Other xr knee RT 2VImpression dictated by: Danette Granger M.D.08/08/2022 8:28 [facility] Other xr knee RT 2VDictation Location: [id number] [facility] Other xr knee RT 2VTranscribed By: ADAM 08/08/22 0828[facility] Other xr knee RT 2VDictated By: Danette Granger MD 08/08/22 0823[facility] Other xr knee RT 2VSigned By:[facility] Other xr knee RT 2V08/08/22 0828[facility] Other [id number]-16 PCR ([facility])on 71-01-2812LOUC-CoV-2 (COVID- 19) RNA TIFFANY+probe Ql (Unsp spec)DetectedCritically abnormalNOT DETECTEDThe Regency Hospital ToledoComment on above:Result Comment: This test is not yet approved or cleared by the [place] FDA. When there are no FDA-approved or cleared tests available, and other criteria are met, FDA can make tests available under an emergency access mechanism called an Emergency Use Authorization (EUA). The EUA for this test is supported by the [place] of Health and Human Service's declaration that circumstances exist to justify the emergency use of in vitro diagnostics for the detection and/or diagnosis of the virusthat causes COVID-19. This EUA will remain in effect for the duration of the COVID-19 declaration ju stifying emergency of IVDs, unless it is terminated or revoked by the FDA (after which the test mayno longer be used).Performed By: #### CVDTBH #### [facility] [address] [place] [address] Dr. Rodney BarakatAlbumin [Mass/volume] in Serum or PlasmaOrdered By: Renny Walton on 56-22-6077Tyocelf [Mass/Vol]4.0 g/dL3.2-5.5FWexner Medical Center Basophils Auto (Bld) [#/Vol]Ordered By: Renny Walton on 40-69-2551Vfyrvhxmt (Bld) [#/Vol]0.1 10*3/uL0.0-0.2FWexner Medical CenterBasophils/100 WBC Auto (Bld)Ordered By: Renny Walton on 97-17-2069Diqhrquom/100 WBC (Bld)1.0 %.[facility] HospitalBlood hemoglobin measurement (mass/volume)Ordered By: Renny Walton on 97-80-0413Uxtpiblkmp (Bld) [Mass/Vol]14.8 g/dL11.8-15.4FWexner Medical CenterBlood leukocytes automated count (number/volume)Ordered By: Renny Walton on 81-10-4408LMO (Bld) [#/Vol]6.5 10*3/uL4.5-11.0[facility] HospitalCholesterol [Mass/volume] in Serum or PlasmaOrdered By: Renny Walton on 17-01-5302Migywfielfd [Mass/Vol]189 mg/kB555-310JsmwmsnxqGalion HospitalComment on above:Chol less than 200 mg/dl low risk Chol 201-239 mg/dl borderline risk Chol 240 mg/dl and greater high riskCholesterol in LDL Calc [Mass/Vol]Ordered By: Renny Walton on 47-32-1299Mhzlxhojxsl in LDL [Mass/Vol]113 mg/dL0-100Gal[facility] HospitalComment on above:LDL ATP III CLASSIFICATION LDL less than 100 mg/dL Optimal LDL 100-129 mg/dL Near or above optimal LDL 130-159 mg/dL Borderline high LDL 160-189 mg/dL High LDL greater than 189 mg/dL Very highCholesterol in VLDL Calc [Mass/Vol]Ordered By: Renny Walton on 31-81-5982Ijmoymkgbtc in VLDL [Mass/Vol]27 mg/dLGalion HospitalCreatinine and Glomerular filtration rate.predicted panel (S/P/Bld)Ordered By: Renny Walton on 74-10-8323Jxlosmmpzu [Mass/Vol]0.63 mg/dL 0.44-1.03Gal[facility] HospitalEosinophils Auto (Bld) [#/Vol]Ordered By: Renny Walton on 84-99-9221Xnohlxknuws (Bld) [#/Vol]0.1 10*3/uL0.0-0.45 [facility] HospitalEosinophils/100 WBC Auto (Bld)Ordered By: Renny Walton on 48-68-8535Capdbeuxdde/100 WBC (Bld)1.2 %.[facility] HospitalErythrocyte distribution width Auto (RBC) [Ratio]Ordered By: Renny Walton on 24-75-1387Fnrvffdmgxm distribution width (RBC) [Ratio]13.9 %11.9-15.3FWexner Medical CenterEstimated glomerular filtration rate (GFR) non- AmericanOrdered By: Renny Walton on 29-68-5638KAL/1.73 sq M.predicted among non- blacks MDRD (S/P/Bld) [Vol rate/Area]> 60 mL/MinGalion HospitalGlobulin Calc (S) [Mass/Vol]Ordered By: Renny Walton on 93-86-4903Fmghknxx (S) [Mass/Vol]3.3 g/dLGalion HospitalGlucose mean value [Mass/volume] in Blood Estimated from glycated hemoglobinOrdered By: Renny Walton on 58-77-9061Kcemhcs glucose Estimated from glycated hemoglobin (Bld) [Mass/Vol] 120 mg/dLGalion HospitalHematocrit Auto (Bld) [Volume fraction]Ordered By: Renny Walton on 88-07-8392Nzmzwuggrs (Bld) [Volume fraction] 44.9 %34.0-46.4FWexner Medical CenterLaboratory - Chemistry and Chemistry - challengeOrdered By: Renny Walton on 74-79-0869Gccroai [Mass/Vol]111 mg/tC85-767MnvsnqzicGalion HospitalComment on above:ADA recommended reference rangeLaboratory - Hematology and Cell countsOrdered By: Renny Walton on 03-81-1332VgA1h (Bld) [Mass fraction]5.8 %4.3-5.6FWexner Medical CenterComment on above:Increased risk for diabetes: 5.7 - 6.4 diabetes: >6.4 glycemic control for adults with diabetes: <7.0Nucleated RBC/100 WBC (Bld) [Ratio]0.0 %0-0.5FWexner Medical CenterLymphocytes Auto (Bld) [#/Vol] Ordered By: Renny Walton on 20-44-7171Fozwkhjgbsl (Bld) [#/Vol]1.9 10*3/uL1.00-4.8 [facility] HospitalLymphocytes/100 WBC Auto (Bld)Ordered By: Renny Walton on 55-66-9142Abgtedloqnp/100 WBC (Bld)29.2 %.[facility] HospitalH Auto (RBC) [Entitic mass]Ordered By: Renny Walton on 13-97-1893BMW (RBC) [Entitic mass]30.0 pg24.7-34.3FWexner Medical CenterMCHC Auto (RBC) [Mass/Vol]Ordered By: Renny Walton on 60-13-1715ATCP (RBC) [Mass/Vol]33.0 g/dL 32.0-35.0Gal[facility] HospitalMCV Auto (RBC) [Entitic vol]Ordered By: Renny Walton on 84-12-4240XDT (RBC) [Entitic vol]90.8 jE31-343QrjnndrjdGalion HospitalMonocyte %Ordered By: Renny Walton on 84-92-3512Unlwxkbc % 139 mg/wO87-024TkawlzambGalion HospitalComment on above:TRIG ATP III CLASSIFICATION TRIG less than 150 mg/dL Normal TRIG 150-199 mg/dL Borderline high TRIG 200-500 mg/dL High TRIG greater than 500 mg/dL Very high Standard traceable to the Center for Disease Conrtrol and Prevention (CDC) test method.Monocytes Auto (Bld) [#/Vol]Ordered By: Renny Walton on 69-77-5923Lmzizgiea (Bld) [#/Vol]0.5 10*3/uL0.0-0.8Galion HospitalMonocytes/100 WBC Auto (Bld)Ordered By: Renny Walton on 75-16-3358Gtzbtxtlv/100 WBC (Bld)7.4 %. [facility] HospitalNeutrophils Auto (Bld) [#/Vol]Ordered By: Renny Walton on 54-92-0723Wqpofnnsflb (Bld) [#/Vol]4.0 10*3/uL1.8-7.7FWexner Medical CenterNeutrophils/100 WBC Auto (Bld)Ordered By: Renny Walton on 22-13-1425Nggkeorythv/100 WBC (Bld)61.2 %.Gal[facility] HospitalNo Panel InformationOrdered By: Renny Walton on 28-52-5739Dasfcpmdj GFR ()> 60 mL/MinGalion HospitalComment on above:GFR estimated reference range: According to KDOQI guidelines, <60 ml/min/1.73m2 is sufficient todiagnose a patient with chronic kidney disease.Nicotine Metabolite NegativeCutoff=25Galion HospitalComment on above:Performed at: - [facility] [id number] Housekeeping Assistant: Merary Mccartney MD, Phone: [phone] Creatinine Clearance (ChemN/AFWexner Medical CenterPlatelet mean volume Auto (Bld) [Entitic vol]Ordered By: Renny Walton on 89-59-6465Cyobrdbo mean volume (Bld) [Entitic vol]7.3 fL6.3-10.7FWexner Medical CenterPlatelets Auto (Bld) [#/Vol]Ordered By: Renny Walton on 81-72-0257Onvvgyswk (Bld) [#/Vol]286 10*3/uL 150-450Galion HospitalProtein [Mass/volume] in Serum or Plasma Ordered By: Renny Walton on 21-12-3217[place]em[place]us [Mass/Vol]7.3 g/dL6.1-7.9Galion HospitalRBC Auto (Bld) [#/Vol]Ordered By: Renny Walton on 33-63-4234SBW (Bld) [#/Vol]4.94 10*6/uL3.60-5.00[facility] Medical Centererum or plasma alanine aminotransferase measurement without P-5'-P (enzymatic activiOrdered By: Renny Walton on 02-92-8618ORF No additional P-5'-P [Catalytic activity/Vol]45 U/B15-66SykfqnqkjSumma Health Wadsworth - Rittman Medical Centererum or plasma albumin/globulin mass ratioOrdered By: Renny Walton on 12-16-2021 Albumin/Globulin [Mass ratio]1.2 {ratio}[facility] Medical Centererum or plasma alkaline phosphatase measurement (enzymatic activity/volume)Ordered By: Renny Walton on 55-93-1966ZQW [Catalytic activity/Vol]64 U/O20-71YotwiimxfSumma Health Wadsworth - Rittman Medical Centererum or plasma aspartate aminotransferase measurement (enzymatic activity/volume)Ordered By: Renny Walton on 49-34-3637DQH [Catalytic activity/Vol]25 U/H83-55WsyglcxcfSumma Health Wadsworth - Rittman Medical Centererum or plasma calcium measurement (mass/volume)Ordered By: Renny Walton on 81-88-2907Utslcxr [Mass/Vol] 9.5 mg/dL8.2-10.2FProMedica Defiance Regional Hospitalerum or plasma chloride measurement (moles/volume)Ordered By: Renny Walton on 31-25-9061Vvkoxjub [Moles/Vol]101 mmol/O00-602AwsszuynjSumma Health Wadsworth - Rittman Medical Centererum or plasma high density lipoprotein (HDL) cholesterol measurementOrdered By: Renny Walton on 80-45-0637Ohiiwqfqrwz in HDL [Mass/Vol]48 mg/tX89-78PgobjqlpsGalion HospitalComment on above:HDL CHOL ATP-III CLASSIFICATION Cardiovascular Risk HDL > or equal to 60 mg/dL LOW HDL < 40 mg/dL HIGHSerum or plasma potassium measurement (moles/volume)Ordered By: Renny Walton on 93-85-1631Zzyclcitl [Moles/Vol]4.1 mmol/L3.5-5.1FProMedica Defiance Regional Hospitalerum or plasma sodium measurement (moles/volume)Ordered By: Renny Walton on 33-89-2090Wlejkc [Moles/Vol]138 mmol/J940-660PfxsctvubSumma Health Wadsworth - Rittman Medical Centererum or plasma total bilirubin measurement (mass/volume) Ordered By: Renny Walton on 24-13-0142Lysimmwmv [Mass/Vol]0.6 mg/dL0.3-1.2 [facility] Centererum or plasma total carbon dioxide measurement (moles/volume)Ordered By: Renny Walton on 29-67-5490EF8 [Moles/Vol] 28.3 mmol/L22.0-30.0[facility] Medical Centererum or plasma total cholesterol/high density lipoprotein (HDL) cholesterol mass ratOrdered By: Renny Walton on 49-23-4310Egzjetsqlyt.total/Cholesterol in HDL [Mass ratio]3.9 {ratio} <5.0[facility] Medical Centererum or plasma urea nitrogen measurement (mass/volume)Ordered By: Renny Walton on 42-15-0146Idbz nitrogen [Mass/Vol]22 mg/dL9-23Galion HospitalTS DL <= 0.005 mIU/L QnOrdered By: Renny Walton on 41-53-5878XJN Qn2.52 m[IU]/L0.45-5.33Galion HospitalCOVID-19 SOFIAOrdered By: Renny Walton on 40-97-8302OZKJ-CoV+SARS-CoV-2 (COVID-19) Ag IA.rapid Ql (Resp)NegativeNegativeGalion HospitalComment on above:This is a duplicate Candelaria SARS Antigen (FERN) result to be used for statistical tracking purpose only.No Panel InformationOrdered By: Renny Walton on 17-06-0292JHKN Antigen (LFIA)Galion HospitalNo Panel Informationon 62-23-8304LudwcuCR-[place] [address] Work Phone: No Panel Informationon 82-94-9883RAVicki [place] [address] Work Phone: Office Visit (Cardiology)on 61-87-2787Wxvacl-up visit Diagnoses/Problems Assessed Chest pain (786.50) (R07.9) [...] Metabolic Panel; Status:Active - Retrospective Authorization; Requested for:[id number]; SocHx: Never a smoker Tobacco Use Screening; Status:Complete; Done: 22Oct2021 Patient Instructions By signing my name below, Jhon Regina Cary [employer], attest that this documentation has been prepared under the direction and in the presence of Dr. Anneliese Hoyt MD. All medical record entries made by the Merlinibe were at my direction and personally dictated by me. Vianca reviewed the chart and agree that the [...] chest pain. 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 Both evaluation was benign. I was able to retrieve and review her record. Patient reports he has history of hypertension that has been suboptimally controlled. She has been treated for diverticulitis recently. The patient report intermittent episodes of chest pain. She report radiation to the left arm was associated shortness of breath. Thereis no other precipitating, alleviated or associated symptoms. [...] myocardial infarction (V17.3) (Z8 (more content not included)...NormalUH TouchworksTobacco Screening.on 09-66-9669Kfdhn depression screening assessmentNo-[facility] [address] [place] Work Phone: Tobacco use status CPHSb) NoM-[facility] [place] [address] [place] Work Phone: Vital Signs Date TimeVital SignValuePerforming NoxzdlyyoIorwellc13-40-0383 10:36-0400 Diastolic blood aufglwnu36 mm[Hg]Rafael Salamanca MD Work Phone: [facility]09-30-2025 10:36-0400 Heart rate59 /Avery Salamanca MD Work Phone: 1(419)[address] [place], [place] 2090409-30-2025 10:36-0400 Respiratory rate16 /Avery Salamanca MD Work Phone: 1(419)[address] [place], [place] 2090409-30-2025 10:36-0400 SaO2% (BldA) [Mass fraction]99 %Rafael Salamanca MD Work Phone: 1(419)[address] [place], [place] 2090409-30-2025 10:36-0400 Systolic blood mm[Hg]Rafael Salamanca MD Work Phone: 1(419)[address] [place], [place] 2090409-30-2025 08:28-0400 Body njpjqa717.18 cmRafael Salamanca MD Work Phone: 1(419)[address] [place], [place] 2090409-30-2025 08:28-0400 Body rlowfh31.4 kgRafael Salamanca MD Work Phone: 1(419)[address] [place], [place] 2090408-25-2025 14:10-0400 Body ybcnjv168.18 cmRafael Salamanca MD Work Phone: 1(419)[address] [place], [place] 2090408-25-2025 14:10-0400 Body mass index (BMI) [Ratio]33.6 kg/h2YtddncmRafael Salamanca MD Work Phone: 1(419)[address] [place], [place] 2090408-25-2025 14:10-0400 Body bejuor25.52 kgRafael Salamanca MD Work Phone: 1(419)[address] [place], [place] 2090408-25-2025 14:10-0400 Diastolic blood aasdkrew64 mm[Hg]Rafael Salamanca MD Work Phone: 1(419)[address] [place], [place] 2090408-25-2025 14:10-0400 Heart rate78 /Avery Salamanca MD Work Phone: 1(419)[address] [place], [place] 2090408-25-2025 14:10-0400 Systolic blood ufyeqcaj648 mm[Hg]Rafael Salamanca MD Work Phone: 1(419)[address] [place], [place] 2090408-14-2025 08:16-0400 Body dikjiq261.18 cmRafael Salamanca MD Work Phone: [facility]08-14-2025 08:16-0400 Body mass index (BMI) [Ratio]33.6 kg/e8TafbmrvRafael Salamanca MD Work Phone: [facility]08-14-2025 08:16-0400 Body qwfcwe72.52 kgRafael Salamanca MD Work Phone: [facility]07-09-2025 16:21-0400 Body vmcpsi925.2 cmJoseph Montague DPM Work Phone: [facility] CenterWelzdoexnf21-84-4611 16:21-0400Body mass index (BMI) [Ratio]33.67 kg/e9VulsuzpbJoseph Montague DPM Work Phone: [facility] CenterSjqrymwhmq09-43-5047 16:21-0400Body obwdpy31.52 kgJoseph Montague DPM Work Phone: [facility] CenterPdftqbqzyh10-45-3812 16:21-0400Respiratory rate18 /Salomon Montague DPM Work Phone: [facility] CenterVndrhoafwy71-71-3862 08:11-0400Body vnjcsy700.18 cmGalion Hospital04-30-2025 08:11-0400Body mass index (BMI) [Ratio]33.7 kg/s5AxwnkhmfzGalion Hospital04-30-2025 08:11-0400Body .9 kgGalion Hospital04-30-2025 08:11-0400Diastolic blood ffcolupp12 mm[Hg][facility]04-30-2025 08:11-0400 Heart rate65 /[facility]04-30-2025 08:11-0400 Respiratory rate18 /[facility]04-30-2025 08:11-0400 SaO2% (BldA) [Mass fraction]97 %[facility]04-30-2025 08:11-0400Systolic blood laiqchje002 mm[Hg][facility] 06-12-2024 08:16-0500Body dqiwlw022.18 cmGal[facility] Hospital 06-12-2024 08:16-0500Body mass index (BMI) [Ratio]32.5 kg/r0CgmrrqspvGalion Hospital01-29-2025 08:16-0500Body gpusha17.46 kgGalion Hospital01-29-2025 08:16-0500Diastolic blood wyobkcvv59 mm[Hg][facility]01-29-2025 08:16-0500Heart rate76 /[facility]01-29-2025 08:16-0500Respiratory rate16 /[facility]01-29-2025 08:16-6712LuS4% (BldA) [Mass fraction]96 %[facility]01-29-2025 08:16-0500Systolic blood gtumrhat020 mm[Hg][facility]11-08-2024 08:52-0500Body sfafgr420.2 cmAnneliese Hoyt MD Work Phone: 5([phone])681-[address] [place], [place] 4885011-08-2024 08:52-0500 Body mass index (BMI) [Ratio]32.26 kg/m8HspkufeAnneliese Hoyt MD Work Phone: 9(054)[address]11-08-2024 08:52-0500 Body igzipc14.44 kgAnneliese Hoyt MD Work Phone: 8(300)[address]11-08-2024 08:52-0500 Diastolic blood izocjspk19 mm[Hg]Anneliese Hoyt MD Work Phone: 1(713)[address]11-08-2024 08:52-0500 Heart rate68 /Kunal Hoyt MD Work Phone: 8(205)[address]11-08-2024 08:52-0500 Systolic blood ctlhiake371 mm[Hg]Anneliese Hoyt MD Work Phone: 3(380)[address]10-02-2024 08:01-0400 Body tnpaiz874.18 [facility]10-02-2024 08:01-0400Body mass index (BMI) [Ratio]32 kg/m1LjskssymqGalion Hospital10-02-2024 08:01-0400Body cqjzvi16.73 kgGalion Hospital10-02-2024 08:01-0400Diastolic blood ojwvgnsr86 mm[Hg][facility] 02-14-2024 08:01-0400Heart rate78 /[facility] 02-14-2024 08:01-0400Respiratory rate18 /[facility] 02-14-2024 08:01-3024LwU1% (BldA) [Mass fraction]98 %[facility]10-02-2024 08:01-0400Systolic blood laxckcfn777 mm[Hg][facility]08-07-2024 12:22-0400Body cfkugz690.18 cmMD Rafael Hoy Work Phone: 1(452)[address] [place], [place] 2090408-07-2024 12:22-0400 Body mass index (BMI) [Ratio]32.3 kg/m2MD Rafael Hoy Work Phone: 1(409)[address] [place], [place] 2090408-07-2024 12:22-0400 Body uprllz26.55 kgMD Rafael Hoy Work Phone: 1(866)[address] [place], [place] 2090408-07-2024 12:22-0400 Diastolic blood wwcxebwn63 mm[Hg]MD Rafael Salamanca Work Phone: 1(019)[address] [place], [place] 2090408-07-2024 12:22-0400 Heart rate69 /minMD Rafael Hoy Work Phone: 1(059)[address] [place], [place] 2090408-07-2024 12:22-0400 Respiratory rate16 /minMD Rafael Hoy Work Phone: 1(074)[address] [place], [place] 2090408-07-2024 12:22-0400 SaO2% (BldA) [Mass fraction]95 %MD Rafael Salamanca Work Phone: 1(225)[address] [place], [place] 2090408-07-2024 12:22-0400 Systolic blood hidhbxtr810 mm[Hg]MD Rafael Salamanca Work Phone: [facility]06-14-2024 10:38-0400 Body pyqnru706.18 cmGalion Hospital06-14-2024 10:38-0400Body mass index (BMI) [Ratio]33.5 kg/x3LdqaaqhfcGalion Hospital06-14-2024 10:38-0400Body szaanx48.29 kgGalion Hospital06-14-2024 10:38-0400Diastolic blood txpqogtn26 mm[Hg][facility] 10-27-2023 10:38-0400Heart rate76 /[facility] 10-27-2023 10:38-0400Respiratory rate20 /[facility] 10-27-2023 10:38-1320OzT5% (BldA) [Mass fraction]96 %[facility]06-14-2024 10:38-0400Systolic blood bjwmysip321 mm[Hg][facility]04-24-2024 07:22-0400Body .18 cmGal[facility] Hospital04-24-2024 07:22-0400Body mass index (BMI) [Ratio]34.1 kg/m2 [facility]04-24-2024 07:22-0400Body ocjwzc05.93 kg [facility]04-24-2024 07:22-0400Diastolic blood mm[Hg][facility]04-24-2024 07:22-0400Heart rate72 /min [facility]04-24-2024 07:22-0400Respiratory rate16 /min [facility]04-24-2024 07:22-5272YlZ2% (BldA) [Mass fraction]98 %[facility]04-24-2024 07:22-0400Systolic blood ehvxlnhh744 mm[Hg][facility]02-28-2024 07:41-0500 Body fmvnha426.18 [facility]02-28-2024 07:41-0500Body mass index (BMI) [Ratio]33 kg/y1KdqiwtgffGalion Hospital02-28-2024 07:41-0500Body zgqmzy75.82 kgGalion Hospital02-28-2024 07:41-0500Diastolic blood zzwjbief27 mm[Hg][facility] 07-12-2023 07:41-0500Heart rate76 /minGalion Hospital 07-12-2023 07:41-0500Respiratory rate16 /[facility] 07-12-2023 07:41-3810AfU6% (BldA) [Mass fraction]97 %[facility]02-28-2024 07:41-0500Systolic blood eicmqfge403 mm[Hg][facility]01-17-2024 07:45-0500Body yifqyg610.18 cmHeather Missler Other [employer] Other 01-17-2024 07:45-0500Body mass index (BMI) [Ratio] 34.81 kg/t1Hrhdzxa Missler Other [employer] Other 01-17-2024 07:45-0500Body jobsqi976.84 kgHeather Missler Other [employer] Other 01-17-2024 07:45-0500Diastolic blood omvmsqwn52 mm[Hg] Isabel Missler Other [employer] Other 01-17-2024 07:45-0500Respiratory rate18 /minHeather Missler Other [employer] Other 01-17-2024 07:45-4008QzN3% (BldA) [Mass fraction]97 % Isabel Missler Other [employer] Other 01-17-2024 07:45-0500Systolic blood mm[Hg] Isabel Missler Other [employer] Other 12-08-2023 07:15-0500Body yzycbd521.18 cmHeather Missler Other [employer] Other 12-08-2023 07:15-0500Body mass index (BMI) [Ratio] 35.24 kg/g4Bjehbek Missler Other [employer] Other 12-08-2023 07:15-0500Body abgwho695.06 kgHeather Missler Other [employer] Other 12-08-2023 07:15-0500Diastolic blood gmrlslux89 mm[Hg] Isabel Missler Other [employer] Other 12-08-2023 07:15-0500Respiratory rate18 /minHeather Missler Other [employer] Other 12-08-2023 07:15-4118ZmD1% (BldA) [Mass fraction]95 % Isabel Missler Other [employer] Other 12-08-2023 07:15-0500Systolic blood pilepotj388 mm[Hg] Isabel Missler Other [employer] Other 11-10-2023 08:37-0500Body .2 cmAnneliese Hoyt MD Work Phone: [facility]11-10-2023 08:37-0500 Body mass index (BMI) [Ratio]34.93 kg/u7VidxgryAnneliese Hoyt MD Work Phone: [facility]11-10-2023 08:37-0500 Body .15 kgAnneliese Hoyt MD Work Phone: [facility]11-10-2023 08:37-0500 Diastolic blood kfkauyno65 mm[Hg]Anneliese Hoyt MD Work Phone: [facility]11-10-2023 08:37-0500 Heart rate64 /minAnneliese Hoyt MD Work Phone: [facility]11-10-2023 08:37-0500 Systolic blood rppcxhva773 mm[Hg]Anneliese Hoyt MD Work Phone: [facility]11-02-2023 08:00-0400 Body hphuko448.18 cmDawn Fitt Other [employer] Other 11-02-2023 08:00-0400Body mass index (BMI) [Ratio] 34.83 kg/m2Dawn Fitt Other [employer] Other 11-02-2023 08:00-0400Body nnygcs194.88 kgDawn Fitt Other [employer] Other 10-27-2023 07:45-0400Body fitabr684.18 cmHeather ler Other [employer] Other 10-27-2023 07:45-0400Body mass index (BMI) [Ratio] 35.13 kg/v5Qxbjctr Missler Other [employer] Other 10-27-2023 07:45-0400Body tfuqts830.74 kgHeather Missler Other [employer] Other 10-27-2023 07:45-0400Diastolic blood mm[Hg] Isabel Missler Other [employer] Other 10-27-2023 07:45-0400Respiratory rate18 /minHeather Missler Other [employer] Other 10-27-2023 07:45-1928YaC0% (BldA) [Mass fraction]97 % Isabel Missler Other [employer] Other 10-27-2023 07:45-0400Systolic blood owqoypiq375 mm[Hg] Isabel Missler Other [employer] Other 09-15-2023 08:15-0400Body .18 cmHeather Missler Other [employer] Other 09-15-2023 08:15-0400Body mass index (BMI) [Ratio]34.8 kg/j2Jlioaml Missler Other [employer] Other 09-15-2023 08:15-0400Body dxdevm251.79 kgHeather Missler Other [employer] Other 09-15-2023 08:15-0400Diastolic blood gkassphy23 mm[Hg] Isabel Missler Other [employer] Other 09-15-2023 08:15-0400Respiratory rate18 /minHeather Missler Other [employer] Other 09-15-2023 08:15-0862BsG4% (BldA) [Mass fraction]99 % Isabel Missler Other [employer] [facility] Other 09-15-2023 08:15-0400Systolic blood zgkabxhp415 mm[Hg] Isabelher Calller Other [employer] [facility] Other 08-23-2023 16:55-0400Body texyldcfecf16.3 [degF]MD Rafael Salamanca Work Phone: 1(691)[address]08-23-2023 16:55-0400 Diastolic blood rdpdvwre20 mm[Hg]MD Rafael Salamanca Work Phone: 1(818)[address] [place], [place] 2090408-23-2023 16:55-0400 Heart rate61 /minMD Rafael Salamanca Work Phone: 1(344)[address] [place], [place] 2090408-23-2023 16:55-0400 Respiratory rate18 /minMD Rafael Salamanca Work Phone: 1(231)[address] [place], [place] 2090408-23-2023 16:55-0400 SaO2% (BldA) [Mass fraction]97 %MD Rafael Salamanca Work Phone: 1(653)[address] [place], [place] 2090408-23-2023 16:55-0400 Systolic blood tahmjxaq558 mm[Hg]MD Rafael Salamanca Work Phone: 1(227)[address] [place], [place] 2090408-23-2023 05:53-0400 Body pculkq076.3 kgMD Rafael Salamanca Work Phone: 1(458)[address] [place], [place] 2090408-22-2023 17:09-0400 Body gsgotv885.18 cmMD Rafael Salamanca Work Phone: 1(464)[address] [place], [place] 2090408-22-2023 16:05-0400 Body glkqhjmloew46.8 [degF]MD Rafael Salamanca Work Phone: 1(202)[address] [place], [place] 2090408-22-2023 16:05-0400 Diastolic blood ublmbocr01 mm[Hg]MD Rafael Salamanca Work Phone: 1(511)[address] [place], [place] 2090408-22-2023 16:05-0400 Heart rate76 /minMD Rafael Salamanca Work Phone: 1(868)242-[address] [place], [place] 6055208-22-2023 16:05-0400 Respiratory rate20 /minMD Rafael Salamanca Work Phone: 1(669)765-[address] [place], [place] 6055208-22-2023 16:05-0400 SaO2% (BldA) [Mass fraction]98 %MD Rafael Salamanca Work Phone: 1(280)659-[address] [place], [place] 6055208-22-2023 16:05-0400 Systolic blood mm[Hg]MD Rafael Salamanca Work Phone: 1(959)[address]08-22-2023 10:17-0400 Body qphjau645.18 cmMD Rafael Salamanca Work Phone: 1(433)[address]08-22-2023 10:17-0400 Body .9 kgMD Rafael Salamanca Work Phone: 1(559)905-[address] [place], [place] 6055208-04-2023 09:15-0400 Body hyvjot591.18 cmHeather ler Other [employer] Other 08-04-2023 09:15-0400Body mass index (BMI) [Ratio] 36.38 kg/j9Qpgroip Missler Other [employer] Other 08-04-2023 09:15-0400Body .37 kgHeather Missler Other [employer] Other 08-04-2023 09:15-0400Diastolic blood wxgyxfsj02 mm[Hg] Isabelher Kent Other [employer] Other 08-04-2023 09:15-0400Respiratory rate18 /minHeather Missler Other [employer] Other 08-04-2023 09:15-9603TeW4% (BldA) [Mass fraction]98 % Isabel Kent Other [facility] Other 08-04-2023 09:15-0400Systolic blood uvmihuvo699 mm[Hg] Isabel Kent Other [facility] Other 06-10-2022 08:38-0400Body .18 cmDouglas Tonya Hoy Work Phone: 1(522)[phone]-Alyoj [facility] [address] [place] Work Phone: 1(447) 565-969806-10-2022 08:38-0400Body mass index (BMI) [Ratio] 36.81 kg/d6Mplfcyt Tonya Hoy Work Phone: 1(096)[phone]-Yvncz [facility] [address] [place] Work Phone: 1(155)[phone] 08:38-0400Body surface area Derived from formula2.17 k3Exlywrr Tonya Hoy Work Phone: 1(021)[phone]-Cqujq [facility] [address] [place] Work Phone: 1(908)462-288-264487-52 08:38-0400Body oqfqnt896.6 kgDouglas M Hoy Work Phone: 1(422)[phone]-Bbbdn [facility] [address] [place] Work Phone: 1(247)[phone] 08:38-0400Diastolic blood htadyiip81 mm[Hg] Rafael M Hoy Work Phone: 1(502)[phone]-Orlnz [facility] [address] [place] Work Phone: 1(953)872-394-627047-26636600-76-0196 08:38-0400Diastolic blood lduhesgw07 mm[Hg] Rafael M Hoy Work Phone: 1(427)[phone]-Ndxzi [facility] [address] [place] Work Phone: 1(234)[phone] 08:38-0400Heart rate63 /minDouglas M Hoy Work Phone: 1(973)[phone]-Xcvnu [facility] [address] [place] Work Phone: 1(868) 595-267906-10-2022 08:38-0400Systolic blood nhhnxocw300 mm[Hg] Rafael Salamanca Work Phone: 1(674)[phone]-Kuwzi [facility] [address] [place] Work Phone: 1(378) 655-491506-10-2022 08:38-0400Systolic blood uuabosqp713 mm[Hg] Rafael Salamanca Work Phone: 1(225)[phone]-Tmrwp [facility] [address] [place] Work Phone: 1(981) 411-352105-25-2022 00:00-545279 1Douglkathleen Salamanca Work Phone: 1(546)[phone]-Iwfgg [facility] [address] [place] Work Phone: Comment on above:[id number] Encounters Encounter DateEncounter TypeCare ProviderFacilityStart: 02-11-2025 End: 42-98-1600vishhglptpGkcqsauzs L LyFacility:[facility]art: 71-56-8562Rqo-patient / Non-visitCatherine L Ly DO-[facility] Work Phone: Start: 02-10-2025 End: 03-28-7296mxxswideqtIuhjzvm M Hoy MD Work Phone: [facility] Work Phone: Start: 02-10-2025 End: 73-35-6307Qrrrzyp encounter procedureJacquedaniel Ruiz [facility] Work Phone: Start: 01-06-2025 End: 26-42-6111lccryftqhwEsvzczy M Hoy MD Work Phone: [facility] Work Phone: Start: 01-06-2025 End: 14-07-0985Josqldn encounter procedureCatherine L Ly DO-[facility] Work Phone: Start: 12-26-2024 End: 31-15-5844feenvpzsdvZqlkjbo M Hoy MD Work Phone: [facility] Work Phone: Start: 12-26-2024 End: 74-52-1329Elwsltv encounter procedureRobert Marcelino Castaneda MD-[facility] Work Phone: Start: 12-24-2024 End: 50-83-7053Cqsbvnp encounter procedureRafael Castaneda MD-Lab [facility] Work Phone: Start: 12-24-2024 End: 31-92-1449qoxkgpcezwLudmcij M Hoy MD Work Phone: [facility] Work Phone: Start: 12-20-2024 End: 69-63-0892Spizdaj encounter procedureRafael Castaneda MD-Lab [facility] Work Phone: Start: 12-20-2024 End: 45-96-2478Lbugrcrg ReferredRenny Finch [facility]Start[facility] 12-20-2024 End: 55-31-8841fmmqyshilgUudgrvx M Hoy MD Work Phone: [facility] Work Phone: Start: 12-03-2024 End: 77-01-7005Unyksii encounter procedureRafael Castaneda MD-Lab [facility] Work Phone: Start: 12-03-2024 End: 47-73-4888cxyswfbqtyZsxuduz M Hoy MD Work Phone: [facility] Work Phone: Start: 12-03-2024 End: 63-98-3128nnhjnzktecJtjedwl R NILLFacility:[facility] Hospitaltart: 12-03-2024 End: 22-27-5090Vpvpsfw encounter procedureMichael R NILL [phone]-[facility]qcuzMart[facility] [place] Start: 00-79-9078cdmabiwexjJikcqaz NILLFacility: NorwalkStart: 24-19-0201wwvlstbwjtGqixwqf NILLFacility: [place]vueStart: 11-23-2024 End: 79-23-4855Fjcvbdz encounter procedureRafael Castaneda MD-[facility] [place] Work Phone: Start: 11-23-2024 End: 22-14-6118abkzbvmmeuSjtjegd M Hoy MD Work Phone: [facility] Work Phone: Start: 11-21-2024 End: 09-55-5337Mnoqkct encounter procedureRafael Castaneda MD-[facility]: 11-21-2024 End: 12-26-6262eaxypqqwqyTzwuqpv M Hoy MD Work Phone: [facility] Work Phone: Start: 11-20-2024 End: 02-19-3895Eyyegz outpatient visit 15 minutesNickey Montague DPM Work Phone: [facility] [place] PODComment on above:Capsulitis of metatarsophalangeal (MTP) joint of left foot (Primary Dx); Bone spur of left foot; DJD (degenerative joint disease), ankle and foot, leftStart: 11-20-2024 End: 77-97-1605huaayyscmlZQEEXUTH A BROWNNot AvailableStart: 11-20-2024 End: 54-01-7139Wpkhlr flowsheetNickey Estrada Brown DPM Work Phone: [facility] [place] PODStart: 11-20-2024 End: 01-40-1828Hwqxmt flowsheetNickey Estrada Brown DPM Work Phone: [facility] [place] PODStart: 11-06-2024 End: 31-64-4051Mdktxf outpatient new 30 minutesJoseph Montague DPM Work Phone: [facility] [place] PODComment on above:DJD (degenerative joint disease), ankle and foot, left (Primary Dx); Bone spur of left foot; Capsulitis of metatarsophalangeal (MTP) joint of left footStart: 11-06-2024 End: 66-03-9178isqhnekpkhCUKNMGNZ A BROWNNot AvailableStart: 11-06-2024 End: 98-50-3292Wmqltb flowsheetJoseph Montague DPM Work Phone: [facility] [place] PODStart: 11-06-2024 End: 04-51-3235Vtobce Frannie Montague DPM Work Phone: [facility] [place] PODStart: 10-16-2024 End: 06-94-2361Xqkwacx encounter procedureRafael Salamanca MD Work Phone: [facility] [place] Work Phone: Start: 10-16-2024 End: 92-56-7550tbmirbvtzlRmdhhnd M Hoy MD Work Phone: [facility] Work Phone: Start: 09-27-2024 End: 66-96-9990Vuxcedc encounter procedureRafael Salamanca MD Work Phone: [facility] Main [place] Work Phone: Start: 09-27-2024 End: 92-76-6639zkqgpvlnxxXuixcfj M HoyFacility:[facility] Start: 09-11-2024 End: 38-41-1656hycrmxrzosWesvbrlsxTriHealth [facility]ar[facility] Work Phone: Start: 09-11-2024 End: 25-06-6860Afmvgsl encounter procedureNovant Health Pres[facility] Physician GroupJ[facility] Work Phone: Start: 06-12-2024 End: 60-45-7727qtohpymwvzLfbhvtimsTriHealth Good Samaritan Hospital Work Phone: Start: 06-12-2024 End: 29-64-1793Igycvhq encounter procedureNovant Health Presbyterian Medical Center Physician Group-[facility] Work Phone: Start: 03-22-2024 End: 28-79-2179Cnilac outpatient visit 15 minutesAnneliese Hoyt MD Work Phone: uh [facility] on above:Precordial pain (Primary Dx); Essential hypertension, benign; Diverticulosis; BMI 32.0-32.9,adult; Never smoked tobaccoStart: 03-22-2024 End: 82-42-7164lvthmtacxwPGCOMQXClinch Memorial HospitalStart: 02-14-2024 End: 47-70-7443kodqpoqfzkUrzemtggiTriHealth Good Samaritan Hospital Work Phone: Start: 02-14-2024 End: 59-98-0640Ergrqgw encounter procedureNov[facility] Physician [facility] Work Phone: Start: 01-19-2024 End: 45-17-0013Jll-patient / Non-visitNovant Health Presbyterian Medical Center Physician [facility] Work Phone: Start: 12-20-2023 End: 42-97-5222dvdekxlozxWC Rafael M Hoy Work Phone: [facility] Work Phone: Start: 12-20-2023 End: 87-00-6432Gopasex encounter procedureMD Rafael Hoy Work Phone: [facility] Physician [facility] Work Phone: Start: 11-13-2023 End: 29-91-4212byznnoyqpdWD Rafael M Hoy Work Phone: [facility] Work Phone: Start: 11-13-2023 End: 63-25-7611Kxdhdtqd ReferredMD Rafael Hoy Work Phone: [facility] CtrHorsham ClinicStart: 10-27-2023 End: 05-78-9028klmdinhhsjPrlkfytkfToledo Hospital Work Phone: Start: 10-27-2023 End: 16-48-2164Sjeqyoj encounter procedureNovant Health Presbyterian Medical Center Physician GroupJFK [facility] Work Phone: Start: 09-06-2023 End: 39-93-3649kvkuwbdkiqLqljeiguzTriHealth Good Samaritan Hospital Work Phone: Start: 09-06-2023 End: 85-97-0928Qxcqoeg encounter procedureNovant Health Presbyterian [facility] Center Physician GroupJFK [facility] Work Phone: Start: 07-12-2023 End: 33-31-3563Bsgvcrz encounter procedureNovant Health Presbyterian Medical Center Physician GroupJFK [facility] Work Phone: Start: 05-31-2023(wmnempf/u) [employer] Employee F/Scooter KentEcu Health Ro[facility]-Chow[facility] Hospitalemmett Coordinated Care ClinicStart: 05-31-2023 End: 63-57-3111iqlhlwjbyqYohqjnx Donte Other [employer] Other Start: 04-21-2023(wmnempf/u) [employer] Employee F/Scooter KentEcu [facility]Chow[facility] Hospitalemmett Coordinated Care ClinicStart: 04-21-2023 End: 62-86-2428svlqdmkzciVnjttkm Donte Other [employer] Other Start: 03-24-2023 End: 23-86-8746Wsilay outpatient visit 15 minutesAnneliese Hoyt MD Work Phone: [facility]Com[facility] on above:Precordial pain (Primary Dx); Essential hypertension, benign; BMI 34.0-34.9,adult; Encounter to discuss test resultsStart: 03-16-2023([facility] [employer]) KIMBERLEY Initial ProviderDawgonzalez Quiroz Coordinated Care ClinicStart: 03-16-2023 End: 30-21-0090tginynjyghEuwo Fitt Other [employer] Other Start: 03-14-2023 End: 86-06-4888brexmqihxdTAYMTJQCincinnati Shriners Hospitaltart: 03-10-2023(wmnempf/u) [employer] Employee F/Scooter Sifuentes Coordinated Care ClinicStart: 03-10-2023 End: 36-17-7181vswvikecayNqjzkya Missler Other [employer] Other Start: 02-14-2023 End: 78-04-8327pmcgsrpsdzBAYOAUVCincinnati Shriners Hospitaltart: 01-27-2023(wmnempf/u) [employer] Employee F/Scooter [facility] Coordinated Care ClinicStart: 01-27-2023 End: 74-75-3770vueemmabyyCdhjubk Missler Other [facility] Other Start: 92-74-2554Waovmbiaa encounterDodemetria Salamanca Work Phone: [phone]-Vosoo[address] [place] [address] Heart[facility] [address] DO Work Phone: Start: 01-09-2023 End: 17-31-4412kxtscnaltxOzsyzwj Missler Other [facility] Labsaint [facility]ohn[facility] Other Start: 02-67-2389Kqzaxoutr encounterHeanenita CallPortneuf Medical Center Coordinated Care ClinicStart: 09-47-2650eevvqdnwtzZsBelem SalamancaFacility:9090Start: 01-03-2023 End: 50-54-9025Jhsstpxthe and management of inpatientMD Rafael Reedangelito Work Phone: [facility] Work Phone: Start: 01-03-2023 End: 84-72-7691ckyjdnznsmc encounterMD Rafael Salamanca Work Phone: [facility] Work Phone: Start: 12-16-2022(WMNEMPNEW) [employer] Mew EmployeeHeaKaiser Permanente Medical Center Coordinated Care ClinicStart: 12-16-2022 End: 27-49-9412hpsajkdcwnYcoijpi Donte Other [facility]aint [facility] Other Start: 05-74-1908Ozvohrihfx RecurringMD Rafael Hoy Work Phone: [facility]-Weight Management Work Phone: Start: 11-08-2022 End: 05-60-9534jtogljayihCC Rafael M Hoy Work Phone: [facility] Work Phone: Start: 11-08-2022 End: 76-45-8941Kvfitfnc ReferredMD Rafael Hoy Work Phone: [facility]-Employee Benefit ScreeningStart: 08-23-2022 End: 39-32-9132vfqnbtnrfvNphpzgwy [place] Other [place] [facility] Other Start: 23-44-7524Pprork outpatient visit 15 minutes Sharla Tillman OrthopedicsStart: 08-16-2022 End: 25-17-4072vmjxsrzxafGL Rafael M Hoy Work Phone: [facility] Work Phone: Start: 08-16-2022 End: 34-74-7466Laamgbd encounter procedureMD Rafael Hoy Work Phone: [facility]-Lab Main [place] Work Phone: Start: 08-15-2022 End: 43-65-6048uyuzcpeaaaXE RAFAEL HOY .Facility:L4Wnowm: 42-76-9267Foigpi outpatient new 30 minutesSharla Tillman OrthopedicsStart: 08-08-2022 End: 54-49-0720aablvhxjpsYM Rafael M Hoy Work Phone: [facility] Work Phone: Start: 08-08-2022 End: 57-80-7220Lbaocry encounter procedureMD Rafael Hoangelito Work Phone: [facility] Start: 21-88-0769Neixs Gato Castaneda Cheikh Work Phone: [phone]-Akpjw [place] [facility] [address] DO Work Phone: Start: 04-13-2022 End: 41-13-7012twkrjjwmaoIR RAFAEL SALAMANCA .Facility:O2Nvgrj: 12-16-2021 End: 51-88-0230Ouezgqoc ReferredMD Rafael Salamanca Work Phone: [facility]-Employee Benefit ScreeningStart: 12-09-2021 End: 95-64-7702Moqrltk encounter procedureMD Rafael Hoangelito Work Phone: [facility]-[place] SwabStart: 42-50-1069Odvjv Gato Castaneda Cheikh Work Phone: [phone]-Dxjzf [place] [facility] [address] [place] Work Phone: Start: 10-27-2021 End: 93-64-9776Jgumdue encounter procedureMD Rafael Salamanca Work Phone: [facility]-Electrodiagnostics Start: 05-04-2021([facility] C Vac) [facility] Covid VaccineGreil [facility] Coordinated Care ClinicStart: 05-04-2021 End: 28-70-6447nwmzarsgheNfno Fitt Other [facility] Other Procedures DateProcedureProcedure DetailPerforming ClinicianStart: 40-65-7314Avdcr radiography of pelvisDodemetria Salamanca MD Work Phone: Start: 61-82-2724N-ray of right knee, four views Rafael Salamanca MD Work Phone: Start: 63-11-3855Kixgy Sho Salamanca MD Work Phone: Start: 10-97-6339Haqfg Sho Salamanca MD Work Phone: [phone]: 50-10-4217Iymim Sho Salamanca MD Work Phone: Start: 81-12-8320Zsgiqcguuynknvk of abdomenRafael Salamanca MD Work Phone: Start: 79-10-3786OW ankle without contrastRafael Salamanca MD Work Phone: [phone]: 99-38-7217NN of left footRafael Salamanca MD Work Phone: [phone]: 20-66-6430G-ray of left footRafael Salamanca MD Work Phone: Start: 49-72-3092EG ANGIO CORONARY ART WITH HEARTFLOW IF SCORE >30%MOAMAUIR INMANIStart: 59-79-8002XP CARDIAC SCORING WO IV CONTRASTMOURCHIP INMANIStart: 83-30-0772Mszfcsrl tomography angiography of abdominal and/or pelvic blood vesselMD Rafael Hoy Work Phone: Start: 60-22-5878YX of chestMD Rafael Hoy Work Phone: [phone]-: 41-21-2014Lwxeb X-ray of right wristMD Rafael Hoy Work Phone: Start: 62-72-5025T-ray of right kneeMD Rafael Hoy Work Phone: [phone]-: 21-94-9898Lccizziydgtv myocardial perfusion stress studyMD Rafael Hoy Work Phone: Start: 24-18-4442EhwtvweypgfPphqhfc Traboulssi MD Work Phone: Start: 97-22-1543NeybvoryauoOhfdysl NILL Start: 76-10-0023HgormjsalhqlfhsgwrlnrwzoldYyxdkga NILL Start: 93-37-1603pdxm knee arthroscopyMichael NILL Arthroscopy of kneeMichael NILL Comment on above:rightx 2ColonoscopyDouglas M Hoy Work Phone: Excision of neoplasmDougporfirio Castaneda Hoangelito Work Phone: Comment on above:off collar bone;Operative procedure on kneeDouglas M Hoy Work Phone: Reduction mammoplastyDouglas M Hoy Work Phone: Reduction mammoplastyMichael NILL SARS Antigen (LFIA)MD Hall Cheikh Work Phone: 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 collar boneMichael NILL Plan of Treatment DateCare ActivityDetailAuthorStart: 29-20-1604DSV High Risk: (Elderly (60+) or Population) (1 - 1-dose 75+ series)RSV High Risk: (Elderly (60+) or Population) (1 - 1-dose 75+ series)[facility] Start: 65-51-4444GawbrbrlqSumma Health Wadsworth - Rittman Medical Centertart: 78-35-1507Lfwqwvgcf vaccinationInfluenza Vaccine (#1)[facility] HealthcareStart: 98-77-1792Dbggl radiography of pelvisXR pelvis 1-2VSumma Health Wadsworth - Rittman Medical Centertart: 54-28-8263E-ray of right knee, four viewsXR knee RT 4V*[facility] Medical Centertart: 08-11-7816OF Knee - right 4 ViewsSumma Health Wadsworth - Rittman Medical Centertart: 50-52-9768UL Pelvis 1 or 2 ViewsGalion Hospital Start: 12-24-2024 End: 93-52-7001Xftrz cultureSumma Health Wadsworth - Rittman Medical Centertart: 12-24-2024 Bacteria identified in Urine by CultureUrine CultureSumma Health Wadsworth - Rittman Medical Centertart: 54-81-7180Btoddvyb identified in Urine by CultureUrine Culture [facility] Medical Centertart: 14-86-6519Zxqtu cultureSumma Health Wadsworth - Rittman Medical Centertart: 79-96-2991Qylgjenh identified in Urine by Culture Urine CultureSumma Health Wadsworth - Rittman Medical Centertart: 10-61-5418Uexpn culture [facility] Medical Centertart: 11-20-2024 End: 01-01-1949Tsdcslw encounter procedureNOMS [place] PODComment on above:Capsulitis of metatarsophalangeal (MTP) joint of left foot (Primary Dx); Bone spur of left foot; DJD (degenerative joint disease), ankle and foot, leftStart: 11-06-2024 End: 00-56-5662Ikcktgj encounter gafiqctvh18/25/2025 3:50 PM EDT Office Visit [facility] [address] [place] [address] Joseph Montague DPM [address] [address] ArrivedNOMS [place] PODComment on above:ArrivedStart: 01-14-2024 COVID-19 Vaccine ( season)COVID-19 Vaccine ( season) [facility] HospitalStart: 20-74-7111LJU, Provider: Anneliese Hoyt, Status: Pen, Time: 1:20 PMFUV, Provider: Anneliese Hoyt, Status: Pen, Time: 1:20 PMPark [facility] [address] DO Work Phone: Start: 99-82-3977KmnxxfqgqGalion Hospital Start: 74-31-8807Vobolzjo to cardiologistSumma Health Wadsworth - Rittman Medical Centertart: 25-43-7532Gaezoryn admissionSumma Health Wadsworth - Rittman Medical Centertart: 11-08-2022 [facility] Centertart: 88-89-0981OtpcmraeaSumma Health Wadsworth - Rittman Medical Centertart: 62-92-9121DIG, Provider: Anneliese Hoyt, Status: Pen, Time: 9:20 AMFUV, Provider: Anneliese Hoyt, Status: Pen, Time: 9:20 AMMP-[facility] [address] [place] Work Phone: Start: 12-16-2021 End: 26-66-6004Tkipaejp ReferredDeparted ReferredCleveland Clinic [facility]- Employee Benefit ScreeningStart: 31-32-2497Deczwjsdq for malignant neoplasm of breastMammogramUnMercy Health Kings Mills Hospital: 09-15-3382GZXEDTHB, Provider: KATHIA BEARDEN TWILL CUTTER 1,[id number], Status: Pen, Time: 1:00 PM NURSEVST, Provider: KATHIA BEARDEN TWILL CUTTER 1,[id number], Status: Pen, Time: 1:00 PM-[facility] [address] [place] Work Phone: Start: 61-98-7568FOHEC-19 Vaccine (4 - Moderna series) COVID-19 Vaccine (4 - Moderna series)[facility]: 34-45-1795Uazvff Vaccines (1 of 2)Zoster Vaccines (1 of 2)[facility]: 62-49-5326SOE Vaccines (1 of 1 - Standard series)MMR Vaccines (1 of 1 - Standard series)[facility]: 1990 Screening for malignant neoplasm of cervixNOMS HealthcareStart: 1984 DTaP/Tdap/Td Vaccines (1 - Tdap)DTaP/Tdap/Td Vaccines (1 - Tdap)[facility]: 94-22-1718Npvktwimo for malignant neoplasm of cervixUnMercy Health [facility] Mills Hospital: 93-06-5219Tepxpqriw C screening Hepatitis C ScreeningOhioHealth Mansfield Hospital: 98-63-9733GGJ screeningHIV ScreeningOhioHealth Mansfield Hospital: 04-00-9113Xdphj panelLipid PanelUnMercy Health Kings Mills Hospital: 16-07-6604Cqebhqqzl for malignant neoplasm of colonUnMercy Health Kings [facility] Hospital: 1960 Yearly Adult PhysicalYearly Adult PhysicalUnOhioHealth Riverside Methodist Hospital Glucose measurement estimated from glycated hemoglobinGalion HospitalHemoglobin A1c measurementGalion HospitalPatient EducationStomach polyps High-fiber diet Gastritis - Discharge instructions Hiatal hernia - Discharge instructions [facility] Diverticulosis Discharge Instructions [facility] Hemorrhoids Discharge Instructions Know your Meds [facility] Work Phone: Patient referralCleveland Clinic Medina [facility] Work Phone: Thyrotropin [Units/volume] in Serum or PlasmaGalion HospitalThyroxine (T4) free index in Serum or Plasma by calculationGalion HospitalThyroxine measurementGalion HospitalTriiodothyronine (T3) [Mass/volume] in Serum or Plasma [facility] HospitalTriiodothyronine resin uptake (T3RU) in Serum or PlasmaGalion Hospital Immunizations Immunization DateImmunizationNotesCare DuxscifzDsdvdggm64-59-7933sueblhzkr, seasonal, injectable, preservative Farhad Salamanca MD Work Phone: [facility]10-14-2024influenza virus vaccine, unspecified formulationJoseph Montague DPM Work Phone: [phone]-XcppbMartins Ferry Hospital General Surgery [place] 84-25-9540hiefwuval, injectable, quadrivalent, preservative freeAnneliese Hoyt MD Work Phone: [facility] Work Phone: [phone]-31 Tomás Ayon Other [facility]02-02-2021Moderna COVID-19 Vaccine 100 MCG/0.5ML Intramuscular SuspensionRafael Salamanca Work Phone: [facility]01-05-2021Moderna COVID-19 Vaccine 100 MCG/0.5ML Intramuscular Suspensionuglas Tonya Salamanca Work Phone: [facility]09-01-2020influenza, injectable, quadrivalent, preservative Farhad Salamanca Work Phone: [phone]-EyjzwGlacial Ridge [facility]-[place] [address] [place] Work Phone: [phone] lcqvqkqzh-R7V2-97, preservative-free, injectableRafael Salamanca Work Phone: [phone]-Tmqlu [place] [facility] [address] [place] Work Phone: Payers DatePayer CategoryPayerPolicy [id number] Health Insurance [id number] Care (Private) [facility] [id number] [id number] [id number] 2.840.1.582248.3.57[id number] 2.16.840.1.241606.3.57[id number] 2.16.840.1.072271.3.57[id number] 2.16.840.1.744920.3.57[id number] 2.16.840.1.950874.3.57[id number] 2.16.840.1.134721.3.57[id number] 2.16.840.1.229503.3.57[id number] 2.16.840.1.343580.19 Self-paySelf [id number]'s Compensation [facility] [id number] Social History DateTypeDetailFacilityStart: 03-24-2023 End: 28-75-9032Evyntnlp alcohol occasionallyConsumes alcohol occasionallyNorth [facility] Other Start: 03-24-2023 End: 47-39-9335Xjm [facility]igned At [facility]: 09-30-2021 End: 29-84-8640Ehzwzmp smoking status NHISNever smoked tobacco (finding) [facility] Medical Centertart: 90-96-5450Woy Assigned At [facility]tart: 03-24-2023 End: 95-90-4931Xjwhcjp use and exposureSmokeless tobacco non-userUnOhioHealth Riverside Methodist Hospital Work Phone: Start: 03-24-2023 End: 19-39-2562Qbakavi intakeLifetime non-drinker (finding)[facility] Work Phone: Start: 32-86-9812Utf Assigned At BirthNot on file [facility] Work Phone: Start: 03-14-2023 End: 22-56-4661Khdmlbdu to SARS-CoV-2 (event)Not sureUnOhioHealth Riverside Methodist HospitalStart: 08-26-2009 End: 20-44-1500QmdKvkazp (finding)[facility] HospitalTobacco smoking status NHISTobacco smoking consumption unknownNOMS HealthcareStart: 11-06-2024 End: 15-19-9452Wcldzjpgt beverage intakeCurrent drinker of alcohol (finding)[facility] HealthcareTobacco smoking statusNeAshtabula County Medical Center General [facility] [place] [facility] Procedure CodeEquipment CodeEquipment Original TextEquipment IdentifierDates [id number]: 02-24-2020 End: 58-37-0882Qef Needle, Diabetic (Ulticare Pen Needle) 31 gauge x 3/16 needleStart: 52-77-3456Jfo Needle, Diabetic (Ulticare Pen Needle) 31 gauge x 3/16 needleStart: 93-36-1207Dfx Needle, Diabetic (Ulticare Pen Needle) 31 gauge x 3/16 needleStart: 91-35-8457Kif Needle, Diabetic (Ulticare Pen Needle) 31 gauge x 3/16 needleStart: 86-36-8465Ygu Needle, Diabetic (Ulticare Pen Needle) 31 gauge x 3/16 needleStart: 07-07-2023 End: 72-82-3425Hdp Needle, Diabetic (Ulticare Pen Needle) 31 gauge x 3/16 needleStart: 07-07-2023 End: 75-63-5906Sst Needle, Diabetic (Ulticare Pen Needle) 31 gauge x 3/16 needleStart: 07-07-2023 End: 16-51-8608Kvg Needle, Diabetic (Ulticare Pen Needle) 31 gauge x 3/16 needleStart: 07-07-2023 End: 93-81-8922Fog Needle, Diabetic (Ulticare Pen Needle) 31 gauge x 3/16 needleStart: 07-07-2023 End: 51-44-9275Edt Needle, Diabetic (Ulticare Pen Needle) 31 gauge x 3/16 needleStart: 07-07-2023 End: 09-45-5780Djo Needle, Diabetic (Ulticare Pen Needle) 31 gauge x 3/16 needleStart: 07-07-2023 End: 40-28-4086Kzh Needle, Diabetic (Ulticare Pen Needle) 31 gauge x 3/16 needleStart: 07-07-2023 End: 13-79-8501Osh Needle, Diabetic (Ulticare Pen Needle) 31 gauge x 3/16 needleStart: 07-07-2023 End: 55-52-5736Vvh Needle, Diabetic (Ulticare Pen Needle) 31 gauge x 3/16 needleStart: 07-07-2023 End: 49-37-4255Qvz Needle, Diabetic (Ulticare Pen Needle) 31 gauge x 3/16 needleStart: 07-07-2023 End: 98-90-2589Rsi Needle, Diabetic (Ulticare Pen Needle) 31 gauge x 3/16 needleStart: 07-07-2023 End: 11-39-1358Oyh Needle, Diabetic (Ulticare Pen Needle) 31 gauge x 3/16 needleStart: 07-07-2023 End: 06-79-2205Ljy Needle, Diabetic (Ulticare Pen Needle) 31 gauge x 3/16 needleStart: 07-07-2023 End: 66-80-2793Gsu Needle, Diabetic (Ulticare Pen Needle) 31 gauge x 3/16 needleStart: 07-07-2023 End: 77-23-1093Gks Needle, Diabetic (Ulticare Pen Needle) 31 gauge x 3/16 needleStart: 07-07-2023 End: 12-20-2023 Goals DatePatient GoalDesired Activity/State Functional Status SxjiBzrclhldiyWinpstNqmqbemj82-95-4858Wvcnsovwil statusPatient at Baseline [facility] Work Phone: [phone] statusPatient at Baseline [facility] Work Phone: Mental Status MsmvNcffmnaxhpHqxmvfEblhdgvk43-54-1441Ocnmqiccw functionCognitive Status [facility] Work Phone: [phone]na functionCognitive Status [facility] Work Phone: Clinical Notes 05-04-2021 to 12-26-2024 Note Date & ItjfBwzxRmaxkhqj25-03-7386 Evaluation note* Diagnosis Onset Date Resolution Status Admit Date Primary osteoarthritis of right knee acuteAugust 2024 7:28am [facility] Work Phone: [phone] 492-393908-14-2025 Evaluation note* Diagnosis Onset Date Resolution Status Admit Date Primary osteoarthritis of right knee acuteAugust 2024 7:28amDiverticulitisacuteAugust 2024 2:05pmGERD (gastroesophageal reflux disease)acuteAugust 2024 2:05pmEncounter for immunizationacuteSeptember 2024 10:45am [facility] Work Phone: [phone] NoteGeneral Surgery Office/Clinic Note Chief Complaint consultation for cholelithiasis HPI Staff 64 year old female presents on consultation from Dr. Salamanca for cholelithiasis. Patient reports 3 month history [...] no dysphagia; patient reports EGD/colonoscopy done at [facility] years ago, reportedly with just diverticulosis; [...] E&M of New Patient Moderate 45-59 Min 89452 2. Left flank pain (R10.9: Unspecified abdominal pain) see # 1 Ordered: CT Abdomen/Pelvis w/ Contrast E&M of New Patient Moderate 45-59 Min 95940 3. Nausea (R11.0: Nausea) see # 1 Ordered: CT Abdomen/Pelvis w/ Contrast E&M of New Patient Moderate 45-59 Min 02666 4. Abdominal bloating (R14.0: Abdominal distension (gaseous)) see # 1 Ordered: CT Abdomen/Pelvis w/ Contrast E&M of New Patient Moderate 45-59 Min 71822 5. Frequent loose stools (R19.7: Diarrhea, unspecified) see # 1 Ordered: CT Abdomen/Pelvis w/ Contrast E&M of (more content not included)...[facility] HospitalComment on above:Result Comment: Electronically Signed By: ZAYRA PACHECO, Anthony Barrera\Date and Time Signed: 12/03/24 09:16 [id number] Radiology Diagnostic study note [facility] [place] [address] Ultrasound Report Signed Patient: Nancy Hooper MR#: [id number] : 1960 Acct:[id number] Age/Sex: 64 / F ADM Date: 5 Loc: Room: Type: [facility] Attending Dr: Rafael Salamanca MD Ordering Provider: Rafael Salamanca MD Date of Service: 11/23/24 US/US abdomen limited: R10.13,R10.12 Copies to: Rafael Salamanca MD~ EXAMINATION TYPE: US abdomen limited DATE [...] Degroot M.D. 11/23/2024 5:13 PM Dictation Location: [employer]-17 Tech: Ramila Su Transcribed By: ADAM 11/23/241712 Dictated By: Shai Degroot II, MD 11/23/241711 Signed By: 11/23/241712 [facility] Work Phone: 1(342) 444-959607-09-2025 History of Present illness Narrative* Joseph Montague DPM - 11/20/2024 4:10 PM EDT Patient: Nancy Hooper : 1960 PCP: Rafael Salamanca MD SUBJECTIVE This is a 64 y.o. [...] [address]th metat[address] CT scan Ordering Provider: Rafael Salamanca MD Date of Service: 10/16/24 CT/CT foot LT wo con: M79.672 ([id number]) CT/CT ankle LT wo con: M79.672 CT [...] midfoot exostectomy in the future Discussed possible rktw-qbl-ofqebkt arch supports and patient may consider and continues ibuprofen and ice p.r.n. and may consider walking boot if not improved in the next few weeks Joseph Montague DPM documented in this encounterCapital Region Medical CenterHvybocofex05-69-3284 History of Present illness Narrative* Joseph Montague DPM - 11/06/2024 3:50 PM EDT Patient: Nancy Martinezco : 1960 PCP: No primary care provider [...] [address]th [address] scan Ordering Provider: Rafael Salamanca MD Date of Service: 10/16/24 CT/CT foot LT wo con: M79.672 ([id number]) CT/CT ankle LT wo con: M79.672 CT [...] Patient may continue with conservative treatments including knvz-lse-snznziz anti- inflammatories and other treatments suggested today. Patient may want to be s cheduled for surgical intervention in the near future. Discussed possibly left midfoot exostectomy in the future Joseph Montague DPM documented in this encounterCapital Region Medical CenterKnbjfynivd95-69-3108 Radiology Diagnostic [facility] [place] [address] [place] [address] CT Scan Report Signed Patient: Nancy Hooper MR#: [id number] : 1960 Acct:[id number] Age/Sex: 64 / F ADM Date: 5 Loc: CT Room: Type: [facility] Attending Dr: Rafael Salamanca MD Copies to: Rafael Salamanca MD~ Ordering Provider: Rafael Salamanca MD Date of Service: 10/16/24 CT/CT foot LT wo con: M79.672 ([id number]) CT/CT ankle LT wo con: M79.672 CT [...] Degroot M.D. 10/16/2024 4:27 PM Dictation Location: [place] [address] Transcribed By: [facility] 10/16/24 1627 Dictated By: Shai Degroot II, MD 10/16/24 1601 Signed By: 10/16/24 1627 [facility] Work Phone: 1(906) 703-764704-30-2025 Evaluation note* Diagnosis Onset Date Resolution Status Admit Date Arthritis acuteApril 2024 8:10amGERD (gastroesophageal reflux disease)acuteApril 2024 8:10amObesity, Class I, BMI 30-34.9acuteApril 2024 8:10am PrediabetesacuteApril 2024 8:10amStrokeacuteApril 2024 8:10am Encounter for weight managementnoneactiveApril 2024 8:10am [facility] Work Phone: 1(144) 403-992711-08-2024 History of Present illness Narrative* Anneliese Hoyt MD - 03/22/2024 8:50 AM EST Subjective [...] exam, discussion and plan. documented in this [facility] Work Phone: 1(414) 334-221111-08-2024 Instructions* Patient Instructions* Regina Nieto LPN - [...] PRN [facility] medications [facility] Phone: 1(255) 574-313701-17-2024 Evaluation note* Encounter Date Diagnosis Assessment Notes [...] do this on the way to work May,rediabetes (ICD-10 - R73.09)Prediabetes has improved from 5.8 to 5.6% in office today. She is receiving dual benefit from liraglutide for both some weight loss and prediabetes May,rthritis (ICD-10 - M19.90) May,GERD (gastroesophageal reflux disease) (ICD-10 - K21.9) May,Migraine (ICD-10 - G43.909) May,Kidney stone (ICD-10 - N20.0) May,Stroke (ICD-10 - I63.9) May,iverticulitis (ICD-10 - K57.92) May,Impaired fasting glucose (ICD-10 - R73.01) May,Encounter for weight management (ICD-10 - Z76.89) [facility] Other 12-08-2023 Evaluation note* Encounter Date Diagnosis [...] constipation. Not currently using any type of [id number]-[id number] stool softener or fiber supplement. She continues [...] and a better balanced diet. She mentioned thatshe enjoys Premier protein shakes as she is [...] weight including the brain defending the certain bodyweight, sleep, stress, quality food choices and physical activity which we need to find balance in order to reach goals. Plan for A1c check at follow-up visit due to machine being down today Apr,rediabetes (ICD-10 - R73.09)Anticipate A1c at follow-up. Most recent A1c revealed an improvement in her prediabetes 5.8-5.6, she is receiving dual benefit from the Victoza Apr,rthritis (ICD-10 - M19.90) Apr,ERD (gastroesophageal reflux disease) (ICD-10 - K21.9) Apr,Migraine (ICD-10 - G43.909) Apr,idney stone (ICD-10 - N20.0) Apr,Stroke (ICD-10 - I63.9) Apr,iverticulitis (ICD-10 - K57.92) Apr,Impaired fasting glucose (ICD-10 - R73.01) Apr,Encounter for weight management (ICD-10 - Z76.89) [facility] Other 11-10-2023 History of Present illness Narrative* Anneliese Hyot MD - 03/24/2023 8:30 AM EST Subjective [...] discuss test results [facility] Work Phone: 1(156) 257-287911-10-2023 Instructions* Patient Instructions* Ino Torres MA - [...] of your visit. [facility] Work Phone: 1(216) 731-924611-02-2023 Evaluation note* Encounter Date Diagnosis Assessment Notes Treatment Notes Treatment Clinical Notes Mar, Obesity (ICD-10 - E66.9) Mar,MI 34.0-34.9,adult (ICD-10 - Z68.34) Mar,OtherSummary of Visit: (A) reviewed plate method (B) discussed wayst o increase fiber and benefits for overall health (C) briefly discussed exercise during winter Patient set the following goals: - NEw pt feels it best to start small to build motivation and momentum [facility] Other 10-27-2023 Evaluation note* Encounter Date Diagnosis [...] afternoon snack to help curb evening hunger Feb,rediabetes (ICD-10 - R73.09)She continues to receive dual benefit of Victoza for both weight loss and improvement in her prediabetes. We will continue to monitor with A1c's throughout patient's clinical course. She denies signsor symptoms of hypoglycemia. Headaches seem to be chronic in nature and were occurring prior to theaddition of Victoza. Not high suspicion of Victoza causing headaches at this time. Feb,rthritis (ICD-10 - M19.90) Feb,ERD (gastroesophageal reflux disease) (ICD-10 - K21.9) Feb,Migraine (ICD-10 - G43.909) Feb,idney stone (ICD-10 - N20.0) Feb,Stroke (ICD-10 - I63.9) Feb,iverticulitis (ICD-10 - K57.92) Feb,Impaired fasting glucose (ICD-10 - R73.01) Feb,Encounter for weight management (ICD-10 - Z76.89) [facility] Other 09-15-2023 Evaluation note* Encounter Date Diagnosis [...] it does not have to be first thingin the morning but preferably 2 to 3 hours after awakening so that she is not over hungry for lunchfrom hour. Continue Victoza 1.8 mg dose after titrating up for 1 week at the 1.2 mg dose Reinforced that she must have her daughter request records regarding the pathology report for her thyroid cancer she had her surgery performed at [facility]. Reinforced that itis is responsible for both of us to continue medication if there are known contraindications or risks. She needs to make initial dietitian appointment for individualized meal prep and planning guidance Strongly encouraged her to keep her follow-ups with both cardiology and her outpatient cardiac work-up including her CTA angio important to rule out cardiac causes and/or underlying issues is a primary concern. Jan,rediabetes (ICD-10 - R73.09)Patient will benefit twofold from Victoza for her both weight loss and improved insulin sensitivitywhich we will continue to monitor throughout patient's clinical course Jan,rthritis (ICD-10 - M19.90) Jan,ERD (gastroesophageal reflux disease) (ICD-10 - K21.9) Jan,Migraine (ICD-10 - G43.909) Jan,idney stone (ICD-10 - N20.0) Jan,Stroke (ICD-10 - I63.9) Jan,iverticulitis (ICD-10 - K57.92) Jan,Impaired fasting glucose (ICD-10 - R73.01) Jan,Encounter for weight management (ICD-10 - Z76.89) [facility] Other 08-23-2023 History and physical note Author Nabil Baker [facility] January 04, 2023 2:58amNote Date/TimeAugust 2022 6:25pm[place]ph[place] [address] Hospitalist H&P Signed Patient: Nancy Hooper MR#: [id number] : 1960 Acct:[id number] Age/Sex: 62 / F Adm Date: 3 Loc: Room: [address] [place] [address] Type: ADM INOo Attending Dr: Nabil Baker [...] ciprofloxacin and metronidazole with two days left inthe course. 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 [...] care Discussed with:?the medical team, the patient [facility] Medical History Benign tumor removed rt [...] % (Auto) 15.0 % (.) 01/03/23 10:20 Tillman % (Auto) 8.4 % (.) 01/03/23 10:20 Eos % (Auto) 0.7 % (.) 01/03/23 10:20 Baso % (Auto) 1.0 % (.) 01/03/23 10:20 Nucleat RBC Rel Count 0.1 /100 WBC (0-0.5) 01/03/23 10:20 Neut # (Auto) 6.2 x10E3/uL (1.8-7.7) 01/03/23 10:20 Lymph # (Auto) 1.2 x10E3/uL (1.00-4.8) 01/03/23 10:20 Tillman # (Auto) 0.7 x10E3/uL (0.0-0.8) 01/03/23 10:20 [...] pH 6.5 (5.0-9.0) 01/03/23 15:03 Ur Specific Chacon 1.024 (1.001-1.030) 01/03/23 15:03 Urine Protein Negative [...] signed by Nabil Baker MD> 01/04/23 0258 [facility] Work Phone: 1(316) 584-235908-04-2023 Evaluation note* Encounter Date Diagnosis Assessment Notes Treatment Notes Treatment Clinical Notes Dec, Obesity (ICD-10 - E66.9) Findings consistent with obesity. Patient understands that this increases risk of multiple comorbidities associated with weight gain especially if there is a genetic predisposition. Discussed the complexity behind obesity and its multifactorial causes including genetics, the biological changes thatoccur with processed foods as well as lack of physical activity. We will assess for underlying causes of abnormal weight gain including thyroid dysfunction, poor sleep, medications, diet, etc. Discussed importance of adopting a healthier lifestyle in order to decrease or eliminate risk of impendingdiseases associated with excessive weight. Initial goal of [...] she has been out for 3 weeks andher blood pressure reflects this. Work on small goals of exercise 1 to 2 days a week for 15 to 20 minutes and build upon that Be aware of empty calorie intake with alcoholic beverages 3-4 beers per week is no less than 400 to500 david additional per week We discussed medication options including a GLP-1 agonist. She had been on and tolerated Saxenda inthe past. She does have a family history [...] naltrexone or metformin especially with prediabetes diagnosis. Wouldavoid phentermine containing products at this time due to uncontrolled hypertension. Dec,rediabetes (ICD-10 - R73.09)Patient meets criteria for prediabetes with A1c of 5.6 and elevated fasting glucose. First-line treatment with long- term healthy lifestyle change, decrease simple sweets and refined starches, increased exercise and activity and continue with long-term weight loss goals. Will need close long-term follow-up for this condition to prevent diabetes. Consider metformin or GLP-1 agonist. Dec,rthritis (ICD-10 - M19.90)Patient admits to pain which is likely exacerbated/secondary to increased weight. Treat with exercise incorporating low impact exercises or modifications as needed. Advised that there are multiple dif ferent exercise programs available, many of which can be done within the home that required little to no impact. Encouraged swimming as feasible. Slowly increase activity over time to reach goal of 30 minutes most days of the week. Strongly encouraged to take advantage of our painting technician available at [facility] that can help work around limitations. Each pound of weight loss is exponentially beneficial for weight bearing joints. Dec,ERD (gastroesophageal reflux disease) (ICD-10 - K21.9)Patient does suffer from GERD likely related to/ exacerbated by increased weight. Her GERD seems kj triggered most by acidic foods. Treat with weight loss and dietary changes. With moderate weightloss patient could achieve complete relief from GERD symptoms due to increased intraabdominal pressure. Could consider goal of being weaned off of medication after consideration to any other underlying etiologies/treatment. Patient to work closely with dietitian to help make healthy dietary choicesand avoid reflux- inducing foods. Briefly discussed these including avoiding citrus, high fat dairy, high fat meats and carbonated beverages, alcohol and coffee. Dec,Migraine (ICD-10 - G43.909)Patient does have a history of migraines not currently on any daily treatment has Nurtec as needed for flareups. She has had migraines to the point that they have caused paralysis mimicking a stroke. She has previously been on topiramate and tolerated at higher doses without any adverse effect. Shehas had benefit of weight loss with this as well. 04 Aug, 2023Kidney stone (ICD-10 - N20.0) Dec,Stroke (ICD-10 - I63.9)Formal diagnosis of stroke is questionable as she states it may have been either a TIA versus migraine as all of her symptoms had resolved. This is all subjective information from the patient. Dec,iverticulitis (ICD-10 - K57.92) Dec,Impaired fasting glucose (ICD-10 - R73.01) [facility] Other 04-11-2023 Evaluation note* Encounter Date Diagnosis Assessment Notes Treatment Notes Treatment Clinical Notes Aug, Injury of right wrist, initial e ncounter (ICD-10 - S69.91XA) Aug,Injury of right knee, initial encounter (ICD-10 - S89.91XA)Patient is progressing well from this injury. Progress activity as tolerated. Call with any concerns or questions Aug,Sprain of right wrist, initial encounter (ICD-10 - S63.501A) Aug,rimary osteoarthritis of right knee (ICD-10 - M17.11) Aug,cute pain of right knee (ICD-10 - M25.561) Aug,Right wrist pain (ICD-10 - M25.531) [facility] Other 03-27-2023 Evaluation note* Encounter Date Diagnosis Assessment Notes Treatment Notes Treatment Clinical Notes Jul, Injury of right wrist, initial e ncounter (ICD-10 - S69.91XA) Jul,Injury of right knee, initial encounter (ICD-10 - S89.91XA) Jul,Sprain of right wrist, initial encounter (ICD-10 - [...] work note given for three days Jul, rimary osteoarthritis of right knee (ICD-10 - M17.11)Extensive discussion about current condition and treatment options available. The patient is suffering from degenerative arthritis involving the knee. We discussed the conservative treatment options which can be beneficial in relieving pain, including gentle non-impact motion exercise and non-steroidal anti-inflammatory medication. We discussed the use of occasional cortisone injections that can p rovide pain relief as well as hyaluronan lubricant injection. We performed a 2/1cc marcaine / kenalog cortisone injection into the knee joint under sterile technique. Patient tolerated the injection well without adverse reaction. Jul,cute pain of right knee (ICD-10 - M25.561) Jul,Right wrist pain (ICD-10 - M25.531) [facility] Other 12-21-2021 Evaluation note* Encounter Date Diagnosis Assessment Notes Treatment Notes Treatment Clinical Notes Apr, Encounter for immunization (ICD- 10 - Z23) Patient presents for COVID-19 vaccination BOOSTER. Pre-screening form answers evaluated with patient. Patient denies current illness or allergic reaction to component of COVID-19 vaccine. Patient provided with current copy of EUA. [facility] Other Consult note Author Kajal Loera [facility] January 04, 2023 4:27pmNote Date/TimeAugust 2022 4:24pm[place]ph[place] [address] Cardiology Consult Note Signed Patient: Nancy Hooper MR#: [id number] : 1960 Acct:[id number] Age/Sex: 62 / F Adm Date: 3 Loc: Room: [address] [place] [address] Type: ADM INOo Attending Dr: Nabil Baker MD Copies to: MD Kajal Zelaya MD, [facility] Nabil Baker MD~ Cardiology HPI History of Present Illness Consult Date: 01/04/23 Reason for Consult: Chest pain HPI: Ms. Hooper is a 62 year old female who works in [employer] at [employer] and who is being seen at [...] as well. She was admitted for further evaluationwith no recurrence of symptoms. At the present [...] All other review of system essentially unremarkable [facility] Medical History Benign tumor removed rt [...] - Essential (primary) hypertension Documented By: Kajal Loera MD, [facility] 3 1620 Signed By: <Electronically signed by MD PETTY Loera> 01/04/23 1625 [facility] Work Phone: Discharge summary Author Nabil Baker [facility] January 05, 2023 1:20amNote Date/TimeAugust 2022 3:34pm[place]ph[place] [address] Discharge Summary Signed Patient: Nancy Hooper MR#: [id number] : 1960 Acct:[id number] Age/Sex: 62 / F Adm Date: 3 Loc: Room: [address] [place] [address]: Nabil Baker MD Copies to: MD Nabil Zelaya MD~ Providers Date of Discharge: 01/04/23 Discharging Provider: Nabil Baker Primary Care Provider: Rafael Salamanca Consults: * Kajal Loera MD; Cardiology Discharge Diagnosis (1) Chest pain: [...] home antibiotic regimen and to complete the prescribedcourse as directed. * All other chronic conditions were stable during the patient's stay unless mentioned above. I haveseen and examined the patient on the date [...] 10.9, BUN 25, Creatinine 0.83, Est GFR (CKD-EPI) > 60.0, Glucose 101 H, Calcium 9.1, Magnesium 2.2, Triglycerides 78, Cholesterol 122 L, LDL Cholesterol, Calc 67, VLDL Cholesterol 15, HDL Cholesterol 39, Cholesterol/HDL Ratio 3.1 01/03/23 15:09: Troponin I High Sens 13.3 01/03/23 15:03: Urine Color Yellow, Urine Appearance Clear, Urine pH 6.5, Ur Specific Chacon 1.024, Urine Protein Negative, Urine Glucose (UA) [...] BY MOUTH EVERY MORNING Follow Up: Anneliese Hoyt MD [Active Staff] - (we will call you with follow up and outpatient CT Angiogram and calcium scoring appointment. ) Rafael Salamanca MD [Primary Care Provider] - 01/11/23 10:45 am (You have been scheduled for a followup appointment for the following date and time, please call to reschedule if needed.) Documented By: Nabil Baker MD 01/04/23 1530 Signed By: <Electronically signed by Nabil Baker MD> 01/05/23 0120 [facility] Work Phone: Evaluation + Plan note No data available for this section [facility] [place] Evaluation noteNo assessment information available [facility] Work Phone: Evaluation note* Diagnosis Onset Date Resolution Status Chest pain acuteHypertensionchronic [facility] Work Phone: Evaluation noteNo InformationNorth Hygia Health Services Other Evaluation note* Diagnosis Precordial pain- Primary Essential hypertension, benign BMI 34.0-34.9,adult Encounter to discuss test results Other specified counseling [facility] Work Phone: Evaluation note* Diagnosis Onset Date Resolution Status Arthritis acuteGERD (gastroesophageal reflux disease)acuteObesity, Class I, BMI 30-34.9 acutePrediabetesacuteStrokeacuteEncounter for weight managementnoneactive ArthritisacuteGERD (gastroesophageal reflux disease)acuteObesity, Class I, BMI 30-34.9acutePrediabetesacuteStrokeacuteEncounter for weight managementnon[facility] Work Phone: Evaluation note* Diagnosis Onset Date Resolution Status Arthritis acuteGERD (gastroesophageal reflux disease)acuteObesity, Class I, BMI 30-34.9 acutePrediabetesacuteStrokeacuteEncounter for weight [facility]non[facility] Work Phone: Evaluation note* Diagnosis Precordial pain- Primary Essential hypertension, benign Diverticulosis Diverticulosis of colon (without mention of hemorrhage) BMI 32.0-32.9,adult Never smoked tobacco documented in this encounter [facility] Work Phone: Evaluation note* Diagnosis Onset Date Resolution Status Admit Date Arthritis acuteJanuary 2024 8:06amGERD (gastroesophageal reflux disease)acuteJanuary 2024 8:06amObesity, Class I, BMI 30-34.9acuteJanuary 2024 8:06am PrediabetesacuteJanuary 2024 8:06amStrokeacuteJanuary 2024 8:06am Encounter for weight managementnoneactiveJanuary 2024 8:06am [facility] Work Phone: Evaluation note* Diagnosis Onset Date Resolution Status Admit Date Arthritis acuteApril 2024 8:10amGERD (gastroesophageal reflux disease)acuteApril 2024 8:10amObesity, Class I, BMI 30-34.9acuteApril 2024 8:10am PrediabetesacuteApril 2024 8:10amStrokeacuteApril 2024 8:10am Encounter for weight managementnoneactiveApril 2024 8:10am [facility] Work Phone: Evaluation note* Diagnosis DJD (degenerative joint disease), ankle and foot, left- Primary Bone spur of left foot Capsulitis of metatarsophalangeal (MTP) joint of left foot [facility] Diagnosis Capsulitis of metatarsophalangeal (MTP) joint of left foot- Primary Bone spur of left foot DJD (degenerative joint disease), ankle and foot, left documented in this encounter [facility]* Diagnosis Onset Date Resolution Status Admit Date Primary osteoarthritis of right knee acuteAugust 2024 7:28am [facility] Work Phone: History and physical note Author Nabil Baker [facility] January 04, 2023 2:58amNote Date/TimeAugust 2022 6:25pm[place]ph[place] [address] Hospitalist H&P Signed Patient: Nancy Hooper MR#: [id number] : 1960 Acct:[id number] Age/Sex: 62 / F Adm Date: 3 Loc: Room: [address] [place] [address] Type: ADM INOo Attending Dr: Nabil Baker [...] ciprofloxacin and metronidazole with two days left inthe course. 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 [...] care Discussed with:?the medical team, the patient [facility] Medical History Benign tumor removed rt [...] % (Auto) 15.0 % (.) 01/03/23 10:20 Tillman % (Auto) 8.4 % (.) 01/03/23 10:20 Eos % (Auto) 0.7 % (.) 01/03/23 10:20 Baso % (Auto) 1.0 % (.) 01/03/23 10:20 Nucleat RBC Rel Count 0.1 /100 WBC (0-0.5) 01/03/23 10:20 Neut # (Auto) 6.2 x10E3/uL (1.8-7.7) 01/03/23 10:20 Lymph # (Auto) 1.2 x10E3/uL (1.00-4.8) 01/03/23 10:20 Tillman # (Auto) 0.7 x10E3/uL (0.0-0.8) 01/03/23 10:20 [...] pH 6.5 (5.0-9.0) 01/03/23 15:03 Ur Specific Chacon 1.024 (1.001-1.030) 01/03/23 15:03 Urine Protein Negative [...] signed by Nabil Baker MD> 01/04/23 0258 [facility] Work Phone: History general Narrative - Reported* Type Description Date Medical History HTN Medical HistorydiverticulitisMedical HistoryAnxietySurgical HistoryCollarbone tumor removedSurgical HistoryKnee surgery [id number] HistoryBreast Reduction Hospitalization HistorySee AboveHospitalization HistoryPneumoniaHospitalization HistoryDiverticulitisHospitalization HistoryParalegic Migraines [facility] Other Hismtge general Narrative - Reported* Type Description Date Medical History HTN Medical HistorydiverticulitisMedical HistoryAnxietyMedical HistoryGERDMedical HistoryKidney stonesMedical HistoryMigraine headacheMedical HistoryStroke 2009 Surgical HistoryCollarbone tumor removedSurgical HistoryKnee surgery [id number] HistoryBreast ReductionHospitalization HistorySee AboveHospitalization History PneumoniaHospitalization HistoryDiverticulitisHospitalization HistoryParalegic Migraines [facility] Other Hisnymj general Narrative - Reported* Type Description Date Medical History HTN Medical HistorydiverticulitisMedical HistoryAnxietyMedical HistoryGERDMedical HistoryKidney stonesMedical HistoryMigraine headacheMedical HistoryStroke 2009 Surgical HistoryCollarbone tumor removedSurgical HistoryKnee surgery [id number] HistoryBreast ReductionHospitalization HistorySee AboveHospitalization History PneumoniaHospitalization HistoryDiverticulitisHospitalization HistoryParalegic MigrainesHospitalization HistoryFR ER Chest pain12/2022 [facility] Other Hospital Discharge instructions No data available for this section [facility] Discharge instructions Additional Instructions DISCHARGE INSTRUCTIONS FOR UPPER ENDOSCOPY WHAT TO EXPECT: - You may feel full, gassy or cramping after your procedure. In some cases, this may be from a few hours to a day. Walking may help relieve the discomfort. - Your throat may feel sore today from the scope that the doctor passed through your throat to visualize your stomach. Take a throat lozenge or suck on ice to ease the discomfort. - You may notice some streaks of blood in your sputum if the doctor has taken a biopsy. - You should begin to recover from anesthesia within 1 hour of the procedure, however may feel groggy for the next 24 hours. DO's AND DON'Ts: - Call your doctor right away if you have a hard abdomen, severe pain, vomiting or if you cough up large amounts of blood. - Call your doctor if you develop any rashes, hives or difficulty breathing. - If you take 81 mg aspirin for your heart it is safe to resume this medication. - If you take other blood thinner medications your doctor will instruct you when these can safely be resumed. - Do NOT drive for 24 hours. - Do NOT operate machinery such as power tools, [employer], [employer], [employer] machines, etc. for 24 hours. - Avoid alcoholic beverages and drugs for allergies, nerves, or sleep. - Do NOT stay alone. Do NOT leave your child unattended. - Do NOT make important personal or business decisions or sign any legal documents. - Eat solid foods and drink liquids in smaller amounts than usual until normal appetite returns. If you should experience an upset stomach, liquids high in sugar content (soda, Micheal-Aid, non-acid juices) are recommended. - Do NOT smoke. - Do take it easy today. You need not stay in bed, but avoid strenuous activities such as jogging or working out. DISCHARGE INSTRUCTIONS FOR COLONOSCOPY WHAT TO EXPECT: - You may feel full, gassy or cramping after your procedure. In some cases, this may be from a few hours to a day. Walking may help relieve the discomfort. - If you have polyp(s) removed you may note some minor bloody discharge after your first bowel movements. - You should begin to recover from anesthesia within 1 hour of the procedure, however may feel groggy for the next 24 hours. DO's AND DON'Ts: - Call your doctor right away if you have a hard abdomen, sever pain, are passing lots of bright red blood or clots. - Call your doctor if you develop any rashes, hives or difficulty breathing. - Let your doctor know if you have not had a bowel movement by 3 days after your procedure. - If you take 81 mg aspirin for your heart it is safe to resume this medication. - If you take other blood thinner medications your doctor will instruct you when these can safely be resumed. - Do NOT drive for 24 hours. - Do NOT operate machinery such as power tools, [employer] mowers, snow blowers, sewing machines, etc. for 24 hours. - Avoid alcoholic beverages and drugs for allergies, nerves, or sleep. - Do NOT stay alone. Do NOT leave your child unattended. - Do NOT make important personal or business decisions or sign any legal documents. - Eat solid foods and drink liquids in smaller amounts than usual until normal appetite returns. If you should experience an upset stomach, liquids high in sugar content (soda, Micheal-Aid, non-acid juices) are recommended. - You can resume normal activities tomorrow. FOLLOW UP & RECOMMENDATIONS: -Please call the office and make a follow up appointment to see me in 3-4 months if you do not have an appointment scheduled. -Notify the doctor if you have any problems. -Repeat colonoscopy in 3 yrs with a 2 day bowel preparation -Follow up with PCP. - Office number [phone]. [facility] Work Phone: Progress note No data available for this section [facility] General [facility] [place] Reason for referral (narrative)* Consultation (Routine) - AuthorizedSpecialtyDiagnoses / ProceduresReferred By ContactReferred To ContactCardiology Diagnoses Precordial pain Essential hypertension, benign Procedures Follow Up In Cardiology Anneliese Hoyt MD [address] [place] [address] 2, [address] [address] Anneliese Hoyt MD [address] [place] [address] 2, [address] [place] [address] Referral IDStatusReasonStart DateExpiration DateVisits RequestedVisits [id number]/10/202311/ [facility] Work Phone: Reason for referral (narrative)No reason for referral information availableBluffton Hospital Work Phone: Reason for visit Narrative* Consultation (Routine) - ClosedSpecialtyDiagnoses / ProceduresReferred By ContactReferred To Contact Podiatry Diagnoses Pain in left foot Procedures MD OFFICE/OUTPATIENT NEW LOW MDM 30 MINUTES Rafael Salamanca MD [address] [place] [address] Phone: tel:[phone] fax: Joseph Montague DPM [address] [address] Phone: tel: fax: Referral IDStatusReasonStart DateExpiration DateVisits RequestedVisits [id number]/10/20259/ [facility] Healthcare Summary Purpose Family History No Family History Records FoundUnknown Family Member Name Dates Details Family history of myocardial infarction: Brother(V17.3, Z82.49) Status:Active Relationship Condition Age at Onset Recorded Date/T nazanin brother Myocardial infarction Unknown fatherHistory of blood clotsUnknownLeukemiaUnknownUnknown Family Member Name Dates Details Family history [...] chest pain Chief Complaint Pillars obesity chest painReason for VisitChest pain Hypertension 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 Reason for Visit Arthritis GERD [...] - Pain in right knee December 8:05am Chief Complaint Admit Date M79.672 October 16, 2024 8:05a m R10.13 November 21, 2024 7:44 am R10.13 R10.November 23, 2024 8:50 am N39.0 December 03, 2024 12:0 6pm pillars December 20, 2024 7:0 6am N39.0 December 20, 2024 7:0 7am N39.0 December 24, 2024 2: 38pm NEW RT KNEE PAIN/SWELLING NX December 7:28am M25.561 - Pain in right knee December 8:05am acute diverticulitis January 06, 2025 2 :05pm Chief Complaint Admit Date R10.13 November 21, 2024 7:44 am R10.13 R10.12 November 23, 2024 8:50 am N39.0 December 03, 2024 12:0 6pm pillars December 20, 2024 7:0 6am N39.0 December 20, 2024 7:0 7am N39.0 December 24, 2024 2: 38pm NEW RT KNEE PAIN/SWELLING NX December 7:28am M25.561 - Pain in right knee December 8:05am acute diverticulitis January 06, 2025 2 :05pm Flu February 10, 2025 10:45am Reason for Visit Admit Date Primary osteoarthritis of right knee Aug ust 2024 7:28am Diverticulitis January 06, 2025 2: 05pm GERD (gastroesophageal reflux disease) A ugust 2024 2:05pm Encounter for immunization January 10:45am Chief Complaint Admit Date R10.13 November 21, 2024 7:44 am R10.13 R10.12 November 23, 2024 8:50 am N39.0 December 03, 2024 12:0 6pm pillars December 20, 2024 7:0 6am N39.0 December 20, 2024 7:0 7am N39.0 December 24, 2024 2: 38pm NEW RT KNEE PAIN/SWELLING NX December 7:28am M25.561 - Pain in right knee December 8:05am acute diverticulitis January 06, 2025 2 :05pm Flu February 10, 2025 10:45am hx of diverticulitis, gerd January 8:15am Additional Source Comments INFORMATION SOURCE (unrecogn ized section and content) DATE CREATED AUTHOR 10/23/2021 [facility] DATE CREATED AUTHOR AUTHOR'S ORGANIZ ATION 08/20/2022 [facility] DATE CREATED AUTHOR AUTHOR'S ORGANIZ ATION 01/07/2023 [facility] DATE CREATED AUTHOR AUTHOR'S ORGANIZ ATION 03/19/2023 [facility] DATE CREATED AUTHOR AUTHOR'S ORGANIZ ATION 03/24/2024 [facility] DATE CREATED AUTHOR AUTHOR'S ORGANIZ ATION 11/24/2024 [facility] EPIC DATE CREATED AUTHOR AUTHOR'S ORGANIZ ATION 12/05/2024 [facility] DATE CREATED AUTHOR AUTHOR'S ORGANIZ ATION 02/16/2025 [facility] REASON FOR VISIT (unrecogniz ed section and content) ReasonCommentsHospital Follow-upReasonCommentsAnnual ExamSpecialtyDiagnoses / ProceduresReferred By ContactReferred To ContactCardiology Diagnoses Precordial pain Essential hypertension, benign Procedures Follow Up In Cardiology Anneliese Hoyt MD [address] [place] [address] 2, [place] [address] Phone: tel: fax: Anneliese Hoyt MD [facility] 2, [facility] [address] [id number] Phone: tel: fax:[phone] Referral IDStatusReasonStart DateExpiration DateVisits RequestedVisits [id number]/10/202311/[id number] [facility] Care Teams (unrecognized sec tion and content) Team Status: Active Member Role Status Sy Salamanca MD Primary Care Provider Active Team Status: Inactive Member Role Status Sy Salamanca MD Primary Care Provider Active Karina Kumar ProviderMD Kourtney Monge MDAdmit Provider, Attending ProviderActiveMoamauri Hoyt MDOther ProviderActive Team Status: Inactive Member Role Status Sy Salamanca MD Primary Care Provider Active DO JENNY MunguiaAttbryan ProviderActive Team Status: Active Member Role Status Sy Salamanca MD Primary Care Provider Active Gus Altamirano ProviderActive Team Status: Active Member Role Status Sy Salamanca MD Primary Care Provider Active Karina Kumar ProviderMD Kourtney Monge MDAdmit Provider, Attending ProviderActive Team Status: Inactive Member Role Status Sy Salamanca MD Primary Care Provider Active Debbie Teague Provider, Referring ProviderActive Team Status: Inactive Member Role Status Sy Salamanca MD Primary Care Provider Active Sharla Strange NP-CAttending ProviderActive Team Status: Inactive Member Role Status Sy Salamanca MD Primary Care Provider, Attending Pr ovider Active Team MemberRelationshipSpecialtyStart DateEnd Date Rafael Salamanca MD [address] [facility] [place] [address] PCP - General05/15/99 Team Status: Inactive Member Role Status Dates Rafael Salamanca MD Primary Care Provider Active Start: July 12, 2023 End: July 12, 2023Gus Altamirano ProviderActiveStart: July 12, 2023 End: July 12, 2023 Team Status: Inactive Member Role Status Dates Rafael Salamanca MD Primary Care Provider Active Start: September 06, 2023 End: September 06, 2023HeaGus Benz ProviderActiveStart: September 06, 2023 End: September 06, 2023 Team Status: Inactive Member Role Status Dates Rafael Salamanca MD Primary Care Provider Active Start: October 27, 2023 End: October 27, 2023HeaGus Benz ProviderActiveStart: October 27, 2023 End: October 27, 2023 Team Status: Inactive Member Role Status Sy Salamanca MD Primary Care Provider Active Start: November 13, 2023 End: November 12melissa ALVARADO DO CHCAttending ProviderActiveStart: November 13, 2023 End: November 13, 2023 Team Status: Inactive Member Role Status Sy Salamanca MD Primary Care Provider Active Start: December 20, 2023 End: December 20, 2023Gus Altamirano ProviderActiveStart: December 20, 2023 End: December 20, 2023 Team Status: Active Member Role Status Sy Salamanca MD Primary Care Provider Active Start: January 19, 2024 End: January 19mesfin Emanuel DOAttending ProviderActiveStart: January 19, 2024 End: January 20, 2024 Team Status: Inactive Member Role Status Sy Salamanca MD Primary Care Provider Active Start: February 14, 2024 End: February 14, 2024Gus Altamirano ProviderActiveStart: February 14, 2024 End: February 14, 2024Team MemberRelationshipSpecialtyStart DateEnd Date Rafael Salamanca MD [address] [place] [address] PCP - [facility]05/15/99 Team Status: Inactive Member Role Status Dates Rafael Salamanca MD Primary Care Provider Active Start: June 12, 2024 End: June 12, 2024HeaGus Benz ProviderActiveStart: June 12, 2024 End: June 12, 2024 Team Status: Inactive Member Role Status Dates Rafael Salamanca MD Primary Care Provider Active Start: September 11, 2024 End: September 11, 2024HeaGus Benz ProviderActiveStart: September 11, 2024 End: September 11, 2024 Team Status: Inactive Member Role Status Dates Rafael Salamanca MD Primary Care Provide r, Attending Provider Active Start: September 27, 2024 End: September 27, 2024 Team Status: Inactive Member Role Status Dates Rafael Salamanca MD Primary Care Provide r, Attending Provider Active Start: October 16, 2024 End: October 16, 2024Team MemberRelationshipSpecialtyStart DateEnd Date Rafael Salamanca MD [address] [place] [address] [facility]24Team MemberRelationshipSpecialtyStart DateEnd Date Rafael Salamanca MD [address] [place] [address] PCP - Generalmily Medicine11/06/24Team MemberRelationshipSpecialtyStart DateEnd Date Rafael Salamanca MD [address] [place] [address] [facility]11/06/24 Team Status: Inactive Member Role Status Sy Salamanca MD Primary Care Provider Active Start: September 27, 2024 End: September 27, 2024Debbie Zelaya ProviderActiveStart: September 27, 2024 End: September 27, 2024 Team Status: Inactive Member Role Status Sy Salamanca MD Primary Care Provider Active Start: October 16, 2024 End: October 16, 2024Debbie Zelaya ProviderActiveStart: October 16, 2024 End: October 16, 2024 Team Status: Inactive Member Role Status Sy Salamanca MD Primary Care Provider Active Start: November 21, 2024 End: November 21, 2024Debbie Zelaya ProviderActiveStart: November 21, 2024 End: November 21, 2024 Team Status: Inactive Member Role Status Sy Salamanca MD Primary Care Provider Active Start: November 23, 2024 End: November 23, 2024Debbie Zelaya ProviderActiveStart: November 23, 2024 End: November 23, 2024 Team Status: Inactive Member Role Status Sy Salamanca MD Primary Care Provider Active Start: December 03, 2024 End: December 03, 2024Debbie Zelaya ProviderActiveStart: December 03, 2024 End: December 03, 2024 Team Status: Inactive Member Role Status Sy Salamanca MD Primary Care Provider Active Start: December 20, 2024 End: December 20melissa ALVARADO DO CHCAttending ProviderActiveStart: December 20, 2024 End: December 20, 2024 Team Status: Inactive Member Role Status Sy Salamanca MD Primary Care Provider Active Start: December 20, 2024 End: December 20, 2024Debbie Zelaya ProviderActiveStart: December 20, 2024 End: December 20, 2024 Team Status: Inactive Member Role Status Sy Salamanca MD Primary Care Provider Active Start: December 24, 2024 End: December 24, 2024Debbie Zelaya ProviderActiveStart: December 24, 2024 End: December 24, 2024 Team Status: Inactive Member Role Status Sy Salamanca MD Primary Care Provider Active Start: December 26, 2024 End: December 26, 2024John Benson II, MDAttending ProviderActiveStart: December 26, 2024 End: December 26, 2024 Team Status: Active Member Role Status Sy Salamanca MD Primary Care Provider Active Start: December 26, 2024 John Castorenale II, MDAttending ProviderActiveStart: December 26, 2024 Team Status: Inactive Member Role Status Sy Salamanca MD Primary Care Provider Active Start: January 06, 2025 End: January 06atherine L Ly , DOAttending ProviderActiveStart: January 06, 2025 End: January 06, 2025 Team Status: Inactive Member Role Status Sy Salamanca MD Primary Care Provider Active Start: February 10, 2025 End: February 10, 2025Jacqueline Groveland , RPHAttending ProviderActiveStart: February 10, 2025 End: February 10, 2025 Team Status: Active Member Role Status Sy Salamanca MD Primary Care Provider Active Start: February 11, 2025 Stella L Ly , DOAttending ProviderActiveStart: February 11, 2025 Stella L Ly , DOOther ProviderActiveStart: February 11, 2025 Goals (unrecognized section and content) Goals may [...] BE BASED ON THE PRIMARY CLINICAL RECORDS. [facility]. provides no warranty or guarantee of the accuracy or completeness of information in this document.
[2025-03-30] MEDS: DIGOXIN 500 MCG/2 ML AMPUL 250 MCG IV (02:43)
[2025-03-30] MEDS: ACETAMINOPHEN 325 MG TABLET 650 MG PO (02:43)
[2025-03-30 06:39] LABS: Hematocrit 41.2 % (36.0-48.0); Hemoglobin 13.7 g/dL (12.0-16.0); Immature Granulocytes Abs Auto 0.03 10^3/uL (0.00-0.03); Immature Granulocytes Pct Auto 0.3 % (0.0-0.5); Lymphocytes Absolute Auto 3.0 10^3/uL (1.2-3.8); Mean Corpuscular HGB Conc 33.3 g/dL (29.9-35.2); Mean Corpuscular Hemoglobin 30.0 pg (26.7-34.0); Mean Corpuscular Volume 90.4 fL (81.0-99.0); Platelet Count 262 10^3/uL (150-450); Red Blood Count 4.56 10^6/uL (4.20-5.40); White Blood Count 10.0 10^3/uL (4.0-11.0)
--- NOTE | 2025-03-30 07:00 | ECG_ITS ---
[facility] Test Date: 2025-03-30 Pat Name: AMANDA NORRIS Department: Room: [facility] Gender: Female Cap Maker: : [id number] Requested By: [id number] Order Number: [id number] Reading MD: BRANT PATEL M.D. Measurements Intervals [place] Rate: 70 P: 37 [place]: 182 QRS: 70 QRSD: 78 T: 73 QT: 408 QTc: 429 Interpretive Statements 1100 Sinus rhythm 8102 Low QRS voltage in chest leads 9120 atypical ECG Compared to ECG 03/29/2025 23:00:44 Atrial flutter no longer present 2:1 AV block no longer present Right bundle-branch block no longer present Possible ischemia no longer present Electronically Signed On 03-30-2025 6:54:55 EST by BRANT PATEL M.D.
[2025-03-30 07:06] LABS: Alanine Aminotransferase 22 U/L (14-59); Albumin Globulin Ratio 0.9; Albumin Level 3.2 g/dL (3.4-5.0); Alkaline Phosphatase 62 U/L (46-116); Anion Gap 13.9; Aspartate Amino Transferase 13 U/L (15-37); Blood Urea Nitrogen 28.0 mg/dL (7.0-18.0); Calcium 8.7 mg/dL (8.5-10.1); Carbon Dioxide 22.3 mmol/L (21.0-32.0); Chloride 112 mmol/L (98-107); Cholesterol 136 mg/dL (<=200); Estimated GFR (African America >60 (>=60 mL/min/1.73m^2); Estimated GFR (Non-African Ame >60 (>=60 mL/min/1.73m^2); Globulin 3.5 g/dL; Glucose 105 mg/dL (74-106); HDL Cholesterol 41 mg/dL (40-60); Magnesium 1.9 mg/dL (1.8-2.4); Potassium 4.2 mmol/L (3.5-5.1); Sodium 144 mmol/L (136-145); Total Protein 6.7 g/dL (6.4-8.2); Triglycerides 83 mg/dL (<=150); VLDL CHOLESTEROL 16.6 mg/dL
[2025-03-30] MEDS: METOPROLOL TARTRATE 25 MG TABLET PO (08:38)
[2025-03-30] MEDS: ASPIRIN 81 MG TABLET.DR PO (08:38)
[2025-03-30] MEDS: PANTOPRAZOLE SODIUM 40 MG TABLET.DR PO (08:38)
[2025-03-30] MEDS: ENOXAPARIN SODIUM 80 MG/0.8 ML SYRINGE SUBQ (13:41)
--- NOTE | 2025-03-30 13:45 | PM.HP ---
HPI H&P: HPI History of Present Illness Chief complaint: CHEST PAIN Narrative: This is a 64-year-old woman who came to the [facility] emergency room with complaints of chest pain. This had started about 5 hours before she arrived to the emergency room. She was at a birthday republic[employer]. She felt some dyspnea. She can feel her heart racing. She has never had this sensation before. When she was evaluated in the emergency room she was found to have atrial fibrillation with rapid ventricular response. She was given IV boluses of Cardizem. She was given Cardizem infusion. The emergency room was limited in how much IV Cardizem they could give her because her blood pressure began to get on the lower side. She was admitted to the hospital in the overnight hours. She was given a one-time dose of IV digoxin. By the next morning the patient had converted back to a normal sinus rhythm. The patient says that while she was having the rapid heart rate she was very symptomatic of the rapid heart rate. The could acutely feel the tachycardia. She could feel that her heart was irregular. She did have discomfort in her left neck and jaw and going down her left arm and some discomfort shooting down her back. Once the atrial fibrillation was converted back to normal sinus rhythm all of those anginal symptoms went away. She has a past medical history primarily of diverticulitis and then also hypertension. There is a diagnosis of mitral valve prolapse here in the [place] [facility]. The patient does not know many details about that. But she did see cardiology in [place] with Dr. Shahid in the office in the past. She describes getting echocardiograms and stress tests done there. There also is a possible history of transient ischemic attack. She does sometimes get migraines. Sometimes these can look like strokes. For her transient ischemic attack a few years ago she was like flighted out of [place] to [facility] and she stared there for about 3 days. So I think that is why she was labeled with a transient ischemic attack. Her past surgical history includes some knee arthroscopies. She never smoked. She occasionally drinks alcohol. 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 The patient's first troponin was elevated at 60. The next troponin was 55. By the morning time her troponin was 22. The patient admits that she was taking her Coreg only once a day. She also ran out of hydrochlorothiazide for the last few weeks, because with her new employer she needs to convert over to mail away to get her medications. She noticed that she was having more leg edema and some loading in her fingers and that her ring was not fitting well. During the daytime the patient received 25 mg of metoprolol tartrate. She ambulated in the hallways. Her heart rate was very steady at about 65 bpm. Her blood pressures were acceptable at about 130 systolic. She had a mild amount of dyspnea. The patient says that she prefers to continue her cardiology care in [place]. She will call their office on Monday to try and get an appointment. I did discuss that the patient has appropriate indicators for her to be on anticoagulation. She gets at least 2 on the CHADS2 DS VASc score for hypertension and female status and likely gets 1 for an apparent history of TIA. She admits that she has prediabetes which would not give her a point... but if she ever gets into diabetes and once her age becomes higher than 65 that she definitely qualifies for anticoagulation. So I recommended that she start anticoagulation and stop aspirin. Her daughter works as a nurse in case management at [employer] and is working on getting her first month free card for [employer]. Opioid HPI Opioid Management Most Recent Pain and Opioid Data: Last Pain Scale 3 Today, 12:00 Last Pain Assessment Today, 13:00 Last MAR Pain Assessment Today, 04:00 Last ORT Total Score 0 Today, 03:11 Last ORT Risk Category Low Risk Today, 03:11 Review of Systems ROS Narrative 10 point review of systems is negative except as mention above in the history present illness. [facility] Medical History Diverticulitis ?K57.92 - Diverticulitis of intestine, part unspecified, without perforation or abscess without bleeding (ICD-10) Sebaceous cyst ?L72.3 - Sebaceous cyst (ICD-10) Mitral valve prolapse ?I34.1 - Nonrheumatic mitral (valve) prolapse (ICD-10) Migraine ?G43.909 - Migraine, unspecified, not intractable, without status migrainosus (ICD-10) TIA (transient ischemic attack) ?G45.9 - Transient cerebral ischemic attack, unspecified (ICD-10) Surgical History Hx of breast reduction, elective ?Z98.890 - Other specified postprocedural states (ICD-10) H/O knee surgery ?Z98.890 - Other specified postprocedural states (ICD-10) Family History Brother Family history of CHF (congestive heart failure) Family history of myocardial infarction Mother Family history of COPD (chronic obstructive pulmonary disease) Family history of hypertension Father Family history of cancer Family history of stroke Social History Within the past year, how often did you have a drink containing alcohol: monthly or less Within the past year, how many standard drinks containing alcohol did you have on a typical day: 1 or 2 Within the past year, how often did you have six or more drinks on one occasion: less than monthly Total score: 1 Score interpretation: A score less than 3 is consistent with normal alcohol consumption. 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 [employer] Known occupational exposures/hazards: No Highest level of school completed/degree received: Master's degree Are you now , , , , never or living with a partner: In a typical week, how many times do you talk on the telephone with family, friends, or neighbors: 3 or more times per week How often do you get together with friends or relatives: 3 or more times per week How often do you attend congregation or methodist services: 1-3 times per year Little interest or pleasure in doing things: not at all Feeling down, depressed, or hopeless: not at all Feel stressed/tense/nervous/anxious/difficulty sleeping: to some extent Do you think of yourself as: straight/heterosexual Gender Identity: female Meds Home Medications and Allergies Home Medications ?Medication ?Instructions ?Recorded ?Confirmed ?Type pantoprazole 40 mg tablet,delayed 40 mg PO DAILY 01/19/24 03/30/25 History release apixaban 5 mg tablet (Eliquis) 5 mg PO BID 30 days #60 tabs 03/30/25 Rx furosemide 20 mg tablet (Lasix) 20 mg PO DAILY 5 days #5 tabs 03/30/25 Rx hydrochlorothiazide 12.5 mg tablet 12.5 mg PO DAILY 30 days #30 tabs 03/30/25 03/30/25 Rx metoprolol tartrate 25 mg tablet 25 mg PO BID 30 days #60 tabs 03/30/25 Rx potassium chloride 10 mEq 10 meq PO DAILY 5 days #5 caps 03/30/25 Rx capsule,extended release Allergies Allergy/AdvReac Type Severity Reaction Status Date / Time topiramate (From Topamax) Allergy Severe Vomiting Verified 03/30/25 00:55 Penicillins Allergy Mild Hives Verified 03/30/25 00:55 sulfamethoxazole (From Allergy Mild Hives Verified 03/30/25 00:55 Bactrim) trimethoprim (From Bactrim) Allergy Mild Hives Verified 03/30/25 00:55 azithromycin Allergy Unknown Unknown Verified 03/30/25 00:55 doxycycline Allergy Unknown Unknown Verified 03/30/25 00:55 erythromycin base Allergy Unknown Unknown Verified 03/30/25 00:55 amoxicillin AdvReac Mild Hives Verified 03/30/25 00:55 cefuroxime (From Ceftin) AdvReac Mild Hives Verified 03/30/25 00:55 morphine AdvReac Mild Redness of Verified 03/30/25 00:55 Skin Exam Narrative Exam Narrative: General: Awake. Alert. Oriented x 3. Psychiatric mood affect are normal. Skin: Warm and dry well-perfused. Eyes: EOMI. PERRLA. Mouth: Oropharynx is clear. Mallampati grade 3. Neck: No lymphadenopathy. No thyromegaly. Pulmonary: Clear to auscultation throughout. No wheezing. No rhonchi. No crackles Cardiac: Regular rate and rhythm. No murmurs to auscultation. On the awake overnight monitor she has a heart rate about 65 bpm at rest. GI: Abdomen soft, normal bowel sounds to auscultation throughout. Lower extremities: Mild pitting edema in her lower extremities. Constitutional Vital Signs, click to edit/add: Last Vital Signs Temp 97.8 F 03/30/25 12:00 Pulse 62 03/30/25 12:00 Resp 18 03/30/25 12:00 BP 137/74 03/30/25 12:00 Pulse Ox 98 03/30/25 12:00 O2 Del Method Room Air 03/30/25 12:00 Results Labs Labs: Short CBC 03/29/25 03/30/25 Range/Units 23:15 06:16 WBC 10.1 10.0 (4.0-11.0) 10^3/uL Hgb 15.5 13.7 (12.0-16.0) g/dL Hct 45.8 41.2 (36.0-48.0) % Plt Count 290 262 (150-450) 10^3/uL BMP 03/29/25 03/30/25 23:15 06:16 Sodium 146 H 144 Potassium 3.6 4.2 Chloride 110 H 112 H Carbon Dioxide 24.9 22.3 BUN 30.0 H 28.0 H Creatinine 0.92 0.62 Glucose 122 H 105 Calcium 9.4 8.7 Liver Function 03/30/25 Range/Units 06:16 Total Bilirubin 0.3 (0.2-1.0) mg/dL AST 13 L (15-37) U/L ALT 22 (14-59) U/L Alkaline Phosphatase 62 (46-116) U/L Albumin 3.2 L (3.4-5.0) g/dL Assessment and Plan Assessment and Plan (1) Atrial fibrillation with rapid ventricular response: (2) HTN (hypertension): Plan Assessment: New onset/first ever attack of atrial fibrillation with rapid ventricular spots. Hypertension. Suboptimal compliance with Coreg. Taking it only once a day at home. Mild body edema and hypervolemia due to missing hydrochlorothiazide for a few days. Symptoms consistent with some chest pain and angina while she had the tachycardia with rapid ventricular response. These resolved with heart rate returned to normal. Mild troponin elevation at first at 60 and then 55 but then improved to 22 when heart rate was controlled. Plan: Patient was monitored during the daytime and was stable and asymptomatic. Patient is suitable for discharge to home. It is a Monday. 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 For her medications right now I would stop lisinopril. This would allow more room to give her rate control. Risks and benefits discussed with the patient. Will start on anticoagulation. The patient has a 1 month free card from her daughter who is a showcase trimmer so she should get Eliquis for free for the first month. The patient understands that Pradaxa is becoming generic and this may be affordable for her. If she has any return of anginal type chest pain or return of atrial fibrillation with rapid ventricular response I recommend that she go to [facility] to consider cardiac catheterization.
--- NOTE | 2025-03-30 14:40 | PM.DS1 ---
DS: Providers Provider Date of admission: 03/30/25 01:58 Primary care physician: Rafael Dumont MD Consults: 03/30/25 02:13 Consult to Cardiology Routine Reason for consultation: A fib RVR DS: Diagnosis Discharge Diagnosis (1) Atrial fibrillation with rapid ventricular response: (2) HTN (hypertension): DS: Summary Hospital Course Hospital Course: The patient presented emergency room with tachycardia, and left-sided neck and jaw pain and some discomfort down her left arm. Initial troponin was 60. Heart rate was about 160 bpm with atrial fibrillation. The patient was given IV boluses of Cardizem and IV Cardizem drip. She also got a one-time dose of IV digoxin. With this her heart rate converted to normal sinus rhythm. The patient's troponin curve was 60, then 55, then 22. With the atrial fibrillation under control she was able to ambulate the hallways with no anginal symptoms. She admitted that she had been taking her Coreg only once a day. She had run out of hydrochlorothiazide recently. Her medications were adjusted, as described in this document, to help control heart rate. She will start anticoagulation with Eliquis. The patient is follow-up with her primary care provider in a couple weeks and to call cardiology to get into see a pumper brewery. Status at Discharge Functional status at discharge: independent ambulation Overall status at discharge: patient is progressing back to baseline Time Spent with Patient Time attestation: Total time spent providing and/or coordinating discharge services: Time spent: greater than 30 minutes Specific discharge activities: 39 minutes of time was spent on this patient today. Exam Constitutional Vital Signs, click to edit/add: Last Vital Signs Temp 97.8 F 03/30/25 12:00 Pulse 62 03/30/25 12:00 Resp 18 03/30/25 12:00 BP 137/74 03/30/25 12:00 Pulse Ox 98 03/30/25 12:00 O2 Del Method Room Air 03/30/25 12:00 DS: Data Data Completed and Pending Labs on day of discharge: Labs from last 24 hours 03/30/25 03/30/25 03/29/25 06:16 00:13 23:15 WBC 10.0 10.1 RBC 4.56 5.11 Hgb 13.7 15.5 Hct 41.2 45.8 MCV 90.4 89.6 MCH 30.0 30.3 MCHC 33.3 33.8 RDW 13.0 12.8 Plt Count 262 290 MPV 9.2 L 9.1 L Neut % (Auto) 59.9 55.6 Lymph % (Auto) 30.3 33.6 [place] % (Auto) 7.9 8.4 Eos % (Auto) 0.9 1.2 Baso % (Auto) 0.7 0.9 Neut # (Auto) 6.0 5.6 Lymph # (Auto) 3.0 3.4 [place] # (Auto) 0.8 0.9 H Eos # (Auto) 0.1 0.1 Baso # (Auto) 0.1 0.1 Abs Immat Gran (auto) 0.03 0.03 Imm/Tot Granulo (auto) 0.3 0.3 Sodium 144 146 H Potassium 4.2 3.6 Chloride 112 H 110 H Carbon Dioxide 22.3 24.9 Anion Gap 13.9 14.7 BUN 28.0 H 30.0 H Creatinine 0.62 0.92 Est GFR ( Amer) >60 >60 Est GFR (Non-Af Amer) >60 >60 BUN/Creatinine Ratio 45.2 32.6 Glucose 105 122 H Calcium 8.7 9.4 Magnesium 1.9 2.0 Total Bilirubin 0.3 AST 13 L ALT 22 Alkaline Phosphatase 62 Troponin I High Sens 22.5 55.3 H* 60.6 H* Total Protein 6.7 Albumin 3.2 L Globulin 3.5 Albumin/Globulin Ratio 0.9 Triglycerides 83 Cholesterol 136 LDL Cholesterol, Calc 78.4 VLDL Cholesterol 16.6 HDL Cholesterol 41 Cholesterol/HDL Ratio 3.3 Discharge Plan Discharge Disposition: Home, Self-Care Condition: Fair Discharge Medications: New furosemide [Lasix] 20 mg tablet 20 mg PO DAILY 5 Days Qty: 5 0RF potassium chloride 10 mEq capsule, extended release 10 meq PO DAILY 5 Days Qty: 5 0RF metoprolol tartrate 25 mg Tablet 25 mg PO BID 30 Days Qty: 60 0RF Rx Instructions: Further refills per Cardiology. Eliquis 5 mg tablet 5 mg PO BID 30 Days Qty: 60 0RF Rx Instructions: Pt will bring first month free coupon. Further refills from Cardiology. Continued pantoprazole 40 mg tablet,delayed release (DR/EC) 40 mg PO DAILY hydrochlorothiazide 12.5 mg tablet 12.5 mg PO DAILY 30 Days Qty: 30 0RF Rx Instructions: Start taking this on Monday, April 05. Discontinued carvedilol 12.5 mg tablet 12.5 mg PO Q12H aspirin 81 mg capsule 81 mg PO DAILY lisinopril 40 mg tablet 20 mg PO DAILY Qty: 0 0RF Print Language: Montenegrin Patient Instructions: Metoprolol (By mouth), Furosemide (By mouth) (Lasix), Apixaban (By mouth) (Eliquis), A-fib (Atrial Fibrillation) (DC) Forms: Portal Instructions Discharge Date/Time: 03/30/25 14:12
--- NOTE | 2025-03-31 08:32 | PC.NURSE ---
Follow up appts: [facility] with Dr. Jean 04/08 @ 3pm Dr. Dumont 04/09 @ 9:45am
--- OUTSIDE RECORDS SUMMARY | 2025-03-31 10:40 | XMS_ITS | Encounter Summary ---
Author Organization [facility] Address [address] [place] [address] Phone Care Team Providers Care Road Test Examiner Name Role Phone Rafael Dumont MD Primary Care Provider [phone] Reason for Referral * CV Imaging (Routine) - Pending ReviewSpecialtyDiagnoses / ProceduresReferred By ContactReferred To ContactCardiology Diagnoses Atrial flutter, unspecified type (Multi) Shortness of breath Essential (primary) hypertension Procedures Transthoracic Echo Complete ND ECHO TTHRC R-T 2D W/WOM-MODE COMPL SPEC&COLR D Luan Garcia MD [address] [facility], [address] [address] Phone: tel: fax: Referral IDStatusReasonStart DateExpiration DateVisits RequestedVisits [id number] Review Perform Procedure * Consultation (Routine) - AuthorizedSpecialtyDiagnoses / ProceduresReferred By ContactReferred To ContactCardiology Diagnoses Atrial flutter, unspecified type (Multi) Procedures Follow Up In Cardiology Luan Garcia MD [address] [facility], [address] [address] Phone: tel: fax: Luan Garcia MD [address] [place] [address] [place] [address] Phone: tel: fax: Referral IDStatusReasonStart DateExpiration DateVisits RequestedVisits [id number]/17/202511/17/202611 * Cardiovascular (Routine) - AuthorizedSpecialtyDiagnoses / ProceduresReferred By ContactReferred To Contact Diagnoses Atrial flutter, unspecified type (Multi) Procedures ECG 12 Lead Luan Garcia MD [address] [facility] 2, [address] [address] Phone: tel: fax: Referral IDStatusReasonStart DateExpiration DateVisits RequestedVisits [id number]/17/202511/17/202611 Reason for Visit * ReasonCommentsFollow-upTBH dc afib * Cardiovascular (Routine) - AuthorizedSpecialtyDiagnoses / ProceduresReferred By ContactReferred To Contact Diagnoses Atrial flutter, unspecified type (Multi) Procedures ECG 12 Lead Luan Garcia MD [address] [facility], [address] [address] Phone: tel: fax: Referral IDStatusReasonStart DateExpiration DateVisits RequestedVisits [id number]/17/202511/17/202611 Encounter Details DateTypeDepartmentCare Team (Latest Contact Info)Sqjvoayiwos11/17/2025 10:40 AM ESTOffice Visit [facility] [address] [place] [phone] Luan Garcia MD [address] [place] [address] Atrial flutter, unspecified type (Multi) (Primary Dx); Shortness of breath; Precordial pain; Essential (primary) hypertension; Diverticulosis; BMI 35.0-35.9,adult; Never smoked tobacco Discharge Disposition: Home Social History Tobacco UseTypesPacks/DayYears UsedDateSmoking Tobacco: NeverSmokeless Tobacco: Never Tobacco Cessation:Counseling Given: Yes Alcohol UseStandard Drinks/WeekCommentsYes0 (1 standard drink = 0.6 oz pure alcohol)SocialCommentsUnknownSex and Gender InformationValueDate RecordedSex Assigned at BirthNot on fileLegal XecUrdkvj66/25/2022 9:36 AM EST Gender IdentityNot on fileSexual OrientationNot on filedocumented as of this encounter Last Filed Vital Signs Vital SignReadingTime TakenCommentsBlood Wfeehjpn801/8203/31/2025 11:02 AM EST Nkwsl281303/31/2025 11:02 AM ESTTemperature--Respiratory Rate--Oxygen Saturation-- Inhaled Oxygen Concentration--Puugku899 kg (227 lb)03/31/2025 11:02 AM ESTHeight 170.2 cm (5' 7 )03/31/2025 11:02 AM ESTBody Mass Index35.5503/31/2025 11:02 AM ESTdocumented in this encounter Functional Status * BPAnswerDate of DikmxdwcaiOcpxow429/8203/31/2025 11:02 AM Eros Gilmore MA * PulseAnswerDate of FtwdjuuqlkWabqgd7041/17/2025 11:02 AM Eros Gilmore MA * QuestionAnswerDate of AssessmentAuthorDo you have any of the following new or worsening symptoms?None of these03/31/2025 8:47 AM ESTMychart, Generic documented as of this encounter Patient Instructions * Patient Instructions* Lotus Winter LPN - 03/31/2025 10:40 AM EST Please bring all medicines, vitamins, and herbal supplements with you when you come to the office. Prescriptions will not be filled unless you are compliant with your follow up appointments or have a follow up appointment scheduled as per instruction of your physician. Refills should be requested at the time of your visit. BMI was above normal measurement. Current weight: 103 kg (227 lb) Weight change since last visit (-) denotes wt loss 21 lbs Weight loss needed to achieve BMI 25: 67.7 Lbs Weight loss needed to achieve BMI 30: 35.9 Lbs Provided instructions on dietary changes Provided instructions on exercise. Recommend [employer] emani * Attachments The following attachments cannot be sent through Care Everywhere. * DASH Diet (Hungarian) documented in this encounter Progress Notes * Luan Garcia MD - 03/31/2025 10:40 AM EST Chief Complaint Patient presents with Follow-up [facility] dc afib Subjective Nancy Hooper is a 64 y.o. female HPI Patient here for follow-up from recent hospitalization. She presented to the hospital complaining of fatigue, tiredness, palpitation, shortness of breath and atypical chest pain. She was noted to be in atrial flutter. She was admitted to [facility] and she converted to quickly with IV Cardizem. Her medication was adjusted she was switched from Coreg to metoprolol but was advised to hold her lisinopril. The patient feels better since she went back to normal sinus rhythm. She denies lightheadedness, dizziness or syncope. Patient underwent cardiac workup few years back including remote echo and calcium scoring. Assessment 1. Recent presentation with symptomatic atrial flutter converted to normal sinus rhythm. She was placed on metoprolol and Eliquis 2. Previous evaluation for chest pain. Cardiac work-up was completely benign including stress test and calcium scoring. Patient report improvement of all her symptoms since she stopped Topamax. Recent recurrence with atrial flutter resolved with restoring sinus mechanism 3. Hypertension controlled on lisinopril and metoprolol 4. Obesity with recent recent 20 pound weight gain 5. Long-term anticoagulation. CHADS2 vascular score of 2. She meet indication for anticoagulation. Her bleeding risk is low 6. Diverticular disease appears quiescent Plan 1. I reviewed with the patient the result of her recent hospitalization record 2. I agreed with metoprolol and Eliquis and I advised her to continue her lisinopril 3. I counseled the patient at great length and regarding to nonpharmacologic approach for management of hypertension including salt restriction, exercise, increase her fluid intake and DASH diet 4. Risk, benefits alternative anticoagulation reviewed with her at length he understood and agreed 5. Will do an echocardiogram 4. I we will see her in few month or earlier if the need arise y Review of Systems Cardiovascular: Positive for dyspnea on exertion and palpitations. All other systems reviewed and are negative. Vitals: 03/31/25 1102 BP: 116/82 BP Location: Left arm Patient Position: Sitting Pulse: 69 Weight: 103 kg (227 lb) Height: 1.702 m (5' 7 ) Objective Physical Exam Allergies Erythromycin, Other, Topamax [topiramate], Cefuroxime axetil, Morphine, and Penicillins Current Medications Current Outpatient Medications Medication Instructions apixaban (ELIQUIS) 5 mg, oral, 2 times daily furosemide (LASIX) 20 mg, Daily hydroCHLOROthiazide (Microzide) 12.5 mg capsule 1 capsule, Daily ibuprofen 800 mg tablet 1 tablet, Every 8 hours PRN lisinopril 40 mg, oral, Daily metoprolol succinate XL (TOPROL-XL) 25 mg, oral, Daily, Do not crush or chew. pantoprazole (ProtoNix) 40 mg EC tablet 1 tablet, Daily potassium chloride CR 10 mEq ER tablet 10 mEq, Daily Assessment/Plan 1. Atrial flutter, unspecified type (Multi) ECG 12 Lead Follow Up In Cardiology Transthoracic Echo Complete metoprolol succinate XL (Toprol-XL) 25 mg 24 hr tablet apixaban (Eliquis) 5 mg tablet 2. Shortness of breath Transthoracic Echo Complete metoprolol succinate XL (Toprol-XL) 25 mg 24 hr tablet 3. Precordial pain 4. Essential (primary) hypertension Transthoracic Echo Complete metoprolol succinate XL (Toprol-XL) 25 mg 24 hr tablet lisinopril 40 mg tablet 5. Diverticulosis 6. BMI 35.0-35.9,adult 7. Never smoked tobacco Scribe Attestation By signing my name below, Lotus Ferreira LPN , Scribe attest that this documentation has been [...] exam, discussion and plan. documented in this encounter Plan of Treatment DateTypeDepartmentCare Team (Latest Contact Info)Rokdumnnjqt89/24/2026 2:00 PM ESTOffice Visit [facility] [address] [facility] [address] [place] [address] Luan Garcia MD [address] [facility], [address] [place] [address] NameTypePriorityAssociated DiagnosesOrder ScheduleTransthoracic Echo Complete EchocardiographyRoutine Atrial flutter, unspecified type (Multi) Shortness of breath Essential (primary) hypertension Expected: 03/31/2025 (Approximate), Expires: 03/31/2027documented as of this encounter Procedures Procedure NamePriorityDate/TimeAssociated DiagnosisCommentsECG 12-LEADRoutine 03/31/2025 10:40 AM EST Atrial flutter, unspecified type (Multi) documented in this encounter Results * ECG 12 Lead (03/31/2025 10:40 AM EST)Specimen (Source)Anatomical Location / LateralityCollection Method / VolumeCollection TimeReceived Time Narrative CPACS - 03/31/2025 11:33 AM EST Normal sinus rhythm with mild sinus arrhythmia\ Authorizing ProviderResult TypeResult StatusMoingrid Garcia MDECG ORDERABLES Final ResultPerforming OrganizationAddressCity/State/ZIP CodePhone Number CPACS documented in this encounter Visit Diagnoses Diagnosis Atrial flutter, unspecified type (Multi)- Primary Shortness of breath Precordial pain Essential (primary) hypertension Unspecified essential hypertension Diverticulosis Diverticulosis of colon (without mention of hemorrhage) BMI 35.0-35.9,adult Never smoked tobacco documented in this encounter Care Teams Team MemberRelationshipSpecialtyStart DateEnd Date Rafael Dumont MD [address] [place] [address] PCP - General05/15/99documented as of this encounter
--- NOTE | 2025-03-31 13:02 | CM.DCFOLLOWU ---
Message left with follow up appts date and times.
--- OUTSIDE RECORDS SUMMARY | 2025-04-01 05:30 | XMS_ITS | CCD ---
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 Name Role Phone Rafael Salamanca Unavailable Unavailable Unavailable Julia Ayon Unavailable MD Rafael Salamanca Primary Care Provider [phone] MD Anneliese Hoyt Attending Provider MD Anneliese Hoyt Referring Provider DO Renny Walton Attending Provider Sharla Strange Unavailable MD Rafael Salamanca Primary Care Provider [phone] MARIA T Strange Attending Provider [phone] MD Rafael Salamanca Attending Provider [phone] CHEIKH ., DR HALL Consulting Unavailable HOY ., DR HALL Attending Unavailable HOY ., DR HALL Admitting Unavailable HOY ., DR HALL Primary Care Unavailable HOY ., DR HALL Primary Care Unavailable HOY ., DR HALL Consulting Unavailable HOY ., DR HALL Attending Unavailable CHEIKH ., DR HALL Admitting Unavailable MD Rafael Salamanca Primary Care Provider [phone] DO Renny Walton Attending Provider [phone] Rafael Salamanca Primary Care Unavail able MD Rafael Salamanca Primary Care Provider [phone] YVROSE Kent Attending Provider MD Erika Escobedo Emergency Provider [phone] MD Nabil Baker Admit Provider MD Nabil Baker Attending Provider MD Anneliese Hoyt Other Provider [phone] ANNELIESE HOYT Referring Unavailable RAFAEL SALAMANCA Primary Care Unavailable ANNELIESE HOYT Referring Unavailable RAFAEL SALAMANCA Primary Care Unavailable Rafael Salamanca MD Primary Care Provider [phone] MD Rafael Salamanca Primary Care Provider [facility], DO Renny Finch Attending Provider ANNELIESE HOYT Attending Unavailable ANNELIESE HOYT Referring Unavailable RAFAEL SALAMANCA Primary Care Unavailable Rafael Salamanca MD Primary Care Provider Rafael Salamanca MD Attending Provider Unavailable [facility] Salamanca MD Primary Care Provider Rafael Salamanca MD Primary Care Provider Isabel Kent APRN Attending Provider JOSEPH MONTAGUE Attending Unavailable RAFAEL SALAMANCA Referring Unavailable JOSEPH MONTAGUE Attending Unavailable Rafael Salamanca Primary Care Physician Anthony IVERSON Attending Unavailable [facility] Renny JOHNSON Attending Provider John Benson MD Attending Provider Rafael Salamanca MD Primary Care Provider Rafael Salamanca MD Attending Provider Stella Palmer DO Attending Provider Rafael Salamanca MD Primary Care Provider Rafael Salamanca MD Attending Provider Joseph [facility] Attending Provider Stella Laguna DO Other Provider [phone] John Benson II Attending Unavailabl e [...] Rafael M Primary Care Unavailable Kun - [facility], Renny P [facility] Admitting Unavailable Hoy, Rafael M Primary Care Unavailable Allergies Allergy ClassificationReported Allergen(s)Allergy TypeDate of OnsetReaction(s) FacilityAnti-Epileptic Agents (1 source)topiramateDrug Gzonjme28-14-9519KpzjseqySelect Medical Specialty Hospital - [facility], IncCephalosporins (antibiotic) (1 source)CefuroximeDrug Hqdhabz71-62-6347WhmlwOvtnlrvgpMedina Hospital Dihydrofolate Reductase Inhibitors (antibiotic) (1 source)TrimethoprimDrug Lwnrhzw10-36-1241HivuyTuieeuvsaMedina HospitalDoxycycline (1 source)DoxycyclineDrug Dbjcbtn86-73-5835CknynDizapvafdMedina HospitalMacrolides (antibiotic) (1 source)AzithromycinDrug Rauudvu28-91-6445PqsfzHowekqrukMedina HospitalOpioid Agonists (1 source)MorphineDrug Ygfpapb04-88-6017RtaexHendxihufMedina Hospital Penicillins (antibiotic) (2 sources)AmoxicillinDrug Npvjqcq94-81-8842GroaaAjepewqcbMedina HospitalQuinolones (antibiotic) (1 source)levoFLOXacinDrug Brdjpiz79-76-2373SpnafQqwjyqtkmCommunity Regional Medical Centerulfonamides (antibiotic) (1 source)SulfamethoxazoleDrug Gqqabyh42-63-0840RztnoIyxzkiynjMedina Hospital (15 sources)Cefuroxime; Translations: [Ceftin]Drug AllergyWeal (disorder)[facility] (20 sources)Penicillins; Translations: [Penicillins]Allergy to drug (finding) 06-36-0800Skfk, Unknown Reaction, [facility] (3 sources)Morphine Derivatives; Translations: [Morphine Derivatives]Allergy to drug (finding)[place] [address] Work Phone: (20 sources)AmoxicillinDrug Reiuqkt80-30-2712ImvvjtpOhio State University [facility] (20 sources)Doxycycline; Translations: [doxycycline]Drug Nbqqgfu15-12-9372Okej (disorder)[facility] (16 sources)Erythromycin; Translations: [ERYTHROMYCIN]Drug Ptalidu40-83-1106 Unknown, Weal (disorder)[facility] (10 sources)levoFLOXacinDrug AllergyUnknowCitizens Memorial Healthcare [employer] Other (20 sources)Morphine; Translations: [MORPHINE]Drug Avmunfw25-16-8899Kmfxn, Itching, RashRegional Medical Center (11 sources)Sulfamethoxazole / Trimethoprim; Translations: [sulfamethoxazole-trimethoprim]Drug AllergyEruption of skin (disorder)[facility] [place] (20 sources)FLU VacinePropensity to adverse wscaianjn04-33-6985xmedgParkview Health (20 sources)AzithromycinDrug Xmiydbg23-07-8342CnlciRyzdqltciMedina Hospital (20 sources)CefuroximeDrug Cbmeslb50-08-4543GxcnxHzfdgzyqxMedina Hospital (20 sources)SulfamethoxazoleDrug Fyxjvdg94-27-2799NpxvjQqdvkzlolMedina Hospital (20 sources)TrimethoprimDrug Xyfklzs76-59-2156VbzbjSmrnvvjnxMedina Hospital (1 source)AmoxicillinDrug AllergyThe [facility] (1 source)CefuroximeDrug Rbvbwko90-05-6487W[facility] (2 sources)Codeine; Translations: [codeine]Drug Eitekfr69-05-6074ZxrMercy Health Tiffin Hospital [facility] (2 sources)Doxycycline; Translations: [Vibramycin]Drug Uwrvzys02-24-1754HhoMercy Health Tiffin Hospital [facility] (20 sources)ErythromycinDrug Axitfii1962IfztBwa [facility] (1 source)MorphineDrug Zqtylhc27-51-2292RqeMercy Health Tiffin Hospital Repository (2 sources)traMADol; Translations: [Ultram]Drug Uinfnlz40-90-2901WxjMercy Health Tiffin Hospital [facility] (1 source)MorphineDrug AllergyUnknowCitizens Memorial Healthcare [employer] Other (20 sources)topiramate; Translations: [TOPIRAMATE]Drug Xryjapr49-83-2509 Diarrhea, Multiple symptoms (finding)[facility] (4 sources)Cefuroxime; Translations: [CEFUROXIME AXETIL]Drug Ltzyqey31-19-1867 [facility] Repository (19 sources)levoFLOXacin; Translations: [LEVOFLOXACIN]Drug Wqckvrk37-57-6330 [facility] RepositoryComment on above:Pt indicates she can take this as of 12/20/2023. (4 sources)OTHER; Translations: [OTHER]Propensity to adverse reactions (disorder)88-55-9491Abfol, Itching, FeverElyria Memorial Hospital [facility]ository (1 source)ALLERGIES NOT ON FILE; Translations: [ALLERGIES NOT ON FILE]Propensity to adverse reactions (disorder)[facility] (2 sources)PenicillinsDrug Gnofcki34-33-4255GsuwCbvwivjvdbSalem Regional Medical Center Work Phone: (1 source)Codeine; Translations: [codeine]Drug AllergyVomiting (disorder)[facility] (2 sources)influenza A virus A/[place]/IS0523/2015 (H1N1) antigen / influenza A virus A/[place]/VZ6050 (H3N2) antigen / influenza B virus B/[place] [employer] antigen / influenza B virus B/ antigen; Translations: [influenza virus vaccine]Drug AllergyWeal (disorder)[facility] (2 sources)Penicillin; Translations: [penicillin]Drug AllergyWeal (disorder) [facility] Ifeanyi (1 source)traMADol; Translations: [tramadol]Drug AllergyHivesSt. Charles Hospital (1 source)Sulfamethoxazole / Trimethoprim; Translations: [Bactrim]Drug Allergy [facility] (1 source)topiramate; Translations: [Topamax]Drug AllergyOhio Valley Surgical Hospital Repository Medications Current Medications MedicationDrug Class(es)DatesSig (Normalized)Sig (Original)aspirin 81 mg delayed release oral tablet (20 sources)Platelet Aggregation Inhibitor, Nonsteroidal Anti-inflammatory Drug Start: 54-66-5441wump 1 tablet by mouth once dailyaspirin 81 mg Oral EC Tab 81 mg = 1 tab(s), Oral, Daily, Refills(s) 0 Start Date: 12/03/24 Status: Ordered Repeat number: 1Start: 91-45-7326mbsh 1 tablet by mouth once dailyAspirin 81 [...] oral capsule (2 sources)Tetracycline-class DrugStart: 04-13-2022 End: 02-42-0343lfdd 1 capsule by mouth twice dailydoxycycline (Monodox) 100 mg capsule Take 1 capsule (100 mg) by mouth 2 times a day. 04/13/2022 03/22/2024 Discontinued (Therapy completed)hydroCHLOROthiazide 12.5 mg oral tablet (20 sources)Thiazide DiureticStart: 04-17-5929zuji 1 tablet by mouth once daily Hydrochlorothiazide 12.5 mg tablet Active 12.5 MG PO Daily September 06, 2023 12:00am Complies with drug therapyStart: 01-03-2023 End: 48-52-7594bvuj 1 tablet by mouth once dailyHydrochlorothiazide 12.5 mg tablet Discontinued 12.5 MG PO Daily January 03, 2023 12:00am 2023 2:57pmStart: 83-15-9602csul 1 capsule by mouth once daily hydroCHLOROthiazide 12.5 MG Oral Capsule TAKE 1 CAPSULE ONCE DAILY. Quantity: 90 Refills: 3 Ordered: 22-Oct-2021 Anneliese Hoyt MD Start : 22-Oct-2021 Active new starthyoscyamine sulfate 0.125 mg oral tablet (20 sources)Start: 82-86-8633djcn 1 tablet by mouth every six hours as needed for painLevsin 0.125 mg SL Tab 0.125 mg = 1 tab(s), Oral, q6hr, PRN pain, Refills(s) 0 Start Date: 11/27/24 Status: Ordered Repeat number: 1Start: 07-07-2023 End: 52-04-1801dqpi 1 tablet by mouth every six hours [...] mg oral tablet (20 sources)Nonsteroidal Anti-inflammatory DrugStart: 67-96-7701hnqs 1 tablet by mouth every eight hours as needed for painIbuprofen 800 mg tablet Active 800 MG PO Every 8 hours as needed for fever or pain July 07, 2023 1:00am Complies with drug therapyStart: 07-06-2021 End: 66-72-6321Qfqqzqtsd 600 mg tablet Discontinued 800 MG PO Q8H as needed for pain July 06, 2021 9:31am July 07, 2023 2:57pmStart: 07-06-2021 End: 18-51-5299ulnq 800 mg by mouth every eight hoursIbuprofen Discontinued 800 MG PO Q8H July 06, 2021 9:31am July 07, 2023 2:57pmStart: 10-23-2020 End: 11-08-6865ttlo 1 tablet by mouth every eight hours as needed for pain Ibuprofen 600 mg tablet Discontinued 600 MG PO Q8H as needed for pain October 23, 2020 12:00am July 06, 2021 9:31amStart: 05-09-2018 End: 08-69-0541Twwmgmhzr (Motrin Ib) 200 mg Tablet Discontinued 800 MG PO Q8H as needed for Migraine Headache May 09, 2018 1:00am May 10, 2018 1:14pmStart: 04-44-4803bdfi 1 tablet by mouth every six hours as needed for pain Motrin 800 mg Tab Oral, q6hr, PRN Pain Start Date: 05/01/13 Status: Ordered Repeat number: 1Motrin As needed ActivemethylPREDNISolone (5 sources)CorticosteroidStart: 42-73-8507tffjrwXMETNNLlataz (Medrol Dospak) 4 MG tablets Indications: DJD (degenerative joint disease), ankle and foot, left Follow schedule on MEDROL PACK package instructions to be used as directed 21 tablet 11/06/2024 Activeondansetron 4 mg disintegrating oral tablet (20 sources)Serotonin-3 Receptor AntagonistStart: 33-81-8110xnld 1 tablet by mouth four times dailyondansetron 4 mg Dis Tab 4 mg = 1 tab(s), Oral, QID, Refills(s) 0 Start Date: 11/27/24 Status: Ordered Repeat number: 1Start: 43-65-0595gmnk 1 tablet by mouth once daily as needed for nausea and vomiting Ondansetron 4 mg tablet,disintegrating Active 4 MG PO Daily as needed for nausea and vomiting February 14, 2024 12:00am Complies with drug therapyStart: 09-27-2021 End: 63-62-9717lkxe 1 tablet by mouth every eight hours as needed for nausea and vomitingOndansetron 4 mg tablet,disintegrating Discontinued 4 MG PO Q8H as needed for nausea and vomiting 02 13September 27, 2021 12:00am January 03, 2023 10:55amStart: 04-04-2020 End: 37-52-3536fkas 1 tablet by mouth every eight hours [...] release oral tablet (20 sources)Proton Pump InhibitorStart: 41-94-5691glqv 1 tablet by mouth once dailyPantoprazole (Protonix) 40 mg tablet,delayed release (DR/EC) Active 40 MG PO Daily December 192:27pm Complies with drug therapyStart: 05-10-2018 End: 30-70-7233gmdz 1 tablet by mouth twice dailyPantoprazole (Protonix) 40 mg tablet,delayed release (DR/EC) Discontinued 40 MG PO Twice daily July 06, 2021 9:31am December 20, 2023 12:29pmStart: 02-14-2017 End: 52-60-3218euig 1 tablet by mouth once daily in the morningPantoprazole (Protonix) 40 mg Tablet,Delayed Release (Dr/Ec) Discontinued 40 MG PO Every morning February 14, 2017 12:00am May 10, 2018 1:15pm End: 15-84-4662wyts 1 tablet by mouth once dailypantoprazole (ProtoNix) 20 mg EC tablet Take 1 tablet (20 mg) by mouth once daily. 03/22/2024 Discontinued (Therapy completed)phentermine hydrochloride 37.5 mg oral tablet (2 sources)Sympathomimetic Amine AnorecticStart: 10-12-2022 End: 88-05-2226wfxp 1 tablet by mouth once daily before mealtimephentermine (Adipex-P) 37.5 mg tablet Take 1 tablet (37.5 mg) by mouth once daily in the morning. Take before meals. 10/12/2022 03/22/2024 Discontinued (Therapy completed)24 hr phentermine 7.5 mg / topiramate 46 mg extended release oral capsule (1 source)Sympathomimetic Amine AnorecticStart: 37-68-7971bpac 1 capsule by mouth every twenty-four hoursQsymia 7.5-46 MG 1 capsule Orally Once a day for 30 days Jul, Activerimegepant 75 mg disintegrating oral tablet (20 sources)Start: 72-28-3967sajk 1 tablet under the tongue onceNurtec ODT 75 mg oral tablet, disintegrating 75 mg = 1 tab(s), SubLingual, Once, Refills(s) 0 StartDate: 11/27/24 Status: Ordered Repeat number: 1Start: 26-75-4035tgjj 1 tablet by mouth once daily as needed for headacheRimegepant (Nurtec Odt) 75 mg tablet,disintegrating Active 75 MG PO Daily as needed for Migraine Headache July 06, 2021 1:00am Complies with drug therapy Completed/Discontinued Medications MedicationDrug Class(es)DatesSig (Normalized)Sig (Original)acetaminophen 500 mg oral capsule (20 sources)Start: 07-07-2023 End: 90-78-6519ygxf 1 capsule by mouth every six hours as neededAcetaminophen 500 mg capsule Discontinued 500 MG PO Every 6 hours as needed July 07, 2023 1:00am September 06, 2023 7:35amtake 1 capsule by mouth every six hours Acetaminophen 500 MG 1 capsule as needed Orally every 6 hrs Activeacetaminophen 325 mg / HYDROcodone bitartrate 10 mg oral tablet (20 sources)Opioid AgonistStart: 09-27-2021 End: 25-86-8697iybl 1 tablet by mouth three times daily as needed for pain Hydrocodone-Acetaminophen 10-325 mg tablet Discontinued 1 TAB PO Three times daily as needed for pain 10 5 September 27, 2021 January 03, 2023 10:55amStart: 07-14-2021 End: 07-77-1599bnse 1 tablet by mouth every six hours as needed for pain Hydrocodone-Acetaminophen 5-325 mg tablet Discontinued 1 TAB PO Q6H as needed for pain 20 July 14, 2021 January 03, 2023 10:55amacetaminophen 325 mg / oxyCODONE hydrochloride 5 mg oral tablet (20 sources)Opioid AgonistStart: 10-23-2020 End: 49-41-3698supv 1 tablet by mouth every six hours as needed for pain Oxycodone-Acetaminophen (Percocet) 5-325 mg tablet Discontinued 1 - 2 TAB PO Every 6 hours as needed for pain 20 3 October 23, 2020 July 06, 2021 9:31am amoxicillin 875 mg / clavulanate 125 mg oral tablet (20 sources)Penicillin-class AntibacterialStart: 10-23-2020 End: 91-00-0581azcb 1 tablet by mouth twice dailyAmoxicillin-Pot Clavulanate (Augmentin) 875-125 mg tablet Discontinued 1 TAB PO Twice daily 03 03October 23, 2020 12:00am July 06, 2021 9:30amStart: 10-28-2017 End: 96-23-5015mamp 1 tablet by mouth twice dailyAmoxicillin-Pot Clavulanate (Augmentin) 875-125 mg tablet Discontinued 1 TAB PO Twice daily 2017 12:00am May 09, 2018 2:22pmazithromycin 250 mg oral tablet (20 sources)Macrolide AntimicrobialStart: 02-14-2017 End: 64-68-1216ohkk 1 tablet by mouth once dailyAzithromycin (Zithromax Z-Hesham) 250 mg Tablet Discontinued 250 MG PO Daily February 14, 2017 12:00amOctober 25, 2017 11:39amciprofloxacin 500 mg oral tablet (20 sources)Quinolone AntimicrobialStart: 01-06-2025 End: 09-96-0359htgv 1 tablet by mouth once dailyCiprofloxacin Hcl 500 mg tablet Discontinued 500 MG PO Daily January 06, 2025 12:00am January 15, 2025 9:08amStart: 09-27-2021 End: 55-39-1405ncrs 1 tablet by mouth every two hoursCiprofloxacin [...] oral tablet (20 sources)Muscle RelaxantStart: 06-04-2020 End: 05-42-5584hdoj 1 tablet by mouth three times daily as needed for muscle spasmsCyclobenzaprine 10 mg tablet Discontinued 10 MG PO Three times daily as needed for muscle spasm June 04, 2020 1:00am September 18, 2020 7:08am24 hr desvenlafaxine succinate 50 mg extended release oral tablet (20 sources)Serotonin and Norepinephrine Reuptake InhibitorStart: 02-14-2017 End: 96-32-1120abmd 1 tablet by mouth once daily, then take 1 tablet by mouth every twenty-four hoursDesvenlafaxine Succinate (Pristiq) 50 mg Tablet Extended Release 24 Hr Discontinued 50 MG PO Daily February 14, 2017 12:00am October 25, 2017 11:40amdocusate sodium 50 mg / sennosides, long-term 8.6 mg oral tablet (20 sources)Start: 10-23-2020 End: 07-26-2138muyc 2 tablets by mouth once daily at bedtime as needed for constipationSennosides-Docusate Sodium (Senna Plus) 8.6-50 mg tablet Discontinued 2 TAB PO Daily at bedtime as needed for constipation October 23, 2020 12:00am July 06, 2021 9:31am12 hr guaiFENesin 600 mg extended release oral tablet (20 sources)Start: 02-15-2017 End: 08-64-1250wbmp 2 tablets by mouth twice daily, then take 1 tablet by mouth every twelve hoursGuaifenesin (Mucinex) 600 mg Tablet Extended Release 12hr Discontinued 1200 MG PO Twice daily February 15, 2017 12:00am October 25, 2017 11:40amlevoFLOXacin 500 mg oral tablet (18 sources)Quinolone AntimicrobialStart: 10-27-2023 End: 46-50-5777bxbc 1 tablet by mouth once dailyLevofloxacin 500 mg tablet Discontinued 500 MG PO Daily October 27, 2023 12:00am December 20, 2023 12:28pm3 ml liraglutide 6 mg/ml pen injector (20 sources)GLP-1 Receptor AgonistStart: 07-12-2023 End: 13-60-6463Ebmfzqhyctv (Victoza 3-Hesham) 0.6 mg/0.1 mL (18 mg/3 mL) pen injector Discontinued 3 MG SUBCUT Daily September 06, 2023 8:00am October 27, 2023 11:28am Inject 1.2mg +1.8mg daily to equal 3mg totalStart: 07-07-2023 End: 79-12-0629Jqhtdkfbdgg (Victoza 3-Hesham) 0.6 mg/0.1 mL (18 mg/3 mL) pen injector Discontinued 3 MG SUBCUT Daily July 07, 2023 1:00am July 12, 2023 9:43amStart: 01-18-2023 End: 28-50-6832Gjdfkgv 3-Hesham 0.6 mg/0.1 mL (18 mg/3 mL) injection Inject 0.1 mL (0.6 mg) under the skin. 01/18/2023 03/22/2024 Discontinued (Therapy completed) Start: 73-14-0030Yfzdcnp 18 MG/3ML 3mg Subcutaneous Daily for 30 days 2.4mg (1.8 + 0.6mg) once daily for 1 week, then 3mg (1.8 +1.2mg) thereafter Jan, ActiveStart: 02-91-4905dttosu 1.8 mg by subcutaneous injection once dailyVictoza 18 MG/3ML 1.8mg Subcutaneous Daily for 30 days Jan, Activeinject 3 mg by subcutaneous injection once dailyVictoza 18 MG/3ML 3mg (1.2 + 1.8) Subcutaneous Daily for 30 days BMI 34.8 Prediabetes R73.09 Activelisinopril 20 mg oral tablet (20 sources)Angiotensin Converting Enzyme InhibitorStart: 10-23-2020 End: 56-89-2004fbrw 2 tablets by mouth once dailyLisinopril 20 mg tablet Discontinued 40 MG PO Daily October 23, 2020 3:30am July 07, 2023 2:56pm Start: 10-23-2020 End: 09-71-5514lbht 40 mg by mouth once dailyLisinopril Discontinued 40 MG PO Daily October 23, 2020 3:30am July 07, 2023 2:56pmStart: 10-28-2017 End: 62-38-1434zuws 1 tablet by mouth once dailyLisinopril 20 mg Tablet Discontinued 20 MG PO Daily 0 October 28, 2017 2:34pm October 23, 2020 3:30am Start: 02-14-2017 End: 09-94-3443femd 2 tablets by mouth once dailyLisinopril 20 mg Tablet Discontinued 40 MG PO Daily 0 February 15, 2017 12:00am October 28, 2017 2:34pm Start: 02-14-2017 End: 04-21-1968shua 40 mg by mouth once dailyLisinopril Discontinued 40 MG PO Daily 0 February 15, 2017 12:00am October 28, 2017 2:34pmStart: 56-39-2275qiqu 1 tablet by mouth once dailyLisinopril 40 mg tablet Active 40 MG PO Daily July 07, 2023 1:00am Complies with drug therapyloratadine 10 mg oral tablet (20 sources)Start: 02-15-2017 End: 23-29-9629uewc 1 tablet by mouth once daily in the morningLoratadine 10 mg Tablet Discontinued 10 MG PO Every morning 0 February 15, 2017 12:00am October 25, 2017 11:40ammetroNIDAZOLE 500 mg oral tablet (20 sources)Nitroimidazole AntimicrobialStart: 01-06-2025 End: 43-65-0875tegk 1 tablet by mouth three times dailyMetronidazole 500 mg tablet Discontinued 500 MG PO Three times daily January 06, 2025 12:00am Ze[facility]at [facility] 2024 9:08amStart: 09-25-2020 End: 65-95-8143hull 1 tablet by mouth twice dailyMetronidazole 500 mg tablet Discontinued 500 MG PO Twice daily September 27, 2021 12:00am July 07, 2023 2:55pmphenazopyridine hydrochloride 200 mg oral tablet (18 sources)Start: 10-27-2023 End: 87-09-5574ursd 1 tablet by mouth once dailyPhenazopyridine 200 mg tablet Discontinued 200 MG PO Daily October 27, 2023 12:00am December 192:28pm Semaglutide (20 sources)Start: 02-14-2024 End: 36-63-1816poizpf 1 mg by subcutaneous injection every weekSemaglutide (Ozempic) 1 mg/dose (4 mg/3 mL) pen injector Discontinued 1 MG SUBCUT every week February 14, 2024 8:33am June 12, 2024 10:02amStart: 04-00-7637iipqvs 1 mg by subcutaneous injection every weekSemaglutide (Ozempic) 1 mg/dose (4 mg/3 mL) pen injector Active 1 MG SUBCUT every week February 14, 2024 7:33amStart: 12-20-2023 End: 49-06-7773zrhorq 1 mg by subcutaneous injection every weekSemaglutide (Ozempic) 1 mg/dose (4 mg/3 mL) pen injector Discontinued 1 MG SUBCUT every week December 20, 2023 4:56pm February 14, 2024 8:33amStart: 12-20-2023 End: 00-11-1524ykosss 1 mg by subcutaneous injection every weekSemaglutide (Ozempic) 1 mg/dose (4 mg/3 mL) pen injector Discontinued 1 MG SUBCUT every week December 20, 2023 3:56pm February 14, 2024 7:33amStart: 05-03-7690cduswa 1 mg by subcutaneous injection every weekSemaglutide (Ozempic) 1 mg/dose (4 mg/3 mL) pen injector Active 1 MG SUBCUT every week December 20, 2023 4:56pmStart: 10-27-2023 End: 38-35-9909gutnty 0.5 mg by subcutaneous injection every week, then inject 1 mg by subcutaneous injection every weekSemaglutide (Ozempic) 1 mg/dose (4 mg/3 mL) pen injector Discontinued 1 MG SUBCUT every week 2023 11:00pm December 20, 2023 3:57pm 0.5mg (36 clicks) weekly for 4 weeks then 1mg weekly thereafterStart: 10-27-2023 End: 76-54-6256cpqxsk 0.5 mg by subcutaneous injection every week, then inject 1 mg by subcutaneous injection every weekSemaglutide (Ozempic) 1 mg/dose (4 mg/3 mL) pen injector Discontinued 1 MG SUBCUT every week 2023 12:00am December 20, 2023 4:57pm 0.5mg (36 clicks) weekly for 4 weeks then 1mg weekly thereafterStart: 99-23-6433wahccx 0.5 mg by subcutaneous injection every week, then inject 1 mg by subcutaneous injection every weekSemaglutide (Ozempic) 1 mg/dose (4 mg/3 mL) pen injector Active 1 MG SUBCUT every week 9 October 12:00am 0.5mg (36 clicks) weekly for 4 weeks then 1mg weekly thereafter Semaglutide (12 sources)Start: 09-13-2024 End: 21-98-2201Tyuupfpsqiw (Ozempic) 0.25 mg or 0.5 mg (2 mg/3 mL) pen injector Discontinued 0.5 MG SUBCUT every week 3 September 13, 2024 12:00am January 06, 2025 2:11pm 0.25mg once weekly for weeks 1-4Start: 49-07-9341Pkymh: 09-13-2024 Semaglutide (Ozempic) 0.25 mg or 0.5 mg (2 mg/3 mL) pen injector Active 0.5 MG SUBCUT every week 3 September 13, 2024 12:00am 0.25mg once weekly for weeks 1-4 Semaglutide (20 sources)Start: 09-11-2024 End: 38-51-8925qhmbau 2 mg by subcutaneous injection every weekSemaglutide 2 mg/dose (8 mg/3 mL) pen injector Discontinued 2 MG SUBCUT every week 9 September 11, 2024 9:05am September 13, 2024 8:51amStart: 06-12-2024 End: 32-09-8045Hfgmzgdtaou 2 mg/dose (8 mg/3 mL) pen injector Discontinued 2 MG SUBCUT every week 9 June 12, 2024 10:00am September 11, 2024 9:05am 1mg (37clicks) for at least 4 weeks, titrate to 2mg as discussedSemaglutide 2 mg/dose (8 mg/3 mL) pen injector (3 sources)Start: 09-11-2024 End: 55-87-9719exwamy 2 mg by subcutaneous injection every weekSemaglutide 2 mg/dose (8 mg/3 mL) pen injector Discontinued 2 MG SUBCUT every week September 11, 2024 9:05am September 13, 2024 8:51amStart: 06-12-2024 End: 96-18-0936Ibdmvqbwgio 2 mg/dose (8 mg/3 mL) pen injector [...] mg oral tablet (20 sources)Start: 12-16-2022 End: 63-55-5995ovbi 1 tablet by mouth once dailyTopiramate 50 mg tablet Discontinued 50 MG PO Daily January 03, 2023 12:00am July 07, 2023 2:55pm Start: 36-72-3130Uljpxzikei 50 MG Half tablet once daily for 7 days then increase to one tablet daily Orally Once a day for 30 days Dec, Not-Taking/PRNStart: 02-14-2017 End: 78-96-4633svje 1 tablet by mouth once dailyTopiramate (Topamax) 200 mg Tablet Discontinued 200 MG PO Daily February 14, 2017 12:00am February 14, 2019 11:13amtraMADol hydrochloride 100 mg oral tablet (3 sources)Opioid AgonistStart: 01-06-2025 End: 19-28-5264Xsmcnyje 100 mg tablet Discontinued 100 MG PO January 06, 2025 12:00am January 15, 2025 9:08amtriamcinolone acetonide 40 mg/ml injectable suspension (9 sources)CorticosteroidStart: 15-36-4331Xjbbydo-40 Jul, 40 mg Problems Active Problems Problem ClassificationProblemDateDocumented DateEpisodic/ChronicAbdominal pain (14 sources)Left sided abdominal pain; Translations: [Unspecified abdominal pain]Onset: 75-75-8171KxfigprpMotdc cerebrovascular disease (20 sources)Cerebrovascular accident; Translations: [Cerebral infarction, unspecified]ChronicAdministrative/social admission (20 sources)Persons encountering health services in other specified circumstances; Translations: [Follow-up status]Onset: 03-24-2023 Resolved: 88-47-0682ItxtnxebKvyzbpg disorders (20 sources)Anxiety; Translations: [Anxiety disorder, unspecified]02-15-2017 ChronicCalculus of urinary tract (20 sources)Kidney stone; Translations: [Calculus of kidney]EpisodicDiabetes mellitus without complication (20 sources)Impaired fasting glycemia; Translations: [Impaired fasting glucose] EpisodicDiverticulosis and diverticulitis (20 sources)Diverticular disease; Translations: [Diverticulosis of colon (without mention of hemorrhage)]Onset: 312615-41-6990BgobvafW Codes: Adverse effects of medical drugs (20 sources)Adverse reaction to drug; Translations: [Adverse effect of unspecified drugs, medicaments and biological substances, initial encounter] 97-53-3139KprwyodeH Codes: Fall (20 sources)Fall; Translations: [Unspecified fall, initial encounter]06-04-2020 EpisodicEsophageal disorders (20 sources)Gastroesophageal reflux disease; Translations: [Gastro-esophageal reflux disease without esophagitis]Onset: 973117-53-2108ZzeyaasMrghnwidq hypertension (20 sources)Benign essential hypertension; Translations: [Benign essential hypertension]Onset: 473736-49-1508QfytxldSchgeotdf and duodenitis (20 sources)Gastritis; Translations: [Gastritis, unspecified, without bleeding] 53-10-2942NcaaszzgVpvzarph; including migraine (20 sources)Migraine; Translations: [Migraine, unspecified, not intractable, without status migrainosus]32-54-2606AfbdhpxNqyeb valve disorders (1 source)Tricuspid valve drlexnxbgxlku17-77-0673DnoyoevBjfntbmivskaa and screening for infectious disease (5 sources)Encounter for immunization; Translations: [Patient encounter status] Onset: 05-04-2021 Resolved: 57-48-5836IvxhprjfVrfh disorders (20 sources)Major depression, single episode; Translations: [Major depressive disorder, single episode, unspecified]41-76-2926QkrybcjWvmfcb and vomiting (2 sources)Nausea; Translations: [Nausea]Onset: 85-22-5239CbodoyzgNaiuxhqcgxw chest pain (20 sources)Chest pain; Translations: [Chest pain, unspecified]Onset: 03-14-2023 61-54-9806CfypvednVaabkerbapkcue (20 sources)Osteoarthritis of right knee joint; Translations: [Unilateral primary osteoarthritis, right knee]ChronicOther and ill-defined cerebrovascular disease (1 source)Cerebrovascular csvshaz62-02-3424KfzohrvMlzdu and unspecified benign neoplasm (20 sources)History of polyp of colon; Translations: [Personal history of colonic polyps]09-48-0108UmowhwzwJjyng and unspecified benign neoplasm (1 source)Personal history of colonic polyps; Translations: [History of colon polyps]EpisodicOther circulatory disease (1 source)History of transient ischemic -72-5511WmspjxqqZmamh connective tissue disease (4 sources)Bone spur of left foot; Translations: [Other enthesopathy of left foot and ankle]79-06-3366VywnsgyxVczee connective tissue disease (4 sources)Capsulitis of metatarsophalangeal joint of left foot; Translations: [Other enthesopathy of left foot and ankle]76-16-5185KywbibdnCiidu gastrointestinal disorders (1 source)Swollen abdomen; Translations: [Abdominal distension (gaseous)]Onset: 72-21-7052HxvtgjkbDaghz gastrointestinal disorders (2 sources)Diarrhea; Translations: [Diarrhea, unspecified]Onset: 12-03-2024 EpisodicOther gastrointestinal disorders (1 source)Abdominal -66-8524XglomqarEqjwe infections; including parasitic (20 sources)Personal history of other infectious and parasitic diseases; Translations: [History of 2019 novel coronavirus disease (COVID-19)]04-04-2020 EpisodicOther injuries and conditions due to external causes (2 sources)Unspecified injury of right wrist, hand and finger(s), initial encounterEpisodicOther injuries and conditions due to external causes (2 sources)Unspecified injury of right lower leg, initial encounterEpisodicOther liver diseases (1 source)Steatosis of -50-2761IuhmtejMewsh nervous system disorders (20 sources)Disturbance in speech; Translations: [Unspecified speech disturbances]63-44-5043OhyzubecUbxek nervous system disorders (20 sources)Numbness; Translations: [Anesthesia of skin]08-09-5708FllwkpcmXiuku non-traumatic joint disorders (3 sources)Pain in right knee; Translations: [Pain in right knee]Onset: 38-91-0195XwcrhmvtSqoch non-traumatic joint disorders (2 sources)Pain in right wristEpisodicOther nutritional; endocrine; and metabolic disorders (20 sources)Obesity; Translations: [Obesity, unspecified]ChronicOther nutritional; endocrine; and metabolic disorders (20 sources)Body mass index 30+ - obesity; Translations: [Body mass index (BMI) 33.0-33.9, adult]Onset: 267238-54-1035RqzdupkLshvn nutritional; endocrine; and metabolic disorders (9 sources)Lipoprotein [...] sources)High density lipoprotein deficiency ; Translations: [Lipoprotein deficiency]55-91-2299LuqyccdIqchv nutritional; endocrine; and metabolic disorders (20 sources)Obese class I; Translations: [Obesity, unspecified]25-06-9077Kgvaujt Other nutritional; endocrine; and metabolic disorders (2 sources)Body mass index (BMI) 32.0-32.9, adult; Translations: [Body mass index (BMI) 32.0-32.9, adult]Onset: 09-73-2253ByibprdDnpnp nutritional; endocrine; and metabolic disorders (1 source)Obesity caused by energy lojojdrka84-20-3542LapwsadRpqmo screening for suspected conditions (not mental disorders or infectious disease) (2 sources)Imaging of abdomen abnormal; Translations: [Abnormal findings on diagnostic imaging of other abdominal regions, including retroperitoneum]Onset: 98-75-2880FxgylrssSyjps skin disorders (20 sources)Cyst of scalp; Translations: [Follicular cyst of the skin and subcutaneous tissue, unspecified]65-14-3270IybsrjqsOgymz upper respiratory disease (1 source)Seasonal allergic yncpubdl88-72-7182HkqpjiaJoqru upper respiratory infections (10 sources)Sinusitis; Translations: [Chronic sinusitis, unspecified]Chronic Other upper respiratory infections (20 sources)Upper respiratory infection; Translations: [Acute upper respiratory infection, unspecified]08-24-3473RsbrchuxBliongkqlc disorders (not diabetes) (1 source)Cyst of aypgjpuc91-22-9371RbgnarlsJxxppzsc codes; unclassified (2 sources)Never smoked tobacco; Translations: [Other specified health status] Onset: 046712-40-4779OqjfklayPffcnxbu codes; unclassified (2 sources)Other specified health status; Translations: [Other specified health status]Onset: 02-04-5708VruskrsjRnwudoa and strains (20 sources)Sprain of knee; Translations: [Sprain of unspecified site of left knee, initial encounter]69-77-3424TtbhpumsKtavkpo (4 sources)Syncope and collapse; Translations: [SYNCOPE AND COLLAPSE]Onset: 02-92-7477WqtwsgnsLmoocli disorders (20 sources)Thyroid nodule; Translations: [Nontoxic single thyroid nodule] 74-26-0342XhhuyajTadwoxrtlbyk (2 sources)CONTACT W/AND (SUSP) EXPOS COVID-19; Translations: [CONTACT W/AND (SUSP) EXPOS COVID-19]Onset: 70-92-0711Jwqnc infection (1 source)COVID-19; Translations: [COVID-19]Onset: 04-16-2022 Past or Other Problems Problem ClassificationProblemDateDocumented DateEpisodic/ChronicUnclassified (3 sources)Never smoked tobacco; Translations: [Never a smoker]Unclassified (1 source)CONTACT W/AND (SUSP) EXPOS COVID-19; Translations: [CONTACT W/AND (SUSP) EXPOS COVID-19]Onset: 04-13-2022 Results Test NameValueInterpretationReference RangeFaciljesseLon 02-11-2025L Specimen: [id number] Received: 02/11/25 Status: MARYURI Winstonzach Num: [id number] Spec Type: Surgical Subm Dr: Stella Palmer DO Tissues: A Colon Biopsy (SM BOWEL BX) B Gastric Biopsy (GASTRIC BX) C Gastric Biopsy (GASTRIC POLYP) Procedures: HE/9, Gross/Micro L4/3, H PYLORI, IHC First AB Age/ Patient Sex Location Account Attending Physician Nancy Hooper 64/F [id number] Stella Palmer DO SPEC NUM: [id number] RECD: 02/11/25 STATUS: MARYURI ANGELCIA NUM: [id number] SERG: 02/11/[address] [facility] [address]: Stella Palmer DO ENTERED: 02/11/25 CAM KHAN: SPEC TYPE: Surgical DEPT: S ENTERED BY: [id number] RECV BY: [id number] ORDERED: HE/9, Gross/Micro L4/3, H PYLORI, IHC [...] submitted in a single cassette. (1, ns, [id number] A) ALPHONSO Specimen: [id number] Received: 02/11/25 Status: MARYURI Ludwig Num: [id number] Spec Type: Surgical Subm Dr: Stella Palmer DO Tissues: A Colon Biopsy (SM BOWEL BX) B Gastric Biopsy (GASTRIC BX) C Gastric Biopsy (GASTRIC POLYP) Procedures: HE/9, Gross/Micro L4/3, H PYLORI, IHC First AB Patient: Nancy Hooper [id number] (Continued) Specimen: [id number] Received: 02/11/25 (Continued) Gross Description (Continued) Signed (signature on file) Michelle Hendrix DO 02/12/25 1501 Specimen: [id number] Received: 02/11/25 Status: MARYURI Ludwig Num: [id number] Spec Type: Surgical Subm Dr: Stella Palmer DO Tissues: A Colon Biopsy (SM BOWEL BX) B Gastric Biopsy (GASTRIC BX) C Gastric Biopsy (GASTRIC POLYP) Procedures: HE/9, Gross/Micro L4/3, H PYLORI, IHC First AB Patient: Nancy Hooper [id number] (Continued) Specimen: [id number] Received: 02/11/25 (Continued) Gross Description (Continued) Part B is received in formalin labeled with the patients date of , and Rufus, gastric BX is a wisdom-gudino, focally erythematous, friable, 0.3 cm in greatest dimension tissue bit. The specimen is entirely submitted in a single cassette. (1, ns, [id number] B) Part C is received in formalin labeled with the patients date of , and Rufus, gastric polyp is a wisdom-gudino, focally erythematous, friable, 0.2 cm in greatest dimension tissue bit. The specimen is entirely submitted in a single cassette. (1, ns, [id number] C) Microscopic Description A-C: Microscopic examination performed CPT Codes 25705 x 3, 16564 Specimen: [id number] Received: 02/11/25 Status: MARYURI Ludwig Num: [id number] Spec Type: Surgical Subm Dr: Stella Palmer DO Tissues: A Colon Biopsy (SM BOWEL BX) B Gastric Biopsy (GASTRIC BX) C Gastric Biopsy (GASTRIC POLYP) Procedures: HE/9, Gross/Micro L4/3, H PYLORI, IHC First AB Patient: Nancy Hooper [id number] (Continued) Signed (signature on file) Michelle Almanza (more content not included)...[facility] Physician GroupX-ray reportOrdered By: Juwan Sanchez on 10-98-9591Votnv reportSELECT [facility]ICAL [facility] [address] [place] [address] XRay Report Signed Patient: Nancy Hooper MR#: [id number] : 1960 Acct:[id number] Age/Sex: 64 / F ADM Date: 5 Loc: [facility] Room: Type: [facility] Attending Dr: John Benson II, MD Copies to: John Benson MD~ Ordering Provider: John Benson MD Date of Service: 12/26/24 XR/XR knee RT 4V*: M25.561 - Pain in right knee 4 views right knee plain film COMPARISON: 08/08/2022 HISTORY: Right knee pain for months ACUTE FINDINGS: No acute findings DEGENERATIVE CHANGE: Progress of the medial degeneration with fjnw-ko-tklq contact patellofemoral and lateral degeneration superior patellar enthesophyte SOFT TISSUE FINDINGS: Unremarkable JOINT EFFUSION: Small POSTOP CHANGES: None BONE MINERALIZATION: Adequate XR/XR knee RT 4V* IMPRESSION: Progression of extensive medial degeneration Impression dictated by: Juwan Sanchez M.D. 12/26/2024 11:45 AM Dictation Location: [place] [address] Transcribed By: [facility] 12/26/24 1142 Dictated By: Juwan Sanchez DO 12/26/24 1144 Signed By: 12/26/24 1145 [facility] Centertudy reportSELECT [facility]ICAL [facility] [address] [place] [address] XRay Report Signed Patient: Nancy Hooper MR#: [id number] : 1960 Acct:[id number] Age/Sex: 64 / F ADM Date: 5 [...] Sanchez M.D. 12/26/2024 11:44 AM Dictation Location: [place] [address] Transcribed By: [facility] 12/26/24 1144 Dictated By: Juwan Sanchez DO 12/26/24 1142 Signed By: 12/26/24 1144 [facility] CenterXR knee RT 4V*on 38-94-5913MA knee RT 4V* [facility] [place] [address] XRay Report Signed Patient: Nancy Hooper MR#: [id number] 68 : 1960 Acct:[id number] Age/Sex: 64 / F ADM Date: 12/26/24 [...] CHANGE: Progress of the medial degeneration with sgau-gf-gaer contact patellofemoral and lateral degeneration superior patellar enthesophyte SOFT TISSUE FINDINGS: Unremarkable JOINT EFFUSION: Small POSTOP CHANGES: None BONE MINERALIZATION: Adequate XR/XR knee RT 4V* IMPRESSION: Progression of extensive medial degeneration Impression dictated by: Juwan Sanchez M.D. 12/26/2024 11:45 AM Dictation Location: [place] [address] Transcribed By: [facility] 12/26/24 1145 Dictated By: Juwan Sanchez DO 12/26/24 1144 Signed By: 12/26/24 1145[facility] Physician GroupXR pelvis 1-2Von 52-53-9851EY pelvis 1-2VSELECT [facility] [address] [place] [address] XRay Report Signed Patient: Nancy Hooper MR#: [id number] 68 : 1960 Acct:[id number] Age/Sex: 64 / F ADM Date: 12/26/24 Loc: [facility] Room: Type: [facility] Attending Dr: John Benson II, MD Copies [...] Sanchez M.D. 12/26/2024 11:44 AM Dictation Location: [place] [address] Transcribed By: [facility] 12/26/24 1144 Dictated By: Juwan Sanchez DO 12/26/24 1142 Signed By: 12/26/24 1144[facility] Physician GroupAppearance of UrineOrdered By: Rafael Salamanca on 21-67-0151Siaztypyxi (U)ClearNormalClearRegional Medical CenterComment on above:Order Comment: Name Collection Type:: Clean- Voided MidstreamPerformed By: #### CUU, ADDONUAPLUS ####[facility] [id number] [id number] USABacteria [Presence] in Urine by AutomatedOrdered By: Rafael Salamanca on 61-11-9657Jfxgttnj Auto Ql (U)None seen [HPF]None SeenRegional Medical CenterBilirubin Test strip Ql (U) Ordered By: Rafael Salamanca on 69-02-7082Tykofppog Ql (U)NegativeNegativeRegional Medical CenterCalcium oxalate crystals [Presence] in Urine by Computer assisted methodOrdered By: Rafael Salamanca on 28-63-9284Mqsazoo oxalate crystals Computer assisted Ql (U)3+ [HPF]Regional Medical CenterColor of Urine by AutoOrdered By: Rafael Salamanca on 79-94-8305Zonlj (U)Light-yellowNormalYellow Regional Medical CenterComment on above:Order Comment: Name Collection Type:: Clean-Voided MidstreamPerformed By: #### CUU, ADDONUAPLUS ####[facility] [id number] [id number] USADipstick and Microscopicon 80-06-5602Yldtswmp,UrineNone SeenNormalNone SeenThe [facility] Physician GroupComment on above:Order Comment: Name Collection Type:: Clean- Voided MidstreamPerformed By: #### CUU, ADDONUAPLUS ####[facility] [address] [id number] USABilirubin,UrineNegativeNormal NegativeThe [facility] Physician GroupComment on above:Order Comment: Name Collection Type:: Clean-Voided MidstreamPerformed By: #### CUU, ADDONUAPLUS ####[address] USACalcium Oxalate Crystals,Urine3+ [HPF]NormalLarkin Community Hospital Behavioral Health Services Physician GroupComment on above:Order Comment: Name Collection Type:: Clean-Voided MidstreamPerformed By: #### CUU, ADDONUAPLUS ####[address] USAGlucose Ql (U)NormalNormalNormalThSt. Joseph [facility] Medical Center Physician GroupComment on above:Order Comment: Name Collection Type:: Clean- Voided MidstreamPerformed By: #### CUU, ADDONUAPLUS ####[address] USAHyaline Casts,UrineNoneNormal 0-8The [facility] Physician GroupComment on above:Order Comment: Name Collection Type:: Clean-Voided MidstreamPerformed By: #### CUU, ADDONUAPLUS ####[address] USAMucus,UrineRareNormal The [facility] Physician GroupComment on above:Order Comment: Name Collection Type:: Clean-Voided MidstreamResult Comment: PERFORMED BY: [facility] [address] [place] [address] PATHOLOGIST HOT PLATE PRESS OPERATOR BASSAM BRADFORD M.D.Performed By: #### CUU, ADDONUAPLUS ####[address] [id number] USANitrite,UrineNegativeNormal NegativeLarkin Community Hospital Behavioral Health Services Physician GroupComment on above:Order Comment: Name Collection Type:: Clean-Voided MidstreamPerformed By: #### CUU, ADDONUAPLUS ####[address] [id number] USAOccult Blood,UrineTraceNormalNegativeThe [facility] Physician GroupComment on above: Order Comment: Name Collection Type:: Clean-Voided MidstreamPerformed By: #### CUU, ADDONUAPLUS ####[address] [address] USAProtein,UrineNegativeNormalNegativeThe [facility] Physician GroupComment on above:Order Comment: Name Collection Type:: Clean-Voided MidstreamPerformed By: #### CUU, ADDONUAPLUS ####[address] USARBC,Ohrtf5-9Vpunxp4-1Sud [facility] Physician Group Comment on above:Order Comment: Name Collection Type:: Clean-Voided Midstream Performed By: #### CUU, ADDONUAPLUS ####[address] USASpecificy Deane,Urine1.065Qvei0.001-1.030The [facility] Physician GroupComment on above:Order Comment: Name Collection Type:: Clean-Voided MidstreamPerformed By: #### CUU, ADDONUAPLUS ####[address] USASquamous Epithelial Cell,Urine 3-3Qrkmsk9-5Bcn [facility] Physician GroupComment on above:Order Comment: Name Collection Type:: Clean-Voided MidstreamPerformed By: #### CUU, ADDONUAPLUS ####[address] [place] Urobilinogen,UrineNormalNormalNormalThe [facility] Physician GroupComment on above:Order Comment: Name Collection Type:: Clean-Voided MidstreamPerformed By: #### CUU, ADDONUAPLUS ####[address] USAWBC,Pnbfg0-3Hopauu4-1Vfw [facility] Physician Group Comment on above:Order Comment: Name Collection Type:: Clean-Voided Midstream Performed By: #### CUU, ADDONUAPLUS ####[address] USAEpithelial cells.squamous [#/area] in Urine sediment by Automated countOrdered By: Rafael Salamanca on 37-77-4385Xkxahackve cells.squamous Auto (Urine sed) [#/Area]1-2 [HPF]0-2FDelaware County HospitalErythrocytes [#/area] in Urine sediment by Automated countOrdered By: Rafael Salamanca on 18-99-5756JXO Auto (Urine sed) [#/Area]1-2 [HPF]0-4FDelaware County HospitalGlucose [Mass/volume] in Urine by Test stripOrdered By: Rafael Salamanca on 54-65-5982Keolmqd Test strip (U) [Mass/Vol]Normal mg/dLNormal Regional Medical CenterHemoglobin Test strip Ql (U)Ordered By: Rafael Salamanca on 69-62-5686Wtudfvpocw Ql (U)TraceHighNegACMC Healthcare SystemHyaline casts [#/area] in Urine sediment by Automated countOrdered By: Rafael Salamanca on 19-94-7577Ukhwees casts Auto (Urine sed) [#/Area]None [LPF]0-8 Regional Medical CenterKetones [Presence] in Urine by Test strip Ordered By: Rafael Salamanca on 29-74-8239Ygubkkv Ql (U)NegativeNormalNegative [facility] Medical CenterComment on above:Order Comment: Name Collection Type:: Clean-Voided MidstreamPerformed By: #### CUU, ADDONUAPLUS ####[facility] [address] [facility], WQ[address] USALeukocyte esterase [Presence] in Urine by Test stripOrdered By: Rafael Salamanca on 31-30-4539Fphkgopsj esterase Test strip Ql (U)NegativeNormalNegACMC Healthcare SystemComment on above:Order Comment: Name Collection Type:: Clean-Voided MidstreamPerformed By: #### CUU, ADDONUAPLUS ####[facility] [address] [facility], [id number] USALeukocytes [#/area] in Urine sediment by Automated countOrdered By: Rafael Salamanca on 99-74-8033DYJ Auto (Urine sed) [#/Area]3-4 [HPF]0-4FDelaware County HospitalMucus [Presence] in Urine by AutomatedOrdered By: Rafael Salamanca on 03-46-9160Iiqde Auto Ql (U)Rare [LPF] Regional Medical CenterNitrite Test strip Ql (U)Ordered By: Rafael Salamanca on 36-03-5817Xllfnph Ql (U)NegativeNegativeRegional Medical Center Protein Test strip (U) [Mass/Vol]Ordered By: Rafael Salamanca on 84-62-8905Vbdicqq (U) [Mass/Vol]NegativeNegativeBarney Children's Medical Centerpecific gravity Test strip (U) [Rel density]Ordered By: Rafael Salamanca on 61-69-9233Uuvpaynj gravity (U) [Rel density]1.429Slqr7.001-1.030[facility] Urine Cultureon 70-44-7976Dfsomtyv identified Cx Nom (U)<9,000 colonies/ml mixed bacterial skin contaminants 2 Days PERFORMED BY: [facility] [address] [place] [address] PATHOLOGIST HOT PLATE PRESS OPERATOR BASSAM BRADFORD M.D.NormalLarkin Community Hospital Behavioral Health Services Physician GroupComment on above: Performed By: #### CUU, ADDONUAPLUS ####[place] [address] [place], [place] USAUrine cultureOrdered By: Rafael Salamanca on 12-24-2024 Bacteria identified Cx Nom (U)2 DaysRegional Medical Center Urobilinogen Test strip (U) [Mass/Vol]Ordered By: Rafael Salamanca on 12-24-2024 Urobilinogen (U) [Mass/Vol]Normal mg/dLNormalRegional Medical CenterpH of Urine by Test stripOrdered By: Rafael Salamanca on 73-60-9827uG (U)5.5 [pH]Normal 5.0-9.0Regional Medical CenterComment on above:Order Comment: Name Collection Type:: Clean-Voided MidstreamPerformed By: #### CUU, ADDONUAPLUS ####[place] [address] [place], [place] USAAlanine aminotransferase [Enzymatic activity/volume] in Serum or PlasmaOrdered By: Renny Walton on 31-98-7632KYC [Catalytic activity/Vol]16 U/LNormal7-52Regional Medical CenterComment on above:Performed By: #### KARLOSAR CBC, EBS A1C, PILLAR LIPID, PILLAR CMP #### [facility] [address] [place] [id number] USAAlbumin [Mass/volume] in Serum or Plasma by Bromocresol green (BCG) dye binding methoOrdered By: Renny Walton on 08-13-5976Euqcawc BCG dye [Mass/Vol]4.2 g/dL3.5-5.7FDelaware County HospitalAlkaline phosphatase [Enzymatic activity/volume] in Serum or PlasmaOrdered By: Renny Walton on 40-01-6558UAY [Catalytic activity/Vol]59 U/HBqonqf74-309ZpjpxvtjyRegional Medical CenterComment on above:Performed By: #### MARYANN CBC, EBS A1C, PILLAR LIPID, PILLAR CMP #### [facility] [address] [place] [id number] USAAppearance of UrineOrdered By: Rafael Salamanca on 12-20-2024 Appearance (U)ClearNormalClearRegional Medical CenterComment on above: Order Comment: Name Collection Type:: Clean-Voided MidstreamPerformed By: #### CUU, ADDONUAPLUS #### [facility] [address] [place] [id number] USAAspartate aminotransferase [Enzymatic activity/volume] in Serum or PlasmaOrdered By: Renny Walton on 57-31-3995EMR [Catalytic activity/Vol] 13 U/WGrjvis22-25XcbslvzixRegional Medical CenterComment on above:Performed By: #### PILLAR CBC, EBS A1C, PILLAR LIPID, PILLAR CMP #### [facility] [address] [place] [id number] USABacteria [Presence] in Urine by AutomatedOrdered By: Rafael Salamanca on 48-47-2958Hmkxbqdq Auto Ql (U)None seen [HPF]None SeenRegional Medical CenterBasophils [#/volume] in Blood by Automated countOrdered By: Renny Walton on 98-55-9260Apnwkxirz (Bld) [#/Vol]0.1 10*3/uLNormal0.0-0.2 Regional Medical CenterComment on above:Result Comment: PERFORMED BY: [place] [address] PATHOLOGIST HOT PLATE PRESS OPERATOR BASSAM BRADFORD M.D.Performed By: #### PILLAR CBC, EBS A1C, PILLAR LIPID, PILLAR CMP #### [place] [address] USABasophils/100 leukocytes in Blood by Automated count Ordered By: Renny Walton on 92-16-2786Jkuzgqbor/100 WBC (Bld)1.1 %Normal.Regional Medical CenterComment on above:Performed By: #### PILLAR CBC, EBS A1C, PILLAR LIPID, PILLAR CMP #### [place] [address] USABilirubin Test strip Ql (U)Ordered By: Rafael Salamanca on 06-50-1296Dhilnswwa Ql (U)NegativeNegativeRegional Medical Center Bilirubin.total [Mass/volume] in Serum or PlasmaOrdered By: Renny Walton on 75-86-9596Gjopvbvnk [Mass/Vol]0.5 mg/dLNormal0.3-1.0Reg[facility] Medical CenterComment on above:Performed By: #### PILLAR CBC, EBS A1C, PILLAR LIPID, PILLAR CMP #### [place] [address] USABlood estimated average glucose determination by estimation from glycated hemoglobinOrdered By: Renny Walton on 08-27-8622Dxhbxmy glucose Estimated from glycated hemoglobin (Bld) [Mass/Vol]117 mg/dLRegional Medical CenterCalcium [Mass/volume] in Serum or PlasmaOrdered By: Renny Walton on 53-45-4837Godjplw [Mass/Vol]9.6 mg/dLNormal8.6-10.3FDelaware County HospitalComment on above:Performed By: #### PILLAR CBC, EBS A1C, PILLAR LIPID, PILLAR CMP #### [address] [place] [address] USACarbon dioxide, total [Moles/volume] in Serum or Plasma Ordered By: Renny Walton on 24-65-6779FX2 [Moles/Vol]28.9 mmol/BDoacrg32.0-31.0 Regional Medical CenterComment on above:Performed By: #### PILLAR CBC, EBS A1C, PILLAR LIPID, PILLAR CMP #### [facility] [address] [id number] USAChloride [Moles/volume] in Serum or PlasmaOrdered By: Renny Walton on 96-89-5000Vrwymlpd [Moles/Vol]106 mmol/BZdtwqz04-422VooyktqwyRegional Medical CenterComment on above:Performed By: #### PILLAR CBC, EBS A1C, PILLAR LIPID, PILLAR CMP #### [facility] [address] [id number] USACholesterol [Mass/volume] in Serum or PlasmaOrdered By: Renny Walton on 11-26-6260Egbzhhskzai [Mass/Vol]178 mg/dRPohtbg536-728MhkqmmxkjRegional Medical CenterComment on above:Chol less than 200 mg/dl low riskChol 201-239 mg/dl borderline riskChol 240 mg/dl and greater high riskResult Comment: Chol less than 200 mg/dl low risk Chol 201-239 mg/dl borderline risk Chol 240 mg/dl and greater high riskPerformed By: #### PILLAR CBC, EBS A1C, PILLAR LIPID, PILLAR CMP #### [facility] [address] [id number] USACholesterol in HDL [Mass/volume] in Serum or PlasmaOrdered By: Renny Walton on 09-52-5524Swkjijuiajc in HDL [Mass/Vol]52 mg/hVVljwed42-01 Regional Medical CenterComment on above:HDL CHOL ATP-III CLASSIFICATION Cardiovascular RiskHDL > or equal to 60 mg/dL LOWHDL < 40 mg/dL HIGHResult Comment: HDL CHOL ATP-III CLASSIFICATION Cardiovascular Risk HDL > or equal to 60 mg/dL LOW HDL < 40 mg/dL HIGHPerformed By: #### PILLAR CBC, EBS A1C, PILLAR LIPID, PILLAR CMP #### [facility] [address] [place] [address] USACholesterol in LDL Calc [Mass/Vol]Ordered By: Renny Walton on 06-88-8190Jlgbpipcgaf in LDL [Mass/Vol]90 mg/dL0-100Regional Medical CenterComment on above:LDL ATP III CLASSIFICATIONLDL less than 100 mg/dL OptimalLDL 100-129 mg/dL Near or above mmwpcwcWVK534-866 mg/dL Borderline highLDL 160-189 mg/dL HighLDL greater than 189 mg/dL Very highCholesterol in VLDL Calc [Mass/Vol]Ordered By: Renny Walton on 16-87-7377Qvfhqvldljc in VLDL [Mass/Vol]35 mg/dLRegional Medical CenterColor of Urine by AutoOrdered By: Rafael Salamanca on 44-22-3732Hvhwo (U)Light-yellowNormalYellowRegional Medical CenterComment on above:Order Comment: Name Collection Type:: Clean-Voided MidstreamPerformed By: #### CUU, ADDONUAPLUS #### [facility] [address] [place] [address] USACreatinine [Mass/volume] in Serum or PlasmaOrdered By: Renny Walton on 72-49-9263Pdlzsxklhm [Mass/Vol]0.61 mg/dLNormal0.60-1.20Regional Medical CenterComment on above:Performed By: #### PILLAR CBC, EBS A1C, PILLAR LIPID, PILLAR CMP #### [facility] [address] [place] [address] USADipstick and Microscopicon 12-27-7351Qnetnlid,UrineNone SeenNormalNone SeenThe [facility] Physician GroupComment on above:Order Comment: Name Collection Type:: Clean-Voided MidstreamPerformed By: #### CUU, ADDONUAPLUS #### [facility] [address] [place] [address] USABilirubin,UrineNegativeNormalNegativeThe [facility] Physician GroupComment on above:Order Comment: Name Collection Type:: Clean- Voided MidstreamPerformed By: #### CUU, ADDONUAPLUS #### [place] [address] USAGlucose Ql (U)NormalNormalNormalThe [facility] Physician GroupComment on above:Order Comment: Name Collection Type:: Clean-Voided MidstreamPerformed By: #### CUU, ADDONUAPLUS #### [place] [address] USAHyaline Casts,UrineNoneNormal0-8The [facility] Physician GroupComment on above:Order Comment: Name Collection Type:: Clean-Voided MidstreamPerformed By: #### CUU, ADDONUAPLUS #### [place] [address] USAMucus,UrineRareNormalThe [facility] Physician GroupComment on above:Order Comment: Name Collection Type:: Clean-Voided MidstreamResult Comment: PERFORMED BY: [place] [address] PATHOLOGIST HOT PLATE PRESS OPERATOR BASSAM BRADFORD M.D.Performed By: #### CUU, ADDONUAPLUS #### [place] [address] USANitrite,UrineNegativeNormalNegativeLarkin Community Hospital [facility] Services Physician GroupComment on above:Order Comment: Name Collection Type:: Clean-Voided MidstreamPerformed By: #### CUU, ADDONUAPLUS #### [place] [address] USAOccult Blood,Urine1+NormalNegativeThe [facility] Physician GroupComment on above:Order Comment: Name Collection Type:: Clean-Voided MidstreamResult Comment: PERFORMED BY: [place] [address] PATHOLOGIST HOT PLATE PRESS OPERATOR BASSAM BRADFORD M.D.Performed By: #### CUU, ADDONUAPLUS #### [place] [address] USAProtein,UrineNegativeNormalNegativeThe [facility] Physician GroupComment on above:Order Comment: Name Collection Type:: Clean-Voided MidstreamPerformed By: #### CUU, ADDONUAPLUS #### [place] [address] USARBC,Blazi2-5Dgvtpp1-5Ldn [facility] Physician GroupComment on above:Order Comment: Name Collection Type:: Clean-Voided MidstreamPerformed By: #### CUU, ADDONUAPLUS #### [place] [address] USASpecificy Deane,Urine1.326Ptlhcc1.001-1.030The [facility] Physician GroupComment on above:Order Comment: Name Collection Type:: Clean- Voided MidstreamPerformed By: #### CUU, ADDONUAPLUS #### [place] [address] USASquamous Epithelial Cell,Ltkuz1-5Ekvjph3-7Lit [facility] Physician GroupComment on above:Order Comment: Name Collection Type:: Clean- Voided MidstreamPerformed By: #### CUU, ADDONUAPLUS #### [place] [address] USAUrobilinogen,UrineNormalNormalNormAdventHealth Daytona Beach Physician GroupComment on above:Order Comment: Name Collection Type:: Clean- Voided MidstreamPerformed By: #### CUU, ADDONUAPLUS #### [place] [address] USAWBC,Jxfhr8-1Uhiyam8-9Gbp [facility] Physician GroupComment on above:Order Comment: Name Collection Type:: Clean-Voided MidstreamPerformed By: #### CUU, ADDONUAPLUS #### [place] [address] USAEBS [address] with [address] Gluon 43-66-2999Dfzmmoi [Mass/Vol]117 mg/dLNoNovant Health [facility] Physician GroupComment on above:Result Comment: PERFORMED BY: [place] [address] PATHOLOGIST HOT PLATE PRESS OPERATOR BASSAM BRADFORD M.D.Performed By: #### PILLAR CBC, EBS A1C, PILLAR LIPID, PILLAR CMP ####[facility] [address] [place] [address] USAEmployee Comp Metabolic Panelon 89-36-4202Pmyeomh [Mass/Vol]4.2 g/dLNormal 3.5-5.7The [facility] Physician GroupComment on above:Performed By: #### PILLAR CBC, EBS A1C, PILLAR LIPID, PILLAR CMP #### [facility] [address] [place] [address] USAGFR/1.73 sq M.predicted MDRD (S/P/Bld) [Vol rate/Area] mL/min/{1.73_m2}NormalThe [facility] Physician GroupComment on above:Performed By: #### PILLAR CBC, EBS A1C, PILLAR LIPID, PILLAR CMP #### [facility] [address] [place] [address] USAEmployee Complete Blood Counton 23-45-8963Nlpw Corpuscular HGB Conc33.6 g/mJQrbvwx77.0-35.0The [facility] Physician GroupComment on above: Performed By: #### PILLAR CBC, EBS A1C, PILLAR LIPID, PILLAR CMP #### [facility] [address] [place] [address] USANRBC%0.0 /100{WBC}Normal0-0.5The [facility] Physician Group Comment on above:Performed By: #### PILLAR CBC, EBS A1C, PILLAR LIPID, PILLAR CMP #### [facility] [address] [place] [address] USAWhite Blood Count7.4 [CFU]/mLNormal3.8-11.6The [facility] Physician GroupComment on above:Performed By: #### PILLAR CBC, EBS A1C, PILLAR LIPID, PILLAR CMP #### [facility] [address] [place] [address] USAEmployee Lipid Profileon 79-45-2631KMH Cholesterol,Qflnotfbfq80 mg/dLNormal0-100The [facility] Physician GroupComment on above:Result Comment: LDL ATP III CLASSIFICATION LDL less than 100 mg/dL Optimal LDL 100-129 mg/dL Near or above optimal LDL 130-159 mg/dL Borderline high LDL 160-189 mg/dL High LDL greater than 189 mg/dL Very highPerformed By: #### PILLAR CBC, EBS A1C, PILLAR LIPID, PILLAR CMP #### [facility] [address] [id number] USATriglyceride w/Pfqhpc303 mg/dLHigh0-149The [facility] Physician GroupComment on above:Result Comment: TRIG ATP III CLASSIFICATION TRIG less than 150 mg/dL Normal TRIG 150-199 mg/dL Borderline high TRIG 200-500 mg/dL High TRIG greater than 500 mg/dL Very high Standard traceable to the Center for Disease Conrtrol and Prevention (CDC) test method.Performed By: #### PILLAR CBC, EBS A1C, PILLAR LIPID, PILLAR CMP #### [facility] [address] [place] [address] USAVLDL MMKRMEATIGR84 mg/dLNormalThe [facility] Physician GroupComment on above:Performed By: #### PILLAR CBC, EBS A1C, PILLAR LIPID, PILLAR CMP #### [facility] [address] [place] [address] USAEosinophils [#/volume] in Blood by Automated countOrdered By: Renny Walton on 01-48-1732Dmcllfmrctq (Bld) [#/Vol]0.1 10*3/uLNormal0.0-0.45 [facility] Medical CenterComment on above:Performed By: #### PILLAR CBC, EBS A1C, PILLAR LIPID, PILLAR CMP #### [facility] [address] [id number] USAEosinophils/100 leukocytes in Blood by Automated count Ordered By: Renny Walton on 85-33-8264Xtqtftyyacr/100 WBC (Bld)1.6 %Normal. Regional Medical CenterComment on above:Performed By: #### PILLAR CBC, EBS A1C, PILLAR LIPID, PILLAR CMP #### [facility] [address] [place] [address] USAEpithelial cells.squamous [#/area] in Urine sediment by Automated countOrdered By: Rafael Salamanca on 41-50-0231Agafxtrqsr cells.squamous Auto (Urine sed) [#/Area]1-2 [HPF]0-2FDelaware County Hospital Erythrocyte distribution width [Ratio] by Automated countOrdered By: Renny Walton on 00-93-6365Brztzphuzmo distribution width (RBC) [Ratio]13.3 %Agjsge49.9-15.3 [facility] Medical CenterComment on above:Performed By: #### KARLOSAR CBC, EBS A1C, PILLAR LIPID, PILLAR CMP #### [facility] [address] [id number] USAErythrocytes [#/area] in Urine sediment by Automated count Ordered By: Rafael Salamanca on 34-04-3779PKS Auto (Urine sed) [#/Area]1-2 [HPF]0-4 Regional Medical CenterErythrocytes [#/volume] in Blood by Automated countOrdered By: Renny Walton on 46-27-2629JIV (Bld) [#/Vol]4.84 10*6/uLNormal 3.60-5.00[facility] Medical CenterComment on above:Performed By: #### PILLAR CBC, EBS A1C, PILLAR LIPID, PILLAR CMP #### [facility] [address] [id number] USAGlucose [Mass/volume] in Serum or PlasmaOrdered By: Renny Walton on 59-80-1913Sxpcmju [Mass/Vol]111 mg/oJEubo82-005ZmkqstcheRegional Medical CenterComment on above:ADA recommended reference rangeResult Comment: ADA recommended reference rangePerformed By: #### PILLAR CBC, EBS A1C, PILLAR LIPID, PILLAR CMP #### [facility] [address] [id number] USAGlucose [Mass/volume] in Urine by Test stripOrdered By: Rafael Salamanca on 39-55-4046Oqpbdue Test strip (U) [Mass/Vol]Normal mg/dLNormal Regional Medical CenterHematocrit [Volume Fraction] of Blood by Automated countOrdered By: Renny Walton on 17-47-2267Ankxadjlml (Bld) [Volume fraction]43.0 %Uiupgs82.0-46.4FDelaware County HospitalComment on above: Performed By: #### PILLAR CBC, EBS A1C, PILLAR LIPID, PILLAR CMP #### [facility] [address] [place] [address] USAHemoglobin A1c measurementOrdered By: Renny Walton on 28-89-8192HhB0s (Bld) [Mass fraction]5.7 %High4.3-5.6FDelaware County HospitalComment on above:Increased risk for diabetes: 5.7 - 6.4diabetes: >6.4glycemic control for adults with diabetes: <7.0Result Comment: Increased risk for diabetes: 5.7 - 6.4 diabetes: >6.4 glycemic control for adults with diabetes: <7.0Performed By: #### PILLAR CBC, EBS A1C, PILLAR LIPID, PILLAR CMP ####[facility] [address] [place] [address] USAHemoglobin Test strip Ql (U)Ordered By: Rafael Salamanca on 93-75-7577Ilxujaulbn Ql (U)1+HighNegACMC Healthcare System Hemoglobin [Mass/volume] in BloodOrdered By: Renny Walton on 11-42-2240Xmftxlodfx (Bld) [Mass/Vol]14.5 g/aEHubakk64.8-15.4FDelaware County HospitalComment on above:Performed By: #### PILLAR CBC, EBS A1C, PILLAR LIPID, PILLAR CMP #### [facility] [address] [place] [address] USAHyaline casts [#/area] in Urine sediment by Automated countOrdered By: Rafael Salamanca on 05-93-2684Ellxbor casts Auto (Urine sed) [#/Area]None [LPF]0-8Regional Medical CenterKetones [Presence] in Urine by Test stripOrdered By: Rafael Salamanca on 86-08-0851Fouxiyl Ql (U)Negative NormalNegACMC Healthcare SystemComment on above:Order Comment: Name Collection Type:: Clean-Voided MidstreamPerformed By: #### CUU, ADDONUAPLUS #### [facility] [address] [id number] USALeukocyte esterase [Presence] in Urine by Test strip Ordered By: Rafael Cheikh on 75-03-2405Sadkaniod esterase Test strip Ql (U) NegativeNormalNegativeRegional Medical CenterComment on above:Order Comment: Name Collection Type:: Clean-Voided MidstreamPerformed By: #### CUU, ADDONUAPLUS #### [facility] [address] [place] [address] USALeukocytes [#/area] in Urine sediment by Automated count Ordered By: Rafael Salamanca on 09-80-6001RDG Auto (Urine sed) [#/Area]1-2 [HPF]0-4 [facility] Medical CenterLeukocytes [#/volume] corrected for nucleated erythrocytes in Blood by Automated counOrdered By: Renny Walton on 86-09-3823AGZ corrected for nucl RBC Auto (Bld) [#/Vol]7.4 10*3/uL3.8-11.6FDelaware County HospitalLeukocytes [#/volume] in Blood by Automated countOrdered By: Renny Walton on 29-25-1048RLN (Bld) [#/Vol]7.4 10*3/uLNormal3.8-11.6FDelaware County HospitalComment on above:Performed By: #### PILLAR CBC, EBS A1C, PILLAR LIPID, PILLAR CMP #### [facility] [address] [place], [place] [id number] USALymphocytes [#/volume] in Blood by Automated countOrdered By: Renny Walton on 69-03-5526Lobrcggjksy (Bld) [#/Vol]2.4 10*3/uLNormal1.00-4.8 [facility] Medical CenterComment on above:Performed By: #### PILLAR CBC, EBS A1C, PILLAR LIPID, PILLAR CMP #### [facility] [address] [phone] USALymphocytes/100 leukocytes in Blood by Automated count Ordered By: Renny Walton on 60-67-2624Nypwvzooohf/100 WBC (Bld)32.1 %Normal. Regional Medical CenterComment on above:Performed By: #### PILLAR CBC, EBS A1C, PILLAR LIPID, PILLAR CMP #### [facility] [address] [Entitic mass] by Automated countOrdered By: Renny Walton on 53-48-4747ODL (RBC) [Entitic mass]29.9 iqPxdyfr75.7-34.3FDelaware County HospitalComment on above:Performed By: #### PILLAR CBC, EBS A1C, PILLAR LIPID, PILLAR CMP #### [facility] [address] Auto (RBC) [Mass/Vol]Ordered By: Renny Walton on 26-44-3712XSIS (RBC) [Mass/Vol]33.6 g/dL32.0-35.0[facility] CenterV [Entitic volume] by Automated countOrdered By: Renny Walton on 00-61-1555XJU (RBC) [Entitic vol]88.8 zGRiohwc33-033GvjeltvruRegional Medical CenterComment on above:Performed By: #### PILLAR CBC, EBS A1C, PILLAR LIPID, PILLAR CMP #### [facility] [address] [place] [address] USAMonocytes [#/volume] in Blood by Automated countOrdered By: Renny Walton on 93-57-0331Ooghpbxkr (Bld) [#/Vol]0.6 10*3/uLNormal0.0-0.8 [facility] Medical CenterComment on above:Performed By: #### PILLAR CBC, EBS A1C, PILLAR LIPID, PILLAR CMP #### [facility] [address] [place] [phone] USAMonocytes/100 leukocytes in Blood by Automated count Ordered By: Renny Walton on 53-43-8707Mvcapzwkg/100 WBC (Bld)8.6 %Normal.Reg[facility] Medical CenterComment on above:Performed By: #### PILLAR CBC, EBS A1C, PILLAR LIPID, PILLAR CMP #### [facility] [address] [place] [address] USAMucus [Presence] in Urine by AutomatedOrdered By: Rafael Salamanca on 98-75-7731Mxcvs Auto Ql (U)Rare [LPF][facility] Neutrophils [#/volume] in Blood by Automated countOrdered By: Renny Walton on 91-63-1664Ockklljhmlr (Bld) [#/Vol]4.2 10*3/uLNormal1.8-7.7FDelaware County HospitalComment on above:Performed By: #### PILLAR CBC, EBS A1C, PILLAR LIPID, PILLAR CMP #### [facility] [address] [place] [address] USANeutrophils/100 leukocytes in Blood by Automated count Ordered By: Renny Walton on 00-55-1932Rwadoojbgrv/100 WBC (Bld)56.6 %Normal. Regional Medical CenterComment on above:Performed By: #### PILLAR CBC, EBS A1C, PILLAR LIPID, PILLAR CMP #### [facility] [address] [place], [place] [id number] USANitrite Test strip Ql (U)Ordered By: Rafael Salamanca on 71-21-7934Bvlnvgn Ql (U)NegativeNegativeRegional Medical CenterNo Panel InformationOrdered By: Renny Walton on 46-20-7255Vnefovskn GFR (CKD-EPI)> 60.0 mL/MinRegional Medical CenterPharmacy Creatinine Clearance (Chem N/AFDelaware County HospitalNucleated erythrocytes [Presence] in Blood by Automated countOrdered By: Renny Walton on 70-14-2986Bdpablfmu RBC Auto Ql (Bld)0.0 /100{WBC}0-0.5FDelaware County HospitalPlatelet mean volume [Entitic volume] in Blood by Automated countOrdered By: Renny Walton on 12-20-2024 Platelet mean volume (Bld) [Entitic vol]6.7 fLNormal6.3-10.7FDelaware County HospitalComment on above:Performed By: #### PILLAR CBC, EBS A1C, PILLAR LIPID, PILLAR CMP #### [facility] [address] [place], [place] [address] USAPlatelets [#/volume] in Blood by Automated countOrdered By: Renny Walton on 93-41-9500Pnzyhqbsy (Bld) [#/Vol]332 10*3/rEPzcdic507-251 [facility] Medical CenterComment on above:Performed By: #### PILLAR CBC, EBS A1C, PILLAR LIPID, PILLAR CMP #### [facility] [address] [place] [address] USAPotassium [Moles/volume] in Serum or PlasmaOrdered By: Renny Walton on 13-07-9049Uznxyxfpp [Moles/Vol]4.0 mmol/LNormal3.5-5.1FDelaware County HospitalComment on above:Performed By: #### PILLAR CBC, EBS A1C, PILLAR LIPID, PILLAR CMP #### [facility] [address] [place] [address] USAProtein Test strip (U) [Mass/Vol]Ordered By: Rafael Salamanca on 51-52-1703Hkbghrw (U) [Mass/Vol]NegativeNegativeRegional Medical CenterProtein [Mass/volume] in Serum or PlasmaOrdered By: Renny Walton on 15-14-4172Xvlmhdm [Mass/Vol]7.0 g/dLNormal6.4-8.9Reg[facility] Medical CenterComment on above:Performed By: #### PILLAR CBC, EBS A1C, PILLAR LIPID, PILLAR CMP #### [facility] [address] [place] [address] USASerum globulin measurement by calculation (mass/volume) Ordered By: Renny Walton on 60-52-0940Xawelwwx (S) [Mass/Vol]2.8 g/dLNormal [facility] Medical CenterComment on above:Performed By: #### PILLAR CBC, EBS A1C, PILLAR LIPID, PILLAR CMP #### [facility] [address] [place] [address] USASerum or plasma albumin/globulin mass ratioOrdered By: Renny Walton on 07-15-9927Sutnbjc/Globulin [Mass ratio]1.5 {ratio}NormalRegional Medical CenterComment on above:Performed By: #### PILLAR CBC, EBS A1C, PILLAR LIPID, PILLAR CMP #### [facility] [address] [place] [id number] USASerum or plasma anion gap determinationOrdered By: Renny Walton on 24-44-8133Rgjsm gap [Moles/Vol]9.1 mmol/LNormal6.0-15.0[facility] Medical CenterComment on above:Performed By: #### PILLAR CBC, EBS A1C, PILLAR LIPID, PILLAR CMP #### [facility] [address] [place] [address] USASerum or plasma total cholesterol/high density lipoprotein (HDL) cholesterol mass ratOrdered By: Renny Walton on 12-20-2024 Cholesterol.total/Cholesterol in HDL [Mass ratio]3.4 {ratio}Normal<5.0Reg[facility] Medical CenterComment on above:Result Comment: PERFORMED BY: [place] [address] PATHOLOGIST HOT PLATE PRESS OPERATOR BASSAM BRDAFORD M.D.Performed By: #### PILLAR CBC, EBS A1C, PILLAR LIPID, PILLAR CMP #### [facility] [address] [place] [address] USASodium [Moles/volume] in Serum or PlasmaOrdered By: Renny Walton on 55-27-4357Rbxomx [Moles/Vol]140 mmol/YLhfrdp943-930DzmwsjrxcRegional Medical CenterComment on above:Performed By: #### PILLAR CBC, EBS A1C, PILLAR LIPID, PILLAR CMP #### [facility] [address] [place] [id number] USASpecific gravity Test strip (U) [Rel density]Ordered By: Rafael Salamanca on 63-39-0328Ishytskh gravity (U) [Rel density]1.0201.001-1.030 [facility] Medical CenterTriglyceride [Mass/volume] in Serum or Plasma Ordered By: Renny Walton on 72-14-4348Letraxrejxal [Mass/Vol]178 mg/dLHigh0-149 [facility] Medical CenterComment on above:TRIG ATP III CLASSIFICATIONTRIG less than 150 mg/dL NormalTRIG 150-199 mg/dL Borderline highTRIG 200-500 mg/dL High TRIG greater than 500 mg/dL Very highStandard traceable to the Center for Disease Conrtrol and Prevention (CDC) test method. Urea nitrogen [Mass/volume] in Serum or PlasmaOrdered By: Renny Walton on 42-28-9582Dmqi nitrogen [Mass/Vol]20 mg/dLNormal7-25Reg[facility] Medical CenterComment on above:Performed By: #### PILLAR CBC, EBS A1C, PILLAR LIPID, PILLAR CMP #### [facility] [address] [place] [phone] USAUrine Cultureon 26-06-2151Zwjoudlw identified Cx Nom (U) Urine Culture Results >100,000 col/ml Mixed Bacterial Skin Contaminants 2 Days PERFORMED BY: [place] [address] PATHOLOGIST HOT PLATE PRESS OPERATOR BASSAM BRADFORD M.D.NormalThe [facility] Physician GroupComment on above: Performed By: #### CUJonn, FEIONUAPLUS #### [place] [address] USAUrine cultureOrdered By: Rafael Salamanca on 19-04-6683Eldwdcoo identified Cx Nom (U)Regional Medical CenterUrobilinogen Test strip (U) [Mass/Vol]Ordered By: Rafael Salamanca on 87-06-7517Wovgagvmlgod (U) [Mass/Vol] Normal mg/dLNormalRegional Medical CenterpH of Urine by Test strip Ordered By: Rafael Salamanca on 23-81-8994fZ (U)5.0 [pH]Normal5.0-9.0[facility] Medical CenterComment on above:Order Comment: Name Collection Type:: Clean-Voided MidstreamPerformed By: #### CUU, ADDONUAPLUS #### [facility] [address] [place] [id number] USAAmbulatory Visit Summaryon 35-75-2096Rermevprvc Visit SummaryAmbulatory Visit Summary NANCY HOOPER :1960 [...] signed up for this yet, please contact [employer] at [phone] to get signed up today. Language Information Language assistance services are available as needed. [facility] ShawAppearance of UrineOrdered By: Rafael Salamanca on 22-95-4819Cndubclreb (U)ClearNormalClearRegional Medical CenterComment on above:Order Comment: Name Collection Type:: Clean- Voided MidstreamPerformed By: #### ADDONUAPLUS, CUU #### [facility] [address] [place] [address] USABacteria [Presence] in Urine by AutomatedOrdered By: aRfael Salamanca on 82-13-7729Vywyavgk Auto Ql (U)None seen [HPF]None [facility] HospitalBilirubin Test strip Ql (U)Ordered By: Rafael Salamanca on 33-31-5585Wzfivgcfp Ql (U)NegativeNegativeRegional Medical CenterColor of Urine by AutoOrdered By: Rafael Salamanca on 17-88-2636Jsplf (U)Light-yellow NormalYellowRegional Medical CenterComment on above:Order Comment: Name Collection Type:: Clean-Voided MidstreamPerformed By: #### ADDONUAPLUS, CUU #### [facility] [address] [place] [address] USADipstick and Microscopicon 23-71-9280Luubuetg,UrineNone SeenNormalNone SeenThe [facility] Physician GroupComment on above:Order Comment: Name Collection Type:: Clean-Voided MidstreamPerformed By: #### ADDONUAPLUS, CUU #### [place] [address] USABilirubin,UrineNegativeNormalNegativeThe [facility] Physician GroupComment on above:Order Comment: Name Collection Type:: Clean- Voided MidstreamPerformed By: #### ADDONUAPLUS, CUU #### [place] [id number] USAGlucose Ql (U)NormalNormalNormalThe [facility] Physician GroupComment on above:Order Comment: Name Collection Type:: Clean-Voided MidstreamPerformed By: #### ADDONUAPLUS, CUU #### [place] [address] USAHyaline Casts,UrineNoneNormal0-8The [facility] Physician GroupComment on above:Order Comment: Name Collection Type:: Clean-Voided MidstreamResult Comment: PERFORMED BY: [place] [address] PATHOLOGIST HOT PLATE PRESS OPERATOR BASSAM BRADFORD M.D.Performed By: #### ADDONUAPLUS, CUU #### [place] [address] USANitrite,UrineNegativeNormalNegativeThe [facility] Physician GroupComment on above:Order Comment: Name Collection Type:: Clean-Voided MidstreamPerformed By: #### ADDONUAPLUS, CUU #### [address] [address] USAOccult Blood,UrineNegativeNormalNegativeThe [facility] Physician GroupComment on above:Order Comment: Name Collection Type:: Clean- Voided MidstreamPerformed By: #### ADDONUAPLUS, CUU #### [place] [address] USAProtein,UrineNegativeNormalNegativeThe [facility] Physician GroupComment on above:Order Comment: Name Collection Type:: Clean-Voided MidstreamPerformed By: #### ADDONUAPLUS, CUU #### [place] [address] USARBC,UrineNone SeenNormal0-4The [facility] Physician Group Comment on above:Order Comment: Name Collection Type:: Clean-Voided Midstream Performed By: #### ADDONUAPLUS, CUU #### [place] [address] USASpecificy Deane,Urine1.033Pqgsqu8.001-1.030The [facility] Physician GroupComment on above:Order Comment: Name Collection Type:: Clean- Voided MidstreamPerformed By: #### ADDONUAPLUS, CUU #### [place] [address] USASquamous Epithelial Cell,Wuogp0-6Rasixu9-9Zrj [facility] Physician GroupComment on above:Order Comment: Name Collection Type:: Clean- Voided MidstreamPerformed By: #### ADDONUAPLUS, CUU #### [place] [address] USAUrobilinogen,UrineNormalNormalNormalThe [facility] Physician GroupComment on above:Order Comment: Name Collection Type:: Clean- Voided MidstreamPerformed By: #### ADDONUAPLUS, CUU #### [place] [address] USAWBC,Jzjoi9-5Aqovhl3-9Uhi [facility] Physician GroupComment on above:Order Comment: Name Collection Type:: Clean-Voided MidstreamPerformed By: #### ADDONUAPLUS, CUU #### [place] [address] USAEpithelial cells.squamous [#/area] in Urine sediment by Automated countOrdered By: Rafael Salamanca on 63-29-5152Kmwhgbhcji cells.squamous Auto (Urine sed) [#/Area]1-2 [HPF]0-2FDelaware County Hospital Erythrocytes [#/area] in Urine sediment by Automated countOrdered By: Rafael Salamanca on 72-16-5155VAK Auto (Urine sed) [#/Area]None seen [HPF]0-4FDelaware County HospitalGlucose [Mass/volume] in Urine by Test stripOrdered By: Rafael Salamanca on 11-37-6184Lkzstmt Test strip (U) [Mass/Vol]Normal mg/dLNormal Regional Medical CenterHemoglobin Test strip Ql (U)Ordered By: Rafael Salamanca on 91-81-7788Vudoqkdiok Ql (U)NegativeNegACMC Healthcare SystemHyaline casts [#/area] in Urine sediment by Automated countOrdered By: Rafael Salamanca on 69-30-9817Jvufgkl casts Auto (Urine sed) [#/Area]None [LPF]0-8 Regional Medical CenterKetones [Presence] in Urine by Test strip Ordered By: Rafael Salamanca on 45-59-2931Htpywaq Ql (U)NegativeNormalNegative Regional Medical CenterComment on above:Order Comment: Name Collection Type:: Clean-Voided MidstreamPerformed By: #### ADDONUAPLUS, CUU #### [facility] [address] [place] [id number] USALeukocyte esterase [Presence] in Urine by Test strip Ordered By: Rafael Salamanca on 66-75-0565Oneihnvof esterase Test strip Ql (U) NegativeNormalNegACMC Healthcare SystemComment on above:Order Comment: Name Collection Type:: Clean-Voided MidstreamPerformed By: #### ADDONUAPLUS, CUU #### [facility] [address] [place] [id number] USALeukocytes [#/area] in Urine sediment by Automated count Ordered By: Rafael Salamanca on 76-70-2842JVH Auto (Urine sed) [#/Area]1-2 [HPF]0-4 Regional Medical CenterNitrite Test strip Ql (U)Ordered By: Rafael Salamanca on 02-39-9359Gopqkql Ql (U)NegativeNegACMC Healthcare System Protein Test strip (U) [Mass/Vol]Ordered By: Rafael Salamanca on 47-92-8740Vbxocut (U) [Mass/Vol]NegativeNegAvita Health System Bucyrus Hospitalpecific gravity Test strip (U) [Rel density]Ordered By: Rafael Salamanca on 81-10-6007Eupqlodk gravity (U) [Rel density]1.0111.001-1.030Regional Medical CenterUrine Cultureon 64-81-6810Inxsdoiq identified Cx Nom (U)>100,000 colonies/ml mixed bacterial skin contaminants 2 Days PERFORMED BY: [place] [address] PATHOLOGIST HOT PLATE PRESS OPERATOR BASSAM BRADFORD M.D.NormalThe [facility] Physician GroupComment on above: Performed By: #### JOSE, CUU #### [facility] [address] [place], [place] [address] USAUrine cultureOrdered By: Rafael Salamanca on 83-04-9347Vedikpgw identified Cx Nom (U)2 DaysRegional Medical CenterUrobilinogen Test strip (U) [Mass/Vol]Ordered By: Rafael Salamanca on 41-80-2573Arulnupvbxtk (U) [Mass/Vol]Normal mg/dLNormalRegional Medical CenterpH of Urine by Test stripOrdered By: Rafael Salamanca on 29-00-2944yM (U)5.5 [pH]Normal5.0-9.0Regional Medical CenterComment on above:Order Comment: Name Collection Type:: Clean-Voided MidstreamPerformed By: #### JOSE, CUU #### [facility] [address] [place], [place] [address] USAUS abdomen limitedon 66-87-4944AC abdomen limitedSELECT [facility] Main [place] [id number] Ultrasound Report Signed Patient: Nancy Hooper MR#: [id number] 68 : 1960 Acct:[id number] Age/Sex: 64 / F ADM Date: 11/23/24 Loc: UL Room: Type: [facility] Attending Dr: Rafael Salamanca MD Ordering Provider: [...] Degroot M.D. 11/23/2024 5:13 PM Dictation Location: [place] [address] Tech: Ramila Su Transcribed By: ADAM 11/23/241712 Dictated By: Shai Degroot II, MD 11/23/241711 Signed By: 11/23/241712[facility] Physician GroupAlanine aminotransferase [Enzymatic activity/volume] in Serum or PlasmaOrdered By: Rafael Salamanca on 39-69-3543HMD [Catalytic activity/Vol]15 U/LNormal7-52Regional Medical CenterComment on above:Performed By: #### HOMER, CMP, CBC, LIPASE ####[facility] [address] [place] [address] USAAlbumin [Mass/volume] in Serum or Plasma by Bromocresol green (BCG) dye binding methoOrdered By: Rafael Salamanca on 29-34-0656Vtnufgu BCG dye [Mass/Vol]4.1 g/dL3.5-5.7FDelaware County HospitalAlkaline phosphatase [Enzymatic activity/volume] in Serum or PlasmaOrdered By: Rafael Salamanca on 29-86-5465FIK [Catalytic activity/Vol]57 U/L Meqohl52-151NzawihpdoRegional Medical CenterComment on above:Performed By: #### HOMER, CMP, CBC, LIPASE ####[address] [address] USAAmylase [Enzymatic activity/volume] in Serum or PlasmaOrdered By: Rafael Salamanca on 52-27-9867Cgpurin [Catalytic activity/Vol]34 U/RUzvbjl63-078TehmgedlbRegional Medical CenterComment on above:Performed By: #### HOMER, CMP, CBC, LIPASE ####[place] [phone] USAAspartate aminotransferase [Enzymatic activity/volume] in Serum or PlasmaOrdered By: Rafael Salamanca on 71-29-5488VFU [Catalytic activity/Vol]12 U/CGvn05-50FjyuuxndoRegional Medical CenterComment on above:Performed By: #### HOMER, CMP, CBC, LIPASE ####[place] [id number] USABasophils [#/volume] in Blood by Automated countOrdered By: Rafael Salamanca on 28-90-1271Fnfagovge (Bld) [#/Vol]0.1 10*3/uLNormal0.0-0.2FDelaware County HospitalComment on above:Result Comment: PERFORMED BY: [facility] [address] [place] [address] PATHOLOGIST HOT PLATE PRESS OPERATOR BASSAM BRADFORD M.D.Performed By: #### HOMER, CMP, CBC, LIPASE ####[place] [phone] USABasophils/100 leukocytes in Blood by Automated countOrdered By: Rafael Salamanca on 11-21-2024 Basophils/100 WBC (Bld)1.0 %Normal.Regional Medical CenterComment on above:Performed By: #### HOMER, CMP, CBC, LIPASE ####[place] [id number] USABilirubin.total [Mass/volume] in Serum or PlasmaOrdered By: Rafael Salamanca on 97-57-7580Apeythrrw [Mass/Vol]0.3 mg/dL Normal0.3-1.0Regional Medical CenterComment on above:Performed By: #### HOMER, CMP, CBC, LIPASE ####[place] [phone] USACalcium [Mass/volume] in Serum or PlasmaOrdered By: Rafael Salamanca on 60-06-8656Ekjovta [Mass/Vol]9.2 mg/dLNormal8.6-10.3FDelaware County HospitalComment on above:Performed By: #### HOMER, CMP, CBC, LIPASE ####[place] [phone] USACarbon dioxide, total [Moles/volume] in Serum or PlasmaOrdered By: Rafael Reedangelito on 20-59-4626GH1 [Moles/Vol]29.6 mmol/TKfbfcb87.0-31.0Regional Medical CenterComment on above:Performed By: #### HOMER, CMP, CBC, LIPASE ####[place] [phone] USAChloride [Moles/volume] in Serum or PlasmaOrdered By: Rafael Reedangelito on 62-04-7491Ifzpgyil [Moles/Vol]107 mmol/DLkcaqt81-324WsndosnyiRegional Medical CenterComment on above:Performed By: #### HOMER, CMP, CBC, LIPASE ####[place] [id number] USAComplete Blood Count Auto Diffon 30-14-5498Hwot Corpuscular HGB Conc33.4 g/lCNdfqrl34.0-35.0The [facility] Physician GroupComment on above:Performed By: #### HOMER, CMP, CBC, LIPASE ####[place] [address] USANRBC% 0.1 /100{WBC}Normal0-0.5The [facility] Physician GroupComment on above:Performed By: #### HOMER, CMP, CBC, LIPASE ####[place] [phone] USAWhite Blood Count7.7 [CFU]/mLNormal3.8-11.6The [facility] Physician GroupComment on above:Performed By: #### HOMER, CMP, CBC, LIPASE ####[place] [phone] [facility] Comprehensive Metabolic Panelon 13-15-7010Mqyvtdd [Mass/Vol]4.1 g/dLNormal 3.5-5.7The [facility] Physician GroupComment on above:Performed By: #### HOMER, CMP, CBC, LIPASE ####[place] [phone] USAGFR/1.73 sq M.predicted MDRD (S/P/Bld) [Vol rate/Area]mL/min/{1.73_m2} NormalThe [facility] Physician [facility] HospitalComment on above:Performed By: #### HOMER, CMP, CBC, LIPASE ####[place] [address] USACreatinine [Mass/volume] in Serum or PlasmaOrdered By: Rafael Salamanca on 16-83-5435Vumhwthudw [Mass/Vol]0.58 mg/dLLow0.60-1.20Regional Medical CenterComment on above:Performed By: #### HOMER, CMP, CBC, LIPASE ####[place] [phone] USAEosinophils [#/volume] in Blood by Automated countOrdered By: Rafael Salamanca on 11-21-2024 Eosinophils (Bld) [#/Vol]0.1 10*3/uLNormal0.0-0.45Regional Medical CenterComment on above:Performed By: #### HOMER, CMP, CBC, LIPASE ####[place] [id number] USAEosinophils/100 leukocytes in Blood by Automated countOrdered By: Rafael Salamanca on 11-21-2024 Eosinophils/100 WBC (Bld)1.2 %Normal.Regional Medical CenterComment on above:Performed By: #### HOMER, CMP, CBC, LIPASE ####[place] [phone] USAErythrocyte distribution width [Ratio] by Automated countOrdered By: Rafael Salamanca on 44-05-4352Fusnrquiesz distribution width (RBC) [Ratio]13.5 %Hvqwlh94.9-15.3FDelaware County Hospital Comment on above:Performed By: #### HOMER, CMP, CBC, LIPASE ####[place] [phone] USAErythrocytes [#/volume] in Blood by Automated countOrdered By: Rafael Salamanca on 37-85-7428XJS (Bld) [#/Vol] 4.72 10*6/uLNormal3.60-5.00Regional Medical CenterComment on above: Performed By: #### HOMER, CMP, CBC, LIPASE ####[place] [phone] USAGlucose [Mass/volume] in Serum or Plasma Ordered By: Rafael Salamanca on 75-90-7435Dtfdugh [Mass/Vol]118 mg/vENzdh06-504 Regional Medical CenterComment on above:ADA recommended reference rangeRandom Glucose Reference [...] rangePerformed By: #### HOMER, CMP, CBC, LIPASE ####[place] [phone] [facility] Hematocrit [Volume Fraction] of Blood by Automated countOrdered By: Rafael Salamanca on 57-67-7359Yxrtadtprn (Bld) [Volume fraction]42.8 %Taejam99.0-46.4FDelaware County HospitalComment on above:Performed By: #### HOMER, CMP, CBC, LIPASE ####[place] [id number] [facility] Hemoglobin [Mass/volume] in BloodOrdered By: Rafael Salamanca on 24-06-2083Qvawvkxoiz (Bld) [Mass/Vol]14.3 g/mNZicwhn31.8-15.4FDelaware County Hospital Comment on above:Performed By: #### HOMER, CMP, CBC, LIPASE ####[address] [address] USALeukocytes [#/volume] corrected for nucleated erythrocytes in Blood by Automated counOrdered By: Rafael Salamanca on 92-14-8263OBD corrected for nucl RBC Auto (Bld) [#/Vol]7.7 10*3/uL3.8-11.6FDelaware County HospitalLeukocytes [#/volume] in Blood by Automated countOrdered By: Rafael Salamanca on 04-08-1585JDS (Bld) [#/Vol]7.7 10*3/uLNormal3.8-11.6FDelaware County HospitalComment on above:Performed By: #### HOMER, CMP, CBC, LIPASE ####[address] [address] USALipase [Enzymatic activity/volume] in Serum or PlasmaOrdered By: Rafael Salamanca on 86-27-0552Rrgyen [Catalytic activity/Vol]43.0 U/VZtoxmd83.0-82.0Regional Medical CenterComment on above:Result Comment: PERFORMED BY: [facility] [address] [place] [address] PATHOLOGIST HOT PLATE PRESS OPERATOR BASSAM BRADFORD M.D.Performed By: #### HOMER, CMP, CBC, LIPASE ####[address] [address] USALymphocytes [#/volume] in Blood by Automated countOrdered By: Rafael Salamanca on 11-21-2024 Lymphocytes (Bld) [#/Vol]2.1 10*3/uLNormal1.00-4.8Regional Medical CenterComment on above:Performed By: #### HOMER, CMP, CBC, LIPASE ####[address] [address] USALymphocytes/100 leukocytes in Blood by Automated countOrdered By: Rafael Salamanca on 11-21-2024 Lymphocytes/100 WBC (Bld)27.0 %Normal.Regional Medical CenterComment on above:Performed By: #### HOMER, CMP, CBC, LIPASE ####[address] [address] [facility] [place]Entitic mass] by Automated count Ordered By: Rafael Salamanca on 88-40-9184VMR (RBC) [Entitic mass]30.2 pgNormal 24.7-34.3FDelaware County HospitalComment on above:Performed By: #### HOMER, CMP, CBC, LIPASE ####[place] [address] [facility] Auto (RBC) [Mass/Vol]Ordered By: Rafael Salamanca on 15-51-5945YFDO (RBC) [Mass/Vol]33.4 g/dL32.0-35.0[facility] Medical CenterV [Entitic volume] by Automated countOrdered By: Rafael Salamanca on 42-01-2293BVW (RBC) [Entitic vol]90.7 nJVanlpu67-172JevbpzdqzRegional Medical CenterComment on above:Performed By: #### HOMER, CMP, CBC, LIPASE ####[place] [address] USAMonocytes [#/volume] in Blood by Automated countOrdered By: Rafael Salamanca on 72-54-4268Wchggsavt (Bld) [#/Vol]0.7 10*3/uLNormal0.0-0.8Regional Medical CenterComment on above:Performed By: #### HOMER, CMP, CBC, LIPASE ####[place] [id number] USAMonocytes/100 leukocytes in Blood by Automated countOrdered By: Rafael Salamanca on 23-97-1106Wftxlqxao/100 WBC (Bld)9.0 % Normal.Regional Medical CenterComment on above:Performed By: #### HOMER, CMP, CBC, LIPASE ####[place] [phone] USANeutrophils [#/volume] in Blood by Automated countOrdered By: Rafael Salamanca on 02-81-0427Yjjyndxdwhs (Bld) [#/Vol]4.8 10*3/uLNormal1.8-7.7 Regional Medical CenterComment on above:Performed By: #### HOMER, CMP, CBC, LIPASE ####[place] [address] [place] [address] USANeutrophils/100 leukocytes in Blood by Automated countOrdered By: Rafael Salamanca on 05-03-7123Srdasyubupc/100 WBC (Bld)61.8 %Normal.Regional Medical CenterComment on above:Performed By: #### HOMER, CMP, CBC, LIPASE ####[place] [address] [place] [address] USANo Panel InformationOrdered By: Rafael Salamanca on 34-58-1439Ftizfmwtl GFR (CKD-EPI)> 60.0 mL/MinRegional Medical CenterPharmacy Creatinine Clearance (Chem N/AFDelaware County HospitalNucleated erythrocytes [Presence] in Blood by Automated countOrdered By: Rafael Salamanca on 41-51-2650Uweeuatjq RBC Auto Ql (Bld)0.1 /100{WBC}0-0.5FDelaware County HospitalPlatelet mean volume [Entitic volume] in Blood by Automated countOrdered By: Rafael Salamanca on 97-69-1773Flxyzppf mean volume (Bld) [Entitic vol]7.1 fLNormal6.3-10.7FDelaware County HospitalComment on above:Performed By: #### HOMER, CMP, CBC, LIPASE ####[place] [address] [place] [address] [place] Platelets [#/volume] in Blood by Automated countOrdered By: Rafael Salamanca on 02-55-0190Hubpbjrnh (Bld) [#/Vol]334 10*3/iJZgutnh327-146MeqsdrnrrRegional Medical CenterComment on above:Performed By: #### HOMER, CMP, CBC, LIPASE ####[address] [address] [place] Potassium [Moles/volume] in Serum or PlasmaOrdered By: Rafael Salamanca on 11-21-2024 Potassium [Moles/Vol]4.2 mmol/LNormal3.5-5.1FDelaware County Hospital Comment on above:Performed By: #### HOMER, CMP, CBC, LIPASE ####[place] [phone] USAProtein [Mass/volume] in Serum or PlasmaOrdered By: Rafael Salamanca on 10-99-1558Pnuylsn [Mass/Vol]7.0 g/dL Normal6.4-8.9Regional Medical CenterComment on above:Performed By: #### HOMER, CMP, CBC, LIPASE ####[place] [id number] USASerum globulin measurement by calculation (mass/volume)Ordered By: Rafael Salamanca on 92-70-0586Azsdvhal (S) [Mass/Vol]2.9 g/dLNormalRegional Medical CenterComment on above:Performed By: #### HOMER, CMP, CBC, LIPASE ####[place] [address] USASerum or plasma albumin/globulin mass ratioOrdered By: Rafael Salamanca on 95-33-1378Tmxjebk/Globulin [Mass ratio]1.4 {ratio}Normal Regional Medical CenterComment on above:Performed By: #### HOMER, CMP, CBC, LIPASE ####[place] [address] USASerum or plasma anion gap determinationOrdered By: Rafael Salamanca on 67-44-7054Bznnk gap [Moles/Vol]10.6 mmol/LNormal6.0-15.0Regional Medical CenterComment on above:Performed By: #### HOMER, CMP, CBC, LIPASE ####[place] [address] USASodium [Moles/volume] in Serum or PlasmaOrdered By: Rafael Salamanca on 12-51-2134Wdvieq [Moles/Vol]143 mmol/AHhsvpt827-416PwqqfkknsRegional Medical CenterComment on above:Performed By: #### HOMER, CMP, CBC, LIPASE ####[facility] [address] [place] [address] USAUrea nitrogen [Mass/volume] in Serum or PlasmaOrdered By: Rafael Salamanca on 15-93-6260Mogu nitrogen [Mass/Vol]25 mg/dL Normal-Regional Medical CenterComment on above:Performed By: #### HOMER, CMP, CBC, LIPASE ####[facility] [address] [place] [address] USACT foot LT wo conon 31-11-0641FK foot LT wo con [facility] [address] [place] [address] CT Scan Report Signed Patient: Nancy Hooper MR#: [id number] 68 : 1960 Acct:[id number] Age/Sex: 64 / F ADM Date: 10/16/24 Loc: CT Room: Type: [facility] Attending Dr: Rafael Salamanca MD Copies to: Rafael Salamanca MD Ordering Provider: Rafael Salamanca MD Date of Service: 10/16/24 CT/CT foot LT wo con: M79.672 ([id number]) CT/CT ankle LT wo con: M79.672 CT [...] Degroot M.D. 10/16/2024 4:27 PM Dictation Location: [place] [address] Transcribed By: ADAM 10/16/24 1627 Dictated By: Shai Degroot II, MD 10/16/24 1601 Signed By: 10/16/24 1627[facility] Physician GroupXR foot LT 2Von 80-57-5148ZV foot LT 2VSELECT [facility] [place] [address] XRay Report Signed Patient: Nancy Hooper MR#: [id number] 68 : 1960 Acct:[id number] Age/Sex: 64 / F ADM Date: 09/27/24 Loc: XD Room: Type: [facility] Attending Dr: Rafael Salamanca MD Copies to: [...] Sanchez DO 09/27/24 1608 Signed By: 09/27/24 160TGH [facility] Physician GroupBasophils Auto (Bld) [#/Vol] Ordered By: Renny Walton on 34-38-3982Rkoyurrvu (Bld) [#/Vol]0.1 10*3/uL0.0-0.2 Regional Medical CenterBasophils/100 WBC Auto (Bld)Ordered By: Renny Walton on 90-89-8597Defvdrpvv/100 WBC (Bld)1.1 %.[facility] Calcium [Mass/volume] in Serum or PlasmaOrdered By: Renny Walton on 11-13-2023 Calcium [Mass/Vol]9.1 mg/dL8.6-10.3FDelaware County HospitalCarbon dioxide, total [Moles/volume] in Serum or PlasmaOrdered By: Renny Walton on 95-44-1131XG0 [Moles/Vol]28.1 mmol/L21.0-31.0[facility] Chloride [Moles/volume] in Serum or PlasmaOrdered By: Renny Walton on 11-13-2023 Chloride [Moles/Vol]107 mmol/J77-733OlncbcpctRegional Medical CenterCholesterol [Mass/volume] in Serum or PlasmaOrdered By: Renny Walton on 56-00-5816Kopvoplsjae [Mass/Vol]174 mg/cG212-460XuqrpmyemRegional Medical CenterComment on above: Chol less than 200 mg/dl low riskChol 201-239 mg/dl borderline riskChol 240 mg/dl and greater high riskCholesterol in LDL Calc [Mass/Vol]Ordered By: Renny Walton on 80-84-2494Yulegldyvsr in LDL [Mass/Vol]98 mg/dL0-100Regional Medical CenterComment on above:LDL ATP III CLASSIFICATIONLDL less than 100 mg/dL OptimalLDL 100-129 mg/dL Near or above mvssslcWIB114-568 mg/dL Borderline highLDL 160-189 mg/dL HighLDL greater than 189 mg/dL Very highCholesterol in VLDL Calc [Mass/Vol]Ordered By: Renny Walton on 39-65-1990Hpzcqmuequm in VLDL [Mass/Vol]24 mg/dLRegional Medical CenterCreatinine [Mass/volume] in Serum or PlasmaOrdered By: Renny Walton on 51-33-0946Zmafvpdagl [Mass/Vol]0.62 mg/dL0.60-1.20Regional Medical CenterEosinophils Auto (Bld) [#/Vol] Ordered By: Renny Walton on 12-23-6442Totpabgsmcp (Bld) [#/Vol]0.1 10*3/uL0.0-0.45 [facility] Medical CenterEosinophils/100 WBC Auto (Bld)Ordered By: Renny Walton on 92-90-4853Vguiasfzpmh/100 WBC (Bld)2.3 %.Regional Medical CenterErythrocyte distribution width Auto (RBC) [Ratio]Ordered By: Renny Walton on 11-08-0434Pyvfszpewvz distribution width (RBC) [Ratio]13.6 %11.9-15.3FDelaware County HospitalGlucose [Mass/volume] in Serum or PlasmaOrdered By: Renny Walton on 26-25-9804Arckmcz [Mass/Vol]103 mg/oOXgmy83-242NibqdnwbhRegional Medical CenterComment on above:ADA recommended reference rangeGlucose mean value [Mass/volume] in Blood Estimated from glycated hemoglobinOrdered By: Renny Walton on 70-02-3655Ybcyfff glucose Estimated from glycated hemoglobin (Bld) [Mass/Vol]111 mg/dLRegional Medical CenterHematocrit Auto (Bld) [Volume fraction]Ordered By: Renny Walton on 03-30-7515Qcqtekuvod (Bld) [Volume fraction]42.1 %34.0-46.4FDelaware County HospitalHemoglobin [Mass/volume] in BloodOrdered By: Renny Walton on 94-39-1012Vpnxcycbts (Bld) [Mass/Vol]13.9 g/dL11.8-15.4FDelaware County HospitalLaboratory - Hematology and Cell countsOrdered By: Renny Walton on 08-17-1429BoZ7d (Bld) [Mass fraction]5.5 %4.3-5.6FDelaware County HospitalComment on above:Increased risk for diabetes: 5.7 - 6.4diabetes: >6.4glycemic control for adults with diabetes: <7.0Leukocytes [#/volume] corrected for nucleated erythrocytes in Blood by Automated counOrdered By: Renny Walton on 82-32-1481JLB corrected for nucl RBC Auto (Bld) [#/Vol]5.8 10*3/uL3.8-11.6FDelaware County Hospital Lymphocytes Auto (Bld) [#/Vol]Ordered By: Renny Walton on 55-20-7907Pggglqxvebm (Bld) [#/Vol]2.0 10*3/uL1.00-4.8[facility] CenterLymphocytes/100 WBC Auto (Bld)Ordered By: Renny Walton on 59-18-7677Oogcvvkyjap/100 WBC (Bld)34.5 %.[facility] CenterMCH Auto (RBC) [Entitic mass]Ordered By: Renny Walton on 11-09-1244MXT (RBC) [Entitic mass]29.7 pg24.7-34.3FDelaware County HospitalMCHC Auto (RBC) [Mass/Vol]Ordered By: Renny Walton on 93-87-8121PXYL (RBC) [Mass/Vol]32.9 g/dL32.0-35.0[facility] CenterMCV Auto (RBC) [Entitic vol]Ordered By: Renny Walton on 56-28-9901XDO (RBC) [Entitic vol]90.2 wC11-260JnzspmdyoRegional Medical CenterMonocytes Auto (Bld) [#/Vol]Ordered By: Renny Walton on 28-95-2090Vulmwatok (Bld) [#/Vol]0.5 10*3/uL 0.0-0.8[facility] CenterMonocytes/100 WBC Auto (Bld)Ordered By: Renny Walton on 34-25-3074Sgcazyvki/100 WBC (Bld)8.0 %.[facility] CenterNeutrophils Auto (Bld) [#/Vol]Ordered By: Renny Walton on 11-13-2023 Neutrophils (Bld) [#/Vol]3.1 10*3/uL1.8-7.7FDelaware County Hospital Neutrophils/100 WBC Auto (Bld)Ordered By: Renny Walton on 11-13-2023 Neutrophils/100 WBC (Bld)54.1 %.[facility] CenterNo Panel InformationOrdered By: Renny Walton on 80-70-1727Jfptoqpai GFR (CKD-EPI)> 60.0 mL/MinRegional Medical CenterPharmacy Creatinine Clearance (ChemN/A [facility] CenterNucleated erythrocytes [Presence] in Blood by Automated countOrdered By: Renny Walton on 98-24-1038Gkctifpaw RBC Auto Ql (Bld) 0.1 /100{WBC}0-0.5FDelaware County HospitalPlatelet mean volume Auto (Bld) [Entitic vol]Ordered By: Renny Walton on 08-25-0433Bybmgxpo mean volume (Bld) [Entitic vol]7.0 fL6.3-10.7FDelaware County HospitalPlatelets Auto (Bld) [#/Vol]Ordered By: Renny Walton on 89-19-6288Rttfmdqos (Bld) [#/Vol]276 10*3/iA850-692JydeectijRegional Medical CenterPotassium [Moles/volume] in Serum or PlasmaOrdered By: Renny Walton on 78-98-5407Uobcbmdyo [Moles/Vol]4.1 mmol/L 3.5-5.1FDelaware County HospitalRBC Auto (Bld) [#/Vol]Ordered By: Renny Walton on 91-13-0707WFC (Bld) [#/Vol]4.67 10*6/uL3.60-5.00[facility] Centererum or plasma anion gap determinationOrdered By: Renny Walton on 18-59-9438Kjvxz gap [Moles/Vol]10.0 mmol/L6.0-15.0[facility] Centererum or plasma high density lipoprotein (HDL) cholesterol measurement Ordered By: Renny Walton on 18-50-5631Enwdbzijqbj in HDL [Mass/Vol]51 mg/dL23-92 [facility] CenterComment on above:HDL CHOL ATP-III CLASSIFICATION Cardiovascular RiskHDL > or equal to 60 mg/dL LOWHDL < 40 mg/dL HIGHSerum or plasma total cholesterol/high density lipoprotein (HDL) cholesterol mass ratOrdered By: Renny Walton on 40-46-6946Yrneivaprzo.total/Cholesterol in HDL [Mass ratio]3.4 {ratio}<5.0[facility] Medical Centerodium [Moles/volume] in Serum or PlasmaOrdered By: Renny Walton on 21-53-5595Wjlypc [Moles/Vol]141 mmol/V823-360UabbcwvxqRegional Medical CenterThyrotropin [Units/volume] in Serum or PlasmaOrdered By: Renny Walton on 19-20-7570MRQ Qn1.75 m[IU]/L0.45-5.33[facility] CenterTriglyceride [Mass/volume] in Serum or PlasmaOrdered By: Renny Walton on 61-58-8590Jmmdlisxdsue [Mass/Vol]123 mg/dL0-149[facility] CenterComment on above:TRIG ATP III CLASSIFICATIONTRIG less than 150 mg/dL NormalTRIG 150-199 mg/dL Borderline highTRIG 200-500 mg/dL High TRIG greater than 500 mg/dL Very highStandard traceable to the Center for Disease Conrtrol and Prevention (CDC) test method. Urea nitrogen [Mass/volume] in Serum or PlasmaOrdered By: Renny Walton on 20-15-5965Dzbf nitrogen [Mass/Vol]24 mg/dL7-25[facility] WBC Auto (Bld) [#/Vol]Ordered By: Renny Walton on 08-48-0466MTD (Bld) [#/Vol]5.8 10*3/uL3.8-11.6FDelaware County HospitalA1C HEMOGLOBINon 84-45-8884PgL9s (Bld) [Mass fraction]5.6 %[place] Other HbA1c (Bld) [Mass fraction]on 87-70-9643C7B HEMOGLOBIN [place] Other CT ANGIO CORONARY ART WITH HEARTFLOW IF SCORE >30%on 77-76-7184ZS ANGIO CORONARY ART WITH HEARTFLOW IF SCORE [...] STRUCTURES ARE THE SOLE RESPONSIBILITY OF THE HOSPITALITY ASSOCIATE SUBMITTING THE ORIGINAL REPORT (NOT THIS ADDENDUM) Signed by: Shai Tolentino 03/14/2023 1:47 PM -------- ORIGINAL REPORT -------- Dictation workstation: [id number] Interpreted By: Anthony Yo, STUDY: CT ANGIO CORONARY ART WITH HEARTFLOW IF SCORE >30%; 03/14/2023 12:00 pm INDICATION: Signs/Symptoms:r07.9. COMPARISON: None. ACCESSION NUMBER(S): [id number] ORDERING CLINICIAN: KAJAL LOERA TECHNIQUE: Using multi-detector [...] coronary artery dise (more content not included)...Normal [facility] CenterComment on above:Order Comment: Order in aemr prep given pt to obtain lab orderCT CARDIAC SCORING WO IV CONTRASTon [id number] CARDIAC SCORING WO IV CONTRASTInterpreted By: Shai [...] STRUCTURES ARE THE SOLE RESPONSIBILITY OF THE HOSPITALITY ASSOCIATE SUBMITTING THE ORIGINAL REPORT (NOT THIS ADDENDUM) Signed by: Shai Tolentino 02/17/2023 2:28 PM -------- ORIGINAL REPORT -------- Dictation workstation: [id number] Interpreted By: Anthony Yo, STUDY: CT CARDIAC SCORING WO IV CONTRAST; 02/14/2023 9:00 am INDICATION: Signs/Symptoms:chest pain. COMPARISON: None. ACCESSION NUMBER(S): [id number] ORDERING CLINICIAN: ANNELIESE HOYT TECHNIQUE: Using prospective [...] coronary heart disease events. According to the [employer] Clinical Expert Consensus [...] P et al. Circulation. 2007; 115:402-426 Reading Brick Paver: Dr. Anthony Yo, Date: 02/14/2023 10:23 am Signed by: Anthony Yo 02/14/2023 10:23 AM Dictation workstation: [id number] HealthCalcium [Mass/volume] in Serum or PlasmaOrdered By: Nabil Saxenasojohn on 04-54-1914Cdzpjmg [Mass/Vol]9.1 mg/dL8.6-10.3FDelaware County Hospital Carbon dioxide, total [Moles/volume] in Serum or PlasmaOrdered By: Nabil Wassojohn on 34-22-4009BH4 [Moles/Vol]25.7 mmol/L21.0-31.0[facility] CenterChloride [Moles/volume] in Serum or PlasmaOrdered By: Nabil Wassouf on 78-27-9957Tixjvlig [Moles/Vol]108 mmol/R58-413YcsqkyatjRegional Medical CenterCholesterol [Mass/volume] in Serum or PlasmaOrdered By: Nabil Wassouf on 11-70-8436Sosdytxsuhk [Mass/Vol]122 mg/lR481-296VvsmczvhxRegional Medical CenterComment on above:Chol less than 200 mg/dl low riskChol 201-239 mg/dl borderline riskChol 240 mg/dl and greater high riskCholesterol in LDL Calc [Mass/Vol]Ordered By: Nabil Wassouf on 72-71-7780Unookdoujxg in LDL [Mass/Vol] 67 mg/dL0-100[facility] CenterComment on above:LDL ATP III CLASSIFICATIONLDL less than 100 mg/dL OptimalLDL 100-129 mg/dL Near or above ivclflaETI394-820 mg/dL Borderline highLDL 160-189 mg/dL HighLDL greater than 189 mg/dL Very highCholesterol in VLDL Calc [Mass/Vol]Ordered By: Nabil Baker on 18-03-2259Npapocuhwus in VLDL [Mass/Vol]15 mg/dLRegional Medical CenterCreatinine [Mass/volume] in Serum or PlasmaOrdered By: Nabil Baker on 72-02-2933Dltmauuhrq [Mass/Vol]0.83 mg/dL0.60-1.20[facility] CenterGlucose [Mass/volume] in Serum or PlasmaOrdered By: Nabil Baker on 00-06-9157Hcqmxod [Mass/Vol]101 mg/kJ94-037LxqixkmrcRegional Medical Center Comment on above:ADA recommended reference rangeRandom Glucose Reference Range is dependent on time and content of last meal. Glucose of more than 200 mg/dL in a nonstressed, ambulatory subject supports the diagnosisof Diabetes Mellitus. Magnesium [Mass/volume] in Serum or PlasmaOrdered By: Nabil Baker on 06-66-6766Rveifigsu [Mass/Vol]2.2 mg/dL1.9-2.7FDelaware County Hospital No Panel InformationOrdered By: Nabil Baker on 12-84-1159Equwqryst GFR (CKD-EPI)> 60.0 mL/MinRegional Medical CenterPharmacy Creatinine Clearance (Chem87.71[facility] CenterPotassium [Moles/volume] in Serum or PlasmaOrdered By: Nabil Baker on 04-49-8042Xyeczxzns [Moles/Vol]3.6 mmol/L3.5-5.1FProtestant Hospitalerum or plasma anion gap determinationOrdered By: Nabil Baker on 32-69-4240Dojbl gap [Moles/Vol]10.9 mmol/L6.0-15.0[facility] Centererum or plasma high density lipoprotein (HDL) cholesterol measurementOrdered By: Nabil Baker on 73-36-0322Ynvqlkpjuyk in HDL [Mass/Vol]39 mg/eI30-19JodwvqfahRegional Medical CenterComment on above:HDL CHOL ATP-III CLASSIFICATION Cardiovascular RiskHDL > or equal to 60 mg/dL LOWHDL < 40 mg/dL HIGHSerum or plasma total cholesterol/high density lipoprotein (HDL) cholesterol mass ratOrdered By: Nabil Baker on 62-00-8937Yolyuahgzef.total/Cholesterol in HDL [Mass ratio]3.1 {ratio}<5.0[facility] Centerodium [Moles/volume] in Serum or PlasmaOrdered By: Nabil Baker on 24-55-2996Rxudix [Moles/Vol]141 mmol/L 136-145Reg[facility] CenterTriglyceride [Mass/volume] in Serum or PlasmaOrdered By: Nabil Baker on 30-85-4951Aranzourazub [Mass/Vol]78 mg/dL 0-149[facility] CenterComment on above:TRIG ATP III CLASSIFICATIONTRIG less than 150 mg/dL NormalTRIG 150-199 mg/dL Borderline highTRIG 200-500 mg/dL High TRIG greater than 500 mg/dL Very highStandard traceable to the Center for Disease Conrtrol and Prevention (CDC) test method. Troponin I.cardiac [Mass/volume] in Serum or Plasma by Detection limit <= 0.01 ng/Ordered By: Nabil Baker on 63-96-8933Ybcmyjsg I.cardiac DL <= 0.01 ng/mL [Mass/Vol]8.5 pg/mL0.0-15.0[facility] CenterUrea nitrogen [Mass/volume] in Serum or PlasmaOrdered By: Nabil Baker on 23-97-8109Xljv nitrogen [Mass/Vol]25 mg/dL7-[facility] CenterActivated partial thromboplastin time (aPTT) in platelet poor plasma by coagulation a Ordered By: Erika Escobedo on 60-15-5157tLFV Coag (PPP) [Time]20.6 s25.1-36.5 [facility] CenterAlanine aminotransferase [Enzymatic activity/volume] in Serum or PlasmaOrdered By: Erika Escobedo on 07-52-9369BWE [Catalytic activity/Vol]25 U/L7-52[facility] CenterAlbumin [Mass/volume] in Serum or Plasma by Bromocresol green (BCG) dye binding metho Ordered By: Erika Escobedo on 29-04-3709Ltzyjom BCG dye [Mass/Vol]4.1 g/dL 3.5-5.7FDelaware County HospitalAlkaline phosphatase [Enzymatic activity/volume] in Serum or PlasmaOrdered By: Erika Escobedo on 90-70-7742YUW [Catalytic activity/Vol]55 U/Q16-103HxllszdcqRegional Medical CenterAspartate aminotransferase [Enzymatic activity/volume] in Serum or PlasmaOrdered By: Erika Escobedo on 80-29-6560LKL [Catalytic activity/Vol]20 U/R98-78DfvhwcsdyRegional Medical CenterBasophils Auto (Bld) [#/Vol]Ordered By: Erika Escobedo on 00-22-5715Mvurpbqri (Bld) [#/Vol]0.1 10*3/uL0.0-0.2FDelaware County HospitalBasophils/100 WBC Auto (Bld)Ordered By: Erika Escobedo on 01-03-2023 Basophils/100 WBC (Bld)1.0 %.[facility] Medical CenterBilirubin Test strip Ql (U)Ordered By: Erika Escobedo on 20-67-4430Fbezoqsth Ql (U)Negative NegativeRegional Medical CenterBilirubin.total [Mass/volume] in Serum or PlasmaOrdered By: Erika Escobedo on 83-69-1890Wmcyzlncl [Mass/Vol]0.4 mg/dL 0.3-1.0[facility] CenterCalcium [Mass/volume] in Serum or Plasma Ordered By: Erika Escobedo on 99-06-9864Pqjnlxf [Mass/Vol]9.3 mg/dL8.6-10.3 [facility] CenterCarbon dioxide, total [Moles/volume] in Serum or PlasmaOrdered By: Erika Escobedo on 35-57-4403FJ5 [Moles/Vol]24.5 mmol/L 21.0-31.0[facility] CenterChloride [Moles/volume] in Serum or PlasmaOrdered By: Erika Escobedo on 39-53-6188Boanfbei [Moles/Vol]106 mmol/L 98-107[facility] CenterColor Auto (U)Ordered By: Erika Escobedo on 09-44-1906Luahj (U)YellowYellowRegional Medical CenterCreatine kinase [Enzymatic activity/volume] in Serum or PlasmaOrdered By: Erika Escobedo on 71-65-5869XG [Catalytic activity/Vol]31 U/F90-477WpdheszgnRegional Medical CenterCreatinine [Mass/volume] in Serum or PlasmaOrdered By: Erika Escobedo on 23-37-4774Tchcnozhjf [Mass/Vol]0.82 mg/dL0.60-1.20[facility] CenterEosinophils Auto (Bld) [#/Vol]Ordered By: Erika Escobedo on 01-03-2023 Eosinophils (Bld) [#/Vol]0.1 10*3/uL0.0-0.45[facility] Eosinophils/100 WBC Auto (Bld)Ordered By: Erika Escobedo on 01-03-2023 Eosinophils/100 WBC (Bld)0.7 %.[facility] Medical CenterErythrocyte distribution width Auto (RBC) [Ratio]Ordered By: Erika Escobedo on 01-03-2023 Erythrocyte distribution width (RBC) [Ratio]12.8 %11.9-15.3FDelaware County HospitalGlobulin Calc (S) [Mass/Vol]Ordered By: Erika Escobedo on 77-77-1928Dqnztmhq (S) [Mass/Vol]3.3 g/dLRegional Medical Center Glucose [Mass/volume] in Serum or PlasmaOrdered By: Erika Escobedo on 01-03-2023 Glucose [Mass/Vol]107 mg/hR19-345OimlwpboqRegional Medical CenterComment on above:ADA recommended reference rangeRandom Glucose Reference Range is dependent on time and content of last meal. Glucose of more than 200 mg/dL in a nonstressed, ambulatory subject supports the diagnosisof Diabetes Mellitus. Hematocrit Auto (Bld) [Volume fraction]Ordered By: Erika Escobedo on 01-03-2023 Hematocrit (Bld) [Volume fraction]43.7 %34.0-46.4FDelaware County HospitalHemoglobin [Mass/volume] in BloodOrdered By: Erika Escobedo on 01-03-2023 Hemoglobin (Bld) [Mass/Vol]14.7 g/dL11.8-15.4FDelaware County Hospital INR in Platelet poor plasma by Coagulation assayOrdered By: Erika Escobedo on 41-30-4155VNU Coag (PPP) [Relative time]1.1 {INR}[facility] CenterComment on above:INR Therapeutic Range A) Pre- and [...] strip (U) [Mass/Vol]Ordered By: Erika Escobedo on 81-74-0873Wvxfgli (U) [Mass/Vol]NegativeNegativeRegional Medical CenterLaboratory - CoagulationOrdered By: Erkia Escobedo on 72-87-1710GU Coag (PPP) [Time]12.7 s9.0-12.9[facility] CenterLeukocytes [#/volume] corrected for nucleated erythrocytes in Blood by Automated coun Ordered By: Erika Escobedo on 21-49-4276LYT corrected for nucl RBC Auto (Bld) [#/Vol]8.2 10*3/uL3.8-11.6FDelaware County HospitalLymphocytes Auto (Bld) [#/Vol]Ordered By: Erika Escobedo on 37-50-1541Jdnqrkxbitz (Bld) [#/Vol] 1.2 10*3/uL1.00-4.8[facility] CenterLymphocytes/100 WBC Auto (Bld)Ordered By: Erika Escobedo on 72-32-8161Nfolggpbtxy/100 WBC (Bld)15.0 %. [facility] Auto (RBC) [Entitic mass]Ordered By: Erika Escobedo on 37-01-7258VXI (RBC) [Entitic mass]30.3 pg24.7-34.3FDelaware County HospitalMCHC Auto (RBC) [Mass/Vol]Ordered By: Erika Escobedo on 01-03-2023 MCHC (RBC) [Mass/Vol]33.6 g/dL32.0-35.0[facility] CenterMCV Auto (RBC) [Entitic vol]Ordered By: Erika Escobedo on 62-46-1441EPL (RBC) [Entitic vol]90.2 yZ60-421QhmzickfpRegional Medical CenterMonocyte distribution width [Entitic volume] in Blood by AutomatedOrdered By: Erika Escobedo on 01-03-2023 Monocyte distribution width Auto (Bld) [Entitic vol]22.07 %0.00-20.00[facility] CenterComment on above:For adults in ED, MDW > 20.0 may be associated with a higher risk of sepsis during the first 12 hrs of hospital admissionMonocytes Auto (Bld) [#/Vol]Ordered By: Erika Escobedo on 01-03-2023 Monocytes (Bld) [#/Vol]0.7 10*3/uL0.0-0.8[facility] Monocytes/100 WBC Auto (Bld)Ordered By: Erika Escobedo on 01-03-2023 Monocytes/100 WBC (Bld)8.4 %.[facility] Medical CenterNatriuretic peptide B [Mass/Vol]Ordered By: Erika Escobedo on 85-12-6041Elgwvjuvbks peptide B (Bld) [Mass/Vol]19.0 pg/mL5-100[facility] CenterNeutrophils Auto (Bld) [#/Vol]Ordered By: Erika Escobedo on 71-99-7936Pkkbvcapghj (Bld) [#/Vol]6.2 10*3/uL1.8-7.7FDelaware County HospitalNeutrophils/100 WBC Auto (Bld)Ordered By: Erika Escobedo on 23-73-6616Zojwbpudhiz/100 WBC (Bld)74.9 %.[facility] Medical CenterNitrite Test strip Ql (U)Ordered By: Erika Escobedo on 60-65-9996Alkqtrk Ql (U)NegativeNegativeRegional Medical CenterNo Panel InformationOrdered By: Erika Escobedo on 40-64-3937Vqyflcvod GFR (CKD-EPI)> 60.0 mL/MinRegional Medical CenterPharmacy Creatinine Clearance (Chem89.05[facility] CenterNucleated erythrocytes [Presence] in Blood by Automated countOrdered By: Erika Escobedo on 01-03-2023 Nucleated RBC Auto Ql (Bld)0.1 /100{WBC}0-0.5FDelaware County Hospital Platelet mean volume Auto (Bld) [Entitic vol]Ordered By: Erika Escobedo on 41-14-7406Phfwwzoa mean volume (Bld) [Entitic vol]7.2 fL6.3-10.7FDelaware County HospitalPlatelets Auto (Bld) [#/Vol]Ordered By: Erika Escobedo on 13-78-9078Uqyavwlks (Bld) [#/Vol]270 10*3/nB297-520TorxryogaRegional Medical CenterPotassium [Moles/volume] in Serum or PlasmaOrdered By: Erika Escobedo on 48-51-7868Qtqhyrepz [Moles/Vol]3.5 mmol/L3.5-5.1FDelaware County HospitalProtein Auto test strip (U) [Mass/Vol]Ordered By: Erika Escobedo on 25-12-0860Yqbqvhh (U) [Mass/Vol]NegativeNegativeRegional Medical CenterProtein [Mass/volume] in Serum or PlasmaOrdered By: Erika Escobedo on 60-94-0707Gwmxnat [Mass/Vol]7.4 g/dL6.4-8.9[facility] CenterRBC Auto (Bld) [#/Vol]Ordered By: Erika Escobedo on 64-16-6074ZUZ (Bld) [#/Vol]4.84 10*6/uL3.60-5.00[facility] Centererum or plasma albumin/globulin mass ratioOrdered By: Erika Escobedo on 01-03-2023 Albumin/Globulin [Mass ratio]1.2 {ratio}[facility] Centererum or plasma anion gap determinationOrdered By: Erika Escobedo on 10-83-5631Mtebc gap [Moles/Vol]11.0 mmol/L6.0-15.0[facility] Centerodium [Moles/volume] in Serum or PlasmaOrdered By: Erika Escobedo on 23-93-9941Sbyspb [Moles/Vol]138 mmol/Q268-280WzqbtbiqiBarney Children's Medical Centerpecific gravity Auto test strip (U) [Rel density]Ordered By: Erika Escobedo on 01-03-2023 Specific gravity (U) [Rel density]1.0241.001-1.030[facility] CenterTroponin I.cardiac [Mass/volume] in Serum or Plasma by Detection limit <= 0.01 ng/Ordered By: Erika Escobedo on 94-68-8129Cdnhvpuo I.cardiac DL <= 0.01 ng/mL [Mass/Vol]13.3 pg/mL0.0-15.0[facility] CenterUrea nitrogen [Mass/volume] in Serum or PlasmaOrdered By: Erika Escobedo on 37-51-0877Figl nitrogen [Mass/Vol]29 mg/dL7-25[facility] CenterUrine clarity by refractometry automatedOrdered By: Erika Escobedo on 19-24-7052Fbarelk Refractometry automated (U)ClearCleMercy Health St. Anne HospitalUrine glucose measurement by automated test strip (mass/volume)Ordered By: Erika Escobedo on 27-17-1128Cnlvxhc Auto test strip (U) [Mass/Vol]Normal mg/dLNoUC Medical CenterUrine hemoglobin detection by automated test stripOrdered By: Erika Escobedo on 99-50-1630Rswhqknkkb Auto test strip Ql (U) NegativeNegACMC Healthcare SystemUrine leukocyte esterase detection by automated test stripOrdered By: Erika Escobedo on 01-03-2023 Leukocyte esterase Auto test strip Ql (U)NegativeNegACMC Healthcare SystemUrobilinogen Auto test strip (U) [Mass/Vol]Ordered By: Erika Escobedo on 59-99-2787Rxdybtyypquz (U) [Mass/Vol]Normal mg/dLNormClinton Memorial HospitalWBC Auto (Bld) [#/Vol]Ordered By: Erika Escobedo on 05-38-3588YYM (Bld) [#/Vol]8.2 10*3/uL3.8-11.6FDelaware County Hospital pH Auto test strip (U)Ordered By: Erika Escobedo on 13-07-6449tK (U)6.5 [pH] 5.0-9.0[facility] CenterAlanine aminotransferase [Enzymatic activity/volume] in Serum or PlasmaOrdered By: Renny Walton on 22-95-8645MQL [Catalytic activity/Vol]30 U/L7-52[facility] CenterAlbumin [Mass/volume] in Serum or Plasma by Bromocresol green (BCG) dye binding metho Ordered By: Renny Walton on 89-83-9975Fabztgo BCG dye [Mass/Vol]4.3 g/dL3.5-5.7 [facility] CenterAlkaline phosphatase [Enzymatic activity/volume] in Serum or PlasmaOrdered By: Renny Walton on 31-13-1481IHI [Catalytic activity/Vol]53 U/A17-403MtatlarbtRegional Medical CenterAspartate aminotransferase [Enzymatic activity/volume] in Serum or PlasmaOrdered By: Renny Walton on 24-30-8087FRN [Catalytic activity/Vol]19 U/M46-87OwxiwxnoxRegional Medical CenterBasophils Auto (Bld) [#/Vol]Ordered By: Renny Walton on 11-08-2022 Basophils (Bld) [#/Vol]0.1 10*3/uL0.0-0.2FDelaware County Hospital Basophils/100 WBC Auto (Bld)Ordered By: Renny Walton on 16-32-4363Afwjaahzd/100 WBC (Bld)1.0 %.[facility] CenterBilirubin.total [Mass/volume] in Serum or PlasmaOrdered By: Renny Walton on 54-62-1708Nkqbyatlw [Mass/Vol]0.7 mg/dL0.3-1.0[facility] CenterCalcium [Mass/volume] in Serum or PlasmaOrdered By: Renny Walton on 21-41-6580Qogcyca [Mass/Vol]9.1 mg/dL8.6-10.3 [facility] CenterCarbon dioxide, total [Moles/volume] in Serum or PlasmaOrdered By: Renny Walton on 08-35-0563TM6 [Moles/Vol]28.2 mmol/L21.0-31.0 [facility] CenterChloride [Moles/volume] in Serum or Plasma Ordered By: Renny Walton on 79-45-4450Kjgodfee [Moles/Vol]106 mmol/L98-107 [facility] CenterCholesterol [Mass/volume] in Serum or Plasma Ordered By: Renny Walton on 96-97-1059Rgmdjnpxijf [Mass/Vol]167 mg/xH969-027 [facility] CenterComment on above:Chol less than 200 mg/dl low riskChol 201-239 mg/dl borderline riskChol 240 mg/dl and greater high risk Cholesterol in LDL Calc [Mass/Vol]Ordered By: Renny Walton on 11-08-2022 Cholesterol in LDL [Mass/Vol]91 mg/dL0-100[facility] Comment on above:LDL ATP III CLASSIFICATIONLDL less than 100 mg/dL OptimalLDL 100-129 mg/dL Near or above oaofonuURG516-609 mg/dL Borderline highLDL 160-189 mg/dL HighLDL greater than 189 mg/dL Very highCholesterol in VLDL Calc [Mass/Vol]Ordered By: Renny Walton on 98-88-3739Auwxblincpe in VLDL [Mass/Vol]20 mg/dLRegional Medical CenterCreatinine [Mass/volume] in Serum or PlasmaOrdered By: Renny Walton on 46-43-4071Rcpbvmrxno [Mass/Vol]0.63 mg/dL 0.60-1.20[facility] CenterEosinophils Auto (Bld) [#/Vol]Ordered By: Renny Walton on 77-13-8293Sqxekbhmabi (Bld) [#/Vol]0.1 10*3/uL0.0-0.45 [facility] CenterEosinophils/100 WBC Auto (Bld)Ordered By: Renny Walton on 21-99-9420Fgkctkkwjgh/100 WBC (Bld)1.0 %.[facility] CenterErythrocyte distribution width Auto (RBC) [Ratio]Ordered By: Renny Walton on 47-25-9814Pwrsnigwtfr distribution width (RBC) [Ratio]13.1 %11.9-15.3FDelaware County HospitalGlobulin Calc (S) [Mass/Vol]Ordered By: Renny Walton on 70-62-8105Evfngeow (S) [Mass/Vol]2.9 g/dLRegional Medical Center Glucose [Mass/volume] in Serum or PlasmaOrdered By: Renny Walton on 11-08-2022 Glucose [Mass/Vol]110 mg/bH42-252XsmtxexshRegional Medical CenterComment on above:ADA recommended reference rangeGlucose mean value [Mass/volume] in Blood Estimated from glycated hemoglobinOrdered By: Renny Walton on 50-52-7060Okcmkfv glucose Estimated from glycated hemoglobin (Bld) [Mass/Vol]114 mg/dLRegional Medical CenterHematocrit Auto (Bld) [Volume fraction]Ordered By: Renny Walton on 29-74-1266Zzfaquaawl (Bld) [Volume fraction]42.2 %34.0-46.4FDelaware County HospitalHemoglobin [Mass/volume] in BloodOrdered By: Renny Walton on 43-50-7853Epskjfuexm (Bld) [Mass/Vol]14.2 g/dL11.8-15.4FDelaware County HospitalLaboratory - Hematology and Cell countsOrdered By: Renny Walton on 09-10-6616PoB5u (Bld) [Mass fraction]5.6 %4.3-5.6FDelaware County HospitalComment on above:Increased risk for diabetes: 5.7 - 6.4diabetes: >6.4glycemic control for adults with diabetes: <7.0Leukocytes [#/volume] corrected for nucleated erythrocytes in Blood by Automated counOrdered By: Renny Walton on 93-12-2371QCU corrected for nucl RBC Auto (Bld) [#/Vol]7.0 10*3/uL 3.8-11.6FDelaware County HospitalLymphocytes Auto (Bld) [#/Vol]Ordered By: Renny Walton on 97-84-2159Mfkcvciamhp (Bld) [#/Vol]1.9 10*3/uL1.00-4.8 [facility] CenterLymphocytes/100 WBC Auto (Bld)Ordered By: Renny Walton on 81-78-1713Uiglplcsthm/100 WBC (Bld)26.9 %.[facility] Auto (RBC) [Entitic mass]Ordered By: Renny Walton on 81-71-0768HTX (RBC) [Entitic mass]30.8 pg24.7-34.3FDelaware County HospitalMCHC Auto (RBC) [Mass/Vol]Ordered By: Renny Walton on 63-60-2077DRWN (RBC) [Mass/Vol]33.5 g/dL 32.0-35.0[facility] CenterMCV Auto (RBC) [Entitic vol]Ordered By: Renny Walton on 01-41-3637TUE (RBC) [Entitic vol]91.7 yN90-402PyuxmlyzhRegional Medical CenterMonocytes Auto (Bld) [#/Vol]Ordered By: Renny Walton on 85-33-2743Rqkicoacx (Bld) [#/Vol]0.5 10*3/uL0.0-0.8[facility] CenterMonocytes/100 WBC Auto (Bld)Ordered By: Renny Walton on 11-08-2022 Monocytes/100 WBC (Bld)7.0 %.[facility] CenterNeutrophils Auto (Bld) [#/Vol]Ordered By: Renny Walton on 48-90-8801Atkjvycetkq (Bld) [#/Vol]4.5 10*3/uL1.8-7.7FDelaware County HospitalNeutrophils/100 WBC Auto (Bld) Ordered By: Renny Walton on 03-50-5382Cxhloipzaxp/100 WBC (Bld)64.1 %.[facility] CenterNo Panel InformationOrdered By: Renny Walton on 11-08-2022 Estimated GFR (CKD-EPI)> 60.0 mL/MinRegional Medical CenterNicotine MetaboliteNegativeCutoff=25Regional Medical CenterComment on above: Performed at: BN - [facility] [address] [id number] Director: Merary Mccartney MD, Phone: [phone] Creatinine Clearance (ChemN/[facility] CampusNucleated erythrocytes [Presence] in Blood by Automated countOrdered By: Renny Walton on 11-08-2022 Nucleated RBC Auto Ql (Bld)0.1 /100{WBC}0-0.5FDelaware County Hospital Platelet mean volume Auto (Bld) [Entitic vol]Ordered By: Renny Walton on 89-93-3389Chvvomim mean volume (Bld) [Entitic vol]7.0 fL6.3-10.7FDelaware County HospitalPlatelets Auto (Bld) [#/Vol]Ordered By: Renny Walton on 24-27-1391Fbucvuozx (Bld) [#/Vol]304 10*3/uI924-482TlrwkeuajRegional Medical CenterPotassium [Moles/volume] in Serum or PlasmaOrdered By: Renny Walton on 77-65-8603Jkwklvork [Moles/Vol]3.9 mmol/L3.5-5.1FDelaware County HospitalProtein [Mass/volume] in Serum or PlasmaOrdered By: Renny Walton on 41-21-8427Wshpnjz [Mass/Vol]7.2 g/dL6.4-8.9Regional Medical CenterRBC Auto (Bld) [#/Vol]Ordered By: Renny Walton on 24-72-5735MJS (Bld) [#/Vol]4.60 10*6/uL3.60-5.00[facility] Centererum or plasma albumin/globulin mass ratioOrdered By: Renny Walton on 72-39-0895Mnxhbfc/Globulin [Mass ratio]1.5 {ratio}[facility] Centererum or plasma anion gap determinationOrdered By: Renny Walton on 46-15-7921Bpwrh gap [Moles/Vol]11.7 mmol/L6.0-15.0[facility] Centererum or plasma high density lipoprotein (HDL) cholesterol measurementOrdered By: Renny Walton on 11-08-2022 Cholesterol in HDL [Mass/Vol]55 mg/rW84-44JdpcqyadqRegional Medical Center Comment on above:HDL CHOL ATP-III CLASSIFICATION Cardiovascular RiskHDL > or equal to 60 mg/dL LOWHDL < 40 mg/dL HIGHSerum or plasma total cholesterol/high density lipoprotein (HDL) cholesterol mass ratOrdered By: Renny Walton on 13-28-3275Jivtufdlnrk.total/Cholesterol in HDL [Mass ratio]3.0 {ratio}<5.0 [facility] Centerodium [Moles/volume] in Serum or PlasmaOrdered By: Renny Walton on 60-17-6002Gnkanh [Moles/Vol]142 mmol/Q360-533WtgxwhcbiRegional Medical CenterThyrotropin [Units/volume] in Serum or PlasmaOrdered By: Renny Walton on 64-34-5917VSO Qn2.88 m[IU]/L0.45-5.33Regional Medical CenterTriglyceride [Mass/volume] in Serum or PlasmaOrdered By: Renny Walton on 10-71-6814Xiktwoqrvohu [Mass/Vol]103 mg/dL0-149[facility] Comment on above:TRIG ATP III CLASSIFICATIONTRIG less than 150 mg/dL NormalTRIG 150-199 mg/dL Borderline highTRIG 200-500 mg/dL High TRIG greater than 500 mg/dL Very highStandard traceable to the Center for Disease Conrtrol and Prevention (CDC) test method.Urea nitrogen [Mass/volume] in Serum or PlasmaOrdered By: Renny Walton on 46-17-2642Nrtp nitrogen [Mass/Vol]17 mg/dL7-25Reg[facility] Medical CenterWBC Auto (Bld) [#/Vol]Ordered By: Renny Walton on 42-57-4045ICX (Bld) [#/Vol]7.0 10*3/uL3.8-11.6FDelaware County HospitalAlanine aminotransferase [Enzymatic activity/volume] in Serum or PlasmaOrdered By: Rafael Salamanca on 99-93-4931KXZ [Catalytic activity/Vol]37 U/L7-52Reg[facility] Medical CenterAlbumin [Mass/volume] in Serum or Plasma by Bromocresol green (BCG) dye binding methoOrdered By: Rafael Salamanca on 82-79-6136Ucuhror BCG dye [Mass/Vol]4.3 g/dL3.5-5.7FDelaware County HospitalAlkaline phosphatase [Enzymatic activity/volume] in Serum or PlasmaOrdered By: Rafael Salamanca on 28-05-6998DTY [Catalytic activity/Vol]56 U/H28-764BwgfswikjRegional Medical CenterAspartate aminotransferase [Enzymatic activity/volume] in Serum or PlasmaOrdered By: Rafael Salamanca on 88-70-8503HVF [Catalytic activity/Vol]22 U/L 13-39Reg[facility] Medical CenterBasophils Auto (Bld) [#/Vol]Ordered By: Rafael Salamanca on 87-18-6743Ummcywvry (Bld) [#/Vol]0.1 10*3/uL0.0-0.2FDelaware County HospitalBasophils/100 WBC Auto (Bld)Ordered By: Rafael Reedangelito on 93-08-6781Jlevakhkg/100 WBC (Bld)0.9 %.[facility] Bilirubin.total [Mass/volume] in Serum or PlasmaOrdered By: Rafael Reedangelito on 39-32-1927Pwyyrzqyi [Mass/Vol]0.6 mg/dL0.3-1.0[facility] Calcium [Mass/volume] in Serum or PlasmaOrdered By: Rafael Reedangelito on 08-16-2022 Calcium [Mass/Vol]9.4 mg/dL8.6-10.3FDelaware County HospitalCarbon dioxide, total [Moles/volume] in Serum or PlasmaOrdered By: Rafael Reedangelito on 44-49-8777MB8 [Moles/Vol]30.5 mmol/L21.0-31.0[facility] Chloride [Moles/volume] in Serum or PlasmaOrdered By: Rafael Reedangelito on 08-16-2022 Chloride [Moles/Vol]104 mmol/K92-809FrdjwptzxRegional Medical CenterCreatinine [Mass/volume] in Serum or PlasmaOrdered By: Rafael Reedangelito on 62-25-5457Thmadzufgq [Mass/Vol]0.65 mg/dL0.60-1.20[facility] Medical CenterEosinophils Auto (Bld) [#/Vol]Ordered By: Rafael Reedangelito on 01-09-2022Xmuwofywnxc (Bld) [#/Vol]0.1 10*3/uL0.0-0.45Reg[facility] Medical CenterEosinophils/100 WBC Auto (Bld) Ordered By: Rafael Cheikh on 17-41-1399Robxwhlgvdw/100 WBC (Bld)1.1 %.Regional Medical CenterErythrocyte distribution width Auto (RBC) [Ratio]Ordered By: Rafael Salamanca on 26-99-1380Lctllluypnj distribution width (RBC) [Ratio]13.0 % 11.9-15.3FDelaware County HospitalFree thyroxine indexOrdered By: Rafael Salamanca on 73-93-0887Zbby T4 index Calc [Mass/Vol]2.51.2-4.9Reg[facility] Medical CenterGlobulin Calc (S) [Mass/Vol]Ordered By: Rafael Salamanca 24-25-8102Lomnfwmv (S) [Mass/Vol]3.0 g/dLRegional Medical Center Glucose [Mass/volume] in Serum or PlasmaOrdered By: Rafael Salamanca on 08-16-2022 Glucose [Mass/Vol]105 mg/pR91-090OyayzihvmRegional Medical CenterComment on above:ADA recommended reference rangeRandom Glucose Reference Range is dependent on time and content of last meal. Glucose of more than 200 mg/dL in a nonstressed, ambulatory subject supports the diagnosisof Diabetes Mellitus. Hematocrit Auto (Bld) [Volume fraction]Ordered By: Rafael Salamanca on 08-16-2022 Hematocrit (Bld) [Volume fraction]42.3 %34.0-46.4FDelaware County HospitalHemoglobin [Mass/volume] in BloodOrdered By: Rafael Salamanca 08-16-2022 Hemoglobin (Bld) [Mass/Vol]14.2 g/dL11.8-15.4FDelaware County Hospital Iron [Mass/volume] in Serum or PlasmaOrdered By: Rafael Salamanca 29-93-8017Vlar [Mass/Vol]87 ug/uU96-331OfzpdrjaoRegional Medical CenterLeukocytes [#/volume] corrected for nucleated erythrocytes in Blood by Automated counOrdered By: Rafael Salamanca 14-93-7742YLX corrected for nucl RBC Auto (Bld) [#/Vol]7.0 10*3/uL3.8-11.6FDelaware County HospitalLymphocytes Auto (Bld) [#/Vol] Ordered By: Rafael Salamanca 10-20-5509Tslqkyjitvs (Bld) [#/Vol]1.8 10*3/uL 1.00-4.8Reg[facility] Medical CenterLymphocytes/100 WBC Auto (Bld)Ordered By: Rafael Salamanca on 56-37-5056Vguylwnubfz/100 WBC (Bld)26.0 %.[facility] CenterH Auto (RBC) [Entitic mass]Ordered By: Rafael Salamanca on 08-16-2022 MCH (RBC) [Entitic mass]30.4 pg24.7-34.3FBucyrus Community HospitalHC Auto (RBC) [Mass/Vol]Ordered By: Rafael Salamanca on 09-39-6386LLGQ (RBC) [Mass/Vol] 33.7 g/dL32.0-35.0[facility] Medical CenterV Auto (RBC) [Entitic vol] Ordered By: Rafael Salamanca on 34-41-0997LJQ (RBC) [Entitic vol]90.2 qT26-291 [facility] Medical CenterMagnesium [Mass/volume] in Serum or Plasma Ordered By: Rafael Salamanca on 10-70-2669Unsdtghdp [Mass/Vol]2.0 mg/dL1.9-2.7 [facility] Medical CenterMonocytes Auto (Bld) [#/Vol]Ordered By: Rafael Salamanca on 24-70-1937Nbzlwasfm (Bld) [#/Vol]0.5 10*3/uL0.0-0.8Reg[facility] Medical CenterMonocytes/100 WBC Auto (Bld)Ordered By: Rafael Salamanca on 08-16-2022 Monocytes/100 WBC (Bld)7.1 %.[facility]ional Medical CenterNeutrophils Auto (Bld) [#/Vol]Ordered By: Rafael Salamanca on 03-65-2307Uwmyadxbxuy (Bld) [#/Vol]4.5 10*3/uL1.8-7.7FDelaware County HospitalNeutrophils/100 WBC Auto (Bld) Ordered By: Rafael Salamanca on 44-46-8401Nbabiwwthih/100 WBC (Bld)64.9 %.[facility] Medical CenterNo Panel InformationOrdered By: Rafael Salamanca on 08-16-2022 Estimated GFR (CKD-EPI)> 60.0 mL/MinRegional Medical CenterFree Thyroxine (T4) Direct8.8 ug/dL4.5-12.0Reg[facility] Medical CenterPharmacy Creatinine Clearance (ChemN/AFDelaware County HospitalNucleated erythrocytes [Presence] in Blood by Automated countOrdered By: Rafael Salamanca on 44-91-2683Ywyigwodt RBC Auto Ql (Bld)0.0 /100{WBC}0-0.5FDelaware County HospitalPlatelet mean volume Auto (Bld) [Entitic vol]Ordered By: Rafael Salamanca on 47-18-4123Rjzeqocn mean volume (Bld) [Entitic vol]7.3 fL6.3-10.7FDelaware County HospitalPlatelets Auto (Bld) [#/Vol]Ordered By: Rafael Salamanca on 63-84-8932Jxfbcvrnw (Bld) [#/Vol]280 10*3/uY899-575IairmqcjfRegional Medical CenterPotassium [Moles/volume] in Serum or PlasmaOrdered By: Rafael Salamanca on 30-64-0309Aqkpkbmqj [Moles/Vol]3.6 mmol/L3.5-5.1FDelaware County HospitalProtein [Mass/volume] in Serum or PlasmaOrdered By: Rafael Salamanca on 95-33-8843Fhyvrru [Mass/Vol]7.3 g/dL6.4-8.9[facility] Medical CenterRBC Auto (Bld) [#/Vol]Ordered By: Rafael Salamanca on 59-87-6282VSG (Bld) [#/Vol]4.69 10*6/uL3.60-5.00[facility] Centererum or plasma albumin/globulin mass ratioOrdered By: Rafael Salamanca on 77-65-6803Kiyqeed/Globulin [Mass ratio]1.4 {ratio}[facility] Centererum or plasma anion gap determinationOrdered By: Rafael Salamanca on 75-02-4656Bndhf gap [Moles/Vol]10.1 mmol/L6.0-15.0[facility] Medical Centerodium [Moles/volume] in Serum or PlasmaOrdered By: Rafael Salamanca on 16-81-2002Vtxjbz [Moles/Vol]141 mmol/S649-860 [facility] Medical CenterTSH DL <= 0.005 mIU/L QnOrdered By: Rafael Hoy on 29-38-1064LKD Qn1.920 m[IU]/L0.450-4.500[facility] Triiodothyronine (T3) [Mass/volume] in Serum or PlasmaOrdered By: Rafael Salamanca on 76-73-4424X3 [Mass/Vol]81 ng/nC49-030RnmhmwhxwRegional Medical CenterComment on above:Performed at: - [facility] [id number] Director: Tomas Nick PhD, Phone: [phone] (T3) resin uptake testOrdered By: Rafael Salamanca on 24-91-1254O6FF51 %24-39 [facility] Medical CenterUrea nitrogen [Mass/volume] in Serum or Plasma Ordered By: Rafael Salamanca on 36-53-7521Zfms nitrogen [Mass/Vol]24 mg/dL7-25 [facility] Medical CenterWBC Auto (Bld) [#/Vol]Ordered By: Rafael Salamanca on 73-82-1612NWJ (Bld) [#/Vol]7.0 10*3/uL3.8-11.6FDelaware County HospitalXR knee RT 2Von 47-48-3174EE knee RT 2VK[facility] Gimmie Other X[facility] knee RT 2V[facility] Gimmie Other XR knee RT [id number] [place] [address] Gimmie Other XR knee RT 2VSAngela V[place] [id number] [employer] Other XR knee RT [facility] Gimmie Other XR knee RT [facility]SNov[facility] Gimmie Other XR knee RT 2VPatient: Nancy Hooper MR#: [id number] [facility] Gimmie Other XR knee RT 9D27Pzmtr [employer] Other XR knee RT 2VDOB: 1960 Acct:[id number] [employer] Other XR knee RT 2VAge/Sex: 62 / F ADM Date: 08/08/22[place] [facility] Other XR knee RT 2VLoc: SOXD Room: Type: [facility] [employer] Other XR knee RT 2VAttending Dr: Sharla Strange HEAD OF PHYSICS-C [facility] Other XR knee RT 2VCopies to: Sharla Strange, [facility]ACON[facility] HOSPITALLiebo Other XR knee RT 2VOrdering Provider: Sharla Strange [facility]ITALClickScanShare Other XR knee RT 2VDate of Service: 08/08/22[place] [employer] Other XR knee RT 2VAccession #: ([id number]) XR/XR wrist RT 2V: Injury of right wrist, initial encounterGrafton [facility] Other XR knee RT 2V([id number]) XR/XR knee RT 2V: Injury of right knee, initial encounterGrafton [facility] Other XR knee RT 2VCLINICAL DATA: Patient tripped and fell landing on right side yesterday. Injury at the right wristGrafton [facility] Other XR knee RT 2Vand knee.[place] Other XR knee RT 2VRIGHT WRIST - 2 viewsGrafton [facility] Other XR knee RT 2VCOMPARISON: NoneG[place]on [facility] Other XR knee RT 2VAP and lateral views were obtained. No fracture or dislocation is noted. No definite acute fractureNorth [employer] Other xr knee RT 2Vor dislocation is identified. There is minimal dorsal soft tissue swelling.[place] Other xr knee RT 2VORDER #: [id number] XR/XR wrist RT 2VNort [employer] Other xr knee RT 2VIMPRESSION:[place] Other XR knee RT 2VNO ACUTE BONY INJURY WITHIN LIMITS OF THE AVAILABLE VIEWS.[employer] Other XR knee RT 2VRIGHT KNEE - 2 viewsNoreynolds county general memorial hospital [employer] Other xr knee RT 2VWeightbearing AP and lateral views were obtained. No acute fracture or dislocation is identified.[place] Other XR knee RT 2VThere is moderate narrowing of the medial tibiofemoral joint compartment. There is tricompartmentNort [employer] Other xr knee RT 2Vmarginal spurring. There is an enthesophyte at the insertion of the quadriceps tendon. A small kneeNort [employer] Other xr knee RT 2Veffusion is seen. There is no focal soft tissue swelling.[place] Other xr knee RT 2VDEGENERATIVE CHANGES.[employer] Other xr knee RT 2VNO ACUTE BONY INJURY.[employer] Other xr knee RT 2VImpression dictated by: Danette Granger M.D.08/08/2022 8:28 [facility] [employer] Other xr knee RT 2VDictation Location: [id number] [facility] Other xr knee RT 2VTranscribed By: ADAM 08/08/22 0828[place] [facility] Other xr knee RT 2VDictated By: Danette Granger MD 08/08/22 0823[place] [facility] Other xr knee RT 2VSigned By:[place] [facility] Other xr knee RT 2V08/08/22 0828[place] [facility] Other [id number]-98 PCR ([facility]VDWE[facility])on 01-21-0401UKFH-CoV-2 (COVID- 19) RNA TIFFANY+probe Ql (Unsp spec)DetectedCritically abnormalNOT DETECTEDThe Magruder HospitalComment on above:Result Comment: This test is not yet approved or cleared by the [place] FDA. When there are no FDA-approved or cleared tests available, and other criteria are met, FDA can make tests available under an emergency access mechanism called an Emergency Use Authorization (EUA). The EUA for this test is supported by the [employer] and Human Service's declaration that [...] longer be used).Performed By: #### CVDTBH #### [facility] [address] [place] [address] Dr. Rodney BarakatAlbumin [Mass/volume] in Serum or PlasmaOrdered By: Renny Walton on 56-43-5307Rpuhxpo [Mass/Vol]4.0 g/dL3.2-5.5FDelaware County Hospital Basophils Auto (Bld) [#/Vol]Ordered By: Renny Walton on 83-14-8491Jbzgevknn (Bld) [#/Vol]0.1 10*3/uL0.0-0.2FDelaware County HospitalBasophils/100 WBC Auto (Bld)Ordered By: Renny Walton on 49-56-0142Ljnysgsbk/100 WBC (Bld)1.0 %.[facility] Medical CenterBlood hemoglobin measurement (mass/volume)Ordered By: Renny Walton on 49-73-2247Fgnvvnciwb (Bld) [Mass/Vol]14.8 g/dL11.8-15.4FDelaware County HospitalBlood leukocytes automated count (number/volume)Ordered By: Renny Walton on 95-55-0966TQO (Bld) [#/Vol]6.5 10*3/uL4.5-11.0[facility] Medical CenterCholesterol [Mass/volume] in Serum or PlasmaOrdered By: Renny Walton on 45-20-2791Jutccinrmau [Mass/Vol]189 mg/wR965-664JcdrreeamRegional Medical CenterComment on above:Chol less than 200 mg/dl low risk Chol 201-239 mg/dl borderline risk Chol 240 mg/dl and greater high riskCholesterol in LDL Calc [Mass/Vol]Ordered By: Renny Walton on 17-42-8819Lymgbrdmhll in LDL [Mass/Vol]113 mg/dL0-100Reg[facility] Medical CenterComment on above:LDL ATP III CLASSIFICATION LDL less than 100 mg/dL Optimal LDL 100-129 mg/dL Near or above optimal LDL 130-159 mg/dL Borderline high LDL 160-189 mg/dL High LDL greater than 189 mg/dL Very highCholesterol in VLDL Calc [Mass/Vol]Ordered By: Renny Walton on 01-51-8295Rozcixfnozh in VLDL [Mass/Vol]27 mg/dLRegional Medical CenterCreatinine and Glomerular filtration rate.predicted panel (S/P/Bld)Ordered By: Renny Walton on 71-34-6429Yjqgvxwlud [Mass/Vol]0.63 mg/dL 0.44-1.03Reg[facility] Medical CenterEosinophils Auto (Bld) [#/Vol]Ordered By: Renyn Walton on 19-92-7474Gqhpojwuopz (Bld) [#/Vol]0.1 10*3/uL0.0-0.45 [facility] Medical CenterEosinophils/100 WBC Auto (Bld)Ordered By: Renny Walton on 29-77-5951Shfxxwloaxk/100 WBC (Bld)1.2 %.[facility] Medical CenterErythrocyte distribution width Auto (RBC) [Ratio]Ordered By: Renny Walton on 68-92-6088Llopxlbscqv distribution width (RBC) [Ratio]13.9 %11.9-15.3FDelaware County HospitalEstimated glomerular filtration rate (GFR) non- AmericanOrdered By: Renny Walton on 86-09-3590OPE/1.73 sq M.predicted among non- blacks MDRD (S/P/Bld) [Vol rate/Area]> 60 mL/MinRegional Medical CenterGlobulin Calc (S) [Mass/Vol]Ordered By: Renny Walton on 40-88-3314Ufrrexcd (S) [Mass/Vol]3.3 g/dLRegional Medical CenterGlucose mean value [Mass/volume] in Blood Estimated from glycated hemoglobinOrdered By: Renny Walton on 24-59-0843Uskarht glucose Estimated from glycated hemoglobin (Bld) [Mass/Vol] 120 mg/dLRegional Medical CenterHematocrit Auto (Bld) [Volume fraction]Ordered By: Renny Walton on 44-91-0271Owtyyoynwl (Bld) [Volume fraction] 44.9 %34.0-46.4FDelaware County HospitalLaboratory - Chemistry and Chemistry - challengeOrdered By: Renny Walton on 29-68-2728Wxbwckf [Mass/Vol]111 mg/qQ08-132TpntkbogrRegional Medical CenterComment on above:ADA recommended reference rangeLaboratory - Hematology and Cell countsOrdered By: Renny Walton on 05-08-3525ZpK1m (Bld) [Mass fraction]5.8 %4.3-5.6FDelaware County HospitalComment on above:Increased risk for diabetes: 5.7 - 6.4 diabetes: >6.4 glycemic control for adults with diabetes: <7.0Nucleated RBC/100 WBC (Bld) [Ratio]0.0 %0-0.5FDelaware County HospitalLymphocytes Auto (Bld) [#/Vol] Ordered By: Renny Walton on 28-38-3500Alxynljipdw (Bld) [#/Vol]1.9 10*3/uL1.00-4.8 [facility] Medical CenterLymphocytes/100 WBC Auto (Bld)Ordered By: Renny Walton on 39-94-2888Nknscaaspfi/100 WBC (Bld)29.2 %.[facility] CenterH Auto (RBC) [Entitic mass]Ordered By: Renny Walton on 21-98-7627KJQ (RBC) [Entitic mass]30.0 pg24.7-34.3FDelaware County HospitalMCHC Auto (RBC) [Mass/Vol]Ordered By: Renny Walton on 80-96-3781TUCH (RBC) [Mass/Vol]33.0 g/dL 32.0-35.0[facility] Medical CenterMCV Auto (RBC) [Entitic vol]Ordered By: Renny Walton on 25-53-1003FHD (RBC) [Entitic vol]90.8 zX18-285QdxmoqikeRegional Medical CenterMonocyte %Ordered By: Renny Walton on 24-00-1088Srgjxkjz % 139 mg/lU39-647VrtzvrbtqRegional Medical CenterComment on above:TRIG ATP III CLASSIFICATION TRIG less than 150 mg/dL Normal TRIG 150-199 mg/dL Borderline high TRIG 200-500 mg/dL High TRIG greater than 500 mg/dL Very high Standard traceable to the Center for Disease Conrtrol and Prevention (CDC) test method.Monocytes Auto (Bld) [#/Vol]Ordered By: Renny Walton on 34-66-5557Ehstzegcp (Bld) [#/Vol]0.5 10*3/uL0.0-0.8Reg[facility] Medical CenterMonocytes/100 WBC Auto (Bld)Ordered By: Renny Walton on 05-26-0406Xiqxipiql/100 WBC (Bld)7.4 %. Regional Medical CenterNeutrophils Auto (Bld) [#/Vol]Ordered By: Renny Walton on 14-87-7891Skmtnkwhmjs (Bld) [#/Vol]4.0 10*3/uL1.8-7.7FDelaware County HospitalNeutrophils/100 WBC Auto (Bld)Ordered By: Renny Walton on 08-25-6101Fvsbirtntrb/100 WBC (Bld)61.2 %.[facility] Medical CenterNo Panel InformationOrdered By: Renny Walton on 97-43-0934Tvxvncbhx GFR ()> 60 mL/MinRegional Medical CenterComment on above:GFR estimated reference range: According to KDOQI guidelines, <60 ml/min/1.73m2 is sufficient todiagnose a patient with chronic kidney disease.Nicotine Metabolite NegativeCutoff=25Reg[facility] Medical CenterComment on above:Performed at: - [facility] [id number] Machine Compositor: Merary Mccartney MD, Phone: [phone] Creatinine Clearance (ChemN/AFDelaware County HospitalPlatelet mean volume Auto (Bld) [Entitic vol]Ordered By: Renny Walton on 98-98-2304Extrexnh mean volume (Bld) [Entitic vol]7.3 fL6.3-10.7FDelaware County HospitalPlatelets Auto (Bld) [#/Vol]Ordered By: Renny Walton on 89-22-5357Fetprhmdp (Bld) [#/Vol]286 10*3/uL 150-450Reg[facility] Medical CenterProtein [Mass/volume] in Serum or Plasma Ordered By: Renny Walton on 37-47-1170Wypyfgy [Mass/Vol]7.3 g/dL6.1-7.9Reg[facility] Medical CenterRBC Auto (Bld) [#/Vol]Ordered By: Renny Walton on 45-05-9975ODW (Bld) [#/Vol]4.94 10*6/uL3.60-5.00[facility] Medical Centererum or plasma alanine aminotransferase measurement without P-5'-P (enzymatic activiOrdered By: Renny Walton on 06-58-9539VZG No additional P-5'-P [Catalytic activity/Vol]45 U/P04-45MqtmsoemeBarney Children's Medical Centererum or plasma albumin/globulin mass ratioOrdered By: Renny Walton on 12-16-2021 Albumin/Globulin [Mass ratio]1.2 {ratio}[facility] Medical Centererum or plasma alkaline phosphatase measurement (enzymatic activity/volume)Ordered By: Renny Walton on 68-14-9537YIK [Catalytic activity/Vol]64 U/K16-86WhagejspbBarney Children's Medical Centererum or plasma aspartate aminotransferase measurement (enzymatic activity/volume)Ordered By: Renny Walton on 91-71-3675KRX [Catalytic activity/Vol]25 U/J72-42EcylyvutcBarney Children's Medical Centererum or plasma calcium measurement (mass/volume)Ordered By: Renny Walton on 96-01-3505Qwyfixg [Mass/Vol] 9.5 mg/dL8.2-10.2FProtestant Hospitalerum or plasma chloride measurement (moles/volume)Ordered By: Renny Walton on 41-95-3939Tcymvlor [Moles/Vol]101 mmol/I89-483SkduazzmyBarney Children's Medical Centererum or plasma high density lipoprotein (HDL) cholesterol measurementOrdered By: Renny Walton on 36-67-2790Gdakmdnqctw in HDL [Mass/Vol]48 mg/lX28-51VdnwvbwpdRegional Medical CenterComment on above:HDL CHOL ATP-III CLASSIFICATION Cardiovascular Risk HDL > or equal to 60 mg/dL LOW HDL < 40 mg/dL HIGHSerum or plasma potassium measurement (moles/volume)Ordered By: Renny Walton on 01-88-5900Wcitukbit [Moles/Vol]4.1 mmol/L3.5-5.1FProtestant Hospitalerum or plasma sodium measurement (moles/volume)Ordered By: Renny Walton on 93-98-5113Zammci [Moles/Vol]138 mmol/U557-120TgwmgafxnBarney Children's Medical Centererum or plasma total bilirubin measurement (mass/volume) Ordered By: Renny Walton on 97-54-6411Hugefxurv [Mass/Vol]0.6 mg/dL0.3-1.2 [facility] Medical Centererum or plasma total carbon dioxide measurement (moles/volume)Ordered By: Renny Walton on 19-37-6505QQ2 [Moles/Vol] 28.3 mmol/L22.0-30.0[facility] Medical Centererum or plasma total cholesterol/high density lipoprotein (HDL) cholesterol mass ratOrdered By: Renny Walton on 93-55-9484Tilpjnxitch.total/Cholesterol in HDL [Mass ratio]3.9 {ratio} <5.0Bar[facility] Children's Medical Centererum or plasma urea nitrogen measurement (mass/volume)Ordered By: Renny Walton on 86-38-9482Afnj nitrogen [Mass/Vol]22 mg/dL9-23Reg[facility] Medical CenterTS DL <= 0.005 mIU/L QnOrdered By: Renny Walton on 25-55-2140VUQ Qn2.52 m[IU]/L0.45-5.33[facility] Medical CenterCOVID-19 SOFIAOrdered By: Renny Walton on 73-32-0222DYMK-CoV+SARS-CoV-2 (COVID-19) Ag IA.rapid Ql (Resp)NegativeNegativeRegional Medical CenterComment on above:This is a duplicate [place] SARS Antigen (FERN) result to be used for statistical tracking purpose only.No Panel InformationOrdered By: Renny Walton on 52-91-5799MIIS Antigen (LFIA)[facility] Medical CenterNo Panel Informationon 82-90-0871JpytnqRT-[place] [address] [place] Work Phone: No Panel Informationon 08-34-5574FBStephanie [place] [address] Work Phone: Office Visit (Cardiology)on 62-45-2652Gonlek-up visit Diagnoses/Problems Assessed Chest pain (786.50) (R07.9) [...] Metabolic Panel; Status:Active - Retrospective Authorization; Requested for:[id number]; SocHx: Never a smoker Tobacco Use Screening; Status:Complete; Done: 22Oct2021 Patient Instructions By signing my name below, Jhon Regina Cary Nieto Lpn, attest that this documentation has been [...] chest pain. 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 [...] (Z8 (more content not included)...NormalUH TouchworksTobacco Screening.on 81-13-2080Cfjea depression screening assessmentNo-[facility] [address] [place] Work Phone: Tobacco use status CPHSb) NoM-[facility] [place] [address] [place] Work Phone: Vital Signs Date TimeVital SignValuePerforming [id number] 10:36-0400 Diastolic blood mytzlbfd24 mm[Hg]Rafael Salamanca MD Work Phone: [facility]09-30-2025 10:36-0400 Heart rate59 /Avery Salamanca MD Work Phone: [phone] [place], [place] 1847109-30-2025 10:36-0400 Respiratory rate16 /Avery Salamanca MD Work Phone: [phone] [place], [place] 1847109-30-2025 10:36-0400 SaO2% (BldA) [Mass fraction]99 %Rafael Salamanca MD Work Phone: 1(419)[address] [place], [place] 1847109-30-2025 10:36-0400 Systolic blood urjkxroz478 mm[Hg]Rafael Salamanca MD Work Phone: 1(419)[address] [place], [place] 1847109-30-2025 08:28-0400 Body bkikfb586.18 cmRafael Salamanca MD Work Phone: 1(419)[address] [place], [place] 1847109-30-2025 08:28-0400 Body itoyam63.4 kgRafael Salamanca MD Work Phone: 1(419)[address] [place], [place] 1847108-25-2025 14:10-0400 Body ttqidv003.18 cmRafael Salamanca MD Work Phone: 1(419)[address] [place], [place] 1847108-25-2025 14:10-0400 Body mass index (BMI) [Ratio]33.6 kg/i0KljhrpqRafael Salamanca MD Work Phone: 1(419)[address] [place], [place] 1847108-25-2025 14:10-0400 Body lsghad00.52 kgRafael Salamanca MD Work Phone: 1(419)[address] [place], [place] 1847108-25-2025 14:10-0400 Diastolic blood vlpeqofi23 mm[Hg]Rafael Salamanca MD Work Phone: 1(419)[address] [place], [place] 1847108-25-2025 14:10-0400 Heart rate78 /Avery Salamanca MD Work Phone: 1(419)[address] [place], [place] 1847108-25-2025 14:10-0400 Systolic blood nygdegki421 mm[Hg]Rafael Salamanca MD Work Phone: 1(419)[address] [place], [place] 1847108-14-2025 08:16-0400 Body bjdvmo085.18 cmRafael Salamanca MD Work Phone: [facility]08-14-2025 08:16-0400 Body mass index (BMI) [Ratio]33.6 kg/q3XtehaivRafael Salamanca MD Work Phone: [facility]08-14-2025 08:16-0400 Body zdxoui70.52 kgRafael Salamanca MD Work Phone: [facility]07-09-2025 16:21-0400 Body ozypff930.2 cmJoseph Montague DPM Work Phone: [facility]pt[facility]um30[facility]71[facility]2214 16:21-0400Body mass index (BMI) [Ratio]33.67 kg/z7YnlysugvJoseph Montague DPM Work Phone: [facility] HospitalQkmqhatvqc22-78-8214 16:21-0400Body .52 kgJoseph Montague DPM Work Phone: [facility] HospitalBujbgfaspn68-80-8237 16:21-0400Respiratory rate18 /Salomon Montague DPM Work Phone: [facility] HospitalYhxsiniktm70-93-5847 08:11-0400Body fugfuh741.18 [facility]04-30-2025 08:11-0400Body mass index (BMI) [Ratio]33.7 kg/y1YfllnnehaRegional Medical Center04-30-2025 08:11-0400Body wqoooe43.9 kg[facility]04-30-2025 08:11-0400Diastolic blood ejfvyxym71 mm[Hg][facility]04-30-2025 08:11-0400 Heart rate65 /[facility]04-30-2025 08:11-0400 Respiratory rate18 /[facility]04-30-2025 08:11-0400 SaO2% (BldA) [Mass fraction]97 %[facility]04-30-2025 08:11-0400Systolic blood qrdcrrep081 mm[Hg][facility] 06-12-2024 08:16-0500Body rzimlg580.18 [facility] 06-12-2024 08:16-0500Body mass index (BMI) [Ratio]32.5 kg/m1SjhhtlfdnRegional Medical Center01-29-2025 08:16-0500Body .46 kg[facility]01-29-2025 08:16-0500Diastolic blood pedzpsji75 mm[Hg][facility]01-29-2025 08:16-0500Heart rate76 /[facility]01-29-2025 08:16-0500Respiratory rate16 /[facility]01-29-2025 08:16-6025LsF2% (BldA) [Mass fraction]96 %[facility]01-29-2025 08:16-0500Systolic blood ekxnkriw554 mm[Hg][facility]11-08-2024 08:52-0500Body .2 cmAnneliese Hoyt MD Work Phone: 8(003)644-[address] [place], [place] 6845011-08-2024 08:52-0500 Body mass index (BMI) [Ratio]32.26 kg/b4JjfsztcAnneliese Hoyt MD Work Phone: 0(002)[address]11-08-2024 08:52-0500 Body nfwbmy65.44 kgAnneliese Hoyt MD Work Phone: 8(840)[address]11-08-2024 08:52-0500 Diastolic blood jhjtvziz32 mm[Hg]Anneliese Hoyt MD Work Phone: 1(485)[address]11-08-2024 08:52-0500 Heart rate68 /Kunal Hoyt MD Work Phone: 6(962)[address]11-08-2024 08:52-0500 Systolic blood vjhjilpc831 mm[Hg]Anneliese Hoyt MD Work Phone: 7(439)[address]10-02-2024 08:01-0400 Body ecehgq037.18 [facility]10-02-2024 08:01-0400Body mass index (BMI) [Ratio]32 kg/k6YbwjsokgyRegional Medical Center10-02-2024 08:01-0400Body fhyjql49.73 kg[facility]10-02-2024 08:01-0400Diastolic blood eyxbopbj55 mm[Hg][facility] 02-14-2024 08:01-0400Heart rate78 /[facility] 02-14-2024 08:01-0400Respiratory rate18 /[facility] 02-14-2024 08:01-8374EnO6% (BldA) [Mass fraction]98 %[facility]10-02-2024 08:01-0400Systolic blood wvppujkp521 mm[Hg][facility]08-07-2024 12:22-0400Body zcuzxi389.18 cmMD Rafael Hoy Work Phone: 1(294)[address] [place], [place] 1847108-07-2024 12:22-0400 Body mass index (BMI) [Ratio]32.3 kg/m2MD Rafael Hoy Work Phone: 1(725)[address] [place], [place] 1847108-07-2024 12:22-0400 Body wrmrwi49.55 kgMD Rafael Hoy Work Phone: 1(132)[address] [place], [place] 1847108-07-2024 12:22-0400 Diastolic blood bksxauwn70 mm[Hg]MD Rafael Salamanca Work Phone: 1(055)[address] [place], [place] 1847108-07-2024 12:22-0400 Heart rate69 /minMD Rafael Hoy Work Phone: 1(603)[address] [place], [place] 1847108-07-2024 12:22-0400 Respiratory rate16 /minMD Rafael Hoy Work Phone: 1(539)[address] [place], [place] 1847108-07-2024 12:22-0400 SaO2% (BldA) [Mass fraction]95 %MD Rafael Salamanca Work Phone: 1(544)[address] [place], [place] 1847108-07-2024 12:22-0400 Systolic blood muhcrmgm014 mm[Hg]MD Rafael Salamanca Work Phone: [facility]06-14-2024 10:38-0400 Body crbwam358.18 cm[facility]06-14-2024 10:38-0400Body mass index (BMI) [Ratio]33.5 kg/u6XbwubxmddRegional Medical Center06-14-2024 10:38-0400Body eltoyx87.29 kg[facility]06-14-2024 10:38-0400Diastolic blood cgjnixza27 mm[Hg][facility] 10-27-2023 10:38-0400Heart rate76 /[facility] 10-27-2023 10:38-0400Respiratory rate20 /[facility] 10-27-2023 10:38-4291WkW9% (BldA) [Mass fraction]96 %[facility]06-14-2024 10:38-0400Systolic blood iabvixkh725 mm[Hg][facility]04-24-2024 07:22-0400Body orqrhp045.18 cm[facility]04-24-2024 07:22-0400Body mass index (BMI) [Ratio]34.1 kg/m2 [facility]04-24-2024 07:22-0400Body suvdvd63.93 kg [facility]04-24-2024 07:22-0400Diastolic blood mm[Hg][facility]04-24-2024 07:22-0400Heart rate72 /min [facility]04-24-2024 07:22-0400Respiratory rate16 /min [facility]04-24-2024 07:22-7922UkL6% (BldA) [Mass fraction]98 %[facility]04-24-2024 07:22-0400Systolic blood ondnjzsa049 mm[Hg][facility]02-28-2024 07:41-0500 Body pixhbv691.18 [facility]02-28-2024 07:41-0500Body mass index (BMI) [Ratio]33 kg/m3NmukjqptzRegional Medical Center02-28-2024 07:41-0500Body qiknsm62.82 kgReg[facility]02-28-2024 07:41-0500Diastolic blood baypupol82 mm[Hg][facility] 07-12-2023 07:41-0500Heart rate76 /minReg[facility] 07-12-2023 07:41-0500Respiratory rate16 /[facility] 07-12-2023 07:41-3623BkD2% (BldA) [Mass fraction]97 %[facility]02-28-2024 07:41-0500Systolic blood mm[Hg][facility]01-17-2024 07:45-0500Body lpugcx834.18 cmHeather Missler Other [employer] Other 01-17-2024 07:45-0500Body mass index (BMI) [Ratio] 34.81 kg/i3Bnrdmus Missler Other [employer] Other 01-17-2024 07:45-0500Body lickcq533.84 kgHeather Missler Other [employer] Other 01-17-2024 07:45-0500Diastolic blood zwxaivyj51 mm[Hg] Isabel Missler Other [employer] Other 01-17-2024 07:45-0500Respiratory rate18 /minHeather Missler Other [employer] Other 01-17-2024 07:45-3406QnF9% (BldA) [Mass fraction]97 % Isabel Missler Other [employer] Other 01-17-2024 07:45-0500Systolic blood gahrswdf064 mm[Hg] Isabel Missler Other [employer] Other 12-08-2023 07:15-0500Body .18 cmHeather Missler Other [employer] Other 12-08-2023 07:15-0500Body mass index (BMI) [Ratio] 35.24 kg/q0Zwrlyes Missler Other [employer] Other 12-08-2023 07:15-0500Body zjychr007.06 kgHeather Missler Other [employer] Other 12-08-2023 07:15-0500Diastolic blood kvgqznal83 mm[Hg] Isabel Missler Other [employer] Other 12-08-2023 07:15-0500Respiratory rate18 /minHeather Missler Other [employer] Other 12-08-2023 07:15-1120XtW7% (BldA) [Mass fraction]95 % Isabel Missler Other [employer] Other 12-08-2023 07:15-0500Systolic blood nbhoprgp137 mm[Hg] Isabel Missler Other [employer] Other 11-10-2023 08:37-0500Body hxwswa414.2 cmAnneliese Hoyt MD Work Phone: [facility]11-10-2023 08:37-0500 Body mass index (BMI) [Ratio]34.93 kg/v6XyqzqcgAnneliese Hoyt MD Work Phone: [facility]11-10-2023 08:37-0500 Body pfnpmi093.15 kgAnneliese Hoyt MD Work Phone: [facility]11-10-2023 08:37-0500 Diastolic blood gtlgzbog95 mm[Hg]Anneliese Hoyt MD Work Phone: [facility]11-10-2023 08:37-0500 Heart rate64 /minAnneliese Hoyt MD Work Phone: [facility]11-10-2023 08:37-0500 Systolic blood rwwlxlak569 mm[Hg]Anneliese Hoyt MD Work Phone: [facility]11-02-2023 08:00-0400 Body hfuput195.18 cmDawn Fitt Other [employer] Other 11-02-2023 08:00-0400Body mass index (BMI) [Ratio] 34.83 kg/m2Dawn Fitt Other [employer] Other 11-02-2023 08:00-0400Body cyaynm718.88 kgDawn Fitt Other [employer] Other 10-27-2023 07:45-0400Body .18 cmHeather ler Other [employer] Other 10-27-2023 07:45-0400Body mass index (BMI) [Ratio] 35.13 kg/m2Htrwedm Missler Other [employer] Other 10-27-2023 07:45-0400Body basifv584.74 kgHeather Missler Other [employer] Other 10-27-2023 07:45-0400Diastolic blood qesxcklz41 mm[Hg] Isabel Missler Other [employer] Other 10-27-2023 07:45-0400Respiratory rate18 /minHeather Missler Other [employer] Other 10-27-2023 07:45-4980JdM0% (BldA) [Mass fraction]97 % Isabel Missler Other [employer] Other 10-27-2023 07:45-0400Systolic blood wsegcvoi160 mm[Hg] Isabel Missler Other [employer] Other 09-15-2023 08:15-0400Body uicxdn087.18 cmHeather Missler Other [employer] Other 09-15-2023 08:15-0400Body mass index (BMI) [Ratio]34.8 kg/w9Rxbycaq Missler Other [employer] Other 09-15-2023 08:15-0400Body .79 kgHeather Missler Other [employer] Other 09-15-2023 08:15-0400Diastolic blood xuukjsal80 mm[Hg] Isabel Missler Other [employer] Other 09-15-2023 08:15-0400Respiratory rate18 /minHeather Missler Other [employer] Other 09-15-2023 08:15-0464BbZ3% (BldA) [Mass fraction]99 % Isabel Missler Other [employer] Other 09-15-2023 08:15-0400Systolic blood bebrvqxa747 mm[Hg] Isabelher Calller Other [employer] Other 08-23-2023 16:55-0400Body ppcczyfytkb42.3 [degF]MD Rafael Salamanca Work Phone: 1(689)[address]08-23-2023 16:55-0400 Diastolic blood ipohggvl90 mm[Hg]MD Rafael Salamanca Work Phone: 1(561)[address] [place], [place] 1847108-23-2023 16:55-0400 Heart rate61 /minMD Rafael Salamanca Work Phone: 1(442)[address] [place], [place] 1847108-23-2023 16:55-0400 Respiratory rate18 /minMD Rafael Salamanca Work Phone: 1(551)[address] [place], [place] 1847108-23-2023 16:55-0400 SaO2% (BldA) [Mass fraction]97 %MD Rafael Salamanca Work Phone: 1(177)[address] [place], [place] 1847108-23-2023 16:55-0400 Systolic blood pxgmghyz016 mm[Hg]MD Rafael Salamanca Work Phone: 1(672)[address] [place], [place] 1847108-23-2023 05:53-0400 Body .3 kgMD Rafael Salamanca Work Phone: 1(823)[address] [place], [place] 1847108-22-2023 17:09-0400 Body pnkaij284.18 cmMD Rafael Salamanca Work Phone: 1(649)[address] [place], [place] 1847108-22-2023 16:05-0400 Body syemzvrrkdv93.8 [degF]MD Rafael Salamanca Work Phone: 1(368)[address] [place], [place] 1847108-22-2023 16:05-0400 Diastolic blood gwxraszt42 mm[Hg]MD Rafael Salamanca Work Phone: 1(825)[address] [place], [place] 1847108-22-2023 16:05-0400 Heart rate76 /minMD Rafael Salamanca Work Phone: 1(640)923-[address] [place], [place] 4394308-22-2023 16:05-0400 Respiratory rate20 /minMD Rafael Salamanca Work Phone: 1(508)612-[address] [place], [place] 4394308-22-2023 16:05-0400 SaO2% (BldA) [Mass fraction]98 %MD Rafael Salamanca Work Phone: 1(343)300-[address] [place], [place] 4394308-22-2023 16:05-0400 Systolic blood mm[Hg]MD Rafael Salamanca Work Phone: 1(951)[address]08-22-2023 10:17-0400 Body qfjhep884.18 cmMD Rafael Salamanca Work Phone: 1(550)[address]08-22-2023 10:17-0400 Body bawnxl052.9 kgMD Rafael Salamanca Work Phone: 1(384)214-[address] [place], [place] 4394308-04-2023 09:15-0400 Body .18 cmHeather ler Other [employer] Other 08-04-2023 09:15-0400Body mass index (BMI) [Ratio] 36.38 kg/r0Xhtnidn Missler Other [employer] Other 08-04-2023 09:15-0400Body xmobgr082.37 kgHeather Missler Other [employer] Other 08-04-2023 09:15-0400Diastolic blood nwingbav00 mm[Hg] Isabelher Kent Other [employer] Other 08-04-2023 09:15-0400Respiratory rate18 /minHeather Missler Other [employer] Other 08-04-2023 09:15-0252DrG7% (BldA) [Mass fraction]98 % Isabel Kent Other [facility] [employer] Other 08-04-2023 09:15-0400Systolic blood khxzutgx648 mm[Hg] Isabel Kent Other [facility] [employer] Other 06-10-2022 08:38-0400Body rhfayb302.18 cmDouglas Tonya Hoy Work Phone: 1(133)[phone]-Kfatu [facility] [address] [place] Work Phone: 1(495) 374-494106-10-2022 08:38-0400Body mass index (BMI) [Ratio] 36.81 kg/c9Edldamp Tonya Hoy Work Phone: 1(932)[phone]-Tkrnw [facility] [address] [place] Work Phone: 1(243)768-476-564038-12 08:38-0400Body surface area Derived from formula2.17 w5Cwnjxbs Tonya Hoy Work Phone: 1(292)[phone]-Akxji [facility] [address] [place] Work Phone: 1(795)[phone] 08:38-0400Body gowpfc599.6 kgDouglas M Hoy Work Phone: 1(556)[phone]-Bfvad [facility] [address] [place] Work Phone: 1(487)152-107-333547-18 08:38-0400Diastolic blood kuxnxyip68 mm[Hg] Rafael M Hoy Work Phone: 1(896)[phone]-Jdkja [facility] [address] [place] Work Phone: 1(924)261-423-212887-56360888-96-6086 08:38-0400Diastolic blood yqyuhlgu60 mm[Hg] Rafael M Hoy Work Phone: 1(237)[phone]-Mftts [facility] [address] [place] Work Phone: 1(079)844-564-668784-10 08:38-0400Heart rate63 /minDouglas M Hoy Work Phone: 1(428)[phone]-Sopgl [facility] [address] [place] Work Phone: 1(622) 553-279906-10-2022 08:38-0400Systolic blood irrmpzpu559 mm[Hg] Rafael Salamanca Work Phone: 1(773)[phone]-Eotcg [facility] [address] [place] Work Phone: 1(463) 924-381306-10-2022 08:38-0400Systolic blood wkhagztt001 mm[Hg] Rafael Salamanca Work Phone: 1(330)[phone]-Jkril [facility] [address] [place] Work Phone: 1(575) 864-693805-25-2022 00:00-785208 1Douglkathleen Salamanca Work Phone: 1(024)[phone]-Vzmsg [facility] [address] [place] Work Phone: Comment on above:[id number] Encounters Encounter DateEncounter TypeCare ProviderFacilityStart: 02-11-2025 End: 54-34-0036rzslnkgsdrOealxskzk L LyFacility:[facility] Centertart: 47-92-0465Rat-patient / Non-visitCatherine L Ly DO-[facility] Work Phone: Start: 02-10-2025 End: 47-13-5893zcmqolhoheSldanfe M Hoy MD Work Phone: [facility] Work Phone: Start: 02-10-2025 End: 78-93-4991Uboclnp encounter procedureJacquedaniel Ruiz [facility] Work Phone: Start: 01-06-2025 End: 12-41-6644iurowystyaKxbicen M Hoy MD Work Phone: [facility] Work Phone: Start: 01-06-2025 End: 49-19-1023Zghdprw encounter procedureCatherine L Ly DO-[facility] Work Phone: Start: 12-26-2024 End: 99-60-5161yltixeoaxjJmolapc M Hoy MD Work Phone: [facility] Work Phone: Start: 12-26-2024 End: 00-26-9684Xvtrbla encounter procedureRobert Marcelino Castaneda MD-[facility] Work Phone: Start: 12-24-2024 End: 35-88-4444Oaodqzx encounter procedureRafael Castaneda MD-Lab [facility] Work Phone: Start: 12-24-2024 End: 92-73-4224btcrpjezusNpxfvft M Hoy MD Work Phone: [facility] Work Phone: Start: 12-20-2024 End: 53-86-6738Zcwbvtv encounter procedureRafael Castaneda MD-Lab [facility] Work Phone: Start: 12-20-2024 End: 25-79-5297Ymuratbg ReferredRenny Finch [facility] HospitalStart: 12-20-2024 End: 02-06-8361dsskajfydnOjdgvgu M Hoy MD Work Phone: [facility] Work Phone: Start: 12-03-2024 End: 17-56-6071Wftnsme encounter procedureRafael Castaneda MD-Lab [facility] Work Phone: Start: 12-03-2024 End: 07-44-5693yqbfnatyrjIdyfyrx M Hoy MD Work Phone: [facility] Work Phone: Start: 12-03-2024 End: 42-64-1617jfnjkrhnikGcdtaul R NILLFacility:[facility] Hospitaltart: 12-03-2024 End: 42-14-8448Kmsdctn encounter procedureMichael R NILL [phone]-[facility]ilmxOhio[facility] [place] Start: 38-59-8218sgvvonkbafIbeznne NILLFacility: [place]walkStart: 20-95-0614mgsqnxtntcJtjavaw NILLFacility: [place]vueStart: 11-23-2024 End: 60-53-6300Jcldhcs encounter procedureRafael Castaneda MD-Ultrasound [facility] Work Phone: Start: 11-23-2024 End: 84-76-5212sqilhwhwuxRjwakvj M Hoy MD Work Phone: [facility] Work Phone: Start: 11-21-2024 End: 65-96-5418Vrwvqed encounter procedureRafael Castaneda MD-[facility] Azletart: 11-21-2024 End: 93-01-5836rwkokeewdnZsmeebh M Hoy MD Work Phone: [facility] Work Phone: Start: 11-20-2024 End: 05-89-7562Xylmch outpatient visit 15 minutesNickey Montague DPM Work Phone: [facility] [place] PODComment on above:Capsulitis of metatarsophalangeal (MTP) joint of left foot (Primary Dx); Bone spur of left foot; DJD (degenerative joint disease), ankle and foot, leftStart: 11-20-2024 End: 43-86-7493aqohgjjzxoFAVWETNY A BROWNNot AvailableStart: 11-20-2024 End: 90-82-0364Dmmood flowsheetNickey Estrada Brown DPM Work Phone: [facility] [place] PODStart: 11-20-2024 End: 75-35-4765Btradx flowsheetNickey Estrada Brown DPM Work Phone: [facility] [place] PODStart: 11-06-2024 End: 68-01-2483Lzseln outpatient new 30 minutesJoseph Montague DPM Work Phone: [facility] [place] PODComment on above:DJD (degenerative joint disease), ankle and foot, left (Primary Dx); Bone spur of left foot; Capsulitis of metatarsophalangeal (MTP) joint of left footStart: 11-06-2024 End: 75-28-3942onxirlbtbdEMJLKGON A BROWNNot AvailableStart: 11-06-2024 End: 19-34-3122Wcijgf flowsheetJoseph Montague DPM Work Phone: noMS [place] PODStart: 11-06-2024 End: 22-98-4264Ofctpz Frannie Montague DPM Work Phone: [facility] [place] PODStart: 10-16-2024 End: 81-50-4966Sgrqqnv encounter procedureRafael Salamanca MD Work Phone: [facility]-CT Scan [facility] Work Phone: Start: 10-16-2024 End: 69-95-4557guzzjakvmbFdpmvag M Hoy MD Work Phone: [facility] Work Phone: Start: 09-27-2024 End: 41-28-2626Jookwaf encounter procedureRafael Salamanca MD Work Phone: [facility]-XRay [facility] Work Phone: Start: 09-27-2024 End: 17-78-1361zitpfcrifbXbgqbac M HoyFacility:[facility] Start: 09-11-2024 End: 65-43-0811zplncmqcmkVpruexsmbLancaster Municipal Hospital Work Phone: Start: 09-11-2024 End: 51-22-2548Bdjrgcb encounter procedureNov[facility] GroupST[facility] Work Phone: Start: 06-12-2024 End: 74-26-1092yzyismmdijPrietrzfcLancaster Municipal Hospital Work Phone: Start: 06-12-2024 End: 89-97-7481Tgdpyyc encounter procedureNov[facility] Health [facility] Group-[facility] Work Phone: Start: 03-22-2024 End: 15-74-4674Jwkqat outpatient visit 15 minutesAnneliese Hoyt MD Work Phone: [facility] on above:Precordial pain (Primary Dx); Essential hypertension, benign; Diverticulosis; BMI 32.0-32.9,adult; Never smoked tobaccoStart: 03-22-2024 End: 06-01-4647xqhwdengzoFTDHPSSPhoebe Sumter Medical CenterStart: 02-14-2024 End: 88-92-3192ggfpgbzbdhKxunjqmkfLancaster Municipal Hospital Work Phone: Start: 02-14-2024 End: 74-68-8888Dnynxfx encounter procedureNov[facility] Work Phone: Start: 01-19-2024 End: 51-58-6760Jod-patient / Non-visitNovant Health [facility] Physician [facility] Work Phone: Start: 12-20-2023 End: 06-11-9070ywwnkplgonWQ Rafael M Hoy Work Phone: [facility] Work Phone: Start: 12-20-2023 End: 62-52-1354Wgnyfyb encounter procedureMD Rafael Hoy Work Phone: [facility] Work Phone: Start: 11-13-2023 End: 35-34-7679zfbkfxfrsaUJ Rafael M Hoy Work Phone: [facility] Work Phone: Start: 11-13-2023 End: 65-19-2148Mzuehulv ReferredMD Rafael Hoy Work Phone: [facility] CtrLatrobe HospitalStart: 10-27-2023 End: 59-03-5748ekklflleebAcqkljorxMer[facility] Health [facility] Work Phone: Start: 10-27-2023 End: 92-87-5560Kmdqovk encounter procedureNov[facility] Health [facility] Physician GroupST. JO[facility]PH[facility] Work Phone: Start: 09-06-2023 End: 27-63-0246ryovclwyniVcxhmqskoLancaster Municipal Hospital Work Phone: Start: 09-06-2023 End: 55-44-2437Zzfzaev encounter procedureNovant Health [facility] Physician GroupST. [facility] Work Phone: Start: 07-12-2023 End: 92-68-3244Mxsuodt encounter procedureNovant Health [facility] Physician GroupST. [facility] Work Phone: Start: 05-31-2023(wmnempf/u) [employer] Employee F/Scooter KentLifebr[facility] Coord[facility] Care ClinicStart: 05-31-2023 End: 48-36-6852yfuawijmufSfmbqux Donte Other [employer] Other Start: 04-21-2023(wmnempf/u) [employer] Employee F/Scooter KentLifebr[facility] Coord[facility] Care ClinicStart: 04-21-2023 End: 82-07-7793dubsueqjewQwazvvt Donte Other [employer] Other Start: 03-24-2023 End: 74-15-6808Mkonxq outpatient visit 15 minutesAnneliese Hoyt MD Work Phone: [facility]Comv[facility] on above:Precordial pain (Primary Dx); Essential hypertension, benign; BMI 34.0-34.9,adult; Encounter to discuss test resultsStart: 03-16-2023([facility]) [place] Initial ProviderDawgonzalez Quiroz Coordinated Care ClinicStart: 03-16-2023 End: 54-82-5785zxbhcadyumIcmm Fitt Other [employer] Other Start: 03-14-2023 End: 01-11-2912kuxkkqbqfnLQQGBCOGeorgetown Behavioral Hospitaltart: 03-10-2023(wmnempf/u) [employer] Employee F/Scooter [employer] [facility] ClinicStart: 03-10-2023 End: 99-96-7844tgwupvmafxUmtnkrt Missler Other [employer] Other Start: 02-14-2023 End: 62-45-1169djybwdqasjXJGLYRQGeorgetown Behavioral Hospitaltart: 01-27-2023(wmnempf/u) [employer] Employee F/Scooter [facility] Care ClinicStart: 01-27-2023 End: 46-25-2455fbwfrvjdfqJazcrdl Missler Other [employer] [facility] [employer] Other Start: 49-69-2195Oczmzrnpy encounterDodemetria Salamanca Work Phone: [phone]-H[address] [place] [address] [facility] [address] DO Work Phone: Start: 01-09-2023 End: 83-07-3739npztenpadlOpabqap Missler Other [employer] [facility] [employer] Other Start: 00-51-0609Hsixowrgs encounterHeanenita CallBoise [facility] Coord[facility] Care ClinicStart: 77-13-3053isdfnxvtynByBelem SalamancaFacility:9090Start: 01-03-2023 End: 10-90-4108Fhvlnilebs and management of inpatientMD Rafael Reedangelito Work Phone: [facility] Work Phone: Start: 01-03-2023 End: 21-94-3292glpmngqyxxl encounterMD Rafael Salamanca Work Phone: [facility] Work Phone: Start: 12-16-2022(WMNEMPNEW) [facility] Mew EmployeeHeaValley Children’[facility] Hospital Coordinated Care ClinicStart: 12-16-2022 End: 68-20-5146gbandlkmpgXoyppal Donte Other [facility] [employer] Other Start: 25-92-8526Bjcvdmpgpx RecurringMD Rafael Hoy Work Phone: [facility] Work Phone: Start: 11-08-2022 End: 72-45-6986zpcphohmmjXV Rafael M Hoy Work Phone: [facility] Work Phone: Start: 11-08-2022 End: 49-69-9649Fdikljji ReferredMD Rafael Hoy Work Phone: [facility]-Employee Benefit ScreeningStart: 08-23-2022 End: 04-62-3963yxcprppqvxCbbclxss [place] Other [place] [employer] Other Start: 61-95-6586Bhlodu outpatient visit 15 minutes Sharla Tillman OrthopedicsStart: 08-16-2022 End: 02-94-1355glmmczpgjyTO Rafael M Hoy Work Phone: [facility] Work Phone: Start: 08-16-2022 End: 98-27-3862Bavlrak encounter procedureMD Rafael Hoy Work Phone: [facility]-Lab Main [place] Work Phone: Start: 08-15-2022 End: 27-32-8039hgroklmviqRH RAFAEL HOY .Facility:M2Yyhdt: 94-91-5533Mdsvrk outpatient new 30 minutesSharla Tillman OrthopedicsStart: 08-08-2022 End: 80-90-9990zbblszatduMO Rafael M Hoy Work Phone: [facility] Work Phone: Start: 08-08-2022 End: 66-97-7520Tnlteic encounter procedureMD Rafael Hoangelito Work Phone: [facility] [place] [facility] Start: 39-53-1022Nymjl Gato Castaneda Cheikh Work Phone: [phone]-Zrlir [facility] 250 DO Work Phone: Start: 04-13-2022 End: 28-34-0321xqmkagngieBK RAFAEL SALAMANCA .Facility:Z7Njeuz: 12-16-2021 End: 63-32-5502Thyestim ReferredMD Rafael Salamanca Work Phone: [facility]-Employee Benefit ScreeningStart: 12-09-2021 End: 24-69-0363Kelnyca encounter procedureMD Rafael Hoangelito Work Phone: [facility]-[place] SwabStart: 42-81-4146Urprz Gato Castaneda Cheikh Work Phone: [phone]-Beatt [facility] [address] [place] Work Phone: Start: 10-27-2021 End: 55-81-1698Cwjxwfz encounter procedureMD Rafael Salamanca Work Phone: [facility]-Electrodiagnostics Start: 05-04-2021([facility] C Vac) [facility]Walker [facility] Coord[facility] ClinicStart: 05-04-2021 End: 87-16-7237qgtplesgsiXaum Fitt Other [place] [employer] Other Procedures DateProcedureProcedure DetailPerforming ClinicianStart: 88-89-8037Caval radiography of pelvisDodemetria Salamanca MD Work Phone: Start: 98-17-5880S-ray of right knee, four views Rafael Salamanca MD Work Phone: Start: 32-44-8864Puqkf Sho Salamanca MD Work Phone: Start: 66-20-5524Lbphf Sho Salamanca MD Work Phone: [phone]: 03-31-6051Lrokg Sho Salamanca MD Work Phone: Start: 35-80-0801Bztihhogigipdsz of abdomenRafael Salamanca MD Work Phone: Start: 35-51-1979GF ankle without contrastRafael Salamanca MD Work Phone: [phone]: 86-90-4884NY of left footRafael Salamanca MD Work Phone: [phone]: 49-70-6335U-ray of left footRafael Salamanca MD Work Phone: Start: 66-43-6325ZE ANGIO CORONARY ART WITH HEARTFLOW IF SCORE >30%MOAMAURI INMANIStart: 95-08-2973JF CARDIAC SCORING WO IV CONTRASTMOURCHIP INMANIStart: 09-72-1233Jsnxjjde tomography angiography of abdominal and/or pelvic blood vesselMD Rafael Hoy Work Phone: Start: 58-37-8106ZN of chestMD Rafael Hoy Work Phone: [phone]-: 80-95-5747Ziseb X-ray of right wristMD Rafael Hoy Work Phone: Start: 25-60-8664Z-ray of right kneeMD Rafael Hoy Work Phone: [phone]-: 78-19-2526Asgwapezdjlw myocardial perfusion stress studyMD Rafael Hoy Work Phone: Start: 12-40-4853OmwhtpvahdsDweomkf Traboulssi MD Work Phone: Start: 68-62-1872UgfghkyhgltCfuowpi NILL Start: 56-95-7717VcvieeqnuytqbgtcknxsnqpjqvZykrbqc NILL Start: 14-03-2411ijnv knee arthroscopyMichael NILL Arthroscopy of kneeMichael NILL Comment on above:rightx 2ColonoscopyDouglas M Hoy Work Phone: Excision of neoplasmDougporfirio Castaneda Hoangelito Work Phone: Comment on above:off collar bone;Operative procedure on kneeDouglas M Hoy Work Phone: Reduction mammoplastyDouglas M Hoy Work Phone: Reduction mammoplastyMichael NILL SARS Antigen (LFIA)MD Hall Cheikh Work Phone: 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 HealthcareStart: 17-41-1102Gffbg radiography of pelvisXR pelvis 1-2VBarney Children's Medical Centertart: 56-01-6666N-ray of right knee, four viewsXR knee RT 4V*[facility] Centertart: 63-68-7021BI Knee - right 4 ViewsBarney Children's Medical Centertart: 06-44-7546HI Pelvis 1 or 2 ViewsRegional Medical Center Start: 12-24-2024 End: 60-48-0577Gdpxs cultureBarney Children's Medical Centertart: 12-24-2024 Bacteria identified in Urine by CultureUrine CultureBarney Children's Medical Centertart: 64-59-3137Aczyvnye identified in Urine by CultureUrine Culture [facility] Centertart: 95-48-6483Jrvmq cultureBarney Children's Medical Centertart: 58-26-0124Vxvrkika identified in Urine by Culture Urine CultureBarney Children's Medical Centertart: 82-61-2389Pgbnl culture [facility] Centertart: 11-20-2024 End: 75-50-4412Pycvhco encounter procedureNOMS [place] PODComment on above:Capsulitis of metatarsophalangeal (MTP) joint of left foot (Primary Dx); Bone spur of left foot; DJD (degenerative joint disease), ankle and foot, leftStart: 11-06-2024 End: 20-56-9916Xiewwcm encounter ufwvzrkhi60/25/2025 3:50 PM EDT Office Visit [facility] [address] [place] [address] Joseph Montague DPM [address] [address] ArrivedNOMS [place] PODComment on above:ArrivedStart: 01-14-2024 COVID-19 Vaccine ( season)COVID-19 Vaccine ( season) [facility] HospitalStart: 83-13-1843WNM, Provider: Anneliese Hoyt, Status: Pen, Time: 1:20 PMFUV, Provider: Anneliese Hoyt, Status: Pen, Time: 1:20 [facility] 250 DO Work Phone: Start: 75-79-8935UbgqzqbxzRegional Medical Center Start: 78-04-4883Igmelqiv to cardiologistBarney Children's Medical Centertart: 60-76-0366Kybesjwv admissionBarney Children's Medical Centertart: 11-08-2022 [facility] Centertart: 66-51-7972GwtrqecvxBarney Children's Medical Centertart: 53-24-6426ZST, Provider: Anneliese Hoyt, Status: Pen, Time: 9:20 AMFUV, Provider: Anneliese Hoyt, Status: Pen, Time: 9:20 AMMP-[facility] [address] [place] Work Phone: Start: 12-16-2021 End: 81-75-4651Qivizuvg ReferredDeparted ReferredThe [facility]- Employee Benefit ScreeningStart: 90-16-1376Osduzkkfh for malignant neoplasm of breastMammogramUnMercy Health Kings Mills Hospital: 91-72-6964GXPRNIGS, Provider: KATHIA BEARDEN INSTALLATION MANAGER 1,[id number], Status: Pen, Time: 1:00 PM NURSEVST, Provider: KATHIA BEARDEN INSTALLATION MANAGER 1,[id number], Status: Pen, Time: 1:00 PM-[facility] [address] [place] Work Phone: Start: 36-49-3755RNOHG-19 Vaccine (4 - Moderna series) COVID-19 Vaccine (4 - Moderna series)[facility]: 54-66-1891Msdtcr Vaccines (1 of 2)Zoster Vaccines (1 of 2)[facility]: 08-46-4340FZC Vaccines (1 of 1 - Standard series)MMR Vaccines (1 of 1 - Standard series)[facility]: 1992 Screening for malignant neoplasm of cervixNOMS HealthcareStart: 1984 DTaP/Tdap/Td Vaccines (1 - Tdap)DTaP/Tdap/Td Vaccines (1 - Tdap)[facility]: 20-63-9289Xwbgkgzqr for malignant neoplasm of cervixUnMercy Health Kings Mills Hospital: 39-52-0427Tpxdjfxaq C screening Hepatitis C ScreeningHolzer Hospital: 82-99-5014GLJ screeningHIV ScreeningHolzer Hospital: 11-35-9713Oecxt panelLipid PanelUnMercy Health Kings Mills Hospital: 78-35-7536Ydfwduuqb for malignant neoplasm of colonUnMercy Health [facility] Hospital: 1960 Yearly Adult PhysicalYearly Adult PhysicalUnMercy Hospital Glucose measurement estimated from glycated hemoglobinRegional Medical CenterHemoglobin A1c measurementRegional Medical CenterPatient EducationStomach polyps High-fiber diet Gastritis - Discharge instructions Hiatal hernia - Discharge instructions [facility] Diverticulosis Discharge Instructions [facility] Hemorrhoids Discharge Instructions Know your Meds [facility] Work Phone: Patient referralThe [facility] Work Phone: Thyrotropin [Units/volume] in Serum or PlasmaRegional Medical CenterThyroxine (T4) free index in Serum or Plasma by calculationRegional Medical CenterThyroxine measurementRegional Medical CenterTriiodothyronine (T3) [Mass/volume] in Serum or Plasma Regional Medical CenterTriiodothyronine resin uptake (T3RU) in Serum or PlasmaRegional Medical Center Immunizations Immunization DateImmunizationNotesCare WpkkvlzfTmqrldvr29-45-0723cgefqrjqg, seasonal, injectable, preservative Farhad Salamanca MD Work Phone: [facility]10-14-2024influenza virus vaccine, unspecified formulationJoseph Montague DPM Work Phone: [phone]-XefqqOhiohealth [facility] Surgery [place] 35-06-7334lojivlncc, injectable, quadrivalent, preservative freeAnneliese Hoyt MD Work Phone: [facility] Work Phone: [phone]-74 Tomás Ayon Other [facility]02-02-2021Moderna COVID-19 Vaccine 100 MCG/0.5ML Intramuscular SuspensionRafael Salamanca Work Phone: [facility]01-05-2021Moderna COVID-19 Vaccine 100 MCG/0.5ML Intramuscular Suspensionuglas Tonya Salamanca Work Phone: [facility]09-01-2020influenza, injectable, quadrivalent, preservative Farhad Salamanca Work Phone: [phone]-ZaydbSt. [facility]s [facility] [address] [place] Work Phone: [phone] vvngztrsu-M0E0-34, preservative-free, injectableRafael Salamanca Work Phone: [phone]-Kdvmv [facility] [address] [place] Work Phone: Payers DatePayer CategoryPayerPolicy [id number] Health Insurance [id number] Care (Private) [facility] MED [id number] [id number] [id number] 2.840.1.798240.3.57[id number] 2.16.840.1.029235.3.57[id number] 2.16.840.1.702058.3.57[id number] 2.16.840.1.429916.3.57[id number] 2.16.840.1.429558.3.57[id number] 2.16.840.1.873633.3.57[id number] 2.16.840.1.453086.3.57[id number] 2.16.840.1.426895.19 Self-paySelf [id number]'s Compensation [facility] [id number] Social History DateTypeDetailFacilityStart: 03-24-2023 End: 37-56-3332Cgkquprq alcohol occasionallyConsumes alcohol occasionallyNorth [employer] Other Start: 03-24-2023 End: 45-50-9181Ttw [facility]igned At [facility] Hospitaltart: 09-30-2021 End: 79-78-0796Yumdonl smoking status NHISNever smoked tobacco (finding) [facility] Centertart: 60-02-3050Rzy Assigned At [facility] Hospitaltart: 03-24-2023 End: 87-95-1397Kehcfgh use and exposureSmokeless tobacco non-userUnMercy Hospital Work Phone: Start: 03-24-2023 End: 75-93-4130Hlddgwo intakeLifetime non-drinker (finding)[facility] Work Phone: Start: 07-56-3430Ojr Assigned At BirthNot on file [facility] Work Phone: Start: 03-14-2023 End: 90-30-8328Jqirjhnx to SARS-CoV-2 (event)Not sureUnMercy HospitalStart: 08-26-2009 End: 29-85-4756YdhXxsqbm (finding)Regional Medical CenterTobacco smoking status NHISTobacco smoking consumption unknownNOMS HealthcareStart: 11-06-2024 End: 65-79-0827Brzxhezti beverage intakeCurrent drinker of alcohol (finding)[facility] HealthcareTobacco smoking statusNeThe [facility] General Surgery [place] [facility] Procedure CodeEquipment CodeEquipment Original TextEquipment IdentifierDates [id number]: 02-24-2020 End: 57-91-4654Tmq Needle, Diabetic (Ulticare Pen Needle) 31 gauge x 3/16 needleStart: 12-37-3260Xwl Needle, Diabetic (Ulticare Pen Needle) 31 gauge x 3/16 needleStart: 92-55-7085Ifq Needle, Diabetic (Ulticare Pen Needle) 31 gauge x 3/16 needleStart: 52-47-6836Ldy Needle, Diabetic (Ulticare Pen Needle) 31 gauge x 3/16 needleStart: 67-67-8875Reh Needle, Diabetic (Ulticare Pen Needle) 31 gauge x 3/16 needleStart: 07-07-2023 End: 59-34-4536Wpk Needle, Diabetic (Ulticare Pen Needle) 31 gauge x 3/16 needleStart: 07-07-2023 End: 45-46-0232Pxl Needle, Diabetic (Ulticare Pen Needle) 31 gauge x 3/16 needleStart: 07-07-2023 End: 40-98-2530Lty Needle, Diabetic (Ulticare Pen Needle) 31 gauge x 3/16 needleStart: 07-07-2023 End: 49-47-7967Lol Needle, Diabetic (Ulticare Pen Needle) 31 gauge x 3/16 needleStart: 07-07-2023 End: 14-86-7059Rww Needle, Diabetic (Ulticare Pen Needle) 31 gauge x 3/16 needleStart: 07-07-2023 End: 28-79-8071Igc Needle, Diabetic (Ulticare Pen Needle) 31 gauge x 3/16 needleStart: 07-07-2023 End: 70-90-6159Cvv Needle, Diabetic (Ulticare Pen Needle) 31 gauge x 3/16 needleStart: 07-07-2023 End: 29-35-3313Uzs Needle, Diabetic (Ulticare Pen Needle) 31 gauge x 3/16 needleStart: 07-07-2023 End: 35-43-1678Tal Needle, Diabetic (Ulticare Pen Needle) 31 gauge x 3/16 needleStart: 07-07-2023 End: 90-61-7360Qov Needle, Diabetic (Ulticare Pen Needle) 31 gauge x 3/16 needleStart: 07-07-2023 End: 01-10-6745Ntb Needle, Diabetic (Ulticare Pen Needle) 31 gauge x 3/16 needleStart: 07-07-2023 End: 37-01-6786Xqq Needle, Diabetic (Ulticare Pen Needle) 31 gauge x 3/16 needleStart: 07-07-2023 End: 71-23-1902Bug Needle, Diabetic (Ulticare Pen Needle) 31 gauge x 3/16 needleStart: 07-07-2023 End: 18-32-3784Igi Needle, Diabetic (Ulticare Pen Needle) 31 gauge x 3/16 needleStart: 07-07-2023 End: 54-15-7518Jsv Needle, Diabetic (Ulticare Pen Needle) 31 gauge x 3/16 needleStart: 07-07-2023 End: 12-20-2023 Goals DatePatient GoalDesired Activity/State Functional Status UivaKsuajaqbfzXvxionSrmdazor03-85-7437Raxbobfewu statusPatient at Baseline [facility] Work Phone: [phone]kx statusPatient at Baseline [facility] Work Phone: Mental Status ZimzNtiphwiuuwTxgkukVopgjimj54-67-1852Issommfqq functionCognitive Status [facility] at BaselineOhio[facility] Work Phone: [phone]hismjt functionCognitive Status Patient at BaselineOhio[facility] Work Phone: Clinical Notes 05-04-2021 to 12-26-2024 Note Date & BfvnWshlYbgzsglu51-79-9224 Evaluation note* Diagnosis Onset Date Resolution Status Admit Date Primary osteoarthritis of right knee acuteAugust 2024 7:28am [facility] Work Phone: [phone] 552-602708-14-2025 Evaluation note* Diagnosis Onset Date Resolution Status Admit Date Primary osteoarthritis of right knee acuteAugust 2024 7:28amDiverticulitisacuteAugust 2024 2:05pmGERD (gastroesophageal reflux disease)acuteAugust 2024 2:05pmEncounter for immunizationacuteSeptember 2024 10:45am [facility] Work Phone: 1(613) 649-915007-22-2025 NoteGeneral Surgery Office/Clinic Note Chief Complaint consultation [...] no dysphagia; patient [place] [facility] [place], reportedly with just diverticulosis; [...] E&M of New Patient Moderate 45-59 Min 03124 2. Left flank pain (R10.9: Unspecified abdominal pain) see # 1 Ordered: CT Abdomen/Pelvis w/ Contrast E&M of New Patient Moderate 45-59 Min 91039 3. Nausea (R11.0: Nausea) see # 1 Ordered: CT Abdomen/Pelvis w/ Contrast E&M of New Patient Moderate 45-59 Min 07747 4. Abdominal bloating (R14.0: Abdominal distension (gaseous)) see # 1 Ordered: CT Abdomen/Pelvis w/ Contrast E&M of New Patient Moderate 45-59 Min 52963 5. Frequent loose stools (R19.7: Diarrhea, unspecified) see # 1 Ordered: CT Abdomen/Pelvis w/ Contrast E&M of (more content not included)...[facility] HospitalComment on above:Result Comment: Electronically Signed By: ZAYRA PACHECO, Anthony Barrera\Date and Time Signed: 12/03/24 09:16 HFF54-52-2054 Radiology Diagnostic study note [facility] [place] [address] Ultrasound Report Signed Patient: Nancy Hooper MR#: [id number] : 1960 Acct:[id number] Age/Sex: 64 / F ADM Date: 5 Loc: Room: Type: [facility] Attending Dr: Rafael Salamanca MD Ordering Provider: [...] Degroot M.D. 11/23/2024 5:13 PM Dictation Location: [employer]™-PC-17 Tech: Ramila Su Transcribed By: ADAM 11/23/241712 Dictated By: Shai Degroot II, MD 11/23/241711 Signed By: 11/23/241712 [facility] Work Phone: 1(265) 640-887107-09-2025 History of Present illness Narrative* Joseph Montague [...] 10/16/24 CT/CT foot LT wo con: M79.672 ([id number]) CT/CT ankle LT wo con: M79.672 CT [...] midfoot exostectomy in the future Discussed possible pihf-asu-uidwfew arch supports and patient may consider and continues ibuprofen and ice p.r.n. and may consider walking boot if not improved in the next few weeks Joseph Montague DPM documented in this encounterLee's Summit HospitalFuwtcmshoz19-70-9257 History of Present illness Narrative* Joseph Montague [...] 10/16/24 CT/CT foot LT wo con: M79.672 ([id number]) CT/CT ankle LT wo con: M79.672 CT [...] Patient may continue with conservative treatments including mfnj-xid-vyhvppg anti- inflammatories and other treatments suggested today. Patient may want to be s cheduled for surgical intervention in the near future. Discussed possibly left midfoot exostectomy in the future Joseph Montague DPM documented in this encounterLee's Summit HospitalHgqmahpqjj64-52-1572 Radiology Diagnostic study noteSELECT [facility] Main [place] [address] [place] [address] CT Scan Report Signed Patient: Nancy Hooper MR#: [id number] : 1960 Acct:[id number] Age/Sex: 64 / F ADM Date: 5 Loc: CT Room: Type: [facility] Attending Dr: Rafael Salamanca MD Copies to: Rafael Salamanca MD~ Ordering Provider: Rafael Salamanca MD Date of Service: 10/16/24 CT/CT foot LT wo con: M79.672 ([id number]) CT/CT ankle LT wo con: M79.672 CT [...] Degroot M.D. 10/16/2024 4:27 PM Dictation Location: [place] [address] Transcribed By: [facility] 10/16/24 1627 Dictated By: Shai Degroot II, MD 10/16/24 1601 Signed By: 10/16/24 1627 [facility] Work Phone: 1(211) 743-225304-30-2025 Evaluation note* Diagnosis Onset Date Resolution Status Admit Date Arthritis acuteApril 2024 8:10amGERD (gastroesophageal reflux disease)acuteApril 2024 8:10amObesity, Class I, BMI 30-34.9acuteApril 2024 8:10am PrediabetesacuteApril 2024 8:10amStrokeacuteApril 2024 8:10am Encounter for weight managementnoneactiveApril 2024 8:10am [facility] Work Phone: 1([phone]) 879-972811-08-2024 History of Present illness Narrative* Anneliese Hoyt [...] discussion and plan. documented in this [facility] Work Phone: [phone]) 121-289211-08-2024 Instructions* Patient Instructions* Regina Nieto LPN - [...] exercise. PRN Same medications documented in this encounterBarnesville Hospital Work Phone: 1(612) 536-856801-17-2024 Evaluation note* Encounter Date Diagnosis Assessment Notes [...] May,Encounter for weight management (ICD-10 - Z76.89) [employer] Other 12-08-2023 Evaluation note* Encounter Date Diagnosis [...] constipation. Not currently using any type of wcjh-ybz-xgrpgqw stool softener or fiber supplement. She continues [...] Apr,Encounter for weight management (ICD-10 - Z76.89) [facility] Other 11-10-2023 History of Present illness Narrative* Anneliese Hoyt MD - 03/24/2023 8:30 AM EST Subjective [...] to discuss test results documented in this encounterBarnesville Hospital Work Phone: [phone]) 638-836211-10-2023 Instructions* Patient Instructions* Ino Torres MA - [...] time of your visit. documented in this encounterBarnesville Hospital Work Phone: [phone]) 340-162511-02-2023 Evaluation note* Encounter Date Diagnosis Assessment Notes [...] start small to build motivation and momentum [facility] Other 10-27-2023 Evaluation note* Encounter Date Diagnosis [...] Feb,Encounter for weight management (ICD-10 - Z76.89) [facility] Other 09-15-2023 Evaluation note* Encounter Date Diagnosis [...] cancer she had her surgery performed at [facility]. Reinforced that itis is responsible for both [...] Jan,Encounter for weight management (ICD-10 - Z76.89) [facility] Other 08-23-2023 History and physical note Author Nabil Baker [facility] January 04, 2023 2:58amNote Date/TimeAugust 2022 6:25pmTh[place] [address] Hospitalist H&P Signed Patient: Nancy Hooper MR#: [id number] : 1960 Acct:[id number] Age/Sex: 62 / F Adm Date: 3 Loc: Room: [address] [place] [address] Type: ADM INOo Attending Dr: Nabil Baker [...] care Discussed with:?the medical team, the patient [facility] Medical History Benign tumor removed [...] % (Auto) 15.0 % (.) 01/03/23 10:20 [place] % (Auto) 8.4 % (.) 01/03/23 10:20 Eos % (Auto) 0.7 % (.) 01/03/23 10:20 Baso % (Auto) 1.0 % (.) 01/03/23 10:20 Nucleat RBC Rel Count 0.1 /100 WBC (0-0.5) 01/03/23 10:20 Neut # (Auto) 6.2 x10E3/uL (1.8-7.7) 01/03/23 10:20 Lymph # (Auto) 1.2 x10E3/uL (1.00-4.8) 01/03/23 10:20 [place] # (Auto) 0.7 x10E3/uL (0.0-0.8) 01/03/23 10:20 [...] pH 6.5 (5.0-9.0) 01/03/23 15:03 Ur Specific [place] 1.024 (1.001-1.030) 01/03/23 15:03 Urine Protein Negative [...] signed by Nabil Baker MD> 01/04/23 0258 [facility] Work Phone: 1([phone]) 750-893508-04-2023 Evaluation note* Encounter Date Diagnosis Assessment Notes [...] Strongly encouraged to take advantage of our drywall taper helper available at [facility] that can help work around limitations. [...] K57.92) Dec,Impaired fasting glucose (ICD-10 - R73.01) [facility] Other 04-11-2023 Evaluation note* Encounter Date Diagnosis [...] M25.561) Aug,Right wrist pain (ICD-10 - M25.531) [facility] Other 03-27-2023 Evaluation note* Encounter Date Diagnosis [...] M25.561) Jul,Right wrist pain (ICD-10 - M25.531) [facility] Other 12-21-2021 Evaluation note* Encounter Date Diagnosis Assessment Notes Treatment Notes Treatment Clinical Notes Apr, Encounter for immunization (ICD- 10 - Z23) Patient presents for COVID-19 vaccination BOOSTER. Pre-screening form answers evaluated with patient. Patient denies current illness or allergic reaction to component of COVID-19 vaccine. Patient provided with current copy of EUA. [facility] Other Consult note Author Kajal Loera [facility] January 04, 2023 4:27pmNote Date/TimeAugust 2022 4:24pm[place]ur[place] [address] Cardiology Consult Note Signed Patient: Nancy Hooper MR#: [id number] : 1960 Acct:[id number] Age/Sex: 62 / F Adm Date: 3 Loc: Room: [address] [place] [address] Type: ADM INOo Attending Dr: Nabil Baker MD Copies to: MD Kajal Zelaya MD, [facility] Nabil Baker MD~ Cardiology HPI History of Present Illness Consult Date: 01/04/23 Reason for Consult: Chest pain HPI: Ms. Hooper is a 62 year old female who works in [employer] [facility] [employer] and who is being seen at [...] All other review of system essentially unremarkable [facility] Medical History Benign tumor removed [...] (primary) hypertension Documented By: Kajal Loera MD, [facility] 3 1620 Signed By: <Electronically signed by MD PETTY oLera> 01/04/23 1628 [facility] Work Phone: Discharge summary Author Nabil Baker [facility] January 05, 2023 1:20amNote Date/TimeAugust 2022 3:34pmThur[place] [address] Discharge Summary Signed Patient: Nancy Hooper MR#: [id number] : 1960 Acct:[id number] Age/Sex: 62 / F Adm Date: 3 Loc: Room: [address] [place] [address]: Nabil Baker MD Copies to: [...] Appearance Clear, Urine pH 6.5, Ur Specific [place] 1.024, Urine Protein Negative, Urine Glucose (UA) [...] signed by Nabil Baker MD> 01/05/23 0120 [facility] Work Phone: Evaluation + Plan note No data available for this section [facility] General Surgery [place] Evaluation noteNo assessment information available [facility] Work Phone: Evaluation note* Diagnosis Onset Date Resolution Status Chest pain acuteHypertensionchronic [facility] Work Phone: Evaluation noteNo InformationNorth [employer] Other Evaluation note* Diagnosis Precordial pain- Primary Essential hypertension, benign BMI 34.0-34.9,adult Encounter to discuss test results Other specified counseling documented in this encounter [facility] Work Phone: Evaluation note* Diagnosis Onset Date Resolution Status Arthritis acuteGERD (gastroesophageal reflux disease)acuteObesity, Class I, BMI 30-34.9 acutePrediabetesacuteStrokeacuteEncounter for weight managementnoneactive ArthritisacuteGERD (gastroesophageal reflux disease)acuteObesity, Class I, BMI 30-34.9acutePrediabetesacuteStrokeacuteEncounter for weight managementnon[facility] Work Phone: Evaluation note* Diagnosis Onset Date Resolution Status Arthritis acuteGERD (gastroesophageal reflux disease)acuteObesity, Class I, BMI 30-34.9 acutePrediabetesacuteStrokeacuteEncounter for weight managementnon[facility] Work Phone: Evaluation note* Diagnosis Precordial pain- Primary Essential hypertension, benign Diverticulosis Diverticulosis of colon (without mention of hemorrhage) BMI 32.0-32.9,adult Never smoked tobacco documented in this encounter [facility] Work Phone: Evaluation note* Diagnosis Onset Date Resolution Status Admit Date Arthritis acuteJanuary 2024 8:06amGERD (gastroesophageal reflux disease)acuteJanuary 2024 8:06amObesity, Class I, BMI 30-34.9acuteJanuary 2024 8:06am PrediabetesacuteJanuary 2024 8:06amStrokeacuteJanuary 2024 8:06am Encounter for weight managementnoneactiveJanuary 2024 8:06am [facility] Work Phone: Evaluation note* Diagnosis Onset Date Resolution Status Admit Date Arthritis acuteApril 2024 8:10amGERD (gastroesophageal reflux disease)acuteApril 2024 8:10amObesity, Class I, BMI 30-34.9acuteApril 2024 8:10am PrediabetesacuteApril 2024 8:10amStrokeacuteApril 2024 8:10am Encounter for weight managementnoneactiveApril 2024 8:10am [facility] Work Phone: Evaluation note* Diagnosis DJD (degenerative joint disease), ankle and foot, left- Primary Bone spur of left foot Capsulitis of metatarsophalangeal (MTP) joint of left foot [facility] Diagnosis Capsulitis of metatarsophalangeal (MTP) joint of left foot- Primary Bone spur of left foot DJD (degenerative joint disease), ankle and foot, left documented in this encounter [facility] HealthcareEvaluation note* Diagnosis Onset Date Resolution Status Admit Date Primary osteoarthritis of right knee acuteAugust 2024 7:28am [facility] Work Phone: History and physical note Author [facility] January 04, 2023 2:58amNote Date/TimeAugust 2022 6:25[place] [address] Hospitalist H&P Signed Patient: Nancy Hooper MR#: [id number] : 1960 Acct:[id number] Age/Sex: 62 / F Adm Date: 3 Loc: Room: [address] [place] [address] Type: ADM INOo Attending Dr: Nabil Baker [...] care Discussed with:?the medical team, the patient [facility] Medical History Benign tumor removed [...] % (Auto) 15.0 % (.) 01/03/23 10:20 [place] % (Auto) 8.4 % (.) 01/03/23 10:20 Eos % (Auto) 0.7 % (.) 01/03/23 10:20 Baso % (Auto) 1.0 % (.) 01/03/23 10:20 Nucleat RBC Rel Count 0.1 /100 WBC (0-0.5) 01/03/23 10:20 Neut # (Auto) 6.2 x10E3/uL (1.8-7.7) 01/03/23 10:20 Lymph # (Auto) 1.2 x10E3/uL (1.00-4.8) 01/03/23 10:20 [place] # (Auto) 0.7 x10E3/uL (0.0-0.8) 01/03/23 10:20 [...] pH 6.5 (5.0-9.0) 01/03/23 15:03 Ur Specific [place] 1.024 (1.001-1.030) 01/03/23 15:03 Urine Protein Negative [...] signed by Nabil Baker MD> 01/04/23 0258 [facility] Work Phone: History general Narrative - Reported* Type Description Date Medical History HTN Medical HistorydiverticulitisMedical HistoryAnxietySurgical HistoryCollarbone tumor removedSurgical HistoryKnee surgery U4Yzsfbnfa HistoryBreast Reduction Hospitalization HistorySee AboveHospitalization HistoryPneumoniaHospitalization HistoryDiverticulitisHospitalization HistoryParalegic Migraines [facility] Other Hismcqi general Narrative - Reported* Type Description Date Medical History HTN Medical HistorydiverticulitisMedical HistoryAnxietyMedical HistoryGERDMedical HistoryKidney stonesMedical HistoryMigraine headacheMedical HistoryStroke 2009 Surgical HistoryCollarbone tumor removedSurgical HistoryKnee surgery B0Etlugkfz HistoryBreast ReductionHospitalization HistorySee AboveHospitalization History PneumoniaHospitalization HistoryDiverticulitisHospitalization HistoryParalegic Migraines [facility] Other Hishwii general Narrative - Reported* Type Description Date Medical History HTN Medical HistorydiverticulitisMedical HistoryAnxietyMedical HistoryGERDMedical HistoryKidney stonesMedical HistoryMigraine headacheMedical HistoryStroke 2009 Surgical HistoryCollarbone tumor removedSurgical HistoryKnee surgery I4Dxucwwsw HistoryBreast ReductionHospitalization HistorySee AboveHospitalization History PneumoniaHospitalization HistoryDiverticulitisHospitalization HistoryParalegic MigrainesHospitalization HistoryFR ER Chest pain12/2022 [facility] Other Hospital Discharge instructions No data available for this section [facility] General Surgery [place] [facility] Discharge instructions Additional Instructions DISCHARGE INSTRUCTIONS [...] NOT operate machinery such as power tools, WISETIVIs, Kreatech Diagnosticswers, Zero[employer] Technologying machines, etc. for 24 hours. - Avoid [...] NOT operate machinery such as power tools, IT MOVES ITn mowers, snow blowers, sewing machines, etc. for [...] -Follow up with PCP. - Office number [phone]. [facility] Work Phone: Progress note No data available for this section [facility] General Surgery [place] Reason for referral (narrative)* Consultation (Routine) - AuthorizedSpecialtyDiagnoses / ProceduresReferred By ContactReferred To ContactCardiology Diagnoses Precordial pain Essential hypertension, benign Procedures Follow Up In Cardiology Anneliese Hoyt MD [address] [place] [address] 2, [address] [address] Anneliese Hoyt MD [address] [place] [address] 2, [address] [place] [address] Referral IDStatusReasonStart DateExpiration DateVisits RequestedVisits [id number]/10/202311/ [facility] Work Phone: Reason for referral (narrative)No reason for referral information availableOhiohealth [facility] Work Phone: Reason for visit Narrative* Consultation (Routine) - ClosedSpecialtyDiagnoses / ProceduresReferred By ContactReferred To Contact Podiatry Diagnoses Pain in left foot Procedures FL OFFICE/OUTPATIENT NEW LOW MDM 30 MINUTES Rafael Salamanca MD [address] [place] [address] Phone: tel:[phone] fax: Joseph Montague DPM [address] [address] Phone: tel: fax: Referral IDStatusReasonStart DateExpiration DateVisits RequestedVisits [id number]/10/20259/ [facility] Healthcare Summary Purpose Family History No [...] for VisitChest pain Hypertension Chief Complaint WMN HEAD OF PHYSICS follow up Reason for Visit Arthritis GERD [...] section and content) DATE CREATED AUTHOR 10/23/2021 [employer] DATE CREATED AUTHOR AUTHOR'S ORGANIZ ATION 08/20/2022 [facility] DATE CREATED AUTHOR AUTHOR'S ORGANIZ ATION 01/07/2023 [facility] DATE CREATED AUTHOR AUTHOR'S ORGANIZ ATION 03/19/2023 [facility] DATE CREATED AUTHOR AUTHOR'S ORGANIZ ATION 03/24/2024 [facility] DATE CREATED AUTHOR AUTHOR'S ORGANIZ ATION 11/24/2024 [facility] DATE CREATED AUTHOR AUTHOR'S ORGANIZ ATION 12/05/2024 [facility] DATE CREATED AUTHOR AUTHOR'S ORGANIZ ATION 02/16/2025 [facility] REASON FOR VISIT (unrecogniz ed section and content) ReasonCommentsHospital Follow-upReasonCommentsAnnual ExamSpecialtyDiagnoses / ProceduresReferred By ContactReferred To ContactCardiology Diagnoses Precordial pain Essential hypertension, benign Procedures Follow Up In Cardiology Anneliese Hoyt MD [address] [place] [address] 2, [place] [address] Phone: tel: fax: Anneliese Hoyt MD [facility] 2, [facility] [address] [id number] Phone: tel: fax:[phone] Referral IDStatusReasonStart DateExpiration DateVisits RequestedVisits [id number]/10/202311/9/499541IabjwzHlrbbrjcGplatp-kbGP EDL Care Teams (unrecognized sec tion and [...] MemberRelationshipSpecialtyStart DateEnd Date Rafael Salamanca MD [address] [facility] [place] [address] PCP - General05/15/99 Team Status: Inactive Member [...] DateEnd Date Rafael Salamanca MD [address] [place] [address] PCP - [facility]05/15/99 Team Status: Inactive Member Role Status Dates [...] MemberRelationshipSpecialtyStart DateEnd Date Rafael Salamanca MD [address] [place] [address] [facility] - [facility]11/06/24Team MemberRelationshipSpecialtyStart DateEnd Date Rafael Salamanca MD [address] [place] [address] PCP - Generalmily Medicine11/06/24Team MemberRelationshipSpecialtyStart DateEnd Date Rafael Salamanca MD [address] [place] [address] [facility]11/06/24 Team Status: Inactive Member [...] February 10, 2025 End: February 10, 2025Jacqueline Maugans[place] , RPHAttending ProviderActiveStart: February 10, 2025 End: [...] BE BASED ON THE PRIMARY CLINICAL RECORDS. [employer] [facility]. provides no warranty or guarantee of the accuracy or completeness of information in this document.
--- OUTSIDE RECORDS SUMMARY | 2025-04-01 05:31 | XMS_ITS | Encounter Summary ---
Author Organization [facility] Address [address] [place] [address] Phone Care Team Providers Care Medical Receptionist Biller Name Role Phone Rafael Dumont MD Primary Care Provider [phone] Encounter Details DateTypeDepartmentCare Team (Latest Contact Info)Napimslajbu17/15/2025Scanned Document [facility] [address] [place] [id number] Scanning, Generic Provider Social History Tobacco UseTypesPacks/DayYears UsedDateSmoking Tobacco: NeverSmokeless Tobacco: NeverAlcohol UseStandard Drinks/WeekCommentsNever0 (1 standard drink = 0.6 oz pure alcohol)CommentsUnknownSex and Gender InformationValueDate Recorded Sex Assigned at BirthNot on fileLegal ZssGxufwq47/25/2022 9:36 AM ESTGender IdentityNot on fileSexual OrientationNot on filedocumented as of this encounter Functional Status * BPAnswerDate of DizvgffzeiSciyuu135/8203/31/2025 11:02 AM Eros Gilmore MA * PulseAnswerDate of UtjnktonekInewzq5606/17/2025 11:02 AM Eros Gilmore MA * QuestionAnswerDate of AssessmentAuthorDo you have any of the following new or worsening symptoms?None of these03/31/2025 8:47 AM Kyung Sevilla documented as of this encounter Plan of Treatment DateTypeDepartmentCare Team (Latest Contact Info)Iyatmhjmjyw84/24/2026 2:00 PM ESTOffice Visit [place] [address] [place] [address] Luan Garcia MD [address] [place] [address] documented as of this encounter Procedures Procedure NamePriorityDate/TimeAssociated DiagnosisCommentsELECTROCARDIOGRAM 12 LEAD03/29/2025 documented in this encounter Results * Electrocardiogram (03/29/2025) Narrative 03/29/2025 Ordered by an unspecified provider. Authorizing ProviderResult TypeResult StatusGeneric Provider ScanningECG ORDERABLESFinal Result documented in this encounter Visit Diagnoses Not on filedocumented in this encounter Care Teams Team MemberRelationshipSpecialtyStart DateEnd Date Rafael Dumont MD [address] [facility] [place] [address] PCP - General05/15/99documented as of this encounter
--- OUTSIDE RECORDS SUMMARY | 2025-04-01 05:31 | XMS_ITS | Clinical Summary ---
Author Organization [facility] Address [address] [place] [address] Phone Care Team Providers Care Waterproof Bag Cutting Machine Operator Name Role Phone Rafael Dumont MD Primary Care Provider [phone] Allergies Active AllergyReactionsCriticalityNoted DateCommentsCefuroxime AxetilRashLow 06/17/20082521GccngfsorpojUrswifz43/03/2009MorphineHives,Itching,YznxTvc6203/13/2023 OtherHives,Itching,Fever4101UmzrdbemyptRfihXyo59/03/2009TopiramateDiarrhea 03/14/2023 Medications MedicationSigDispense QuantityRefillsLast FilledStart DateEnd DateStatus hydroCHLOROthiazide (Microzide) 12.5 mg capsule Take 1 capsule (12.5 mg) by mouth once daily.Active ibuprofen 800 mg tablet Take 1 tablet (800 mg) by mouth every 8 hours if needed.09/12/2022ctive pantoprazole (ProtoNix) 40 mg EC tablet Take 1 tablet (40 mg) by mouth once daily.12/15/2022ctive furosemide (Lasix) 20 mg tablet Take 1 tablet (20 mg) by mouth once daily.Active potassium chloride CR 10 mEq ER tablet Take 1 tablet (10 mEq) by mouth once daily. Do not crush, chew, or split.Active metoprolol succinate XL (Toprol-XL) 25 mg 24 hr tablet Indications:Atrial flutter, unspecified type (Multi),Shortness of breath, Essential (primary) hypertensionTake 1 tablet (25 mg) by mouth once daily. Do not crush or chew. 90 tablet ctive apixaban (Eliquis) 5 mg tablet Indications:Atrial flutter, unspecified type (Multi)Take 1 tablet (5 mg) by mouth 2 times a day. 180 tablet ctive lisinopril 40 mg tablet Indications:Essential (primary) hypertensionTake 1 tablet (40 mg) by mouth once daily. 90 tablet ctive aspirin 81 mg EC tablet Take 1 tablet (81 mg) by mouth once daily.03/31/2025Discontinued(Discontinued by another clinician) carvedilol (Coreg) 12.5 mg tablet Take 1 tablet (12.5 mg) by mouth 2 times daily (morning and late afternoon). 03/31/2025Discontinued(Discontinued by another clinician) lisinopril 40 mg tablet Take 1 tablet (40 mg) by mouth once daily.03/31/2025Discontinued(Discontinued by another clinician) Ozempic 1 mg/dose (4 mg/3 mL) pen injector every 7 days.03/31/2025Discontinued(Discontinued by another clinician) apixaban (Eliquis) 5 mg tablet Take 1 tablet (5 mg) by mouth 2 times a day.03/31/2025Discontinued(Reorder) metoprolol succinate XL (Toprol-XL) 25 mg 24 hr tablet Take 1 tablet (25 mg) by mouth once daily. Do not crush or chew.03/31/2025 Discontinued(Reorder) Active Problems ProblemNoted DateDiagnosed DateParoxysmal atrial xoqjtgonqynv55/17/2025Shortness of epuzmz2003/31/2025Never smoked vktjdos0903/22/2024recordial pain03/24/2023MI 35.0-35.9,adult03/24/20238056Jpfgprullbixgd31/30/2023Essential (primary) borytenmcnmt51/30/2023 Resolved Problems ProblemNoted DateDiagnosed DateResolved DateEncounter to discuss test results Encounters DateTypeDepartmentCare OcjiZaznzuknztp91/17/2025 10:40 AM ESTOffice Visit [facility] [address] [address] Luan Garcia MD Atrial flutter, unspecified type (Multi) (Primary Dx); Shortness of breath; Precordial pain; Essential (primary) hypertension; Diverticulosis; BMI 35.0-35.9,adult; Never smoked tobacco Discharge Disposition: Home03/31/20255294Gjkbgk12/15/2025Scanned Document [facility] [address] [place] [address] Scanning, Generic Provider from Last 3 Months Immunizations ImmunizationAdministration DatesNext DueFlu vaccine (IIV4), preservative free *Check age/dose*02/27/2023,01/14/2020Influenza, seasonal, fuazgeukey02/30/2025 Novel aljsgamgb-Z5E3-69, preservative-free04/22/2009 Family History Medical HistoryRelationNameCommentsHeart attackBrother 1CancerFatherBobClotting disorderFatherBobThyroid diseaseMotherPatriciaRelationNameStatusCommentsBrother 1Brother 2BobFatherBobAliveMotherPatriciaAlive Social History Tobacco UseTypesPacks/DayYears UsedDateSmoking Tobacco: NeverSmokeless Tobacco: Never Tobacco Cessation:Counseling Given: Yes Alcohol UseStandard Drinks/WeekCommentsYes0 (1 standard drink = 0.6 oz pure alcohol)SocialCommentsUnknownSex and Gender InformationValueDate RecordedSex Assigned at BirthNot on fileLegal UaiLgqylv63/25/2022 9:36 AM EST Gender IdentityNot on fileSexual OrientationNot on file Last Filed Vital Signs Vital SignReadingTime TakenCommentsBlood Cjkseozq804/8203/31/2025 11:02 AM EST Tebxy414003/31/2025 11:02 AM ESTTemperature--Respiratory Olez9839 12:10 PM EDTOxygen Kfucnxreay77%03/14/2023 12:10 PM EDTInhaled Oxygen Concentration-- Essvnd438 kg (227 lb)03/31/2025 11:02 AM FBDRtnzki448.2 cm (5' 7 )03/31/2025 11:02 AM ESTBody Mass Index35.5503/31/2025 11:02 AM EST Plan of Treatment DateTypeDepartmentCare Team (Latest Contact Info)Ituhjvykfmq55/24/2026 2:00 PM ESTOffice Visit [facility] [address] [facility] [address] [place] [address] Luan Garcia MD [address] [facility] [address] [place] [address] Health MaintenanceDue DateLast DoneCommentsCT Ozymjrxvrsjy29/19/1963Colonoscopy 1962Colorectal Cancer Yjtbwkekd12/19/1963FIT-DNA (Cologuard)1962FIT 1962HIV Fkzllftwz84/19/1963Lipid Panel1962 7315Wdgrzzbfqojzy76/19/1963 Yearly Adult Bjvpfwme04/19/1963Diabetes Mtuyzyvty67/19/1981Hepatitis C Screening 1980Hepatitis A Vaccines (1 of 2 - Risk 2-dose series)1981Cervical Cancer Smcpalxut43/19/1984HPV/Blslou2406/02/1983Pap Smear1983DTaP/Tdap/Td Vaccines (1 - Tdap)1984MMR Vaccines (1 of 1 - Standard series)05/20/2009 Pneumococcal Vaccine (1 of 1 - PCV)2012RSV High Risk: (Elderly (60+) or Population) (1 - Risk 50-74 years 1-dose series)2012Zoster Vaccines (1 of 2)06/02/20128926Qmijmoxfp24/20/202207/, 12/01/2020, 11/19/2020 Hepatitis B Vaccines (1 of 3 - Risk 3-dose series)3COVID-19 Vaccine ( - 2024- season)5107/05/2020, 06/16/2020, 05/19/2020Influenza Vaccine Hscoikbbn59/30/2025, 02/10/2025, 02/26/2024, Additional history existsHIB VaccinesAged OutNo longer eligible based on patient's age to complete this topic HPV VaccinesAged OutNo longer eligible based on patient's age to complete this topicIPV VaccinesAged OutNo longer eligible based on patient's age to complete this topicMeningococcal VaccineAged OutNo longer eligible based on patient's age to complete this topicRotavirus VaccinesAged OutNo longer eligible based on patient's age to complete this topic Procedures Procedure NamePriorityDate/TimeAssociated DiagnosisCommentsECG 12-LEADRoutine 03/31/2025 10:40 AM EST Atrial flutter, unspecified type (Multi) ELECTROCARDIOGRAM 12 LEAD03/29/2025 from Last 3 Months Results * ECG 12 Lead (03/31/2025 10:40 AM EST)Specimen (Source)Anatomical Location / LateralityCollection Method / VolumeCollection TimeReceived Time Narrative [facility] - 03/31/2025 11:33 AM EST Normal sinus rhythm with mild sinus arrhythmia\ Authorizing ProviderResult TypeResult StatusMourhaf Veliai MDECG ORDERABLES Final ResultPerforming OrganizationAddressCity/State/ZIP CodePhone Number CPA * Electrocardiogram (03/29/2025) Narrative 03/29/2025 Ordered by an unspecified provider. Authorizing ProviderResult TypeResult StatusGeneric Provider ScanningECG ORDERABLESFinal Result from Last 3 Months Insurance Care Teams Team MemberRelationshipSpecialtyStart DateEnd Rafael Dumont MD [address] [place] [address] PCP - General05/15/99
--- OUTSIDE RECORDS SUMMARY | 2025-04-01 05:32 | XMS_ITS | Clinical Summary ---
Author Organization [facility] Address [address] [place] [address] Care Team Providers Care [place] Name Role Phone Rafael Dumont MD Primary Care Provider [phone] Allergies No known active allergies Medications MedicationSigDispense [...] InformationValueDate RecordedSex Assigned at BirthNot on fileLegal GgmFvwqpu26/15/2023 7:21 PM EDTGender Identity Not on fileSexual OrientationNot on file Last Filed Vital Signs Vital SignReadingTime TakenCommentsBlood Tkoycplo779/7402 12:00 PM EST Pulse--Temperature--Respiratory Fuxu003511/20/2024 4:21 PM EDTOxygen Saturation-- Inhaled Oxygen Concentration--Mfomun25.5 kg (215 lb)11/20/2024 4:21 PM EDTHeight 170.2 cm (5' 7 )11/20/2024 4:21 PM EDTBody Mass Index33.67011/20/2024 4:21 PM EDT Plan of Treatment Health MaintenanceDue DateLast DoneCommentsCT Cimzyfacrkwb40/19/1963Colonoscopy 1962Colorectal Cancer Rqlhucini11/19/1963FIT-DNA1962FIT1962 FOBT1962 5576Aeiftjxdcsolh89/19/1963Pap Smear1983Cervical Cancer Lfypnkhey38/19/1993HPV/Iojpwj0606/02/19925718Ptouxxwgw10/20/202207/, 11/19/2020 COVID-19 Vaccine ( season), 06/16/2020, 05/19/2020Influenza Vaccine (#1), 02/27/2023, 01/14/2020 Pneumococcal Vaccine: Pediatrics (0 to 5 Years) and At-Risk Patients (6 to 64 Years)Aged OutNo longer eligible based on patient's age to complete this topic Procedures Procedure NamePriorityDate/TimeAssociated DiagnosisCommentsBI MAMMOGRAM DIAGNOSTIC BVHTSSasonpb65/20/2021 from Last 3 Months or Most Recently [...] Danette Granger M.D.12/01/2020 7:55 AM Dictation Location: [facility] Transcribed By: ? PWS ?07/20/21 0755 Dictated By: ?Danette Granger MD ?12/01/20 0749 Signed By: <Electronically signed by MD Danette Granger in [place]> ? 12/01/20 0755 Narrative 12/01/2020 12:00 AM EDT PERFORMED AT [facility] LOCATION:[place] [address] ?[facility] [address] ?[address] ? [place] [address] ? Mammography Report ? Signed Patient: Rufus,Gurli A ?MR#: [id number] : 1960 ?Acct:[id number] Age/Sex: 60 / F ?ADM Date: 12/01/20 Loc: [place] ?Room: ?Type: REG CLI Attending Dr: Brannon Winter DO Ordering Provider: Brannon Winter DO Date of Service: 12/01/20 MM/MM special view RT w/CAD: [facility] Copies to: MD Brannon Zelaya,DO CLINICAL [...] Note CONVERSION, GENERIC - 11/18/2022 PERFORMED AT [facility] LOCATION:[address] [place] [address] Mammography Report Signed Patient: Nancy Hooper AMR#: [id number] : 1960Acct:[id number] Age/Sex: 60 / FADM Date: 12/01/20 Loc: [place] Room:Type: [facility] Attending Dr: Brannon Winter DO Ordering Provider: [...] Danette Granger M.D.12/01/2020 7:55 AM Dictation Location: [facility] Transcribed By: [facility] 12/01/20 0755 Dictated By: Danette Granger MD 12/01/20 0749 Signed By: <Electronically signed by MD Danette Granger in [place]> 12/01/20 0755 Authorizing ProviderResult TypeResult StatusWilliam Lluvia Winter DOIMG BI PROCEDURES Final Result from Last 3 Months or Most Recently Relevant to Health Maintenance Insurance Care Teams Team MemberRelationshipSpecialtyStart Date Rafael Dumont MD [address] [place] [address] PCP - GeneralFamily Medicine11/06/24
--- OUTSIDE RECORDS SUMMARY | 2025-04-01 05:33 | XMS_ITS | Clinical Summary ---
Author Organization [facility] Address [address] [place] [address] Care Team Providers Care Coverstitch Machine Operator Name Role Phone Rafael Dumont MD Primary Care Provider [phone] Active AllergyReactionsCriticalityNoted NscrZfwhodrxKbpwzsursxj90/03/2009 Cefuroxime Bkcxrn5706/17/20081011Ghqjmixqljgj30/03/1572Fqroemzkjoci63/03/2009 Social History Tobacco UseTypesPacks/DayYears UsedDateSmoking Tobacco: NeverAlcohol UseStandard Drinks/WeekCommentsNot Asked0 (1 standard drink = 0.6 oz pure alcohol) CommentsNoSex and Gender InformationValueDate RecordedSex Assigned at BirthNot on fileLegal SbhEmzmqt55/02/2012 8:18 AM ESTGender IdentityNot on fileSexual OrientationNot on file Last Filed Vital Signs Vital SignReadingTime TakenCommentsBlood Pressure--Pulse--Temperature-- Respiratory Rate--Oxygen Saturation--Inhaled Oxygen Concentration--Jefeih14.8 kg (220 lb)06/17/2008 2:47 PM FBJGyumjf171.7 cm (5' 8 )06/17/2008 2:47 PM ESTBody Mass Index33.45006/17/2008 2:47 PM EST Plan of Treatment Health MaintenanceDue DateLast DoneCommentsAnxiety Dysdsfjhw62/19/1981Depression Eqbauvcjn48/19/1981HIV Eivpofedg77/19/1981Hepatitis C Hcdeotexi19/19/1981 DTaP,Tdap,Td Vaccine (1 - Tdap)1981Cervical Cancer Tbjldwkmi58/19/1984 Mammogram Advsxcffx91/19/2003CT Edakiqfyvbis87/19/2008Cologuard (FIT-DNA) 06/02/20073679Hxbwnfltaqj62/19/2008Colorectal Cancer Lprwykepi69/19/2008Diabetes Wbfmjmjzd89/19/2008Fecal Occult Blood2007Lipid Svkylxyph95/19/2008 Tnoripmiskzqk59/19/2008Pneumococcal Vaccine: 50+ (1 of 1 - PCV)2012 Shingrix Vaccine (1 of 2)2012Covid-19 Vaccine (1 - 2024- season) 2025Influenza Vaccine (#1)2025RSV Vaccine (1 - 1-dose 75+ series) 2037 Insurance Care Teams Team MemberRelationshipSpecialtyStart DateEnd Rafael Dumont MD PCP - General06/12/08
--- OUTSIDE RECORDS SUMMARY | 2025-04-01 05:33 | XMS_ITS | Patient Health Record ---
Author Organization [facility] in [place] Address [address] [place] [address] Care Team Providers Care Rat Breeder Name Role Phone Les Dumont Primary Care Provider Allergies Allergen (clinical drug ingredient) Drug/Non Drug Allergy documented on EMR Reaction Allergy Type Onset Date Status sulfamethoxazole / trimethoprim Bactrim rash Drug Allergy ActiveCeftinhivesDrug AllergyActivetopiramateTopamaxMultiple Side EffectsDrug AllergyActiveVibramycinhivesDrug AllergyActiveFlu Virus VaccinehivesDrug Allergy ActiveerythromycinErythromycinhivesDrug AllergyActivemorphineMorphineswelling Drug AllergyActivePenicillinhivesDrug AllergyActive Results Component Value Reference Range Notes CBC AUTO DIFF Reviewed date:12/30/2024 01:06:53 PM Interpretation: Performing Lab: Notes/Report: [facility] , White Blood Count 19.1 4.0-11.0 10 3/uL Red Blood Count4.824.20-5.40 10 6/hHEfokavlqdj99.512.0-16.0 g/bLDqprkofkwb50.2 36.0-48.0 %Mean Corpuscular Phakel21.681.0-99.0 fLMean Corpuscular Hemoglobin 30.126.7-34.0 pgMean Corpuscular HGB Conc33.629.9-35.2 g/dLRed Cell Distribution Width13.011.0-15.0 %Platelet Joptd858371-622 10 3/uLMean Platelet Volume9.09.5- 13.5 fLPerforming Lab:see noteML - [facility] LBD-DIMER Reviewed date:12/30/2024 01:06:53 PM Interpretation: Performing Lab: Notes/Report: [facility] ,D Dimer0.85<=0.59 mg/L FEU RESULTS CALLED TO ARMIN SHAHID RN @BY Dana Henderson at 2148 Increases in D-Dimer concentration observed with thromboembolic events can be variable due to localization, size, and age of the thrombus. Therefore, a thromboembolic event cannot be diagnosed with certainty on the basis of the reference range. D-Dimers may also be elevated for a variety of disorders including advanced age, , coronary disease, cancer, liver disease, infection, inflammation, hematoma, DIC, trauma, post-surgery, diabetes, thrombolytic or anticoagulant therapy, stress, and generalized hospitalization. Performing Lab:see note - [facility] LBLACTATE or LACTIC ACID Reviewed date:12/30/2024 01:06:53 PM Interpretation: Performing Lab: Notes/Report: [facility] ,Lactate/Lactic Acid1.30.4-2.0 mmol/LPerforming Lab:see note - [facility] LBPROF 14(COMP METB) Reviewed date:12/30/2024 01:06:53 PM Interpretation: Performing Lab: Notes/Report: [facility] ,Rnpfne016081-918 mmol/LPotassium3.53.5-5.1 mmol/KPhyrcijq68176-468 mmol/LCarbon Argdjmu59.721.0-32.0 mmol/LAnion Gap8.2Qwjpgoe80583-552 mg/dLBlood Urea Nitrogen 26.07.0-18.0 mg/dLCreatinine0.790.55-1.02 mg/dLEstimated GFR ( Moon>60 >=60 mL/min/1.73m 2Estimated GFR (Non- Shantelle>60>=60 mL/min/1.73m 2BUN Creatinine Ratio32.8Ghiztkp3.38.5-10.1 mg/dLBilirubin Total0.30.2-1.0 mg/dL Aspartate Amino Dwrfplvwyhf929-06 U/LAlanine Vabpcpaupqhmefuh9548-94 U/LAlkaline Lxdbfwkfuhd6348-986 U/LTotal Protein7.76.4-8.2 g/dLAlbumin Level3.53.4-5.0 g/dL Globulin4.2Albumin Globulin Ratio0.8Performing Lab:see noteML - [facility] LBUA RANDOM W or MICROSCOPIC Reviewed date:12/30/2024 01:06:53 PM Interpretation: Performing Lab: Notes/Report: [facility] ,Color UrineLT. YELLOWYELLOWClarity UrineCLEARCLEARSpecific [place] Urine1.025 1.005-1.025pH Urine5.55.0-9.0Protein UrineNEGATIVENEG/TRACE mg/dLGlucose Urine UANEGATIVENEGATIVE mg/dLBilirubin UrineNEGATIVENEGATIVEKetones UrineNEGATIVE NEGATIVE mg/dLBlood UrineSMALLNEGATIVENitrite UrineNEGATIVENEGATIVEUrobilinogen Urine0.20.2-1.0 EU/dLLeukocyte Esterase UrineNEGATIVENEGATIVEWBC Urine0-2NONE SEEN #/HPFRBC Urine0-20-2 #/HPFBacteria UrineNONE SEENNONE SEEN #/HPFMucus Urine NONE SEENNONE SEENSquamous Epithelial Cell UrineRARENONE/RARE #/LPFCrystals Seen?SeenNone Seen #/HPFAmorphous Sediment UrineRARECast Seen?NONE SEENNONE SEEN #/LPFUrine Culture IndicatedNOPerforming Lab:see noteML - [facility] LBManual Differential Reviewed date:12/30/2024 01:06:53 PM Interpretation: Performing Lab: Notes/Report: [facility] ,Segmented Neutrophils % Erghsh29.043.0-75.0Lymphocytes Percent Manual9.020.5- 60.0 %Monocytes Percent Manual4.01.7-12.0 %Eosinophils Percent Manual0.00.9-7.0 %Basophils Percent Manual1.00.2-2.0 %Atypical Lymphocytes % Xdlfuq78.0 Promyelocytes % Manual1.0Segmented Neut Absolute Rkljkf74.751.4-6.5 10 3/uL Lymphocytes Absolute Manual1.711.20-3.80 10 3/uLMonocytes Absolute Manual0.76 0.30-0.80 10 3/uLEosinophils Absolute Manual0.000.00-0.70 10 3/uLBasophils Abs Manual0.190.00-0.10 10 3/uLAtypical Lymphocytes Abs Man2.67Promyelocytes Absolute Manual0.19Performing Lab:see noteML - [facility] LBTroponin I High Sensitivity Reviewed date:12/30/2024 01:06:53 PM Interpretation: Performing Lab: Notes/Report: [facility] ,Troponin I High Sensitivity4.84.0-51.3 pg/mL CUT-OFF POINTS HAVE BEEN ESTABLISHED BASED ON THE FOURTH UNIVERSAL DEFINITION OF MYOCARDIAL INFARCTION. THE UPPER REFERENCE LIMIT (URL) OF TROPONIN, DEFINED THE 99TH PERCENTILE OF cTnI DISTRIBUTION IN A REFERENCE POPULATION, HAS BEEN CONFIRMED THE DECISION THRESHOLD FOR HI DIAGNOSIS. 99TH PERCENTILE = 51.4 PG/ML NOTE: HIGH-SENSITIVITY TROPONIN ASSAY IS NOT INTENDED TO BE USED IN ISOLATION BUT SHOULD BE INTERPRETED IN CONJUNCTION WITH OTHER DIAGNOSTIC AND CLINICAL INFORMATION. Performing Lab:see noteML - [facility] LBECG 12 lead Reviewed date:12/30/2024 07:12:00 PM Interpretation: Performing Lab: Notes/Report: Source Facility: [place] [address] Electrocardiograph Report Signed Patient: NANCY NORRIS MR#: [id number] : 1960 Acct:[id number] Age/Sex: 64 / F ADM Date: 12/29/24 Loc: MS 203-[address]: Magdaleno Ross M.D. Ordering Physician: Louann Amor Date of Service: 12/29/24 Procedure(s): ECG 12 lead Accession Number(s): [id number] cc: [facility] Test Date: 2024-12-29 Pat Name: NANCY NORRIS Department: Room: - Gender: Female [employer]: : 1960 Requested By: 0939 Order Number: [id number] Gaston MD: BRANT PATEL M.D. Measurements Intervals [place] Rate: 80 P: 33 KS: 160 QRS: 51 QRSD: 84 T: 46 QT: 364 QTc: 401 Interpretive Statements 1100 Sinus rhythm 79404 Cannot rule out inferior myocardial infarction with posterior extension, age undetermined 9150 abnormal ECG Compared to ECG 01/18/2024 21:18:55 No significant changes Electronically Signed On 12-30-2024 17:46:47 EDT by BRANT PATEL M.D. Dictated By: BRANT PATEL Signed By: 12/30/241746 DD/ 03 TD/TT: Director Of Math:CBC AUTO DIFF Reviewed date:12/30/2024 01:06:53 PM Interpretation: Performing Lab: Notes/Report: [facility] ,White Blood Count16.54.0-11.0 10 3/uLRed Blood Count4.184.20-5.40 10 6/uL Mnfcroiaui47.612.0-16.0 g/rSVfttdulxkz09.136.0-48.0 %Mean Corpuscular Ewlxft36.1 81.0-99.0 fLMean Corpuscular Nfbvoudsrt92.126.7-34.0 pgMean Corpuscular HGB Conc 33.129.9-35.2 g/dLRed Cell Distribution Width13.211.0-15.0 %Platelet Qyeoh793 150-450 10 3/uLMean Platelet Volume9.19.5-13.5 fLNeutrophils Percent Auto73.2 43.0-75.0 %Lymphocytes Percent Auto16.520.5-60.0 %Monocytes Percent Auto8.71.7- 12.0 %Eosinophils Percent Auto0.40.9-7.0 %Basophils Percent Auto0.20.2-2.0 % Immature Granulocytes Pct Auto1.00.0-0.5 %Neutrophils Absolute Auto12.11.4-6.5 10 3/uLLymphocytes Absolute Auto2.71.2-3.8 10 3/uLMonocytes Absolute Auto1.40.3- 0.8 10 3/uLEosinophils Absolute Auto0.10.0-0.7 10 3/uLBasophils Absolute Auto0.0 0.0-0.1 10 3/uLImmature Granulocytes Abs Auto0.160.00-0.03 10 3/uLPerforming Lab:see noteML - [facility] LBMAGNESIUM Reviewed date:12/30/2024 01:06:53 PM Interpretation: Performing Lab: Notes/Report: [facility] ,Magnesium1.81.8-2.4 mg/dLPerforming Lab:see noteML - [facility] LB PROF 14(COMP METB) Reviewed date:12/30/2024 01:06:53 PM Interpretation: Performing Lab: Notes/Report: [facility] ,Irvnxt797544-681 mmol/LPotassium3.93.5-5.1 mmol/TCispciiw29121-118 mmol/LCarbon Egngjti52.921.0-32.0 mmol/LAnion Gap8.1Khjsqlv42428-469 mg/dLBlood Urea Nitrogen 25.07.0-18.0 mg/dLCreatinine0.540.55-1.02 mg/dLEstimated GFR ( Moon>60 >=60 mL/min/1.73m 2Estimated GFR (Non- Shantelle>60>=60 mL/min/1.73m 2BUN Creatinine Ratio46.4Ljvimyd2.18.5-10.1 mg/dLBilirubin Total0.70.2-1.0 mg/dL Aspartate Amino Rtqvnxprvie187-62 U/LAlanine Epotpmpfnymmllla7170-05 U/LAlkaline Pcodloxiqca8092-680 U/LTotal Protein6.16.4-8.2 g/dLAlbumin Level2.73.4-5.0 g/dL Globulin3.4Albumin Globulin Ratio0.8Performing Lab:see noteML - [facility] LBCBC AUTO DIFF Reviewed date:03/30/2025 12:02:02 PM Interpretation: Performing Lab: Notes/Report: [facility] ,White Blood Count10.14.0-11.0 10 3/uLRed Blood Count5.114.20-5.40 10 6/uL Geflxlbrxh58.512.0-16.0 g/uHXeduqgzmun21.836.0-48.0 %Mean Corpuscular Vykped48.6 81.0-99.0 fLMean Corpuscular Ysvzwrlyoy57.326.7-34.0 pgMean Corpuscular HGB Conc 33.829.9-35.2 g/dLRed Cell Distribution Width12.811.0-15.0 %Platelet Yybmb962 150-450 10 3/uLMean Platelet Volume9.19.5-13.5 fLNeutrophils Percent Auto55.6 43.0-75.0 %Lymphocytes Percent Auto33.620.5-60.0 %Monocytes Percent Auto8.41.7- 12.0 %Eosinophils Percent Auto1.20.9-7.0 %Basophils Percent Auto0.90.2-2.0 % Immature Granulocytes Pct Auto0.30.0-0.5 %Neutrophils Absolute Auto5.61.4-6.5 10 3/uLLymphocytes Absolute Auto3.41.2-3.8 10 3/uLMonocytes Absolute Auto0.90.3-0.8 10 3/uLEosinophils Absolute Auto0.10.0-0.7 10 3/uLBasophils Absolute Auto0.10.0- 0.1 10 3/uLImmature Granulocytes Abs Auto0.030.00-0.03 10 3/uLPerforming Lab:see noteML - [facility] LBMAGNESIUM Reviewed date:03/30/2025 12:02:02 PM Interpretation: Performing Lab: Notes/Report: [facility] ,Magnesium2.01.8-2.4 mg/dLPerforming Lab:see note - [facility] PROF CHEM 8 (BAS METB) Reviewed date:03/30/2025 12:02:02 PM Interpretation: Performing Lab: Notes/Report: [facility] ,Jahdmo553524-352 mmol/LPotassium3.63.5-5.1 mmol/RRgkqcaac57027-056 mmol/LCarbon Dipufgg62.921.0-32.0 mmol/LAnion Gap14.5Sklthkt51557-058 mg/dLBlood Urea Nzcofzpw02.07.0-18.0 mg/dLCreatinine0.920.55-1.02 mg/dLEstimated GFR ( Moon>60>=60 mL/min/1.73m 2Estimated GFR (Non- Shantelle>60>=60 mL/min/1.73m 2BUN Creatinine Ratio32.7Zvasina7.48.5-10.1 mg/dLPerforming Lab:see noteML - [facility] LBTroponin I High Sensitivity Reviewed date:03/30/2025 12:02:02 PM Interpretation: Performing Lab: Notes/Report: [facility] ,Troponin I High Dhyasyqytqc38.64.0-51.3 pg/mL RESULTS CALLED TO TUSHAR Meyer RN @BY LÓPEZ WilksT at 2347 CUT-OFF POINTS HAVE BEEN ESTABLISHED BASED ON THE FOURTH UNIVERSAL DEFINITION OF MYOCARDIAL INFARCTION. THE UPPER REFERENCE LIMIT (URL) OF TROPONIN, DEFINED THE 99TH PERCENTILE OF cTnI DISTRIBUTION IN A REFERENCE POPULATION, HAS BEEN CONFIRMED THE DECISION THRESHOLD FOR HI DIAGNOSIS. 99TH PERCENTILE = 51.4 PG/ML NOTE: HIGH-SENSITIVITY TROPONIN ASSAY IS NOT INTENDED TO BE USED IN ISOLATION BUT SHOULD BE INTERPRETED IN CONJUNCTION WITH OTHER DIAGNOSTIC AND CLINICAL INFORMATION. Performing Lab:see note - [facility] LBECG 12 lead Reviewed date:03/30/2025 12:02:02 PM Interpretation: Performing Lab: Notes/Report: Source Facility: [place] [address] Electrocardiograph Report Signed Patient: NANCY NORRIS MR#: [id number] : 1960 Acct:[id number] Age/Sex: 64 / F ADM Date: 03/29/25 Loc: MS 223-[address]: Magdaleno Ross M.D. Ordering Physician: Jean-Pierre Edward M.D. Date of Service: 03/29/25 Procedure(s): ECG 12 lead Accession Number(s): [id number] cc: [facility] Test Date: 2025-03-29 Pat Name: NANCY NORRIS Department: Room: - Gender: Female [employer]: : 1960 Requested By: 1030 Order Number: [id number] Gaston MD: BRANT PATEL M.D. Measurements Intervals [place] Rate: 154 P: -03091 KS: QRS: 70 QRSD: 118 T: -9 QT: 368 QTc: 455 Interpretive Statements ATRIAL FLUTTER WITH 2:1 AV BLOCK 2450 Right bundle branch block 78214 Twave abnormality, possible anterolateral ischemia or digitalis effect 37538 Twave abnormality, possible inferior ischemia or digitalis effect 8102 Low QRS voltage in chest leads 9150 abnormal ECG Compared to ECG 12/29/2024 21:04:40 Atrial flutter has replaced sinus rhythm Right bundle-branch block now present Possible ischemia now present Low QRS voltage now present Electronically Signed On 03-30-2025 6:45:34 EST by BRANT PATEL M.D. Dictated By: BRANT PATEL Signed By: 03/30/25 0645 DD/ 2300 TD/TT: Director Of Math:CBC AUTO DIFF Reviewed date:03/30/2025 12:02:02 PM Interpretation: Performing Lab: Notes/Report: [facility] ,White Blood Count10.04.0-11.0 10 3/uLRed Blood Count4.564.20-5.40 10 6/uL Nfrbkbburx84.712.0-16.0 g/nXOxjhkbddfh18.236.0-48.0 %Mean Corpuscular Ydahck41.4 81.0-99.0 fLMean Corpuscular Ndxcvdigzb87.026.7-34.0 pgMean Corpuscular HGB Conc 33.329.9-35.2 g/dLRed Cell Distribution Width13.011.0-15.0 %Platelet Zgocy329 150-450 10 3/uLMean Platelet Volume9.29.5-13.5 fLNeutrophils Percent Auto59.9 43.0-75.0 %Lymphocytes Percent Auto30.320.5-60.0 %Monocytes Percent Auto7.91.7- 12.0 %Eosinophils Percent Auto0.90.9-7.0 %Basophils Percent Auto0.70.2-2.0 % Immature Granulocytes Pct Auto0.30.0-0.5 %Neutrophils Absolute Auto6.01.4-6.5 10 3/uLLymphocytes Absolute Auto3.01.2-3.8 10 3/uLMonocytes Absolute Auto0.80.3-0.8 10 3/uLEosinophils Absolute Auto0.10.0-0.7 10 3/uLBasophils Absolute Auto0.10.0- 0.1 10 3/uLImmature Granulocytes Abs Auto0.030.00-0.03 10 3/uLPerforming Lab:see noteML - [facility] LBLIPID PROFILE Reviewed date:03/30/2025 12:02:02 PM Interpretation: Performing Lab: Notes/Report: [facility] ,Cjchdirikgfxp03<=150 mg/aUVecskpthpqd000<=200 mg/dLHDL Xguwlylnqvm1452-70 mg/dL > or =60 mg/dl - LOW CARDIOVASCULAR RISK <40 mg/dl - HIGH CARDIOVASCULAR RISK LDL Cholesterol Ebidkrdpty66.4 <100 mg/dl OPTIMAL 100-129 mg/dl NEAR OR ABOVE OPTIMAL 130-159 mg/dl BORDERLINE HIGH 160-189 mg/dl HIGH >190 mg/dl VERY HIGH VLDL FLYSIPPJOYE11.6Chol HDL Ratio3.3 3.3 - 4.4 LOW RISK 4.4 - 7.1 AVERAGE RISK 7.1 - 11.0 MODERATE RISK >11.0 HIGH RISK Performing Lab:see noteML - [facility] LBMAGNESIUM Reviewed date:03/30/2025 12:02:02 PM Interpretation: Performing Lab: Notes/Report: [facility] ,Magnesium1.91.8-2.4 mg/dLPerforming Lab:see note - [facility] LB PROF 14(COMP METB) Reviewed date:03/30/2025 12:02:02 PM Interpretation: Performing Lab: Notes/Report: [facility] ,Akeocl576255-108 mmol/LPotassium4.23.5-5.1 mmol/ZJeulmcgt47552-943 mmol/LCarbon Szpkhln57.321.0-32.0 mmol/LAnion Gap13.0Sjlhqhm63244-346 mg/dLBlood Urea Ujvlasoo45.07.0-18.0 mg/dLCreatinine0.620.55-1.02 mg/dLEstimated GFR ( Moon>60>=60 mL/min/1.73m 2Estimated GFR (Non- Shantelle>60>=60 mL/min/1.73m 2BUN Creatinine Ratio45.6Itkujyw9.78.5-10.1 mg/dLBilirubin Total0.30.2-1.0 mg/dL Aspartate Amino Strgjsxkzxz9772-90 U/LAlanine Huzugilwnviwspdn9943-15 U/L Alkaline Tfzspqogemp0522-854 U/LTotal Protein6.76.4-8.2 g/dLAlbumin Level3.23.4- 5.0 g/dLGlobulin3.5Albumin Globulin Ratio0.9Performing Lab:see noteML - [facility] LBTroponin I High Sensitivity Reviewed date:03/30/2025 12:02:02 PM Interpretation: Performing Lab: Notes/Report: [facility] ,Troponin I High Msovgewzemk09.34.0-51.3 pg/mL RESULTS CALLED TO TUSHAR Monroe RN @BY LÓPEZ WilksT at 0037 CUT-OFF POINTS HAVE BEEN ESTABLISHED BASED ON THE FOURTH UNIVERSAL DEFINITION OF MYOCARDIAL INFARCTION. THE UPPER REFERENCE LIMIT (URL) OF TROPONIN, DEFINED THE 99TH PERCENTILE OF cTnI DISTRIBUTION IN A REFERENCE POPULATION, HAS BEEN CONFIRMED THE DECISION THRESHOLD FOR HI DIAGNOSIS. 99TH PERCENTILE = 51.4 PG/ML NOTE: HIGH-SENSITIVITY TROPONIN ASSAY IS NOT INTENDED TO BE USED IN ISOLATION BUT SHOULD BE INTERPRETED IN CONJUNCTION WITH OTHER DIAGNOSTIC AND CLINICAL INFORMATION. Performing Lab:see noteML - [facility] LBTroponin I High Sensitivity Reviewed date:03/30/2025 12:02:02 PM Interpretation: Performing Lab: Notes/Report: [facility] ,Troponin I High Dihmeqpfoew55.54.0-51.3 pg/mL CUT-OFF POINTS HAVE BEEN ESTABLISHED BASED ON THE FOURTH UNIVERSAL DEFINITION OF MYOCARDIAL INFARCTION. THE UPPER REFERENCE LIMIT (URL) OF TROPONIN, DEFINED THE 99TH PERCENTILE OF cTnI DISTRIBUTION IN A REFERENCE POPULATION, HAS BEEN CONFIRMED THE DECISION THRESHOLD FOR HI DIAGNOSIS. 99TH PERCENTILE = 51.4 PG/ML NOTE: HIGH-SENSITIVITY TROPONIN ASSAY IS NOT INTENDED TO BE USED IN ISOLATION BUT SHOULD BE INTERPRETED IN CONJUNCTION WITH OTHER DIAGNOSTIC AND CLINICAL INFORMATION. Performing Lab:see noteML - [facility] LBCBC no Diff (Hemogram) Reviewed date:01/01/2025 12:54:26 PM Interpretation: Performing Lab: Notes/Report: [facility] ,White Blood Count13.64.0-11.0 10 3/uLRed Blood Count4.244.20-5.40 10 6/uL Zuxptteouq92.812.0-16.0 g/wDZcubwcluha59.136.0-48.0 %Mean Corpuscular Dczgim42.9 81.0-99.0 fLMean Corpuscular Pqgrzhkqgu60.226.7-34.0 pgMean Corpuscular HGB Conc 33.629.9-35.2 g/dLRed Cell Distribution Width12.811.0-15.0 %Platelet Phabh839 150-450 10 3/uLMean Platelet Volume8.99.5-13.5 fLPerforming Lab:see noteML - [facility] LBPROF 14(COMP METB) Reviewed date:01/01/2025 12:54:26 PM Interpretation: Performing Lab: Notes/Report: [facility] ,Baxsvy218344-043 mmol/LPotassium3.83.5-5.1 mmol/CCctwbvsi03443-812 mmol/LCarbon Azoncgi46.721.0-32.0 mmol/LAnion Gap11.1Badjywe27396-332 mg/dLBlood Urea Ikmosbvx81.07.0-18.0 mg/dLCreatinine0.600.55-1.02 mg/dLEstimated GFR ( Moon>60>=60 mL/min/1.73m 2Estimated GFR (Non- Shantelle>60>=60 mL/min/1.73m 2BUN Creatinine Ratio28.5Hlhirak9.78.5-10.1 mg/dLBilirubin Total0.80.2-1.0 mg/dL Aspartate Amino Gserovwfeol751-90 U/LAlanine Uqooaxphtzmcybve9544-20 U/LAlkaline Bgkultwvnpp8116-275 U/LTotal Protein6.86.4-8.2 g/dLAlbumin Level2.63.4-5.0 g/dL Globulin4.2Albumin Globulin Ratio0.6Performing Lab:see noteML - [facility] LBBlood Culture 2 Reviewed date:01/05/2025 10:58:30 AM Interpretation: Performing Lab: Notes/Report: [facility] ,Blood Culture 2See Below For Report Blood Culture 2 NG5D NO GROWTH AT 5 DAYS.^NO GROWTH AT 5 DAYS. Performing Lab:see noteML - [facility] LBBlood Culture 1 Reviewed date:01/05/2025 10:58:30 AM Interpretation: Performing Lab: Notes/Report: [facility] ,Blood Culture 1See Below For Report Blood Culture 1 NG5D NO GROWTH AT 5 DAYS.^NO GROWTH AT 5 DAYS. Performing Lab:see noteML - [facility] LBECG 12 lead Reviewed date:03/30/2025 12:02:02 PM Interpretation: Performing Lab: Notes/Report: Source Facility: [place] [address] [place] [address] Electrocardiograph Report Signed Patient: NANCY NORRIS MR#: [id number] : 1960 Acct:[id number] Age/Sex: 64 / F ADM Date: 03/29/25 Loc: MS 223- Attending Dr: Magdaleno Ross M.D. Ordering Physician: Magdaleno Ross M.D. Date of Service: 03/30/25 Procedure(s): ECG 12 lead Accession Number(s): [id number] cc: [facility] Test Date: 2025-03-30 Pat Name: NANCY NORRIS Department: Room: [facility] Gender: Female [employer]: : 1960 Requested By: 2802 Order Number: [id number] Reading MD: BRANT PATEL M.D. Measurements Intervals [place] Rate: 70 P: 37 KS: 182 QRS: 70 QRSD: 78 T: 73 QT: 408 QTc: 429 Interpretive Statements 1100 Sinus rhythm 8102 Low QRS voltage in chest leads 9120 atypical ECG Compared to ECG 03/29/2025 23:00:44 Atrial flutter no longer present 2:1 AV block no longer present Right bundle-branch block no longer present Possible ischemia no longer present Electronically Signed On 03-30-2025 6:54:55 EST by BRANT PATEL M.D. Dictated By: BRANT PATEL Signed By: 03/30/25654 DD/ 1 TD/TT: Director Of Math:CT abdomen pelvis w con Reviewed date:12/25/2024 12:49:47 PM Interpretation: Performing Lab: Notes/Report: Source Facility: [place] [address] CT Scan Report Signed Patient: NANCY NORRIS MR#: [id number] : 1960 Acct:[id number] Age/Sex: 64 / F ADM Date: 12/25/24 Loc: CT Attending Dr: Anna Breaux M.D. Ordering Physician: Anna Breaux M.D. Date of Service: 12/25/24 Procedure(s): CT abdomen pelvis w con Accession Number(s): [id number] cc: Rafael Dumont M.D. [place] [address] Patient Name: NANCY NORRIS MRN: [id number] date: 1960 Sex: F Assigned Patient Location: CT Current Patient Location: CT Accession/Order Number: [id number] Exam Date: 12/25/2024 12:39 Report Date: 12/25/2024 [...] diverticulosis. Impression dictated by: Will Voss Jr., D.O. 12/25/2024 12:42 PM Dictation Location: [place] [address] Electronically authenticated by: [id number] Y Date: 12/25/2024 12:42 Dictated By: Will Voss M.D. Signed By: 12/25/24 1244 DD/ 1242 TD/TT: Director Of Math: Reason For Referral Diagnosis 1 Left foot pain (M79. 672) Referral Organization [facility] Referring Provider First Name Les Referring Provider Last Name angelito Referring Provider [facility] Referred Provider Aman Cobian Referred Provider Specialty Orthopedic S urgery Referral Priority Routine Diagnosis 1 Left foot pain (M79. 672) Referral Organization [facility] Referring Provider First Name Les Referring Provider Last Name Julia Referring Provider [facility] Referred Provider Joseph Cobian Referred Provider Specialty Podiatry Referral Priority Routine Diagnosis 1 Gallstones (K80.20) Referral Organization [facility] Referring Provider First Name Les Referring Provider Last Name angelito Referring Provider [facility] Referred Provider Anna Breaux Referred Provider Specialty General Surg [place] Referral Priority Routine Medications Medication SIG (Take, Route, Frequency, Duration) Notes Start Date End Date Status Pantoprazole Sodium 40 MG 1 tablet Orally Once a day; Duration: 30 days ActivehydroCHLOROthiazide 12.5 MG1 tablet in the morning Orally Once a day; Duration: 90 daysActiveCoreg 12.5 MG1 tablet with food Orally Twice a day; Duration: 30 daysActiveIbuprofen 800 MG1 tablet with food or milk as needed Orally every 8 hrs; Duration: 30 daysPRNActivetraMADol HCl 100 MGTAKE 1 TABLET BY MOUTH EVERY 8 HOURS Oral; Duration: 10 DaysActiveCiprofloxacin HCl 500 MGTAKE 1 TABLET BY MOUTH TWICE A DAY Oral; Duration: 10 DaysActiveAspirin 81 81 MG1 tablet Orally Once a dayActiveLisinopril 40 MG1 tablet Orally Once a day; Duration: 90 daysActiveLevsin/SL 0.125 MG1 tablet under the tongue and allow to dissolve as needed Sublingual every 6 hrs3ActiveOndansetron 4 MG1 tablet on the tongue and allow to dissolve Orally qid5ActiveNurtec 75 MG1 tablet on the tongue and allow to dissolve OrallyPRNActive Social History Tobacco Use: Social History Observation Description Date Details (start date - stop date) Never Smoker NA - NA Tobacco Use/Smoking Question Answer Notes Patient is a nonsmoker Alcohol Screen (Audit-C) Question Answer Notes Did you have a drink containing alcohol in the p ast year? Yes How often did you have 6 or more drinks on one occasion in the past year?Never (0 point)How often did you have a drink containing alcohol in the past year?Less than monthly (1 point)[id number]-Q (Standard) Question Answer Notes Did you have a drink containing alcohol in the p ast year? No [id number] Problems Problem Type SNOMED Code ICD Code Onset Dates Problem Status W/U Status Risk Notes Problem Cerebrovascular disease (5906935 0) Other cerebrovascular disease (I67.89) ActiveconfirmedProblemCyst of pancreas (23337955)Cyst of pancreas (K86.2)Active confirmedProblemPilar cyst (852273035)Pilar cyst (L72.11)ActiveconfirmedProblem Sebaceous cyst (074183018)Sebaceous cyst (L72.3)ActiveconfirmedProblemMorbid obesity (724992329)Morbid obesity (E66.01)ActiveconfirmedProblemHypertension (86889258)Hypertension (I10)ActiveconfirmedProblemOsteoarthritis (575733294) Osteoarthritis (M19.90)ActiveconfirmedProblemGastroesophageal reflux disease (208477294)GERD (gastroesophageal reflux disease) (K21.9)ActiveconfirmedProblem Arthritis (1382126)Arthritis (M19.90)ActiveconfirmedProblemPrediabetes (111924537)Prediabetes (R73.09)ActiveconfirmedProblemMigraine (62270685)Migraine (G43.909)ActiveconfirmedProblemWell adult (163255696)Well adult (Z00.00)Active confirmedProblemLeg pain (13081758)Leg pain (M79.606)ActiveconfirmedProblem Tricuspid valve disorder (07734209)Moderate tricuspid regurgitation (I07.1) ActiveconfirmedProblemDiverticulitis (09765332)Diverticulitis (K57.92)Active confirmedProblemGallstones (536236154)Gallstones (K80.20)ActiveconfirmedProblem Degeneration of cervical intervertebral disc (63553068)Degenerative cervical disc (M50.30)ActiveconfirmedProblemSeasonal allergic rhinitis (985256547) Allergic rhinitis, seasonal (J30.2)ActiveconfirmedProblemHemiplegic migraine (25377170)Hemiplegic migraine (G43.409)ActiveconfirmedProblemCalcaneal spur (24399626)Heel spur, unspecified laterality (M77.30)ActiveconfirmedProblem Leukocytosis (326842315)Elevated WBCs (D72.829)ActiveconfirmedProblemEssential hypertension (44182144)BP (high blood pressure) (I10)ActiveconfirmedProblem Disease caused by Severe acute respiratory syndrome coronavirus 2 (disorder) (567378976)COVID-19 virus infection (U07.1)Activeconfirmed Vital Signs Temperature 99.7 degrees Fahrenheit 09/13/2024 Blood pressure rhobmyeft43 mm Hg01/07/20259338Hkmrok43 in01/07/2025lood pressure mm Hg01/07/20257982Zndjte781.2 lbs01/07/2025BMI33.63 kg/m201/07/2025 Encounters Encounter Location Date Provider Diagnosis [address] [place] [address] 09/13/2024 Les Hoy Diverticulitis K57.[address] [address] 11/20/2024 Les Hoy Epigastric abdominal pain R10.13 and Left upper quadrant abdominal pain R10.[address] [address] 01/07/2025 Les Hoy Diverticulitis K57.9 2 ; Hypertension I10 and GERD (gastroesophageal reflux disease) K21.9 [facility] [address] [place] [address] 09/27/2024 Les Hoy Left foot pain M79.6 72 [facility] [address] [place] [facility] [place] [address] 10/02/2024 Les Hoy Left foot pain M79.6 72 [facility] [address] [place] [address] 10/19/2024 Les Hoy Left foot pain M79.6 72 [facility] [address] [place] [place] [address] 10/21/2024 Les Hoy Left foot pain M79.6 72 [facility] [address] [place] [address] 11/21/2024 Les Hoy [facility] [place] [address] 11/25/2024Doug HoyGallstones K80.20[facility] [place] [address]/[facility] [address] [place] [address]/Doug HoyUTI (urinary tract infection) N39.0[facility] [place] [address]/Doug HoyUTI (urinary tract infection) N39.0[facility] [place] [address]/03/2025 Les HoyUTI (urinary tract infection) N39.0[facility] [place] [address]/Doug HoyHypertension I10 and Dysuria R30.0[facility] [place] [address]/[facility] [place] [address]/Doug Hoy Assessments Encounter Date Diagnosis (ICD Code) Assessment Notes Treatment Notes Treatment Clinical Notes Section Notes 09/13/2024 Diverticulitis (ICD-10 - K57.92) 11/20/2024Epigastric abdominal pain (ICD-10 - R10.13)11/20/2024Le upper quadrant abdominal pain (ICD-10 - R10.12)01/07/2025Hypertension (ICD-10 - I10) 01/07/2025Diverticulitis (ICD-10 - K57.92)09/27/2024Le foot pain (ICD-10 - M79.672)10/02/2024Le foot pain (ICD-10 - M79.672)10/19/2024Le foot pain (ICD-10 - M79.672)10/21/2024Le foot pain (ICD-10 - M79.672)11/25/2024 Gallstones (ICD-10 - K80.20)12/03/2024UTI (urinary tract infection) (ICD-10 - N39.0)12/05/2024UTI (urinary tract infection) (ICD-10 - N39.0)12/23/2024UTI (urinary tract infection) (ICD-10 - N39.0)12/27/2024Hypertension (ICD-10 - I10) 12/27/2024Dysuria (ICD-10 - R30.0)01/07/2025GERD (gastroesophageal reflux disease) (ICD-10 - K21.9)09/13/2024OtherGet plenty of rest. Stay hydrated by sucking on ice chips or taking small sips of water. You can also try drinking clear soda, clear broths or noncaffeinated sports drinks. Stop eating solid foods for a few hours to let your stomach settle. East back into eating by eating bland, sshk-bc-xgaqsg foods like crackers, toast, gelatin, bananas, rice and chicken. Try to avoid foods/substances including dairy products, caffeine, alcohol, nicotine and fatty or highly seasoned foods. Medications such as i buprofen or tylenol can make your stomach more upset, so use sparingly if at all. Also avoid idoc-yqh-zqatbhu anti-diarrheal medications because it can make it harder for your body to eliminate the virus. Plan Of Treatment Pending Test Test Name Order Date UA (URINALYSIS, COMPLETE) 12/03/2024 UA (URINALYSIS, COMPLETE) 12/05/2024 UA (URINALYSIS, COMPLETE) 12/23/2024 UA (URINALYSIS, COMPLETE) 12/27/2024 UA (URINALYSIS, MICRO ONLY) 12/27/2024 Urine Culture 12/03/2024 XR Foot 2 Views Left 09/27/2024 AMYLASE 11/20/2024 CBC AUTO DIFF 11/20/2024 CULTURE URINE 12/05/2024 CULTURE URINE 12/27/2024 CULTURE URINE 12/23/2024 LIPASE 11/20/2024 PROF 14(COMP METB) 11/20/2024 URINE MICROSCOPIC ONLY 12/23/2024 URINE MICROSCOPIC ONLY 12/03/2024 CT ABD and PELV W CON 01/07/2025 US ABD 11/20/2024 US KIDNEYS BLADDER 12/27/2024 CT ANKLE LEFT WO CONTRAST 10/02/2024 CT FOOT LEFT WO CONTRAST 10/02/2024 Next Appt Details Provider Name:Les Dumont, 10:00:00 AM, [address] [place], [address], Insurance Providers Payer Name Payer Address Payer Phone Subscriber Number Group Number Insured Name Patient Relationship to Insured Coverage Start Date Coverage End Date MMO [employer] [address] [place] [address] [id number] Nancy Norris Self - patient is the insured 4 Medications Administered Medication Instructions Date of Administration Dosage Notes Promethazine 25mg 525 mg Medical (General) History Medical History History [...] Surgery Date(Month/Year) 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
--- OUTSIDE RECORDS SUMMARY | 2025-04-01 05:33 | XMS_ITS | Encounter Summary ---
Author Organization [facility] Address [address] [address] Phone Care Team Providers Care Polymerization Engineer Name Role Phone Rafael Dumont MD Primary Care Provider [phone] Encounter Details DateTypeDepartmentCare Team (Latest Contact Info)Bxtbazmbkza16/17/2025Travel Social History Tobacco UseTypesPacks/DayYears UsedDateSmoking Tobacco: NeverSmokeless Tobacco: NeverAlcohol UseStandard Drinks/WeekCommentsYes0 (1 standard drink = 0.6 oz pure alcohol)SocialCommentsUnknownSex and Gender InformationValueDate RecordedSex Assigned at BirthNot on fileLegal LxgIgztwr74/25/2022 9:36 AM EST Gender IdentityNot on fileSexual OrientationNot on filedocumented as of this encounter Functional Status * BPAnswerDate of XnftzwdkkfCtgkrx483/8203/31/2025 11:02 AM Eros Gilmore MA * PulseAnswerDate of EkpfrtjdxrCorvea1152/17/2025 11:02 AM Eros Gilmore MA * QuestionAnswerDate of AssessmentAuthorDo you have any of the following new or worsening symptoms?None of these03/31/2025 8:47 AM Kyung Sevilla documented as of this encounter Plan of Treatment DateTypeDepartmentCare Team (Latest Contact Info)Droszjkqanr31/24/2026 2:00 PM ESTOffice [address] [address] Luan Garcia MD 703 [facility] [address] [place] [address] documented as of this encounter Visit Diagnoses Not on filedocumented in this encounter Care Teams Team MemberRelationshipSpecialtyStart DateEnd Date Rafael Dumont MD [address] [facility] [place] [address] PCP - General05/15/99documented as of this encounter
--- NOTE | 2025-04-01 16:21 | CM.DCFOLLOWU ---
Person spoke with: Nancy How are you feeling? I'm still having some pain How is your pain? 6 out of 10 Did you understand your discharge instructions? Yes Do you have any questions about your discharge instructions? No Were you given any prescriptions at discharge? Yes Were you able to get your prescriptions filled? Yes Do you understand how to take your medications as ordered? Yes Do you have any questions about your follow up appointment and do you plan to keep your follow up appointment? No questions. The patient saw Dr Dumont today (04/01/2025) and saw Dr. Garcia on 03/31/2025 Is there anything else that you would like to discuss? No Questions/Comments/Concerns/Other:
== END 2025-03-30 14:12 | disposition home or self-care (01) ==
LOC: ER 03-30 01:04 → MS 03-30 11:30
PROVIDERS: Admitting Provider Internal Medicine; Emergency Provider Emergency Medicine; PCP Family Medicine; Visit Provider Hospitalist
DX: I48.91 Unspecified atrial fibrillation (principal); I10 Essential (primary) hypertension; R06.00 Dyspnea, unspecified; Z86.73 Personal history of transient ischemic attack (TIA), and cerebral infarction without residual deficits; R60.9 Edema, unspecified; Z79.899 Other long term (current) drug therapy; R07.9 Chest pain, unspecified
CPT/HCPCS: 36415; 71045; 80048; 80053; 80061; 83735; 84484; 85025; 93005; 96365; 96366; 96372; 96375; 96376; 99285; G0378; J1160; J1650

== ENCOUNTER 2025-04-17 10:00 | Outpatient (OUT) | payer BC, SELFPAY ==
--- NOTE | 2025-04-17 10:00 | CA_ITS ---
Patient Name: AMANDA NORRIS MR#: [id number] : 1960 Exam Date: 04/17/2025 Ordering Doctor: DR CECILIO SALAMANCA . ECHOCARDIOGRAM REPORT PROCEDURE: CA ECHO DOPPLER COMPLETE INDICATIONS: Atrial fibrillation with RVR, hypertension COMPARISON: None. DESCRIPTION: COMPLETE ECHOCARDIOGRAM Real-time transthoracic echocardiography with 2D, M-mode, spectral and color flow Doppler performed. QUALITY: Technical quality was good. LEFT VENTRICLE: Normal chamber size. Thickened septal wall. Systolic function is normal. Estimated LVEF is 60%. LV EF: Normal left ventricular ejection fraction, (>55%). DIASTOLIC: Normal diastolic function. ATRIAL SEPTUM: Visually appears intact. LEFT ATRIUM: Normal chamber size. RIGHT ATRIUM: Normal chamber size. RIGHT VENTRICLE: Normal chamber size. Normal right ventricular systolic function. TRICUSPID VALVE: Normal mobility and thickness. No stenosis with no regurgitation. Unable to assess right-sided pressures due to lack of measurable tricuspid regurgitation. MITRAL VALVE: Normal mobility and thickness. No evidence of mitral valve stenosis. There is no mitral annular calcification. No mitral regurgitation. AORTIC VALVE: Normal trileaflet appearance. No visible sclerosis. Normal leaflet mobility. No evidence of aortic valve stenosis. No aortic regurgitation. AORTIC ROOT: Normal diameter and appearance, measuring 3.6 cm. PULMONIC VALVE: Normal thickness and mobility. No stenosis. No regurgitation. PERICARDIUM: No evidence of pericardial effusion. IVC: Collapses with inspiration. PLEURA: CONCLUSION: 1. Normal ventricular size and systolic function. Estimated LVEF is 60%. 2. Normal diastolic function. 3. No significant valvular dysfunction. 4. Unable to assess right-sided pressures due to lack of measurable tricuspid regurgitation. Adult Echocardiography Procedure Report Left Ventricle LVEDD (3.7 - 5.6 cm): 3.91 cm LVESD (2.2 - 4.0 cm): 2.79 cm LVIVS thickness (0.6 - 1.2 cm): 1.09 cm LVPW thickness (0.5 - 1.0 cm): 0.89 cm e': 0.07 m/s E - e': 4.94 LVOT Max Gradient: 1.90 mm[Hg] LVOT Area (cm2): 0.69 m/s Peak Velocity (LVOT): 0.69 m/s Mean Velocity (LVOT): 0.48 m/s LVOT Diameter 2.10 cm Left Ventricular Ejection Fraction: 60 % Left Atrium LA Volume Index (2D A2C): 21.60 ml/m2 Left Atrium Systolic Dimension: 2.64 cm Mitral Valve MV E to A Ratio: 0.71 Mitral Valve A-Wave Peak Velocity: 0.50 m/s Mitral Valve E-Wave Peak Velocity: 0.36 m/s Right Ventricle Aorta AO Root Diam: 3.56 cm Aortic Valve AoV Area (Peak Marquise): 2.99 cm2, 2.99 cm2 AoV Area (VTI): 3.60 cm2, 3.60 cm2 Peak Velocity(Antegrade Flow): 0.80 m/s Peak Gradient(Antegrade Flow): 2.55 mm[Hg] Mean Velocity(Antegrade Flow): 0.54 m/s Mean Gradient(Antegrade Flow): 1.35 mm[Hg] Velocity Time Integral: 17.47 cm Tricuspid Valve Pulmonic Valve Mean Gradient: 1.61 mm[Hg] Mean Velocity: 0.59 m/s Peak Velocity: 0.86 m/s Peak Gradient: 2.95 mm[Hg] Right Atrium Right Atrium Systolic Pressure: 46.31 ml, 46.31 ml Dictated by: Jl Chou M.D. on 04/17/2025 at 21:08 Approved by: Jl Chou M.D. on 04/17/2025 at 21:11
--- OUTSIDE RECORDS SUMMARY | 2025-04-17 10:03 | XMS_ITS | Clinical Summary ---
Author Organization [facility] Address [address] [place] [address] Care Team Providers Care Director Of Student Affairs Name Role Phone Rafael Dumont MD Primary Care Provider [phone] Allergies No known active allergies Medications MedicationSigDispense [...] InformationValueDate RecordedSex Assigned at BirthNot on fileLegal SsoMtcvsn42/15/2023 7:21 PM EDTGender Identity Not on fileSexual OrientationNot on file Last Filed Vital Signs Vital SignReadingTime TakenCommentsBlood Fzzsgjpx258/7402 12:00 PM EST Pulse--Temperature--Respiratory Pokj155911/20/2024 4:21 PM EDTOxygen Saturation-- Inhaled Oxygen Concentration--Habiqs44.5 kg (215 lb)11/20/2024 4:21 PM EDTHeight 170.2 cm (5' 7 )11/20/2024 4:21 PM EDTBody Mass Index33.67011/20/2024 4:21 PM EDT Plan of Treatment Health MaintenanceDue DateLast DoneCommentsCT Xwvmqdlsibbu93/19/1963Colonoscopy 1962Colorectal Cancer Clkntlqrd06/19/1963FIT-DNA1962FIT1962 FOBT1962 3794Cjddvjikpoewt99/19/1963Pap Smear1983Cervical Cancer Pepobkfqy18/19/1993HPV/Pnigvn0706/02/19927944Ktcaecwgx02/20/202207/, 11/19/2020 COVID-19 Vaccine ( season), 06/16/2020, 05/19/2020Influenza Vaccine (#1), 02/27/2023, 01/14/2020 Pneumococcal Vaccine: Pediatrics (0 to 5 Years) and At-Risk Patients (6 to 64 Years)Aged OutNo longer eligible based on patient's age to complete this topic Procedures Procedure NamePriorityDate/TimeAssociated DiagnosisCommentsBI MAMMOGRAM DIAGNOSTIC CSEBSZhrrlav75/20/2021 from Last 3 Months or Most Recently [...] Danette Granger M.D.12/01/2020 7:55 AM Dictation Location: [facility] Transcribed By: ? PWS ?07/20/21 0755 Dictated By: ?Danette Granger MD ?12/01/20 0749 Signed By: <Electronically signed by MD Danette Granger in [place]> ? 12/01/20 0755 Narrative 12/01/2020 12:00 AM EDT PERFORMED AT [facility] LOCATION:[place] [address] ?[facility] [place] ?[address] ? [place] [address] ? Mammography Report ? Signed Patient: Rufus,Gurli A ?MR#: [id number] : 1960 ?Acct:[id number] Age/Sex: 60 / F ?ADM Date: 12/01/20 Loc: [place] ?Room: ?Type: REG CLI Attending Dr: Brannon Winter DO Ordering Provider: Brannon Winter DO Date of Service: 12/01/20 MM/MM special view RT w/CAD: ABN [facility] [place] Copies to: MD Brannon Zelaya,DO CLINICAL DATA: [...] Note CONVERSION, GENERIC - 11/18/[address] [facility] LOCATION:[address] [place] [address] Mammography Report Signed Patient: Nancy Hooper AMR#: [id number] : 1960Acct:[id number] Age/Sex: 60 / FADM Date: 12/01/20 Loc: [place] Room:Type: [facility] Attending Dr: Brannon Winter DO Ordering [...] Danette Granger M.D.12/01/2020 7:55 AM Dictation Location: [facility] Transcribed By: [facility] 12/01/20 0755 Dictated By: Danette Granger MD 12/01/20 0749 Signed By: <Electronically signed by MD Danette Granger in [place]> 12/01/20 0755 Authorizing ProviderResult TypeResult StatusWilliam Lluvia Winter DOIMG BI PROCEDURES Final Result from Last 3 Months or Most Recently Relevant to Health Maintenance Insurance Care Teams Team MemberRelationshipSpecialtyStart Date Rafael Dumont MD [address] [place] [address] PCP - GeneralFamily Medicine11/06/24
--- OUTSIDE RECORDS SUMMARY | 2025-04-17 10:03 | XMS_ITS | Clinical Summary ---
Author Organization [facility] Address [address] [place] [address] Phone Care Team Providers Care Tile Layer Helper Name Role Phone Rafael Dumont MD Primary Care Provider [phone] Allergies Active AllergyReactionsCriticalityNoted DateCommentsCefuroxime AxetilRashLow 06/17/20084842HakokejgxcsoMwdnapb99/03/2009MorphineHives,Itching,PydlXya5103/13/2023 OtherHives,Itching,Fever5380EbriosauvrnVhpxChl32/03/2009TopiramateDiarrhea 03/14/2023 Medications MedicationSigDispense QuantityRefillsLast FilledStart DateEnd DateStatus [...] Discontinued(Reorder) Active Problems ProblemNoted DateDiagnosed DateParoxysmal atrial qlkspiqvxgdt15/17/2025Shortness of eqlxpf8403/31/2025Never smoked wcfxqyy9403/22/2024recordial pain03/24/2023MI 35.0-35.9,adult03/24/20235160Gthpnwhlbhxhdj40/30/2023Essential (primary) /30/2023 Resolved Problems ProblemNoted DateDiagnosed DateResolved DateEncounter to discuss test results Encounters DateTypeDepartmentCare PfqeGkgizigobqw80/17/2025 10:40 AM ESTOffice Visit [facility] [address] [address] Luan Garcia MD Atrial flutter, unspecified type (Multi) (Primary Dx); Shortness of breath; Precordial pain; Essential (primary) hypertension; Diverticulosis; BMI 35.0-35.9,adult; Never smoked tobacco Discharge Disposition: Home03/31/20258515Pjeoip07/15/2025Scanned Document [facility] [address] [place] [address] Scanning, Generic Provider from Last 3 Months Immunizations ImmunizationAdministration DatesNext DueFlu vaccine (IIV4), preservative free *Check age/dose*02/27/2023,01/14/2020Influenza, seasonal, ypoaxgslim29/30/2025 Novel vkdkxvrdg-M5E1-89, preservative-free04/22/2009 Family History Medical HistoryRelationNameCommentsHeart attackBrother 1CancerFatherBobClotting disorderFatherBobThyroid diseaseMotherPatriciaRelationNameStatusCommentsBrother 1Brother 2BobFatherBobAliveMotherPatriciaAlive Social History Tobacco UseTypesPacks/DayYears UsedDateSmoking Tobacco: NeverSmokeless Tobacco: Never Tobacco Cessation:Counseling Given: Yes Alcohol UseStandard Drinks/WeekCommentsYes0 (1 standard drink = 0.6 oz pure alcohol)SocialCommentsUnknownSex and Gender InformationValueDate RecordedSex Assigned at BirthNot on fileLegal MenWflvnd41/25/2022 9:36 AM EST Gender IdentityNot on fileSexual OrientationNot on file Last Filed Vital Signs Vital SignReadingTime TakenCommentsBlood Vtuooijb266/8203/31/2025 11:02 AM EST Pvhct723403/31/2025 11:02 AM ESTTemperature--Respiratory Xdud5650 12:10 PM EDTOxygen Mysnisitin24%03/14/2023 12:10 PM EDTInhaled Oxygen Concentration-- Fqysmd042 kg (227 lb)03/31/2025 11:02 AM JXEWsufvv633.2 cm (5' 7 )03/31/2025 11:02 AM ESTBody Mass Index35.5503/31/2025 11:02 AM EST Plan of Treatment DateTypeDepartmentCare Team (Latest Contact Info)Pfezicrroii32/24/2026 2:00 PM ESTOffice Visit [facility] [address] [facility] [address] [place] [address] Luan Garcia MD [address] [facility] [address] [place] [address] Health MaintenanceDue DateLast DoneCommentsCT Yiovicpmrolg44/19/1963Colonoscopy 1962Colorectal Cancer Bojfookyd87/19/1963FIT-DNA (Cologuard)1962FIT 1962HIV Khmifqxbo68/19/1963Lipid Panel1962 6234Fauzrzkokxthb11/19/1963 Yearly Adult Eokoczef45/19/1963Diabetes Ltgvjdqtg37/19/1981Hepatitis C Screening 1980Hepatitis A Vaccines (1 of 2 - Risk 2-dose series)1981Cervical Cancer Bezfaqfto15/19/1984HPV/Idueku0106/02/1983Pap Smear1983DTaP/Tdap/Td Vaccines (1 - Tdap)1984MMR Vaccines (1 of 1 - Standard series)05/20/2009 Pneumococcal Vaccine (1 of 1 - PCV)2012RSV High Risk: (Elderly (60+) or Population) (1 - Risk 50-74 years 1-dose series)2012Zoster Vaccines (1 of 2)06/02/20126272Isvrhbjlv20/20/202207/, 12/01/2020, 11/19/2020 Hepatitis B Vaccines (1 of 3 - Risk 3-dose series)3COVID-19 Vaccine ( - 2024- season)5107/05/2020, 06/16/2020, 05/19/2020Influenza Vaccine Gpdlfqlne97/30/2025, 02/10/2025, 02/26/2024, Additional history existsHIB VaccinesAged OutNo [...] LateralityCollection Method / VolumeCollection TimeReceived Time Narrative [facility] - 03/31/2025 11:33 AM EST Normal sinus rhythm with mild sinus arrhythmia\ Authorizing ProviderResult TypeResult StatusMourhaf Veliai MDECG ORDERABLES Final ResultPerforming OrganizationAddressCity/State/ZIP CodePhone Number CPA * Electrocardiogram (03/29/2025) Narrative 03/29/2025 Ordered by an unspecified provider. Authorizing ProviderResult TypeResult StatusGeneric Provider ScanningECG ORDERABLESFinal Result from Last 3 Months Insurance Care Teams Team MemberRelationshipSpecialtyStart DateEnd Rafael Dumont MD [address] [place] [address] PCP - General05/15/99
--- OUTSIDE RECORDS SUMMARY | 2025-04-17 10:03 | XMS_ITS | Clinical Summary ---
Author Organization [facility] Address [address] [place] [address] Care Team Providers Care Machine Printer Name Role Phone Rafael Dumont MD Primary Care Provider [phone] Allergies Active AllergyReactionsCriticalityNoted LikrRhjudqpjLhvteruaeyl44/03/2009 Cefuroxime Yyxwur4706/17/20087889Kecmfanwophq14/03/8215Qixrilbakxmp10/03/2009 Social History Tobacco UseTypesPacks/DayYears UsedDateSmoking Tobacco: NeverAlcohol UseStandard Drinks/WeekCommentsNot Asked0 (1 standard drink = 0.6 oz pure alcohol) CommentsNoSex and Gender InformationValueDate RecordedSex Assigned at BirthNot on fileLegal RigXjfeze11/02/2012 8:18 AM ESTGender IdentityNot on fileSexual OrientationNot on file Last Filed Vital Signs Vital SignReadingTime TakenCommentsBlood Pressure--Pulse--Temperature-- Respiratory Rate--Oxygen Saturation--Inhaled Oxygen Concentration--Mkqavz20.8 kg (220 lb)06/17/2008 2:47 PM AWUNxdsus091.7 cm (5' 8 )06/17/2008 2:47 PM ESTBody Mass Index33.45006/17/2008 2:47 PM EST Plan of Treatment Health MaintenanceDue DateLast DoneCommentsAnxiety Ithqdcpfd69/19/1981Depression Izwxqxsgk65/19/1981HIV Ubvzdbbhr18/19/1981Hepatitis C Ixxfkysji16/19/1981 DTaP,Tdap,Td Vaccine (1 - Tdap)1981Cervical Cancer Svxasjcxl16/19/1984 Mammogram Xzicuoswo68/19/2003CT Lbehlfuzwrsz59/19/2008Cologuard (FIT-DNA) 06/02/20074713Jnuicuybgtm84/19/2008Colorectal Cancer Vupifqvzb54/19/2008Diabetes Xzdbrvtgc96/19/2008Fecal Occult Blood2007Lipid Swbmhrkta70/19/2008 Dntopbnyvysuc10/19/2008Pneumococcal Vaccine: 50+ (1 of 1 - PCV)2012 Shingrix Vaccine (1 of 2)2012Covid-19 Vaccine (1 - 2024- season) 2025Influenza Vaccine (#1)2025RSV Vaccine (1 - 1-dose 75+ series) 2037 Insurance Care Teams Team MemberRelationshipSpecialtyStart DateEnd Rafael Dumont MD PCP - General06/12/08
--- OUTSIDE RECORDS SUMMARY | 2025-04-17 10:03 | XMS_ITS | Patient Health Record ---
Author Organization [facility] in [place] Address [address] [place] [address] Care Team Providers Care Medical Instrument Technician Name Role Phone Les Dumont Primary Care Provider Allergies Allergen (clinical drug ingredient) Drug/Non Drug Allergy documented on EMR Reaction Allergy Type Onset Date Status sulfamethoxazole / trimethoprim Bactrim rash Drug Allergy ActiveCeftinhivesDrug AllergyActivetopiramateTopamaxMultiple Side EffectsDrug AllergyActiveVibramycinhivesDrug AllergyActiveFlu Virus VaccinehivesDrug Allergy ActiveerythromycinErythromycinhivesDrug AllergyActivemorphineMorphineswelling Drug AllergyActivePenicillinhivesDrug AllergyActive Results Component Value Reference Range Notes CT abdomen pelvis w con Reviewed date:12/25/2024 12:49:47 PM Interpretation: Performing Lab: Notes/Report: Source Facility: [place] [id number] CT Scan Report Signed Patient: NANCY NORRIS MR#: [id number] : 1960 Acct:[id number] Age/Sex: 64 / F ADM Date: 12/25/24 Loc: CT Attending Dr: Anna Breaux M.D. Ordering Physician: Anna Breaux M.D. Date of Service: 12/25/24 Procedure(s): CT abdomen pelvis w con Accession Number(s): [id number] cc: Rafael Dumont M.D. [place] [id number] Patient Name: NANCY NORRIS MRN: [id number] date: 1960 Sex: F Assigned Patient Location: CT Current Patient Location: CT Accession/Order Number: [id number] Exam Date: 12/25/2024 12:39 Report Date: 12/25/2024 [...] diverticulosis. Impression dictated by: Will Voss Jr., DBelemOBelem 12/25/2024 12:42 PM Dictation Location: [place] [address] Electronically authenticated by: [id number] Y Date: 12/25/2024 12:42 Dictated By: Will Voss M.D. Signed By: 12/25/24 1244 DD/ 1242 TD/TT: Pan Operator: CBC AUTO DIFF Reviewed date:12/30/2024 01:06:53 PM Interpretation: Performing Lab: Notes/Report: [facility] , White Blood Count 19.1 4.0-11.0 10 3/uL Red Blood Count4.824.20-5.40 10 6/rVCdewpgftje01.512.0-16.0 g/hTSrurecsvyh32.2 36.0-48.0 %Mean Corpuscular Uhyrbr70.681.0-99.0 fLMean Corpuscular Hemoglobin 30.126.7-34.0 pgMean Corpuscular HGB Conc33.629.9-35.2 g/dLRed Cell Distribution Width13.011.0-15.0 %Platelet Esqlu636021-891 10 3/uLMean Platelet Volume9.09.5- 13.5 fLPerforming Lab:see noteML - [facility] LBD-DIMER Reviewed date:12/30/2024 01:06:53 PM Interpretation: Performing Lab: Notes/Report: [facility] ,D Dimer0.85<=0.59 mg/L FEU event cannot be diagnosed with certainty on the basis of the Increases in D-Dimer concentration observed with or anticoagulant therapy, stress, and generalized hospitalization. hematoma, DIC, trauma, post-surgery, diabetes, thrombolytic thromboembolic events can be variable due to localization, disease, cancer, liver disease, infection, inflammation, Beatriz at 2148 of disorders including advanced age, , coronary RESULTS CALLED TO ARMIN SHAHID RN @BY Dana Willingham size, and age of the thrombus. Therefore, a thromboembolic reference range. D-Dimers may also be elevated for a variety Performing Lab:see noteML - [facility] LBLACTATE or LACTIC ACID Reviewed date:12/30/2024 01:06:53 PM Interpretation: Performing Lab: Notes/Report: [facility] ,Lactate/Lactic Acid1.30.4-2.0 mmol/LPerforming Lab:see noteML - [facility] LBPROF 14(COMP METB) Reviewed date:12/30/2024 01:06:53 PM Interpretation: Performing Lab: Notes/Report: [facility] ,Hvakon895745-883 mmol/LPotassium3.53.5-5.1 mmol/FGcllexdf47917-651 mmol/LCarbon Cnqjvxn36.721.0-32.0 mmol/LAnion Gap8.9Hjbuqye24359-451 mg/dLBlood Urea Ysbvibfi96.07.0-18.0 mg/dLCreatinine0.790.55-1.02 mg/dLEstimated GFR ( Moon>60>=60 mL/min/1.73m 2Estimated GFR (Non- Shantelle>60>=60 mL/min/1.73m 2BUN Creatinine Ratio32.8Raohvos7.38.5-10.1 mg/dLBilirubin Total0.30.2-1.0 mg/dL Aspartate Amino Orlrrmhtovx553-49 U/LAlanine Rgoifrzzpxuriwup8126-11 U/LAlkaline Tgxmimlmgey1615-808 U/LTotal Protein7.76.4-8.2 g/dLAlbumin Level3.53.4-5.0 g/dL Globulin4.2Albumin Globulin Ratio0.8Performing Lab:see noteML - [facility] LBUA RANDOM W or MICROSCOPIC Reviewed date:12/30/2024 01:06:53 PM Interpretation: Performing Lab: Notes/Report: [facility] ,Color UrineLT. YELLOWYELLOWClarity UrineCLEARCLEARSpecific Dendron Urine1.025 1.005-1.025pH Urine5.55.0-9.0Protein UrineNEGATIVENEG/TRACE mg/dLGlucose Urine UANEGATIVENEGATIVE mg/dLBilirubin UrineNEGATIVENEGATIVEKetones UrineNEGATIVE NEGATIVE mg/dLBlood UrineSMALLNEGATIVENitrite UrineNEGATIVENEGATIVEUrobilinogen Urine0.20.2-1.0 EU/dLLeukocyte Esterase UrineNEGATIVENEGATIVEWBC Urine0-2NONE SEEN #/HPFRBC Urine0-20-2 #/HPFBacteria UrineNONE SEENNONE SEEN #/HPFMucus Urine NONE SEENNONE SEENSquamous Epithelial Cell UrineRARENONE/RARE #/LPFCrystals Seen?SeenNone Seen #/HPFAmorphous Sediment UrineRARECast Seen?NONE SEENNONE SEEN #/LPFUrine Culture IndicatedNOPerforming Lab:see noteML - [facility] LBManual Differential Reviewed date:12/30/2024 01:06:53 PM Interpretation: Performing Lab: Notes/Report: [facility] ,Segmented Neutrophils % Whkxod43.043.0-75.0Lymphocytes Percent Manual9.020.5- 60.0 %Monocytes Percent Manual4.01.7-12.0 %Eosinophils Percent Manual0.00.9-7.0 %Basophils Percent Manual1.00.2-2.0 %Atypical Lymphocytes % Pefgyv72.0 Promyelocytes % Manual1.0Segmented Neut Absolute Vnrrpc36.751.4-6.5 10 3/uL Lymphocytes Absolute Manual1.711.20-3.80 10 3/uLMonocytes Absolute Manual0.76 0.30-0.80 10 3/uLEosinophils Absolute Manual0.000.00-0.70 10 3/uLBasophils Abs Manual0.190.00-0.10 10 3/uLAtypical Lymphocytes Abs Man2.67Promyelocytes Absolute Manual0.19Performing Lab:see noteML - [facility] LBTroponin I High Sensitivity Reviewed date:12/30/2024 01:06:53 PM Interpretation: Performing Lab: Notes/Report: [facility] ,Troponin I High Sensitivity4.84.0-51.3 pg/mL USED IN ISOLATION BUT SHOULD BE INTERPRETED IN CONJUNCTION HAS BEEN CONFIRMED THE DECISION THRESHOLD FOR MS NOTE: HIGH-SENSITIVITY TROPONIN ASSAY IS NOT INTENDED TO BE DIAGNOSIS. PERCENTILE OF cTnI DISTRIBUTION IN A REFERENCE POPULATION, WITH OTHER DIAGNOSTIC AND CLINICAL INFORMATION. CUT-OFF POINTS HAVE BEEN ESTABLISHED BASED ON THE FOURTH 99TH PERCENTILE = 51.4 PG/ML UNIVERSAL DEFINITION OF MYOCARDIAL INFARCTION. THE UPPER REFERENCE LIMIT (URL) OF TROPONIN, DEFINED THE 99TH Performing Lab:see noteML - [facility] LBECG 12 lead Reviewed date:12/30/2024 07:12:00 PM Interpretation: Performing Lab: Notes/Report: Source Facility: [facility]-[address] [place] [address] [place] [address] Electrocardiograph Report Signed Patient: NANCY NORRIS MR#: [id number] : 1960 Acct:[id number] Age/Sex: 64 / F ADM Date: 12/29/24 Loc: MS 203-[address]: Magdaleno Ross M.D. Ordering Physician: Louann Amor Date of Service: 12/29/24 Procedure(s): ECG 12 lead Accession Number(s): [id number] cc: [facility] Test Date: 2024-12-29 Pat Name: NANCY NORRIS Department: Room: - Gender: Female Counsellors: : 1960 Requested By: 0939 Order Number: [id number] Reading MD: BRANT PATEL M.D. Measurements Intervals Eden Rate: 80 P: 33 IA: 160 QRS: 51 QRSD: 84 T: 46 QT: 364 QTc: 401 Interpretive Statements 1100 Sinus rhythm 73312 Cannot rule out inferior myocardial infarction with posterior extension, age undetermined 9150 abnormal ECG Compared to ECG 01/18/2024 21:18:55 No significant changes Electronically Signed On 12-30-2024 17:46:47 EDT by BRANT PATEL M.D. Dictated By: BRANT PATEL Signed By: 12/30/24 1747 DD/ 03 TD/TT: Pan Operator:CBC AUTO DIFF Reviewed date:12/30/2024 01:06:53 PM Interpretation: Performing Lab: Notes/Report: [facility] ,White Blood Count16.54.0-11.0 10 3/uLRed Blood Count4.184.20-5.40 10 6/uL Xtcugohwms23.612.0-16.0 g/sQVbgifiimst48.136.0-48.0 %Mean Corpuscular Kxzgzv91.1 81.0-99.0 fLMean Corpuscular Lkeotvjckj78.126.7-34.0 pgMean Corpuscular HGB Conc 33.129.9-35.2 g/dLRed Cell Distribution Width13.211.0-15.0 %Platelet Wvukp718 150-450 10 3/uLMean Platelet Volume9.19.5-13.5 fLNeutrophils Percent Auto73.2 43.0-75.0 %Lymphocytes Percent Auto16.520.5-60.0 %Monocytes Percent Auto8.71.7- 12.0 %Eosinophils Percent Auto0.40.9-7.0 %Basophils Percent Auto0.20.2-2.0 % Immature Granulocytes Pct Auto1.00.0-0.5 %Neutrophils Absolute Auto12.11.4-6.5 10 3/uLLymphocytes Absolute Auto2.71.2-3.8 10 3/uLMonocytes Absolute Auto1.40.3- 0.8 10 3/uLEosinophils Absolute Auto0.10.0-0.7 10 3/uLBasophils Absolute Auto0.0 0.0-0.1 10 3/uLImmature Granulocytes Abs Auto0.160.00-0.03 10 3/uLPerforming Lab:see note - [facility] LBMAGNESIUM Reviewed date:12/30/2024 01:06:53 PM Interpretation: Performing Lab: Notes/Report: [facility] ,Magnesium1.81.8-2.4 mg/dLPerforming Lab:see note - [facility] LB PROF 14(COMP METB) Reviewed date:12/30/2024 01:06:53 PM Interpretation: Performing Lab: Notes/Report: [facility] ,Wyfhms279157-780 mmol/LPotassium3.93.5-5.1 mmol/EGwpqzwnq68537-255 mmol/LCarbon Gxosdqu72.921.0-32.0 mmol/LAnion Gap8.9Fleeiai52918-667 mg/dLBlood Urea Axwbpkdm86.07.0-18.0 mg/dLCreatinine0.540.55-1.02 mg/dLEstimated GFR ( Moon>60>=60 mL/min/1.73m 2Estimated GFR (Non- Shantelle>60>=60 mL/min/1.73m 2BUN Creatinine Ratio46.7Xoinmgf9.18.5-10.1 mg/dLBilirubin Total0.70.2-1.0 mg/dL Aspartate Amino Mvpfbfbcalb586-30 U/LAlanine Odiiowseupbckawt7805-38 U/LAlkaline Uglitmbopcm5309-493 U/LTotal Protein6.16.4-8.2 g/dLAlbumin Level2.73.4-5.0 g/dL Globulin3.4Albumin Globulin Ratio0.8Performing Lab:see note - [facility] LBPROF 14(COMP METB) Reviewed date:01/01/2025 12:54:26 PM Interpretation: Performing Lab: Notes/Report: [facility] ,Qpgqzy619535-331 mmol/LPotassium3.83.5-5.1 mmol/MUdadxpbw69787-590 mmol/LCarbon Xiigunk49.721.0-32.0 mmol/LAnion Gap11.0Qdveree75312-245 mg/dLBlood Urea Zsyxpehs55.07.0-18.0 mg/dLCreatinine0.600.55-1.02 mg/dLEstimated GFR ( Moon>60>=60 mL/min/1.73m 2Estimated GFR (Non- Shantelle>60>=60 mL/min/1.73m 2BUN Creatinine Ratio28.1Pghpzom9.78.5-10.1 mg/dLBilirubin Total0.80.2-1.0 mg/dL Aspartate Amino Wlrmyunovpu047-99 U/LAlanine Pajvgtabahwleakk0891-64 U/LAlkaline Nqsluonuvob9155-360 U/LTotal Protein6.86.4-8.2 g/dLAlbumin Level2.63.4-5.0 g/dL Globulin4.2Albumin Globulin Ratio0.6Performing Lab:see note - [facility] LBCBC no Diff (Hemogram) Reviewed date:01/01/2025 12:54:26 PM Interpretation: Performing Lab: Notes/Report: [facility] ,White Blood Count13.64.0-11.0 10 3/uLRed Blood Count4.244.20-5.40 10 6/uL Ownnogadka09.812.0-16.0 g/qKQntrmjzqpw03.136.0-48.0 %Mean Corpuscular Rctghe13.9 81.0-99.0 fLMean Corpuscular Idwpdcycve09.226.7-34.0 pgMean Corpuscular HGB Conc 33.629.9-35.2 g/dLRed Cell Distribution Width12.811.0-15.0 %Platelet Aupga950 150-450 10 3/uLMean Platelet Volume8.99.5-13.5 fLPerforming Lab:see note - [facility] LBECG 12 lead Reviewed date:03/30/2025 12:02:02 PM Interpretation: Performing Lab: Notes/Report: Source Facility: [facility]-[address] [place] [address] [address] Electrocardiograph Report Signed Patient: NANCY NORRIS MR#: [id number] : 1960 Acct:[id number] Age/Sex: 64 / F ADM Date: 03/29/25 Loc: MS 223- Attending Dr: Magdaleno Ross M.D. Ordering Physician: Magdaleno Ross M.D. Date of Service: 03/30/25 Procedure(s): ECG 12 lead Accession Number(s): [id number] cc: [facility] Test Date: 2025-03-30 Pat Name: NANCY NORRIS Department: Room: [facility] Gender: Female Counsellors: : 1960 Requested By: 2802 Order Number: [id number] Reading MD: BRANT PATEL M.D. Measurements Intervals Eden Rate: 70 P: 37 IA: 182 QRS: 70 QRSD: 78 T: 73 [...] M.D. Dictated By: BRANT PATEL Signed By: 03/30/2555 DD/ 1 TD/TT: Pan Operator:Troponin I High Sensitivity Reviewed date:03/30/2025 12:02:02 PM Interpretation: Performing Lab: Notes/Report: [facility] ,Troponin I High Wkwnfsajfkd76.54.0-51.3 pg/mL DIAGNOSIS. PERCENTILE OF cTnI DISTRIBUTION IN A REFERENCE POPULATION, 99TH PERCENTILE = 51.4 PG/ML CUT-OFF POINTS HAVE BEEN ESTABLISHED BASED ON THE FOURTH USED IN ISOLATION BUT SHOULD BE INTERPRETED IN CONJUNCTION NOTE: HIGH-SENSITIVITY TROPONIN ASSAY IS NOT INTENDED TO BE HAS BEEN CONFIRMED THE DECISION THRESHOLD FOR MS REFERENCE LIMIT (URL) OF TROPONIN, DEFINED THE 99TH WITH OTHER DIAGNOSTIC AND CLINICAL INFORMATION. UNIVERSAL DEFINITION OF MYOCARDIAL INFARCTION. THE UPPER Performing Lab:see noteML - [facility] LBTroponin I High Sensitivity Reviewed date:03/30/2025 12:02:02 PM Interpretation: Performing Lab: Notes/Report: [facility] ,Troponin I High Roozbofzebp74.34.0-51.3 pg/mL DIAGNOSIS. MOOK Harman at 0037 REFERENCE LIMIT (URL) OF TROPONIN, DEFINED THE 99TH UNIVERSAL DEFINITION OF MYOCARDIAL INFARCTION. THE UPPER 99TH PERCENTILE = 51.4 PG/ML USED IN ISOLATION BUT SHOULD BE INTERPRETED IN CONJUNCTION NOTE: HIGH-SENSITIVITY TROPONIN ASSAY IS NOT INTENDED TO BE PERCENTILE OF cTnI DISTRIBUTION IN A REFERENCE POPULATION, WITH OTHER DIAGNOSTIC AND CLINICAL INFORMATION. HAS BEEN CONFIRMED THE DECISION THRESHOLD FOR MS RESULTS CALLED TO TUSHAR Monroe RN @BY Tip Dee CUT-OFF POINTS HAVE BEEN ESTABLISHED BASED ON THE FOURTH Performing Lab:see noteML - [facility] LBPROF 14(COMP METB) Reviewed date:03/30/2025 12:02:02 PM Interpretation: Performing Lab: Notes/Report: [facility] ,Kwoszy694283-626 mmol/LPotassium4.23.5-5.1 mmol/EPgdlsziy85111-839 mmol/LCarbon Wnpelka93.321.0-32.0 mmol/LAnion Gap13.3Rcfxgkx06299-262 mg/dLBlood Urea Zdmhivfx34.07.0-18.0 mg/dLCreatinine0.620.55-1.02 mg/dLEstimated GFR ( Moon>60>=60 mL/min/1.73m 2Estimated GFR (Non- Shantelle>60>=60 mL/min/1.73m 2BUN Creatinine Ratio45.5Xpgxnzz6.78.5-10.1 mg/dLBilirubin Total0.30.2-1.0 mg/dL Aspartate Amino Cyraizolhpo9674-94 U/LAlanine Cbntaivmclbkhfmy2334-28 U/L Alkaline Uyyjmwczavp4071-794 U/LTotal Protein6.76.4-8.2 g/dLAlbumin Level3.23.4- 5.0 g/dLGlobulin3.5Albumin Globulin Ratio0.9Performing Lab:see noteML - [facility] LBMAGNESIUM Reviewed date:03/30/2025 12:02:02 PM Interpretation: Performing Lab: Notes/Report: [facility] ,Magnesium1.91.8-2.4 mg/dLPerforming Lab:see noteML - [facility] LB LIPID PROFILE Reviewed date:03/30/2025 12:02:02 PM Interpretation: Performing Lab: Notes/Report: [facility] ,Vbdnhkxnnuzbm63<=150 mg/eRWsbfkqdjvrj500<=200 mg/dLHDL Bejytqtnwrs7023-72 mg/dL > or =60 mg/dl - LOW CARDIOVASCULAR RISK <40 mg/dl - HIGH CARDIOVASCULAR RISK LDL Cholesterol Tsmgimegth58.4 >190 mg/dl VERY HIGH 100-129 mg/dl NEAR OR ABOVE OPTIMAL <100 mg/dl OPTIMAL 130-159 mg/dl BORDERLINE HIGH 160-189 mg/dl HIGH VLDL XZYINBUMYVT63.6Chol HDL Ratio3.3 4.4 - 7.1 AVERAGE RISK >11.0 HIGH RISK 3.3 - 4.4 LOW RISK 7.1 - 11.0 MODERATE RISK Performing Lab:see noteML - [facility] LBCBC AUTO DIFF Reviewed date:03/30/2025 12:02:02 PM Interpretation: Performing Lab: Notes/Report: [facility] ,White Blood Count10.04.0-11.0 10 3/uLRed Blood Count4.564.20-5.40 10 6/uL Kqbfzjhxwx30.712.0-16.0 g/wDHkwebenvvo49.236.0-48.0 %Mean Corpuscular Fypvtn52.4 81.0-99.0 fLMean Corpuscular Gyestrwxsx30.026.7-34.0 pgMean Corpuscular HGB Conc 33.329.9-35.2 g/dLRed Cell Distribution Width13.011.0-15.0 %Platelet Wzhem788 150-450 10 3/uLMean Platelet Volume9.29.5-13.5 fLNeutrophils Percent Auto59.9 43.0-75.0 %Lymphocytes Percent Auto30.320.5-60.0 %Monocytes Percent Auto7.91.7- 12.0 %Eosinophils Percent Auto0.90.9-7.0 %Basophils Percent Auto0.70.2-2.0 % Immature Granulocytes Pct Auto0.30.0-0.5 %Neutrophils Absolute Auto6.01.4-6.5 10 3/uLLymphocytes Absolute Auto3.01.2-3.8 10 3/uLMonocytes Absolute Auto0.80.3- 0.8 10 3/uLEosinophils Absolute Auto0.10.0-0.7 10 3/uLBasophils Absolute Auto0.1 0.0-0.1 10 3/uLImmature Granulocytes Abs Auto0.030.00-0.03 10 3/uLPerforming Lab:see noteML - [facility] LBECG 12 lead Reviewed date:03/30/2025 12:02:02 PM Interpretation: Performing Lab: Notes/Report: Source Facility: [facility]-[address] [place] [address] [place] [address] Electrocardiograph Report Signed Patient: NANCY NORRIS MR#: [id number] : 1960 Acct:[id number] Age/Sex: 64 / F ADM Date: 03/29/25 Loc: MS 223-[address]: Magdaleno Ross M.D. Ordering Physician: Jean-Pierre Edward M.D. Date of Service: 03/29/25 Procedure(s): ECG 12 lead Accession Number(s): [id number] cc: [facility] Test Date: 2025-03-29 Pat Name: NANCY NORRIS Department: Room: - Gender: Female Counsellors: : 1960 Requested By: 1030 Order Number: [id number] Reading MD: BRANT PATEL M.D. Measurements Intervals Eden Rate: 154 P: -15159 IA: QRS: 70 QRSD: 118 T: -9 QT: 368 QTc: 455 Interpretive Statements ATRIAL FLUTTER WITH 2:1 AV BLOCK 2450 Right bundle branch block 13833 Twave abnormality, possible anterolateral ischemia or digitalis effect 58759 Twave abnormality, possible inferior ischemia or digitalis [...] Signed By: 03/30/25 0645 DD/ 2300 TD/TT: Pan Operator:Troponin I High Sensitivity Reviewed date:03/30/2025 12:02:02 PM Interpretation: Performing Lab: Notes/Report: [facility] ,Troponin I High Moixhwwgpya11.64.0-51.3 pg/mL REFERENCE LIMIT (URL) OF TROPONIN, DEFINED THE 99TH [employer], 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 PERCENTILE OF cTnI DISTRIBUTION IN A REFERENCE POPULATION, 99TH PERCENTILE = 51.4 PG/ML UNIVERSAL DEFINITION OF MYOCARDIAL INFARCTION. THE UPPER HAS BEEN CONFIRMED THE DECISION THRESHOLD FOR MS DIAGNOSIS. NOTE: HIGH-SENSITIVITY TROPONIN ASSAY IS NOT INTENDED TO BE CUT-OFF POINTS HAVE BEEN ESTABLISHED BASED ON THE FOURTH Performing Lab:see noteML - [facility] LBPROF CHEM 8 (BAS METB) Reviewed date:03/30/2025 12:02:02 PM Interpretation: Performing Lab: Notes/Report: [facility] ,Dyvgst716463-900 mmol/LPotassium3.63.5-5.1 mmol/CByoxbtvo42062-050 mmol/LCarbon Vlgnqbf70.921.0-32.0 mmol/LAnion Gap14.4Rlkbfij23678-364 mg/dLBlood Urea Igpjopsz76.07.0-18.0 mg/dLCreatinine0.920.55-1.02 mg/dLEstimated GFR ( Moon>60>=60 mL/min/1.73m 2Estimated GFR (Non- Shantelle>60>=60 mL/min/1.73m 2BUN Creatinine Ratio32.5Ridhzqg4.48.5-10.1 mg/dLPerforming Lab:see noteML - [facility] LBMAGNESIUM Reviewed date:03/30/2025 12:02:02 PM Interpretation: Performing Lab: Notes/Report: [facility] ,Magnesium2.01.8-2.4 mg/dLPerforming Lab:see noteML - [facility] LB CBC AUTO DIFF Reviewed date:03/30/2025 12:02:02 PM Interpretation: Performing Lab: Notes/Report: [facility] ,White Blood Count10.14.0-11.0 10 3/uLRed Blood Count5.114.20-5.40 10 6/uL Duzryzysgi36.512.0-16.0 g/eZJhmmvymocy53.836.0-48.0 %Mean Corpuscular Ywwwph17.6 81.0-99.0 fLMean Corpuscular Fzsmwwyvjz49.326.7-34.0 pgMean Corpuscular HGB Conc 33.829.9-35.2 g/dLRed Cell Distribution Width12.811.0-15.0 %Platelet Lgqyf805 150-450 10 3/uLMean Platelet Volume9.19.5-13.5 fLNeutrophils Percent Auto55.6 43.0-75.0 %Lymphocytes Percent Auto33.620.5-60.0 %Monocytes Percent Auto8.41.7- 12.0 %Eosinophils Percent Auto1.20.9-7.0 %Basophils Percent Auto0.90.2-2.0 % Immature Granulocytes Pct Auto0.30.0-0.5 %Neutrophils Absolute Auto5.61.4-6.5 10 3/uLLymphocytes Absolute Auto3.41.2-3.8 10 3/uLMonocytes Absolute Auto0.90.3- 0.8 10 3/uLEosinophils Absolute Auto0.10.0-0.7 10 3/uLBasophils Absolute Auto0.1 0.0-0.1 10 3/uLImmature Granulocytes Abs Auto0.030.00-0.03 10 3/uLPerforming Lab:see noteML - [facility] LBBlood Culture 2 Reviewed date:01/05/2025 10:58:30 AM Interpretation: Performing Lab: Notes/Report: [facility] ,Blood Culture 2See Below For Report NG5D NO GROWTH AT 5 DAYS.^NO GROWTH AT 5 DAYS. Blood Culture 2 Performing Lab:see noteML - [facility] LBBlood Culture 1 Reviewed date:01/05/2025 10:58:30 AM Interpretation: Performing Lab: Notes/Report: [facility] ,Blood Culture 1See Below For Report NG5D NO GROWTH AT 5 DAYS.^NO GROWTH AT 5 DAYS. Blood Culture 1 Performing Lab:see noteML - [facility] LB Reason For Referral Diagnosis 1 Left foot pain (M79. 672) Referral Organization [facility] Referring Provider First Name Les Referring Provider Last Name Julia Referring Provider [facility] Referred Provider Aman Cobian Referred Provider Specialty Orthopedic S urgery Referral Priority Routine Diagnosis 1 Left foot pain (M79. 672) Referral Organization [facility] Referring Provider First Name Les Referring Provider Last Name Julia Referring Provider [facility] Referred Provider Joseph Cobian Referred Provider Specialty Podiatry Referral Priority Routine Diagnosis 1 Gallstones (K80.20) Referral Organization [facility] Referring Provider First Name Les Referring Provider Last Name Julia Referring Provider [facility] Referred Provider Anna Breaux Referred Provider Specialty General Surg [place] Referral Priority Routine Medications Medication SIG (Take, Route, Frequency, Duration) Notes Start Date End Date Status traMADol HCl 100 MG TAKE 1 TABLET BY GRUPO TH EVERY 8 HOURS Oral; Duration: 10 Days ActiveEliquis 5 MGas directed Orally twice a dayActiveOndansetron 4 MG1 tablet on the tongue and allow to dissolve Orally bfsMPQ165ActivePantoprazole Sodium 40 MG1 tablet Orally Once a day; Duration: 30 daysActiveMetoprolol Tartrate 25 MG1 tablet with food Orally Twice a day; Duration: 30 days04/01/2025 ActivehydroCHLOROthiazide 12.5 MG1 tablet in the morning Orally Once a day; Duration: 90 daysActiveLisinopril 40 MG1 tablet Orally Once a day; Duration: 90 daysActiveNurtec 75 MG1 tablet on the tongue and allow to dissolve OrallyPRN ActiveIbuprofen 800 MG1 tablet with food or milk as needed Orally every 8 hrs; Duration: 30 daysPRNActive Social History Tobacco Use: Social History Observation [...] in the past year?Less than monthly (1 point)Ulppab2YvfdyehqlxkzemKmzmctpsGEYEW-S (Standard) Question Answer Notes Did you have a drink containing alcohol in the p ast year? No Germjd2SmwepqztviaguwHycoexmb Problems Problem Type SNOMED Code ICD Code Onset Dates Problem Status W/U Status Risk Notes Problem Cerebrovascular disease (1686014 0) Other cerebrovascular disease (I67.89) ActiveconfirmedProblemCyst of pancreas (28156941)Cyst of pancreas (K86.2)Active confirmedProblemPilar cyst (567565851)Pilar cyst (L72.11)ActiveconfirmedProblem Sebaceous cyst (935847433)Sebaceous cyst (L72.3)ActiveconfirmedProblemMorbid obesity (519745601)Morbid obesity (E66.01)ActiveconfirmedProblemHypertension (34511129)Hypertension (I10)ActiveconfirmedProblemOsteoarthritis (195798458) Osteoarthritis (M19.90)ActiveconfirmedProblemGastroesophageal reflux disease (258063100)GERD (gastroesophageal reflux disease) (K21.9)ActiveconfirmedProblem Arthritis (0366810)Arthritis (M19.90)ActiveconfirmedProblemPrediabetes (813855785)Prediabetes (R73.09)ActiveconfirmedProblemMigraine (66126970)Migraine (G43.909)ActiveconfirmedProblemWell adult (384932636)Well adult (Z00.00)Active confirmedProblemLeg pain (19167724)Leg pain (M79.606)ActiveconfirmedProblem Tricuspid valve disorder (00722330)Moderate tricuspid regurgitation (I07.1) ActiveconfirmedProblemAtrial fibrillation (70727360)Atrial fibrillation with RVR (I48.91)ActiveconfirmedProblemDiverticulitis (31049388)Diverticulitis (K57.92) ActiveconfirmedProblemGallstones (985574669)Gallstones (K80.20)Activeconfirmed ProblemDegeneration of cervical intervertebral disc (42593637)Degenerative cervical disc (M50.30)ActiveconfirmedProblemSeasonal allergic rhinitis (288917261)Allergic rhinitis, seasonal (J30.2)ActiveconfirmedProblemHemiplegic migraine (70903309)Hemiplegic migraine (G43.409)ActiveconfirmedProblemCalcaneal spur (76794082)Heel spur, unspecified laterality (M77.30)ActiveconfirmedProblem Leukocytosis (457324865)Elevated WBCs (D72.829)ActiveconfirmedProblemEssential hypertension (75386453)BP (high blood pressure) (I10)ActiveconfirmedProblem Disease caused by Severe acute respiratory syndrome coronavirus 2 (disorder) (988013839)COVID-19 virus infection (U07.1)Activeconfirmed Vital Signs Temperature 99.7 degrees Fahrenheit 09/13/2024 Blood pressure svkkjvjoi86 mm Hg04/01/20259292Plkcah35 in04/01/2025lood pressure mm Hg04/01/20251528Evljaz337.8 lbs106/01/2024BMI34.63 kg/m204/01/2025 Procedures Procedure Date Ordered Date Performed Result Body Sit e CARDIO Echocardiogram 04/01/2025 N/A Encounters Encounter Location Date Provider Diagnosis [address] [address] 09/13/2024 Les Hoy Diverticulitis K57.[address] [address] 11/20/2024 Les Hoy Epigastric abdominal pain R10.13 and Left upper quadrant abdominal pain R10.[address] [address] 01/07/2025 Les Hoy Diverticulitis K57.9 2 ; Hypertension I10 and GERD (gastroesophageal reflux disease) K21.[address] [address] 04/01/2025 Les Hoy Hypertension I10 and Atrial fibrillation with RVR I48.91 [facility] [address] [place] [address] 09/27/2024 Les Hoy Left foot pain M79.6 [facility] [address] [place] [facility] [place] [address] 10/02/2024 Les Hoy Left foot pain M79.6 [facility] [address] [place] [facility] [place] [address] 10/19/2024 Les Hoy Left foot pain M79.6 [address] [facility] [address] [place] [facility] [place] [address] 10/21/2024 Les Hoy Left foot pain M79.6 [address] [facility] [address] [place] [facility] [place] [address] 11/21/2024 Les Hoy [facility] [place] [facility] [place] [address] 11/25/2024Doug HoyGallstones K80.20[facility] [place] [facility] [place] [address]/Doug [facility] [address] [place] [facility] [place] [address]/Doug HoyUTI (urinary tract infection) N39.0[facility] [place] [facility] [place] [address]/Doug HoyUTI (urinary tract infection) N39.0[facility] [place] [facility] [place] [address]/03/2025 Els HoyUTI (urinary tract infection) N39.0[facility] [place] [facility] [place] [address]/Doug HoyHypertension I10 and Dysuria R30.0[facility] [place] [facility] [place] [address]/Doug [facility] [place] [address]/Doug Julia Assessments Encounter Date Diagnosis (ICD Code) Assessment Notes Treatment Notes Treatment Clinical Notes Section Notes 09/13/2024 Diverticulitis (ICD-10 - K57.92) 11/20/2024Epigastric abdominal pain (ICD-10 - R10.13)11/20/2024Left upper quadrant abdominal pain (ICD-10 - R10.12)01/07/2025Diverticulitis (ICD-10 - K57.92)01/07/2025Hypertension (ICD-10 - I10)04/01/2025Hypertension (ICD-10 - I10)04/01/2025trial fibrillation with RVR (ICD-10 - I48.91)09/27/2024Le foot pain (ICD-10 - M79.672)10/02/2024Left foot pain (ICD-10 - M79.672)10/19/2024Left foot pain (ICD-10 - M79.672)10/21/2024Left foot pain (ICD-10 - M79.672) 11/25/2024Gallstones (ICD-10 - K80.20)12/03/2024UTI (urinary tract infection) (ICD-10 - N39.0)12/05/2024UTI (urinary tract infection) (ICD-10 - N39.0) 12/23/2024UTI (urinary tract infection) (ICD-10 - N39.0)12/27/2024Hypertension (ICD-10 - I10)12/27/2024Dysuria (ICD-10 - R30.0)01/07/2025GERD (gastroesophageal reflux disease) (ICD-10 - K21.9)09/13/2024OtherGet plenty of rest. Stay hydrated by sucking on ice chips or taking small sips of water. You can also try drinking clear soda, clear broths or noncaffeinated sports drinks. Stop eating solid foods for a few hours to let your stomach settle. East back into eating by eating bland, zmlr-hm-rlrmmr foods like crackers, toast, gelatin, bananas, rice and chicken. Try to avoid foods/substances including dairy products, caffeine, alcohol, nicotine and fatty or highly seasoned foods. Medications such as i buprofen or tylenol can make your stomach more upset, so use sparingly if at all. Also avoid vgsi-szs-ofwtrmy anti-diarrheal medications because it can make it harder for your body to eliminate the virus. Plan Of Treatment Pending Test Test Name Order Date UA (URINALYSIS, COMPLETE) 12/03/2024 UA (URINALYSIS, COMPLETE) 12/05/2024 UA (URINALYSIS, COMPLETE) 12/23/2024 UA (URINALYSIS, COMPLETE) 12/27/2024 UA (URINALYSIS, MICRO ONLY) 12/27/2024 CARDIO Echocardiogram 04/01/2025 Urine Culture 12/03/2024 Treadmill Stress Test with Nuclear Imagi ng 04/01/2025 XR Foot 2 Views Left 09/27/2024 AMYLASE 11/20/2024 CBC AUTO DIFF 11/20/2024 CULTURE URINE 12/05/2024 CULTURE URINE 12/27/2024 CULTURE URINE 12/23/2024 LIPASE 11/20/2024 PROF 14(COMP METB) 11/20/2024 URINE MICROSCOPIC ONLY 12/03/2024 URINE MICROSCOPIC ONLY 12/23/2024 CT ABD and PELV W CON 01/07/2025 US ABD 11/20/2024 US KIDNEYS BLADDER 12/27/2024 CT ANKLE LEFT WO CONTRAST 10/02/2024 CT FOOT LEFT WO CONTRAST 10/02/2024 Insurance Providers Payer Name Payer Address Payer Phone Subscriber Number Group Number Insured Name Patient Relationship to Insured Coverage Start Date Coverage End Date [employer] PPO PLUS LOCAL PLAN [address] [place] [phone] [id number] Devon Norris - patient is the insured Medications Administered Medication Instructions Date of Administration Dosage Notes Promethazine 25mg 5 mg Medical (General) History Medical History History [...] History Surgery Date(Month/Year) breast reduction Bilat knee surgeryTumor removal from Collar boneHospitalization History Reason Date(Month/Year[place] [facility] [place] Pain 12/2022 Diverticulitis 12/2024 Diverticulitis 02/05
--- OUTSIDE RECORDS SUMMARY | 2025-04-17 10:05 | XMS_ITS | CCD ---
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 Name Role Phone Rafael Salamanca Unavailable Unavailable Unavailable Julia Ayon Unavailable MD Rafael Salamanca Primary Care Provider [phone] MD Anneliese Hoyt Attending Provider MD Anneliese Hoyt Referring Provider DO Renny Walton Attending Provider Sharla Strange Unavailable MD Rafael Salamanca Primary Care Provider [phone] MARIA T Strange Attending Provider MD Rafael Salamanca Attending Provider [phone] CHEIKH ., DR HALL Consulting Unavailable HOY ., DR HALL Attending Unavailable HOY ., DR HALL Admitting Unavailable HOY ., DR HALL Primary Care Unavailable HOY ., DR HALL Primary Care Unavailable HOY ., DR HALL Consulting Unavailable HOY ., DR HALL Attending Unavailable CHEIKH ., DR HALL Admitting Unavailable MD Rafael Salamanca Primary Care Provider [phone] DO Renny Walton Attending Provider [phone] Rafael Salamanca Primary Care Unavail able MD Rafael Salamanca Primary Care Provider [phone] YVROSE Kent Attending Provider MD Erika Escobedo Emergency Provider MD Nabil Baker Admit Provider MD Nabil Baker Attending Provider MD Anneliese Hoyt Other Provider ANNELIESE HOYT Referring Unavailable RAFAEL SALAMANCA Primary Care Unavailable ANNELIESE HOYT Referring Unavailable RAFAEL SALAMANCA Primary Care Unavailable Rafael Salamanca MD Primary Care Provider [phone] MD Rafael Salamanca Primary Care Provider [facility], DO Renny Finch Attending Provider ANNELIESE HOYT Attending Unavailable ANNELIESE HOYT Referring Unavailable RAFAEL SALAMANCA Primary Care Unavailable Rafael Salamanca MD Primary Care Provider Rafael Salamanca MD Attending Provider Unavailable [facility] Salamanca MD Primary Care Provider Rafael Salamanca MD Primary Care Provider Isabel Kent APRN Attending Provider JOSEPH MONTAGUE Attending Unavailable RAFAEL SALAMANCA Referring Unavailable JOSEPH MONTAGUE Attending Unavailable Rafael Salamanca Primary Care Physician Anthony IVERSON Attending Unavailable [facility] Renny JOHNSON Attending Provider John Benson MD Attending Provider Rafael Salamanca MD Primary Care Provider Rafael Salamanca MD Attending Provider Stella Palmer DO Attending Provider Rafael Salamanca MD Primary Care Provider Rafael Salamanca MD Attending Provider Joseph [facility] Attending Provider Stella Laguna DO Other Provider John Benson II Attending Unavailabl e John [...] Rafael M Primary Care Unavailable Kun - [facility], Renny P Attending [facility]available [facility] Admitting Unavailable Hoy, Rafael M Primary Care Unavailable Allergies Allergy ClassificationReported Allergen(s)Allergy TypeDate of OnsetReaction(s) FacilityAnti-Epileptic Agents (1 source)topiramateDrug Xxtpvjz54-81-8690SfsigjwwBlanchard Valley Health SystemCephalosporins (antibiotic) (1 source)CefuroximeDrug Noupttz47-44-1469AnuzfDtzqfbatfLouis Stokes [facility] Center Dihydrofolate Reductase Inhibitors (antibiotic) (1 source)TrimethoprimDrug Xlwyiyt07-32-9698XpsqzPdgivdvboLouis Stokes [facility] Medical CenterDoxycycline (1 source)DoxycyclineDrug Zcdffjj65-04-4019LbotbGwjimzwuzLouis Stokes [facility] Medical CenterMacrolides (antibiotic) (1 source)AzithromycinDrug Gvldhqf20-98-2484UnhffTfknimenaLouis Stokes [facility] VA Medical CenterOpioid Agonists (1 source)MorphineDrug Wpzohcv28-28-2834RtoydKjbtnwvswLouis Stokes [facility] Center Penicillins (antibiotic) (2 sources)AmoxicillinDrug Rhasraz86-52-9616VrxuaPlxosgkabLouis Stokes [facility] Medical CenterQuinolones (antibiotic) (1 source)levoFLOXacinDrug Pwyfnyq41-31-9341QxvsiCmsdgqqimOhioHealth Pickerington Methodist Hospitalulfonamides (antibiotic) (1 source)SulfamethoxazoleDrug Maezdfx60-14-6536QpijnRhxhddncbLouis Stokes [facility] Center (15 sources)Cefuroxime; Translations: [Ceftin]Drug AllergyWeal (disorder)[facility] (20 sources)Penicillins; Translations: [Penicillins]Allergy to drug (finding) 42-04-6025Mguc, Unknown Reaction, [facility] (3 sources)Morphine Derivatives; Translations: [Morphine Derivatives]Allergy to drug (finding)[place] [address] Work Phone: (20 sources)AmoxicillinDrug Dgvmrsn39-64-1612OjsljutProvidence Hospital (20 sources)Doxycycline; Translations: [doxycycline]Drug Ktaltgu25-80-9929Apmu (disorder)[facility] (16 sources)Erythromycin; Translations: [ERYTHROMYCIN]Drug Nvrehtm13-20-5892 Unknown, Weal (disorder)[facility] Repository (10 sources)levoFLOXacinDrug AllergyUnknowSt. Louis VA Medical Center [facility] Other (20 sources)Morphine; Translations: [MORPHINE]Drug Mjsacfs79-71-2405Uovvt, Itching, RashAdena Fayette Medical Center (11 sources)Sulfamethoxazole / Trimethoprim; Translations: [sulfamethoxazole-trimethoprim]Drug AllergyEruption of skin (disorder)[facility] (20 sources)FLU VacinePropensity to adverse nnfaljgkx76-11-0269wosttChildren's Hospital of [facility] (20 sources)AzithromycinDrug Vdpzxtr99-20-9336ZjmqjScwohxggdLouis [facility] (20 sources)CefuroximeDrug Jixfkls69-50-5684CveuhFcurpardlLouis [facility] (20 sources)SulfamethoxazoleDrug Mwniqki59-32-3539XdkybQyhpjqpczLouis [facility] (20 sources)TrimethoprimDrug Djshjyg54-65-9816HjldqFgivkrraqLouis [facility] (1 source)AmoxicillinDrug AllergyThe [facility] (1 source)CefuroximeDrug Jjuljoc71-60-0930Pnu [facility] (2 sources)Codeine; Translations: [codeine]Drug Vtvgrsv82-30-1641PtnPomerene Hospital Rep[facility] (2 sources)Doxycycline; Translations: [Vibramycin]Drug Thxqeoy66-75-3526XlaPomerene Hospital Repository (20 sources)ErythromycinDrug Iijfxni30-82-1591TuifLsl [facility] Repository (1 source)MorphineDrug Oiihoen42-93-1899TmaPomerene Hospital Repository (2 sources)traMADol; Translations: [Ultram]Drug Eeluisc97-46-9012MlgPomerene Hospital Repository (1 source)MorphineDrug AllergyUnknowSt. Louis VA Medical Center [employer] Other (20 sources)topiramate; Translations: [TOPIRAMATE]Drug Mnbvwty24-59-1839 Diarrhea, Multiple symptoms (finding)[facility] Repository (4 sources)Cefuroxime; Translations: [CEFUROXIME AXETIL]Drug Gxakazr19-61-4803 [facility] Repository (19 sources)levoFLOXacin; Translations: [LEVOFLOXACIN]Drug Mdsiuel91-44-5323 [facility] RepositoryComment on above:Pt indicates she can take this as of 12/20/2023. (4 sources)OTHER; Translations: [OTHER]Propensity to adverse reactions (disorder)89-29-8425Sirfe, Itching, FeverUniversity [facility]als [facility] Repository (1 source)ALLERGIES NOT ON FILE; Translations: [ALLERGIES NOT ON FILE]Propensity to adverse reactions (disorder)[facility] Repository (2 sources)PenicillinsDrug Jziimgd92-26-5641ZlsbNxpxpubyweSouthern [facility] Work Phone: (1 source)Codeine; Translations: [codeine]Drug AllergyVomiting (disorder)[facility] (2 sources)influenza A virus A/[place]/GT7040/2015 (H1N1) antigen / influenza A virus A/[place]/NI5499 (H3N2) antigen / influenza B virus B/[place] [employer] antigen / influenza B virus B/ antigen; Translations: [influenza virus vaccine]Drug AllergyWeal (disorder)[facility] (2 sources)Penicillin; Translations: [penicillin]Drug AllergyWeal (disorder) [facility] Ifeanyi (1 source)traMADol; Translations: [tramadol]Drug AllergyHivesOhiohealth Grant Medical Center (1 source)Sulfamethoxazole / Trimethoprim; Translations: [Bactrim]Drug Allergy [facility] Repository (1 source)topiramate; Translations: [Topamax]Drug AllergyMartin Memorial Hospital Repository Medications Current Medications MedicationDrug Class(es)DatesSig (Normalized)Sig (Original)aspirin 81 mg delayed release oral tablet (20 sources)Platelet Aggregation Inhibitor, Nonsteroidal Anti-inflammatory Drug Start: 15-66-2400eafd 1 tablet by mouth once dailyaspirin 81 mg Oral EC Tab 81 mg = 1 tab(s), Oral, Daily, Refills(s) 0 Start Date: 12/03/24 Status: Ordered Repeat number: 1Start: 11-28-6364tsei 1 tablet by mouth once dailyAspirin 81 [...] oral capsule (2 sources)Tetracycline-class DrugStart: 04-13-2022 End: 24-54-9716oyzd 1 capsule by mouth twice dailydoxycycline (Monodox) 100 mg capsule Take 1 capsule (100 mg) by mouth 2 times a day. 04/13/2022 03/22/2024 Discontinued (Therapy completed)hydroCHLOROthiazide 12.5 mg oral tablet (20 sources)Thiazide DiureticStart: 84-51-3042vcux 1 tablet by mouth once daily Hydrochlorothiazide 12.5 mg tablet Active 12.5 MG PO Daily September 06, 2023 12:00am Complies with drug therapyStart: 01-03-2023 End: 90-72-4192vwmm 1 tablet by mouth once dailyHydrochlorothiazide 12.5 mg tablet Discontinued 12.5 MG PO Daily January 03, 2023 12:00am 2023 2:57pmStart: 72-58-3357upuj 1 capsule by mouth once daily hydroCHLOROthiazide 12.5 MG Oral Capsule TAKE 1 CAPSULE ONCE DAILY. Quantity: 90 Refills: 3 Ordered: 22-Oct-2021 Anneliese Hoyt MD Start : 22-Oct-2021 Active new starthyoscyamine sulfate 0.125 mg oral tablet (20 sources)Start: 47-05-0228eoqv 1 tablet by mouth every six hours as needed for painLevsin 0.125 mg SL Tab 0.125 mg = 1 tab(s), Oral, q6hr, PRN pain, Refills(s) 0 Start Date: 11/27/24 Status: Ordered Repeat number: 1Start: 07-07-2023 End: 24-23-8287sgja 1 tablet by mouth every six hours [...] mg oral tablet (20 sources)Nonsteroidal Anti-inflammatory DrugStart: 29-29-9053fnoy 1 tablet by mouth every eight hours as needed for painIbuprofen 800 mg tablet Active 800 MG PO Every 8 hours as needed for fever or pain July 07, 2023 1:00am Complies with drug therapyStart: 07-06-2021 End: 23-79-8188Pmvufzpnp 600 mg tablet Discontinued 800 MG PO Q8H as needed for pain July 06, 2021 9:31am July 07, 2023 2:57pmStart: 07-06-2021 End: 49-74-2269whyp 800 mg by mouth every eight hoursIbuprofen Discontinued 800 MG PO Q8H July 06, 2021 9:31am July 07, 2023 2:57pmStart: 10-23-2020 End: 98-75-2425xfrj 1 tablet by mouth every eight hours as needed for pain Ibuprofen 600 mg tablet Discontinued 600 MG PO Q8H as needed for pain October 23, 2020 12:00am July 06, 2021 9:31amStart: 05-09-2018 End: 22-12-4478Odcewjail (Motrin Ib) 200 mg Tablet Discontinued 800 MG PO Q8H as needed for Migraine Headache May 09, 2018 1:00am May 10, 2018 1:14pmStart: 21-69-9654gamu 1 tablet by mouth every six hours as needed for pain Motrin 800 mg Tab Oral, q6hr, PRN Pain Start Date: 05/01/13 Status: Ordered Repeat number: 1Motrin As needed ActivemethylPREDNISolone (5 sources)CorticosteroidStart: 22-99-7792saktccHSHAWLAmxryh (Medrol Dospak) 4 MG tablets Indications: DJD (degenerative joint disease), ankle and foot, left Follow schedule on MEDROL PACK package instructions to be used as directed 21 tablet 11/06/2024 Activeondansetron 4 mg disintegrating oral tablet (20 sources)Serotonin-3 Receptor AntagonistStart: 65-69-0282desw 1 tablet by mouth four times dailyondansetron 4 mg Dis Tab 4 mg = 1 tab(s), Oral, QID, Refills(s) 0 Start Date: 11/27/24 Status: Ordered Repeat number: 1Start: 38-10-3340lpyx 1 tablet by mouth once daily as needed for nausea and vomiting Ondansetron 4 mg tablet,disintegrating Active 4 MG PO Daily as needed for nausea and vomiting February 14, 2024 12:00am Complies with drug therapyStart: 09-27-2021 End: 90-23-7018tswg 1 tablet by mouth every eight hours as needed for nausea and vomitingOndansetron 4 mg tablet,disintegrating Discontinued 4 MG PO Q8H as needed for nausea and vomiting 02 13September 27, 2021 12:00am January 03, 2023 10:55amStart: 04-04-2020 End: 03-91-5990hxbp 1 tablet by mouth every eight hours [...] release oral tablet (20 sources)Proton Pump InhibitorStart: 27-10-9740gbgf 1 tablet by mouth once dailyPantoprazole (Protonix) 40 mg tablet,delayed release (DR/EC) Active 40 MG PO Daily December 192:27pm Complies with drug therapyStart: 05-10-2018 End: 15-93-0625lpns 1 tablet by mouth twice dailyPantoprazole (Protonix) 40 mg tablet,delayed release (DR/EC) Discontinued 40 MG PO Twice daily July 06, 2021 9:31am December 20, 2023 12:29pmStart: 02-14-2017 End: 25-94-7318uent 1 tablet by mouth once daily in the morningPantoprazole (Protonix) 40 mg Tablet,Delayed Release (Dr/Ec) Discontinued 40 MG PO Every morning February 14, 2017 12:00am May 10, 2018 1:15pm End: 69-50-8656jfjq 1 tablet by mouth once dailypantoprazole (ProtoNix) 20 mg EC tablet Take 1 tablet (20 mg) by mouth once daily. 03/22/2024 Discontinued (Therapy completed)phentermine hydrochloride 37.5 mg oral tablet (2 sources)Sympathomimetic Amine AnorecticStart: 10-12-2022 End: 31-39-7568bbal 1 tablet by mouth once daily before mealtimephentermine (Adipex-P) 37.5 mg tablet Take 1 tablet (37.5 mg) by mouth once daily in the morning. Take before meals. 10/12/2022 03/22/2024 Discontinued (Therapy completed)24 hr phentermine 7.5 mg / topiramate 46 mg extended release oral capsule (1 source)Sympathomimetic Amine AnorecticStart: 39-83-8681gfwq 1 capsule by mouth every twenty-four hoursQsymia 7.5-46 MG 1 capsule Orally Once a day for 30 days Jul, Activerimegepant 75 mg disintegrating oral tablet (20 sources)Start: 79-75-2680entr 1 tablet under the tongue onceNurtec ODT 75 mg oral tablet, disintegrating 75 mg = 1 tab(s), SubLingual, Once, Refills(s) 0 StartDate: 11/27/24 Status: Ordered Repeat number: 1Start: 72-27-4966fcir 1 tablet by mouth once daily as needed for headacheRimegepant (Nurtec Odt) 75 mg tablet,disintegrating Active 75 MG PO Daily as needed for Migraine Headache July 06, 2021 1:00am Complies with drug therapy Completed/Discontinued Medications MedicationDrug Class(es)DatesSig (Normalized)Sig (Original)acetaminophen 500 mg oral capsule (20 sources)Start: 07-07-2023 End: 12-86-5245ywxr 1 capsule by mouth every six hours as neededAcetaminophen 500 mg capsule Discontinued 500 MG PO Every 6 hours as needed July 07, 2023 1:00am September 06, 2023 7:35amtake 1 capsule by mouth every six hours Acetaminophen 500 MG 1 capsule as needed Orally every 6 hrs Activeacetaminophen 325 mg / HYDROcodone bitartrate 10 mg oral tablet (20 sources)Opioid AgonistStart: 09-27-2021 End: 46-82-2873hcaa 1 tablet by mouth three times daily as needed for pain Hydrocodone-Acetaminophen 10-325 mg tablet Discontinued 1 TAB PO Three times daily as needed for pain 10 5 September 27, 2021 January 03, 2023 10:55amStart: 07-14-2021 End: 30-00-5792xqfn 1 tablet by mouth every six hours as needed for pain Hydrocodone-Acetaminophen 5-325 mg tablet Discontinued 1 TAB PO Q6H as needed for pain 20 July 14, 2021 January 03, 2023 10:55amacetaminophen 325 mg / oxyCODONE hydrochloride 5 mg oral tablet (20 sources)Opioid AgonistStart: 10-23-2020 End: 83-38-0715sotx 1 tablet by mouth every six hours as needed for pain Oxycodone-Acetaminophen (Percocet) 5-325 mg tablet Discontinued 1 - 2 TAB PO Every 6 hours as needed for pain 20 3 October 23, 2020 July 06, 2021 9:31am amoxicillin 875 mg / clavulanate 125 mg oral tablet (20 sources)Penicillin-class AntibacterialStart: 10-23-2020 End: 76-33-2217xbuw 1 tablet by mouth twice dailyAmoxicillin-Pot Clavulanate (Augmentin) 875-125 mg tablet Discontinued 1 TAB PO Twice daily 03 03October 23, 2020 12:00am July 06, 2021 9:30amStart: 10-28-2017 End: 62-37-9642blxx 1 tablet by mouth twice dailyAmoxicillin-Pot Clavulanate (Augmentin) 875-125 mg tablet Discontinued 1 TAB PO Twice daily 2017 12:00am May 09, 2018 2:22pmazithromycin 250 mg oral tablet (20 sources)Macrolide AntimicrobialStart: 02-14-2017 End: 20-03-7374riiy 1 tablet by mouth once dailyAzithromycin (Zithromax Z-Hesham) 250 mg Tablet Discontinued 250 MG PO Daily February 14, 2017 12:00amOctober 25, 2017 11:39amciprofloxacin 500 mg oral tablet (20 sources)Quinolone AntimicrobialStart: 01-06-2025 End: 99-90-4861ciqa 1 tablet by mouth once dailyCiprofloxacin Hcl 500 mg tablet Discontinued 500 MG PO Daily January 06, 2025 12:00am January 15, 2025 9:08amStart: 09-27-2021 End: 46-23-3380csfr 1 tablet by mouth every two hoursCiprofloxacin [...] oral tablet (20 sources)Muscle RelaxantStart: 06-04-2020 End: 18-49-4703yzon 1 tablet by mouth three times daily as needed for muscle spasmsCyclobenzaprine 10 mg tablet Discontinued 10 MG PO Three times daily as needed for muscle spasm June 04, 2020 1:00am September 18, 2020 7:08am24 hr desvenlafaxine succinate 50 mg extended release oral tablet (20 sources)Serotonin and Norepinephrine Reuptake InhibitorStart: 02-14-2017 End: 61-08-7463fbuw 1 tablet by mouth once daily, then take 1 tablet by mouth every twenty-four hoursDesvenlafaxine Succinate (Pristiq) 50 mg Tablet Extended Release 24 Hr Discontinued 50 MG PO Daily February 14, 2017 12:00am October 25, 2017 11:40amdocusate sodium 50 mg / sennosides, senior living 8.6 mg oral tablet (20 sources)Start: 10-23-2020 End: 51-39-0245inny 2 tablets by mouth once daily at bedtime as needed for constipationSennosides-Docusate Sodium (Senna Plus) 8.6-50 mg tablet Discontinued 2 TAB PO Daily at bedtime as needed for constipation October 23, 2020 12:00am July 06, 2021 9:31am12 hr guaiFENesin 600 mg extended release oral tablet (20 sources)Start: 02-15-2017 End: 94-58-2457rvpr 2 tablets by mouth twice daily, then take 1 tablet by mouth every twelve hoursGuaifenesin (Mucinex) 600 mg Tablet Extended Release 12hr Discontinued 1200 MG PO Twice daily February 15, 2017 12:00am October 25, 2017 11:40amlevoFLOXacin 500 mg oral tablet (18 sources)Quinolone AntimicrobialStart: 10-27-2023 End: 59-98-1997keex 1 tablet by mouth once dailyLevofloxacin 500 mg tablet Discontinued 500 MG PO Daily October 27, 2023 12:00am December 20, 2023 12:28pm3 ml liraglutide 6 mg/ml pen injector (20 sources)GLP-1 Receptor AgonistStart: 07-12-2023 End: 99-74-6861Mfcwqofforc (Victoza 3-Hesham) 0.6 mg/0.1 mL (18 mg/3 mL) pen injector Discontinued 3 MG SUBCUT Daily September 06, 2023 8:00am October 27, 2023 11:28am Inject 1.2mg +1.8mg daily to equal 3mg totalStart: 07-07-2023 End: 25-43-9030Cspxudpjjxe (Victoza 3-Hesham) 0.6 mg/0.1 mL (18 mg/3 mL) pen injector Discontinued 3 MG SUBCUT Daily July 07, 2023 1:00am July 12, 2023 9:43amStart: 01-18-2023 End: 65-52-6777Avkmnkh 3-Hesham 0.6 mg/0.1 mL (18 mg/3 mL) injection Inject 0.1 mL (0.6 mg) under the skin. 01/18/2023 03/22/2024 Discontinued (Therapy completed) Start: 61-39-0049Lavvgqb 18 MG/3ML 3mg Subcutaneous Daily for 30 days 2.4mg (1.8 + 0.6mg) once daily for 1 week, then 3mg (1.8 +1.2mg) thereafter Jan, ActiveStart: 06-12-6333fvvuva 1.8 mg by subcutaneous injection once dailyVictoza 18 MG/3ML 1.8mg Subcutaneous Daily for 30 days Jan, Activeinject 3 mg by subcutaneous injection once dailyVictoza 18 MG/3ML 3mg (1.2 + 1.8) Subcutaneous Daily for 30 days BMI 34.8 Prediabetes R73.09 Activelisinopril 20 mg oral tablet (20 sources)Angiotensin Converting Enzyme InhibitorStart: 10-23-2020 End: 22-87-9343mksj 2 tablets by mouth once dailyLisinopril 20 mg tablet Discontinued 40 MG PO Daily October 23, 2020 3:30am July 07, 2023 2:56pm Start: 10-23-2020 End: 53-49-0504gifu 40 mg by mouth once dailyLisinopril Discontinued 40 MG PO Daily October 23, 2020 3:30am July 07, 2023 2:56pmStart: 10-28-2017 End: 11-86-9786tafe 1 tablet by mouth once dailyLisinopril 20 mg Tablet Discontinued 20 MG PO Daily 0 October 28, 2017 2:34pm October 23, 2020 3:30am Start: 02-14-2017 End: 55-43-6207ktso 2 tablets by mouth once dailyLisinopril 20 mg Tablet Discontinued 40 MG PO Daily 0 February 15, 2017 12:00am October 28, 2017 2:34pm Start: 02-14-2017 End: 67-79-9397dfgg 40 mg by mouth once dailyLisinopril Discontinued 40 MG PO Daily 0 February 15, 2017 12:00am October 28, 2017 2:34pmStart: 00-97-9076qede 1 tablet by mouth once dailyLisinopril 40 mg tablet Active 40 MG PO Daily July 07, 2023 1:00am Complies with drug therapyloratadine 10 mg oral tablet (20 sources)Start: 02-15-2017 End: 37-59-6202ymgd 1 tablet by mouth once daily in the morningLoratadine 10 mg Tablet Discontinued 10 MG PO Every morning 0 February 15, 2017 12:00am October 25, 2017 11:40ammetroNIDAZOLE 500 mg oral tablet (20 sources)Nitroimidazole AntimicrobialStart: 01-06-2025 End: 97-07-7819qsaz 1 tablet by mouth three times dailyMetronidazole 500 mg tablet Discontinued 500 MG PO Three times daily January 06, 2025 12:00am Zeenat [facility] 2024 9:08amStart: 09-25-2020 End: 89-63-7440wvcp 1 tablet by mouth twice dailyMetronidazole 500 mg tablet Discontinued 500 MG PO Twice daily September 27, 2021 12:00am July 07, 2023 2:55pmphenazopyridine hydrochloride 200 mg oral tablet (18 sources)Start: 10-27-2023 End: 10-42-8785cpfq 1 tablet by mouth once dailyPhenazopyridine 200 mg tablet Discontinued 200 MG PO Daily October 27, 2023 12:00am December 192:28pm Semaglutide (20 sources)Start: 02-14-2024 End: 39-00-0869raodce 1 mg by subcutaneous injection every weekSemaglutide (Ozempic) 1 mg/dose (4 mg/3 mL) pen injector Discontinued 1 MG SUBCUT every week February 14, 2024 8:33am June 12, 2024 10:02amStart: 00-06-0889bxnlyc 1 mg by subcutaneous injection every weekSemaglutide (Ozempic) 1 mg/dose (4 mg/3 mL) pen injector Active 1 MG SUBCUT every week February 14, 2024 7:33amStart: 12-20-2023 End: 11-36-6231eebryx 1 mg by subcutaneous injection every weekSemaglutide (Ozempic) 1 mg/dose (4 mg/3 mL) pen injector Discontinued 1 MG SUBCUT every week December 20, 2023 4:56pm February 14, 2024 8:33amStart: 12-20-2023 End: 95-57-6278gjtqvk 1 mg by subcutaneous injection every weekSemaglutide (Ozempic) 1 mg/dose (4 mg/3 mL) pen injector Discontinued 1 MG SUBCUT every week December 20, 2023 3:56pm February 14, 2024 7:33amStart: 52-15-6356wdynnb 1 mg by subcutaneous injection every weekSemaglutide (Ozempic) 1 mg/dose (4 mg/3 mL) pen injector Active 1 MG SUBCUT every week December 20, 2023 4:56pmStart: 10-27-2023 End: 40-25-4923auquce 0.5 mg by subcutaneous injection every week, then inject 1 mg by subcutaneous injection every weekSemaglutide (Ozempic) 1 mg/dose (4 mg/3 mL) pen injector Discontinued 1 MG SUBCUT every week 2023 11:00pm December 20, 2023 3:57pm 0.5mg (36 clicks) weekly for 4 weeks then 1mg weekly thereafterStart: 10-27-2023 End: 60-26-8440yexted 0.5 mg by subcutaneous injection every week, then inject 1 mg by subcutaneous injection every weekSemaglutide (Ozempic) 1 mg/dose (4 mg/3 mL) pen injector Discontinued 1 MG SUBCUT every week 2023 12:00am December 20, 2023 4:57pm 0.5mg (36 clicks) weekly for 4 weeks then 1mg weekly thereafterStart: 70-28-6448zqrqyv 0.5 mg by subcutaneous injection every week, then inject 1 mg by subcutaneous injection every weekSemaglutide (Ozempic) 1 mg/dose (4 mg/3 mL) pen injector Active 1 MG SUBCUT every week 9 October 12:00am 0.5mg (36 clicks) weekly for 4 weeks then 1mg weekly thereafter Semaglutide (12 sources)Start: 09-13-2024 End: 25-13-8724Wgzqlzilrlb (Ozempic) 0.25 mg or 0.5 mg (2 mg/3 mL) pen injector Discontinued 0.5 MG SUBCUT every week 3 September 13, 2024 12:00am January 06, 2025 2:11pm 0.25mg once weekly for weeks 1-4Start: 75-23-1150Oevjh: 09-13-2024 Semaglutide (Ozempic) 0.25 mg or 0.5 mg (2 mg/3 mL) pen injector Active 0.5 MG SUBCUT every week 3 September 13, 2024 12:00am 0.25mg once weekly for weeks 1-4 Semaglutide (20 sources)Start: 09-11-2024 End: 23-64-8131bloans 2 mg by subcutaneous injection every weekSemaglutide 2 mg/dose (8 mg/3 mL) pen injector Discontinued 2 MG SUBCUT every week 9 September 11, 2024 9:05am September 13, 2024 8:51amStart: 06-12-2024 End: 36-87-0579Phkzkpsftnm 2 mg/dose (8 mg/3 mL) pen injector Discontinued 2 MG SUBCUT every week 9 June 12, 2024 10:00am September 11, 2024 9:05am 1mg (37clicks) for at least 4 weeks, titrate to 2mg as discussedSemaglutide 2 mg/dose (8 mg/3 mL) pen injector (3 sources)Start: 09-11-2024 End: 44-63-8198vedtyf 2 mg by subcutaneous injection every weekSemaglutide 2 mg/dose (8 mg/3 mL) pen injector Discontinued 2 MG SUBCUT every week September 11, 2024 9:05am September 13, 2024 8:51amStart: 06-12-2024 End: 13-07-4577Jnzrsmmdfuy 2 mg/dose (8 mg/3 mL) pen injector [...] mg oral tablet (20 sources)Start: 12-16-2022 End: 43-74-4023ilot 1 tablet by mouth once dailyTopiramate 50 mg tablet Discontinued 50 MG PO Daily January 03, 2023 12:00am July 07, 2023 2:55pm Start: 73-27-1176Rnkaugdrjt 50 MG Half tablet once daily for 7 days then increase to one tablet daily Orally Once a day for 30 days Dec, Not-Taking/PRNStart: 02-14-2017 End: 55-12-0403dslq 1 tablet by mouth once dailyTopiramate (Topamax) 200 mg Tablet Discontinued 200 MG PO Daily February 14, 2017 12:00am February 14, 2019 11:13amtraMADol hydrochloride 100 mg oral tablet (3 sources)Opioid AgonistStart: 01-06-2025 End: 39-44-9651Ujtkskxi 100 mg tablet Discontinued 100 MG PO January 06, 2025 12:00am January 15, 2025 9:08amtriamcinolone acetonide 40 mg/ml injectable suspension (9 sources)CorticosteroidStart: 79-42-8094Ibncobz-40 Jul, 40 mg Problems Active Problems Problem ClassificationProblemDateDocumented DateEpisodic/ChronicAbdominal pain (14 sources)Left sided abdominal pain; Translations: [Unspecified abdominal pain]Onset: 72-08-0121JtvpaxzmHyhab cerebrovascular disease (20 sources)Cerebrovascular accident; Translations: [Cerebral infarction, unspecified]ChronicAdministrative/social admission (20 sources)Persons encountering health services in other specified circumstances; Translations: [Follow-up status]Onset: 03-24-2023 Resolved: 65-11-8923UeegequiTglvxzw disorders (20 sources)Anxiety; Translations: [Anxiety disorder, unspecified]02-15-2017 ChronicCalculus of urinary tract (20 sources)Kidney stone; Translations: [Calculus of kidney]EpisodicDiabetes mellitus without complication (20 sources)Impaired fasting glycemia; Translations: [Impaired fasting glucose] EpisodicDiverticulosis and diverticulitis (20 sources)Diverticular disease; Translations: [Diverticulosis of colon (without mention of hemorrhage)]Onset: 747033-82-2728NxvqlxbJ Codes: Adverse effects of medical drugs (20 sources)Adverse reaction to drug; Translations: [Adverse effect of unspecified drugs, medicaments and biological substances, initial encounter] 06-18-8214XdiucjzuQ Codes: Fall (20 sources)Fall; Translations: [Unspecified fall, initial encounter]06-04-2020 EpisodicEsophageal disorders (20 sources)Gastroesophageal reflux disease; Translations: [Gastro-esophageal reflux disease without esophagitis]Onset: 208129-04-3299MmexqtsClgrdqbnx hypertension (20 sources)Benign essential hypertension; Translations: [Benign essential hypertension]Onset: 176097-06-5179YflawbpKfbhagerr and duodenitis (20 sources)Gastritis; Translations: [Gastritis, unspecified, without bleeding] 94-98-0637NguwmuriYavnlktq; including migraine (20 sources)Migraine; Translations: [Migraine, unspecified, not intractable, without status migrainosus]46-53-8212CvixkikGywzq valve disorders (1 source)Tricuspid valve xzamasfghakca19-36-9874EejrjjeBmvzfwsizovhc and screening for infectious disease (5 sources)Encounter for immunization; Translations: [Patient encounter status] Onset: 05-04-2021 Resolved: 01-63-2461KersvqnlLhzt disorders (20 sources)Major depression, single episode; Translations: [Major depressive disorder, single episode, unspecified]76-28-3391AgksczyXqprwd and vomiting (2 sources)Nausea; Translations: [Nausea]Onset: 08-05-8858AvbegmziHcwaxjbvcaw chest pain (20 sources)Chest pain; Translations: [Chest pain, unspecified]Onset: 03-14-2023 43-90-9352JuzvrzihTgfmpvkqdabsvb (20 sources)Osteoarthritis of right knee joint; Translations: [Unilateral primary osteoarthritis, right knee]ChronicOther and ill-defined cerebrovascular disease (1 source)Cerebrovascular hogjvrj27-13-5805OpvovkbVivzx and unspecified benign neoplasm (20 sources)History of polyp of colon; Translations: [Personal history of colonic polyps]18-47-7269TksagyaaWdflz and unspecified benign neoplasm (1 source)Personal history of colonic polyps; Translations: [History of colon polyps]EpisodicOther circulatory disease (1 source)History of transient ischemic ejwewm76-32-3315CdmupmqjHgmfh connective tissue disease (4 sources)Bone spur of left foot; Translations: [Other enthesopathy of left foot and ankle]65-04-8124FdjhcgwxRmghx connective tissue disease (4 sources)Capsulitis of metatarsophalangeal joint of left foot; Translations: [Other enthesopathy of left foot and ankle]24-40-7439JjnmqhbmEpzkd gastrointestinal disorders (1 source)Swollen abdomen; Translations: [Abdominal distension (gaseous)]Onset: 27-89-6913PxvptdvjQocwi gastrointestinal disorders (2 sources)Diarrhea; Translations: [Diarrhea, unspecified]Onset: 12-03-2024 EpisodicOther gastrointestinal disorders (1 source)Abdominal dibdaayq86-91-3974TfdilvrkPkrma infections; including parasitic (20 sources)Personal history of other infectious and parasitic diseases; Translations: [History of 2019 novel coronavirus disease (COVID-19)]04-04-2020 EpisodicOther injuries and conditions due to external causes (2 sources)Unspecified injury of right wrist, hand and finger(s), initial encounterEpisodicOther injuries and conditions due to external causes (2 sources)Unspecified injury of right lower leg, initial encounterEpisodicOther liver diseases (1 source)Steatosis of -96-8829UdhumyqVupie nervous system disorders (20 sources)Disturbance in speech; Translations: [Unspecified speech disturbances]43-92-6358FxogancvIqgcx nervous system disorders (20 sources)Numbness; Translations: [Anesthesia of skin]31-40-3074AdtemueaEjwsx non-traumatic joint disorders (3 sources)Pain in right knee; Translations: [Pain in right knee]Onset: 13-41-8610HtbztrooWrfbo non-traumatic joint disorders (2 sources)Pain in right wristEpisodicOther nutritional; endocrine; and metabolic disorders (20 sources)Obesity; Translations: [Obesity, unspecified]ChronicOther nutritional; endocrine; and metabolic disorders (20 sources)Body mass index 30+ - obesity; Translations: [Body mass index (BMI) 33.0-33.9, adult]Onset: 814328-96-4923YbulpcrMjmsh nutritional; endocrine; and metabolic disorders (9 sources)Lipoprotein [...] sources)High density lipoprotein deficiency ; Translations: [Lipoprotein deficiency]64-85-3357QvrutuvCenxe nutritional; endocrine; and metabolic disorders (20 sources)Obese class I; Translations: [Obesity, unspecified]67-99-3696Nqgvwjn Other nutritional; endocrine; and metabolic disorders (2 sources)Body mass index (BMI) 32.0-32.9, adult; Translations: [Body mass index (BMI) 32.0-32.9, adult]Onset: 87-25-6454PczvjacJumsm nutritional; endocrine; and metabolic disorders (1 source)Obesity caused by energy xvcttzepn03-47-7829RphtflwLpbit screening for suspected conditions (not mental disorders or infectious disease) (2 sources)Imaging of abdomen abnormal; Translations: [Abnormal findings on diagnostic imaging of other abdominal regions, including retroperitoneum]Onset: 90-89-0285JvuonjqzIolcn skin disorders (20 sources)Cyst of scalp; Translations: [Follicular cyst of the skin and subcutaneous tissue, unspecified]81-95-9171GxlaafzqVmliq upper respiratory disease (1 source)Seasonal allergic mhjkelwa01-63-1032DsuqufyXkvav upper respiratory infections (10 sources)Sinusitis; Translations: [Chronic sinusitis, unspecified]Chronic Other upper respiratory infections (20 sources)Upper respiratory infection; Translations: [Acute upper respiratory infection, unspecified]03-28-5970WrrdgphgPrgwiswqoz disorders (not diabetes) (1 source)Cyst of qvramjbj52-63-4903OvomfflyJibnduhg codes; unclassified (2 sources)Never smoked tobacco; Translations: [Other specified health status] Onset: 354135-97-5921ZbgknywcWctygezs codes; unclassified (2 sources)Other specified health status; Translations: [Other specified health status]Onset: 86-05-9780KvdozpllOofghjq and strains (20 sources)Sprain of knee; Translations: [Sprain of unspecified site of left knee, initial encounter]20-58-2973CcvvddwkRlxfadi (4 sources)Syncope and collapse; Translations: [SYNCOPE AND COLLAPSE]Onset: 75-60-8735FzsdjubrQvilcyq disorders (20 sources)Thyroid nodule; Translations: [Nontoxic single thyroid nodule] 13-19-5951XbielqvClsbmtgtwaxh (2 sources)CONTACT W/AND (SUSP) EXPOS COVID-19; Translations: [CONTACT W/AND (SUSP) EXPOS COVID-19]Onset: 70-31-1731Igngw infection (1 source)COVID-19; Translations: [COVID-19]Onset: 04-16-2022 Past or Other Problems Problem ClassificationProblemDateDocumented DateEpisodic/ChronicUnclassified (3 sources)Never smoked tobacco; Translations: [Never a smoker]Unclassified (1 source)CONTACT W/AND (SUSP) EXPOS COVID-19; Translations: [CONTACT W/AND (SUSP) EXPOS COVID-19]Onset: 04-13-2022 Results Test NameValueInterpretationReference RangeFaciljesseLon 02-11-2025L Specimen: [id number] Received: 02/11/25 Status: MARYURI Winstonzach Num: [id number] Spec Type: Surgical Subm Dr: Stella Palmer DO Tissues: A Colon Biopsy (SM BOWEL BX) B Gastric Biopsy (GASTRIC BX) C Gastric Biopsy (GASTRIC POLYP) Procedures: HE/9, Gross/Micro L4/3, H PYLORI, IHC First AB Age/ Patient Sex Location Account Attending Physician Nancy Hooper 64/F [id number] Stella Palmer DO SPEC NUM: [id number] RECD: 02/11/25 STATUS: MARYURI ANGELICA NUM: [id number] SERG: 02/11/25 [facility] DR: Stella Palmer DO ENTERED: 02/11/25 [facility]AN: SPEC TYPE: Surgical DEPT: S ENTERED BY: [id number] RECV BY: [id number] ORDERED: HE/9, Gross/Micro L4/3, H PYLORI, IHC [...] submitted in a single cassette. (1, ns, W54-8847 A) ALPHONSO Specimen: [id number] Received: 02/11/25 Status: MARYURI Ludwig Num: [id number] Spec Type: Surgical Subm Dr: Stella Palmer DO Tissues: A Colon Biopsy (SM BOWEL BX) B Gastric Biopsy (GASTRIC BX) C Gastric Biopsy (GASTRIC POLYP) Procedures: HE/9, Gross/Micro L4/3, H PYLORI, IHC First AB Patient: Nancy Hooper [id number] (Continued) Specimen: [id number] Received: 02/11/25 (Continued) Gross Description (Continued) Signed (signature on file) Michelle Hendrix DO 02/12/25 1501 Specimen: [id number] Received: 02/11/25 Status: MARYURI Ludwig Num: [id number] Spec Type: Surgical Subm Dr: Stella Palmer DO Tissues: A Colon Biopsy (SM BOWEL BX) B Gastric Biopsy (GASTRIC BX) C Gastric Biopsy (GASTRIC POLYP) Procedures: HE/9, Gross/Micro L4/3, H PYLORI, IHC First AB Patient: Nancy Hooper [id number] (Continued) Specimen: [id number] Received: 02/11/25 (Continued) Gross Description (Continued) Part B is received in formalin labeled with the patients date of , and Rufus, gastric BX is a wisdom-gudino, focally erythematous, friable, 0.3 cm in greatest dimension tissue bit. The specimen is entirely submitted in a single cassette. (1, ns, B59-6360 B) Part C is received in formalin labeled with the patients date of , and Rufus, gastric polyp is a wisdom-gudino, focally erythematous, friable, 0.2 cm in greatest dimension tissue bit. The specimen is entirely submitted in a single cassette. (1, ns, [id number] C) Microscopic Description A-C: Microscopic examination performed CPT Codes 48636 x 3, 09179 Specimen: [id number] Received: 02/11/25 Status: MARYURI Ludwig Num: [id number] Spec Type: Surgical Subm Dr: Stella Palmer DO Tissues: A Colon Biopsy (SM BOWEL BX) B Gastric Biopsy (GASTRIC BX) C Gastric Biopsy (GASTRIC POLYP) Procedures: HE/9, Gross/Micro L4/3, H PYLORI, IHC First AB Patient: Nancy Hooper [id number] (Continued) Signed (signature on file) Michelle Almanza (more content not included)...[facility] Physician GroupX-ray reportOrdered By: Juwan Sanchez on 50-34-3435Cnmsd reportSUM[facility] [address] [place] [address] XRay Report Signed Patient: Nancy Hooper MR#: [id number] : 1960 Acct:[id number] Age/Sex: 64 / F ADM Date: 5 Loc: [facility] Room: Type: [facility] Attending Dr: John Benson II, MD Copies to: John Benson MD~ Ordering Provider: John Benson MD Date of Service: 12/26/24 XR/XR knee RT 4V*: M25.561 - Pain in right knee 4 views right knee plain film COMPARISON: 08/08/2022 HISTORY: Right knee pain for months ACUTE FINDINGS: No acute findings DEGENERATIVE CHANGE: Progress of the medial degeneration with ucto-py-hrvq contact patellofemoral and lateral degeneration superior patellar enthesophyte SOFT TISSUE FINDINGS: Unremarkable JOINT EFFUSION: Small POSTOP CHANGES: None BONE MINERALIZATION: Adequate XR/XR knee RT 4V* IMPRESSION: Progression of extensive medial degeneration Impression dictated by: Juwan Sanchez M.D. 12/26/2024 11:45 AM Dictation Location: [place] [address] Transcribed By: [facility] 12/26/24 1142 Dictated By: Juwan Sanchez DO 12/26/24 1144 Signed By: 12/26/24 1145 [facility] Hospitaltudy reportSUM[facility]ALTH [facility] [address] [place] [address] XRay Report Signed Patient: Nancy Hooper MR#: [id number] : 1960 Acct:[id number] Age/Sex: 64 / F ADM Date: 5 [...] Sanchez M.D. 12/26/2024 11:44 AM Dictation Location: [place] [address] Transcribed By: [facility] 12/26/24 1144 Dictated By: Juwan Sanchez DO 12/26/24 1142 Signed By: 12/26/24 1144 [facility] CenterXR knee RT 4V*on 31-09-7366OY knee RT 4V* [facility] [place] [address] XRay Report Signed Patient: Nancy Hooper MR#: [id number] 68 : 1960 Acct:[id number] Age/Sex: 64 / F ADM Date: 12/26/24 [...] CHANGE: Progress of the medial degeneration with jeuh-cc-cbzp contact patellofemoral and lateral degeneration superior patellar enthesophyte SOFT TISSUE FINDINGS: Unremarkable JOINT EFFUSION: Small POSTOP CHANGES: None BONE MINERALIZATION: Adequate XR/XR knee RT 4V* IMPRESSION: Progression of extensive medial degeneration Impression dictated by: Juwan Sanchez M.D. 12/26/2024 11:45 AM Dictation Location: [place] [address] Transcribed By: [facility] 12/26/24 1145 Dictated By: Juwan Sanchez DO 12/26/24 1144 Signed By: 12/26/24 1145[facility] Physician GroupXR pelvis 1-2Von 50-14-6107IP pelvis 1-2VSUMMA HEALTH AKRON CAMPUS [facility] [address] [place] [address] XRay Report Signed Patient: Nancy Hooper MR#: [id number] 68 : 1960 Acct:[id number] Age/Sex: 64 / F ADM Date: 12/26/24 Loc: [facility] Room: Type: [facility] Attending Dr: John Benson II, MD [...] spurring. Adequate hip joints. Impression dictated by: uJwan Sanchez M.D. 12/26/2024 11:44 AM Dictation Location: [place] [address] Transcribed By: [facility] 12/26/24 1144 Dictated By: Juwan Sanchez DO 12/26/24 1142 Signed By: 12/26/24 1144[facility] Physician GroupAppearance of UrineOrdered By: Rafael Salamanca on 08-63-2514Bsrprmvcqi (U)ClearNormalClearAdena Fayette Medical CenterComment on above:Order Comment: Name Collection Type:: Clean- Voided MidstreamPerformed By: #### CUU, ADDONUAPLUS ####[facility] [address] [id number] USABacteria [Presence] in Urine by AutomatedOrdered By: Rafael Salamanca on 22-64-2056Dsooopjx Auto Ql (U)None seen [HPF]None SeenAdena Fayette Medical CenterBilirubin Test strip Ql (U) Ordered By: Rafael Salamanca on 95-81-5532Uvllprsdn Ql (U)NegativeNegativeAdena Fayette Medical CenterCalcium oxalate crystals [Presence] in Urine by Computer assisted methodOrdered By: Rafael Salamanca on 41-21-1752Yizupyj oxalate crystals Computer assisted Ql (U)3+ [HPF][facility] CenterColor of Urine by AutoOrdered By: Rafael Salamanca on 01-42-7502Wzdhg (U)Light-yellowNormalYellow [facility] CenterComment on above:Order Comment: Name Collection Type:: Clean-Voided MidstreamPerformed By: #### CUU, ADDONUAPLUS ####[facility] [address] [id number] USADipstick and Microscopicon 03-42-4324Jbudefts,UrineNone SeenNormalNone SeenThe [facility] Physician GroupComment on above:Order Comment: Name Collection Type:: Clean- Voided MidstreamPerformed By: #### CUU, ADDONUAPLUS ####[facility] [address] [id number] USABilirubin,UrineNegativeNormal NegativeThe [facility] Physician GroupComment on above:Order Comment: Name Collection Type:: Clean-Voided MidstreamPerformed By: #### CUU, ADDONUAPLUS ####[address] USACalcium Oxalate Crystals,Urine3+ [HPF]NormalOrlando Health Emergency Room - Lake Mary Physician GroupComment on above:Order Comment: Name Collection Type:: Clean-Voided MidstreamPerformed By: #### CUU, ADDONUAPLUS ####[address] USAGlucose Ql (U)NormalNormalNormalThValor Health Physician GroupComment on above:Order Comment: Name Collection Type:: Clean- Voided MidstreamPerformed By: #### CUU, ADDONUAPLUS ####[address] USAHyaline Casts,UrineNoneNormal 0-8The [facility] Physician GroupComment on above:Order Comment: Name Collection Type:: Clean-Voided MidstreamPerformed By: #### CUU, ADDONUAPLUS ####[address] USAMucus,UrineRareNormal The [facility] Physician GroupComment on above:Order Comment: Name Collection Type:: Clean-Voided MidstreamResult Comment: PERFORMED BY: [facility] [address] [place] [address] PATHOLOGIST PANEL MAKER BASSAM BRADFORD M.D.Performed By: #### CUU, ADDONUAPLUS ####[address] [address] USANitrite,UrineNegativeNormal NegativeOrlando Health [facility] Physician GroupComment on above:Order Comment: Name Collection Type:: Clean-Voided MidstreamPerformed By: #### CUU, ADDONUAPLUS ####[address] [id number] USAOccult Blood,UrineTraceNormalNegativeThe [facility] Physician GroupComment on above: Order Comment: Name Collection Type:: Clean-Voided MidstreamPerformed By: #### CUU, ADDONUAPLUS ####[address] [address] USAProtein,UrineNegativeNormalNegativeThe [facility] Physician GroupComment on above:Order Comment: Name Collection Type:: Clean-Voided MidstreamPerformed By: #### CUU, ADDONUAPLUS ####[address] USARBC,Qtqzn2-0Mchguc7-2Qhp [facility] Comment on above:Order Comment: Name Collection Type:: Clean-Voided Midstream Performed By: #### CUU, ADDONUAPLUS ####[address] USASpecificy [place],Urine1.310Ieqp5.001-1.030The [facility] Physician GroupComment on above:Order Comment: Name Collection Type:: Clean-Voided MidstreamPerformed By: #### CUU, ADDONUAPLUS ####[address] USASquamous Epithelial Cell,Urine 3-1Retwzh8-6Vji [facility] Physician GroupComment on above:Order Comment: Name Collection Type:: Clean-Voided MidstreamPerformed By: #### CUU, ADDONUAPLUS ####[address] [place] Urobilinogen,UrineNormalNormalNormalThe [facility] Physician GroupComment on above:Order Comment: Name Collection Type:: Clean-Voided MidstreamPerformed By: #### CUU, ADDONUAPLUS ####[address] USAWBC,Pfmlp8-0Ifvckg9-0Kdi [facility] Comment on above:Order Comment: Name Collection Type:: Clean-Voided Midstream Performed By: #### CUU, ADDONUAPLUS ####[address] USAEpithelial cells.squamous [#/area] in Urine sediment by Automated countOrdered By: Rafael Salamanca on 82-93-3546Qlagtcjyli cells.squamous Auto (Urine sed) [#/Area]1-2 [HPF]0-2FBethesda North HospitalErythrocytes [#/area] in Urine sediment by Automated countOrdered By: Rafael Salamanca on 04-34-7339MGS Auto (Urine sed) [#/Area]1-2 [HPF]0-4FBethesda North HospitalGlucose [Mass/volume] in Urine by Test stripOrdered By: Rafael Salamanca on 94-78-6394Wsbpnrv Test strip (U) [Mass/Vol]Normal mg/dLNormal [facility] CenterHemoglobin Test strip Ql (U)Ordered By: Rafael Salamanca on 64-14-1906Kfadunkmkn Ql (U)TraceHighNegMercy Health Willard HospitalHyaline casts [#/area] in Urine sediment by Automated countOrdered By: Rafael Salamanca on 42-79-4190Mtzbvfn casts Auto (Urine sed) [#/Area]None [LPF]0-8 [facility] CenterKetones [Presence] in Urine by Test strip Ordered By: Rafael Salamanca on 35-86-6748Zjocadt Ql (U)NegativeNormalNegative [facility] CenterComment on above:Order Comment: Name Collection Type:: Clean-Voided MidstreamPerformed By: #### CUU, ADDONUAPLUS ####[facility] [address] [facility], [address] USALeukocyte esterase [Presence] in Urine by Test stripOrdered By: Rafael Salamanca on 94-56-7358Awbsjcjnn esterase Test strip Ql (U)NegativeNormalNegMercy Health Willard HospitalComment on above:Order Comment: Name Collection Type:: Clean-Voided MidstreamPerformed By: #### CUU, ADDONUAPLUS ####[facility] [address] [facility], [id number] USALeukocytes [#/area] in Urine sediment by Automated countOrdered By: Rafael Salamanca on 02-45-1996DBM Auto (Urine sed) [#/Area]3-4 [HPF]0-4FBethesda North HospitalMucus [Presence] in Urine by AutomatedOrdered By: Rafael Salamanca on 83-71-7642Nklyg Auto Ql (U)Rare [LPF] [facility] CenterNitrite Test strip Ql (U)Ordered By: Rafael Salamanca on 76-52-5835Obwqigd Ql (U)NegativeNegativeAdena Fayette Medical Center Protein Test strip (U) [Mass/Vol]Ordered By: Rafael Salamanca on 71-70-3686Fsxjsin (U) [Mass/Vol]NegativeNegativeMercy Health Anderson Hospitalpecific gravity Test strip (U) [Rel density]Ordered By: Rafael Salamanca on 50-80-2385Loiwiali gravity (U) [Rel density]1.110Igaz0.001-1.030[facility] Urine Cultureon 50-72-4268Amymwyje identified Cx Nom (U)<9,000 colonies/ml mixed bacterial skin contaminants 2 Days PERFORMED BY: [facility] [address] [place] [address] PATHOLOGIST PANEL MAKER BASSAM BRADFORD M.D.NormalOrlando Health Emergency Room - Lake Mary Physician GroupComment on above: Performed By: #### CUU, ADDONUAPLUS ####[place] [address] [place], [place] USAUrine cultureOrdered By: Rafael Salamanca on 12-24-2024 Bacteria identified Cx Nom (U)2 DaysAdena Fayette Medical Center Urobilinogen Test strip (U) [Mass/Vol]Ordered By: Rafael Salamanca on 12-24-2024 Urobilinogen (U) [Mass/Vol]Normal mg/dLNormalAdena Fayette Medical CenterpH of Urine by Test stripOrdered By: Rafael Salamanca on 49-59-0661kW (U)5.5 [pH]Normal 5.0-9.0[facility] Medical CenterComment on above:Order Comment: Name Collection Type:: Clean-Voided MidstreamPerformed By: #### CUU, ADDONUAPLUS ####[place] [address] [place], [place] USAAlanine aminotransferase [Enzymatic activity/volume] in Serum or PlasmaOrdered By: Renny Walton on 59-46-4900NCN [Catalytic activity/Vol]16 U/LNormal7-52[facility] Medical CenterComment on above:Performed By: #### KARLOSAR CBC, EBS A1C, PILLAR LIPID, PILLAR CMP #### [facility] [address] [place] [id number] USAAlbumin [Mass/volume] in Serum or Plasma by Bromocresol green (BCG) dye binding methoOrdered By: Renny Walton on 65-75-3458Tsohxhz BCG dye [Mass/Vol]4.2 g/dL3.5-5.7FBethesda North HospitalAlkaline phosphatase [Enzymatic activity/volume] in Serum or PlasmaOrdered By: Renny Walton on 03-89-5137UJZ [Catalytic activity/Vol]59 U/ALuhrzs98-997ZiiajcsylAdena Fayette Medical CenterComment on above:Performed By: #### MARYANN CBC, EBS A1C, PILLAR LIPID, PILLAR CMP #### [facility] [address] [place] [id number] USAAppearance of UrineOrdered By: Rafael Salamanca on 12-20-2024 Appearance (U)ClearNormalClearAdena Fayette Medical CenterComment on above: Order Comment: Name Collection Type:: Clean-Voided MidstreamPerformed By: #### CUU, ADDONUAPLUS #### [facility] [address] [place] [id number] USAAspartate aminotransferase [Enzymatic activity/volume] in Serum or PlasmaOrdered By: Renny Walton on 94-08-3279OBW [Catalytic activity/Vol] 13 U/HPbeekk01-30GgxhwissdAdena Fayette Medical CenterComment on above:Performed By: #### PILLAR CBC, EBS A1C, PILLAR LIPID, PILLAR CMP #### [facility] [address] [place] [id number] USABacteria [Presence] in Urine by AutomatedOrdered By: Rafael Salamanca on 86-95-1714Kxdpcdqg Auto Ql (U)None seen [HPF]None SeenAdena Fayette Medical CenterBasophils [#/volume] in Blood by Automated countOrdered By: Renny Walton on 60-08-7557Qggpqwkif (Bld) [#/Vol]0.1 10*3/uLNormal0.0-0.2 [facility] CenterComment on above:Result Comment: PERFORMED BY: [place] [address] PATHOLOGIST PANEL MAKER BASSAM BRADFORD M.D.Performed By: #### PILLAR CBC, EBS A1C, PILLAR LIPID, PILLAR CMP #### [place] [address] USABasophils/100 leukocytes in Blood by Automated count Ordered By: Renny Walton on 71-72-0415Xkzyilgxo/100 WBC (Bld)1.1 %Normal.[facility] Medical CenterComment on above:Performed By: #### PILLAR CBC, EBS A1C, PILLAR LIPID, PILLAR CMP #### [place] [address] USABilirubin Test strip Ql (U)Ordered By: Rafael Salamanca on 48-69-2048Uznsquvlu Ql (U)NegativeNegativeAdena Fayette Medical Center Bilirubin.total [Mass/volume] in Serum or PlasmaOrdered By: Renny Walton on 03-04-7357Xcvibvnfg [Mass/Vol]0.5 mg/dLNormal0.3-1.0[facility] Medical CenterComment on above:Performed By: #### PILLAR CBC, EBS A1C, PILLAR LIPID, PILLAR CMP #### [place] [address] USABlood estimated average glucose determination by estimation from glycated hemoglobinOrdered By: Renny Walton on 64-79-7976Uysjjbz glucose Estimated from glycated hemoglobin (Bld) [Mass/Vol]117 mg/dLAdena Fayette Medical CenterCalcium [Mass/volume] in Serum or PlasmaOrdered By: Renny Walton on 53-13-6449Wyzvltn [Mass/Vol]9.6 mg/dLNormal8.6-10.3FBethesda North HospitalComment on above:Performed By: #### PILLAR CBC, EBS A1C, PILLAR LIPID, PILLAR CMP #### [address] [place] [address] USACarbon dioxide, total [Moles/volume] in Serum or Plasma Ordered By: Renny Walton on 11-17-8450CU4 [Moles/Vol]28.9 mmol/QTyngvb92.0-31.0 [facility] CenterComment on above:Performed By: #### PILLAR CBC, EBS A1C, PILLAR LIPID, PILLAR CMP #### [facility] [address] [id number] USAChloride [Moles/volume] in Serum or PlasmaOrdered By: Renny Walton on 58-91-1679Qayqmmgo [Moles/Vol]106 mmol/ELfiimw26-762FqnwttnbbAdena Fayette Medical CenterComment on above:Performed By: #### PILLAR CBC, EBS A1C, PILLAR LIPID, PILLAR CMP #### [facility] [address] [id number] USACholesterol [Mass/volume] in Serum or PlasmaOrdered By: Renny Walton on 89-49-5593Qqpmmljmcuu [Mass/Vol]178 mg/hONdhvye979-728VidhttvryAdena Fayette Medical CenterComment on above:Chol less than 200 mg/dl low riskChol 201-239 mg/dl borderline riskChol 240 mg/dl and greater high riskResult Comment: Chol less than 200 mg/dl low risk Chol 201-239 mg/dl borderline risk Chol 240 mg/dl and greater high riskPerformed By: #### PILLAR CBC, EBS A1C, PILLAR LIPID, PILLAR CMP #### [facility] [address] [phone] USACholesterol in HDL [Mass/volume] in Serum or PlasmaOrdered By: Renny Walton on 64-61-4319Ofjbdcboags in HDL [Mass/Vol]52 mg/yVCbisxz18-79 [facility] CenterComment on above:HDL CHOL ATP-III CLASSIFICATION Cardiovascular RiskHDL > or equal to 60 mg/dL LOWHDL < 40 mg/dL HIGHResult Comment: HDL CHOL ATP-III CLASSIFICATION Cardiovascular Risk HDL > or equal to 60 mg/dL LOW HDL < 40 mg/dL HIGHPerformed By: #### PILLAR CBC, EBS A1C, PILLAR LIPID, PILLAR CMP #### [facility] [address] [place] [address] USACholesterol in LDL Calc [Mass/Vol]Ordered By: Renny Walton on 04-79-1355Idwsphfgggb in LDL [Mass/Vol]90 mg/dL0-100[facility] CenterComment on above:LDL ATP III CLASSIFICATIONLDL less than 100 mg/dL OptimalLDL 100-129 mg/dL Near or above iyiutbnJPM785-949 mg/dL Borderline highLDL 160-189 mg/dL HighLDL greater than 189 mg/dL Very highCholesterol in VLDL Calc [Mass/Vol]Ordered By: Renny Walton on 06-62-4753Bdwryqsdept in VLDL [Mass/Vol]35 mg/dLAdena Fayette Medical CenterColor of Urine by AutoOrdered By: Rafael Salamanca on 16-06-2250Xijld (U)Light-yellowNormalYellowAdena Fayette Medical CenterComment on above:Order Comment: Name Collection Type:: Clean-Voided MidstreamPerformed By: #### CUU, ADDONUAPLUS #### [facility] [address] [place] [address] USACreatinine [Mass/volume] in Serum or PlasmaOrdered By: Renny Walton on 72-04-9304Zinyydfxxc [Mass/Vol]0.61 mg/dLNormal0.60-1.20[facility] CenterComment on above:Performed By: #### PILLAR CBC, EBS A1C, PILLAR LIPID, PILLAR CMP #### [facility] [address] [place] [address] USADipstick and Microscopicon 88-26-9938Ythgsndz,UrineNone SeenNormalNone SeenThe [facility]arrus Physician GroupComment on above:Order Comment: Name Collection Type:: Clean-Voided MidstreamPerformed By: #### CUU, ADDONUAPLUS #### [facility] [address] [place] [address] USABilirubin,UrineNegativeNormalNegativeThe [facility]arr[facility] Physician GroupComment on above:Order Comment: Name Collection Type:: Clean- Voided MidstreamPerformed By: #### CUU, ADDONUAPLUS #### [place] [address] USAGlucose Ql (U)NormalNormalNormalThe [facility] Physician GroupComment on above:Order Comment: Name Collection Type:: Clean-Voided MidstreamPerformed By: #### CUU, ADDONUAPLUS #### [place] [address] USAHyaline Casts,UrineNoneNormal0-8The [facility] Physician GroupComment on above:Order Comment: Name Collection Type:: Clean-Voided MidstreamPerformed By: #### CUU, ADDONUAPLUS #### [place] [address] USAMucus,UrineRareNormalThe [facility] Physician GroupComment on above:Order Comment: Name Collection Type:: Clean-Voided MidstreamResult Comment: PERFORMED BY: [place] [address] PATHOLOGIST PANEL MAKER BASSAM BRADFORD M.D.Performed By: #### CUU, ADDONUAPLUS #### [place] [address] USANitrite,UrineNegativeNormalNegativeOrlando Health [facility] Mary Physician GroupComment on above:Order Comment: Name Collection Type:: Clean-Voided MidstreamPerformed By: #### CUU, ADDONUAPLUS #### [place] [address] USAOccult Blood,Urine1+NormalNegativeThe [facility] Physician GroupComment on above:Order Comment: Name Collection Type:: Clean-Voided MidstreamResult Comment: PERFORMED BY: [place] [address] PATHOLOGIST PANEL MAKER BASSAM BRADFORD M.D.Performed By: #### CUU, ADDONUAPLUS #### [place] [address] USAProtein,UrineNegativeNormalNegativeThe [facility] Physician GroupComment on above:Order Comment: Name Collection Type:: Clean-Voided MidstreamPerformed By: #### CUU, ADDONUAPLUS #### [place] [address] USARBC,Uvuny4-7Bvwwjl1-8Nux [facility] Physician GroupComment on above:Order Comment: Name Collection Type:: Clean-Voided MidstreamPerformed By: #### CUU, ADDONUAPLUS #### [place] [address] USASpecificy [place],Urine1.018Wllrwf3.001-1.030The [facility] Physician GroupComment on above:Order Comment: Name Collection Type:: Clean- Voided MidstreamPerformed By: #### CUU, ADDONUAPLUS #### [place] [address] USASquamous Epithelial Cell,Oebwp5-2Ocfxjp2-7Ahv [facility] Physician GroupComment on above:Order Comment: Name Collection Type:: Clean- Voided MidstreamPerformed By: #### CUU, ADDONUAPLUS #### [place] [address] USAUrobilinogen,UrineNormalNormalNormWinter Haven Hospital Physician GroupComment on above:Order Comment: Name Collection Type:: Clean- Voided MidstreamPerformed By: #### CUU, ADDONUAPLUS #### [place] [address] USAWBC,Buhmy8-4Lkzigd6-5Fky [facility] Physician GroupComment on above:Order Comment: Name Collection Type:: Clean-Voided MidstreamPerformed By: #### CUU, ADDONUAPLUS #### [place] [address] USAEBS [address] with [address]imated [address] Gluon 54-59-9256Liwinlq [Mass/Vol]117 mg/dLNoSelect Specialty Hospital - Winston[facility]Salem Physician GroupComment on above:Result Comment: PERFORMED BY: [place] [address] PATHOLOGIST PANEL MAKER BASSAM BRADFORD M.D.Performed By: #### PILLAR CBC, EBS A1C, PILLAR LIPID, PILLAR CMP ####[facility] [address] [place] [address] USAEmployee Comp Metabolic Panelon 09-19-1115Xeqlenk [Mass/Vol]4.2 g/dLNormal 3.5-5.7The [facility] Physician GroupComment on above:Performed By: #### PILLAR CBC, EBS A1C, PILLAR LIPID, PILLAR CMP #### [facility] [address] [place] [address] USAGFR/1.73 sq M.predicted MDRD (S/P/Bld) [Vol rate/Area] mL/min/{1.73_m2}NormalThe [facility]us Physician GroupComment on above:Performed By: #### PILLAR CBC, EBS A1C, PILLAR LIPID, PILLAR CMP #### [facility] [address] [place] [address] USAEmployee Complete Blood Counton 58-68-2112Jkvz Corpuscular HGB Conc33.6 g/oWZbssxp43.0-35.0The [facility] Physician GroupComment on above: Performed By: #### PILLAR CBC, EBS A1C, PILLAR LIPID, PILLAR CMP #### [facility] [address] [place] [address] USANRBC%0.0 /100{WBC}Normal0-0.5The [facility] Comment on above:Performed By: #### PILLAR CBC, EBS A1C, PILLAR LIPID, PILLAR CMP #### [facility] [address] [place] [address] USAWhite Blood Count7.4 [CFU]/mLNormal3.8-11.6The [facility] Physician GroupComment on above:Performed By: #### PILLAR CBC, EBS A1C, PILLAR LIPID, PILLAR CMP #### [facility] [address] [place] [address] USAEmployee Lipid Profileon 82-25-7008PGE Cholesterol,Rnkmtbbpnq98 mg/dLNormal0-100The [facility] Physician GroupComment on above:Result Comment: LDL ATP III CLASSIFICATION LDL less than 100 mg/dL Optimal LDL 100-129 mg/dL Near or above optimal LDL 130-159 mg/dL Borderline high LDL 160-189 mg/dL High LDL greater than 189 mg/dL Very highPerformed By: #### PILLAR CBC, EBS A1C, PILLAR LIPID, PILLAR CMP #### [facility] [address] [id number] USATriglyceride w/Wweghx123 mg/dLHigh0-149The [facility] Physician GroupComment on above:Result Comment: TRIG ATP III CLASSIFICATION TRIG less than 150 mg/dL Normal TRIG 150-199 mg/dL Borderline high TRIG 200-500 mg/dL High TRIG greater than 500 mg/dL Very high Standard traceable to the Center for Disease Conrtrol and Prevention (CDC) test method.Performed By: #### PILLAR CBC, EBS A1C, PILLAR LIPID, PILLAR CMP #### [facility] [address] [place] [address] USAVLDL OVIEMLDZCEC62 mg/dLNormalThe [facility] Physician GroupComment on above:Performed By: #### PILLAR CBC, EBS A1C, PILLAR LIPID, PILLAR CMP #### [facility] [address] [place] [address] USAEosinophils [#/volume] in Blood by Automated countOrdered By: Renny Walton on 15-22-4256Vtfgbrcnnro (Bld) [#/Vol]0.1 10*3/uLNormal0.0-0.45 [facility] CenterComment on above:Performed By: #### PILLAR CBC, EBS A1C, PILLAR LIPID, PILLAR CMP #### [facility] [address] [id number] USAEosinophils/100 leukocytes in Blood by Automated count Ordered By: Renny Walton on 54-35-0229Vlwyostovve/100 WBC (Bld)1.6 %Normal. [facility] CenterComment on above:Performed By: #### PILLAR CBC, EBS A1C, PILLAR LIPID, PILLAR CMP #### [facility] [address] [place] [address] USAEpithelial cells.squamous [#/area] in Urine sediment by Automated countOrdered By: Rafael Salamanca on 83-89-8102Ztuhesdblo cells.squamous Auto (Urine sed) [#/Area]1-2 [HPF]0-2FBethesda North Hospital Erythrocyte distribution width [Ratio] by Automated countOrdered By: Renny Walton on 42-11-6947Oqtgfhuckdy distribution width (RBC) [Ratio]13.3 %Lrmolz64.9-15.3 [facility] CenterComment on above:Performed By: #### KARLOSAR CBC, EBS A1C, PILLAR LIPID, PILLAR CMP #### [facility] [address] [place] [id number] USAErythrocytes [#/area] in Urine sediment by Automated count Ordered By: Rafael Salamanca on 98-87-9672GKK Auto (Urine sed) [#/Area]1-2 [HPF]0-4 [facility] Medical CenterErythrocytes [#/volume] in Blood by Automated countOrdered By: Renny Walton on 55-67-1861PGF (Bld) [#/Vol]4.84 10*6/uLNormal 3.60-5.00[facility] CenterComment on above:Performed By: #### PILLAR CBC, EBS A1C, PILLAR LIPID, PILLAR CMP #### [facility] [address] [address] USAGlucose [Mass/volume] in Serum or PlasmaOrdered By: Renny Walton on 20-10-6906Xphboox [Mass/Vol]111 mg/qQHjpm85-370ZpeompvarAdena Fayette Medical CenterComment on above:ADA recommended reference rangeResult Comment: ADA recommended reference rangePerformed By: #### PILLAR CBC, EBS A1C, PILLAR LIPID, PILLAR CMP #### [facility] [address] [address] USAGlucose [Mass/volume] in Urine by Test stripOrdered By: Rafael Salamanca on 78-25-0961Zsjxggb Test strip (U) [Mass/Vol]Normal mg/dLNormal [facility] CenterHematocrit [Volume Fraction] of Blood by Automated countOrdered By: Renny Walton on 02-88-0027Rltckebtqu (Bld) [Volume fraction]43.0 %Oosupv84.0-46.4FBethesda North HospitalComment on above: Performed By: #### PILLAR CBC, EBS A1C, PILLAR LIPID, PILLAR CMP #### [facility] [address] [place] [address] USAHemoglobin A1c measurementOrdered By: Renny Walton on 37-12-8375VcQ6m (Bld) [Mass fraction]5.7 %High4.3-5.6FBethesda North HospitalComment on above:Increased risk for diabetes: 5.7 - 6.4diabetes: >6.4glycemic control for adults with diabetes: <7.0Result Comment: Increased risk for diabetes: 5.7 - 6.4 diabetes: >6.4 glycemic control for adults with diabetes: <7.0Performed By: #### PILLAR CBC, EBS A1C, PILLAR LIPID, PILLAR CMP ####[facility] [address] [place] [address] USAHemoglobin Test strip Ql (U)Ordered By: Rafael Salamanca on 02-78-7611Beivumueia Ql (U)1+HighNegMercy Health Willard Hospital Hemoglobin [Mass/volume] in BloodOrdered By: Renny Walton on 80-18-8541Hfiusczjni (Bld) [Mass/Vol]14.5 g/lALelpkr52.8-15.4FBethesda North HospitalComment on above:Performed By: #### PILLAR CBC, EBS A1C, PILLAR LIPID, PILLAR CMP #### [facility] [address] [place] [address] USAHyaline casts [#/area] in Urine sediment by Automated countOrdered By: Rafael Salamanca on 95-77-7403Mobhrwx casts Auto (Urine sed) [#/Area]None [LPF]0-8[facility] Medical CenterKetones [Presence] in Urine by Test stripOrdered By: Rafael Salamanca on 83-02-8751Imfmukc Ql (U)Negative NormalNegMercy Health Willard HospitalComment on above:Order Comment: Name Collection Type:: Clean-Voided MidstreamPerformed By: #### CUU, ADDONUAPLUS #### [facility] [address] [id number] USALeukocyte esterase [Presence] in Urine by Test strip Ordered By: Rafael Cheikh on 24-09-6707Jlhilqzpa esterase Test strip Ql (U) NegativeNormalNegativeAdena Fayette Medical CenterComment on above:Order Comment: Name Collection Type:: Clean-Voided MidstreamPerformed By: #### CUU, ADDONUAPLUS #### [facility] [address] [place] [address] USALeukocytes [#/area] in Urine sediment by Automated count Ordered By: Rafael Salamanca on 10-48-4021ZMR Auto (Urine sed) [#/Area]1-2 [HPF]0-4 [facility] CenterLeukocytes [#/volume] corrected for nucleated erythrocytes in Blood by Automated counOrdered By: Renny Walton on 20-30-7707AKH corrected for nucl RBC Auto (Bld) [#/Vol]7.4 10*3/uL3.8-11.6FBethesda North HospitalLeukocytes [#/volume] in Blood by Automated countOrdered By: Renny Walton on 22-77-8695MNF (Bld) [#/Vol]7.4 10*3/uLNormal3.8-11.6FBethesda North HospitalComment on above:Performed By: #### PILLAR CBC, EBS A1C, PILLAR LIPID, PILLAR CMP #### [facility] [address] [place], [place] [id number] USALymphocytes [#/volume] in Blood by Automated countOrdered By: Renny Walton on 76-77-6553Cnumoglonbf (Bld) [#/Vol]2.4 10*3/uLNormal1.00-4.8 [facility] CenterComment on above:Performed By: #### PILLAR CBC, EBS A1C, PILLAR LIPID, PILLAR CMP #### [facility] [address] [place] [id number] USALymphocytes/100 leukocytes in Blood by Automated count Ordered By: Renny Walton on 74-83-8170Omcqhjvrczu/100 WBC (Bld)32.1 %Normal. [facility] CenterComment on above:Performed By: #### PILLAR CBC, EBS A1C, PILLAR LIPID, PILLAR CMP #### [facility] [address] [Entitic mass] by Automated countOrdered By: Renny Walton on 54-57-1048KHJ (RBC) [Entitic mass]29.9 jlZyafni31.7-34.3FBethesda North HospitalComment on above:Performed By: #### PILLAR CBC, EBS A1C, PILLAR LIPID, PILLAR CMP #### [facility] [address] Auto (RBC) [Mass/Vol]Ordered By: Renny Walton on 58-38-2991FQKS (RBC) [Mass/Vol]33.6 g/dL32.0-35.0[facility] ShawV [Entitic volume] by Automated countOrdered By: Renny Walton on 64-62-4513OJT (RBC) [Entitic vol]88.8 aVMynnrj45-689RoukwkbkxAdena Fayette Medical CenterComment on above:Performed By: #### PILLAR CBC, EBS A1C, PILLAR LIPID, PILLAR CMP #### [facility] [address] [place] [address] USAMonocytes [#/volume] in Blood by Automated countOrdered By: Renny Walton on 97-54-7465Dafgwmqsb (Bld) [#/Vol]0.6 10*3/uLNormal0.0-0.8 [facility] CenterComment on above:Performed By: #### PILLAR CBC, EBS A1C, PILLAR LIPID, PILLAR CMP #### [facility] [address] [place] [id number] USAMonocytes/100 leukocytes in Blood by Automated count Ordered By: Renny Walton on 29-66-6650Utspqvstv/100 WBC (Bld)8.6 %Normal.[facility] CenterComment on above:Performed By: #### PILLAR CBC, EBS A1C, PILLAR LIPID, PILLAR CMP #### [facility] [address] [place] [address] USAMucus [Presence] in Urine by AutomatedOrdered By: Rafael Salamanca on 99-77-7084Cxczz Auto Ql (U)Rare [LPF][facility] Neutrophils [#/volume] in Blood by Automated countOrdered By: Renny Walton on 15-84-3530Vvoavdvcydj (Bld) [#/Vol]4.2 10*3/uLNormal1.8-7.7FBethesda North HospitalComment on above:Performed By: #### PILLAR CBC, EBS A1C, PILLAR LIPID, PILLAR CMP #### [facility] [address] [place] [address] USANeutrophils/100 leukocytes in Blood by Automated count Ordered By: Renny Walton on 26-63-0555Tugljvjpnxh/100 WBC (Bld)56.6 %Normal. [facility] CenterComment on above:Performed By: #### PILLAR CBC, EBS A1C, PILLAR LIPID, PILLAR CMP #### [facility] [address] [place], [place] [id number] USANitrite Test strip Ql (U)Ordered By: Rafael Salamanca on 61-62-6327Jkdevrt Ql (U)NegativeNegativeAdena Fayette Medical CenterNo Panel InformationOrdered By: Renny Walton on 46-49-7115Jpiqjwmbv GFR (CKD-EPI)> 60.0 mL/MinAdena Fayette Medical CenterPharmacy Creatinine Clearance (Chem N/AFBethesda North HospitalNucleated erythrocytes [Presence] in Blood by Automated countOrdered By: Renny Walton on 11-89-2835Vlddqnoym RBC Auto Ql (Bld)0.0 /100{WBC}0-0.5FBethesda North HospitalPlatelet mean volume [Entitic volume] in Blood by Automated countOrdered By: Renny Walton on 12-20-2024 Platelet mean volume (Bld) [Entitic vol]6.7 fLNormal6.3-10.7FBethesda North HospitalComment on above:Performed By: #### PILLAR CBC, EBS A1C, PILLAR LIPID, PILLAR CMP #### [facility] [address] [place], [place] [address] USAPlatelets [#/volume] in Blood by Automated countOrdered By: Renny Walton on 44-90-1862Kkdmsfszq (Bld) [#/Vol]332 10*3/zYHtsibt506-052 [facility] CenterComment on above:Performed By: #### PILLAR CBC, EBS A1C, PILLAR LIPID, PILLAR CMP #### [facility] [address] [place] [address] USAPotassium [Moles/volume] in Serum or PlasmaOrdered By: Renny Walton on 00-12-1558Lvnhquxyt [Moles/Vol]4.0 mmol/LNormal3.5-5.1FBethesda North HospitalComment on above:Performed By: #### PILLAR CBC, EBS A1C, PILLAR LIPID, PILLAR CMP #### [facility] [address] [place] [address] USAProtein Test strip (U) [Mass/Vol]Ordered By: Rafael Salamanca on 80-11-0541Plglzzw (U) [Mass/Vol]NegativeNegativeAdena Fayette Medical CenterProtein [Mass/volume] in Serum or PlasmaOrdered By: Renny Walton on 72-71-0974Dbogqvp [Mass/Vol]7.0 g/dLNormal6.4-8.9[facility] CenterComment on above:Performed By: #### PILLAR CBC, EBS A1C, PILLAR LIPID, PILLAR CMP #### [facility] [address] [place] [address] USASerum globulin measurement by calculation (mass/volume) Ordered By: Renny Walton on 66-02-8278Ebfnbkkv (S) [Mass/Vol]2.8 g/dLNormal [facility] CenterComment on above:Performed By: #### PILLAR CBC, EBS A1C, PILLAR LIPID, PILLAR CMP #### [facility] [address] [place] [address] USASerum or plasma albumin/globulin mass ratioOrdered By: Renny Walton on 82-45-0961Grtmpol/Globulin [Mass ratio]1.5 {ratio}NormalAdena Fayette Medical CenterComment on above:Performed By: #### PILLAR CBC, EBS A1C, PILLAR LIPID, PILLAR CMP #### [facility] [address] [place] [phone] USASerum or plasma anion gap determinationOrdered By: Renny Walton on 28-34-1140Wgnhl gap [Moles/Vol]9.1 mmol/LNormal6.0-15.0[facility] CenterComment on above:Performed By: #### PILLAR CBC, EBS A1C, PILLAR LIPID, PILLAR CMP #### [facility] [address] [place] [address] USASerum or plasma total cholesterol/high density lipoprotein (HDL) cholesterol mass ratOrdered By: Renny Walton on 12-20-2024 Cholesterol.total/Cholesterol in HDL [Mass ratio]3.4 {ratio}Normal<5.0[facility] CenterComment on above:Result Comment: PERFORMED BY: [place] [address] PATHOLOGIST PANEL MAKER BASSAM BRADFORD M.D.Performed By: #### PILLAR CBC, EBS A1C, PILLAR LIPID, PILLAR CMP #### [facility] [address] [place] [address] USASodium [Moles/volume] in Serum or PlasmaOrdered By: Renny Walton on 80-81-2031Rmzdru [Moles/Vol]140 mmol/MBiipgs496-108IyfbkrnwoAdena Fayette Medical CenterComment on above:Performed By: #### PILLAR CBC, EBS A1C, PILLAR LIPID, PILLAR CMP #### [facility] [address] [place] [phone] USASpecific gravity Test strip (U) [Rel density]Ordered By: Rafael Salamanca on 04-83-2385Tfdhmpgg gravity (U) [Rel density]1.0201.001-1.030 [facility] CenterTriglyceride [Mass/volume] in Serum or Plasma Ordered By: Renny Walton on 22-41-7256Mpyctywsmcwd [Mass/Vol]178 mg/dLHigh0-149 [facility] CenterComment on above:TRIG ATP III CLASSIFICATIONTRIG less than 150 mg/dL NormalTRIG 150-199 mg/dL Borderline highTRIG 200-500 mg/dL High TRIG greater than 500 mg/dL Very highStandard traceable to the Center for Disease Conrtrol and Prevention (CDC) test method. Urea nitrogen [Mass/volume] in Serum or PlasmaOrdered By: Renny Walton on 07-17-5764Peyu nitrogen [Mass/Vol]20 mg/dLNormal7-25[facility] CenterComment on above:Performed By: #### PILLAR CBC, EBS A1C, PILLAR LIPID, PILLAR CMP #### [facility] [address] [place] [id number] USAUrine Cultureon 54-48-5137Qeqtpntp identified Cx Nom (U) Urine Culture Results >100,000 col/ml Mixed Bacterial Skin Contaminants 2 Days PERFORMED BY: [place] [address] PATHOLOGIST PANEL MAKER BASSAM BRADFORD M.D.NormalThe [facility]rium Health Cabarrus Physician GroupComment on above: Performed By: #### CUJonn, FEIONUAPLUS #### [place] [address] USAUrine cultureOrdered By: Rafael Salamanca on 17-46-5581Kplqaqbm identified Cx Nom (U)[facility] Medical CenterUrobilinogen Test strip (U) [Mass/Vol]Ordered By: Rafael Salamanca on 72-67-1163Zplwrgmsaigr (U) [Mass/Vol] Normal mg/dLNormalAdena Fayette Medical CenterpH of Urine by Test strip Ordered By: Rafael Salamanca on 37-67-4778lU (U)5.0 [pH]Normal5.0-9.0A[facility] Fayette Medical CenterComment on above:Order Comment: Name Collection Type:: Clean-Voided MidstreamPerformed By: #### CUU, ADDONUAPLUS #### [facility] [address] [id number] USAAmbulatory Visit Summaryon 48-75-6016Bvzlhpyuxr Visit SummaryAmbulatory Visit Summary NANCY HOOPER :1960 [...] signed up for this yet, please contact Mamina Shkola at [phone] to get signed up today. Language Information Language assistance services are available as needed. [facility] HospitalAppearance of UrineOrdered By: Rafael Salamanca on 34-39-7973Jcqsleujua (U)ClearNormalClearAdena Fayette Medical CenterComment on above:Order Comment: Name Collection Type:: Clean- Voided MidstreamPerformed By: #### ADDONUAPLUS, CUU #### [facility] [address] [place] [address] USABacteria [Presence] in Urine by AutomatedOrdered By: Rafael Salamanca on 86-44-6020Sfdvcqmn Auto Ql (U)None seen [HPF]None [facility] CenterBilirubin Test strip Ql (U)Ordered By: Rafael Salamanca on 35-40-6863Fyrrrkhmg Ql (U)NegativeNegativeAdena Fayette Medical CenterColor of Urine by AutoOrdered By: Rafael Salamanca on 57-22-3145Fjola (U)Light-yellow NormalYellowAdena Fayette Medical CenterComment on above:Order Comment: Name Collection Type:: Clean-Voided MidstreamPerformed By: #### ADDONUAPLUS, CUU #### [facility] [address] [place] [address] USADipstick and Microscopicon 88-34-3147Cdagnkoq,UrineNone SeenNormalNone SeenThe [facility]arrus Physician GroupComment on above:Order Comment: Name Collection Type:: Clean-Voided MidstreamPerformed By: #### ADDONUAPLUS, CUU #### [place] [address] USABilirubin,UrineNegativeNormalNegativeThe [facility] Cabarr[facility] Physician GroupComment on above:Order Comment: Name Collection Type:: Clean- Voided MidstreamPerformed By: #### ADDONUAPLUS, CUU #### [place] [id number] USAGlucose Ql (U)NormalNormalNormalThe [facility]arr[facility] Physician GroupComment on above:Order Comment: Name Collection Type:: Clean-Voided MidstreamPerformed By: #### ADDONUAPLUS, CUU #### [place] [address] USAHyaline Casts,UrineNoneNormal0-8The [facility] Physician GroupComment on above:Order Comment: Name Collection Type:: Clean-Voided MidstreamResult Comment: PERFORMED BY: [place] [address] PATHOLOGIST PANEL MAKER BASSAM BRADFORD M.D.Performed By: #### ADDONUAPLUS, CUU #### [place] [address] USANitrite,UrineNegativeNormalNegativeThe [facility]arr[facility] Physician GroupComment on above:Order Comment: Name Collection Type:: Clean-Voided MidstreamPerformed By: #### ADDONUAPLUS, CUU #### [address] [address] USAOccult Blood,UrineNegativeNormalNegativeThe [facility] Physician GroupComment on above:Order Comment: Name Collection Type:: Clean- Voided MidstreamPerformed By: #### ADDONUAPLUS, CUU #### [place] [address] USAProtein,UrineNegativeNormalNegativeThe [facility] Physician GroupComment on above:Order Comment: Name Collection Type:: Clean-Voided MidstreamPerformed By: #### ADDONUAPLUS, CUU #### [place] [address] USARBC,UrineNone SeenNormal0-4The [facility] Comment on above:Order Comment: Name Collection Type:: Clean-Voided Midstream Performed By: #### ADDONUAPLUS, CUU #### [place] [address] USASpecificy [place],Urine1.127Nfuads8.001-1.030The [facility] Cabarr[facility] Physician GroupComment on above:Order Comment: Name Collection Type:: Clean- Voided MidstreamPerformed By: #### ADDONUAPLUS, CUU #### [place] [address] USASquamous Epithelial Cell,Tsxvw3-4Wkwvaa4-9Krf [facility] Physician GroupComment on above:Order Comment: Name Collection Type:: Clean- Voided MidstreamPerformed By: #### ADDONUAPLUS, CUU #### [place] [address] USAUrobilinogen,UrineNormalNormalNormalThe [facility] Cabarrus Physician GroupComment on above:Order Comment: Name Collection Type:: Clean- Voided MidstreamPerformed By: #### ADDONUAPLUS, CUU #### [place] [address] USAWBC,Iqjdt8-1Fkbebw5-9Ofh [facility] Physician GroupComment on above:Order Comment: Name Collection Type:: Clean-Voided MidstreamPerformed By: #### ADDONUAPLUS, CUU #### [place] [address] USAEpithelial cells.squamous [#/area] in Urine sediment by Automated countOrdered By: Rafael Salamanca on 55-33-8536Vlwjdzvthj cells.squamous Auto (Urine sed) [#/Area]1-2 [HPF]0-2FBethesda North Hospital Erythrocytes [#/area] in Urine sediment by Automated countOrdered By: Rafael Salamanca on 40-77-5497WTR Auto (Urine sed) [#/Area]None seen [HPF]0-4FBethesda North HospitalGlucose [Mass/volume] in Urine by Test stripOrdered By: Rafael Salamanca on 31-19-8664Tbwylgn Test strip (U) [Mass/Vol]Normal mg/dLNormal [facility] Medical CenterHemoglobin Test strip Ql (U)Ordered By: Rafael Salamanca on 37-42-9771Tuwqfskxmd Ql (U)NegativeNegMercy Health Willard HospitalHyaline casts [#/area] in Urine sediment by Automated countOrdered By: Rafael Salamanca on 49-65-7978Yzdohcq casts Auto (Urine sed) [#/Area]None [LPF]0-8 [facility] CenterKetones [Presence] in Urine by Test strip Ordered By: Rafael Salamanca on 36-37-4374Wnflkml Ql (U)NegativeNormalNegative [facility] CenterComment on above:Order Comment: Name Collection Type:: Clean-Voided MidstreamPerformed By: #### ADDONUAPLUS, CUU #### [facility] [address] [id number] USALeukocyte esterase [Presence] in Urine by Test strip Ordered By: Rafael Salamanca on 11-88-7230Gwsovblmw esterase Test strip Ql (U) NegativeNormalNegMercy Health Willard HospitalComment on above:Order Comment: Name Collection Type:: Clean-Voided MidstreamPerformed By: #### ADDONUAPLUS, CUU #### [facility] [address] [id number] USALeukocytes [#/area] in Urine sediment by Automated count Ordered By: Rafael Salamanca on 62-18-9919GQB Auto (Urine sed) [#/Area]1-2 [HPF]0-4 [facility] CenterNitrite Test strip Ql (U)Ordered By: Rafale Salamanca on 26-91-3069Zovwpmy Ql (U)NegativeNegMercy Health Willard Hospital Protein Test strip (U) [Mass/Vol]Ordered By: Rafael Salamanca on 39-33-7067Zdjrmfw (U) [Mass/Vol]NegativeNegHolzer Medical Center – Jacksonpecific gravity Test strip (U) [Rel density]Ordered By: Rafael Salamanca on 09-22-2703Ciggtokm gravity (U) [Rel density]1.0111.001-1.030A[facility] Fayette Medical CenterUrine Cultureon 91-68-4324Pguayzay identified Cx Nom (U)>100,000 colonies/ml mixed bacterial skin contaminants 2 Days PERFORMED BY: [place] [address] PATHOLOGIST PANEL MAKER BASSAM BRADFORD M.D.NormalThe [facility] Cabarrus Physician GroupComment on above: Performed By: #### JOSE, CUU #### [facility] [address] [place], [place] [address] USAUrine cultureOrdered By: Rafael Salamanca on 81-58-2161Cyphypnx identified Cx Nom (U)2 DaysAdena Fayette Medical CenterUrobilinogen Test strip (U) [Mass/Vol]Ordered By: Rafael Salamanca on 35-88-0366Ewqpbwgmtvmb (U) [Mass/Vol]Normal mg/dLNormalAdena Fayette Medical CenterpH of Urine by Test stripOrdered By: Rafael Salamanca on 79-77-4857pA (U)5.5 [pH]Normal5.0-9.0A[facility] Medical CenterComment on above:Order Comment: Name Collection Type:: Clean-Voided MidstreamPerformed By: #### JOSE, CUU #### [facility] [address] [place], [place] [address] USAUS abdomen limitedon 21-90-5851OL abdomen limitedSUM[facility]US [address] [place] [id number] Ultrasound Report Signed Patient: Nancy Hooper MR#: [id number] 68 : 1960 Acct:[id number] Age/Sex: 64 / F ADM Date: 11/23/24 Loc: UL Room: Type: [facility] Attending Dr: Rafael Salamanca MD Ordering Provider: [...] Degroot M.D. 11/23/2024 5:13 PM Dictation Location: [place] [address] Tech: Ramila Su Transcribed By: ADAM 11/23/241712 Dictated By: Shai Degroot II, MD 11/23/241711 Signed By: 11/23/241712[facility] Physician GroupAlanine aminotransferase [Enzymatic activity/volume] in Serum or PlasmaOrdered By: Rafael Salamanca on 21-84-8193FQT [Catalytic activity/Vol]15 U/LNormal7-52A[facility]ayette Medical CenterComment on above:Performed By: #### HOMER, CMP, CBC, LIPASE ####[facility] [address] [place] [address] USAAlbumin [Mass/volume] in Serum or Plasma by Bromocresol green (BCG) dye binding methoOrdered By: Rafael Salamanca on 59-52-6359Ycqnrag BCG dye [Mass/Vol]4.1 g/dL3.5-5.7FBethesda North HospitalAlkaline phosphatase [Enzymatic activity/volume] in Serum or PlasmaOrdered By: Rafael Salamanca on 77-47-6667OPM [Catalytic activity/Vol]57 U/L Rircha63-638IjlrvolhlAdena Fayette Medical CenterComment on above:Performed By: #### HOMER, CMP, CBC, LIPASE ####[address] [address] USAAmylase [Enzymatic activity/volume] in Serum or PlasmaOrdered By: Rafael Salamanca on 38-69-5037Mopsnnh [Catalytic activity/Vol]34 U/EFzshqm64-010LxhjesrhmAdena Fayette Medical CenterComment on above:Performed By: #### HOMER, CMP, CBC, LIPASE ####[place] [id number] USAAspartate aminotransferase [Enzymatic activity/volume] in Serum or PlasmaOrdered By: Rafael Salamanca on 02-44-5097VXH [Catalytic activity/Vol]12 U/XPfk48-20JkempbgkwAdena Fayette Medical CenterComment on above:Performed By: #### HOMER, CMP, CBC, LIPASE ####[place] [phone] USABasophils [#/volume] in Blood by Automated countOrdered By: Rafael Salamanca on 40-03-5496Ebsmrqbwi (Bld) [#/Vol]0.1 10*3/uLNormal0.0-0.2FBethesda North HospitalComment on above:Result Comment: PERFORMED BY: [facility] [address] [place] [address] PATHOLOGIST PANEL MAKER BASSAM BRADFORD M.D.Performed By: #### HOMER, CMP, CBC, LIPASE ####[place] [phone] USABasophils/100 leukocytes in Blood by Automated countOrdered By: Rafael Salamanca on 11-21-2024 Basophils/100 WBC (Bld)1.0 %Normal.A[facility] Medical CenterComment on above:Performed By: #### HOMER, CMP, CBC, LIPASE ####[place] [phone] USABilirubin.total [Mass/volume] in Serum or PlasmaOrdered By: Rafael Salamanca on 35-08-7392Hqtlnbfwq [Mass/Vol]0.3 mg/dL Normal0.3-1.0A[facility] Medical CenterComment on above:Performed By: #### HOMER, CMP, CBC, LIPASE ####[place] [phone] USACalcium [Mass/volume] in Serum or PlasmaOrdered By: Rafael Salamanca on 34-90-3090Bxfbwrr [Mass/Vol]9.2 mg/dLNormal8.6-10.3FBethesda North HospitalComment on above:Performed By: #### HOMER, CMP, CBC, LIPASE ####[place] [id number] USACarbon dioxide, total [Moles/volume] in Serum or PlasmaOrdered By: Rafael Reedangelito on 84-68-2700DM6 [Moles/Vol]29.6 mmol/XHrcemn77.0-31.0A[facility] Medical CenterComment on above:Performed By: #### HOMER, CMP, CBC, LIPASE ####[place] [phone] USAChloride [Moles/volume] in Serum or PlasmaOrdered By: Rafael Reedangelito on 26-15-1665Ptmxikkp [Moles/Vol]107 mmol/HCgfapw47-562ZtoforxbqAdena Fayette Medical CenterComment on above:Performed By: #### HOMER, CMP, CBC, LIPASE ####[place] [id number] USAComplete Blood Count Auto Diffon 80-58-1401Rqqf Corpuscular HGB Conc33.4 g/gXSybxvy24.0-35.0The [facility]arrus Physician GroupComment on above:Performed By: #### HOMER, CMP, CBC, LIPASE ####[place] [address] USANRBC% 0.1 /100{WBC}Normal0-0.5The [facility] Cabarrus Physician GroupComment on above:Performed By: #### HOMER, CMP, CBC, LIPASE ####[place] [address] USAWhite Blood Count7.7 [CFU]/mLNormal3.8-11.6The [facility]arrus Physician GroupComment on above:Performed By: #### HOMER, CMP, CBC, LIPASE ####[place] [address] [facility] Comprehensive Metabolic Panelon 77-56-4520Ohiybjm [Mass/Vol]4.1 g/dLNormal 3.5-5.7The [facility] Cabarrus Physician GroupComment on above:Performed By: #### HOMER, CMP, CBC, LIPASE ####[place] [address] USAGFR/1.73 sq M.predicted MDRD (S/P/Bld) [Vol rate/Area]mL/min/{1.73_m2} NormalThe [facility] Physician [facility] HospitalComment on above:Performed By: #### HOMER, CMP, CBC, LIPASE ####[place] [address] USACreatinine [Mass/volume] in Serum or PlasmaOrdered By: Rafael Salamanca on 82-30-4222Mxafpugwcb [Mass/Vol]0.58 mg/dLLow0.60-1.20A[facility] Medical CenterComment on above:Performed By: #### HOMER, CMP, CBC, LIPASE ####[place] [phone] USAEosinophils [#/volume] in Blood by Automated countOrdered By: Rafael Salamanca on 11-21-2024 Eosinophils (Bld) [#/Vol]0.1 10*3/uLNormal0.0-0.45A[facility] Medical CenterComment on above:Performed By: #### HOMER, CMP, CBC, LIPASE ####[place] [id number] USAEosinophils/100 leukocytes in Blood by Automated countOrdered By: Rafael Salamanca on 11-21-2024 Eosinophils/100 WBC (Bld)1.2 %Normal.A[facility] Medical CenterComment on above:Performed By: #### HOMER, CMP, CBC, LIPASE ####[place] [address] USAErythrocyte distribution width [Ratio] by Automated countOrdered By: Rafael Salamanca on 09-99-6780Dtvsflwsisn distribution width (RBC) [Ratio]13.5 %Pqfbpw39.9-15.3FBethesda North Hospital Comment on above:Performed By: #### HOMER, CMP, CBC, LIPASE ####[place] [address] USAErythrocytes [#/volume] in Blood by Automated countOrdered By: Rafael Salamanca on 27-57-3798GJL (Bld) [#/Vol] 4.72 10*6/uLNormal3.60-5.00A[facility] Medical CenterComment on above: Performed By: #### HOMER, CMP, CBC, LIPASE ####[place] [address] USAGlucose [Mass/volume] in Serum or Plasma Ordered By: Rafael Salamanca on 24-24-4117Jkzvabi [Mass/Vol]118 mg/lZCiwe92-989 [facility] CenterComment on above:ADA recommended reference rangeRandom [...] rangePerformed By: #### HOMER, CMP, CBC, LIPASE ####[place] [id number] [facility] Hematocrit [Volume Fraction] of Blood by Automated countOrdered By: Rafael Salamanca on 46-95-3822Gumohlwsyy (Bld) [Volume fraction]42.8 %Trkdnt75.0-46.4FBethesda North HospitalComment on above:Performed By: #### HOMER, CMP, CBC, LIPASE ####[place] [id number] [facility] Hemoglobin [Mass/volume] in BloodOrdered By: Rafael Salamanca on 10-97-7355Eetpaubtwc (Bld) [Mass/Vol]14.3 g/fQSoudhw29.8-15.4FBethesda North Hospital Comment on above:Performed By: #### HOMER, CMP, CBC, LIPASE ####[address] [address] USALeukocytes [#/volume] corrected for nucleated erythrocytes in Blood by Automated counOrdered By: Rafael Salamanca on 71-72-9744TPP corrected for nucl RBC Auto (Bld) [#/Vol]7.7 10*3/uL3.8-11.6FBethesda North HospitalLeukocytes [#/volume] in Blood by Automated countOrdered By: Rafael Salamanca on 17-27-3797ECT (Bld) [#/Vol]7.7 10*3/uLNormal3.8-11.6FBethesda North HospitalComment on above:Performed By: #### HOMER, CMP, CBC, LIPASE ####[address] [address] USALipase [Enzymatic activity/volume] in Serum or PlasmaOrdered By: Rafael Salamanca on 22-55-5095Aadaxa [Catalytic activity/Vol]43.0 U/XXgapoj02.0-82.0A[facility] Medical CenterComment on above:Result Comment: PERFORMED BY: [facility] [address] [place] [address] PATHOLOGIST PANEL MAKER BASSAM BRADFORD M.D.Performed By: #### HOMER, CMP, CBC, LIPASE ####[address] [address] USALymphocytes [#/volume] in Blood by Automated countOrdered By: Rafael Salamanca on 11-21-2024 Lymphocytes (Bld) [#/Vol]2.1 10*3/uLNormal1.00-4.8A[facility] Medical CenterComment on above:Performed By: #### HOMER, CMP, CBC, LIPASE ####[address] [address] USALymphocytes/100 leukocytes in Blood by Automated countOrdered By: Rafael Salamanca on 11-21-2024 Lymphocytes/100 WBC (Bld)27.0 %Normal.A[facility] Medical CenterComment on above:Performed By: #### HOMER, CMP, CBC, LIPASE ####[address] [address] [facility] [Entitic mass] by Automated count Ordered By: Rafael Salamanca on 31-97-7274XHO (RBC) [Entitic mass]30.2 pgNormal 24.7-34.3FBethesda North HospitalComment on above:Performed By: #### HOMER, CMP, CBC, LIPASE ####[place] [id number] [facility] Auto (RBC) [Mass/Vol]Ordered By: Rafael Salamanca on 38-52-4009OCAK (RBC) [Mass/Vol]33.4 g/dL32.0-35.0[facility], Edwin ShawV [Entitic volume] by Automated countOrdered By: Rafael Salamanca on 24-37-9486EMW (RBC) [Entitic vol]90.7 pVMqtufq80-048DkvenpyhpAdena Fayette Medical CenterComment on above:Performed By: #### HOMER, CMP, CBC, LIPASE ####[place] [address] USAMonocytes [#/volume] in Blood by Automated countOrdered By: Rafael Salamanca on 22-77-4608Rxhxalvor (Bld) [#/Vol]0.7 10*3/uLNormal0.0-0.8A[facility] Medical CenterComment on above:Performed By: #### HOMER, CMP, CBC, LIPASE ####[place] [id number] USAMonocytes/100 leukocytes in Blood by Automated countOrdered By: Rafael Salamanca on 99-43-1989Qdjklzolz/100 WBC (Bld)9.0 % Normal.[facility] Medical CenterComment on above:Performed By: #### HOMER, CMP, CBC, LIPASE ####[place] [id number] USANeutrophils [#/volume] in Blood by Automated countOrdered By: Rafael Salamanac on 63-06-3345Pgebumtviiw (Bld) [#/Vol]4.8 10*3/uLNormal1.8-7.7 [facility] CenterComment on above:Performed By: #### HOMER, CMP, CBC, LIPASE ####[address] [place] [address] USANeutrophils/100 leukocytes in Blood by Automated countOrdered By: Rafael Salamanca on 09-49-2824Jbfiysjcnqc/100 WBC (Bld)61.8 %Normal.[facility] Medical CenterComment on above:Performed By: #### HOMER, CMP, CBC, LIPASE ####[place] [address] [place] [address] USANo Panel InformationOrdered By: Rafael Salamanca on 07-53-4167Jnjvrcque GFR (CKD-EPI)> 60.0 mL/MinAdena Fayette Medical CenterPharmacy Creatinine Clearance (Chem N/AFBethesda North HospitalNucleated erythrocytes [Presence] in Blood by Automated countOrdered By: Rafael Salamanca on 47-55-8508Mvdhrcvsz RBC Auto Ql (Bld)0.1 /100{WBC}0-0.5FBethesda North HospitalPlatelet mean volume [Entitic volume] in Blood by Automated countOrdered By: Rafael Salamanca on 32-09-2467Gvxsnvjw mean volume (Bld) [Entitic vol]7.1 fLNormal6.3-10.7FBethesda North HospitalComment on above:Performed By: #### HOMER, CMP, CBC, LIPASE ####[place] [address] [place] [address] [place] Platelets [#/volume] in Blood by Automated countOrdered By: Rafael Salamanca on 64-70-2121Kzuqjmhqi (Bld) [#/Vol]334 10*3/aIDwzpbe932-678TrmijqwefAdena Fayette Medical CenterComment on above:Performed By: #### HOMER, CMP, CBC, LIPASE ####[address] [address] [place] Potassium [Moles/volume] in Serum or PlasmaOrdered By: Rafael Salamanca on 11-21-2024 Potassium [Moles/Vol]4.2 mmol/LNormal3.5-5.1FBethesda North Hospital Comment on above:Performed By: #### HOMER, CMP, CBC, LIPASE ####[place] [address] USAProtein [Mass/volume] in Serum or PlasmaOrdered By: Rafael Salamanca on 19-05-3006Okxwkzm [Mass/Vol]7.0 g/dL Normal6.4-8.9A[facility] Medical CenterComment on above:Performed By: #### HOMER, CMP, CBC, LIPASE ####[place] [address] USASerum globulin measurement by calculation (mass/volume)Ordered By: Rafael Salamanca on 69-17-6566Ojrpkior (S) [Mass/Vol]2.9 g/dLNormalAdena Fayette Medical CenterComment on above:Performed By: #### HOMER, CMP, CBC, LIPASE ####[place] [address] USASerum or plasma albumin/globulin mass ratioOrdered By: Rafael Salamanca on 31-77-3809Hvrmqco/Globulin [Mass ratio]1.4 {ratio}Normal [facility] CenterComment on above:Performed By: #### HOMER, CMP, CBC, LIPASE ####[place] [address] USASerum or plasma anion gap determinationOrdered By: Rafael Salamanca on 96-43-0421Xfqdh gap [Moles/Vol]10.6 mmol/LNormal6.0-15.0A[facility] Medical CenterComment on above:Performed By: #### HOMER, CMP, CBC, LIPASE ####[place] [address] USASodium [Moles/volume] in Serum or PlasmaOrdered By: Rafael Salamanca on 24-67-4328Jnomzp [Moles/Vol]143 mmol/GHtecea259-489SfnkmgfjkAdena Fayette Medical CenterComment on above:Performed By: #### HOMER, CMP, CBC, LIPASE ####[facility] [address] [place] [address] USAUrea nitrogen [Mass/volume] in Serum or PlasmaOrdered By: Rafael Salamanca on 65-22-9717Fzth nitrogen [Mass/Vol]25 mg/dL Normal-[facility] Medical CenterComment on above:Performed By: #### HOMER, CMP, CBC, LIPASE ####[facility] [address] [place] [address] USACT foot LT wo conon 86-08-9405UZ foot LT wo con [facility] [address] [place] [address] CT Scan Report Signed Patient: Nancy Hooper MR#: [id number] 68 : 1960 Acct:[id number] Age/Sex: 64 / F ADM Date: 10/16/24 Loc: CT Room: Type: [facility] Attending Dr: Rafael Salamanca MD Copies to: Rafael Salamanca MD Ordering Provider: Rafael Salamanca MD Date of Service: 10/16/24 CT/CT foot LT wo con: M79.672 ([id number]) CT/CT ankle LT wo con: M79.672 CT [...] Degroot M.D. 10/16/2024 4:27 PM Dictation Location: [place] [address] Transcribed By: ADAM 10/16/24 1627 Dictated By: Shai Degroot II, MD 10/16/24 1601 Signed By: 10/16/24 1627[facility] Physician GroupXR foot LT 2Von 85-69-1513FS foot LT 2VSUMMA [facility] [place] [address] XRay Report Signed Patient: Nancy Hooper MR#: [id number] 68 : 1960 Acct:[id number] Age/Sex: 64 / F ADM Date: 09/27/24 Loc: XD Room: Type: [facility] Attending Dr: Rafael Salamanca MD Copies [...] Sanchez DO 09/27/24 1608 Signed By: 09/27/24 160[facility] Physician GroupBasophils Auto (Bld) [#/Vol] Ordered By: Renny Walton on 28-33-6350Zcromswfj (Bld) [#/Vol]0.1 10*3/uL0.0-0.2 [facility] CenterBasophils/100 WBC Auto (Bld)Ordered By: Renny Walton on 94-90-2428Cbleycdvj/100 WBC (Bld)1.1 %.[facility] Calcium [Mass/volume] in Serum or PlasmaOrdered By: Renny Walton on 11-13-2023 Calcium [Mass/Vol]9.1 mg/dL8.6-10.3FBethesda North HospitalCarbon dioxide, total [Moles/volume] in Serum or PlasmaOrdered By: Renny Walton on 13-60-7396QI0 [Moles/Vol]28.1 mmol/L21.0-31.0[facility] Chloride [Moles/volume] in Serum or PlasmaOrdered By: Renny Walton on 11-13-2023 Chloride [Moles/Vol]107 mmol/Q16-065ChkxdsmzfAdena Fayette Medical CenterCholesterol [Mass/volume] in Serum or PlasmaOrdered By: Renny Walton on 72-38-2520Vqyllalygff [Mass/Vol]174 mg/bK511-101DuonnlwyzAdena Fayette Medical CenterComment on above: Chol less than 200 mg/dl low riskChol 201-239 mg/dl borderline riskChol 240 mg/dl and greater high riskCholesterol in LDL Calc [Mass/Vol]Ordered By: Renny Walton on 13-08-8588Brdcrtmjfzz in LDL [Mass/Vol]98 mg/dL0-100A[facility] Medical CenterComment on above:LDL ATP III CLASSIFICATIONLDL less than 100 mg/dL OptimalLDL 100-129 mg/dL Near or above yvybgreYEZ910-235 mg/dL Borderline highLDL 160-189 mg/dL HighLDL greater than 189 mg/dL Very highCholesterol in VLDL Calc [Mass/Vol]Ordered By: Renny Walton on 79-24-4931Ppmefhzaahq in VLDL [Mass/Vol]24 mg/dLAdena Fayette Medical CenterCreatinine [Mass/volume] in Serum or PlasmaOrdered By: Renny Walton on 18-24-4006Hzurfnsarx [Mass/Vol]0.62 mg/dL0.60-1.20A[facility] Medical CenterEosinophils Auto (Bld) [#/Vol] Ordered By: Renny Walton on 26-00-5160Aoveicactli (Bld) [#/Vol]0.1 10*3/uL0.0-0.45 [facility] CenterEosinophils/100 WBC Auto (Bld)Ordered By: Renny Walton on 21-50-1083Ncfntqjaoxr/100 WBC (Bld)2.3 %.[facility] Medical CenterErythrocyte distribution width Auto (RBC) [Ratio]Ordered By: Renny Walton on 37-09-1156Jrozxovsgej distribution width (RBC) [Ratio]13.6 %11.9-15.3FBethesda North HospitalGlucose [Mass/volume] in Serum or PlasmaOrdered By: Renny Walton on 92-73-8681Goikyxe [Mass/Vol]103 mg/lZNgyi41-667DlykbnauiAdena Fayette Medical CenterComment on above:ADA recommended reference rangeGlucose mean value [Mass/volume] in Blood Estimated from glycated hemoglobinOrdered By: Renny Walton on 67-90-8380Zmhniml glucose Estimated from glycated hemoglobin (Bld) [Mass/Vol]111 mg/dLAdena Fayette Medical CenterHematocrit Auto (Bld) [Volume fraction]Ordered By: Renny Walton on [id number] (Bld) [Volume fraction]42.1 %34.0-46.4FBethesda North HospitalHemoglobin [Mass/volume] in BloodOrdered By: Renny Walton on [id number] (Bld) [Mass/Vol]13.9 g/dL11.8-15.4FBethesda North HospitalLaboratory - Hematology and Cell countsOrdered By: Renny Walton on 01-53-9954OfH5z (Bld) [Mass fraction]5.5 %4.3-5.6FBethesda North HospitalComment on above:Increased risk for diabetes: 5.7 - 6.4diabetes: >6.4glycemic control for adults with diabetes: <7.0Leukocytes [#/volume] corrected for nucleated erythrocytes in Blood by Automated counOrdered By: Renny Walton on 18-36-7575SEO corrected for nucl RBC Auto (Bld) [#/Vol]5.8 10*3/uL3.8-11.6FBethesda North Hospital Lymphocytes Auto (Bld) [#/Vol]Ordered By: Renny Walton on 40-60-8881Gjnruwcaqfg (Bld) [#/Vol]2.0 10*3/uL1.00-4.8[facility] CenterLymphocytes/100 WBC Auto (Bld)Ordered By: Renny Walton on 04-09-0920Kkvrnurlgzv/100 WBC (Bld)34.5 %.[facility] CenterMCH Auto (RBC) [Entitic mass]Ordered By: Renny Walton on 06-01-9087CPW (RBC) [Entitic mass]29.7 pg24.7-34.3FBethesda North HospitalMCHC Auto (RBC) [Mass/Vol]Ordered By: Renny Walton on 35-60-6110AEWX (RBC) [Mass/Vol]32.9 g/dL32.0-35.0[facility] CenterMCV Auto (RBC) [Entitic vol]Ordered By: Renny Walton on 36-67-2353EDJ (RBC) [Entitic vol]90.2 tV90-865WcxbbomilAdena Fayette Medical CenterMonocytes Auto (Bld) [#/Vol]Ordered By: Renny Walton on 23-89-5653Ickyhtlqp (Bld) [#/Vol]0.5 10*3/uL 0.0-0.8[facility] CenterMonocytes/100 WBC Auto (Bld)Ordered By: Renny Walton on 97-17-7169Huylsgahv/100 WBC (Bld)8.0 %.[facility] CenterNeutrophils Auto (Bld) [#/Vol]Ordered By: Renny Walton on 11-13-2023 Neutrophils (Bld) [#/Vol]3.1 10*3/uL1.8-7.7FBethesda North Hospital Neutrophils/100 WBC Auto (Bld)Ordered By: Renny Walton on 11-13-2023 Neutrophils/100 WBC (Bld)54.1 %.[facility] CenterNo Panel InformationOrdered By: Renny Walton on 77-40-6679Lzgfggzof GFR (CKD-EPI)> 60.0 mL/MinAdena Fayette Medical CenterPharmacy Creatinine Clearance (ChemN/A [facility] CenterNucleated erythrocytes [Presence] in Blood by Automated countOrdered By: Renny Walton on 84-99-6369Hoxdffxcm RBC Auto Ql (Bld) 0.1 /100{WBC}0-0.5FBethesda North HospitalPlatelet mean volume Auto (Bld) [Entitic vol]Ordered By: Renny Walton on 28-79-8071Pijsniak mean volume (Bld) [Entitic vol]7.0 fL6.3-10.7FBethesda North HospitalPlatelets Auto (Bld) [#/Vol]Ordered By: Renny Walton on 88-39-6291Zfwiaxmxm (Bld) [#/Vol]276 10*3/mD769-968BagsumjrxAdena Fayette Medical CenterPotassium [Moles/volume] in Serum or PlasmaOrdered By: Renny Walton on 79-21-0209Ifpyzfmeq [Moles/Vol]4.1 mmol/L 3.5-5.1FBethesda North HospitalRBC Auto (Bld) [#/Vol]Ordered By: Renny Walton on 29-10-0440PKA (Bld) [#/Vol]4.67 10*6/uL3.60-5.00[facility] Hospitalerum or plasma anion gap determinationOrdered By: Renny Walton on 23-82-1165Fcubc gap [Moles/Vol]10.0 mmol/L6.0-15.0[facility] Hospitalerum or plasma high density lipoprotein (HDL) cholesterol measurement Ordered By: Renny Walton on 43-51-4941Cvokidfiwsh in HDL [Mass/Vol]51 mg/dL23-92 [facility] CenterComment on above:HDL CHOL ATP-III CLASSIFICATION Cardiovascular RiskHDL > or equal to 60 mg/dL LOWHDL < 40 mg/dL HIGHSerum or plasma total cholesterol/high density lipoprotein (HDL) cholesterol mass ratOrdered By: Renny Walton on 21-86-3399Rieeobeyaal.total/Cholesterol in HDL [Mass ratio]3.4 {ratio}<5.0[facility] Hospitalodium [Moles/volume] in Serum or PlasmaOrdered By: Renny Walton on 61-77-7179Ludpar [Moles/Vol]141 mmol/Z671-729KccevbacnAdena Fayette Medical CenterThyrotropin [Units/volume] in Serum or PlasmaOrdered By: Renny Walton on 59-71-2775UJV Qn1.75 m[IU]/L0.45-5.33[facility] CenterTriglyceride [Mass/volume] in Serum or PlasmaOrdered By: Renny Walton on 10-26-8932Hhybhsqenpao [Mass/Vol]123 mg/dL0-149[facility] CenterComment on above:TRIG ATP III CLASSIFICATIONTRIG less than 150 mg/dL NormalTRIG 150-199 mg/dL Borderline highTRIG 200-500 mg/dL High TRIG greater than 500 mg/dL Very highStandard traceable to the Center for Disease Conrtrol and Prevention (CDC) test method. Urea nitrogen [Mass/volume] in Serum or PlasmaOrdered By: Renny Walton on 08-82-1183Ulfg nitrogen [Mass/Vol]24 mg/dL7-25[facility] WBC Auto (Bld) [#/Vol]Ordered By: Renny Walton on 63-37-7276RWD (Bld) [#/Vol]5.8 10*3/uL3.8-11.6FBethesda North HospitalA1C HEMOGLOBINon 25-34-9733YyH6a (Bld) [Mass fraction]5.6 %[employer] Other HbA1c (Bld) [Mass fraction]on 00-50-0112M8O HEMOGLOBIN [employer] Other CT ANGIO CORONARY ART WITH HEARTFLOW IF SCORE >30%on 47-86-1263NI ANGIO CORONARY ART WITH HEARTFLOW IF SCORE [...] STRUCTURES ARE THE SOLE RESPONSIBILITY OF THE SOCIOLOGY INSTRUCTOR SUBMITTING THE ORIGINAL REPORT (NOT THIS ADDENDUM) Signed by: Shai Tolentino 03/14/2023 1:47 PM -------- ORIGINAL REPORT -------- Dictation workstation: [id number] Interpreted By: Anthony Yo, STUDY: CT ANGIO CORONARY ART WITH HEARTFLOW IF SCORE >30%; 03/14/2023 12:00 pm INDICATION: Signs/Symptoms:r07.9. COMPARISON: None. ACCESSION NUMBER(S): [id number] ORDERING CLINICIAN: KAJAL LOERA TECHNIQUE: Using multi-detector [...] coronary artery dise (more content not included)...Normal [facility] HospitalComment on above:Order Comment: Order in aemr prep given pt to obtain lab orderCT CARDIAC SCORING WO IV CONTRASTon [id number] CARDIAC SCORING WO IV CONTRASTInterpreted By: Shai [...] STRUCTURES ARE THE SOLE RESPONSIBILITY OF THE SOCIOLOGY INSTRUCTOR SUBMITTING THE ORIGINAL REPORT (NOT THIS ADDENDUM) Signed by: Shai Tolentino 02/17/2023 2:28 PM -------- ORIGINAL REPORT -------- Dictation workstation: [id number] Interpreted By: Anthony Yo, STUDY: CT CARDIAC SCORING WO IV CONTRAST; 02/14/2023 9:00 am INDICATION: Signs/Symptoms:chest pain. COMPARISON: None. ACCESSION NUMBER(S): [id number] ORDERING CLINICIAN: ANNELIESE HOYT TECHNIQUE: Using prospective [...] coronary heart disease events. According to the [employer] Clinical Expert Consensus [...] P et al. Circulation. 2007; 115:402-426 Reading Physician Industrial: Dr. Anthony Yo, Date: 02/14/2023 10:23 am Signed by: Anthony Yo 02/14/2023 10:23 AM Dictation workstation: [id number] Reserve HospitalCalcium [Mass/volume] in Serum or PlasmaOrdered By: Nabil Saxenasojohn on 93-48-5974Ieubvhk [Mass/Vol]9.1 mg/dL8.6-10.3FBethesda North Hospital Carbon dioxide, total [Moles/volume] in Serum or PlasmaOrdered By: Nabil Wassojohn on 94-51-7252IE3 [Moles/Vol]25.7 mmol/L21.0-31.0[facility] CenterChloride [Moles/volume] in Serum or PlasmaOrdered By: Nabil Wassouf on 24-45-9585Dzkmfgtb [Moles/Vol]108 mmol/B30-636HxkzddxkgAdena Fayette Medical CenterCholesterol [Mass/volume] in Serum or PlasmaOrdered By: Nabil Wassouf on 26-38-4193Vuyioznxdqb [Mass/Vol]122 mg/hV451-761PwghyhrlhAdena Fayette Medical CenterComment on above:Chol less than 200 mg/dl low riskChol 201-239 mg/dl borderline riskChol 240 mg/dl and greater high riskCholesterol in LDL Calc [Mass/Vol]Ordered By: Nabil Wassouf on 49-71-2125Vjyeilyeiap in LDL [Mass/Vol] 67 mg/dL0-100[facility] CenterComment on above:LDL ATP III CLASSIFICATIONLDL less than 100 mg/dL OptimalLDL 100-129 mg/dL Near or above sehmfqdKBZ918-206 mg/dL Borderline highLDL 160-189 mg/dL HighLDL greater than 189 mg/dL Very highCholesterol in VLDL Calc [Mass/Vol]Ordered By: Nabil Baker on 08-32-1041Unmomtxxucd in VLDL [Mass/Vol]15 mg/dLAdena Fayette Medical CenterCreatinine [Mass/volume] in Serum or PlasmaOrdered By: Nabil Baker on 97-61-2393Bcmctmdblo [Mass/Vol]0.83 mg/dL0.60-1.20[facility] CenterGlucose [Mass/volume] in Serum or PlasmaOrdered By: Nabil Baker on 72-26-9355Pcztewf [Mass/Vol]101 mg/yK81-853RullhacuhAdena Fayette Medical Center Comment on above:ADA recommended reference rangeRandom Glucose Reference Range is dependent on time and content of last meal. Glucose of more than 200 mg/dL in a nonstressed, ambulatory subject supports the diagnosisof Diabetes Mellitus. Magnesium [Mass/volume] in Serum or PlasmaOrdered By: Nabil Baker on 36-65-6352Vizhgnvyp [Mass/Vol]2.2 mg/dL1.9-2.7FBethesda North Hospital No Panel InformationOrdered By: Nabil Baker on 58-07-3216Evowpbcqe GFR (CKD-EPI)> 60.0 mL/MinAdena Fayette Medical CenterPharmacy Creatinine Clearance (Chem87.71[facility] CenterPotassium [Moles/volume] in Serum or PlasmaOrdered By: Nabil Baker on 21-67-7929Bpanwecif [Moles/Vol]3.6 mmol/L3.5-5.1FOhioHealth Grant Medical Centererum or plasma anion gap determinationOrdered By: Nabil Baker on 19-75-1396Dlwzf gap [Moles/Vol]10.9 mmol/L6.0-15.0[facility] Hospitalerum or plasma high density lipoprotein (HDL) cholesterol measurementOrdered By: Nabil Baker on 83-58-5630Ijbuvmzzmup in HDL [Mass/Vol]39 mg/xW65-67KrdrsbdpmAdena Fayette Medical CenterComment on above:HDL CHOL ATP-III CLASSIFICATION Cardiovascular RiskHDL > or equal to 60 mg/dL LOWHDL < 40 mg/dL HIGHSerum or plasma total cholesterol/high density lipoprotein (HDL) cholesterol mass ratOrdered By: Nabil Baker on 49-37-9216Jwhslqvnzgh.total/Cholesterol in HDL [Mass ratio]3.1 {ratio}<5.0[facility] Hospitalodium [Moles/volume] in Serum or PlasmaOrdered By: Nabil Baker on 44-57-5002Boiahw [Moles/Vol]141 mmol/L 136-145[facility] CenterTriglyceride [Mass/volume] in Serum or PlasmaOrdered By: Nabil Baker on 94-68-5194Mkesuzqvckex [Mass/Vol]78 mg/dL 0-149[facility] CenterComment on above:TRIG ATP III CLASSIFICATIONTRIG less than 150 mg/dL NormalTRIG 150-199 mg/dL Borderline highTRIG 200-500 mg/dL High TRIG greater than 500 mg/dL Very highStandard traceable to the Center for Disease Conrtrol and Prevention (CDC) test method. Troponin I.cardiac [Mass/volume] in Serum or Plasma by Detection limit <= 0.01 ng/Ordered By: Nabil Baker on 54-45-2035Tiufqckj I.cardiac DL <= 0.01 ng/mL [Mass/Vol]8.5 pg/mL0.0-15.0[facility] CenterUrea nitrogen [Mass/volume] in Serum or PlasmaOrdered By: Nabil Baker on 20-13-2664Ltge nitrogen [Mass/Vol]25 mg/dL7-[facility] CenterActivated partial thromboplastin time (aPTT) in platelet poor plasma by coagulation a Ordered By: Erika Escobedo on 79-39-4504mSSJ Coag (PPP) [Time]20.6 s25.1-36.5 [facility] CenterAlanine aminotransferase [Enzymatic activity/volume] in Serum or PlasmaOrdered By: Erika Escobedo on 89-56-5535BSR [Catalytic activity/Vol]25 U/L7-52[facility] CenterAlbumin [Mass/volume] in Serum or Plasma by Bromocresol green (BCG) dye binding metho Ordered By: Erika Escobedo on 55-27-1945Jexamoa BCG dye [Mass/Vol]4.1 g/dL 3.5-5.7FBethesda North HospitalAlkaline phosphatase [Enzymatic activity/volume] in Serum or PlasmaOrdered By: Erika Escobedo on 35-92-8866NFT [Catalytic activity/Vol]55 U/Q03-755LephwgdluAdena Fayette Medical CenterAspartate aminotransferase [Enzymatic activity/volume] in Serum or PlasmaOrdered By: Erika Escobedo on 59-61-1469POA [Catalytic activity/Vol]20 U/A07-13RhlfaespnAdena Fayette Medical CenterBasophils Auto (Bld) [#/Vol]Ordered By: Erika Escobedo on 95-66-6420Ydpysopri (Bld) [#/Vol]0.1 10*3/uL0.0-0.2FBethesda North HospitalBasophils/100 WBC Auto (Bld)Ordered By: Eirka Escobedo on 01-03-2023 Basophils/100 WBC (Bld)1.0 %.[facility] CenterBilirubin Test strip Ql (U)Ordered By: Erika Escobedo on 82-84-5881Iracduxon Ql (U)Negative NegativeAdena Fayette Medical CenterBilirubin.total [Mass/volume] in Serum or PlasmaOrdered By: Erkia Escobedo on 61-04-8356Mhfvddpcn [Mass/Vol]0.4 mg/dL 0.3-1.0[facility] CenterCalcium [Mass/volume] in Serum or Plasma Ordered By: Erika Escobedo on 04-59-6472Yopngsy [Mass/Vol]9.3 mg/dL8.6-10.3 [facility] CenterCarbon dioxide, total [Moles/volume] in Serum or PlasmaOrdered By: Erika Escobedo on 76-86-0352JF9 [Moles/Vol]24.5 mmol/L 21.0-31.0[facility] CenterChloride [Moles/volume] in Serum or PlasmaOrdered By: Erika Escobedo on 70-74-2730Xxpqjdpf [Moles/Vol]106 mmol/L 98-107[facility] CenterColor Auto (U)Ordered By: Erika Escobedo on 02-04-3060Lmyqu (U)YellowYellowAdena Fayette Medical CenterCreatine kinase [Enzymatic activity/volume] in Serum or PlasmaOrdered By: Erika Escobedo on 01-90-5703JO [Catalytic activity/Vol]31 U/O15-157UayzkzcnfAdena Fayette Medical CenterCreatinine [Mass/volume] in Serum or PlasmaOrdered By: Erika Escobedo on 98-65-9294Kmmunymxyo [Mass/Vol]0.82 mg/dL0.60-1.20[facility] CenterEosinophils Auto (Bld) [#/Vol]Ordered By: Erika Escobedo on 01-03-2023 Eosinophils (Bld) [#/Vol]0.1 10*3/uL0.0-0.45[facility] Eosinophils/100 WBC Auto (Bld)Ordered By: Erika Escobedo on 01-03-2023 Eosinophils/100 WBC (Bld)0.7 %.[facility] CenterErythrocyte distribution width Auto (RBC) [Ratio]Ordered By: Erika Escobedo on 01-03-2023 Erythrocyte distribution width (RBC) [Ratio]12.8 %11.9-15.3FBethesda North HospitalGlobulin Calc (S) [Mass/Vol]Ordered By: Erika Escobedo on 24-84-6668Iugrenyh (S) [Mass/Vol]3.3 g/dLAdena Fayette Medical Center Glucose [Mass/volume] in Serum or PlasmaOrdered By: Erika Escobedo on 01-03-2023 Glucose [Mass/Vol]107 mg/sP92-555LwbgyuavvAdena Fayette Medical CenterComment on above:ADA recommended reference rangeRandom Glucose Reference Range is dependent on time and content of last meal. Glucose of more than 200 mg/dL in a nonstressed, ambulatory subject supports the diagnosisof Diabetes Mellitus. Hematocrit Auto (Bld) [Volume fraction]Ordered By: Erika Escobedo on 01-03-2023 Hematocrit (Bld) [Volume fraction]43.7 %34.0-46.4FBethesda North HospitalHemoglobin [Mass/volume] in BloodOrdered By: Erika Escobedo on 01-03-2023 Hemoglobin (Bld) [Mass/Vol]14.7 g/dL11.8-15.4FBethesda North Hospital INR in Platelet poor plasma by Coagulation assayOrdered By: Erika Escobedo on 66-75-7248DQF Coag (PPP) [Relative time]1.1 {INR}[facility] CenterComment on above:INR Therapeutic Range A) [...] strip (U) [Mass/Vol]Ordered By: Erika Escobedo on 04-58-9945Hwskkwf (U) [Mass/Vol]NegativeNegativeAdena Fayette Medical CenterLaboratory - CoagulationOrdered By: Erika Escobedo on 30-86-1078EK Coag (PPP) [Time]12.7 s9.0-12.9[facility] CenterLeukocytes [#/volume] corrected for nucleated erythrocytes in Blood by Automated coun Ordered By: Erika Escobedo on 63-28-8500PCC corrected for nucl RBC Auto (Bld) [#/Vol]8.2 10*3/uL3.8-11.6FBethesda North HospitalLymphocytes Auto (Bld) [#/Vol]Ordered By: Erika Escobedo on 39-33-3850Ihrggpflxnd (Bld) [#/Vol] 1.2 10*3/uL1.00-4.8[facility] CenterLymphocytes/100 WBC Auto (Bld)Ordered By: Erika Escobedo on 28-79-6655Ydamldlciew/100 WBC (Bld)15.0 %. [facility] Auto (RBC) [Entitic mass]Ordered By: Erika Escobedo on 93-28-1134VOM (RBC) [Entitic mass]30.3 pg24.7-34.3FBethesda North HospitalMCHC Auto (RBC) [Mass/Vol]Ordered By: Erika Escobedo on 01-03-2023 MCHC (RBC) [Mass/Vol]33.6 g/dL32.0-35.0[facility] CenterMCV Auto (RBC) [Entitic vol]Ordered By: Erika Escobedo on 21-76-9742LMZ (RBC) [Entitic vol]90.2 jS75-905CaaullezxAdena Fayette Medical CenterMonocyte distribution width [Entitic volume] in Blood by AutomatedOrdered By: Erika Escobedo on 01-03-2023 Monocyte distribution width Auto (Bld) [Entitic vol]22.07 %0.00-20.00[facility] CenterComment on above:For adults in ED, MDW > 20.0 may be associated with a higher risk of sepsis during the first 12 hrs of hospital admissionMonocytes Auto (Bld) [#/Vol]Ordered By: Erika Escobedo on 01-03-2023 Monocytes (Bld) [#/Vol]0.7 10*3/uL0.0-0.8[facility] Monocytes/100 WBC Auto (Bld)Ordered By: Erika Escobedo on 01-03-2023 Monocytes/100 WBC (Bld)8.4 %.[facility] CenterNatriuretic peptide B [Mass/Vol]Ordered By: Erika Escobedo on 15-86-6024Enepqamfzwp peptide B (Bld) [Mass/Vol]19.0 pg/mL5-100[facility] CenterNeutrophils Auto (Bld) [#/Vol]Ordered By: Erika Escobedo on 04-06-3144Uqicveeroiq (Bld) [#/Vol]6.2 10*3/uL1.8-7.7FBethesda North HospitalNeutrophils/100 WBC Auto (Bld)Ordered By: Erika Escobedo on 50-78-9955Qklrohifcqo/100 WBC (Bld)74.9 %.[facility] CenterNitrite Test strip Ql (U)Ordered By: Erika Escobedo on 14-27-7056Ybtbmog Ql (U)NegativeNegativeAdena Fayette Medical CenterNo Panel InformationOrdered By: Erika Escobedo on 98-48-7778Caynyural GFR (CKD-EPI)> 60.0 mL/MinAdena Fayette Medical CenterPharmacy Creatinine Clearance (Chem89.05[facility] CenterNucleated erythrocytes [Presence] in Blood by Automated countOrdered By: Erika Escobedo on 01-03-2023 Nucleated RBC Auto Ql (Bld)0.1 /100{WBC}0-0.5FBethesda North Hospital Platelet mean volume Auto (Bld) [Entitic vol]Ordered By: Erika Escobedo on 15-58-2327Yyflcdvo mean volume (Bld) [Entitic vol]7.2 fL6.3-10.7FBethesda North HospitalPlatelets Auto (Bld) [#/Vol]Ordered By: Erika Escobedo on 78-15-6834Ejynnlzbk (Bld) [#/Vol]270 10*3/nO651-306QepsnwzlvAdena Fayette Medical CenterPotassium [Moles/volume] in Serum or PlasmaOrdered By: Erika Escobedo on 21-85-3450Lrllcefyd [Moles/Vol]3.5 mmol/L3.5-5.1FBethesda North HospitalProtein Auto test strip (U) [Mass/Vol]Ordered By: Erika Escobedo on 53-82-6673Txnqdrw (U) [Mass/Vol]NegativeNegativeAdena Fayette Medical CenterProtein [Mass/volume] in Serum or PlasmaOrdered By: Erika Escobedo on 60-48-7406Jtycefq [Mass/Vol]7.4 g/dL6.4-8.9[facility] CenterRBC Auto (Bld) [#/Vol]Ordered By: Erika Escobedo on 17-30-1876KAB (Bld) [#/Vol]4.84 10*6/uL3.60-5.00[facility] Hospitalerum or plasma albumin/globulin mass ratioOrdered By: Erika Escobedo on 01-03-2023 Albumin/Globulin [Mass ratio]1.2 {ratio}[facility] Hospitalerum or plasma anion gap determinationOrdered By: Erika Escobedo on 42-35-0030Kueqv gap [Moles/Vol]11.0 mmol/L6.0-15.0[facility] Hospitalodium [Moles/volume] in Serum or PlasmaOrdered By: Erika Escobedo on 57-05-9214Cqeudl [Moles/Vol]138 mmol/E658-438SdnvuevkvMercy Health Anderson Hospitalpecific gravity Auto test strip (U) [Rel density]Ordered By: Erika Escobedo on 01-03-2023 Specific gravity (U) [Rel density]1.0241.001-1.030[facility] CenterTroponin I.cardiac [Mass/volume] in Serum or Plasma by Detection limit <= 0.01 ng/Ordered By: Erika Escobedo on 48-11-4682Onjfeeul I.cardiac DL <= 0.01 ng/mL [Mass/Vol]13.3 pg/mL0.0-15.0[facility] CenterUrea nitrogen [Mass/volume] in Serum or PlasmaOrdered By: Erika Escobedo on 52-32-7497Jvna nitrogen [Mass/Vol]29 mg/dL7-25[facility] CenterUrine clarity by refractometry automatedOrdered By: Erika Escobedo on 32-45-3199Icigffd Refractometry automated (U)ClearCleThe Bellevue HospitalUrine glucose measurement by automated test strip (mass/volume)Ordered By: Erika Escobedo on 72-61-8038Oelawpb Auto test strip (U) [Mass/Vol]Normal mg/dLNoSelect Medical Specialty Hospital - Cleveland-FairhillUrine hemoglobin detection by automated test stripOrdered By: Erika Escobedo on 41-40-5567Esqbuudnig Auto test strip Ql (U) NegativeNegMercy Health Willard HospitalUrine leukocyte esterase detection by automated test stripOrdered By: Erika Escobedo on 01-03-2023 Leukocyte esterase Auto test strip Ql (U)NegativeNegMercy Health Willard HospitalUrobilinogen Auto test strip (U) [Mass/Vol]Ordered By: Erika Escobedo on 87-37-5477Slkalpsvtgkv (U) [Mass/Vol]Normal mg/dLNormProvidence HospitalWBC Auto (Bld) [#/Vol]Ordered By: Erika Escobedo on 12-38-3203DOG (Bld) [#/Vol]8.2 10*3/uL3.8-11.6FBethesda North Hospital pH Auto test strip (U)Ordered By: Erika Escobedo on 42-73-1395vB (U)6.5 [pH] 5.0-9.0[facility] CenterAlanine aminotransferase [Enzymatic activity/volume] in Serum or PlasmaOrdered By: Renny Walton on 61-14-2186IMU [Catalytic activity/Vol]30 U/L7-52[facility] CenterAlbumin [Mass/volume] in Serum or Plasma by Bromocresol green (BCG) dye binding metho Ordered By: Renny Walton on 10-78-0886Nhpeawd BCG dye [Mass/Vol]4.3 g/dL3.5-5.7 [facility] CenterAlkaline phosphatase [Enzymatic activity/volume] in Serum or PlasmaOrdered By: Renny Walton on 36-29-3858NFQ [Catalytic activity/Vol]53 U/W71-732ZrtlgtcjbAdena Fayette Medical CenterAspartate aminotransferase [Enzymatic activity/volume] in Serum or PlasmaOrdered By: Renny Walton on 37-18-3171UYO [Catalytic activity/Vol]19 U/F58-35SzqypbhwkAdena Fayette Medical CenterBasophils Auto (Bld) [#/Vol]Ordered By: Renny Walton on 11-08-2022 Basophils (Bld) [#/Vol]0.1 10*3/uL0.0-0.2FBethesda North Hospital Basophils/100 WBC Auto (Bld)Ordered By: Renny Walton on 89-41-8620Sdszkimth/100 WBC (Bld)1.0 %.[facility] CenterBilirubin.total [Mass/volume] in Serum or PlasmaOrdered By: Renny Walton on 43-57-9068Nzyiuiljx [Mass/Vol]0.7 mg/dL0.3-1.0[facility] CenterCalcium [Mass/volume] in Serum or PlasmaOrdered By: Renny Walton on 09-65-3313Bdchjpf [Mass/Vol]9.1 mg/dL8.6-10.3 [facility] CenterCarbon dioxide, total [Moles/volume] in Serum or PlasmaOrdered By: Renny Walton on 00-38-9585IW8 [Moles/Vol]28.2 mmol/L21.0-31.0 [facility] CenterChloride [Moles/volume] in Serum or Plasma Ordered By: Renny Walton on 35-79-2984Strgbpjh [Moles/Vol]106 mmol/L98-107 [facility] CenterCholesterol [Mass/volume] in Serum or Plasma Ordered By: Renny Walton on 23-98-9401Hjrpkhiyfoe [Mass/Vol]167 mg/oV918-477 [facility] CenterComment on above:Chol less than 200 mg/dl low riskChol 201-239 mg/dl borderline riskChol 240 mg/dl and greater high risk Cholesterol in LDL Calc [Mass/Vol]Ordered By: Renny Walton on 11-08-2022 Cholesterol in LDL [Mass/Vol]91 mg/dL0-100[facility] Comment on above:LDL ATP III CLASSIFICATIONLDL less than 100 mg/dL OptimalLDL 100-129 mg/dL Near or above wuubyhrPBB239-008 mg/dL Borderline highLDL 160-189 mg/dL HighLDL greater than 189 mg/dL Very highCholesterol in VLDL Calc [Mass/Vol]Ordered By: Renny Walton on 40-30-4054Ghwceeuflaf in VLDL [Mass/Vol]20 mg/dLAdena Fayette Medical CenterCreatinine [Mass/volume] in Serum or PlasmaOrdered By: Renny Walton on 70-08-7412Knnnkrqivc [Mass/Vol]0.63 mg/dL 0.60-1.20[facility] CenterEosinophils Auto (Bld) [#/Vol]Ordered By: Renny Walton on 21-00-6632Jlvtsbbfzly (Bld) [#/Vol]0.1 10*3/uL0.0-0.45 [facility] CenterEosinophils/100 WBC Auto (Bld)Ordered By: Renny Walton on 06-45-7115Hjqogklewsj/100 WBC (Bld)1.0 %.[facility] CenterErythrocyte distribution width Auto (RBC) [Ratio]Ordered By: Renny Walton on 31-76-2298Ujetttyraol distribution width (RBC) [Ratio]13.1 %11.9-15.3FBethesda North HospitalGlobulin Calc (S) [Mass/Vol]Ordered By: Renny Walton on 03-26-9116Yzjhnetf (S) [Mass/Vol]2.9 g/dLAdena Fayette Medical Center Glucose [Mass/volume] in Serum or PlasmaOrdered By: Renny Walton on 11-08-2022 Glucose [Mass/Vol]110 mg/yJ44-352BdvefppqfAdena Fayette Medical CenterComment on above:ADA recommended reference rangeGlucose mean value [Mass/volume] in Blood Estimated from glycated hemoglobinOrdered By: Renny Walton on 93-12-4829Efqpwvx glucose Estimated from glycated hemoglobin (Bld) [Mass/Vol]114 mg/dLAdena Fayette Medical CenterHematocrit Auto (Bld) [Volume fraction]Ordered By: Renny Walton on 04-79-6366Asckngaybi (Bld) [Volume fraction]42.2 %34.0-46.4FBethesda North HospitalHemoglobin [Mass/volume] in BloodOrdered By: Renny Walton on 47-27-5597Fnkflujgmw (Bld) [Mass/Vol]14.2 g/dL11.8-15.4FBethesda North HospitalLaboratory - Hematology and Cell countsOrdered By: Renny Walton on 02-68-1605KuG9v (Bld) [Mass fraction]5.6 %4.3-5.6FBethesda North HospitalComment on above:Increased risk for diabetes: 5.7 - 6.4diabetes: >6.4glycemic control for adults with diabetes: <7.0Leukocytes [#/volume] corrected for nucleated erythrocytes in Blood by Automated counOrdered By: Renny Walton on 94-85-1011TUC corrected for nucl RBC Auto (Bld) [#/Vol]7.0 10*3/uL 3.8-11.6FBethesda North HospitalLymphocytes Auto (Bld) [#/Vol]Ordered By: Renny Walton on 44-78-3918Ltibyytumcb (Bld) [#/Vol]1.9 10*3/uL1.00-4.8 [facility] CenterLymphocytes/100 WBC Auto (Bld)Ordered By: Renny Walton on 92-40-2796Injvpbbrzle/100 WBC (Bld)26.9 %.[facility] Auto (RBC) [Entitic mass]Ordered By: Renny Walton on 64-66-6502KSG (RBC) [Entitic mass]30.8 pg24.7-34.3FBethesda North HospitalMCHC Auto (RBC) [Mass/Vol]Ordered By: Renny Walton on 24-94-6014JBWK (RBC) [Mass/Vol]33.5 g/dL 32.0-35.0[facility] CenterMCV Auto (RBC) [Entitic vol]Ordered By: Renny Walton on 94-42-1939EXX (RBC) [Entitic vol]91.7 gF53-190OyiuporrjAdena Fayette Medical CenterMonocytes Auto (Bld) [#/Vol]Ordered By: Renny Walton on 32-32-2643Xkhirclwc (Bld) [#/Vol]0.5 10*3/uL0.0-0.8[facility] CenterMonocytes/100 WBC Auto (Bld)Ordered By: Renny Walton on 11-08-2022 Monocytes/100 WBC (Bld)7.0 %.[facility] CenterNeutrophils Auto (Bld) [#/Vol]Ordered By: Renny Walton on 38-28-8850Esgxgsddtqg (Bld) [#/Vol]4.5 10*3/uL1.8-7.7FBethesda North HospitalNeutrophils/100 WBC Auto (Bld) Ordered By: Renny Walton on 54-67-5784Qsosdkhruwm/100 WBC (Bld)64.1 %.[facility] CenterNo Panel InformationOrdered By: Renny Walton on 11-08-2022 Estimated GFR (CKD-EPI)> 60.0 mL/MinAdena Fayette Medical CenterNicotine MetaboliteNegativeCutoff=25[facility] CenterComment on above: Performed at: BN - [facility] [address] [id number] Director: Merary Mccartney MD, Phone: [phone] Creatinine Clearance (ChemN/[facility] HospitalNucleated erythrocytes [Presence] in Blood by Automated countOrdered By: Renny Walton on 11-08-2022 Nucleated RBC Auto Ql (Bld)0.1 /100{WBC}0-0.5FBethesda North Hospital Platelet mean volume Auto (Bld) [Entitic vol]Ordered By: Renny Walton on 95-66-0705Fkhwrzsy mean volume (Bld) [Entitic vol]7.0 fL6.3-10.7FBethesda North HospitalPlatelets Auto (Bld) [#/Vol]Ordered By: Renny Walton on 57-43-1670Uzpqzgyjs (Bld) [#/Vol]304 10*3/gX436-334AoaczdkbgAdena Fayette Medical CenterPotassium [Moles/volume] in Serum or PlasmaOrdered By: Renny Walton on 78-38-0825Igmxewnfz [Moles/Vol]3.9 mmol/L3.5-5.1FBethesda North HospitalProtein [Mass/volume] in Serum or PlasmaOrdered By: Renny Walton on 51-57-4308Zmuvnxp [Mass/Vol]7.2 g/dL6.4-8.9[facility] CenterRBC Auto (Bld) [#/Vol]Ordered By: Renny Walton on 78-24-3124QMK (Bld) [#/Vol]4.60 10*6/uL3.60-5.00[facility] Hospitalerum or plasma albumin/globulin mass ratioOrdered By: Renny Walton on 26-19-8914Ilsjdaj/Globulin [Mass ratio]1.5 {ratio}[facility] Hospitalerum or plasma anion gap determinationOrdered By: Renny Walton on 98-64-8480Jepcb gap [Moles/Vol]11.7 mmol/L6.0-15.0[facility] Hospitalerum or plasma high density lipoprotein (HDL) cholesterol measurementOrdered By: Renny Walton on 11-08-2022 Cholesterol in HDL [Mass/Vol]55 mg/mZ56-29IzgxwmtmsAdena Fayette Medical Center Comment on above:HDL CHOL ATP-III CLASSIFICATION Cardiovascular RiskHDL > or equal to 60 mg/dL LOWHDL < 40 mg/dL HIGHSerum or plasma total cholesterol/high density lipoprotein (HDL) cholesterol mass ratOrdered By: Renny Walton on 88-07-5267Kpgnbbdfzlc.total/Cholesterol in HDL [Mass ratio]3.0 {ratio}<5.0 [facility] Hospitalodium [Moles/volume] in Serum or PlasmaOrdered By: Renny Walton on 64-43-5710Duvgaq [Moles/Vol]142 mmol/J275-588YguyohkdoAdena Fayette Medical CenterThyrotropin [Units/volume] in Serum or PlasmaOrdered By: Renny Walton on 36-29-9826ZFX Qn2.88 m[IU]/L0.45-5.33[facility] CenterTriglyceride [Mass/volume] in Serum or PlasmaOrdered By: Renny Walton on 82-11-9915Enskzwdwcdwf [Mass/Vol]103 mg/dL0-149[facility] Comment on above:TRIG ATP III CLASSIFICATIONTRIG less than 150 mg/dL NormalTRIG 150-199 mg/dL Borderline highTRIG 200-500 mg/dL High TRIG greater than 500 mg/dL Very highStandard traceable to the Center for Disease Conrtrol and Prevention (CDC) test method.Urea nitrogen [Mass/volume] in Serum or PlasmaOrdered By: Renny Walton on 67-94-5194Minx nitrogen [Mass/Vol]17 mg/dL7-25[facility] CenterWBC Auto (Bld) [#/Vol]Ordered By: Renny Walton on 88-45-2635WUM (Bld) [#/Vol]7.0 10*3/uL3.8-11.6FBethesda North HospitalAlanine aminotransferase [Enzymatic activity/volume] in Serum or PlasmaOrdered By: Rafael Salamanca on 16-26-2579CVV [Catalytic activity/Vol]37 U/L7-52[facility] CenterAlbumin [Mass/volume] in Serum or Plasma by Bromocresol green (BCG) dye binding methoOrdered By: Rafael Salamanca on 17-22-1308Fznhwdg BCG dye [Mass/Vol]4.3 g/dL3.5-5.7FBethesda North HospitalAlkaline phosphatase [Enzymatic activity/volume] in Serum or PlasmaOrdered By: Rafael Salamanca on 48-04-1861CCM [Catalytic activity/Vol]56 U/C49-933RnuocqqysAdena Fayette Medical CenterAspartate aminotransferase [Enzymatic activity/volume] in Serum or PlasmaOrdered By: Rafael Salamanca on 36-21-1277MMN [Catalytic activity/Vol]22 U/L 13-39[facility] CenterBasophils Auto (Bld) [#/Vol]Ordered By: Rafael Salamanca on 23-16-9199Buaqnkoqb (Bld) [#/Vol]0.1 10*3/uL0.0-0.2FBethesda North HospitalBasophils/100 WBC Auto (Bld)Ordered By: Rafael Reedangelito on 75-87-4849Uqrpznixs/100 WBC (Bld)0.9 %.[facility] Bilirubin.total [Mass/volume] in Serum or PlasmaOrdered By: Rafael Reedangelito on 43-70-5112Cuvzsygim [Mass/Vol]0.6 mg/dL0.3-1.0[facility] Calcium [Mass/volume] in Serum or PlasmaOrdered By: Rafael Reedangelito on 08-16-2022 Calcium [Mass/Vol]9.4 mg/dL8.6-10.3FBethesda North HospitalCarbon dioxide, total [Moles/volume] in Serum or PlasmaOrdered By: Rafael Reedangelito on 72-16-0445TP0 [Moles/Vol]30.5 mmol/L21.0-31.0[facility] Chloride [Moles/volume] in Serum or PlasmaOrdered By: Rafael Reedangelito on 08-16-2022 Chloride [Moles/Vol]104 mmol/E08-264HtsgectwbAdena Fayette Medical CenterCreatinine [Mass/volume] in Serum or PlasmaOrdered By: Rafael Reedangelito on 29-20-0970Hhkhyabffd [Mass/Vol]0.65 mg/dL0.60-1.20[facility] CenterEosinophils Auto (Bld) [#/Vol]Ordered By: Rafael Reedangelito on 84-05-4416Wgimhjfpaxt (Bld) [#/Vol]0.1 10*3/uL0.0-0.45[facility] CenterEosinophils/100 WBC Auto (Bld) Ordered By: Rafael Cheikh on 77-16-9002Mqgtdzlsglu/100 WBC (Bld)1.1 %.[facility] CenterErythrocyte distribution width Auto (RBC) [Ratio]Ordered By: Rafael Salamanca on 00-03-3996Aabpidkgqbm distribution width (RBC) [Ratio]13.0 % 11.9-15.3FBethesda North HospitalFree thyroxine indexOrdered By: Rafael Salamanca on 60-60-4574Rapy T4 index Calc [Mass/Vol]2.51.2-4.9[facility] CenterGlobulin Calc (S) [Mass/Vol]Ordered By: Rafael Salamanca 03-65-3379Onvjathr (S) [Mass/Vol]3.0 g/dLAdena Fayette Medical Center Glucose [Mass/volume] in Serum or PlasmaOrdered By: Rafael Salamanca on 08-16-2022 Glucose [Mass/Vol]105 mg/iT53-758AqpceyebxAdena Fayette Medical CenterComment on above:ADA recommended reference rangeRandom Glucose Reference Range is dependent on time and content of last meal. Glucose of more than 200 mg/dL in a nonstressed, ambulatory subject supports the diagnosisof Diabetes Mellitus. Hematocrit Auto (Bld) [Volume fraction]Ordered By: Rafael Salamanca on 08-16-2022 Hematocrit (Bld) [Volume fraction]42.3 %34.0-46.4FBethesda North HospitalHemoglobin [Mass/volume] in BloodOrdered By: Rafael Salamanca 08-16-2022 Hemoglobin (Bld) [Mass/Vol]14.2 g/dL11.8-15.4FBethesda North Hospital Iron [Mass/volume] in Serum or PlasmaOrdered By: Rafael Salamanca 97-94-6040Sipx [Mass/Vol]87 ug/pW80-383QsiahlmmpAdena Fayette Medical CenterLeukocytes [#/volume] corrected for nucleated erythrocytes in Blood by Automated counOrdered By: Rafael Salamanca 68-88-2141RVC corrected for nucl RBC Auto (Bld) [#/Vol]7.0 10*3/uL3.8-11.6FBethesda North HospitalLymphocytes Auto (Bld) [#/Vol] Ordered By: Rafael Salamanca 08-95-0331Xiqbgeaoedg (Bld) [#/Vol]1.8 10*3/uL 1.00-4.8[facility] CenterLymphocytes/100 WBC Auto (Bld)Ordered By: Rafael Salamanca on 27-03-0826Rhkhqupwfin/100 WBC (Bld)26.0 %.[facility] ShawH Auto (RBC) [Entitic mass]Ordered By: Rafael Salamanca on 08-16-2022 MCH (RBC) [Entitic mass]30.4 pg24.7-34.3FMetroHealth Parma Medical CenterHC Auto (RBC) [Mass/Vol]Ordered By: Rafael Salamanca on 81-19-8441LRDC (RBC) [Mass/Vol] 33.7 g/dL32.0-35.0[facility] ShawV Auto (RBC) [Entitic vol] Ordered By: Rafael Salamanca on 34-08-9103KCM (RBC) [Entitic vol]90.2 lG00-495 [facility] CenterMagnesium [Mass/volume] in Serum or Plasma Ordered By: Rafael Salamanca on 34-10-3504Eygkpfwpg [Mass/Vol]2.0 mg/dL1.9-2.7 [facility] CenterMonocytes Auto (Bld) [#/Vol]Ordered By: Rafael Salamanca on 69-46-0246Oajlqklas (Bld) [#/Vol]0.5 10*3/uL0.0-0.8[facility] CenterMonocytes/100 WBC Auto (Bld)Ordered By: Rafael Salamanca on 08-16-2022 Monocytes/100 WBC (Bld)7.1 %.[facility] CenterNeutrophils Auto (Bld) [#/Vol]Ordered By: Rafael Salamanca on 78-47-4434Pvenqxhhaei (Bld) [#/Vol]4.5 10*3/uL1.8-7.7FBethesda North HospitalNeutrophils/100 WBC Auto (Bld) Ordered By: Rafael Salamanca on 67-47-1126Clazdobeezp/100 WBC (Bld)64.9 %.[facility] CenterNo Panel InformationOrdered By: Rafael Salamanca on 08-16-2022 Estimated GFR (CKD-EPI)> 60.0 mL/MinAdena Fayette Medical CenterFree Thyroxine (T4) Direct8.8 ug/dL4.5-12.0[facility] CenterPharmacy Creatinine Clearance (ChemN/AFBethesda North HospitalNucleated erythrocytes [Presence] in Blood by Automated countOrdered By: Rafael Salamanca on 30-61-2231Vlhiednpe RBC Auto Ql (Bld)0.0 /100{WBC}0-0.5FBethesda North HospitalPlatelet mean volume Auto (Bld) [Entitic vol]Ordered By: Rafael Salamanca on 70-42-9554Hfhtffhx mean volume (Bld) [Entitic vol]7.3 fL6.3-10.7FBethesda North HospitalPlatelets Auto (Bld) [#/Vol]Ordered By: Rafael Salamanca on 63-01-2319Pfvukxqnt (Bld) [#/Vol]280 10*3/uX756-838QxtswibhtAdena Fayette Medical CenterPotassium [Moles/volume] in Serum or PlasmaOrdered By: Rafael Salamanca on 37-68-8175Azsxhklcc [Moles/Vol]3.6 mmol/L3.5-5.1FBethesda North HospitalProtein [Mass/volume] in Serum or PlasmaOrdered By: Rafael Salamanca on 93-26-4939Nrvvpko [Mass/Vol]7.3 g/dL6.4-8.9[facility] CenterRBC Auto (Bld) [#/Vol]Ordered By: Rafael Salamanca on 49-61-7856XBM (Bld) [#/Vol]4.69 10*6/uL3.60-5.00[facility] Hospitalerum or plasma albumin/globulin mass ratioOrdered By: Rafael Salamanca on 55-89-4465Zaqlqam/Globulin [Mass ratio]1.4 {ratio}[facility] Hospitalerum or plasma anion gap determinationOrdered By: Rafael Salamanca on 16-50-4837Ojpty gap [Moles/Vol]10.1 mmol/L6.0-15.0[facility] Hospitalodium [Moles/volume] in Serum or PlasmaOrdered By: Rafael Salamanca on 42-36-9445Ybvnol [Moles/Vol]141 mmol/E474-198 [facility] CenterTSH DL <= 0.005 mIU/L QnOrdered By: Rafael Hoy on 15-56-6090MJF Qn1.920 m[IU]/L0.450-4.500[facility] Triiodothyronine (T3) [Mass/volume] in Serum or PlasmaOrdered By: Rafael Salamanca on 63-90-1656L4 [Mass/Vol]81 ng/iE04-462XuarjhtzwAdena Fayette Medical CenterComment on above:Performed at: - [facility] [id number] Director: Tomas Nick PhD, Phone: [phone] (T3) resin uptake testOrdered By: Rafael Salamanca on 55-15-8150A4EE49 %24-39 [facility] CenterUrea nitrogen [Mass/volume] in Serum or Plasma Ordered By: Rafael Salamanca on 82-58-9689Ieem nitrogen [Mass/Vol]24 mg/dL7-25 [facility] CenterWBC Auto (Bld) [#/Vol]Ordered By: Rafael Salamanca on 49-61-3514KVW (Bld) [#/Vol]7.0 10*3/uL3.8-11.6FBethesda North HospitalXR knee RT 2Von 12-49-8303VT knee RT 2V[facility] [employer] Other XR knee RT 2V[facility] [employer] Other XR knee RT [id number] [place] [address] [employer] Other XR knee RT 2VSWilliam V[place] [id number] [employer] Other XR knee RT 2VDr. [facility] [employer] Other XR knee RT 2VSGranville [facility] Center [employer] Other XR knee RT 2VPatient: Nancy Hooper MR#: [id number] [facility] [employer] Other XR knee RT 4N60Xumtu [employer] Other XR knee RT 2VDOB: 1960 Acct:[id number] [employer] Other XR knee RT 2VAge/Sex: 62 / F ADM Date: 08/08/22[place] [employer] Other XR knee RT 2VLoc: SOXD Room: Type: [facility] [employer] Other XR knee RT 2VAttending Dr: Sharla Strange [employer] Other XR knee RT 2VCopies to: Sharla Strange, [facility] HOSPITALManads LLC Other XR knee RT 2VOrdering Provider: Sharla Strange [facility]ConsumerBell Other XR knee RT 2VDate of Service: 08/08/22[place] [employer] Other XR knee RT 2VAccession #: ([id number]) XR/XR wrist RT 2V: Injury of right wrist, initial encounterHerkimer [employer] Other XR knee RT 2V([id number]) XR/XR knee RT 2V: Injury of right knee, initial encounterHerkimer [employer] Other XR knee RT 2VCLINICAL DATA: Patient tripped and fell landing on right side yesterday. Injury at the right wristHerkimer [employer] Other XR knee RT 2Vand knee.[employer] Other XR knee RT 2VRIGHT WRIST - 2 viewsHerkimer [employer] Other XR knee RT 2VCOMPARISON: NoneHerkimer [employer] Other XR knee RT 2VAP and lateral views were obtained. No fracture or dislocation is noted. No definite acute fractureNorth [employer] Other xr knee RT 2Vor dislocation is identified. There is minimal dorsal soft tissue swelling.[employer] Other xr knee RT 2VORDER #: [id number] XR/XR wrist RT 2VNort [employer] Other xr knee RT 2VIMPRESSION:[employer] Other XR knee RT 2VNO ACUTE BONY INJURY WITHIN LIMITS OF THE AVAILABLE VIEWS.[employer] Other XR knee RT 2VRIGHT KNEE - [address]N[facility] [facility] [employer] Other xr knee RT 2VWeightbearing AP and lateral views were obtained. No acute fracture or dislocation is identified.[employer] Other XR knee RT 2VThere is moderate narrowing of the medial tibiofemoral joint compartment. There is tricompartmentNort [employer] Other xr knee RT 2Vmarginal spurring. There is an enthesophyte at the insertion of the quadriceps tendon. A small kneeNort [employer] Other xr knee RT 2Veffusion is seen. There is no focal soft tissue swelling.[employer] Other xr knee RT 2VDEGENERATIVE CHANGES.[employer] Other xr knee RT 2VNO ACUTE BONY INJURY.[employer] Other xr knee RT 2VImpression dictated by: Danette Granger M.D.08/08/2022 8:28 [facility] [employer] Other xr knee RT 2VDictation Location: [id number] [employer] Other xr knee RT 2VTranscribed By: ADAM 08/08/22 0828[place] [employer] Other xr knee RT 2VDictated By: Danette Granger MD 08/08/22 0823[place] [employer] Other xr knee RT 2VSigned By:[employer] Other xr knee RT 2V08/08/22 0828[place] [employer] Other 324-0603Sfjvw-78 PCR ([facility]CAP[facility])on 53-93-3174WDDU-CoV-2 (COVID- 19) RNA TIFFANY+probe Ql (Unsp spec)DetectedCritically abnormalNOT DETECTEDThe The Christ HospitalComment on above:Result Comment: This test is not yet approved or cleared by the [place] FDA. When there are no FDA-approved or cleared tests available, and other criteria are met, FDA can make tests available under an emergency access mechanism called an Emergency Use Authorization (EUA). The EUA for this test is supported by the [employer] of Health and Human Service's declaration that [...] longer be used).Performed By: #### CVDTBH #### [facility] [address] [place] [address] Dr. Rodney BarakatAlbumin [Mass/volume] in Serum or PlasmaOrdered By: Renny Walton on 93-42-1557Bijllur [Mass/Vol]4.0 g/dL3.2-5.5FBethesda North Hospital Basophils Auto (Bld) [#/Vol]Ordered By: Renny Walton on 14-26-3744Afhlllmpi (Bld) [#/Vol]0.1 10*3/uL0.0-0.2FBethesda North HospitalBasophils/100 WBC Auto (Bld)Ordered By: Renny Walton on 88-30-2116Ihfeeseei/100 WBC (Bld)1.0 %.[facility] CenterBlood hemoglobin measurement (mass/volume)Ordered By: Renny Walton on 31-93-9089Ixemdejfhe (Bld) [Mass/Vol]14.8 g/dL11.8-15.4FBethesda North HospitalBlood leukocytes automated count (number/volume)Ordered By: Renny aWlton on 11-85-6844DXP (Bld) [#/Vol]6.5 10*3/uL4.5-11.0[facility] CenterCholesterol [Mass/volume] in Serum or PlasmaOrdered By: Renny Walton on 14-74-7153Xmjuiewgiro [Mass/Vol]189 mg/nA754-732KhmqvlmxvAdena Fayette Medical CenterComment on above:Chol less than 200 mg/dl low risk Chol 201-239 mg/dl borderline risk Chol 240 mg/dl and greater high riskCholesterol in LDL Calc [Mass/Vol]Ordered By: Renny Walton on 72-65-2580Jzzhkyvlytn in LDL [Mass/Vol]113 mg/dL0-100[facility] CenterComment on above:LDL ATP III CLASSIFICATION LDL less than 100 mg/dL Optimal LDL 100-129 mg/dL Near or above optimal LDL 130-159 mg/dL Borderline high LDL 160-189 mg/dL High LDL greater than 189 mg/dL Very highCholesterol in VLDL Calc [Mass/Vol]Ordered By: Renny Walton on 14-15-6472Uzrmrbrcktp in VLDL [Mass/Vol]27 mg/dLAdena Fayette Medical CenterCreatinine and Glomerular filtration rate.predicted panel (S/P/Bld)Ordered By: Renny Walton on 24-85-2648Fbjefqdjps [Mass/Vol]0.63 mg/dL 0.44-1.03[facility] CenterEosinophils Auto (Bld) [#/Vol]Ordered By: Renny Walton on 40-75-6078Hwfdhxlgbhk (Bld) [#/Vol]0.1 10*3/uL0.0-0.45 [facility] CenterEosinophils/100 WBC Auto (Bld)Ordered By: Renny Walton on 57-53-8706Ediyqnptyzu/100 WBC (Bld)1.2 %.[facility] CenterErythrocyte distribution width Auto (RBC) [Ratio]Ordered By: Renny Walton on 82-74-7295Qymijbgmhbz distribution width (RBC) [Ratio]13.9 %11.9-15.3FBethesda North HospitalEstimated glomerular filtration rate (GFR) non- AmericanOrdered By: Renny Walton on 34-22-5378OAS/1.73 sq M.predicted among non- blacks MDRD (S/P/Bld) [Vol rate/Area]> 60 mL/MinAdena Fayette Medical CenterGlobulin Calc (S) [Mass/Vol]Ordered By: Renny Walton on 57-57-6748Hhiorvbc (S) [Mass/Vol]3.3 g/dLAdena Fayette Medical CenterGlucose mean value [Mass/volume] in Blood Estimated from glycated hemoglobinOrdered By: Renny Walton on 76-70-1465Ozutfkj glucose Estimated from glycated hemoglobin (Bld) [Mass/Vol] 120 mg/dLAdena Fayette Medical CenterHematocrit Auto (Bld) [Volume fraction]Ordered By: Renny Walton on 56-15-3019Etfcgfrrrh (Bld) [Volume fraction] 44.9 %34.0-46.4FBethesda North HospitalLaboratory - Chemistry and Chemistry - challengeOrdered By: Renny Walton on 28-46-0935Liuprrx [Mass/Vol]111 mg/fP74-041FmezjpqjsAdena Fayette Medical CenterComment on above:ADA recommended reference rangeLaboratory - Hematology and Cell countsOrdered By: Renny Walton on 41-58-0049TdI7a (Bld) [Mass fraction]5.8 %4.3-5.6FBethesda North HospitalComment on above:Increased risk for diabetes: 5.7 - 6.4 diabetes: >6.4 glycemic control for adults with diabetes: <7.0Nucleated RBC/100 WBC (Bld) [Ratio]0.0 %0-0.5FBethesda North HospitalLymphocytes Auto (Bld) [#/Vol] Ordered By: Renny Walton on 83-83-9740Spfmbbeinzh (Bld) [#/Vol]1.9 10*3/uL1.00-4.8 [facility] CenterLymphocytes/100 WBC Auto (Bld)Ordered By: Renny Walton on 64-39-2335Htrayzujljy/100 WBC (Bld)29.2 %.[facility] ShawH Auto (RBC) [Entitic mass]Ordered By: Renny Walton on 74-40-0298AJJ (RBC) [Entitic mass]30.0 pg24.7-34.3FBethesda North HospitalMCHC Auto (RBC) [Mass/Vol]Ordered By: Renny Walton on 84-00-3983IXDV (RBC) [Mass/Vol]33.0 g/dL 32.0-35.0[facility] CenterMCV Auto (RBC) [Entitic vol]Ordered By: Renny Walton on 12-51-3436ROO (RBC) [Entitic vol]90.8 uY87-898XkgmpfyguAdena Fayette Medical CenterMonocyte %Ordered By: Renny Walton on 64-67-6446Uucfzcin % 139 mg/iR03-522UxcenjqptAdena Fayette Medical CenterComment on above:TRIG ATP III CLASSIFICATION TRIG less than 150 mg/dL Normal TRIG 150-199 mg/dL Borderline high TRIG 200-500 mg/dL High TRIG greater than 500 mg/dL Very high Standard traceable to the Center for Disease Conrtrol and Prevention (CDC) test method.Monocytes Auto (Bld) [#/Vol]Ordered By: Renny Walton on 00-56-1661Yeeiqzedl (Bld) [#/Vol]0.5 10*3/uL0.0-0.8[facility] CenterMonocytes/100 WBC Auto (Bld)Ordered By: Renny Walton on 98-52-7162Bsepwjpxb/100 WBC (Bld)7.4 %. [facility] CenterNeutrophils Auto (Bld) [#/Vol]Ordered By: Renny Walton on 42-19-5754Azegtpnaufw (Bld) [#/Vol]4.0 10*3/uL1.8-7.7FBethesda North HospitalNeutrophils/100 WBC Auto (Bld)Ordered By: Renny Walton on 27-91-8755Vtxdkccrnlj/100 WBC (Bld)61.2 %.[facility] CenterNo Panel InformationOrdered By: Renny Walton on 94-43-4712Wtjgezccr GFR ()> 60 mL/MinAdena Fayette Medical CenterComment on above:GFR estimated reference range: According to KDOQI guidelines, <60 ml/min/1.73m2 is sufficient todiagnose a patient with chronic kidney disease.Nicotine Metabolite NegativeCutoff=25A[facility] CenterComment on above:Performed at: - [facility] [id number] Radio Station Operator: Merary Mccartney MD, Phone: [phone] Creatinine Clearance (ChemN/AFBethesda North HospitalPlatelet mean volume Auto (Bld) [Entitic vol]Ordered By: Renny Walton on 71-54-2054Rbfuigve mean volume (Bld) [Entitic vol]7.3 fL6.3-10.7FBethesda North HospitalPlatelets Auto (Bld) [#/Vol]Ordered By: Renny Walton on 64-98-8537Sfkdjkiif (Bld) [#/Vol]286 10*3/uL 150-450[facility] CenterProtein [Mass/volume] in Serum or Plasma Ordered By: Renny Walton on 12-85-0463Dpqcbcy [Mass/Vol]7.3 g/dL6.1-7.9[facility] CenterRBC Auto (Bld) [#/Vol]Ordered By: Renny Walton on 80-15-0614ULG (Bld) [#/Vol]4.94 10*6/uL3.60-5.00[facility] Hospitalerum or plasma alanine aminotransferase measurement without P-5'-P (enzymatic activiOrdered By: Renny Walton on 02-72-1083JIU No additional P-5'-P [Catalytic activity/Vol]45 U/M31-20HvzdhdgqtMercy Health Anderson Hospitalerum or plasma albumin/globulin mass ratioOrdered By: Renny Walton on 12-16-2021 Albumin/Globulin [Mass ratio]1.2 {ratio}[facility] Hospitalerum or plasma alkaline phosphatase measurement (enzymatic activity/volume)Ordered By: Renny Walton on 71-22-7084KQU [Catalytic activity/Vol]64 U/N80-13UrvvdtzyjMercy Health Anderson Hospitalerum or plasma aspartate aminotransferase measurement (enzymatic activity/volume)Ordered By: Renny Walton on 36-63-7169LJH [Catalytic activity/Vol]25 U/C03-81OlpbfevfjMercy Health Anderson Hospitalerum or plasma calcium measurement (mass/volume)Ordered By: Renny Walton on 91-91-4156Hwxkkxv [Mass/Vol] 9.5 mg/dL8.2-10.2FOhioHealth Grant Medical Centererum or plasma chloride measurement (moles/volume)Ordered By: Renny Walton on 84-56-7588Sobbxoqf [Moles/Vol]101 mmol/F55-476JjltzdewiMercy Health Anderson Hospitalerum or plasma high density lipoprotein (HDL) cholesterol measurementOrdered By: Renny Walton on 80-59-0200Avbgdribhnn in HDL [Mass/Vol]48 mg/vD00-90KmkruphnpAdena Fayette Medical CenterComment on above:HDL CHOL ATP-III CLASSIFICATION Cardiovascular Risk HDL > or equal to 60 mg/dL LOW HDL < 40 mg/dL HIGHSerum or plasma potassium measurement (moles/volume)Ordered By: Renny Walton on 22-12-1868Mlsylwoey [Moles/Vol]4.1 mmol/L3.5-5.1FOhioHealth Grant Medical Centererum or plasma sodium measurement (moles/volume)Ordered By: Renny Walton on 01-35-1222Xmnoij [Moles/Vol]138 mmol/B722-513FualcruhzMercy Health Anderson Hospitalerum or plasma total bilirubin measurement (mass/volume) Ordered By: Renny Walton on 36-33-5800Rimkswejc [Mass/Vol]0.6 mg/dL0.3-1.2 [facility] Hospitalerum or plasma total carbon dioxide measurement (moles/volume)Ordered By: Renny Walton on 20-03-2088BI7 [Moles/Vol] 28.3 mmol/L22.0-30.0[facility] Hospitalerum or plasma total cholesterol/high density lipoprotein (HDL) cholesterol mass ratOrdered By: Renny Walton on [id number].total/Cholesterol in HDL [Mass ratio]3.9 {ratio} <5.0[facility] Hospitalerum or plasma urea nitrogen measurement (mass/volume)Ordered By: Renny Walton on 60-42-0036Kqnw nitrogen [Mass/Vol]22 mg/dL9-23[facility] CenterTS DL <= 0.005 mIU/L QnOrdered By: Renny Walton on 36-66-0818UGT Qn2.52 m[IU]/L0.45-5.33[facility] CenterCOVID-19 SOFIAOrdered By: Renny Walton on 52-01-3280AYBF-CoV+SARS-CoV-2 (COVID-19) Ag IA.rapid Ql (Resp)NegativeNegativeAdena Fayette Medical CenterComment on above:This is a duplicate [place] SARS Antigen (FERN) result to be used for statistical tracking purpose only.No Panel InformationOrdered By: Renny Walton on 73-32-9589ZJEO Antigen (LFIA)[facility] CenterNo Panel Informationon 82-92-9101VufxykEC-[place] [address] Work Phone: No Panel Informationon 16-02-3977WBGeorge Ville [address]A [place] Work Phone: Office Visit (Cardiology)on 92-28-1623Xungus-up visit Diagnoses/Problems Assessed Chest pain (786.50) (R07.9) [...] Metabolic Panel; Status:Active - Retrospective Authorization; Requested for:[id number]; SocHx: Never a smoker Tobacco Use Screening; [...] chest pain. 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 [address] [place] Work Phone: Tobacco use status CPHSb) NoM-[facility]- [place] [address] [place] Work Phone: Vital Signs Date TimeVital SignValuePerforming DwqusegafZayhngbl13-64-2171 10:36-0400 Diastolic blood uiiomslx32 mm[Hg]Rafael Salamanca MD Work Phone: [facility]09-30-2025 10:36-0400 Heart rate59 /Avery Salamanca MD Work Phone: 1(419)[address] [place], [place] 3627709-30-2025 10:36-0400 Respiratory rate16 /Avery Salamanca MD Work Phone: 1(419)[address] [place], [place] 3627709-30-2025 10:36-0400 SaO2% (BldA) [Mass fraction]99 %Rafael Salamanca MD Work Phone: 1(419)[address] [place], [place] 3627709-30-2025 10:36-0400 Systolic blood ywlfmujb558 mm[Hg]Rafael Salamanca MD Work Phone: 1(419)[address] [place], [place] 3627709-30-2025 08:28-0400 Body aqoqpn394.18 cmRafael Salamanca MD Work Phone: 1(419)[address] [place], [place] 3627709-30-2025 08:28-0400 Body yciayx21.4 kgRafael Salamanca MD Work Phone: 1(419)[address] [place], [place] 3627708-25-2025 14:10-0400 Body ratogh556.18 cmRafael Salamanca MD Work Phone: 1(419)[address] [place], [place] 3627708-25-2025 14:10-0400 Body mass index (BMI) [Ratio]33.6 kg/u0QxktqvbRafael Salamanca MD Work Phone: 1(419)[address] [place], [place] 3627708-25-2025 14:10-0400 Body jlokmq84.52 kgRafael Salamanca MD Work Phone: 1(419)[address] [place], [place] 3627708-25-2025 14:10-0400 Diastolic blood jnecfbro50 mm[Hg]Rafael Salamanca MD Work Phone: 1(419)[address] [place], [place] 3627708-25-2025 14:10-0400 Heart rate78 /Avery Salamanca MD Work Phone: 1(419)[address] [place], [place] 3627708-25-2025 14:10-0400 Systolic blood vfqccivw669 mm[Hg]Rafael Salamanca MD Work Phone: 1(419)[address] [place], [place] 3627708-14-2025 08:16-0400 Body wgecrl652.18 cmRafael Salamanca MD Work Phone: [facility]08-14-2025 08:16-0400 Body mass index (BMI) [Ratio]33.6 kg/r1ThzhkerRafael Salamanca MD Work Phone: [facility]08-14-2025 08:16-0400 Body usksba54.52 kgRafael Salamanca MD Work Phone: [facility]07-09-2025 16:21-0400 Body fsbqha847.2 cmJoseph Montague DPM Work Phone: [facility] CenterOwnzrtbrqc74-63-3372 16:21-0400Body mass index (BMI) [Ratio]33.67 kg/l5CqddiwjgJoseph Montague DPM Work Phone: [facility] CenterAlbzwnnnkg67-87-0726 16:21-0400Body genpez38.52 kgJoseph Montague DPM Work Phone: [facility] CenterSmuoovtdkp65-66-5489 16:21-0400Respiratory rate18 /Salomon Montague DPM Work Phone: [facility] CenterMbctbsuggo66-93-9052 08:11-0400Body krfdou114.18 cmAdena [facility] Center04-30-2025 08:11-0400Body mass index (BMI) [Ratio]33.7 kg/a2SswooctgmAdena [facility] Medical Center04-30-2025 08:11-0400Body .9 kgA[facility] Center04-30-2025 08:11-0400Diastolic blood rokbtnum35 mm[Hg][facility]04-30-2025 08:11-0400 Heart rate65 /[facility]04-30-2025 08:11-0400 Respiratory rate18 /[facility]04-30-2025 08:11-0400 SaO2% (BldA) [Mass fraction]97 %[facility]04-30-2025 08:11-0400Systolic blood axzxrpyw908 mm[Hg][facility] 06-12-2024 08:16-0500Body aczccn469.18 cmA[facility]a [facility] 06-12-2024 08:16-0500Body mass index (BMI) [Ratio]32.5 kg/w9MinmkmrymAdena [facility] Medical Center01-29-2025 08:16-0500Body pnbmas25.46 kgA[facility] Center01-29-2025 08:16-0500Diastolic blood euexzhvt25 mm[Hg][facility]01-29-2025 08:16-0500Heart rate76 /[facility]01-29-2025 08:16-0500Respiratory rate16 /[facility]01-29-2025 08:16-3688HyT9% (BldA) [Mass fraction]96 %[facility]01-29-2025 08:16-0500Systolic blood vrnapeds210 mm[Hg][facility]11-08-2024 08:52-0500Body uvbkxo278.2 cmAnneliese Hoyt MD Work Phone: [phone](270)069-[address] [place], [place] 2273211-08-2024 08:52-0500 Body mass index (BMI) [Ratio]32.26 kg/y8SgdoszkAnneliese Hoyt MD Work Phone: 5(516)[address]11-08-2024 08:52-0500 Body qkjecp22.44 kgAnneliese Hoyt MD Work Phone: 3(689)[address]11-08-2024 08:52-0500 Diastolic blood btodhfcb63 mm[Hg]Anneliese Hoyt MD Work Phone: 1(915)[address]11-08-2024 08:52-0500 Heart rate68 /Kunal Hoyt MD Work Phone: 2(533)[address]11-08-2024 08:52-0500 Systolic blood ynrrniis184 mm[Hg]Anneliese Hoyt MD Work Phone: 1(573)[address]10-02-2024 08:01-[address] [facility]10-02-2024 08:01-0400Body mass index (BMI) [Ratio]32 kg/v0YhqhhkfgpAdena Fayette Medical Center10-02-2024 08:01-0400Body zeypqw70.73 kgA[facility]a [facility] Center10-02-2024 08:01-0400Diastolic blood cwtdzcar98 mm[Hg][facility] 02-14-2024 08:01-0400Heart rate78 /[facility] 02-14-2024 08:01-0400Respiratory rate18 /[facility] 02-14-2024 08:01-1518XbL7% (BldA) [Mass fraction]98 %[facility]10-02-2024 08:01-0400Systolic blood uommdaeb032 mm[Hg][facility]08-07-2024 12:22-0400Body nouifu275.18 cmMD Rafael Hoy Work Phone: 1(729)[address] [place], [place] 3627708-07-2024 12:22-0400 Body mass index (BMI) [Ratio]32.3 kg/m2MD Rafael Hoy Work Phone: 1(013)[address] [place], [place] 3627708-07-2024 12:22-0400 Body gohjfw87.55 kgMD Rafael Hoy Work Phone: 1(091)[address] [place], [place] 3627708-07-2024 12:22-0400 Diastolic blood mm[Hg]MD Rafael Salamanca Work Phone: 1(678)[address] [place], [place] 3627708-07-2024 12:22-0400 Heart rate69 /minMD Rafael Hoy Work Phone: 1(452)[address] [place], [place] 3627708-07-2024 12:22-0400 Respiratory rate16 /minMD Rafael Hoy Work Phone: 1(896)[address] [place], [place] 3627708-07-2024 12:22-0400 SaO2% (BldA) [Mass fraction]95 %MD Rafael Salamanca Work Phone: 1(413)[address] [place], [place] 3627708-07-2024 12:22-0400 Systolic blood hamxpzkj413 mm[Hg]MD Rafael Salamanca Work Phone: [facility]06-14-2024 10:38-0400 Body aadrar819.18 cmAdena [facility] Medical Center06-14-2024 10:38-0400Body mass index (BMI) [Ratio]33.5 kg/o3KdokmaqeyAdena [facility]ayette Medical Center06-14-2024 10:38-0400Body .29 kgA[facility] Center06-14-2024 10:38-0400Diastolic blood chrqexyb95 mm[Hg][facility] 10-27-2023 10:38-0400Heart rate76 /[facility] 10-27-2023 10:38-0400Respiratory rate20 /[facility] 10-27-2023 10:38-4488VjU6% (BldA) [Mass fraction]96 %[facility]06-14-2024 10:38-0400Systolic blood gfiedjgu005 mm[Hg][facility]04-24-2024 07:22-0400Body elvsrz265.18 cmA[facility]a [facility] Center04-24-2024 07:22-0400Body mass index (BMI) [Ratio]34.1 kg/m2 [facility]04-24-2024 07:22-0400Body mrojzq82.93 kg [facility]04-24-2024 07:22-0400Diastolic blood gbeacfyn34 mm[Hg][facility]04-24-2024 07:22-0400Heart rate72 /min [facility]04-24-2024 07:22-0400Respiratory rate16 /min [facility]04-24-2024 07:22-1927DvM2% (BldA) [Mass fraction]98 %[facility]04-24-2024 07:22-0400Systolic blood wdoepvuz718 mm[Hg][facility]02-28-2024 07:41-[address] [facility]02-28-2024 07:41-0500Body mass index (BMI) [Ratio]33 kg/m6WtksavtcsAdena [facility] Medical Center02-28-2024 07:41-0500Body mynfkx54.82 kgA[facility]a [facility] Center02-28-2024 07:41-0500Diastolic blood gfufgqgk21 mm[Hg][facility] 07-12-2023 07:41-0500Heart rate76 /minA[facility]a [facility] Center 07-12-2023 07:41-0500Respiratory rate16 /[facility] 07-12-2023 07:41-1272LxX2% (BldA) [Mass fraction]97 %[facility]02-28-2024 07:41-0500Systolic blood mm[Hg][facility]01-17-2024 07:45-0500Body ufkpss230.18 cmHeather Missler Other [employer] Other 01-17-2024 07:45-0500Body mass index (BMI) [Ratio] 34.81 kg/c7Ecutzza Missler Other [employer] Other 01-17-2024 07:45-0500Body .84 kgHeather Missler Other [employer] Other 01-17-2024 07:45-0500Diastolic blood ykgxbjvi38 mm[Hg] Isabel Missler Other [employer] Other 01-17-2024 07:45-0500Respiratory rate18 /minHeather Missler Other [employer] Other 01-17-2024 07:45-6748FiN5% (BldA) [Mass fraction]97 % Isabel Missler Other [employer] Other 01-17-2024 07:45-0500Systolic blood gaklfcbm421 mm[Hg] Isabel Missler Other [employer] Other 12-08-2023 07:15-0500Body .18 cmHeather Missler Other [employer] Other 12-08-2023 07:15-0500Body mass index (BMI) [Ratio] 35.24 kg/d4Snszaxk Missler Other [employer] Other 12-08-2023 07:15-0500Body ygneae913.06 kgHeather Missler Other [employer] Other 12-08-2023 07:15-0500Diastolic blood wfjlipvb49 mm[Hg] Isabel Missler Other [employer] Other 12-08-2023 07:15-0500Respiratory rate18 /minHeather Missler Other [employer] Other 12-08-2023 07:15-0498UhS2% (BldA) [Mass fraction]95 % Isabel Missler Other [employer] Other 12-08-2023 07:15-0500Systolic blood cujsfiyk456 mm[Hg] Isabel Missler Other [employer] Other 11-10-2023 08:37-0500Body ajsiln985.2 cmAnneliese Hoyt MD Work Phone: [facility]11-10-2023 08:37-0500 Body mass index (BMI) [Ratio]34.93 kg/x3MbdqbvmAnneliese Hoyt MD Work Phone: [facility]11-10-2023 08:37-0500 Body guqcyo849.15 kgAnneliese Hoyt MD Work Phone: [facility]11-10-2023 08:37-0500 Diastolic blood mm[Hg]Anneliese Hoyt MD Work Phone: [facility]11-10-2023 08:37-0500 Heart rate64 /minAnneliese Hoyt MD Work Phone: [facility]11-10-2023 08:37-0500 Systolic blood eozqpecx428 mm[Hg]Anneliese Hoyt MD Work Phone: [facility]11-02-2023 08:00-0400 Body .18 cmDawn Fitt Other [employer] Other 11-02-2023 08:00-0400Body mass index (BMI) [Ratio] 34.83 kg/m2Dawn Fitt Other [employer] Other 11-02-2023 08:00-0400Body techqv798.88 kgDawn Fitt Other [employer] Other 10-27-2023 07:45-0400Body ubnbli578.18 cmHeather ler Other [employer] Other 10-27-2023 07:45-0400Body mass index (BMI) [Ratio] 35.13 kg/h2Fhzxcng Missler Other [employer] Other 10-27-2023 07:45-0400Body pxeyac613.74 kgHeather Missler Other [employer] Other 10-27-2023 07:45-0400Diastolic blood vpkdywou13 mm[Hg] Isabel Missler Other [employer] Other 10-27-2023 07:45-0400Respiratory rate18 /minHeather Missler Other [employer] Other 10-27-2023 07:45-4007ZrA9% (BldA) [Mass fraction]97 % Isabel Missler Other [employer] Other 10-27-2023 07:45-0400Systolic blood hxitaeel421 mm[Hg] Isabel Missler Other [employer] Other 09-15-2023 08:15-0400Body alpiwb357.18 cmHeather Missler Other [employer] Other 09-15-2023 08:15-0400Body mass index (BMI) [Ratio]34.8 kg/n2Pgwltve Missler Other [employer] Other 09-15-2023 08:15-0400Body vsbgyl722.79 kgHeather Missler Other [employer] Other 09-15-2023 08:15-0400Diastolic blood xhfnpuhb86 mm[Hg] Isabel Missler Other [employer] Other 09-15-2023 08:15-0400Respiratory rate18 /minHeather Missler Other [employer] Other 09-15-2023 08:15-5119AbC4% (BldA) [Mass fraction]99 % Isabel Missler Other [employer] Other 09-15-2023 08:15-0400Systolic blood styaujsb803 mm[Hg] Isabelher Calller Other [employer] Other 08-23-2023 16:55-0400Body .3 [degF]MD Rafael Salamanca Work Phone: 1(573)[address]08-23-2023 16:55-0400 Diastolic blood btceivhd00 mm[Hg]MD Rafael Salamanca Work Phone: 1(726)[address] [place], [place] 3627708-23-2023 16:55-0400 Heart rate61 /minMD Rafael Salamanca Work Phone: 1(774)[address] [place], [place] 3627708-23-2023 16:55-0400 Respiratory rate18 /minMD Rafael Salamanca Work Phone: 1(088)[address] [place], [place] 3627708-23-2023 16:55-0400 SaO2% (BldA) [Mass fraction]97 %MD Rafael Salamanca Work Phone: 1(658)[address] [place], [place] 3627708-23-2023 16:55-0400 Systolic blood pzxljefc547 mm[Hg]MD Rafael Salamanca Work Phone: 1(757)[address] [place], [place] 3627708-23-2023 05:53-0400 Body qcbecw221.3 kgMD Rafael Salamanca Work Phone: 1(522)[address] [place], [place] 3627708-22-2023 17:09-0400 Body .18 cmMD Rafael Salamanca Work Phone: 1(680)[address] [place], [place] 3627708-22-2023 16:05-0400 Body xdveefiwcqy44.8 [degF]MD Rafael Salamanca Work Phone: 1(151)[address] [place], [place] 3627708-22-2023 16:05-0400 Diastolic blood rirhhfrw90 mm[Hg]MD Rafael Salamanca Work Phone: 1(157)[address] [place], [place] 3627708-22-2023 16:05-0400 Heart rate76 /minMD Rafael Salamanca Work Phone: 1(945)600-[address] [place], [place] 6254108-22-2023 16:05-0400 Respiratory rate20 /minMD Rafael Salamanca Work Phone: 1(601)889-[address] [place], [place] 6254108-22-2023 16:05-0400 SaO2% (BldA) [Mass fraction]98 %MD Rafael Salamanca Work Phone: 1(358)118-[address] [place], [place] 6254108-22-2023 16:05-0400 Systolic blood mm[Hg]MD Rafael Salamanca Work Phone: 1(956)[address]08-22-2023 10:17-0400 Body auokmh587.18 cmMD Rafael Salamanca Work Phone: 1(921)[address]08-22-2023 10:17-0400 Body vxuxkc974.9 kgMD Rafael Salamanca Work Phone: 1(285)627-[address] [place], [place] 6254108-04-2023 09:15-0400 Body rqsyjh442.18 cmHeather ler Other [employer] Other 08-04-2023 09:15-0400Body mass index (BMI) [Ratio] 36.38 kg/r0Gfkpjxa Missler Other [employer] Other 08-04-2023 09:15-0400Body arffke812.37 kgHeather Missler Other [employer] Other 08-04-2023 09:15-0400Diastolic blood tofwudei81 mm[Hg] Isabelher Kent Other [employer] Other 08-04-2023 09:15-0400Respiratory rate18 /minHeather Missler Other [employer] Other 08-04-2023 09:15-4997EcT8% (BldA) [Mass fraction]98 % Isabel Kent Other [facility] [employer] Other 08-04-2023 09:15-0400Systolic blood qbeotbls003 mm[Hg] Isabel Kent Other [facility] [employer] Other 06-10-2022 08:38-0400Body babcmu255.18 cmDouglas Tonya Hoy Work Phone: 1(790)[phone]-Uzvli [facility] [address] [place] Work Phone: 1(594) 874-586006-10-2022 08:38-0400Body mass index (BMI) [Ratio] 36.81 kg/m2Qtuadgv Tonya Hoy Work Phone: [phone]-Shtrx [facility] [address] [place] Work Phone: 1(877)[phone] 08:38-0400Body surface area Derived from formula2.17 v9Ogyldhw Tonya Hoy Work Phone: 1(712)[phone]-Bysfg [facility] [address] [place] Work Phone: 1(379)[phone] 08:38-0400Body cdhpam892.6 kgDouglas M Hoy Work Phone: 1(959)[phone]-Kzfye [facility] [address] [place] Work Phone: 1(036)[phone] 08:38-0400Diastolic blood nnoxbago40 mm[Hg] Rafael M Hoy Work Phone: 1(408)[phone]-Xpxqg [facility] [address] [place] Work Phone: 1(224)451-459-836193-70175185-21-2130 08:38-0400Diastolic blood fkmveohp90 mm[Hg] Rafael M Hoy Work Phone: 1(550)[phone]-Itzff [facility] [address] [place] Work Phone: 1(762)[phone] 08:38-0400Heart rate63 /minDouglas M Hoy Work Phone: 1(270)[phone]-Jlnxn [facility] [address] [place] Work Phone: 1(319) 377-794406-10-2022 08:38-0400Systolic blood xacoqfot471 mm[Hg] Rafael Salamanca Work Phone: 1(011)[phone]-Hnqqy [facility] [address] [place] Work Phone: 1(186) 558-807806-10-2022 08:38-0400Systolic blood mhoybzer336 mm[Hg] Rafael Salamanca Work Phone: 1(848)[phone]-Plzwr [facility] [address] [place] Work Phone: 1(679) 428-323905-25-2022 00:00-012637 1Douglkathleen Salamanca Work Phone: 1(265)[phone]-Qobiu [facility] [address] [place] Work Phone: Comment on above:[id number] Encounters Encounter DateEncounter TypeCare ProviderFacilityStart: 02-11-2025 End: 12-44-7636kmosocnmkhYlrpkazkv L LyFacility:[facility] Hospitaltart: 99-67-6623Bbt-patient / Non-visitCatherine L Ly DO-[facility] Work Phone: Start: 02-10-2025 End: 66-44-6226tsbzoudlllHfbmdpk M Hoy MD Work Phone: [facility] Work Phone: Start: 02-10-2025 End: 98-19-6945Ozxtwpq encounter procedureJacquedaniel Ruiz [facility] Work Phone: Start: 01-06-2025 End: 95-36-3345hlkfvaxsugIzxupjs M Hoy MD Work Phone: [facility] Work Phone: Start: 01-06-2025 End: 20-63-7960Pndhbcl encounter procedureCatherine L Ly DO-[facility] Work Phone: Start: 12-26-2024 End: 63-60-1704uslzhsymiiIpzzbyx M Hoy MD Work Phone: [facility] Work Phone: Start: 12-26-2024 End: 93-66-4134Fpvecle encounter procedureRobert Marcelino Castaneda MD-[facility] Work Phone: Start: 12-24-2024 End: 74-74-6689Iqkrgpe encounter procedureRafael Castaneda MD-Lab [facility] Work Phone: Start: 12-24-2024 End: 60-22-7292izcmngicpgHcuviyp M Hoy MD Work Phone: [facility] Work Phone: Start: 12-20-2024 End: 33-40-3191Gbkvqqh encounter procedureRafael Castaneda MD-Lab [facility] Work Phone: Start: 12-20-2024 End: 30-26-0319Xtysbuqb ReferredRenny Finch [facility]Start: 12-20-2024 End: 20-49-6778gujcaxtimwDudltru M Hoy MD Work Phone: [facility] Work Phone: Start: 12-03-2024 End: 78-13-2758Yettbje encounter procedureRafael Castaneda MD-Lab [facility] Work Phone: Start: 12-03-2024 End: 60-31-3905jcvzslakixAgwpsvi M Hoy MD Work Phone: [facility] Work Phone: Start: 12-03-2024 End: 83-19-6415zcswukwcruIvldmqk R NILLFacility:[facility] Hospitaltart: 12-03-2024 End: 61-87-8233Kuwmnaz encounter procedureMichael R NILL [phone]-VmoveH[facility] [place] Start: 30-79-3859xpgxviersfNnzzilt NILLFacility: NorwalkStart: 62-67-3893jzqzgxndkwDhzlism NILLFacility: [place]vueStart: 11-23-2024 End: 58-86-3775Mwxtbgd encounter procedureRafael Castaneda MD-Ultrasound [place] Work Phone: Start: 11-23-2024 End: 21-88-3564ehjxihoxzwTmfpcfy M Hoy MD Work Phone: [facility] Work Phone: Start: 11-21-2024 End: 56-75-0875Nupisue encounter procedureRafael Castaneda [facility]: 11-21-2024 End: 17-86-8100fmdbxtfrioRmsaupo M Hoy MD Work Phone: [facility] Work Phone: Start: 11-20-2024 End: 19-92-7162Xuuqyn outpatient visit 15 minutesNickey Montague DPM Work Phone: [facility] [place] PODComment on above:Capsulitis of metatarsophalangeal (MTP) joint of left foot (Primary Dx); Bone spur of left foot; DJD (degenerative joint disease), ankle and foot, leftStart: 11-20-2024 End: 85-94-1192qzhsfrpvmpLFOEVYEX A BROWNNot AvailableStart: 11-20-2024 End: 96-08-4996Hhwpbd flowsheetNickey Estrada Brown DPM Work Phone: [facility] [place] PODStart: 11-20-2024 End: 11-60-4563Uffvma flowsheetNickey Estrada Brown DPM Work Phone: [facility] [place] PODStart: 11-06-2024 End: 54-05-3792Pugxkr outpatient new 30 minutesJoseph Montague DPM Work Phone: [facility] [place] PODComment on above:DJD (degenerative joint disease), ankle and foot, left (Primary Dx); Bone spur of left foot; Capsulitis of metatarsophalangeal (MTP) joint of left footStart: 11-06-2024 End: 52-29-4084qlxbdfuaazYVNVFFPK A BROWNNot AvailableStart: 11-06-2024 End: 67-36-5091Rcccjn flowsheetJoseph Montague DPM Work Phone: [facility] [place] PODStart: 11-06-2024 End: 97-48-7044Cinzxi Frannie Montague DPM Work Phone: [facility] [place] PODStart: 10-16-2024 End: 34-43-5808Euhyxkc encounter procedureRafael Salamanca MD Work Phone: [facility]-CT Scan [place] Work Phone: Start: 10-16-2024 End: 07-89-3250mfvcyqdzgbRoyirmd M Hoy MD Work Phone: [facility] Work Phone: Start: 09-27-2024 End: 07-15-6153Ewkdycr encounter procedureRafael Salamanca MD Work Phone: [facility]-XRay [place] Work Phone: Start: 09-27-2024 End: 17-28-1799zvjqgrihmoJnlrjfi M HoyFacility:[facility] Start: 09-11-2024 End: 30-06-0536avfpylsvszKmvylvgafLutheran Hospital Work Phone: Start: 09-11-2024 End: 89-25-4843Cjhqhnh encounter procedureAtrium Health Cabarrus Physician GroupSAINT [facility] Work Phone: Start: 06-12-2024 End: 68-96-4897dcojlyhkjeShkojezikLutheran Hospital Work Phone: Start: 06-12-2024 End: 44-25-0162Vfnwlyd encounter procedureAtrium Health Cab[facility] Physician Group-[facility] Work Phone: Start: 03-22-2024 End: 21-97-3040Furxgf outpatient visit 15 minutesAnneliese Hoyt MD Work Phone: uh [facility] on above:Precordial pain (Primary Dx); Essential hypertension, benign; Diverticulosis; BMI 32.0-32.9,adult; Never smoked tobaccoStart: 03-22-2024 End: 73-14-3691uwautadpwrFNHHQJGGrady Memorial HospitalStart: 02-14-2024 End: 30-83-0927psxxlfqplrEebcqmdkeLutheran Hospital Work Phone: Start: 02-14-2024 End: 17-11-8589Jqzcfks encounter procedureAt[facility] Health [facility] Physician [facility] Work Phone: Start: 01-19-2024 End: 38-51-4887Cso-patient / Non-visitAtrium Health [facility] Physician [facility] Work Phone: Start: 12-20-2023 End: 65-43-4159gjnamwesvdZF Rafael M Hoy Work Phone: [facility] Work Phone: Start: 12-20-2023 End: 10-24-5597Mzbipct encounter procedureMD Rafael Hoy Work Phone: [facility] Work Phone: Start: 11-13-2023 End: 41-05-0771kmeiqhxxneRW Rafael M Hoy Work Phone: [facility] Work Phone: Start: 11-13-2023 End: 72-56-5476Uiosblwt ReferredMD Rafael Hoy Work Phone: [facility] CtrPenn State Health Rehabilitation HospitalStart: 10-27-2023 End: 78-49-2580rorpgohhiiFeosccfsnMagruder Memorial Hospital Work Phone: Start: 10-27-2023 End: 77-52-2453Nkwudap encounter procedureAtrium Health Cabarrus Physician GroupSAINT [facility] Work Phone: Start: 09-06-2023 End: 26-98-3605sinhxlerjxPlgcvldxvLutheran Hospital Work Phone: Start: 09-06-2023 End: 63-16-0529Kujxbjb encounter procedureAtrium Health Cabarrus Physician GroupSA[facility] Work Phone: Start: 07-12-2023 End: 71-54-2813Dpbsfpw encounter procedureAtrium Health Cabarrus Physician GroupSAINT [facility] Work Phone: Start: 05-31-2023(wmnempf/u) [employer] Employee F/Scooter [facility] ClinicStart: 05-31-2023 End: 05-31-5638ajzglhyudfZlbebyi Donte Other [employer] Other Start: 04-21-2023(wmnempf/u) [employer] Employee F/[facility] ClinicStart: 04-21-2023 End: 59-64-7028titkbzaxgxZervqeh Donte Other no[employer]ells[employer] Other Start: 03-24-2023 End: 46-13-0960Pmvqom outpatient visit 15 minutesAnneliese Hoyt MD Work Phone: [facility] HospitalComp[facility] on above:Precordial pain (Primary Dx); Essential hypertension, benign; BMI 34.0-34.9,adult; Encounter to discuss test resultsStart: 03-16-2023([facility]) K[place]BER[place] Initial ProviderDawgonzalez Quiroz Coordinated Care ClinicStart: 03-16-2023 End: 86-95-0530nhmhsbyemuFdsh Fitt Other noSellsy Other Start: 03-14-2023 End: 33-74-5343pepbzslweoDMATQOHKettering Health Behavioral Medical Centertart: 03-10-2023(wmnempf/u) [employer] Employee F/[employer] [facility] ClinicStart: 03-10-2023 End: 84-34-1598diiglvhelsRpwieby Missler Other [employer] Other Start: 02-14-2023 End: 44-19-8507duojcxlsmrLPJQKTGKettering Health Behavioral Medical Centertart: 01-27-2023(wmnempf/u) [employer] Employee F/Scooter [facility] Coordinated Care ClinicStart: 01-27-2023 End: 53-21-0356ixasmzbozaOrqlawe Missler Other [facility] [employer] Other Start: 28-69-9618Gbejxnpgz encounterDodemetria Salamanca Work Phone: [phone]-Ddxqu[address] [place] [address] Heart-[facility] 250 DO Work Phone: Start: 01-09-2023 End: 82-57-7749soxagxvktoDpmzlvd Missler Other [facility] [employer] Other Start: 41-45-2533Shyhciyjt encounterHeanenita CallEastern [facility] Coordinated Care ClinicStart: 34-02-4305ddrnkuimlrTaBelem SalamancaFacility:9090Start: 01-03-2023 End: 51-25-9793Jmhpdlrkmt and management of inpatientMD Rafael Reedangelito Work Phone: [facility] [place] [facility] Work Phone: Start: 01-03-2023 End: 95-29-4447lqdcolyfwch encounterMD Rafael Salamanca Work Phone: [facility] Work Phone: Start: 12-16-2022(WMNEMPNEW) WMN Mew EmployeeHeaFresno Surgical Hospital Coordinated Care ClinicStart: 12-16-2022 End: 83-48-0406zkqadffjmuGchwfxq Donte Other [facility] [employer] Other Start: 21-15-9850Zllwxfqpqi RecurringMD Rafael Hoy Work Phone: [facility]-Weight Management Work Phone: Start: 11-08-2022 End: 42-58-8332znvpcxatzaJN Rafael M Hoy Work Phone: [facility] Work Phone: Start: 11-08-2022 End: 54-41-8378Xumzqgcn ReferredMD Rafael Hoy Work Phone: [facility]-Employee Benefit ScreeningStart: 08-23-2022 End: 40-98-2494tcrzldhaigVeerpgre [place] Other [place] [employer] Other Start: 62-45-3233Tfneor outpatient visit 15 minutes Sharla Tillman OrthopedicsStart: 08-16-2022 End: 92-00-8915qkmsgpjtdqIY Rafael M Hoy Work Phone: [facility] Work Phone: Start: 08-16-2022 End: 56-58-5487Bzfauuc encounter procedureMD Rafael Hoy Work Phone: [facility]-Lab [place] Work Phone: Start: 08-15-2022 End: 65-11-8907txywpglaizOU RAFAEL HOY .Facility:F9Dipmv: 36-09-5269Urjcgr outpatient new 30 minutesSharla Tillman OrthopedicsStart: 08-08-2022 End: 65-21-6478fdytqhfuuhMG Rafael M Hoy Work Phone: [facility] Work Phone: Start: 08-08-2022 End: 06-63-5156Ulnwuku encounter procedureMD Rafael Hoangelito Work Phone: [facility]-XRay [place] [facility] Start: 79-39-9535Zbaux Gato Castaneda Cheikh Work Phone: [phone]-Aaqqd [place] [facility] 250 DO Work Phone: Start: 04-13-2022 End: 64-51-6271geeczrlnvjRO RAFAEL SALAMANCA .Facility:H4Fhblk: 12-16-2021 End: 60-38-2566Jafbrqkz ReferredMD Rafael Salamanca Work Phone: [facility]-Employee Benefit ScreeningStart: 12-09-2021 End: 94-62-7937Tvupxsi encounter procedureMD Rafael Hoangelito Work Phone: [facility]-[place] SwabStart: 44-46-5816Aiozi Gato Castaneda Cheikh Work Phone: [phone]-Cgfbr [place] [facility] [address] [place] Work Phone: Start: 10-27-2021 End: 96-36-5473Yaslldo encounter procedureMD Rafael Salamanca Work Phone: [facility]-Electrodiagnostics Start: 05-04-2021([facility] C Vac) [facility] Covid VaccineThomas[facility] Coordinated Care ClinicStart: 05-04-2021 End: 83-07-5734hsckmvidopHrem Fitt Other [place] Other Procedures DateProcedureProcedure DetailPerforming ClinicianStart: 51-16-1670Vwmfj radiography of pelvisDodemetria Salamanca MD Work Phone: Start: 96-21-9809R-ray of right knee, four views Rafael Salamanca MD Work Phone: Start: 24-15-7231Yqavr Sho Salamanca MD Work Phone: Start: 69-14-5611Xfkob Sho Salamanca MD Work Phone: [phone]: 83-68-4064Dwwkq Sho Salamanca MD Work Phone: Start: 82-58-7418Dgiymasdjxcfksw of abdomenRafael Salamanca MD Work Phone: Start: 76-79-0875CO ankle without contrastRafael Salamanca MD Work Phone: [phone]: 51-87-8742FT of left footRafael Salamanca MD Work Phone: [phone]: 79-60-7434P-ray of left footRafael Salamanca MD Work Phone: Start: 10-63-4447PX ANGIO CORONARY ART WITH HEARTFLOW IF SCORE >30%MOAMAURI INMANIStart: 58-19-0316EJ CARDIAC SCORING WO IV CONTRASTMOURCHIP INMANIStart: 13-88-0711Swjifyvr tomography angiography of abdominal and/or pelvic blood vesselMD Rafael Hoy Work Phone: Start: 16-54-8255PI of chestMD Rafael Hoy Work Phone: [phone]-: 68-41-6545Fvnec X-ray of right wristMD Rafael Hoy Work Phone: Start: 72-61-8165D-ray of right kneeMD Rafael Hoy Work Phone: [phone]-: 69-41-4551Wwyiivuocqmw myocardial perfusion stress studyMD Rafael Hoy Work Phone: Start: 93-17-1719PpjgwsgknldWqqxvlw Traboulssi MD Work Phone: Start: 47-12-5672UvqepmvncurEqnyran NILL Start: 16-61-2276MkfvnbrdeenrooaibbfbndtenxQlwlyer NILL Start: 43-45-5592xpgg knee arthroscopyMichael NILL Arthroscopy of kneeMichael NILL Comment on above:rightx 2ColonoscopyDouglas M Hoy Work Phone: Excision of neoplasmDougporfirio Castaneda Hoangelito Work Phone: Comment on above:off collar bone;Operative procedure on kneeDouglas M Hoy Work Phone: Reduction mammoplastyDouglas M Hoy Work Phone: Reduction mammoplastyMichael NILL SARS Antigen (LFIA)MD Hall Cheikh Work Phone: 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 collar boneMichael NILL Plan of Treatment DateCare ActivityDetailAuthorStart: 78-00-6552AFP High Risk: (Elderly (60+) or Population) (1 - 1-dose 75+ series)RSV High Risk: (Elderly (60+) or Population) (1 - 1-dose 75+ series)[facility] Start: 25-34-4374FlahhrwbgMercy Health Anderson Hospitaltart: 91-36-2032Xeotxxbqc vaccinationInfluenza Vaccine (#1)[facility] HealthcareStart: 23-39-0666Tdxdj radiography of pelvisXR pelvis 1-2VMercy Health Anderson Hospitaltart: 97-00-2718C-ray of right knee, four viewsXR knee RT 4V*[facility] Hospitaltart: 78-34-6943KZ Knee - right 4 ViewsMercy Health Anderson Hospitaltart: 60-76-0885WY Pelvis 1 or 2 ViewsAdena Fayette Medical Center Start: 12-24-2024 End: 23-43-4034Nifth cultureMercy Health Anderson Hospitaltart: 12-24-2024 Bacteria identified in Urine by CultureUrine CultureMercy Health Anderson Hospitaltart: 83-43-3564Hpuvhpog identified in Urine by CultureUrine Culture [facility] Hospitaltart: 37-18-2833Lsxnh cultureMercy Health Anderson Hospitaltart: 06-81-8650Vdgpalki identified in Urine by Culture Urine CultureMercy Health Anderson Hospitaltart: 28-75-4448Qedyu culture [facility] Hospitaltart: 11-20-2024 End: 96-68-2389Wgjqbde encounter procedureNOMS [place] PODComment on above:Capsulitis of metatarsophalangeal (MTP) joint of left foot (Primary Dx); Bone spur of left foot; DJD (degenerative joint disease), ankle and foot, leftStart: 11-06-2024 End: 29-08-5805Zeusodk encounter eguwasugc47/25/2025 3:50 PM EDT Office Visit [facility] [place] [facility] [address] [place] [address] Joseph Montague DPM [address] [address] ArrivedNOMS [place] PODComment on above:ArrivedStart: 01-14-2024 COVID-19 Vaccine ( season)COVID-19 Vaccine ( season) [facility] CenterStart: 07-66-1083LMT, Provider: Anneliese Hoyt, Status: Pen, Time: 1:20 PMFUV, Provider: Anneliese Hoyt, Status: Pen, Time: 1:20 [facility] 250 DO Work Phone: Start: 50-26-1156BtlzwxjgyAdena Fayette Medical Center Start: 21-96-2886Fpjdowyk to cardiologistMercy Health Anderson Hospitaltart: 67-84-4711Kovajoiz admissionMercy Health Anderson Hospitaltart: 11-08-2022 [facility] Hospitaltart: 36-82-8983TddwiystuMercy Health Anderson Hospitaltart: 38-76-2527DJZ, Provider: Anneliese Hoyt, Status: Pen, Time: 9:20 AMFUV, Provider: Anneliese Hoyt, Status: Pen, Time: 9:20 AMMP-[facility] [address] [place] Work Phone: Start: 12-16-2021 End: 26-66-0340Rtvsivmv ReferredDeparted ReferredSelect [facility]- Employee Benefit ScreeningStart: 83-89-1145Rammpxuvl for malignant neoplasm of breastMammogramUnMercy Health: 05-89-2300KKGDXZEM, Provider: KATHIA BEARDEN CLINICAL SUPPORT SPECIALIST 1,[id number], Status: Pen, Time: 1:00 PM NURSEVST, Provider: KATHIA BEARDEN CLINICAL SUPPORT SPECIALIST 1,[id number], Status: Pen, Time: 1:00 PM-[facility] [address] [place] Work Phone: Start: 52-71-8353YEFZM-19 Vaccine (4 - Moderna series) COVID-19 Vaccine (4 - Moderna series)[facility]: 75-38-4754Cbkntc Vaccines (1 of 2)Zoster Vaccines (1 of 2)[facility]: 45-41-0223WZO Vaccines (1 of 1 - Standard series)MMR Vaccines (1 of 1 - Standard series)[facility]: 1990 Screening for malignant neoplasm of cervixNOMS HealthcareStart: 1984 DTaP/Tdap/Td Vaccines (1 - Tdap)DTaP/Tdap/Td Vaccines (1 - Tdap)[facility]: 51-78-5372Csqcrqlxo for malignant neoplasm of cervixUnMercy Health: 13-90-8497Zvonssuvp C screening Hepatitis C ScreeningKindred Hospital [facility]ima: 23-54-3071VOX screeningHIV ScreeningKindred Hospital Lima: 91-94-7345Sugwd panelLipid PanelUnMercy Health: 09-59-8252Wilvawlzc for malignant neoplasm of colonUnMercy Health: 1960 Yearly Adult PhysicalYearly Adult PhysicalUnSouthern [facility] Glucose measurement estimated from glycated hemoglobinAdena Fayette Medical CenterHemoglobin A1c measurementAdena Fayette Medical CenterPatient EducationStomach polyps High-fiber diet Gastritis - Discharge instructions Hiatal hernia - Discharge instructions [facility] Diverticulosis Discharge Instructions [facility] Hemorrhoids Discharge Instructions Know your Meds [facility] Work Phone: Patient referralSelect [facility]ty [facility] Work Phone: Thyrotropin [Units/volume] in Serum or PlasmaAdena Fayette Medical CenterThyroxine (T4) free index in Serum or Plasma by calculationAdena Fayette Medical CenterThyroxine measurementAdena Fayette Medical CenterTriiodothyronine (T3) [Mass/volume] in Serum or Plasma [facility] CenterTriiodothyronine resin uptake (T3RU) in Serum or PlasmaAdena Fayette Medical Center Immunizations Immunization DateImmunizationNotesCare QicgqaffUumbnhso62-29-3759jfmyedvbn, seasonal, injectable, preservative Farhad Salamanca MD Work Phone: [facility]10-14-2024influenza virus vaccine, unspecified formulationJoseph Montague DPM Work Phone: [phone]-YqwkgH[facility] Ifeanyi 48-84-5162sjskffwnk, injectable, quadrivalent, preservative freeAnneliese Hoyt MD Work Phone: [facility] Work Phone: [phone]-91 Tomás Ayon Other [facility]02-02-2021Moderna COVID-19 Vaccine 100 MCG/0.5ML Intramuscular SuspensionRafael Salamanca Work Phone: [facility]01-05-2021Moderna COVID-19 Vaccine 100 MCG/0.5ML Intramuscular Suspensionuglas Tonya Salamanca Work Phone: [facility]09-01-2020influenza, injectable, quadrivalent, preservative Farhad Salamanca Work Phone: [phone]-ApvzvSteven [facility] [address] [place] Work Phone: [phone] qqhlzdsqa-B9Z7-31, preservative-free, injectableRafael Salamanca Work Phone: [phone]-Asdsk [place] [facility] [address] [place] Work Phone: Payers DatePayer CategoryPayerPolicy [id number] Health Insurance [id number] Care (Private) [facility] [id number] [id number] [id number] 2.840.1.259061.3.57[id number] 2.16.840.1.258568.3.57[id number] 2.16.840.1.080412.3.57[id number] 2.16.840.1.992993.3.57[id number] 2.16.840.1.599528.3.57[id number] 2.16.840.1.013691.3.57[id number] 2.16.840.1.489550.3.57[id number] 2.16.840.1.096604.19 Self-paySelf [id number]'s Compensation [facility] [id number] Social History DateTypeDetailFacilityStart: 03-24-2023 End: 90-60-2314Mqfvzffy alcohol occasionallyConsumes alcohol occasionallyNorth [place] Other Start: 03-24-2023 End: 89-68-4332Xwh Assigned At [facility]tart: 09-30-2021 End: 16-53-8325Irrwfki smoking status NHISNever smoked tobacco (finding) [facility] Hospitaltart: 55-75-0507Kkb Assigned At [facility]tart: 03-24-2023 End: 42-03-5359Sknemyp use and exposureSmokeless tobacco non-userUnSouthern [place] Medical Center Work Phone: Start: 03-24-2023 End: 25-41-3607Hboetne intakeLifetime non-drinker (finding)[facility] Work Phone: Start: 80-94-3034Cek Assigned At BirthNot on file [facility] Work Phone: Start: 03-14-2023 End: 22-80-8924Jgxgdmph to SARS-CoV-2 (event)Not sureUnSouthern [place] Medical CenterStart: 08-26-2009 End: 30-93-6756XneNcsixz (finding)[facility] Medical CenterTobacco smoking status NHISTobacco smoking consumption unknownNOMS HealthcareStart: 11-06-2024 End: 72-01-9104Ksovyjxto beverage intakeCurrent drinker of alcohol (finding)[facility] HealthcareTobacco smoking statusNeAdena Fayette Medical Center General Surgery [facility] Surgery [place] [facility] Equipment Procedure CodeEquipment CodeEquipment Original TextEquipment IdentifierDates [id number]: 02-24-2020 End: 36-81-3540Lyg Needle, Diabetic (Ulticare Pen Needle) 31 gauge x 3/16 needleStart: 54-42-6452Juf Needle, Diabetic (Ulticare Pen Needle) 31 gauge x 3/16 needleStart: 32-56-0108Azj Needle, Diabetic (Ulticare Pen Needle) 31 gauge x 3/16 needleStart: 56-21-7991Apf Needle, Diabetic (Ulticare Pen Needle) 31 gauge x 3/16 needleStart: 05-64-5170Czm Needle, Diabetic (Ulticare Pen Needle) 31 gauge x 3/16 needleStart: 07-07-2023 End: 99-80-6976Sev Needle, Diabetic (Ulticare Pen Needle) 31 gauge x 3/16 needleStart: 07-07-2023 End: 98-95-0384Jik Needle, Diabetic (Ulticare Pen Needle) 31 gauge x 3/16 needleStart: 07-07-2023 End: 98-98-7416Fil Needle, Diabetic (Ulticare Pen Needle) 31 gauge x 3/16 needleStart: 07-07-2023 End: 01-30-9324Cdf Needle, Diabetic (Ulticare Pen Needle) 31 gauge x 3/16 needleStart: 07-07-2023 End: 61-77-1621Wop Needle, Diabetic (Ulticare Pen Needle) 31 gauge x 3/16 needleStart: 07-07-2023 End: 67-95-5154Zay Needle, Diabetic (Ulticare Pen Needle) 31 gauge x 3/16 needleStart: 07-07-2023 End: 96-71-5776Wng Needle, Diabetic (Ulticare Pen Needle) 31 gauge x 3/16 needleStart: 07-07-2023 End: 96-61-6784Glc Needle, Diabetic (Ulticare Pen Needle) 31 gauge x 3/16 needleStart: 07-07-2023 End: 44-14-1747Xml Needle, Diabetic (Ulticare Pen Needle) 31 gauge x 3/16 needleStart: 07-07-2023 End: 94-25-5010Zyc Needle, Diabetic (Ulticare Pen Needle) 31 gauge x 3/16 needleStart: 07-07-2023 End: 32-61-0958Suz Needle, Diabetic (Ulticare Pen Needle) 31 gauge x 3/16 needleStart: 07-07-2023 End: 48-36-1370Qmw Needle, Diabetic (Ulticare Pen Needle) 31 gauge x 3/16 needleStart: 07-07-2023 End: 49-46-8488Gtu Needle, Diabetic (Ulticare Pen Needle) 31 gauge x 3/16 needleStart: 07-07-2023 End: 63-21-6326Lqw Needle, Diabetic (Ulticare Pen Needle) 31 gauge x 3/16 needleStart: 07-07-2023 End: 43-61-2230Xni Needle, Diabetic (Ulticare Pen Needle) 31 gauge x 3/16 needleStart: 07-07-2023 End: 12-20-2023 Goals DatePatient GoalDesired Activity/State Functional Status FmasSgbuufoxtmFszaezBfbxlgac23-98-5256Hgyscrxhqy statusPatient at Baseline [facility] Work Phone: [phone]sllzbkb statusPatient at Baseline [facility] Work Phone: Mental Status VvmeQirfwyhicfHxspsrTazfimld77-28-5399Jkdbjworu functionCognitive Status [facility] at BaselineFisher[facility] Work Phone: [phone]egyik functionCognitive Status Patient at BaselineFisher[facility] Work Phone: Clinical Notes 05-04-2021 to 12-26-2024 Note Date & ZiwkCqmlDzlhwpdd24-74-1445 Evaluation note* Diagnosis Onset Date Resolution Status Admit Date Primary osteoarthritis of right knee acuteAugust 2024 7:28am [facility] Work Phone: [phone] 633-860708-14-2025 Evaluation note* Diagnosis Onset Date Resolution Status Admit Date Primary osteoarthritis of right knee acuteAugust 2024 7:28amDiverticulitisacuteAugust 2024 2:05pmGERD (gastroesophageal reflux disease)acuteAugust 2024 2:05pmEncounter for immunizationacuteSeptember 2024 10:45am [facility] Work Phone: 1([phone]) [phone] NoteGeneral Surgery Office/Clinic Note Chief Complaint consultation [...] no dysphagia; patient reports EGD/colonoscopy done at [facility] 5 years ago, reportedly [...] E&M of New Patient Moderate 45-59 Min 40023 2. Left flank pain (R10.9: Unspecified abdominal pain) see # 1 Ordered: CT Abdomen/Pelvis w/ Contrast E&M of New Patient Moderate 45-59 Min 32684 3. Nausea (R11.0: Nausea) see # 1 Ordered: CT Abdomen/Pelvis w/ Contrast E&M of New Patient Moderate 45-59 Min 46969 4. Abdominal bloating (R14.0: Abdominal distension (gaseous)) see # 1 Ordered: CT Abdomen/Pelvis w/ Contrast E&M of New Patient Moderate 45-59 Min 26501 5. Frequent loose stools (R19.7: Diarrhea, unspecified) see # 1 Ordered: CT Abdomen/Pelvis w/ Contrast E&M of (more content not included)...[facility] Memorial HospitalComment on above:Result Comment: Electronically Signed By: ZAYRA PACHECO, Anthony Barrera\Date and Time Signed: 12/03/24 09:16 [id number] Radiology Diagnostic study note [facility] [place] [address] Ultrasound Report Signed Patient: Nancy Hooper MR#: [id number] : 1960 Acct:[id number] Age/Sex: 64 / F ADM Date: 5 Loc: Room: Type: [facility] Attending Dr: Rafael Salamanca MD Ordering Provider: [...] Degroot M.D. 11/23/2024 5:13 PM Dictation Location: [employer]17 Tech: Ramila Su Transcribed By: ADAM 11/23/241712 Dictated By: Shai Degroot II, MD 11/23/241711 Signed By: 11/23/241712 [facility] Work Phone: 1(169) 526-480507-09-2025 History of Present illness Narrative* Joseph Montague [...] 10/16/24 CT/CT foot LT wo con: M79.672 ([id number]) CT/CT ankle LT wo con: M79.672 CT [...] midfoot exostectomy in the future Discussed possible bxhk-vzl-jzvrjem arch supports and patient may consider and continues ibuprofen and ice p.r.n. and may consider walking boot if not improved in the next few weeks Joseph Montague DPM documented in this encounterEllis Fischel Cancer CenterUuhkqwpzeh89-30-5035 History of Present illness Narrative* Joseph Montague [...] 10/16/24 CT/CT foot LT wo con: M79.672 ([id number]) CT/CT ankle LT wo con: M79.672 CT [...] Patient may continue with conservative treatments including yaao-tou-wvlhboo anti- inflammatories and other treatments suggested today. Patient may want to be s cheduled for surgical intervention in the near future. Discussed possibly left midfoot exostectomy in the future Joseph Montague DPM documented in this encounterEllis Fischel Cancer CenterZkkxutetfq40-76-5452 Radiology Diagnostic study [facility]SUM[facility] [place] [address] [place] [address] CT Scan Report Signed Patient: Nancy Hooper MR#: [id number] : 1960 Acct:[id number] Age/Sex: 64 / F ADM Date: 5 Loc: CT Room: Type: [facility] Attending Dr: Rafael Salamanca MD Copies to: Rafael Salamanca MD~ Ordering Provider: Rafael Salamanca MD Date of Service: 10/16/24 CT/CT foot LT wo con: M79.672 ([id number]) CT/CT ankle LT wo con: M79.672 CT [...] Degroot M.D. 10/16/2024 4:27 PM Dictation Location: [place] [address] Transcribed By: [facility] 10/16/24 1627 Dictated By: Shai Degroot II, MD 10/16/24 1601 Signed By: 10/16/24 1627 [facility] Work Phone: 1(996) 536-893804-30-2025 Evaluation note* Diagnosis Onset Date Resolution Status Admit Date Arthritis acuteApril 2024 8:10amGERD (gastroesophageal reflux disease)acuteApril 2024 8:10amObesity, Class I, BMI 30-34.9acuteApril 2024 8:10am PrediabetesacuteApril 2024 8:10amStrokeacuteApril 2024 8:10am Encounter for weight managementnoneactiveApril 2024 8:10am [facility] Work Phone: [phone] History of Present illness Narrative* Anneliese Hoyt [...] exam, discussion and plan. documented in this [facility] Work Phone: [phone]) 971-537711-08-2024 Instructions* Patient Instructions* Regina Nieto LPN - [...] exercise. PRN Same medications documented in this encounterRegional Medical Center Work Phone: 1(184) 816-686501-17-2024 Evaluation note* Encounter Date Diagnosis Assessment Notes [...] May,Encounter for weight management (ICD-10 - Z76.89) [employer] Other 12-08-2023 Evaluation note* Encounter Date Diagnosis [...] constipation. Not currently using any type of efwt-spw-rrqyore stool softener or fiber supplement. She continues [...] Apr,Encounter for weight management (ICD-10 - Z76.89) [employer] Other 11-10-2023 History of Present illness Narrative* [...] to discuss test results documented in this encounterRegional Medical Center Work Phone: 1([phone]) 596-498111-10-2023 Instructions* Patient Instructions* Ino Torres MA - [...] time of your visit. documented in this encounterRegional Medical Center Work Phone: [phone] 344-202211-02-2023 Evaluation note* Encounter Date Diagnosis Assessment Notes [...] start small to build motivation and momentum [employer] Other 10-27-2023 Evaluation note* Encounter Date Diagnosis [...] Feb,Encounter for weight management (ICD-10 - Z76.89) [employer] Other 09-15-2023 Evaluation note* Encounter Date Diagnosis [...] cancer she had her surgery performed at [facility]. Reinforced that itis is responsible [...] Jan,Encounter for weight management (ICD-10 - Z76.89) [employer] Other 08-23-2023 History and physical note Author Nabil Baker [facility] January 04, 2023 2:58amNote Date/TimeAugust 2022 6:25pm[place] [address] Hospitalist H&P Signed Patient: Nancy Hooper MR#: [id number] : 1960 Acct:[id number] Age/Sex: 62 / F Adm Date: 3 Loc: Room: [address] [place] [address] Type: ADM INOo Attending Dr: Nabil Baker [...] care Discussed with:?the medical team, the patient [facility] Medical History Benign tumor [...] % (Auto) 15.0 % (.) 01/03/23 10:20 [place] % (Auto) 8.4 % (.) 01/03/23 10:20 Eos % (Auto) 0.7 % (.) 01/03/23 10:20 Baso % (Auto) 1.0 % (.) 01/03/23 10:20 Nucleat RBC Rel Count 0.1 /100 WBC (0-0.5) 01/03/23 10:20 Neut # (Auto) 6.2 x10E3/uL (1.8-7.7) 01/03/23 10:20 Lymph # (Auto) 1.2 x10E3/uL (1.00-4.8) 01/03/23 10:20 [place] # (Auto) 0.7 x10E3/uL (0.0-0.8) 01/03/23 10:20 [...] pH 6.5 (5.0-9.0) 01/03/23 15:03 Ur Specific [place] 1.024 (1.001-1.030) 01/03/23 15:03 Urine Protein Negative [...] 01/04/23 0258 [facility] Work Phone: [phone]) 937-273208-04-2023 Evaluation note* Encounter Date Diagnosis Assessment Notes [...] Strongly encouraged to take advantage of our quality coordinator available at [facility] that can help work around [...] K57.92) Dec,Impaired fasting glucose (ICD-10 - R73.01) [employer] Other 04-11-2023 Evaluation note* Encounter Date Diagnosis [...] M25.561) Aug,Right wrist pain (ICD-10 - M25.531) [employer] Other 03-27-2023 Evaluation note* Encounter Date Diagnosis [...] M25.561) Jul,Right wrist pain (ICD-10 - M25.531) [employer] Other 12-21-2021 Evaluation note* Encounter Date Diagnosis Assessment Notes Treatment Notes Treatment Clinical Notes Apr, Encounter for immunization (ICD- 10 - Z23) Patient presents for COVID-19 vaccination BOOSTER. Pre-screening form answers evaluated with patient. Patient denies current illness or allergic reaction to component of COVID-19 vaccine. Patient provided with current copy of EUA. [employer] Other Consult note Author Kajal Loear [facility] January 04, 2023 4:27pmNote Date/TimeAugust 2022 4:24pmJohn[place] [address] Cardiology Consult Note Signed Patient: Nancy Hooper MR#: [id number] : 1960 Acct:[id number] Age/Sex: 62 / F Adm Date: 3 Loc: Room: [address] [place] [address] Type: ADM INOo Attending Dr: Nabil Baker MD Copies to: MD Kajal Zelaya MD, [facility] Nabil Baker MD~ Cardiology HPI History of Present Illness Consult Date: 01/04/23 Reason for Consult: Chest pain HPI: Ms. Hooper is a 62 year old female who works in [employer] [facility] [employer] and who is being seen at [...] All other review of system essentially unremarkable [facility] Medical History Benign tumor [...] <Electronically signed by MD PETTY Loera> 01/04/23 1626 [facility] Work Phone: Discharge summary Author Nabil Baker [facility] January 05, 2023 1:20amNote Date/TimeAugust 2022 3:34pmJohn[place] [address] Discharge Summary Signed Patient: Nancy Hooper MR#: [id number] : 1960 Acct:[id number] Age/Sex: 62 / F Adm Date: 3 Loc: Room: [address] [place] [address]: Nabil Baker MD Copies to: [...] Appearance Clear, Urine pH 6.5, Ur Specific [place] 1.024, Urine Protein Negative, Urine Glucose (UA) [...] signed by Nabil Baker MD> 01/05/23 0120 [facility] Work Phone: Evaluation + Plan note No data available for this section [facility] [place] Evaluation noteNo assessment information available [facility] Work Phone: Evaluation note* Diagnosis Onset Date Resolution Status Chest pain acuteHypertensionchronic [facility] Work Phone: Evaluation noteNo InformationNorth [place]ip[place] Other Evaluation note* Diagnosis Precordial pain- Primary Essential hypertension, benign BMI 34.0-34.9,adult Encounter to discuss test results Other specified counseling documented in this encounter [facility] Work Phone: Evaluation note* Diagnosis Onset Date Resolution Status Arthritis acuteGERD (gastroesophageal reflux disease)acuteObesity, Class I, BMI 30-34.9 acutePrediabetesacuteStrokeacuteEncounter for weight managementnoneactive ArthritisacuteGERD (gastroesophageal reflux disease)acuteObesity, Class I, BMI 30-34.9acutePrediabetesacuteStrokeacuteEncounter for weight managementnon[facility] Work Phone: Evaluation note* Diagnosis Onset Date Resolution Status Arthritis acuteGERD (gastroesophageal reflux disease)acuteObesity, Class I, BMI 30-34.9 acutePrediabetesacuteStrokeacuteEncounter for weight managementnon[facility] Work Phone: Evaluation note* Diagnosis Precordial pain- Primary Essential hypertension, benign Diverticulosis Diverticulosis of colon (without mention of hemorrhage) BMI 32.0-32.9,adult Never smoked tobacco documented in this encounter [facility] Work Phone: Evaluation note* Diagnosis Onset Date Resolution Status Admit Date Arthritis acuteJanuary 2024 8:06amGERD (gastroesophageal reflux disease)acuteJanuary 2024 8:06amObesity, Class I, BMI 30-34.9acuteJanuary 2024 8:06am PrediabetesacuteJanuary 2024 8:06amStrokeacuteJanuary 2024 8:06am Encounter for weight managementnoneactiveJanuary 2024 8:06am [facility] Work Phone: Evaluation note* Diagnosis Onset Date Resolution Status Admit Date Arthritis acuteApril 2024 8:10amGERD (gastroesophageal reflux disease)acuteApril 2024 8:10amObesity, Class I, BMI 30-34.9acuteApril 2024 8:10am PrediabetesacuteApril 2024 8:10amStrokeacuteApril 2024 8:10am Encounter for weight managementnoneactiveApril 2024 8:10am [facility] Work Phone: Evaluation note* Diagnosis DJD (degenerative joint disease), ankle and foot, left- Primary Bone spur of left foot Capsulitis of metatarsophalangeal (MTP) joint of left foot [facility] Diagnosis Capsulitis of metatarsophalangeal (MTP) joint of left foot- Primary Bone spur of left foot DJD (degenerative joint disease), ankle and foot, left documented in this encounter [facility] Healthcare[facility]* Diagnosis Onset Date Resolution Status Admit Date Primary osteoarthritis of right knee acuteAugust 2024 7:28am [facility] Work Phone: History and physical note Author Nabil Baker [facility] January 04, 2023 2:58amNote Date/TimeAugust 2022 6:25pmJohn[place] [address] Hospitalist H&P Signed Patient: Nancy Hooper MR#: [id number] : 1960 Acct:[id number] Age/Sex: 62 / F Adm Date: 3 Loc: Room: [address] [place] [address] Type: ADM INOo Attending Dr: Nabil Baker [...] care Discussed with:?the medical team, the patient [facility] Medical History Benign tumor [...] % (Auto) 15.0 % (.) 01/03/23 10:20 [place] % (Auto) 8.4 % (.) 01/03/23 10:20 Eos % (Auto) 0.7 % (.) 01/03/23 10:20 Baso % (Auto) 1.0 % (.) 01/03/23 10:20 Nucleat RBC Rel Count 0.1 /100 WBC (0-0.5) 01/03/23 10:20 Neut # (Auto) 6.2 x10E3/uL (1.8-7.7) 01/03/23 10:20 Lymph # (Auto) 1.2 x10E3/uL (1.00-4.8) 01/03/23 10:20 [place] # (Auto) 0.7 x10E3/uL (0.0-0.8) 01/03/23 10:20 [...] pH 6.5 (5.0-9.0) 01/03/23 15:03 Ur Specific [place] 1.024 (1.001-1.030) 01/03/23 15:03 Urine Protein Negative [...] signed by Nabil Baker MD> 01/04/23 0258 [facility] Work Phone: History general Narrative - Reported* Type Description Date Medical History HTN Medical HistorydiverticulitisMedical HistoryAnxietySurgical HistoryCollarbone tumor removedSurgical HistoryKnee surgery [id number] HistoryBreast Reduction Hospitalization HistorySee AboveHospitalization HistoryPneumoniaHospitalization HistoryDiverticulitisHospitalization HistoryParalegic Migraines [employer] Other Hisjiqb general Narrative - Reported* Type Description Date Medical History HTN Medical HistorydiverticulitisMedical HistoryAnxietyMedical HistoryGERDMedical HistoryKidney stonesMedical HistoryMigraine headacheMedical HistoryStroke 2009 Surgical HistoryCollarbone tumor removedSurgical HistoryKnee surgery [id number] HistoryBreast ReductionHospitalization HistorySee AboveHospitalization History PneumoniaHospitalization HistoryDiverticulitisHospitalization HistoryParalegic Migraines [employer] Other Hiszdbv general Narrative - Reported* Type Description Date Medical History HTN Medical HistorydiverticulitisMedical HistoryAnxietyMedical HistoryGERDMedical HistoryKidney stonesMedical HistoryMigraine headacheMedical HistoryStroke 2009 Surgical HistoryCollarbone tumor removedSurgical HistoryKnee surgery [id number] HistoryBreast ReductionHospitalization HistorySee AboveHospitalization History PneumoniaHospitalization HistoryDiverticulitisHospitalization HistoryParalegic MigrainesHospitalization HistoryFR ER Chest pain12/2022 [employer] Other Hospital Discharge instructions No data available for this section [facility] [place] [facility] Discharge instructions Additional Instructions DISCHARGE INSTRUCTIONS [...] NOT operate machinery such as power tools, [employer]s, Buffer[employer]wers, Amaya Gaminging machines, etc. for 24 hours. - Avoid [...] NOT operate machinery such as power tools, [employer]n mowers, snow blowers, sewing machines, etc. for [...] -Follow up with PCP. - Office number [phone]. [facility] Work Phone: Progress note No data available for this section [facility] [place] Reason for referral (narrative)* Consultation (Routine) - AuthorizedSpecialtyDiagnoses / ProceduresReferred By ContactReferred To ContactCardiology Diagnoses Precordial pain Essential hypertension, benign Procedures Follow Up In Cardiology Anneliese Hoyt MD [address] [place] [address] 2, [address] [address] Anneliese Hoyt MD [address] [place] [address] 2, [address] [place] [address] Referral IDStatusReasonStart DateExpiration DateVisits RequestedVisits [id number]/10/202311/ [facility] Work Phone: Reason for referral (narrative)No reason for referral information availableFisher[facility] Work Phone: Reason for visit Narrative* Consultation (Routine) - ClosedSpecialtyDiagnoses / ProceduresReferred By ContactReferred To Contact Podiatry Diagnoses Pain in left foot Procedures SD OFFICE/OUTPATIENT NEW LOW MDM 30 MINUTES Rafael Salamanca MD [address] [place] [address] Phone: tel:[phone] fax: Joseph Montague DPM [address] [address] Phone: tel: fax: Referral IDStatusReasonStart DateExpiration DateVisits RequestedVisits [id number]/10/20259/ [facility] Healthcare Summary Purpose Family History [...] for VisitChest pain Hypertension Chief Complaint [employer] follow up Reason for Visit Arthritis GERD [...] section and content) DATE CREATED AUTHOR 10/23/2021 [employer] DATE CREATED AUTHOR AUTHOR'S ORGANIZ ATION 08/20/2022 [facility] DATE CREATED AUTHOR AUTHOR'S ORGANIZ ATION 01/07/2023 [facility] DATE CREATED AUTHOR AUTHOR'S ORGANIZ ATION 03/19/2023 [facility] DATE CREATED AUTHOR AUTHOR'S ORGANIZ ATION 03/24/2024 [facility] DATE CREATED AUTHOR AUTHOR'S ORGANIZ ATION 11/24/2024 [facility] DATE CREATED AUTHOR AUTHOR'S ORGANIZ ATION 12/05/2024 [facility] DATE CREATED AUTHOR AUTHOR'S ORGANIZ ATION 02/16/2025 [facility] REASON FOR VISIT (unrecogniz ed section and content) ReasonCommentsHospital Follow-upReasonCommentsAnnual ExamSpecialtyDiagnoses / ProceduresReferred By ContactReferred To ContactCardiology Diagnoses Precordial pain Essential hypertension, benign Procedures Follow Up In Cardiology Anneliese Hoyt MD [address] [place] [address] 2, [place] [address] Phone: tel: fax: Anneliese [facility]oyt MD [facility] 2, [facility] [address] [id number] Phone: tel: fax:[phone] Referral IDStatusReasonStart DateExpiration DateVisits RequestedVisits [id number]/10/202311/[id number] EDL Care Teams (unrecognized sec tion and [...] MemberRelationshipSpecialtyStart DateEnd Date Rafael Salamanca MD [address] [facility] [place] [address] PCP - General05/15/99 Team Status: Inactive Member [...] DateEnd Date Rafael Salamanca MD [address] [place] [address] PCP - [facility]05/15/99 Team Status: Inactive Member Role Status Dates [...] MemberRelationshipSpecialtyStart DateEnd Date Rafael Salamanca MD [address] [place] [address] [facility]11/06/24Team MemberRelationshipSpecialtyStart DateEnd Date Rafael Salamanca MD [address] [place] [address] PCP - Generalmily Medicine11/06/24Team MemberRelationshipSpecialtyStart DateEnd Date Rafael Salamanca MD [address] [place] [address] [facility]11/06/24 Team Status: Inactive [...] Team Status: Inactive Member Role Status yS Salamanca MD Primary Care Provider Active Start: [...] February 10, 2025 End: February 10, 2025Jacqueline Joseph , RPHAttending ProviderActiveStart: February 10, 2025 End: [...] BE BASED ON THE PRIMARY CLINICAL RECORDS. [employer] [facility]. provides no warranty or guarantee of the accuracy or completeness of information in this document.
--- NOTE | 2025-04-17 11:58 | PC.NURSE ---
Nursing Note Cardiac Stress Test Reviewed: Medication, allergies and patient history reviewed. Stress Test: [ ]? Patient tolerated stress test well. [ x]? Patient unable to tolerate walking on treadmill. Switched to Lexiscan stress test. [ ]? No chest pain noted per patient [ x]? Chest pain that resolved prior to leaving stress lab. [ x]? No dyspnea noted. [ ]? Dyspnea that resolved prior to leaving stress lab. [ x]? Patient left stress lab asymptomatic and hemodynamically stable. [ ]? Patient taken to the Emergency Room due to non-resolving symptoms following stress test. [ ]? Patient achieved target heart rate. [ ]? Patient unable to achieve target heart rate. [ ]? Aminophylline administered as reversal agent to Lexiscan (Regadenoson). [ ]? Nitro administered. Nursing Comments:Patient unable to ambulate on treadmill. Patient states has been having SOB and chest pain intermittently for a few weeks with latest episode on 04/16. Patient denies wanting to go to ER. Switched to Lexiscan. Patient tolerated with mild chest pressure that subsided after 3 minutes. Patient wheeled to cafe in wheelchair with no symptoms.
[2025-04-17] MEDS: REGADENOSON 0.4 MG/5 ML SYRINGE IV (12:01)
--- NOTE | 2025-04-18 18:22 | P.STRESS_ITS ---
Stress Test Stress Test Allergies Allergy/AdvReac Type Severity Reaction Status Date / Time topiramate (From Topamax) Allergy Severe Vomiting Verified 04/17/25 11:04 Penicillins Allergy Mild Hives Verified 04/17/25 11:04 sulfamethoxazole (From Allergy Mild Hives Verified 04/17/25 11:04 Bactrim) trimethoprim (From Bactrim) Allergy Mild Hives Verified 04/17/25 11:04 azithromycin Allergy Unknown Unknown Verified 04/17/25 11:04 doxycycline Allergy Unknown Unknown Verified 04/17/25 11:04 erythromycin base Allergy Unknown Unknown Verified 04/17/25 11:04 amoxicillin AdvReac Mild Hives Verified 04/17/25 11:04 cefuroxime (From Ceftin) AdvReac Mild Hives Verified 04/17/25 11:04 morphine AdvReac Mild Redness of Verified 04/17/25 11:04 Skin Requesting physician: Rafael Dumont Procedure: This was a Lexiscan stress test with myocardial perfusion imaging performed at the [facility] on 04/17/2025. Intravenous line was secured. The patient was attached to electrocardiographic monitoring. Baseline vital signs and ECG were obtained. Lexiscan 0.4 mg was administered intravenously followed by administration of Cardiolite. The patient then went on to obtain myocardial perfusion imaging. Resting heart rate was 71 bpm and peak heart rate was 94 bpm. Resting blood pressure was 146/102 and peak blood pressure was 151/57. General Information: Reason for Stress Test: Atrial fibrillation. Cardiac History and Risk Factors: Hypertension. Resting 12 - Lead Electrocardiogram: Sinus rhythm with premature supraventricular complexes. Stress Test: Protocol: Pharmacologic stress with Lexiscan. Exercise Capacity: Not assessed. Blood Pressure Response: Resting hypertension. Rhythm: Sinus rhythm with no arrhythmias. ST - Response: No ischemic ST changes seen. Patient Response: Chest pressure and shortness of breath. Interpretation: 1. No evidence of ischemic ST changes seen following infusion of Lexiscan. 2. Myocardial perfusion images will be reported separately.
== END 2025-04-17 10:01 | disposition home or self-care (01) ==
LOC: NM 10:00
PROVIDERS: PCP Family Medicine; Visit Provider Family Medicine
DX: I48.91 Unspecified atrial fibrillation (principal)
CPT/HCPCS: 78452; 93017; 93306; A9500; J2785